=== PATIENT | female | born 1975 | race Caucasian/White ===

== ENCOUNTER → 2016-04-29 | Outpatient (CLI) | payer OTHER ==
[~2016-04-29] MED LIST: ABIL5TAB5 PO; ALBU17IN INH; ASPI81TA85 PO; BACT800T5 PO; BUPIVACAINE HCL 0.25% 30 ML VIAL As Ordered ONE; CALC250T PO; CETI10TA PO; CIPR500T3 PO; DITR1TAB PO; DOCU100C PO; DULO30CA PO; FENO145T PO; FENO150C PO; FLAG500T PO; FLON0.054; FURO20TA2 PO; GABA-279 PO; GABA-283 PO; GABA300C3 PO; GABA600T PO; INSULANT SC; ISOVUE-M 300 61% 15ML VIAL (Q9967) As Ordered ONE; LIDOCAINE 1% SDV INJ 30 ML VIAL As Ordered ONE; LOSA25TA8 PO; METF1000 PO; METF500T PO; MONT10TA2 PO; MULT1TAB8 PO; NEUR300C PO; NORCOTAB PO; PERC5TAB6 PO; PHEN15CA58 PO; RANI15TA PO; ROBA500T PO; SIMV20TA2 PO; SPIR50TA2 PO; TIOT18INH INH; TOPA50TA7 PO; TRAD5TAB PO; TRIAMCINOLONE ACETONIDE SUSP 40 MG/ML VIAL (J3301) As Ordered ONE; VITA400C29 PO; VITA500T3 PO; VITAPOW41 PO; diazePAM 5 MG TAB As Ordered ONE; oxyCODONE 5MG TAB As Ordered ONE
--- NOTE | 2016-04-29 15:14 | REP ---
Partial SI joint series: Two views. History: Bilateral SI joint injection for pain. 8 seconds of fluoroscopy time is reported. Findings: Two fluoroscopically obtained intraprocedural spot radiographs document needle position and contrast injection associated with SI joint injection procedures. Signed by Biju Bui MD 04/29/2016 04:50 P
--- NOTE | 2016-05-02 01:37 | ECWPNPC ---
PATIENT NAME: STELLA TAVERAS : 1975 GENDER: FEMALE VISIT DATE: 04/29/2016 DISCHARGE DATE: 04/29/16 1415 VISIT LOCKED DATE TIME: PHYSICIAN: AMELIA LAI RESOURCE: AMELIA LAI REASON FOR APPOINTMENT 1. BILATERAL SIJ HISTORY OF PRESENT ILLNESS HISTORY OF PRESENT ILLNESS: PAIN THE PATIENT DESCRIBES THE PAIN... FALL RISK SCREENING: SCREENING :NO FALLS IN THE PAST YEAR CURRENT MEDICATIONS TAKING ABILIFY 5 MG TABLET 1 TABLET ORALLY ONCE A DAY, NOTES: 03/19/163001-02-02 TAKING CETIRIZINE HCL 10 MG TABLET ORALLY ONCE A DAY, NOTES: 02-26-172099 TAKING CYMBALTA 90 MG CAPSULE DELAYED RELEASE PARTICLES 1 CAPSULE ORALLY 30MG CAP AND 60 MG CAP DAILY, NOTES: 04-28-162099 TAKING FLONASE 50 MCG/ACT SUSPENSION 1 SPRAY IN EACH NOSTRIL NASALLY ONCE A DAY, NOTES: 1 MONTH AGO TAKING LOSARTAN POTASSIUM 25 MG TABLET ORALLY DAILY, NOTES: 04-28-16799 TAKING MONTELUKAST SODIUM 10 MG TABLET 1 TABLET IN THE EVENING ORALLY ONCE A DAY, NOTES: 04-28-16799 TAKING DITROPAN XL 10 MG TABLET EXTENDED RELEASE 24 HOUR 1 TABLET ORALLY ONCE A DAY, NOTES: 04-28-16799 TAKING OMEPRAZOLE 40 MG CAPSULE DELAYED RELEASE 1 CAPSULE ORALLY BID, NOTES: 04-28-162099 TAKING VITAMIN B12 500 TABLET 500 MCG ORALLY DAILY, NOTES: 04-28-16799 TAKING MULTIVITAMIN 1 TABLET CHEWABLE 1 TAB(S) ORALLY DAILY, NOTES: 04-28-161829 TAKING SUMATRIPTAN SUCCINATE 50 MG TABLET 1 TABLET NEEDED ORALLY DIRECTED, NOTES: 1 YEAR TAKING CALCIUM CITRATE + 630 MG TABLET 2 TABLET WITH MEALS ORALLY TWICE A DAY, NOTES: TAKING LASIX 40 MG TABLET 1 TABLET ORALLY BID, NOTES: 04-28-16799 TAKING METFORMIN HCL 500 MG TABLET 1 TABLET WITH MEALS ORALLY TWICE A DAY, NOTES: 04-28-162099 TAKING IRON 1 TAB ORAL DAILY, NOTES: 04-28-161829 TAKING COLACE 100 MG CAPSULE 1 CAPSULE NEEDED ORALLY 3X/DAY, NOTES: 04-28-162099 TAKING GABAPENTIN 600 MG TABLET 1 CAPSULE ORALLY TID, NOTES: 04-28-162099 TAKING OXYCODONE HCL 5 MG TABLET 1 TABLET ORALLY EVERY 6 HRS PRN FOR PAIN MDD2, NOTES: 04-28-162099 TAKING NAPROXEN 500 MG TABLET 1 TABLET NEEDED ORALLY EVERY 12 HRS, NOTES: 04-28-162099 MEDICATION LIST REVIEWED AND RECONCILED WITH THE PATIENT PAST MEDICAL HISTORY DIABETES HYPERTENSION HYPERCHOLESTEREMIA OBESITY GERD (GASTROESOPHAGEAL REFLUX DISEASE) GASTRIC BYPASS ALLERGIES SULFA (FOR ALLERGY USE ONLY): RASH: ALLERGY SOCIAL HISTORY GENERAL: TOBACCO USE ARE YOU A:NONSMOKER LEARNING BARRIERS / SPECIAL NEEDS ORIENTED TO PLAN OF CARE: PATIENT, PAIN MANAGEMENT PATIENT, ORIENTED TO PLAN OF CARE: PATIENT, PAIN MANAGEMENT PATIENT. NEW PATIENT PAIN DIARY TODAY'S VISITNOTES FROM 0-10, WHAT LEVEL IS YOUR PAIN TODAY?0 PAIN CLINIC PFS, CLERGY, PUBLIC HEALTH REFERRALS PFS REFERRAL NEEDED?NO CLERGY REFERRAL NEEDED?NO PUBLIC HEALTH REFERRAL NEEDED?NO WAS THE PROVIDER NOTIFIED OF ANY PERTINENT INFO?NO PFS REFERRAL NEEDED?NO CLERGY REFERRAL NEEDED?NO PUBLIC HEALTH REFERRAL NEEDED?NO WAS THE PROVIDER NOTIFIED OF ANY PERTINENT INFO?NO REVIEW OF SYSTEMS CONSTITUTIONAL: ANY CHANGE IN YOUR MEDICAL CONDITION? NO . CHILLS NO . FEVER NO . INFECTION: DO YOU HAVE NEW INFECTIONS? NO . DO YOU HAVE HISTORY OF MRSA? NO . MUSCULOSKELETAL: ANY NEW PATTERNS OF PAIN OR NUMBNESS? NO . GASTROENTEROLOGY: ANY NEW CHANGE IN BOWEL CONTROL? NO . GENITOURINARY: ANY NEW CHANGE IN BLADDER CONTROL? NO . IS THERE A CHANCE YOU COULD BE ? NO . HEMATOLOGY/LYMPH: DO YOU TAKE ANY BLOOD THINNERS? (FOR EXAMPLE- COUMADIN, PLAVIX, AGGRENOX, PLATEL, PRADAXA, OR XARELTO) NO . WHEN WAS YOUR LAST DOSE? DATE: TIME: . NEUROLOGY: HAVE YOU FALLEN IN THE PAST 6 MONTHS? NO . ANY NEW EXTREMITY NUMBNESS OR WEAKNESS? NO . CARDIOLOGY: DO YOU HAVE A PACEMAKER OR DEFIBRILLATOR? NO . RESPIRATORY: HAVE YOU BEEN SICK IN THE PAST WEEK? NO . FEVER NO . FLU LIKE SYMPTOMS? NO . COUGH NO . INTEGUMENTARY: DO YOU HAVE ANY RASHES OR OPEN SORES? NO . ALLERGIC/IMMUNO: ARE YOU ALLERGIC TO SHELLFISH OR IV DYE? NO . ANY NEW ALLERGIES? NO . PSYCHIATRIC: DO YOU HAVE THOUGHTS OF HURTING YOURSELF OR SOMEONE ELSE? NO . ARE YOU ABUSED, NEGLECTED, OR IN AN UNSAFE ENVIRONMENT? NO . ENDOCRINOLOGY: ARE YOU DIABETIC? YES . OTHER: DO YOU NEED ANY PRESCRIPTIONS? NO . IF YES, PLEASE LIST: ____ . ANY NEW PROBLEMS WITH YOUR MEDICATIONS? NO . WHEN DID YOU LAST EAT? 04-28-16 2300 . WHEN DID YOU LAST DRINK? 04-29-16 0800 . WHAT DID YOU LAST DRINK? WATER . NAME OF PERSON DRIVING YOU HOME? PETER . DO YOU HAVE ANY OTHER QUESTIONS OR CONCERNS NO . REVIEWED BY: PROVIDER: . VITAL SIGNS WT 334.2 LBS, HT 60.5 IN, BMI 64.19 INDEX, BP 130/83 MM HG, HR 67 /MIN, RR 16 /MIN, TEMP 97.6 F, OXYGEN SAT % 96, NA INITIALS TL 1207, REVIEWED BY: CM. ASSESSMENTS SACROILIITIS, NOT ELSEWHERE CLASSIFIED - M46.1 (PRIMARY) PROCEDURES PN SI PRE PROCEDURE DIAGNOSIS SACROILIITIS, SACROILIAC JOINT DYSFUNCTION POST PROCEDURE DIAGNOSIS SACROILIITIS, SACROILIAC JOINT DYSFUNCTION PROCEDURE BILATERAL SACROILIAC JOINT BLOCK SURGEON DR. 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 I EVALUATED THE PATIENT AND REVIEWED THE CHART. I WENT OVER THE RISKS, ALTERNATIVES, AND BENEFITS ASSOCIATED WITH THIS PROCEDURE. THE PATIENT WOULD LIKE TO PROCEED AND GAVE CONSENT TO PERFORM THE PROCEDURE. THE PATIENT DENIES UNEXPLAINABLE WEIGHT LOSS, FEVER, CHILLS, OR NEW CHANGES IN URINARY OR BOWEL CONTROL DESCRIPTION OF PROCEDURE THE PATIENT WAS BROUGHT TO THE PROCEDURE ROOM AND PLACED IN THE PRONE POSITION. THE LUMBOSACRAL AREA WAS CLEANED WITH CHLORAPREP SOLUTION AND DRAPED ASEPTICALLY. THE PROCEDURE WAS DONE UNDER STERILE CONDITIONS. I CHECKED LATERALITY AND THE LEVEL WHERE THE PROCEDURE WAS GOING TO BE PERFORMED WITH THE PATIENT AND THE SUPPORTING STAFF AT THE MOMENT OF THE TIME OUT IN THE PROCEDURE ROOM. UNDER FLUOROSCOPIC GUIDANCE, TARGET POINT WAS SELECTED AT THE LOWER BORDER OF THE RIGHT AND LEFT SACROILIAC JOINT. TARGET POINT WAS SELECTED AFTER MEDIAL ROTATION AND TILT OF THE MAGNIFIER OF THE C-ARM. LIDOCAINE WAS USED TO NUMB THE SKIN AND SUBCUTANEOUS TISSUE BELOW IT. A SPINAL NEEDLE, 22-GAUGE, WAS ADVANCED UNDER FLUOROSCOPIC GUIDANCE AND FOLLOWING PATIENT FEEDBACK UNTIL THE TARGET AREA WAS TOUCHED. THE POSITION OF THE NEEDLE WAS VERIFIED WITH AP AND LATERAL VIEWS. AFTER PROPER POSITION OF THE NEEDLE WAS ACHIEVED, ISOVUE M DYE 30%, 0.25 ML, WAS INJECTED SHOWING SPREAD OF THE DYE. THEN, A SOLUTION OF 20 MG OF KENALOG WAS INJECTED IN RIGHT JOINT WITH 3 ML OF BUPIVACAINE 0.125%. THERE WAS NO EVIDENCE OF BLOOD, PARESTHESIA OR CEREBROSPINAL FLUID DURING THE PROCEDURE. THE PATIENT WAS SENT TO THE RECOVERY ROOM. THE PATIENT WAS MOVING THE EXTREMITIES AND DOING WELL. THERE WAS NO COMPLICATION DURING THE PROCEDURE. FLUOROSCOPY TIME WAS 8 SECONDS POST PROCEDURE NOTE THE PATIENT WILL BE SEEN IN A FOLLOW UP IN THE NEXT FEW WEEKS. INSTRUCTIONS WERE GIVEN, QUESTIONS WERE ANSWERED, AND THE PATIENT EXPRESSED UNDERSTANDING AND AGREED WITH THE PLAN. I, RAQUEL SONI, DOCUMENTED THE ABOVE INFORMATION ACTING A SCRIBE FOR DR. LAI. I, DR. LAI, HAVE REVIEWED THE ABOVE DOCUMENT, SCRIBED BY RAQUEL SONI, AND I VERIFY THAT IT IS [facility]NO[facility] FLUORO GUIDANCE (PAIN)[id number] PROCEDURE CODES 07362 INJECT SACROILIAC JOINT 6045F RADXPS IN END [id number] PXD FOLLOW UP 3 WEEKS ELECTRONICALLY SIGNED BY AMELIA LAI MD ON 05/01/2016 AT 06:55 PM EST DISCLAIMER : THIS IS A VISIT SUMMARY EXTRACTED FROM THE [employer] CHART. IT IS NOT A COPY OF THE [employer] PROGRESS NOTE. JUSTUS
== END ==
LOC: M PAIN 10:50
PROVIDERS: ATTEND Anesthesiology
DX: G89.29 Other chronic pain (principal); M46.1 Sacroiliitis, not elsewhere classified; M54.5 Low back pain; Z79.891 Long term (current) use of opiate analgesic; Z79.899 Other long term (current) drug therapy; Z79.84 Long term (current) use of oral hypoglycemic drugs; E11.9 Type 2 diabetes mellitus without complications; I10 Essential (primary) hypertension; E78.00 Pure hypercholesterolemia, unspecified; E66.9 Obesity, unspecified; K21.9 Gastro-esophageal reflux disease without esophagitis; Z98.84 Bariatric surgery status; Z88.2 Allergy status to sulfonamides
CPT/HCPCS: G0260; J3301; Q9967

== ENCOUNTER 2016-05-12 11:15 | Outpatient (RCR) | payer OTHER ==
[~2016-05-12 11:15] MED LIST changes: -BUPIVACAINE HCL 0.25% 30 ML VIAL As Ordered ONE; -ISOVUE-M 300 61% 15ML VIAL (Q9967) As Ordered ONE; -LIDOCAINE 1% SDV INJ 30 ML VIAL As Ordered ONE; -TRIAMCINOLONE ACETONIDE SUSP 40 MG/ML VIAL (J3301) As Ordered ONE; -diazePAM 5 MG TAB As Ordered ONE; -oxyCODONE 5MG TAB As Ordered ONE
== END 2016-05-19 ==
LOC: M PT 11:15
PROVIDERS: ATTEND Nurse Practitioner Family
DX: Z51.89 Encounter for other specified aftercare (principal); M46.1 Sacroiliitis, not elsewhere classified; M54.5 Low back pain
CPT/HCPCS: 97010; 97035; 97110; G0283

== ENCOUNTER → 2016-05-21 | Outpatient (CLI) | payer OTHER ==
--- NOTE | 2016-05-23 00:55 | ECWPNPC ---
PATIENT NAME: STELLA TAVERAS : 1975 GENDER: FEMALE VISIT DATE: 05/21/2016 DISCHARGE DATE: 05/21/16 1054 VISIT LOCKED DATE TIME: PHYSICIAN: PATRICIA MCNAMARA RESOURCE: PATRICIA MCNAMARA REASON FOR APPOINTMENT 1. POST PROCEDURE-BACK HISTORY OF PRESENT ILLNESS HISTORY OF PRESENT ILLNESS: HERE FOR POST PROC. F/U.HAD BILAT. SIJ ON 04-29-16.REPORTS >50% IMPROVEMENT IN LBP THAT CONTINUES TODAY.CHIEF AREA OF PAIN IS NECK.HAS RESPONDED TO TPI IN PAST.RATING PAIN IN NECK 10/26. PAIN THE PATIENT DESCRIBES THE PAIN... THE PATIENT DESCRIBES THE PAIN... FALL RISK SCREENING: SCREENING :NO FALLS IN THE PAST YEAR :NO FALLS IN THE PAST YEAR SCREENING :NO FALLS IN THE PAST YEAR :NO FALLS IN THE PAST YEAR CURRENT MEDICATIONS TAKING ABILIFY 5 MG TABLET 1 TABLET ORALLY ONCE A DAY, NOTES: 03/19/163001-02-02 TAKING CETIRIZINE HCL 10 MG TABLET ORALLY ONCE A DAY, NOTES: 02-26-172099 TAKING CYMBALTA 90 MG CAPSULE DELAYED RELEASE PARTICLES 1 CAPSULE ORALLY 30MG CAP AND 60 MG CAP DAILY, NOTES: 04-28-162099 TAKING FLONASE 50 MCG/ACT SUSPENSION 1 SPRAY IN EACH NOSTRIL NASALLY ONCE A DAY, NOTES: 1 MONTH AGO TAKING LOSARTAN POTASSIUM 25 MG TABLET ORALLY DAILY, NOTES: 04-28-16799 TAKING MONTELUKAST SODIUM 10 MG TABLET 1 TABLET IN THE EVENING ORALLY ONCE A DAY, NOTES: 04-28-16799 TAKING DITROPAN XL 10 MG TABLET EXTENDED RELEASE 24 HOUR 1 TABLET ORALLY ONCE A DAY, NOTES: 04-28-16799 TAKING OMEPRAZOLE 40 MG CAPSULE DELAYED RELEASE 1 CAPSULE ORALLY BID, NOTES: 04-28-162099 TAKING VITAMIN B12 500 TABLET 500 MCG ORALLY DAILY, NOTES: 04-28-16799 TAKING MULTIVITAMIN 1 TABLET CHEWABLE 1 TAB(S) ORALLY DAILY, NOTES: 04-28-161829 TAKING SUMATRIPTAN SUCCINATE 50 MG TABLET 1 TABLET NEEDED ORALLY DIRECTED, NOTES: 1 YEAR TAKING CALCIUM CITRATE + 630 MG TABLET 2 TABLET WITH MEALS ORALLY TWICE A DAY, NOTES: TAKING LASIX 40 MG TABLET 1 TABLET ORALLY BID, NOTES: 04-28-16 0800 TAKING METFORMIN HCL 500 MG TABLET 1 TABLET WITH MEALS ORALLY TWICE A DAY, NOTES: 04-28-162099 TAKING IRON 1 TAB ORAL DAILY, NOTES: 04-28-16 1830 TAKING COLACE 100 MG CAPSULE 1 CAPSULE NEEDED ORALLY 3X/DAY, NOTES: 04-28-162099 TAKING GABAPENTIN 600 MG TABLET 1 CAPSULE ORALLY TID, NOTES: 04-28-162099 TAKING OXYCODONE HCL 5 MG TABLET 1 TABLET ORALLY EVERY 6 HRS PRN FOR PAIN MDD2, NOTES: 04-28-162099 TAKING NAPROXEN 500 MG TABLET 1 TABLET NEEDED ORALLY EVERY 12 HRS, NOTES: 04-28-162099 MEDICATION LIST REVIEWED AND RECONCILED WITH THE PATIENT PAST MEDICAL HISTORY DIABETES HYPERTENSION HYPERCHOLESTEREMIA OBESITY GERD (GASTROESOPHAGEAL REFLUX DISEASE) GASTRIC BYPASS ALLERGIES SULFA (FOR ALLERGY USE ONLY): RASH: ALLERGY SOCIAL HISTORY GENERAL: TOBACCO USE PATIENT COUNSELED ON THE DANGERS OF TOBACCO USE AND URGED TO QUIT: COUNCELED ON THE IMPORTANCE OF QUITTING. PATIENT COUNSELED ON THE DANGERS OF TOBACCO USE AND URGED TO QUIT: COUNCELED ON THE IMPORTANCE OF QUITTING. LEARNING BARRIERS / SPECIAL NEEDS ORIENTED TO PLAN OF CARE: PATIENT, PAIN MANAGEMENT PATIENT, ORIENTED TO PLAN OF CARE: PATIENT, PAIN MANAGEMENT PATIENT, ORIENTED TO PLAN OF CARE: PATIENT, PAIN MANAGEMENT PATIENT, ORIENTED TO PLAN OF CARE: PATIENT, PAIN MANAGEMENT PATIENT. NEW PATIENT PAIN DIARY TODAY'S VISITNOTES FROM 0-10, WHAT LEVEL IS YOUR PAIN TODAY?0 TODAY'S VISITNOTES FROM 0-10, WHAT LEVEL IS YOUR PAIN TODAY?0 PAIN CLINIC PFS, CLERGY, PUBLIC HEALTH REFERRALS PFS REFERRAL NEEDED?NO CLERGY REFERRAL NEEDED?NO PUBLIC HEALTH REFERRAL NEEDED?NO WAS THE PROVIDER NOTIFIED OF ANY PERTINENT INFO?NO PFS REFERRAL NEEDED?NO CLERGY REFERRAL NEEDED?NO PUBLIC HEALTH REFERRAL NEEDED?NO WAS THE PROVIDER NOTIFIED OF ANY PERTINENT INFO?NO PFS REFERRAL NEEDED?NO CLERGY REFERRAL NEEDED?NO PUBLIC HEALTH REFERRAL NEEDED?NO WAS THE PROVIDER NOTIFIED OF ANY PERTINENT INFO?NO PFS REFERRAL NEEDED?NO CLERGY REFERRAL NEEDED?NO PUBLIC HEALTH REFERRAL NEEDED?NO WAS THE PROVIDER NOTIFIED OF ANY PERTINENT INFO?NO REVIEW OF SYSTEMS CONSTITUTIONAL: ANY CHANGE IN YOUR MEDICAL CONDITION? NO, NO . CHILLS NO, NO . FEVER NO, NO . INFECTION: DO YOU HAVE NEW INFECTIONS? NO, NO . DO YOU HAVE HISTORY OF MRSA? YES CSECTION INCISSION 2009, NO . MUSCULOSKELETAL: ANY NEW PATTERNS OF PAIN OR NUMBNESS? NO, NO . GASTROENTEROLOGY: ANY NEW CHANGE IN BOWEL CONTROL? NO, NO . GENITOURINARY: ANY NEW CHANGE IN BLADDER CONTROL? NO, NO . IS THERE A CHANCE YOU COULD BE ? NO, NO . HEMATOLOGY/LYMPH: DO YOU TAKE ANY BLOOD THINNERS? (FOR EXAMPLE- COUMADIN, PLAVIX, AGGRENOX, PLATEL, PRADAXA, OR XARELTO) NO, NO . WHEN WAS YOUR LAST DOSE? DATE: TIME: , DATE: TIME: . NEUROLOGY: HAVE YOU FALLEN IN THE PAST 6 MONTHS? NO, NO . ANY NEW EXTREMITY NUMBNESS OR WEAKNESS? NO, NO . CARDIOLOGY: DO YOU HAVE A PACEMAKER OR DEFIBRILLATOR? NO, NO . RESPIRATORY: HAVE YOU BEEN SICK IN THE PAST WEEK? NO, NO . FEVER NO, NO . FLU LIKE SYMPTOMS? NO, NO . COUGH NO, NO . INTEGUMENTARY: DO YOU HAVE ANY RASHES OR OPEN SORES? NO, NO . ALLERGIC/IMMUNO: ARE YOU ALLERGIC TO SHELLFISH OR IV DYE? NO, NO . ANY NEW ALLERGIES? NO, NO . PSYCHIATRIC: DO YOU HAVE THOUGHTS OF HURTING YOURSELF OR SOMEONE ELSE? NO, NO . ARE YOU ABUSED, NEGLECTED, OR IN AN UNSAFE ENVIRONMENT? NO, NO . ENDOCRINOLOGY: ARE YOU DIABETIC? YES FSBS THIS A.M. 133, NO . OTHER: DO YOU NEED ANY PRESCRIPTIONS? NOT SURE IF SHE NEEDS GABAPENTIN, NO . IF YES, PLEASE LIST: ____, ____ . ANY NEW PROBLEMS WITH YOUR MEDICATIONS? NO, NO . WHEN DID YOU LAST EAT? ____, ____ . WHEN DID YOU LAST DRINK? ____, ____ . WHAT DID YOU LAST DRINK? ____, ____ . NAME OF PERSON DRIVING YOU HOME? ____, ____ . DO YOU HAVE ANY OTHER QUESTIONS OR CONCERNS NO, NO . REVIEWED BY: PROVIDER: , PATRICIA ROTHMAN . VITAL SIGNS WT 341.8 LBS, HT 60.5 IN, BMI 65.65 INDEX, BP 120/77 MM HG, HR 73 /MIN, RR 18 /MIN, TEMP 97.9 F, OXYGEN SAT % 98, NA INITIALS MP, REVIEWED BY: AD. EXAMINATION CERVICAL SPINE/NECK: RANGE OF MOTION OF NECK:NORMAL IN ALL DIRECTIONS. MOTOR STRENGTH:NORMAL. TRAPEZIUS TENDERNESS:PRESENT BILATERALLY. MYOFASCIAL TRIGGER POINTS:POSITIVE OVER TRAPEZIUS BILATERALLY. GENERAL EXAMINATION: LUNGS:LUNG SOUNDS ARE CLEAR. HEART:HEART RATE REGULAR. MUSCULOSKELETAL:*, MUSCLE STRENGTH TESTING 5/5 BILATERAL, PALPATION: POSITIVE FOR PAIN OVER L/S SPINE. POSITIVE FOR PAIN OVER L/S PARSPINALS.SPECIFIC POINT TENDERNESS BILAT SIJ. DIAGNOSTIC: . 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 PROCEDURE CODES FA211 ESTABILISHED PATIENT [facility] CHARGE FOLLOW UP 2WK POST (REASON: TPI NECK) ELECTRONICALLY SIGNED BY STEPHAN SHAH ON 05/22/2016 AT 02:41 PM EST DISCLAIMER : THIS IS A VISIT SUMMARY EXTRACTED FROM THE [employer] CHART. IT IS NOT A COPY OF THE [employer] PROGRESS NOTE. JUSTUS
== END ==
LOC: M PAIN 09:40
PROVIDERS: ATTEND Nurse Practitioner Family
DX: Z09 Encounter for follow-up examination after completed treatment for conditions other than malignant neoplasm (principal); G89.29 Other chronic pain; M43.02 Spondylolysis, cervical region; M54.42 Lumbago with sciatica, left side; M53.3 Sacrococcygeal disorders, not elsewhere classified; E11.9 Type 2 diabetes mellitus without complications; I10 Essential (primary) hypertension; E78.00 Pure hypercholesterolemia, unspecified; E66.9 Obesity, unspecified; Z68.44 Body mass index [BMI] 60.0-69.9, adult; K21.9 Gastro-esophageal reflux disease without esophagitis; Z88.2 Allergy status to sulfonamides; F17.200 Nicotine dependence, unspecified, uncomplicated; Z79.84 Long term (current) use of oral hypoglycemic drugs; Z79.891 Long term (current) use of opiate analgesic; Z79.899 Other long term (current) drug therapy; Z98.84 Bariatric surgery status

== ENCOUNTER → 2016-05-29 | Outpatient (CLI) | payer OTHER ==
[2016-05-29 10:44] LABS: BASO % 0.3 % (0.0-1.0); EOS # 0.6 K/mm3 (0.0-0.50); EOS % 5.3 % (0.0-3.0); LARGE UNSTAINED CELL # 0.3 K/mm3 (0.0-0.4); LARGE UNSTAINED CELL % 2.4 % (0.0-4.0); LYMPH # 3.9 K/mm3 (1.5-4.5); LYMPH % 30.9 % (24.0-44.0); MEAN CORPUSCULAR HEMOGLOBIN 29.8 pg (27.0-33.0); MEAN CORPUSCULAR HGB CONC 31.7 g/dl (32.0-36.5); MONO # 0.5 K/mm3 (0.0-0.8); MONO % 4.5 % (0.0-5.0); NEUTROPHILS # 6.6 K/mm3 (1.8-7.7); NEUTROPHILS % 56.5 % (36.0-66.0); PLATELET COUNT, AUTOMATED 351 k/mm3 (150-450); RED CELL DISTRIBUTION WIDTH 14.1 % (11.5-14.5); WHITE BLOOD COUNT 11.7 K/mm3 (4.0-10.0)
[2016-05-29 11:04] LABS: ALBUMIN 3.3 GM/DL (3.2-5.2); ALKALINE PHOSPHATASE 114 U/L (45-117); ALT/SGPT 36 U/L (12-78); ANION GAP 8 MEQ/L (8-16); AST/SGOT 18 U/L (15-37); BILIRUBIN,TOTAL 0.3 MG/DL (0.2-1.0); BLOOD UREA NITROGEN 13 MG/DL (7-18); CALCIUM LEVEL 8.7 MG/DL (8.5-10.1); CARBON DIOXIDE LEVEL 27 MEQ/L (21-32); CHLORIDE LEVEL 109 MEQ/L (98-107); CREATININE FOR GFR 0.78 MG/DL (0.55-1.02); FERRITIN 53 NG/ML (8-252); GLOMERULAR FILTRATION RATE > 60.0 (>58); GLUCOSE, FASTING 154 MG/DL (70-105); MAGNESIUM LEVEL 2.1 MG/DL (1.8-2.4); PERCENT SATURATION 21.4 % (13.2-37.4); PHOSPHORUS LEVEL 2.6 MG/DL (2.5-4.9); POTASSIUM SERUM 4.4 MEQ/L (3.5-5.1); SODIUM LEVEL 144 MEQ/L (136-145); TOTAL IRON BINDING CAPACITY 299 UG/DL (250-450); TOTAL PROTEIN 6.6 GM/DL (6.4-8.2)
[2016-05-29 11:25] LABS: VITAMIN B12 LEVEL 1422 PG/ML (247-911)
[2016-05-29 12:58] LABS: PRETREATED FOLATE FOR RBCFOL 16.8 NG/ML
== END ==
LOC: M LAB 10:10
PROVIDERS: ATTEND Surgery
DX: K91.2 Postsurgical malabsorption, not elsewhere classified (principal); Z98.84 Bariatric surgery status; E55.9 Vitamin D deficiency, unspecified

== ENCOUNTER 2016-06-05 08:30 | Outpatient (RCR) | payer OTHER | END 2016-06-16 | LOC: M PT 08:30 | PROVIDERS: ATTEND Nurse Practitioner Family | DX: Z51.89 Encounter for other specified aftercare (principal); M54.5 Low back pain ==

== ENCOUNTER → 2016-06-16 | Outpatient (CLI) | payer OTHER ==
[~2016-06-16] MED LIST changes: +BUPIVACAINE HCL 0.25% 10 ML VIAL As Ordered ONE; +BUPIVACAINE HCL 0.25% 30 ML VIAL As Ordered ONE; +diazePAM 5 MG TAB As Ordered ONE; +oxyCODONE 5MG TAB As Ordered ONE
--- NOTE | 2016-06-20 23:29 | ECWPNPC ---
PATIENT NAME: STELLA TAVERAS : 1975 GENDER: FEMALE VISIT DATE: 06/16/2016 DISCHARGE DATE: 06/16/16 1318 VISIT LOCKED DATE TIME: PHYSICIAN: AMELIA LAI RESOURCE: AMELIA LAI REASON FOR APPOINTMENT 1. TPI, NECK HISTORY OF PRESENT ILLNESS HISTORY OF PRESENT ILLNESS: PAIN THE PATIENT DESCRIBES THE PAIN... FALL RISK SCREENING: SCREENING :NO FALLS IN THE PAST YEAR CURRENT MEDICATIONS TAKING ABILIFY 5 MG TABLET 1 TABLET ORALLY ONCE A DAY, NOTES: 06/15/16 TAKING CETIRIZINE HCL 10 MG TABLET ORALLY ONCE A DAY, NOTES: 06/15/16 TAKING CYMBALTA 90 MG CAPSULE DELAYED RELEASE PARTICLES 1 CAPSULE ORALLY 30MG CAP AND 60 MG CAP DAILY, NOTES: 06/15/16 TAKING FLONASE 50 MCG/ACT SUSPENSION 1 SPRAY IN EACH NOSTRIL NASALLY ONCE A DAY, NOTES: 3 MONTHS AGO TAKING LOSARTAN POTASSIUM 25 MG TABLET ORALLY DAILY, NOTES: 06/16/16 TAKING MONTELUKAST SODIUM 10 MG TABLET 1 TABLET IN THE EVENING ORALLY ONCE A DAY, NOTES: 06/16/16 TAKING DITROPAN XL 10 MG TABLET EXTENDED RELEASE 24 HOUR 1 TABLET ORALLY ONCE A DAY, NOTES: 06/16/16 TAKING OMEPRAZOLE 40 MG CAPSULE DELAYED RELEASE 1 CAPSULE ORALLY BID, NOTES: 06/15/16 TAKING VITAMIN B12 500 TABLET 500 MCG ORALLY DAILY, NOTES: 06/15/16@699 TAKING MULTIVITAMIN 1 TABLET CHEWABLE 1 TAB(S) ORALLY DAILY, NOTES: 06/15/16@1729 TAKING SUMATRIPTAN SUCCINATE 50 MG TABLET 1 TABLET NEEDED ORALLY DIRECTED, NOTES: 1 YEAR TAKING CALCIUM CITRATE + 630 MG TABLET 2 TABLET WITH MEALS ORALLY TWICE A DAY, NOTES: 06/15/16@1729 TAKING LASIX 40 MG TABLET 1 TABLET ORALLY BID, NOTES: 06/15/16@999 TAKING METFORMIN HCL 500 MG TABLET 1 TABLET WITH MEALS ORALLY TWICE A DAY, NOTES: 06/15/16 TAKING IRON 1 TAB ORAL DAILY, NOTES: 06/15/16@1729 TAKING COLACE 100 MG CAPSULE 1 CAPSULE NEEDED ORALLY 3X/DAY, NOTES: 06/16/16 TAKING GABAPENTIN 600 MG TABLET 1 CAPSULE ORALLY TID, NOTES: 06/16/16@0700 TAKING OXYCODONE HCL 5 MG TABLET 1 TABLET ORALLY EVERY 6 HRS PRN FOR PAIN MDD2, NOTES: 1 WEEK AGO TAKING LYRICA 100 MG CAPSULE 1 CAPSULE ORALLY TWICE A DAY MDD2, NOTES: HASNT TAKEN DISCONTINUED NAPROXEN 500 MG TABLET 1 TABLET NEEDED ORALLY EVERY 12 HRS MEDICATION LIST REVIEWED AND RECONCILED WITH THE PATIENT PAST MEDICAL HISTORY DIABETES HYPERTENSION HYPERCHOLESTEREMIA OBESITY GERD (GASTROESOPHAGEAL REFLUX DISEASE) GASTRIC BYPASS ALLERGIES SULFA (FOR ALLERGY USE ONLY): RASH: ALLERGY NSAIDS: GASTRIC BYPASS: CONTRAINDICATION SOCIAL HISTORY GENERAL: TOBACCO USE ARE YOU A:CURRENT SMOKER PATIENT COUNSELED ON THE DANGERS OF TOBACCO USE AND URGED TO QUIT:06/16/2016 ARE YOU INTERESTED IN QUITTING?READY TO QUIT COUNSELED THE PATIENT ON TOBACCO USE, CESSATION [id number] LEARNING BARRIERS / SPECIAL NEEDS ORIENTED TO PLAN OF CARE: PATIENT, PAIN MANAGEMENT PATIENT, ORIENTED TO PLAN OF CARE: PATIENT, PAIN MANAGEMENT PATIENT, ORIENTED TO PLAN OF CARE: PATIENT, PAIN MANAGEMENT PATIENT. NEW PATIENT PAIN DIARY TODAY'S VISITNOTES FROM 0-10, WHAT LEVEL IS YOUR PAIN TODAY?0 PAIN CLINIC PFS, CLERGY, PUBLIC HEALTH REFERRALS PFS REFERRAL NEEDED?NO CLERGY REFERRAL NEEDED?NO PUBLIC HEALTH REFERRAL NEEDED?NO WAS THE PROVIDER NOTIFIED OF ANY PERTINENT INFO?NO PFS REFERRAL NEEDED?NO CLERGY REFERRAL NEEDED?NO PUBLIC HEALTH REFERRAL NEEDED?NO WAS THE PROVIDER NOTIFIED OF ANY PERTINENT INFO?NO PFS REFERRAL NEEDED?NO CLERGY REFERRAL NEEDED?NO PUBLIC HEALTH REFERRAL NEEDED?NO WAS THE PROVIDER NOTIFIED OF ANY PERTINENT INFO?NO REVIEW OF SYSTEMS CONSTITUTIONAL: ANY CHANGE IN YOUR MEDICAL CONDITION? NO . CHILLS NO . FEVER NO . INFECTION: DO YOU HAVE NEW INFECTIONS? NO . DO YOU HAVE HISTORY OF MRSA? NO . MUSCULOSKELETAL: ANY NEW PATTERNS OF PAIN OR NUMBNESS? NO . GASTROENTEROLOGY: ANY NEW CHANGE IN BOWEL CONTROL? NO . GENITOURINARY: ANY NEW CHANGE IN BLADDER CONTROL? NO . IS THERE A CHANCE YOU COULD BE ? NO . HEMATOLOGY/LYMPH: DO YOU TAKE ANY BLOOD THINNERS? (FOR EXAMPLE- COUMADIN, PLAVIX, AGGRENOX, PLATEL, PRADAXA, OR XARELTO) NO . WHEN WAS YOUR LAST DOSE? DATE: TIME: . NEUROLOGY: HAVE YOU FALLEN IN THE PAST 6 MONTHS? NO . ANY NEW EXTREMITY NUMBNESS OR WEAKNESS? NO . CARDIOLOGY: DO YOU HAVE A PACEMAKER OR DEFIBRILLATOR? NO . RESPIRATORY: HAVE YOU BEEN SICK IN THE PAST WEEK? NO . FEVER NO . FLU LIKE SYMPTOMS? NO . COUGH NO . INTEGUMENTARY: DO YOU HAVE ANY RASHES OR OPEN SORES? NO . ALLERGIC/IMMUNO: ARE YOU ALLERGIC TO SHELLFISH OR IV DYE? NO . ANY NEW ALLERGIES? NO . PSYCHIATRIC: DO YOU HAVE THOUGHTS OF HURTING YOURSELF OR SOMEONE ELSE? NO . ARE YOU ABUSED, NEGLECTED, OR IN AN UNSAFE ENVIRONMENT? NO . ENDOCRINOLOGY: ARE YOU DIABETIC? YES . OTHER: DO YOU NEED ANY PRESCRIPTIONS? NO . IF YES, PLEASE LIST: ____ . ANY NEW PROBLEMS WITH YOUR MEDICATIONS? NO . WHEN DID YOU LAST EAT? ____06/15/16 . WHEN DID YOU LAST DRINK? ____0001 . WHAT DID YOU LAST DRINK? ____WATER . NAME OF PERSON DRIVING YOU HOME? ____PETE . DO YOU HAVE ANY OTHER QUESTIONS OR CONCERNS NO . REVIEWED BY: PROVIDER: . VITAL SIGNS WT 336.0 LBS, HT 60.5 IN, BMI 64.53 INDEX, BP 121/68 MM HG, HR 90 /MIN, RR 16 /MIN, TEMP 96.8 F, OXYGEN SAT % 97%, NA INITIALS SC 10:57, REVIEWED BY: VD. ASSESSMENTS MYALGIA - M79.1 (PRIMARY) PROCEDURES PN TRIGGER POINT INJECTION NO STEROIDS DATE OF PROCEDURE : PRE PROCEDURE DIAGNOSIS 1. MYALGIA 2. PAIN AT BILATERAL THORACIC AREA AND BILATERAL LUMBAR AREA POST PROCEDURE DIAGNOSIS 1. MYALGIA 2. PAIN AT BILATERAL THORACIC AREA AND BILATERAL LUMBAR AREA PROCEDURE TRIGGER POINT INJECTION AT BILATERAL THORACIC AREA AND BILATERAL LUMBAR AREA SURGEON DR. AMELIA LAI PET GROOMER NONE ANESTHESIA LOCAL PRE PROCEDURE NOTE 41 YEAR-OLD PATIENT WITH HISTORY OF CHRONIC BACK PAIN. I EVALUATED THE PATIENT AND REVIEWED THE CHART. THERE IS EVIDENCE OF BANDS OF TISSUE WITH RESTRICTION OF MOVEMENT AND PRESENCE OF TRIGGER POINT AT THE AFFECTED AREA. I WENT OVER THE RISKS, ALTERNATIVES, AND BENEFITS ASSOCIATED WITH THIS PROCEDURE. THE PATIENT WOULD LIKE TO PROCEED AND GAVE CONSENT TO PERFORM THE PROCEDURE. THE PATIENT DENIES UNEXPLAINABLE WEIGHT LOSS, FEVER, CHILLS, OR NEW CHANGES IN URINARY OR BOWEL CONTROL. DESCRIPTION OF PROCEDURE THE PATIENT WAS BROUGHT TO THE PROCEDURE ROOM AND PLACED IN THE SITTING POSITION. THE AREA WAS CLEANED WITH ALCOHOL. THE PROCEDURE WAS DONE USING ASEPTIC STERILE TECHNIQUES. I CHECKED LATERALITY AND THE LEVEL WHERE THE PROCEDURE WAS GOING TO BE PERFORMED WITH THE PATIENT AND THE SUPPORTING STAFF AT THE MOMENT OF THE TIME OUT IN THE PROCEDURE ROOM. USING A 25-GAUGE NEEDLE, TRIGGER POINTS WERE INJECTED AT THE RIGHT AND LEFT THORACIC AREA AND RIGHT AND LEFT LUMBAR AREA WITH A TOTAL OF 40 ML OF BUPIVACAINE 0.25%. AGREED WITH THE PATIENT THE PROCEDURE WAS DONE WITHOUT STEROIDS. THERE WAS NO EVIDENCE OF BLOOD, PARESTHESIA OR CEREBROSPINAL FLUID DURING THE PROCEDURE. THE PATIENT WAS SENT TO THE RECOVERY ROOM. THE PATIENT WAS MOVING THE EXTREMITIES AND DOING WELL. THERE WAS NO COMPLICATION DURING THE PROCEDURE. POST PROCEDURE NOTE THE PATIENT WILL BE SEEN IN A FOLLOW UP IN THE NEXT FEW WEEKS. INSTRUCTIONS WERE GIVEN, QUESTIONS WERE ANSWERED, AND THE PATIENT EXPRESSED UNDERSTANDING AND AGREED WITH THE PLAN. INSTRUCTIONS WERE GIVEN, QUESTIONS WERE ANSWERED, PATIENT REPORTS UNDERSTANDING AND AGREES WITH THE PLAN. I, TRES NAYAK, DOCUMENTED THE ABOVE INFORMATION ACTING A SCRIBE FOR DR. LAI. I HAVE REVIEWED THE ABOVE DOCUMENT, WRITTEN BY TRES NAYAK SCRIBManohar AND I VERIFY THAT IT IS ACCURATE. PROCEDURE CODES 73920 INJ TRIGGER POINT 1/2 MUSCL 12675 INJECT TRIGGER POINTS 3/> DISPOSITION & COMMUNICATION FOLLOW UP 3 WEEKS ELECTRONICALLY SIGNED BY AMELIA LAI MD ON 06/20/2016 AT 04:27 PM EST DISCLAIMER : THIS IS A VISIT SUMMARY EXTRACTED FROM THE [employer] CHART. IT IS NOT A COPY OF THE [employer] PROGRESS NOTE. MTDD
== END ==
LOC: M PAIN 11:10
PROVIDERS: ATTEND Anesthesiology
DX: G89.29 Other chronic pain (principal); M79.1 Myalgia; M54.6 Pain in thoracic spine; M54.5 Low back pain; E11.9 Type 2 diabetes mellitus without complications; I10 Essential (primary) hypertension; E78.00 Pure hypercholesterolemia, unspecified; E66.9 Obesity, unspecified; Z68.44 Body mass index [BMI] 60.0-69.9, adult; K21.9 Gastro-esophageal reflux disease without esophagitis; Z88.2 Allergy status to sulfonamides; Z88.6 Allergy status to analgesic agent; Z79.84 Long term (current) use of oral hypoglycemic drugs; Z79.891 Long term (current) use of opiate analgesic; Z79.899 Other long term (current) drug therapy; Z98.84 Bariatric surgery status

== ENCOUNTER → 2016-06-29 | Outpatient (CLI) | payer OTHER ==
[~2016-06-29] MED LIST changes: -BUPIVACAINE HCL 0.25% 10 ML VIAL As Ordered ONE; -BUPIVACAINE HCL 0.25% 30 ML VIAL As Ordered ONE; -diazePAM 5 MG TAB As Ordered ONE; -oxyCODONE 5MG TAB As Ordered ONE
--- NOTE | 2016-06-30 01:14 | ECWPNPC ---
PATIENT NAME: STELLA TAVERAS : 1975 GENDER: FEMALE VISIT DATE: 06/29/2016 DISCHARGE DATE: 06/29/16 1007 VISIT LOCKED DATE TIME: PHYSICIAN: PATRICIA MCNAMARA RESOURCE: PATRICIA MCNAMARA REASON FOR APPOINTMENT 1. POST PROC HISTORY OF PRESENT ILLNESS HISTORY OF PRESENT ILLNESS: HERE FOR POST PROC. F/U.HAD TPI NECK ON 06-16-16.REPORTS >50% IMPROVEMENT IN PAIN IN NECK AREA THAT CONTINUES TODAY.CHIEF AREA OF PAIN IS RIGHT LOW BACK AND HAS INTERMITTENT RIGHT LEG PAIN.REVIEWED MRI L/S SPINE 10-22-14.THIS SHOWS MULTI LEVEL DISC PROTRUSION W SPINAL STENOSIS.DISCUSSED TREATMENT OPTIONS.RATING LBP 10/10 VAS.PAIN IS WORSE IN AM.DOES REPORT 10# WEIGHT GAIN PAST 2-3 MONTHS. PAIN THE PATIENT DESCRIBES THE PAIN... FALL RISK SCREENING: SCREENING :NO FALLS IN THE PAST YEAR CURRENT MEDICATIONS TAKING ABILIFY 5 MG TABLET 1 TABLET ORALLY ONCE A DAY TAKING CETIRIZINE HCL 10 MG TABLET ORALLY ONCE A DAY TAKING CYMBALTA 90 MG CAPSULE DELAYED RELEASE PARTICLES 1 CAPSULE ORALLY 30MG CAP AND 60 MG CAP DAILY TAKING FLONASE 50 MCG/ACT SUSPENSION 1 SPRAY IN EACH NOSTRIL NASALLY ONCE A DAY TAKING LOSARTAN POTASSIUM 25 MG TABLET ORALLY DAILY TAKING MONTELUKAST SODIUM 10 MG TABLET 1 TABLET IN THE EVENING ORALLY ONCE A DAY TAKING DITROPAN XL 10 MG TABLET EXTENDED RELEASE 24 HOUR 1 TABLET ORALLY ONCE A DAY TAKING OMEPRAZOLE 40 MG CAPSULE DELAYED RELEASE 1 CAPSULE ORALLY BID TAKING VITAMIN B12 500 TABLET 500 MCG ORALLY DAILY TAKING MULTIVITAMIN 1 TABLET CHEWABLE 1 TAB(S) ORALLY DAILY TAKING SUMATRIPTAN SUCCINATE 50 MG TABLET 1 TABLET NEEDED ORALLY DIRECTED TAKING CALCIUM CITRATE + 630 MG TABLET 2 TABLET WITH MEALS ORALLY TWICE A DAY TAKING LASIX 40 MG TABLET 1 TABLET ORALLY BID TAKING METFORMIN HCL 500 MG TABLET 1 TABLET WITH MEALS ORALLY TWICE A DAY TAKING IRON 1 TAB ORAL DAILY TAKING COLACE 100 MG CAPSULE 1 CAPSULE NEEDED ORALLY 3X/DAY TAKING GABAPENTIN 600 MG TABLET 1 CAPSULE ORALLY TID TAKING OXYCODONE HCL 5 MG TABLET 1 TABLET ORALLY EVERY 6 HRS PRN FOR PAIN MDD2 TAKING LYRICA 100 MG CAPSULE 1 CAPSULE ORALLY TWICE A DAY MDD2, NOTES: HASNT TAKEN MEDICATION LIST REVIEWED AND RECONCILED WITH THE PATIENT PAST MEDICAL HISTORY DIABETES HYPERTENSION HYPERCHOLESTEREMIA OBESITY GERD (GASTROESOPHAGEAL REFLUX DISEASE) GASTRIC BYPASS ALLERGIES SULFA (FOR ALLERGY USE ONLY): RASH: ALLERGY NSAIDS: GASTRIC BYPASS: CONTRAINDICATION SOCIAL HISTORY GENERAL: TOBACCO USE ARE YOU A: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 NEW PATIENT PAIN DIARY TODAY'S VISITNOTES FROM 0-10, WHAT LEVEL IS YOUR PAIN TODAY?0 PAIN CLINIC PFS, CLERGY, PUBLIC HEALTH REFERRALS PFS REFERRAL NEEDED?NO CLERGY REFERRAL NEEDED?NO PUBLIC HEALTH REFERRAL NEEDED?NO WAS THE PROVIDER NOTIFIED OF ANY PERTINENT INFO?NO PFS REFERRAL NEEDED?NO CLERGY REFERRAL NEEDED?NO PUBLIC HEALTH REFERRAL NEEDED?NO WAS THE PROVIDER NOTIFIED OF ANY PERTINENT INFO?NO REVIEW OF SYSTEMS CONSTITUTIONAL: ANY CHANGE IN YOUR MEDICAL CONDITION? NO . CHILLS NO . FEVER NO . INFECTION: DO YOU HAVE NEW INFECTIONS? NO . DO YOU HAVE HISTORY OF MRSA? NO . MUSCULOSKELETAL: ANY NEW PATTERNS OF PAIN OR NUMBNESS? YES, MORE PAIN DOWN RIGHT LEG INTO FOOT . GASTROENTEROLOGY: ANY NEW CHANGE IN BOWEL CONTROL? NO . GENITOURINARY: ANY NEW CHANGE IN BLADDER CONTROL? NO . IS THERE A CHANCE YOU COULD BE ? NO . HEMATOLOGY/LYMPH: DO YOU TAKE ANY BLOOD THINNERS? (FOR EXAMPLE- COUMADIN, PLAVIX, AGGRENOX, PLATEL, PRADAXA, OR XARELTO) NO . WHEN WAS YOUR LAST DOSE? DATE: TIME: . NEUROLOGY: HAVE YOU FALLEN IN THE PAST 6 MONTHS? NO . ANY NEW EXTREMITY NUMBNESS OR WEAKNESS? NO . CARDIOLOGY: DO YOU HAVE A PACEMAKER OR DEFIBRILLATOR? NO . RESPIRATORY: HAVE YOU BEEN SICK IN THE PAST WEEK? NO . FEVER NO . FLU LIKE SYMPTOMS? NO . COUGH NO . INTEGUMENTARY: DO YOU HAVE ANY RASHES OR OPEN SORES? NO . ALLERGIC/IMMUNO: ARE YOU ALLERGIC TO SHELLFISH OR IV DYE? NO . ANY NEW ALLERGIES? NO . PSYCHIATRIC: DO YOU HAVE THOUGHTS OF HURTING YOURSELF OR SOMEONE ELSE? NO . ARE YOU ABUSED, NEGLECTED, OR IN AN UNSAFE ENVIRONMENT? NO . ENDOCRINOLOGY: ARE YOU DIABETIC? YES . OTHER: DO YOU NEED ANY PRESCRIPTIONS? NO . IF YES, PLEASE LIST: ____ . ANY NEW PROBLEMS WITH YOUR MEDICATIONS? NO . WHEN DID YOU LAST EAT? ____ . WHEN DID YOU LAST DRINK? ____ . WHAT DID YOU LAST DRINK? ____ . NAME OF PERSON DRIVING YOU HOME? ____ . DO YOU HAVE ANY OTHER QUESTIONS OR CONCERNS NO . REVIEWED BY: PROVIDER: PATRICIA ROTHMAN . VITAL SIGNS WT 341.2 LBS, HT 60.5 IN, BMI 65.53 INDEX, BP 134/75 MM HG, HR 101 /MIN, RR 18 /MIN, TEMP 97.0 F, OXYGEN SAT % 97, NA INITIALS TL 0910, REVIEWED BY: CS. EXAMINATION CERVICAL SPINE/NECK: RANGE OF MOTION OF NECK:NORMAL IN ALL DIRECTIONS. MOTOR STRENGTH:NORMAL. TRAPEZIUS TENDERNESS:PRESENT BILATERALLY. MYOFASCIAL TRIGGER POINTS:POSITIVE OVER TRAPEZIUS BILATERALLY. GENERAL EXAMINATION: LUNGS:LUNG SOUNDS ARE CLEAR. HEART:HEART RATE REGULAR. MUSCULOSKELETAL:*, MUSCLE STRENGTH TESTING 5/5 BILATERAL, PALPATION: POSITIVE FOR PAIN OVER L/S SPINE. POSITIVE FOR PAIN OVER L/S PARSPINALS.SPECIFIC POINT TENDERNESS BILAT SIJ. DIAGNOSTIC:MRI L/S [id number]-REVIEWED.. 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 BRINGS IN MEDICATIONS WHICH IS APPROPRIATE FOR WHAT WAS DISPENSED. RECENT URINE TOXICOLOGY REVIEWED. NO UNAUTHORIZED MEDICATIONS. NO ILLICIT SUBSTANCES AND PRESCRIBED MEDICATIONS WERE PRESENT. , RISKS AND BENEFITS OF NARCOTIC/OPIOD MEDICATIONS WERE REVIEWED WITH PATIENT - THIS INCLUDES BUT IS NOT LIMITED TO RISK OF DEPENDANCE/DEVELOPMENT OF ADDICTION, MOOD DISTURBANCE AND DEPRESSION, OSTEOPOROSIS, HORMONAL AND LABIDAL CHANGES, RESPIRATORY DEPRESSION AND . PATIENT IS ADVISED NOT TO DRIVE WHILE ON THESE MEDICATIONSLUMBAR EPIDURAL INFORMATION GIVEN. PROCEDURE CODES FA211 ESTABILISHED PATIENT [facility] CHARGE DISPOSITION & COMMUNICATION FOLLOW UP 2WK POST (REASON: REQUEST LESI L4/5-L5/S1) ELECTRONICALLY SIGNED BY STEPHAN SHAH ON 06/29/2016 AT 11:08 AM EDT DISCLAIMER : THIS IS A VISIT SUMMARY EXTRACTED FROM THE [employer] CHART. IT IS NOT A COPY OF THE [employer] PROGRESS NOTE. MTDD
== END ==
LOC: M PAIN 09:20
PROVIDERS: ATTEND Nurse Practitioner Family
DX: Z09 Encounter for follow-up examination after completed treatment for conditions other than malignant neoplasm (principal); G89.29 Other chronic pain; M43.02 Spondylolysis, cervical region; M54.42 Lumbago with sciatica, left side; M53.3 Sacrococcygeal disorders, not elsewhere classified; E11.9 Type 2 diabetes mellitus without complications; I10 Essential (primary) hypertension; E78.00 Pure hypercholesterolemia, unspecified; K21.9 Gastro-esophageal reflux disease without esophagitis; F17.200 Nicotine dependence, unspecified, uncomplicated; E66.9 Obesity, unspecified; Z68.44 Body mass index [BMI] 60.0-69.9, adult; Z88.2 Allergy status to sulfonamides; Z88.6 Allergy status to analgesic agent; Z79.84 Long term (current) use of oral hypoglycemic drugs; Z79.891 Long term (current) use of opiate analgesic; Z79.899 Other long term (current) drug therapy; Z98.84 Bariatric surgery status

== ENCOUNTER → 2016-07-28 | Outpatient (CLI) | payer OTHER ==
[~2016-07-28] MED LIST changes: +GABA-282 PO; -GABA300C3 PO; +ISOVUE-M 300 61% 15ML VIAL (Q9967) As Ordered ONE; +LIDOCAINE 1% SDV INJ 30 ML VIAL As Ordered ONE; +diazePAM 5 MG TAB As Ordered ONE; +methylPREDNISolone SUSP 40 MG/ML (DEPO-medrol) VIAL (J1030) As Ordered ONE; +oxyCODONE 5MG TAB As Ordered ONE
--- NOTE | 2016-07-28 16:32 | REP ---
Partial lumbar spine series: Three views: History: Lumbar epidural steroid injection for pain. 31 seconds of fluoroscopy time is reported. Findings: A sequence of three fluoroscopically obtained intraprocedural spot radiographs of the lumbar spine document needle position and contrast injection associated with lumbar epidural injection procedure. Signed by Biju Bui MD 07/28/2016 04:48 P
--- NOTE | 2016-08-02 23:14 | ECWPNPC ---
PATIENT NAME: STELLA TAVERAS : 1975 GENDER: FEMALE VISIT DATE: 07/28/2016 DISCHARGE DATE: 07/28/16 1353 VISIT LOCKED DATE TIME: PHYSICIAN: AMELIA LAI RESOURCE: AMELIA LAI REASON FOR APPOINTMENT 1. LE HISTORY OF PRESENT ILLNESS HISTORY OF PRESENT ILLNESS: PAIN THE PATIENT DESCRIBES THE PAIN... FALL RISK SCREENING: SCREENING :NO FALLS IN THE PAST YEAR CURRENT MEDICATIONS TAKING ABILIFY 5 MG TABLET 1 TABLET ORALLY ONCE A DAY, NOTES: 07/27/162199 TAKING CETIRIZINE HCL 10 MG TABLET ORALLY ONCE A DAY, NOTES: 07/27/162199 TAKING CYMBALTA 90 MG CAPSULE DELAYED RELEASE PARTICLES 1 CAPSULE ORALLY 30MG CAP AND 60 MG CAP DAILY, NOTES: 07/27/162199 TAKING FLONASE 50 MCG/ACT SUSPENSION 1 SPRAY IN EACH NOSTRIL NASALLY ONCE A DAY, NOTES: > 2 MONTHS TAKING LOSARTAN POTASSIUM 25 MG TABLET ORALLY DAILY, NOTES: 07/28/16799 TAKING MONTELUKAST SODIUM 10 MG TABLET 1 TABLET IN THE EVENING ORALLY ONCE A DAY, NOTES: 07/28/16799 TAKING DITROPAN XL 10 MG TABLET EXTENDED RELEASE 24 HOUR 1 TABLET ORALLY ONCE A DAY, NOTES: 07/28/16799 TAKING OMEPRAZOLE 40 MG CAPSULE DELAYED RELEASE 1 CAPSULE ORALLY BID, NOTES: 07/28/16799 TAKING VITAMIN B12 500 TABLET 500 MCG ORALLY DAILY, NOTES: 07/28/16799 TAKING MULTIVITAMIN 1 TABLET CHEWABLE 1 TAB(S) ORALLY DAILY, NOTES: 07/27/161799 TAKING SUMATRIPTAN SUCCINATE 50 MG TABLET 1 TABLET NEEDED ORALLY DIRECTED, NOTES: > 3 WEEKS TAKING CALCIUM CITRATE + 630 MG TABLET 2 TABLET WITH MEALS ORALLY TWICE A DAY, NOTES: 07/27/161799 TAKING LASIX 40 MG TABLET 1 TABLET ORALLY BID, NOTES: 07/27/16799 TAKING METFORMIN HCL 500 MG TABLET 1 TABLET WITH MEALS ORALLY TWICE A DAY, NOTES: 07/27/162199 TAKING IRON 1 TAB ORAL DAILY, NOTES: 07/27/161799 TAKING COLACE 100 MG CAPSULE 1 CAPSULE NEEDED ORALLY 3X/DAY, NOTES: 07/28/16799 TAKING LYRICA 100 MG CAPSULE 1 CAPSULE ORALLY TWICE A DAY MDD2, NOTES: HASNT TAKEN TAKING GABAPENTIN 600 MG TABLET 1 CAPSULE ORALLY TID, NOTES: 07/28/16 0800 TAKING OXYCODONE HCL 5 MG TABLET 1 TABLET ORALLY EVERY 6 HRS PRN FOR PAIN MDD2, NOTES: 07/26/16 2200 MEDICATION LIST REVIEWED AND RECONCILED WITH THE PATIENT PAST MEDICAL HISTORY DIABETES HYPERTENSION HYPERCHOLESTEREMIA OBESITY GERD (GASTROESOPHAGEAL REFLUX DISEASE) GASTRIC BYPASS ALLERGIES SULFA (FOR ALLERGY USE ONLY): RASH: ALLERGY NSAIDS: GASTRIC BYPASS: CONTRAINDICATION SOCIAL HISTORY GENERAL: PAIN CLINIC PFS, CLERGY, PUBLIC HEALTH REFERRALS CLERGY REFERRAL NEEDED?NO WAS THE PROVIDER NOTIFIED OF ANY PERTINENT INFO?NO PFS REFERRAL NEEDED?NO PUBLIC HEALTH REFERRAL NEEDED?NO PATIENT: ____. REVIEW OF SYSTEMS CONSTITUTIONAL: ANY CHANGE IN YOUR MEDICAL CONDITION? NO . CHILLS NO . FEVER NO . INFECTION: DO YOU HAVE NEW INFECTIONS? NO . DO YOU HAVE HISTORY OF MRSA? NO . MUSCULOSKELETAL: ANY NEW PATTERNS OF PAIN OR NUMBNESS? NO . GASTROENTEROLOGY: ANY NEW CHANGE IN BOWEL CONTROL? NO . GENITOURINARY: ANY NEW CHANGE IN BLADDER CONTROL? NO . IS THERE A CHANCE YOU COULD BE ? NO . HEMATOLOGY/LYMPH: DO YOU TAKE ANY BLOOD THINNERS? (FOR EXAMPLE- COUMADIN, PLAVIX, AGGRENOX, PLATEL, PRADAXA, OR XARELTO) NO . WHEN WAS YOUR LAST DOSE? DATE: TIME: . NEUROLOGY: HAVE YOU FALLEN IN THE PAST 6 MONTHS? NO . ANY NEW EXTREMITY NUMBNESS OR WEAKNESS? NO . CARDIOLOGY: DO YOU HAVE A PACEMAKER OR DEFIBRILLATOR? NO . RESPIRATORY: HAVE YOU BEEN SICK IN THE PAST WEEK? NO . FEVER NO . FLU LIKE SYMPTOMS? NO . COUGH NO . INTEGUMENTARY: DO YOU HAVE ANY RASHES OR OPEN SORES? NO . ALLERGIC/IMMUNO: ARE YOU ALLERGIC TO SHELLFISH OR IV DYE? NO . ANY NEW ALLERGIES? NO . PSYCHIATRIC: DO YOU HAVE THOUGHTS OF HURTING YOURSELF OR SOMEONE ELSE? NO . ARE YOU ABUSED, NEGLECTED, OR IN AN UNSAFE ENVIRONMENT? NO . ENDOCRINOLOGY: ARE YOU DIABETIC? YES . OTHER: DO YOU NEED ANY PRESCRIPTIONS? NO . IF YES, PLEASE LIST: ____ . ANY NEW PROBLEMS WITH YOUR MEDICATIONS? NO . WHEN DID YOU LAST EAT? ____07/27/16 1900 . WHEN DID YOU LAST DRINK? ____07/28/16 0900 . WHAT DID YOU LAST DRINK? ____WATER . NAME OF PERSON DRIVING YOU HOME? ____PETER . DO YOU HAVE ANY OTHER QUESTIONS OR CONCERNS NO . REVIEWED BY: PROVIDER: . VITAL SIGNS WT 338.0 LBS, HT 60.5 IN, BMI 64.92 INDEX, BP 118/62 MM HG, HR 98 /MIN, RR 18 /MIN, TEMP 97.2 F, OXYGEN SAT % 96%, BLOOD GLUCOSE LEVEL 150 @ 0730 PER PT, SAFE IN ENV? (Y/N) YES, NA INITIALS [id number], REVIEWED BY: JIAN. ASSESSMENTS INTERVERTEBRAL DISC DISORDERS WITH RADICULOPATHY, LUMBOSACRAL REGION - M51.17 (PRIMARY) PROCEDURES PRE PROCEDURE DIAGNOSIS LUMBOSACRAL DISC DISORDER WITH RADICULOPATHY POST PROCEDURE DIAGNOSIS LUMBOSACRAL DISC DISORDER WITH RADICULOPATHY PROCEDURE LUMBAR EPIDURAL STEROID INJECTION UNDER FLUOROSCOPIC GUIDANCE SURGEON DR. AMELIA LAI CLINICAL CARE MANAGER NONE ANESTHESIA LOCAL PRE PROCEDURE NOTE THE PATIENT HAS A HISTORY OF CHRONIC LOW BACK PAIN. I EVALUATE THE PATIENT AND REVIEWED THE CHART. I WENT OVER THE RISKS, ALTERNATIVES, AND BENEFITS ASSOCIATED WITH THIS PROCEDURE. THE PATIENT WOULD LIKE TO PROCEED AND GIVE CONSENT TO PERFORMED THE PROCEDURE. THE PATIENT DENIES UNEXPLAINABLE WEIGHT LOSS, FEVER, CHILLS, OR NEW CHANGES IN URINARY OR BOWEL CONTROL DESCRIPTION OF PROCEDURE THE PATIENT WAS BROUGHT TO THE PROCEDURE ROOM AND PLACED IN THE PRONE POSITION. THE LUMBOSACRAL AREA WAS CLEANED WITH BETADINE SOLUTION AND DRAPED ASEPTICALLY. THE PROCEDURE WAS DONE UNDER STERILE CONDITIONS. I CHECKED LATERALITY AND THE LEVEL WHERE THE PROCEDURE WAS GOING TO BE PERFORMED WITH THE PATIENT AND THE SUPPORTING STAFF AT THE MOMENT OF THE TIME OUT IN THE PROCEDURE ROOM. UNDER FLUOROSCOPIC GUIDANCE, THE TARGET POINT WAS SELECTED AT THE INTERLAMINAR LEVEL OF L5-S1. LIDOCAINE WAS USED TO NUMB THE SKIN AND THE SUBCUTANEOUS TISSUE BELOW IT. EPIDURAL TUOHY NEEDLE, 17-GAUGE, WAS ADVANCED UNDER FLUOROSCOPIC GUIDANCE AND FOLLOWING PATIENT FEEDBACK UNTIL THE EPIDURAL SPACE WAS REACHED, 7 CM DEEP INTO THE SKIN BY THE LOSS OF RESISTANCE TECHNIQUE. ISOVUE M DYE 30%, 0.25 ML, WAS INJECTED SHOWING ADEQUATE SPREAD OF THE DYE. THEN, A SOLUTION OF 3 ML OF NORMAL SALINE WITH DEPO-MEDROL 60 MG WAS INJECTED SLOWLY FOLLOWING PATIENT FEEDBACK. THERE WAS NO EVIDENCE OF BLOOD, PARESTHESIA OR CEREBROSPINAL FLUID DURING THE PROCEDURE. THE PATIENT WAS SENT TO THE RECOVERY ROOM. THE PATIENT WAS MOVING THE EXTREMITIES AND DOING WELL. THERE WAS NO COMPLICATION DURING THE PROCEDURE. FLUOROSCOPY TIME WAS 31 SECONDS POST PROCEDURE NOTE THE PATIENT WILL BE SEEN IN A FOLLOW UP IN THE NEXT FEW WEEKS. INSTRUCTIONS WERE GIVEN, QUESTIONS WERE ANSWERED, AND THE PATIENT EXPRESSED UNDERSTANDING AND AGREES WITH THE PLAN. I, RAQUEL SONI, DOCUMENTED THE ABOVE INFORMATION ACTING A SCRIBE FOR DR. LAI. I, DR. LAI, HAVE REVIEWED THE ABOVE DOCUMENT, SCRIBED BY RAQUEL SONI, AND I VERIFY THAT IT IS ACCURATE DIAGNOSTIC IMAGING [facility] FLUORO GUIDE SPINE INJECTION (PAIN)[id number] PROCEDURE CODES 12857 LUMBAR/SACRAL W/ IMAGING 6045F RADXPS IN END [id number] PXD DISPOSITION & COMMUNICATION FOLLOW UP 3 WEEKS ELECTRONICALLY SIGNED BY AMELIA LAI MD ON 08/02/2016 AT 05:32 PM EDT DISCLAIMER : THIS IS A VISIT SUMMARY EXTRACTED FROM THE [employer] CHART. IT IS NOT A COPY OF THE [employer] PROGRESS NOTE. MTDD
== END ==
LOC: M PAIN 11:40
PROVIDERS: ATTEND Anesthesiology
DX: G89.29 Other chronic pain (principal); M51.17 Intervertebral disc disorders with radiculopathy, lumbosacral region; M54.5 Low back pain; Z79.891 Long term (current) use of opiate analgesic; Z79.899 Other long term (current) drug therapy; Z79.84 Long term (current) use of oral hypoglycemic drugs; E11.9 Type 2 diabetes mellitus without complications; I10 Essential (primary) hypertension; E78.00 Pure hypercholesterolemia, unspecified; K21.9 Gastro-esophageal reflux disease without esophagitis; Z98.84 Bariatric surgery status; Z88.2 Allergy status to sulfonamides; Z88.8 Allergy status to other drugs, medicaments and biological substances
CPT/HCPCS: 62323; J1030; Q9967

== ENCOUNTER → 2016-08-18 | Outpatient (CLI) | payer OTHER ==
[~2016-08-18] MED LIST changes: -ISOVUE-M 300 61% 15ML VIAL (Q9967) As Ordered ONE; -LIDOCAINE 1% SDV INJ 30 ML VIAL As Ordered ONE; -diazePAM 5 MG TAB As Ordered ONE; -methylPREDNISolone SUSP 40 MG/ML (DEPO-medrol) VIAL (J1030) As Ordered ONE; -oxyCODONE 5MG TAB As Ordered ONE
--- NOTE | 2016-08-19 00:41 | ECWPNPC ---
PATIENT NAME: STELLA TAVERAS : 1975 GENDER: FEMALE VISIT DATE: 08/18/2016 DISCHARGE DATE: 08/18/16 1033 VISIT LOCKED DATE TIME: PHYSICIAN: PATRICIA MCNAMARA RESOURCE: PATRICIA MCNAMARA REASON FOR APPOINTMENT 1. BACK-POST LE HISTORY OF PRESENT ILLNESS HISTORY OF PRESENT ILLNESS: HERE FOR POST PROCEDURE F/U.HAD LESI ON 07-28-16.REPORTS >50% IMPROVEMENT IN PAIN FOR ABOUT 20 DAYS POSTPROCEDURE THEN PAIN RETURNED.CHIEF AREA OF PAIN IS NECK TODAY.REPORTS SOME RADIATION INTO LEFT NECK.RATING PAIN VAS 8/10.HAS RESPONDED TO TPI IN PAST.PATIENT IS ASKING FOR REFILLS OF OXYCODONE AND MUSCLE RELAXANT.SHE DID NOT BRING MEDICATION WITH HER.AGAIN ALICIA REMINDED HER THAT WE WOULD NOT BE USING OXYCODONE CARE HOME AND THAT I WOULDNT BE ABLE TO PRESCRIBE IT AGAIN IF SHE DOESNT BRING IN MEDICATION BOTTLES.SHE IS REMINDED THAT #30 TABLET IS A 30 DAY SUPPLY. PAIN THE PATIENT DESCRIBES THE PAIN... FALL RISK SCREENING: SCREENING :NO FALLS IN THE PAST YEAR CURRENT MEDICATIONS TAKING ABILIFY 5 MG TABLET 1 TABLET ORALLY ONCE A DAY TAKING CETIRIZINE HCL 10 MG TABLET ORALLY ONCE A DAY TAKING CYMBALTA 90 MG CAPSULE DELAYED RELEASE PARTICLES 1 CAPSULE ORALLY 30MG CAP AND 60 MG CAP DAILY TAKING FLONASE 50 MCG/ACT SUSPENSION 1 SPRAY IN EACH NOSTRIL NASALLY ONCE A DAY TAKING LOSARTAN POTASSIUM 25 MG TABLET ORALLY DAILY TAKING MONTELUKAST SODIUM 10 MG TABLET 1 TABLET IN THE EVENING ORALLY ONCE A DAY TAKING DITROPAN XL 10 MG TABLET EXTENDED RELEASE 24 HOUR 1 TABLET ORALLY ONCE A DAY TAKING OMEPRAZOLE 40 MG CAPSULE DELAYED RELEASE 1 CAPSULE ORALLY BID TAKING VITAMIN B12 500 TABLET 500 MCG ORALLY DAILY TAKING MULTIVITAMIN 1 TABLET CHEWABLE 1 TAB(S) ORALLY DAILY TAKING SUMATRIPTAN SUCCINATE 50 MG TABLET 1 TABLET NEEDED ORALLY DIRECTED TAKING CALCIUM CITRATE + 630 MG TABLET 2 TABLET WITH MEALS ORALLY TWICE A DAY TAKING LASIX 40 MG TABLET 1 TABLET ORALLY BID TAKING METFORMIN HCL 1000 MG TABLET 1 TABLET WITH MEALS ORALLY TWICE A DAY TAKING IRON 1 TAB ORAL DAILY TAKING COLACE 100 MG CAPSULE 1 CAPSULE NEEDED ORALLY 3X/DAY TAKING LYRICA 100 MG CAPSULE 1 CAPSULE ORALLY TWICE A DAY MDD2, NOTES: HASNT TAKEN TAKING GABAPENTIN 600 MG TABLET 1 CAPSULE ORALLY TID TAKING OXYCODONE HCL 5 MG TABLET 1 TABLET ORALLY EVERY 6 HRS PRN FOR PAIN MDD2 MEDICATION LIST REVIEWED AND RECONCILED WITH THE PATIENT PAST MEDICAL HISTORY DIABETES HYPERTENSION HYPERCHOLESTEREMIA OBESITY GERD (GASTROESOPHAGEAL REFLUX DISEASE) GASTRIC BYPASS ALLERGIES SULFA (FOR ALLERGY USE ONLY): RASH: ALLERGY NSAIDS: GASTRIC BYPASS: CONTRAINDICATION REVIEW OF SYSTEMS CONSTITUTIONAL: ANY CHANGE IN YOUR MEDICAL CONDITION? NO . CHILLS NO . FEVER NO . INFECTION: DO YOU HAVE NEW INFECTIONS? NO . DO YOU HAVE HISTORY OF MRSA? NO . MUSCULOSKELETAL: ANY NEW PATTERNS OF PAIN OR NUMBNESS? NO . GASTROENTEROLOGY: ANY NEW CHANGE IN BOWEL CONTROL? NO . GENITOURINARY: ANY NEW CHANGE IN BLADDER CONTROL? NO . IS THERE A CHANCE YOU COULD BE ? NO . HEMATOLOGY/LYMPH: DO YOU TAKE ANY BLOOD THINNERS? (FOR EXAMPLE- COUMADIN, PLAVIX, AGGRENOX, PLATEL, PRADAXA, OR XARELTO) NO . WHEN WAS YOUR LAST DOSE? DATE: TIME: . NEUROLOGY: HAVE YOU FALLEN IN THE PAST 6 MONTHS? NO . ANY NEW EXTREMITY NUMBNESS OR WEAKNESS? NO . CARDIOLOGY: DO YOU HAVE A PACEMAKER OR DEFIBRILLATOR? NO . RESPIRATORY: HAVE YOU BEEN SICK IN THE PAST WEEK? NO . FEVER NO . FLU LIKE SYMPTOMS? NO . COUGH NO . INTEGUMENTARY: DO YOU HAVE ANY RASHES OR OPEN SORES? NO . ALLERGIC/IMMUNO: ARE YOU ALLERGIC TO SHELLFISH OR IV DYE? NO . ANY NEW ALLERGIES? NO . PSYCHIATRIC: DO YOU HAVE THOUGHTS OF HURTING YOURSELF OR SOMEONE ELSE? NO . ARE YOU ABUSED, NEGLECTED, OR IN AN UNSAFE ENVIRONMENT? NO . ENDOCRINOLOGY: ARE YOU DIABETIC? YES . OTHER: DO YOU NEED ANY PRESCRIPTIONS? NO . IF YES, PLEASE LIST: ____ . ANY NEW PROBLEMS WITH YOUR MEDICATIONS? NO . WHEN DID YOU LAST EAT? ____ . WHEN DID YOU LAST DRINK? ____ . WHAT DID YOU LAST DRINK? ____ . NAME OF PERSON DRIVING YOU HOME? ____ . DO YOU HAVE ANY OTHER QUESTIONS OR CONCERNS NO . REVIEWED BY: PROVIDER: PATRICIA ROTHMAN . VITAL SIGNS WT 346.0 LBS, HT 60.5 IN, BMI 66.45 INDEX, BP 130/78 MM HG, HR 100 /MIN, RR 18 /MIN, TEMP 97.9 F, OXYGEN SAT % 98%, NA INITIALS TL 0934, REVIEWED BY: [place]. EXAMINATION CERVICAL SPINE/NECK: RANGE OF MOTION OF NECK:NORMAL IN ALL DIRECTIONS. MOTOR STRENGTH:NORMAL. TRAPEZIUS TENDERNESS:PRESENT BILATERALLY. MYOFASCIAL TRIGGER POINTS:POSITIVE OVER TRAPEZIUS BILATERALLY. GENERAL EXAMINATION: LUNGS:LUNG SOUNDS ARE CLEAR. HEART:HEART RATE REGULAR. MUSCULOSKELETAL:*, MUSCLE STRENGTH TESTING 5/5 BILATERAL, PALPATION: POSITIVE FOR PAIN OVER L/S SPINE. POSITIVE FOR PAIN OVER L/S PARSPINALS.SPECIFIC POINT TENDERNESS BILAT SIJ. DIAGNOSTIC:MRI L/S [id number]-[id number].. 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 BRINGS IN MEDICATIONS WHICH IS APPROPRIATE FOR WHAT WAS DISPENSED. RECENT URINE TOXICOLOGY REVIEWED. NO UNAUTHORIZED MEDICATIONS. NO ILLICIT SUBSTANCES AND PRESCRIBED MEDICATIONS WERE PRESENT. , RISKS AND BENEFITS OF NARCOTIC/OPIOD MEDICATIONS WERE REVIEWED WITH PATIENT - THIS INCLUDES BUT IS NOT LIMITED TO RISK OF DEPENDANCE/DEVELOPMENT OF ADDICTION, MOOD DISTURBANCE AND DEPRESSION, OSTEOPOROSIS, HORMONAL AND LABIDAL CHANGES, RESPIRATORY DEPRESSION AND . PATIENT IS ADVISED NOT TO DRIVE WHILE ON THESE MEDICATIONSURINETOX TODAY. PROCEDURE CODES FA211 ESTABILISHED PATIENT [facility] FACILITY CHARGE [id number] INJECT TRIGGER POINT, 1 OR 2 DISPOSITION & COMMUNICATION FOLLOW UP 2WK F/U PATRICIA BRING IN MEDICATION (REASON: TPI NECK) ELECTRONICALLY SIGNED BY STEPHAN SHAH ON 08/18/2016 AT 11:32 AM EDT DISCLAIMER : THIS IS A VISIT SUMMARY EXTRACTED FROM THE [employer] CHART. IT IS NOT A COPY OF THE [employer] PROGRESS NOTE. [employer]
== END ==
LOC: M PAIN 09:20
PROVIDERS: ATTEND Nurse Practitioner Family
DX: M43.02 Spondylolysis, cervical region (principal); G89.29 Other chronic pain; M25.512 Pain in left shoulder; M25.511 Pain in right shoulder; M54.2 Cervicalgia; E11.9 Type 2 diabetes mellitus without complications; I10 Essential (primary) hypertension; E78.00 Pure hypercholesterolemia, unspecified; K21.9 Gastro-esophageal reflux disease without esophagitis; Z98.84 Bariatric surgery status; Z79.899 Other long term (current) drug therapy; Z79.84 Long term (current) use of oral hypoglycemic drugs; Z88.2 Allergy status to sulfonamides; Z88.8 Allergy status to other drugs, medicaments and biological substances

== ENCOUNTER → 2016-08-24 | Outpatient (CLI) | payer OTHER ==
[~2016-08-24] MED LIST changes: +BUPIVACAINE HCL 0.25% 10 ML VIAL As Ordered ONE; +BUPIVACAINE HCL 0.25% 30 ML VIAL As Ordered ONE; +TRIAMCINOLONE ACETONIDE SUSP 40 MG/ML VIAL (J3301) As Ordered ONE; +diazePAM 5 MG TAB As Ordered ONE; +oxyCODONE 5MG TAB As Ordered ONE
--- NOTE | 2016-08-30 23:30 | ECWPNPC ---
PATIENT NAME: STELLA TAVERAS : 1975 GENDER: FEMALE VISIT DATE: 08/24/2016 DISCHARGE DATE: 08/24/16952 VISIT LOCKED DATE TIME: PHYSICIAN: AMELIA LAI RESOURCE: AMELIA LAI REASON FOR APPOINTMENT 1. TPI HISTORY OF PRESENT ILLNESS HISTORY OF PRESENT ILLNESS: PAIN THE PATIENT DESCRIBES THE PAIN... FALL RISK SCREENING: SCREENING :NO FALLS IN THE PAST YEAR CURRENT MEDICATIONS TAKING ABILIFY 5 MG TABLET 1 TABLET ORALLY ONCE A DAY, NOTES: 08/23/162099 TAKING CETIRIZINE HCL 10 MG TABLET ORALLY ONCE A DAY, NOTES: 08/23/162099 TAKING CYMBALTA 90 MG CAPSULE DELAYED RELEASE PARTICLES 1 CAPSULE ORALLY 30MG CAP AND 60 MG CAP DAILY, NOTES: 08/23/162099 TAKING FLONASE 50 MCG/ACT SUSPENSION 1 SPRAY IN EACH NOSTRIL NASALLY ONCE A DAY, NOTES: > 2 MONTHS TAKING LOSARTAN POTASSIUM 25 MG TABLET ORALLY DAILY, NOTES: 08/24/16629 TAKING MONTELUKAST SODIUM 10 MG TABLET 1 TABLET IN THE EVENING ORALLY ONCE A DAY, NOTES: 08/24/16629 TAKING DITROPAN XL 10 MG TABLET EXTENDED RELEASE 24 HOUR 1 TABLET ORALLY ONCE A DAY, NOTES: 08/24/16629 TAKING OMEPRAZOLE 40 MG CAPSULE DELAYED RELEASE 1 CAPSULE ORALLY BID, NOTES: 08/24/16629 TAKING VITAMIN B12 500 TABLET 500 MCG ORALLY DAILY, NOTES: 08/23/16799 TAKING MULTIVITAMIN 1 TABLET CHEWABLE 1 TAB(S) ORALLY DAILY, NOTES: 08/23/16799 TAKING SUMATRIPTAN SUCCINATE 50 MG TABLET 1 TABLET NEEDED ORALLY DIRECTED, NOTES: > 2 MONTHS TAKING CALCIUM CITRATE + 630 MG TABLET 2 TABLET WITH MEALS ORALLY TWICE A DAY, NOTES: 08/23/16799 TAKING LASIX 40 MG TABLET 1 TABLET ORALLY BID, NOTES: 08/23/16799 TAKING METFORMIN HCL 1000 MG TABLET 1 TABLET WITH MEALS ORALLY TWICE A DAY, NOTES: 08/23/162099 TAKING IRON 1 TAB ORAL DAILY, NOTES: 08/23/16799 TAKING COLACE 100 MG CAPSULE 1 CAPSULE NEEDED ORALLY 3X/DAY, NOTES: 08/24/16629 TAKING LYRICA 100 MG CAPSULE 1 CAPSULE ORALLY TWICE A DAY MDD2, NOTES: HASNT TAKEN TAKING OXYCODONE HCL 5 MG TABLET 1 TABLET ORALLY EVERY 6 HRS PRN FOR PAIN MDD2, NOTES: 08/23/16 2100 TAKING GABAPENTIN 600 MG TABLET 1 CAPSULE ORALLY TID, NOTES: 08/24/16629 MEDICATION LIST REVIEWED AND RECONCILED WITH THE PATIENT PAST MEDICAL HISTORY DIABETES HYPERTENSION HYPERCHOLESTEREMIA OBESITY GERD (GASTROESOPHAGEAL REFLUX DISEASE) GASTRIC BYPASS ALLERGIES SULFA (FOR ALLERGY USE ONLY): RASH: ALLERGY NSAIDS: GASTRIC BYPASS: CONTRAINDICATION REVIEW OF SYSTEMS CONSTITUTIONAL: ANY CHANGE IN YOUR MEDICAL CONDITION? NO . CHILLS NO . FEVER NO . INFECTION: DO YOU HAVE NEW INFECTIONS? NO . DO YOU HAVE HISTORY OF MRSA? NO . MUSCULOSKELETAL: ANY NEW PATTERNS OF PAIN OR NUMBNESS? NO . GASTROENTEROLOGY: ANY NEW CHANGE IN BOWEL CONTROL? NO . GENITOURINARY: ANY NEW CHANGE IN BLADDER CONTROL? NO . IS THERE A CHANCE YOU COULD BE ? NO . HEMATOLOGY/LYMPH: DO YOU TAKE ANY BLOOD THINNERS? (FOR EXAMPLE- COUMADIN, PLAVIX, AGGRENOX, PLATEL, PRADAXA, OR XARELTO) NO . WHEN WAS YOUR LAST DOSE? DATE: TIME: . NEUROLOGY: HAVE YOU FALLEN IN THE PAST 6 MONTHS? NO . ANY NEW EXTREMITY NUMBNESS OR WEAKNESS? NO . CARDIOLOGY: DO YOU HAVE A PACEMAKER OR DEFIBRILLATOR? NO . RESPIRATORY: HAVE YOU BEEN SICK IN THE PAST WEEK? NO . FEVER NO . FLU LIKE SYMPTOMS? NO . COUGH NO . INTEGUMENTARY: DO YOU HAVE ANY RASHES OR OPEN SORES? NO . ALLERGIC/IMMUNO: ARE YOU ALLERGIC TO SHELLFISH OR IV DYE? NO . ANY NEW ALLERGIES? NO . PSYCHIATRIC: DO YOU HAVE THOUGHTS OF HURTING YOURSELF OR SOMEONE ELSE? NO . ARE YOU ABUSED, NEGLECTED, OR IN AN UNSAFE ENVIRONMENT? NO . ENDOCRINOLOGY: ARE YOU DIABETIC? YES . OTHER: DO YOU NEED ANY PRESCRIPTIONS? NO . IF YES, PLEASE LIST: ____ . ANY NEW PROBLEMS WITH YOUR MEDICATIONS? NO . WHEN DID YOU LAST EAT? ____08/23/162029 . WHEN DID YOU LAST DRINK? ____08/24/16629 . WHAT DID YOU LAST DRINK? ____WATER . NAME OF PERSON DRIVING YOU HOME? ____PETE . DO YOU HAVE ANY OTHER QUESTIONS OR CONCERNS NO . REVIEWED BY: PROVIDER: . VITAL SIGNS WT 346 LBS, HT 60.5 IN, BMI 66.45 INDEX, BP 141/75 MM HG, HR 98 /MIN, RR 18 /MIN, TEMP 98.0 F, OXYGEN SAT % 97%, BLOOD GLUCOSE LEVEL 130 @ 0645 PER PT, SAFE IN ENV? (Y/N) YES, REVIEWED BY: LAS. LEROY MYALGIA - M79.1 (PRIMARY) PROCEDURES PN TRIGGER POINT INJECTION WITH STEROIDS PRE PROCEDURE DIAGNOSIS 1. MYALGIA 2. PAIN AT BILATERAL NECK AREA AND LEFT SHOULDER AREA POST PROCEDURE DIAGNOSIS 1. MYALGIA 2. PAIN AT BILATERAL NECK AREA AND LEFT SHOULDER AREA PROCEDURE TRIGGER POINT INJECTION AT BILATERAL NECK AREA AND LEFT SHOULDER AREA SURGEON DR. AMELIA LAI PROVIDER RELATIONS SPECIALIST NONE ANESTHESIA LOCAL PRE PROCEDURE NOTE THE PATIENT HAS A HISTORY OF CHRONIC PAIN AT THE RIGHT AND LEFT NECK AREA AND LEFT SHOULDER AREA. I EVALUATE THE PATIENT AND REVIEWED THE CHART. THERE IS EVIDENCE OF BANDS OF TISSUE WITH RESTRICTION OF MOVEMENT AND PRESENCE OF TRIGGER POINT AT THE AFFECTED AREA. I WENT OVER THE RISKS, ALTERNATIVES, AND BENEFITS ASSOCIATED WITH THIS PROCEDURE. THE PATIENT WOULD LIKE TO PROCEED AND GIVE CONSENT TO PERFORMED THE PROCEDURE. THE PATIENT DENIES UNEXPLAINABLE WEIGHT LOSS, FEVER, CHILLS, OR NEW CHANGES IN URINARY OR BOWEL CONTROL DESCRIPTION OF PROCEDURE THE PATIENT WAS BROUGHT TO THE PROCEDURE ROOM AND PLACED IN THE SITTING POSITION. THE AREA WAS CLEANED WITH ALCOHOL. THE PROCEDURE WAS DONE USING ASEPTIC STERILE TECHNIQUE. I CHECKED LATERALITY AND THE LEVEL WHERE THE PROCEDURE WAS GOING TO BE PERFORMED WITH THE PATIENT AND THE SUPPORTING STAFF AT THE MOMENT OF THE TIME OUT IN THE PROCEDURE ROOM. USING A 25-GAUGE NEEDLE, TRIGGER POINTS WERE INJECTED AT THE RIGHT AND LEFT NECK AREA AND LEFT SHOULDER AREA WITH A TOTAL OF 40 ML OF BUPIVACAINE 0.25% AND KENALOG 40 MG. THERE WAS NO EVIDENCE OF BLOOD, PARESTHESIA OR CEREBROSPINAL FLUID DURING THE PROCEDURE. THE PATIENT WAS SENT TO THE RECOVERY ROOM. THE PATIENT WAS MOVING THE EXTREMITIES AND DOING WELL. THERE WAS NO COMPLICATION DURING THE PROCEDURE POST PROCEDURE NOTE THE PATIENT WILL BE SEEN IN A FOLLOW UP IN THE NEXT FEW WEEKS. INSTRUCTIONS WERE GIVEN, QUESTIONS WERE ANSWERED, AND THE PATIENT EXPRESSED UNDERSTANDING AND AGREES WITH THE PLAN. I, RAQUEL SONI, DOCUMENTED THE ABOVE INFORMATION ACTING A SCRIBE FOR DR. LAI. I HAVE REVIEWED THE ABOVE DOCUMENT, WRITTEN BY RAQUEL YANES AND I VERIFY THAT IT IS ACCURATE PROCEDURE CODES 47256 INJECT TRIGGER POINTS 3/> DISPOSITION & COMMUNICATION FOLLOW UP 3 WEEKS ELECTRONICALLY SIGNED BY AMELIA LAI MD ON 08/30/2016 AT 12:42 PM EDT DISCLAIMER : THIS IS A VISIT SUMMARY EXTRACTED FROM THE [facility] CHART. IT IS NOT A COPY OF THE [employer] [facility] [employer] PROGRESS NOTE. JUSTUS
== END ==
LOC: M PAIN 08:40
PROVIDERS: ATTEND Anesthesiology
DX: G89.29 Other chronic pain (principal); M79.1 Myalgia; M25.512 Pain in left shoulder; M54.2 Cervicalgia; Z79.899 Other long term (current) drug therapy; Z79.84 Long term (current) use of oral hypoglycemic drugs; Z88.2 Allergy status to sulfonamides; Z88.8 Allergy status to other drugs, medicaments and biological substances
CPT/HCPCS: 20553; J3301

== ENCOUNTER → 2016-09-11 | Outpatient (CLI) | payer OTHER ==
[~2016-09-11] MED LIST changes: -BUPIVACAINE HCL 0.25% 10 ML VIAL As Ordered ONE; -BUPIVACAINE HCL 0.25% 30 ML VIAL As Ordered ONE; -TRIAMCINOLONE ACETONIDE SUSP 40 MG/ML VIAL (J3301) As Ordered ONE; -diazePAM 5 MG TAB As Ordered ONE; -oxyCODONE 5MG TAB As Ordered ONE
--- NOTE | 2016-10-07 01:34 | ECWPNPC ---
PATIENT NAME: STELLA TAVERAS : 1975 GENDER: FEMALE VISIT DATE: 09/11/2016 DISCHARGE DATE: 09/11/16 1040 VISIT LOCKED DATE TIME: PHYSICIAN: PATRICIA MCNAMARA RESOURCE: PATRICIA MCNAMARA REASON FOR APPOINTMENT 1. POST TPI HISTORY OF PRESENT ILLNESS HISTORY OF PRESENT ILLNESS: HERE FOR POST PROCEDURE F/U.HAD TPI LEFT SHOULDER AND NECK ON 08-24-16.REPORTS >50% IMPROVEMENT IN PAIN FOR 3 WEEKS AND PAST TWO DAYS PAIN IS GRADUALLY INCREASING.CHIEF AREA OF PAIN IS BUTTOCKS/LOW BACK.RATING PAIN VAS 7/10.DESCRIBES PAIN CONSTANT AND ACHING. FALL RISK SCREENING: SCREENING :NO FALLS IN THE PAST YEAR CURRENT MEDICATIONS TAKING ABILIFY 5 MG TABLET 1 TABLET ORALLY ONCE A DAY, NOTES: 08/23/162099 TAKING CETIRIZINE HCL 10 MG TABLET ORALLY ONCE A DAY, NOTES: 08/23/162099 TAKING CYMBALTA 90 MG CAPSULE DELAYED RELEASE PARTICLES 1 CAPSULE ORALLY 30MG CAP AND 60 MG CAP DAILY, NOTES: 08/23/162099 TAKING FLONASE 50 MCG/ACT SUSPENSION 1 SPRAY IN EACH NOSTRIL NASALLY ONCE A DAY, NOTES: > 2 MONTHS TAKING LOSARTAN POTASSIUM 25 MG TABLET ORALLY DAILY, NOTES: 08/24/16629 TAKING MONTELUKAST SODIUM 10 MG TABLET 1 TABLET IN THE EVENING ORALLY ONCE A DAY, NOTES: 08/24/16629 TAKING DITROPAN XL 10 MG TABLET EXTENDED RELEASE 24 HOUR 1 TABLET ORALLY ONCE A DAY, NOTES: 08/24/16629 TAKING OMEPRAZOLE 40 MG CAPSULE DELAYED RELEASE 1 CAPSULE ORALLY BID, NOTES: 08/24/16629 TAKING VITAMIN B12 500 TABLET 500 MCG ORALLY DAILY, NOTES: 08/23/16799 TAKING MULTIVITAMIN 1 TABLET CHEWABLE 1 TAB(S) ORALLY DAILY, NOTES: 08/23/16799 TAKING SUMATRIPTAN SUCCINATE 50 MG TABLET 1 TABLET NEEDED ORALLY DIRECTED, NOTES: > 2 MONTHS TAKING CALCIUM CITRATE + 630 MG TABLET 2 TABLET WITH MEALS ORALLY TWICE A DAY, NOTES: 08/23/16799 TAKING LASIX 40 MG TABLET 1 TABLET ORALLY BID, NOTES: 08/23/16799 TAKING METFORMIN HCL 1000 MG TABLET 1 TABLET WITH MEALS ORALLY TWICE A DAY, NOTES: 08/23/162099 TAKING IRON 1 TAB ORAL DAILY, NOTES: 08/23/16 0800 TAKING COLACE 100 MG CAPSULE 1 CAPSULE NEEDED ORALLY 3X/DAY, NOTES: 08/24/16 0630 TAKING GABAPENTIN 600 MG TABLET 1 CAPSULE ORALLY TID, NOTES: 08/24/16 0630 TAKING OXYCODONE HCL 5 MG TABLET 1 TABLET ORALLY EVERY 6 HRS PRN FOR PAIN MDD2, NOTES: 08/23/16 2100 NOT-TAKING LYRICA 100 MG CAPSULE 1 CAPSULE ORALLY TWICE A DAY MDD2, NOTES: HASNT TAKEN MEDICATION LIST REVIEWED AND RECONCILED WITH THE PATIENT PAST MEDICAL HISTORY DIABETES HYPERTENSION HYPERCHOLESTEREMIA OBESITY GERD (GASTROESOPHAGEAL REFLUX DISEASE) GASTRIC BYPASS ALLERGIES SULFA (FOR ALLERGY USE ONLY): RASH: ALLERGY NSAIDS: GASTRIC BYPASS: CONTRAINDICATION SURGICAL HISTORY GASTRIC BYPASS 06/2015 BILAT CARPAL TUNNEL C SECTION CHOLECYSTECTOMY TONSILLECTOMY & ADENOIDECTOMY HOSPITALIZATION/MAJOR DIAGNOSTIC PROCEDURE SURGERIES REVIEW OF SYSTEMS CONSTITUTIONAL: ANY CHANGE IN YOUR MEDICAL CONDITION? NO . CHILLS NO . FEVER NO . INFECTION: DO YOU HAVE NEW INFECTIONS? NO . DO YOU HAVE HISTORY OF MRSA? NO . MUSCULOSKELETAL: ANY NEW PATTERNS OF PAIN OR NUMBNESS? YES DOWN CENTER OF BACK, STARTED YESTERDAY, SPONTANEOUSLY STARTED UPON RISING IN AM, PT RATES BACK PAIN 10/26. . GASTROENTEROLOGY: ANY NEW CHANGE IN BOWEL CONTROL? NO . GENITOURINARY: ANY NEW CHANGE IN BLADDER CONTROL? NO . IS THERE A CHANCE YOU COULD BE ? NO . HEMATOLOGY/LYMPH: DO YOU TAKE ANY BLOOD THINNERS? (FOR EXAMPLE- COUMADIN, PLAVIX, AGGRENOX, PLATEL, PRADAXA, OR XARELTO) NO . WHEN WAS YOUR LAST DOSE? DATE: TIME: . NEUROLOGY: HAVE YOU FALLEN IN THE PAST 6 MONTHS? NO . ANY NEW EXTREMITY NUMBNESS OR WEAKNESS? NO . CARDIOLOGY: DO YOU HAVE A PACEMAKER OR DEFIBRILLATOR? NO . RESPIRATORY: HAVE YOU BEEN SICK IN THE PAST WEEK? NO . FEVER NO . FLU LIKE SYMPTOMS? NO . COUGH NO . INTEGUMENTARY: DO YOU HAVE ANY RASHES OR OPEN SORES? NO . ALLERGIC/IMMUNO: ARE YOU ALLERGIC TO SHELLFISH OR IV DYE? NO . ANY NEW ALLERGIES? NO . PSYCHIATRIC: DO YOU HAVE THOUGHTS OF HURTING YOURSELF OR SOMEONE ELSE? NO . ARE YOU ABUSED, NEGLECTED, OR IN AN UNSAFE ENVIRONMENT? NO . ENDOCRINOLOGY: ARE YOU DIABETIC? YES . OTHER: DO YOU NEED ANY PRESCRIPTIONS? YES, PT STATES SHE HAS NOT STARTED LYRICA SHE IS STILL WAITING FOR PRIOR AUTHORIZATION FROM [employer] . IF YES, PLEASE LIST: ____ . ANY NEW PROBLEMS WITH YOUR MEDICATIONS? NO . WHEN DID YOU LAST EAT? ____ . WHEN DID YOU LAST DRINK? ____ . WHAT DID YOU LAST DRINK? ____ . NAME OF PERSON DRIVING YOU HOME? ____ . DO YOU HAVE ANY OTHER QUESTIONS OR CONCERNS NO . REVIEWED BY: PROVIDER: PATRICIA ROTHMAN . VITAL SIGNS WT 332.0 LBS, HT 60.5 IN, BMI 63.77 INDEX, BP 132/74 MM HG, HR 82 /MIN, RR 18 /MIN, TEMP 97.8 F, OXYGEN SAT % 97%, SAFE IN ENV? (Y/N) Y, NA INITIALS AW 1002, REVIEWED BY: EM. EXAMINATION CERVICAL SPINE/NECK: RANGE OF MOTION OF NECK:NORMAL IN ALL DIRECTIONS. MOTOR STRENGTH:NORMAL. TRAPEZIUS TENDERNESS:PRESENT BILATERALLY. MYOFASCIAL TRIGGER POINTS:POSITIVE OVER TRAPEZIUS BILATERALLY. GENERAL EXAMINATION: LUNGS:LUNG SOUNDS ARE CLEAR. HEART:HEART RATE REGULAR. MUSCULOSKELETAL:*, MUSCLE STRENGTH TESTING 5/5 BILATERAL, PALPATION: POSITIVE FOR PAIN OVER L/S SPINE. POSITIVE FOR PAIN OVER L/S PARSPINALS.SPECIFIC POINT TENDERNESS BILAT SIJ. DIAGNOSTIC:MRI L/S [id number].. 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 PROCEDURE CODES FA211 ESTABILISHED PATIENT [facility] FACILITY CHARGE DISPOSITION & COMMUNICATION FOLLOW UP 2WK POST (REASON: I AM GOING TO REQUEST A LUMBAR INTERLAMINAR EPIDURAL STEROID INJECTION L5/S1) ELECTRONICALLY SIGNED BY STEPHAN SHAH ON 10/05/2016 AT 05:44 PM EDT DISCLAIMER : THIS IS A VISIT SUMMARY EXTRACTED FROM THE [employer] CHART. IT IS NOT A COPY OF THE [employer] PROGRESS NOTE. JUSTUS
== END ==
LOC: M PAIN 09:40
PROVIDERS: ATTEND Nurse Practitioner Family
DX: M79.1 Myalgia (principal); M43.02 Spondylolysis, cervical region; M51.26 Other intervertebral disc displacement, lumbar region; Z79.84 Long term (current) use of oral hypoglycemic drugs; Z79.891 Long term (current) use of opiate analgesic; Z79.899 Other long term (current) drug therapy; Z88.2 Allergy status to sulfonamides; Z88.8 Allergy status to other drugs, medicaments and biological substances

== ENCOUNTER → 2016-09-22 | Outpatient (CLI) | payer OTHER ==
[~2016-09-22] MED LIST changes: +ISOVUE-M 300 61% 15ML VIAL (Q9967) As Ordered ONE; +LIDOCAINE 1% SDV INJ 30 ML VIAL As Ordered ONE; +diazePAM 5 MG TAB As Ordered ONE; +methylPREDNISolone SUSP 40 MG/ML (DEPO-medrol) VIAL (J1030) As Ordered ONE; +oxyCODONE 5MG TAB As Ordered ONE
--- NOTE | 2016-09-22 10:47 | REP ---
Partial lumbar spine series: Three views. History: Lumbar epidural steroid injection for pain. 27 seconds of fluoroscopy time is reported. Findings: A sequence of three last image hold fluoro spot radiographs of the lumbar spine document needle position and contrast injection associated with epidural steroid injection procedure. Signed by Biju Bui MD 09/22/2016 02:52 P
--- NOTE | 2016-09-27 23:31 | ECWPNPC ---
PATIENT NAME: STELLA TAVERAS : 1975 GENDER: FEMALE VISIT DATE: 09/22/2016 DISCHARGE DATE: 09/22/16 1036 VISIT LOCKED DATE TIME: PHYSICIAN: AMELIA LAI RESOURCE: AMELIA LAI REASON FOR APPOINTMENT 1. LE HISTORY OF PRESENT ILLNESS HISTORY OF PRESENT ILLNESS: PAIN THE PATIENT DESCRIBES THE PAIN... FALL RISK SCREENING: SCREENING :NO FALLS IN THE PAST YEAR CURRENT MEDICATIONS TAKING ABILIFY 5 MG TABLET 1 TABLET ORALLY ONCE A DAY, NOTES: 09/22/161999 TAKING CETIRIZINE HCL 10 MG TABLET ORALLY ONCE A DAY, NOTES: 09/22/161999 TAKING CYMBALTA 90 MG CAPSULE DELAYED RELEASE PARTICLES 1 CAPSULE ORALLY 30MG CAP AND 60 MG CAP DAILY, NOTES: 09/22/161999 TAKING FLONASE 50 MCG/ACT SUSPENSION 1 SPRAY IN EACH NOSTRIL NASALLY ONCE A DAY NEEDED, NOTES: > 2 MONTHS TAKING LOSARTAN POTASSIUM 25 MG TABLET ORALLY DAILY, NOTES: 09/22/16699 TAKING MONTELUKAST SODIUM 10 MG TABLET 1 TABLET ORALLY ONCE A DAY, NOTES: 09/22/16699 TAKING DITROPAN XL 10 MG TABLET EXTENDED RELEASE 24 HOUR 1 TABLET ORALLY ONCE A DAY, NOTES: 09/22/16699 TAKING OMEPRAZOLE 40 MG CAPSULE DELAYED RELEASE 1 CAPSULE ORALLY BID, NOTES: 09/22/16699 TAKING VITAMIN B12 500 TABLET 500 MCG ORALLY DAILY, NOTES: 09/22/16699 TAKING MULTIVITAMIN 1 TABLET CHEWABLE 1 TAB(S) ORALLY DAILY, NOTES: 09/21/16629 TAKING SUMATRIPTAN SUCCINATE 50 MG TABLET 1 TABLET NEEDED ORALLY DIRECTED, NOTES: > 2 MONTHS TAKING CALCIUM CITRATE + 630 MG TABLET 2 TABLET WITH MEALS ORALLY TWICE A DAY, NOTES: 09/22/16699 TAKING LASIX 40 MG TABLET 1 TABLET ORALLY BID, NOTES: 09/21/16629 TAKING METFORMIN HCL 1000 MG TABLET 1 TABLET WITH MEALS ORALLY TWICE A DAY, NOTES: 09/21/161999 TAKING IRON 1 TAB ORAL DAILY, NOTES: 09/21/16599 TAKING COLACE 100 MG CAPSULE 1 CAPSULE NEEDED ORALLY 3X/DAY, NOTES: 09/22/16699 TAKING GABAPENTIN 600 MG TABLET 1 CAPSULE ORALLY TID, NOTES: 09/22/16699 TAKING OXYCODONE HCL 5 MG TABLET 1 TABLET ORALLY EVERY 6 HRS PRN FOR PAIN MDD2, NOTES: 09/21/16 2200 NOT-TAKING LYRICA 100 MG CAPSULE 1 CAPSULE ORALLY TWICE A DAY MDD2, NOTES: HASNT TAKEN MEDICATION LIST REVIEWED AND RECONCILED WITH THE PATIENT PAST MEDICAL HISTORY DIABETES HYPERTENSION HYPERCHOLESTEREMIA OBESITY GERD (GASTROESOPHAGEAL REFLUX DISEASE) GASTRIC BYPASS ALLERGIES SULFA (FOR ALLERGY USE ONLY): RASH: ALLERGY NSAIDS: GASTRIC BYPASS: CONTRAINDICATION SURGICAL HISTORY GASTRIC BYPASS 06/2015 BILAT CARPAL TUNNEL C SECTION CHOLECYSTECTOMY TONSILLECTOMY & ADENOIDECTOMY SOCIAL HISTORY GENERAL: TOBACCO USE ARE YOU A:CURRENT SMOKER PATIENT COUNSELED ON THE DANGERS OF TOBACCO USE AND URGED TO QUIT:06/16/2016 ARE YOU INTERESTED IN QUITTING?READY TO QUIT COUNSELED THE PATIENT ON TOBACCO USE, CESSATION [id number]/28/2017 LEARNING BARRIERS / SPECIAL NEEDS BARRIERS TO LEARNING?NO VISION IMPAIRED?YES WEARS GLASSES LEARNING PREFERENCES?NO NEW PATIENT PAIN DIARY TODAY'S VISIT NOTES, FROM 0-10, WHAT LEVEL IS YOUR PAIN TODAY? 0. PAIN CLINIC PFS, CLERGY, PUBLIC HEALTH REFERRALS PFS REFERRAL NEEDED? NO, CLERGY REFERRAL NEEDED? NO, PUBLIC HEALTH REFERRAL NEEDED? NO, WAS THE PROVIDER NOTIFIED OF ANY PERTINENT INFO? NO, PFS REFERRAL NEEDED? NO, CLERGY REFERRAL NEEDED? NO, PUBLIC HEALTH REFERRAL NEEDED? NO, WAS THE PROVIDER NOTIFIED OF ANY PERTINENT INFO? NO, PFS REFERRAL NEEDED? NO, CLERGY REFERRAL NEEDED? NO, PUBLIC HEALTH REFERRAL NEEDED? NO, WAS THE PROVIDER NOTIFIED OF ANY PERTINENT INFO? NO. HOSPITALIZATION/MAJOR DIAGNOSTIC PROCEDURE SURGERIES REVIEW OF SYSTEMS CONSTITUTIONAL: ANY CHANGE IN YOUR MEDICAL CONDITION? NO . CHILLS NO . FEVER NO . INFECTION: DO YOU HAVE NEW INFECTIONS? NO . DO YOU HAVE HISTORY OF MRSA? NO . MUSCULOSKELETAL: ANY NEW PATTERNS OF PAIN OR NUMBNESS? NO . GASTROENTEROLOGY: ANY NEW CHANGE IN BOWEL CONTROL? NO . GENITOURINARY: ANY NEW CHANGE IN BLADDER CONTROL? NO . IS THERE A CHANCE YOU COULD BE ? NO . HEMATOLOGY/LYMPH: DO YOU TAKE ANY BLOOD THINNERS? (FOR EXAMPLE- COUMADIN, PLAVIX, AGGRENOX, PLATEL, PRADAXA, OR XARELTO) NO . WHEN WAS YOUR LAST DOSE? DATE: TIME: . NEUROLOGY: HAVE YOU FALLEN IN THE PAST 6 MONTHS? NO . ANY NEW EXTREMITY NUMBNESS OR WEAKNESS? NO . CARDIOLOGY: DO YOU HAVE A PACEMAKER OR DEFIBRILLATOR? NO . RESPIRATORY: HAVE YOU BEEN SICK IN THE PAST WEEK? NO . FEVER NO . FLU LIKE SYMPTOMS? NO . COUGH NO . INTEGUMENTARY: DO YOU HAVE ANY RASHES OR OPEN SORES? NO . ALLERGIC/IMMUNO: ARE YOU ALLERGIC TO SHELLFISH OR IV DYE? NO . ANY NEW ALLERGIES? NO . PSYCHIATRIC: DO YOU HAVE THOUGHTS OF HURTING YOURSELF OR SOMEONE ELSE? NO . ARE YOU ABUSED, NEGLECTED, OR IN AN UNSAFE ENVIRONMENT? NO . ENDOCRINOLOGY: ARE YOU DIABETIC? YES . OTHER: DO YOU NEED ANY PRESCRIPTIONS? NO . IF YES, PLEASE LIST: ____ . ANY NEW PROBLEMS WITH YOUR MEDICATIONS? NO . WHEN DID YOU LAST EAT? 2029 . WHEN DID YOU LAST DRINK? 0700 . WHAT DID YOU LAST DRINK? WATER . NAME OF PERSON DRIVING YOU HOME? CHICHI . DO YOU HAVE ANY OTHER QUESTIONS OR CONCERNS NO . REVIEWED BY: PROVIDER: . VITAL SIGNS WT 98.2 LBS, HT 60.5 IN, BMI 18.86 INDEX, BP 132/73 MM HG, HR 86 /MIN, RR 18 /MIN, TEMP 98.2 F, OXYGEN SAT % 96%, NA INITIALS TL 0920, REVIEWED BY: LS. ASSESSMENTS INTERVERTEBRAL DISC DISORDERS WITH RADICULOPATHY, LUMBAR REGION - M51.16 (PRIMARY) PROCEDURES PRE PROCEDURE DIAGNOSIS LUMBAR RADICULOPATHY, LUMBAR DISC DISORDER WITH RADICULOPATHY POST PROCEDURE DIAGNOSIS LUMBAR RADICULOPATHY , LUMBAR DISC DISORDER WITH RADICULOPATHY PROCEDURE L3-L4 LUMBAR EPIDURAL STEROID INJECTION UNDER FLUOROSCOPIC GUIDANCE SURGEON DR. AMELIA LAI REVIVAL CLERK NONE ANESTHESIA LOCAL PRE PROCEDURE NOTE THE PATIENT HAS A HISTORY OF CHRONIC LOW BACK PAIN. I EVALUATE THE PATIENT AND REVIEWED THE CHART. I WENT OVER THE RISKS, ALTERNATIVES, AND BENEFITS ASSOCIATED WITH THIS PROCEDURE. THE PATIENT WOULD LIKE TO PROCEED AND GIVE CONSENT TO PERFORMED THE PROCEDURE. THE PATIENT DENIES UNEXPLAINABLE WEIGHT LOSS, FEVER, CHILLS, OR NEW CHANGES IN URINARY OR BOWEL CONTROL. DESCRIPTION OF PROCEDURE THE PATIENT WAS BROUGHT TO THE PROCEDURE ROOM AND PLACED IN THE PRONE POSITION. THE LUMBOSACRAL AREA WAS CLEANED WITH BETADINE SOLUTION AND DRAPED ASEPTICALLY. THE PROCEDURE WAS DONE UNDER STERILE CONDITIONS. I CHECKED LATERALITY AND THE LEVEL WHERE THE PROCEDURE WAS GOING TO BE PERFORMED WITH THE PATIENT AND THE SUPPORTING STAFF AT THE MOMENT OF THE TIME OUT IN THE PROCEDURE ROOM. UNDER FLUOROSCOPIC GUIDANCE, THE TARGET POINT WAS SELECTED AT THE INTERLAMINAR LEVEL OF L3-L4. LIDOCAINE WAS USED TO NUMB THE SKIN AND THE SUBCUTANEOUS TISSUE BELOW IT. EPIDURAL TUOHY NEEDLE, 17-GAUGE, WAS ADVANCED UNDER FLUOROSCOPIC GUIDANCE AND FOLLOWING PATIENT FEEDBACK UNTIL THE EPIDURAL SPACE WAS REACHED, 7 CM DEEP INTO THE SKIN BY THE LOSS OF RESISTANCE TECHNIQUE. ISOVUE M DYE 30%, 0.25 ML, WAS INJECTED SHOWING ADEQUATE SPREAD OF THE DYE. THEN, A SOLUTION OF 3 ML OF NORMAL SALINE WITH DEPO-MEDROL 60 MG WAS INJECTED SLOWLY FOLLOWING PATIENT FEEDBACK. THERE WAS NO EVIDENCE OF BLOOD, PARESTHESIA OR CEREBROSPINAL FLUID DURING THE PROCEDURE. THE PATIENT WAS SENT TO THE RECOVERY ROOM. THE PATIENT WAS MOVING THE EXTREMITIES AND DOING WELL. THERE WAS NO COMPLICATION DURING THE PROCEDURE. FLUOROSCOPY TIME WAS 27 SECONDS. POST PROCEDURE NOTE THE PATIENT WILL BE SEEN IN A FOLLOW UP IN THE NEXT FEW WEEKS. INSTRUCTIONS WERE GIVEN, QUESTIONS WERE ANSWERED, AND THE PATIENT EXPRESSED UNDERSTANDING AND AGREES WITH THE PLAN. I, TRES NYAAK, DOCUMENTED THE ABOVE INFORMATION ACTING A SCRIBE FOR DR. LAI. I HAVE REVIEWED THE ABOVE DOCUMENT, WRITTEN BY TRES NAYAK SCRIBE AND I VERIFY THAT IT IS ACCURATE DIAGNOSTIC IMAGING [facility] FLUORO GUIDE SPINE INJECTION (PAIN)[id number] PROCEDURE CODES 53088 LUMBAR/SACRAL W/ IMAGING 6045F RADXPS IN END [id number] PXD DISPOSITION & COMMUNICATION FOLLOW UP 3 WEEKS ELECTRONICALLY SIGNED BY AMELIA LAI MD ON 09/27/2016 AT 07:49 PM EDT DISCLAIMER : THIS IS A VISIT SUMMARY EXTRACTED FROM THE [facility] CHART. IT IS NOT A COPY OF THE [facility] PROGRESS NOTE. MTDD
== END ==
LOC: M PAIN 09:00
PROVIDERS: ATTEND Anesthesiology
DX: M51.16 Intervertebral disc disorders with radiculopathy, lumbar region (principal); E11.9 Type 2 diabetes mellitus without complications; I10 Essential (primary) hypertension; E78.00 Pure hypercholesterolemia, unspecified; K21.9 Gastro-esophageal reflux disease without esophagitis; Z98.84 Bariatric surgery status; Z79.891 Long term (current) use of opiate analgesic; Z79.84 Long term (current) use of oral hypoglycemic drugs; Z79.899 Other long term (current) drug therapy; F17.210 Nicotine dependence, cigarettes, uncomplicated; Z88.2 Allergy status to sulfonamides; Z88.8 Allergy status to other drugs, medicaments and biological substances

== ENCOUNTER → 2016-09-28 | Outpatient (CLI) | payer OTHER ==
[~2016-09-28] MED LIST changes: -ISOVUE-M 300 61% 15ML VIAL (Q9967) As Ordered ONE; -LIDOCAINE 1% SDV INJ 30 ML VIAL As Ordered ONE; -diazePAM 5 MG TAB As Ordered ONE; -methylPREDNISolone SUSP 40 MG/ML (DEPO-medrol) VIAL (J1030) As Ordered ONE; -oxyCODONE 5MG TAB As Ordered ONE
[2016-09-28 11:58] LABS: MEAN CORPUSCULAR HEMOGLOBIN 32.4 pg (27.0-33.0); MEAN CORPUSCULAR HGB CONC 33.5 g/dl (32.0-36.5); MEAN CORPUSCULAR VOLUME 96.6 fl (80.0-96.0); RED CELL DISTRIBUTION WIDTH 13.4 % (11.5-14.5); WHITE BLOOD COUNT 15.6 K/mm3 (4.0-10.0)
[2016-09-28 13:41] LABS: ALBUMIN 3.2 GM/DL (3.2-5.2); ALBUMIN/GLOBULIN RATIO 0.89 (1.00-1.93); ALKALINE PHOSPHATASE 108 U/L (45-117); ALT/SGPT 58 U/L (12-78); ANION GAP 7 MEQ/L (8-16); AST/SGOT 27 U/L (15-37); BILIRUBIN,TOTAL 0.4 MG/DL (0.2-1.0); BLOOD UREA NITROGEN 13 MG/DL (7-18); CALCIUM LEVEL 9.1 MG/DL (8.5-10.1); CARBON DIOXIDE LEVEL 25 MEQ/L (21-32); CHLORIDE LEVEL 109 MEQ/L (98-107); CHOLESTEROL LEVEL 153 MG/DL (<200); CREATININE FOR GFR 0.72 MG/DL (0.55-1.02); GLOMERULAR FILTRATION RATE > 60.0 (>58); GLUCOSE, FASTING 116 MG/DL (70-105); SODIUM LEVEL 141 MEQ/L (136-145); TOTAL PROTEIN 6.8 GM/DL (6.4-8.2); TRIGLYCERIDES LEVEL 135 MG/DL (<150); URIC ACID 5.1 MG/DL (2.6-6.0)
== END ==
LOC: M LAB 11:16
PROVIDERS: ATTEND Family Medicine
DX: M10.9 Gout, unspecified (principal)

== ENCOUNTER → 2016-09-28 | Outpatient (CLI) | payer OTHER | LOC: M LAB 11:19 | PROVIDERS: ATTEND Nurse Practitioner Family | DX: E11.69 Type 2 diabetes mellitus with other specified complication (principal) ==

== ENCOUNTER → 2016-10-05 | Outpatient (CLI) | payer OTHER ==
--- NOTE | 2016-10-05 10:12 | REPMRS ---
Patient History The patient states she had a clinical breast exam in September 2016. Patient had first child at age 34. Family history of unknown cancer in maternal grandfather at age 50 or over and unknown cancer in maternal aunt at age 50 or over. Digital Mammo Screening Bilat: October 05, 2016 - Exam #: [id number] Bilateral CC and MLO view(s) were taken. Technologist: Tayler Toure, Technologist Prior study comparison: September 30, 2015, bilateral digital mammo screening bilat performed at [facility]. September 28, 2014, bilateral digital mammo screening bilat performed at [facility]. FINDINGS: There are scattered fibroglandular densities. There has been no change in the appearance of the mammogram from the prior studies. There is a mild amount of residual fibroglandular tissue which is fairly symmetric. There is no interval development of dominant mass, architectural distortion, or clustered microcalcification suggestive of malignancy. ASSESSMENT: BI-RADS/ACR category 1 mammogram. Negative. Recommendation Routine screening mammogram in 1 year (for women over age 40). This mammogram was interpreted with the aid of an FDA-approved computer-aided dectection system. Electronically Signed By: Scott Pagan MD 10/05/16 [id number]
== END ==
LOC: M RAD 08:51
PROVIDERS: ATTEND Obstetrics & Gynecology
DX: Z12.4 Encounter for screening for malignant neoplasm of cervix (principal)

== ENCOUNTER → 2016-10-06 | Outpatient (CLI) | payer OTHER ==
[~2016-10-06] MED LIST changes: +ABIL1TAB11 PO; -ABIL5TAB5 PO; +AMIT25TA; +CIPR-249 PO; -DOCU100C PO; +DOCU100C16 PO; +IRON65TA PO; -METF1000 PO; +METF10004 PO; -METF500T PO; +METF500T13 PO; +PERC5TAB12 PO; -PERC5TAB6 PO; +PHEN15CA PO; -PHEN15CA58 PO; +SUMA50TA2; -TOPA50TA7 PO; +TOPA50TA8 PO; +TRAM50TA2 PO; +VITA-110 PO; -VITA400C29 PO; +ZITHTAB PO
--- NOTE | 2016-10-07 00:23 | ECWPNPC ---
PATIENT NAME: STELLA TAVERAS : 1975 GENDER: FEMALE VISIT DATE: 10/06/2016 DISCHARGE DATE: 10/06/16 1009 VISIT LOCKED DATE TIME: PHYSICIAN: PATRICIA MCNAMARA RESOURCE: PATRICIA MCNAMARA REASON FOR APPOINTMENT 1. 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 PAIN THE PATIENT DESCRIBES THE PAIN... THE PATIENT DESCRIBES THE PAIN... FALL RISK SCREENING: SCREENING :NO FALLS IN THE PAST YEAR CURRENT MEDICATIONS TAKING ABILIFY 5 MG TABLET 1 TABLET ORALLY ONCE A DAY TAKING CETIRIZINE HCL 10 MG TABLET ORALLY ONCE A DAY TAKING CYMBALTA 90 MG CAPSULE DELAYED RELEASE PARTICLES 1 CAPSULE ORALLY 30MG CAP AND 60 MG CAP DAILY TAKING FLONASE 50 MCG/ACT SUSPENSION 1 SPRAY IN EACH NOSTRIL NASALLY ONCE A DAY NEEDED TAKING LOSARTAN POTASSIUM 25 MG TABLET ORALLY DAILY TAKING MONTELUKAST SODIUM 10 MG TABLET 1 TABLET ORALLY ONCE A DAY TAKING DITROPAN XL 10 MG TABLET EXTENDED RELEASE 24 HOUR 1 TABLET ORALLY ONCE A DAY TAKING OMEPRAZOLE 40 MG CAPSULE DELAYED RELEASE 1 CAPSULE ORALLY BID TAKING VITAMIN B12 500 TABLET 500 MCG ORALLY DAILY TAKING MULTIVITAMIN 1 TABLET CHEWABLE 1 TAB(S) ORALLY DAILY TAKING SUMATRIPTAN SUCCINATE 50 MG TABLET 1 TABLET NEEDED ORALLY DIRECTED TAKING CALCIUM CITRATE + 630 MG TABLET 2 TABLET WITH MEALS ORALLY TWICE A DAY TAKING LASIX 40 MG TABLET 1 TABLET ORALLY BID TAKING METFORMIN HCL 1000 MG TABLET 1 TABLET WITH MEALS ORALLY TWICE A DAY TAKING IRON 1 TAB ORAL DAILY TAKING COLACE 100 MG CAPSULE 1 CAPSULE NEEDED ORALLY 3X/DAY TAKING GABAPENTIN 600 MG TABLET 1 CAPSULE ORALLY TID TAKING OXYCODONE HCL 5 MG TABLET 1 TABLET ORALLY EVERY 6 HRS PRN FOR PAIN MDD2 TAKING LYRICA 100 MG CAPSULE 1 CAPSULE ORALLY TWICE A DAY MDD2, NOTES: HASNT TAKEN MEDICATION LIST REVIEWED AND RECONCILED WITH THE PATIENT PAST MEDICAL HISTORY DIABETES HYPERTENSION HYPERCHOLESTEREMIA OBESITY GERD (GASTROESOPHAGEAL REFLUX DISEASE) GASTRIC BYPASS ALLERGIES SULFA (FOR ALLERGY USE ONLY): RASH: ALLERGY NSAIDS: GASTRIC BYPASS: CONTRAINDICATION SOCIAL HISTORY GENERAL: TOBACCO USE ARE YOU A:CURRENT SMOKER PATIENT COUNSELED ON THE DANGERS OF TOBACCO USE AND URGED TO QUIT:06/16/2016 ARE YOU INTERESTED IN QUITTING?READY TO QUIT COUNSELED THE PATIENT ON TOBACCO USE, CESSATION [id number]/28/2017 [facility] [id number] NONE LEARNING BARRIERS / SPECIAL NEEDS BARRIERS TO LEARNING?NO VISION IMPAIRED?YES WEARS GLASSES LEARNING PREFERENCES?NO NEW PATIENT PAIN DIARY TODAY'S VISIT NOTES, FROM 0-10, WHAT LEVEL IS YOUR PAIN TODAY? 0. PAIN CLINIC PFS, CLERGY, PUBLIC HEALTH REFERRALS PFS REFERRAL NEEDED?NO CLERGY REFERRAL NEEDED?NO PUBLIC HEALTH REFERRAL NEEDED?NO HAS THE PATIENT BEEN EDUCATED REGARDING HIS/HER PLAN OF CARE?YES HAS THE PATIENT BEEN EDUCATED REGARDING PAIN, THE RISK FOR PAIN, THE IMPORTANCE OF EFFECTIVE PAIN MANAGEMENT, AND THE PAIN ASSESSMENT PROCESS?YES REVIEW OF SYSTEMS CONSTITUTIONAL: ANY CHANGE IN YOUR MEDICAL CONDITION? NO . CHILLS NO . FEVER NO . INFECTION: DO YOU HAVE NEW INFECTIONS? NO . DO YOU HAVE HISTORY OF MRSA? NO . MUSCULOSKELETAL: ANY NEW PATTERNS OF PAIN OR NUMBNESS? NO . GASTROENTEROLOGY: ANY NEW CHANGE IN BOWEL CONTROL? NO . GENITOURINARY: ANY NEW CHANGE IN BLADDER CONTROL? NO . IS THERE A CHANCE YOU COULD BE ? NO . HEMATOLOGY/LYMPH: DO YOU TAKE ANY BLOOD THINNERS? (FOR EXAMPLE- COUMADIN, PLAVIX, AGGRENOX, PLATEL, PRADAXA, OR XARELTO) NO . WHEN WAS YOUR LAST DOSE? DATE: TIME: . NEUROLOGY: HAVE YOU FALLEN IN THE PAST 6 MONTHS? NO . ANY NEW EXTREMITY NUMBNESS OR WEAKNESS? NO . CARDIOLOGY: DO YOU HAVE A PACEMAKER OR DEFIBRILLATOR? NO . RESPIRATORY: HAVE YOU BEEN SICK IN THE PAST WEEK? NO . FEVER NO . FLU LIKE SYMPTOMS? NO . COUGH NO . INTEGUMENTARY: DO YOU HAVE ANY RASHES OR OPEN SORES? NO . ALLERGIC/IMMUNO: ARE YOU ALLERGIC TO SHELLFISH OR IV DYE? NO . ANY NEW ALLERGIES? NO . PSYCHIATRIC: DO YOU HAVE THOUGHTS OF HURTING YOURSELF OR SOMEONE ELSE? NO . ARE YOU ABUSED, NEGLECTED, OR IN AN UNSAFE ENVIRONMENT? NO . ENDOCRINOLOGY: ARE YOU DIABETIC? YES . OTHER: DO YOU NEED ANY PRESCRIPTIONS? NO . IF YES, PLEASE LIST: ____ . ANY NEW PROBLEMS WITH YOUR MEDICATIONS? NO . WHEN DID YOU LAST EAT? ____ . WHEN DID YOU LAST DRINK? ____ . WHAT DID YOU LAST DRINK? ____ . NAME OF PERSON DRIVING YOU HOME? ____ . DO YOU HAVE ANY OTHER QUESTIONS OR CONCERNS NO . REVIEWED BY: PROVIDER: PATRICIA ROTHMAN . VITAL SIGNS WT 330.2 LBS, HT 60.5 IN, BMI 63.42 INDEX, BP 144/79 MM HG, HR 82 /MIN, RR 16 /MIN, TEMP 98.3 F, OXYGEN SAT % 99%, NA INITIALS SC09:26, REVIEWED BY: CS. EXAMINATION CERVICAL SPINE/NECK: RANGE OF MOTION OF NECK:NORMAL IN ALL DIRECTIONS. MOTOR STRENGTH:NORMAL. TRAPEZIUS TENDERNESS:PRESENT BILATERALLY. MYOFASCIAL TRIGGER POINTS:POSITIVE OVER TRAPEZIUS BILATERALLY. GENERAL EXAMINATION: LUNGS:LUNG SOUNDS ARE CLEAR. HEART:HEART RATE REGULAR. MUSCULOSKELETAL:*, MUSCLE STRENGTH TESTING 5/5 BILATERAL, PALPATION: POSITIVE FOR PAIN OVER L/S SPINE. POSITIVE FOR PAIN OVER L/S PARSPINALS.SPECIFIC POINT TENDERNESS BILAT SIJ. DIAGNOSTIC:MRI L/S [id number].. 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 PREVENTIVE MEDICINE PAIN CLINIC TEACHING: MEDICATIONS INFORMATION GIVEN ABOUT AMITRIPTYLINE. PROCEDURE TEACHING PRE PROCEDURE TEACHING DONE. PROCEDURE CODES FA211 ESTABILISHED PATIENT [facility] CHARGE DISPOSITION & COMMUNICATION FOLLOW UP 2WK POST (REASON: TPI NO STEROID-NECK) ELECTRONICALLY SIGNED BY STEPHAN SHAH ON 10/06/2016 AT 02:58 PM EDT DISCLAIMER : THIS IS A VISIT SUMMARY EXTRACTED FROM THE [employer] CHART. IT IS NOT A COPY OF THE [employer] PROGRESS NOTE. JUSTUS
== END ==
LOC: M PAIN 09:00
PROVIDERS: ATTEND Nurse Practitioner Family
DX: G89.29 Other chronic pain (principal); M79.1 Myalgia; M43.02 Spondylolysis, cervical region; M51.26 Other intervertebral disc displacement, lumbar region; E11.9 Type 2 diabetes mellitus without complications; I10 Essential (primary) hypertension; E78.00 Pure hypercholesterolemia, unspecified; E66.9 Obesity, unspecified; K21.9 Gastro-esophageal reflux disease without esophagitis; Z98.84 Bariatric surgery status; F17.210 Nicotine dependence, cigarettes, uncomplicated; Z79.84 Long term (current) use of oral hypoglycemic drugs; Z79.891 Long term (current) use of opiate analgesic; Z79.899 Other long term (current) drug therapy; Z88.2 Allergy status to sulfonamides; Z88.6 Allergy status to analgesic agent; Z68.44 Body mass index [BMI] 60.0-69.9, adult

== ENCOUNTER → 2016-10-22 | Outpatient (CLI) | payer OTHER ==
[~2016-10-22] MED LIST changes: +BUPIVACAINE HCL 0.25% 10 ML VIAL As Ordered ONE; +BUPIVACAINE HCL 0.25% 30 ML VIAL As Ordered ONE; +TRIAMCINOLONE ACETONIDE SUSP 40 MG/ML VIAL (J3301) As Ordered ONE; +diazePAM 5 MG TAB As Ordered ONE; +oxyCODONE 5MG TAB As Ordered ONE
--- NOTE | 2016-11-01 23:54 | ECWPNPC ---
PATIENT NAME: STELLA TAVERAS : 1975 GENDER: FEMALE VISIT DATE: 10/22/2016 DISCHARGE DATE: 10/22/16 0950 VISIT LOCKED DATE TIME: PHYSICIAN: AMELIA LAI RESOURCE: AMELIA LAI REASON FOR APPOINTMENT 1. NECK HISTORY OF PRESENT ILLNESS HISTORY OF PRESENT ILLNESS: PAIN THE PATIENT DESCRIBES THE PAIN... FALL RISK SCREENING: SCREENING :NO FALLS IN THE PAST YEAR CURRENT MEDICATIONS TAKING ABILIFY 5 MG TABLET 1 TABLET ORALLY ONCE A DAY TAKING CETIRIZINE HCL 10 MG TABLET ORALLY ONCE A DAY TAKING FLONASE 50 MCG/ACT SUSPENSION 1 SPRAY IN EACH NOSTRIL NASALLY ONCE A DAY NEEDED TAKING LOSARTAN POTASSIUM 25 MG TABLET ORALLY DAILY TAKING MONTELUKAST SODIUM 10 MG TABLET 1 TABLET ORALLY ONCE A DAY TAKING DITROPAN XL 10 MG TABLET EXTENDED RELEASE 24 HOUR 1 TABLET ORALLY ONCE A DAY TAKING OMEPRAZOLE 40 MG CAPSULE DELAYED RELEASE 1 CAPSULE ORALLY BID TAKING VITAMIN B12 500 TABLET 500 MCG ORALLY DAILY TAKING MULTIVITAMIN 1 TABLET CHEWABLE 1 TAB(S) ORALLY DAILY TAKING SUMATRIPTAN SUCCINATE 50 MG TABLET 1 TABLET NEEDED ORALLY DIRECTED TAKING CALCIUM CITRATE + 630 MG TABLET 2 TABLET WITH MEALS ORALLY TWICE A DAY TAKING LASIX 40 MG TABLET 1 TABLET ORALLY BID TAKING METFORMIN HCL 1000 MG TABLET 1 TABLET WITH MEALS ORALLY TWICE A DAY TAKING IRON 1 TAB ORAL DAILY TAKING COLACE 100 MG CAPSULE 1 CAPSULE NEEDED ORALLY 3X/DAY TAKING LYRICA 100 MG CAPSULE 1 CAPSULE ORALLY TWICE A DAY MDD2, NOTES: HASNT TAKEN TAKING CYMBALTA 90 MG CAPSULE DELAYED RELEASE PARTICLES 1 CAPSULE ORALLY 30MG CAP AND 60 MG CAP DAILY TAKING GABAPENTIN 600 MG TABLET 1 CAPSULE ORALLY TID TAKING AMITRIPTYLINE HCL 25 MG TABLET 1 TABLET ORALLY ONCE A DAY AT HS TAKING OXYCODONE HCL 5 MG TABLET 1 TABLET ORALLY EVERY 6 HRS PRN FOR PAIN MDD2 PAST MEDICAL HISTORY DIABETES HYPERTENSION HYPERCHOLESTEREMIA OBESITY GERD (GASTROESOPHAGEAL REFLUX DISEASE) GASTRIC BYPASS ALLERGIES SULFA (FOR ALLERGY USE ONLY): RASH: ALLERGY NSAIDS: GASTRIC BYPASS: CONTRAINDICATION SOCIAL HISTORY GENERAL: TOBACCO USE ARE YOU A:CURRENT SMOKER PATIENT COUNSELED ON THE DANGERS OF TOBACCO USE AND URGED TO QUIT:06/16/2016 ARE YOU INTERESTED IN QUITTING?READY TO QUIT COUNSELED THE PATIENT ON TOBACCO USE, CESSATION [id number]/28/2017 SMOKING CESSATION INFORMATION GIVEN10/22/2016 CAODAISM [id number] NONE LEARNING BARRIERS / SPECIAL NEEDS BARRIERS TO LEARNING?NO VISION IMPAIRED?YES WEARS GLASSES LEARNING PREFERENCES?NO NEW PATIENT PAIN DIARY TODAY'S VISIT NOTES, FROM 0-10, WHAT LEVEL IS YOUR PAIN TODAY? 0. PAIN CLINIC PFS, CLERGY, PUBLIC HEALTH REFERRALS PFS REFERRAL NEEDED?NO CLERGY REFERRAL NEEDED?NO PUBLIC HEALTH REFERRAL NEEDED?NO HAS THE PATIENT BEEN EDUCATED REGARDING HIS/HER PLAN OF CARE?YES HAS THE PATIENT BEEN EDUCATED REGARDING PAIN, THE RISK FOR PAIN, THE IMPORTANCE OF EFFECTIVE PAIN MANAGEMENT, AND THE PAIN ASSESSMENT PROCESS?YES REVIEW OF SYSTEMS REVIEWED BY: PROVIDER: . CONSTITUTIONAL: ANY CHANGE IN YOUR MEDICAL CONDITION? NO . CHILLS NO . FEVER NO . INFECTION: DO YOU HAVE NEW INFECTIONS? NO . DO YOU HAVE HISTORY OF MRSA? NO . MUSCULOSKELETAL: ANY NEW PATTERNS OF PAIN OR NUMBNESS? NO . GASTROENTEROLOGY: ANY NEW CHANGE IN BOWEL CONTROL? NO . GENITOURINARY: ANY NEW CHANGE IN BLADDER CONTROL? NO . IS THERE A CHANCE YOU COULD BE ? NO . HEMATOLOGY/LYMPH: DO YOU TAKE ANY BLOOD THINNERS? (FOR EXAMPLE- COUMADIN, PLAVIX, AGGRENOX, PLATEL, PRADAXA, OR XARELTO) NO . WHEN WAS YOUR LAST DOSE? DATE: TIME: . NEUROLOGY: HAVE YOU FALLEN IN THE PAST 6 MONTHS? NO . ANY NEW EXTREMITY NUMBNESS OR WEAKNESS? NO . CARDIOLOGY: DO YOU HAVE A PACEMAKER OR DEFIBRILLATOR? NO . RESPIRATORY: HAVE YOU BEEN SICK IN THE PAST WEEK? NO . FEVER NO . FLU LIKE SYMPTOMS? NO . COUGH NO . INTEGUMENTARY: DO YOU HAVE ANY RASHES OR OPEN SORES? NO . ALLERGIC/IMMUNO: ARE YOU ALLERGIC TO SHELLFISH OR IV DYE? NO . ANY NEW ALLERGIES? NO . PSYCHIATRIC: DO YOU HAVE THOUGHTS OF HURTING YOURSELF OR SOMEONE ELSE? NO . ARE YOU ABUSED, NEGLECTED, OR IN AN UNSAFE ENVIRONMENT? NO . ENDOCRINOLOGY: ARE YOU DIABETIC? YES . OTHER: DO YOU NEED ANY PRESCRIPTIONS? NO . IF YES, PLEASE LIST: ____ . ANY NEW PROBLEMS WITH YOUR MEDICATIONS? NO . WHEN DID YOU LAST EAT? ____ . WHEN DID YOU LAST DRINK? ____ . WHAT DID YOU LAST DRINK? ____ . NAME OF PERSON DRIVING YOU HOME? ____ . DO YOU HAVE ANY OTHER QUESTIONS OR CONCERNS NO . VITAL SIGNS WT 328.6 LBS, HT 60.5 IN, BMI 63.11 INDEX, BP 126/83 MM HG, HR 72 /MIN, RR 16 /MIN, TEMP 97.3 F, OXYGEN SAT % 98%, NA INITIALS SC 08:54, REVIEWED BY: KG. ASSESSMENTS MYALGIA - M79.1 (PRIMARY) PROCEDURES PN TRIGGER POINT INJECTION WITH STEROIDS PRE PROCEDURE DIAGNOSIS 1. MYALGIA 2. PAIN AT BILATERAL NECK AREA POST PROCEDURE DIAGNOSIS 1. MYALGIA 2. PAIN AT BILATERAL NECK AREA PROCEDURE TRIGGER POINT INJECTION AT BILATERAL NECK AREA SURGEON DR. AMELIA LAI BRIDGE RIGGER NONE ANESTHESIA LOCAL PRE PROCEDURE NOTE THE PATIENT HAS A HISTORY OF CHRONIC PAIN AT THE RIGHT AND LEFT NECK AREA. I EVALUATE THE PATIENT AND REVIEWED THE CHART. THERE IS EVIDENCE OF BANDS OF TISSUE WITH RESTRICTION OF MOVEMENT AND PRESENCE OF TRIGGER POINT AT THE AFFECTED AREA. I WENT OVER THE RISKS, ALTERNATIVES, AND BENEFITS ASSOCIATED WITH THIS PROCEDURE. THE PATIENT WOULD LIKE TO PROCEED AND GIVE CONSENT TO PERFORMED THE PROCEDURE. THE PATIENT DENIES UNEXPLAINABLE WEIGHT LOSS, FEVER, CHILLS, OR NEW CHANGES IN URINARY OR BOWEL CONTROL DESCRIPTION OF PROCEDURE THE PATIENT WAS BROUGHT TO THE PROCEDURE ROOM AND PLACED IN THE SITTING POSITION. THE AREA WAS CLEANED WITH ALCOHOL. THE PROCEDURE WAS DONE USING ASEPTIC STERILE TECHNIQUE. I CHECKED LATERALITY AND THE LEVEL WHERE THE PROCEDURE WAS GOING TO BE PERFORMED WITH THE PATIENT AND THE SUPPORTING STAFF AT THE MOMENT OF THE TIME OUT IN THE PROCEDURE ROOM. USING A 25-GAUGE NEEDLE, TRIGGER POINTS WERE INJECTED AT THE RIGHT AND LEFT NECK AREA WITH A TOTAL OF 40 ML OF BUPIVACAINE 0.25% AND KENALOG 40 MG. THERE WAS NO EVIDENCE OF BLOOD, PARESTHESIA OR CEREBROSPINAL FLUID DURING THE PROCEDURE. THE PATIENT WAS SENT TO THE RECOVERY ROOM. THE PATIENT WAS MOVING THE EXTREMITIES AND DOING WELL. THERE WAS NO COMPLICATION DURING THE PROCEDURE POST PROCEDURE NOTE THE PATIENT WILL BE SEEN IN A FOLLOW UP IN THE NEXT FEW WEEKS. INSTRUCTIONS WERE GIVEN, QUESTIONS WERE ANSWERED, AND THE PATIENT EXPRESSED UNDERSTANDING AND AGREES WITH THE PLAN. I, RAQUEL SONI, DOCUMENTED THE ABOVE INFORMATION ACTING A SCRIBE FOR DR. LAI. I HAVE REVIEWED THE ABOVE DOCUMENT, WRITTEN BY RAQUEL YANES AND I VERIFY THAT IT IS ACCURATE PROCEDURE CODES 97535 INJ TRIGGER POINT 04/20 [facility] DISPOSITION & COMMUNICATION FOLLOW UP 3 WEEKS ELECTRONICALLY SIGNED BY AMELIA LAI MD ON 11/01/2016 AT 10:23 PM EDT DISCLAIMER : THIS IS A VISIT SUMMARY EXTRACTED FROM THE [employer] CHART. IT IS NOT A COPY OF THE [employer] PROGRESS NOTE. JUSTUS
== END ==
LOC: M PAIN 08:30
PROVIDERS: ATTEND Anesthesiology
DX: G89.29 Other chronic pain (principal); M79.1 Myalgia; M54.2 Cervicalgia; Z79.891 Long term (current) use of opiate analgesic; Z79.899 Other long term (current) drug therapy; F17.210 Nicotine dependence, cigarettes, uncomplicated; Z88.2 Allergy status to sulfonamides; Z88.8 Allergy status to other drugs, medicaments and biological substances

== ENCOUNTER → 2016-11-11 | Outpatient (CLI) | payer OTHER ==
[~2016-11-11] MED LIST changes: -BUPIVACAINE HCL 0.25% 10 ML VIAL As Ordered ONE; -BUPIVACAINE HCL 0.25% 30 ML VIAL As Ordered ONE; -TRIAMCINOLONE ACETONIDE SUSP 40 MG/ML VIAL (J3301) As Ordered ONE; -diazePAM 5 MG TAB As Ordered ONE; -oxyCODONE 5MG TAB As Ordered ONE
--- NOTE | 2016-12-04 01:33 | ECWPNPC ---
PATIENT NAME: STELLA TAVERAS : 1975 GENDER: FEMALE VISIT DATE: 11/11/2016 DISCHARGE DATE: 11/11/16 1104 VISIT LOCKED DATE TIME: PHYSICIAN: PATRICIA MCNAMARA RESOURCE: PATRICIA MCNAMARA REASON FOR APPOINTMENT 1. POST TPI HISTORY OF PRESENT ILLNESS HISTORY OF PRESENT ILLNESS: HERE FOR POST PROCEDURE F/U.CHIEF AREA OF PAIN IS LOW BACK,RIGHT HIP AND THIGH. AND UPPER BACK.HERE FOR POST PROCEDURE F/U.HAD TPI BILAT. NECK ON 10-22-16..DESCRIBES PAIN CONSTANT AND ACHING.RATING LBP 7/10 AND NECK PAIN 3/10.SHE IS ACTIVELLY TRYING TO LOOSE WEIGHT.HAS LOST 6 POUNDS OVER THE PAST 6 WEEKS.USING OXYCODONE PERIODICALLY FOR SEVERE PAIN.FORGOT TO BRING MEDICATION WITH HER.INSTRUCTED TO BRING ALL MEDICATION I PRESCRIBE TO ALL VISITS WITH ME. PAIN THE PATIENT DESCRIBES THE PAIN... THE PATIENT DESCRIBES THE PAIN... THE PATIENT DESCRIBES THE PAIN... FALL RISK SCREENING: SCREENING :NO FALLS IN THE PAST YEAR CURRENT MEDICATIONS TAKING ABILIFY 5 MG TABLET 1 TABLET ORALLY ONCE A DAY TAKING CETIRIZINE HCL 10 MG TABLET ORALLY ONCE A DAY TAKING FLONASE 50 MCG/ACT SUSPENSION 1 SPRAY IN EACH NOSTRIL NASALLY ONCE A DAY NEEDED TAKING LOSARTAN POTASSIUM 25 MG TABLET ORALLY DAILY TAKING MONTELUKAST SODIUM 10 MG TABLET 1 TABLET ORALLY ONCE A DAY TAKING DITROPAN XL 10 MG TABLET EXTENDED RELEASE 24 HOUR 1 TABLET ORALLY ONCE A DAY TAKING OMEPRAZOLE 40 MG CAPSULE DELAYED RELEASE 1 CAPSULE ORALLY BID TAKING VITAMIN B12 500 TABLET 500 MCG ORALLY DAILY TAKING MULTIVITAMIN 1 TABLET CHEWABLE 1 TAB(S) ORALLY DAILY TAKING SUMATRIPTAN SUCCINATE 50 MG TABLET 1 TABLET NEEDED ORALLY DIRECTED TAKING CALCIUM CITRATE + 630 MG TABLET 2 TABLET WITH MEALS ORALLY TWICE A DAY TAKING LASIX 40 MG TABLET 1 TABLET ORALLY BID TAKING METFORMIN HCL 1000 MG TABLET 1 TABLET WITH MEALS ORALLY TWICE A DAY TAKING IRON 1 TAB ORAL DAILY TAKING COLACE 100 MG CAPSULE 1 CAPSULE NEEDED ORALLY 3X/DAY TAKING LYRICA 100 MG CAPSULE 1 CAPSULE ORALLY TWICE A DAY MDD2, NOTES: HASNT TAKEN TAKING CYMBALTA 90 MG CAPSULE DELAYED RELEASE PARTICLES 1 CAPSULE ORALLY 30MG CAP AND 60 MG CAP DAILY TAKING GABAPENTIN 600 MG TABLET 1 CAPSULE ORALLY TID TAKING AMITRIPTYLINE HCL 25 MG TABLET 1 TABLET ORALLY ONCE A DAY AT HS TAKING OXYCODONE HCL 5 MG TABLET 1 TABLET ORALLY EVERY 6 HRS PRN FOR PAIN MDD2 TAKING MISOPROSTOL 200 MCG TABLET 1 TABLET WITH FOOD ORALLY FOUR TIMES A DAY MEDICATION LIST REVIEWED AND RECONCILED WITH THE PATIENT PAST MEDICAL HISTORY DIABETES HYPERTENSION HYPERCHOLESTEREMIA OBESITY GERD (GASTROESOPHAGEAL REFLUX DISEASE) GASTRIC BYPASS ALLERGIES SULFA (FOR ALLERGY USE ONLY): RASH: ALLERGY NSAIDS: GASTRIC BYPASS: CONTRAINDICATION SURGICAL HISTORY GASTRIC BYPASS 06/2015 BILAT CARPAL TUNNEL C SECTION CHOLECYSTECTOMY TONSILLECTOMY & ADENOIDECTOMY HOSPITALIZATION/MAJOR DIAGNOSTIC PROCEDURE SURGERIES REVIEW OF SYSTEMS REVIEWED BY: PROVIDER: PATRICIA ROTHMAN . CONSTITUTIONAL: ANY CHANGE IN YOUR MEDICAL CONDITION? NO . CHILLS NO . FEVER NO . INFECTION: DO YOU HAVE NEW INFECTIONS? NO . DO YOU HAVE HISTORY OF MRSA? NO . MUSCULOSKELETAL: ANY NEW PATTERNS OF PAIN OR NUMBNESS? NO . GASTROENTEROLOGY: ANY NEW CHANGE IN BOWEL CONTROL? NO . GENITOURINARY: ANY NEW CHANGE IN BLADDER CONTROL? NO . IS THERE A CHANCE YOU COULD BE ? NO . HEMATOLOGY/LYMPH: DO YOU TAKE ANY BLOOD THINNERS? (FOR EXAMPLE- COUMADIN, PLAVIX, AGGRENOX, PLATEL, PRADAXA, OR XARELTO) NO . WHEN WAS YOUR LAST DOSE? DATE: TIME: . NEUROLOGY: HAVE YOU FALLEN IN THE PAST 6 MONTHS? NO . ANY NEW EXTREMITY NUMBNESS OR WEAKNESS? NO . CARDIOLOGY: DO YOU HAVE A PACEMAKER OR DEFIBRILLATOR? NO . RESPIRATORY: HAVE YOU BEEN SICK IN THE PAST WEEK? NO . FEVER NO . FLU LIKE SYMPTOMS? NO . COUGH NO . INTEGUMENTARY: DO YOU HAVE ANY RASHES OR OPEN SORES? NO . ALLERGIC/IMMUNO: ARE YOU ALLERGIC TO SHELLFISH OR IV DYE? NO . ANY NEW ALLERGIES? NO . PSYCHIATRIC: DO YOU HAVE THOUGHTS OF HURTING YOURSELF OR SOMEONE ELSE? NO . ARE YOU ABUSED, NEGLECTED, OR IN AN UNSAFE ENVIRONMENT? NO . ENDOCRINOLOGY: ARE YOU DIABETIC? YES . OTHER: DO YOU NEED ANY PRESCRIPTIONS? YES, OXYCODONE . IF YES, PLEASE LIST: ____ . ANY NEW PROBLEMS WITH YOUR MEDICATIONS? NO . WHEN DID YOU LAST EAT? ____ . WHEN DID YOU LAST DRINK? ____ . WHAT DID YOU LAST DRINK? ____ . NAME OF PERSON DRIVING YOU HOME? ____ . DO YOU HAVE ANY OTHER QUESTIONS OR CONCERNS NO . VITAL SIGNS WT 324.2 LBS, HT 60.5 IN, BMI 62.27 INDEX, BP 140/72 MM HG, HR 93 /MIN, RR 18 /MIN, TEMP 97.9 F, OXYGEN SAT % 96%, SAFE IN ENV? (Y/N) Y, NA INITIALS TL 1009, REVIEWED BY: CAMILLE. EXAMINATION GENERAL EXAMINATION: LUNGS:LUNG SOUNDS ARE CLEAR. HEART:HEART RATE REGULAR. MUSCULOSKELETAL:*, MUSCLE STRENGTH TESTING 5/5 BILATERAL, PALPATION: POSITIVE FOR PAIN OVER L/S SPINE. POSITIVE FOR PAIN OVER L/S PARSPINALS.SPECIFIC POINT TENDERNESS BILAT SIJ. DIAGNOSTIC:MRI L/S [id number].MRI [id number]. 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 PROCEDURE CODES FA211 ESTABILISHED PATIENT [facility] CHARGE DISPOSITION & COMMUNICATION FOLLOW UP POST PROCEDURE (REASON: INTRALAMINAL L4/5 LESI) ELECTRONICALLY SIGNED BY STEPHAN SHAH ON 12/02/2016 AT 05:19 PM EDT DISCLAIMER : THIS IS A VISIT SUMMARY EXTRACTED FROM THE [employer] CHART. IT IS NOT A COPY OF THE [employer] PROGRESS NOTE. JUSTUS
== END ==
LOC: M PAIN 10:00
PROVIDERS: ATTEND Nurse Practitioner Family
DX: M79.1 Myalgia (principal); M51.26 Other intervertebral disc displacement, lumbar region; Z79.84 Long term (current) use of oral hypoglycemic drugs; Z79.891 Long term (current) use of opiate analgesic; Z79.899 Other long term (current) drug therapy; Z88.2 Allergy status to sulfonamides; Z88.8 Allergy status to other drugs, medicaments and biological substances

== ENCOUNTER → 2016-11-25 | Outpatient (CLI) | payer OTHER ==
[~2016-11-25] MED LIST changes: +ISOVUE-M 300 61% 15ML VIAL (Q9967) As Ordered ONE; +LIDOCAINE 1% SDV INJ 30 ML VIAL As Ordered ONE; +diazePAM 5 MG TAB As Ordered ONE; +methylPREDNISolone SUSP 40 MG/ML (DEPO-medrol) VIAL (J1030) As Ordered ONE; +oxyCODONE 5MG TAB As Ordered ONE
--- NOTE | 2016-11-25 17:23 | REP ---
FLUOROSCOPIC GUIDED SPINAL INJECTION: The films were reviewed with Dr. Pagan. The patient has a history of low back pain. The portable C-Arm is provided in the OR for Dr. Woo for fluoroscopic guidance. One intraoperative fluoroscopic spot film was obtained using last image hold technology for needle placement verification for lumbar epidural injection. The film is on the PACs system and is available for review. 31 seconds of fluoroscopy time was utilized for this procedure. Reviewed by MICHAEL Chan 11/26/2016 05:31 PEdited and Signed by Scott Pagan MD 11/27/2016 04:57 P
--- NOTE | 2016-12-15 01:33 | ECWPNPC ---
PATIENT NAME: STELLA TAVERAS : 1975 GENDER: FEMALE VISIT DATE: 11/25/2016 DISCHARGE DATE: 11/25/16 1404 VISIT LOCKED DATE TIME: PHYSICIAN: AMELIA LAI RESOURCE: AMELIA LAI REASON FOR APPOINTMENT 1. INTERLAMINAL L4-5 HISTORY OF PRESENT ILLNESS HISTORY OF PRESENT ILLNESS: PAIN THE PATIENT DESCRIBES THE PAIN... FALL RISK SCREENING: SCREENING :ONE FALL WITH INJURY IN THE PAST YEAR CURRENT MEDICATIONS TAKING ABILIFY 5 MG TABLET 1 TABLET ORALLY ONCE A DAY, NOTES: 11/24/16@0 TAKING CETIRIZINE HCL 10 MG TABLET ORALLY ONCE A DAY, NOTES: 11/24/16 TAKING FLONASE 50 MCG/ACT SUSPENSION 1 SPRAY IN EACH NOSTRIL NASALLY ONCE A DAY NEEDED, NOTES: 1 MONTH AGO TAKING LOSARTAN POTASSIUM 25 MG TABLET ORALLY DAILY, NOTES: 829 TAKING MONTELUKAST SODIUM 10 MG TABLET 1 TABLET ORALLY ONCE A DAY, NOTES: 829 TAKING DITROPAN XL 10 MG TABLET EXTENDED RELEASE 24 HOUR 1 TABLET ORALLY ONCE A DAY, NOTES: 829 TAKING OMEPRAZOLE 40 MG CAPSULE DELAYED RELEASE 1 CAPSULE ORALLY BID, NOTES: 829 TAKING VITAMIN B12 500 TABLET 500 MCG ORALLY DAILY, NOTES: 829 TAKING MULTIVITAMIN 1 TABLET CHEWABLE 1 TAB(S) ORALLY DAILY, NOTES: 11/24/16@1830 TAKING SUMATRIPTAN SUCCINATE 50 MG TABLET 1 TABLET NEEDED ORALLY DIRECTED, NOTES: 1 MONTH AGO TAKING CALCIUM CITRATE + 630 MG TABLET 2 TABLET WITH MEALS ORALLY TWICE A DAY, NOTES: 11/24/16@1200 TAKING LASIX 40 MG TABLET 1 TABLET ORALLY BID, NOTES: 2 DAYS AGO TAKING METFORMIN HCL 1000 MG TABLET 1 TABLET WITH MEALS ORALLY TWICE A DAY, NOTES: 11/24/16@2200 TAKING IRON 1 TAB ORAL DAILY, NOTES: 11/24/16@1800 TAKING COLACE 100 MG CAPSULE 1 CAPSULE NEEDED ORALLY 3X/DAY, NOTES: 829 TAKING CYMBALTA 90 MG CAPSULE DELAYED RELEASE PARTICLES 1 CAPSULE ORALLY 30MG CAP AND 60 MG CAP DAILY, NOTES: 11/24/16@2199 TAKING GABAPENTIN 600 MG TABLET 1 CAPSULE ORALLY TID, NOTES: 829 TAKING AMITRIPTYLINE HCL 25 MG TABLET 1 TABLET ORALLY ONCE A DAY AT HS, NOTES: 11/24/16@2200 TAKING MISOPROSTOL 200 MCG TABLET 1 TABLET WITH FOOD ORALLY FOUR TIMES A DAY, NOTES: 0830 TAKING OXYCODONE HCL 5 MG TABLET 1 TABLET ORALLY EVERY 6 HRS PRN FOR PAIN MDD2, NOTES: 11/24/16@1800 DISCONTINUED LYRICA 100 MG CAPSULE 1 CAPSULE ORALLY TWICE A DAY MDD2, NOTES: HASNT TAKEN MEDICATION LIST REVIEWED AND RECONCILED WITH THE PATIENT PAST MEDICAL HISTORY DIABETES HYPERTENSION HYPERCHOLESTEREMIA OBESITY GERD (GASTROESOPHAGEAL REFLUX DISEASE) GASTRIC BYPASS ALLERGIES SULFA (FOR ALLERGY USE ONLY): RASH: ALLERGY NSAIDS: GASTRIC BYPASS: CONTRAINDICATION SOCIAL HISTORY GENERAL: TOBACCO USE ARE YOU A:CURRENT SMOKER PATIENT COUNSELED ON THE DANGERS OF TOBACCO USE AND URGED TO QUIT:11/25/2016 ARE YOU INTERESTED IN QUITTING?THINKING ABOUT QUITTING COUNSELED THE PATIENT ON SMOKING CESSATION, EDUCATION [id number]/09/2017 SMOKING CESSATION INFORMATION GIVEN10/22/2016 TAOIST [id number] NONE LEARNING BARRIERS / SPECIAL NEEDS BARRIERS TO LEARNING?NO VISION IMPAIRED?YES WEARS GLASSES LEARNING PREFERENCES?NO NEW PATIENT PAIN DIARY TODAY'S VISIT NOTES, FROM 0-10, WHAT LEVEL IS YOUR PAIN TODAY? 0. PAIN CLINIC PFS, CLERGY, PUBLIC HEALTH REFERRALS PFS REFERRAL NEEDED?NO CLERGY REFERRAL NEEDED?NO PUBLIC HEALTH REFERRAL NEEDED?NO HAS THE PATIENT BEEN EDUCATED REGARDING HIS/HER PLAN OF CARE?YES HAS THE PATIENT BEEN EDUCATED REGARDING PAIN, THE RISK FOR PAIN, THE IMPORTANCE OF EFFECTIVE PAIN MANAGEMENT, AND THE PAIN ASSESSMENT PROCESS?YES REVIEW OF SYSTEMS REVIEWED BY: PROVIDER: . CONSTITUTIONAL: ANY CHANGE IN YOUR MEDICAL CONDITION? NO . CHILLS NO . FEVER NO . INFECTION: DO YOU HAVE NEW INFECTIONS? NO . DO YOU HAVE HISTORY OF MRSA? NO . MUSCULOSKELETAL: ANY NEW PATTERNS OF PAIN OR NUMBNESS? NO . GASTROENTEROLOGY: ANY NEW CHANGE IN BOWEL CONTROL? NO . GENITOURINARY: ANY NEW CHANGE IN BLADDER CONTROL? NO . IS THERE A CHANCE YOU COULD BE ? NO . HEMATOLOGY/LYMPH: DO YOU TAKE ANY BLOOD THINNERS? (FOR EXAMPLE- COUMADIN, PLAVIX, AGGRENOX, PLATEL, PRADAXA, OR XARELTO) NO . WHEN WAS YOUR LAST DOSE? DATE: TIME: . NEUROLOGY: HAVE YOU FALLEN IN THE PAST 6 MONTHS? YES . ANY NEW EXTREMITY NUMBNESS OR WEAKNESS? NO . CARDIOLOGY: DO YOU HAVE A PACEMAKER OR DEFIBRILLATOR? NO . RESPIRATORY: HAVE YOU BEEN SICK IN THE PAST WEEK? NO . FEVER NO . FLU LIKE SYMPTOMS? NO . COUGH NO . INTEGUMENTARY: DO YOU HAVE ANY RASHES OR OPEN SORES? NO . ALLERGIC/IMMUNO: ARE YOU ALLERGIC TO SHELLFISH OR IV DYE? NO . ANY NEW ALLERGIES? NO . PSYCHIATRIC: DO YOU HAVE THOUGHTS OF HURTING YOURSELF OR SOMEONE ELSE? NO . ARE YOU ABUSED, NEGLECTED, OR IN AN UNSAFE ENVIRONMENT? NO . ENDOCRINOLOGY: ARE YOU DIABETIC? YES . OTHER: DO YOU NEED ANY PRESCRIPTIONS? NO . IF YES, PLEASE LIST: ____ . ANY NEW PROBLEMS WITH YOUR MEDICATIONS? NO . WHEN DID YOU LAST EAT? ____ . WHEN DID YOU LAST DRINK? ____ . WHAT DID YOU LAST DRINK? ____ . NAME OF PERSON DRIVING YOU HOME? ____SHANNON . DO YOU HAVE ANY OTHER QUESTIONS OR CONCERNS NO . VITAL SIGNS WT 331.6 LBS, HT 60.5 IN, BMI 63.69 INDEX, BP 130/71 MM HG, HR 97 /MIN, RR 18 /MIN, TEMP 97.6 F, OXYGEN SAT % 92%, NA INITIALS AW 1118, REVIEWED BY: VD. ASSESSMENTS INTERVERTEBRAL DISC DISORDERS WITH RADICULOPATHY, LUMBAR REGION - M51.16 (PRIMARY) PROCEDURES PRE PROCEDURE DIAGNOSIS LUMBAR DISC DISORDER WITH RADICULOPATHY POST PROCEDURE DIAGNOSIS LUMBAR DISC DISORDER WITH RADICULOPATHY PROCEDURE LUMBAR EPIDURAL STEROID INJECTION UNDER FLUOROSCOPIC GUIDANCE SURGEON DR. AMELIA LAI STONE LAYOUT MARKER NONE ANESTHESIA LOCAL PRE PROCEDURE NOTE THE PATIENT HAS A HISTORY OF CHRONIC LOW BACK PAIN. I EVALUATE THE PATIENT AND REVIEWED THE CHART. I WENT OVER THE RISKS, ALTERNATIVES, AND BENEFITS ASSOCIATED WITH THIS PROCEDURE. THE PATIENT WOULD LIKE TO PROCEED AND GIVE CONSENT TO PERFORMED THE PROCEDURE. THE PATIENT DENIES UNEXPLAINABLE WEIGHT LOSS, FEVER, CHILLS, OR NEW CHANGES IN URINARY OR BOWEL CONTROL. DESCRIPTION OF PROCEDURE THE PATIENT WAS BROUGHT TO THE PROCEDURE ROOM AND PLACED IN THE PRONE POSITION. THE LUMBOSACRAL AREA WAS CLEANED WITH BETADINE SOLUTION AND DRAPED ASEPTICALLY. THE PROCEDURE WAS DONE UNDER STERILE CONDITIONS. I CHECKED LATERALITY AND THE LEVEL WHERE THE PROCEDURE WAS GOING TO BE PERFORMED WITH THE PATIENT AND THE SUPPORTING STAFF AT THE MOMENT OF THE TIME OUT IN THE PROCEDURE ROOM. UNDER FLUOROSCOPIC GUIDANCE, THE TARGET POINT WAS SELECTED AT THE INTERLAMINAR LEVEL OF L2-L3. LIDOCAINE WAS USED TO NUMB THE SKIN AND THE SUBCUTANEOUS TISSUE BELOW IT. EPIDURAL TUOHY NEEDLE, 17-GAUGE, WAS ADVANCED UNDER FLUOROSCOPIC GUIDANCE AND FOLLOWING PATIENT FEEDBACK UNTIL THE EPIDURAL SPACE WAS REACHED, 7 CM DEEP INTO THE SKIN BY THE LOSS OF RESISTANCE TECHNIQUE. ISOVUE M DYE 30%, 0.25 ML, WAS INJECTED SHOWING ADEQUATE SPREAD OF THE DYE. THEN, A SOLUTION OF 3 ML OF NORMAL SALINE WITH DEPO-MEDROL 60 MG WAS INJECTED SLOWLY FOLLOWING PATIENT FEEDBACK. THERE WAS NO EVIDENCE OF BLOOD, PARESTHESIA OR CEREBROSPINAL FLUID DURING THE PROCEDURE. THE PATIENT WAS SENT TO THE RECOVERY ROOM. THE PATIENT WAS MOVING THE EXTREMITIES AND DOING WELL. THERE WAS NO COMPLICATION DURING THE PROCEDURE. FLUOROSCOPY TIME WAS 31 SECONDS. POST PROCEDURE NOTE THE PATIENT WILL BE SEEN IN A FOLLOW UP IN THE NEXT FEW WEEKS. INSTRUCTIONS WERE GIVEN, QUESTIONS WERE ANSWERED, AND THE PATIENT EXPRESSED UNDERSTANDING AND AGREES WITH THE PLAN. I, RAQUEL SONI, DOCUMENTED THE ABOVE INFORMATION ACTING A SCRIBE FOR DR. LAI. I HAVE REVIEWED THE ABOVE DOCUMENT, WRITTEN BY RAQUEL YANES AND I VERIFY THAT IT IS ACCURATE DIAGNOSTIC IMAGING [facility] FLUORO GUIDE SPINE INJECTION (PAIN)[id number] PROCEDURE CODES 48643 LUMBAR/SACRAL W/ IMAGING 6045F RADXPS IN END [id number] PXD DISPOSITION & COMMUNICATION FOLLOW UP 3 WEEKS ELECTRONICALLY SIGNED BY AMELIA LAI MD ON 12/14/2016 AT 11:41 AM EDT DISCLAIMER : THIS IS A VISIT SUMMARY EXTRACTED FROM THE [employer] CHART. IT IS NOT A COPY OF THE [employer] PROGRESS NOTE. MTDD
== END ==
LOC: M PAIN 11:00
PROVIDERS: ATTEND Anesthesiology
DX: G89.29 Other chronic pain (principal); M54.5 Low back pain; I10 Essential (primary) hypertension; M51.16 Intervertebral disc disorders with radiculopathy, lumbar region; E11.9 Type 2 diabetes mellitus without complications; E78.00 Pure hypercholesterolemia, unspecified; K21.9 Gastro-esophageal reflux disease without esophagitis; Z98.84 Bariatric surgery status; Z79.84 Long term (current) use of oral hypoglycemic drugs; Z79.891 Long term (current) use of opiate analgesic; Z79.899 Other long term (current) drug therapy; Z88.2 Allergy status to sulfonamides; Z88.8 Allergy status to other drugs, medicaments and biological substances; F17.210 Nicotine dependence, cigarettes, uncomplicated
CPT/HCPCS: 62323; J1030; Q9967

== ENCOUNTER 2016-12-14 11:45 | Outpatient (RCR) | payer OTHER ==
[~2016-12-14 11:45] MED LIST changes: -AMIT25TA; -CIPR-249 PO; -IRON65TA PO; -ISOVUE-M 300 61% 15ML VIAL (Q9967) As Ordered ONE; -LIDOCAINE 1% SDV INJ 30 ML VIAL As Ordered ONE; -SUMA50TA2; -TRAM50TA2 PO; -ZITHTAB PO; -diazePAM 5 MG TAB As Ordered ONE; -methylPREDNISolone SUSP 40 MG/ML (DEPO-medrol) VIAL (J1030) As Ordered ONE; -oxyCODONE 5MG TAB As Ordered ONE
[2016-12-14] MEDS ORDERED: IRON65TA PO (12:50)
== END 2016-12-17 ==
LOC: M PT 11:45
PROVIDERS: ATTEND Podiatrist Foot & Ankle Surgery
DX: Z51.89 Encounter for other specified aftercare (principal); M65.871 Other synovitis and tenosynovitis, right ankle and foot

== ENCOUNTER 2016-12-14 12:39 | Emergency (ER) | payer OTHER ==
[~2016-12-14] VITALS: Ht 157.5 cm; Wt 147.3 kg
[2016-12-14 12:40] VITALS: BP 127/81
[2016-12-14] MEDS ORDERED: IRON65TA PO (12:50)
== END 2016-12-14 15:28 | disposition left against medical advice (07) ==
LOC: M ED 12:39
DX: M25.559 Pain in unspecified hip (principal); Z53.21 Procedure and treatment not carried out due to patient leaving prior to being seen by health care provider

== ENCOUNTER 2016-12-20 21:23 | Emergency (ER) | payer OTHER ==
[~2016-12-20] VITALS: Ht 157.5 cm; Wt 147.3 kg
[~2016-12-20 21:23] MED LIST changes: +IRON65TA PO
[2016-12-20 22:00] LABS: CONTROL LINE UCG INT CTR LINE PRESENT
[2016-12-20] MEDS ORDERED: CIPR-249 PO (22:32)
[2016-12-20 22:40] VITALS: BP 154/82
[2016-12-20] MEDS ORDERED: CIPROFLOXACIN 500 MG TAB PO ONE (22:45)
== END 2016-12-20 22:48 | disposition home or self-care (01) ==
LOC: M ED 21:23
DX: N39.0 Urinary tract infection, site not specified (principal); E11.9 Type 2 diabetes mellitus without complications; I10 Essential (primary) hypertension

== ENCOUNTER 2016-12-25 12:15 | Outpatient (RCR) | payer OTHER ==
[~2016-12-25 12:15] MED LIST changes: -AMIT25TA; -SUMA50TA2; -TRAM50TA2 PO; -ZITHTAB PO
[2017-01-10] MEDS ORDERED: ALBU17IN INH (12:26)
[2017-01-10] MEDS ORDERED: ZITHTAB PO (12:26)
== END 2017-01-16 ==
LOC: M PT 12:15
PROVIDERS: ATTEND Podiatrist Foot & Ankle Surgery
DX: Z51.89 Encounter for other specified aftercare (principal); M65.871 Other synovitis and tenosynovitis, right ankle and foot

== ENCOUNTER → 2016-12-25 | Outpatient (CLI) | payer OTHER ==
[~2016-12-25] MED LIST changes: +AMIT25TA; +CIPR-249 PO; +SUMA50TA2; +TRAM50TA2 PO; +ZITHTAB PO
== END ==
LOC: M LAB 12:01
PROVIDERS: ATTEND Family Medicine
DX: E11.9 Type 2 diabetes mellitus without complications (principal)

== ENCOUNTER 2017-01-10 10:42 | Emergency (ER) | payer OTHER ==
[~2017-01-10] VITALS: Ht 157.5 cm; Wt 145.4 kg
[2017-01-10 10:42] VITALS: BP 122/66
[2017-01-10] MEDS ORDERED: ALBUTEROL 90 MCG/ACT 8GM HFA INHALER INH ONE (12:15)
[2017-01-10] MEDS ORDERED: AZITHROMYCIN 250 MG TAB PO ONE (12:15)
[2017-01-10] MEDS ORDERED: ZITHTAB PO (12:26)
[2017-01-10] MEDS ORDERED: ALBU17IN INH (12:26)
== END 2017-01-10 12:34 | disposition home or self-care (01) ==
LOC: M ED 10:42
DX: H92.03 Otalgia, bilateral (principal); J02.9 Acute pharyngitis, unspecified; R06.2 Wheezing; I10 Essential (primary) hypertension; E11.9 Type 2 diabetes mellitus without complications; G43.909 Migraine, unspecified, not intractable, without status migrainosus; G47.33 Obstructive sleep apnea (adult) (pediatric); Z98.84 Bariatric surgery status; Z79.899 Other long term (current) drug therapy; Z79.84 Long term (current) use of oral hypoglycemic drugs; Z88.2 Allergy status to sulfonamides; F17.210 Nicotine dependence, cigarettes, uncomplicated

== ENCOUNTER 2017-01-28 09:51 | Emergency (ER) | payer OTHER ==
[~2017-01-28] VITALS: Ht 157.5 cm; Wt 147.7 kg
[~2017-01-28 09:51] MED LIST changes: +ZITHTAB PO
[2017-01-28] MEDS ORDERED: SUMA50TA2 (10:01)
[2017-01-28] MEDS ORDERED: AMIT25TA (10:01)
[2017-01-28] MEDS ORDERED: TRAM50TA2 PO (10:12)
[2017-01-28] MEDS ORDERED: ROBA500T PO (10:14)
[2017-01-28] MEDS ORDERED: METHOCARBAMOL 500 MG TAB PO ONE (10:15)
[2017-01-28] MEDS ORDERED: traMADol 50 MG TAB PO ONE (10:15)
[2017-01-28 10:39] VITALS: BP 138/72
== END 2017-01-28 10:41 | disposition home or self-care (01) ==
LOC: M ED 09:51
DX: M54.41 Lumbago with sciatica, right side (principal); E11.9 Type 2 diabetes mellitus without complications; I10 Essential (primary) hypertension; Z86.73 Personal history of transient ischemic attack (TIA), and cerebral infarction without residual deficits; Z98.84 Bariatric surgery status; Z72.0 Tobacco use

== ENCOUNTER → 2017-01-29 | Outpatient (CLI) | payer OTHER ==
[~2017-01-29] MED LIST changes: +AMIT25TA; +SUMA50TA2; +TRAM50TA2 PO
--- NOTE | 2017-02-08 00:10 | ECWPNPC ---
PATIENT NAME: STELLA TAVERAS : 1975 GENDER: FEMALE VISIT DATE: 01/29/2017 DISCHARGE DATE: 01/29/17 1037 VISIT LOCKED DATE TIME: PHYSICIAN: AMELIA LAI RESOURCE: AMELIA LAI HISTORY OF PRESENT ILLNESS HISTORY OF PRESENT ILLNESS: PAIN THE PATIENT DESCRIBES THE PAIN... 41 YEAR OLD FEMALE PATIENT WITH HISTORY OF CHRONIC NECK AND BACK PAIN. PATIENT DESCRIBES THE PAIN ACHING, SHARP, STABBING, TENDER, THROBBING, SORE, SHOOTING, AND HAVING IT ALL THE TIME WITH A PAIN SCORE OF 7/10 FOR THE NECK AND 10/10 FOR THE BACK. PATIENT RECEIVED A LUMBAR EPIDURAL ON 11/25/16 AND REPORTS ONLY HAVING A FEW DAYS OF RELIEF FROM THE PAIN. CURRENTLY THE PATIENT IS USING CYMBALTA, OXYCODONE, TRAMADOL, METHOCARBAMOL, GABAPENTIN, AND AMITRIPTYLINE AND STATES THAT THE MEDICATIONS TAKES THE EDGE OFF BUT SHE IS STILL IN CONSTANT PAIN. PATIENT STATES THAT ANY TYPE OF ACTIVITY INCREASES HER PAIN INCLUDING STANDING, SITTING, AND WALKING. PATIENT DENIES UNEXPLAINABLE WEIGHT LOSS, FEVER, CHILLS, NEW CHANGES ON HER URINARY OR BOWEL CONTROL. FALL RISK SCREENING: SCREENING :NO FALLS IN THE PAST YEAR CURRENT MEDICATIONS TAKING ABILIFY 5 MG TABLET 1 TABLET ORALLY ONCE A DAY TAKING CETIRIZINE HCL 10 MG TABLET ORALLY ONCE A DAY TAKING FLONASE 50 MCG/ACT SUSPENSION 1 SPRAY IN EACH NOSTRIL NASALLY ONCE A DAY NEEDED TAKING LOSARTAN POTASSIUM 25 MG TABLET ORALLY DAILY TAKING MONTELUKAST SODIUM 10 MG TABLET 1 TABLET ORALLY ONCE A DAY TAKING DITROPAN XL 10 MG TABLET EXTENDED RELEASE 24 HOUR 1 TABLET ORALLY ONCE A DAY TAKING OMEPRAZOLE 40 MG CAPSULE DELAYED RELEASE 1 CAPSULE ORALLY BID TAKING VITAMIN B12 500 TABLET 500 MCG ORALLY DAILY TAKING MULTIVITAMIN 1 TABLET CHEWABLE 1 TAB(S) ORALLY DAILY TAKING SUMATRIPTAN SUCCINATE 50 MG TABLET 1 TABLET NEEDED ORALLY DIRECTED TAKING CALCIUM CITRATE + 630 MG TABLET 2 TABLET WITH MEALS ORALLY TWICE A DAY TAKING LASIX 40 MG TABLET 1 TABLET ORALLY BID TAKING METFORMIN HCL 1000 MG TABLET 1 TABLET WITH MEALS ORALLY TWICE A DAY TAKING IRON 1 TAB ORAL DAILY TAKING COLACE 100 MG CAPSULE 1 CAPSULE NEEDED ORALLY 3X/DAY TAKING CYMBALTA 90 MG CAPSULE DELAYED RELEASE PARTICLES 1 CAPSULE ORALLY 30MG CAP AND 60 MG CAP DAILY TAKING GABAPENTIN 600 MG TABLET 1 CAPSULE ORALLY TID TAKING MISOPROSTOL 200 MCG TABLET 1 TABLET WITH FOOD ORALLY FOUR TIMES A DAY TAKING OXYCODONE HCL 5 MG TABLET 1 TABLET ORALLY EVERY 6 HRS PRN FOR PAIN MDD2 TAKING AMITRIPTYLINE HCL 25 MG TABLET 1 TABLET ORALLY ONCE A DAY TAKING OXYCODONE HCL 5 MG TABLET 1 TABLET NEEDED ORALLY DAILY PRN PAIN MDD=1. 30 TABS FOR 30 DAY SUPPLY TAKING TRAMADOL HCL 50 MG TABLET 1 TAB ORALLY EVERY 6 HOURS NEEDED/MMD#4 TAKING METHOCARBAMOL 500 MG TABLET 2 TABLETS ORALLY EVERY 6 HRS PRN NOT-TAKING AMITRIPTYLINE HCL 25 MG TABLET 1 TABLET ORALLY ONCE A DAY AT HS MEDICATION LIST REVIEWED AND RECONCILED WITH THE PATIENT PAST MEDICAL HISTORY DIABETES HYPERTENSION HYPERCHOLESTEREMIA OBESITY GERD (GASTROESOPHAGEAL REFLUX DISEASE) GASTRIC BYPASS ALLERGIES SULFA (FOR ALLERGY USE ONLY): RASH: ALLERGY NSAIDS: GASTRIC BYPASS: CONTRAINDICATION SURGICAL HISTORY GASTRIC BYPASS 06/2015 BILAT CARPAL TUNNEL C SECTION CHOLECYSTECTOMY TONSILLECTOMY & ADENOIDECTOMY SOCIAL HISTORY GENERAL: TOBACCO USE ARE YOU A:CURRENT SMOKER PATIENT COUNSELED ON THE DANGERS OF TOBACCO USE AND URGED TO QUIT:11/25/2016 ARE YOU INTERESTED IN QUITTING?THINKING ABOUT QUITTING COUNSELED THE PATIENT ON SMOKING CESSATION, EDUCATION [id number]/09/2017 SMOKING CESSATION INFORMATION GIVEN10/22/2016 ORTHODOXY [id number] NONE LEARNING BARRIERS / SPECIAL NEEDS BARRIERS TO LEARNING?NO VISION IMPAIRED?YES WEARS GLASSES LEARNING PREFERENCES?NO NEW PATIENT PAIN DIARY TODAY'S VISIT NOTES, FROM 0-10, WHAT LEVEL IS YOUR PAIN TODAY? 0. PAIN CLINIC PFS, CLERGY, PUBLIC HEALTH REFERRALS PFS REFERRAL NEEDED?NO CLERGY REFERRAL NEEDED?NO PUBLIC HEALTH REFERRAL NEEDED?NO HAS THE PATIENT BEEN EDUCATED REGARDING HIS/HER PLAN OF CARE?YES HAS THE PATIENT BEEN EDUCATED REGARDING PAIN, THE RISK FOR PAIN, THE IMPORTANCE OF EFFECTIVE PAIN MANAGEMENT, AND THE PAIN ASSESSMENT PROCESS?YES HOSPITALIZATION/MAJOR DIAGNOSTIC PROCEDURE SURGERIES REVIEW OF SYSTEMS REVIEWED BY: PROVIDER: AMELIA LAI MD . CONSTITUTIONAL: ANY CHANGE IN YOUR MEDICAL CONDITION? YES, PT STATES YESTERDAY SHE HAD SEVERE PAIN IN RIGHT HIP, BACK AND LEG, PT WENT TO [facility] ER WHERE SHE WAS TX'D WITH TRAMADOL AND METHOCARBAMOL. PT STATES PT AND MRI WERE RECOMMENDED. PT REPORTS LESI 11/25/16, PRE PROCEDURE PAIN WAS 10/10, POST PROCEDURE PAIN WAS 6/10, THEN DOWN TO 3/10 SLOWLY CREEPING DAILY TO NECK PAIN 10/26 AND BACK PAIN /10 TODAY . CHILLS NO . FEVER NO . INFECTION: DO YOU HAVE NEW INFECTIONS? YES, 2 WEEKS AGO PT WAS DX'D WITH BRONCHITIS AND TX'D WITH ABX-NAME? PT STATES RELIEF FROM ABX . DO YOU HAVE HISTORY OF MRSA? NO . MUSCULOSKELETAL: ANY NEW PATTERNS OF PAIN OR NUMBNESS? YESRIGHT LEG PAIN AND RIGHT BUTTOCK. PINS AND NEEDLES FEELING FROM RIGHT KNEE TO RIGHT ANKLE . GASTROENTEROLOGY: ANY NEW CHANGE IN BOWEL CONTROL? NO . GENITOURINARY: ANY NEW CHANGE IN BLADDER CONTROL? NO . IS THERE A CHANCE YOU COULD BE ? NO . HEMATOLOGY/LYMPH: DO YOU TAKE ANY BLOOD THINNERS? (FOR EXAMPLE- COUMADIN, PLAVIX, AGGRENOX, PLATEL, PRADAXA, OR XARELTO) NO . WHEN WAS YOUR LAST DOSE? DATE: TIME: . NEUROLOGY: HAVE YOU FALLEN IN THE PAST 6 MONTHS? NO . ANY NEW EXTREMITY NUMBNESS OR WEAKNESS? NO . CARDIOLOGY: DO YOU HAVE A PACEMAKER OR DEFIBRILLATOR? NO . RESPIRATORY: HAVE YOU BEEN SICK IN THE PAST WEEK? NO . FEVER NO . FLU LIKE SYMPTOMS? NO . COUGH NO . INTEGUMENTARY: DO YOU HAVE ANY RASHES OR OPEN SORES? NO . ALLERGIC/IMMUNO: ARE YOU ALLERGIC TO SHELLFISH OR IV DYE? NO . ANY NEW ALLERGIES? NO . PSYCHIATRIC: DO YOU HAVE THOUGHTS OF HURTING YOURSELF OR SOMEONE ELSE? NO . ARE YOU ABUSED, NEGLECTED, OR IN AN UNSAFE ENVIRONMENT? NO . ENDOCRINOLOGY: ARE YOU DIABETIC? YES . OTHER: DO YOU NEED ANY PRESCRIPTIONS? NO . IF YES, PLEASE LIST: ____ . ANY NEW PROBLEMS WITH YOUR MEDICATIONS? NO . WHEN DID YOU LAST EAT? ____ . WHEN DID YOU LAST DRINK? ____ . WHAT DID YOU LAST DRINK? ____ . NAME OF PERSON DRIVING YOU HOME? ____ . DO YOU HAVE ANY OTHER QUESTIONS OR CONCERNS NO . VITAL SIGNS WT 320.4 LBS, HT 60.5 IN, BMI 61.54 INDEX, BP 138/77 MM HG, HR 81 /MIN, RR 18 /MIN, TEMP 97.6 F, OXYGEN SAT % 97%, NA INITIALS AW 0929, REVIEWED BY: EM. EXAMINATION : PATIENT IS ALERT O X 3 AND COOPERATIVE. TENDERNESS IN THE LOWER BACK AND PARASPINAL MUSCLE GROUP. MRI OF THE LUMBAR SPINE OF 10/22/14 SHOWS DISC HERNIATION AT L5-S1 AND HYPERTROPHY. TENDERNESS OF THE CERVICAL SPINE AND PARASPINAL MUSCLE GROUP. MRI OF THE CERVICAL SPINE DONE ON 08/22/16 SHOWS SPONDYLOSIS AT C3-C4 THROUGH C7-T1 AND A DISC EXTRUSION C4-C5. ASSESSMENTS MYALGIA - M79.1 (PRIMARY) LOW BACK PAIN - M54.5 OTHER CHRONIC PAIN - G89.29 INTERVERTEBRAL DISC DISORDER WITH RADICULOPATHY OF LUMBOSACRAL REGION - M51.17 TREATMENT MYALGIA REFILL GABAPENTIN TABLET, 800 MG, 1 CAPSULE, ORALLY FOR PAIN, TID, 30 DAY(S), 90 CAPSULE, REFILLS 1 NOTES: WE DISCUSSED SEVERAL ISSUES OF MRS. TAVERAS'S PAIN MANAGEMENT CASE. AT THIS TIME I WOULD LIKE TO INCREASE THE PATIENT'S GABAPENTIN TO 800 MG TABLETS TO SEE IF IT WILL AID IN THE NEUROPATHIC PAIN RELIEF. WE DISCUSSED IN DETAIL THE ISSUE OF NARCOTICS AND BUILDING UP A TOLERANCE TO THE MEDICATION. WE ALSO DISCUSSED THE ISSUE OF WEIGHT AND NUTRITION. PATIENT DOES NOT WANT TO SEE A MANUFACTURERS REPRESENTATIVE AT THIS TIME. WE WILL NOT MOVE FORWARD WITH INJECTIONS AT THIS TIME. HOWEVER, PATIENT WOULD LIKE TO TRY PHYSICAL THERAPY TO SEE IF IT WILL AID IN PAIN RELIEF AND INCREASE MOBILITY AND FUNCTIONALITY. WE WILL REPEAT THE MRI DUE TO THE NEW PATTERN OF PAIN IN THE LOWER BACK AREA. I, RAQUEL SONI, DOCUMENTED THE ABOVE INFORMATION ACTING A SCRIBE FOR DR. LAI. I, DR. LAI, HAVE REVIEWED THE ABOVE DOCUMENT, SCRIBED BY RAQUEL SONI, AND I VERIFY THAT IT IS ACCURATE. LOW BACK PAIN NOTES: START PHYSICAL THERAPYLUMBAR MRI. PROCEDURE CODES FA211 ESTABILISHED PATIENT [facility] CHARGE G8427 DOC MEDS VERIFIED W/PT OR RE G8730 PAIN ASSESS POS TOOL F/U PLAN DOC DISPOSITION & COMMUNICATION FOLLOW UP 4 WEEKS ELECTRONICALLY SIGNED BY AMELIA LAI MD ON 02/07/2017 AT 02:05 PM EDT DISCLAIMER : THIS IS A VISIT SUMMARY EXTRACTED FROM THE [employer] CHART. IT IS NOT A COPY OF THE [employer] PROGRESS NOTE. MTDD
== END ==
LOC: M PAIN 09:15
PROVIDERS: ATTEND Anesthesiology
DX: G89.29 Other chronic pain (principal); M54.5 Low back pain; M51.17 Intervertebral disc disorders with radiculopathy, lumbosacral region; M79.1 Myalgia; E11.9 Type 2 diabetes mellitus without complications; I10 Essential (primary) hypertension; E66.01 Morbid (severe) obesity due to excess calories; Z68.44 Body mass index [BMI] 60.0-69.9, adult; F17.210 Nicotine dependence, cigarettes, uncomplicated; Z88.2 Allergy status to sulfonamides; Z88.6 Allergy status to analgesic agent; Z79.84 Long term (current) use of oral hypoglycemic drugs; Z79.891 Long term (current) use of opiate analgesic; Z79.899 Other long term (current) drug therapy

== ENCOUNTER → 2017-02-05 | Outpatient (CLI) | payer OTHER ==
[2017-02-05 10:32] LABS: BASO # 0.1 10^3/uL (0.0-0.2); BASO % 0.5 % (0.0-1.0); EOS # 0.9 10^3/uL (0.0-0.50); IMMATURE GRANULOCYTE % 0.5 % (0-0); LYMPH # 3.2 10^3/uL (1.5-4.5); LYMPH % 29.5 % (24.0-44.0); MEAN CORPUSCULAR HEMOGLOBIN 31.1 pg (27.0-33.0); MEAN CORPUSCULAR HGB CONC 32.7 g/dl (32.0-36.5); MEAN CORPUSCULAR VOLUME 95.2 fl (80.0-96.0); MONO # 0.6 10^3/uL (0.0-0.8); MONO % 5.5 % (0.0-5.0); NEUTROPHILS # 6.1 10^3/uL (1.8-7.7); PLATELET COUNT, AUTOMATED 311 10^3/uL (150-450); RED CELL DISTRIBUTION WIDTH 13.8 % (11.5-14.5); WHITE BLOOD COUNT 10.9 10^3/uL (4.0-10.0)
[2017-02-05 11:22] LABS: ALBUMIN 3.3 GM/DL (3.2-5.2); ALBUMIN/GLOBULIN RATIO 0.87 (1.00-1.93); ALKALINE PHOSPHATASE 95 U/L (45-117); ALT/SGPT 31 U/L (12-78); ANION GAP 7 MEQ/L (8-16); AST/SGOT 19 U/L (15-37); BILIRUBIN,TOTAL 0.4 MG/DL (0.2-1.0); BLOOD UREA NITROGEN 6 MG/DL (7-18); CALCIUM LEVEL 9.1 MG/DL (8.5-10.1); CARBON DIOXIDE LEVEL 26 MEQ/L (21-32); CHLORIDE LEVEL 108 MEQ/L (98-107); CREATININE FOR GFR 0.65 MG/DL (0.55-1.02); FERRITIN 91 NG/ML (8-252); GLOMERULAR FILTRATION RATE > 60.0 (>58); GLUCOSE, FASTING 109 MG/DL (70-105); MAGNESIUM LEVEL 2.1 MG/DL (1.8-2.4); PERCENT SATURATION 28.8 % (13.2-45.0); PHOSPHORUS LEVEL 2.5 MG/DL (2.5-4.9); POTASSIUM SERUM 4.1 MEQ/L (3.5-5.1); SODIUM LEVEL 141 MEQ/L (136-145); TOTAL IRON BINDING CAPACITY 264 UG/DL (250-450); TOTAL PROTEIN 7.1 GM/DL (6.4-8.2)
[2017-02-05 11:58] LABS: VITAMIN B12 LEVEL 780 PG/ML (247-911)
[2017-02-05 12:44] LABS: PRETREATED FOLATE FOR RBCFOL 14.6 NG/ML
== END ==
LOC: M LAB 09:45
PROVIDERS: ATTEND Surgery
DX: E55.9 Vitamin D deficiency, unspecified (principal)

== ENCOUNTER 2017-03-03 08:58 | Outpatient (RCR) | payer OTHER | END 2017-03-18 | LOC: M PT 08:58 | PROVIDERS: ATTEND Anesthesiology | DX: Z51.89 Encounter for other specified aftercare (principal); M54.5 Low back pain ==

== ENCOUNTER → 2017-03-16 | Outpatient (CLI) | payer OTHER ==
--- NOTE | 2017-04-01 00:19 | ECWPNPC ---
PATIENT NAME: STELLA TAVERAS : 1975 GENDER: FEMALE VISIT DATE: 03/16/2017 DISCHARGE DATE: 03/16/17 1446 VISIT LOCKED DATE TIME: PHYSICIAN: PATRICIA MCNAMARA RESOURCE: PATRICIA MCNAMARA REASON FOR APPOINTMENT 1. POST PROCEDURE HISTORY OF PRESENT ILLNESS HISTORY OF PRESENT ILLNESS: HERE FOR POST PROCEDURE F/U. HAD LESI ON 02-17-17.REPORTS >50% IMPROVEMENT POST PROCEDURE AND CONTINUES TO GET SOME IMPROVEMENT TODAY.ATTENDED PT OVER THE PAST MONTH AND FINISHED ONE WEEK AGO .REPORTS THIS HELPFUL.CHIEF AREA OF PAIN IS LOW BACK.GABAPENTIN WAS INCREASED TO 800MG TID A MONTH AGO AND REPORTING LESS INTENSE PAIN..DESCRIBES PAIN CONSTANT AND ACHING.RATING LBP 7/10 AND NECK PAIN 7/10.SHE IS ACTIVELLY TRYING TO LOOSE WEIGHT.USING OXYCODONE PERIODICALLY FOR SEVERE PAIN.FORGOT TO BRING MEDICATION WITH HER.INSTRUCTED TO BRING ALL MEDICATION I PRESCRIBE TO ALL VISITS WITH ME.REVIEWED MRI L/S SPINE ORDERED BY DR. LAI AND DONE ON 02-26-17.SHOWING MULTI LEVEL DIS PRORUSIONS,SPINAL STENOSIS AND RIGHT L3 NERVE COMPRESSION.DISCUSSED MEDICATION AND TREATMENT PLAN. PAIN THE PATIENT DESCRIBES THE PAIN... THE PATIENT DESCRIBES THE PAIN... THE PATIENT DESCRIBES THE PAIN... THE PATIENT DESCRIBES THE PAIN... FALL RISK SCREENING: SCREENING :NO FALLS IN THE PAST YEAR CURRENT MEDICATIONS TAKING ABILIFY 5 MG TABLET 1 TABLET ORALLY ONCE A DAY TAKING CETIRIZINE HCL 10 MG TABLET ORALLY ONCE A DAY TAKING FLONASE 50 MCG/ACT SUSPENSION 1 SPRAY IN EACH NOSTRIL NASALLY ONCE A DAY NEEDED TAKING LOSARTAN POTASSIUM 25 MG TABLET ORALLY DAILY TAKING MONTELUKAST SODIUM 10 MG TABLET 1 TABLET ORALLY ONCE A DAY TAKING DITROPAN XL 10 MG TABLET EXTENDED RELEASE 24 HOUR 1 TABLET ORALLY ONCE A DAY TAKING OMEPRAZOLE 40 MG CAPSULE DELAYED RELEASE 1 CAPSULE ORALLY BID TAKING VITAMIN B12 500 TABLET 500 MCG ORALLY DAILY TAKING MULTIVITAMIN 1 TABLET CHEWABLE 1 TAB(S) ORALLY DAILY TAKING SUMATRIPTAN SUCCINATE 50 MG TABLET 1 TABLET NEEDED ORALLY DIRECTED TAKING CALCIUM CITRATE + 630 MG TABLET 2 TABLET WITH MEALS ORALLY TWICE A DAY TAKING LASIX 40 MG TABLET 1 TABLET ORALLY BID TAKING METFORMIN HCL 1000 MG TABLET 1 TABLET WITH MEALS ORALLY TWICE A DAY TAKING IRON 1 TAB ORAL DAILY TAKING COLACE 100 MG CAPSULE 1 CAPSULE NEEDED ORALLY 3X/DAY TAKING CYMBALTA 90 MG CAPSULE DELAYED RELEASE PARTICLES 1 CAPSULE ORALLY 30MG CAP AND 60 MG CAP DAILY TAKING MISOPROSTOL 200 MCG TABLET 1 TABLET WITH FOOD ORALLY BID TAKING AMITRIPTYLINE HCL 25 MG TABLET 1 TABLET ORALLY ONCE A DAY TAKING GABAPENTIN 800 MG TABLET 1 CAPSULE ORALLY FOR PAIN TID TAKING OXYCODONE HCL 5 MG TABLET 1 TABLET NEEDED ORALLY DAILY PRN PAIN MDD=1. 30 TABS FOR 30 DAY SUPPLY NOT-TAKING OXYCODONE HCL 5 MG TABLET 1 TABLET ORALLY EVERY 6 HRS PRN FOR PAIN MDD2 NOT-TAKING TRAMADOL HCL 50 MG TABLET 1 TAB ORALLY EVERY 6 HOURS NEEDED/MMD#4 NOT-TAKING METHOCARBAMOL 500 MG TABLET 2 TABLETS ORALLY EVERY 6 HRS PRN NOT-TAKING AMITRIPTYLINE HCL 25 MG TABLET 1 TABLET ORALLY ONCE A DAY AT HS MEDICATION LIST REVIEWED AND RECONCILED WITH THE PATIENT PAST MEDICAL HISTORY DIABETES HYPERTENSION HYPERCHOLESTEREMIA OBESITY GERD (GASTROESOPHAGEAL REFLUX DISEASE) GASTRIC BYPASS ALLERGIES SULFA (FOR ALLERGY USE ONLY): RASH: ALLERGY NSAIDS: GASTRIC BYPASS: CONTRAINDICATION SURGICAL HISTORY GASTRIC BYPASS 06/2015 BILAT CARPAL TUNNEL C SECTION CHOLECYSTECTOMY TONSILLECTOMY & ADENOIDECTOMY SOCIAL HISTORY GENERAL: TOBACCO USE ARE YOU A:CURRENT SMOKER ARE YOU INTERESTED IN QUITTING?THINKING ABOUT QUITTING COUNSELED THE PATIENT ON SMOKING CESSATION, EDUCATION [id number]/28/2017 PATIENT COUNSELED ON THE DANGERS OF TOBACCO USE AND URGED TO QUIT:03/16/2017 SMOKING CESSATION INFORMATION GIVEN10/22/2016 ROMAN CATHOLIC [id number] NONE LANGUAGE LANGUAGES SPOKEN:JORDANIAN LEARNING BARRIERS / SPECIAL NEEDS BARRIERS TO LEARNING?NO VISION IMPAIRED?YES WEARS GLASSES LEARNING PREFERENCES?NO NEW PATIENT PAIN DIARY TODAY'S VISIT NOTES, FROM 0-10, WHAT LEVEL IS YOUR PAIN TODAY? 0. PAIN CLINIC PFS, CLERGY, PUBLIC HEALTH REFERRALS PFS REFERRAL NEEDED?NO CLERGY REFERRAL NEEDED?NO PUBLIC HEALTH REFERRAL NEEDED?NO HAS THE PATIENT BEEN EDUCATED REGARDING HIS/HER PLAN OF CARE?YES HAS THE PATIENT BEEN EDUCATED REGARDING PAIN, THE RISK FOR PAIN, THE IMPORTANCE OF EFFECTIVE PAIN MANAGEMENT, AND THE PAIN ASSESSMENT PROCESS?YES ADVANCE DIRECTIVES HEALTH CARE PROXY?YES NAME OF HCP ARNULFO TAVERAS, MOTHER DO YOU HAVE A DNR?NO LIVING WILL?NO POWER OF LOGISTICS SERVICE REPRESENTATIVE?NO HOSPITALIZATION/MAJOR DIAGNOSTIC PROCEDURE SURGERIES REVIEW OF SYSTEMS REVIEWED BY: PROVIDER: PATRICIA MCNAMARA COIN BOX INSPECTOR . CONSTITUTIONAL: ANY CHANGE IN YOUR MEDICAL CONDITION? NO . CHILLS NO . FEVER NO . INFECTION: DO YOU HAVE NEW INFECTIONS? NO . DO YOU HAVE HISTORY OF MRSA? NO . MUSCULOSKELETAL: ANY NEW PATTERNS OF PAIN OR NUMBNESS? NO . GASTROENTEROLOGY: ANY NEW CHANGE IN BOWEL CONTROL? NO . GENITOURINARY: ANY NEW CHANGE IN BLADDER CONTROL? NO . IS THERE A CHANCE YOU COULD BE ? NO . HEMATOLOGY/LYMPH: DO YOU TAKE ANY BLOOD THINNERS? (FOR EXAMPLE- COUMADIN, PLAVIX, AGGRENOX, PLATEL, PRADAXA, OR XARELTO) NO . WHEN WAS YOUR LAST DOSE? DATE: TIME: . NEUROLOGY: HAVE YOU FALLEN IN THE PAST 6 MONTHS? NO . ANY NEW EXTREMITY NUMBNESS OR WEAKNESS? NO . CARDIOLOGY: DO YOU HAVE A PACEMAKER OR DEFIBRILLATOR? NO . RESPIRATORY: HAVE YOU BEEN SICK IN THE PAST WEEK? NO . FEVER NO . FLU LIKE SYMPTOMS? NO . COUGH NO . INTEGUMENTARY: DO YOU HAVE ANY RASHES OR OPEN SORES? NO . ALLERGIC/IMMUNO: ARE YOU ALLERGIC TO SHELLFISH OR IV DYE? NO . ANY NEW ALLERGIES? NO . PSYCHIATRIC: DO YOU HAVE THOUGHTS OF HURTING YOURSELF OR SOMEONE ELSE? NO . ARE YOU ABUSED, NEGLECTED, OR IN AN UNSAFE ENVIRONMENT? NO . ENDOCRINOLOGY: ARE YOU DIABETIC? YES . OTHER: DO YOU NEED ANY PRESCRIPTIONS? YES, OXYCODONE AND OTHERS FILLED HERE . IF YES, PLEASE LIST: ____ . ANY NEW PROBLEMS WITH YOUR MEDICATIONS? NO . WHEN DID YOU LAST EAT? ____ . WHEN DID YOU LAST DRINK? ____ . WHAT DID YOU LAST DRINK? ____ . NAME OF PERSON DRIVING YOU HOME? ____ . DO YOU HAVE ANY OTHER QUESTIONS OR CONCERNS NO . VITAL SIGNS WT 309.8 LBS, HT 60.5 IN, BMI 59.50 INDEX, BP 133/75 MM HG, HR 95 /MIN, RR 16 /MIN, TEMP 97.8 F, OXYGEN SAT % 97%, NA INITIALS TL 1347, REVIEWED BY: EM. EXAMINATION GENERAL EXAMINATION: LUNGS:LUNG SOUNDS ARE CLEAR. HEART:HEART RATE REGULAR. MUSCULOSKELETAL:*, MUSCLE STRENGTH TESTING 5/5 BILATERAL, PALPATION: POSITIVE FOR PAIN OVER L/S SPINE. POSITIVE FOR PAIN OVER L/S PARSPINALS.SPECIFIC POINT TENDERNESS BILAT SIJ. DIAGNOSTIC:MRI L/S [id number]. MRI [id number]. ASSESSMENTS MYALGIA - M79.1 (PRIMARY) DISC DISPLACEMENT, LUMBAR - M51.26 TREATMENT MYALGIA REFILL AMITRIPTYLINE HCL TABLET, 25 MG, 1 TABLET, ORALLY, ONCE A DAY, 30 DAY(S), 30, REFILLS 2 REFILL GABAPENTIN TABLET, 800 MG, 1 CAPSULE, ORALLY FOR PAIN, TID, 30 DAY(S), 90 CAPSULE, REFILLS 1 INCREASE OXYCODONE HCL TABLET, 5 MG, 1 TABLET NEEDED, ORALLY, Q8H PRN MDD3 #40 TAB SHOULD LAST 30 DAYS, 30 DAYS, 40, REFILLS 0 NOTES: RECOMMEND PRIMARY CARE EVALUATE NEED FOR RHEUMATOLOGY EVALUATION. PROCEDURE CODES FA211 ESTABILISHED PATIENT [facility] CHARGE DISPOSITION & COMMUNICATION FOLLOW UP 4 WEEKS ELECTRONICALLY SIGNED BY STEPHAN SHAH ON 03/31/2017 AT 01:45 PM EST DISCLAIMER : THIS IS A VISIT SUMMARY EXTRACTED FROM THE [employer] CHART. IT IS NOT A COPY OF THE [employer] PROGRESS NOTE. [id number]
== END ==
LOC: M PAIN 13:45
PROVIDERS: ATTEND Nurse Practitioner Family
DX: G89.29 Other chronic pain (principal); M79.1 Myalgia; M51.26 Other intervertebral disc displacement, lumbar region; E11.9 Type 2 diabetes mellitus without complications; I10 Essential (primary) hypertension; F17.210 Nicotine dependence, cigarettes, uncomplicated; E78.00 Pure hypercholesterolemia, unspecified; E66.9 Obesity, unspecified; K21.9 Gastro-esophageal reflux disease without esophagitis; Z98.84 Bariatric surgery status; Z68.43 Body mass index [BMI] 50.0-59.9, adult; Z88.6 Allergy status to analgesic agent; Z88.2 Allergy status to sulfonamides; Z79.84 Long term (current) use of oral hypoglycemic drugs; Z79.891 Long term (current) use of opiate analgesic; Z79.899 Other long term (current) drug therapy

== ENCOUNTER → 2017-04-14 | Outpatient (CLI) | payer OTHER | LOC: M PAIN 14:00 | DX: G89.29 Other chronic pain (principal); M51.26 Other intervertebral disc displacement, lumbar region; M79.1 Myalgia; E11.9 Type 2 diabetes mellitus without complications; I10 Essential (primary) hypertension; E78.00 Pure hypercholesterolemia, unspecified; E66.9 Obesity, unspecified; Z68.44 Body mass index [BMI] 60.0-69.9, adult; K21.9 Gastro-esophageal reflux disease without esophagitis; Z79.84 Long term (current) use of oral hypoglycemic drugs; Z79.899 Other long term (current) drug therapy; Z98.84 Bariatric surgery status | CPT/HCPCS: G0463 ==

== ENCOUNTER → 2017-05-03 | Outpatient (CLI) | payer OTHER ==
[~2017-05-03] MED LIST changes: -ABIL1TAB11 PO; -ALBU17IN INH; -AMIT25TA; -ASPI81TA85 PO; -BACT800T5 PO; -CALC250T PO; -CETI10TA PO; -CIPR-249 PO; -CIPR500T3 PO; -DITR1TAB PO; -DOCU100C16 PO; -DULO30CA PO; -FENO145T PO; -FENO150C PO; -FLAG500T PO; -FLON0.054; -FURO20TA2 PO; -GABA-279 PO; -GABA-282 PO; -GABA-283 PO; -GABA600T PO; -INSULANT SC; -IRON65TA PO; +ISOVUE-M 300 61% 15ML VIAL (Q9967) As Ordered; +LIDOCAINE 1% SDV INJ 30 ML VIAL As Ordered; -LOSA25TA8 PO; -METF10004 PO; -METF500T13 PO; -MONT10TA2 PO; -MULT1TAB8 PO; -NEUR300C PO; -NORCOTAB PO; -PERC5TAB12 PO; -PHEN15CA PO; -RANI15TA PO; -ROBA500T PO; -SIMV20TA2 PO; -SPIR50TA2 PO; -SUMA50TA2; -TIOT18INH INH; -TOPA50TA8 PO; -TRAD5TAB PO; -TRAM50TA2 PO; -VITA-110 PO; -VITA500T3 PO; -VITAPOW41 PO; -ZITHTAB PO; +diazePAM 5 MG TAB As Ordered; +methylPREDNISolone SUSP 40 MG/ML (DEPO-medrol) VIAL (J1030) As Ordered; +oxyCODONE 5MG TAB As Ordered
== END ==
LOC: M PAIN 11:00
DX: G89.29 Other chronic pain (principal); M51.17 Intervertebral disc disorders with radiculopathy, lumbosacral region; E11.9 Type 2 diabetes mellitus without complications; I10 Essential (primary) hypertension; E78.00 Pure hypercholesterolemia, unspecified; E66.01 Morbid (severe) obesity due to excess calories; Z68.44 Body mass index [BMI] 60.0-69.9, adult; K21.9 Gastro-esophageal reflux disease without esophagitis; F17.200 Nicotine dependence, unspecified, uncomplicated; Z88.2 Allergy status to sulfonamides; Z88.6 Allergy status to analgesic agent; Z79.84 Long term (current) use of oral hypoglycemic drugs; Z79.899 Other long term (current) drug therapy
CPT/HCPCS: J1030

== ENCOUNTER → 2017-05-14 | Outpatient (CLI) | payer OTHER ==
[2017-05-14 12:14] LABS: ESTIMATED AVERAGE GLUCOSE 146 MG/DL (60-110); HEMOGLOBIN A1c 6.7 %
== END ==
LOC: M LAB 11:00
DX: E11.69 Type 2 diabetes mellitus with other specified complication (principal)

== ENCOUNTER → 2017-05-14 | Outpatient (CLI) | payer OTHER ==
[2017-05-14 11:34] LABS: HEMATOCRIT 42.1 % (36.0-47.0); HEMOGLOBIN 13.9 g/dl (12.0-16.0); MEAN CORPUSCULAR HEMOGLOBIN 30.9 pg (27.0-33.0); MEAN CORPUSCULAR VOLUME 93.6 fl (80.0-96.0); PLATELET COUNT, AUTOMATED 371 10^3/uL (150-450); RED CELL DISTRIBUTION WIDTH 13.7 % (11.5-14.5); WHITE BLOOD COUNT 17.2 10^3/uL (4.0-10.0)
[2017-05-14 12:15] LABS: ESTIMATED AVERAGE GLUCOSE 140 MG/DL (60-110); HEMOGLOBIN A1c 6.5 %
[2017-05-14 12:48] LABS: ALBUMIN 3.2 GM/DL (3.2-5.2); ALBUMIN/GLOBULIN RATIO 0.84 (1.00-1.93); ALKALINE PHOSPHATASE 103 U/L (45-117); ALT/SGPT 27 U/L (12-78); ANION GAP 6 MEQ/L (8-16); AST/SGOT 11 U/L (7-37); BILIRUBIN,TOTAL 0.3 MG/DL (0.2-1.0); BLOOD UREA NITROGEN 6 MG/DL (7-18); CALCIUM LEVEL 8.8 MG/DL (8.5-10.1); CARBON DIOXIDE LEVEL 28 MEQ/L (21-32); CHLORIDE LEVEL 108 MEQ/L (98-107); CHOLESTEROL LEVEL 157 MG/DL (<200); GLOMERULAR FILTRATION RATE > 60.0 (>58); GLUCOSE, FASTING 125 MG/DL (70-100); HDL CHOLESTEROL 47 MG/DL (>40); LDL CHOLESTEROL 83.4 MG/DL (<100); NON-HDL-C 110 MG/DL; POTASSIUM SERUM 3.8 MEQ/L (3.5-5.1); SODIUM LEVEL 142 MEQ/L (136-145); TRIGLYCERIDES LEVEL 133 MG/DL (<150)
== END ==
LOC: M LAB 10:57
DX: Z79.899 Other long term (current) drug therapy (principal)
CPT/HCPCS: 84443

== ENCOUNTER → 2017-05-17 | Outpatient (CLI) | payer OTHER | LOC: M PAIN 10:30 | DX: M47.892 Other spondylosis, cervical region (principal); M79.1 Myalgia; E11.9 Type 2 diabetes mellitus without complications; I10 Essential (primary) hypertension; E78.00 Pure hypercholesterolemia, unspecified; K21.9 Gastro-esophageal reflux disease without esophagitis; F17.200 Nicotine dependence, unspecified, uncomplicated; E66.01 Morbid (severe) obesity due to excess calories; Z68.44 Body mass index [BMI] 60.0-69.9, adult; Z79.84 Long term (current) use of oral hypoglycemic drugs; Z79.899 Other long term (current) drug therapy; Z88.2 Allergy status to sulfonamides; Z88.6 Allergy status to analgesic agent; Z98.84 Bariatric surgery status | CPT/HCPCS: G0463 ==

== ENCOUNTER → 2017-05-19 | Outpatient (CLI) | payer OTHER ==
[~2017-05-19] MED LIST changes: +BUPIVACAINE HCL 0.25% 10 ML VIAL As Ordered; +BUPIVACAINE HCL 0.25% 30 ML VIAL As Ordered; -ISOVUE-M 300 61% 15ML VIAL (Q9967) As Ordered; -LIDOCAINE 1% SDV INJ 30 ML VIAL As Ordered; +TRIAMCINOLONE ACETONIDE SUSP 40 MG/ML VIAL (J3301) As Ordered; -methylPREDNISolone SUSP 40 MG/ML (DEPO-medrol) VIAL (J1030) As Ordered
== END ==
LOC: M PAIN 14:00
DX: G89.29 Other chronic pain (principal); M54.2 Cervicalgia; M25.511 Pain in right shoulder; M25.512 Pain in left shoulder; M79.1 Myalgia; E11.9 Type 2 diabetes mellitus without complications; I10 Essential (primary) hypertension; E78.00 Pure hypercholesterolemia, unspecified; K21.9 Gastro-esophageal reflux disease without esophagitis; F17.210 Nicotine dependence, cigarettes, uncomplicated; E66.01 Morbid (severe) obesity due to excess calories; Z68.44 Body mass index [BMI] 60.0-69.9, adult; Z79.84 Long term (current) use of oral hypoglycemic drugs; Z79.899 Other long term (current) drug therapy; Z88.2 Allergy status to sulfonamides; Z88.6 Allergy status to analgesic agent; Z98.84 Bariatric surgery status
CPT/HCPCS: J3301

== ENCOUNTER 2017-05-22 21:07 | Emergency (ER) | payer OTHER | END 2017-05-22 22:32 | disposition home or self-care (01) | LOC: M ED 21:07 | DX: J20.9 Acute bronchitis, unspecified (principal); E10.9 Type 1 diabetes mellitus without complications; I10 Essential (primary) hypertension; E78.5 Hyperlipidemia, unspecified; K21.9 Gastro-esophageal reflux disease without esophagitis; F41.9 Anxiety disorder, unspecified; F33.9 Major depressive disorder, recurrent, unspecified; M19.90 Unspecified osteoarthritis, unspecified site; M54.9 Dorsalgia, unspecified; G43.909 Migraine, unspecified, not intractable, without status migrainosus; G47.33 Obstructive sleep apnea (adult) (pediatric); Z99.89 Dependence on other enabling machines and devices; Z98.84 Bariatric surgery status; Z79.899 Other long term (current) drug therapy; Z79.84 Long term (current) use of oral hypoglycemic drugs; Z88.2 Allergy status to sulfonamides; Z88.8 Allergy status to other drugs, medicaments and biological substances; F17.210 Nicotine dependence, cigarettes, uncomplicated | CPT/HCPCS: 99283 ==

== ENCOUNTER → 2017-05-27 | Outpatient (CLI) | payer OTHER | LOC: M PAIN 14:30 | DX: M79.7 Fibromyalgia (principal); M47.892 Other spondylosis, cervical region; M47.897 Other spondylosis, lumbosacral region; E11.9 Type 2 diabetes mellitus without complications; E78.00 Pure hypercholesterolemia, unspecified; K21.9 Gastro-esophageal reflux disease without esophagitis; F17.210 Nicotine dependence, cigarettes, uncomplicated; Z79.84 Long term (current) use of oral hypoglycemic drugs; Z79.891 Long term (current) use of opiate analgesic; Z79.899 Other long term (current) drug therapy; Z98.84 Bariatric surgery status; Z88.2 Allergy status to sulfonamides; Z88.8 Allergy status to other drugs, medicaments and biological substances | CPT/HCPCS: G0463 ==

== ENCOUNTER 2017-05-30 10:57 | Emergency (ER) | payer OTHER ==
[2017-05-30 11:56] LABS: HEMATOCRIT 44.6 % (36.0-47.0); HEMOGLOBIN 14.4 g/dl (12.0-16.0); MEAN CORPUSCULAR HEMOGLOBIN 31.3 pg (27.0-33.0); MEAN CORPUSCULAR HGB CONC 32.3 g/dl (32.0-36.5); PLATELET COUNT, AUTOMATED 319 10^3/uL (150-450); RED CELL DISTRIBUTION WIDTH 14.2 % (11.5-14.5)
[2017-05-30 12:07] LABS: APPEARANCE, URINE CLOUDY (CLEAR); BACTERIA, URINE AUTO NEGATIVE (NEGATIVE); BILIRUBIN, URINE AUTO NEGATIVE (NEGATIVE); BLOOD, URINE BLOOD NEGATIVE (NEGATIVE); COLOR, URINE YELLOW (YELLOW); GLUCOSE, URINE (UA) AUTO NEGATIVE (NEGATIVE); KETONE, URINE AUTO NEGATIVE (NEGATIVE); LEUKOCYTE ESTERASE, URINE AUTO 2+ (NEGATIVE); MUCUS, URINE SMALL (NEGATIVE); NITRITE, URINE AUTO NEGATIVE (NEGATIVE); PROTEIN, URINE AUTO NEGATIVE (NEGATIVE); RBC, URINE AUTO 1 /HPF (0-3); SPECIFIC GRAVITY URINE AUTO 1.016 (1.002-1.035); SQUAMOUS EPITHELIAL CELL UR AU 3 /HPF (0-6); URIC ACID CRYSTALS SMALL; UROBILINOGEN, URINE AUTO 0.2 mg/dL (0.0-2.0); WBC, URINE AUTO 4 /HPF (0-3)
[2017-05-30 12:09] LABS: ADD MANUAL DIFFER YES; DIFF SLIDE NUMBER 107; POSITIVE DIFF POS FLAG; WHITE BLOOD COUNT 16.6 10^3/uL (4.0-10.0)
[2017-05-30 12:20] LABS: ATYPICAL LYMPH 2 % (0-5); EOSINOPHILS 2 % (0-5); LYMPHOCYTES 33 % (16-52); MONOCYTES 5 % (0-8); NEUTROPHILS 58 % (35-75); PLATELET ESTIMATE NORMAL (NORMAL)
[2017-05-30 12:21] LABS: ALBUMIN 3.4 GM/DL (3.2-5.2); ALBUMIN/GLOBULIN RATIO 0.83 (1.00-1.93); ALKALINE PHOSPHATASE 106 U/L (45-117); ALT/SGPT 29 U/L (12-78); ANION GAP 8 MEQ/L (8-16); ANISOCYTOSIS 1+; AST/SGOT 17 U/L (7-37); BILIRUBIN,TOTAL 0.4 MG/DL (0.2-1.0); BLOOD UREA NITROGEN 14 MG/DL (7-18); CALCIUM LEVEL 8.9 MG/DL (8.5-10.1); CARBON DIOXIDE LEVEL 26 MEQ/L (21-32); CHLORIDE LEVEL 107 MEQ/L (98-107); CREATININE FOR GFR 0.73 MG/DL (0.55-1.30); GLOMERULAR FILTRATION RATE > 60.0 (>58); GLUCOSE, FASTING 93 MG/DL (70-100); POTASSIUM SERUM 4.3 MEQ/L (3.5-5.1); SODIUM LEVEL 141 MEQ/L (136-145); TOTAL PROTEIN 7.5 GM/DL (6.4-8.2)
[2017-05-30] MEDS: NS 1,000 ML IV (13:20)
[2017-05-30] MEDS: MORPHINE 2 MG/ML 1ML SYRINGE (J2270) IV (13:20)
[2017-05-30] MEDS: CIPROFLOXACIN 400 MG in APPROPRIATE DILUENT 1 EA IV (13:20)
== END 2017-05-30 14:44 | disposition home or self-care (01) ==
LOC: M ED 10:57
DX: N12 Tubulo-interstitial nephritis, not specified as acute or chronic (principal); I10 Essential (primary) hypertension; E11.9 Type 2 diabetes mellitus without complications; E78.00 Pure hypercholesterolemia, unspecified; K21.9 Gastro-esophageal reflux disease without esophagitis; F41.9 Anxiety disorder, unspecified; F33.9 Major depressive disorder, recurrent, unspecified; M19.90 Unspecified osteoarthritis, unspecified site; G47.30 Sleep apnea, unspecified; Z87.19 Personal history of other diseases of the digestive system; Z79.899 Other long term (current) drug therapy; Z79.84 Long term (current) use of oral hypoglycemic drugs; Z88.2 Allergy status to sulfonamides; Z88.8 Allergy status to other drugs, medicaments and biological substances; F17.210 Nicotine dependence, cigarettes, uncomplicated
CPT/HCPCS: J0744

== ENCOUNTER 2017-06-05 13:55 | Emergency (ER) | payer OTHER ==
[2017-06-05] MEDS: NS 500 ML IV (14:45)
[2017-06-05 15:21] LABS: BASO % 0.3 % (0.0-1.0); EOS # 0.4 10^3/uL (0.0-0.50); EOS % 2.4 % (0.0-3.0); HEMATOCRIT 41.1 % (36.0-47.0); HEMOGLOBIN 13.5 g/dl (12.0-16.0); IMMATURE GRANULOCYTE % 0.6 % (0-3.0); LYMPH # 4.2 10^3/uL (1.5-4.5); LYMPH % 29.2 % (24.0-44.0); MEAN CORPUSCULAR HEMOGLOBIN 31.3 pg (27.0-33.0); MEAN CORPUSCULAR HGB CONC 32.8 g/dl (32.0-36.5); MEAN CORPUSCULAR VOLUME 95.1 fl (80.0-96.0); MONO % 6.9 % (0.0-5.0); NEUTROPHILS # 8.8 10^3/uL (1.8-7.7); NEUTROPHILS % 60.6 % (36.0-66.0); PLATELET COUNT, AUTOMATED 321 10^3/uL (150-450); RED BLOOD COUNT 4.32 10^6/uL (4.00-5.40); RED CELL DISTRIBUTION WIDTH 13.8 % (11.5-14.5); WHITE BLOOD COUNT 14.5 10^3/uL (4.0-10.0)
[2017-06-05 15:25] LABS: KETONE, URINE AUTO RFX NEGATIVE (NEGATIVE); LEUKOCYTE ESTERASE UR AUTO RFX NEGATIVE (NEGATIVE); NITRITE, URINE AUTO RFX NEGATIVE (NEGATIVE); RBC, URINE AUTO RFX 2 /HPF (0-3); SPECIFIC GRAVITY UR AUTO RFX 1.005 (1.002-1.035); SQUAM EPITHELIAL CELL UR AURFX 7 /HPF (0-6); WBC, URINE AUTO RFX 2 /HPF (0-3)
[2017-06-05 15:30] LABS: CONTROL LINE HCG INT CTR LINE PRESENT; HCG, SERUM QUALITATIVE NEGATIVE (NEGATIVE)
[2017-06-05] MEDS: MORPHINE 4 MG/ML 1ML VIAL (J2270) IV ×2 (15:34→18:32)
[2017-06-05 15:37] LABS: ALBUMIN/GLOBULIN RATIO 0.71 (1.00-1.93); ALKALINE PHOSPHATASE 91 U/L (45-117); ALT/SGPT 24 U/L (12-78); ANION GAP 6 MEQ/L (8-16); AST/SGOT 13 U/L (7-37); BILIRUBIN,DIRECT < 0.1 MG/DL (0.0-0.2); BILIRUBIN,TOTAL 0.2 MG/DL (0.2-1.0); BLOOD UREA NITROGEN 9 MG/DL (7-18); CALCIUM LEVEL 8.4 MG/DL (8.5-10.1); CARBON DIOXIDE LEVEL 29 MEQ/L (21-32); CHLORIDE LEVEL 108 MEQ/L (98-107); CREATININE FOR GFR 0.73 MG/DL (0.55-1.30); GLOMERULAR FILTRATION RATE > 60.0 (>58); GLUCOSE, FASTING 72 MG/DL (70-100); LIPASE 103 U/L (73-393); POTASSIUM SERUM 4.2 MEQ/L (3.5-5.1); SODIUM LEVEL 143 MEQ/L (136-145); TOTAL PROTEIN 7.2 GM/DL (6.4-8.2)
[2017-06-05] MEDS ORDERED: GASTROGRAFIN SOLUTION 30ML (Q9963) As Ordered (16:23)
[2017-06-05] MEDS: GASTROGRAFIN SOLUTION 30ML PO ×2 (16:25→16:32)
[2017-06-05] MEDS ORDERED: ISOVUE-370 76% 100ML VIAL (Q9967) As Ordered (17:30)
== END 2017-06-05 19:55 | disposition home or self-care (01) ==
LOC: M ED 13:55
DX: M54.5 Low back pain (principal); R00.0 Tachycardia, unspecified; R94.31 Abnormal electrocardiogram [ECG] [EKG]; E11.9 Type 2 diabetes mellitus without complications; I10 Essential (primary) hypertension; F32.9 Major depressive disorder, single episode, unspecified; F41.9 Anxiety disorder, unspecified; M19.90 Unspecified osteoarthritis, unspecified site; G89.4 Chronic pain syndrome; F17.200 Nicotine dependence, unspecified, uncomplicated; E66.9 Obesity, unspecified; Z98.84 Bariatric surgery status; Z79.84 Long term (current) use of oral hypoglycemic drugs; Z79.899 Other long term (current) drug therapy; Z88.6 Allergy status to analgesic agent; Z88.2 Allergy status to sulfonamides
CPT/HCPCS: J2270

== ENCOUNTER → 2017-06-23 | Outpatient (CLI) | payer OTHER ==
[2017-06-23 13:22] LABS: HEMATOCRIT 37.7 % (36.0-47.0); HEMOGLOBIN 12.6 g/dl (12.0-16.0); MEAN CORPUSCULAR HEMOGLOBIN 31.4 pg (27.0-33.0); MEAN CORPUSCULAR HGB CONC 33.4 g/dl (32.0-36.5); PLATELET COUNT, AUTOMATED 311 10^3/uL (150-450); RED BLOOD COUNT 4.01 10^6/uL (4.00-5.40); RED CELL DISTRIBUTION WIDTH 13.7 % (11.5-14.5); WHITE BLOOD COUNT 13.3 10^3/uL (4.0-10.0)
[2017-06-23 13:29] LABS: ADD MANUAL DIFFER YES; DIFF SLIDE NUMBER 238; POSITIVE DIFF POS FLAG
[2017-06-23 13:50] LABS: BASOPHILS 1 % (0-4); EOSINOPHILS 8 % (0-5); LYMPHOCYTES 34 % (16-52); MONOCYTES 4 % (0-8); NEUTROPHILS 53 % (35-75)
[2017-06-23 13:51] LABS: PLATELET ESTIMATE NORMAL (NORMAL)
[2017-06-23 14:36] LABS: CONTROL LINE HCG INT CTR LINE PRESENT; HCG, SERUM QUALITATIVE NEGATIVE (NEGATIVE)
[2017-06-23 15:05] LABS: ALBUMIN 3.2 GM/DL (3.2-5.2); ALBUMIN/GLOBULIN RATIO 0.86 (1.00-1.93); ALKALINE PHOSPHATASE 102 U/L (45-117); ALT/SGPT 24 U/L (12-78); ANION GAP 10 MEQ/L (8-16); AST/SGOT 15 U/L (7-37); BILIRUBIN,TOTAL 0.4 MG/DL (0.2-1.0); BLOOD UREA NITROGEN 8 MG/DL (7-18); CALCIUM LEVEL 8.8 MG/DL (8.5-10.1); CARBON DIOXIDE LEVEL 24 MEQ/L (21-32); CHLORIDE LEVEL 107 MEQ/L (98-107); GLOMERULAR FILTRATION RATE > 60.0 (>58); GLUCOSE, FASTING 86 MG/DL (70-100); POTASSIUM SERUM 4.1 MEQ/L (3.5-5.1); RHEUMATOID FACTOR QUANT < 10.0 IU/ML (0-15.0); SODIUM LEVEL 141 MEQ/L (136-145); THYROID STIMULATING HORMONE 0.938 uIU/ML (0.358-3.740); TOTAL PROTEIN 6.9 GM/DL (6.4-8.2)
[2017-06-26 00:06] LABS: CYCLIC CITRULLINATED PEPTIDE 5 units (0-19)
[2017-06-26 00:06] LABS: ANA (HEP2) Negative (.); Lyme Disease IgG/IgM Antibodie <0.91 ISR (0.00-0.90); Lyme Disease IgM Ab Quantitati <0.80 index (0.00-0.79); SSA SJOGRENS A <0.2 AI (0.0-0.9); SSB SJOGRENS B <0.2 AI (0.0-0.9)
== END ==
LOC: M LAB 12:47
DX: M35.9 Systemic involvement of connective tissue, unspecified (principal); Z79.899 Other long term (current) drug therapy; R53.83 Other fatigue; M16.0 Bilateral primary osteoarthritis of hip; M17.0 Bilateral primary osteoarthritis of knee; M51.85 Other intervertebral disc disorders, thoracolumbar region
CPT/HCPCS: 72110

== ENCOUNTER → 2017-07-16 | Outpatient (CLI) | payer OTHER | LOC: M PAIN 09:15 | DX: M47.897 Other spondylosis, lumbosacral region (principal); M79.7 Fibromyalgia; G89.29 Other chronic pain; E11.9 Type 2 diabetes mellitus without complications; I10 Essential (primary) hypertension; E78.00 Pure hypercholesterolemia, unspecified; K21.9 Gastro-esophageal reflux disease without esophagitis; F17.210 Nicotine dependence, cigarettes, uncomplicated; E66.01 Morbid (severe) obesity due to excess calories; Z68.44 Body mass index [BMI] 60.0-69.9, adult; Z79.84 Long term (current) use of oral hypoglycemic drugs; Z79.899 Other long term (current) drug therapy; Z88.2 Allergy status to sulfonamides; Z88.6 Allergy status to analgesic agent; Z98.84 Bariatric surgery status | CPT/HCPCS: G0463 ==

== ENCOUNTER → 2017-08-03 | Outpatient (CLI) | payer OTHER ==
[~2017-08-03] MED LIST changes: -BUPIVACAINE HCL 0.25% 10 ML VIAL As Ordered; -BUPIVACAINE HCL 0.25% 30 ML VIAL As Ordered; +ISOVUE-M 300 61% 15ML VIAL (Q9967) As Ordered; +LIDOCAINE 1% SDV INJ 30 ML VIAL As Ordered; -TRIAMCINOLONE ACETONIDE SUSP 40 MG/ML VIAL (J3301) As Ordered; +methylPREDNISolone SUSP 40 MG/ML (DEPO-medrol) VIAL (J1030) As Ordered
== END ==
LOC: M PAIN 08:45
DX: G89.29 Other chronic pain (principal); M51.17 Intervertebral disc disorders with radiculopathy, lumbosacral region; E11.9 Type 2 diabetes mellitus without complications; I10 Essential (primary) hypertension; E78.00 Pure hypercholesterolemia, unspecified; K21.9 Gastro-esophageal reflux disease without esophagitis; E66.01 Morbid (severe) obesity due to excess calories; Z68.44 Body mass index [BMI] 60.0-69.9, adult; Z79.84 Long term (current) use of oral hypoglycemic drugs; Z79.899 Other long term (current) drug therapy; Z88.2 Allergy status to sulfonamides; Z88.6 Allergy status to analgesic agent; Z98.84 Bariatric surgery status
CPT/HCPCS: J1030

== ENCOUNTER → 2017-08-04 | Outpatient (CLI) | payer OTHER ==
[2017-08-04 09:34] LABS: BASO % 0.3 % (0.0-1.0); EOS # 0.3 10^3/uL (0.0-0.50); EOS % 1.7 % (0.0-3.0); HEMATOCRIT 43.1 % (36.0-47.0); HEMOGLOBIN 14.2 g/dl (12.0-15.5); IMMATURE GRANULOCYTE % 0.7 % (0-3.0); LYMPH # 3.7 10^3/uL (1.5-4.5); LYMPH % 24.9 % (24.0-44.0); MEAN CORPUSCULAR HEMOGLOBIN 30.7 pg (27.0-33.0); MEAN CORPUSCULAR HGB CONC 32.9 g/dl (32.0-36.5); MEAN CORPUSCULAR VOLUME 93.1 fl (80.0-96.0); MONO # 0.7 10^3/uL (0.0-0.8); MONO % 4.6 % (0.0-5.0); NEUTROPHILS # 10.2 10^3/uL (1.8-7.7); NEUTROPHILS % 67.8 % (36.0-66.0); PLATELET COUNT, AUTOMATED 352 10^3/uL (150-450); RED BLOOD COUNT 4.63 10^6/uL (4.00-5.40); RED CELL DISTRIBUTION WIDTH 13.2 % (11.5-14.5)
[2017-08-04 09:36] LABS: HEMATOCRIT 43.1 % (36.0-47.0)
[2017-08-04 09:41] LABS: ESTIMATED AVERAGE GLUCOSE 140 MG/DL (60-110); HEMOGLOBIN A1c 6.5 %
[2017-08-04 10:03] LABS: ALBUMIN 3.4 GM/DL (3.2-5.2); ALBUMIN/GLOBULIN RATIO 0.83 (1.00-1.93); ALKALINE PHOSPHATASE 108 U/L (45-117); ALT/SGPT 21 U/L (12-78); ANION GAP 7 MEQ/L (8-16); AST/SGOT 13 U/L (7-37); BILIRUBIN,TOTAL 0.3 MG/DL (0.2-1.0); BLOOD UREA NITROGEN 10 MG/DL (7-18); CARBON DIOXIDE LEVEL 26 MEQ/L (21-32); CHLORIDE LEVEL 107 MEQ/L (98-107); CREATININE FOR GFR 0.67 MG/DL (0.55-1.30); FERRITIN 55 NG/ML (8-252); GLOMERULAR FILTRATION RATE > 60.0 (>58); GLUCOSE, FASTING 132 MG/DL (70-100); IRON (FE) 55 UG/DL (50-170); MAGNESIUM LEVEL 2.4 MG/DL (1.8-2.4); PERCENT SATURATION 18.5 % (13.2-45.0); PHOSPHORUS LEVEL 2.8 MG/DL (2.5-4.9); POTASSIUM SERUM 4.5 MEQ/L (3.5-5.1); SODIUM LEVEL 140 MEQ/L (136-145); TOTAL IRON BINDING CAPACITY 297 UG/DL (250-450); TOTAL PROTEIN 7.5 GM/DL (6.4-8.2)
[2017-08-06 09:42] LABS: TOTAL 25(OH) VITAMIN D 23.7 NG/ML (30.0-100.0)
[2017-08-06 09:43] LABS: VITAMIN B12 LEVEL 382 PG/ML (247-911)
[2017-08-06 10:46] LABS: RBC FOLATE 633.4 NG/ML (280-791)
== END ==
LOC: M LAB 08:43
DX: K91.2 Postsurgical malabsorption, not elsewhere classified (principal); Z98.84 Bariatric surgery status; E55.9 Vitamin D deficiency, unspecified
CPT/HCPCS: 83550

== ENCOUNTER → 2017-08-04 | Outpatient (CLI) | payer OTHER ==
[2017-08-04 10:07] LABS: FREE T4 0.98 NG/DL (0.76-1.46)
== END ==
LOC: M LAB 08:39
DX: N94.6 Dysmenorrhea, unspecified (principal)
CPT/HCPCS: 84443

== ENCOUNTER → 2017-08-18 | Outpatient (CLI) | payer OTHER | LOC: M PAIN 09:30 | DX: M51.17 Intervertebral disc disorders with radiculopathy, lumbosacral region (principal); M79.7 Fibromyalgia; M47.817 Spondylosis without myelopathy or radiculopathy, lumbosacral region; E11.9 Type 2 diabetes mellitus without complications; I10 Essential (primary) hypertension; E78.00 Pure hypercholesterolemia, unspecified; K21.9 Gastro-esophageal reflux disease without esophagitis; F17.210 Nicotine dependence, cigarettes, uncomplicated; E66.01 Morbid (severe) obesity due to excess calories; Z68.44 Body mass index [BMI] 60.0-69.9, adult; Z79.84 Long term (current) use of oral hypoglycemic drugs; Z79.899 Other long term (current) drug therapy; Z88.2 Allergy status to sulfonamides; Z88.6 Allergy status to analgesic agent; Z98.84 Bariatric surgery status | CPT/HCPCS: G0463 ==

== ENCOUNTER → 2017-08-26 | Outpatient (CLI) | payer OTHER ==
[~2017-08-26] MED LIST changes: +BUPIVACAINE HCL 0.25% 30 ML VIAL As Ordered; -diazePAM 5 MG TAB As Ordered; -methylPREDNISolone SUSP 40 MG/ML (DEPO-medrol) VIAL (J1030) As Ordered; -oxyCODONE 5MG TAB As Ordered
== END ==
LOC: M PAIN 08:30
DX: M47.816 Spondylosis without myelopathy or radiculopathy, lumbar region (principal); E11.9 Type 2 diabetes mellitus without complications; I10 Essential (primary) hypertension; E78.00 Pure hypercholesterolemia, unspecified; K21.9 Gastro-esophageal reflux disease without esophagitis; F17.210 Nicotine dependence, cigarettes, uncomplicated; E66.01 Morbid (severe) obesity due to excess calories; Z68.44 Body mass index [BMI] 60.0-69.9, adult; Z79.899 Other long term (current) drug therapy; Z88.2 Allergy status to sulfonamides; Z88.6 Allergy status to analgesic agent; Z98.84 Bariatric surgery status
CPT/HCPCS: Q9967

== ENCOUNTER → 2017-08-28 | Outpatient (REF) | payer OTHER ==
[2017-08-28 21:42] LABS: APPEARANCE, URINE CLOUDY (CLEAR); BACTERIA, URINE AUTO 3+ (NEGATIVE); BILIRUBIN, URINE AUTO NEGATIVE (NEGATIVE); BLOOD, URINE BLOOD NEGATIVE (NEGATIVE); CALCIUM OXALATE CRYSTALS MODERATE; COLOR, URINE AMBER (YELLOW); GLUCOSE, URINE (UA) AUTO NEGATIVE (NEGATIVE); KETONE, URINE AUTO NEGATIVE (NEGATIVE); LEUKOCYTE ESTERASE, URINE AUTO TRACE (NEGATIVE); MUCUS, URINE SMALL (NEGATIVE); NITRITE, URINE AUTO NEGATIVE (NEGATIVE); PROTEIN, URINE AUTO NEGATIVE (NEGATIVE); RBC, URINE AUTO 1 /HPF (0-3); SPECIFIC GRAVITY URINE AUTO 1.017 (1.002-1.035); SQUAMOUS EPITHELIAL CELL UR AU 10 /HPF (0-6); WBC, URINE AUTO 13 /HPF (0-3)
== END ==
LOC: M LAB REF 09:27
DX: N39.0 Urinary tract infection, site not specified (principal)
CPT/HCPCS: 81001

== ENCOUNTER → 2017-08-31 | Outpatient (CLI) | payer OTHER | LOC: M RAD 17:29 | DX: N92.1 Excessive and frequent menstruation with irregular cycle (principal) | CPT/HCPCS: 76856 ==

== ENCOUNTER → 2017-08-31 | Outpatient (CLI) | payer OTHER ==
[2017-08-31 19:16] LABS: ALBUMIN 3.4 GM/DL (3.2-5.2); ALBUMIN/GLOBULIN RATIO 0.92 (1.00-1.93); ALKALINE PHOSPHATASE 111 U/L (45-117); ALT/SGPT 30 U/L (12-78); ANION GAP 8 MEQ/L (8-16); AST/SGOT 21 U/L (7-37); BILIRUBIN,TOTAL 0.3 MG/DL (0.2-1.0); BLOOD UREA NITROGEN 8 MG/DL (7-18); CALCIUM LEVEL 8.8 MG/DL (8.5-10.1); CARBON DIOXIDE LEVEL 24 MEQ/L (21-32); CHLORIDE LEVEL 109 MEQ/L (98-107); CREATININE FOR GFR 0.83 MG/DL (0.55-1.30); FREE T4 0.94 NG/DL (0.76-1.46); GLOMERULAR FILTRATION RATE > 60.0 (>58); GLUCOSE, FASTING 155 MG/DL (70-100); POTASSIUM SERUM 4.1 MEQ/L (3.5-5.1); SODIUM LEVEL 141 MEQ/L (136-145); TOTAL PROTEIN 7.1 GM/DL (6.4-8.2)
[2017-08-31 19:35] LABS: LUTEINIZING HORMONE 16.9 mIU/mL
[2017-08-31 19:36] LABS: ESTRADIOL 37.4 PG/ML; FOLLICLE STIMULATING HORMONE 24.4 mIU/mL
[2017-09-03 14:16] LABS: TESTOSTERONE FREE (DIRECT) 0.7 pg/mL (0.0-4.2)
[2017-09-03 14:16] LABS: ESTRONE SERUM 59 pg/mL (.)
== END ==
LOC: M LAB 18:06
DX: N92.1 Excessive and frequent menstruation with irregular cycle (principal)
CPT/HCPCS: 83001

== ENCOUNTER → 2017-09-15 | Outpatient (CLI) | payer OTHER | LOC: M PAIN 13:00 | DX: G89.29 Other chronic pain (principal); M47.817 Spondylosis without myelopathy or radiculopathy, lumbosacral region; E11.9 Type 2 diabetes mellitus without complications; I10 Essential (primary) hypertension; E78.00 Pure hypercholesterolemia, unspecified; E66.9 Obesity, unspecified; K21.9 Gastro-esophageal reflux disease without esophagitis; Z98.84 Bariatric surgery status; Z68.44 Body mass index [BMI] 60.0-69.9, adult; F17.210 Nicotine dependence, cigarettes, uncomplicated; Z79.84 Long term (current) use of oral hypoglycemic drugs; Z79.891 Long term (current) use of opiate analgesic; Z79.899 Other long term (current) drug therapy; Z88.2 Allergy status to sulfonamides; Z88.6 Allergy status to analgesic agent | CPT/HCPCS: G0463 ==

== ENCOUNTER → 2017-09-15 | Outpatient (CLI) | payer OTHER | LOC: M RAD 08:51 | DX: L98.9 Disorder of the skin and subcutaneous tissue, unspecified (principal) | CPT/HCPCS: 76536 ==

== ENCOUNTER → 2017-09-28 | Outpatient (CLI) | payer OTHER ==
[2017-09-28 10:48] LABS: BEDSIDE GLUCOSE 143 MG/DL (70-105)
== END ==
LOC: M PAIN 10:00
DX: G89.29 Other chronic pain (principal); M47.816 Spondylosis without myelopathy or radiculopathy, lumbar region; E11.9 Type 2 diabetes mellitus without complications; I10 Essential (primary) hypertension; E78.00 Pure hypercholesterolemia, unspecified; K21.9 Gastro-esophageal reflux disease without esophagitis; E66.01 Morbid (severe) obesity due to excess calories; Z68.44 Body mass index [BMI] 60.0-69.9, adult; Z88.2 Allergy status to sulfonamides; Z88.6 Allergy status to analgesic agent; Z79.891 Long term (current) use of opiate analgesic; Z98.84 Bariatric surgery status
CPT/HCPCS: Q9967

== ENCOUNTER → 2017-09-29 | Outpatient (CLI) | payer OTHER ==
[2017-09-29 11:06] LABS: HEMATOCRIT 39.9 % (36.0-47.0); HEMOGLOBIN 13.3 g/dl (12.0-15.5); MEAN CORPUSCULAR HEMOGLOBIN 30.7 pg (27.0-33.0); MEAN CORPUSCULAR HGB CONC 33.3 g/dl (32.0-36.5); MEAN CORPUSCULAR VOLUME 92.1 fl (80.0-96.0); PLATELET COUNT, AUTOMATED 311 10^3/uL (150-450); RED BLOOD COUNT 4.33 10^6/uL (4.00-5.40); RED CELL DISTRIBUTION WIDTH 13.6 % (11.5-14.5); WHITE BLOOD COUNT 11.5 10^3/uL (4.0-10.0)
[2017-09-29 11:33] LABS: ALBUMIN 3.3 GM/DL (3.2-5.2); ALBUMIN/GLOBULIN RATIO 0.92 (1.00-1.93); ALKALINE PHOSPHATASE 105 U/L (45-117); ALT/SGPT 25 U/L (12-78); ANION GAP 8 MEQ/L (8-16); AST/SGOT 15 U/L (7-37); BILIRUBIN,TOTAL 0.3 MG/DL (0.2-1.0); BLOOD UREA NITROGEN 8 MG/DL (7-18); CALCIUM LEVEL 8.8 MG/DL (8.5-10.1); CARBON DIOXIDE LEVEL 26 MEQ/L (21-32); CHLORIDE LEVEL 108 MEQ/L (98-107); CREATININE FOR GFR 0.74 MG/DL (0.55-1.30); GLOMERULAR FILTRATION RATE > 60.0 (>58); GLUCOSE, FASTING 155 MG/DL (70-100); POTASSIUM SERUM 4.2 MEQ/L (3.5-5.1); SODIUM LEVEL 142 MEQ/L (136-145); TOTAL PROTEIN 6.9 GM/DL (6.4-8.2)
== END ==
LOC: M LAB 10:20
DX: E11.69 Type 2 diabetes mellitus with other specified complication (principal)
CPT/HCPCS: 80053

== ENCOUNTER → 2017-10-08 | Outpatient (CLI) | payer OTHER | LOC: M PLARAD 08:17 | DX: M16.11 Unilateral primary osteoarthritis, right hip (principal) | CPT/HCPCS: 73721 ==

== ENCOUNTER 2017-10-15 08:11 | Day surgery (SDC) | payer OTHER ==
[2017-10-15] MEDS ORDERED: KETOROLAC 60 MG/2 ML VIAL (J1885) As Ordered (08:41)
[2017-10-15] MEDS ORDERED: LIDOCAINE 2% INJ 100 MG/5 ML SDV (FOR ANES.) As Ordered (08:41)
[2017-10-15] MEDS ORDERED: PROPOFOL 200 MG/20 ML VIAL As Ordered (08:41)
[2017-10-15] MEDS ORDERED: ONDANSETRON 4MG/2ML VIAL (J2405) As Ordered (08:41)
[2017-10-15] MEDS ORDERED: dexameTHASONE 4 MG/ML 1ML VIAL (J1100) As Ordered (08:41)
[2017-10-15] MEDS ORDERED: fentaNYL 100 MCG/2 ML INJECTION (J3010) As Ordered (08:41)
[2017-10-15] MEDS ORDERED: MIDAZOLAM INJ 2 MG/2 ML VIAL (J2250) As Ordered (08:42)
[2017-10-15] MEDS ORDERED: LIDOCAINE 1% SDV 5 ML VIAL SQ (08:45)
[2017-10-15] MEDS ORDERED: PHENYLephrine HCL 500 MCG/5 ML (100MCG/ML) SYRINGE (J2370) As Ordered (08:51)
[2017-10-15] MEDS ORDERED: ACETAMINOPHEN 650 MG SUPP PR (09:00)
[2017-10-15 09:01] LABS: HEMATOCRIT 39.7 % (36.0-47.0); HEMOGLOBIN 13.4 g/dl (12.0-15.5); MEAN CORPUSCULAR HGB CONC 33.8 g/dl (32.0-36.5); MEAN CORPUSCULAR VOLUME 91.9 fl (80.0-96.0); PLATELET COUNT, AUTOMATED 307 10^3/uL (150-450); RED BLOOD COUNT 4.32 10^6/uL (4.00-5.40); RED CELL DISTRIBUTION WIDTH 13.7 % (11.5-14.5); WHITE BLOOD COUNT 11.7 10^3/uL (4.0-10.0)
[2017-10-15 09:11] LABS: ANION GAP 7 MEQ/L (8-16); BLOOD UREA NITROGEN 10 MG/DL (7-18); CALCIUM LEVEL 8.6 MG/DL (8.5-10.1); CARBON DIOXIDE LEVEL 27 MEQ/L (21-32); CHLORIDE LEVEL 107 MEQ/L (98-107); CREATININE FOR GFR 0.73 MG/DL (0.55-1.30); GLOMERULAR FILTRATION RATE > 60.0 (>58); GLUCOSE, FASTING 201 MG/DL (70-100); SODIUM LEVEL 141 MEQ/L (136-145)
[2017-10-15 09:29] LABS: CONTROL LINE UCG INT CTR LINE PRESENT; URINE PREG TEST NEGATIVE (NEGATIVE)
[2017-10-15] MEDS: LR 1,000 ML IV (09:30)
[2017-10-15 09:33] LABS: BEDSIDE GLUCOSE 193 MG/DL (70-105)
[2017-10-15] MEDS: ACETAMINOPHEN 650 MG SUPP As Ordered (11:38)
[2017-10-15] MEDS ORDERED: fentaNYL 100 MCG/2 ML INJECTION (J3010) IV (13:00)
[2017-10-15] MEDS ORDERED: ONDANSETRON 4MG/2ML VIAL (J2405) IV (13:00)
[2017-10-15] MEDS ORDERED: PERCOCET 5MG/325MG TAB PO (13:00)
[2017-10-15] MEDS ORDERED: LR 1,000 ML IV (13:00)
[2017-10-15] MEDS ORDERED: IBUPROFEN 800 MG TAB PO (15:00)
== END 2017-10-15 15:55 | disposition home or self-care (01) ==
LOC: M SDC 08:11
DX: N92.0 Excessive and frequent menstruation with regular cycle (principal); N85.2 Hypertrophy of uterus; E66.01 Morbid (severe) obesity due to excess calories; I10 Essential (primary) hypertension; E78.00 Pure hypercholesterolemia, unspecified; F32.9 Major depressive disorder, single episode, unspecified; K21.9 Gastro-esophageal reflux disease without esophagitis; F41.9 Anxiety disorder, unspecified; E28.2 Polycystic ovarian syndrome; E11.9 Type 2 diabetes mellitus without complications; R60.0 Localized edema; R53.83 Other fatigue; E78.5 Hyperlipidemia, unspecified; E55.9 Vitamin D deficiency, unspecified; K57.32 Diverticulitis of large intestine without perforation or abscess without bleeding; M12.9 Arthropathy, unspecified; M54.2 Cervicalgia; G43.909 Migraine, unspecified, not intractable, without status migrainosus; G47.33 Obstructive sleep apnea (adult) (pediatric); Z68.44 Body mass index [BMI] 60.0-69.9, adult; Z88.2 Allergy status to sulfonamides; Z88.6 Allergy status to analgesic agent; Z79.899 Other long term (current) drug therapy; Z72.0 Tobacco use; Z98.84 Bariatric surgery status
CPT/HCPCS: 58558

== ENCOUNTER → 2017-10-19 | Outpatient (CLI) | payer OTHER | LOC: M PAIN 09:15 | DX: M47.817 Spondylosis without myelopathy or radiculopathy, lumbosacral region (principal); E11.9 Type 2 diabetes mellitus without complications; I10 Essential (primary) hypertension; E78.00 Pure hypercholesterolemia, unspecified; F17.210 Nicotine dependence, cigarettes, uncomplicated; K21.9 Gastro-esophageal reflux disease without esophagitis; Z79.84 Long term (current) use of oral hypoglycemic drugs; Z79.891 Long term (current) use of opiate analgesic; Z79.899 Other long term (current) drug therapy; Z88.8 Allergy status to other drugs, medicaments and biological substances; Z98.84 Bariatric surgery status | CPT/HCPCS: G0463 ==

== ENCOUNTER 2017-10-25 18:28 | Emergency (ER) | payer OTHER ==
[2017-10-25] MEDS: MORPHINE 10 MG/ML 1ML VIAL (J2270) IM (22:06)
== END 2017-10-25 22:30 | disposition home or self-care (01) ==
LOC: M ED 18:28
DX: M54.5 Low back pain (principal); E11.9 Type 2 diabetes mellitus without complications; I10 Essential (primary) hypertension; E66.9 Obesity, unspecified; K21.9 Gastro-esophageal reflux disease without esophagitis; Z98.84 Bariatric surgery status; Z72.0 Tobacco use; Z79.899 Other long term (current) drug therapy; Z88.6 Allergy status to analgesic agent; Z88.2 Allergy status to sulfonamides
CPT/HCPCS: J2270

== ENCOUNTER → 2017-10-29 | Outpatient (CLI) | payer OTHER ==
[~2017-10-29] MED LIST changes: -BUPIVACAINE HCL 0.25% 30 ML VIAL As Ordered; +CONRAY-43 43% 50ML VIAL (Q9960) As Ordered; -ISOVUE-M 300 61% 15ML VIAL (Q9967) As Ordered; +LIDOCAINE 1% MDV 20ML VIAL As Ordered; -LIDOCAINE 1% SDV INJ 30 ML VIAL As Ordered; +methylPREDNISolone SUSP 40 MG/ML (DEPO-medrol) VIAL (J1030) As Ordered
== END ==
LOC: M RADPRO 10:15
DX: M24.151 Other articular cartilage disorders, right hip (principal)
CPT/HCPCS: 20610

== ENCOUNTER → 2017-11-04 | Outpatient (CLI) | payer OTHER | LOC: M PAIN 09:00 | DX: M47.817 Spondylosis without myelopathy or radiculopathy, lumbosacral region (principal); M51.17 Intervertebral disc disorders with radiculopathy, lumbosacral region; E11.9 Type 2 diabetes mellitus without complications; I10 Essential (primary) hypertension; E78.00 Pure hypercholesterolemia, unspecified; K21.9 Gastro-esophageal reflux disease without esophagitis; F17.210 Nicotine dependence, cigarettes, uncomplicated; E66.01 Morbid (severe) obesity due to excess calories; Z68.44 Body mass index [BMI] 60.0-69.9, adult; Z79.84 Long term (current) use of oral hypoglycemic drugs; Z79.899 Other long term (current) drug therapy; Z88.2 Allergy status to sulfonamides; Z88.6 Allergy status to analgesic agent; Z98.84 Bariatric surgery status | CPT/HCPCS: G0463 ==

== ENCOUNTER → 2017-11-11 | Outpatient (CLI) | payer OTHER ==
[~2017-11-11] MED LIST changes: +BUPIVACAINE HCL 0.25% 30 ML VIAL As Ordered; -CONRAY-43 43% 50ML VIAL (Q9960) As Ordered; -LIDOCAINE 1% MDV 20ML VIAL As Ordered; +LIDOCAINE 1% SDV INJ 30 ML VIAL As Ordered; +TRIAMCINOLONE ACETONIDE SUSP 40 MG/ML VIAL (J3301) As Ordered; -methylPREDNISolone SUSP 40 MG/ML (DEPO-medrol) VIAL (J1030) As Ordered
== END ==
LOC: M PAIN 14:15
DX: G89.29 Other chronic pain (principal); M47.816 Spondylosis without myelopathy or radiculopathy, lumbar region; E11.9 Type 2 diabetes mellitus without complications; I10 Essential (primary) hypertension; E78.00 Pure hypercholesterolemia, unspecified; K21.9 Gastro-esophageal reflux disease without esophagitis; E66.01 Morbid (severe) obesity due to excess calories; Z68.44 Body mass index [BMI] 60.0-69.9, adult; F17.210 Nicotine dependence, cigarettes, uncomplicated; Z79.84 Long term (current) use of oral hypoglycemic drugs; Z79.891 Long term (current) use of opiate analgesic; Z79.899 Other long term (current) drug therapy; Z88.2 Allergy status to sulfonamides; Z88.6 Allergy status to analgesic agent; Z98.84 Bariatric surgery status
CPT/HCPCS: J3301

== ENCOUNTER → 2017-12-02 | Outpatient (CLI) | payer OTHER | LOC: M PAIN 09:15 | DX: M47.817 Spondylosis without myelopathy or radiculopathy, lumbosacral region (principal); M51.17 Intervertebral disc disorders with radiculopathy, lumbosacral region; E11.9 Type 2 diabetes mellitus without complications; I10 Essential (primary) hypertension; E78.00 Pure hypercholesterolemia, unspecified; E66.9 Obesity, unspecified; Z68.44 Body mass index [BMI] 60.0-69.9, adult; K21.9 Gastro-esophageal reflux disease without esophagitis; Z98.84 Bariatric surgery status; F17.210 Nicotine dependence, cigarettes, uncomplicated; Z79.84 Long term (current) use of oral hypoglycemic drugs; Z79.899 Other long term (current) drug therapy; Z79.891 Long term (current) use of opiate analgesic; Z88.2 Allergy status to sulfonamides; Z88.6 Allergy status to analgesic agent | CPT/HCPCS: G0463 ==

== ENCOUNTER → 2017-12-07 | Outpatient (REF) | payer OTHER ==
[2017-12-07 18:55] LABS: AMORPHOUS SEDIMENT SMALL (NEGATIVE); APPEARANCE, URINE CLOUDY (CLEAR); BACTERIA, URINE AUTO 2+ (NEGATIVE); BILIRUBIN, URINE AUTO NEGATIVE (NEGATIVE); BLOOD, URINE BLOOD NEGATIVE (NEGATIVE); COLOR, URINE YELLOW (YELLOW); GLUCOSE, URINE (UA) AUTO NEGATIVE (NEGATIVE); KETONE, URINE AUTO NEGATIVE (NEGATIVE); LEUKOCYTE ESTERASE, URINE AUTO 1+ (NEGATIVE); MUCUS, URINE SMALL (NEGATIVE); NITRITE, URINE AUTO NEGATIVE (NEGATIVE); PROTEIN, URINE AUTO NEGATIVE (NEGATIVE); RBC, URINE AUTO 4 /HPF (0-3); SPECIFIC GRAVITY URINE AUTO 1.023 (1.002-1.035); SQUAMOUS EPITHELIAL CELL UR AU 14 /HPF (0-6); WBC, URINE AUTO 26 /HPF (0-3)
== END ==
LOC: M LAB REF 17:47
DX: N39.0 Urinary tract infection, site not specified (principal)

== ENCOUNTER → 2017-12-28 | Outpatient (CLI) | payer OTHER ==
[~2017-12-28] MED LIST changes: +ISOVUE-M 300 61% 15ML VIAL (Q9967) As Ordered; -TRIAMCINOLONE ACETONIDE SUSP 40 MG/ML VIAL (J3301) As Ordered
== END ==
LOC: M PAIN 08:45
DX: G89.29 Other chronic pain (principal); M47.816 Spondylosis without myelopathy or radiculopathy, lumbar region; M47.817 Spondylosis without myelopathy or radiculopathy, lumbosacral region; E11.9 Type 2 diabetes mellitus without complications; I10 Essential (primary) hypertension; E78.00 Pure hypercholesterolemia, unspecified; K21.9 Gastro-esophageal reflux disease without esophagitis; F17.210 Nicotine dependence, cigarettes, uncomplicated; E66.01 Morbid (severe) obesity due to excess calories; Z68.44 Body mass index [BMI] 60.0-69.9, adult; Z79.84 Long term (current) use of oral hypoglycemic drugs; Z79.891 Long term (current) use of opiate analgesic; Z79.899 Other long term (current) drug therapy; Z88.2 Allergy status to sulfonamides; Z88.6 Allergy status to analgesic agent; Z98.84 Bariatric surgery status
CPT/HCPCS: Q9967

== ENCOUNTER 2017-12-31 08:36 | Emergency (ER) | payer OTHER ==
[2017-12-31] MEDS: NORCO, ANEXSIA 5/325MG TABLET (HYDROcodone/ACETAMINOPHEN) PO (09:31)
== END 2017-12-31 10:23 | disposition home or self-care (01) ==
LOC: M ED 08:36
DX: M17.11 Unilateral primary osteoarthritis, right knee (principal); I10 Essential (primary) hypertension; G43.909 Migraine, unspecified, not intractable, without status migrainosus; F41.9 Anxiety disorder, unspecified; F32.9 Major depressive disorder, single episode, unspecified; K21.9 Gastro-esophageal reflux disease without esophagitis; Z87.440 Personal history of urinary (tract) infections; Z98.84 Bariatric surgery status; Z88.2 Allergy status to sulfonamides; Z88.8 Allergy status to other drugs, medicaments and biological substances; Z79.899 Other long term (current) drug therapy; Z79.84 Long term (current) use of oral hypoglycemic drugs
CPT/HCPCS: 73564

== ENCOUNTER → 2018-01-11 | Outpatient (CLI) | payer OTHER | LOC: M PAIN 09:00 | DX: M47.817 Spondylosis without myelopathy or radiculopathy, lumbosacral region (principal); M53.3 Sacrococcygeal disorders, not elsewhere classified; E11.9 Type 2 diabetes mellitus without complications; I10 Essential (primary) hypertension; E78.00 Pure hypercholesterolemia, unspecified; E66.9 Obesity, unspecified; K21.9 Gastro-esophageal reflux disease without esophagitis; Z98.84 Bariatric surgery status; Z68.44 Body mass index [BMI] 60.0-69.9, adult; F17.210 Nicotine dependence, cigarettes, uncomplicated; Z79.84 Long term (current) use of oral hypoglycemic drugs; Z79.891 Long term (current) use of opiate analgesic; Z79.899 Other long term (current) drug therapy; Z88.2 Allergy status to sulfonamides; Z88.6 Allergy status to analgesic agent | CPT/HCPCS: G0463 ==

== ENCOUNTER → 2018-01-25 | Outpatient (CLI) | payer OTHER ==
[~2018-01-25] MED LIST changes: +TRIAMCINOLONE ACETONIDE SUSP 40 MG/ML VIAL (J3301) As Ordered; +diazePAM 5 MG TAB As Ordered; +oxyCODONE 5MG TAB As Ordered
== END ==
LOC: M PAIN 11:30
DX: G89.29 Other chronic pain (principal); M46.1 Sacroiliitis, not elsewhere classified; M53.88 Other specified dorsopathies, sacral and sacrococcygeal region; E11.9 Type 2 diabetes mellitus without complications; I10 Essential (primary) hypertension; E78.00 Pure hypercholesterolemia, unspecified; K21.9 Gastro-esophageal reflux disease without esophagitis; E66.01 Morbid (severe) obesity due to excess calories; Z68.44 Body mass index [BMI] 60.0-69.9, adult; Z79.84 Long term (current) use of oral hypoglycemic drugs; Z79.891 Long term (current) use of opiate analgesic; Z79.899 Other long term (current) drug therapy; Z88.2 Allergy status to sulfonamides; Z88.6 Allergy status to analgesic agent; Z98.84 Bariatric surgery status
CPT/HCPCS: J3301

== ENCOUNTER → 2018-02-02 | Outpatient (CLI) | payer OTHER ==
[~2018-02-02] MED LIST changes: -BUPIVACAINE HCL 0.25% 30 ML VIAL As Ordered; +CONRAY-43 43% 50ML VIAL (Q9960) As Ordered; -ISOVUE-M 300 61% 15ML VIAL (Q9967) As Ordered; +LIDOCAINE 1% MDV 20ML VIAL As Ordered; -LIDOCAINE 1% SDV INJ 30 ML VIAL As Ordered; -diazePAM 5 MG TAB As Ordered; -oxyCODONE 5MG TAB As Ordered
== END ==
LOC: M RADPRO 10:27
DX: M24.151 Other articular cartilage disorders, right hip (principal); Z79.899 Other long term (current) drug therapy; Z88.8 Allergy status to other drugs, medicaments and biological substances
CPT/HCPCS: 20610

== ENCOUNTER → 2018-02-07 | Outpatient (CLI) | payer OTHER ==
[~2018-02-07] MED LIST changes: +BUPIVACAINE HCL 0.25% 30 ML VIAL As Ordered; -CONRAY-43 43% 50ML VIAL (Q9960) As Ordered; +ISOVUE-M 300 61% 15ML VIAL (Q9967) As Ordered; -LIDOCAINE 1% MDV 20ML VIAL As Ordered; +LIDOCAINE 1% SDV INJ 30 ML VIAL As Ordered; -TRIAMCINOLONE ACETONIDE SUSP 40 MG/ML VIAL (J3301) As Ordered
[2018-02-07 09:04] LABS: BEDSIDE GLUCOSE 100 MG/DL (70-105)
== END ==
LOC: M PAIN 08:30
DX: G89.29 Other chronic pain (principal); M47.816 Spondylosis without myelopathy or radiculopathy, lumbar region; M47.817 Spondylosis without myelopathy or radiculopathy, lumbosacral region; E11.9 Type 2 diabetes mellitus without complications; I10 Essential (primary) hypertension; E78.00 Pure hypercholesterolemia, unspecified; K21.9 Gastro-esophageal reflux disease without esophagitis; F17.210 Nicotine dependence, cigarettes, uncomplicated; E66.01 Morbid (severe) obesity due to excess calories; Z68.43 Body mass index [BMI] 50.0-59.9, adult; Z79.84 Long term (current) use of oral hypoglycemic drugs; Z79.891 Long term (current) use of opiate analgesic; Z79.899 Other long term (current) drug therapy; Z88.2 Allergy status to sulfonamides; Z88.6 Allergy status to analgesic agent; Z98.84 Bariatric surgery status
CPT/HCPCS: Q9967

== ENCOUNTER 2018-02-09 08:27 | Outpatient (RCR) | payer OTHER | END 2018-02-16 | LOC: M PT 08:27 | DX: Z47.89 Encounter for other orthopedic aftercare (principal); M17.11 Unilateral primary osteoarthritis, right knee | CPT/HCPCS: 97110 ==

== ENCOUNTER 2018-02-13 15:13 | Emergency (ER) | payer OTHER ==
[2018-02-13] MEDS: PANTOPRAZOLE 40MG TAB (PROTONIX) PO (17:15)
[2018-02-13] MEDS: GI COCKTAIL 50ML BTL(HYOSCYAMINE/MAALOX/LIDOCAINE VISCOUS)(1:3:1) PO (17:15)
[2018-02-13] MEDS: ONDANSETRON 4 MG ORAL DISINTEGRATING TAB (Q0162 PER 1MG) PO (17:25)
[2018-02-13] MEDS: PERCOCET 5MG/325MG TAB PO (17:26)
== END 2018-02-13 17:29 | disposition home or self-care (01) ==
LOC: M ED 15:13
DX: R13.10 Dysphagia, unspecified (principal); R07.0 Pain in throat; M54.16 Radiculopathy, lumbar region; Z79.899 Other long term (current) drug therapy; Z79.84 Long term (current) use of oral hypoglycemic drugs
CPT/HCPCS: Q0162

== ENCOUNTER → 2018-02-15 | Outpatient (CLI) | payer OTHER | LOC: M PAIN 09:00 | DX: M51.27 Other intervertebral disc displacement, lumbosacral region (principal); M54.17 Radiculopathy, lumbosacral region; E11.9 Type 2 diabetes mellitus without complications; I10 Essential (primary) hypertension; E78.00 Pure hypercholesterolemia, unspecified; F17.210 Nicotine dependence, cigarettes, uncomplicated; E66.01 Morbid (severe) obesity due to excess calories; Z68.43 Body mass index [BMI] 50.0-59.9, adult; Z79.84 Long term (current) use of oral hypoglycemic drugs; Z79.891 Long term (current) use of opiate analgesic; Z79.899 Other long term (current) drug therapy; Z88.2 Allergy status to sulfonamides; Z88.6 Allergy status to analgesic agent; Z98.84 Bariatric surgery status | CPT/HCPCS: G0463 ==

== ENCOUNTER 2018-02-18 17:08 | Emergency (ER) | payer OTHER ==
[2018-02-18] MEDS: PANTOPRAZOLE 40MG INJ (PROTONIX) (C9113) IV (17:45)
[2018-02-18] MEDS: NS 1,000 ML IV (17:45)
[2018-02-18 18:04] LABS: HEMATOCRIT 42.1 % (36.0-47.0); MEAN CORPUSCULAR HEMOGLOBIN 30.8 pg (27.0-33.0); MEAN CORPUSCULAR HGB CONC 33.3 g/dl (32.0-36.5); MEAN CORPUSCULAR VOLUME 92.5 fl (80.0-96.0); PLATELET COUNT, AUTOMATED 334 10^3/uL (150-450); RED BLOOD COUNT 4.55 10^6/uL (4.00-5.40)
[2018-02-18 18:06] LABS: POSITIVE DIFF POS FLAG; WHITE BLOOD COUNT 14.2 10^3/uL (4.0-10.0)
[2018-02-18 18:07] LABS: ADD MANUAL DIFFER YES; DIFF SLIDE NUMBER 317
[2018-02-18 18:09] LABS: CALCIUM OXALATE CRYSTALS RFX LARGE; KETONE, URINE AUTO RFX NEGATIVE (NEGATIVE); LEUKOCYTE ESTERASE UR AUTO RFX 3+ (NEGATIVE); MUCUS, URINE RFX SMALL (NEGATIVE); NITRITE, URINE AUTO RFX NEGATIVE (NEGATIVE); RBC, URINE AUTO RFX 6 /HPF (0-3); SPECIFIC GRAVITY UR AUTO RFX 1.025 (1.002-1.035); SQUAM EPITHELIAL CELL UR AURFX 17 /HPF (0-6); WBC, URINE AUTO RFX 65 /HPF (0-3)
[2018-02-18 18:23] LABS: ALBUMIN 3.1 GM/DL (3.2-5.2); ALBUMIN/GLOBULIN RATIO 0.78 (1.00-1.93); ALKALINE PHOSPHATASE 98 U/L (45-117); ALT/SGPT 40 U/L (12-78); ANION GAP 9 MEQ/L (8-16); AST/SGOT 19 U/L (7-37); BILIRUBIN,DIRECT < 0.1 MG/DL (0.0-0.2); BILIRUBIN,TOTAL 0.3 MG/DL (0.2-1.0); BLOOD UREA NITROGEN 10 MG/DL (7-18); CARBON DIOXIDE LEVEL 26 MEQ/L (21-32); CHLORIDE LEVEL 107 MEQ/L (98-107); CREATININE FOR GFR 0.81 MG/DL (0.55-1.30); GLOMERULAR FILTRATION RATE > 60.0 (>58); GLUCOSE, FASTING 88 MG/DL (70-100); LIPASE 54 U/L (73-393); POTASSIUM SERUM 4.5 MEQ/L (3.5-5.1); SODIUM LEVEL 142 MEQ/L (136-145); TOTAL PROTEIN 7.1 GM/DL (6.4-8.2)
[2018-02-18 18:33] LABS: ATYPICAL LYMPH 23 % (0-5); EOSINOPHILS 2 % (0-5); LYMPHOCYTES 20 % (16-52); MONOCYTES 3 % (0-8); NEUTROPHILS 52 % (35-75)
[2018-02-18] MEDS ORDERED: ISOVUE-370 76% 100ML VIAL (Q9967) As Ordered (18:34)
[2018-02-18 18:37] LABS: PLATELET ESTIMATE NORMAL (NORMAL)
[2018-02-18] MEDS: GI COCKTAIL 50ML BTL(HYOSCYAMINE/MAALOX/LIDOCAINE VISCOUS)(1:3:1) PO (19:47)
[2018-02-18] MEDS: CIPROFLOXACIN 500 MG TAB PO (20:46)
== END 2018-02-18 20:49 | disposition home or self-care (01) ==
LOC: M ED 17:08
DX: N30.00 Acute cystitis without hematuria (principal); K29.70 Gastritis, unspecified, without bleeding; E11.9 Type 2 diabetes mellitus without complications; I10 Essential (primary) hypertension; E78.5 Hyperlipidemia, unspecified; K21.9 Gastro-esophageal reflux disease without esophagitis; K57.32 Diverticulitis of large intestine without perforation or abscess without bleeding; G43.909 Migraine, unspecified, not intractable, without status migrainosus; G47.30 Sleep apnea, unspecified; M54.9 Dorsalgia, unspecified; F41.9 Anxiety disorder, unspecified; F32.9 Major depressive disorder, single episode, unspecified; Z72.0 Tobacco use; Z79.84 Long term (current) use of oral hypoglycemic drugs; Z79.899 Other long term (current) drug therapy; Z88.6 Allergy status to analgesic agent; Z88.2 Allergy status to sulfonamides
CPT/HCPCS: C9113

== ENCOUNTER 2018-02-23 08:26 | Outpatient (RCR) | payer OTHER | END 2018-03-18 | LOC: M PT 08:26 | DX: M17.11 Unilateral primary osteoarthritis, right knee (principal) | CPT/HCPCS: 97010 ==

== ENCOUNTER → 2018-02-23 | Outpatient (CLI) | payer OTHER ==
[2018-02-23 11:04] LABS: ESTIMATED AVERAGE GLUCOSE 134 MG/DL (60-110); HEMOGLOBIN A1c 6.3 %
[2018-02-23 11:16] LABS: ALBUMIN/GLOBULIN RATIO 0.86 (1.00-1.93); ALKALINE PHOSPHATASE 94 U/L (45-117); ALT/SGPT 28 U/L (12-78); ANION GAP 5 MEQ/L (8-16); AST/SGOT 13 U/L (7-37); BILIRUBIN,TOTAL 0.2 MG/DL (0.2-1.0); BLOOD UREA NITROGEN 8 MG/DL (7-18); CALCIUM LEVEL 8.8 MG/DL (8.5-10.1); CARBON DIOXIDE LEVEL 29 MEQ/L (21-32); CHLORIDE LEVEL 107 MEQ/L (98-107); CHOLESTEROL LEVEL 164 MG/DL (<200); CHOLESTEROL RISK RATIO 3.489 (<5); GLOMERULAR FILTRATION RATE > 60.0 (>58); GLUCOSE, FASTING 62 MG/DL (70-100); HDL CHOLESTEROL 47 MG/DL (>40); LDL CHOLESTEROL 86 MG/DL (<100); NON-HDL-C 117 MG/DL; POTASSIUM SERUM 3.9 MEQ/L (3.5-5.1); SODIUM LEVEL 141 MEQ/L (136-145); TOTAL PROTEIN 6.5 GM/DL (6.4-8.2); TRIGLYCERIDES LEVEL 156 MG/DL (<150)
== END ==
LOC: M LAB 09:53
DX: E11.69 Type 2 diabetes mellitus with other specified complication (principal)
CPT/HCPCS: 83036

== ENCOUNTER → 2018-02-23 | Outpatient (CLI) | payer OTHER ==
[2018-02-23 10:47] LABS: BASO % 0.2 % (0.0-1.0); EOS # 0.4 10^3/uL (0.0-0.50); EOS % 2.7 % (0.0-3.0); HEMATOCRIT 41.3 % (36.0-47.0); HEMOGLOBIN 13.2 g/dl (12.0-15.5); IMMATURE GRANULOCYTE # 0.1 10^3/uL (0-0); IMMATURE GRANULOCYTE % 0.5 % (0-3.0); LYMPH % 38.8 % (24.0-44.0); MEAN CORPUSCULAR HEMOGLOBIN 30.3 pg (27.0-33.0); MEAN CORPUSCULAR VOLUME 94.7 fl (80.0-96.0); MONO # 0.8 10^3/uL (0.0-0.8); MONO % 6.2 % (0.0-5.0); NEUTROPHILS # 6.9 10^3/uL (1.8-7.7); NEUTROPHILS % 51.6 % (36.0-66.0); PLATELET COUNT, AUTOMATED 273 10^3/uL (150-450); RED BLOOD COUNT 4.36 10^6/uL (4.00-5.40); RED CELL DISTRIBUTION WIDTH 14.1 % (11.5-14.5)
[2018-02-23 10:48] LABS: HEMATOCRIT 41.3 % (36.0-47.0)
[2018-02-23 10:52] LABS: LYMPH # 5.2 10^3/uL (1.5-4.5); POSITIVE DIFF POS FLAG; WHITE BLOOD COUNT 13.3 10^3/uL (4.0-10.0)
[2018-02-23 11:04] LABS: ESTIMATED AVERAGE GLUCOSE 137 MG/DL (60-110); HEMOGLOBIN A1c 6.4 %
[2018-02-23 11:17] LABS: ALBUMIN 2.9 GM/DL (3.2-5.2); ALBUMIN/GLOBULIN RATIO 0.81 (1.00-1.93); ALKALINE PHOSPHATASE 97 U/L (45-117); ALT/SGPT 30 U/L (12-78); ANION GAP 6 MEQ/L (8-16); AST/SGOT 13 U/L (7-37); BILIRUBIN,TOTAL 0.3 MG/DL (0.2-1.0); BLOOD UREA NITROGEN 9 MG/DL (7-18); CALCIUM LEVEL 8.5 MG/DL (8.5-10.1); CARBON DIOXIDE LEVEL 27 MEQ/L (21-32); CHLORIDE LEVEL 108 MEQ/L (98-107); CREATININE FOR GFR 0.84 MG/DL (0.55-1.30); FERRITIN 51 NG/ML (8-252); GLOMERULAR FILTRATION RATE > 60.0 (>58); GLUCOSE, FASTING 61 MG/DL (70-100); IRON (FE) 58 UG/DL (50-170); MAGNESIUM LEVEL 1.7 MG/DL (1.8-2.4); PERCENT SATURATION 23.3 % (13.2-45.0); PHOSPHORUS LEVEL 2.7 MG/DL (2.5-4.9); POTASSIUM SERUM 3.9 MEQ/L (3.5-5.1); SODIUM LEVEL 141 MEQ/L (136-145); TOTAL IRON BINDING CAPACITY 249 UG/DL (250-450); TOTAL PROTEIN 6.5 GM/DL (6.4-8.2)
[2018-02-23 11:23] LABS: TOTAL 25(OH) VITAMIN D 50.6 NG/ML (30.0-100.0); VITAMIN B12 LEVEL 331 PG/ML (247-911)
[2018-02-25 11:31] LABS: PRETREATED FOLATE FOR RBCFOL 6.8 NG/ML; RBC FOLATE 345 NG/ML (280-791)
== END ==
LOC: M LAB 10:05
DX: K91.2 Postsurgical malabsorption, not elsewhere classified (principal); E55.9 Vitamin D deficiency, unspecified; Z98.84 Bariatric surgery status
CPT/HCPCS: 83550

== ENCOUNTER → 2018-03-01 | Outpatient (CLI) | payer OTHER ==
[~2018-03-01] MED LIST changes: -BUPIVACAINE HCL 0.25% 30 ML VIAL As Ordered; +diazePAM 5 MG TAB As Ordered; +methylPREDNISolone SUSP 40 MG/ML (DEPO-medrol) VIAL (J1030) As Ordered; +oxyCODONE 5MG TAB As Ordered
[2018-03-01 13:26] LABS: BEDSIDE GLUCOSE 56 MG/DL (70-105)
[2018-03-01 13:49] LABS: BEDSIDE GLUCOSE 87 MG/DL (70-105)
[2018-03-01 15:34] LABS: BEDSIDE GLUCOSE 90 MG/DL (70-105)
== END ==
LOC: M PAIN 13:00
DX: M51.16 Intervertebral disc disorders with radiculopathy, lumbar region (principal); M48.061 Spinal stenosis, lumbar region without neurogenic claudication; E11.9 Type 2 diabetes mellitus without complications; I10 Essential (primary) hypertension; E78.00 Pure hypercholesterolemia, unspecified; E66.9 Obesity, unspecified; Z68.44 Body mass index [BMI] 60.0-69.9, adult; F17.210 Nicotine dependence, cigarettes, uncomplicated; K21.9 Gastro-esophageal reflux disease without esophagitis; Z98.84 Bariatric surgery status; Z79.84 Long term (current) use of oral hypoglycemic drugs; Z79.899 Other long term (current) drug therapy; Z79.891 Long term (current) use of opiate analgesic; Z90.49 Acquired absence of other specified parts of digestive tract; Z88.5 Allergy status to narcotic agent; Z88.2 Allergy status to sulfonamides
CPT/HCPCS: J1030

== ENCOUNTER → 2018-03-03 | Outpatient (CLI) | payer OTHER ==
[~2018-03-03] MED LIST changes: +E-Z-GAS II EFFERVESCENT PACKET (SODIUM BICARB./CITRIC ACID/SIMETHICONE) As Ordered; +E-Z-HD 98% w/w 340GM SUSP BTL As Ordered; +E-Z-PAQUE 96% w/w SUSP 176GM BTL As Ordered; -ISOVUE-M 300 61% 15ML VIAL (Q9967) As Ordered; -LIDOCAINE 1% SDV INJ 30 ML VIAL As Ordered; -diazePAM 5 MG TAB As Ordered; -methylPREDNISolone SUSP 40 MG/ML (DEPO-medrol) VIAL (J1030) As Ordered; -oxyCODONE 5MG TAB As Ordered
== END ==
LOC: M RAD 10:37
DX: K21.9 Gastro-esophageal reflux disease without esophagitis (principal); R13.10 Dysphagia, unspecified
CPT/HCPCS: 74220

== ENCOUNTER 2018-03-07 12:22 | Emergency (ER) | payer OTHER | END 2018-03-07 15:05 | disposition home or self-care (01) | LOC: M ED 12:22 | DX: M54.42 Lumbago with sciatica, left side (principal); E11.9 Type 2 diabetes mellitus without complications; I10 Essential (primary) hypertension; E78.5 Hyperlipidemia, unspecified | CPT/HCPCS: 73552 ==

== ENCOUNTER → 2018-03-17 | Outpatient (CLI) | payer OTHER | LOC: M PAIN 10:15 | DX: Z53.29 Procedure and treatment not carried out because of patient's decision for other reasons (principal) ==

== ENCOUNTER 2018-03-30 19:09 | Emergency (ER) | payer OTHER ==
[2018-03-30] MEDS: NS 1,000 ML IV ×2 (21:00)
[2018-04-05 11:50] LABS: BEDSIDE GLUCOSE 145 MG/DL (70-105)
[2018-04-05 12:15] LABS: BEDSIDE GLUCOSE 145 MG/DL (70-105)
== END 2018-03-30 22:39 | disposition home or self-care (01) ==
LOC: M ED 19:09
DX: R42 Dizziness and giddiness (principal); T50.905A Adverse effect of unspecified drugs, medicaments and biological substances, initial encounter; X58.XXXA Exposure to other specified factors, initial encounter; Y92.89 Other specified places as the place of occurrence of the external cause; E11.9 Type 2 diabetes mellitus without complications; I10 Essential (primary) hypertension; K21.9 Gastro-esophageal reflux disease without esophagitis; E66.8 Other obesity; F11.20 Opioid dependence, uncomplicated; Z79.899 Other long term (current) drug therapy; Z79.84 Long term (current) use of oral hypoglycemic drugs; Z88.0 Allergy status to penicillin; Z88.8 Allergy status to other drugs, medicaments and biological substances
CPT/HCPCS: 96360; 99284

== ENCOUNTER → 2018-03-31 | Outpatient (CLI) | payer OTHER ==
[~2018-03-31] MED LIST changes: +ABIL1TAB11 PO; +ACE65ERTAB PO; +ALBU17IN INH; +AMIT25TA; +AMOX/K PO; +ARTI99.0; +ASPI81TA85 PO; +BACT800T5 PO; +BUPR100T3; +BUSP10TA; +CALC250T PO; +CARA1TAB6 PO; +CETI10TA PO; +CIPR-249 PO; +CIPR500T3 PO; +CODE30TA3 PO; +CYCL10TA; +DITR1TAB PO; +DOCU100C16; +DOCU100C16 PO; +DOXY100C37 PO; +DULO30CA PO; -E-Z-GAS II EFFERVESCENT PACKET (SODIUM BICARB./CITRIC ACID/SIMETHICONE) As Ordered; -E-Z-HD 98% w/w 340GM SUSP BTL As Ordered; -E-Z-PAQUE 96% w/w SUSP 176GM BTL As Ordered; +FENO145T13 PO; +FENO150C PO; +FLAG500T PO; +FLON0.054; +FLUTISP; +FURO20TA2 PO; +FURO40TA2; +GABA-1171 PO; +GABA-843 PO; +GABA-845 PO; +GABA600T4 PO; +INSULANT SC; +IRON65TA PO; +LOSA25TA14 PO; +LYRI200C OR; +METF10004 PO; +METF500T13 PO; +MISO200T56; +MONT10TA2 PO; +MORP-38 PO; +MULT1TAB8 PO; +NEUR300C PO; +NORCOTAB PO; +OMEP40CA2; +OXYC-517; +OXYC1SOL5; +OXYC1TAB23 PO; +PANT40TA3 PO; +PERC5TAB12 PO; +PHEN15CA PO; +PREG100CA; +PROT1TAB2 PO; +PYRI1TAB5 PO; +RANI15TA PO; +ROBA500T PO; +SIMV20TA2 PO; +SPIR50TA4 PO; +SUMA50TA2; +TIOT18INH INH; +TOPA50TA8 PO; +TRAD5TAB PO; +TRAM50TA2 PO; +VENTAER INH; +VITA-110 PO; +VITA500T3 PO; +VITAPOW41 PO; +ZITHTAB PO; +ZOFR4TAB14 PO
--- NOTE | 2018-04-23 01:00 | ECWPNPC ---
PATIENT NAME: STELLA TAVERAS : 1975 GENDER: FEMALE VISIT DATE: 03/31/2018 DISCHARGE DATE: 03/31/18 1610 VISIT LOCKED DATE TIME: PHYSICIAN: PATRICIA MCNAMARA RESOURCE: PATRICIA MCNAMARA REASON FOR APPOINTMENT 1. POST PROC HISTORY OF PRESENT ILLNESS HISTORY OF PRESENT ILLNESS: HERE FOR POST PROCEDURE F/U.HAD L4/5 LESI ON 03-01-18.REPORTING >50% IMPROVEMENT IN PAIN X3 WEEKS THEN SHE FELL.SHE REPORTS THAT SINCE FALL SHE IS GETTING RIGHT LEG PAIN AND RIGHT LOW BACK PAIN AGAIN.STARTED ON MS CONTIN 15MG DAILY.THIS IS HELPING .SHE DOES NOT NEED TO TAKE PERCOCET MUCH.RATING PAIN VAS 8/10. PAIN THE PATIENT DESCRIBES THE PAIN... FALL RISK SCREENING: SCREENING :NO FALLS IN THE PAST YEAR CURRENT MEDICATIONS TAKING ABILIFY 5 MG TABLET 1 TABLET ORALLY ONCE A DAY TAKING CETIRIZINE HCL 10 MG TABLET ORALLY ONCE A DAY TAKING LOSARTAN POTASSIUM 25 MG TABLET ORALLY DAILY TAKING MONTELUKAST SODIUM 10 MG TABLET 1 TABLET ORALLY ONCE A DAY TAKING DITROPAN XL 10 MG TABLET EXTENDED RELEASE 24 HOUR 1 TABLET ORALLY ONCE A DAY TAKING OMEPRAZOLE 40 MG CAPSULE DELAYED RELEASE 1 CAPSULE ORALLY BID TAKING VITAMIN B12 500 TABLET 500 MCG ORALLY DAILY TAKING MULTIVITAMIN 1 TABLET CHEWABLE 1 TAB(S) ORALLY DAILY TAKING CALCIUM CITRATE + 630 MG TABLET 2 TABLET WITH MEALS ORALLY TWICE A DAY TAKING LASIX 40 MG TABLET ORALLY BID TAKING METFORMIN HCL 1000 MG TABLET 1 TABLET WITH MEALS ORALLY TWICE A DAY, NOTES: 02/28/18 TAKING WELLBUTRIN 100 MG TABLET 1 TABLET ORALLY TWICE A DAY TAKING IRON 325 MGS 1 TAB ORAL DAILY TAKING CYMBALTA 90 MG CAPSULE DELAYED RELEASE PARTICLES 1 CAPSULE ORALLY 30MG CAP AND 60 MG CAP DAILY TAKING VITAMIN D 1000 UNIT CAPSULE CAPSULE ORALLY ONCE A DAY TAKING COLACE 100 MG CAPSULE 1 CAPSULE NEEDED ORALLY 3X/DAY TAKING FLONASE 50 MCG/ACT SUSPENSION 1 SPRAY IN EACH NOSTRIL NASALLY ONCE A DAY NEEDED TAKING SUMATRIPTAN SUCCINATE 50 MG TABLET 1 TABLET NEEDED ORALLY DIRECTED TAKING GABAPENTIN 800 MG TABLET 1 CAPSULE ORALLY FOR PAIN TID TAKING AMITRIPTYLINE HCL 25 MG TABLET 1 TABLET ORALLY ONCE A DAY TAKING OXYCODONE HCL 5 MG TABLET 1 TABLET NEEDED ORALLY Q8H PRN MDD3 #50 TAB SHOULD LAST 30 DAYS TAKING LYRICA 200 MG CAPSULE 1 CAPSULE ORALLY Q8H TID TAKING CYCLOBENZAPRINE HCL 10 MG TABLET DIRECTED ORALLY Q8H PRN PAIN #30 TAB SHOULD LAST 30 DAYS TAKING MS CONTIN 15 MG TABLET EXTENDED RELEASE 1 TABLET ORALLY ONCE DAILY MDD1 IN AM MEDICATION LIST REVIEWED AND RECONCILED WITH THE PATIENT PAST MEDICAL HISTORY DIABETES HYPERTENSION HYPERCHOLESTEREMIA OBESITY GERD (GASTROESOPHAGEAL REFLUX DISEASE) GASTRIC BYPASS ANXIETY BACK PAIN RIGHT HIP AND KNEE PAIN ALLERGIES SULFA (FOR ALLERGY USE ONLY): RASH: ALLERGY NSAIDS: GASTRIC BYPASS: CONTRAINDICATION SURGICAL HISTORY GASTRIC BYPASS 06/2015 BILAT CARPAL TUNNEL C SECTION CHOLECYSTECTOMY TONSILLECTOMY & ADENOIDECTOMY D&C 10/2017 FAMILY HISTORY FATHER: , DIAGNOSED WITH HEART DISEASE MOTHER: ALIVE, DIAGNOSED WITH DIABETES, HYPERTENSION 2 BROTHER(S) . 1 SON(S) - HEALTHY. 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 SOCIAL HISTORY GENERAL: TOBACCO USE ARE YOU A:CURRENT SMOKER ARE YOU INTERESTED IN QUITTING?NOT READY TO QUIT WAITING FOR CLASS TO START AGAIN COUNSELED THE PATIENT ON SMOKING EFFECTS, EDUCATION [id number]/13/2018 HOW MANY CIGARETTES A DAY DO YOU SMOKE?11-20 HOW SOON AFTER YOU WAKE UP DO YOU SMOKE YOUR FIRST CIGARETTE?WITHIN 5 MIN HOW OFTEN DO YOU SMOKE CIGARETTES?EVERY DAY PATIENT COUNSELED ON THE DANGERS OF TOBACCO USE AND URGED TO QUIT:03/31/2018 SMOKING CESSATION INFORMATION GIVEN03/01/201810/19 PAMPHLET GIVEN ALCOHOL SCREENING DID YOU HAVE A DRINK CONTAINING ALCOHOL IN THE PAST YEAR?NO POINTS0 INTERPRETATIONNEGATIVE RECREATIONAL DRUG USE DRUG USE?NO CAFFEINE CAFFEINE USE?YES HOW OFTEN AND HOW MUCH? 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 DIET: REGULAR. EXERCISE: WALKS. MARITAL STATUS: SINGLE. OTHERS AT HOME: CHILD, OTHER NON-RELATIVE. NEW PATIENT PAIN DIARY TODAY'S VISITNOTES PAIN CLINIC PFS, CLERGY, PUBLIC HEALTH REFERRALS PFS REFERRAL NEEDED?NO CLERGY REFERRAL NEEDED?NO PUBLIC HEALTH REFERRAL NEEDED?NO WAS THE PROVIDER NOTIFIED OF ANY PERTINENT INFO? N/A HAS THE PATIENT BEEN EDUCATED REGARDING HIS/HER PLAN OF CARE?YES HAS THE PATIENT BEEN EDUCATED REGARDING PAIN, THE RISK FOR PAIN, THE IMPORTANCE OF EFFECTIVE PAIN MANAGEMENT, AND THE PAIN ASSESSMENT PROCESS?YES ADVANCE DIRECTIVE ADVANCE DIRECTIVE DISCUSSED WITH PATIENT:YES HCP - ARNULFO TAVERAS [phone] REVIEWED WITH PATIENT 01/11/18 0940 02/07/18 0905 REVIEWED WITH PT. AD03/31 18 1505 REVIEWED WITH PT. AD. HOSPITALIZATION/MAJOR DIAGNOSTIC PROCEDURE SURGERIES REVIEW OF SYSTEMS REVIEWED BY: PROVIDER: PATRICIA ROTHMAN . CONSTITUTIONAL: ANY CHANGE IN YOUR MEDICAL CONDITION? NO . CHILLS NO . FEVER NO . INFECTION: DO YOU HAVE NEW INFECTIONS? NO . DO YOU HAVE HISTORY OF MRSA? NO . MUSCULOSKELETAL: ANY NEW PATTERNS OF PAIN OR NUMBNESS? NO . GASTROENTEROLOGY: ANY NEW CHANGE IN BOWEL CONTROL? NO . GENITOURINARY: ANY NEW CHANGE IN BLADDER CONTROL? YES, INCONTINENT AT NIGHT X 3 OVER THE PAST WEEK, DENIES BURNING ON URINATION . IS THERE A CHANCE YOU COULD BE ? NO . HEMATOLOGY/LYMPH: DO YOU TAKE ANY BLOOD THINNERS? (FOR EXAMPLE- COUMADIN, PLAVIX, AGGRENOX, PLATEL, PRADAXA, OR XARELTO) NO . WHEN WAS YOUR LAST DOSE? DATE: TIME: . NEUROLOGY: HAVE YOU FALLEN IN THE PAST 6 MONTHS? YES, X 1(LAST WEEK) CAUGHT HER TOE ON SOMETHING AND WENT DOWN. NOT SEEN AFTER. HAS LARGE ECCHYMOTIC AREA ON LEFT LEG AND THIGH. HAS HAD AN INCREASE IN BACK PAIN SINCE. . ANY NEW EXTREMITY NUMBNESS OR WEAKNESS? NO . CARDIOLOGY: DO YOU HAVE A PACEMAKER OR DEFIBRILLATOR? NO . RESPIRATORY: HAVE YOU BEEN SICK IN THE PAST WEEK? NO . FEVER NO . FLU LIKE SYMPTOMS? NO . COUGH NO . INTEGUMENTARY: DO YOU HAVE ANY RASHES OR OPEN SORES? NO . ALLERGIC/IMMUNO: ARE YOU ALLERGIC TO SHELLFISH OR IV DYE? NO . ANY NEW ALLERGIES? NO . PSYCHIATRIC: DO YOU HAVE THOUGHTS OF HURTING YOURSELF OR SOMEONE ELSE? NO . ARE YOU ABUSED, NEGLECTED, OR IN AN UNSAFE ENVIRONMENT? NO . ENDOCRINOLOGY: ARE YOU DIABETIC? YES, STATES FSBS WAS 146 THIS A.M. . OTHER: DO YOU NEED ANY PRESCRIPTIONS? NO . IF YES, PLEASE LIST: ____ . ANY NEW PROBLEMS WITH YOUR MEDICATIONS? NO . WHEN DID YOU LAST EAT? ____ . WHEN DID YOU LAST DRINK? ____ . WHAT DID YOU LAST DRINK? ____ . NAME OF PERSON DRIVING YOU HOME? ____ . DO YOU HAVE ANY OTHER QUESTIONS OR CONCERNS WAS VERY DROUSY YEST AND WAS IN A "FOG" ON AND OFF ALL DAY WENT TO THE ED AND THEY STATED TO STOP THE NEW MEDICATION THAT SHE WAS JUST STARTED ON(DIDN'T KNOW THE NAME OF IT ) . VITAL SIGNS WT 320.6 LBS, HT 60.5 IN, BMI 61.58 INDEX, BP 132/78 MM HG, HR 101 /MIN, RR 18 /MIN, TEMP 98.5 F, OXYGEN SAT % 98%, SAFE IN ENV? (Y/N) Y, NA INITIALS SC 14:54, REVIEWED BY: TRINITY. EXAMINATION GENERAL EXAMINATION: LUNGS:LUNG SOUNDS ARE CLEAR. HEART:HEART RATE REGULAR. MUSCULOSKELETAL:*, MUSCLE STRENGTH TESTING:WEAK OVER RIGHT LEG. PALPATION: POSITIVE FOR PAIN OVER L/S SPINE. POSITIVE FOR PAIN OVER L/S PARSPINALS.POSITIVE SLE RIGHT LEG AT <30 DEGREES. DIAGNOSTIC:MRI L/S [id number]. MRI [id number]-REVIEWED. ASSESSMENTS SPONDYLOSIS OF LUMBOSACRAL REGION WITHOUT MYELOPATHY OR RADICULOPATHY - M47.817 (PRIMARY) PROTRUSION OF INTERVERTEBRAL DISC OF LUMBOSACRAL REGION - M51.27 TREATMENT SPONDYLOSIS OF LUMBOSACRAL REGION WITHOUT MYELOPATHY OR RADICULOPATHY CONTINUE OXYCODONE HCL TABLET, 5 MG, 1 TABLET NEEDED, ORALLY, Q8H PRN MDD3 #50 TAB SHOULD LAST 30 DAYS CONTINUE LYRICA CAPSULE, 200 MG, 1 CAPSULE, ORALLY, Q8H TID CONTINUE CYCLOBENZAPRINE HCL TABLET, 10 MG, DIRECTED, ORALLY, Q8H PRN PAIN #30 TAB SHOULD LAST 30 DAYS INCREASE MS CONTIN TABLET EXTENDED RELEASE, 15 MG, 1 TABLET, ORALLY, Q12H BID MDD2, 30 DAY(S), 60, REFILLS 0 NOTES: ISTOP REGISTRY REVIEWED AND DEMONSTRATES COMPLLIANCE. (REF # [id number] ) BRINGS IN MEDICATIONS WHICH IS APPROPRIATE FOR WHAT WAS DISPENSED. RECENT URINE TOXICOLOGY REVIEWED. NO UNAUTHORIZED MEDICATIONS. NO ILLICIT SUBSTANCES AND PRESCRIBED MEDICATIONS WERE PRESENT. URINE TOX TODAY, RISKS AND BENEFITS OF NARCOTIC/OPIOD MEDICATIONS WERE REVIEWED WITH PATIENT - THIS INCLUDES BUT IS NOT LIMITED TO RISK OF DEPENDANCE/DEVELOPMENT OF ADDICTION, MOOD DISTURBANCE AND DEPRESSION, OSTEOPOROSIS, HORMONAL AND LABIDAL CHANGES, RESPIRATORY DEPRESSION AND . PATIENT IS ADVISED NOT TO DRIVE OR DRINK ALCOHOL WHILE ON THESE MEDICATIONS. PROCEDURE CODES FA211 ESTABILISHED [facility]IENT [facility] CHARGE DISPOSITION & COMMUNICATION FOLLOW UP 2 MONTHS ELECTRONICALLY SIGNED BY STEPHAN DRAKE ON 04/22/2018 AT 02:27 PM EST DISCLAIMER : THIS IS A VISIT SUMMARY EXTRACTED FROM THE [employer] CHART. IT IS NOT A COPY OF THE [employer] PROGRESS NOTE. JUSTUS
== END ==
LOC: M PAIN 15:00
PROVIDERS: ATTEND Nurse Practitioner Family
DX: M47.817 Spondylosis without myelopathy or radiculopathy, lumbosacral region (principal); M51.27 Other intervertebral disc displacement, lumbosacral region; E11.9 Type 2 diabetes mellitus without complications; I10 Essential (primary) hypertension; E78.00 Pure hypercholesterolemia, unspecified; K21.9 Gastro-esophageal reflux disease without esophagitis; F41.9 Anxiety disorder, unspecified; F17.210 Nicotine dependence, cigarettes, uncomplicated; E66.01 Morbid (severe) obesity due to excess calories; Z68.44 Body mass index [BMI] 60.0-69.9, adult; Z79.84 Long term (current) use of oral hypoglycemic drugs; Z79.891 Long term (current) use of opiate analgesic; Z79.899 Other long term (current) drug therapy; Z88.2 Allergy status to sulfonamides; Z88.6 Allergy status to analgesic agent; Z98.84 Bariatric surgery status

== ENCOUNTER 2018-04-09 13:10 | Emergency (ER) | payer OTHER ==
[~2018-04-09] VITALS: Ht 157.5 cm; Wt 140.4 kg
[~2018-04-09 13:10] MED LIST changes: -AMOX/K PO; +GABA600T PO; -GABA600T4 PO; -LOSA25TA14 PO; +LOSA25TA33 PO; -MORP-38 PO
[2018-04-09 13:11] VITALS: BP 124/89
[2018-04-09] MEDS ORDERED: MORP-38 PO (13:29)
[2018-04-09] MEDS ORDERED: AMOX/K PO (13:29)
== END 2018-04-09 13:47 | disposition home or self-care (01) ==
LOC: M ED 13:10
DX: L73.9 Follicular disorder, unspecified (principal); I10 Essential (primary) hypertension; G43.909 Migraine, unspecified, not intractable, without status migrainosus; E78.00 Pure hypercholesterolemia, unspecified; K21.9 Gastro-esophageal reflux disease without esophagitis; K57.32 Diverticulitis of large intestine without perforation or abscess without bleeding; G47.30 Sleep apnea, unspecified; F41.9 Anxiety disorder, unspecified; F32.9 Major depressive disorder, single episode, unspecified; Z98.84 Bariatric surgery status; Z72.0 Tobacco use; Z79.899 Other long term (current) drug therapy; Z88.6 Allergy status to analgesic agent; Z88.2 Allergy status to sulfonamides

== ENCOUNTER → 2018-04-13 | Outpatient (CLI) | payer OTHER ==
[~2018-04-13] MED LIST changes: +AMOX/K PO; -GABA600T PO; +GABA600T4 PO; +LOSA25TA14 PO; -LOSA25TA33 PO; +MORP-38 PO
[2018-04-13 18:28] LABS: ALBUMIN 3.1 GM/DL (3.2-5.2); ALT/SGPT 17 U/L (12-78); BILIRUBIN,TOTAL 0.3 MG/DL (0.2-1.0); BLOOD UREA NITROGEN 4 MG/DL (7-18); CALCIUM LEVEL 8.6 MG/DL (8.5-10.1); CARBON DIOXIDE LEVEL 24 MEQ/L (21-32); CHLORIDE LEVEL 109 MEQ/L (98-107); CREATININE FOR GFR 0.83 MG/DL (0.55-1.30); FERRITIN 51 NG/ML (8-252); GLOMERULAR FILTRATION RATE > 60.0 (>58); GLUCOSE, FASTING 76 MG/DL (70-100); IRON (FE) 45 UG/DL (50-170); MAGNESIUM LEVEL 1.7 MG/DL (1.8-2.4); PERCENT SATURATION 19.9 % (13.2-45.0); POTASSIUM SERUM 3.7 MEQ/L (3.5-5.1); SODIUM LEVEL 142 MEQ/L (136-145); TOTAL IRON BINDING CAPACITY 226 UG/DL (250-450); TOTAL PROTEIN 7.2 GM/DL (6.4-8.2)
[2018-04-13 18:36] LABS: TOTAL 25(OH) VITAMIN D 46.9 NG/ML (30.0-100.0); VITAMIN B12 LEVEL 545 PG/ML (247-911)
[2018-04-13 18:37] LABS: HEMATOCRIT 39.8 % (36.0-47.0); HEMOGLOBIN 13.1 g/dl (12.0-15.5); MEAN CORPUSCULAR HEMOGLOBIN 30.5 pg (27.0-33.0); MEAN CORPUSCULAR HGB CONC 32.9 g/dl (32.0-36.5); MEAN CORPUSCULAR VOLUME 92.6 fl (80.0-96.0); PLATELET COUNT, AUTOMATED 351 10^3/uL (150-450)
[2018-04-13 18:45] LABS: WHITE BLOOD COUNT 14.3 10^3/uL (4.0-10.0)
[2018-04-13 18:46] LABS: HEMATOCRIT 39.8 % (36.0-47.0)
[2018-04-13 19:59] LABS: BASOPHILS 1 % (0-4); EOSINOPHILS 6 % (0-5); LYMPHOCYTES 46 % (16-52); MONOCYTES 5 % (0-8); NEUTROPHILS 42 % (35-75)
[2018-04-13 20:00] LABS: PLATELET CLUMPS SMALL AMT; PLATELET ESTIMATE NORMAL (NORMAL)
== END ==
LOC: M CLY 13:10
PROVIDERS: ATTEND Physician Assistant Surgical
DX: K91.2 Postsurgical malabsorption, not elsewhere classified (principal); Z98.84 Bariatric surgery status; E55.9 Vitamin D deficiency, unspecified

== ENCOUNTER → 2018-04-13 | Outpatient (CLI) | payer OTHER | LOC: M CLY 13:18 | PROVIDERS: ATTEND Psychiatry & Neurology Neurology | DX: Z53.9 Procedure and treatment not carried out, unspecified reason (principal) ==

== ENCOUNTER → 2018-04-18 | Outpatient (RCR) | payer OTHER ==
[~2018-04-18] MED LIST changes: +GABA600T PO; -GABA600T4 PO; -LOSA25TA14 PO; +LOSA25TA33 PO
== END ==
LOC: M PT 03-22 14:39
PROVIDERS: ATTEND Physician Assistant
DX: M17.11 Unilateral primary osteoarthritis, right knee (principal); I89.0 Lymphedema, not elsewhere classified

== ENCOUNTER → 2018-04-21 | Outpatient (CLI) | payer OTHER ==
[~2018-04-21] MED LIST changes: -GABA600T PO; +GABA600T4 PO; +LOSA25TA14 PO; -LOSA25TA33 PO
--- NOTE | 2018-05-12 00:10 | ECWPNPC ---
PATIENT NAME: STELLA TAVERAS : 1975 GENDER: FEMALE VISIT DATE: 04/21/2018 DISCHARGE DATE: 04/21/18 1242 VISIT LOCKED DATE TIME: PHYSICIAN: PATRICIA MCNAMARA RESOURCE: PATRICIA MCNAMARA REASON FOR APPOINTMENT 1. INCREASED PAIN HISTORY OF PRESENT ILLNESS HISTORY OF PRESENT ILLNESS: HERE FOR F/U OF PERSISTENT LOW BACK PAIN R>L.HAS TRIALED LESI AND RIGHT SIJ RECENTLY WITHOUT IMPROVEMENT.HAD RIGHT L3/4-L4/5 RF IN OCTOBER AND WAS DOING WELL UNTIL A FEW MONTHS AGO.FINDING IT DIFFICULT TO TOLERATE ADL'S.DISCUSSED TREATMENT OPTIONS.HAS BEEN TAKING MORE PAIN MEDICATION THAN IS PRESCRIBED DUE TO SEVERE PAIN AND WE HAD A DISCUSSION ABOUT THAT TODAY.RATING PAIN VAS 10/10. PAIN THE PATIENT DESCRIBES THE PAIN... FALL RISK SCREENING: SCREENING :NO FALLS IN THE PAST YEAR CURRENT MEDICATIONS TAKING ABILIFY 5 MG TABLET 1 TABLET ORALLY ONCE A DAY TAKING CETIRIZINE HCL 10 MG TABLET ORALLY ONCE A DAY TAKING [place]ARTAN POTASSIUM 25 MG TABLET ORALLY DAILY TAKING MONTELUKAST SODIUM 10 MG TABLET 1 TABLET ORALLY ONCE A DAY TAKING DITROPAN XL 10 MG TABLET EXTENDED RELEASE 24 HOUR 1 TABLET ORALLY ONCE A DAY TAKING OMEPRAZOLE 40 MG CAPSULE DELAYED RELEASE 1 CAPSULE ORALLY BID TAKING VITAMIN B12 500 TABLET 500 MCG ORALLY DAILY TAKING MULTIVITAMIN 1 TABLET CHEWABLE 1 TAB(S) ORALLY DAILY TAKING CALCIUM CITRATE + 630 MG TABLET 2 TABLET WITH MEALS ORALLY TWICE A DAY TAKING LASIX 40 MG TABLET ORALLY BID TAKING METFORMIN HCL 1000 MG TABLET 1 TABLET WITH MEALS ORALLY TWICE A DAY, NOTES: 02/28/18 TAKING WELLBUTRIN 100 MG TABLET 1 TABLET ORALLY TWICE A DAY TAKING IRON 325 MGS 1 TAB ORAL DAILY TAKING CYMBALTA 90 MG CAPSULE DELAYED RELEASE PARTICLES 1 CAPSULE ORALLY 30MG CAP AND 60 MG CAP DAILY TAKING VITAMIN D 1000 UNIT CAPSULE CAPSULE ORALLY ONCE A DAY TAKING COLACE 100 MG CAPSULE 1 CAPSULE NEEDED ORALLY 3X/DAY TAKING FLONASE 50 MCG/ACT SUSPENSION 1 SPRAY IN EACH NOSTRIL NASALLY ONCE A DAY NEEDED TAKING SUMATRIPTAN SUCCINATE 50 MG TABLET 1 TABLET NEEDED ORALLY DIRECTED TAKING GABAPENTIN 800 MG TABLET 1 CAPSULE ORALLY FOR PAIN TID TAKING AMITRIPTYLINE HCL 25 MG TABLET 1 TABLET ORALLY ONCE A DAY TAKING LYRICA 200 MG CAPSULE 1 CAPSULE ORALLY Q8H TID TAKING CYCLOBENZAPRINE HCL 10 MG TABLET DIRECTED ORALLY Q8H PRN PAIN #30 TAB SHOULD LAST 30 DAYS TAKING MS CONTIN 15 MG TABLET EXTENDED RELEASE 1 TABLET ORALLY Q12H BID MDD2 TAKING OXYCODONE HCL 5 MG TABLET 1 TABLET NEEDED ORALLY Q8H PRN MDD3 #50 TAB SHOULD LAST 30 DAYS MEDICATION LIST REVIEWED AND RECONCILED WITH THE PATIENT PAST MEDICAL HISTORY DIABETES HYPERTENSION HYPERCHOLESTEREMIA OBESITY GERD (GASTROESOPHAGEAL REFLUX DISEASE) GASTRIC BYPASS ANXIETY BACK PAIN RIGHT HIP AND KNEE PAIN ALLERGIES SULFA (FOR ALLERGY USE ONLY): RASH: ALLERGY NSAIDS: GASTRIC BYPASS: CONTRAINDICATION SURGICAL HISTORY GASTRIC BYPASS 06/2015 BILAT CARPAL TUNNEL C SECTION CHOLECYSTECTOMY TONSILLECTOMY & ADENOIDECTOMY D&C 10/2017 FAMILY HISTORY FATHER: , DIAGNOSED WITH HEART DISEASE MOTHER: ALIVE, DIAGNOSED WITH DIABETES, HYPERTENSION 2 BROTHER(S) . 1 SON(S) - HEALTHY. 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 TO GET PATCHES THROUGH HER PRIMARY COUNSELED THE PATIENT ON SMOKING CESSATION, EDUCATION [id number]/03/2019 HOW MANY CIGARETTES A DAY DO YOU SMOKE?11-20 HOW SOON AFTER YOU WAKE UP DO YOU SMOKE YOUR FIRST CIGARETTE?WITHIN 5 MIN HOW OFTEN DO YOU SMOKE CIGARETTES?EVERY DAY PATIENT COUNSELED ON THE DANGERS OF TOBACCO USE AND URGED TO QUIT:04/21/2018 SMOKING CESSATION INFORMATION GIVEN03/01/201810/19 PAMPHLET GIVEN ALCOHOL SCREENING DID YOU HAVE A DRINK CONTAINING ALCOHOL IN THE PAST YEAR?NO POINTS0 INTERPRETATIONNEGATIVE RECREATIONAL DRUG USE DRUG USE?NO CAFFEINE CAFFEINE USE?YES HOW OFTEN AND HOW MUCH? 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 DIET: REGULAR. EXERCISE: WALKS. MARITAL STATUS: SINGLE. OTHERS AT HOME: CHILD, OTHER NON-RELATIVE. NEW PATIENT PAIN DIARY TODAY'S VISITNOTES PAIN CLINIC PFS, CLERGY, PUBLIC HEALTH REFERRALS PFS REFERRAL NEEDED?NO CLERGY REFERRAL NEEDED?NO PUBLIC HEALTH REFERRAL NEEDED?NO WAS THE PROVIDER NOTIFIED OF ANY PERTINENT INFO? N/A HAS THE PATIENT BEEN EDUCATED REGARDING HIS/HER PLAN OF CARE?YES HAS THE PATIENT BEEN EDUCATED REGARDING PAIN, THE RISK FOR PAIN, THE IMPORTANCE OF EFFECTIVE PAIN MANAGEMENT, AND THE PAIN ASSESSMENT PROCESS?YES ADVANCE DIRECTIVE ADVANCE DIRECTIVE DISCUSSED WITH PATIENT:YES HCP - ARNULFO TAVERAS [phone] REVIEWED WITH PATIENT 01/11/18 0940 JS02/07/18 0905 REVIEWED WITH PT. AD03/31 18 1505 REVIEWED WITH PT. AD04/21/18 1210 REVIEWED WITH PT LAS. HOSPITALIZATION/MAJOR DIAGNOSTIC PROCEDURE SURGERIES REVIEW OF SYSTEMS REVIEWED BY: PROVIDER: PATRICIA ROTHMAN . CONSTITUTIONAL: ANY CHANGE IN YOUR MEDICAL CONDITION? NO . CHILLS NO . FEVER NO . INFECTION: DO YOU HAVE NEW INFECTIONS? NO . DO YOU HAVE HISTORY OF MRSA? NO . MUSCULOSKELETAL: ANY NEW PATTERNS OF PAIN OR NUMBNESS? NO . GASTROENTEROLOGY: ANY NEW CHANGE IN BOWEL CONTROL? NO . GENITOURINARY: ANY NEW CHANGE IN BLADDER CONTROL? NO . IS THERE A CHANCE YOU COULD BE ? NO . HEMATOLOGY/LYMPH: DO YOU TAKE ANY BLOOD THINNERS? (FOR EXAMPLE- COUMADIN, PLAVIX, AGGRENOX, PLATEL, PRADAXA, OR XARELTO) NO . WHEN WAS YOUR LAST DOSE? DATE: TIME: . NEUROLOGY: HAVE YOU FALLEN IN THE PAST 6 MONTHS? NO . ANY NEW EXTREMITY NUMBNESS OR WEAKNESS? NO . CARDIOLOGY: DO YOU HAVE A PACEMAKER OR DEFIBRILLATOR? NO . RESPIRATORY: HAVE YOU BEEN SICK IN THE PAST WEEK? NO . FEVER NO . FLU LIKE SYMPTOMS? NO . COUGH NO . INTEGUMENTARY: DO YOU HAVE ANY RASHES OR OPEN SORES? NO . ALLERGIC/IMMUNO: ARE YOU ALLERGIC TO SHELLFISH OR IV DYE? NO . ANY NEW ALLERGIES? NO . PSYCHIATRIC: DO YOU HAVE THOUGHTS OF HURTING YOURSELF OR SOMEONE ELSE? NO . ARE YOU ABUSED, NEGLECTED, OR IN AN UNSAFE ENVIRONMENT? NO . ENDOCRINOLOGY: ARE YOU DIABETIC? NO . OTHER: DO YOU NEED ANY PRESCRIPTIONS? NO . IF YES, PLEASE LIST: ____ . ANY NEW PROBLEMS WITH YOUR MEDICATIONS? NO . WHEN DID YOU LAST EAT? ____ . WHEN DID YOU LAST DRINK? ____ . WHAT DID YOU LAST DRINK? ____ . NAME OF PERSON DRIVING YOU HOME? ____ . DO YOU HAVE ANY OTHER QUESTIONS OR CONCERNS NO . VITAL SIGNS WT 318.6 LBS, HT 60.5 IN, BMI 61.19 INDEX, BP 118/74 MM HG, HR 87 /MIN, RR 18 /MIN, TEMP 97.6 F, OXYGEN SAT % 96%, SAFE IN ENV? (Y/N) YES, REVIEWED BY: JIAN. EXAMINATION GENERAL EXAMINATION: LUNGS:LUNG SOUNDS ARE CLEAR . HEART:HEART RATE REGULAR . MUSCULOSKELETAL:*, MUSCLE STRENGTH TESTING:WEAK OVER RIGHT LEG. PALPATION: POSITIVE FOR PAIN OVER L/S SPINE. POSITIVE FOR PAIN OVER L/S PARSPINALS.POSITIVE SLE RIGHT LEG AT <30 DEGREES . LUMBAR SACRAL SPINESPECIFIC RIGHT FACET L3/4-L4/5 PAIN WITH PALPATION. DIAGNOSTIC:MRI L/S [id number]-REVIEWED. MRI [id number]-REVIEWED . ASSESSMENTS INTERVERTEBRAL DISC DISORDER WITH RADICULOPATHY OF LUMBAR REGION - M51.16 (PRIMARY) TREATMENT INTERVERTEBRAL DISC DISORDER WITH RADICULOPATHY OF LUMBAR REGION NOTES: RIGHT L3/4-L4/5 DIAGNOSTIC BLOCK. PROCEDURE CODES FA211 ESTABILISHED PATIENT [facility] FACILITY CHARGE DISPOSITION & COMMUNICATION FOLLOW UP POST (REASON: RIGHT L3/4-L4/5 DIAGNOSTIC BLOCK) ELECTRONICALLY SIGNED BY STEPHAN DRAKE ON 05/11/2018 AT 11:00 AM EST DISCLAIMER : THIS IS A VISIT SUMMARY EXTRACTED FROM THE [employer] CHART. IT IS NOT A COPY OF THE [employer] PROGRESS NOTE. JUSTUS
== END ==
LOC: M PAIN 11:30
PROVIDERS: ATTEND Nurse Practitioner Family
DX: M51.16 Intervertebral disc disorders with radiculopathy, lumbar region (principal); E11.9 Type 2 diabetes mellitus without complications; I10 Essential (primary) hypertension; E78.00 Pure hypercholesterolemia, unspecified; K21.9 Gastro-esophageal reflux disease without esophagitis; F41.9 Anxiety disorder, unspecified; F17.210 Nicotine dependence, cigarettes, uncomplicated; E66.01 Morbid (severe) obesity due to excess calories; Z68.44 Body mass index [BMI] 60.0-69.9, adult; Z79.84 Long term (current) use of oral hypoglycemic drugs; Z79.899 Other long term (current) drug therapy; Z88.2 Allergy status to sulfonamides; Z88.6 Allergy status to analgesic agent; Z98.84 Bariatric surgery status

== ENCOUNTER → 2018-05-04 | Outpatient (CLI) | payer OTHER ==
[2018-05-04 14:39] LABS: FERRITIN 35 NG/ML (8-252); RHEUMATOID FACTOR QUANT < 10.0 IU/ML (<15.0)
[2018-05-04 15:01] LABS: VITAMIN B12 LEVEL 395 PG/ML (247-911)
[2018-05-07 09:10] LABS: ANTINUCLEAR ANTIBODIES DIRECT Negative (Negative); CERULOPLASMIN 24.2 mg/dL (19.0-39.0); COPPER PLASMA 78 ug/dL (72-166); LEAD BLOOD ADULT <1 ug/dL (0-4); MERCURY LEVEL None Detected ug/L (0.0-14.9); VITAMIN E(GAMMA TOCOPHEROL) 1.1 mg/L (0.5-5.5)
== END ==
LOC: M LAB 13:11
PROVIDERS: ATTEND Psychiatry & Neurology Neurology
DX: R25.1 Tremor, unspecified (principal); M62.838 Other muscle spasm

== ENCOUNTER → 2018-05-06 | Outpatient (CLI) | payer OTHER ==
[~2018-05-06] MED LIST changes: +BUPIVACAINE HCL 0.25% 30 ML VIAL As Ordered ONE; +ISOVUE-M 300 61% 15ML VIAL (Q9967) As Ordered ONE; +LIDOCAINE 1% SDV INJ 30 ML VIAL As Ordered ONE
--- NOTE | 2018-05-06 15:38 | REP ---
Partial lumbar spine series: Three views . History: Injection procedure for pain. 20 seconds of fluoroscopy time is reported. Findings: A sequence of three fluoroscopically obtained last image hold procedural spot radiographs of the lumbar spine document needle position and contrast injection associated with injection procedure. Electronically Signed by Biju Bui MD 05/06/2018 03:30 P
--- NOTE | 2018-05-23 00:20 | ECWPNPC ---
PATIENT NAME: STELLA TAVERAS : 1975 GENDER: FEMALE VISIT DATE: 05/06/2018 DISCHARGE DATE: 05/06/18 1113 VISIT LOCKED DATE TIME: PHYSICIAN: AMELIA LAI MD RESOURCE: AMELIA LAI MD REASON FOR APPOINTMENT 1. RIGHT L5-S1 DIAGNOSTIC BLOCK HISTORY OF PRESENT ILLNESS HISTORY OF PRESENT ILLNESS: PAIN THE PATIENT DESCRIBES THE PAIN... FALL RISK SCREENING: SCREENING :NO FALLS IN THE PAST YEAR CURRENT MEDICATIONS TAKING ABILIFY 5 MG TABLET 1 TABLET ORALLY ONCE A DAY, NOTES: 05-05-182199 TAKING CETIRIZINE HCL 10 MG TABLET ORALLY ONCE A DAY, NOTES: 2199 TAKING LOSARTAN POTASSIUM 25 MG TABLET ORALLY DAILY, NOTES: 05-06-18699 TAKING MONTELUKAST SODIUM 10 MG TABLET 1 TABLET ORALLY ONCE A DAY, NOTES: 05-06-18799 TAKING DITROPAN XL 10 MG TABLET EXTENDED RELEASE 24 HOUR 1 TABLET ORALLY ONCE A DAY, NOTES: 05-06-18599 TAKING OMEPRAZOLE 40 MG CAPSULE DELAYED RELEASE 1 CAPSULE ORALLY BID, NOTES: 05-06-18699 TAKING VITAMIN B12 500 TABLET 500 MCG ORALLY DAILY, NOTES: 05-06-18699 TAKING MULTIVITAMIN 1 TABLET CHEWABLE 1 TAB(S) ORALLY DAILY, NOTES: 05-06-18699 TAKING CALCIUM CITRATE + 630 MG TABLET 2 TABLET WITH MEALS ORALLY TWICE A DAY, NOTES: 05-05-181699 TAKING LASIX 40 MG TABLET ORALLY BID, NOTES: 05-05-182099 TAKING METFORMIN HCL 1000 MG TABLET 1 TABLET WITH MEALS ORALLY TWICE A DAY, NOTES: 05-05-182099 TAKING WELLBUTRIN 100 MG TABLET 1 TABLET ORALLY TWICE A DAY, NOTES: 05-06-18699 TAKING IRON 325 MGS 1 TAB ORAL DAILY, NOTES: 05-06-18599 TAKING CYMBALTA 90 MG CAPSULE DELAYED RELEASE PARTICLES 1 CAPSULE ORALLY 30MG CAP AND 60 MG CAP DAILY, NOTES: 05-05-182099 TAKING VITAMIN D 1000 UNIT CAPSULE CAPSULE ORALLY ONCE A DAY, NOTES: `05-06-18599 TAKING COLACE 100 MG CAPSULE 1 CAPSULE NEEDED ORALLY 3X/DAY, NOTES: 05-06-18699 TAKING FLONASE 50 MCG/ACT SUSPENSION 1 SPRAY IN EACH NOSTRIL NASALLY ONCE A DAY NEEDED, NOTES: NOTLATELY TAKING SUMATRIPTAN SUCCINATE 50 MG TABLET 1 TABLET NEEDED ORALLY DIRECTED, NOTES: 05-05-182099 TAKING GABAPENTIN 800 MG TABLET 1 CAPSULE ORALLY FOR PAIN TID, NOTES: 05-06-18699 TAKING AMITRIPTYLINE HCL 25 MG TABLET 1 TABLET ORALLY ONCE A DAY, NOTES: 05-05-182099 TAKING LYRICA 200 MG CAPSULE 1 CAPSULE ORALLY Q8H TID, NOTES: 05-06-18699 TAKING CYCLOBENZAPRINE HCL 10 MG TABLET DIRECTED ORALLY Q8H PRN PAIN #30 TAB SHOULD LAST 30 DAYS, NOTES: 05-05-18799 TAKING OXYCODONE HCL 5 MG TABLET 1 TABLET NEEDED ORALLY Q8H PRN MDD3 #50 TAB SHOULD LAST 30 DAYS, NOTES: 2099 UNKNOWN MS CONTIN 15 MG TABLET EXTENDED RELEASE 1 TABLET ORALLY Q12H BID MDD2, NOTES: 05-05-172099 MEDICATION LIST REVIEWED AND RECONCILED WITH THE PATIENT PAST MEDICAL HISTORY DIABETES HYPERTENSION HYPERCHOLESTEREMIA OBESITY GERD (GASTROESOPHAGEAL REFLUX DISEASE) GASTRIC BYPASS ANXIETY BACK PAIN RIGHT HIP AND KNEE PAIN ALLERGIES SULFA (FOR ALLERGY USE ONLY): RASH: ALLERGY NSAIDS: GASTRIC BYPASS: CONTRAINDICATION SURGICAL HISTORY GASTRIC BYPASS 06/2015 BILAT CARPAL TUNNEL C SECTION CHOLECYSTECTOMY TONSILLECTOMY & ADENOIDECTOMY D&C 10/2017 FAMILY HISTORY FATHER: , DIAGNOSED WITH HEART DISEASE MOTHER: ALIVE, DIAGNOSED WITH DIABETES, HYPERTENSION 2 BROTHER(S) . 1 SON(S) - HEALTHY. 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 HOSPITALIZATION/MAJOR DIAGNOSTIC PROCEDURE SURGERIES REVIEW OF SYSTEMS REVIEWED BY: PROVIDER: . CONSTITUTIONAL: ANY CHANGE IN YOUR MEDICAL CONDITION? NO . CHILLS NO . FEVER NO . INFECTION: DO YOU HAVE NEW INFECTIONS? NO . DO YOU HAVE HISTORY OF MRSA? NO . MUSCULOSKELETAL: ANY NEW PATTERNS OF PAIN OR NUMBNESS? NO . GASTROENTEROLOGY: ANY NEW CHANGE IN BOWEL CONTROL? NO . GENITOURINARY: ANY NEW CHANGE IN BLADDER CONTROL? NO . IS THERE A CHANCE YOU COULD BE ? NO . HEMATOLOGY/LYMPH: DO YOU TAKE ANY BLOOD THINNERS? (FOR EXAMPLE- COUMADIN, PLAVIX, AGGRENOX, PLATEL, PRADAXA, OR XARELTO) NO . WHEN WAS YOUR LAST DOSE? DATE: TIME: . NEUROLOGY: HAVE YOU FALLEN IN THE PAST 12 MONTHS? YES FELL LAST WEEK AT HOME NO URGENT CARE VISITI . ANY NEW EXTREMITY NUMBNESS OR WEAKNESS? NO . CARDIOLOGY: DO YOU HAVE A PACEMAKER OR DEFIBRILLATOR? NO . RESPIRATORY: HAVE YOU BEEN SICK IN THE PAST WEEK? NO . FEVER NO . FLU LIKE SYMPTOMS? NO . COUGH NO . INTEGUMENTARY: DO YOU HAVE ANY RASHES OR OPEN SORES? NO . ALLERGIC/IMMUNO: ARE YOU ALLERGIC TO IV DYE? NO . ANY NEW ALLERGIES? NO . PSYCHIATRIC: DO YOU HAVE THOUGHTS OF HURTING YOURSELF OR SOMEONE ELSE? NO . ARE YOU ABUSED, NEGLECTED, OR IN AN UNSAFE ENVIRONMENT? NO . ENDOCRINOLOGY: ARE YOU DIABETIC? NO . OTHER: DO YOU NEED ANY PRESCRIPTIONS? NO . IF YES, PLEASE LIST: ____ . ANY NEW PROBLEMS WITH YOUR MEDICATIONS? NO . WHEN DID YOU LAST EAT? ____ . WHEN DID YOU LAST DRINK? ____ . WHAT DID YOU LAST DRINK? ____ . NAME OF PERSON DRIVING YOU HOME? ____ . DO YOU HAVE ANY OTHER QUESTIONS OR CONCERNS NO . VITAL SIGNS WT 314 LBS, HT 60.5 IN, BMI 60.31 INDEX, BP 129/85 MM HG, HR 101 /MIN, RR 18 /MIN, TEMP 97.6 F, OXYGEN SAT % 98%, NA INITIALS SC 09:04, REVIEWED BY: KG. ASSESSMENTS SPONDYLOSIS OF LUMBOSACRAL REGION WITHOUT MYELOPATHY OR RADICULOPATHY - M47.817 (PRIMARY) PROCEDURES PN LUMBAR FACET BLOCK DIAGNOSTIC PRE PROCEDURE DIAGNOSIS LUMBOSACRAL SPONDYLOSIS POST PROCEDURE DIAGNOSIS LUMBOSACRAL SPONDYLOSIS PROCEDURE RIGHT L5-S1 FACET BLOCK DIAGNOSTIC NUMBER [address] 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 I EVALUATED THE PATIENT AND REVIEWED THE CHART. I WENT OVER THE RISKS, ALTERNATIVES, AND BENEFITS ASSOCIATED WITH THIS PROCEDURE. THE PATIENT WOULD LIKE TO PROCEED AND GAVE CONSENT TO PERFORM THE PROCEDURE. AGREED WITH THE PATIENT WE ARE DOING THIS PROCEDURE TO DETERMINE IF THE PATIENT IS A CANDIDATE FOR A RADIOFREQUENCY ABLATION OF THE FACETS JOINTS. THE PATIENT DENIES UNEXPLAINABLE WEIGHT LOSS, FEVER, CHILLS, OR NEW CHANGES IN URINARY OR BOWEL CONTROL DESCRIPTION OF PROCEDURE THE PATIENT WAS BROUGHT TO THE PROCEDURE ROOM AND PLACED IN THE PRONE POSITION. THE LUMBOSACRAL AREA WAS CLEANED WITH CHLORAPREP SOLUTION AND DRAPED ASEPTICALLY. THE PROCEDURE WAS DONE UNDER STERILE CONDITIONS. I CHECKED LATERALITY AND THE LEVEL WHERE THE PROCEDURE WAS GOING TO BE PERFORMED WITH THE PATIENT AND THE SUPPORTING STAFF AT THE MOMENT OF THE TIME OUT IN THE PROCEDURE ROOM. UNDER FLUOROSCOPIC GUIDANCE, TARGETS WERE SELECTED AT THE INTERSECTION OF THE RIGHT TRANSVERSE PROCESS OF L5 AND ALA OF S1 WITH ITS RESPECTIVE SUPERIOR ARTICULAR PROCESS. LIDOCAINE WAS USED TO NUMB THE SKIN AND THE SUBCUTANEOUS TISSUE BELOW IT. SPINAL NEEDLE, 22-GAUGE WAS ADVANCED UNDER FLUOROSCOPIC GUIDANCE AND FOLLOWING PATIENT FEEDBACK UNTIL THE TARGETS WERE REACHED. POSITION OF THE NEEDLES WAS VERIFIED WITH AP AND LATERAL VIEWS. AFTER PROPER POSITION OF THE NEEDLES WAS ACHIEVED, ISOVUE-M DYE 30% 0.1 ML WAS INJECTED AT EACH SITE SHOWING ADEQUATE SPREAD OF THE DYE. THEN A SOLUTION OF 0.4 ML OF BUPIVACAINE 0.25% WAS INJECTED AT EACH SITE. THERE WAS NO EVIDENCE OF BLOOD, PARESTHESIA OR CEREBROSPINAL FLUID DURING THE PROCEDURE. THE PATIENT WAS SENT TO THE RECOVERY ROOM. THE PATIENT WAS MOVING THE EXTREMITIES AND DOING WELL. THERE WAS NO COMPLICATION DURING THE PROCEDURE. FLUOROSCOPY TIME WAS 20 SECONDS POST PROCEDURE NOTE THE PATIENT WILL DOCUMENT HIS PAIN LEVEL AND RESPONSE TO THIS PROCEDURE EVERY 30 MINUTES. THE PATIENT WILL BE SEEN IN A FOLLOW UP IN THE NEXT FEW WEEKS. FURTHER DETERMINATION FOR HIS CASE WILL BE DONE AT THE NEXT VISIT. INSTRUCTIONS WERE GIVEN, QUESTIONS WERE ANSWERED, AND THE PATIENT EXPRESSED UNDERSTANDING AND AGREED WITH THE PLAN. I, TIFFANY HIDALGO, DOCUMENTED THE ABOVE INFORMATION ACTING A SCRIBE FOR DR. LAI. I HAVE REVIEWED THE ABOVE DOCUMENT, WRITTEN BY TIFFANY YANES AND I VERIFY THAT IT IS ACCURATE. PROCEDURE CODES 6045F RADXPS IN END [id number] PXD [id number] INJ PARAVERT F JNT L/S 1 LEV, MODIFIERS: RT DISPOSITION & COMMUNICATION FOLLOW UP 3 WEEKS ELECTRONICALLY SIGNED BY AMELIA LAI MD, MD ON 05/22/2018 AT 05:57 PM EST DISCLAIMER : THIS IS A VISIT SUMMARY EXTRACTED FROM THE [facility] CHART. IT IS NOT A COPY OF THE [facility] PROGRESS NOTE. MTDD
== END ==
LOC: M PAIN 09:15
PROVIDERS: ATTEND Anesthesiology
DX: G89.29 Other chronic pain (principal); M47.817 Spondylosis without myelopathy or radiculopathy, lumbosacral region; E11.9 Type 2 diabetes mellitus without complications; I10 Essential (primary) hypertension; E78.00 Pure hypercholesterolemia, unspecified; K21.9 Gastro-esophageal reflux disease without esophagitis; F41.9 Anxiety disorder, unspecified; E66.01 Morbid (severe) obesity due to excess calories; Z68.44 Body mass index [BMI] 60.0-69.9, adult; Z79.84 Long term (current) use of oral hypoglycemic drugs; Z79.899 Other long term (current) drug therapy; Z88.2 Allergy status to sulfonamides; Z88.6 Allergy status to analgesic agent; Z98.84 Bariatric surgery status
CPT/HCPCS: 64493; Q9967

== ENCOUNTER → 2018-05-09 | Outpatient (REF) | payer OTHER ==
[~2018-05-09] MED LIST changes: -BUPIVACAINE HCL 0.25% 30 ML VIAL As Ordered ONE; -ISOVUE-M 300 61% 15ML VIAL (Q9967) As Ordered ONE; -LIDOCAINE 1% SDV INJ 30 ML VIAL As Ordered ONE
== END ==
LOC: M LAB REF 13:00
PROVIDERS: ATTEND Psychiatry & Neurology Neurology
DX: R25.1 Tremor, unspecified (principal); M62.838 Other muscle spasm

== ENCOUNTER 2018-05-16 11:47 | Outpatient (RCR) | payer OTHER | END 2018-05-19 | LOC: M PT 11:47 | PROVIDERS: ATTEND Physician Assistant | DX: Z51.89 Encounter for other specified aftercare (principal); M17.11 Unilateral primary osteoarthritis, right knee ==

== ENCOUNTER → 2018-06-06 | Outpatient (REF) | payer OTHER ==
[2018-06-06 21:37] LABS: APPEARANCE, URINE CLOUDY (CLEAR); BACTERIA, URINE AUTO 1+ (NEGATIVE); BILIRUBIN, URINE AUTO NEGATIVE (NEGATIVE); BLOOD, URINE BLOOD 2+ (NEGATIVE); COLOR, URINE YELLOW (YELLOW); GLUCOSE, URINE (UA) AUTO NEGATIVE (NEGATIVE); KETONE, URINE AUTO NEGATIVE (NEGATIVE); LEUKOCYTE ESTERASE, URINE AUTO 3+ (NEGATIVE); NITRITE, URINE AUTO NEGATIVE (NEGATIVE); PROTEIN, URINE AUTO 2+ mg/dL (NEGATIVE); RBC, URINE AUTO 23 /HPF (0-3); SPECIFIC GRAVITY URINE AUTO 1.019 (1.002-1.035); SQUAMOUS EPITHELIAL CELL UR AU 7 /HPF (0-6); UROBILINOGEN, URINE AUTO 0.2 mg/dL (0.0-2.0); WBC, URINE AUTO TNTC /HPF (0-3)
== END ==
LOC: M LAB REF 14:30
PROVIDERS: ATTEND Physician Assistant Medical
DX: N39.0 Urinary tract infection, site not specified (principal)

== ENCOUNTER 2018-06-15 11:39 | Outpatient (RCR) | payer OTHER | END 2018-06-16 | LOC: M PT 11:39 | PROVIDERS: ATTEND Physician Assistant | DX: Z51.89 Encounter for other specified aftercare (principal); M17.11 Unilateral primary osteoarthritis, right knee; I89.0 Lymphedema, not elsewhere classified ==

== ENCOUNTER → 2018-06-15 | Outpatient (CLI) | payer OTHER ==
--- NOTE | 2018-06-30 00:40 | ECWPNPC ---
PATIENT NAME: STELLA TAVERAS : 1975 GENDER: FEMALE VISIT DATE: 06/15/2018 DISCHARGE DATE: 06/15/18917 VISIT LOCKED DATE TIME: PHYSICIAN: PATRICIA MCANMARA RESOURCE: PATRICIA MCNAMARA REASON FOR APPOINTMENT 1. BACK HISTORY OF PRESENT ILLNESS HISTORY OF PRESENT ILLNESS: HERE FOR POST PROCEDURE F/U.HAD DX LUMBAR BLOCK-RIGHT ON 05/06/18.REPORTS NO SHORT TERM IMPROVEMENT.PAIN IS LOCATED ON RIGHT SIDE LOW BACK WITH RADIATION DOWN TO KNEE.RATING PAIN VAS 8/10.REVIEWED MRI L/S SPINE AND DISCUSSED TREATMENT OPTIONS.SHE IS REFUSING SURGICAL CONSULT. PAIN THE PATIENT DESCRIBES THE PAIN... FALL RISK SCREENING: SCREENING : NO FALLS IN THE PAST YEAR. CURRENT MEDICATIONS TAKING ABILIFY 5 MG TABLET 1 TABLET ORALLY ONCE A DAY TAKING CETIRIZINE HCL 10 MG TABLET ORALLY ONCE A DAY TAKING LOSARTAN POTASSIUM 25 MG TABLET ORALLY DAILY TAKING MONTELUKAST SODIUM 10 MG TABLET 1 TABLET ORALLY ONCE A DAY TAKING DITROPAN XL 10 MG TABLET EXTENDED RELEASE 24 HOUR 1 TABLET ORALLY ONCE A DAY TAKING OMEPRAZOLE 40 MG CAPSULE DELAYED RELEASE 1 CAPSULE ORALLY BID TAKING VITAMIN B12 500 TABLET 500 MCG ORALLY DAILY TAKING MULTIVITAMIN 1 TABLET CHEWABLE 1 TAB(S) ORALLY DAILY TAKING CALCIUM CITRATE + 630 MG TABLET 2 TABLET WITH MEALS ORALLY TWICE A DAY TAKING LASIX 40 MG TABLET ORALLY BID TAKING METFORMIN HCL 1000 MG TABLET 1 TABLET WITH MEALS ORALLY TWICE A DAY TAKING WELLBUTRIN 100 MG TABLET 1 TABLET ORALLY TWICE A DAY TAKING IRON 325 MGS 1 TAB ORAL DAILY TAKING CYMBALTA 90 MG CAPSULE DELAYED RELEASE PARTICLES 1 CAPSULE ORALLY 30MG CAP AND 60 MG CAP DAILY TAKING VITAMIN D 1000 UNIT CAPSULE CAPSULE ORALLY ONCE A DAY TAKING COLACE 100 MG CAPSULE 1 CAPSULE NEEDED ORALLY 3X/DAY TAKING FLONASE 50 MCG/ACT SUSPENSION 1 SPRAY IN EACH NOSTRIL NASALLY ONCE A DAY NEEDED TAKING SUMATRIPTAN SUCCINATE 50 MG TABLET 1 TABLET NEEDED ORALLY DIRECTED TAKING GABAPENTIN 800 MG TABLET 1 CAPSULE ORALLY FOR PAIN TID TAKING AMITRIPTYLINE HCL 25 MG TABLET 1 TABLET ORALLY ONCE A DAY TAKING LYRICA 200 MG CAPSULE 1 CAPSULE ORALLY Q8H TID TAKING CYCLOBENZAPRINE HCL 10 MG TABLET DIRECTED ORALLY Q8H PRN PAIN #30 TAB SHOULD LAST 30 DAYS TAKING OXYCODONE HCL 5 MG TABLET 1 TABLET NEEDED ORALLY Q8H PRN MDD3 #50 TAB SHOULD LAST 30 DAYS TAKING MS CONTIN 15 MG TABLET EXTENDED RELEASE 1 TABLET ORALLY Q12H BID MDD2 MEDICATION LIST REVIEWED AND RECONCILED WITH THE PATIENT PAST MEDICAL HISTORY DIABETES HYPERTENSION HYPERCHOLESTEREMIA OBESITY GERD (GASTROESOPHAGEAL REFLUX DISEASE) GASTRIC BYPASS ANXIETY BACK PAIN RIGHT HIP AND KNEE PAIN ALLERGIES SULFA (FOR ALLERGY USE ONLY): RASH: ALLERGY NSAIDS: GASTRIC BYPASS: CONTRAINDICATION SURGICAL HISTORY GASTRIC BYPASS 06/2015 BILAT CARPAL TUNNEL C SECTION CHOLECYSTECTOMY TONSILLECTOMY & ADENOIDECTOMY D&C 10/2017 FAMILY HISTORY FATHER: , DIAGNOSED WITH HEART DISEASE MOTHER: ALIVE, DIAGNOSED WITH DIABETES, HYPERTENSION 2 BROTHER(S) . 1 SON(S) - HEALTHY. 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 TO GET PATCHES THROUGH HER PRIMARY COUNSELED THE PATIENT ON SMOKING CESSATION, EDUCATION [id number]/27/2019 HOW MANY CIGARETTES A DAY DO YOU SMOKE?11-20 HOW SOON AFTER YOU WAKE UP DO YOU SMOKE YOUR FIRST CIGARETTE?WITHIN 5 MIN HOW OFTEN DO YOU SMOKE CIGARETTES?EVERY DAY PATIENT COUNSELED ON THE DANGERS OF TOBACCO USE AND URGED TO QUIT:06/15/2018 SMOKING CESSATION INFORMATION GIVEN03/01/201810/19 PAMPHLET GIVEN ALCOHOL SCREENING DID YOU HAVE A DRINK CONTAINING ALCOHOL IN THE PAST YEAR?NO POINTS0 INTERPRETATIONNEGATIVE RECREATIONAL DRUG USE DRUG USE?NO CAFFEINE CAFFEINE USE?YES HOW OFTEN AND HOW MUCH? 2 BOTTLES [place]/DAY WORSHIP [id number] NONE LANGUAGE LANGUAGES SPOKEN:MALAY EDUCATION LEVEL OF EDUCATION:NOT FINISHED COLLEGE 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, WALKER SHALLOT PACKER NEEDED?NO DOMESTIC VIOLENCE DO YOU FEEL SAFE IN YOUR ENVIRONMENT?YES OCCUPATION: DISABLED. DIET: REGULAR. EXERCISE: WALKS. MARITAL STATUS: SINGLE. OTHERS AT HOME: CHILD, OTHER NON-RELATIVE. NEW PATIENT PAIN DIARY TODAY'S VISITNOTES PAIN CLINIC PFS, CLERGY, PUBLIC HEALTH REFERRALS PFS REFERRAL NEEDED?NO CLERGY REFERRAL NEEDED?NO PUBLIC HEALTH REFERRAL NEEDED?NO WAS THE PROVIDER NOTIFIED OF ANY PERTINENT INFO? N/A HAS THE PATIENT BEEN EDUCATED REGARDING HIS/HER PLAN OF CARE?YES HAS THE PATIENT BEEN EDUCATED REGARDING PAIN, THE RISK FOR PAIN, THE IMPORTANCE OF EFFECTIVE PAIN MANAGEMENT, AND THE PAIN ASSESSMENT PROCESS?YES ADVANCE DIRECTIVE ADVANCE DIRECTIVE DISCUSSED WITH PATIENT:YES HCP - ARNULFO TAVERAS [phone] REVIEWED WITH PATIENT 01/11/18 0940 JS02/07/18 0905 REVIEWED WITH PT. AD03/31 18 1505 REVIEWED WITH PT. AD04/21/18 1210 REVIEWED WITH PT SYLVIAD WITH PATIENT 06/15/18 0844 JS. HOSPITALIZATION/MAJOR DIAGNOSTIC PROCEDURE SURGERIES REVIEW OF SYSTEMS REVIEWED BY: PROVIDER: PATRICIA ROTHMAN . CONSTITUTIONAL: ANY CHANGE IN YOUR MEDICAL CONDITION? NO . CHILLS NO . FEVER NO . INFECTION: DO YOU HAVE NEW INFECTIONS? NO . DO YOU HAVE HISTORY OF MRSA? YES . MUSCULOSKELETAL: ANY NEW PATTERNS OF PAIN OR NUMBNESS? NO . GASTROENTEROLOGY: ANY NEW CHANGE IN BOWEL CONTROL? NO . GENITOURINARY: ANY NEW CHANGE IN BLADDER CONTROL? NO . IS THERE A CHANCE YOU COULD BE ? NO . HEMATOLOGY/LYMPH: DO YOU TAKE ANY BLOOD THINNERS? (FOR EXAMPLE- COUMADIN, PLAVIX, AGGRENOX, PLATEL, PRADAXA, OR XARELTO) NO . WHEN WAS YOUR LAST DOSE? DATE: TIME: . NEUROLOGY: HAVE YOU FALLEN IN THE PAST 12 MONTHS? NO . ANY NEW EXTREMITY NUMBNESS OR WEAKNESS? NO . CARDIOLOGY: DO YOU HAVE A PACEMAKER OR DEFIBRILLATOR? NO . RESPIRATORY: HAVE YOU BEEN SICK IN THE PAST WEEK? NO . FEVER NO . FLU LIKE SYMPTOMS? NO . COUGH NO . INTEGUMENTARY: DO YOU HAVE ANY RASHES OR OPEN SORES? NO . ALLERGIC/IMMUNO: ARE YOU ALLERGIC TO IV DYE? NO . ANY NEW ALLERGIES? NO . PSYCHIATRIC: DO YOU HAVE THOUGHTS OF HURTING YOURSELF OR SOMEONE ELSE? NO . ARE YOU ABUSED, NEGLECTED, OR IN AN UNSAFE ENVIRONMENT? NO . ENDOCRINOLOGY: ARE YOU DIABETIC? YES . OTHER: DO YOU NEED ANY PRESCRIPTIONS? YES . IF YES, PLEASE LIST: ____OXYCODONE . ANY NEW PROBLEMS WITH YOUR MEDICATIONS? NO . WHEN DID YOU LAST EAT? ____ . WHEN DID YOU LAST DRINK? ____ . WHAT DID YOU LAST DRINK? ____ . NAME OF PERSON DRIVING YOU HOME? ____ . DO YOU HAVE ANY OTHER QUESTIONS OR CONCERNS NO . VITAL SIGNS WT 302.4 LBS, HT 60.5 IN, BMI 58.08 INDEX, BP 138/78 MM HG, HR 109 /MIN, RR 18 /MIN, TEMP 97.2 F, OXYGEN SAT % 97%, SAFE IN ENV? (Y/N) YES, NA INITIALS [place] 08:38, REVIEWED BY: ROBERTA. EXAMINATION GENERAL EXAMINATION: GENERAL APPEARANCE:AWAKE,ALERT ,PLEAASANT . PSYCHAFFECT NORMAL . LUNGS:LUNG ARORA ARE CLEAR TO AUSCULTATION BILATERALLY. GOOD MOVEMENT OF AIR . HEART:S1, S2 IN A REGULAR RATE AND RHYTHM. NO SIGNIFICANT MURMURS, RUBS OR GALLOPS NOTED . MUSCULOSKELETAL:MUSCLE STRENGTH TESTING 4/5 BILATERAL LOWER EXTREMITIES . LUMBAR SACRAL SPINETRIGGER POINTS:, ELICITED WITH PALPATION OVER RIGHT LUMBAR PARAVERTEBRAL MUSCLES AND RESTRICTION OF ROM IN THIS AREA . DIAGNOSTIC TESTS REVIEWEDMRI L/S SPINE-02/26/17. ASSESSMENTS MYALGIA, OTHER SITE - M79.18 (PRIMARY) SPONDYLOSIS OF LUMBOSACRAL REGION WITHOUT MYELOPATHY OR RADICULOPATHY - M47.817 TREATMENT MYALGIA, OTHER SITE NOTES: TPI RIGHT LOW BACK, ISTOP REGISTRY REVIEWED AND DEMONSTRATES COMPLLIANCE. (REF #[id number] ) BRINGS IN MEDICATIONS WHICH IS APPROPRIATE FOR WHAT WAS DISPENSED. RECENT URINE TOXICOLOGY REVIEWED. NO UNAUTHORIZED MEDICATIONS. NO ILLICIT SUBSTANCES AND PRESCRIBED MEDICATIONS WERE PRESENT. , RISKS AND BENEFITS OF NARCOTIC/OPIOD MEDICATIONS WERE REVIEWED WITH PATIENT - THIS INCLUDES BUT IS NOT LIMITED TO RISK OF DEPENDANCE/DEVELOPMENT OF ADDICTION, MOOD DISTURBANCE AND DEPRESSION, OSTEOPOROSIS, HORMONAL AND LABIDAL CHANGES, RESPIRATORY DEPRESSION AND . PATIENT IS ADVISED NOT TO DRIVE OR DRINK ALCOHOL WHILE ON THESE MEDICATIONS. PROCEDURE CODES FA211 ESTABILISHED PATIENT [facility] CHARGE DISPOSITION & COMMUNICATION FOLLOW UP POST (REASON: TPI RIGHT LOW BACK) ELECTRONICALLY SIGNED BY STEPHAN DRAKE ON 06/29/2018 AT 04:43 PM EDT DISCLAIMER : THIS IS A VISIT SUMMARY EXTRACTED FROM THE [facility] CHART. IT IS NOT A COPY OF THE [facility] PROGRESS NOTE. [employer]
== END ==
LOC: M PAIN 08:30
PROVIDERS: ATTEND Nurse Practitioner Family
DX: M79.18 Myalgia, other site (principal); M47.817 Spondylosis without myelopathy or radiculopathy, lumbosacral region; E11.9 Type 2 diabetes mellitus without complications; I10 Essential (primary) hypertension; K21.9 Gastro-esophageal reflux disease without esophagitis; F41.9 Anxiety disorder, unspecified; F17.210 Nicotine dependence, cigarettes, uncomplicated; E66.01 Morbid (severe) obesity due to excess calories; Z68.43 Body mass index [BMI] 50.0-59.9, adult; Z79.84 Long term (current) use of oral hypoglycemic drugs; Z79.891 Long term (current) use of opiate analgesic; Z79.899 Other long term (current) drug therapy; Z88.2 Allergy status to sulfonamides; Z88.6 Allergy status to analgesic agent; Z86.14 Personal history of Methicillin resistant Staphylococcus aureus infection; Z98.84 Bariatric surgery status

== ENCOUNTER → 2018-06-22 | Outpatient (CLI) | payer OTHER ==
[~2018-06-22] MED LIST changes: +BUPIVACAINE HCL 0.25% 10 ML VIAL As Ordered ONE; +BUPIVACAINE HCL 0.25% 30 ML VIAL As Ordered ONE; +TRIAMCINOLONE ACETONIDE SUSP 40 MG/ML VIAL (J3301) As Ordered ONE; +diazePAM 5 MG TAB As Ordered ONE; +oxyCODONE 5MG TAB As Ordered ONE
--- NOTE | 2018-07-03 00:08 | ECWPNPC ---
PATIENT NAME: STELLA TAVERAS : 1975 GENDER: FEMALE VISIT DATE: 06/22/2018 DISCHARGE DATE: 06/22/18 1526 VISIT LOCKED DATE TIME: PHYSICIAN: AMELIA LAI MD RESOURCE: AMELIA LAI MD REASON FOR APPOINTMENT 1. TPI LOW BACK HISTORY OF PRESENT ILLNESS HISTORY OF PRESENT ILLNESS: PAIN THE PATIENT DESCRIBES THE PAIN... FALL RISK SCREENING: SCREENING : NO FALLS IN THE PAST YEAR. CURRENT MEDICATIONS TAKING ABILIFY 5 MG TABLET 1 TABLET ORALLY ONCE A DAY, NOTES: 06/21/182129 TAKING CETIRIZINE HCL 10 MG TABLET ORALLY ONCE A DAY, NOTES: 06/21/182129 TAKING LOSARTAN POTASSIUM 25 MG TABLET ORALLY DAILY, NOTES: 06/22/18599 TAKING MONTELUKAST SODIUM 10 MG TABLET 1 TABLET ORALLY ONCE A DAY, NOTES: 06/22/18599 TAKING DITROPAN XL 10 MG TABLET EXTENDED RELEASE 24 HOUR 1 TABLET ORALLY ONCE A DAY, NOTES: 06/22/18599 TAKING OMEPRAZOLE 40 MG CAPSULE DELAYED RELEASE 1 CAPSULE ORALLY FOUR TIMES DAILY, NOTES: 06/22/18599 TAKING VITAMIN B12 500 TABLET 500 MCG ORALLY DAILY, NOTES: 06/22/18599 TAKING MULTIVITAMIN 1 TABLET CHEWABLE 1 TAB(S) ORALLY DAILY, NOTES: 06/22/18599 TAKING CALCIUM CITRATE + 630 MG TABLET 2 TABLET WITH MEALS ORALLY TWICE A DAY, NOTES: 06/21/18 1600 TAKING LASIX 40 MG TABLET ORALLY BID, NOTES: 06/21/18 AM TAKING METFORMIN HCL 1000 MG TABLET 1 TABLET WITH MEALS ORALLY TWICE A DAY, NOTES: 06/21/182129 TAKING WELLBUTRIN 100 MG TABLET 1 TABLET ORALLY TWICE A DAY, NOTES: 06/22/18599 TAKING IRON 325 MGS 1 TAB ORAL DAILY, NOTES: 06/21/18 1600 TAKING CYMBALTA 90 MG CAPSULE DELAYED RELEASE PARTICLES 1 CAPSULE ORALLY 30MG CAP AND 60 MG CAP DAILY, NOTES: 06/21/182129 TAKING VITAMIN D 1000 UNIT CAPSULE CAPSULE ORALLY ONCE A DAY, NOTES: 06/22/18599 TAKING COLACE 100 MG CAPSULE 1 CAPSULE NEEDED ORALLY 3X/DAY, NOTES: 06/22/18599 TAKING FLONASE 50 MCG/ACT SUSPENSION 1 SPRAY IN EACH NOSTRIL NASALLY ONCE A DAY NEEDED, NOTES: NONE RECENTLY TAKING SUMATRIPTAN SUCCINATE 50 MG TABLET 1 TABLET NEEDED ORALLY DIRECTED, NOTES: NONE IN A MONTH TAKING GABAPENTIN 800 MG TABLET 1 CAPSULE ORALLY FOR PAIN TID, NOTES: 06/22/18599 TAKING AMITRIPTYLINE HCL 25 MG TABLET 1 TABLET ORALLY ONCE A DAY, NOTES: 06/21/182129 TAKING LYRICA 200 MG CAPSULE 1 CAPSULE ORALLY Q8H TID, NOTES: 06/22/18599 TAKING CYCLOBENZAPRINE HCL 10 MG TABLET DIRECTED ORALLY Q8H PRN PAIN #30 TAB SHOULD LAST 30 DAYS, NOTES: 06/21/182129 TAKING OXYCODONE HCL 5 MG TABLET 1 TABLET NEEDED ORALLY Q8H PRN MDD3 #50 TAB SHOULD LAST 30 DAYS, NOTES: 06/21/182129 TAKING MS CONTIN 15 MG TABLET EXTENDED RELEASE 1 TABLET ORALLY Q12H BID MDD2, NOTES: 06/21/182129 MEDICATION LIST REVIEWED AND RECONCILED WITH THE PATIENT PAST MEDICAL HISTORY DIABETES HYPERTENSION HYPERCHOLESTEREMIA OBESITY GERD (GASTROESOPHAGEAL REFLUX DISEASE) GASTRIC BYPASS ANXIETY BACK PAIN RIGHT HIP AND KNEE PAIN ALLERGIES SULFA (FOR ALLERGY USE ONLY): RASH: ALLERGY NSAIDS: GASTRIC BYPASS: CONTRAINDICATION SURGICAL HISTORY GASTRIC BYPASS 06/2015 BILAT CARPAL TUNNEL C SECTION CHOLECYSTECTOMY TONSILLECTOMY & ADENOIDECTOMY D&C 10/2017 FAMILY HISTORY FATHER: , DIAGNOSED WITH HEART DISEASE MOTHER: ALIVE, DIAGNOSED WITH DIABETES, HYPERTENSION 2 BROTHER(S) . 1 SON(S) - HEALTHY. 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 SOCIAL HISTORY GENERAL: TOBACCO USE ARE YOU A:CURRENT SMOKER HOW OFTEN DO YOU SMOKE CIGARETTES?EVERY DAY HOW SOON AFTER YOU WAKE UP DO YOU SMOKE YOUR FIRST CIGARETTE?WITHIN 5 MIN HOW MANY CIGARETTES A DAY DO YOU SMOKE?11-20 ARE YOU INTERESTED IN QUITTING?THINKING ABOUT QUITTING WAITING FOR CLASS TO START AGAIN TO GET PATCHES THROUGH HER PRIMARY PATIENT COUNSELED ON THE DANGERS OF TOBACCO USE AND URGED TO QUIT:06/15/2018 COUNSELED THE PATIENT ON SMOKING CESSATION, EDUCATION [id number]/27/2019 SMOKING CESSATION INFORMATION GIVEN03/01/201810/19 PAMPHLET GIVEN ALCOHOL SCREENING DID YOU HAVE A DRINK CONTAINING ALCOHOL IN THE PAST YEAR?NO POINTS0 INTERPRETATIONNEGATIVE RECREATIONAL DRUG USE DRUG USE?NO CAFFEINE CAFFEINE USE?YES HOW OFTEN AND HOW MUCH? 2 BOTTLES [place]/DAY TAOISM [id number] NONE LANGUAGE LANGUAGES SPOKEN:DOMINICAN EDUCATION LEVEL OF EDUCATION:NOT FINISHED COLLEGE 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, WALKER SHAKE FEEDER NEEDED?NO DOMESTIC VIOLENCE DO YOU FEEL SAFE IN YOUR ENVIRONMENT?YES OCCUPATION: DISABLED. DIET: REGULAR. EXERCISE: WALKS. MARITAL STATUS: SINGLE. OTHERS AT HOME: CHILD, OTHER NON-RELATIVE. NEW PATIENT PAIN DIARY TODAY'S VISITNOTES PAIN CLINIC PFS, CLERGY, PUBLIC HEALTH REFERRALS PFS REFERRAL NEEDED?NO CLERGY REFERRAL NEEDED?NO PUBLIC HEALTH REFERRAL NEEDED?NO WAS THE PROVIDER NOTIFIED OF ANY PERTINENT INFO? N/A HAS THE PATIENT BEEN EDUCATED REGARDING HIS/HER PLAN OF CARE?YES HAS THE PATIENT BEEN EDUCATED REGARDING PAIN, THE RISK FOR PAIN, THE IMPORTANCE OF EFFECTIVE PAIN MANAGEMENT, AND THE PAIN ASSESSMENT PROCESS?YES ADVANCE DIRECTIVE ADVANCE DIRECTIVE DISCUSSED WITH PATIENT:YES HCP - ARNULFO TAVERAS [phone] REVIEWED WITH PATIENT 01/11/18 0940 JS02/07/18 0905 REVIEWED WITH PT. AD03/31 18 1505 REVIEWED WITH PT. AD04/21/18 1210 REVIEWED WITH PT LASREVIEWED WITH PATIENT 06/15/18 0844 JSREVIEWED WITH PT 06/22/18 1432 BV. HOSPITALIZATION/MAJOR DIAGNOSTIC PROCEDURE SURGERIES REVIEW OF SYSTEMS REVIEWED BY: PROVIDER: . CONSTITUTIONAL: ANY CHANGE IN YOUR MEDICAL CONDITION? NO . CHILLS NO . FEVER NO . INFECTION: DO YOU HAVE NEW INFECTIONS? NO . DO YOU HAVE HISTORY OF MRSA? YES, PT HAS HISTORY OF MRSA IN [address] LAI CONFIRMS OKAY TO PROCEDE WITH PROCEDURE . MUSCULOSKELETAL: ANY NEW PATTERNS OF PAIN OR NUMBNESS? NO . GASTROENTEROLOGY: ANY NEW CHANGE IN BOWEL CONTROL? NO . GENITOURINARY: ANY NEW CHANGE IN BLADDER CONTROL? NO . IS THERE A CHANCE YOU COULD BE ? NO . HEMATOLOGY/LYMPH: DO YOU TAKE ANY BLOOD THINNERS? (FOR EXAMPLE- COUMADIN, PLAVIX, AGGRENOX, PLATEL, PRADAXA, OR XARELTO) NO . WHEN WAS YOUR LAST DOSE? DATE: TIME: . NEUROLOGY: HAVE YOU FALLEN IN THE PAST 12 MONTHS? NO . ANY NEW EXTREMITY NUMBNESS OR WEAKNESS? NO . CARDIOLOGY: DO YOU HAVE A PACEMAKER OR DEFIBRILLATOR? NO . RESPIRATORY: HAVE YOU BEEN SICK IN THE PAST WEEK? NO . FEVER NO . FLU LIKE SYMPTOMS? NO . COUGH NO . INTEGUMENTARY: DO YOU HAVE ANY RASHES OR OPEN SORES? NO . ALLERGIC/IMMUNO: ARE YOU ALLERGIC TO IV DYE? NO . ANY NEW ALLERGIES? NO . PSYCHIATRIC: DO YOU HAVE THOUGHTS OF HURTING YOURSELF OR SOMEONE ELSE? NO . ARE YOU ABUSED, NEGLECTED, OR IN AN UNSAFE ENVIRONMENT? NO . ENDOCRINOLOGY: ARE YOU DIABETIC? YES . OTHER: DO YOU NEED ANY PRESCRIPTIONS? NO . IF YES, PLEASE LIST: ____ . ANY NEW PROBLEMS WITH YOUR MEDICATIONS? NO . WHEN DID YOU LAST EAT? ____ . WHEN DID YOU LAST DRINK? ____ . WHAT DID YOU LAST DRINK? ____ . NAME OF PERSON DRIVING YOU HOME? ____ . DO YOU HAVE ANY OTHER QUESTIONS OR CONCERNS NO . VITAL SIGNS WT 316 LBS, HT 60.5 IN, BMI 60.69 INDEX, BP 115/65 MM HG, HR 91 /MIN, RR 18 /MIN, TEMP 97.8 F, OXYGEN SAT % 99%, NA INITIALS AW 1248, REVIEWED BY: BV. ASSESSMENTS MYALGIA, OTHER SITE - M79.18 (PRIMARY) PROCEDURES PN TRIGGER POINT INJECTION WITH STEROIDS PRE PROCEDURE DIAGNOSIS 1. MYALGIA 2. PAIN AT BILATERAL LOW BACK AREA POST PROCEDURE DIAGNOSIS 1. MYALGIA 2. PAIN AT BILATERAL LOW BACK AREA PROCEDURE TRIGGER POINT INJECTION AT BILATERAL LOW BACK AREA SURGEON DR. AMELIA LAI RETIREMENT OFFICER NONE ANESTHESIA LOCAL PRE PROCEDURE NOTE THE PATIENT HAS A HISTORY OF CHRONIC PAIN AT THE RIGHT AND LEFT LOW BACK AREA. I EVALUATE THE PATIENT AND REVIEWED THE CHART. THERE IS EVIDENCE OF BANDS OF TISSUE WITH RESTRICTION OF MOVEMENT AND PRESENCE OF TRIGGER POINT AT THE AFFECTED AREA. I WENT OVER THE RISKS, ALTERNATIVES, AND BENEFITS ASSOCIATED WITH THIS PROCEDURE. THE PATIENT WOULD LIKE TO PROCEED AND GIVE CONSENT TO PERFORMED THE PROCEDURE. THE PATIENT DENIES UNEXPLAINABLE WEIGHT LOSS, FEVER, CHILLS, OR NEW CHANGES IN URINARY OR BOWEL CONTROL DESCRIPTION OF PROCEDURE THE PATIENT WAS BROUGHT TO THE PROCEDURE ROOM AND PLACED IN THE SITTING POSITION. THE AREA WAS CLEANED WITH ALCOHOL. THE PROCEDURE WAS DONE USING ASEPTIC STERILE TECHNIQUE. I CHECKED LATERALITY AND THE LEVEL WHERE THE PROCEDURE WAS GOING TO BE PERFORMED WITH THE PATIENT AND THE SUPPORTING STAFF AT THE MOMENT OF THE TIME OUT IN THE PROCEDURE ROOM. USING A 25-GAUGE NEEDLE, TRIGGER POINTS WERE INJECTED AT THE RIGHT AND LEFT LOW BACK AREA WITH A TOTAL OF 40 ML OF BUPIVACAINE 0.25% AND KENALOG 40 MG. THERE WAS NO EVIDENCE OF BLOOD, PARESTHESIA OR CEREBROSPINAL FLUID DURING THE PROCEDURE. THE PATIENT WAS SENT TO THE RECOVERY ROOM. THE PATIENT WAS MOVING THE EXTREMITIES AND DOING WELL. THERE WAS NO COMPLICATION DURING THE PROCEDURE POST PROCEDURE NOTE THE PATIENT WILL BE SEEN IN A FOLLOW UP IN THE NEXT FEW WEEKS. INSTRUCTIONS WERE GIVEN, QUESTIONS WERE ANSWERED, AND THE PATIENT EXPRESSED UNDERSTANDING AND AGREES WITH THE PLAN. I, TIFFANY HIDALGO, DOCUMENTED THE ABOVE INFORMATION ACTING A SCRIBE FOR DR. LAI. I HAVE REVIEWED THE ABOVE DOCUMENT, WRITTEN BY TIFFANY ALEXANDERIBManohar AND I VERIFY THAT IT IS ACCURATE. PROCEDURE CODES 51047 INJ TRIGGER POINT / MUSC DISPOSITION & COMMUNICATION FOLLOW UP 3 WEEKS ELECTRONICALLY SIGNED BY AMELIA LAI MD, MD ON 07/02/2018 AT 07:59 PM EDT DISCLAIMER : THIS IS A VISIT SUMMARY EXTRACTED FROM THE [employer] CHART. IT IS NOT A COPY OF THE [employer] PROGRESS NOTE. JUSTUS
== END ==
LOC: M PAIN 12:45
PROVIDERS: ATTEND Anesthesiology
DX: M79.18 Myalgia, other site (principal); M54.5 Low back pain; E11.9 Type 2 diabetes mellitus without complications; I10 Essential (primary) hypertension; E78.00 Pure hypercholesterolemia, unspecified; K21.9 Gastro-esophageal reflux disease without esophagitis; F41.9 Anxiety disorder, unspecified; F17.210 Nicotine dependence, cigarettes, uncomplicated; E66.01 Morbid (severe) obesity due to excess calories; Z68.44 Body mass index [BMI] 60.0-69.9, adult; Z79.84 Long term (current) use of oral hypoglycemic drugs; Z79.891 Long term (current) use of opiate analgesic; Z79.899 Other long term (current) drug therapy; Z88.2 Allergy status to sulfonamides; Z88.6 Allergy status to analgesic agent; Z86.14 Personal history of Methicillin resistant Staphylococcus aureus infection; Z98.84 Bariatric surgery status
CPT/HCPCS: 20552; J3301

== ENCOUNTER → 2018-07-11 | Outpatient (CLI) | payer OTHER ==
[~2018-07-11] MED LIST changes: +ACET300T47 PO; -BUPIVACAINE HCL 0.25% 10 ML VIAL As Ordered ONE; -BUPIVACAINE HCL 0.25% 30 ML VIAL As Ordered ONE; -CODE30TA3 PO; -DULO30CA PO; +DULO30CA9 PO; +HYDR-3715 PO; +ISOVUE-M 300 61% 15ML VIAL (Q9967) As Ordered ONE; +LEVA750T7 PO; +LIDOCAINE 1% SDV INJ 30 ML VIAL As Ordered ONE; -NORCOTAB PO; -TRIAMCINOLONE ACETONIDE SUSP 40 MG/ML VIAL (J3301) As Ordered ONE; -diazePAM 5 MG TAB As Ordered ONE; +methylPREDNISolone SUSP 40 MG/ML (DEPO-medrol) VIAL (J1030) As Ordered ONE; -oxyCODONE 5MG TAB As Ordered ONE
--- NOTE | 2018-07-26 01:08 | ECWPNPC ---
PATIENT NAME: STELLA TAVERAS : 1975 GENDER: FEMALE VISIT DATE: 07/11/2018 DISCHARGE DATE: 07/11/18 1418 VISIT LOCKED DATE TIME: PHYSICIAN: PATRICIA MCNAMARA RESOURCE: PATRICIA MCNAMARA REASON FOR APPOINTMENT 1. POST TPI HISTORY OF PRESENT ILLNESS HISTORY OF PRESENT ILLNESS: HERE FOR POST PROCEDURE F/U.HAD TPI RIGHT LOW BACK ON 06/22/18.REPORTS SOME SHORT TERM IMPROVEMENT.PAIN IS LOCATED ON RIGHT SIDE LOW BACK WITH RADIATION DOWN TO KNEE.RATING PAIN VAS 8/10.REVIEWED MRI L/S SPINE AND DISCUSSED TREATMENT OPTIONS.SHE IS REFUSING SURGICAL CONSULT. PAIN THE PATIENT DESCRIBES THE PAIN... THE PATIENT DESCRIBES THE PAIN... FALL RISK SCREENING: SCREENING :NO FALLS REPORTED IN THE LAST YEAR CURRENT MEDICATIONS TAKING ABILIFY 5 MG TABLET 1 TABLET ORALLY ONCE A DAY TAKING CETIRIZINE HCL 10 MG TABLET ORALLY ONCE A DAY TAKING LOSARTAN POTASSIUM 25 MG TABLET ORALLY DAILY TAKING MONTELUKAST SODIUM 10 MG TABLET 1 TABLET ORALLY ONCE A DAY TAKING DITROPAN XL 10 MG TABLET EXTENDED RELEASE 24 HOUR 1 TABLET ORALLY ONCE A DAY TAKING OMEPRAZOLE 40 MG CAPSULE DELAYED RELEASE 1 CAPSULE ORALLY FOUR TIMES DAILY TAKING VITAMIN B12 500 TABLET 500 MCG ORALLY DAILY TAKING MULTIVITAMIN 1 TABLET CHEWABLE 1 TAB(S) ORALLY DAILY TAKING CALCIUM CITRATE + 630 MG TABLET 2 TABLET WITH MEALS ORALLY TWICE A DAY TAKING LASIX 40 MG TABLET ORALLY BID TAKING METFORMIN HCL 1000 MG TABLET 1 TABLET WITH MEALS ORALLY TWICE A DAY TAKING WELLBUTRIN 100 MG TABLET 1 TABLET ORALLY TWICE A DAY TAKING IRON 325 MGS 1 TAB ORAL DAILY TAKING CYMBALTA 90 MG CAPSULE DELAYED RELEASE PARTICLES 1 CAPSULE ORALLY 30MG CAP AND 60 MG CAP DAILY TAKING VITAMIN D 1000 UNIT CAPSULE CAPSULE ORALLY ONCE A DAY TAKING COLACE 100 MG CAPSULE 1 CAPSULE NEEDED ORALLY 3X/DAY TAKING FLONASE 50 MCG/ACT SUSPENSION 1 SPRAY IN EACH NOSTRIL NASALLY ONCE A DAY NEEDED TAKING SUMATRIPTAN SUCCINATE 50 MG TABLET 1 TABLET NEEDED ORALLY DIRECTED TAKING AMITRIPTYLINE HCL 25 MG TABLET 1 TABLET ORALLY ONCE A DAY TAKING LYRICA 200 MG CAPSULE 1 CAPSULE ORALLY Q8H TID TAKING CYCLOBENZAPRINE HCL 10 MG TABLET DIRECTED ORALLY Q8H PRN PAIN #30 TAB SHOULD LAST 30 DAYS TAKING OXYCODONE HCL 5 MG TABLET 1 TABLET NEEDED ORALLY Q8H PRN MDD3 #50 TAB SHOULD LAST 30 DAYS TAKING GABAPENTIN 800 MG TABLET 1 CAPSULE ORALLY FOR PAIN TID TAKING MS CONTIN 15 MG TABLET EXTENDED RELEASE 1 TABLET ORALLY Q12H BID MDD2 MEDICATION LIST REVIEWED AND RECONCILED WITH THE PATIENT ALLERGIES NO[ALLERGIES VERIFIED] 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 TO GET PATCHES THROUGH HER PRIMARY COUNSELED THE PATIENT ON SMOKING CESSATION, EDUCATION [id number]/27/2019 HOW MANY CIGARETTES A DAY DO YOU SMOKE?11-20 HOW SOON AFTER YOU WAKE UP DO YOU SMOKE YOUR FIRST CIGARETTE?WITHIN 5 MIN HOW OFTEN DO YOU SMOKE CIGARETTES?EVERY DAY PATIENT COUNSELED ON THE DANGERS OF TOBACCO USE AND URGED TO QUIT:07/11/2018 SMOKING CESSATION INFORMATION GIVEN03/01/201810/19 PAMPHLET GIVEN ALCOHOL SCREENING DID YOU HAVE A DRINK CONTAINING ALCOHOL IN THE PAST YEAR?NO POINTS0 INTERPRETATIONNEGATIVE RECREATIONAL DRUG USE DRUG USE?NO CAFFEINE CAFFEINE USE?YES HOW OFTEN AND HOW MUCH? 2 BOTTLES [place] DEW/DAY TEMPLE [id number] NONE LANGUAGE LANGUAGES SPOKEN:SPANISH EDUCATION LEVEL OF EDUCATION:NOT FINISHED COLLEGE LEARNING BARRIERS / SPECIAL NEEDS BARRIERS TO LEARNING?NO HEARING IMPAIRED?NO VISION IMPAIRED?YES WEARS GLASSES :CORRECTIVE LENSES COGNITIVELY IMPAIRED?NO READINESS TO LEARN?YES LEARNING PREFERENCES?NO LEARNING CAPABILITIES PRESENT?YES EMOTIONAL BARRIERS?NO SPECIAL DEVICES?YES :CANE, WALKER GLOBAL LOGISTICS MANAGER NEEDED?NO DOMESTIC VIOLENCE DO YOU FEEL SAFE IN YOUR ENVIRONMENT?YES OCCUPATION: DISABLED. DIET: REGULAR. EXERCISE: WALKS. MARITAL STATUS: SINGLE. OTHERS AT HOME: CHILD, OTHER NON-RELATIVE. NEW PATIENT PAIN DIARY TODAY'S VISITNOTES PAIN CLINIC PFS, CLERGY, PUBLIC HEALTH REFERRALS PFS REFERRAL NEEDED?NO CLERGY REFERRAL NEEDED?NO PUBLIC HEALTH REFERRAL NEEDED?NO WAS THE PROVIDER NOTIFIED OF ANY PERTINENT INFO? N/A HAS THE PATIENT BEEN EDUCATED REGARDING HIS/HER PLAN OF CARE?YES HAS THE PATIENT BEEN EDUCATED REGARDING PAIN, THE RISK FOR PAIN, THE IMPORTANCE OF EFFECTIVE PAIN MANAGEMENT, AND THE PAIN ASSESSMENT PROCESS?YES ADVANCE DIRECTIVE ADVANCE DIRECTIVE DISCUSSED WITH PATIENT:YES HCP - ARNULFO TAVERAS [phone] REVIEWED WITH PATIENT 01/11/18 0940 02/07/18 0905 REVIEWED WITH PT. AD03/31 18 1505 REVIEWED WITH PT. TRINITY04/21/18 1210 REVIEWED WITH PT LASREVIEWED WITH PATIENT 06/15/18 0844 JSREVIEWED WITH PT 06/22/18 1432 BV. REVIEW OF SYSTEMS REVIEWED BY: PROVIDER: PATRICIA ROTHMAN . CONSTITUTIONAL: ANY CHANGE IN YOUR MEDICAL CONDITION? NO . CHILLS NO . FEVER NO . INFECTION: DO YOU HAVE NEW INFECTIONS? NO . DO YOU HAVE HISTORY OF MRSA? YES FROM A C SECTION INCISION 2009 . MUSCULOSKELETAL: ANY NEW PATTERNS OF PAIN OR NUMBNESS? NO . GASTROENTEROLOGY: ANY NEW CHANGE IN BOWEL CONTROL? NO . GENITOURINARY: ANY NEW CHANGE IN BLADDER CONTROL? NO . IS THERE A CHANCE YOU COULD BE ? NO . HEMATOLOGY/LYMPH: DO YOU TAKE ANY BLOOD THINNERS? (FOR EXAMPLE- COUMADIN, PLAVIX, AGGRENOX, PLATEL, PRADAXA, OR XARELTO) NO . WHEN WAS YOUR LAST DOSE? DATE: TIME: . NEUROLOGY: HAVE YOU FALLEN IN THE PAST 12 MONTHS? NO . ANY NEW EXTREMITY NUMBNESS OR WEAKNESS? NO . CARDIOLOGY: DO YOU HAVE A PACEMAKER OR DEFIBRILLATOR? NO . RESPIRATORY: HAVE YOU BEEN SICK IN THE PAST WEEK? NO . FEVER NO . FLU LIKE SYMPTOMS? NO . COUGH NO . INTEGUMENTARY: DO YOU HAVE ANY RASHES OR OPEN SORES? NO . ALLERGIC/IMMUNO: ARE YOU ALLERGIC TO IV DYE? NO . ANY NEW ALLERGIES? NO . PSYCHIATRIC: DO YOU HAVE THOUGHTS OF HURTING YOURSELF OR SOMEONE ELSE? NO . ARE YOU ABUSED, NEGLECTED, OR IN AN UNSAFE ENVIRONMENT? NO . ENDOCRINOLOGY: ARE YOU DIABETIC? YES . OTHER: DO YOU NEED ANY PRESCRIPTIONS? NO . IF YES, PLEASE LIST: ____ . ANY NEW PROBLEMS WITH YOUR MEDICATIONS? NO . WHEN DID YOU LAST EAT? ____ . WHEN DID YOU LAST DRINK? ____ . WHAT DID YOU LAST DRINK? ____ . NAME OF PERSON DRIVING YOU HOME? ____ . DO YOU HAVE ANY OTHER QUESTIONS OR CONCERNS NO . VITAL SIGNS WT 305 LBS, HT 60.5 IN, BMI 58.58 INDEX, BP 122/66 MM HG, HR 84 /MIN, RR 18 /MIN, TEMP 97.0 F, OXYGEN SAT % 97%, SAFE IN ENV? (Y/N) YES, NA INITIALS AW 1332, REVIEWED BY: KG. EXAMINATION GENERAL EXAMINATION: GENERAL APPEARANCE: AWAKE,ALERT ,PLEAASANT . PSYCH AFFECT NORMAL . LUNGS: LUNG ARORA ARE CLEAR TO AUSCULTATION BILATERALLY. GOOD MOVEMENT OF AIR . HEART: S1, S2 IN A REGULAR RATE AND RHYTHM. NO SIGNIFICANT MURMURS, RUBS OR GALLOPS NOTED . LUMBAR SACRAL SPINE PALPATION: + FOR PAIN OVER L/S SPINE. + FOR PAIN OVER L/S PARASPINALS.POSITIVE SLE AT 45 DEGREES BILAT. NEUROLOGIC EXAM: NORMAL SENSATION LIGHT TOUCH BILAT. LOWER EXTREMITIES. DIAGNOSTIC TESTS REVIEWED MRI L/S SPINE-02/26/17-REVIEWED. 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 PROCEDURE CODES FA211 ESTABILISHED PATIENT [facility] CHARGE DISPOSITION & COMMUNICATION FOLLOW UP POST (REASON: L4/5 INTRALAMINAR LESI) ELECTRONICALLY SIGNED BY STEPHAN DRAKE ON 07/25/2018 AT 09:23 AM EDT DISCLAIMER : THIS IS A VISIT SUMMARY EXTRACTED FROM THE [employer] CHART. IT IS NOT A COPY OF THE [employer] PROGRESS NOTE. JUSTUS
== END ==
LOC: M PAIN 13:30
PROVIDERS: ATTEND Nurse Practitioner Family
DX: M47.817 Spondylosis without myelopathy or radiculopathy, lumbosacral region (principal); M51.16 Intervertebral disc disorders with radiculopathy, lumbar region; F17.210 Nicotine dependence, cigarettes, uncomplicated; E11.9 Type 2 diabetes mellitus without complications; Z79.84 Long term (current) use of oral hypoglycemic drugs; Z86.14 Personal history of Methicillin resistant Staphylococcus aureus infection; Z79.899 Other long term (current) drug therapy

== ENCOUNTER → 2018-07-12 | Outpatient (CLI) | payer OTHER ==
[~2018-07-12] MED LIST changes: -ACET300T47 PO; +CODE30TA3 PO; +DULO30CA PO; -DULO30CA9 PO; -HYDR-3715 PO; -ISOVUE-M 300 61% 15ML VIAL (Q9967) As Ordered ONE; -LEVA750T7 PO; -LIDOCAINE 1% SDV INJ 30 ML VIAL As Ordered ONE; +NORCOTAB PO; +diazePAM 5 MG TAB As Ordered ONE; -methylPREDNISolone SUSP 40 MG/ML (DEPO-medrol) VIAL (J1030) As Ordered ONE; +oxyCODONE 5MG TAB As Ordered ONE
--- NOTE | 2018-07-12 12:48 | REP ---
Partial lumbar spine series: Three views History: Injection procedure for pain. 22 seconds of fluoroscopy time is reported. Findings: A sequence of three fluoroscopically obtained last image hold procedural spot radiographs of the lumbar spine document needle position and contrast injection associated with injection procedure. Electronically Signed by Biju Bui MD 07/12/2018 12:40 P
--- NOTE | 2018-07-17 23:52 | ECWPNPC ---
PATIENT NAME: STELLA TAVERAS : 1975 GENDER: FEMALE VISIT DATE: 07/12/2018 DISCHARGE DATE: 07/12/18 1009 VISIT LOCKED DATE TIME: PHYSICIAN: AMELIA LAI MD RESOURCE: AMELIA LAI MD REASON FOR APPOINTMENT 1. L4/5 INTRALAMINAR LESI HISTORY OF PRESENT ILLNESS HISTORY OF PRESENT ILLNESS: PAIN THE PATIENT DESCRIBES THE PAIN... FALL RISK SCREENING: SCREENING :NO FALLS REPORTED IN THE LAST YEAR CURRENT MEDICATIONS TAKING ABILIFY 5 MG TABLET 1 TABLET ORALLY ONCE A DAY, NOTES: 07/11 10PM TAKING CETIRIZINE HCL 10 MG TABLET ORALLY ONCE A DAY, NOTES: 07/11 10PM TAKING LOSARTAN POTASSIUM 25 MG TABLET ORALLY DAILY, NOTES: 07/11 8AM TAKING MONTELUKAST SODIUM 10 MG TABLET 1 TABLET ORALLY ONCE A DAY, NOTES: 07/11 8AM TAKING DITROPAN XL 10 MG TABLET EXTENDED RELEASE 24 HOUR 1 TABLET ORALLY ONCE A DAY, NOTES: 07/11 8AM TAKING OMEPRAZOLE 40 MG CAPSULE DELAYED RELEASE 1 CAPSULE ORALLY FOUR TIMES DAILY, NOTES: 07/11 10PM TAKING VITAMIN B12 500 TABLET 500 MCG ORALLY DAILY, NOTES: 07/11 8AM TAKING MULTIVITAMIN 1 TABLET CHEWABLE 1 TAB(S) ORALLY DAILY, NOTES: 07/11 8AM TAKING CALCIUM CITRATE + 630 MG TABLET 2 TABLET WITH MEALS ORALLY TWICE A DAY, NOTES: 07/11 4PM TAKING LASIX 40 MG TABLET ORALLY BID, NOTES: 07/10 8AM TAKING METFORMIN HCL 1000 MG TABLET 1 TABLET WITH MEALS ORALLY TWICE A DAY, NOTES: 07/11 10PM TAKING WELLBUTRIN 100 MG TABLET 1 TABLET ORALLY TWICE A DAY, NOTES: 07/11 10PM TAKING IRON 325 MGS 1 TAB ORAL DAILY, NOTES: 07/11 4PM TAKING CYMBALTA 90 MG CAPSULE DELAYED RELEASE PARTICLES 1 CAPSULE ORALLY 30MG CAP AND 60 MG CAP DAILY, NOTES: 07/11 10PM TAKING VITAMIN D 1000 UNIT CAPSULE CAPSULE ORALLY ONCE A DAY, NOTES: 07/11 8AM TAKING COLACE 100 MG CAPSULE 1 CAPSULE NEEDED ORALLY 3X/DAY, NOTES: 07/11 10PM TAKING FLONASE 50 MCG/ACT SUSPENSION 1 SPRAY IN EACH NOSTRIL NASALLY ONCE A DAY NEEDED, NOTES: 07/11 8AM TAKING SUMATRIPTAN SUCCINATE 50 MG TABLET 1 TABLET NEEDED ORALLY DIRECTED, NOTES: 2 MONTHS TAKING AMITRIPTYLINE HCL 25 MG TABLET 1 TABLET ORALLY ONCE A DAY, NOTES: 07/11 10PM TAKING LYRICA 200 MG CAPSULE 1 CAPSULE ORALLY Q8H TID, NOTES: 07/11 10PM TAKING CYCLOBENZAPRINE HCL 10 MG TABLET DIRECTED ORALLY Q8H PRN PAIN #30 TAB SHOULD LAST 30 DAYS, NOTES: 07/11 4PM TAKING OXYCODONE HCL 5 MG TABLET 1 TABLET NEEDED ORALLY Q8H PRN MDD3 #50 TAB SHOULD LAST 30 DAYS, NOTES: 2 DAYS AGO TAKING GABAPENTIN 800 MG TABLET 1 CAPSULE ORALLY FOR PAIN TID, NOTES: 07/11 10PM TAKING MS CONTIN 15 MG TABLET EXTENDED RELEASE 1 TABLET ORALLY Q12H BID MDD2, NOTES: 07/11 10PM MEDICATION LIST REVIEWED AND RECONCILED WITH THE PATIENT PAST MEDICAL HISTORY DIABETES HYPERTENSION HYPERCHOLESTEREMIA OBESITY GERD (GASTROESOPHAGEAL REFLUX DISEASE) GASTRIC BYPASS ANXIETY BACK PAIN RIGHT HIP AND KNEE PAIN ALLERGIES SULFA (FOR ALLERGY USE ONLY): RASH - ALLERGY NSAIDS: GASTRIC BYPASS - CONTRAINDICATION SURGICAL HISTORY GASTRIC BYPASS 06/2015 BILAT CARPAL TUNNEL C SECTION CHOLECYSTECTOMY TONSILLECTOMY & ADENOIDECTOMY D&C 10/2017 FAMILY HISTORY FATHER: , DIAGNOSED WITH HEART DISEASE MOTHER: ALIVE, HYPERTENSION, DIABETES 2 BROTHER(S) . 1 SON(S) - HEALTHY. 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 TO GET PATCHES THROUGH HER PRIMARY COUNSELED THE PATIENT ON SMOKING CESSATION, EDUCATION [id number]/27/2019 HOW MANY CIGARETTES A DAY DO YOU SMOKE?11-20 HOW SOON AFTER YOU WAKE UP DO YOU SMOKE YOUR FIRST CIGARETTE?WITHIN 5 MIN HOW OFTEN DO YOU SMOKE CIGARETTES?EVERY DAY PATIENT COUNSELED ON THE DANGERS OF TOBACCO USE AND URGED TO QUIT:07/11/2018 SMOKING CESSATION INFORMATION GIVEN07/12/201807/12 PAMPHLET GIVEN LATEX QUESTIONNAIRE LATEX ALLERGY : HAVE YOU EVER DEVELOPED ANY TYPE OF REACTION AFTER HANDLING LATEX PRODUCTS SUCH RUBBER GLOVES, CONDOMS, DIAPHRAGMS, BALLOONS, SOCKS, OR UNDERWEAR?NO LATEX ALLERGY : HAVE YOU EVER DEVELOPED ANY TYPE OF REACTION DURING OR AFTER DENTAL APPOINTMENT, VAGINAL/RECTAL EXAMINATION, SURGICAL PROCEDURE, OR ANY OTHER EXPOSURE?NO LATEX RISK : HAVE YOU EVER HAD ANY DIFFICULTY BREATHING OR HIVES AFTER EATING OR HANDLING ANY FRUITS, OR VEGETABLES; SUCH KIWI, BANANAS, STONE FRUITS, OR CHESTNUTSNO LATEX RISK : DO YOU HAVE A PREVIOUS PERSONAL HISTORY OF MORE THAN NINE SURGERIES, SPINA BIFIDA, OR REPEATED CATHERTIZATIONS? NO LATEX RISK : ARE YOU FREQUENTLY EXPOSED TO LATEX PRODUCTS IN YOUR OCCUPATION?NO DATE ASKED : 07/12/2018 ALCOHOL SCREENING DID YOU HAVE A DRINK CONTAINING ALCOHOL IN THE PAST YEAR?NO POINTS0 INTERPRETATIONNEGATIVE RECREATIONAL DRUG USE DRUG USE?NO CAFFEINE CAFFEINE USE?YES HOW OFTEN AND HOW MUCH? 2 BOTTLES [place] DEW/DAY CATHOLIC [id number] NONE LANGUAGE LANGUAGES SPOKEN:[place]JIK EDUCATION LEVEL OF EDUCATION:NOT FINISHED COLLEGE LEARNING BARRIERS / SPECIAL NEEDS BARRIERS TO LEARNING?NO HEARING IMPAIRED?NO VISION IMPAIRED?YES WEARS GLASSES :CORRECTIVE LENSES COGNITIVELY IMPAIRED?NO READINESS TO LEARN?YES LEARNING PREFERENCES?NO LEARNING CAPABILITIES PRESENT?YES EMOTIONAL BARRIERS?NO SPECIAL DEVICES?YES :CANE, WALKER BARRATTE OPERATOR NEEDED?NO DOMESTIC VIOLENCE DO YOU FEEL SAFE IN YOUR ENVIRONMENT?YES OCCUPATION: DISABLED. DIET: REGULAR. EXERCISE: WALKS. MARITAL STATUS: SINGLE. OTHERS AT HOME: CHILD, OTHER NON-RELATIVE. NEW PATIENT PAIN DIARY TODAY'S VISITNOTES PAIN CLINIC PFS, CLERGY, PUBLIC HEALTH REFERRALS PFS REFERRAL NEEDED?NO CLERGY REFERRAL NEEDED?NO PUBLIC HEALTH REFERRAL NEEDED?NO WAS THE PROVIDER NOTIFIED OF ANY PERTINENT INFO?YES N/A HAS THE PATIENT BEEN EDUCATED REGARDING HIS/HER PLAN OF CARE?YES HAS THE PATIENT BEEN EDUCATED REGARDING PAIN, THE RISK FOR PAIN, THE IMPORTANCE OF EFFECTIVE PAIN MANAGEMENT, AND THE PAIN ASSESSMENT PROCESS?YES ADVANCE DIRECTIVE ADVANCE DIRECTIVE DISCUSSED WITH PATIENT:YES HCP - ARNULFO TAVERAS [phone] REVIEWED WITH PATIENT 01/11/18 0940 JS02/07/18 0905 REVIEWED WITH PT. AD03/31 18 1505 REVIEWED WITH PT. AD04/21/18 1210 REVIEWED WITH PT LASLYNNVIEWED WITH PATIENT 06/15/18 0844 JSREVIEWED WITH PT 06/22/18 1432 BV. HOSPITALIZATION/MAJOR DIAGNOSTIC PROCEDURE SURGERIES REVIEW OF SYSTEMS REVIEWED BY: PROVIDER: . CONSTITUTIONAL: ANY CHANGE IN YOUR MEDICAL CONDITION? NO . CHILLS NO . FEVER NO . INFECTION: DO YOU HAVE NEW INFECTIONS? NO . DO YOU HAVE HISTORY OF MRSA? YES, [facility], 2010 . MUSCULOSKELETAL: ANY NEW PATTERNS OF PAIN OR NUMBNESS? NO . GASTROENTEROLOGY: ANY NEW CHANGE IN BOWEL CONTROL? NO . GENITOURINARY: ANY NEW CHANGE IN BLADDER CONTROL? NO . IS THERE A CHANCE YOU COULD BE ? NO . HEMATOLOGY/LYMPH: DO YOU TAKE ANY BLOOD THINNERS? (FOR EXAMPLE- COUMADIN, PLAVIX, AGGRENOX, PLATEL, PRADAXA, OR XARELTO) NO . WHEN WAS YOUR LAST DOSE? DATE: TIME: . NEUROLOGY: HAVE YOU FALLEN IN THE PAST 12 MONTHS? NO . ANY NEW EXTREMITY NUMBNESS OR WEAKNESS? NO . CARDIOLOGY: DO YOU HAVE A PACEMAKER OR DEFIBRILLATOR? NO . RESPIRATORY: HAVE YOU BEEN SICK IN THE PAST WEEK? NO . FEVER NO . FLU LIKE SYMPTOMS? NO . COUGH NO . INTEGUMENTARY: DO YOU HAVE ANY RASHES OR OPEN SORES? NO . ALLERGIC/IMMUNO: ARE YOU ALLERGIC TO IV DYE? NO . ANY NEW ALLERGIES? NO . PSYCHIATRIC: DO YOU HAVE THOUGHTS OF HURTING YOURSELF OR SOMEONE ELSE? NO . ARE YOU ABUSED, NEGLECTED, OR IN AN UNSAFE ENVIRONMENT? NO . ENDOCRINOLOGY: ARE YOU DIABETIC? YES, . OTHER: DO YOU NEED ANY PRESCRIPTIONS? NO . IF YES, PLEASE LIST: ____ . ANY NEW PROBLEMS WITH YOUR MEDICATIONS? NO . WHEN DID YOU LAST EAT? 07/11 6PM . WHEN DID YOU LAST DRINK? 07/12 6:30AM . WHAT DID YOU LAST DRINK? WATER . NAME OF PERSON DRIVING YOU HOME? PETER . DO YOU HAVE ANY OTHER QUESTIONS OR CONCERNS NO . VITAL SIGNS WT 305 LBS, HT 60.5 IN, BMI 58.58 INDEX, BP 123/72 MM HG, HR 84 /MIN, RR 18 /MIN, TEMP 96.9 F, OXYGEN SAT % 99%, SAFE IN ENV? (Y/N) Y, NA INITIALS MA 09:06, REVIEWED BY: RPETTY. ASSESSMENTS INTERVERTEBRAL DISC DISORDER WITH RADICULOPATHY OF LUMBAR REGION - M51.16 (PRIMARY) SPINAL STENOSIS OF LUMBAR REGION, UNSPECIFIED WHETHER NEUROGENIC CLAUDICATION PRESENT - M48.061 TREATMENT INTERVERTEBRAL DISC DISORDER WITH RADICULOPATHY OF LUMBAR REGION [facility] FLUORO GUIDE SPINE INJECTION (PAIN)[id number] PROCEDURES PRE PROCEDURE DIAGNOSIS LUMBAR DISC DISORDER WITH RADICULOPATHY, LUMBAR SPINAL STENOSIS POST PROCEDURE DIAGNOSIS LUMBAR DISC DISORDER WITH RADICULOPATHY , LUMBAR SPINAL STENOSIS PROCEDURE LUMBAR EPIDURAL STEROID INJECTION UNDER FLUOROSCOPIC GUIDANCE SURGEON DR. AMELIA LAI PLATE GLASS POLISHER NONE ANESTHESIA LOCAL PRE PROCEDURE NOTE THE PATIENT HAS A HISTORY OF CHRONIC LOW BACK PAIN. I EVALUATE THE PATIENT AND REVIEWED THE CHART. I WENT OVER THE RISKS, ALTERNATIVES, AND BENEFITS ASSOCIATED WITH THIS PROCEDURE. THE PATIENT WOULD LIKE TO PROCEED AND GIVE CONSENT TO PERFORMED THE PROCEDURE. THE PATIENT DENIES UNEXPLAINABLE WEIGHT LOSS, FEVER, CHILLS, OR NEW CHANGES IN URINARY OR BOWEL CONTROL. DESCRIPTION OF PROCEDURE THE PATIENT WAS BROUGHT TO THE PROCEDURE ROOM AND PLACED IN THE PRONE POSITION. THE LUMBOSACRAL AREA WAS CLEANED WITH BETADINE SOLUTION AND DRAPED ASEPTICALLY. THE PROCEDURE WAS DONE UNDER STERILE CONDITIONS. I CHECKED LATERALITY AND THE LEVEL WHERE THE PROCEDURE WAS GOING TO BE PERFORMED WITH THE PATIENT AND THE SUPPORTING STAFF AT THE MOMENT OF THE TIME OUT IN THE PROCEDURE ROOM. UNDER FLUOROSCOPIC GUIDANCE, THE TARGET POINT WAS SELECTED AT THE INTERLAMINAR LEVEL OF L4-L5. LIDOCAINE WAS USED TO NUMB THE SKIN AND THE SUBCUTANEOUS TISSUE BELOW IT. EPIDURAL TUOHY NEEDLE, 17-GAUGE, WAS ADVANCED UNDER FLUOROSCOPIC GUIDANCE AND FOLLOWING PATIENT FEEDBACK UNTIL THE EPIDURAL SPACE WAS REACHED, 7 CM DEEP INTO THE SKIN BY THE LOSS OF RESISTANCE TECHNIQUE. ISOVUE M DYE 30%, 0.25 ML, WAS INJECTED SHOWING ADEQUATE SPREAD OF THE DYE. THEN, A SOLUTION OF 3 ML OF NORMAL SALINE WITH DEPO-MEDROL 60 MG WAS INJECTED SLOWLY FOLLOWING PATIENT FEEDBACK. THERE WAS NO EVIDENCE OF BLOOD, PARESTHESIA OR CEREBROSPINAL FLUID DURING THE PROCEDURE. THE PATIENT WAS SENT TO THE RECOVERY ROOM. THE PATIENT WAS MOVING THE EXTREMITIES AND DOING WELL. THERE WAS NO COMPLICATION DURING THE PROCEDURE. FLUOROSCOPY TIME WAS 22 SECONDS. POST PROCEDURE NOTE THE PATIENT WILL BE SEEN IN A FOLLOW UP IN THE NEXT FEW WEEKS. INSTRUCTIONS WERE GIVEN, QUESTIONS WERE ANSWERED, AND THE PATIENT EXPRESSED UNDERSTANDING AND AGREES WITH THE PLAN. I, TIFFANY HIDALGO, DOCUMENTED THE ABOVE INFORMATION ACTING A SCRIBE FOR DR. LAI. I HAVE REVIEWED THE ABOVE DOCUMENT, WRITTEN BY TIFFANY ALEXANDERIBManohar AND I VERIFY THAT IT IS ACCURATE. PROCEDURE CODES 6045F RADXPS IN END [id number] PXD [id number] LUMBAR/SACRAL W/ IMAGING DISPOSITION & COMMUNICATION FOLLOW UP 2 WEEKS ELECTRONICALLY SIGNED BY AMELIA LAI MD, MD ON 07/17/2018 AT 07:51 PM EDT DISCLAIMER : THIS IS A VISIT SUMMARY EXTRACTED FROM THE [employer] CHART. IT IS NOT A COPY OF THE [employer] PROGRESS NOTE. JUSTUS
== END ==
LOC: M PAIN 08:30
PROVIDERS: ATTEND Anesthesiology
DX: G89.29 Other chronic pain (principal); M51.16 Intervertebral disc disorders with radiculopathy, lumbar region; M48.061 Spinal stenosis, lumbar region without neurogenic claudication; E11.9 Type 2 diabetes mellitus without complications; I10 Essential (primary) hypertension; E78.00 Pure hypercholesterolemia, unspecified; K21.9 Gastro-esophageal reflux disease without esophagitis; F41.9 Anxiety disorder, unspecified; F17.210 Nicotine dependence, cigarettes, uncomplicated; E66.01 Morbid (severe) obesity due to excess calories; Z68.43 Body mass index [BMI] 50.0-59.9, adult; Z79.84 Long term (current) use of oral hypoglycemic drugs; Z79.891 Long term (current) use of opiate analgesic; Z79.899 Other long term (current) drug therapy; Z88.2 Allergy status to sulfonamides; Z88.6 Allergy status to analgesic agent; Z98.84 Bariatric surgery status

== ENCOUNTER 2018-07-27 11:53 | Emergency (ER) | payer OTHER ==
[~2018-07-27] VITALS: Ht 157.5 cm; Wt 135.9 kg
[~2018-07-27 11:53] MED LIST changes: +ACET300T47 PO; -CODE30TA3 PO; -DULO30CA PO; +DULO30CA9 PO; +HYDR-3715 PO; -NORCOTAB PO; -diazePAM 5 MG TAB As Ordered ONE; -oxyCODONE 5MG TAB As Ordered ONE
[2018-07-27] MEDS ORDERED: ALBUTEROL SULFATE 2.5 MG/0.5 ML INH NEB SOLN NEB ONE (12:30)
[2018-07-27] MEDS ORDERED: ALBUTEROL 90 MCG/ACT 8GM HFA INHALER INH ONE (12:45)
--- NOTE | 2018-07-27 13:10 | REP ---
CHEST, TWO VIEWS: COMPARISON: 07/02/2014. Interstitial infiltrate is seen in the right perihilar region. Left lung appears clear. Heart is not enlarged. Mediastinal silhouette is unremarkable and unchanged. There are mild degenerative changes of the spine. IMPRESSION: Right perihilar interstitial infiltrate. Electronically Signed by Scott Pagan MD 07/27/2018 03:23 P
[2018-07-27] MEDS ORDERED: LEVA750T7 PO (13:41)
[2018-07-27 13:47] VITALS: BP 129/84
== END 2018-07-27 13:53 | disposition home or self-care (01) ==
LOC: M ED 11:53
DX: J18.9 Pneumonia, unspecified organism (principal); I10 Essential (primary) hypertension; J45.909 Unspecified asthma, uncomplicated; E78.5 Hyperlipidemia, unspecified; Z79.899 Other long term (current) drug therapy; Z88.2 Allergy status to sulfonamides; Z88.8 Allergy status to other drugs, medicaments and biological substances; F17.210 Nicotine dependence, cigarettes, uncomplicated

== ENCOUNTER → 2018-07-28 | Outpatient (CLI) | payer OTHER ==
[~2018-07-28] MED LIST changes: +LEVA750T7 PO
--- NOTE | 2018-08-15 00:44 | ECWPNPC ---
PATIENT NAME: STELLA TAVERAS : 1975 GENDER: FEMALE VISIT DATE: 07/28/2018 DISCHARGE DATE: 07/28/18 1202 VISIT LOCKED DATE TIME: PHYSICIAN: PATRICIA MCNAMARA RESOURCE: PATRICIA MCNAMARA REASON FOR APPOINTMENT 1. POST LESI HISTORY OF PRESENT ILLNESS HISTORY OF PRESENT ILLNESS: HERE FOR POST PROCEDURE F/U.HAD L4/5 LESI ON 07/12/18.REPORTS >50% IMPROVEMENT IN PAIN FOR 2 WEEKS THEN PAIN IS SLOWLY RETURNING TO BASELINE. RATING PAIN VAS 7/10.REVIEWED MRI L/S SPINE AND DISCUSSED TREATMENT OPTIONS.SHE IS REFUSING SURGICAL CONSULT.RATING PAIN VAS 7/10. PAIN THE PATIENT DESCRIBES THE PAIN... THE PATIENT DESCRIBES THE PAIN... THE PATIENT DESCRIBES THE PAIN... FALL RISK SCREENING: SCREENING :NO FALLS REPORTED IN THE LAST YEAR CURRENT MEDICATIONS TAKING ABILIFY 5 MG TABLET 1 TABLET ORALLY ONCE A DAY TAKING CETIRIZINE HCL 10 MG TABLET ORALLY ONCE A DAY TAKING LOSARTAN POTASSIUM 25 MG TABLET ORALLY DAILY TAKING MONTELUKAST SODIUM 10 MG TABLET 1 TABLET ORALLY ONCE A DAY TAKING DITROPAN XL 10 MG TABLET EXTENDED RELEASE 24 HOUR 1 TABLET ORALLY ONCE A DAY TAKING OMEPRAZOLE 40 MG CAPSULE DELAYED RELEASE 1 CAPSULE ORALLY FOUR TIMES DAILY TAKING VITAMIN B12 500 TABLET 500 MCG ORALLY DAILY TAKING MULTIVITAMIN 1 TABLET CHEWABLE 1 TAB(S) ORALLY DAILY TAKING CALCIUM CITRATE + 630 MG TABLET 2 TABLET WITH MEALS ORALLY TWICE A DAY TAKING LASIX 40 MG TABLET ORALLY BID TAKING METFORMIN HCL 1000 MG TABLET 1 TABLET WITH MEALS ORALLY TWICE A DAY TAKING WELLBUTRIN 100 MG TABLET 1 TABLET ORALLY TWICE A DAY TAKING IRON 325 MGS 1 TAB ORAL DAILY TAKING CYMBALTA 90 MG CAPSULE DELAYED RELEASE PARTICLES 1 CAPSULE ORALLY 30MG CAP AND 60 MG CAP DAILY TAKING VITAMIN D 1000 UNIT CAPSULE CAPSULE ORALLY ONCE A DAY TAKING COLACE 100 MG CAPSULE 1 CAPSULE NEEDED ORALLY 3X/DAY TAKING FLONASE 50 MCG/ACT SUSPENSION 1 SPRAY IN EACH NOSTRIL NASALLY ONCE A DAY NEEDED TAKING SUMATRIPTAN SUCCINATE 50 MG TABLET 1 TABLET NEEDED ORALLY DIRECTED TAKING AMITRIPTYLINE HCL 25 MG TABLET 1 TABLET ORALLY ONCE A DAY TAKING LYRICA 200 MG CAPSULE 1 CAPSULE ORALLY Q8H TID TAKING CYCLOBENZAPRINE HCL 10 MG TABLET DIRECTED ORALLY Q8H PRN PAIN #30 TAB SHOULD LAST 30 DAYS TAKING GABAPENTIN 800 MG TABLET 1 CAPSULE ORALLY FOR PAIN TID TAKING MS CONTIN 15 MG TABLET EXTENDED RELEASE 1 TABLET ORALLY Q12H BID MDD2 TAKING OXYCODONE HCL 5 MG TABLET 1 TABLET NEEDED ORALLY Q8H PRN MDD3 #50 TAB SHOULD LAST 30 DAYS MEDICATION LIST REVIEWED AND RECONCILED WITH THE PATIENT PAST MEDICAL HISTORY DIABETES HYPERTENSION HYPERCHOLESTEREMIA OBESITY GERD (GASTROESOPHAGEAL REFLUX DISEASE) GASTRIC BYPASS ANXIETY BACK PAIN RIGHT HIP AND KNEE PAIN ALLERGIES SULFA (FOR ALLERGY USE ONLY): RASH - ALLERGY NSAIDS: GASTRIC BYPASS - CONTRAINDICATION SURGICAL HISTORY GASTRIC BYPASS 06/2015 BILAT CARPAL TUNNEL C SECTION CHOLECYSTECTOMY TONSILLECTOMY & ADENOIDECTOMY D&C 10/2017 FAMILY HISTORY FATHER: , DIAGNOSED WITH HEART DISEASE MOTHER: ALIVE, DIABETES, HYPERTENSION 2 BROTHER(S) . 1 SON(S) - HEALTHY. 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 TO GET PATCHES THROUGH HER PRIMARY COUNSELED THE PATIENT ON SMOKING CESSATION, EDUCATION [id number]/11/2019 HOW MANY CIGARETTES A DAY DO YOU SMOKE?11-20 HOW SOON AFTER YOU WAKE UP DO YOU SMOKE YOUR FIRST CIGARETTE?WITHIN 5 MIN HOW OFTEN DO YOU SMOKE CIGARETTES?EVERY DAY PATIENT COUNSELED ON THE DANGERS OF TOBACCO USE AND URGED TO QUIT:07/28/2018 SMOKING CESSATION INFORMATION GIVEN07/12/201807/12 PAMPHLET GIVEN LATEX QUESTIONNAIRE LATEX ALLERGY : HAVE YOU EVER DEVELOPED ANY TYPE OF REACTION AFTER HANDLING LATEX PRODUCTS SUCH RUBBER GLOVES, CONDOMS, DIAPHRAGMS, BALLOONS, SOCKS, OR UNDERWEAR?NO LATEX ALLERGY : HAVE YOU EVER DEVELOPED ANY TYPE OF REACTION DURING OR AFTER DENTAL APPOINTMENT, VAGINAL/RECTAL EXAMINATION, SURGICAL PROCEDURE, OR ANY OTHER EXPOSURE?NO LATEX RISK : HAVE YOU EVER HAD ANY DIFFICULTY BREATHING OR HIVES AFTER EATING OR HANDLING ANY FRUITS, OR VEGETABLES; SUCH KIWI, BANANAS, STONE FRUITS, OR CHESTNUTSNO LATEX RISK : DO YOU HAVE A PREVIOUS PERSONAL HISTORY OF MORE THAN NINE SURGERIES, SPINA BIFIDA, OR REPEATED CATHERTIZATIONS? NO LATEX RISK : ARE YOU FREQUENTLY EXPOSED TO LATEX PRODUCTS IN YOUR OCCUPATION?NO DATE ASKED : 07/12/2018 ALCOHOL SCREENING DID YOU HAVE A DRINK CONTAINING ALCOHOL IN THE PAST YEAR?NO POINTS0 INTERPRETATIONNEGATIVE RECREATIONAL DRUG USE DRUG USE?NO CAFFEINE CAFFEINE USE?YES HOW OFTEN AND HOW MUCH? 2 BOTTLES [place] DEW/DAY ISLAM [id number] NONE LANGUAGE LANGUAGES SPOKEN:STATELESS EDUCATION LEVEL OF EDUCATION:NOT FINISHED COLLEGE LEARNING BARRIERS / SPECIAL NEEDS BARRIERS TO LEARNING?NO HEARING IMPAIRED?NO VISION IMPAIRED?YES WEARS GLASSES :CORRECTIVE LENSES COGNITIVELY IMPAIRED?NO READINESS TO LEARN?YES LEARNING PREFERENCES?NO LEARNING CAPABILITIES PRESENT?YES EMOTIONAL BARRIERS?NO SPECIAL DEVICES?YES :CANE, WALKER TUBERCULOSIS SPECIALIST NEEDED?NO DOMESTIC VIOLENCE DO YOU FEEL SAFE IN YOUR ENVIRONMENT?YES OCCUPATION: DISABLED. DIET: REGULAR. EXERCISE: WALKS. MARITAL STATUS: SINGLE. OTHERS AT HOME: CHILD, OTHER NON-RELATIVE. NEW PATIENT PAIN DIARY TODAY'S VISITNOTES PAIN CLINIC PFS, CLERGY, PUBLIC HEALTH REFERRALS PFS REFERRAL NEEDED?NO CLERGY REFERRAL NEEDED?NO PUBLIC HEALTH REFERRAL NEEDED?NO WAS THE PROVIDER NOTIFIED OF ANY PERTINENT INFO?YES N/A HAS THE PATIENT BEEN EDUCATED REGARDING HIS/HER PLAN OF CARE?YES HAS THE PATIENT BEEN EDUCATED REGARDING PAIN, THE RISK FOR PAIN, THE IMPORTANCE OF EFFECTIVE PAIN MANAGEMENT, AND THE PAIN ASSESSMENT PROCESS?YES ADVANCE DIRECTIVE ADVANCE DIRECTIVE DISCUSSED WITH PATIENT:YES HCP - ARNULFO TAVERAS [phone] REVIEWED WITH PATIENT 01/11/18 0940 JS02/07/18 0905 REVIEWED WITH PT. AD03/31 18 1505 REVIEWED WITH PT. AD04/21/18 1210 REVIEWED WITH PT LASREVIEWED WITH PATIENT 06/15/18 0844 JSREVIEWED WITH PATIENT 07/28/18 1054 JSREVIEWED WITH PT 06/22/18 1432 BV. HOSPITALIZATION/MAJOR DIAGNOSTIC PROCEDURE SURGERIES REVIEW OF SYSTEMS REVIEWED BY: PROVIDER: PATRICIA ROTHMAN . CONSTITUTIONAL: ANY CHANGE IN YOUR MEDICAL CONDITION? NO . CHILLS NO . FEVER NO . INFECTION: DO YOU HAVE NEW INFECTIONS? NO . DO YOU HAVE HISTORY OF MRSA? NO . MUSCULOSKELETAL: ANY NEW PATTERNS OF PAIN OR NUMBNESS? NO . GASTROENTEROLOGY: ANY NEW CHANGE IN BOWEL CONTROL? NO . GENITOURINARY: ANY NEW CHANGE IN BLADDER CONTROL? NO . IS THERE A CHANCE YOU COULD BE ? NO . HEMATOLOGY/LYMPH: DO YOU TAKE ANY BLOOD THINNERS? (FOR EXAMPLE- COUMADIN, PLAVIX, AGGRENOX, PLATEL, PRADAXA, OR XARELTO) NO . WHEN WAS YOUR LAST DOSE? DATE: TIME: . NEUROLOGY: HAVE YOU FALLEN IN THE PAST 12 MONTHS? NO . ANY NEW EXTREMITY NUMBNESS OR WEAKNESS? NO . CARDIOLOGY: DO YOU HAVE A PACEMAKER OR DEFIBRILLATOR? NO . RESPIRATORY: HAVE YOU BEEN SICK IN THE PAST WEEK? NO . FEVER NO . FLU LIKE SYMPTOMS? NO . COUGH NO . INTEGUMENTARY: DO YOU HAVE ANY RASHES OR OPEN SORES? NO . ALLERGIC/IMMUNO: ARE YOU ALLERGIC TO IV DYE? NO . ANY NEW ALLERGIES? NO . PSYCHIATRIC: DO YOU HAVE THOUGHTS OF HURTING YOURSELF OR SOMEONE ELSE? NO . ARE YOU ABUSED, NEGLECTED, OR IN AN UNSAFE ENVIRONMENT? NO . ENDOCRINOLOGY: ARE YOU DIABETIC? YES . OTHER: DO YOU NEED ANY PRESCRIPTIONS? NO . IF YES, PLEASE LIST: ____ . ANY NEW PROBLEMS WITH YOUR MEDICATIONS? NO . WHEN DID YOU LAST EAT? ____ . WHEN DID YOU LAST DRINK? ____ . WHAT DID YOU LAST DRINK? ____ . NAME OF PERSON DRIVING YOU HOME? ____ . DO YOU HAVE ANY OTHER QUESTIONS OR CONCERNS NO . VITAL SIGNS WT 300.2 LBS, HT 60.5 IN, BMI 57.66 INDEX, BP 138/75 MM HG, HR 92 /MIN, RR 18 /MIN, TEMP 98.1 F, OXYGEN SAT % 97%, SAFE IN ENV? (Y/N) YES, NA INITIALS WV 10:51, REVIEWED BY: ROBERTA. EXAMINATION GENERAL EXAMINATION: GENERAL APPEARANCE: AWAKE,ALERT ,PLEAASANT . PSYCH AFFECT NORMAL . LUNGS: LUNG ARORA ARE CLEAR TO AUSCULTATION BILATERALLY. GOOD MOVEMENT OF AIR . HEART: S1, S2 IN A REGULAR RATE AND RHYTHM. NO SIGNIFICANT MURMURS, RUBS OR GALLOPS NOTED . LUMBAR SACRAL SPINE PALPATION: + FOR PAIN OVER L/S SPINE. + FOR PAIN OVER L/S PARASPINALS.POSITIVE SLE AT 45 DEGREES BILAT. NEUROLOGIC EXAM: NORMAL SENSATION LIGHT TOUCH BILAT. LOWER EXTREMITIES. DIAGNOSTIC TESTS REVIEWED MRI L/S SPINE-02/26/17-REVIEWED. ASSESSMENTS SPONDYLOSIS OF LUMBOSACRAL REGION WITHOUT MYELOPATHY OR RADICULOPATHY - M47.817 (PRIMARY) INTERVERTEBRAL DISC DISORDERS WITH RADICULOPATHY, LUMBAR REGION - M51.16 TREATMENT SPONDYLOSIS OF LUMBOSACRAL REGION WITHOUT MYELOPATHY OR RADICULOPATHY NOTES: L4/5 INTRALAMINAR LESI. PREVENTIVE MEDICINE PAIN CLINIC TEACHING: PROCEDURE TEACHING REVIEWED LUMBAR EPIDURAL PROCEDURE INFORMATION WITH PATIENT. ALSO REVIEWED PRE-PROCEDURE INSTRUCTIONS. PATIENT VERBALIZED AN UNDERSTANDING. ERIKA PEDERSON 07/28/2018 4:00:31 PM > . PROCEDURE CODES FA211 ESTABILISHED PATIENT [facility] CHARGE DISPOSITION & COMMUNICATION FOLLOW UP POST (REASON: L4/5 INTRALAMINAR LESI) ELECTRONICALLY SIGNED BY STEPHAN DRAKE ON 08/14/2018 AT 11:53 AM EDT DISCLAIMER : THIS IS A VISIT SUMMARY EXTRACTED FROM THE [employer] CHART. IT IS NOT A COPY OF THE [employer] PROGRESS NOTE. [employer]US
== END ==
LOC: M PAIN 10:15
PROVIDERS: ATTEND Nurse Practitioner Family
DX: M47.817 Spondylosis without myelopathy or radiculopathy, lumbosacral region (principal); M51.16 Intervertebral disc disorders with radiculopathy, lumbar region; E11.9 Type 2 diabetes mellitus without complications; I10 Essential (primary) hypertension; E78.00 Pure hypercholesterolemia, unspecified; K21.9 Gastro-esophageal reflux disease without esophagitis; F41.9 Anxiety disorder, unspecified; F17.210 Nicotine dependence, cigarettes, uncomplicated; E66.01 Morbid (severe) obesity due to excess calories; Z68.43 Body mass index [BMI] 50.0-59.9, adult; Z79.84 Long term (current) use of oral hypoglycemic drugs; Z79.891 Long term (current) use of opiate analgesic; Z79.899 Other long term (current) drug therapy; Z88.2 Allergy status to sulfonamides; Z88.6 Allergy status to analgesic agent; Z98.84 Bariatric surgery status

== ENCOUNTER → 2018-08-10 | Outpatient (REF) | payer OTHER ==
[2018-08-11 12:29] LABS: HEMOGLOBIN A1c 5.9 %
== END ==
LOC: M LABDRAWC 10:57
PROVIDERS: ATTEND Family Medicine
DX: E11.69 Type 2 diabetes mellitus with other specified complication (principal)

== ENCOUNTER → 2018-08-16 | Outpatient (CLI) | payer OTHER ==
[~2018-08-16] MED LIST changes: +ISOVUE-M 300 61% 15ML VIAL (Q9967) As Ordered ONE; +LIDOCAINE 1% SDV INJ 30 ML VIAL As Ordered ONE; +diazePAM 5 MG TAB As Ordered ONE; +diphenhydrAMINE 25 MG CAP As Ordered ONE; +methylPREDNISolone SUSP 40 MG/ML (DEPO-medrol) VIAL (J1030) As Ordered ONE; +oxyCODONE 5MG TAB As Ordered ONE
--- NOTE | 2018-08-29 00:19 | ECWPNPC ---
PATIENT NAME: STELLA TAVERAS : 1975 GENDER: FEMALE VISIT DATE: 08/16/2018 DISCHARGE DATE: 08/16/18 1538 VISIT LOCKED DATE TIME: PHYSICIAN: AMELIA LAI MD RESOURCE: AMELIA LAI MD REASON FOR APPOINTMENT 1. L4/5 INTRALAMINAR LESI HISTORY OF PRESENT ILLNESS HISTORY OF PRESENT ILLNESS: PAIN THE PATIENT DESCRIBES THE PAIN... FALL RISK SCREENING: SCREENING :NO FALLS REPORTED IN THE LAST YEAR CURRENT MEDICATIONS TAKING ABILIFY 5 MG TABLET 1 TABLET ORALLY ONCE A DAY, NOTES: 08/15 9PM TAKING CETIRIZINE HCL 10 MG TABLET ORALLY ONCE A DAY, NOTES: 08/15 9PM TAKING LOSARTAN POTASSIUM 25 MG TABLET ORALLY DAILY, NOTES: 08/16 8AM TAKING MONTELUKAST SODIUM 10 MG TABLET 1 TABLET ORALLY ONCE A DAY, NOTES: 08/16 8AM TAKING DITROPAN XL 10 MG TABLET EXTENDED RELEASE 24 HOUR 1 TABLET ORALLY ONCE A DAY, NOTES: 08/16 8AM TAKING OMEPRAZOLE 40 MG CAPSULE DELAYED RELEASE 1 CAPSULE ORALLY FOUR TIMES DAILY, NOTES: 08/16 8AM TAKING VITAMIN B12 500 TABLET 500 MCG ORALLY DAILY, NOTES: 08/16 8AM TAKING MULTIVITAMIN 1 TABLET CHEWABLE 1 TAB(S) ORALLY DAILY, NOTES: 08/16 8AM TAKING CALCIUM CITRATE + 630 MG TABLET 2 TABLET WITH MEALS ORALLY TWICE A DAY, NOTES: 08/15 4PM TAKING LASIX 40 MG TABLET ORALLY BID, NOTES: 08/15 9AM TAKING METFORMIN HCL 1000 MG TABLET 1 TABLET WITH MEALS ORALLY TWICE A DAY, NOTES: 08/15 9PM TAKING WELLBUTRIN 100 MG TABLET 1 TABLET ORALLY TWICE A DAY, NOTES: 08/16 8AM TAKING IRON 325 MGS 1 TAB ORAL DAILY, NOTES: 08/15 4PM TAKING CYMBALTA 90 MG CAPSULE DELAYED RELEASE PARTICLES 1 CAPSULE ORALLY 30MG CAP AND 60 MG CAP DAILY, NOTES: 08/15 9PM TAKING VITAMIN D 1000 UNIT CAPSULE CAPSULE ORALLY ONCE A DAY, NOTES: 08/16 8AM TAKING COLACE 100 MG CAPSULE 1 CAPSULE NEEDED ORALLY 3X/DAY, NOTES: 08/16 8AM TAKING FLONASE 50 MCG/ACT SUSPENSION 1 SPRAY IN EACH NOSTRIL NASALLY ONCE A DAY NEEDED, NOTES: 08/15 9AM TAKING SUMATRIPTAN SUCCINATE 50 MG TABLET 1 TABLET NEEDED ORALLY DIRECTED, NOTES: 3 MONTHS TAKING AMITRIPTYLINE HCL 25 MG TABLET 1 TABLET ORALLY ONCE A DAY, NOTES: 08/15 9PM TAKING LYRICA 200 MG CAPSULE 1 CAPSULE ORALLY Q8H TID, NOTES: 08/16 8AM TAKING CYCLOBENZAPRINE HCL 10 MG TABLET DIRECTED ORALLY Q8H PRN PAIN #30 TAB SHOULD LAST 30 DAYS, NOTES: 08/14 TAKING GABAPENTIN 800 MG TABLET 1 CAPSULE ORALLY FOR PAIN TID, NOTES: 08/16 8AM TAKING MS CONTIN 15 MG TABLET EXTENDED RELEASE 1 TABLET ORALLY Q12H BID MDD2, NOTES: 08/16 8AM TAKING OXYCODONE HCL 5 MG TABLET 1 TABLET NEEDED ORALLY Q8H PRN MDD3 #50 TAB SHOULD LAST 30 DAYS, NOTES: 08/14 MEDICATION LIST REVIEWED AND RECONCILED WITH THE PATIENT PAST MEDICAL HISTORY DIABETES HYPERTENSION HYPERCHOLESTEREMIA OBESITY GERD (GASTROESOPHAGEAL REFLUX DISEASE) GASTRIC BYPASS ANXIETY BACK PAIN RIGHT HIP AND KNEE PAIN ALLERGIES SULFA (FOR ALLERGY USE ONLY): RASH - ALLERGY NSAIDS: GASTRIC BYPASS - CONTRAINDICATION SURGICAL HISTORY GASTRIC BYPASS 06/2015 BILAT CARPAL TUNNEL C SECTION CHOLECYSTECTOMY TONSILLECTOMY & ADENOIDECTOMY D&C 10/2017 FAMILY HISTORY FATHER: , DIAGNOSED WITH HEART DISEASE MOTHER: ALIVE, DIABETES, HYPERTENSION 2 BROTHER(S) . 1 SON(S) - HEALTHY. 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 EDUCATION LEVEL OF EDUCATION:NOT FINISHED COLLEGE DIET: REGULAR. LANGUAGE LANGUAGES SPOKEN:SAMMARINESE DOMESTIC VIOLENCE DO YOU FEEL SAFE IN YOUR ENVIRONMENT?YES NEW PATIENT PAIN DIARY TODAY'S VISITNOTES RECREATIONAL DRUG USE DRUG USE?NO EXERCISE: WALKS. LEARNING BARRIERS / SPECIAL NEEDS BARRIERS TO LEARNING?NO HEARING IMPAIRED?NO VISION IMPAIRED?YES WEARS GLASSES :CORRECTIVE LENSES COGNITIVELY IMPAIRED?NO READINESS TO LEARN?YES LEARNING PREFERENCES?NO LEARNING CAPABILITIES PRESENT?YES EMOTIONAL BARRIERS?NO SPECIAL DEVICES?YES :[employer] DIRECT[employer] NEEDED?NO PAIN CLINIC PFS, CLERGY, PUBLIC HEALTH REFERRALS PFS REFERRAL NEEDED?NO CLERGY REFERRAL NEEDED?NO PUBLIC HEALTH REFERRAL NEEDED?NO WAS THE PROVIDER NOTIFIED OF ANY PERTINENT INFO?YES N/A HAS THE PATIENT BEEN EDUCATED REGARDING HIS/HER PLAN OF CARE?YES HAS THE PATIENT BEEN EDUCATED REGARDING PAIN, THE RISK FOR PAIN, THE IMPORTANCE OF EFFECTIVE PAIN MANAGEMENT, AND THE PAIN ASSESSMENT PROCESS?YES LATEX QUESTIONNAIRE LATEX ALLERGY : HAVE YOU EVER DEVELOPED ANY TYPE OF REACTION AFTER HANDLING LATEX PRODUCTS SUCH RUBBER GLOVES, CONDOMS, DIAPHRAGMS, BALLOONS, SOCKS, OR UNDERWEAR?NO LATEX ALLERGY : HAVE YOU EVER DEVELOPED ANY TYPE OF REACTION DURING OR AFTER DENTAL APPOINTMENT, VAGINAL/RECTAL EXAMINATION, SURGICAL PROCEDURE, OR ANY OTHER EXPOSURE?NO LATEX RISK : HAVE YOU EVER HAD ANY DIFFICULTY BREATHING OR HIVES AFTER EATING OR HANDLING ANY FRUITS, OR VEGETABLES; SUCH KIWI, BANANAS, STONE FRUITS, OR CHESTNUTSNO LATEX RISK : DO YOU HAVE A PREVIOUS PERSONAL HISTORY OF MORE THAN NINE SURGERIES, SPINA BIFIDA, OR REPEATED CATHERTIZATIONS? NO LATEX RISK : ARE YOU FREQUENTLY EXPOSED TO LATEX PRODUCTS IN YOUR OCCUPATION?NO DATE ASKED : 08/16/2018 CAFFEINE CAFFEINE USE?YES HOW OFTEN AND HOW MUCH? 2 BOTTLES [place] DEW/DAY ADVANCE DIRECTIVE ADVANCE DIRECTIVE DISCUSSED WITH PATIENT:YES HCP - ARNULFO TAVERAS [phone] HOAHAOISM [id number] NONE MARITAL STATUS: SINGLE. ALCOHOL SCREENING DID YOU HAVE A DRINK CONTAINING ALCOHOL IN THE PAST YEAR?NO POINTS0 INTERPRETATIONNEGATIVE OCCUPATION: DISABLED. REVIEWED WITH PATIENT 01/11/18 0940 JS02/07/18 0905 REVIEWED WITH PT. AD03/31 18 1505 REVIEWED WITH PT. AD04/21/18 1210 REVIEWED WITH PT LASREVIEWED WITH PATIENT 06/15/18 0844 JSREVIEWED WITH PATIENT 07/28/18 1054 JSREVIEWED WITH PT 06/22/18 1432 BV. HOSPITALIZATION/MAJOR DIAGNOSTIC PROCEDURE SURGERIES REVIEW OF SYSTEMS REVIEWED BY: PROVIDER: . CONSTITUTIONAL: ANY CHANGE IN YOUR MEDICAL CONDITION? NO . CHILLS NO . FEVER NO . INFECTION: DO YOU HAVE NEW INFECTIONS? NO . DO YOU HAVE HISTORY OF MRSA? YES, 2010 [place] , NO ISSUES, SITE CLOSED, NO REDNESS, NO DRAINAGE. . MUSCULOSKELETAL: ANY NEW PATTERNS OF PAIN OR NUMBNESS? NO . GASTROENTEROLOGY: ANY NEW CHANGE IN BOWEL CONTROL? NO . GENITOURINARY: ANY NEW CHANGE IN BLADDER CONTROL? NO . IS THERE A CHANCE YOU COULD BE ? NO . HEMATOLOGY/LYMPH: DO YOU TAKE ANY BLOOD THINNERS? (FOR EXAMPLE- COUMADIN, PLAVIX, AGGRENOX, PLATEL, PRADAXA, OR XARELTO) NO . WHEN WAS YOUR LAST DOSE? DATE: TIME: . NEUROLOGY: HAVE YOU FALLEN IN THE PAST 12 MONTHS? NO . ANY NEW EXTREMITY NUMBNESS OR WEAKNESS? NO . CARDIOLOGY: DO YOU HAVE A PACEMAKER OR DEFIBRILLATOR? NO . RESPIRATORY: HAVE YOU BEEN SICK IN THE PAST WEEK? NO . FEVER NO . FLU LIKE SYMPTOMS? NO . COUGH NO . INTEGUMENTARY: DO YOU HAVE ANY RASHES OR OPEN SORES? NO . ALLERGIC/IMMUNO: ARE YOU ALLERGIC TO IV DYE? NO . ANY NEW ALLERGIES? NO . PSYCHIATRIC: DO YOU HAVE THOUGHTS OF HURTING YOURSELF OR SOMEONE ELSE? NO . ARE YOU ABUSED, NEGLECTED, OR IN AN UNSAFE ENVIRONMENT? NO . ENDOCRINOLOGY: ARE YOU DIABETIC? NO . OTHER: DO YOU NEED ANY PRESCRIPTIONS? NO . IF YES, PLEASE LIST: ____ . ANY NEW PROBLEMS WITH YOUR MEDICATIONS? NO . WHEN DID YOU LAST EAT? 08/15 7:30PM . WHEN DID YOU LAST DRINK? 08/16 8AM . WHAT DID YOU LAST DRINK? WATER . NAME OF PERSON DRIVING YOU HOME? PETER . DO YOU HAVE ANY OTHER QUESTIONS OR CONCERNS NO . VITAL SIGNS WT 299.8 LBS, HT 60.5 IN, BMI 57.58 INDEX, BP 140/80 MM HG, HR 112 /MIN, RR 18 /MIN, TEMP 97.0 F, OXYGEN SAT % 98%, SAFE IN ENV? (Y/N) Y, NA INITIALS AW 1352, REVIEWED BY: PRETTY. ASSESSMENTS INTERVERTEBRAL DISC DISORDER WITH RADICULOPATHY OF LUMBAR REGION - M51.16 (PRIMARY) PROCEDURES PRE PROCEDURE DIAGNOSIS LUMBAR DISC DISORDER WITH RADICULOPATHY POST PROCEDURE DIAGNOSIS LUMBAR DISC DISORDER WITH RADICULOPATHY PROCEDURE LUMBAR EPIDURAL STEROID INJECTION UNDER FLUOROSCOPIC GUIDANCE SURGEON DR. AMEILA LAI SHUTTLE PREPARATION SUPERVISOR NONE ANESTHESIA LOCAL PRE PROCEDURE NOTE THE PATIENT HAS A HISTORY OF CHRONIC LOW BACK PAIN. I EVALUATED THE PATIENT AND REVIEWED THE CHART. I WENT OVER THE RISKS, ALTERNATIVES, AND BENEFITS ASSOCIATED WITH THIS PROCEDURE. THE PATIENT WOULD LIKE TO PROCEED AND GIVE CONSENT TO PERFORMED THE PROCEDURE. THE PATIENT DENIES UNEXPLAINABLE WEIGHT LOSS, FEVER, CHILLS, OR NEW CHANGES IN URINARY OR BOWEL CONTROL. DESCRIPTION OF PROCEDURE THE PATIENT WAS BROUGHT TO THE PROCEDURE ROOM AND PLACED IN THE PRONE POSITION. THE LUMBOSACRAL AREA WAS CLEANED WITH BETADINE SOLUTION AND DRAPED ASEPTICALLY. THE PROCEDURE WAS DONE UNDER STERILE CONDITIONS. I CHECKED LATERALITY AND THE LEVEL WHERE THE PROCEDURE WAS GOING TO BE PERFORMED WITH THE PATIENT AND THE SUPPORTING STAFF AT THE MOMENT OF THE TIME OUT IN THE PROCEDURE ROOM. UNDER FLUOROSCOPIC GUIDANCE, THE TARGET POINT WAS SELECTED AT THE INTERLAMINAR LEVEL OF L4-L5. LIDOCAINE WAS USED TO NUMB THE SKIN AND THE SUBCUTANEOUS TISSUE BELOW IT. EPIDURAL TUOHY NEEDLE, 17-GAUGE, WAS ADVANCED UNDER FLUOROSCOPIC GUIDANCE AND FOLLOWING PATIENT FEEDBACK UNTIL THE EPIDURAL SPACE WAS REACHED, 7 CM DEEP INTO THE SKIN BY THE LOSS OF RESISTANCE TECHNIQUE. ISOVUE M DYE 30%, 0.25 ML, WAS INJECTED SHOWING ADEQUATE SPREAD OF THE DYE. THEN, A SOLUTION OF 3 ML OF NORMAL SALINE WITH DEPO-MEDROL 60 MG WAS INJECTED SLOWLY FOLLOWING PATIENT FEEDBACK. THERE WAS NO EVIDENCE OF BLOOD, PARESTHESIA OR CEREBROSPINAL FLUID DURING THE PROCEDURE. THE PATIENT WAS SENT TO THE RECOVERY ROOM. THE PATIENT WAS MOVING THE EXTREMITIES AND DOING WELL. THERE WAS NO COMPLICATION DURING THE PROCEDURE. FLUOROSCOPY TIME WAS 6 SECONDS. POST PROCEDURE NOTE THE PATIENT WILL BE SEEN IN A FOLLOW UP IN THE NEXT FEW WEEKS. INSTRUCTIONS WERE GIVEN, QUESTIONS WERE ANSWERED, AND THE PATIENT EXPRESSED UNDERSTANDING AND AGREES WITH THE PLAN. I, AARON WOLFE, DOCUMENTED THE ABOVE INFORMATION ACTING A SCRIBE FOR DR. LAI. I HAVE REVIEWED THE ABOVE DOCUMENT, WRITTEN BY AARON YANES AND I VERIFY THAT IT IS ACCURATE. DIAGNOSTIC IMAGING [facility] FLUORO GUIDE SPINE INJECTION (PAIN)[id number] PROCEDURE CODES 13161 LUMBAR/SACRAL W/ IMAGING 6045F RADXPS IN END [id number] PXD DISPOSITION & COMMUNICATION FOLLOW UP 2 WEEKS ELECTRONICALLY SIGNED BY AMELIA LAI MD, MD ON 08/28/2018 AT 05:04 PM EDT DISCLAIMER : THIS IS A VISIT SUMMARY EXTRACTED FROM THE [employer] CHART. IT IS NOT A COPY OF THE [employer] PROGRESS NOTE. JUSTUS
== END ==
LOC: M PAIN 14:00
PROVIDERS: ATTEND Anesthesiology
DX: G89.29 Other chronic pain (principal); M51.16 Intervertebral disc disorders with radiculopathy, lumbar region; E11.9 Type 2 diabetes mellitus without complications; I10 Essential (primary) hypertension; E78.00 Pure hypercholesterolemia, unspecified; K21.9 Gastro-esophageal reflux disease without esophagitis; F17.210 Nicotine dependence, cigarettes, uncomplicated; E66.01 Morbid (severe) obesity due to excess calories; Z68.43 Body mass index [BMI] 50.0-59.9, adult; Z79.84 Long term (current) use of oral hypoglycemic drugs; Z79.899 Other long term (current) drug therapy; Z88.2 Allergy status to sulfonamides; Z88.6 Allergy status to analgesic agent; Z86.59 Personal history of other mental and behavioral disorders; Z86.14 Personal history of Methicillin resistant Staphylococcus aureus infection; Z98.84 Bariatric surgery status
CPT/HCPCS: 62323; J1030; Q9967

== ENCOUNTER → 2018-08-29 | Outpatient (CLI) | payer OTHER ==
[~2018-08-29] MED LIST changes: -ISOVUE-M 300 61% 15ML VIAL (Q9967) As Ordered ONE; -LIDOCAINE 1% SDV INJ 30 ML VIAL As Ordered ONE; -diazePAM 5 MG TAB As Ordered ONE; -diphenhydrAMINE 25 MG CAP As Ordered ONE; -methylPREDNISolone SUSP 40 MG/ML (DEPO-medrol) VIAL (J1030) As Ordered ONE; -oxyCODONE 5MG TAB As Ordered ONE
--- NOTE | 2018-09-17 01:02 | ECWPNPC ---
PATIENT NAME: STELLA TAVERAS : 1975 GENDER: FEMALE VISIT DATE: 08/29/2018 DISCHARGE DATE: 08/29/18 1427 VISIT LOCKED DATE TIME: PHYSICIAN: PATRICIA MCNAMARA RESOURCE: PATRICIA MCNAMARA REASON FOR APPOINTMENT 1. POST PROC HISTORY OF PRESENT ILLNESS HISTORY OF PRESENT ILLNESS: HERE FOR F/U OF CHRONIC LOW BACK PAIN AND BILATERAL LEG PAIN.HAD LESI-4/5 ON08/16/18.FEELS THIS HAS HELPED LOW BACK PAIN AND RIGHT LEG PAIN INTENSITY.CHIEF AREA OF PAIN IS BILATERAL HIPS.RATING LBP 4/10 AND BILAT. HIP PAIN 8/10. PAIN THE PATIENT DESCRIBES THE PAIN... FALL RISK SCREENING: SCREENING :NO FALLS REPORTED IN THE LAST YEAR CURRENT MEDICATIONS TAKING ABILIFY 5 MG TABLET 1 TABLET ORALLY ONCE A DAY TAKING CETIRIZINE HCL 10 MG TABLET ORALLY ONCE A DAY TAKING LOSARTAN POTASSIUM 25 MG TABLET ORALLY DAILY TAKING MONTELUKAST SODIUM 10 MG TABLET 1 TABLET ORALLY ONCE A DAY TAKING DITROPAN XL 10 MG TABLET EXTENDED RELEASE 24 HOUR 1 TABLET ORALLY ONCE A DAY TAKING OMEPRAZOLE 40 MG CAPSULE DELAYED RELEASE 1 CAPSULE ORALLY FOUR TIMES DAILY TAKING VITAMIN B12 500 TABLET 500 MCG ORALLY DAILY TAKING MULTIVITAMIN 1 TABLET CHEWABLE 1 TAB(S) ORALLY DAILY TAKING CALCIUM CITRATE + 630 MG TABLET 2 TABLET WITH MEALS ORALLY TWICE A DAY TAKING LASIX 40 MG TABLET ORALLY BID TAKING METFORMIN HCL 1000 MG TABLET 1 TABLET WITH MEALS ORALLY TWICE A DAY TAKING WELLBUTRIN 100 MG TABLET 1 TABLET ORALLY TWICE A DAY TAKING IRON 325 MGS 1 TAB ORAL DAILY TAKING CYMBALTA 90 MG CAPSULE DELAYED RELEASE PARTICLES 1 CAPSULE ORALLY 30MG CAP AND 60 MG CAP DAILY TAKING VITAMIN D 1000 UNIT CAPSULE CAPSULE ORALLY ONCE A DAY TAKING COLACE 100 MG CAPSULE 1 CAPSULE NEEDED ORALLY 3X/DAY TAKING FLONASE 50 MCG/ACT SUSPENSION 1 SPRAY IN EACH NOSTRIL NASALLY ONCE A DAY NEEDED TAKING SUMATRIPTAN SUCCINATE 50 MG TABLET 1 TABLET NEEDED ORALLY DIRECTED TAKING AMITRIPTYLINE HCL 25 MG TABLET 1 TABLET ORALLY ONCE A DAY TAKING LYRICA 200 MG CAPSULE 1 CAPSULE ORALLY Q8H TID TAKING CYCLOBENZAPRINE HCL 10 MG TABLET DIRECTED ORALLY Q8H PRN PAIN #30 TAB SHOULD LAST 30 DAYS TAKING GABAPENTIN 800 MG TABLET 1 CAPSULE ORALLY FOR PAIN TID TAKING MS CONTIN 15 MG TABLET EXTENDED RELEASE 1 TABLET ORALLY Q12H BID MDD2 TAKING OXYCODONE HCL 5 MG TABLET 1 TABLET NEEDED ORALLY Q8H PRN MDD3 #50 TAB SHOULD LAST 30 DAYS MEDICATION LIST REVIEWED AND RECONCILED WITH THE PATIENT PAST MEDICAL HISTORY DIABETES HYPERTENSION HYPERCHOLESTEREMIA OBESITY GERD (GASTROESOPHAGEAL REFLUX DISEASE) GASTRIC BYPASS ANXIETY BACK PAIN RIGHT HIP AND KNEE PAIN ALLERGIES SULFA (FOR ALLERGY USE ONLY): RASH - ALLERGY NSAIDS: GASTRIC BYPASS - CONTRAINDICATION SURGICAL HISTORY GASTRIC BYPASS 06/2015 BILAT CARPAL TUNNEL C SECTION CHOLECYSTECTOMY TONSILLECTOMY & ADENOIDECTOMY D&C 10/2017 FAMILY HISTORY FATHER: , DIAGNOSED WITH HEART DISEASE MOTHER: ALIVE, DIABETES, HYPERTENSION 2 BROTHER(S) . 1 SON(S) - HEALTHY. 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 TO GET PATCHES THROUGH HER PRIMARY COUNSELED THE PATIENT ON SMOKING CESSATION, EDUCATION [id number]/13/2019 HOW MANY CIGARETTES A DAY DO YOU SMOKE?11-20 HOW SOON AFTER YOU WAKE UP DO YOU SMOKE YOUR FIRST CIGARETTE?WITHIN 5 MIN HOW OFTEN DO YOU SMOKE CIGARETTES?EVERY DAY PATIENT COUNSELED ON THE DANGERS OF TOBACCO USE AND URGED TO QUIT:08/29/2018 SMOKING CESSATION INFORMATION GIVEN08/16/2018 PAMPHLET GIVEN 08/16/18 OTHERS AT HOME: CHILD, OTHER NON-RELATIVE. EDUCATION LEVEL OF EDUCATION:NOT FINISHED COLLEGE DIET: REGULAR. LANGUAGE LANGUAGES SPOKEN:BERMUDIAN DOMESTIC VIOLENCE DO YOU FEEL SAFE IN YOUR ENVIRONMENT?YES NEW PATIENT PAIN DIARY TODAY'S VISITNOTES RECREATIONAL DRUG USE DRUG USE?NO EXERCISE: WALKS. LEARNING BARRIERS / SPECIAL NEEDS BARRIERS TO LEARNING?NO HEARING IMPAIRED?NO VISION IMPAIRED?YES WEARS GLASSES :CORRECTIVE LENSES COGNITIVELY IMPAIRED?NO READINESS TO LEARN?YES LEARNING PREFERENCES?NO LEARNING CAPABILITIES PRESENT?YES EMOTIONAL BARRIERS?NO SPECIAL DEVICES?YES :[facility] DIRECTOR NEEDED?NO PAIN CLINIC PFS, CLERGY, PUBLIC HEALTH REFERRALS PFS REFERRAL NEEDED?NO CLERGY REFERRAL NEEDED?NO PUBLIC HEALTH REFERRAL NEEDED?NO WAS THE PROVIDER NOTIFIED OF ANY PERTINENT INFO?YES N/A HAS THE PATIENT BEEN EDUCATED REGARDING HIS/HER PLAN OF CARE?YES HAS THE PATIENT BEEN EDUCATED REGARDING PAIN, THE RISK FOR PAIN, THE IMPORTANCE OF EFFECTIVE PAIN MANAGEMENT, AND THE PAIN ASSESSMENT PROCESS?YES LATEX QUESTIONNAIRE LATEX ALLERGY : HAVE YOU EVER DEVELOPED ANY TYPE OF REACTION AFTER HANDLING LATEX PRODUCTS SUCH RUBBER GLOVES, CONDOMS, DIAPHRAGMS, BALLOONS, SOCKS, OR UNDERWEAR?NO LATEX ALLERGY : HAVE YOU EVER DEVELOPED ANY TYPE OF REACTION DURING OR AFTER DENTAL APPOINTMENT, VAGINAL/RECTAL EXAMINATION, SURGICAL PROCEDURE, OR ANY OTHER EXPOSURE?NO LATEX RISK : HAVE YOU EVER HAD ANY DIFFICULTY BREATHING OR HIVES AFTER EATING OR HANDLING ANY FRUITS, OR VEGETABLES; SUCH KIWI, BANANAS, STONE FRUITS, OR CHESTNUTSNO LATEX RISK : DO YOU HAVE A PREVIOUS PERSONAL HISTORY OF MORE THAN NINE SURGERIES, SPINA BIFIDA, OR REPEATED CATHERTIZATIONS? NO LATEX RISK : ARE YOU FREQUENTLY EXPOSED TO LATEX PRODUCTS IN YOUR OCCUPATION?NO DATE ASKED : 08/16/2018 CAFFEINE CAFFEINE USE?YES HOW OFTEN AND HOW MUCH? 2 BOTTLES [place] DEW/DAY ADVANCE DIRECTIVE ADVANCE DIRECTIVE DISCUSSED WITH PATIENT:YES HCP - ARNULFO TAVERAS [phone] YARSANI [id number] NONE MARITAL STATUS: SINGLE. ALCOHOL SCREENING DID YOU HAVE A DRINK CONTAINING ALCOHOL IN THE PAST YEAR?NO POINTS0 INTERPRETATIONNEGATIVE OCCUPATION: DISABLED. REVIEWED WITH PATIENT 01/11/18 0940 JS02/07/18 0905 REVIEWED WITH PT. AD03/31 18 1505 REVIEWED WITH PT. AD04/21/18 1210 REVIEWED WITH PT LASREVIEWED WITH PATIENT 06/15/18 0844 JSREVIEWED WITH PATIENT 08/29/18 1354 JSREVIEWED WITH PATIENT 07/28/18 1054 JSREVIEWED WITH PT 06/22/18 1432 BV. HOSPITALIZATION/MAJOR DIAGNOSTIC PROCEDURE SURGERIES REVIEW OF SYSTEMS REVIEWED BY: PROVIDER: PATRICIA ROTHMAN . CONSTITUTIONAL: ANY CHANGE IN YOUR MEDICAL CONDITION? NO . CHILLS NO . FEVER NO . INFECTION: DO YOU HAVE NEW INFECTIONS? NO . DO YOU HAVE HISTORY OF MRSA? YES, IN 2009 . MUSCULOSKELETAL: ANY NEW PATTERNS OF PAIN OR NUMBNESS? NO . GASTROENTEROLOGY: ANY NEW CHANGE IN BOWEL CONTROL? NO . GENITOURINARY: ANY NEW CHANGE IN BLADDER CONTROL? NO . IS THERE A CHANCE YOU COULD BE ? NO . HEMATOLOGY/LYMPH: DO YOU TAKE ANY BLOOD THINNERS? (FOR EXAMPLE- COUMADIN, PLAVIX, AGGRENOX, PLATEL, PRADAXA, OR XARELTO) NO . WHEN WAS YOUR LAST DOSE? DATE: TIME: . NEUROLOGY: HAVE YOU FALLEN IN THE PAST 12 MONTHS? NO . ANY NEW EXTREMITY NUMBNESS OR WEAKNESS? NO . CARDIOLOGY: DO YOU HAVE A PACEMAKER OR DEFIBRILLATOR? NO . RESPIRATORY: HAVE YOU BEEN SICK IN THE PAST WEEK? NO . FEVER NO . FLU LIKE SYMPTOMS? NO . COUGH NO . INTEGUMENTARY: DO YOU HAVE ANY RASHES OR OPEN SORES? NO . ALLERGIC/IMMUNO: ARE YOU ALLERGIC TO IV DYE? NO . ANY NEW ALLERGIES? NO . PSYCHIATRIC: DO YOU HAVE THOUGHTS OF HURTING YOURSELF OR SOMEONE ELSE? NO . ARE YOU ABUSED, NEGLECTED, OR IN AN UNSAFE ENVIRONMENT? NO . ENDOCRINOLOGY: ARE YOU DIABETIC? YES . OTHER: DO YOU NEED ANY PRESCRIPTIONS? NO . IF YES, PLEASE LIST: ____ . ANY NEW PROBLEMS WITH YOUR MEDICATIONS? NO . WHEN DID YOU LAST EAT? ____ . WHEN DID YOU LAST DRINK? ____ . WHAT DID YOU LAST DRINK? ____ . NAME OF PERSON DRIVING YOU HOME? ____ . DO YOU HAVE ANY OTHER QUESTIONS OR CONCERNS NO . VITAL SIGNS WT 203.8 LBS, HT 60.5 IN, BMI 39.14 INDEX, BP 131/65 MM HG, HR 106 /MIN, RR 18 /MIN, TEMP 97.6 F, OXYGEN SAT % 96, SAFE IN ENV? (Y/N) YES, NA INITIALS CA 13:52, REVIEWED BY: ROBERTA. EXAMINATION GENERAL EXAMINATION: GENERAL APPEARANCE:AWAKE,ALERT ,PLEAASANT . PSYCHAFFECT NORMAL . LUNGS:LUNG ARORA ARE CLEAR TO AUSCULTATION BILATERALLY. GOOD MOVEMENT OF AIR . HEART:S1, S2 IN A REGULAR RATE AND RHYTHM. NO SIGNIFICANT MURMURS, RUBS OR GALLOPS NOTED . 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 TREATMENT INTERVERTEBRAL DISC DISORDER WITH RADICULOPATHY OF LUMBAR REGION CONTINUE AMITRIPTYLINE HCL TABLET, 25 MG, 1 TABLET, ORALLY, ONCE A DAY CONTINUE CYCLOBENZAPRINE HCL TABLET, 10 MG, DIRECTED, ORALLY, Q8H PRN PAIN #30 TAB SHOULD LAST 30 DAYS CONTINUE LYRICA CAPSULE, 200 MG, 1 CAPSULE, ORALLY, Q8H TID STOP MS CONTIN TABLET EXTENDED RELEASE, 15 MG, 1 TABLET, ORALLY, Q12H BID MDD2 CONTINUE OXYCODONE HCL TABLET, 5 MG, 1 TABLET NEEDED, ORALLY, Q8H PRN MDD3 #50 TAB SHOULD LAST 30 DAYS CONTINUE GABAPENTIN TABLET, 800 MG, 1 CAPSULE, ORALLY FOR PAIN, TID START BELBUCA 300 MCG FILM, 300 MCG, 1 FILM, BUCCAL, Q12H, 30 DAY(S), 60, REFILLS 1 NOTES: [employer]ISTRY REVIEWED AND DEMONSTRATES COMPLLIANCE. (REF [id number]) BRINGS IN MEDICATIONS WHICH IS APPROPRIATE FOR WHAT WAS DISPENSED. RECENT URINE TOXICOLOGY REVIEWED. NO UNAUTHORIZED MEDICATIONS. NO ILLICIT SUBSTANCES AND PRESCRIBED MEDICATIONS WERE PRESENT. , RISKS AND BENEFITS OF NARCOTIC/OPIOD MEDICATIONS WERE REVIEWED WITH PATIENT - THIS INCLUDES BUT IS NOT LIMITED TO RISK OF DEPENDANCE/DEVELOPMENT OF ADDICTION, MOOD DISTURBANCE AND DEPRESSION, OSTEOPOROSIS, HORMONAL AND LABIDAL CHANGES, RESPIRATORY DEPRESSION AND . PATIENT IS ADVISED NOT TO DRIVE OR DRINK ALCOHOL WHILE ON THESE MEDICATIONS. PROCEDURE CODES FA211 ESTABILISHED PATIENT [facility] CHARGE DISPOSITION & COMMUNICATION FOLLOW UP 2 MONTHS/THIS WEEK 830 AM PILL EVAL ELECTRONICALLY SIGNED BY STEPHAN DRAKE ON 09/14/2018 AT 05:31 PM EDT DISCLAIMER : THIS IS A VISIT SUMMARY EXTRACTED FROM THE [employer] CHART. IT IS NOT A COPY OF THE [employer] PROGRESS NOTE. MTDD
== END ==
LOC: M PAIN 14:00
PROVIDERS: ATTEND Nurse Practitioner Family
DX: M51.16 Intervertebral disc disorders with radiculopathy, lumbar region (principal); M47.817 Spondylosis without myelopathy or radiculopathy, lumbosacral region; G89.29 Other chronic pain; E11.9 Type 2 diabetes mellitus without complications; I10 Essential (primary) hypertension; E78.00 Pure hypercholesterolemia, unspecified; K21.9 Gastro-esophageal reflux disease without esophagitis; Z98.84 Bariatric surgery status; Z86.59 Personal history of other mental and behavioral disorders; F17.210 Nicotine dependence, cigarettes, uncomplicated; Z88.2 Allergy status to sulfonamides; Z88.6 Allergy status to analgesic agent; Z86.14 Personal history of Methicillin resistant Staphylococcus aureus infection; Z79.84 Long term (current) use of oral hypoglycemic drugs; Z79.891 Long term (current) use of opiate analgesic; Z79.899 Other long term (current) drug therapy

== ENCOUNTER → 2018-09-02 | Outpatient (CLI) | payer OTHER | LOC: M PAIN 08:30 | PROVIDERS: ATTEND Nurse Practitioner Family | DX: M51.16 Intervertebral disc disorders with radiculopathy, lumbar region (principal); M47.817 Spondylosis without myelopathy or radiculopathy, lumbosacral region ==

== ENCOUNTER → 2018-09-14 | Outpatient (CLI) | payer OTHER ==
[~2018-09-14] MED LIST changes: +CONRAY-43 43% 50ML VIAL (Q9960) As Ordered ONE; +LIDOCAINE 1% MDV 20ML VIAL As Ordered ONE; +methylPREDNISolone SUSP 40 MG/ML (DEPO-medrol) VIAL (J1030) As Ordered ONE
--- NOTE | 2018-09-14 14:17 | REP ---
Reason For Exam/Comment: Unilateral primary osteoarthritis of the right hip Procedure: Right hip arthrocentesis The procedure was performed by MICHAEL Montanez, under the direct supervision of Dr. Pagan. The benefits and risks including but not limited to pain, infection, bleeding and anaphylaxis were explained to the patient and informed consent was obtained both verbally and written. Directly prior to the start of the procedure, a formal timeout was completed in the procedure room. The right femoral neck was localized using fluoroscopic guidance. The skin was prepped and draped in the usual sterile fashion. 10 mL of 1% lidocaine was used as a local anesthetic. Using fluoroscopic guidance a 22-gauge spinal needle was inserted and advanced to the right femoral neck joint space. 1 mL of Conray 43 was injected to verify needle placement. A 7 mL solution containing a 5 mL 1% lidocaine 10 mg/ml and 2 ml of Depo-Medrol 40 mg/ml was injected into the joint. The needle was removed and hemostasis was achieved. The patient tolerated the procedure well and there were no immediate complications. 0.4 minutes of fluoroscopy time was utilized for this procedure. Reviewed by MICHAEL Moore 09/14/2018 12:21 P Electronically Signed by Scott Pagan MD 09/14/2018 02:09 P
== END ==
LOC: M RADPRO 09:25
PROVIDERS: ATTEND Physician Assistant
DX: M16.11 Unilateral primary osteoarthritis, right hip (principal)
CPT/HCPCS: 20610; 77002; J1030; Q9960

== ENCOUNTER → 2018-09-22 | Outpatient (REF) | payer OTHER ==
[~2018-09-22] MED LIST changes: -CONRAY-43 43% 50ML VIAL (Q9960) As Ordered ONE; -LIDOCAINE 1% MDV 20ML VIAL As Ordered ONE; -methylPREDNISolone SUSP 40 MG/ML (DEPO-medrol) VIAL (J1030) As Ordered ONE
[2018-09-23 12:07] LABS: HEMATOCRIT 44.5 % (36.0-47.0); HEMOGLOBIN 14.8 g/dl (12.0-15.5); MEAN CORPUSCULAR HEMOGLOBIN 31.6 pg (27.0-33.0); MEAN CORPUSCULAR HGB CONC 33.3 g/dl (32.0-36.5); MEAN CORPUSCULAR VOLUME 95.1 fl (80.0-96.0); PLATELET COUNT, AUTOMATED 383 10^3/uL (150-450); RED BLOOD COUNT 4.68 10^6/uL (4.00-5.40)
[2018-09-23 12:14] LABS: WHITE BLOOD COUNT 16.6 10^3/uL (4.0-10.0)
[2018-09-23 12:50] LABS: ALBUMIN 3.4 GM/DL (3.2-5.2); ALT/SGPT 25 U/L (12-78); BILIRUBIN,TOTAL 0.3 MG/DL (0.2-1.0); BLOOD UREA NITROGEN 11 MG/DL (7-18); CARBON DIOXIDE LEVEL 25 MEQ/L (21-32); CHLORIDE LEVEL 109 MEQ/L (98-107); CREATININE FOR GFR 0.78 MG/DL (0.55-1.30); FERRITIN 44 NG/ML (8-252); GLOMERULAR FILTRATION RATE > 60.0 (>58); GLUCOSE, FASTING 90 MG/DL (70-100); IRON (FE) 88 UG/DL (50-170); PERCENT SATURATION 29.6 % (13.2-45.0); PHOSPHORUS LEVEL 3.3 MG/DL (2.5-4.9); POTASSIUM SERUM 5.5 MEQ/L (3.5-5.1); SODIUM LEVEL 141 MEQ/L (136-145); TOTAL IRON BINDING CAPACITY 297 UG/DL (250-450); TOTAL PROTEIN 7.3 GM/DL (6.4-8.2)
[2018-09-23 13:07] LABS: EOSINOPHILS 2 % (0-5); LYMPHOCYTES 44 % (16-52); NEUTROPHILS 54 % (35-75)
[2018-09-23 13:08] LABS: PLATELET ESTIMATE NORMAL (NORMAL)
[2018-09-23 13:10] LABS: HEMATOCRIT 44.5 % (36.0-47.0)
[2018-09-23 13:22] LABS: TOTAL 25(OH) VITAMIN D 49.3 NG/ML (30.0-100.0)
[2018-09-23 13:23] LABS: VITAMIN B12 LEVEL 322 PG/ML (247-911)
[2018-09-23 14:38] LABS: HEMOGLOBIN A1c 5.8 %
== END ==
LOC: M LAB REF 11:35
PROVIDERS: ATTEND Surgery
DX: K91.2 Postsurgical malabsorption, not elsewhere classified (principal); Z98.84 Bariatric surgery status; E55.9 Vitamin D deficiency, unspecified

== ENCOUNTER 2018-09-27 09:44 | Outpatient (RCR) | payer OTHER ==
[2018-10-10] MEDS ORDERED: FAMO1TAB11 (19:26)
[2018-10-10] MEDS ORDERED: LYRI200C PO (19:26)
[2018-10-10] MEDS ORDERED: ARIP1TAB4 (19:26)
[2018-10-10] MEDS ORDERED: MISO200T56 (19:26)
== END 2018-10-16 ==
LOC: M PT 09:44
PROVIDERS: ATTEND Physician Assistant
DX: M17.11 Unilateral primary osteoarthritis, right knee (principal); I89.0 Lymphedema, not elsewhere classified

== ENCOUNTER 2018-10-10 16:28 | Emergency (ER) | payer OTHER ==
[~2018-10-10] VITALS: Ht 154.9 cm; Wt 133.6 kg
[2018-10-10] MEDS ORDERED: MISO200T56 (19:26)
[2018-10-10] MEDS ORDERED: FAMO1TAB11 (19:26)
[2018-10-10] MEDS ORDERED: ARIP1TAB4 (19:26)
[2018-10-10] MEDS ORDERED: LYRI200C PO (19:26)
[2018-10-10 21:29] VITALS: BP 120/72
--- NOTE | 2018-10-11 05:58 | REP ---
Clinical: Wheezing . Comparison: 07/27/2018 . Technique: PA and lateral. Findings: The mediastinum and cardiac silhouette are normal. The lung barry are clear and without acute consolidation, effusion, or pneumothorax. The skeletal structures are intact and normal. Impression: 1. No acute cardiopulmonary process. Electronically Signed by Milad Momin MD 10/11/2018 05:49 A
== END 2018-10-10 21:33 | disposition home or self-care (01) ==
LOC: M ED 16:28
DX: J06.9 Acute upper respiratory infection, unspecified (principal); H92.09 Otalgia, unspecified ear; E11.9 Type 2 diabetes mellitus without complications; I10 Essential (primary) hypertension; K21.9 Gastro-esophageal reflux disease without esophagitis; F41.9 Anxiety disorder, unspecified; F32.9 Major depressive disorder, single episode, unspecified; M54.9 Dorsalgia, unspecified; G47.30 Sleep apnea, unspecified; G43.909 Migraine, unspecified, not intractable, without status migrainosus; E78.5 Hyperlipidemia, unspecified; F17.210 Nicotine dependence, cigarettes, uncomplicated; Z88.2 Allergy status to sulfonamides; Z88.6 Allergy status to analgesic agent; Z79.899 Other long term (current) drug therapy; Z79.84 Long term (current) use of oral hypoglycemic drugs; Z79.891 Long term (current) use of opiate analgesic; Z98.84 Bariatric surgery status

== ENCOUNTER → 2018-10-13 | Outpatient (CLI) | payer OTHER ==
[~2018-10-13] MED LIST changes: +ARIP1TAB4; +FAMO1TAB11; +LYRI200C PO
[2018-10-13 08:48] LABS: HEMATOCRIT 42.6 % (36.0-47.0); HEMOGLOBIN 13.9 g/dl (12.0-15.5); MEAN CORPUSCULAR HEMOGLOBIN 30.5 pg (27.0-33.0); MEAN CORPUSCULAR HGB CONC 32.6 g/dl (32.0-36.5); MEAN CORPUSCULAR VOLUME 93.6 fl (80.0-96.0); PLATELET COUNT, AUTOMATED 358 10^3/uL (150-450); RED BLOOD COUNT 4.55 10^6/uL (4.00-5.40); WHITE BLOOD COUNT 13.9 10^3/uL (4.0-10.0)
[2018-10-13 09:04] LABS: ATYPICAL LYMPH 2 % (0-5); BASOPHILS 1 % (0-4); EOSINOPHILS 8 % (0-5); LYMPHOCYTES 35 % (16-52); MONOCYTES 5 % (0-8); NEUTROPHILS 49 % (35-75)
[2018-10-13 09:05] LABS: PLATELET ESTIMATE NORMAL (NORMAL)
[2018-10-13 09:06] LABS: BLOOD UREA NITROGEN 10 MG/DL (7-18); CALCIUM LEVEL 8.9 MG/DL (8.5-10.1); CARBON DIOXIDE LEVEL 25 MEQ/L (21-32); CHLORIDE LEVEL 108 MEQ/L (98-107); CREATININE FOR GFR 0.86 MG/DL (0.55-1.30); GLOMERULAR FILTRATION RATE > 60.0 (>58); GLUCOSE, FASTING 92 MG/DL (70-100); POTASSIUM SERUM 4.1 MEQ/L (3.5-5.1); SODIUM LEVEL 140 MEQ/L (136-145)
== END ==
LOC: M LAB 07:52
PROVIDERS: ATTEND Surgery
DX: D72.829 Elevated white blood cell count, unspecified (principal); E87.5 Hyperkalemia

== ENCOUNTER → 2018-10-19 | Outpatient (CLI) | payer OTHER ==
[~2018-10-19] MED LIST changes: +CONRAY-43 43% 50ML VIAL (Q9960) As Ordered ONE; +CYAN500T8 PO; +LIDOCAINE 1% MDV 20ML VIAL As Ordered ONE; -VITA500T3 PO; +methylPREDNISolone SUSP 40 MG/ML (DEPO-medrol) VIAL (J1030) As Ordered ONE
--- NOTE | 2018-10-19 16:24 | REP ---
Reason For Exam/Comment: Osteoarthritis of the left hip Procedure: Left hip arthrocentesis The procedure was performed by MICHAEL Montanez, under the direct supervision of Dr. Pagan. The benefits and risks including but not limited to pain, infection, bleeding and anaphylaxis were explained to the patient and informed consent was obtained both verbally and written. Directly prior to the start of the procedure, a formal timeout was completed in the procedure room. The left femoral neck was localized using fluoroscopic guidance. The skin was prepped and draped in the usual sterile fashion. 9 mL of 1% lidocaine was used as a local anesthetic. Using fluoroscopic guidance a 22-gauge spinal needle was inserted and advanced to the left femoral neck joint space . 1 mL of Conray 43 was injected to verify needle placement. A 7 mL solution containing a 5 mL 1% lidocaine 10 mg/ml and 2 ml of Depo-Medrol and 40 mg/ml was injected into the joint. The needle was removed and hemostasis was achieved. The patient tolerated the procedure well and there were no immediate complications. 0.3 minutes of fluoroscopy time was utilized for this procedure. Some fluoroscopic images are performed with last image hold technology. These images require no additional radiation. Reviewed by MICHAEL Moore 10/19/2018 12:45 P Electronically Signed by Scott Pagan MD 10/19/2018 04:14 P
== END ==
LOC: M RADPRO 09:52
PROVIDERS: ATTEND Physician Assistant
DX: M16.12 Unilateral primary osteoarthritis, left hip (principal)
CPT/HCPCS: 20610; 77002; J1030; Q9960

== ENCOUNTER → 2018-10-27 | Outpatient (CLI) | payer OTHER ==
[~2018-10-27] MED LIST changes: +ALDA25TA2 PO; -AMIT25TA; +AMIT25TA PO; -ARIP1TAB4; +ARIP1TAB4 PO; -ARTI99.0; +ARTIDRO2 OU; -BUPR100T3; +BUPR100T3 PO; +BUSP10TA PO; +CEFD300CAP PO; +CHOL50003 PO; -CONRAY-43 43% 50ML VIAL (Q9960) As Ordered ONE; -CYCL10TA; +CYCL10TA PO; -DOCU100C16; +DULO60CA35 PO; -FAMO1TAB11; +FAMO1TAB11 PO; -FENO145T13 PO; +FENO145T7 PO; +FLUTISP NARES; -FURO40TA2; +FURO40TA2 PO; +GABA800T4 PO; +IRON65TA2 PO; +LASI40TA9 PO; -LIDOCAINE 1% MDV 20ML VIAL As Ordered ONE; -LYRI200C OR; +METF-877 PO; +MIRA0.254 PO; +MISO200T56 PO; -MORP-38 PO; +MORP-69 PO; +MORP15TA2 PO; +MORP15TASA PO; +NICO14PA TD; +NICO2GUM PO; +OMEP1CAP73 PO; -OMEP40CA2; +OMEP40CA97; +OXYC-517 PO; +PRAMIPEXOLE PO; -SIMV20TA2 PO; +SIMV20TA22 PO; +SPIR-10 PO; -methylPREDNISolone SUSP 40 MG/ML (DEPO-medrol) VIAL (J1030) As Ordered ONE
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
== END ==
LOC: M PAIN 13:00
PROVIDERS: ATTEND Nurse Practitioner Family
DX: M51.16 Intervertebral disc disorders with radiculopathy, lumbar region (principal); E11.9 Type 2 diabetes mellitus without complications; I10 Essential (primary) hypertension; E78.00 Pure hypercholesterolemia, unspecified; E66.9 Obesity, unspecified; K21.9 Gastro-esophageal reflux disease without esophagitis; F41.9 Anxiety disorder, unspecified; M25.551 Pain in right hip; F17.210 Nicotine dependence, cigarettes, uncomplicated; Z79.84 Long term (current) use of oral hypoglycemic drugs; Z79.891 Long term (current) use of opiate analgesic; Z79.899 Other long term (current) drug therapy; Z98.84 Bariatric surgery status; Z88.2 Allergy status to sulfonamides; Z88.5 Allergy status to narcotic agent

== ENCOUNTER 2018-11-14 11:37 | Outpatient (RCR) | payer OTHER ==
[~2018-11-14 11:37] MED LIST changes: -ALDA25TA2 PO; +AMIT25TA; -AMIT25TA PO; +ARIP1TAB4; -ARIP1TAB4 PO; +ARTI99.0; -ARTIDRO2 OU; +BUPR100T3; -BUPR100T3 PO; -BUSP10TA PO; -CEFD300CAP PO; -CHOL50003 PO; +CYCL10TA; -CYCL10TA PO; +DOCU100C16; -DULO60CA35 PO; +FAMO1TAB11; -FAMO1TAB11 PO; +FENO145T13 PO; -FENO145T7 PO; -FLUTISP NARES; +FURO40TA2; -FURO40TA2 PO; -GABA800T4 PO; -IRON65TA2 PO; -LASI40TA9 PO; +LYRI200C OR; -METF-877 PO; -MIRA0.254 PO; -MISO200T56 PO; +MORP-38 PO; -MORP-69 PO; -MORP15TA2 PO; -MORP15TASA PO; -NICO14PA TD; -NICO2GUM PO; -OMEP1CAP73 PO; +OMEP40CA2; -OMEP40CA97; -OXYC-517 PO; -PRAMIPEXOLE PO; +SIMV20TA2 PO; -SIMV20TA22 PO; -SPIR-10 PO
== END 2018-11-16 ==
LOC: M PT 11:37
PROVIDERS: ATTEND Physician Assistant
DX: I89.0 Lymphedema, not elsewhere classified (principal); M17.11 Unilateral primary osteoarthritis, right knee

== ENCOUNTER → 2018-12-03 | Outpatient (REF) | payer OTHER ==
[~2018-12-03] MED LIST changes: -ARIP1TAB4; +ARIP1TAB4 PO; -ARTI99.0; +ARTIDRO2; +BUSP10TA PO; +CHOL50003 PO; +IRON65TA2 PO; +MISO200T56 PO; -MORP-38 PO; +MORP-69 PO; +MORP15TA2 PO; +OXYC-517 PO; +PRAMIPEXOLE PO
[2018-12-03 21:53] LABS: APPEARANCE, URINE TURBID (CLEAR); BACTERIA, URINE AUTO 2+ (NEGATIVE); BILIRUBIN, URINE AUTO NEGATIVE (NEGATIVE); BLOOD, URINE BLOOD 1+ (NEGATIVE); CALCIUM OXALATE CRYSTALS LARGE; COLOR, URINE AMBER (YELLOW); GLUCOSE, URINE (UA) AUTO NEGATIVE (NEGATIVE); KETONE, URINE AUTO NEGATIVE (NEGATIVE); LEUKOCYTE ESTERASE, URINE AUTO 3+ (NEGATIVE); NITRITE, URINE AUTO NEGATIVE (NEGATIVE); PROTEIN, URINE AUTO 2+ mg/dL (NEGATIVE); RBC, URINE AUTO 43 /HPF (0-3); SPECIFIC GRAVITY URINE AUTO 1.026 (1.002-1.035); SQUAMOUS EPITHELIAL CELL UR AU 9 /HPF (0-6); UROBILINOGEN, URINE AUTO 0.2 mg/dL (0.0-2.0); WBC, URINE AUTO TNTC /HPF (0-3)
== END ==
LOC: M LAB REF 12:30
PROVIDERS: ATTEND Physician Assistant Medical
DX: N39.0 Urinary tract infection, site not specified (principal)

== ENCOUNTER → 2018-12-06 | Outpatient (CLI) | payer OTHER ==
[~2018-12-06] MED LIST changes: -AMIT25TA; +AMIT25TA PO; -ARTIDRO2; +ARTIDRO2 OU; -BUPR100T3; +BUPR100T3 PO; -CYCL10TA; +CYCL10TA PO; -DOCU100C16; +DULO60CA35 PO; -FAMO1TAB11; +FAMO1TAB11 PO; +FLUTISP NARES; -FURO40TA2; +FURO40TA2 PO; +GABA800T4 PO; -LYRI200C OR; +METF-877 PO; +MIRA0.254 PO; +MORP15TASA PO; +OMEP20CA4 PO
== END ==
LOC: M PAIN 11:15
PROVIDERS: ATTEND Anesthesiology
DX: M51.16 Intervertebral disc disorders with radiculopathy, lumbar region (principal); Z53.21 Procedure and treatment not carried out due to patient leaving prior to being seen by health care provider

== ENCOUNTER 2018-12-12 09:10 | Day surgery (SDC) | payer OTHER ==
[~2018-12-12] VITALS: Ht 154.9 cm; Wt 135.6 kg
[~2018-12-12 09:10] MED LIST changes: +AMIT25TA; -AMIT25TA PO; +ARTIDRO2; -ARTIDRO2 OU; +BUPR100T3; -BUPR100T3 PO; +CYCL10TA; -CYCL10TA PO; +DOCU100C16; -DULO60CA35 PO; +FAMO1TAB11; -FAMO1TAB11 PO; -FLUTISP NARES; +FURO40TA2; -FURO40TA2 PO; -GABA800T4 PO; +LIDOCAINE 2% INJ 100 MG/5 ML SDV (FOR ANES.) As Ordered ONE; +LYRI200C OR; -METF-877 PO; -MIRA0.254 PO; -MORP15TASA PO; +NS 1,000 ML IV ONE; -OMEP20CA4 PO; +PROPOFOL 200 MG/20 ML VIAL As Ordered ONE
--- NOTE | 2018-12-12 10:17 | ROOR ---
Patient Name: Mara Mccray Procedure Date: 12/12/2018 10:02 AM Date of : 1975 Age: 43 Room: [facility] Gender: Female Note Status: Finalized Procedure: Upper Endoscopy + Biopsies Indications: Dysphagia, Heartburn Providers: Maninder Howell MD Referring MD: ORVILLE BROWN MD Requesting Provider: Medicines: Monitored Anesthesia Care Complications: No immediate complications. Procedure: Pre-Anesthesia Assessment: - The heart rate, respiratory rate, oxygen saturations, blood pressure, adequacy of pulmonary ventilation, and response to care were monitored throughout the procedure. The Endoscope was introduced through the mouth, and advanced to the second part of duodenum. The upper GI endoscopy was accomplished without difficulty. The patient tolerated the procedure well. Findings: The Z-line was irregular and was found 40 cm from the incisors. Multiple biopsies were obtained with cold forceps for evaluation to rule out Orr's Esophagus randomly at the gastroesophageal junction. A small hiatal hernia was present. There is no endoscopic evidence of stricture in the entire esophagus. Evidence of a gastric bypass was found. A gastric pouch with a small size was found containing ulceration. This was traversed. The [id number] limb was characterized by ulceration. The exam was otherwise without abnormality. Impression: - Z-line irregular, 40 cm from the incisors. - Small hiatal hernia. - Gastric bypass with a small-sized pouch. - The examination was otherwise normal. - Multiple biopsies were obtained at the gastroesophageal junction. - The examination was otherwise normal. Recommendation: - Discharge patient to home. - Resume previous diet. - Use Prilosec (omeprazole) 40 mg PO daily. - Await pathology results. - Telephone GI clinic for pathology results in 1 week. - Return to referring physician. - The findings and recommendations were discussed with the patient's family. Maninder Howell MD Maninder Howell MD 12/12/2018 10:17:15 AM Electronically signed by Maninder Howell MD Number of Addenda: 0 Note Initiated On: 12/12/2018 10:02 AM Estimated Blood Loss: Estimated blood loss: none.
[2018-12-12 10:40] VITALS: BP 136/78
== END 2018-12-12 10:49 | disposition home or self-care (01) ==
LOC: M OPP 09:10
PROVIDERS: ATTEND Internal Medicine Gastroenterology
DX: K22.8 Other specified diseases of esophagus (principal); K44.9 Diaphragmatic hernia without obstruction or gangrene; Z98.84 Bariatric surgery status; R13.10 Dysphagia, unspecified; R12 Heartburn; G47.30 Sleep apnea, unspecified; Z79.84 Long term (current) use of oral hypoglycemic drugs; Z79.891 Long term (current) use of opiate analgesic; Z79.899 Other long term (current) drug therapy; Z88.2 Allergy status to sulfonamides; Z88.8 Allergy status to other drugs, medicaments and biological substances; F17.210 Nicotine dependence, cigarettes, uncomplicated

== ENCOUNTER → 2018-12-22 | Outpatient (CLI) | payer OTHER ==
[~2018-12-22] MED LIST changes: +ISOVUE-M 300 61% 15ML VIAL (Q9967) As Ordered ONE; +LIDOCAINE 1% SDV INJ 30 ML VIAL As Ordered ONE; -LIDOCAINE 2% INJ 100 MG/5 ML SDV (FOR ANES.) As Ordered ONE; -NS 1,000 ML IV ONE; -PROPOFOL 200 MG/20 ML VIAL As Ordered ONE; +diazePAM 5 MG TAB As Ordered ONE; +diphenhydrAMINE 25 MG CAP As Ordered ONE; +methylPREDNISolone SUSP 40 MG/ML (DEPO-medrol) VIAL (J1030) As Ordered ONE; +oxyCODONE 5MG TAB As Ordered ONE
--- NOTE | 2018-12-22 15:29 | REP ---
Partial lumbar spine series: Three views . History: Injection procedure for pain. 21 seconds of fluoroscopy time is reported. Findings: A sequence of three fluoroscopically obtained last image hold procedural spot radiographs of the lumbar spine document needle position and contrast injection associated with injection procedure. Electronically Signed by Biju Bui MD 12/22/2018 03:21 P
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
== END ==
LOC: M PAIN 12:00
PROVIDERS: ATTEND Anesthesiology
DX: M51.16 Intervertebral disc disorders with radiculopathy, lumbar region (principal); E11.9 Type 2 diabetes mellitus without complications; I10 Essential (primary) hypertension; E78.00 Pure hypercholesterolemia, unspecified; E66.9 Obesity, unspecified; K21.9 Gastro-esophageal reflux disease without esophagitis; Z98.84 Bariatric surgery status; F41.9 Anxiety disorder, unspecified; M17.11 Unilateral primary osteoarthritis, right knee; M16.11 Unilateral primary osteoarthritis, right hip; Z68.43 Body mass index [BMI] 50.0-59.9, adult; F17.210 Nicotine dependence, cigarettes, uncomplicated; Z90.49 Acquired absence of other specified parts of digestive tract; Z79.891 Long term (current) use of opiate analgesic; Z79.899 Other long term (current) drug therapy; Z88.2 Allergy status to sulfonamides; Z88.6 Allergy status to analgesic agent
CPT/HCPCS: 62323; J1030; Q9967

== ENCOUNTER 2019-01-06 08:55 | Emergency (ER) | payer OTHER ==
[~2019-01-06] VITALS: Ht 154.9 cm; Wt 131.8 kg
[~2019-01-06 08:55] MED LIST changes: -AMIT25TA; +AMIT25TA PO; -ARTIDRO2; +ARTIDRO2 OU; -BUPR100T3; +BUPR100T3 PO; -CYCL10TA; +CYCL10TA PO; -DOCU100C16; -FAMO1TAB11; +FAMO1TAB11 PO; -FURO40TA2; +FURO40TA2 PO; -ISOVUE-M 300 61% 15ML VIAL (Q9967) As Ordered ONE; -LIDOCAINE 1% SDV INJ 30 ML VIAL As Ordered ONE; -LYRI200C OR; -diazePAM 5 MG TAB As Ordered ONE; -diphenhydrAMINE 25 MG CAP As Ordered ONE; -methylPREDNISolone SUSP 40 MG/ML (DEPO-medrol) VIAL (J1030) As Ordered ONE; -oxyCODONE 5MG TAB As Ordered ONE
[2019-01-06 10:07] LABS: HEMATOCRIT 41.4 % (36.0-47.0); HEMOGLOBIN 13.6 g/dl (12.0-15.5); MEAN CORPUSCULAR HEMOGLOBIN 30.8 pg (27.0-33.0); MEAN CORPUSCULAR HGB CONC 32.9 g/dl (32.0-36.5); MEAN CORPUSCULAR VOLUME 93.7 fl (80.0-96.0); PLATELET COUNT, AUTOMATED 361 10^3/uL (150-450); RED BLOOD COUNT 4.42 10^6/uL (4.00-5.40)
[2019-01-06] MEDS ORDERED: NS 1,000 ML IV ONE (10:15)
--- NOTE | 2019-01-06 10:20 | REP ---
CHEST, SINGLE VIEW: There is no evidence of acute infiltrate. No pleural effusion is seen. The heart is normal in size. The mediastinal silhouette is unremarkable. The visualized osseous structures are intact. IMPRESSION: No acute pulmonary disease. Electronically Signed by Scott Pagan MD 01/06/2019 06:32 P
[2019-01-06 10:27] LABS: WHITE BLOOD COUNT 14.3 10^3/uL (4.0-10.0)
[2019-01-06 10:31] LABS: ATYPICAL LYMPH 1 % (0-5); EOSINOPHILS 4 % (0-3); LYMPHOCYTES 40 % (16-44); MONOCYTES 7 % (0-5); PLATELET ESTIMATE NORMAL (NORMAL)
[2019-01-06 10:41] LABS: BLOOD UREA NITROGEN 6 MG/DL (7-18); CALCIUM LEVEL 9.3 MG/DL (8.5-10.1); CARBON DIOXIDE LEVEL 25 MEQ/L (21-32); CHLORIDE LEVEL 108 MEQ/L (98-107); CK-MB VALUE MASS 3.2 NG/ML (<3.6); CPK CREATINE PHOSPHOKINASE 92 U/L (26-192); CREATININE FOR GFR 0.79 MG/DL (0.55-1.30); FREE T4 0.96 NG/DL (0.76-1.46); GLOMERULAR FILTRATION RATE > 60.0 (>58); GLUCOSE, FASTING 83 MG/DL (70-100); MAGNESIUM LEVEL 1.8 MG/DL (1.8-2.4); MB/CK RELATIVE INDEX 3.48 (< OR =4); POTASSIUM SERUM 3.8 MEQ/L (3.5-5.1); SODIUM LEVEL 142 MEQ/L (136-145); TROPONIN I < 0.02 NG/ML (< 0.10)
[2019-01-06 11:22] LABS: NEUTROPHILS 48 % (28-66)
[2019-01-06 13:09] VITALS: BP 127/72
--- NOTE | 2019-01-06 19:09 | ECGEPIP ---
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
== END 2019-01-06 13:34 | disposition home or self-care (01) ==
LOC: M ED 08:55
DX: R55 Syncope and collapse (principal); I10 Essential (primary) hypertension; E78.5 Hyperlipidemia, unspecified; F33.9 Major depressive disorder, recurrent, unspecified; F41.9 Anxiety disorder, unspecified; K21.9 Gastro-esophageal reflux disease without esophagitis; G43.909 Migraine, unspecified, not intractable, without status migrainosus; G47.30 Sleep apnea, unspecified; M51.9 Unspecified thoracic, thoracolumbar and lumbosacral intervertebral disc disorder; Z98.84 Bariatric surgery status; Z79.899 Other long term (current) drug therapy; Z79.84 Long term (current) use of oral hypoglycemic drugs; Z88.1 Allergy status to other antibiotic agents; Z88.2 Allergy status to sulfonamides; Z88.8 Allergy status to other drugs, medicaments and biological substances; F17.210 Nicotine dependence, cigarettes, uncomplicated

== ENCOUNTER → 2019-01-13 | Outpatient (CLI) | payer OTHER ==
[~2019-01-13] MED LIST changes: +ALDA25TA2 PO; +CEFD300CAP PO; +DULO60CA35 PO; +FLUTISP NARES; +GABA800T4 PO; +LASI40TA9 PO; +METF-877 PO; +MIRA0.254 PO; +MORP15TASA PO; +NICO14PA TD; +NICO2GUM PO; +OMEP20CA4 PO; +SPIR-10 PO
== END ==
LOC: M PAIN 13:45
PROVIDERS: ATTEND Nurse Practitioner Family
DX: M51.16 Intervertebral disc disorders with radiculopathy, lumbar region (principal); M47.897 Other spondylosis, lumbosacral region; Z79.899 Other long term (current) drug therapy

== ENCOUNTER 2019-01-14 10:05 | Emergency (ER) | payer OTHER ==
[~2019-01-14] VITALS: Ht 154.9 cm; Wt 135.0 kg
[~2019-01-14 10:05] MED LIST changes: -ALDA25TA2 PO; -CEFD300CAP PO; -DULO60CA35 PO; -FENO145T13 PO; +FENO145T7 PO; -FLUTISP NARES; -GABA800T4 PO; -LASI40TA9 PO; -METF-877 PO; -MIRA0.254 PO; -MORP15TASA PO; -NICO14PA TD; -NICO2GUM PO; -OMEP20CA4 PO; -OMEP40CA2; +OMEP40CA97; -SIMV20TA2 PO; +SIMV20TA22 PO; -SPIR-10 PO
[2019-01-14 12:09] VITALS: BP 110/58
[2019-01-14] MEDS ORDERED: ACETAMINOPHEN TAB 650MG DOSE (2X325MG) PO ONE (12:15)
--- NOTE | 2019-01-14 13:01 | REP ---
LEFT FOOT COMPLETE: 01/14/2019. Clinical history: Trauma. Findings: Four views are provided. There is diffuse swelling about the lower leg and ankle. Plantar Achilles insertional spurs. Subtalar joints intact. The talonavicular and calcaneocuboid joints are normal. Tarsal bones articulations unremarkable. There is no visible fracture or avulsion involving the metatarsals. Some minor spurring at the first MTP joint. The other MTP joints at all IP joints are intact. Impression: 1. Heel spurs and minor degenerative changes at the first MTP joint. No acute fracture. Electronically Signed by Cirilo Wadsworth MD 01/14/2019 07:37 P
[2019-01-15] MEDS ORDERED: DULO60CA35 PO (18:46)
[2019-01-15] MEDS ORDERED: MORP15TASA PO (18:46)
[2019-01-15] MEDS ORDERED: METF-877 PO (18:46)
[2019-01-15] MEDS ORDERED: CARA1TAB6 PO (18:46)
[2019-01-15] MEDS ORDERED: GABA800T4 PO (18:46)
[2019-01-15] MEDS ORDERED: VENTAER INH (18:46)
[2019-01-15] MEDS ORDERED: OMEP1CAP73 PO (18:51)
[2019-01-15] MEDS ORDERED: FLUTISP NARES (18:51)
[2019-01-15] MEDS ORDERED: MIRA0.254 PO (18:51)
== END 2019-01-14 12:14 | disposition home or self-care (01) ==
LOC: M ED 10:05
DX: S90.122A Contusion of left lesser toe(s) without damage to nail, initial encounter (principal); W06.XXXA Fall from bed, initial encounter; Y92.009 Unspecified place in unspecified non-institutional (private) residence as the place of occurrence of the external cause; M19.072 Primary osteoarthritis, left ankle and foot; M77.9 Enthesopathy, unspecified; E11.9 Type 2 diabetes mellitus without complications; I10 Essential (primary) hypertension; G43.909 Migraine, unspecified, not intractable, without status migrainosus; G47.30 Sleep apnea, unspecified; F41.9 Anxiety disorder, unspecified; F32.9 Major depressive disorder, single episode, unspecified; F17.210 Nicotine dependence, cigarettes, uncomplicated; Z79.84 Long term (current) use of oral hypoglycemic drugs; Z79.891 Long term (current) use of opiate analgesic; Z79.899 Other long term (current) drug therapy; Z88.2 Allergy status to sulfonamides; Z88.6 Allergy status to analgesic agent

== ENCOUNTER 2019-01-15 13:47 | Inpatient (IN) | payer OTHER ==
[~2019-01-15] VITALS: Ht 154.9 cm; Wt 135.0 kg
[~2019-01-15 13:47] MED LIST changes: +FENO145T13 PO; -FENO145T7 PO; +OMEP40CA2; -OMEP40CA97; +SIMV20TA2 PO; -SIMV20TA22 PO
[2019-01-15 14:41] LABS: BASO # 0.1 10^3/uL (0.0-0.2); BASO % 0.4 % (0.0-1.0); EOS # 0.4 10^3/uL (0.0-0.5); EOS % 2.5 % (0.0-3.0); HEMATOCRIT 44.5 % (36.0-47.0); HEMOGLOBIN 14.7 g/dl (12.0-15.5); LYMPH # 3.6 10^3/uL (1.5-5.0); LYMPH % 25.2 % (24.0-44.0); MEAN CORPUSCULAR HEMOGLOBIN 31.5 pg (27.0-33.0); MEAN CORPUSCULAR VOLUME 95.3 fl (80.0-96.0); MONO # 1.1 10^3/uL (0.0-0.8); MONO % 8.1 % (0.0-5.0); NEUTROPHILS % 63.4 % (36.0-66.0); RED BLOOD COUNT 4.67 10^6/uL (4.00-5.40); WHITE BLOOD COUNT 14.2 10^3/uL (4.0-10.0)
[2019-01-15 15:22] LABS: PLATELET COUNT, AUTOMATED 241 10^3/uL (150-450)
[2019-01-15 15:47] LABS: ALBUMIN 3.4 GM/DL (3.2-5.2); ALT/SGPT 43 U/L (12-78); BILIRUBIN,DIRECT 0.2 MG/DL (0.0-0.2); BILIRUBIN,TOTAL 0.6 MG/DL (0.2-1.0); BLOOD UREA NITROGEN 13 MG/DL (7-18); CALCIUM LEVEL 9.4 MG/DL (8.5-10.1); CARBON DIOXIDE LEVEL 22 MEQ/L (21-32); CHLORIDE LEVEL 108 MEQ/L (98-107); CPK CREATINE PHOSPHOKINASE 1123 U/L (26-192); CREATININE FOR GFR 0.93 MG/DL (0.55-1.30); GLOMERULAR FILTRATION RATE > 60.0 (>58); GLUCOSE, FASTING 106 MG/DL (70-100); MB/CK RELATIVE INDEX 1.42 (< OR =4); NT-PRO BNP 20 PG/ML (<125); POTASSIUM SERUM 4.2 MEQ/L (3.5-5.1); SODIUM LEVEL 137 MEQ/L (136-145); TOTAL PROTEIN 7.7 GM/DL (6.4-8.2); TROPONIN I < 0.02 NG/ML (< 0.10)
[2019-01-15] MEDS ORDERED: FUROSEMIDE 40 MG/4 ML VIAL (J1940) IV ONE (16:30)
[2019-01-15 16:46] LABS: C REACTIVE PROTEIN QUANTITATIV 6.12 MG/DL (0.00-0.30)
[2019-01-15 17:10] LABS: ERYTHROCYTE SEDIMENTATION RATE 17 mm/hr (0-20)
[2019-01-15] MEDS ORDERED: ACETAMINOPHEN TAB 650MG DOSE (2X325MG) PO PRN (18:15)
[2019-01-15] MEDS ORDERED: GLUCOSE 4 GM CHEW TABLET PO PRN (18:30)
[2019-01-15] MEDS ORDERED: GLUCAGON FOR INJ 1 MG VIAL (J1610) SC PRN (18:30)
[2019-01-15] MEDS ORDERED: DEXTROSE 50% 50 ML SYRINGE IV PRN (18:30)
[2019-01-15] MEDS ORDERED: MORP15TASA PO (18:46)
[2019-01-15] MEDS ORDERED: GABA800T4 PO (18:46)
[2019-01-15] MEDS ORDERED: VENTAER INH (18:46)
[2019-01-15] MEDS ORDERED: METF-877 PO (18:46)
[2019-01-15] MEDS ORDERED: CARA1TAB6 PO (18:46)
[2019-01-15] MEDS ORDERED: DULO60CA35 PO (18:46)
[2019-01-15] MEDS ORDERED: OMEP20CA4 PO (18:51)
[2019-01-15] MEDS ORDERED: FLUTISP NARES (18:51)
[2019-01-15] MEDS ORDERED: MIRA0.254 PO (18:51)
[2019-01-15] MEDS ORDERED: ALBUTEROL 90 MCG/ACT 8GM HFA INHALER INH PRN (20:45)
[2019-01-15] MEDS ORDERED: FLUTICASONE PROP 0.05% NASAL SPRAY 16 GM (FLONASE) NARES PRN (20:45)
[2019-01-15] MEDS ORDERED: CYCLOBENZAPRINE 10 MG TAB PO PRN (20:45)
[2019-01-15] MEDS ORDERED: POLYVINYL ALCOHOL OPHTH SOLN 15 ML(LIQUITEARS) OU PRN (20:45)
[2019-01-15] MEDS: HumaLOG INSULIN (NovoLOG) PER UNIT SC SCH (21:00)
[2019-01-15] MEDS: DOCUSATE SODIUM 100 MG CAP PO SCH (21:26)
[2019-01-15] MEDS: SUCRALFATE 1 GM TAB PO SCH (21:26)
[2019-01-15] MEDS: DULoxetine 30 MG CAP (CYMBALTA) PO SCH (21:27)
[2019-01-15] MEDS: AMITRIPTYLINE 25 MG TAB PO SCH (21:29)
[2019-01-15] MEDS: PRAMIPEXOLE 0.25 MG TAB PO SCH (21:29)
[2019-01-15] MEDS: miSOPROStol 200 MCG TAB (S0191) PO SCH (21:29)
[2019-01-15] MEDS: PREGABALIN 100 MG CAP (LYRICA) PO SCH (21:29)
[2019-01-15] MEDS: GABAPENTIN 400 MG CAP PO SCH (21:30)
[2019-01-15] MEDS: MORPHINE 15 MG SA TAB PO SCH (21:30)
[2019-01-15] MEDS: OMEPRAZOLE 20 MG CAP PO SCH (21:30)
[2019-01-15] MEDS: CETIRIZINE (ZyrTEC) 10 MG TAB PO SCH (21:31)
[2019-01-15] MEDS: FAMOTIDINE 20 MG TAB PO SCH (21:31)
[2019-01-15] MEDS: buPROPion (WELLBUTRIN SR) 100 MG SR TAB PO SCH (21:31)
--- NOTE | 2019-01-15 21:44 | HPEPDOC ---
General Date of Admission Jan 15, 2019 at 18:14 Date of Service: Jan 15, 2019 Attending Physician: JESE DAN MD Chief Complaint The patient is a 43-year-old female admitted with a reason for visit of Lymphedema. Source: Patient Exam Limitations: No limitations Timing/Duration: Week(s) Severity: Severe Associated Symptoms: Mechanical fall, Other (difficulty walking, bilateral leg pain) History of Present Illness Ms. Mccray is a 43 yo woman with morbid obesity, diabetes, hypertension, RYAN, COPD, asthma, active smoker, depression, hyperlipidemia, chronic lymphedema who presented to the emergency room with failure to walk due to worsening lymphedema in the setting of having stopped taking her lasix and wrapping her legs for the last 6 weeks. She reports having psychosocial stressors particularly the separation from her estranged /significant other that has left her technically homeless living in a halfway and it was with all these unfortunate circumstances that she stopped taking her diuretic and wrapping her legs. She reports that she has taken all her other medications as directed except the diuretic and leg wraps. She otherwise denies worsening shortness of breath, orthopnea, paroxysmal nocturnal dyspnea, chest pain, palpitations, fevers, chills or poor PO. Home Medications Scheduled Amitriptyline HCl (Amitriptyline HCl) 25 Mg Tab, 25 MG PO QHS, (Reported) Aripiprazole (Aripiprazole) 2 Mg Tablet, 2 MG PO DAILY, (Reported) Bupropion Hcl (Bupropion HCl Sr) 100 Mg Tab, 100 MG PO BID, (Reported) Cetirizine HCl (Cetirizine HCl) 10 Mg Tab, 10 MG PO QHS, (Reported) Cholecalciferol (Vitamin D3) (Vitamin D3) 5,000 Unit Capsule, 5,000 UNITS PO DAILY, (Reported) Docusate Sodium (Docusate Sodium) 100 Mg Cap, 100 MG PO TID, (Reported) Duloxetine HCl (Duloxetine HCl) 60 Mg Capsule.dr, 60 MG PO QHS, (Reported) 90MG TOTAL Duloxetine Hcl (Duloxetine HCl) 30 Mg Cap, 30 MG PO QHS, (Reported) 90MG TOTAL Famotidine (Famotidine) 20 Mg Tablet, 20 MG PO BID, (Reported) Ferrous Sulfate (Iron) 325 Mg Tablet, 325 MG PO DAILY, (Reported) Furosemide (Furosemide) 40 Mg Tab, 40 MG PO BID, (Reported) Gabapentin (Gabapentin) 800 Mg Tablet, 800 MG PO TID, (Reported) Losartan Potassium (Losartan Potassium) 25 Mg Tab, 25 MG PO DAILY, (Reported) Metformin HCl (Metformin HCl) 1,000 Mg Tablet, 1,000 MG PO BID, (Reported) Misoprostol (Misoprostol) 200 Mcg Tablet, 400 MCG PO BID, (Reported) Montelukast Sodium (Montelukast Sodium) 10 Mg Tab, 10 MG PO DAILY, (Reported) Morphine Sulfate (Morphine Sulfate ER) 15 Mg Tablet.er, 15 MG PO Q12H, (Reported) Omeprazole (Omeprazole) 20 Mg Capsule.dr, 20 MG PO BID, (Reported) Oxybutynin Chloride (Ditropan Xl) 10 Mg Tab, 10 MG PO DAILY, (Reported) Pramipexole Di-HCl (Mirapex) 0.25 Mg Tablet, 0.25 MG PO BID, (Reported) Pregabalin (Lyrica) 200 Mg Cap, 200 MG PO TID, (Reported) Sucralfate (Carafate) 1 Gm Tablet, 1 GM PO ACHS, (Reported) Scheduled PRN Albuterol Sulfate (Ventolin Hfa) 18 Gm Hfa.aer.ad, 2 PUFF INH Q4H PRN for SOB/ WHEEZING, (Reported) Cyclobenzaprine HCl (Cyclobenzaprine HCl) 10 Mg Tab, 10 MG PO Q8H PRN for MUSCLE SPASMS, (Reported) Fluticasone Propionate (Fluticasone Propionate) 16 Gm [place].susp, 2 SPRAY NARES DAILY PRN for CONGESTION, (Reported) Oxycodone HCl (Oxycodone HCl) 5 Mg Tab, 5 MG PO Q8H PRN for PAIN, (Reported) Polyvinyl Alcohol (Artificial Tears) 1.4 % [place], 1 DROP OU QID PRN for DRY EYES, (Reported) Allergies Coded Allergies: Sulfa (Sulfonamide Antibiotics) (Verified Allergy, Intermediate, rash, 01/14/19) NSAIDS (Non-Steroidal Anti-Inflamma (Verified Adverse Reaction, Intermediate, Due to gastric bypass, 01/14/19) Past Medical History Medical History morbid obesity, diabetes, hypertension, RYAN, COPD, asthma, active smoker, depression, hyperlipidemia, chronic lymphedema Surgical History adenoidectomy, tonsillectomy, cholecystectomy, Family History Significant Family History: No pertinent family hx Social History * Smoker: current smoker, less than 1 pack/day Alcohol: Denies Drugs: denies Recent Travel/Sick Contacts: Denies: Recent travel, Recent sick contacts Psychosocial History: Depression, Emotional problems A-FIB/CHADSVASC A-FIB History Current/History of A-Fib/PAF?: No Current PO Anticoag Therapy: No Age/Risk Factor Scoring CHADSVASC: CHADSVASC Response (Comments) Value Age Risk Factor Age < 65 years old 0 Gender Risk Factor Female 1 Hx of CHF No 0 Hx of HTN Yes 1 Hx of Stroke/TIA/or VTE No 0 Hx of Diabetes Yes 1 Hx of Vascular Disease Yes 1 Total 4 Treatment Treatment ordered: NONE Reason Anticoagulant not given: Not indicated/[id number] Review of Systems Constitutional: Denies: Chills, Fever, Night Sweats Eyes: Denies: Pain, Vision change ENT: Denies: Head Aches, Ear Pain, Dysphagia Skin: Reports: Breakdown, Other; Denies: Rash, Lesions Pulmonary: Denies: Dyspnea, Cough Cardiovascular: Reports: Edema; Denies: Chest Pain, Palpitations, Orthopnea, Paroxysmal Noc. Dyspnea, Lt Headedness Gastrointestinal: Denies: Nausea, Vomiting, Abdominal Pain, Diarrhea Genitourinary: Denies: Dysuria, Frequency, Incontinence, Retention Hematologic: Denies: Bruising, Bleeding Excessively Endocrine: Denies: Polydipsia, Polyphagia, Polyuria, Heat Intolerance, Cold Intolerance, Other Endocrine Sx Musculoskeletal: Reports: Back Pain, Leg Pain, Foot Pain, Joint Pain Neurological: Reports: Incoordination; Denies: Weakness, Numbness, Change in speech, Confusion Psych: Reports: Depression Physical Examination General Exam: Positive: Alert, No Acute Distress Eye Exam: Positive: PERRLA, Conjunctiva & lids normal, EOMI; Negative: Sclera icteric ENT Exam: Positive: Atraumatic, Mucous membr. moist/pink, Other ENT (very poor dentition with mostly missing teeth) Neck Exam: Positive: Supple (thick); Negative: thyromegaly, Lymphadenopathy Chest Exam: Positive: Clear to auscultation, Normal air movement Heart Exam: Positive: Rate Normal, Regular Rhythm, Normal S1, Normal S2; Negative: Murmurs, Rubs Abdomen Exam: Positive: Normal bowel sounds, Soft, Other (obese); Negative: Tenderness, Hepatospenomegaly Extremity Exam: Positive: Edema, Normal pulses, Tenderness, Swelling, Other (bilateral legs with tense edema with few open weeping bullae, tense skin); Negative: Clubbing, Cyanosis Skin Exam: Positive: Breakdown, Lesion, Other skin issue ( few open weeping bullae on edematous tense lower extremity skin) Neuro Exam: Positive: Normal Speech, Strength at 5/5 X4 ext, Cranial Nerves 3- 12 NL Psych Exam: Positive: Mental status NL, Mood NL, Oriented x 3 Vital Signs Vital Signs Date Time Temp Pulse Resp B/P (MAP) Pulse Ox O2 Delivery O2 Flow Rate FiO2 01/15/19 19:45 104 18 121/70 (87) 99 Room Air 01/15/19 13:48 97.8 Laboratory Data Labs 24H Laboratory Tests 2 01/15/19 13:58: Immature Granulocyte % (Auto) 0.4, White Blood Count 14.2H, Red Blood Count 4.67, Hemoglobin 14.7, Hematocrit 44.5, Mean Corpuscular Volume 95.3, Mean Corpuscular Hemoglobin 31.5, Mean Corpuscular Hemoglobin Concent 33.0, Red Cell Distribution Width 13.2, Platelet Count 241, Neutrophils (%) (Auto) 63.4, Lymphocytes (%) (Auto) 25.2, Monocytes (%) (Auto) 8.1H, Eosinophils (%) (Auto) 2.5, Basophils (%) (Auto) 0.4, Neutrophils # (Auto) 9.0H, Lymphocytes # (Auto) 3.6, Monocytes # (Auto) 1.1H, Eosinophils # (Auto) 0.4, Basophils # (Auto) 0.1, Nucleated Red Blood Cells % (auto) 0.0, Erythrocyte Sedimentation Rate 17, Anion Gap 7L, Glomerular Filtration Rate > 60.0, Calcium Level 9.4, Aspartate Amino Transf (AST/SGOT) 44H, Alanine Aminotransferase (ALT/SGPT) 43, Alkaline Phosphatase 109, Total Bilirubin 0.6, Direct Bilirubin 0.2, Total Creatine Kinase 1123H, Creatine Kinase MB 16.0H, Creatine Kinase MB Relative Index 1.42, Troponin I < 0.02, C-Reactive Protein, Quantitative 6.12H, SS-Odg-D-Type Natriuretic Peptide 20, Total Protein 7.7, Albumin 3.4, Albumin/Globulin Ratio 0.79L, Thyroid Stimulating Hormone (TSH) 2.930, Human Chorionic Gonadotropin, Quant 3 01/15/19 14:06: Bedside Glucose (Misc Panel) 113H 01/15/19 14:23: POC Beta HCG, Quantitative 5.1 01/15/19 15:41: Bedside Glucose (Misc Panel) 120H 01/15/19 17:27: Urine Color YELLOW, Urine Appearance HAZY, Urine pH 6.0, Urine Specific [place] 1.014, Urine Protein NEGATIVE, Urine Glucose (UA) NEGATIVE, Urine Ketones NEGATIVE, Urine Blood NEGATIVE, Urine Nitrite POSITIVEH, Urine Bilirubin NEGATIVE, Urine Urobilinogen 0.2, Urine Leukocyte Esterase 1+H, Urine WBC (Auto) 23H, Urine RBC (Auto) 40H, Urine Hyaline Casts (Auto) 0, Urine Bacteria (Auto) 3+H, Urine Squamous Epithelial Cells 1, Urine Amorphous Sediment MODERATEH, Urine Mucus (Auto) SMALL, Urine Sperm (Auto) CBC/BMP Laboratory Tests 01/15/19 13:58 Red Blood Count 4.67, Mean Corpuscular Volume 95.3, Mean Corpuscular Hemoglobin 31.5, Mean Corpuscular Hemoglobin Concent 33.0, Red Cell Distribution Width 13.2, Neutrophils (%) (Auto) 63.4, Lymphocytes (%) (Auto) 25.2, Monocytes (%) (Auto) 8.1 H, Eosinophils (%) (Auto) 2.5, Basophils (%) (Auto) 0.4, Neutrophils # (Auto) 9.0 H, Lymphocytes # (Auto) 3.6, Monocytes # (Auto) 1.1 H, Eosinophils # (Auto) 0.4, Basophils # (Auto) 0.1 Microbiology Microbiology 01/15/19 Urine Culture, Received Pending Assessment/Plan 43 yo woman with chornic lymphedema who presents to the hospital unable to ambulate due to massive tense lower extremity lymphedema in the setting of six weeks of non adherence to her diuretic and leg wraps, in a time of psychosocial difficulty with separation from her significant other with precarious housing. Plan: Tense severe lower extremity lymphedema: -lasix 40 IV BID -PT consult for leg wrapping -leg elevation when supine or sitting -physical therapy for ambulation -Currently no evidence of infection, will continue to monitor Diabetes: -SSI -hold home metformin -hypoglycemia protocol -FSBG AC/HS Frequent falls: likely secondary to LE edema and severe neuropathy with loss of proprioception -CT head to r/o intracranial pathology given history of multiple falls -Vit B12, B6, iron Peripheral neuropathy: -Gabapentin 900 TID -Lyrica 200 TID -duloxetine 90 QHS Chronic pain -continue MS contin 15 BID -Oxy 5Q4H PRN -Flexeril 10Q8H PRN -Otherwise continue all home meds DVT prophylaxis: lovenox 40 QD Diet: 2g sodium, consistent carbohydrate Plan / VTE VTE Prophylaxis Ordered?: Yes JESE DAN MD Jan 15, 2019 21:44
--- NOTE | 2019-01-15 22:04 | REPVR ---
PROCEDURE INFORMATION: Exam: CT Head without contrast Exam date and time: 01/15/19 (9:00pm) Clinical history: 43 year old female. Frequent falls. Initial encounter. Concussion / head injury. Consciousness not specified. Recently hit head on dresser. TECHNIQUE: Imaging protocol: Computed tomography of the head without contrast. Radiation optimization: All CT scans at this facility use at least one of these dose optimization techniques: automated exposure control; mA and/or kV adjustment per patient size (includes targeted exams where dose is matched to clinical indication); or iterative reconstruction. COMPARISON: Thyroid, ST head+neck US of 09/15/17 FINDINGS: Brain: Unremarkable. No acute hemorrhage. Unremarkable white matter. No mass effect. Ventricles: Normal. No ventriculomegaly. Bones/joints: Unremarkable. No acute fracture. Sinuses: Visualized sinuses are unremarkable. No fluid levels. Mastoid air cells: Visualized mastoid air cells are well aerated. Soft tissues: Unremarkable. IMPRESSION: No acute intracranial pathology is appreciated. Electronically signed by: Kim Perez On 01/15/2019 22:03:48 PM
[2019-01-15 22:07] VITALS: BP 143/90
[2019-01-16 02:00] VITALS: BP 140/86
[2019-01-16 06:00] VITALS: BP 118/80
[2019-01-16 06:30] LABS: HEMATOCRIT 36.8 % (36.0-47.0); MEAN CORPUSCULAR HEMOGLOBIN 30.9 pg (27.0-33.0); MEAN CORPUSCULAR VOLUME 91.1 fl (80.0-96.0); PLATELET COUNT, AUTOMATED 246 10^3/uL (150-450); RED BLOOD COUNT 4.04 10^6/uL (4.00-5.40); WHITE BLOOD COUNT 11.4 10^3/uL (4.0-10.0)
[2019-01-16 06:32] LABS: HEMOGLOBIN 12.5 g/dl (12.0-15.5)
[2019-01-16 07:01] LABS: BLOOD UREA NITROGEN 9 MG/DL (7-18); CALCIUM LEVEL 8.7 MG/DL (8.5-10.1); CARBON DIOXIDE LEVEL 27 MEQ/L (21-32); CHLORIDE LEVEL 104 MEQ/L (98-107); CREATININE FOR GFR 0.67 MG/DL (0.55-1.30); GLOMERULAR FILTRATION RATE > 60.0 (>58); GLUCOSE, FASTING 106 MG/DL (70-100); MAGNESIUM LEVEL 1.7 MG/DL (1.8-2.4); POTASSIUM SERUM 2.9 MEQ/L (3.5-5.1); SODIUM LEVEL 140 MEQ/L (136-145)
[2019-01-16 07:13] LABS: ANISOCYTOSIS 1+; LYMPHOCYTES 50 % (16-44); MONOCYTES 8 % (0-5); NEUTROPHILS 42 % (28-66); PLATELET ESTIMATE NORMAL (NORMAL)
--- NOTE | 2019-01-16 07:43 | REP ---
AP PORTABLE CHEST: 01/15/2019. Comparison: 01/06/2019. Clinical history: Altered mental status. Findings: Lordotic portable technique limits evaluation of posterior and lower lung zones. With that said, the lung baryr are without acute infiltrate or effusion. The heart, mediastinal and hilar contours are grossly unremarkable. Aorta and airway intact. Bones intact. No free air. Impression: 1. Negative portable AP chest. Lordotic projection limits evaluation of the posterior and lower lung zones. Electronically Signed by Cirilo Wadsworth MD 01/16/2019 08:58 A
[2019-01-16] MEDS: SUCRALFATE 1 GM TAB PO SCH ×4 (07:48→20:50)
[2019-01-16] MEDS: HumaLOG INSULIN (NovoLOG) PER UNIT SC SCH ×4 (07:49→20:51)
[2019-01-16] MEDS ORDERED: POTASSIUM CHLORIDE 10 MEQ SR TABLET PO ONE ×2 (08:00→16:00)
--- NOTE | 2019-01-16 08:18 | IPNPDOC ---
Text Note Date of Service The patient was seen on 01/16/19. NOTE Subjective: -Slept ok, no complaints at this time Objective: General Exam: Alert, No Acute Distress, morbidly obese Eye Exam: PERRLA, Conjunctiva & lids normal, EOMI, anicteric ENT Exam: Atraumatic, dry MM, poor dentition Neck Exam: Thick, Supple, no palpable adenopathy Chest Exam: Clear to auscultation, Normal air movement Heart Exam: Rate Normal, Regular Rhythm, Normal S1, Normal S2, no murmurs or rubs Abdomen Exam: Obese, Normal bowel sounds, Soft, no tenderness, no hepatospenomegaly Extremity Exam: Tense LE edema bilaterally, Normal pulses, tender to palpation, no cyanosis Skin Exam: some LE Breakdown with a few open weeping bullae on edematous tense lower extremity skin Neuro Exam: Normal Speech, Strength at 5/5 X4 ext, Cranial Nerves 3-12 NL Psych Exam: Mental status NL, Mood NL, Oriented x 3 Assessment/Plan 43 yo woman with chornic lymphedema who presents to the hospital unable to ambulate due to massive tense lower extremity lymphedema in the setting of six weeks of non adherence to her diuretic and leg wraps, in a time of psychosocial difficulty with separation from her significant other with precarious housing. Labs: reviewed. Hypokalemic, repleted, will check 2Pm labs and replete likely BID while IV diuresing Imaging: reviewed. CT head with no intracranial abnormalities. Plan: Tense severe lower extremity lymphedema: -lasix 40 IV BID -PT consult for leg wrapping -leg elevation when supine or sitting -physical therapy for ambulation -Currently no evidence of infection, will continue to monitor -BID BMP and replete lytes PRN with diuresis Diabetes: -SSI -hold home metformin -hypoglycemia protocol -FSBG AC/HS Frequent falls: likely secondary to LE edema and severe neuropathy with loss of proprioception -CT head to r/o intracranial pathology given history of multiple falls -Vit B12, B6, iron Peripheral neuropathy: -Gabapentin 900 TID -Lyrica 200 TID -duloxetine 90 QHS -amitriptyline 25 QHS Chronic pain -continue MS contin 15 BID -Oxy 5Q4H PRN -Flexeril 10Q8H PRN Morbid obesity: -Nutrition consult RYAN: -order her for CPAP at home settings of PEEP of 11 HTN: -continue losartan 25 QD Depression: -continue aripripazole, duloxetine, amitriptyline, Wellbutrin COPD/asthma -Singulair -albuterol PRN -Flonase PRN GERD: -Omeprazole -Famotidine -Sucralfate Overactive bladder: -Oxybutynin -Continue the follow home meds: -Vit D 5000U daily -pramipexole -cytotec -docusate DVT prophylaxis: lovenox 40 QD Diet: 2g sodium, consistent carbohydrate Dispo: pending volume optimization, PT eval and treatment of lymphedema, mobility improvement and CM consult VS,Agata, I+O VS, Agata I+O Laboratory Tests 01/15/19 13:58 Red Blood Count 4.67, Mean Corpuscular Volume 95.3, Mean Corpuscular Hemoglobin 31.5, Mean Corpuscular Hemoglobin Concent 33.0, Red Cell Distribution Width 13.2, Neutrophils (%) (Auto) 63.4, Lymphocytes (%) (Auto) 25.2, Monocytes (%) (Auto) 8.1 H, Eosinophils (%) (Auto) 2.5, Basophils (%) (Auto) 0.4, Neutrophils # (Auto) 9.0 H, Lymphocytes # (Auto) 3.6, Monocytes # (Auto) 1.1 H, Eosinophils # (Auto) 0.4, Basophils # (Auto) 0.1 01/16/19 06:14 Red Blood Count 4.04, Mean Corpuscular Volume 91.1, Mean Corpuscular Hemoglobin 30.9, Mean Corpuscular Hemoglobin Concent 34.0, Red Cell Distribution Width 13.2, Lymphocytes # (Auto) , Calcium Level 8.7 Vital Signs Date Time Temp Pulse Resp B/P (MAP) Pulse Ox O2 Delivery O2 Flow Rate FiO2 01/16/19 06:00 97.3 100 21 118/80 (93) 99 01/15/19 20:45 Room Air I&O- Last 24 Hours up to 6 AM 01/16/19 06:00 Intake Total 0 ml Output Total 400 ml Balance -400 ml JESE DAN MD Jan 16, 2019 08:18
[2019-01-16] MEDS ORDERED: INFLUENZA QUADRIVALENT PEDIATRIC PF VACCINE 0.25ML SYR (90685) IM ONE (09:00)
[2019-01-16] MEDS ORDERED: INFLUENZA QUADRIVALENT PF VACCINE 0.5ML SYRINGE (90686) IM ONE (09:00)
[2019-01-16] MEDS ORDERED: MAG SULF 1GM/100ML (MAG RUN) 1 GM in IV 1 EA IV ONE (09:00)
[2019-01-16] MEDS: miSOPROStol 200 MCG TAB (S0191) PO SCH ×2 (09:39→20:50)
[2019-01-16] MEDS: GABAPENTIN 400 MG CAP PO SCH ×3 (09:39→20:50)
[2019-01-16] MEDS: PREGABALIN 100 MG CAP (LYRICA) PO SCH ×3 (09:40→20:50)
[2019-01-16] MEDS: DOCUSATE SODIUM 100 MG CAP PO SCH ×3 (09:40→20:49)
[2019-01-16] MEDS: FAMOTIDINE 20 MG TAB PO SCH ×2 (09:40→20:49)
[2019-01-16] MEDS: OMEPRAZOLE 20 MG CAP PO SCH ×2 (09:40→20:49)
[2019-01-16] MEDS: VITAMIN D 1,000 INTERNATIONAL UNITS TABLET PO SCH (09:40)
[2019-01-16] MEDS: FERROUS SULFATE 325MG TAB PO SCH (09:41)
[2019-01-16] MEDS: MONTELUKAST 10 MG TAB PO SCH (09:41)
[2019-01-16] MEDS: LOSARTAN 25 MG TAB PO SCH (09:41)
[2019-01-16] MEDS: ARIPiprazole 2 MG TAB PO SCH (09:41)
[2019-01-16] MEDS: ENOXAPARIN 40 MG/0.4 ML SYRINGE (J1650) SC SCH (09:42)
[2019-01-16] MEDS: FUROSEMIDE 40 MG/4 ML VIAL (J1940) IV SCH ×2 (09:43→16:19)
[2019-01-16] MEDS: MORPHINE 15 MG SA TAB PO SCH ×2 (09:45→20:49)
[2019-01-16] MEDS: oxyBUTYnin *DITROPAN XL* 5 MG TABCR PO SCH (09:49)
[2019-01-16] MEDS: buPROPion (WELLBUTRIN SR) 100 MG SR TAB PO SCH ×2 (09:59→20:50)
[2019-01-16 10:00] VITALS: BP 128/78
[2019-01-16] MEDS: PRAMIPEXOLE 0.25 MG TAB PO SCH ×2 (10:40→20:50)
[2019-01-16 14:00] VITALS: BP 113/73
[2019-01-16 15:40] LABS: BLOOD UREA NITROGEN 9 MG/DL (7-18); CALCIUM LEVEL 8.9 MG/DL (8.5-10.1); CARBON DIOXIDE LEVEL 31 MEQ/L (21-32); CHLORIDE LEVEL 104 MEQ/L (98-107); CREATININE FOR GFR 0.88 MG/DL (0.55-1.30); GLOMERULAR FILTRATION RATE > 60.0 (>58); GLUCOSE, FASTING 137 MG/DL (70-100); POTASSIUM SERUM 3.4 MEQ/L (3.5-5.1); SODIUM LEVEL 139 MEQ/L (136-145)
[2019-01-16] MEDS: oxyCODONE 5MG TAB PO PRN (16:08)
[2019-01-16 18:00] VITALS: BP 118/72
[2019-01-16] MEDS: CETIRIZINE (ZyrTEC) 10 MG TAB PO SCH (20:50)
[2019-01-16] MEDS: DULoxetine 30 MG CAP (CYMBALTA) PO SCH (20:50)
[2019-01-16] MEDS: AMITRIPTYLINE 25 MG TAB PO SCH (20:50)
[2019-01-16 22:00] VITALS: BP 113/69
[2019-01-17] MEDS: oxyCODONE 5MG TAB PO PRN (01:32)
[2019-01-17] MEDS: NYSTATIN 100,000 UNITS/GM TOPICAL PWD 15 GM TOP PRN ×2 (01:32→21:41)
[2019-01-17 02:00] VITALS: BP 114/69
[2019-01-17 06:00] VITALS: BP 115/69
[2019-01-17 06:09] LABS: MEAN CORPUSCULAR HEMOGLOBIN 31.3 pg (27.0-33.0); MEAN CORPUSCULAR HGB CONC 33.3 g/dl (32.0-36.5); MEAN CORPUSCULAR VOLUME 93.8 fl (80.0-96.0); PLATELET COUNT, AUTOMATED 235 10^3/uL (150-450); RED BLOOD COUNT 3.84 10^6/uL (4.00-5.40); WHITE BLOOD COUNT 11.2 10^3/uL (4.0-10.0)
[2019-01-17 06:38] LABS: BLOOD UREA NITROGEN 11 MG/DL (7-18); CALCIUM LEVEL 8.3 MG/DL (8.5-10.1); CARBON DIOXIDE LEVEL 29 MEQ/L (21-32); CHLORIDE LEVEL 103 MEQ/L (98-107); CREATININE FOR GFR 0.61 MG/DL (0.55-1.30); GLOMERULAR FILTRATION RATE > 60.0 (>58); GLUCOSE, FASTING 103 MG/DL (70-100); POTASSIUM SERUM 3.1 MEQ/L (3.5-5.1); SODIUM LEVEL 139 MEQ/L (136-145)
[2019-01-17 06:52] LABS: EOSINOPHILS 4 % (0-3); LYMPHOCYTES 45 % (16-44); MONOCYTES 8 % (0-5); NEUTROPHILS 43 % (28-66); PLATELET ESTIMATE NORMAL (NORMAL)
[2019-01-17] MEDS ORDERED: POTASSIUM CHLORIDE 10% LIQ 20 MEQ/15 ML UDC PO ONE (07:30)
[2019-01-17 07:55] LABS: MAGNESIUM LEVEL 1.6 MG/DL (1.8-2.4)
[2019-01-17] MEDS: ENOXAPARIN 40 MG/0.4 ML SYRINGE (J1650) SC SCH (08:01)
[2019-01-17] MEDS: oxyBUTYnin *DITROPAN XL* 5 MG TABCR PO SCH (08:02)
[2019-01-17] MEDS: DOCUSATE SODIUM 100 MG CAP PO SCH ×3 (08:02→21:32)
[2019-01-17] MEDS: HumaLOG INSULIN (NovoLOG) PER UNIT SC SCH ×4 (08:02→21:00)
[2019-01-17] MEDS: FERROUS SULFATE 325MG TAB PO SCH (08:03)
[2019-01-17] MEDS: VITAMIN D 1,000 INTERNATIONAL UNITS TABLET PO SCH (08:03)
[2019-01-17] MEDS: FAMOTIDINE 20 MG TAB PO SCH ×2 (08:03→21:32)
[2019-01-17] MEDS: OMEPRAZOLE 20 MG CAP PO SCH ×2 (08:03→21:32)
[2019-01-17] MEDS: PRAMIPEXOLE 0.25 MG TAB PO SCH ×2 (08:03→21:32)
[2019-01-17] MEDS: GABAPENTIN 400 MG CAP PO SCH ×3 (08:03→21:32)
[2019-01-17] MEDS: SUCRALFATE 1 GM TAB PO SCH ×4 (08:03→21:32)
[2019-01-17] MEDS: MORPHINE 15 MG SA TAB PO SCH ×2 (08:04→21:32)
[2019-01-17] MEDS: MONTELUKAST 10 MG TAB PO SCH (08:04)
[2019-01-17] MEDS: PREGABALIN 100 MG CAP (LYRICA) PO SCH ×3 (08:04→21:32)
[2019-01-17] MEDS: FUROSEMIDE 40 MG/4 ML VIAL (J1940) IV SCH ×2 (08:05→17:58)
[2019-01-17] MEDS: miSOPROStol 200 MCG TAB (S0191) PO SCH ×2 (08:05→21:32)
[2019-01-17] MEDS: ARIPiprazole 2 MG TAB PO SCH (08:06)
[2019-01-17] MEDS: LOSARTAN 25 MG TAB PO SCH (08:06)
[2019-01-17] MEDS: buPROPion (WELLBUTRIN SR) 100 MG SR TAB PO SCH ×2 (08:06→21:32)
[2019-01-17] MEDS ORDERED: MAG SULF 1GM/100ML (MAG RUN) 1 GM in IV 1 EA IV ONE (11:45)
--- NOTE | 2019-01-17 11:54 | IPNPDOC ---
Text Note Date of Service The patient was seen on 01/17/19. NOTE Subjective: Patient seen and examined at bedside. No new medical complaints. No acute overnight events reported. Objective: General Exam: NAD, sitting comfortably in chair HEENT: NC/AT, EOMI Neck Exam: Thick, Supple, no palpable adenopathy Chest Exam: CTA B/L Heart Exam: +S1S2, RRR Abdomen Exam: soft, obese, NT, +BS Extremity Exam: bandages in place b/l LE Assessment/Plan: 43 yo woman with chronic lymphedema who presents to the hospital unable to ambulate due to massive tense lower extremity lymphedema in the setting of six weeks of non adherence to her diuretic and leg wraps, in a time of psychosocial difficulty with separation from her significant other, complicated with precarious housing. #Tense severe lower extremity lymphedema: -lasix 40 IV BID -PT consult for leg wrapping -leg elevation when supine or sitting -physical therapy for ambulation -Currently no evidence of infection, will continue to monitor -BID BMP and replete lytes PRN with diuresis #Diabetes: -SSI -hold home metformin -hypoglycemia protocol -FSBG AC/HS #Frequent falls: likely secondary to LE edema and severe neuropathy with loss of proprioception -CT head to r/o intracranial pathology given history of multiple falls -Vit B12, B6, iron #Peripheral neuropathy: -Gabapentin 900 TID -Lyrica 200 TID -duloxetine 90 QHS -amitriptyline 25 QHS #Chronic pain -continue MS contin 15 BID -Oxy 5Q4H PRN -Flexeril 10Q8H PRN #Morbid obesity: -complicates medical care #RYAN: -CPAP #HTN: -continue losartan 25 QD #Depression: -continue aripripazole, duloxetine, amitriptyline, Wellbutrin #COPD/asthma -Singulair -albuterol PRN -Flonase PRN #GERD: -Omeprazole -Famotidine -Sucralfate #Overactive bladder: -Oxybutynin #DVT prophylaxis: lovenox 40 QD Dispo: pending volume optimization, PT eval and treatment of lymphedema, mobility improvement and CM consult VS,Fishbone, I+O VS, Fishbone, I+O Laboratory Tests 01/16/19 15:02 Calcium Level 8.9 01/17/19 05:36 Calcium Level 8.3 L, Red Blood Count 3.84 L, Mean Corpuscular Volume 93.8, Mean Corpuscular Hemoglobin 31.3, Mean Corpuscular Hemoglobin Concent 33.3, Red Cell Distribution Width 13.2, Lymphocytes # (Auto) Vital Signs Date Time Temp Pulse Resp B/P (MAP) Pulse Ox O2 Delivery O2 Flow Rate FiO2 01/17/19 08:06 135/83 01/17/19 08:04 19 01/17/19 06:00 97.9 87 98 01/15/19 20:45 Room Air I&O- Last 24 Hours up to 6 AM 01/17/19 06:00 Intake Total 1720 ml Output Total 4350 ml Balance -2630 ml ANMOL NEFF MD Jan 17, 2019 11:54
[2019-01-17] MEDS: DULoxetine 30 MG CAP (CYMBALTA) PO SCH (21:32)
[2019-01-17] MEDS: AMITRIPTYLINE 25 MG TAB PO SCH (21:32)
[2019-01-17] MEDS: CETIRIZINE (ZyrTEC) 10 MG TAB PO SCH (21:33)
[2019-01-17 22:00] VITALS: BP 123/67
[2019-01-18 02:00] VITALS: BP 127/69
[2019-01-18 06:00] VITALS: BP 112/75
[2019-01-18 06:14] LABS: HEMATOCRIT 39.9 % (36.0-47.0); MEAN CORPUSCULAR HEMOGLOBIN 30.7 pg (27.0-33.0); MEAN CORPUSCULAR HGB CONC 32.6 g/dl (32.0-36.5); MEAN CORPUSCULAR VOLUME 94.3 fl (80.0-96.0); PLATELET COUNT, AUTOMATED 296 10^3/uL (150-450); RED BLOOD COUNT 4.23 10^6/uL (4.00-5.40)
[2019-01-18 06:21] LABS: WHITE BLOOD COUNT 12.3 10^3/uL (4.0-10.0)
[2019-01-18 06:37] LABS: BLOOD UREA NITROGEN 9 MG/DL (7-18); CARBON DIOXIDE LEVEL 32 MEQ/L (21-32); CHLORIDE LEVEL 103 MEQ/L (98-107); GLOMERULAR FILTRATION RATE > 60.0 (>58); GLUCOSE, FASTING 108 MG/DL (70-100); MAGNESIUM LEVEL 1.8 MG/DL (1.8-2.4); POTASSIUM SERUM 3.2 MEQ/L (3.5-5.1); SODIUM LEVEL 140 MEQ/L (136-145)
[2019-01-18 06:54] LABS: EOSINOPHILS 5 % (0-3); LYMPHOCYTES 50 % (16-44); MONOCYTES 5 % (0-5); NEUTROPHILS 40 % (28-66); PLATELET ESTIMATE NORMAL (NORMAL)
[2019-01-18] MEDS ORDERED: POTASSIUM CHLORIDE 10% LIQ 20 MEQ/15 ML UDC PO ONE (07:00)
[2019-01-18 08:00] VITALS: BP 114/73
[2019-01-18] MEDS: MONTELUKAST 10 MG TAB PO SCH (08:52)
[2019-01-18] MEDS: ENOXAPARIN 40 MG/0.4 ML SYRINGE (J1650) SC SCH (08:52)
[2019-01-18] MEDS: FUROSEMIDE 40 MG/4 ML VIAL (J1940) IV SCH (08:52)
[2019-01-18] MEDS: PRAMIPEXOLE 0.25 MG TAB PO SCH ×2 (08:53→20:03)
[2019-01-18] MEDS: miSOPROStol 200 MCG TAB (S0191) PO SCH ×2 (08:53→20:02)
[2019-01-18] MEDS: VITAMIN D 1,000 INTERNATIONAL UNITS TABLET PO SCH (08:54)
[2019-01-18] MEDS: DOCUSATE SODIUM 100 MG CAP PO SCH ×3 (08:54→20:02)
[2019-01-18] MEDS: LOSARTAN 25 MG TAB PO SCH (08:55)
[2019-01-18] MEDS: FERROUS SULFATE 325MG TAB PO SCH (08:55)
[2019-01-18] MEDS: FAMOTIDINE 20 MG TAB PO SCH ×2 (08:55→20:03)
[2019-01-18] MEDS: PREGABALIN 100 MG CAP (LYRICA) PO SCH ×3 (08:56→20:03)
[2019-01-18] MEDS: buPROPion (WELLBUTRIN SR) 100 MG SR TAB PO SCH ×2 (08:56→20:03)
[2019-01-18] MEDS: OMEPRAZOLE 20 MG CAP PO SCH ×2 (08:56→20:02)
[2019-01-18] MEDS: ARIPiprazole 2 MG TAB PO SCH (08:56)
[2019-01-18] MEDS: GABAPENTIN 400 MG CAP PO SCH ×3 (08:56→20:03)
[2019-01-18] MEDS: oxyBUTYnin *DITROPAN XL* 5 MG TABCR PO SCH (09:07)
[2019-01-18] MEDS: MORPHINE 15 MG SA TAB PO SCH ×2 (09:26→20:04)
[2019-01-18] MEDS: SUCRALFATE 1 GM TAB PO SCH ×4 (09:26→20:03)
[2019-01-18] MEDS: HumaLOG INSULIN (NovoLOG) PER UNIT SC SCH ×4 (09:27→21:00)
--- NOTE | 2019-01-18 11:34 | IPNPDOC ---
Text Note Date of Service The patient was seen on 01/18/19. NOTE Subjective: Patient seen and examined at bedside. No new medical complaints. No acute overnight events reported. Notes polyuria, denies dysuria. Objective: General Exam: NAD, sitting comfortably in chair HEENT: NC/AT, EOMI Neck Exam: Thick, Supple, no palpable adenopathy Chest Exam: CTA B/L Heart Exam: +S1S2, RRR Abdomen Exam: soft, obese, NT, +BS Extremity Exam: bandages in place b/l LE Assessment/Plan: 43 yo woman with chronic lymphedema who presents to the hospital unable to ambulate due to massive tense lower extremity lymphedema in the setting of six weeks of non adherence to her diuretic and leg wraps, in a time of psychosocial difficulty with separation from her significant other, complicated with precarious housing. #Tense severe lower extremity lymphedema: - increase lasix 60 IV BID -PT consult for leg wrapping -leg elevation when supine or sitting -physical therapy for ambulation # bacteruria - difficult to ascertain if UTI - will start macrobid #Diabetes -SSI -hold home metformin -hypoglycemia protocol -FSBG AC/HS #Frequent falls - likely secondary to LE edema and severe neuropathy with loss of proprioception -CT head to r/o intracranial pathology given history of multiple falls -Vit B12, B6, iron #Peripheral neuropathy: -Gabapentin 900 TID -Lyrica 200 TID -duloxetine 90 QHS -amitriptyline 25 QHS #Chronic pain -continue MS contin 15 BID -Oxy 5Q4H PRN -Flexeril 10Q8H PRN #Morbid obesity -complicates medical care #RYAN -CPAP #HTN -continue losartan 25 QD #Depression: -continue aripripazole, duloxetine, amitriptyline, Wellbutrin #COPD/asthma -Singulair -albuterol PRN -Flonase PRN #GERD: -Omeprazole -Famotidine -Sucralfate #Overactive bladder: -Oxybutynin #DVT prophylaxis: lovenox 40 QD Dispo: pending volume optimization, PT eval and treatment of lymphedema, mobility improvement and CM consult VS,Fishbone, I+O VS, Fishbone, I+O Laboratory Tests 01/18/19 05:50 Red Blood Count 4.23, Mean Corpuscular Volume 94.3, Mean Corpuscular Hemoglobin 30.7, Mean Corpuscular Hemoglobin Concent 32.6, Red Cell Distribution Width 13.2, Lymphocytes # (Auto) , Calcium Level 9.0 Vital Signs Date Time Temp Pulse Resp B/P (MAP) Pulse Ox O2 Delivery O2 Flow Rate FiO2 01/18/19 09:26 18 01/18/19 08:00 98.3 82 114/73 (87) 98 01/15/19 20:45 Room Air I&O- Last 24 Hours up to 6 AM 01/18/19 05:59 Intake Total 3080 ml Output Total 3025 ml Balance 55 ml ANMOL NEFF MD Jan 18, 2019 11:34
[2019-01-18] MEDS: NITROFURANTOIN (MACROBID) 100 MG CAP PO SCH ×2 (12:45→20:02)
[2019-01-18 13:51] VITALS: BP 108/70
[2019-01-18] MEDS ORDERED: FUROSEMIDE 100 MG/10 ML VIAL (J1940) IV SCH (17:00)
[2019-01-18] MEDS: DULoxetine 30 MG CAP (CYMBALTA) PO SCH (20:02)
[2019-01-18] MEDS: CETIRIZINE (ZyrTEC) 10 MG TAB PO SCH (20:03)
[2019-01-18] MEDS: AMITRIPTYLINE 25 MG TAB PO SCH (20:03)
[2019-01-18 22:00] VITALS: BP 108/70
[2019-01-19 06:00] VITALS: BP 119/72
[2019-01-19 06:15] LABS: BASO % 0.2 % (0.0-1.0); EOS # 0.5 10^3/uL (0.0-0.5); EOS % 4.2 % (0.0-3.0); HEMATOCRIT 36.3 % (36.0-47.0); HEMOGLOBIN 12.1 g/dl (12.0-15.5); LYMPH # 4.1 10^3/uL (1.5-5.0); LYMPH % 38.6 % (24.0-44.0); MEAN CORPUSCULAR HEMOGLOBIN 31.2 pg (27.0-33.0); MEAN CORPUSCULAR HGB CONC 33.3 g/dl (32.0-36.5); MEAN CORPUSCULAR VOLUME 93.6 fl (80.0-96.0); MONO # 0.9 10^3/uL (0.0-0.8); MONO % 8.7 % (0.0-5.0); NEUTROPHILS # 5.1 10^3/uL (1.5-8.5); NEUTROPHILS % 47.9 % (36.0-66.0); PLATELET COUNT, AUTOMATED 248 10^3/uL (150-450); RED BLOOD COUNT 3.88 10^6/uL (4.00-5.40); WHITE BLOOD COUNT 10.7 10^3/uL (4.0-10.0)
[2019-01-19 06:45] LABS: BLOOD UREA NITROGEN 10 MG/DL (7-18); CALCIUM LEVEL 8.9 MG/DL (8.5-10.1); CARBON DIOXIDE LEVEL 32 MEQ/L (21-32); CHLORIDE LEVEL 103 MEQ/L (98-107); CREATININE FOR GFR 0.61 MG/DL (0.55-1.30); GLOMERULAR FILTRATION RATE > 60.0 (>58); GLUCOSE, FASTING 92 MG/DL (70-100); SODIUM LEVEL 141 MEQ/L (136-145)
[2019-01-19] MEDS: HumaLOG INSULIN (NovoLOG) PER UNIT SC SCH ×4 (07:30→21:00)
[2019-01-19 07:50] LABS: MAGNESIUM LEVEL 1.7 MG/DL (1.8-2.4)
[2019-01-19] MEDS ORDERED: POTASSIUM CHLORIDE 10% LIQ 20 MEQ/15 ML UDC PO ONE (08:00)
[2019-01-19] MEDS ORDERED: MAG SULF 1GM/100ML (MAG RUN) 1 GM in IV 1 EA IV ONE (09:00)
--- NOTE | 2019-01-19 10:35 | IPNPDOC ---
Text Note Date of Service The patient was seen on 01/19/19. NOTE Subjective: Patient seen and examined at bedside. No new medical complaints. No acute overnight events reported. Boyfriend at bedside. Objective: General Exam: NAD, sitting comfortably in chair HEENT: NC/AT, EOMI Chest Exam: CTA B/L Heart Exam: +S1S2, RRR Abdomen Exam: soft, obese, NT, +BS Extremity Exam: bandages in place b/l LE Assessment/Plan: 43 yo woman with chronic lymphedema who presents to the hospital unable to ambulate due to massive tense lower extremity lymphedema in the setting of six weeks of non adherence to her diuretic and leg wraps, in a time of psychosocial difficulty with separation from her significant other, complicated with precarious housing. #Tense severe lower extremity lymphedema: - adjust diuretic - aldactone 25 BID, lasix 40 IV BID -PT consult for leg wrapping -leg elevation when supine or sitting -physical therapy for ambulation # bacteruria - difficult to ascertain if UTI - contineu macrobid day #2 #Diabetes -SSI -hold home metformin -hypoglycemia protocol -FSBG AC/HS #Frequent falls - likely secondary to LE edema and severe neuropathy with loss of proprioception -CT head to r/o intracranial pathology given history of multiple falls -Vit B12, B6, iron #Peripheral neuropathy: -Gabapentin 900 TID -Lyrica 200 TID -duloxetine 90 QHS -amitriptyline 25 QHS #Chronic pain -continue MS contin 15 BID -Oxy 5Q4H PRN -Flexeril 10Q8H PRN #Morbid obesity -complicates medical care #RYAN -CPAP #HTN -continue losartan 25 QD #Depression: -continue aripripazole, duloxetine, amitriptyline, Wellbutrin #COPD/asthma -Singulair -albuterol PRN -Flonase PRN #GERD: -Omeprazole -Famotidine -Sucralfate #Overactive bladder: -Oxybutynin #DVT prophylaxis: lovenox 40 QD Dispo: pending volume optimization VS,Fishbone, I+O VS, Fishbone, I+O Laboratory Tests 01/19/19 05:32 Red Blood Count 3.88 L, Mean Corpuscular Volume 93.6, Mean Corpuscular Hemoglobin 31.2, Mean Corpuscular Hemoglobin Concent 33.3, Red Cell Distribution Width 13.2, Neutrophils (%) (Auto) 47.9, Lymphocytes (%) (Auto) 38.6, Monocytes (%) (Auto) 8.7 H, Eosinophils (%) (Auto) 4.2 H, Basophils (%) (Auto) 0.2, Neut rophils # (Auto) 5.1, Lymphocytes # (Auto) 4.1, Monocytes # (Auto) 0.9 H, Eosinophils # (Auto) 0.5, Basophils # (Auto) 0.0, Calcium Level 8.9 Vital Signs Date Time Temp Pulse Resp B/P (MAP) Pulse Ox O2 Delivery O2 Flow Rate FiO2 01/19/19 06:00 97.1 83 18 119/72 (88) 95 01/15/19 20:45 Room Air I&O- Last 24 Hours up to 6 AM 01/19/19 05:59 Intake Total 2280 ml Output Total 5350 ml Balance -3070 ml ANMOL NEFF MD Jan 19, 2019 10:35
[2019-01-19] MEDS: ENOXAPARIN 40 MG/0.4 ML SYRINGE (J1650) SC SCH (10:45)
[2019-01-19] MEDS: FUROSEMIDE 40 MG/4 ML VIAL (J1940) IV SCH ×2 (10:45→18:03)
[2019-01-19] MEDS: PRAMIPEXOLE 0.25 MG TAB PO SCH ×2 (10:46→21:05)
[2019-01-19] MEDS: ARIPiprazole 2 MG TAB PO SCH (10:46)
[2019-01-19] MEDS: SUCRALFATE 1 GM TAB PO SCH ×4 (10:46→21:05)
[2019-01-19] MEDS: VITAMIN D 1,000 INTERNATIONAL UNITS TABLET PO SCH (10:46)
[2019-01-19] MEDS: GABAPENTIN 400 MG CAP PO SCH ×3 (10:46→21:04)
[2019-01-19] MEDS: oxyBUTYnin *DITROPAN XL* 5 MG TABCR PO SCH (10:47)
[2019-01-19] MEDS: MONTELUKAST 10 MG TAB PO SCH (10:47)
[2019-01-19] MEDS: PREGABALIN 100 MG CAP (LYRICA) PO SCH ×3 (10:47→21:04)
[2019-01-19] MEDS: FAMOTIDINE 20 MG TAB PO SCH ×2 (10:47→21:05)
[2019-01-19] MEDS: OMEPRAZOLE 20 MG CAP PO SCH ×2 (10:47→21:04)
[2019-01-19] MEDS: NITROFURANTOIN (MACROBID) 100 MG CAP PO SCH ×2 (10:48→21:04)
[2019-01-19] MEDS: SPIRONOLACTONE 25 MG TAB PO SCH ×2 (10:48→18:03)
[2019-01-19] MEDS: DOCUSATE SODIUM 100 MG CAP PO SCH ×3 (10:49→21:05)
[2019-01-19] MEDS: FERROUS SULFATE 325MG TAB PO SCH (10:49)
[2019-01-19] MEDS: buPROPion (WELLBUTRIN SR) 100 MG SR TAB PO SCH ×2 (10:49→21:05)
[2019-01-19] MEDS: MORPHINE 15 MG SA TAB PO SCH ×2 (10:49→21:06)
[2019-01-19] MEDS: LOSARTAN 25 MG TAB PO SCH (10:50)
[2019-01-19] MEDS: miSOPROStol 200 MCG TAB (S0191) PO SCH ×2 (10:51→21:05)
[2019-01-19 14:00] VITALS: BP 105/72
[2019-01-19] MEDS: oxyCODONE 5MG TAB PO PRN (15:17)
[2019-01-19] MEDS ORDERED: NICOTINE POLACRILEX 2 MG GUM PO PRN (19:15)
[2019-01-19 20:00] VITALS: BP 140/57
[2019-01-19] MEDS: NICOTINE 7 MG/24 HR TRANSDERMAL TD SCH (21:04)
[2019-01-19] MEDS: AMITRIPTYLINE 25 MG TAB PO SCH (21:04)
[2019-01-19] MEDS: CETIRIZINE (ZyrTEC) 10 MG TAB PO SCH (21:05)
[2019-01-19] MEDS: DULoxetine 30 MG CAP (CYMBALTA) PO SCH (21:05)
[2019-01-20 06:00] VITALS: BP 145/76
[2019-01-20 06:42] LABS: HEMATOCRIT 39.3 % (36.0-47.0); MEAN CORPUSCULAR HEMOGLOBIN 31.3 pg (27.0-33.0); MEAN CORPUSCULAR HGB CONC 33.1 g/dl (32.0-36.5); MEAN CORPUSCULAR VOLUME 94.5 fl (80.0-96.0); PLATELET COUNT, AUTOMATED 296 10^3/uL (150-450); RED BLOOD COUNT 4.16 10^6/uL (4.00-5.40)
[2019-01-20 07:01] LABS: BLOOD UREA NITROGEN 9 MG/DL (7-18); CALCIUM LEVEL 8.8 MG/DL (8.5-10.1); CARBON DIOXIDE LEVEL 34 MEQ/L (21-32); CHLORIDE LEVEL 101 MEQ/L (98-107); GLOMERULAR FILTRATION RATE > 60.0 (>58); GLUCOSE, FASTING 108 MG/DL (70-100); POTASSIUM SERUM 3.3 MEQ/L (3.5-5.1); SODIUM LEVEL 139 MEQ/L (136-145); WHITE BLOOD COUNT 12.5 10^3/uL (4.0-10.0)
[2019-01-20] MEDS: HumaLOG INSULIN (NovoLOG) PER UNIT SC SCH ×4 (07:30→22:02)
[2019-01-20 08:03] LABS: EOSINOPHILS 4 % (0-3); LYMPHOCYTES 45 % (16-44); MONOCYTES 1 % (0-5); NEUTROPHILS 50 % (28-66)
[2019-01-20 08:04] LABS: PLATELET ESTIMATE NORMAL (NORMAL)
[2019-01-20] MEDS ORDERED: POTASSIUM CHLORIDE 10% LIQ 20 MEQ/15 ML UDC PO ONE (09:00)
[2019-01-20] MEDS: NICOTINE 7 MG/24 HR TRANSDERMAL TD SCH (09:44)
[2019-01-20] MEDS: ENOXAPARIN 40 MG/0.4 ML SYRINGE (J1650) SC SCH (09:44)
[2019-01-20] MEDS: OMEPRAZOLE 20 MG CAP PO SCH ×2 (09:45→22:10)
[2019-01-20] MEDS: MORPHINE 15 MG SA TAB PO SCH ×2 (09:45→22:12)
[2019-01-20] MEDS: VITAMIN D 1,000 INTERNATIONAL UNITS TABLET PO SCH (09:45)
[2019-01-20] MEDS: FUROSEMIDE 40 MG/4 ML VIAL (J1940) IV SCH ×2 (09:45→16:23)
[2019-01-20] MEDS: FERROUS SULFATE 325MG TAB PO SCH (09:46)
[2019-01-20] MEDS: SUCRALFATE 1 GM TAB PO SCH ×4 (09:46→22:09)
[2019-01-20] MEDS: DOCUSATE SODIUM 100 MG CAP PO SCH ×3 (09:46→22:06)
[2019-01-20] MEDS: buPROPion (WELLBUTRIN SR) 100 MG SR TAB PO SCH ×2 (09:46→22:07)
[2019-01-20] MEDS: MONTELUKAST 10 MG TAB PO SCH (09:46)
[2019-01-20] MEDS: ARIPiprazole 2 MG TAB PO SCH (09:46)
[2019-01-20] MEDS: PRAMIPEXOLE 0.25 MG TAB PO SCH ×2 (09:46→22:13)
[2019-01-20] MEDS: SPIRONOLACTONE 25 MG TAB PO SCH ×2 (09:46→16:23)
[2019-01-20] MEDS: PREGABALIN 100 MG CAP (LYRICA) PO SCH ×3 (09:46→22:08)
[2019-01-20] MEDS: GABAPENTIN 400 MG CAP PO SCH ×3 (09:46→22:10)
[2019-01-20] MEDS: LOSARTAN 25 MG TAB PO SCH (09:46)
[2019-01-20] MEDS: miSOPROStol 200 MCG TAB (S0191) PO SCH ×2 (09:47→22:07)
[2019-01-20] MEDS: FAMOTIDINE 20 MG TAB PO SCH ×2 (09:47→22:11)
[2019-01-20] MEDS: oxyBUTYnin *DITROPAN XL* 5 MG TABCR PO SCH (10:00)
--- NOTE | 2019-01-20 10:10 | IPNPDOC ---
Text Note Date of Service The patient was seen on 01/20/19. NOTE ubjective: Patient seen and examined at bedside. No new medical complaints. No acute overnight events reported. Boyfriend at bedside. Objective: General Exam: NAD, sitting comfortably in chair HEENT: NC/AT, EOMI Chest Exam: CTA B/L Heart Exam: +S1S2, RRR Abdomen Exam: soft, obese, NT, +BS Extremity Exam: bandages in place b/l LE Assessment/Plan: 43 yo woman with chronic lymphedema who presents to the hospital unable to ambulate due to massive tense lower extremity lymphedema in the setting of six weeks of non adherence to her diuretic and leg wraps, in a time of psychosocial difficulty with separation from her significant other, complicated with precarious housing. #Tense severe lower extremity lymphedema: - adjust diuretic - aldactone 25 BID, lasix 40 IV BID -PT consult for leg wrapping -leg elevation when supine or sitting -physical therapy for ambulation # bacteruria - difficult to ascertain if UTI - contineu macrobid day #3 #Diabetes -SSI -hold home metformin -hypoglycemia protocol -FSBG AC/HS #Frequent falls - likely secondary to LE edema and severe neuropathy with loss of proprioception -CT head to r/o intracranial pathology given history of multiple falls -Vit B12, B6, iron #Peripheral neuropathy: -Gabapentin 900 TID -Lyrica 200 TID -duloxetine 90 QHS -amitriptyline 25 QHS #Chronic pain -continue MS contin 15 BID -Oxy 5Q4H PRN -Flexeril 10Q8H PRN #Morbid obesity -complicates medical care #RYAN -CPAP #HTN -continue losartan 25 QD #Depression: -continue aripripazole, duloxetine, amitriptyline, Wellbutrin #COPD/asthma -Singulair -albuterol PRN -Flonase PRN #GERD: -Omeprazole -Famotidine -Sucralfate #Overactive bladder: -Oxybutynin #DVT prophylaxis: lovenox 40 QD Dispo: pending volume optimization VS,Fishbone, I+O VS, Fishbone, I+O Laboratory Tests 01/20/19 06:08 Red Blood Count 4.16, Mean Corpuscular Volume 94.5, Mean Corpuscular Hemoglobin 31.3, Mean Corpuscular Hemoglobin Concent 33.1, Red Cell Distribution Width 13.3, Lymphocytes # (Auto) , Calcium Level 8.8 Vital Signs Date Time Temp Pulse Resp B/P (MAP) Pulse Ox O2 Delivery O2 Flow Rate FiO2 01/20/19 09:46 147/77 01/20/19 09:45 18 01/20/19 06:00 97.5 91 93 01/15/19 20:45 Room Air I&O- Last 24 Hours up to 6 AM 01/20/19 06:00 Intake Total 1255 ml Output Total 3800 ml Balance -2545 ml ANMOL NEFF MD Jan 20, 2019 10:10
[2019-01-20] MEDS: NITROFURANTOIN (MACROBID) 100 MG CAP PO SCH ×2 (11:02→22:09)
[2019-01-20 14:00] VITALS: BP 141/72
[2019-01-20 22:00] VITALS: BP 133/71
[2019-01-20] MEDS: DULoxetine 30 MG CAP (CYMBALTA) PO SCH (22:08)
[2019-01-20] MEDS: AMITRIPTYLINE 25 MG TAB PO SCH (22:11)
[2019-01-20] MEDS: CETIRIZINE (ZyrTEC) 10 MG TAB PO SCH (22:13)
[2019-01-21 06:00] VITALS: BP 163/71
[2019-01-21] MEDS: HumaLOG INSULIN (NovoLOG) PER UNIT SC SCH ×4 (07:30→21:00)
[2019-01-21] MEDS: NICOTINE 7 MG/24 HR TRANSDERMAL TD SCH (08:01)
[2019-01-21] MEDS: FERROUS SULFATE 325MG TAB PO SCH (08:01)
[2019-01-21] MEDS: PRAMIPEXOLE 0.25 MG TAB PO SCH ×2 (08:01→21:59)
[2019-01-21] MEDS: FUROSEMIDE 40 MG/4 ML VIAL (J1940) IV SCH ×2 (08:01→17:12)
[2019-01-21] MEDS: oxyBUTYnin *DITROPAN XL* 5 MG TABCR PO SCH (08:01)
[2019-01-21] MEDS: miSOPROStol 200 MCG TAB (S0191) PO SCH ×2 (08:02→21:59)
[2019-01-21] MEDS: OMEPRAZOLE 20 MG CAP PO SCH ×2 (08:02→22:00)
[2019-01-21] MEDS: NITROFURANTOIN (MACROBID) 100 MG CAP PO SCH ×2 (08:02→21:59)
[2019-01-21] MEDS: MORPHINE 15 MG SA TAB PO SCH ×2 (08:02→21:59)
[2019-01-21] MEDS: FAMOTIDINE 20 MG TAB PO SCH ×2 (08:03→21:59)
[2019-01-21] MEDS: ARIPiprazole 2 MG TAB PO SCH (08:03)
[2019-01-21] MEDS: VITAMIN D 1,000 INTERNATIONAL UNITS TABLET PO SCH (08:03)
[2019-01-21] MEDS: SPIRONOLACTONE 25 MG TAB PO SCH ×2 (08:03→17:12)
[2019-01-21] MEDS: SUCRALFATE 1 GM TAB PO SCH ×4 (08:03→21:59)
[2019-01-21] MEDS: GABAPENTIN 400 MG CAP PO SCH ×3 (08:03→21:59)
[2019-01-21] MEDS: MONTELUKAST 10 MG TAB PO SCH (08:03)
[2019-01-21] MEDS: PREGABALIN 100 MG CAP (LYRICA) PO SCH ×3 (08:03→22:00)
[2019-01-21] MEDS: ENOXAPARIN 40 MG/0.4 ML SYRINGE (J1650) SC SCH (08:04)
[2019-01-21] MEDS: buPROPion (WELLBUTRIN SR) 100 MG SR TAB PO SCH ×2 (08:04→22:01)
[2019-01-21] MEDS: DOCUSATE SODIUM 100 MG CAP PO SCH ×3 (08:04→21:59)
[2019-01-21] MEDS: LOSARTAN 25 MG TAB PO SCH (08:04)
[2019-01-21 08:37] LABS: BLOOD UREA NITROGEN 9 MG/DL (7-18); CALCIUM LEVEL 9.1 MG/DL (8.5-10.1); CARBON DIOXIDE LEVEL 33 MEQ/L (21-32); CHLORIDE LEVEL 104 MEQ/L (98-107); CREATININE FOR GFR 0.74 MG/DL (0.55-1.30); GLOMERULAR FILTRATION RATE > 60.0 (>58); GLUCOSE, FASTING 103 MG/DL (70-100); MAGNESIUM LEVEL 1.8 MG/DL (1.8-2.4); POTASSIUM SERUM 3.2 MEQ/L (3.5-5.1); SODIUM LEVEL 141 MEQ/L (136-145)
[2019-01-21 08:38] LABS: HEMATOCRIT 40.4 % (36.0-47.0); HEMOGLOBIN 13.2 g/dl (12.0-15.5); MEAN CORPUSCULAR HEMOGLOBIN 30.6 pg (27.0-33.0); MEAN CORPUSCULAR HGB CONC 32.7 g/dl (32.0-36.5); MEAN CORPUSCULAR VOLUME 93.7 fl (80.0-96.0); PLATELET COUNT, AUTOMATED 302 10^3/uL (150-450); RED BLOOD COUNT 4.31 10^6/uL (4.00-5.40); WHITE BLOOD COUNT 12.1 10^3/uL (4.0-10.0)
--- NOTE | 2019-01-21 10:45 | IPNPDOC ---
Text Note Date of Service The patient was seen on 01/21/19. NOTE Subjective: Patient seen and examined at bedside. No new medical complaints. No acute overnight events reported. Objective: General Exam: NAD, sitting comfortably in chair, hirsute HEENT: NC/AT, EOMI Chest Exam: CTA B/L Heart Exam: +S1S2, RRR Abdomen Exam: soft, obese, NT, +BS Extremity Exam: bandages in place b/l LE Assessment/Plan: 43 yo woman with chronic lymphedema who presents to the hospital unable to ambulate due to massive tense lower extremity lymphedema in the setting of six weeks of non adherence to her diuretic and leg wraps, in a time of psychosocial difficulty with separation from her significant other, complicated with precarious housing. #Tense severe lower extremity lymphedema: - adjust diuretic - aldactone 25 BID, lasix 40 IV BID -PT consult for leg wrapping -leg elevation when supine or sitting -physical therapy for ambulation # bacteruria - difficult to ascertain if UTI - contineu macrobid day #07/22 #Diabetes -SSI -hold home metformin -hypoglycemia protocol -FSBG AC/HS #Frequent falls - likely secondary to LE edema and severe neuropathy with loss of proprioception -CT head to r/o intracranial pathology given history of multiple falls -Vit B12, B6, iron #Peripheral neuropathy: -Gabapentin 900 TID -Lyrica 200 TID -duloxetine 90 QHS -amitriptyline 25 QHS #Chronic pain -continue MS contin 15 BID -Oxy 5Q4H PRN -Flexeril 10Q8H PRN #Morbid obesity -complicates medical care #RYAN -CPAP #HTN -continue losartan 25 QD #Depression: -continue aripripazole, duloxetine, amitriptyline, Wellbutrin #COPD/asthma -Singulair -albuterol PRN -Flonase PRN #GERD: -Omeprazole -Famotidine -Sucralfate #Overactive bladder: -Oxybutynin #DVT prophylaxis: lovenox 40 QD Dispo: pending volume optimization VS,Fishbone, I+O VS, Fishbone, I+O Laboratory Tests 01/21/19 07:47 Red Blood Count 4.31, Mean Corpuscular Volume 93.7, Mean Corpuscular Hemoglobin 30.6, Mean Corpuscular Hemoglobin Concent 32.7, Red Cell Distribution Width 13.3, Calcium Level 9.1 Vital Signs Date Time Temp Pulse Resp B/P (MAP) Pulse Ox O2 Delivery O2 Flow Rate FiO2 01/21/19 08:04 163/71 01/21/19 08:02 18 01/21/19 06:00 97.1 79 99 01/15/19 20:45 Room Air I&O- Last 24 Hours up to 6 AM 01/21/19 06:00 Intake Total 2160 ml Output Total 4575 ml Balance -2415 ml ANMOL NEFF MD Jan 21, 2019 10:45
[2019-01-21 14:00] VITALS: BP 132/71
[2019-01-21] MEDS ORDERED: NICOTINE 14 MG/24 HR TRANSDERMAL TD SCH (21:00)
[2019-01-21] MEDS: DULoxetine 30 MG CAP (CYMBALTA) PO SCH (21:58)
[2019-01-21] MEDS: AMITRIPTYLINE 25 MG TAB PO SCH (21:59)
[2019-01-21] MEDS: CETIRIZINE (ZyrTEC) 10 MG TAB PO SCH (21:59)
[2019-01-21 22:00] VITALS: BP 131/72
[2019-01-22] MEDS: oxyCODONE 5MG TAB PO PRN (02:09)
[2019-01-22 06:00] VITALS: BP 156/86
[2019-01-22] MEDS: NICOTINE 14 MG/24 HR TRANSDERMAL TD SCH (06:11)
[2019-01-22 06:49] LABS: BLOOD UREA NITROGEN 12 MG/DL (7-18); CALCIUM LEVEL 8.9 MG/DL (8.5-10.1); CARBON DIOXIDE LEVEL 31 MEQ/L (21-32); CHLORIDE LEVEL 104 MEQ/L (98-107); CREATININE FOR GFR 0.68 MG/DL (0.55-1.30); GLOMERULAR FILTRATION RATE > 60.0 (>58); GLUCOSE, FASTING 89 MG/DL (70-100); MAGNESIUM LEVEL 1.9 MG/DL (1.8-2.4); POTASSIUM SERUM 3.1 MEQ/L (3.5-5.1); SODIUM LEVEL 141 MEQ/L (136-145)
[2019-01-22] MEDS: HumaLOG INSULIN (NovoLOG) PER UNIT SC SCH ×4 (07:30→21:00)
[2019-01-22] MEDS: PREGABALIN 100 MG CAP (LYRICA) PO SCH ×3 (09:14→21:36)
[2019-01-22] MEDS: DOCUSATE SODIUM 100 MG CAP PO SCH ×3 (09:14→21:36)
[2019-01-22] MEDS: VITAMIN D 1,000 INTERNATIONAL UNITS TABLET PO SCH (09:14)
[2019-01-22] MEDS: GABAPENTIN 400 MG CAP PO SCH ×3 (09:14→21:36)
[2019-01-22] MEDS: OMEPRAZOLE 20 MG CAP PO SCH ×2 (09:15→21:37)
[2019-01-22] MEDS: ARIPiprazole 2 MG TAB PO SCH (09:15)
[2019-01-22] MEDS: FERROUS SULFATE 325MG TAB PO SCH (09:15)
[2019-01-22] MEDS: MONTELUKAST 10 MG TAB PO SCH (09:15)
[2019-01-22] MEDS: buPROPion (WELLBUTRIN SR) 100 MG SR TAB PO SCH ×2 (09:15→21:36)
[2019-01-22] MEDS: oxyBUTYnin *DITROPAN XL* 5 MG TABCR PO SCH (09:15)
[2019-01-22] MEDS: NITROFURANTOIN (MACROBID) 100 MG CAP PO SCH ×2 (09:15→21:36)
[2019-01-22] MEDS: SPIRONOLACTONE 25 MG TAB PO SCH ×2 (09:15→17:41)
[2019-01-22] MEDS: PRAMIPEXOLE 0.25 MG TAB PO SCH ×2 (09:15→21:35)
[2019-01-22] MEDS: SUCRALFATE 1 GM TAB PO SCH ×4 (09:15→21:36)
[2019-01-22] MEDS: FAMOTIDINE 20 MG TAB PO SCH ×2 (09:15→21:36)
[2019-01-22] MEDS: miSOPROStol 200 MCG TAB (S0191) PO SCH ×2 (09:15→21:35)
[2019-01-22] MEDS: ENOXAPARIN 40 MG/0.4 ML SYRINGE (J1650) SC SCH (09:16)
[2019-01-22] MEDS: LOSARTAN 25 MG TAB PO SCH (09:16)
[2019-01-22] MEDS: MORPHINE 15 MG SA TAB PO SCH ×2 (09:16→21:37)
[2019-01-22] MEDS: POTASSIUM CHLORIDE 10 MEQ SR TABLET PO SCH (09:16)
[2019-01-22] MEDS: FUROSEMIDE 40 MG/4 ML VIAL (J1940) IV SCH ×2 (09:17→17:41)
--- NOTE | 2019-01-22 10:30 | IPNPDOC ---
Text Note Date of Service The patient was seen on 01/22/19. NOTE Subjective: Patient seen and examined at bedside. No new medical complaints. No acute overnight events reported. Objective: General Exam: NAD, sitting comfortably in chair, hirsute HEENT: NC/AT, EOMI Chest Exam: CTA B/L Heart Exam: +S1S2, RRR Abdomen Exam: soft, obese, NT, +BS Extremity Exam: bandages in place b/l LE Assessment/Plan: 43 yo woman with chronic lymphedema who presents to the hospital unable to ambulate due to massive tense lower extremity lymphedema in the setting of six weeks of non adherence to her diuretic and leg wraps, in a time of psychosocial difficulty with separation from her significant other, complicated with precarious housing. #Tense severe lower extremity lymphedema: - adjust diuretic - aldactone 25 BID, lasix 40 IV BID -PT consult for leg wrapping -leg elevation when supine or sitting -physical therapy for ambulation # bacteruria - difficult to ascertain if UTI - completed course of macrobid #Diabetes -SSI -hold home metformin -hypoglycemia protocol -FSBG AC/HS #Frequent falls - likely secondary to LE edema and severe neuropathy with loss of proprioception -CT head to r/o intracranial pathology given history of multiple falls -Vit B12, B6, iron #Peripheral neuropathy: -Gabapentin 900 TID -Lyrica 200 TID -duloxetine 90 QHS -amitriptyline 25 QHS #Chronic pain -continue MS contin 15 BID -Oxy 5Q4H PRN -Flexeril 10Q8H PRN #Morbid obesity -complicates medical care #RYAN -CPAP #HTN -continue losartan 25 QD #Depression: -continue aripripazole, duloxetine, amitriptyline, Wellbutrin #COPD/asthma -Singulair -albuterol PRN -Flonase PRN #GERD: -Omeprazole -Famotidine -Sucralfate #Overactive bladder: -Oxybutynin #DVT prophylaxis: lovenox 40 QD Dispo: pending volume optimization, check echo VS,Fishbone, I+O VS, Fishbone, I+O Laboratory Tests 01/22/19 05:31 Calcium Level 8.9 Vital Signs Date Time Temp Pulse Resp B/P (MAP) Pulse Ox O2 Delivery O2 Flow Rate FiO2 01/22/19 09:16 16 01/22/19 09:16 139/80 01/22/19 06:00 97.4 88 94 I&O- Last 24 Hours up to 6 AM 01/22/19 06:00 Intake Total 1880 ml Output Total 4900 ml Balance -3020 ml ANMOL NEFF MD Jan 22, 2019 10:30
[2019-01-22 14:00] VITALS: BP 123/74
[2019-01-22] MEDS: AMITRIPTYLINE 25 MG TAB PO SCH (21:36)
[2019-01-22] MEDS: DULoxetine 30 MG CAP (CYMBALTA) PO SCH (21:36)
[2019-01-22] MEDS: CETIRIZINE (ZyrTEC) 10 MG TAB PO SCH (21:36)
[2019-01-22 22:00] VITALS: BP 148/72
[2019-01-23] MEDS: oxyCODONE 5MG TAB PO PRN (02:13)
[2019-01-23] MEDS: NICOTINE 14 MG/24 HR TRANSDERMAL TD SCH (05:53)
[2019-01-23 06:00] VITALS: BP 146/76
[2019-01-23 06:34] LABS: BLOOD UREA NITROGEN 14 MG/DL (7-18); CALCIUM LEVEL 9.2 MG/DL (8.5-10.1); CARBON DIOXIDE LEVEL 30 MEQ/L (21-32); CHLORIDE LEVEL 105 MEQ/L (98-107); CREATININE FOR GFR 0.73 MG/DL (0.55-1.30); GLOMERULAR FILTRATION RATE > 60.0 (>58); GLUCOSE, FASTING 102 MG/DL (70-100); POTASSIUM SERUM 3.5 MEQ/L (3.5-5.1); SODIUM LEVEL 141 MEQ/L (136-145)
[2019-01-23] MEDS: HumaLOG INSULIN (NovoLOG) PER UNIT SC SCH (07:30)
[2019-01-23] MEDS: ENOXAPARIN 40 MG/0.4 ML SYRINGE (J1650) SC SCH (10:09)
[2019-01-23] MEDS: VITAMIN D 1,000 INTERNATIONAL UNITS TABLET PO SCH (10:10)
[2019-01-23] MEDS: GABAPENTIN 400 MG CAP PO SCH (10:10)
[2019-01-23] MEDS: SUCRALFATE 1 GM TAB PO SCH (10:10)
[2019-01-23] MEDS: PRAMIPEXOLE 0.25 MG TAB PO SCH (10:10)
[2019-01-23] MEDS: DOCUSATE SODIUM 100 MG CAP PO SCH (10:10)
[2019-01-23] MEDS: MORPHINE 15 MG SA TAB PO SCH (10:10)
[2019-01-23] MEDS: SPIRONOLACTONE 25 MG TAB PO SCH (10:11)
[2019-01-23] MEDS: POTASSIUM CHLORIDE 10 MEQ SR TABLET PO SCH (10:11)
[2019-01-23] MEDS: FAMOTIDINE 20 MG TAB PO SCH (10:11)
[2019-01-23] MEDS: NITROFURANTOIN (MACROBID) 100 MG CAP PO SCH (10:11)
[2019-01-23] MEDS: PREGABALIN 100 MG CAP (LYRICA) PO SCH (10:11)
[2019-01-23] MEDS: OMEPRAZOLE 20 MG CAP PO SCH (10:11)
[2019-01-23 10:12] VITALS: BP 146/76
[2019-01-23] MEDS: buPROPion (WELLBUTRIN SR) 100 MG SR TAB PO SCH (10:12)
[2019-01-23] MEDS: MONTELUKAST 10 MG TAB PO SCH (10:12)
[2019-01-23] MEDS: miSOPROStol 200 MCG TAB (S0191) PO SCH (10:12)
[2019-01-23] MEDS: oxyBUTYnin *DITROPAN XL* 5 MG TABCR PO SCH (10:12)
[2019-01-23] MEDS: LOSARTAN 25 MG TAB PO SCH (10:12)
[2019-01-23] MEDS: ARIPiprazole 2 MG TAB PO SCH (10:13)
[2019-01-23] MEDS: FUROSEMIDE 40 MG/4 ML VIAL (J1940) IV SCH (10:13)
[2019-01-23] MEDS: FERROUS SULFATE 325MG TAB PO SCH (10:13)
[2019-01-23] MEDS ORDERED: ALDA25TA2 PO (10:47)
[2019-01-23] MEDS ORDERED: NICO2GUM PO (10:47)
[2019-01-23] MEDS ORDERED: NICO14PA TD (10:47)
--- NOTE | 2019-01-23 17:38 | DS.PDOC ---
Discharge Summary General Date of Admission Jan 15, 2019 at 18:14 Date of Discharge 01/23/19 Discharge Summary PROCEDURES PERFORMED DURING STAY: [None]. DISCHARGE DIAGNOSES: #Tense severe lower extremity lymphedema: # bacteruria #Diabetes #Peripheral neuropathy: #Chronic pain #Morbid obesity #RYAN #HTN #Depression: #COPD/asthma #GERD #Overactive bladder COMPLICATIONS/CHIEF COMPLAINT: Lymphedema. HISTORY OF PRESENT ILLNESS: . HOSPITAL COURSE: #Tense severe lower extremity lymphedema: - diuresed well with no renal insufficiency - continue lasix 40BID, aldactone 25 BID - continue leg wraps/PT - patient prefers to come to hospital for PT # bacteruria - difficult to ascertain if UTI given diuresis from diuretic therapy - completed course of macrobid #Diabetes #Frequent falls - likely secondary to LE edema and severe neuropathy with loss of proprioception -CT head to r/o intracranial pathology given history of multiple falls -Vit B12, B6, iron - cleared by PT #Peripheral neuropathy: -Gabapentin 900 TID -Lyrica 200 TID -duloxetine 90 QHS -amitriptyline 25 QHS #Chronic pain -continue MS contin 15 BID -Oxy 5Q4H PRN -Flexeril 10Q8H PRN #Morbid obesity -complicates medical care #RYAN -CPAP #HTN -continue losartan 25 QD #Depression: -continue aripripazole, duloxetine, amitriptyline, Wellbutrin #COPD/asthma -Singulair -albuterol PRN -Flonase PRN #GERD: -Omeprazole -Famotidine -Sucralfate #Overactive bladder: -Oxybutynin #DVT prophylaxis: lovenox 40 QD DISCHARGE MEDICATIONS: Please see below. ALLERGIES: Please see below. PHYSICAL EXAMINATION ON DISCHARGE: General Exam: NAD, sitting comfortably in chair, hirsute HEENT: NC/AT, EOMI Chest Exam: CTA B/L Heart Exam: +S1S2, RRR Abdomen Exam: soft, obese, NT, +BS Extremity Exam: bandages in place b/l LE LABORATORY DATA: Please see below. ACTIVITY: [As tolerated]. DISPOSITION: 01 Home, Self-Care. DISCHARGE INSTRUCTIONS: 1. Follow up PCP in 3-5 days. 2. Recommend repeat labs to monitor for hypokalemia/hypomagnesemia. DISCHARGE CONDITION: [Stable]. TIME SPENT ON DISCHARGE: 35 minutes. Vital Signs/I&Os Vital Signs Date Time Temp Pulse Resp B/P (MAP) Pulse Ox O2 Delivery O2 Flow Rate FiO2 01/23/19 10:12 146/76 01/23/19 10:10 18 01/23/19 06:00 97.0 84 99 I&O- Last 24 Hours up to 6 AM 01/23/19 06:00 Intake Total 1925 ml Output Total 2700 ml Balance -775 ml Laboratory Data Labs 24H Laboratory Tests 2 01/22/19 20:35: Bedside Glucose (Misc Panel) 179H 01/23/19 05:32: Anion Gap 6L, Glomerular Filtration Rate > 60.0, Blood Urea Nitrogen 14, Creatinine 0.73, Sodium Level 141, Potassium Level 3.5, Chloride Level 105, Carbon Dioxide Level 30, Calcium Level 9.2, Magnesium Level 2.0 CBC/BMP Laboratory Tests 01/23/19 05:32 Calcium Level 9.2 FSBS Laboratory Tests Test 01/22/19 20:35 Range/Units Bedside Glucose (Misc Panel) 179 70-105 MG/DL Microbiology Microbiology 01/15/19 Urine Culture - Final, Complete Escherichia Coli Discharge Medications Scheduled Amitriptyline HCl (Amitriptyline HCl) 25 Mg Tab, 25 MG PO QHS, (Reported) Aripiprazole (Aripiprazole) 2 Mg Tablet, 2 MG PO DAILY, (Reported) Bupropion Hcl (Bupropion HCl Sr) 100 Mg Tab, 100 MG PO BID, (Reported) Cetirizine HCl (Cetirizine HCl) 10 Mg Tab, 10 MG PO QHS, (Reported) Cholecalciferol (Vitamin D3) (Vitamin D3) 5,000 Unit Capsule, 5,000 UNITS PO DAILY, (Reported) Docusate Sodium (Docusate Sodium) 100 Mg Cap, 100 MG PO TID, (Reported) Duloxetine HCl (Duloxetine HCl) 60 Mg Capsule.dr, 60 MG PO QHS, (Reported) 90MG TOTAL Duloxetine Hcl (Duloxetine HCl) 30 Mg Cap, 30 MG PO QHS, (Reported) 90MG TOTAL Famotidine (Famotidine) 20 Mg Tablet, 20 MG PO BID, (Reported) Ferrous Sulfate (Iron) 325 Mg Tablet, 325 MG PO DAILY, (Reported) Furosemide (Furosemide) 40 Mg Tab, 40 MG PO BID, (Reported) Gabapentin (Gabapentin) 800 Mg Tablet, 800 MG PO TID, (Reported) Losartan Potassium (Losartan Potassium) 25 Mg Tab, 25 MG PO DAILY, (Reported) Metformin HCl (Metformin HCl) 1,000 Mg Tablet, 1,000 MG PO BID, (Reported) Misoprostol (Misoprostol) 200 Mcg Tablet, 400 MCG PO BID, (Reported) Montelukast Sodium (Montelukast Sodium) 10 Mg Tab, 10 MG PO DAILY, (Reported) Morphine Sulfate (Morphine Sulfate ER) 15 Mg Tablet.er, 15 MG PO Q12H, (Reported) Nicotine (Nicotine Patch) 14 Mg Patch.td24, 1 PATCH TD DAILY@0600 Omeprazole (Omeprazole) 20 Mg Capsule.dr, 20 MG PO BID, (Reported) Oxybutynin Chloride (Ditropan Xl) 10 Mg Tab, 10 MG PO DAILY, (Reported) Pramipexole Di-HCl (Mirapex) 0.25 Mg Tablet, 0.25 MG PO BID, (Reported) Pregabalin (Lyrica) 200 Mg Cap, 200 MG PO TID, (Reported) Spironolactone (Aldactone) 25 Mg Tablet, 25 MG PO BID@09,17 Sucralfate (Carafate) 1 Gm Tablet, 1 GM PO ACHS, (Reported) Scheduled PRN Albuterol Sulfate (Ventolin Hfa) 18 Gm Hfa.aer.ad, 2 PUFF INH Q4H PRN for SOB/WHEEZING, (Reported) Cyclobenzaprine HCl (Cyclobenzaprine HCl) 10 Mg Tab, 10 MG PO Q8H PRN for MUSCLE SPASMS, (Reported) Fluticasone Propionate (Fluticasone Propionate) 16 Gm Gordon.susp, 2 SPRAY NARES DAILY PRN for CONGESTION, (Reported) Nicotine Polacrilex (Nicotine Gum) 2 Mg Gum, 2 MG PO Q4HP PRN for NICOTINE WITHDRAWAL Oxycodone HCl (Oxycodone HCl) 5 Mg Tab, 5 MG PO Q8H PRN for PAIN, (Reported) Polyvinyl Alcohol (Artificial Tears) 1.4 % Lenore, 1 DROP OU QID PRN for DRY EYES, (Reported) Allergies Coded Allergies: Sulfa (Sulfonamide Antibiotics) (Verified Allergy, Intermediate, rash, 01/14/19) NSAIDS (Non-Steroidal Anti-Inflamma (Verified Adverse Reaction, Intermediate, Due to gastric bypass, 01/14/19) ANMOL NEFF MD Jan 23, 2019 17:38
--- NOTE | 2019-01-24 07:36 | ECHO ---
TWO-DIMENSIONAL ECHOCARDIOGRAM REPORT DATE: 01/23/2019 REFERRING PHYSICIAN: Dr. Pastrana INDICATION: Edema. HEIGHT: 155 cm. WEIGHT: 135 kg. DIMENSIONS: IVS 1.0 LV 4.3 LVPW 1.0 LA 3.7 AORTA 3.1 IVC 1.5 Mitral E wave velocity 93 A wave 72 E prime septal 6.3 E prime lateral 10.3 FINDINGS: The study is of acceptable technical quality. The patient is in sinus rhythm. Left ventricle is normal size and systolic function with estimated left ventricular ejection fraction (LVEF) 65-70%. Right ventricle also appears normal size. Both atria appear normal. All four cardiac valves were reasonably well seen and appear normal. No pericardial effusion is noted. Inferior vena cava is normal size. Aortic root and aortic arch appear normal. Abdominal aorta was not well seen. Doppler interrogation reveals competent aortic valve. There is also no significant mitral tricuspid stenosis or insufficiency. Pulmonic valve also appears functionally intact. Mitral inflow pattern and tissue Doppler imaging of mitral annulus reveal likely normal diastolic function. CONCLUSIONS: 1. Study is of acceptable technical quality. 2. Normal left ventricle (LV) size with preserved LV systolic and diastolic function. 3. No significant valvular disease. 4. Likely normal central venous pressure. 5. Unable to estimate pulmonary artery pressure but no signs to suggest pulmonary hypertension. COMMENT: SBE prophylaxis is not recommended. Study argues against cardiac causes of the patient's edema.
[2019-01-24] MEDS ORDERED: SPIR-10 PO (12:45)
== END 2019-01-23 11:29 | disposition home or self-care (01) | DRG 385 ==
LOC: M ED 13:47 → EEVIPCON 18:14 → M ED INP 18:14 → M MSPAV 22:07
PROVIDERS: ADMIT Internal Medicine; ATTEND Internal Medicine
DX: I89.0 Lymphedema, not elsewhere classified (principal); E11.51 Type 2 diabetes mellitus with diabetic peripheral angiopathy without gangrene; E66.01 Morbid (severe) obesity due to excess calories; Z68.43 Body mass index [BMI] 50.0-59.9, adult; Z91.14 Patient's other noncompliance with medication regimen; J45.909 Unspecified asthma, uncomplicated; K21.9 Gastro-esophageal reflux disease without esophagitis; G89.29 Other chronic pain; G47.33 Obstructive sleep apnea (adult) (pediatric); I10 Essential (primary) hypertension; F32.9 Major depressive disorder, single episode, unspecified; R29.6 Repeated falls; N32.81 Overactive bladder; Z79.899 Other long term (current) drug therapy; Z88.6 Allergy status to analgesic agent; Z88.2 Allergy status to sulfonamides; E78.5 Hyperlipidemia, unspecified; F17.200 Nicotine dependence, unspecified, uncomplicated; Z91.19 Patient's noncompliance with other medical treatment and regimen; Z59.0 Homelessness

== ENCOUNTER 2019-01-24 09:58 | Observation (INO) | payer OTHER ==
[~2019-01-24] VITALS: Ht 154.9 cm; Wt 133.4 kg
[~2019-01-24 09:58] MED LIST changes: +ALDA25TA2 PO; +DULO60CA35 PO; +FLUTISP NARES; +GABA800T4 PO; +METF-877 PO; +MIRA0.254 PO; +MORP15TASA PO; +NICO14PA TD; +NICO2GUM PO; +OMEP20CA4 PO
[2019-01-24] MEDS ORDERED: GLUCOSE 4 GM CHEW TABLET PO PRN (12:30)
[2019-01-24] MEDS ORDERED: GLUCAGON FOR INJ 1 MG VIAL (J1610) SC PRN (12:30)
[2019-01-24] MEDS ORDERED: DEXTROSE 50% 50 ML SYRINGE IV PRN (12:30)
[2019-01-24] MEDS ORDERED: ALBUTEROL SULFATE 2.5 MG/0.5 ML INH NEB SOLN INH PRN (12:45)
[2019-01-24] MEDS ORDERED: SPIR-10 PO (12:45)
[2019-01-24] MEDS ORDERED: NS 1,000 ML IV SCH (13:00)
[2019-01-24 13:09] LABS: HEMATOCRIT 42.9 % (36.0-47.0); HEMOGLOBIN 14.3 g/dl (12.0-15.5); MEAN CORPUSCULAR HEMOGLOBIN 31.2 pg (27.0-33.0); MEAN CORPUSCULAR HGB CONC 33.3 g/dl (32.0-36.5); MEAN CORPUSCULAR VOLUME 93.7 fl (80.0-96.0); PLATELET COUNT, AUTOMATED 331 10^3/uL (150-450); RED BLOOD COUNT 4.58 10^6/uL (4.00-5.40); WHITE BLOOD COUNT 14.1 10^3/uL (4.0-10.0)
[2019-01-24 13:26] LABS: CK-MB VALUE MASS 3.8 NG/ML (<3.6); CPK CREATINE PHOSPHOKINASE 193 U/L (26-192); MB/CK RELATIVE INDEX 1.97 (< OR =4); TROPONIN I < 0.02 NG/ML (< 0.10)
[2019-01-24] MEDS ORDERED: FLUTICASONE PROP 0.05% NASAL SPRAY 16 GM (FLONASE) NARES PRN (13:30)
[2019-01-24] MEDS ORDERED: POLYVINYL ALCOHOL OPHTH SOLN 15 ML(LIQUITEARS) OU PRN (13:30)
[2019-01-24 13:33] LABS: ALBUMIN 3.5 GM/DL (3.2-5.2); ALT/SGPT 60 U/L (12-78); BILIRUBIN,TOTAL 0.3 MG/DL (0.2-1.0); BLOOD UREA NITROGEN 12 MG/DL (7-18); CALCIUM LEVEL 9.5 MG/DL (8.5-10.1); CARBON DIOXIDE LEVEL 28 MEQ/L (21-32); CHLORIDE LEVEL 104 MEQ/L (98-107); CREATININE FOR GFR 0.82 MG/DL (0.55-1.30); GLOMERULAR FILTRATION RATE > 60.0 (>58); GLUCOSE, FASTING 90 MG/DL (70-100); MAGNESIUM LEVEL 1.7 MG/DL (1.8-2.4); POTASSIUM SERUM 3.5 MEQ/L (3.5-5.1); SODIUM LEVEL 140 MEQ/L (136-145); TOTAL PROTEIN 7.6 GM/DL (6.4-8.2)
--- NOTE | 2019-01-24 13:42 | HPEPDOC ---
[facility] Medical History & Physical Date of Admission Jan 24, 2019 Date of Service: Jan 24, 2019 Primary Care Physician: A Other Provider Hayden Iverson Attending Physician: RENAE WHITE MD History and Physical CHIEF COMPLAINT: Dizziness HISTORY OF PRESENT ILLNESS: Ms. Mccray is a 43-year-old female, with a past medical history significant for morbid obesity, diabetes, COPD, chronic lymphedema, who presented to the ED with a chief complaint of dizziness. She was previously admitted to [facility] on 01/15/2019 for worsening lymphedema in the setting of having stopped taking her Lasix and wrapp ing her legs, which was inhibiting her ability to walk. While admitted, she was aggressively diuresed with Lasix 40 mg twice a day and Aldactone 25 mg twice a day. Ms. Mccray was discharged on 01/23/2019 with a diagnosis of tense severe lower extremity lymphedema and was told to continue both Lasix 40 mg BID and Aldactone 25 mg BID. She was told to follow-up with her PCP in 3-5 days, as well as to attend PT sessions at the hospital. Ms. Mccray states that last night she felt weak and fell as she was rising from a seated position on the edge of her bed. She denies losing consciousness. She states she hit her knees as she fell and she denies hitting her head. She fell back asleep and upon awakening in the morning felt weak. Shortly after waking up she had 2 cups of coffee as well as a energy drink, which she attributes to her present sensation of weakness. She denies headache, changes in vision or hearing, shortness of breath, chest pain, chest pressure, palpitations, nausea or vomiting, polyuria or anuria. PAST MEDICAL HISTORY: Morbid obesity. Diabetes Hypertension RYAN. COPD Asthma. Active smoker. Depression. Hyperlipidemia. Chronic lymphedema Depression PAST SURGICAL HISTORY: Adenoidectomy. Tonsillectomy. Cholecystectomy SOCIAL HISTORY: Marital status: Recently from Resides in: [place], [place] Employment: Disabled Tobacco use: Current smoker. Approximately 1 pack per day ETOH: Denies use or past use Illicit drug use: Denies IV drug use: Denies Other relevant social factors: No recent travel, recent sick contacts. Patient does have a history of depression FAMILY HISTORY: NO PERTINENT FAMILY HISTORY ALLERGIES: Please see below. REVIEW OF SYSTEMS: CONSTITUTIONAL: Denies recent weight gain or loss. Denies fever or chills. HEENT: Denies changes in vision, hearing, headache, rhinorrhea, dysphagia. CARDIOVASCULAR: Denies chest pain, pressure, pleuritic chest pain. RESPIRATORY: Denies shortness of breath, cough, wheezing. Patient uses CPAP at night for RYAN. Reports compliance GASTROINTESTINAL: Denies nausea, vomiting, abdominal pain, acid reflux, (is being managed at home with omeprazole 20, cetirizine 10, famotidine 20). Patient admits to regular bowel movements. No change, so consistency, frequency, caliber, color. GENITOURINARY: Denies changes in urination, polyuria, anuria, dysuria NEUROLOGICAL: Denies recent onset muscle weakness, spasticity, or altered mental status. Denies paresthesias PSYCHIATRIC: Patient will mannered and cooperative to exam. ENDOCRINE: Denies fever or chills, recent weight changes, heart palpitations HEMATOLOGIC/LYMPHATIC: Admits to recent malaise, which is not surprising giving her recent hospital stay and discharge yesterday. HOME MEDICATIONS: Please see below. PHYSICAL EXAMINATION: VITAL SIGNS: Temperature 98.1, pulse 90, respiratory rate, 16, blood pressure 148/72, pulse oximetry 100 % on room air. GENERAL APPEARANCE: Patient is a obese female in no apparent distress, lying in her hospital bed. HEENT: No scleral icterus noted, no jaundice noted. Poor dentition (patient wears dentures on upper palate and wears a partial denture on her lower mandible). No hearing or visual deficits noted. Trachea appears midline. Overall atraumatic CARDIOVASCULAR: Heart rate 90 bpm with regular rate noted. No murmurs, rubs, or knocks, extra heart sounds noted. LUNGS: Clear to auscultation bilaterally with vesicular breath sounds heard throughout. ABDOMEN:. Obese abdomen noted. Patient has 7-8 cm bruise on left upper quadrant which patient states is from her Lovenox injections. Mild tenderness to deep palpation noted in her upper left and right quadrants. No guarding, rebound tenderness, organomegaly, distention noted on exam. MUSCULOSKELETAL: Patient has very limited range of motion in her lower extremities due to severe lymphedema. 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 EXTREMITIES: Obvious extensive lymphedema of the lower extremities noted bilaterally and symmetrically. Dry tense skin noted in her lower extremities bilaterally. No rashes, wounds, ulcers, or discolorations noted. NEUROLOGICAL: No focal deficits noted. LE painful to palpation B/L PSYCHIATRIC: Patient well mannered and cooperative to exam LABORATORY DATA: See below. MICROBIOLOGY: Patient had bacteriuria during previous admission on 01/15. Escherichia coli noted on urine sample. Currently denies dysuria. ASSESSMENT: #Orthostasis likely 2/2 overdiuresis. -Will hold Aldactone and Lasix. Plan to restart once pt is euvolemic and non- orthostatic -Will give NS 60 mL/hr for gentle rehydration for 1 L only -Will consult PT/OT for daily LE wrapping. -Will put patient on bedrest -Will follow orthostatic vitals #Recent history of fall: -likely 2/2 to orthostatic hypotension related to her recent diuresis treatment. -Will hold diuretics while pt is rehydrated -Pt also consumed a large amount of caffeine recently which may be leading to her current state of dehydration and weakness. -Will place on fall precautions -Case management for home assistance #Diabetes -Consistent carb diet -Will hold home metformin -Will control with sliding scale insulin and fasting sugar #Peripheral neuropathy: -Gabapentin 900 TID -Lyrica 200 TID -duloxetine 90 QHS -amitriptyline 25 QHS #Chronic pain -continue MS contin 15 BID -Oxy 5Q4H PRN -Flexeril 10Q8H PRN #Morbid obesity -complicates medical care -BMI 55.6 -Defer to outpatient provider for weight management #Nicotine dependence -Plan to provide smoking cessation guidance and nicotine patch 14 mg QD PRN #RYAN -CPAP protocol #HTN -continue losartan 25 QD with hold parameter SBP <120 #Depression: -continue aripripazole, duloxetine, amitriptyline, Wellbutrin #COPD/asthma -Singulair -albuterol PRN -Flonase PRN #GERD: -Omeprazole -Famotidine -Sucralfate #Overactive bladder: -Oxybutynin #DVT prophylaxis: -Subcutaneous Heparin 5000 units Q8H Vital Signs Vital Signs Date Time Temp Pulse Resp B/P (MAP) Pulse Ox O2 Delivery O2 Flow Rate FiO2 01/24/19 12:00 92 97/55 (69) 98 01/24/19 11:33 17 01/24/19 11:30 Room Air 01/24/19 09:59 96.5 Laboratory Data Labs 24H Laboratory Tests 2 01/24/19 10:59: POC Glucose (Misc Panel) 104, POC Sodium (Misc Panel) 139, POC Potassium (Misc Panel) 3.4L, POC Chloride (Misc Panel) 100, POC Total CO2 (Misc Panel) 31.0H, POC Blood Urea Nitrogen (Misc Panel 13, POC Ionized Calcium (Misc Panel) 4.5, POC Creatinine (Misc Panel) 0.8, POC Hematocrit (Misc Panel) 46.0 01/24/19 12:50: CBC/BMP Home Medications Scheduled Amitriptyline HCl (Amitriptyline HCl) 25 Mg Tab, 25 MG PO QHS Aripiprazole (Aripiprazole) 2 Mg Tablet, 2 MG PO QHS Bupropion Hcl (Bupropion HCl Sr) 100 Mg Tab, 100 MG PO BID Cetirizine HCl (Cetirizine HCl) 10 Mg Tab, 10 MG PO QHS Cholecalciferol (Vitamin D3) (Vitamin D3) 5,000 Unit Capsule, 5,000 UNITS PO DAILY Docusate Sodium (Docusate Sodium) 100 Mg Cap, 100 MG PO TID Duloxetine HCl (Duloxetine HCl) 60 Mg Capsule.dr, 60 MG PO QHS 90MG TOTAL Duloxetine Hcl (Duloxetine HCl) 30 Mg Cap, 30 MG PO QHS 90MG TOTAL Famotidine (Famotidine) 20 Mg Tablet, 20 MG PO BID Ferrous Sulfate (Iron) 325 Mg Tablet, 325 MG PO QPM Furosemide (Furosemide) 40 Mg Tab, 40 MG PO BID Gabapentin (Gabapentin) 800 Mg Tablet, 800 MG PO TID Losartan Potassium (Losartan Potassium) 25 Mg Tab, 25 MG PO DAILY Metformin HCl (Metformin HCl) 1,000 Mg Tablet, 1,000 MG PO BID Misoprostol (Misoprostol) 200 Mcg Tablet, 400 MCG PO BID Montelukast Sodium (Montelukast Sodium) 10 Mg Tab, 10 MG PO DAILY Morphine Sulfate (Morphine Sulfate ER) 15 Mg Tablet.er, 15 MG PO Q12H Omeprazole (Omeprazole) 20 Mg Capsule.dr, 20 MG PO BID Oxybutynin Chloride (Ditropan Xl) 10 Mg Tab, 10 MG PO DAILY Pramipexole Di-HCl (Mirapex) 0.25 Mg Tablet, 0.25 MG PO BID Pregabalin (Lyrica) 200 Mg Cap, 200 MG PO TID Spironolactone (Spironolactone) 25 Mg Tablet, 25 MG PO BID Sucralfate (Carafate) 1 Gm Tablet, 1 GM PO ACHS Scheduled PRN Albuterol Sulfate (Ventolin Hfa) 18 Gm Hfa.aer.ad, 2 PUFF INH Q4H PRN for SOB/WHEEZING Cyclobenzaprine HCl (Cyclobenzaprine HCl) 10 Mg Tab, 10 MG PO Q8H PRN for MUSCLE SPASMS Fluticasone Propionate (Fluticasone Propionate) 16 Gm [place].susp, 2 SPRAY NARES DAILY PRN for CONGESTION Oxycodone HCl (Oxycodone HCl) 5 Mg Tab, 5 MG PO Q8H PRN for PAIN Polyvinyl Alcohol (Artificial Tears) 1.4 % [place], 1 DROP OU QID PRN for DRY EYES Allergies Coded Allergies: Sulfa (Sulfonamide Antibiotics) (Verified Allergy, Intermediate, rash, 01/24/19) NSAIDS (Non-Steroidal Anti-Inflamma (Verified Adverse Reaction, Intermediate, Due to gastric bypass, 01/24/19) A-FIB/CHADSVASC A-FIB History Current/History of A-Fib/PAF?: No Current PO Anticoag Therapy: No GME ATTESTATION GME ATTESTATION My faculty preceptor for this patient encounter was physically present during the encounter and was fully available. All aspects of the patient interview, examination, medical decision making process, and medical care plan development were reviewed and approved by the faculty preceptor. The faculty preceptor is aware and concurs with the plan as stated in the body of this note and will attest to such by his/her cosignature. ATTENDING NOTE I, Renea White, have independently examined this patient and performed my own physical exam, as well as reviewed the documentation and edited where necessary. I have discussed in detail with the resident / student the findings and plan of treatment as documented by the resident / student and edited their note. I agree with their findings and treatment plan and have edited their documentation. I will continue to follow the patient during this hospital stay. ROBERT MCDONALD OMS-3 Jan 24, 2019 13:42 RENAE WHITE MD Jan 24, 2019 17:31
[2019-01-24] MEDS ORDERED: MAG SULF 1GM/100ML (MAG RUN) 1 GM in IV 1 EA IV ONE (13:45)
[2019-01-24] MEDS: HEPARIN SOD (PORCINE) 5000 UNITS/ML VIAL SC SCH ×2 (14:37→21:10)
[2019-01-24] MEDS: ALBUTEROL SULFATE 2.5 MG/0.5 ML INH NEB SOLN INH SCH ×2 (14:52→19:30)
[2019-01-24] MEDS ORDERED: CYCLOBENZAPRINE 10 MG TAB PO PRN (15:00)
[2019-01-24] MEDS ORDERED: POTASSIUM CHLORIDE 10 MEQ SR TABLET PO ONE (16:00)
[2019-01-24 16:38] VITALS: BP 117/77
[2019-01-24 16:54] VITALS: BP_SYST 101; BP_SYST 106; BP_SYST 98; BP_DIAS 54; BP_DIAS 65; BP_DIAS 66
[2019-01-24] MEDS: GABAPENTIN 400 MG CAP PO SCH ×2 (17:15→21:10)
[2019-01-24] MEDS: SUCRALFATE 1 GM TAB PO SCH ×2 (17:15→21:10)
[2019-01-24] MEDS: PREGABALIN 100 MG CAP (LYRICA) PO SCH ×2 (17:16→21:07)
[2019-01-24] MEDS: DOCUSATE SODIUM 100 MG CAP PO SCH ×2 (17:16→21:08)
[2019-01-24] MEDS: HumaLOG INSULIN (NovoLOG) PER UNIT SC SCH ×2 (17:16→21:00)
[2019-01-24] MEDS: NICOTINE 14 MG/24 HR TRANSDERMAL TD PRN (17:22)
[2019-01-24] MEDS: oxyCODONE 5MG TAB PO PRN (17:22)
[2019-01-24] MEDS: FERROUS SULFATE 325MG TAB PO SCH (21:07)
[2019-01-24] MEDS: miSOPROStol 200 MCG TAB (S0191) PO SCH (21:08)
[2019-01-24] MEDS: FAMOTIDINE 20 MG TAB PO SCH (21:08)
[2019-01-24] MEDS: OMEPRAZOLE 20 MG CAP PO SCH (21:08)
[2019-01-24] MEDS: MORPHINE 15 MG SA TAB PO SCH (21:09)
[2019-01-24] MEDS: PRAMIPEXOLE 0.25 MG TAB PO SCH (21:09)
[2019-01-24] MEDS: buPROPion (WELLBUTRIN SR) 100 MG SR TAB PO SCH (21:09)
[2019-01-24] MEDS: AMITRIPTYLINE 25 MG TAB PO SCH (21:09)
[2019-01-24] MEDS: ARIPiprazole 2 MG TAB PO SCH (21:09)
[2019-01-24] MEDS: CETIRIZINE (ZyrTEC) 10 MG TAB PO SCH (21:10)
[2019-01-24] MEDS: DULoxetine 30 MG CAP (CYMBALTA) PO SCH (21:10)
[2019-01-24 22:00] VITALS: BP 129/68
[2019-01-24 22:24] VITALS: BP_SYST 105; BP_SYST 107; BP_SYST 97; BP_DIAS 49; BP_DIAS 70; BP_DIAS 71
[2019-01-25 05:35] LABS: HEMOGLOBIN 12.5 g/dl (12.0-15.5); MEAN CORPUSCULAR HEMOGLOBIN 31.3 pg (27.0-33.0); MEAN CORPUSCULAR HGB CONC 32.9 g/dl (32.0-36.5); PLATELET COUNT, AUTOMATED 271 10^3/uL (150-450)
[2019-01-25] MEDS: HEPARIN SOD (PORCINE) 5000 UNITS/ML VIAL SC SCH ×4 (05:37→21:22)
[2019-01-25 05:46] LABS: WHITE BLOOD COUNT 10.5 10^3/uL (4.0-10.0)
[2019-01-25 05:57] LABS: BLOOD UREA NITROGEN 9 MG/DL (7-18); CALCIUM LEVEL 8.7 MG/DL (8.5-10.1); CARBON DIOXIDE LEVEL 30 MEQ/L (21-32); CHLORIDE LEVEL 109 MEQ/L (98-107); CREATININE FOR GFR 0.64 MG/DL (0.55-1.30); GLOMERULAR FILTRATION RATE > 60.0 (>58); GLUCOSE, FASTING 107 MG/DL (70-100); MAGNESIUM LEVEL 1.9 MG/DL (1.8-2.4); POTASSIUM SERUM 3.4 MEQ/L (3.5-5.1); SODIUM LEVEL 144 MEQ/L (136-145)
[2019-01-25 06:00] VITALS: BP_SYST 105; BP_SYST 115; BP_SYST 118; BP_DIAS 65; BP_DIAS 68; BP_DIAS 70
[2019-01-25 06:05] VITALS: BP 118/70
[2019-01-25 06:10] VITALS: BP 105/65
[2019-01-25 06:43] LABS: EOSINOPHILS 4 % (0-3); LYMPHOCYTES 44 % (16-44); MONOCYTES 6 % (0-5); NEUTROPHILS 46 % (28-66)
[2019-01-25 06:44] LABS: PLATELET ESTIMATE NORMAL (NORMAL)
[2019-01-25] MEDS: ALBUTEROL SULFATE 2.5 MG/0.5 ML INH NEB SOLN INH SCH ×4 (07:16→15:22)
[2019-01-25] MEDS: miSOPROStol 200 MCG TAB (S0191) PO SCH ×2 (07:49→21:21)
[2019-01-25] MEDS: buPROPion (WELLBUTRIN SR) 100 MG SR TAB PO SCH ×2 (07:49→21:19)
[2019-01-25] MEDS: HumaLOG INSULIN (NovoLOG) PER UNIT SC SCH ×4 (07:49→21:00)
[2019-01-25] MEDS: MONTELUKAST 10 MG TAB PO SCH (07:50)
[2019-01-25] MEDS: oxyBUTYnin *DITROPAN XL* 5 MG TABCR PO SCH (07:50)
[2019-01-25] MEDS: GABAPENTIN 400 MG CAP PO SCH ×3 (07:50→21:19)
[2019-01-25] MEDS: FAMOTIDINE 20 MG TAB PO SCH ×2 (07:50→21:19)
[2019-01-25] MEDS: OMEPRAZOLE 20 MG CAP PO SCH ×2 (07:50→21:21)
[2019-01-25] MEDS: SUCRALFATE 1 GM TAB PO SCH ×4 (07:50→21:19)
[2019-01-25] MEDS: PRAMIPEXOLE 0.25 MG TAB PO SCH ×2 (07:50→21:20)
[2019-01-25] MEDS: PREGABALIN 100 MG CAP (LYRICA) PO SCH ×3 (07:50→21:21)
[2019-01-25] MEDS: DOCUSATE SODIUM 100 MG CAP PO SCH ×3 (07:50→21:21)
[2019-01-25] MEDS: NICOTINE 14 MG/24 HR TRANSDERMAL TD PRN (07:51)
[2019-01-25] MEDS: MORPHINE 15 MG SA TAB PO SCH ×2 (07:52→21:20)
[2019-01-25] MEDS: LOSARTAN 25 MG TAB PO SCH (07:52)
[2019-01-25] MEDS ORDERED: POTASSIUM CHLORIDE 10 MEQ SR TABLET PO ONE (08:00)
--- NOTE | 2019-01-25 08:28 | ECGEPIP ---
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
[2019-01-25] MEDS ORDERED: NS 1,000 ML IV ONE (08:30)
--- NOTE | 2019-01-25 10:27 | IPNPDOC ---
Date Seen The patient was seen on 01/25/19. Progress Note SUBJECTIVE: Patient was interviewed and examined in her hospital room. She was found to be seated upright in her chair eating breakfast. She continues to complain of some overall weakness and dizziness, though she does admit to being somewhat improved compared to admission yesterday. She continues to report bilateral knee pain specifically left-sided hip pain which is new from her baseline and began after her fall evening. She denies any chest pain, shortness of breath/d ifficulty breathing. Patient has been eating without difficulty and denies abdominal pain. No difficulty with bowel movements or urination. OBJECTIVE PHYSICAL EXAMINATION: VITAL SIGNS: Please see below. GENERAL: Patient was interviewed and examined in her hospital room. She was found to be seated in a chair at bedside eating breakfast. Patient appears older than stated age, cooperative. She is able to answer questions appropriately and actively participate in her care HEENT: Normocephalic, atraumatic, EOMI, sclera nonicteric, poor dentition and completely edentulous upper palate. CARDIOVASCULAR: Regular rate and rhythm, no murmurs gallops or rubs. Normal S1 and S2 RESPIRATORY: Clear to auscultation bilaterally, no wheezing rales or rhonchi noted. ABDOMINAL: Soft, obese, nontender, nondistended SKIN: Intertriginous candidiasis noted in the inframammary folds bilaterally. EXTREMITIES: Extensive bilateral lymphedema in the lower extremity., Nonpitting. No calf tenderness bilaterally. Slight tenderness to palpation over the left hip. NEUROLOGICAL: Patient is alert and oriented, moving extremities equally bilaterally PSYCHOLOGICAL: Mood and affect are appropriate given patient's current medical condition. LABORATORY DATA Please see below IMAGING STUDIES: Bilateral knee x-ray (01/25/19): Pending Left hip x-ray (01/25/19): Pending MICROBIOLOGY: Please see below. ASSESSMENT: Patient is a 43-year-old female hospital history significant for morbid obesity, diabetes, hypertension, RYAN, COPD, depression, hyperlipidemia and chronic lymphedema who presented to the emergency department less than 24 hours following discharge complaining of increased dizziness and weakness suspected to be secondary from overdiuresis. Orthostatic positive in the emergency department. Patient was readmitted to the hospital and continued on gentle IV rehydration. PROBLEMS: #Orthostasis likely 2/2 overdiuresis. -Continue to hold Aldactone and Lasix. Plan to restart once pt is euvolemic and non-orthostatic -Continue give NS 60 mL/hr for gentle rehydration for additional 500 mL. No rales in lung bases. -Orthostatic negative this morning -Will follow orthostatic vitals #Bilateral lymphedema -PT/OT for daily lower extremity wrapping. -Pending clearance prior to discharge #Intertriginous candidiasis Statin powder #Recent history of fall: -likely 2/2 to orthostatic hypotension related to her recent diuresis treatment. -Will hold diuretics while pt is rehydrated -Pt also consumed a large amount of caffeine recently which may be leading to her current state of dehydration and weakness. -Will place on fall precautions -Case management for home assistance -Bilateral knee and left hip plain films to rule out fracture. #Diabetes -Consistent carb diet -Will hold home metformin -Will control with sliding scale insulin and fasting sugar #Peripheral neuropathy: -Gabapentin 900 TID -Lyrica 200 TID -duloxetine 90 QHS -amitriptyline 25 QHS #Chronic pain -continue MS contin 15 BID -Oxy 5Q4H PRN -Flexeril 10Q8H PRN #Morbid obesity -complicates medical care -BMI 55.6 -Defer to outpatient provider for weight management #Nicotine dependence -Plan to provide smoking cessation guidance and nicotine patch 14 mg QD PRN #RYAN -CPAP protocol #HTN -continue losartan 25 QD with hold parameter SBP <120 #Depression: -continue aripripazole, duloxetine, amitriptyline, Wellbutrin #COPD/asthma -Singulair -albuterol PRN -Flonase PRN #GERD: -Omeprazole -Famotidine -Sucralfate #Overactive bladder: -Oxybutynin #DVT prophylaxis: -Subcutaneous Heparin 5000 units Q8H DISPOSITION: Anticipate D/C pending clinical improvement. CODE STATUS: FULL CODE VS, I&O, 24H, Fishbone Vital Signs/I&O Vital Signs Date Time Temp Pulse Resp B/P (MAP) Pulse Ox O2 Delivery O2 Flow Rate FiO2 01/25/19 08:03 94 15 99 Room Air 01/25/19 07:52 104/66 01/25/19 06:00 97.0 I&O- Last 24 Hours up to 6 AM 01/25/19 06:00 Intake Total 1258 ml Output Total 450 ml Balance 808 ml Laboratory Data 24H LABS Laboratory Tests 2 10/8/19 10:59: POC Glucose (Misc Panel) 104, POC Sodium (Misc Panel) 139, POC Potassium (Misc Panel) 3.4L, POC Chloride (Misc Panel) 100, POC Total CO2 (Misc Panel) 31.0H, POC Blood Urea Nitrogen (Misc Panel 13, POC Ionized Calcium (Misc Panel) 4.5, POC Creatinine (Misc Panel) 0.8, POC Hematocrit (Misc Panel) 46.0 01/24/19 12:50: Nucleated Red Blood Cells % (auto) 0.0, Anion Gap 8, Glomerular Filtration Rate > 60.0, Lactic Acid Level 1.7, Blood Urea Nitrogen 12, Creatinine 0.82, Sodium Level 140, Potassium Level 3.5, Chloride Level 104, Carbon Dioxide Level 28, Calcium Level 9.5, Aspartate Amino Transf (AST/SGOT) 31, Alanine Aminotransferase (ALT/SGPT) 60, Alkaline Phosphatase 117, Total Bilirubin 0.3, Total Protein 7.6, Albumin 3.5, Magnesium Level 1.7L, Total Creatine Kinase 193H, Creatine Kinase MB 3.8H, Creatine Kinase MB Relative Index 1.97, Troponin I < 0.02, Albumin/Globulin Ratio 0.85L 01/24/19 16:39: Bedside Glucose (Misc Panel) 161H 01/24/19 18:56: Urine Color YELLOW, Urine Appearance CLEAR, Urine pH 5.0, Urine Specific [place] 1.011, Urine Protein NEGATIVE, Urine Glucose (UA) NEGATIVE, Urine Ketones NEGATIVE, Urine Blood NEGATIVE, Urine Nitrite NEGATIVE, Urine Bilirubin NEGATIVE, Urine Urobilinogen 0.2, Urine Leukocyte Esterase NEGATIVE, Urine WBC (Auto) 0, Urine RBC (Auto) 3, Urine Hyaline Casts (Auto) 0, Urine Bacteria (Auto) 1+H, Urine Squamous Epithelial Cells 0, Urine Calcium Oxalate Cryst (Auto) SMALL, Urine Sperm (Auto) 01/24/19 20:53: Bedside Glucose (Misc Panel) 235H 01/25/19 05:05: White Blood Count 10.5H, Red Blood Count 4.00, Hemoglobin 12.5, Hematocrit 38.0, Mean Corpuscular Volume 95.0, Mean Corpuscular Hemoglobin 31.3, Mean Corpuscular Hemoglobin Concent 32.9, Red Cell Distribution Width 13.5, Platelet Count 271, Lymphocytes # (Auto) , Nucleated Red Blood Cells % (auto) 0.0, Neutrophils 46, Lymphocytes (Manual) 44, Monocytes (Manual) 6H, Eosinophils (Manual) 4H, Platelet Estimate NORMAL, Red Blood Cell Morphology NORMAL, Anion Gap 5L, Glomerular Filtration Rate > 60.0, Blood Urea Nitrogen 9, Creatinine 0.64, Sodium Level 144, Potassium Level 3.4L, Chloride Level 109H, Carbon Dioxide Level 30, Calcium Level 8.7, Magnesium Level 1.9 CBC/BMP Laboratory Tests 01/24/19 12:50 Red Blood Count 4.58, Mean Corpuscular Volume 93.7, Mean Corpuscular Hemoglobin 31.2, Mean Corpuscular Hemoglobin Concent 33.3, Red Cell Distribution Width 13.3, Calcium Level 9.5, Aspartate Amino Transf (AST/SGOT) 31, Alanine Aminotransferase (ALT/SGPT) 60, Alkaline Phosphatase 117, Total Bilirubin 0.3, Total Protein 7.6, Albumin 3.5 01/25/19 05:05 Red Blood Count 4.00, Mean Corpuscular Volume 95.0, Mean Corpuscular Hemoglobin 31.3, Mean Corpuscular Hemoglobin Concent 32.9, Red Cell Distribution Width 13.5, Calcium Level 8.7, Lymphocytes # (Auto) GME ATTESTATION GME ATTESTATION My faculty preceptor for this patient encounter was physically present during the encounter and was fully available. All aspects of the patient interview, examination, medical decision making process, and medical care plan development were reviewed and approved by the faculty preceptor. The faculty preceptor is aware and concurs with the plan as stated in the body of this note and will attest to such by his/her cosignature. ATTENDING NOTE I, Renae Brock, have independently examined this patient and performed my own physical exam, as well as reviewed the documentation and edited where necessary. I have discussed in detail with the resident / student the findings and plan of treatment as documented by the resident / student and edited their note. I agree with their findings and treatment plan and have edited their documentation. I will continue to follow the patient during this hospital stay. ANTONINO ACOSTA DO Jan 25, 2019 10:27 RENAE BROCK MD Jan 25, 2019 14:27
[2019-01-25] MEDS: NYSTATIN 100,000 UNITS/GM TOPICAL PWD 15 GM TOP SCH ×2 (10:42→21:22)
--- NOTE | 2019-01-25 13:03 | REP ---
Left hip: Two views. History: Left hip pain after a fall. Comparison study: March 07, 2018. Findings: AP and frog-leg views of the left hip demonstrate normal bones, joints, and soft tissues. Impression: Negative left hip radiographs. Electronically Signed by Biju Bui MD 01/25/2019 12:54 P
--- NOTE | 2019-01-25 13:07 | REP ---
Left knee AP and lateral views: Comparison is 06/23/2017. There is tricompartment osteoarthritis, unchanged. There is no fracture or dislocation. There is no effusion. There are no calcifications or foreign bodies. Impression: Tricompartment osteoarthritis. No fracture or effusion. Right knee AP and lateral views: Comparison is 06/23/2017. There is tricompartment osteoarthritis. This is unchanged. There is no fracture or dislocation. There is no effusion. There are no calcifications or foreign bodies. Impression: Tricompartment osteoarthritis. No fracture or effusion. Electronically Signed by Scott Muller MD 01/25/2019 12:58 P
[2019-01-25 14:00] VITALS: BP 107/64
[2019-01-25] MEDS: oxyCODONE 5MG TAB PO PRN (14:31)
[2019-01-25] MEDS ORDERED: ANALGESIC BALM CRM 120 GM TOP PRN (16:45)
[2019-01-25 18:09] VITALS: BP_SYST 106; BP_SYST 113; BP_SYST 114; BP_DIAS 66; BP_DIAS 67; BP_DIAS 73
[2019-01-25] MEDS: DULoxetine 30 MG CAP (CYMBALTA) PO SCH (21:19)
[2019-01-25] MEDS: CETIRIZINE (ZyrTEC) 10 MG TAB PO SCH (21:19)
[2019-01-25] MEDS: FERROUS SULFATE 325MG TAB PO SCH (21:21)
[2019-01-25] MEDS: ARIPiprazole 2 MG TAB PO SCH (21:21)
[2019-01-25] MEDS: AMITRIPTYLINE 25 MG TAB PO SCH (21:21)
[2019-01-25 22:00] VITALS: BP 107/65
[2019-01-26] MEDS: HEPARIN SOD (PORCINE) 5000 UNITS/ML VIAL SC SCH (05:54)
[2019-01-26 06:00] VITALS: BP 108/68
[2019-01-26 06:15] LABS: HEMOGLOBIN 12.2 g/dl (12.0-15.5); MEAN CORPUSCULAR HEMOGLOBIN 31.5 pg (27.0-33.0); MEAN CORPUSCULAR VOLUME 95.6 fl (80.0-96.0); PLATELET COUNT, AUTOMATED 282 10^3/uL (150-450); RED BLOOD COUNT 3.87 10^6/uL (4.00-5.40)
[2019-01-26 06:17] LABS: WHITE BLOOD COUNT 12.4 10^3/uL (4.0-10.0)
[2019-01-26 06:37] LABS: ATYPICAL LYMPH 4 % (0-5); EOSINOPHILS 8 % (0-3); LYMPHOCYTES 47 % (16-44); MONOCYTES 1 % (0-5); NEUTROPHILS 40 % (28-66); PLATELET ESTIMATE NORMAL (NORMAL)
[2019-01-26 06:45] LABS: BLOOD UREA NITROGEN 7 MG/DL (7-18); CALCIUM LEVEL 8.5 MG/DL (8.5-10.1); CARBON DIOXIDE LEVEL 26 MEQ/L (21-32); CHLORIDE LEVEL 110 MEQ/L (98-107); CREATININE FOR GFR 0.67 MG/DL (0.55-1.30); GLOMERULAR FILTRATION RATE > 60.0 (>58); GLUCOSE, FASTING 93 MG/DL (70-100); MAGNESIUM LEVEL 1.8 MG/DL (1.8-2.4); POTASSIUM SERUM 3.7 MEQ/L (3.5-5.1); SODIUM LEVEL 142 MEQ/L (136-145)
[2019-01-26] MEDS: HumaLOG INSULIN (NovoLOG) PER UNIT SC SCH (07:30)
[2019-01-26] MEDS: ALBUTEROL SULFATE 2.5 MG/0.5 ML INH NEB SOLN INH SCH ×2 (07:33→11:06)
[2019-01-26] MEDS: OMEPRAZOLE 20 MG CAP PO SCH (08:28)
[2019-01-26] MEDS: DOCUSATE SODIUM 100 MG CAP PO SCH (08:28)
[2019-01-26] MEDS: PRAMIPEXOLE 0.25 MG TAB PO SCH (08:28)
[2019-01-26] MEDS: miSOPROStol 200 MCG TAB (S0191) PO SCH (08:28)
[2019-01-26] MEDS: PREGABALIN 100 MG CAP (LYRICA) PO SCH (08:28)
[2019-01-26] MEDS: NYSTATIN 100,000 UNITS/GM TOPICAL PWD 15 GM TOP SCH (08:29)
[2019-01-26] MEDS: oxyBUTYnin *DITROPAN XL* 5 MG TABCR PO SCH (08:29)
[2019-01-26] MEDS: SUCRALFATE 1 GM TAB PO SCH (08:29)
[2019-01-26] MEDS: GABAPENTIN 400 MG CAP PO SCH (08:29)
[2019-01-26] MEDS: MONTELUKAST 10 MG TAB PO SCH (08:29)
[2019-01-26] MEDS: buPROPion (WELLBUTRIN SR) 100 MG SR TAB PO SCH (08:29)
[2019-01-26] MEDS: FAMOTIDINE 20 MG TAB PO SCH (08:30)
[2019-01-26 08:38] VITALS: BP 107/69
[2019-01-26] MEDS: LOSARTAN 25 MG TAB PO SCH (08:38)
[2019-01-26] MEDS: MORPHINE 15 MG SA TAB PO SCH (08:38)
--- NOTE | 2019-01-26 09:42 | IPNPDOC ---
Text Note Date of Service The patient was seen on 01/26/19. NOTE Patient was seen at bedside today and reported that she woke up a couple of times overnight to urinate and felt dysuria. She reports no dysuria as of this morning . She denies change in urine color. She states she is eating well and that she passed a bowel movement last night without incident. She states her intertriginous candidiasis is located under both of her breasts as well as her left abdominal fold gotten smaller since application of nystatin powder and are not pruritic. He reports no claudication, paresthesia, or loss of sensation on any extremity. She denies lightheadedness, fatigue, nausea or vomiting, shortness of breath, chest pain or palpitations. HEENT: Pupils respond to light and are equal. No scleral icterus noted. Trachea midline. Lungs: Lungs clear to auscultation bilaterally. Vesicular breath sounds heard throughout. Heart: Regular rhythm and normal rate noted. No murmurs, rubs, or knocks noted. No muffled heart sounds. Abdomen: Obese abdomen noted. Normal abdominal sounds noted in all 4 quadrants. No organomegaly, bruits, or distension noted. No guarding or rebound tenderness. No Jaundice noted. No pain or tenderness to palpation noted Extremities: No edema noted. No rashes, wounds, weeping sores noted. No significant muscle atrophy noted. Neuro: No focal deficits noted noted. Muscle strength 5/5 in LE and UE flexion and extension.. Skin: Patient has intertriginous candidiasis underneath breasts bilaterally as well as underneath abdominal fold in her left upper quadrant. Topical nystatin powder noted on skin. No bruising, ulcerations noted Assessment and plan #Orthostasis likely 2/2 overdiuresis: Patient's orthostasis has largely resolved as result of holding diuretics as well as gentle rehydration with normal saline. Blood pressures remain in the low 100s , so continue diuretic holding seems appropriate. Patient denies lightheadedness or pre-syncope/syncope. Patient does have very slight crackles in left lower lobe, however, may be due to atelectasis or some other pathology. Patient reports no shortness of breath or cough. #Bilateral lymphedema: PT/OT has begun wrapping patient's legs and feet. Pending PT clearance prior to discharge. Patient states no paresthesia, loss of sensation or pain in either leg. #Leukocytosis: As of 01/26 patient's leukocytosis is persistent and slightly elevated at 12.4. This coupled with her dysuria overnight since suggest possible UTI. UA was negative on admission. Patient remains afebrile, and did not have suprapubic tenderness on exam. Patient states she is no longer having dysuria now. Will monitor for possible UTI. #Intertriginous candidiasis: Patient receiving nystatin powder. She states no pruritus or pain. #Recent history of fall: Likely secondary to episodic hypotension related to recent diuresis treatment. Patient is no longer orthostatic and there still being held. Patient on fall precautions. Bilateral, left knee and left hip plain films negative for fracture. #Diabetes: Patient on consistent carb diet. Patient's home metformin is being held. Patient on sliding scale insulin. Fasting sugar monitoring. Patient's blood sugar was 200 this morning. Will adjust insulin appropriately. #Peripheral neuropathy: Patient currently receiving gabapentin 900 3 times a day, Lyrica 200 3 times a day, duloxetine 90 daily at bedtime, amitriptyline 25 daily at bedtime. Patient does not complain of neuropathy currently. #Chronic pain: Continue MS 15 BID, Oxy 5Q4H PRN, Flexeril 10Q8H PRN #Morbid obesity: BMI 55.6. Further outpatient provider for weight management. CT discopathy. Medical care. #Nicotine dependence: Plan to provide smoking cessation guidance 18 patch 14 mg daily when necessary #RYAN: CPAP protocol. #HTN: COPD/asthma: Patient on Singulair, albuterol when necessary, Flonase when necessary #GERD: Continue omeprazole, famotidine, sucralfate. #Overactive bladder: Continue oxybutynin. #DVT prophylaxis: Subcutaneous heparin 5000 units every 8H Disposition: Discharge pending PT clearance. VS,Fishbone, I+O VS, Fishbone, I+O Laboratory Tests 01/26/19 06:04 Red Blood Count 3.87 L, Mean Corpuscular Volume 95.6, Mean Corpuscular Hemoglobin 31.5, Mean Corpuscular Hemoglobin Concent 33.0, Red Cell Distribution Width 13.5, Lymphocytes # (Auto) , Calcium Level 8.5 Vital Signs Date Time Temp Pulse Resp B/P (MAP) Pulse Ox O2 Delivery O2 Flow Rate FiO2 01/26/19 08:38 16 01/26/19 08:38 107/69 01/26/19 06:00 96.9 85 94 01/25/19 08:03 Room Air I&O- Last 24 Hours up to 6 AM 01/26/19 06:00 Intake Total 3090 ml Output Total 1050 ml Balance 2040 ml ROBERT MCDONALD OMS-3 Jan 26, 2019 09:42
[2019-01-26] MEDS ORDERED: LASI40TA9 PO (10:57)
--- NOTE | 2019-01-26 14:23 | DS.PDOC ---
Discharge Summary General Date of Admission Jan 24, 2019 at 09:59 Date of Discharge 01/25/19 Attending Physician: RENAE WHITE MD Discharge Summary PROCEDURES PERFORMED DURING STAY: [None]. ADMITTING DIAGNOSES: 1. Orthostatic hypotension likely secondary to overdiuresis 2. Bilateral lymphedema 3. Intertriginous candidiasis 4. History of recent fall 5.. Diabetes mellitus type 2, complicated by peripheral neuropathy 6. Morbid obesity with a BMI of 55.6 7. Nicotine dependence 8. Obstructive sleep apnea 9. Hypertension 10. Asthma\COPD 11. Gastroesophageal reflux disease 12. Overreactive bladder DISCHARGE DIAGNOSES: 1. Orthostatic hypotension secondary to overdiuresis 2. Bilateral lymphedema 3. Intertriginous candidiasis 4. History of recent fall 5.. Diabetes mellitus type 2, complicated by peripheral neuropathy 6. Morbid obesity with a BMI of 55.6 7. Nicotine dependence 8. Obstructive sleep apnea 9. Hypertension 10. Asthma\COPD 11. Gastroesophageal reflux disease 12. Overreactive bladder COMPLICATIONS/CHIEF COMPLAINT: Dizziness,Orthostatic Hypotension. HISTORY OF PRESENT ILLNESS: Patient is a 43-year-old female who presented to [facility] emergency department complaining of increased dizziness, weakness and fall. Patient was recently admitted to the hospital for worsening of her lymphedema and was started on Lasix and spironolactone. During her previous admission. She was diuresed aggressively. When she returned home. The patient continued on her diuretics as well as drinking coffee and energy drinks. Patient stated that she developed weakness and dizziness when standing. Patient stated that she fell down to her knees , however, deny hitting her head or losing consciousness. Patient stated that she personally felt weak and presented to the emergency department. Presentation, resolved. 4. The patient was vitally stable. However, she was orthostatic positive. Patient was admitted to and to further evaluation and management HOSPITAL COURSE: During the patient's hospitalization, she received gentle IV fluid hydration. Her diuretics were held regarding the patient's lymphedema. She received physical therapy as well as wrapping of her legs. Patient demonstrated improvement and was no longer orthostatic positive. She stated that her dizzi ness and weakness had resolved. She was continued with physical therapy and was found safe for discharge home with outpatient physical therapy for management of her lymphedema DISCHARGE MEDICATIONS: Please see below. ALLERGIES: Please see below. PHYSICAL EXAMINATION ON DISCHARGE: VITAL SIGNS: Please see below. GENERAL: Awake Alert, oriented, appears in no acute distress. Sitting comfortably in chair HEENT: Atraumatic, normocephalic. Eyes nonicteric. Trachea is midline. Mucous membranes are pink and moist.. No conjunctival pallor. Dentition is poor NECK:. No palpable cervical, axillary or supraclavicular lymphadenopathy CARDIOVASCULAR EXAMINATION: Normal 1, S2, regular rate and rhythm. No clicks, rubs or murmurs RESPIRATORY EXAMINATION: Clear vesicular breath sounds bilaterally. Good re spiratory effort. No wheezes, rhonchi or rales ABDOMINAL EXAMINATION:., Morbidly obese, Soft, nondistended, nontender to palpation in all 4 quadrants. No rebound tenderness or guarding EXTREMITIES:. Significant nonpitting bilateral lymphedema in lower extremities. No calf tenderness SKIN:. No rashes or areas of erythema NEUROLOGICAL EXAMINATION:. No focal neurological deficits PSYCHIATRIC EXAMINATION:. Mood and affect appear appropriate LABORATORY DATA: Please see below. IMAGING: Left knee AP and lateral views: Comparison is 06/23/2017. There is tricompartment osteoarthritis, unchanged. There is no fracture or dislocation. There is no effusion. There are no calcifications or foreign bodies. Impression: Tricompartment osteoarthritis. No fracture or effusion. Right knee AP and lateral views: Comparison is 06/23/2017. There is tricompartment osteoarthritis. This is unchanged. There is no fracture or dislocation. There is no effusion. There are no calcifications or foreign bodies. Impression: Tricompartment osteoarthritis. No fracture or effusion. Electronically Signed by Scott Muller MD 01/25/2019 12:58 P Left hip: Two views. History: Left hip pain after a fall. Comparison study: March 07, 2018. Findings: AP and frog-leg views of the left hip demonstrate normal bones, joints, and soft tissues. Impression: Negative left hip radiographs. Electronically Signed by Biju Bui MD 01/25/2019 12:54 P PROGNOSIS: Fair ACTIVITY: [As tolerated]. DIET: Consistent carbohydrate, low-sodium diet DISCHARGE PLAN:. Patient is being discharged home. She is to continue her Aldactone at 25 mg she is to decrease her Lasix dose to 40 mg once daily. She is continue with outpatient physical therapy for wrapping of her legs for management of her chronic lymphedema. She is to follow up with her primary care physician in 7-10 days for management of her chronic medical conditions. She is to return to the emergency department if her symptoms return or worsen. DISPOSITION: 01 Home, Self-Care. DISCHARGE CONDITION: [Stable]. TIME SPENT ON DISCHARGE: - 40 minutes. Vital Signs/I&Os Vital Signs Date Time Temp Pulse Resp B/P (MAP) Pulse Ox O2 Delivery O2 Flow Rate FiO2 01/26/19 09:00 96 18 99 Room Air 01/26/19 08:38 107/69 01/26/19 06:00 96.9 I&O- Last 24 Hours up to 6 AM 01/26/19 06:00 Intake Total 3090 ml Output Total 1050 ml Balance 2040 ml Laboratory Data Labs 24H Laboratory Tests 2 01/25/19 20:46: Bedside Glucose (Misc Panel) 212H 01/26/19 06:04: White Blood Count 12.4H, Red Blood Count 3.87L, Hemoglobin 12.2, Hematocrit 37.0, Mean Corpuscular Volume 95.6, Mean Corpuscular Hemoglobin 31.5, Mean Corpuscular Hemoglobin Concent 33.0, Red Cell Distribution Width 13.5, Platelet Count 282, Lymphocytes # (Auto) , Nucleated Red Blood Cells % (auto) 0.0, Neutrophils 40, Lymphocytes (Manual) 47H, Monocytes (Manual) 1, Eosinophils (Manual) 8H, Atypical Lymphocytes 4, Platelet Estimate NORMAL, Red Blood Cell Morphology NORMAL, Anion Gap 6L, Glomerular Filtration Rate > 60.0, Blood Urea Nitrogen 7, Creatinine 0.67, Sodium Level 142, Potassium Level 3.7, Chloride Level 110H, Carbon Dioxide Level 26, Calcium Level 8.5, Magnesium Level 1.8 CBC/BMP Laboratory Tests 01/26/19 06:04 Red Blood Count 3.87 L, Mean Corpuscular Volume 95.6, Mean Corpuscular Hemoglobin 31.5, Mean Corpuscular Hemoglobin Concent 33.0, Red Cell Distribution Width 13.5, Lymphocytes # (Auto) , Calcium Level 8.5 FSBS Laboratory Tests Test 01/25/19 20:46 Range/Units Bedside Glucose (Misc Panel) 212 70-105 MG/DL Discharge Medications Scheduled Amitriptyline HCl (Amitriptyline HCl) 25 Mg Tab, 25 MG PO QHS, (Reported) Aripiprazole (Aripiprazole) 2 Mg Tablet, 2 MG PO QHS, (Reported) Bupropion Hcl (Bupropion HCl Sr) 100 Mg Tab, 100 MG PO BID, (Reported) Cetirizine HCl (Cetirizine HCl) 10 Mg Tab, 10 MG PO QHS, (Reported) Cholecalciferol (Vitamin D3) (Vitamin D3) 5,000 Unit Capsule, 5,000 UNITS PO DAILY, (Reported) Docusate Sodium (Docusate Sodium) 100 Mg Cap, 100 MG PO TID, (Reported) Duloxetine HCl (Duloxetine HCl) 60 Mg Capsule.dr, 60 MG PO QHS, (Reported) 90MG TOTAL Duloxetine Hcl (Duloxetine HCl) 30 Mg Cap, 30 MG PO QHS, (Reported) 90MG TOTAL Famotidine (Famotidine) 20 Mg Tablet, 20 MG PO BID, (Reported) Ferrous Sulfate (Iron) 325 Mg Tablet, 325 MG PO QPM, (Reported) Furosemide (Lasix) 40 Mg Tablet, 40 MG PO DAILY Gabapentin (Gabapentin) 800 Mg Tablet, 800 MG PO TID, (Reported) Losartan Potassium (Losartan Potassium) 25 Mg Tab, 25 MG PO DAILY, (Reported) Metformin HCl (Metformin HCl) 1,000 Mg Tablet, 1,000 MG PO BID, (Reported) Misoprostol (Misoprostol) 200 Mcg Tablet, 400 MCG PO BID, (Reported) Montelukast Sodium (Montelukast Sodium) 10 Mg Tab, 10 MG PO DAILY, (Reported) Morphine Sulfate (Morphine Sulfate ER) 15 Mg Tablet.er, 15 MG PO Q12H, (Reported) Omeprazole (Omeprazole) 20 Mg Capsule.dr, 20 MG PO BID, (Reported) Oxybutynin Chloride (Ditropan Xl) 10 Mg Tab, 10 MG PO DAILY, (Reported) Pramipexole Di-HCl (Mirapex) 0.25 Mg Tablet, 0.25 MG PO BID, (Reported) Pregabalin (Lyrica) 200 Mg Cap, 200 MG PO TID, (Reported) Spironolactone (Spironolactone) 25 Mg Tablet, 25 MG PO BID, (Reported) Sucralfate (Carafate) 1 Gm Tablet, 1 GM PO ACHS, (Reported) Scheduled PRN Albuterol Sulfate (Ventolin Hfa) 18 Gm Hfa.aer.ad, 2 PUFF INH Q4H PRN for SOB/WHEEZING, (Reported) Cyclobenzaprine HCl (Cyclobenzaprine HCl) 10 Mg Tab, 10 MG PO Q8H PRN for MUSCLE SPASMS, (Reported) Fluticasone Propionate (Fluticasone Propionate) 16 Gm Willard.susp, 2 SPRAY NARES DAILY PRN for CONGESTION, (Reported) Oxycodone HCl (Oxycodone HCl) 5 Mg Tab, 5 MG PO Q8H PRN for PAIN, (Reported) Polyvinyl Alcohol (Artificial Tears) 1.4 % Lenore, 1 DROP OU QID PRN for DRY EYES, (Reported) Allergies Coded Allergies: Sulfa (Sulfonamide Antibiotics) (Verified Allergy, Intermediate, rash, 01/24/19) NSAIDS (Non-Steroidal Anti-Inflamma (Verified Adverse Reaction, Intermediate, Due to gastric bypass, 01/24/19) GME ATTESTATION GME ATTESTATION My faculty preceptor for this patient encounter was physically present during the encounter and was fully available. All aspects of the patient interview, examination, medical decision making process, and medical care plan development were reviewed and approved by the faculty preceptor. The faculty preceptor is aware and concurs with the plan as stated in the body of this note and will attest to such by his/her cosignature. ATTENDING NOTE I, Renae White, have independently examined this patient and performed my own physical exam, as well as reviewed the documentation and edited where necessary. I have discussed in detail with the resident / student the findings and plan of treatment as documented by the resident / student and edited their note. I agree with their findings and treatment plan and have edited their documentation. I will continue to follow the patient during this hospital stay. Time spent on discharge: - 35 minutes RICARDO GABRIEL DO Jan 26, 2019 14:23 RENAE WHITE MD Jan 26, 2019 15:30
== END 2019-01-26 11:51 | disposition home or self-care (01) ==
LOC: M ED 09:58 → M ED INP 09:59 → M MSPAV 16:30
PROVIDERS: ADMIT Internal Medicine; ATTEND Internal Medicine
DX: I95.1 Orthostatic hypotension (principal); R35.8 Other polyuria; I89.0 Lymphedema, not elsewhere classified; B37.2 Candidiasis of skin and nail; Z91.81 History of falling; E11.40 Type 2 diabetes mellitus with diabetic neuropathy, unspecified; E66.01 Morbid (severe) obesity due to excess calories; F17.210 Nicotine dependence, cigarettes, uncomplicated; F32.9 Major depressive disorder, single episode, unspecified; I10 Essential (primary) hypertension; G47.33 Obstructive sleep apnea (adult) (pediatric); J44.9 Chronic obstructive pulmonary disease, unspecified; K21.9 Gastro-esophageal reflux disease without esophagitis; N32.81 Overactive bladder; Z79.899 Other long term (current) drug therapy; Z79.84 Long term (current) use of oral hypoglycemic drugs; Z88.2 Allergy status to sulfonamides; Z88.8 Allergy status to other drugs, medicaments and biological substances
CPT/HCPCS: 36415; 73502; 73560; 80047; 80048; 80053; 81001; 82550; 82553; 83605; 83735; 85025; 85027; 93005; 94640; 96360; 96361; 96372; 97116; 97140; 97161; 99285; J3475

== ENCOUNTER 2019-01-29 10:13 | Observation (INO) | payer OTHER ==
[~2019-01-29] VITALS: Ht 154.9 cm; Wt 135.6 kg
[~2019-01-29 10:13] MED LIST changes: +LASI40TA9 PO; +SPIR-10 PO
[2019-01-29 11:25] LABS: BASO % 0.4 % (0.0-1.0); EOS # 0.1 10^3/uL (0.0-0.5); EOS % 1.2 % (0.0-3.0); HEMATOCRIT 39.1 % (36.0-47.0); LYMPH # 2.9 10^3/uL (1.5-5.0); MEAN CORPUSCULAR HEMOGLOBIN 31.6 pg (27.0-33.0); MEAN CORPUSCULAR HGB CONC 33.2 g/dl (32.0-36.5); MEAN CORPUSCULAR VOLUME 94.9 fl (80.0-96.0); MONO # 0.7 10^3/uL (0.0-0.8); MONO % 6.1 % (0.0-5.0); NEUTROPHILS # 7.4 10^3/uL (1.5-8.5); NEUTROPHILS % 65.3 % (36.0-66.0); PLATELET COUNT, AUTOMATED 330 10^3/uL (150-450); RED BLOOD COUNT 4.12 10^6/uL (4.00-5.40); WHITE BLOOD COUNT 11.3 10^3/uL (4.0-10.0)
[2019-01-29 11:30] LABS: BLOOD UREA NITROGEN 7 MG/DL (7-18); CARBON DIOXIDE LEVEL 25 MEQ/L (21-32); CHLORIDE LEVEL 114 MEQ/L (98-107); GLOMERULAR FILTRATION RATE > 60.0 (>58); GLUCOSE, FASTING 177 MG/DL (70-100); POTASSIUM SERUM 3.7 MEQ/L (3.5-5.1); SODIUM LEVEL 144 MEQ/L (136-145)
[2019-01-29] MEDS ORDERED: LASI40TA9 PO (13:25)
[2019-01-29] MEDS ORDERED: IPRATROPIUM 0.5MG/ALBUTEROL 2.5MG INH SOL UD 3ML (DUONEB)(J7620) NEB PRN (13:30)
[2019-01-29] MEDS ORDERED: DEXTROSE 50% 50 ML SYRINGE IV PRN (13:30)
[2019-01-29] MEDS ORDERED: GLUCOSE 4 GM CHEW TABLET PO PRN (13:30)
[2019-01-29] MEDS ORDERED: GLUCAGON FOR INJ 1 MG VIAL (J1610) SC PRN (13:30)
[2019-01-29 13:43] LABS: FREE T4 1.06 NG/DL (0.76-1.46)
[2019-01-29] MEDS: IPRATROPIUM 0.5MG/ALBUTEROL 2.5MG INH SOL UD 3ML (DUONEB)(J7620) NEB SCH ×2 (14:00→19:32)
[2019-01-29] MEDS ORDERED: FLUTICASONE PROP 0.05% NASAL SPRAY 16 GM (FLONASE) NARES PRN (14:15)
[2019-01-29] MEDS ORDERED: POLYVINYL ALCOHOL OPHTH SOLN 15 ML(LIQUITEARS) OU PRN (14:15)
--- NOTE | 2019-01-29 14:17 | HPEPDOC ---
General Date of Admission Jan 29, 2019 at 10:14 Date of Service: Jan 29, 2019 Chief Complaint The patient is a 43-year-old female Who presented to the emergency room with feelings of chills and hot flashes History of Present Illness Patient is a 43-year-old female with a PMHx of HTN, DM2, DLP, RYAN, COPD / Asthma, Depression, Active smoker, Chronic lymphedema, Morbid obesity, who presented to the emergency room with complaints of chills and hot flashes. Patient was recently hospitalist was on January 15 and was discharged on January 23. Throughout that hospitalization, patient was suspected of having fluid overload and was aggressively diuresis. Patient cleared physical therapy and was subsequently discharged home. . She was seen by physical therapy and was advised to keep on her compression stockings. Patient had presented again to the emergency room on January 24 and was discharged on January 26. Patient was noncompliant with her compression stockings. Patient again is presented to the emergency room today and has reported that she has not been taking her medications as prescribed. Patient has reported feeling chills and flashes. . She does not report any dizziness, chest pain, shortness of breath, cough, abdominal pain, diarrhea, or urinary discomfort. Patients significant other is present at the bedside. . He has attested that he has been taking care of her, however, currently has not been able to facilitate her needs. Patient reports her appetite is poor but denies any significant change in her weight. Home Medications Scheduled Amitriptyline HCl (Amitriptyline HCl) 25 Mg Tab, 25 MG PO QHS, (Reported) Aripiprazole (Aripiprazole) 2 Mg Tablet, 2 MG PO QHS, (Reported) Bupropion Hcl (Bupropion HCl Sr) 100 Mg Tab, 100 MG PO BID, (Reported) Cetirizine HCl (Cetirizine HCl) 10 Mg Tab, 10 MG PO QHS, (Reported) Cholecalciferol (Vitamin D3) (Vitamin D3) 5,000 Unit Capsule, 5,000 UNITS PO DAILY, (Reported) Docusate Sodium (Docusate Sodium) 100 Mg Cap, 100 MG PO TID, (Reported) Duloxetine HCl (Duloxetine HCl) 60 Mg Capsule.dr, 60 MG PO QHS, (Reported) 90MG TOTAL Duloxetine Hcl (Duloxetine HCl) 30 Mg Cap, 30 MG PO QHS, (Reported) 90MG TOTAL Famotidine (Famotidine) 20 Mg Tablet, 20 MG PO BID, (Reported) Ferrous Sulfate (Iron) 325 Mg Tablet, 325 MG PO QPM, (Reported) Furosemide (Lasix) 40 Mg Tablet, 40 MG PO DAILY, (Reported) Gabapentin (Gabapentin) 800 Mg Tablet, 800 MG PO TID, (Reported) Losartan Potassium (Losartan Potassium) 25 Mg Tab, 25 MG PO DAILY, (Reported) Metformin HCl (Metformin HCl) 1,000 Mg Tablet, 1,000 MG PO BID, (Reported) Misoprostol (Misoprostol) 200 Mcg Tablet, 400 MCG PO BID, (Reported) Montelukast Sodium (Montelukast Sodium) 10 Mg Tab, 10 MG PO DAILY, (Reported) Omeprazole (Omeprazole) 20 Mg Capsule.dr, 20 MG PO BID, (Reported) Oxybutynin Chloride (Ditropan Xl) 10 Mg Tab, 10 MG PO DAILY, (Reported) Pramipexole Di-HCl (Mirapex) 0.25 Mg Tablet, 0.25 MG PO BID, (Reported) Pregabalin (Lyrica) 200 Mg Cap, 200 MG PO TID, (Reported) Scheduled PRN Albuterol Sulfate (Ventolin Hfa) 18 Gm Hfa.aer.ad, 2 PUFF INH Q4H PRN for SOB/WHEEZING, (Reported) Cyclobenzaprine HCl (Cyclobenzaprine HCl) 10 Mg Tab, 10 MG PO Q8H PRN for MUSCLE SPASMS, (Reported) Fluticasone Propionate (Fluticasone Propionate) 16 Gm [place].susp, 2 SPRAY NARES DAILY PRN for CONGESTION, (Reported) Oxycodone HCl (Oxycodone HCl) 5 Mg Tab, 5 MG PO Q8H PRN for PAIN, (Reported) Polyvinyl Alcohol (Artificial Tears) 1.4 % Lenore, 1 DROP OU QID PRN for DRY EYES, (Reported) Allergies Coded Allergies: Sulfa (Sulfonamide Antibiotics) (Verified Allergy, Intermediate, rash, 01/24/19) NSAIDS (Non-Steroidal Anti-Inflamma (Verified Adverse Reaction, Intermediate, Due to gastric bypass, 01/24/19) Past Medical History Medical History HTN, DM2, DLP, RYAN, COPD / Asthma, Depression, Active smoker, Chronic lymphedema, Morbid obesity Surgical History Adenoidectomy and tonsillectomy Cholecystectomy section Family History - Mother and father without any significant medical problems reported Social History - Denies the use of alcohol, tobacco or illicit drugs - Denies recent travel or sick contacts - Lives alone - Occupation; unemployed / disability Review of Systems Other systems 10 point review of systems complete, all negative otherwise stated in HPI Vital Signs - Vitals: BP 122/56, HR 72, RR 22, Sat 94%RA, Temp 97.4F - General: Lying in bed, No acute distress, Speaking in full sentences, AAOx3 - HEENT: NC, AT, PERRLA - CVS: +S1S2 - Lungs: Fair air entry bilaterally, No appreciable wheezing / rales / rhonchi - Abdomen: Soft, Non-distended, Non-tender - Extremities: + Lower extremity edema - however is non-pitting; compression dressing in palce, No calf tenderness - Neuro: No focal motor or sensory deficit - Skin: No visible rashes Laboratory Data Labs 24H Laboratory Tests 2 01/29/19 10:41: Immature Granulocyte % (Auto) 1.0, White Blood Count 11.3H, Red Blood Count 4.12, Hemoglobin 13.0, Hematocrit 39.1, Mean Corpuscular Volume 94.9, Mean Corpuscular Hemoglobin 31.6, Mean Corpuscular Hemoglobin Concent 33.2, Red Cell Distribution Width 14.2, Platelet Count 330, Neutrophils (%) (Auto) 65.3, Lymphocytes (%) (Auto) 26.0, Monocytes (%) (Auto) 6.1H, Eosinophils (%) (Auto) 1.2, Basophils (%) (Auto) 0.4, Neutrophils # (Auto) 7.4, Lymphocytes # (Auto) 2.9, Monocytes # (Auto) 0.7, Eosinophils # (Auto) 0.1, Basophils # (Auto) 0.0, N ucleated Red Blood Cells % (auto) 0.0, Anion Gap 5L, Glomerular Filtration Rate > 60.0, Blood Urea Nitrogen 7, Creatinine 0.90, Sodium Level 144, Potassium Level 3.7, Chloride Level 114H, Carbon Dioxide Level 25, Calcium Level 9.0, Thyroid Stimulating Hormone (TSH) 3.410, Free Thyroxine 1.06 CBC/BMP Laboratory Tests 01/29/19 10:41 Red Blood Count 4.12, Mean Corpuscular Volume 94.9, Mean Corpuscular Hemoglobin 31.6, Mean Corpuscular Hemoglobin Concent 33.2, Red Cell Distribution Width 14.2, Neutrophils (%) (Auto) 65.3, Lymphocytes (%) (Auto) 26.0, Monocytes (%) (Auto) 6.1 H, Eosinophils (%) (Auto) 1.2, Basophils (%) (Auto) 0.4, Neutrophils # (Auto) 7.4, Lymphocytes # (Auto) 2.9, Monocytes # (Auto) 0.7, Eosinophils # (Auto) 0.1, Basophils # (Auto) 0.0, Calcium Level 9.0 Microbiology Microbiology 01/29/19 Blood Culture, Received Pending 01/29/19 Respiratory Virus Panel (PCR) ([facility]) - Final, Complete Plan / VTE VTE Prophylaxis Ordered?: Yes Plan Plan Chills and hot flashes - unlikely 2/2 infection, possibly 2/2 thyroid disease, possibly 2/2 menopause - Patient reports that shes been experiencing chills and hot flashes for last several days - Patient remains relatively stable and afebrile - Mild leukocytosis is noted, however, has been unchanged from prior CBCs - Respiratory panel 01/29: Negative - Blood cultures and urine cultures pending; Urinalysis pending - Will get CXR to evaluate - Will check Thyroid function - Will hold off on antibiotic therapy at this time Non-compliance / Poor ambulation / Difficulty with accessing follow up - c/w PT / OT / PT audio specialist for lymphedema - Will get PFS on board for likely placement - Patient has been non-compliant with therapy and does not have the appropriate social support outside the facility to meet follow up requirements - 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 HTN - Will check orthostatic vital signs - c/w Furosemide DM2 - Will start ISS DLP - Currently not on medications RYAN - May allow home CPAP use while inpatient COPD / Asthma - No evidence of exacerbation - c/w Inhaled therapy as ordered Normocytic anemia - possibly 2/2 COLETTE - c/w Ferrous sulfate Depression - c/w Amitriptyline, Aripiprazole, Duloxetine, Bupropion, RLS - c/w Pramipexole Chronic pain - c/w Gabapentin, Cyclobenzaprine and Oxycodone - Will discontinue Pregabalin Active smoker - Advised smoking cessation - c/w Nicotine patch Chronic lymphedema - quality measurement specialist from PT for lymphedema Morbid obesity - Complicating medical care GERD - c/w Famotidine and Omeprazole DVT prophylaxis - Will start Heparin RICK BROCK MD Jan 29, 2019 14:17
[2019-01-29 14:30] VITALS: BP 129/63
--- NOTE | 2019-01-29 15:10 | REP ---
reason for exam: Leukocytosis. PRIOR: 01/15/2019. FINDINGS: The technique utilized in obtaining the radiograph has magnified the cardiac silhouette and accentuated the interstitial markings. The superior mediastinal structures are midline. The cardiac silhouette is unremarkable in size, shape, and position. The diaphragmatic surfaces of the lungs are regular, and the costophrenic angles are clear. The pulmonary barry are clear. The imaged osseous structures are intact. IMPRESSION: There is no acute cardiopulmonary disease. No change. Electronically Signed by Philippe Chong DO 01/29/2019 04:52 P
[2019-01-29] MEDS: DOCUSATE SODIUM 100 MG CAP PO SCH ×2 (15:45→21:00)
[2019-01-29] MEDS: NICOTINE 21MG/24HR 1 EA TRANSDERMAL TD SCH (15:46)
[2019-01-29] MEDS: HEPARIN SOD (PORCINE) 5000 UNITS/ML VIAL SC SCH ×2 (15:46→21:26)
[2019-01-29] MEDS: GABAPENTIN 400 MG CAP PO SCH ×2 (15:47→21:25)
[2019-01-29] MEDS: HumaLOG INSULIN (NovoLOG) PER UNIT SC SCH ×2 (18:40→21:00)
[2019-01-29 20:00] VITALS: BP_SYST 117; BP_SYST 121; BP_SYST 126; BP_DIAS 70; BP_DIAS 73
[2019-01-29] MEDS: ARIPiprazole 2 MG TAB PO SCH (21:25)
[2019-01-29] MEDS: PRAMIPEXOLE 0.25 MG TAB PO SCH (21:25)
[2019-01-29] MEDS: OMEPRAZOLE 20 MG CAP PO SCH (21:25)
[2019-01-29] MEDS: FERROUS SULFATE 325MG TAB PO SCH (21:25)
[2019-01-29] MEDS: buPROPion (WELLBUTRIN SR) 100 MG SR TAB PO SCH (21:25)
[2019-01-29] MEDS: oxyCODONE 5MG TAB PO PRN (21:25)
[2019-01-29] MEDS: DULoxetine 30 MG CAP (CYMBALTA) PO SCH (21:26)
[2019-01-29] MEDS: FAMOTIDINE 20 MG TAB PO SCH (21:26)
[2019-01-29] MEDS: AMITRIPTYLINE 25 MG TAB PO SCH (21:26)
[2019-01-29] MEDS: NYSTATIN 100,000 UNITS/GM TOPICAL PWD 15 GM TOP PRN (21:27)
[2019-01-29 22:00] VITALS: BP 120/72
[2019-01-30] MEDS: IPRATROPIUM 0.5MG/ALBUTEROL 2.5MG INH SOL UD 3ML (DUONEB)(J7620) NEB SCH ×5 (02:00→19:56)
[2019-01-30] MEDS: CYCLOBENZAPRINE 10 MG TAB PO PRN ×2 (02:52→23:18)
[2019-01-30] MEDS: ACETAMINOPHEN TAB 650MG DOSE (2X325MG) PO PRN ×2 (02:52→11:01)
[2019-01-30 06:00] VITALS: BP 106/58
[2019-01-30 06:25] LABS: BLOOD UREA NITROGEN 8 MG/DL (7-18); CALCIUM LEVEL 8.7 MG/DL (8.5-10.1); CARBON DIOXIDE LEVEL 23 MEQ/L (21-32); CHLORIDE LEVEL 115 MEQ/L (98-107); CREATININE FOR GFR 0.76 MG/DL (0.55-1.30); GLOMERULAR FILTRATION RATE > 60.0 (>58); GLUCOSE, FASTING 97 MG/DL (70-100); MAGNESIUM LEVEL 1.9 MG/DL (1.8-2.4); POTASSIUM SERUM 3.3 MEQ/L (3.5-5.1); SODIUM LEVEL 144 MEQ/L (136-145)
[2019-01-30] MEDS: HEPARIN SOD (PORCINE) 5000 UNITS/ML VIAL SC SCH ×3 (06:38→21:05)
[2019-01-30] MEDS: HumaLOG INSULIN (NovoLOG) PER UNIT SC SCH ×4 (07:30→20:05)
[2019-01-30 07:36] LABS: HEMATOCRIT 34.7 % (36.0-47.0); HEMOGLOBIN 11.4 g/dl (12.0-15.5); MEAN CORPUSCULAR HEMOGLOBIN 31.6 pg (27.0-33.0); MEAN CORPUSCULAR HGB CONC 32.9 g/dl (32.0-36.5); MEAN CORPUSCULAR VOLUME 96.1 fl (80.0-96.0); PLATELET COUNT, AUTOMATED 288 10^3/uL (150-450); RED BLOOD COUNT 3.61 10^6/uL (4.00-5.40); WHITE BLOOD COUNT 11.3 10^3/uL (4.0-10.0)
[2019-01-30 08:10] LABS: EOSINOPHILS 5 % (0-3); LYMPHOCYTES 34 % (16-44); MONOCYTES 4 % (0-5); NEUTROPHILS 57 % (28-66); PLATELET ESTIMATE NORMAL (NORMAL)
[2019-01-30] MEDS: LOSARTAN 25 MG TAB PO SCH (09:00)
[2019-01-30] MEDS ORDERED: oxyBUTYnin *DITROPAN XL* 5 MG TABCR PO SCH (09:00)
[2019-01-30] MEDS: FUROSEMIDE 40 MG TAB PO SCH (09:00)
[2019-01-30] MEDS: DOCUSATE SODIUM 100 MG CAP PO SCH ×3 (10:28→20:17)
[2019-01-30] MEDS: OMEPRAZOLE 20 MG CAP PO SCH ×2 (10:29→20:17)
[2019-01-30] MEDS: GABAPENTIN 400 MG CAP PO SCH ×3 (10:29→20:17)
[2019-01-30] MEDS: FAMOTIDINE 20 MG TAB PO SCH ×2 (10:29→20:16)
[2019-01-30] MEDS: CEFDINIR 300 MG CAP (OMNICEF) PO SCH ×2 (10:29→20:17)
[2019-01-30] MEDS: NYSTATIN 100,000 UNITS/GM TOPICAL PWD 15 GM TOP PRN (10:30)
[2019-01-30] MEDS: MONTELUKAST 10 MG TAB PO SCH (10:30)
[2019-01-30] MEDS: NICOTINE 21MG/24HR 1 EA TRANSDERMAL TD SCH (10:31)
[2019-01-30] MEDS ORDERED: POTASSIUM CHLORIDE 10 MEQ SR TABLET PO ONE ×2 (11:00→12:00)
[2019-01-30] MEDS: PRAMIPEXOLE 0.25 MG TAB PO SCH ×2 (11:01→20:17)
[2019-01-30] MEDS: buPROPion (WELLBUTRIN SR) 100 MG SR TAB PO SCH ×2 (11:01→20:16)
--- NOTE | 2019-01-30 11:02 | IPNPDOC ---
Text Note Date of Service The patient was seen on 01/30/19. NOTE Ms. Mccray was seen at bedside this morning. She denies acute changes to her condition. She states she began feeling dizzy/lightheaded/Hot and cold this past Wednesday. She denies any of those symptoms currently and states that she is only dizzy when she is ambulating. Denies any recent falls or loss of consciousness. Review of her labs morning showed UTI, however she denies any dysuria, oliguria, polyuria, suprapubic pain. She denies being in any pain, tremors of breath, headache, hearing, vision changes, cough, paresthesia. She states she is currently living in a residential. Should be noted that this patient was received admitted last week for similar symptoms and has a history of chronic lymphedema in her lower cavities. It believed that her symptoms were due to overdiuresis from outpatient medications. During her stay she received gentle IV fluid hydration and her diuretics were held. She also received PT treatment with wraps placed on her lower extremity is bilaterally. She states she continued to wear her wraps after discharge. She denies drinking caffeine recently but three diet pepsi bottles were seen at bedside. Physical exam: General: Patient is a 43-year-old obese female lying in hospital bed on exam. She did not appear to be in significant distress. HEENT: Pupils respond to light and are equal. No scleral icterus noted. Trachea midline. Poor dentition noted. No ulcers or plaques seen in oral exam. No JVD noted. Lungs: Lungs clear to auscultation B/L. Vesicular breath sounds heard throughout lung exam. Heart: Regular rhythm and normal rate noted. No murmurs, rubs, or knocks noted. No muffled heart sounds. Abdomen: Normal abdominal sounds noted in all 4 quadrants. No organomegaly, bruits, or distension noted. No guarding or rebound tenderness. No Jaundice noted. No pain or tenderness to palpation noted Extremities: Prominent bilateral lymphedema noted in her lower extremities. Patient will receive PT treatments and wraps to manage her lymphedema. No rashes, wounds, weeping sores noted. No significant muscle atrophy noted. Neuro: No focal deficits noted noted. Alert and aware X3 Skin: Intertriginous candidiasis noted under both breasts bilaterally as well as under her lower right abdominal skin flap. Nystatin powder has been applied. Patient has 78 cm bruise noted on lower left abdominal quadrant from heparin injection as well as a newer bruise noted on her right abdomen from her most recent heparin injection. No ulcerations noted Imaging: CXR: Negative for acute cardiopulmonary disease - No change #Chills and hot flashes - unlikely 2/2 infection, possibly 2/2 thyroid disease, possibly 2/2 menopause - Patient reports that shes been experiencing chills and hot flashes since this past Wednesday - Patient remains relatively stable and afebrile - Urinalysis shows UTI - Patient started on Cefdinir 300 mg - Mild leukocytosis is noted, however, has been unchanged from prior CBCs - Respiratory panel 01/29: Negative - Blood cultures pending - CXR is negative for acute cardiopulmonary disease - TSH and T4 normal - Procalcitonin is pending #UTI: -Urinalysis shows 3+ leukocyte esterase, 181 WBCs, and positive nitrites. -Patient is not complaining of dysuria, polyuria or suprapubic tenderness -WBC count is mildly elevated at 11.3 -Patient is receiving cefdinir 300 mg PO BID JAMI #Hypokalemia: -Pt potassium is 3.3 this morning which is slightly decreased from 3.7 previously. -40 mEq oral one time given today -Monitor with serial BMP during her stay #COPD/Asthma - Lungs CTA B/L. 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 Mildly dec reased this morning to 102/58. #DM2 - Sliding scale insulin - Glucagon and glucose available PRN - blood glucose 128 and 147 yesterday, will continue to monitor and adjust as appropriate #DLP -Currently not on medications #Morbid obesity: BMI 56.5 -Further outpatient provider for weight management -Likely contributing to her immobility and decreased lymphatic return #Intertriginous candidiasis: Located under both breasts mildly. Large area of rash noted under her left abdominal flap. -Patient receiving nystatin powder -She states no pruritus or pain. #Restless leg syndrome: -Continue Pramipexole Dihydrochloride 0.25 mg -Patient not currently complaining of symptoms - appears well controlled #Chronic pain: -c/w Gabapentin 800 mg, Cyclobenzaprine 10 mg and Oxycodone 5 mg -Patient not complaining of significant pain currently-appears well controlled #Hx of depression: -Continue aripiprazole 2 mg, Bupropion HCl 100 mg, Duloxetine 90 mg, #RYAN: CPAP protocol. #HTN: COPD/asthma: Patient on Singulair, albuterol when necessary, Flonase when necessary #GERD: Continue omeprazole 20 mg, famotidine 20 mg #Overactive bladder: Continue oxybutynin 10 mg #Nicotine dependence: 1 patch 21mg/ 24 hours Daily TD #Dry Eyes: -Continue Artificial tears 1 drop PRN -Conjunctiva appeared moist -Patient's symptoms likely related to antimuscarinic AE of her multiple medications #Polypharmacy: -This patient is on multiple medications that may cause dizziness, sedation, weight gain, hypotension, anticholinergic AE among many others. -Her RLS, COPD, BP, Depression appear fairly well controlled. -She may benefit from a reduction in her polypharmacy load. #DVT prophylaxis: Subcutaneous heparin 5000 units every 8H. Bruising noted on injection sites. VS,Fishbone, I+O VS, Fishbone, I+O Laboratory Tests 01/29/19 10:41 Red Blood Count 4.12, Mean Corpuscular Volume 94.9, Mean Corpuscular Hemoglobin 31.6, Mean Corpuscular Hemoglobin Concent 33.2, Red Cell Distribution Width 14.2, Neutrophils (%) (Auto) 65.3, Lymphocytes (%) (Auto) 26.0, Monocytes (%) (Auto) 6.1 H, Eosinophils (%) (Auto) 1.2, Basophils (%) (Auto) 0.4, Neutrophils # (Auto) 7.4, Lymphocytes # (Auto) 2.9, Monocytes # (Auto) 0.7, Eosinophils # (Auto) 0.1, Basophils # (Auto) 0.0, Calcium Level 9.0 01/30/19 05:39 Calcium Level 8.7 01/30/19 07:22 Red Blood Count 3.61 L, Mean Corpuscular Volume 96.1 H, Mean Corpuscular Hemogl obin 31.6, Mean Corpuscular Hemoglobin Concent 32.9, Red Cell Distribution Width 14.3, Lymphocytes # (Auto) Vital Signs Date Time Temp Pulse Resp B/P (MAP) Pulse Ox O2 Delivery O2 Flow Rate FiO2 01/30/19 06:00 98.1 59 19 106/58 (74) 99 01/29/19 10:14 Room Air I&O- Last 24 Hours up to 6 AM 01/30/19 05:59 Intake Total 300 ml Balance 300 ml GME ATTESTATION GME ATTESTATION My faculty preceptor for this patient encounter was physically present during the encounter and was fully available. All aspects of the patient interview, examination, medical decision making process, and medical care plan development were reviewed and approved by the faculty preceptor. The faculty preceptor is aware and concurs with the plan as stated in the body of this note and will attest to such by his/her cosignature. ATTENDING NOTE I, Renae Brock, have independently examined this patient and performed my own physical exam, as well as reviewed the documentation and edited where necessary. I have discussed in detail with the resident / student the findings and plan of treatment as documented by the resident / student and edited their note. I agree with their findings and treatment plan and have edited their documentation. I will continue to follow the patient during this hospital stay. ROBERT MCDONALD OMS-3 Jan 30, 2019 11:02 RENAE BROCK MD Jan 30, 2019 15:39
[2019-01-30 14:00] VITALS: BP 116/54
[2019-01-30] MEDS ORDERED: ONDANSETRON 4 MG TAB (S0181) PO PRN (15:15)
[2019-01-30] MEDS: oxyCODONE 5MG TAB PO PRN (15:36)
[2019-01-30] MEDS: ARIPiprazole 2 MG TAB PO SCH (20:16)
[2019-01-30] MEDS: FERROUS SULFATE 325MG TAB PO SCH (20:16)
[2019-01-30] MEDS: AMITRIPTYLINE 25 MG TAB PO SCH (20:16)
[2019-01-30] MEDS: DULoxetine 30 MG CAP (CYMBALTA) PO SCH (20:17)
[2019-01-30 22:00] VITALS: BP 117/58
[2019-01-31] MEDS: IPRATROPIUM 0.5MG/ALBUTEROL 2.5MG INH SOL UD 3ML (DUONEB)(J7620) NEB SCH ×3 (02:00→13:18)
[2019-01-31] MEDS: HEPARIN SOD (PORCINE) 5000 UNITS/ML VIAL SC SCH ×2 (05:15→13:30)
[2019-01-31 06:00] VITALS: BP 111/73
[2019-01-31 06:13] LABS: HEMATOCRIT 35.9 % (36.0-47.0); HEMOGLOBIN 11.7 g/dl (12.0-15.5); MEAN CORPUSCULAR HEMOGLOBIN 31.3 pg (27.0-33.0); MEAN CORPUSCULAR HGB CONC 32.6 g/dl (32.0-36.5); PLATELET COUNT, AUTOMATED 286 10^3/uL (150-450); RED BLOOD COUNT 3.74 10^6/uL (4.00-5.40)
[2019-01-31 06:16] LABS: WHITE BLOOD COUNT 12.6 10^3/uL (4.0-10.0)
[2019-01-31] MEDS: ACETAMINOPHEN TAB 650MG DOSE (2X325MG) PO PRN (06:22)
[2019-01-31 06:26] LABS: ANISOCYTOSIS 1+; EOSINOPHILS 4 % (0-3); LYMPHOCYTES 48 % (16-44); MONOCYTES 3 % (0-5); NEUTROPHILS 45 % (28-66); PLATELET ESTIMATE NORMAL (NORMAL); POLYCHROMASIA 1+
[2019-01-31 06:39] LABS: BLOOD UREA NITROGEN 10 MG/DL (7-18); CALCIUM LEVEL 8.6 MG/DL (8.5-10.1); CARBON DIOXIDE LEVEL 24 MEQ/L (21-32); CHLORIDE LEVEL 114 MEQ/L (98-107); CREATININE FOR GFR 0.82 MG/DL (0.55-1.30); GLOMERULAR FILTRATION RATE > 60.0 (>58); GLUCOSE, FASTING 89 MG/DL (70-100); HCG, SERUM QUANTITATIVE < 1.0 MIU/ML; MAGNESIUM LEVEL 1.9 MG/DL (1.8-2.4); POTASSIUM SERUM 3.9 MEQ/L (3.5-5.1); SODIUM LEVEL 144 MEQ/L (136-145)
[2019-01-31] MEDS: HumaLOG INSULIN (NovoLOG) PER UNIT SC SCH ×2 (07:30→13:31)
[2019-01-31 09:00] VITALS: BP 106/60
[2019-01-31] MEDS: FUROSEMIDE 40 MG TAB PO SCH (09:00)
[2019-01-31] MEDS: LOSARTAN 25 MG TAB PO SCH (09:00)
[2019-01-31] MEDS: OMEPRAZOLE 20 MG CAP PO SCH (10:06)
[2019-01-31] MEDS: PRAMIPEXOLE 0.25 MG TAB PO SCH (10:06)
[2019-01-31] MEDS: DOCUSATE SODIUM 100 MG CAP PO SCH ×2 (10:06→16:20)
[2019-01-31] MEDS: FAMOTIDINE 20 MG TAB PO SCH (10:06)
[2019-01-31] MEDS: GABAPENTIN 400 MG CAP PO SCH ×2 (10:06→16:20)
[2019-01-31] MEDS: NICOTINE 21MG/24HR 1 EA TRANSDERMAL TD SCH (10:07)
[2019-01-31] MEDS: CEFDINIR 300 MG CAP (OMNICEF) PO SCH (10:07)
[2019-01-31] MEDS: MONTELUKAST 10 MG TAB PO SCH (10:07)
[2019-01-31] MEDS: buPROPion (WELLBUTRIN SR) 100 MG SR TAB PO SCH (10:07)
--- NOTE | 2019-01-31 13:53 | IPNPDOC ---
Text Note Date of Service The patient was seen on 01/31/19. NOTE Ms. Mccray was seen at bedside this morning , stated that she feels better and has no acute changes to her condition. He states that she still has some orthostatic dizziness which is present for a few seconds after she stands up. States she is still slightly nauseous but that her Zofran is helping. She again denies any symptoms of UTI such as dysuria, polyuria. He states that her condyle rash is still present but is improving on her breasts as well as slightly improved underneath her abdominal skin flaps. She denies any itching or burning or pain from these rashes. She states that she does not know why she has a diagnosis of COPD however, she is an active smoker and does complain of a "smoker's cough". She states her cough is nonproductive and not worsening. . She states no changes in her restless leg syndrome symptoms. She states no change in her lower back chronic pain. She continues to feel chilly. He denies any bowel movements in the past 2 days. States that she does not feel constipated. Physical exam: General: Patient is a 43-year-old obese female lying in hospital bed on exam. She did not appear to be in significant distress. HEENT: Pupils respond to light and are equal. No scleral icterus noted. Trachea midline. Poor dentition noted. No ulcers or plaques seen in oral exam. No JVD noted. Lungs: Lungs clear to auscultation B/L. Vesicular breath sounds heard throughout lung exam. Heart: Regular rhythm and normal rate noted. No murmurs, rubs, or knocks noted. No muffled heart sounds. Abdomen: Normal abdominal sounds noted in all 4 quadrants. No organomegaly, bruits, or distension noted. No guarding or rebound tenderness. No Jaundice noted. No pain or tenderness to palpation noted Extremities: Prominent bilateral lymphedema noted in her lower extremities. Patient will receive PT treatments and wraps to manage her lymphedema. No rashes, wounds, weeping sores noted. No significant muscle atrophy noted. Neuro: No focal deficits noted noted. Alert and aware X3 Skin: Intertriginous candidiasis noted under both breasts B/L as well as under her lower abdominal skin flaps B/L. Nystatin powder has been applied. Patient has 78 cm bruise noted on lower left abdominal quadrant from heparin injection as well as a newer bruise noted on her right abdomen from her most recent heparin injection. No ulcerations noted Imaging: CXR: Negative for acute cardiopulmonary disease - No change #Chills and hot flashes - unlikely 2/2 infection, possibly 2/2 thyroid disease, possibly 2/2 menopause - Patient reports that shes been experienced chills and hot flashes starting on past Wednesday which prompted her to return to [facility] - Patient remains relatively stable and afebrile - Urinalysis showed UTI yesterday-Patient started on Cefdinir 300 mg - Mild leukocytosis is noted, however, has been unchanged from prior CBCs - Respiratory panel 01/29: Negative - Blood cultures pending - CXR is negative for acute cardiopulmonary disease - TSH and T4 normal - Procalcitonin is was ordered and was normal #UTI: -Urine culture + for E. Coli -Urinalysis shows 3+ leukocyte esterase, 181 WBCs, and positive nitrites. -Patient is not complaining of dysuria, polyuria or suprapubic tenderness -WBC count is mildly elevated at 12.6 which is slightly increased from 11.3 yesterday -Patient is receiving cefdinir 300 mg PO BID JAMI #Hypokalemia: -Pt potassium is 3.3 this morning which is slightly decreased from 3.7 previously. -40 mEq oral one time given today -Monitor with serial BMP during her stay #COPD/Asthma - Lungs CTA B/L. 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 Mildly de creased this morning to 102/58. #DM2 - Sliding scale insulin - Glucagon and glucose available PRN - blood glucose 128 and 147 yesterday, will continue to monitor and adjust as appropriate #Morbid obesity: BMI 56.5 -Further outpatient provider for weight management -Likely contributing to her immobility and decreased lymphatic return #Intertriginous candidiasis: Located under both breasts mildly. Large area of rash noted under her left abdominal flap. -Patient receiving nystatin powder -She states no pruritus or pain. #Restless leg syndrome: -Continue Pramipexole Dihydrochloride 0.25 mg -Patient not currently complaining of symptoms - appears well controlled #Chronic pain: -c/w Gabapentin 800 mg, Cyclobenzaprine 10 mg and Oxycodone 5 mg -Patient not complaining of significant pain currently-appears well controlled #Hx of depression: -Continue aripiprazole 2 mg, Bupropion HCl 100 mg, Duloxetine 90 mg, #RYAN: CPAP protocol. #HTN: COPD/asthma: Patient on Singulair, albuterol when necessary, Flonase when necessary #GERD: Continue omeprazole 20 mg, famotidine 20 mg #Overactive bladder: Continue oxybutynin 10 mg #Nicotine dependence: 1 patch 21mg/ 24 hours Daily TD #Dry Eyes: -Continue Artificial tears 1 drop PRN -Conjunctiva appeared moist -Patient's symptoms likely related to antimuscarinic AE of her multiple medications #Polypharmacy: -This patient is on multiple medications that may cause dizziness, sedation, weight gain, hypotension, anticholinergic AE among many others. -Her RLS, COPD, BP, Depression appear fairly well controlled. -She may benefit from a reduction in her polypharmacy load. #DLP -Currently not on medications #DVT prophylaxis: Subcutaneous heparin 5000 units every 8H. Bruising noted on injection sites. VS,Fishbone, I+O VS, Fishbone, I+O Laboratory Tests 01/31/19 05:52 Red Blood Count 3.74 L, Mean Corpuscular Volume 96.0, Mean Corpuscular Hemoglobin 31.3, Mean Corpuscular Hemoglobin Concent 32.6, Red Cell Distribution Width 14.4, Lymphocytes # (Auto) , Calcium Level 8.6 Vital Signs Date Time Temp Pulse Resp B/P (MAP) Pulse Ox O2 Delivery O2 Flow Rate FiO2 01/31/19 09:00 106/60 01/31/19 06:00 97.1 89 16 99 01/29/19 10:14 Room Air I&O- Last 24 Hours up to 6 AM 01/31/19 06:00 Intake Total 1810 ml Output Total 1600 ml Balance 210 ml ROBERT MCDONALD OMS-3 Jan 31, 2019 13:53
[2019-01-31] MEDS ORDERED: CEFD300CAP PO (13:57)
[2019-01-31 14:00] VITALS: BP 98/62
[2019-01-31 14:16] VITALS: BP 110/64
--- NOTE | 2019-01-31 14:32 | DS.PDOC ---
Discharge Summary General Date of Admission Jan 29, 2019 at 10:14 Date of Discharge 01/31/2019 Attending Physician: RENAE WHITE MD Discharge Summary PROCEDURES PERFORMED DURING STAY: None ADMITTING DIAGNOSES: #Chills and hot flashes - unlikely 2/2 infection, possibly 2/2 thyroid disease, possibly 2/2 menopause #Non-compliance / Poor ambulation / Difficulty with accessing follow up #HTN #DM2 #DLP #RYAN #COPD/Asthma #Normocytic anemia - possibly 2/2 COLETTE #Depression #RLS #Chronic pain #Active smoker #Chronic lymphedema #Morbid obesity #GERD #DVT prophylaxis DISCHARGE DIAGNOSES: #Chills and hot flashes - unlikely 2/2 infection, possibly 2/2 thyroid disease, possibly 2/2 menopause #UTI #Hypokalemia #COPD/Asthma #Non-compliance / Poor ambulation / Difficulty with accessing follow up #HTN #DM2 #Morbid obesity #Intertriginous candidiasis #Restless leg syndrome #Chronic pain #Hx of depression #RYAN #HTN #GERD #Overactive bladder #Nicotine dependence #Dry Eyes #Polypharmacy #DLP #DVT prophylaxis COMPLICATIONS/CHIEF COMPLAINT: Dizziness. HISTORY OF PRESENT ILLNESS: Patient is a 43-year-old female with a PMHx of HTN, DM2, DLP, RYAN, COPD / Asthma, Depression, Active smoker, Chronic lymphedema, Morbid obesity, who presented to the emergency room with complaints of chills and hot flashes.Patient was recently hospitalist was on January 15 and was discharged on January 23. Throughout that hospitalization, patient was suspected of having fluid overload and was aggressively diuresis. Patient cleared physical therapy and was subsequently discharged home. She was seen by physical therapy and was advised to keep on her compression stockings. Patient had presented again to the emergency room on January 24 and was discharged on January 26. Patient was noncompliant with her compression stockings. Patient again is presented to the emergency room today and has reported that she has not been taking her medications as prescribed. Patient has reported feeling chills and flashes. . She does not report any dizziness, chest pain, shortness of breath, cough, abdominal pain, diarrhea, or urinary discomfort. Patients significant other is present at the bedside. He has attested that he has been taking care of her, however, currently has not been able to facilitate her needs. Patient reports her appetite is poor but denies any significant change in her weight. HOSPITAL COURSE: Over this hospitalization Ms. Mccray has been continued on her home medications. She received Zofran prn nausea. She was unsure of when her last normal menstruation period was and was subsequently given a test which was negative. PT saw her and wrapped her lower extremities to assist in improving her lymphedema. Home safety evaluation was passed by patient. During her stay she was found to have a UTI which was treated with Cefdinir 300 mg PO QD. She also received Nicotine 21 mg/24 hour patches for control of her nicotine dependence. Also while she was at the hospital, her Potassium was noted to be mildly decreased at 3.3 which prompted 40 mEq KCl oral supplementation once. BMP and CMP were drawn which were negative for significant atypical results. Patient is cleared physical therapy and will be discharged home with her boyfriend in hopes that she will remain compliant with her treatment regimen. He has been present throughout the hospitalization and facilitated her care. Patient and boyfriend are agreeable to this plan and believe it might work better than the intermediate. DISCHARGE MEDICATIONS: Please see below. ALLERGIES: Please see below. PHYSICAL EXAMINATION ON DISCHARGE: VITAL SIGNS: Please see below. General: Patient is a 43-year-old obese female lying in hospital bed on exam. She did not appear to be in significant distress. HEENT: Pupils respond to light and are equal. No scleral icterus noted. Trachea midline. Poor dentition noted. No ulcers or plaques seen in oral exam. No JVD noted. Lungs: Lungs clear to auscultation B/L. Vesicular breath sounds heard throughout lung exam. Heart: Regular rhythm and normal rate noted. No murmurs, rubs, or knocks noted. No muffled heart sounds. Abdomen: Normal abdominal sounds noted in all 4 quadrants. No organomegaly, bruits, or distension noted. No guarding or rebound tenderness. No Jaundice noted. No pain or tenderness to palpation noted Extremities: Prominent bilateral lymphedema noted in her lower extremities. Patient will receive PT treatments and wraps to manage her lymphedema. No rashes, wounds, weeping sores noted. No significant muscle atrophy noted. Neuro: No focal deficits noted noted. Alert and aware X3 Skin: Intertriginous candidiasis noted under both breasts B/L as well as under her lower abdominal skin flaps B/L. Nystatin powder has been applied. Patient has 78 cm bruise noted on lower left abdominal quadrant from heparin injection as well as a newer bruise noted on her right abdomen from her most recent heparin injection. No ulcerations noted LABORATORY DATA: Please see below. IMAGING: CXR 01/29/2019: Impression: There is no acute cardiopulmonary disease. No change. PROGNOSIS: Guarded ACTIVITY: As tolerated DIET: As tolerated DISCHARGE INSTRUCTIONS: Discharge home with self care. Please continue to wrap legs nightly Please take medications as prescribed Please follow up with primary care provider in 5-7 days Should any of your symptoms return or you begin to experience fever, chills, or other signs of infection please return to the hospital for further evaluation Please return to the ER if you experience any problems DISCHARGE CONDITION: Stable TIME SPENT ON DISCHARGE: Greater than 60 minutes. Vital Signs/I&Os Vital Signs Date Time Temp Pulse Resp B/P (MAP) Pulse Ox O2 Delivery O2 Flow Rate FiO2 01/31/19 09:00 106/60 01/31/19 06:00 97.1 89 16 99 01/29/19 10:14 Room Air I&O- Last 24 Hours up to 6 AM 01/31/19 06:00 Intake Total 1810 ml Output Total 1600 ml Balance 210 ml Laboratory Data Labs 24H Laboratory Tests 2 01/30/19 16:26: Bedside Glucose (Misc Panel) 112H 01/30/19 19:01: Human Chorionic Gonadotropin, Quant 2 01/30/19 19:59: Bedside Glucose (Misc Panel) 130H 01/31/19 05:52: Human Chorionic Gonadotropin, Quant < 1.0, White Blood Count 12.6H, Red Blood C ount 3.74L, Hemoglobin 11.7L, Hematocrit 35.9L, Mean Corpuscular Volume 96.0, Mean Corpuscular Hemoglobin 31.3, Mean Corpuscular Hemoglobin Concent 32.6, Red Cell Distribution Width 14.4, Platelet Count 286, Lymphocytes # (Auto) , Nucleated Red Blood Cells % (auto) 0.0, Neutrophils 45, Lymphocytes (Manual) 48H, Monocytes (Manual) 3, Eosinophils (Manual) 4H, Platelet Estimate NORMAL, Polychromasia 1+, Anisocytosis 1+, Anion Gap 6L, Glomerular Filtration Rate > 60.0, Blood Urea Nitrogen 10, Creatinine 0.82, Sodium Level 144, Potassium Level 3.9, Chloride Level 114H, Carbon Dioxide Level 24, Calcium Level 8.6, Magnesium Level 1.9 01/31/19 11:19: Bedside Glucose (Misc Panel) 164H CBC/BMP Laboratory Tests 01/31/19 05:52 Red Blood Count 3.74 L, Mean Corpuscular Volume 96.0, Mean Corpuscular Hemoglobin 31.3, Mean Corpuscular Hemoglobin Concent 32.6, Red Cell Distribution Width 14.4, Lymphocytes # (Auto) , Calcium Level 8.6 FSBS Laboratory Tests Test 01/30/19 16:26 01/30/19 19:59 01/31/19 11:19 Range/Units Bedside Glucose (Misc Panel) 112 130 164 70-105 MG/DL Microbiology Microbiology 01/29/19 Urine Culture - Final, Complete Escherichia Coli 01/29/19 Blood Culture - Preliminary, Resulted No growth after 24 hours . All specim... 01/29/19 Blood Culture - Preliminary, Resulted No Growth after 48 hours. All Specime... 01/29/19 Respiratory Virus Panel (PCR) (JACK) - Final, Complete Discharge Medications Scheduled Amitriptyline HCl (Amitriptyline HCl) 25 Mg Tab, 25 MG PO QHS, (Reported) Aripiprazole (Aripiprazole) 2 Mg Tablet, 2 MG PO QHS, (Reported) Bupropion Hcl (Bupropion HCl Sr) 100 Mg Tab, 100 MG PO BID, (Reported) Cefdinir (Cefdinir) 300 Mg Capsule, 300 MG PO BID Cetirizine HCl (Cetirizine HCl) 10 Mg Tab, 10 MG PO QHS, (Reported) Cholecalciferol (Vitamin D3) (Vitamin D3) 5,000 Unit Capsule, 5,000 UNITS PO DAILY, (Reported) Docusate Sodium (Docusate Sodium) 100 Mg Cap, 100 MG PO TID, (Reported) Duloxetine HCl (Duloxetine HCl) 60 Mg Capsule.dr, 60 MG PO QHS, (Reported) 90MG TOTAL Duloxetine Hcl (Duloxetine HCl) 30 Mg Cap, 30 MG PO QHS, (Reported) 90MG TOTAL Famotidine (Famotidine) 20 Mg Tablet, 20 MG PO BID, (Reported) Ferrous Sulfate (Iron) 325 Mg Tablet, 325 MG PO QPM, (Reported) Furosemide (Lasix) 40 Mg Tablet, 40 MG PO DAILY, (Reported) Gabapentin (Gabapentin) 800 Mg Tablet, 800 MG PO TID, (Reported) Losartan Potassium (Losartan Potassium) 25 Mg Tab, 25 MG PO DAILY, (Reported) Metformin HCl (Metformin HCl) 1,000 Mg Tablet, 1,000 MG PO BID, (Reported) Misoprostol (Misoprostol) 200 Mcg Tablet, 400 MCG PO BID, (Reported) Montelukast Sodium (Montelukast Sodium) 10 Mg Tab, 10 MG PO DAILY, (Reported) Omeprazole (Omeprazole) 20 Mg Capsule.dr, 20 MG PO BID, (Reported) Oxybutynin Chloride (Ditropan Xl) 10 Mg Tab, 10 MG PO DAILY, (Reported) Pramipexole Di-HCl (Mirapex) 0.25 Mg Tablet, 0.25 MG PO BID, (Reported) Pregabalin (Lyrica) 200 Mg Cap, 200 MG PO TID, (Reported) Scheduled PRN Albuterol Sulfate (Ventolin Hfa) 18 Gm Hfa.aer.ad, 2 PUFF INH Q4H PRN for SOB/WHEEZING, (Reported) Cyclobenzaprine HCl (Cyclobenzaprine HCl) 10 Mg Tab, 10 MG PO Q8H PRN for MUSCLE SPASMS, (Reported) Fluticasone Propionate (Fluticasone Propionate) 16 Gm [place].susp, 2 SPRAY NARES DAILY PRN for CONGESTION, (Reported) Oxycodone HCl (Oxycodone HCl) 5 Mg Tab, 5 MG PO Q8H PRN for PAIN, (Reported) Polyvinyl Alcohol (Artificial Tears) 1.4 % Lenore, 1 DROP OU QID PRN for DRY EYES, (Reported) Allergies Coded Allergies: Sulfa (Sulfonamide Antibiotics) (Verified Allergy, Intermediate, rash, 01/24/19) NSAIDS (Non-Steroidal Anti-Inflamma (Verified Adverse Reaction, Intermediate, Due to gastric bypass, 01/24/19) GME ATTESTATION GME ATTESTATION My faculty preceptor for this patient encounter was physically present during the encounter and was fully available. All aspects of the patient interview, examination, medical decision making process, and medical care plan development were reviewed and approved by the faculty preceptor. The faculty preceptor is aware and concurs with the plan as stated in the body of this note and will attest to such by his/her cosignature. ATTENDING NOTE I, Renae White, have independently examined this patient and performed my own physical exam, as well as reviewed the documentation and edited where necessary. I have discussed in detail with the resident / student the findings and plan of treatment as documented by the resident / student and edited their note. I agree with their findings and treatment plan and have edited their documentation. I will continue to follow the patient during this hospital stay. Time spent on discharge 25 minutes ROBERT MCDONALD S-3 Jan 31, 2019 14:32 ANTONINO ACOSTA DO Jan 31, 2019 15:09 RENAE WHITE MD Jan 31, 2019 15:44
== END 2019-01-31 16:22 | disposition home or self-care (01) ==
LOC: M ED 10:13 → UNDOADMOB 10:14 → M ED INP 10:14 → M MSPAV 14:23
PROVIDERS: ADMIT Internal Medicine; ATTEND Internal Medicine
DX: R68.83 Chills (without fever) (principal); R23.2 Flushing; N39.0 Urinary tract infection, site not specified; E87.6 Hypokalemia; J44.9 Chronic obstructive pulmonary disease, unspecified; Z91.19 Patient's noncompliance with other medical treatment and regimen; I10 Essential (primary) hypertension; E11.9 Type 2 diabetes mellitus without complications; E66.01 Morbid (severe) obesity due to excess calories; B37.2 Candidiasis of skin and nail; G47.33 Obstructive sleep apnea (adult) (pediatric); G25.81 Restless legs syndrome; K21.9 Gastro-esophageal reflux disease without esophagitis; N32.81 Overactive bladder; F17.218 Nicotine dependence, cigarettes, with other nicotine-induced disorders; E78.49 Other hyperlipidemia; H04.129 Dry eye syndrome of unspecified lacrimal gland; Z79.84 Long term (current) use of oral hypoglycemic drugs; Z79.899 Other long term (current) drug therapy; Z88.2 Allergy status to sulfonamides; Z88.8 Allergy status to other drugs, medicaments and biological substances

== ENCOUNTER 2019-02-13 08:12 | Outpatient (RCR) | payer OTHER ==
[~2019-02-13 08:12] MED LIST changes: +CEFD300CAP PO; -OMEP40CA2; +OMEP40CA97
== END 2019-02-16 | disposition home or self-care (01) ==
LOC: M PT 08:12
PROVIDERS: ATTEND Family Medicine
DX: R26.9 Unspecified abnormalities of gait and mobility (principal); I89.0 Lymphedema, not elsewhere classified

== ENCOUNTER 2019-02-20 12:33 | Outpatient (RCR) | payer OTHER ==
[~2019-02-20 12:33] MED LIST changes: -SIMV20TA2 PO; +SIMV20TA22 PO
== END 2019-03-18 ==
LOC: M PT 12:33
PROVIDERS: ATTEND Family Medicine
DX: I89.0 Lymphedema, not elsewhere classified (principal)

== ENCOUNTER → 2019-02-23 | Outpatient (CLI) | payer OTHER ==
[~2019-02-23] MED LIST changes: +SIMV20TA2 PO; -SIMV20TA22 PO
--- NOTE | 2019-02-23 11:42 | REPMRS ---
Patient History The patient states she had a clinical breast exam in 2018. Family history of unknown cancer at age 50 or over in maternal aunt, unknown cancer at age 50 or over in maternal grandfather. Digital Mammo Screening Bilat: February 23, 2019 - Exam #: [id number] Bilateral CC and MLO view(s) were taken. Technologist: Lexis Clifford, Technologist Prior study comparison: December 16, 2017, bilateral digital mammo screening bilat performed at [facility]. October 05, 2016, bilateral digital mammo screening bilat performed at [facility]. September 30, 2015, bilateral digital mammo screening bilat performed at [facility]. FINDINGS: There are scattered fibroglandular densities. There has been no change in the appearance of the mammogram from the prior studies. There is a mild amount of scattered fibroglandular density which is fairly symmetric. There is no interval development of dominant mass, architectural distortion, or grouped microcalcification suggestive of malignancy. 3-D tomosynthesis shows no additional findings. Assessment: BI-RADS/ACR category 1 mammogram. Negative Mammogram. Recommendation Routine screening mammogram of both breasts in 1 year (for women over age 40). This patient's Lifetime Breast Cancer Risk is estimated at 14.3 %. This mammogram was interpreted with the aid of an FDA-approved computer-aided dectection system. Electronically Signed By: Caden Bui MD 02/23/19 [id number]
== END ==
LOC: M RAD 09:54
PROVIDERS: ATTEND Obstetrics & Gynecology
DX: Z12.31 Encounter for screening mammogram for malignant neoplasm of breast (principal)

== ENCOUNTER → 2019-02-23 | Outpatient (CLI) | payer OTHER ==
[2019-02-23 10:19] LABS: APPEARANCE, URINE CLEAR (CLEAR); BACTERIA, URINE AUTO 1+ (NEGATIVE); BILIRUBIN, URINE AUTO NEGATIVE (NEGATIVE); BLOOD, URINE BLOOD NEGATIVE (NEGATIVE); COLOR, URINE YELLOW (YELLOW); GLUCOSE, URINE (UA) AUTO NEGATIVE (NEGATIVE); KETONE, URINE AUTO NEGATIVE (NEGATIVE); LEUKOCYTE ESTERASE, URINE AUTO TRACE (NEGATIVE); NITRITE, URINE AUTO NEGATIVE (NEGATIVE); PROTEIN, URINE AUTO NEGATIVE (NEGATIVE); RBC, URINE AUTO 1 /HPF (0-3); SPECIFIC GRAVITY URINE AUTO 1.004 (1.002-1.035); SQUAMOUS EPITHELIAL CELL UR AU 1 /HPF (0-6); UROBILINOGEN, URINE AUTO 0.2 mg/dL (0.0-2.0); WBC, URINE AUTO 9 /HPF (0-3)
[2019-02-23 10:42] LABS: BLOOD UREA NITROGEN 7 MG/DL (7-18); CALCIUM LEVEL 9.3 MG/DL (8.5-10.1); CARBON DIOXIDE LEVEL 29 MEQ/L (21-32); CHLORIDE LEVEL 106 MEQ/L (98-107); CREATININE FOR GFR 0.78 MG/DL (0.55-1.30); GLOMERULAR FILTRATION RATE > 60.0 (>58); GLUCOSE, FASTING 110 MG/DL (70-100); MAGNESIUM LEVEL 1.8 MG/DL (1.8-2.4); POTASSIUM SERUM 3.9 MEQ/L (3.5-5.1); SODIUM LEVEL 140 MEQ/L (136-145)
--- NOTE | 2019-02-23 21:53 | REP ---
Clinical: Right ankle and foot pain Technique: AP, lateral, bilateral oblique views right foot . Findings: Osteopenia and generalized age-related changes are suggested. Lateral view demonstrates small calcaneal heal spur and calcifications at the Achilles tendon insertion. No acute fracture or dislocation. Impression: Osteopenia and generalized age-related changes including small calcaneal heal spur. No acute fracture or dislocation. Electronically Signed by Milad Momin MD 02/23/2019 09:45 P
--- NOTE | 2019-02-23 21:55 | REP ---
Clinical: Right ankle pain. Technique: AP, lateral, bilateral oblique views of the right ankle. Findings: Osteopenia is suggested. Lateral view demonstrates calcaneal heal spur along with calcification at the insertion of the Achilles tendon on the calcaneus. Swelling cannot be excluded. No obvious acute fracture. Impression: Osteopenia and generalized degenerative changes. Electronically Signed by Milad Momin MD 02/23/2019 09:47 P
== END ==
LOC: M LAB 09:19
PROVIDERS: ATTEND Family Medicine
DX: N39.0 Urinary tract infection, site not specified (principal); R60.9 Edema, unspecified; M77.31 Calcaneal spur, right foot; M85.871 Other specified disorders of bone density and structure, right ankle and foot; M25.571 Pain in right ankle and joints of right foot

== ENCOUNTER → 2019-02-28 | Outpatient (CLI) | payer OTHER ==
[~2019-02-28] MED LIST changes: +BUPIVACAINE HCL 0.25% 30 ML VIAL As Ordered ONE; +ISOVUE-M 300 61% 15ML VIAL (Q9967) As Ordered ONE; +LIDOCAINE 1% SDV INJ 30 ML VIAL As Ordered ONE
--- NOTE | 2019-02-28 16:34 | REP ---
Partial lumbar spine series: To views . History: Injection procedure for pain. 20 seconds of fluoroscopy time is reported. Findings: A sequence of two fluoroscopically obtained last image hold procedural spot radiographs of the lumbar spine document needle position and contrast injection associated with injection procedure. Electronically Signed by Biju Bui MD 02/28/2019 04:25 P
--- NOTE | 2019-03-08 01:07 | ECWPNPC ---
PATIENT NAME: STELLA TAVERAS : 1975 GENDER: FEMALE VISIT DATE: 02/28/2019 DISCHARGE DATE: 02/28/19 1630 VISIT LOCKED DATE TIME: PHYSICIAN: AMELIA LAI MD RESOURCE: AMELIA LAI MD REASON FOR APPOINTMENT 1. LEFT L4/5-L5/S1 DX LFB #2, HISTORY OF PRESENT ILLNESS HISTORY OF PRESENT ILLNESS: PAIN THE PATIENT DESCRIBES THE PAIN... FALL RISK SCREENING: SCREENING :NO FALLS REPORTED IN THE LAST YEAR CURRENT MEDICATIONS TAKING ABILIFY 5 MG TABLET 1 TABLET ORALLY ONCE A DAY, NOTES: 02/27 2100 TAKING CETIRIZINE HCL 10 MG TABLET ORALLY ONCE A DAY, NOTES: 02/27 2100 TAKING LOSARTAN POTASSIUM 25 MG TABLET ORALLY DAILY, NOTES: 02/28 730 TAKING MONTELUKAST SODIUM 10 MG TABLET 1 TABLET ORALLY ONCE A DAY, NOTES: 02/28 730 TAKING DITROPAN XL 10 MG TABLET EXTENDED RELEASE 24 HOUR 1 TABLET ORALLY ONCE A DAY, NOTES: 02/28 730 TAKING OMEPRAZOLE 40 MG CAPSULE DELAYED RELEASE 1 CAPSULE ORALLY FOUR TIMES DAILY, NOTES: 02/28 730 TAKING VITAMIN B12 500 TABLET 500 MCG ORALLY DAILY, NOTES: 02/28 730 TAKING MULTIVITAMIN 1 TABLET CHEWABLE 1 TAB(S) ORALLY DAILY, NOTES: 02/28 730 TAKING CALCIUM CITRATE + 630 MG TABLET 2 TABLET WITH MEALS ORALLY TWICE A DAY, NOTES: 02/28 1130 TAKING LASIX 40 MG TABLET ORALLY DAILY, NOTES: 02/28 730 TAKING METFORMIN HCL 1000 MG TABLET 1 TABLET WITH MEALS ORALLY TWICE A DAY, NOTES: 02/27 2100 TAKING WELLBUTRIN 100 MG TABLET 1 TABLET ORALLY TWICE A DAY, NOTES: 02/28 730 TAKING IRON 325 MGS 1 TAB ORAL DAILY, NOTES: 02/27 1730 TAKING CYMBALTA 90 MG CAPSULE DELAYED RELEASE PARTICLES 1 CAPSULE ORALLY 30MG CAP AND 60 MG CAP DAILY, NOTES: 02/27 2100 TAKING VITAMIN D 1000 UNIT CAPSULE CAPSULE ORALLY ONCE A DAY, NOTES: 02/28 730 TAKING COLACE 100 MG CAPSULE 1 CAPSULE NEEDED ORALLY 3X/DAY, NOTES: 02/28 730 TAKING FLONASE 50 MCG/ACT SUSPENSION 1 SPRAY IN EACH NOSTRIL NASALLY ONCE A DAY NEEDED, NOTES: 02/28 1200 TAKING SUMATRIPTAN SUCCINATE 50 MG TABLET 1 TABLET NEEDED ORALLY DIRECTED, NOTES: NONE RECENT TAKING AMITRIPTYLINE HCL 25 MG TABLET 1 TABLET ORALLY ONCE A DAY, NOTES: 02/27 2100 TAKING GABAPENTIN 800 MG TABLET 1 CAPSULE ORALLY FOR PAIN TID, NOTES: 02/28 730 TAKING LYRICA 200 MG CAPSULE 1 CAPSULE ORALLY Q8H TID MDD3, NOTES: 02/28 730 TAKING OXYCODONE HCL 5 MG TABLET 1 TABLET NEEDED ORALLY Q8H PRN MDD3 #50 TAB SHOULD LAST 30 DAYS, NOTES: 02/25 TAKING CYCLOBENZAPRINE HCL 10 MG TABLET DIRECTED ORALLY Q8H PRN PAIN #30 TAB SHOULD LAST 30 DAYS, NOTES: 02/26 TAKING MORPHINE SULFATE ER 15 MG TABLET EXTENDED RELEASE 1 TABLET ORALLY EVERY 12 HRS MDD2, NOTES: 02/28 730 NOT-TAKING BUPRENORPHINE HCL 300 MCG FILM 1 FILM TO THE GUM BUCALLY EVERY 12 HRS, NOTES: HAS NOT STARTED YET MEDICATION LIST REVIEWED AND RECONCILED WITH THE PATIENT PAST MEDICAL HISTORY DIABETES HYPERTENSION HYPERCHOLESTEREMIA OBESITY GERD (GASTROESOPHAGEAL REFLUX DISEASE) GASTRIC BYPASS ANXIETY BACK PAIN RIGHT HIP AND KNEE PAIN ALLERGIES SULFA (FOR ALLERGY USE ONLY): RASH - ALLERGY NSAIDS: GASTRIC BYPASS - CONTRAINDICATION SURGICAL HISTORY GASTRIC BYPASS 06/2015 BILAT CARPAL TUNNEL C SECTION CHOLECYSTECTOMY TONSILLECTOMY & ADENOIDECTOMY D&C 10/2017 ENDOSCOPY 11/2018 FAMILY HISTORY FATHER: , DIAGNOSED WITH UNSPECIFIED HEART DISEASE MOTHER: ALIVE, DIABETES, HYPERTENSION 2 BROTHER(S) . 1 SON(S) - HEALTHY. 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 TO GET PATCHES THROUGH HER PRIMARY COUNSELED THE PATIENT ON SMOKING CESSATION, EDUCATION [id number]/12/2019 HOW MANY CIGARETTES A DAY DO YOU SMOKE?11-20 HOW SOON AFTER YOU WAKE UP DO YOU SMOKE YOUR FIRST CIGARETTE?WITHIN 5 MIN HOW OFTEN DO YOU SMOKE CIGARETTES?EVERY DAY PATIENT COUNSELED ON THE DANGERS OF TOBACCO USE AND URGED TO QUIT:02/28/2019 SMOKING CESSATION INFORMATION GIVEN08/16/2018 PAMPHLET GIVEN 08/16/18 OTHERS AT HOME: CHILD, OTHER NON-RELATIVE. EDUCATION LEVEL OF EDUCATION:NOT FINISHED COLLEGE DIET: REGULAR. LANGUAGE LANGUAGES SPOKEN:AZERBAIJANI DOMESTIC VIOLENCE DO YOU FEEL SAFE IN YOUR ENVIRONMENT?YES NEW PATIENT PAIN DIARY TODAY'S VISITNOTES RECREATIONAL DRUG USE DRUG USE?NO EXERCISE: WALKS. LEARNING BARRIERS / SPECIAL NEEDS BARRIERS TO LEARNING?NO HEARING IMPAIRED?NO VISION IMPAIRED?YES WEARS GLASSES :CORRECTIVE LENSES COGNITIVELY IMPAIRED?NO READINESS TO LEARN?YES LEARNING PREFERENCES?NO LEARNING CAPABILITIES PRESENT?YES EMOTIONAL BARRIERS?NO SPECIAL DEVICES?YES :CANE, WALKER OVEREDGE SEWER NEEDED?NO PAIN CLINIC PFS, CLERGY, PUBLIC HEALTH REFERRALS PFS REFERRAL NEEDED?NO CLERGY REFERRAL NEEDED?NO PUBLIC HEALTH REFERRAL NEEDED?NO WAS THE PROVIDER NOTIFIED OF ANY PERTINENT INFO? N/A HAS THE PATIENT BEEN EDUCATED REGARDING HIS/HER PLAN OF CARE?YES HAS THE PATIENT BEEN EDUCATED REGARDING PAIN, THE RISK FOR PAIN, THE IMPORTANCE OF EFFECTIVE PAIN MANAGEMENT, AND THE PAIN ASSESSMENT PROCESS?YES LATEX QUESTIONNAIRE LATEX ALLERGY : HAVE YOU EVER DEVELOPED ANY TYPE OF REACTION AFTER HANDLING LATEX PRODUCTS SUCH RUBBER GLOVES, CONDOMS, DIAPHRAGMS, BALLOONS, SOCKS, OR UNDERWEAR?NO LATEX ALLERGY : HAVE YOU EVER DEVELOPED ANY TYPE OF REACTION DURING OR AFTER DENTAL APPOINTMENT, VAGINAL/RECTAL EXAMINATION, SURGICAL PROCEDURE, OR ANY OTHER EXPOSURE?NO DATE ASKED : 08/16/2018 LATEX RISK : HAVE YOU EVER HAD ANY DIFFICULTY BREATHING OR HIVES AFTER EATING OR HANDLING ANY FRUITS, OR VEGETABLES; SUCH KIWI, BANANAS, STONE FRUITS, OR CHESTNUTSNO LATEX RISK : DO YOU HAVE A PREVIOUS PERSONAL HISTORY OF MORE THAN NINE SURGERIES, SPINA BIFIDA, OR REPEATED CATHERIZATIONS? NO LATEX RISK : ARE YOU FREQUENTLY EXPOSED TO LATEX PRODUCTS IN YOUR OCCUPATION?NO CAFFEINE CAFFEINE USE?YES HOW OFTEN AND HOW MUCH? 2 BOTTLES [place] DEW/DAY ADVANCE DIRECTIVE ADVANCE DIRECTIVE DISCUSSED WITH PATIENT:YES HCP - ARNULFO TAVERAS [phone] ANGLICAN [id number] NONE MARITAL STATUS: SINGLE. ALCOHOL SCREENING DID YOU HAVE A DRINK CONTAINING ALCOHOL IN THE PAST YEAR?NO POINTS0 INTERPRETATIONNEGATIVE OCCUPATION: DISABLED. REVIEWED WITH PATIENT 01/11/18 0940 02/07/18 0905 REVIEWED WITH PT. AD03/31 18 1505 REVIEWED WITH PT. AD04/21/18 1210 REVIEWED WITH PT LASREVIEWED WITH PATIENT 06/15/18 0844 JSREVIEWED WITH PATIENT 12/22/18 1225 LASREVIEWED WITH PATIENT 08/29/18 1354 JS02/28/19 1453 REVEIWED WITH PT. FLOIEWED WITH PATIENT 07/28/18 1054 JSREVIEWED WITH PT 06/22/18 1432 BV. HOSPITALIZATION/MAJOR DIAGNOSTIC PROCEDURE SURGERIES "FLUID ON LEGS" DEC OR JAN. 2018 REVIEW OF SYSTEMS REVIEWED BY: PROVIDER: . CONSTITUTIONAL: ANY CHANGE IN YOUR MEDICAL CONDITION? NO . CHILLS NO . FEVER NO . INFECTION: DO YOU HAVE NEW INFECTIONS? NO . DO YOU HAVE HISTORY OF MRSA? YES, 2009 IN CSECTION INCISION . MUSCULOSKELETAL: ANY NEW PATTERNS OF PAIN OR NUMBNESS? NO . GASTROENTEROLOGY: ANY NEW CHANGE IN BOWEL CONTROL? NO . GENITOURINARY: ANY NEW CHANGE IN BLADDER CONTROL? NO . IS THERE A CHANCE YOU COULD BE ? NO . HEMATOLOGY/LYMPH: DO YOU TAKE ANY BLOOD THINNERS? (FOR EXAMPLE- COUMADIN, PLAVIX, AGGRENOX, PLATEL, PRADAXA, OR XARELTO) NO . WHEN WAS YOUR LAST DOSE? DATE: TIME: . NEUROLOGY: HAVE YOU FALLEN IN THE PAST 12 MONTHS? YES,SEVERAL TIMES, LEGS JUST GAVE OUT ON HER-NO MAJOR INJURY. WAS HOSPITALIZED FOR A WEEK IN DEC OR JAN FOR FLUID ON LEGS . ANY NEW EXTREMITY NUMBNESS OR WEAKNESS? NO . CARDIOLOGY: DO YOU HAVE A PACEMAKER OR DEFIBRILLATOR? NO . RESPIRATORY: HAVE YOU BEEN SICK IN THE PAST WEEK? NO . FEVER NO . FLU LIKE SYMPTOMS? NO . COUGH NO . INTEGUMENTARY: DO YOU HAVE ANY RASHES OR OPEN SORES? NO . ALLERGIC/IMMUNO: ARE YOU ALLERGIC TO IV DYE? NO . ANY NEW ALLERGIES? NO . PSYCHIATRIC: DO YOU HAVE THOUGHTS OF HURTING YOURSELF OR SOMEONE ELSE? NO . ARE YOU ABUSED, NEGLECTED, OR IN AN UNSAFE ENVIRONMENT? NO . ENDOCRINOLOGY: ARE YOU DIABETIC? YES FSBS 96 @ 1501 . OTHER: DO YOU NEED ANY PRESCRIPTIONS? NO . IF YES, PLEASE LIST: ____ . ANY NEW PROBLEMS WITH YOUR MEDICATIONS? NO . WHEN DID YOU LAST EAT? 02/27 1900 . WHEN DID YOU LAST DRINK? 02/28 1030 . WHAT DID YOU LAST DRINK? WATER . NAME OF PERSON DRIVING YOU HOME? PETER . DO YOU HAVE ANY OTHER QUESTIONS OR CONCERNS NO HAD FLU VACCINE WHILE IN THE HOSPITAL . VITAL SIGNS WT 291.0 LBS, HT 60.5 IN, BMI 55.89 INDEX, BP 130/81 MM HG, HR 89 /MIN, RR 16 /MIN, TEMP 98.1 F, OXYGEN SAT % 99%, NA INITIALS AW 1319, REVIEWED BY: CAMILLE. ASSESSMENTS SPONDYLOSIS WITHOUT MYELOPATHY OR RADICULOPATHY, LUMBAR REGION - M47.816 (PRIMARY) SPONDYLOSIS WITHOUT MYELOPATHY OR RADICULOPATHY, LUMBOSACRAL REGION - M47.817 PROCEDURES PN LUMBAR FACET BLOCK DIAGNOSTIC PRE PROCEDURE DIAGNOSIS LUMBAR SPONDYLOSIS, LUMBOSACRAL SPONDYLOSIS POST PROCEDURE DIAGNOSIS LUMBAR SPONDYLOSIS, LUMBOSACRAL SPONDYLOSIS PROCEDURE LEFT L4-L5 AND LEFT L5-S1 FACET BLOCK DIAGNOSTIC NUMBER [address] AMELIA LAI RESTAURANT SERVER NONE ANESTHESIA LOCAL PRE PROCEDURE NOTE THE PATIENT WITH HISTORY OF CHRONIC LOW BACK PAIN. I EVALUATED THE PATIENT AND REVIEWED THE CHART. I WENT OVER THE RISKS, ALTERNATIVES, AND BENEFITS ASSOCIATED WITH THIS PROCEDURE. THE PATIENT WOULD LIKE TO PROCEED AND GAVE CONSENT TO PERFORM THE PROCEDURE. AGREED WITH THE PATIENT WE ARE DOING THIS PROCEDURE TO DETERMINE IF THE PATIENT IS A CANDIDATE FOR A RADIOFREQUENCY ABLATION OF THE FACETS JOINTS. THE PATIENT DENIES UNEXPLAINABLE WEIGHT LOSS, FEVER, CHILLS, OR NEW CHANGES IN URINARY OR BOWEL CONTROL DESCRIPTION OF PROCEDURE THE PATIENT WAS BROUGHT TO THE PROCEDURE ROOM AND PLACED IN THE PRONE POSITION. THE LUMBOSACRAL AREA WAS CLEANED WITH CHLORAPREP SOLUTION AND DRAPED ASEPTICALLY. THE PROCEDURE WAS DONE UNDER STERILE CONDITIONS. I CHECKED LATERALITY AND THE LEVEL WHERE THE PROCEDURE WAS GOING TO BE PERFORMED WITH THE PATIENT AND THE SUPPORTING STAFF AT THE MOMENT OF THE TIME OUT IN THE PROCEDURE ROOM. UNDER FLUOROSCOPIC GUIDANCE, TARGETS WERE SELECTED AT THE INTERSECTION OF THE LEFT TRANSVERSE PROCESS OF L4, L5 AND ALA OF S1 WITH ITS RESPECTIVE SUPERIOR ARTICULAR PROCESS. LIDOCAINE WAS USED TO NUMB THE SKIN AND THE SUBCUTANEOUS TISSUE BELOW IT. SPINAL NEEDLE, 22-GAUGE WAS ADVANCED UNDER FLUOROSCOPIC GUIDANCE AND FOLLOWING PATIENT FEEDBACK UNTIL THE TARGETS WERE REACHED. POSITION OF THE NEEDLES WAS VERIFIED WITH AP AND LATERAL VIEWS. AFTER PROPER POSITION OF THE NEEDLES WAS ACHIEVED, ISOVUE-M DYE 30% 0.1 ML WAS INJECTED AT EACH SITE SHOWING ADEQUATE SPREAD OF THE DYE. THEN A SOLUTION OF 0.4 ML OF BUPIVACAINE 0.25% WAS INJECTED AT EACH SITE. THERE WAS NO EVIDENCE OF BLOOD, PARESTHESIA OR CEREBROSPINAL FLUID DURING THE PROCEDURE. THE PATIENT WAS SENT TO THE RECOVERY ROOM. THE PATIENT WAS MOVING THE EXTREMITIES AND DOING WELL. THERE WAS NO COMPLICATION DURING THE PROCEDURE. FLUOROSCOPY TIME WAS 20 SECONDS POST PROCEDURE NOTE THE PATIENT WILL DOCUMENT HIS PAIN LEVEL AND RESPONSE TO THIS PROCEDURE EVERY 30 MINUTES. THE PATIENT WILL BE SEEN IN A FOLLOW UP IN THE NEXT FEW WEEKS. FURTHER DETERMINATION FOR HIS CASE WILL BE DONE AT THE NEXT VISIT. INSTRUCTIONS WERE GIVEN, QUESTIONS WERE ANSWERED, AND THE PATIENT EXPRESSED UNDERSTANDING AND AGREED WITH THE PLAN. I, AARON WOLFE, DOCUMENTED THE ABOVE INFORMATION ACTING A SCRIBE FOR DR. LAI. I HAVE REVIEWED THE ABOVE DOCUMENT, WRITTEN BY AARON WOLFE SCRIBManohar AND I VERIFY THAT IT IS ACCURATE. DIAGNOSTIC IMAGING [facility] FACET BLOCK (PAIN)[id number] PROCEDURE CODES 11987 INJ PARAVERT F JNT L/S 1 LEV, [place]: [place] [address] INJ PARAVERT F JNT L/S 2 LEV, MODIFIERS: LT 6045F RADXPS IN END [id number] PXD DISPOSITION & COMMUNICATION FOLLOW UP 3 WEEKS ELECTRONICALLY SIGNED BY AMELIA LAI MD, MD ON 03/07/2019 AT 03:18 PM EST DISCLAIMER : THIS IS A VISIT SUMMARY EXTRACTED FROM THE [employer] CHART. IT IS NOT A COPY OF THE [employer] PROGRESS NOTE. MTDD
== END ==
LOC: M PAIN 13:15
PROVIDERS: ATTEND Anesthesiology
DX: M47.816 Spondylosis without myelopathy or radiculopathy, lumbar region (principal); M47.817 Spondylosis without myelopathy or radiculopathy, lumbosacral region; E11.9 Type 2 diabetes mellitus without complications; I10 Essential (primary) hypertension; E78.00 Pure hypercholesterolemia, unspecified; E66.9 Obesity, unspecified; K21.9 Gastro-esophageal reflux disease without esophagitis; F41.9 Anxiety disorder, unspecified; Z98.84 Bariatric surgery status; F17.210 Nicotine dependence, cigarettes, uncomplicated; Z79.84 Long term (current) use of oral hypoglycemic drugs; Z79.891 Long term (current) use of opiate analgesic; Z79.899 Other long term (current) drug therapy; Z88.2 Allergy status to sulfonamides; Z88.6 Allergy status to analgesic agent; Z68.43 Body mass index [BMI] 50.0-59.9, adult
CPT/HCPCS: 64493; 64494; Q9967

== ENCOUNTER 2019-03-14 09:26 | Outpatient (RCR) | payer OTHER ==
[~2019-03-14 09:26] MED LIST changes: -BUPIVACAINE HCL 0.25% 30 ML VIAL As Ordered ONE; -ISOVUE-M 300 61% 15ML VIAL (Q9967) As Ordered ONE; -LIDOCAINE 1% SDV INJ 30 ML VIAL As Ordered ONE; -SIMV20TA2 PO; +SIMV20TA22 PO
== END 2019-03-18 ==
LOC: M PT 09:26
PROVIDERS: ATTEND Physician Assistant
DX: Z47.89 Encounter for other orthopedic aftercare (principal)

== ENCOUNTER → 2019-03-27 | Outpatient (CLI) | payer OTHER ==
[~2019-03-27] MED LIST changes: +OMEP-172 PO; -OMEP20CA4 PO
--- NOTE | 2019-04-11 04:49 | ECWPNPC ---
PATIENT NAME: STELLA TAVERAS : 1975 GENDER: FEMALE VISIT DATE: 03/27/2019 DISCHARGE DATE: [birth year]/27/1959 VISIT LOCKED DATE TIME: PHYSICIAN: PATRICIA MCNAMARA RESOURCE: PATRICIA MCNAMARA REASON FOR APPOINTMENT 1. POST PROC HISTORY OF PRESENT ILLNESS HISTORY OF PRESENT ILLNESS: HERE FOR POST PROCEDURE F/U.HAD LEFT LFBDX #2 ON 02/28/19.HAS BEEN PRETTY GOOD IN THIS AREA OVER THE PAST MONTH SINCE PROCEDURE.IS EXPERIENCING SEVERE RIGHT LOW BACK PAIN OVER THE PAST WEEK.REVIEWED MRI L/S SPINE AND DISCUSSED TREATMENT OPTIONS.RATING PAIN VAS 8/10. PAIN THE PATIENT DESCRIBES THE PAIN... FALL RISK SCREENING: SCREENING :NO FALLS REPORTED IN THE LAST YEAR CURRENT MEDICATIONS TAKING CETIRIZINE HCL 10 MG TABLET ORALLY ONCE A DAY TAKING LOSARTAN POTASSIUM 25 MG TABLET ORALLY DAILY TAKING MONTELUKAST SODIUM 10 MG TABLET 1 TABLET ORALLY ONCE A DAY TAKING DITROPAN XL 10 MG TABLET EXTENDED RELEASE 24 HOUR 1 TABLET ORALLY ONCE A DAY TAKING OMEPRAZOLE 40 MG CAPSULE DELAYED RELEASE 1 CAPSULE ORALLY FOUR TIMES DAILY TAKING VITAMIN B12 500 TABLET 500 MCG ORALLY DAILY TAKING MULTIVITAMIN 1 TABLET CHEWABLE 1 TAB(S) ORALLY DAILY TAKING CALCIUM CITRATE + 630 MG TABLET 2 TABLET WITH MEALS ORALLY TWICE A DAY TAKING LASIX 40 MG TABLET ORALLY DAILY TAKING METFORMIN HCL 1000 MG TABLET 1 TABLET WITH MEALS ORALLY TWICE A DAY TAKING WELLBUTRIN 100 MG TABLET 1 TABLET ORALLY TWICE A DAY TAKING IRON 325 MGS 1 TAB ORAL DAILY TAKING CYMBALTA 90 MG CAPSULE DELAYED RELEASE PARTICLES 1 CAPSULE ORALLY 30MG CAP AND 60 MG CAP DAILY TAKING VITAMIN D 1000 UNIT CAPSULE CAPSULE ORALLY ONCE A DAY TAKING COLACE 100 MG CAPSULE 1 CAPSULE NEEDED ORALLY 3X/DAY TAKING FLONASE 50 MCG/ACT SUSPENSION 1 SPRAY IN EACH NOSTRIL NASALLY ONCE A DAY NEEDED TAKING SUMATRIPTAN SUCCINATE 50 MG TABLET 1 TABLET NEEDED ORALLY DIRECTED TAKING LYRICA 200 MG CAPSULE 1 CAPSULE ORALLY Q8H TID MDD3 TAKING CYCLOBENZAPRINE HCL 10 MG TABLET DIRECTED ORALLY Q8H PRN PAIN #30 TAB SHOULD LAST 30 DAYS TAKING AMITRIPTYLINE HCL 25 MG TABLET 1 TABLET ORALLY ONCE A DAY TAKING GABAPENTIN 800 MG TABLET 1 CAPSULE ORALLY FOR PAIN TID TAKING OXYCODONE HCL 5 MG TABLET 1 TABLET NEEDED ORALLY Q8H PRN MDD3 #50 TAB SHOULD LAST 30 DAYS TAKING MORPHINE SULFATE ER 15 MG TABLET EXTENDED RELEASE 1 TABLET ORALLY EVERY 12 HRS MDD2 NOT-TAKING ABILIFY 5 MG TABLET 1 TABLET ORALLY ONCE A DAY, NOTES: 02/27 2100 NOT-TAKING BUPRENORPHINE HCL 300 MCG FILM 1 FILM TO THE GUM BUCALLY EVERY 12 HRS, NOTES: HAS NOT STARTED YET MEDICATION LIST REVIEWED AND RECONCILED WITH THE PATIENT PAST MEDICAL HISTORY DIABETES HYPERTENSION HYPERCHOLESTEREMIA OBESITY GERD (GASTROESOPHAGEAL REFLUX DISEASE) GASTRIC BYPASS ANXIETY BACK PAIN RIGHT HIP AND KNEE PAIN ALLERGIES SULFA (FOR ALLERGY USE ONLY): RASH - ALLERGY NSAIDS: GASTRIC BYPASS - CONTRAINDICATION SURGICAL HISTORY GASTRIC BYPASS 06/2015 BILAT CARPAL TUNNEL C SECTION CHOLECYSTECTOMY TONSILLECTOMY & ADENOIDECTOMY D&C 10/2017 ENDOSCOPY 11/2018 FAMILY HISTORY FATHER: , DIAGNOSED WITH UNSPECIFIED HEART DISEASE MOTHER: ALIVE, DIABETES, HYPERTENSION 2 BROTHER(S) . 1 SON(S) - HEALTHY. 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 AND TO GET PATCHES THROUGH HER PRIMARY COUNSELED THE PATIENT ON SMOKING CESSATION, EDUCATION [id number]/09/2019 HOW MANY CIGARETTES A DAY DO YOU SMOKE?11-20 HOW SOON AFTER YOU WAKE UP DO YOU SMOKE YOUR FIRST CIGARETTE?WITHIN 5 MIN HOW OFTEN DO YOU SMOKE CIGARETTES?EVERY DAY PATIENT COUNSELED ON THE DANGERS OF TOBACCO USE AND URGED TO QUIT:03/27/2019 SMOKING CESSATION INFORMATION GIVEN08/16/2018 PAMPHLET GIVEN 08/16/18 OTHERS AT HOME: CHILD, OTHER NON-RELATIVE. EDUCATION LEVEL OF EDUCATION:NOT FINISHED COLLEGE DIET: REGULAR. LANGUAGE LANGUAGES SPOKEN:VIETNAMESE DOMESTIC VIOLENCE DO YOU FEEL SAFE IN YOUR ENVIRONMENT?YES NEW PATIENT PAIN DIARY TODAY'S VISITNOTES RECREATIONAL DRUG USE DRUG USE?NO EXERCISE: WALKS. LEARNING BARRIERS / SPECIAL NEEDS CHANGE FROM LAST VISIT? 03/13/19 BARRIERS TO LEARNING?NO HEARING IMPAIRED?NO VISION IMPAIRED?YES WEARS GLASSES COGNITIVELY IMPAIRED?NO :CORRECTIVE LENSES READINESS TO LEARN?YES LEARNING PREFERENCES?NO LEARNING CAPABILITIES PRESENT?YES EMOTIONAL BARRIERS?NO SPECIAL DEVICES?YES :CANE, WALKER RN CASE MGR NEEDED?NO PAIN CLINIC PFS, CLERGY, PUBLIC HEALTH REFERRALS PFS REFERRAL NEEDED?NO CLERGY REFERRAL NEEDED?NO PUBLIC HEALTH REFERRAL NEEDED?NO WAS THE PROVIDER NOTIFIED OF ANY PERTINENT INFO? N/A HAS THE PATIENT BEEN EDUCATED REGARDING HIS/HER PLAN OF CARE?YES HAS THE PATIENT BEEN EDUCATED REGARDING PAIN, THE RISK FOR PAIN, THE IMPORTANCE OF EFFECTIVE PAIN MANAGEMENT, AND THE PAIN ASSESSMENT PROCESS?YES LATEX QUESTIONNAIRE LATEX ALLERGY : HAVE YOU EVER DEVELOPED ANY TYPE OF REACTION AFTER HANDLING LATEX PRODUCTS SUCH RUBBER GLOVES, CONDOMS, DIAPHRAGMS, BALLOONS, SOCKS, OR UNDERWEAR?NO LATEX ALLERGY : HAVE YOU EVER DEVELOPED ANY TYPE OF REACTION DURING OR AFTER DENTAL APPOINTMENT, VAGINAL/RECTAL EXAMINATION, SURGICAL PROCEDURE, OR ANY OTHER EXPOSURE?NO LATEX RISK : HAVE YOU EVER HAD ANY DIFFICULTY BREATHING OR HIVES AFTER EATING OR HANDLING ANY FRUITS, OR VEGETABLES; SUCH KIWI, BANANAS, STONE FRUITS, OR CHESTNUTSNO LATEX RISK : DO YOU HAVE A PREVIOUS PERSONAL HISTORY OF MORE THAN NINE SURGERIES, SPINA BIFIDA, OR REPEATED CATHERIZATIONS? NO LATEX RISK : ARE YOU FREQUENTLY EXPOSED TO LATEX PRODUCTS IN YOUR OCCUPATION?NO DATE ASKED : 03/13/2019 CAFFEINE CAFFEINE USE?YES HOW OFTEN AND HOW MUCH? 2 BOTTLES [place] DEW/DAY ADVANCE DIRECTIVE ADVANCE DIRECTIVE DISCUSSED WITH PATIENT:YES HCP - ARNULFO TAVERAS [phone] MU-ISM [id number] NONE MARITAL STATUS: SINGLE. ALCOHOL SCREENING DID YOU HAVE A DRINK CONTAINING ALCOHOL IN THE PAST YEAR?NO POINTS0 INTERPRETATIONNEGATIVE OCCUPATION: DISABLED. REVIEWED WITH PATIENT 01/11/18 0940 JS02/07/18 0905 REVIEWED WITH PT. AD03/31 18 1505 REVIEWED WITH PT. AD04/21/18 1210 REVIEWED WITH PT LASREVIEWED WITH PATIENT 06/15/18 0844 JSREVIEWED WITH PATIENT 12/22/18 1225 LASREVIEWED WITH PATIENT 08/29/18 1354 JS02/28/19 1453 REVEIWED WITH PT. ADREVIEWED WITH PATIENT 07/28/18 1054 JSREVIEWED WITH PT 06/22/18 1432 BV REVIEWED WITH PATIENT 03/27/19 0918 JS. HOSPITALIZATION/MAJOR DIAGNOSTIC PROCEDURE SURGERIES "FLUID ON LEGS" DEC OR 2018 REVIEW OF SYSTEMS REVIEWED BY: PROVIDER: PATRICIA ROTHMAN . CONSTITUTIONAL: ANY CHANGE IN YOUR MEDICAL CONDITION? NO . CHILLS NO . FEVER NO . INFECTION: DO YOU HAVE NEW INFECTIONS? NO . DO YOU HAVE HISTORY OF MRSA? YES, HISTORY OF MRSA IN INCISION . MUSCULOSKELETAL: ANY NEW PATTERNS OF PAIN OR NUMBNESS? NO . GASTROENTEROLOGY: ANY NEW CHANGE IN BOWEL CONTROL? NO . GENITOURINARY: ANY NEW CHANGE IN BLADDER CONTROL? NO . IS THERE A CHANCE YOU COULD BE ? NO . HEMATOLOGY/LYMPH: DO YOU TAKE ANY BLOOD THINNERS? (FOR EXAMPLE- COUMADIN, PLAVIX, AGGRENOX, PLATEL, PRADAXA, OR XARELTO) NO . WHEN WAS YOUR LAST DOSE? DATE: TIME: . NEUROLOGY: HAVE YOU FALLEN IN THE PAST 12 MONTHS? YES, STATES PRIOR TO LAST VISIT, DISCUSSED AT PREVIOUS VISIT . ANY NEW EXTREMITY NUMBNESS OR WEAKNESS? NO . CARDIOLOGY: DO YOU HAVE A PACEMAKER OR DEFIBRILLATOR? NO . RESPIRATORY: HAVE YOU BEEN SICK IN THE PAST WEEK? NO . FEVER NO . FLU LIKE SYMPTOMS? NO . COUGH NO . INTEGUMENTARY: DO YOU HAVE ANY RASHES OR OPEN SORES? NO . ALLERGIC/IMMUNO: ARE YOU ALLERGIC TO IV DYE? NO . ANY NEW ALLERGIES? NO . PSYCHIATRIC: DO YOU HAVE THOUGHTS OF HURTING YOURSELF OR SOMEONE ELSE? NO . ARE YOU ABUSED, NEGLECTED, OR IN AN UNSAFE ENVIRONMENT? NO . ENDOCRINOLOGY: ARE YOU DIABETIC? YES . OTHER: DO YOU NEED ANY PRESCRIPTIONS? NO . IF YES, PLEASE LIST: ____ . ANY NEW PROBLEMS WITH YOUR MEDICATIONS? NO . WHEN DID YOU LAST EAT? ____ . WHEN DID YOU LAST DRINK? ____ . WHAT DID YOU LAST DRINK? ____ . NAME OF PERSON DRIVING YOU HOME? ____ . DO YOU HAVE ANY OTHER QUESTIONS OR CONCERNS NO . VITAL SIGNS WT 298.2 LBS, HT 60.5 IN, BMI 57.27 INDEX, BP 112/66 MM HG, HR 94 /MIN, RR 18 /MIN, TEMP 96.2 F, OXYGEN SAT % 98%, SAFE IN ENV? (Y/N) YES, NA INITIALS AW 0900, REVIEWED BY: ROBERTA. EXAMINATION GENERAL EXAMINATION: GENERAL AWAKE,ALERT ,PLEASANT . PSYCH AFFECT NORMAL . LUNGS: LUNG ARORA ARE CLEAR TO AUSCULTATION BILATERALLY. GOOD MOVEMENT OF AIR . HEART: S1, S2 IN A REGULAR RATE AND RHYTHM. NO SIGNIFICANT MURMURS, RUBS OR GALLOPS NOTED . MUSCULOSKELETAL: WEAK OVER RIGHT LEG. FOR BILAT. SIJ PALPATION: + FOR PAIN OVER L/S SPINE. + FOR PAIN OVER L/S PARASPINALS.SPECIFIC POINT TENDERNESS OVER RIGHT L2/3-L3/4 LUMBAR FACET.POSITIVE MODIFIED SLE OVER RIGHT LEG.. NEUROLOGIC EXAM: NORMAL SENSATION LIGHT TOUCH BILAT. LOWER EXTREMITIES. DIAGNOSTIC TESTS REVIEWED MRI L/S SPINE-02/20/19-REVIEWED. ASSESSMENTS INTERVERTEBRAL DISC DISORDER WITH RADICULOPATHY OF LUMBAR REGION - M51.16 (PRIMARY) TREATMENT INTERVERTEBRAL DISC DISORDER WITH RADICULOPATHY OF LUMBAR REGION CONTINUE COLACE CAPSULE, 100 MG, 1 CAPSULE NEEDED, ORALLY, 3X/DAY CONTINUE LYRICA CAPSULE, 200 MG, 1 CAPSULE, ORALLY, Q8H TID MDD3 REFILL OXYCODONE HCL TABLET, 5 MG, 1 TABLET NEEDED, ORALLY, Q8H PRN MDD3 #50 TAB SHOULD LAST 30 DAYS, 30 DAYS, 50, REFILLS 0 REFILL MORPHINE SULFATE ER TABLET EXTENDED RELEASE, 15 MG, 1 TABLET, ORALLY, EVERY 12 HRS MDD2, 30 DAYS, 60, REFILLS 0 NOTES: RIGHT L4/5 LESI W CATH, ISTOP REGISTRY REVIEWED AND DEMONSTRATES COMPLLIANCE. BRINGS IN MEDICATIONS WHICH IS APPROPRIATE FOR WHAT WAS DISPENSED. RECENT URINE TOXICOLOGY REVIEWED. SHOWING LOW AMOUNTS OF MARIJUANA.COUNSELED PATIENT AND INFORMED HER WE WOULD NOT BE ABLE TO PRESCRIBE NARCOTOC MEDICATIONS IF MARIJUANA IS PRESENT IN FUTURE UTOX READINGS. PRESCRIBED MEDICATIONS WERE PRESENT. , RISKS OF NARCOTIC/OPIOD MEDICATIONS INCLUDES BUT IS NOT LIMITED TO RISK OF DEPENDANCE/DEVELOPMENT OF ADDICTION, MOOD DISTURBANCE AND DEPRESSION, OSTEOPOROSIS, HORMONAL AND LABIDAL CHANGES, RESPIRATORY DEPRESSION AND . PATIENT IS ADVISED NOT TO DRIVE OR DRINK ALCOHOL WHILE ON THESE MEDICATIONS. PREVENTIVE MEDICINE PAIN CLINIC TEACHING: PROCEDURE TEACHING REVIEWED INFORMATION ON LUMBAR EPIDURAL STEROID INJECTION WITH CATHETER PROCEDURE WITH PATIENT. ALSO REVIEWED PRE-PROCEDURE INSTRUCTIONS. PATIENT VERBALIZED AN UNDERSTANDING. ERIKA PEDERSON 03/27/2019 1:39:06 PM > . PROCEDURE CODES FA211 ESTABILISHED PATIENT [facility] CHARGE DISPOSITION & COMMUNICATION FOLLOW UP POST (REASON: RIGHT L4/5 LESI W CATH) ELECTRONICALLY SIGNED BY STEPHAN DRAKE ON 04/10/2019 AT 03:17 PM EST DISCLAIMER : THIS IS A VISIT SUMMARY EXTRACTED FROM THE [employer] CHART. IT IS NOT A COPY OF THE [employer] PROGRESS NOTE. MTDD
== END ==
LOC: M PAIN 09:00
PROVIDERS: ATTEND Nurse Practitioner Family
DX: M51.16 Intervertebral disc disorders with radiculopathy, lumbar region (principal); E11.9 Type 2 diabetes mellitus without complications; I10 Essential (primary) hypertension; E78.00 Pure hypercholesterolemia, unspecified; K21.9 Gastro-esophageal reflux disease without esophagitis; Z86.59 Personal history of other mental and behavioral disorders; Z98.84 Bariatric surgery status; F17.210 Nicotine dependence, cigarettes, uncomplicated; Z88.2 Allergy status to sulfonamides; Z88.6 Allergy status to analgesic agent; Z86.14 Personal history of Methicillin resistant Staphylococcus aureus infection; E66.01 Morbid (severe) obesity due to excess calories; Z68.43 Body mass index [BMI] 50.0-59.9, adult; Z79.84 Long term (current) use of oral hypoglycemic drugs; Z79.891 Long term (current) use of opiate analgesic; Z79.899 Other long term (current) drug therapy

== ENCOUNTER 2019-04-06 09:30 | Outpatient (RCR) | payer OTHER | END 2019-04-18 | LOC: M PT 09:30 | PROVIDERS: ATTEND Physician Assistant | DX: Z51.89 Encounter for other specified aftercare (principal); M70.62 Trochanteric bursitis, left hip; M70.61 Trochanteric bursitis, right hip ==

== ENCOUNTER → 2019-04-30 | Outpatient (REF) | payer OTHER ==
[~2019-04-30] MED LIST changes: -FENO145T13 PO; +FENO145T7 PO; -OMEP-172 PO; +OMEP1CAP73 PO
[2019-04-30 21:27] LABS: URINE PREG TEST NEGATIVE (NEGATIVE)
[2019-04-30 21:31] LABS: APPEARANCE, URINE CLOUDY (CLEAR); BACTERIA, URINE AUTO NEGATIVE (NEGATIVE); BILIRUBIN, URINE AUTO NEGATIVE (NEGATIVE); BLOOD, URINE BLOOD NEGATIVE (NEGATIVE); CALCIUM OXALATE CRYSTALS LARGE; COLOR, URINE YELLOW (YELLOW); GLUCOSE, URINE (UA) AUTO NEGATIVE (NEGATIVE); KETONE, URINE AUTO NEGATIVE (NEGATIVE); LEUKOCYTE ESTERASE, URINE AUTO TRACE (NEGATIVE); MUCUS, URINE SMALL (NEGATIVE); NITRITE, URINE AUTO NEGATIVE (NEGATIVE); PROTEIN, URINE AUTO NEGATIVE (NEGATIVE); RBC, URINE AUTO 1 /HPF (0-3); SPECIFIC GRAVITY URINE AUTO 1.014 (1.002-1.035); SQUAMOUS EPITHELIAL CELL UR AU 2 /HPF (0-6); UROBILINOGEN, URINE AUTO 0.2 mg/dL (0.0-2.0); WBC, URINE AUTO 8 /HPF (0-3)
== END ==
LOC: M LAB REF 21:13
PROVIDERS: ATTEND Physician Assistant Medical
DX: R30.0 Dysuria (principal)

== ENCOUNTER → 2019-05-10 | Outpatient (CLI) | payer OTHER ==
[~2019-05-10] MED LIST changes: +CEFD1CAP8 PO; +D 50CAP3 PO; +DULO1CAP6 PO; -FLUTISP NARES; +ISOVUE-M 300 61% 15ML VIAL (Q9967) As Ordered ONE; +LIDOCAINE 1% SDV INJ 30 ML VIAL As Ordered ONE; +MORP-69; +diazePAM 5 MG TAB As Ordered ONE; +diphenhydrAMINE 25 MG CAP As Ordered ONE; +methylPREDNISolone SUSP 40 MG/ML (DEPO-medrol) VIAL (J1030) As Ordered ONE; +oxyCODONE 5MG TAB As Ordered ONE
--- NOTE | 2019-05-10 15:34 | REP ---
Partial lumbar spine series: Three views . History: Injection procedure for pain. 22 seconds of fluoroscopy time is reported. Findings: A sequence of three fluoroscopically obtained last image hold procedural spot radiographs of the lumbar spine document needle position and contrast injection associated with injection procedure. Electronically Signed by Biju Bui MD 05/10/2019 03:25 P
--- NOTE | 2019-05-24 03:44 | ECWPNPC ---
PATIENT NAME: STELLA TAVERAS : 1975 GENDER: FEMALE VISIT DATE: 05/10/2019 DISCHARGE DATE: 05/10/19 1122 VISIT LOCKED DATE TIME: PHYSICIAN: AMELIA LAI MD RESOURCE: AMELIA LAI MD REASON FOR APPOINTMENT 1. RIGHT L4/5 LESI HISTORY OF PRESENT ILLNESS HISTORY OF PRESENT ILLNESS: PAIN THE PATIENT DESCRIBES THE PAIN... FALL RISK SCREENING: SCREENING :NO FALLS REPORTED IN THE LAST YEAR CURRENT MEDICATIONS TAKING WELLBUTRIN 100 MG TABLET 1 TABLET ORALLY TWICE A DAY, NOTES: 05-10-19699 TAKING IRON 325 MGS 1 TAB ORAL DAILY, NOTES: 05-09-192099 TAKING CYMBALTA 90 MG CAPSULE DELAYED RELEASE PARTICLES 1 CAPSULE ORALLY 30MG CAP AND 60 MG CAP DAILY, NOTES: 04-20-192199 TAKING VITAMIN D 1000 UNIT CAPSULE CAPSULE ORALLY ONCE A DAY, NOTES: 05-10-192199 TAKING FLONASE 50 MCG/ACT SUSPENSION 1 SPRAY IN EACH NOSTRIL NASALLY ONCE A DAY NEEDED, NOTES: NOT LATELY TAKING SUMATRIPTAN SUCCINATE 50 MG TABLET 1 TABLET NEEDED ORALLY DIRECTED, NOTES: NOT LATELY TAKING CYCLOBENZAPRINE HCL 10 MG TABLET DIRECTED ORALLY Q8H PRN PAIN #30 TAB SHOULD LAST 30 DAYS, NOTES: 2 DAYS AGO TAKING AMITRIPTYLINE HCL 25 MG TABLET 1 TABLET ORALLY ONCE A DAY, NOTES: 05-10-192199 TAKING GABAPENTIN 800 MG TABLET 1 CAPSULE ORALLY FOR PAIN TID, NOTES: 05-10-19699 TAKING COLACE 100 MG CAPSULE 1 CAPSULE NEEDED ORALLY 3X/DAY, NOTES: 05-10-19699 TAKING LYRICA 200 MG CAPSULE 1 CAPSULE ORALLY Q8H TID MDD3, NOTES: 05-09-192199 TAKING OXYCODONE HCL 5 MG TABLET 1 TABLET NEEDED ORALLY Q8H PRN MDD3 #50 TAB SHOULD LAST 30 DAYS, NOTES: 3 DAYS AG TAKING MORPHINE SULFATE ER 15 MG TABLET EXTENDED RELEASE 1 TABLET ORALLY EVERY 12 HRS MDD2, NOTES: 699 NOT-TAKING ABILIFY 5 MG TABLET 1 TABLET ORALLY ONCE A DAY, NOTES: 02/27 2100 NOT-TAKING BUPRENORPHINE HCL 300 MCG FILM 1 FILM TO THE GUM BUCALLY EVERY 12 HRS, NOTES: HAS NOT STARTED YET UNKNOWN CETIRIZINE HCL 10 MG TABLET ORALLY ONCE A DAY UNKNOWN LOSARTAN POTASSIUM 25 MG TABLET ORALLY DAILY UNKNOWN MONTELUKAST SODIUM 10 MG TABLET 1 TABLET ORALLY ONCE A DAY UNKNOWN DITROPAN XL 10 MG TABLET EXTENDED RELEASE 24 HOUR 1 TABLET ORALLY ONCE A DAY UNKNOWN OMEPRAZOLE 40 MG CAPSULE DELAYED RELEASE 1 CAPSULE ORALLY FOUR TIMES DAILY UNKNOWN VITAMIN B12 500 TABLET 500 MCG ORALLY DAILY UNKNOWN MULTIVITAMIN 1 TABLET CHEWABLE 1 TAB(S) ORALLY DAILY UNKNOWN CALCIUM CITRATE + 630 MG TABLET 2 TABLET WITH MEALS ORALLY TWICE A DAY UNKNOWN LASIX 40 MG TABLET ORALLY DAILY UNKNOWN METFORMIN HCL 1000 MG TABLET 1 TABLET WITH MEALS ORALLY TWICE A DAY MEDICATION LIST REVIEWED AND RECONCILED WITH THE PATIENT PAST MEDICAL HISTORY DIABETES HYPERTENSION HYPERCHOLESTEREMIA OBESITY GERD (GASTROESOPHAGEAL REFLUX DISEASE) GASTRIC BYPASS ANXIETY BACK PAIN RIGHT HIP AND KNEE PAIN ALLERGIES SULFA (FOR ALLERGY USE ONLY): RASH - ALLERGY NSAIDS: GASTRIC BYPASS - CONTRAINDICATION SURGICAL HISTORY GASTRIC BYPASS 06/2015 BILAT CARPAL TUNNEL C SECTION CHOLECYSTECTOMY TONSILLECTOMY & ADENOIDECTOMY D&C 10/2017 ENDOSCOPY 11/2018 FAMILY HISTORY FATHER: , DIAGNOSED WITH UNSPECIFIED HEART DISEASE MOTHER: ALIVE, DIABETES, HYPERTENSION 2 BROTHER(S) . 1 SON(S) - HEALTHY. 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 SOCIAL HISTORY GENERAL: TOBACCO USE ARE YOU A:CURRENT SMOKER HOW OFTEN DO YOU SMOKE CIGARETTES?EVERY DAY HOW SOON AFTER YOU WAKE UP DO YOU SMOKE YOUR FIRST CIGARETTE?WITHIN 5 MIN HOW MANY CIGARETTES A DAY DO YOU SMOKE?11-20 ARE YOU INTERESTED IN QUITTING?THINKING ABOUT QUITTING WAITING FOR CLASS TO START AGAIN AND TO GET PATCHES THROUGH HER PRIMARY PATIENT COUNSELED ON THE DANGERS OF TOBACCO USE AND URGED TO QUIT:03/27/2019 COUNSELED THE PATIENT ON SMOKING CESSATION, EDUCATION ATCUADMO95/09/2019 SMOKING CESSATION INFORMATION GIVEN08/16/2018 PAMPHLET GIVEN 08/16/18 OTHERS AT HOME: CHILD, OTHER NON-RELATIVE. EDUCATION LEVEL OF EDUCATION:NOT FINISHED COLLEGE DIET: REGULAR. LANGUAGE LANGUAGES SPOKEN:TELUGU DOMESTIC VIOLENCE DO YOU FEEL SAFE IN YOUR ENVIRONMENT?YES NEW PATIENT PAIN DIARY TODAY'S VISITNOTES RECREATIONAL DRUG USE DRUG USE?NO EXERCISE: WALKS. LEARNING BARRIERS / SPECIAL NEEDS CHANGE FROM LAST VISIT? 03/13/19 BARRIERS TO LEARNING?NO HEARING IMPAIRED?NO VISION IMPAIRED?YES WEARS GLASSES COGNITIVELY IMPAIRED?NO :CORRECTIVE LENSES READINESS TO LEARN?YES LEARNING PREFERENCES?NO LEARNING CAPABILITIES PRESENT?YES EMOTIONAL BARRIERS?NO SPECIAL DEVICES?YES :CANE, WALKER UTILIZATION REVIEW COORDINATOR NEEDED?NO PAIN CLINIC PFS, CLERGY, PUBLIC HEALTH REFERRALS PFS REFERRAL NEEDED?NO CLERGY REFERRAL NEEDED?NO PUBLIC HEALTH REFERRAL NEEDED?NO WAS THE PROVIDER NOTIFIED OF ANY PERTINENT INFO? N/A HAS THE PATIENT BEEN EDUCATED REGARDING HIS/HER PLAN OF CARE?YES HAS THE PATIENT BEEN EDUCATED REGARDING PAIN, THE RISK FOR PAIN, THE IMPORTANCE OF EFFECTIVE PAIN MANAGEMENT, AND THE PAIN ASSESSMENT PROCESS?YES LATEX QUESTIONNAIRE LATEX ALLERGY : HAVE YOU EVER DEVELOPED ANY TYPE OF REACTION AFTER HANDLING LATEX PRODUCTS SUCH RUBBER GLOVES, CONDOMS, DIAPHRAGMS, BALLOONS, SOCKS, OR UNDERWEAR?NO LATEX ALLERGY : HAVE YOU EVER DEVELOPED ANY TYPE OF REACTION DURING OR AFTER DENTAL APPOINTMENT, VAGINAL/RECTAL EXAMINATION, SURGICAL PROCEDURE, OR ANY OTHER EXPOSURE?NO DATE ASKED : 03/13/2019 LATEX RISK : HAVE YOU EVER HAD ANY DIFFICULTY BREATHING OR HIVES AFTER EATING OR HANDLING ANY FRUITS, OR VEGETABLES; SUCH KIWI, BANANAS, STONE FRUITS, OR CHESTNUTSNO LATEX RISK : DO YOU HAVE A PREVIOUS PERSONAL HISTORY OF MORE THAN NINE SURGERIES, SPINA BIFIDA, OR REPEATED CATHERIZATIONS? NO LATEX RISK : ARE YOU FREQUENTLY EXPOSED TO LATEX PRODUCTS IN YOUR OCCUPATION?NO CAFFEINE CAFFEINE USE?YES HOW OFTEN AND HOW MUCH? 2 BOTTLES [place] DEW/DAY ADVANCE DIRECTIVE ADVANCE DIRECTIVE DISCUSSED WITH PATIENT:YES HCP - ARNULFO TAVERAS [phone] JUDAISM [id number] NONE MARITAL STATUS: SINGLE. ALCOHOL SCREENING DID YOU HAVE A DRINK CONTAINING ALCOHOL IN THE PAST YEAR?NO POINTS0 INTERPRETATIONNEGATIVE OCCUPATION: DISABLED. REVIEWED WITH PATIENT 01/11/18 0940 JS02/07/18 0905 REVIEWED WITH PT. AD03/31 18 1505 REVIEWED WITH PT. AD04/21/18 1210 REVIEWED WITH PT LASREVIEWED WITH PATIENT 06/15/18 0844 JSREVIEWED WITH PATIENT 12/22/18 1225 LASREVIEWED WITH PATIENT 08/29/18 1354 JS02/28/19 1453 REVEIWED WITH PT. ADREVIEWED WITH PATIENT 07/28/18 1054 JSREVIEWED WITH PT 06/22/18 1432 BV REVIEWED WITH PATIENT 03/27/19 0918 JS. HOSPITALIZATION/MAJOR DIAGNOSTIC PROCEDURE SURGERIES "FLUID ON LEGS" DEC OR 2018 REVIEW OF SYSTEMS REVIEWED BY: PROVIDER: . CONSTITUTIONAL: ANY CHANGE IN YOUR MEDICAL CONDITION? NO . CHILLS NO . FEVER NO . INFECTION: DO YOU HAVE NEW INFECTIONS? NO . DO YOU HAVE HISTORY OF MRSA? NO . MUSCULOSKELETAL: ANY NEW PATTERNS OF PAIN OR NUMBNESS? NO . GASTROENTEROLOGY: ANY NEW CHANGE IN BOWEL CONTROL? NO . GENITOURINARY: ANY NEW CHANGE IN BLADDER CONTROL? NO . IS THERE A CHANCE YOU COULD BE ? NO . HEMATOLOGY/LYMPH: DO YOU TAKE ANY BLOOD THINNERS? (FOR EXAMPLE- COUMADIN, PLAVIX, AGGRENOX, PLATEL, PRADAXA, OR XARELTO) NO . WHEN WAS YOUR LAST DOSE? DATE: TIME: . NEUROLOGY: HAVE YOU FALLEN IN THE PAST 12 MONTHS? NO . ANY NEW EXTREMITY NUMBNESS OR WEAKNESS? NO . CARDIOLOGY: DO YOU HAVE A PACEMAKER OR DEFIBRILLATOR? NO . RESPIRATORY: HAVE YOU BEEN SICK IN THE PAST WEEK? NO . FEVER NO . FLU LIKE SYMPTOMS? NO . COUGH NO . INTEGUMENTARY: DO YOU HAVE ANY RASHES OR OPEN SORES? NO . ALLERGIC/IMMUNO: ARE YOU ALLERGIC TO IV DYE? NO . ANY NEW ALLERGIES? NO . PSYCHIATRIC: DO YOU HAVE THOUGHTS OF HURTING YOURSELF OR SOMEONE ELSE? NO . ARE YOU ABUSED, NEGLECTED, OR IN AN UNSAFE ENVIRONMENT? NO . ENDOCRINOLOGY: ARE YOU DIABETIC? NO . OTHER: DO YOU NEED ANY PRESCRIPTIONS? NO . IF YES, PLEASE LIST: ____ . ANY NEW PROBLEMS WITH YOUR MEDICATIONS? NO . WHEN DID YOU LAST EAT? ____1- . WHEN DID YOU LAST DRINK? ____ . WHAT DID YOU LAST DRINK? ____ . NAME OF PERSON DRIVING YOU HOME? ____ . DO YOU HAVE ANY OTHER QUESTIONS OR CONCERNS NO . VITAL SIGNS WT 288.6 LBS, HT 60.5 IN, BMI 55.43 INDEX, BP 141/84 MM HG, HR 90 /MIN, RR 18 /MIN, TEMP 97.5 F, OXYGEN SAT % 99% RA, BLOOD GLUCOSE LEVEL N/A, SAFE IN ENV? (Y/N) YES, REVIEWED BY: KGA. ARIEL CMA. ASSESSMENTS INTERVERTEBRAL DISC DISORDER WITH RADICULOPATHY OF LUMBAR REGION - M51.16 (PRIMARY) TREATMENT INTERVERTEBRAL DISC DISORDER WITH RADICULOPATHY OF LUMBAR REGION [facility] FLUORO GUIDE SPINE INJECTION (PAIN)[id number] PROCEDURES PRE PROCEDURE DIAGNOSIS LUMBAR DISC DISORDER WITH RADICULOPATHY POST PROCEDURE DIAGNOSIS LUMBAR DISC DISORDER WITH RADICULOPATHY PROCEDURE LUMBAR EPIDURAL STEROID INJECTION UNDER FLUOROSCOPIC GUIDANCE SURGEON DR. AMELIA LAI TELEPHONE INSTALLER NONE ANESTHESIA LOCAL PRE PROCEDURE NOTE THE PATIENT HAS A HISTORY OF CHRONIC LOW BACK PAIN. I EVALUATED THE PATIENT AND REVIEWED THE CHART. I WENT OVER THE RISKS, ALTERNATIVES, AND BENEFITS ASSOCIATED WITH THIS PROCEDURE. THE PATIENT WOULD LIKE TO PROCEED AND GIVES CONSENT TO PERFORM THE PROCEDURE. THE PATIENT DENIES UNEXPLAINABLE WEIGHT LOSS, FEVER, CHILLS, OR NEW CHANGES IN URINARY OR BOWEL CONTROL. DESCRIPTION OF PROCEDURE THE PATIENT WAS BROUGHT TO THE PROCEDURE ROOM AND PLACED IN THE PRONE POSITION. THE LUMBOSACRAL AREA WAS CLEANED WITH BETADINE SOLUTION AND DRAPED ASEPTICALLY. THE PROCEDURE WAS DONE UNDER STERILE CONDITIONS. I CHECKED LATERALITY AND THE LEVEL WHERE THE PROCEDURE WAS GOING TO BE PERFORMED WITH THE PATIENT AND THE SUPPORTING STAFF AT THE MOMENT OF THE TIME OUT IN THE PROCEDURE ROOM. UNDER FLUOROSCOPIC GUIDANCE, THE TARGET POINT WAS SELECTED AT THE INTERLAMINAR LEVEL OF L4-L5. LIDOCAINE WAS USED TO NUMB THE SKIN AND THE SUBCUTANEOUS TISSUE BELOW IT. EPIDURAL TUOHY NEEDLE, 17-GAUGE, WAS ADVANCED UNDER FLUOROSCOPIC GUIDANCE AND FOLLOWING PATIENT FEEDBACK UNTIL THE EPIDURAL SPACE WAS REACHED, 7 CM DEEP INTO THE SKIN BY THE LOSS OF RESISTANCE TECHNIQUE. ISOVUE M DYE 30%, 0.25 ML, WAS INJECTED SHOWING ADEQUATE SPREAD OF THE DYE. THEN, A SOLUTION OF 3 ML OF NORMAL SALINE WITH DEPO-MEDROL 60 MG WAS INJECTED SLOWLY FOLLOWING PATIENT FEEDBACK. THERE WAS NO EVIDENCE OF BLOOD, PARESTHESIA OR CEREBROSPINAL FLUID DURING THE PROCEDURE. THE PATIENT WAS SENT TO THE RECOVERY ROOM. THE PATIENT WAS MOVING THE EXTREMITIES AND DOING WELL. THERE WAS NO COMPLICATION DURING THE PROCEDURE. FLUOROSCOPY TIME WAS 22 SECONDS. POST PROCEDURE NOTE THE PATIENT WILL BE SEEN IN A FOLLOW UP IN THE NEXT FEW WEEKS. I AM LOOKING FOR LONG LASTING PAIN RELIEF WITH THIS INJECTION. INSTRUCTIONS WERE GIVEN, QUESTIONS WERE ANSWERED, AND THE PATIENT EXPRESSED UNDERSTANDING AND AGREES WITH THE PLAN. I, AARON WOLFE, DOCUMENTED THE ABOVE INFORMATION ACTING A SCRIBE FOR DR. LAI. I HAVE REVIEWED THE ABOVE DOCUMENT, WRITTEN BY AARON YANES AND I VERIFY THAT IT IS ACCURATE. PROCEDURE CODES 83373 LUMBAR/SACRAL W/ IMAGING 6045F RADXPS IN END [id number] PXD DISPOSITION & COMMUNICATION FOLLOW UP 2 WEEKS ELECTRONICALLY SIGNED BY AMELIA LAI MD, MD ON 05/23/2019 AT 08:55 AM EST DISCLAIMER : THIS IS A VISIT SUMMARY EXTRACTED FROM THE [employer] CHART. IT IS NOT A COPY OF THE [employer] PROGRESS NOTE. MTDD
== END ==
LOC: M PAIN 10:00
PROVIDERS: ATTEND Anesthesiology
DX: M51.16 Intervertebral disc disorders with radiculopathy, lumbar region (principal); E11.9 Type 2 diabetes mellitus without complications; I10 Essential (primary) hypertension; E78.00 Pure hypercholesterolemia, unspecified; Z98.84 Bariatric surgery status; Z86.59 Personal history of other mental and behavioral disorders; F17.210 Nicotine dependence, cigarettes, uncomplicated; Z88.2 Allergy status to sulfonamides; Z88.6 Allergy status to analgesic agent; E66.01 Morbid (severe) obesity due to excess calories; Z68.43 Body mass index [BMI] 50.0-59.9, adult; Z79.891 Long term (current) use of opiate analgesic; Z79.899 Other long term (current) drug therapy
CPT/HCPCS: 62323; J1030; Q9967

== ENCOUNTER 2019-05-14 11:59 | Emergency (ER) | payer OTHER ==
[~2019-05-14] VITALS: Ht 154.9 cm; Wt 131.2 kg
[~2019-05-14 11:59] MED LIST changes: -CEFD1CAP8 PO; -D 50CAP3 PO; -DULO1CAP6 PO; -ISOVUE-M 300 61% 15ML VIAL (Q9967) As Ordered ONE; -LIDOCAINE 1% SDV INJ 30 ML VIAL As Ordered ONE; -MORP-69; -diazePAM 5 MG TAB As Ordered ONE; -diphenhydrAMINE 25 MG CAP As Ordered ONE; -methylPREDNISolone SUSP 40 MG/ML (DEPO-medrol) VIAL (J1030) As Ordered ONE; -oxyCODONE 5MG TAB As Ordered ONE
[2019-05-14] MEDS ORDERED: MORP-69 (12:08)
[2019-05-14] MEDS ORDERED: NS 1,000 ML IV ONE (12:45)
[2019-05-14] MEDS ORDERED: ONDANSETRON 4MG/2ML VIAL (J2405) IV ONE (12:45)
[2019-05-14] MEDS ORDERED: MORPHINE 4 MG/ML 1ML VIAL/SYRINGE (J2270) IV ONE (12:45)
[2019-05-14 13:09] LABS: HEMATOCRIT 45.6 % (36.0-47.0); HEMOGLOBIN 14.7 g/dl (12.0-15.5); MEAN CORPUSCULAR HEMOGLOBIN 30.2 pg (27.0-33.0); MEAN CORPUSCULAR HGB CONC 32.2 g/dl (32.0-36.5); MEAN CORPUSCULAR VOLUME 93.6 fl (80.0-96.0); PLATELET COUNT, AUTOMATED 381 10^3/uL (150-450); RED BLOOD COUNT 4.87 10^6/uL (4.00-5.40)
[2019-05-14 13:10] LABS: WHITE BLOOD COUNT 18.2 10^3/uL (4.0-10.0)
[2019-05-14 13:41] LABS: EOSINOPHILS 4 % (0-3); LYMPHOCYTES 44 % (16-44); MONOCYTES 4 % (0-5); NEUTROPHILS 47 % (28-66)
[2019-05-14 13:42] LABS: ANISOCYTOSIS 1+; PLATELET ESTIMATE NORMAL (NORMAL)
[2019-05-14 14:09] LABS: ALBUMIN 3.5 GM/DL (3.2-5.2); ALT/SGPT 27 U/L (12-78); BILIRUBIN,DIRECT < 0.1 MG/DL (0.0-0.2); BILIRUBIN,TOTAL 0.4 MG/DL (0.2-1.0); HCG, SERUM QUANTITATIVE 9 MIU/ML; LIPASE 60 U/L (73-393); TOTAL PROTEIN 7.4 GM/DL (6.4-8.2)
[2019-05-14] MEDS ORDERED: ISOVUE-370 76% 100ML VIAL (Q9967) As Ordered ONE (16:44)
[2019-05-14 18:36] VITALS: BP 116/72
--- NOTE | 2019-05-15 07:28 | REP ---
LIMITED PELVIC ULTRASOUND: 05/14/2019. CLINICAL HISTORY: Right lower quadrant pain, evaluate for ectopic versus appendicitis or other. WBC 18.2. Temperature 98.5. FINDINGS: Quite limited exam due to body habitus extreme and overlying bowel gas. The right lower quadrant was scanned and no appendix is visualized. There was no rebound tenderness or tenderness with probe pressure. No free fluid. IMPRESSION: 1. Limited ultrasound right lower quadrant. No visualization of the appendix. This absence does not exclude the possibility of appendicitis but there was no rebound tenderness, transducer pressure tenderness, free fluid or visible mass. No significant abnormality in this region on OB ultrasound. Clinical correlation and followup as indicated. Electronically Signed by Cirilo Wadsworth MD 05/15/2019 09:13 A
--- NOTE | 2019-05-15 07:30 | REP ---
FIRST TRIMESTER AND ENDOVAGINAL PROBE OB ULTRASOUND: 05/14/2019. Clinical history: Right lower quadrant pain. Rule out ectopic. The patient states her last menses was in December. HCG level is 9. Technique: Transabdominal and endovaginal probes were utilized. Exam quality is quite limited due to body habitus considerations. Endovaginal probe imaging was also suboptimal due to bowel gas and uterus flexion. Findings: Transabdominal endovaginal probes show uterus to be retroflexed and deviated towards the right. It measures 9.3 x 2.4 x 2.8 cm. Best measurement for endometrium is 2.4 mm. I do not see fluid in the endometrial cavity or mass. In the right adnexa just peripheral to the uterus is a hypoechoic 3.1 x 2 x 2.4 cm focus. Venous flow was seen. A Doppler arterial exam could not be performed. There is no adjacent fluid. In the left adnexal region is another hypoechoic area 3.3 x 2.2 x 2.2 cm, also with some venous flow and most consistent with the left ovary. Impression: 1. Thin endometrium at 2.4 mm with no evidence of a gestational sac or pseudogestational sac. 2. Uterus is retroflexed and deviated towards the right. 3. There appears to be ovarian tissue in both adnexa with venous flow but arterial Doppler tracings could not be obtained, limited exam by body habitus. No torsion. Due to these historical factors though, I have low index of suspicion, but cannot entirely exclude the possibility of an ectopic. Beta HCG followup and possibly ultrasound at clinically appropriate interval may be helpful. Electronically Signed by Cirilo Wadsworth MD 05/15/2019 09:15 A
--- NOTE | 2019-05-15 07:56 | REP ---
CT ABDOMEN PELVIS WITH IV CONTRAST ONLY: 05/14/2019. COMPARISON: CT 06/05/2017; Pelvic and right lower quadrant ultrasound 05/14/2019. CLINICAL HISTORY: Right lower quadrant pain. WBC 18.2, beta hCG 8.0, LMP January 06, 2019. TECHNIQUE: Bolus of 100 mL Isovue 370 and scanning through the abdomen pelvis with coronal and sagittal reconstructions provided. FINDINGS: CT ABDOMEN: Lung bases are clear. Heart not enlarged. There is no pericardial thickening or effusion. I see no hiatal hernia. Gastric stapling evident. Liver is lower density than the spleen and may reflect some fatty infiltration. There is no hepatosplenomegaly, focal hepatic or splenic lesion nor intrahepatic biliary dilatation. Gallbladder is surgically absent. Pancreas without mass, stone, inflammatory change or fluid collection adjacent. Adrenal glands normal. Kidneys with function but no obstruction, hydronephrosis or stone. I see the ureters to the bladder, although the ureter is not dilated on image 128 and 129 axial, image 75 coronal and 76 sagittal there is a 2.5 mm calcification in the pelvis. With the bladder collapsed and empty it does appear to be within the bladder or bladder wall on all three projections and no similar calcification is in this region on the previous CT although there are some vascular and other pelvic calcifications noted. This is just to the right of midline. The left kidney and collecting system are unremarkable. The left ureter also show no dilatation all the way to the bladder. There is no stone or calcification in the left bladder wall or near the UVJ. Small bowel loops are grossly intact. Appendix is seen and retrocecal, unremarkable. There is no perforation or free air in the abdomen or pelvis. Stool and gas are seen in the abdominal portion of the colon from cecum to distal left colon. No ascites. Bone windows show advanced degenerative disc changes. There is disc space narrowing and vacuum phenomenon at most lumbar levels sparing relatively the L5-S1 marginal osteophytes are seen throughout the mid and lower thoracic spine as well. No compression deformity. There is some facet arthropathy without spondylolysis. The visualized ribs are intact. CT PELVIS: A 2.5 mm stone overlies the posterior bladder wall to the right of midline. I suspect it is just inside the bladder. No fluid in the peroneal gutters. No fluid in the cul-de-sac. No adnexal mass. I see no ventral or inguinal hernia nor pathologic sized inguinal adenopathy. No pelvic lymphadenopathy. Ureters anteverted tilted towards the right. Bone windows show the sacrum, SI joints, pelvis, hips and acetabuli with some degenerative changes but no fracture or destructive lesion. IMPRESSION: 1. I do not see pelvic mass, free fluid or abscess. Uterus tilted towards the right. 2. On axial image 128/129, coronal image 75 and sagittal image 76, there is a 2.5 mm calcification which lies over the collapsed bladder posterior wall and I suspect this is a stone just passed into the bladder. However, there is absence of any hydroureter or hydronephrosis on that side. No other calcifications. Nevertheless, the finding cannot be dismissed. 3. Upper abdomen without acute finding. Prior cholecystectomy, gastric bypass. Degenerative changes in the spine. Electronically Signed by Cirilo Wadsworth MD 05/15/2019 09:33 A
== END 2019-05-14 18:44 | disposition home or self-care (01) ==
LOC: M ED 11:59
DX: R10.31 Right lower quadrant pain (principal); D72.829 Elevated white blood cell count, unspecified; N32.89 Other specified disorders of bladder; N85.4 Malposition of uterus; F17.200 Nicotine dependence, unspecified, uncomplicated; M25.78 Osteophyte, vertebrae; Z79.51 Long term (current) use of inhaled steroids; Z79.84 Long term (current) use of oral hypoglycemic drugs; Z79.891 Long term (current) use of opiate analgesic; Z79.899 Other long term (current) drug therapy; Z88.2 Allergy status to sulfonamides; Z88.6 Allergy status to analgesic agent; Z98.84 Bariatric surgery status
CPT/HCPCS: 36415; 74177; 76801; 76817; 80047; 80076; 81001; 83690; 84702; 85025; 96361; 96374; 96375; 99284; J2270; J2405; Q9967

== ENCOUNTER → 2019-05-16 | Outpatient (REF) | payer OTHER ==
[~2019-05-16] MED LIST changes: +D 50CAP3 PO; +DULO1CAP6 PO; +MORP-69
== END ==
LOC: M LAB REF 17:48
PROVIDERS: ATTEND Obstetrics & Gynecology
DX: O36.80X0 Pregnancy with inconclusive fetal viability, not applicable or unspecified (principal)

== ENCOUNTER 2019-05-18 10:12 | Outpatient (RCR) | payer OTHER ==
[~2019-05-18 10:12] MED LIST changes: -D 50CAP3 PO; -DULO1CAP6 PO
[2019-05-18] MEDS ORDERED: OXYC-517 PO (19:24)
[2019-05-19] MEDS ORDERED: D 50CAP3 PO (00:50)
[2019-05-19] MEDS ORDERED: MORP-69 PO (00:50)
[2019-05-19] MEDS ORDERED: DULO1CAP6 PO (00:50)
[2019-05-20] MEDS ORDERED: CEFD1CAP8 PO (09:45)
== END 2019-05-19 ==
LOC: M PT 10:12
PROVIDERS: ATTEND Physician Assistant
DX: Z51.89 Encounter for other specified aftercare (principal); M16.0 Bilateral primary osteoarthritis of hip; M70.61 Trochanteric bursitis, right hip; M70.62 Trochanteric bursitis, left hip

== ENCOUNTER 2019-05-18 17:49 | Inpatient (IN) | payer OTHER ==
[~2019-05-18] VITALS: Ht 152.4 cm; Wt 133.0 kg
[2019-05-18] MEDS ORDERED: ACETAMINOPHEN 500 MG TAB PO ONE (18:00)
[2019-05-18] MEDS ORDERED: OXYC-517 PO (19:24)
[2019-05-18 19:58] LABS: INFLUENZA A AMPLIFICATION NEGATIVE (NEGATIVE); INFLUENZA B AMPLIFICATION NEGATIVE (NEGATIVE)
[2019-05-18] MEDS ORDERED: ONDANSETRON 4MG/2ML VIAL (J2405) IV ONE (20:00)
[2019-05-18 20:51] LABS: HEMATOCRIT 39.4 % (36.0-47.0); MEAN CORPUSCULAR HEMOGLOBIN 30.5 pg (27.0-33.0); MEAN CORPUSCULAR VOLUME 92.5 fl (80.0-96.0); PLATELET COUNT, AUTOMATED 287 10^3/uL (150-450); RED BLOOD COUNT 4.26 10^6/uL (4.00-5.40)
[2019-05-18 20:51] LABS: APPEARANCE, URINE HAZY (CLEAR); BACTERIA, URINE AUTO 3+ (NEGATIVE); BILIRUBIN, URINE AUTO NEGATIVE (NEGATIVE); BLOOD, URINE BLOOD NEGATIVE (NEGATIVE); COLOR, URINE YELLOW (YELLOW); GLUCOSE, URINE (UA) AUTO NEGATIVE (NEGATIVE); KETONE, URINE AUTO NEGATIVE (NEGATIVE); LEUKOCYTE ESTERASE, URINE AUTO TRACE (NEGATIVE); MUCUS, URINE SMALL (NEGATIVE); NITRITE, URINE AUTO POSITIVE (NEGATIVE); PROTEIN, URINE AUTO NEGATIVE (NEGATIVE); RBC, URINE AUTO 7 /HPF (0-3); SPECIFIC GRAVITY URINE AUTO 1.011 (1.002-1.035); SQUAMOUS EPITHELIAL CELL UR AU 0 /HPF (0-6); UROBILINOGEN, URINE AUTO 0.2 mg/dL (0.0-2.0); WBC, URINE AUTO 20 /HPF (0-3)
[2019-05-18 20:54] LABS: VENOUS HCO3 27.1 MEQ/L (23.0-27.0); VENOUS O2 SATURATION 98.8 % (60.0-80.0); VENOUS PARTIAL PRESSURE CO2 32.3 mmHg (38.0-50.0); VENOUS PH 7.542 UNITS (7.330-7.430); VENOUS TOTAL CO2 28.1 MEQ/L (24.0-28.0)
[2019-05-18] MEDS ORDERED: ISOVUE-370 76% 100ML VIAL (Q9967) As Ordered ONE (21:02)
[2019-05-18 21:22] LABS: ATYPICAL LYMPH 2 % (0-5); EOSINOPHILS 2 % (0-3); LYMPHOCYTES 29 % (16-44); METAMYELOCYTES 1 % (0-0); MONOCYTES 6 % (0-5); NEUTROPHILS 59 % (28-66)
[2019-05-18 21:23] LABS: ANISOCYTOSIS 1+; HYPOCHROMASIA 1+; PLATELET ESTIMATE NORMAL (NORMAL)
[2019-05-18 21:24] LABS: ALBUMIN 3.1 GM/DL (3.2-5.2); BILIRUBIN,DIRECT 0.1 MG/DL (0.0-0.2); BILIRUBIN,TOTAL 0.4 MG/DL (0.2-1.0); TEAR DROP CELLS 1+; TOTAL PROTEIN 6.3 GM/DL (6.4-8.2)
--- NOTE | 2019-05-18 23:03 | REPVR ---
PROCEDURE INFORMATION: Exam: CT Abdomen And Pelvis With Contrast Exam date and time: 05/18/2019 10:10 PM Age: 44 years old Clinical indication: Abdominal pain; Generalized; Additional info: General abd pain, fever TECHNIQUE: Imaging protocol: Computed tomography of the abdomen and pelvis with intravenous contrast. Radiation optimization: All CT scans at this facility use at least one of these dose optimization techniques: automated exposure control; mA and/or kV adjustment per patient size (includes targeted exams where dose is matched to clinical indication); or iterative reconstruction. Contrast material: ISOVUE 370; Contrast volume: 100 ml; Contrast route: IV; COMPARISON: CT ABD/PEL W/IV CONTRAST ONLY 05/14/2019 4:43 PM FINDINGS: Liver: The liver is low attenuation indicating hepatic steatosis. Gallbladder and bile ducts: There has been prior cholecystectomy. No biliary duct dilation. Pancreas: Normal. No ductal dilation. Spleen: Normal. No splenomegaly. Adrenals: Normal. No mass. Kidneys and ureters: Small area of cortical hypoenhancement in the lower pole of the right kidney with mild surrounding perinephric and periureteral edema. Mild ureteral enhancement. No hydronephrosis. Left kidney is unremarkable. No urinary tract stones. Stomach and bowel: Changes from prior bariatric surgery are noted. Appendix: No evidence of appendicitis. Intraperitoneal space: Unremarkable. No free air. No significant fluid collection. Vasculature: Unremarkable. No abdominal aortic aneurysm. Lymph nodes: Unremarkable. No enlarged lymph nodes. Bladder: Unremarkable as visualized. Reproductive: There has been prior hysterectomy. Bones/joints: There are advanced degenerative changes in the spine and pelvis. Spinal stenosis at T11-12 and T12-L1. Soft tissues: Unremarkable. IMPRESSION: 1. Right pyelonephritis. 2. Hepatic steatosis. 3. Spinal stenosis at T11-12 and T12-L1. Electronically signed by: Adelfo Galloway On 05/18/2019 23:03:07 PM
[2019-05-19] MEDS ORDERED: cefTRIAXone SOD 1 GM in D5W MINI-BAG PLUS 50 ML IV ONE (00:15)
[2019-05-19] MEDS ORDERED: NS 500 ML IV ONE (00:15)
--- NOTE | 2019-05-19 00:24 | HPEPDOC ---
[facility] Medical History & Physical Date of Admission May 19, 2019 Date of Service: May 19, 2019 Primary Care Physician: A Other Provider Hayden Iverson Attending Physician: ARIANNA LEE MD History and Physical TIME OF SERVICE: 1:59 AM CHIEF COMPLAINT: Malaise HISTORY OF PRESENT ILLNESS: This is a 44 old female who presents complaints of not feeling well. Specifically, she's been feeling lightheaded and dizzy, has had fevers and chills and has noticed that her blood sugars have been labile. She denies having abdominal pain, nausea, vomiting, diarrhea, or coughing. REVIEW OF SYSTEMS: 12 point review of systems negative except as listed in HPI PAST MEDICAL/ SURGICAL HISTORY: Chronic hypertension. NIDDM Dyslipidemia. COPD/asthma Depression Chronic lymphedema. GERD Morbid obesity/Status post Gastric bypass RYAN, noncompliant to CPAP Status post adenoidectomy and tonsillectomy Status post cholecystectomy Status post SOCIAL HISTORY: She smokes FAMILY HISTORY: Hypertension Heart disease. CAD ALLERGIES: Please see below. HOME MEDICATIONS: Please see below. PHYSICAL EXAMINATION: VITAL SIGNS: Please see below. GEN: Obese/ NAD INTEGUMENT: not flushed / capillary refill HEENT: mucus membranes moist and pink CVS: RRR/NMRG LUNGS: lungs are clear to auscultation bilaterally on room air ABDOMEN: Contour (obese) / soft & not tender with palpation MSK/EXTREMITIES: range of motion intact in all 4 extremities / she has CVA tend erness NEURO: CN 2-12 are grossly intact / speech is not dysarthric PSYCH: alert and oriented to person place and time/ able to understand and follow all commands LABORATORY DATA: See below. IMAGING: Chest x-ray there appears to be pulmonary vascular congestion, but the patient has excessive subcutaneous tissue and final read is pending CT abdomen and pelvis " IMPRESSION: 1. Right pyelonephritis. 2. Hepatic steatosis. 3. Spinal stenosis at T11-12 and T12-L1." ASSESSMENT: Ms. Mccray is a 44 yr old female with a past medical history of hypertension, NIDDM, COPD/asthma, depression, and lymphedema who is admitted for management of sepsis secondary to pyelonephritis. PLAN: 1. Sepsis secondary to pyelonephritis Symptoms include CVA tenderness and fever SIRS criteria include Temp >101 / HR >90/ WBC >12 Qsofa score is = 0 = not high risk She received ceftriaxone and IV fluids in the ER Plan: Admit to medical floor/sepsis protocol with lactic acid/continue with IV fluids/ switch to oral levofloxacin tomorrow for 5 days/f/u Ucx, blood Cx and renal function/ Acetaminophen PRN for fever / target MAP 65 to 70 mmHG / f/u Is and Os with target UOP of at least 0.5 ml/kg/H / target serum glucose 140-180 while acutely ill 2. Chronic hypertension Plan: Continue Lasix, and valsartan 3.NIDDM Plan: diabetic diet / f/u accuchecks & A1C / hypoglycemia protocol / sliding scale insulin / hold oral anti-glycemics 4. COPD/asthma Plan: Continue albuterol and montelukast 5. Depression Plan: Continue amitriptyline, duloxetine Aripiprazole and bupropion 6. Chronic lymphedema Plan: Elevate legs/PT consult for lymphedema wraps 7. GERD Plan: Continue omeprazole 8. Morbid obesity She has coexisting sleep apnea & diabetes Despite having gastric bypass her BMI is 57.5 This complicates care 9. Tobacco abuse. Smoking cessation education / nicotine patch DVT PROPHYLAXIS: Lovenox DISPOSITION: Home after more than 2 midnight's stay Vital Signs Vital Signs Date Time Temp Pulse Resp B/P (MAP) Pulse Ox O2 Delivery O2 Flow Rate FiO2 05/18/19 22:58 99.5 90 18 116/57 (76) 98 Room Air Laboratory Data Labs 24H Laboratory Tests 2 05/18/19 19:08: Influenza Type A (RT-PCR) NEGATIVE, Influenza Type B (RT-PCR) NEGATIVE 05/18/19 19:53: Lymphocytes # (Auto) , Monocytes # (Auto) , Nucleated Red Blood Cells % (auto) 0.0, Neutrophils 59, Band Neutrophils 1, Lymphocytes (Manual) 29, Monocytes (Manual) 6H, Eosinophils (Manual) 2, Metamyelocytes 1H, Atypical Lymphocytes 2, Hypochromasia 1+, Anisocytosis 1+, Macrocytosis , Tear Drop Cells 1+, Platelet Estimate NORMAL, Total Bilirubin 0.4, Direct Bilirubin 0.1, Aspartate Amino Transf (AST/SGOT) 9, Alanine Aminotransferase (ALT/SGPT) 22, Alkaline Phosphatase 88, Total Protein 6.3L, Albumin 3.1L, Albumin/Globulin Ratio 0.97L, Lipase 58L, Human Chorionic Gonadotropin, Quant 7 05/18/19 20:10: Urine Color YELLOW, Urine Appearance HAZY, Urine pH 7.0, Urine Specific [place] 1.011, Urine Protein NEGATIVE, Urine Glucose (Auto)(UA) NEGATIVE, Urine Ketones (Auto) NEGATIVE, Urine Blood NEGATIVE, Urine Nitrite POSITIVE, Urine Bilirubin NEGATIVE, Urine Urobilinogen 0.2, Urine Leukocyte Esterase (Auto) TRACEH, Urine WBC (Auto) 20H, Urine RBC (Auto) 7H, Urine Hyaline Casts (Auto) 0, Urine Bacteri a (Auto) 3+H, Urine Squamous Epithelial Cells 0, Urine Mucus (Auto) SMALL, Urine Sperm (Auto) , Blood Gas Bicarbonate Standard 29.0, Venous Blood pH 7.542H, Venous Blood Partial Pressure CO2 32.3L, Venous Blood Partial Pressure O2 131.0H, Venous Blood Total Carbon Dioxide 28.1H, Venous Blood HCO3 27.1H, Venous Blood Oxygen Saturation 98.8H, Venous Blood Base Excess 5.0H 05/18/19 20:36: Bedside Glucose (Misc Panel) 128H 05/18/19 20:39: POC Glucose (Misc Panel) 124H, POC Sodium (Misc Panel) 136, POC Potassium (Misc Panel) 4.1, POC Chloride (Misc Panel) 98, POC Total CO2 (Misc Panel) 27.0, POC Blood Urea Nitrogen (Misc Panel 11, POC Ionized Calcium (Misc Panel) 4.3L, POC Creatinine (Misc Panel) 0.7, POC Hematocrit (Misc Panel) 39.0 CBC/BMP Laboratory Tests 05/18/19 19:53 Microbiology Microbiology 05/18/19 Blood Culture, Received Pending 05/18/19 Blood Culture, Received Pending Home Medications Scheduled Amitriptyline HCl (Amitriptyline HCl) 25 Mg Tab, 25 MG PO QHS Bupropion Hcl (Bupropion HCl Sr) 100 Mg Tab, 100 MG PO BID Cetirizine HCl (Cetirizine HCl) 10 Mg Tab, 10 MG PO QHS Docusate Sodium (Docusate Sodium) 100 Mg Cap, 100 MG PO TID Duloxetine Hcl (Duloxetine HCl) 30 Mg Cap, 30 MG PO QHS 90MG TOTAL Duloxetine Hcl (Duloxetine HCl) 60 Mg Capsule.dr, 60 MG PO QHS 90MG TOTAL Famotidine (Famotidine) 20 Mg Tablet, 20 MG PO BID Ferrous Sulfate (Iron) 325 Mg Tablet, 325 MG PO QPM TAKES AT 1700 Furosemide (Lasix) 40 Mg Tablet, 40 MG PO DAILY Gabapentin (Gabapentin) 800 Mg Tablet, 800 MG PO TID Losartan Potassium (Losartan Potassium) 25 Mg Tab, 25 MG PO DAILY Metformin HCl (Metformin HCl) 1,000 Mg Tablet, 1,000 MG PO BID Misoprostol (Misoprostol) 200 Mcg Tablet, 400 MCG PO BID Montelukast Sodium (Montelukast Sodium) 10 Mg Tab, 10 MG PO DAILY Morphine Sulfate (Morphine Sulfate ER) 15 Mg Tablet.er, 15 MG PO BID Omeprazole (Omeprazole) 20 Mg Capsule.dr, 20 MG PO BID Oxybutynin Chloride (Ditropan Xl) 10 Mg Tab, 10 MG PO DAILY Pramipexole Di-HCl (Mirapex) 0.25 Mg Tablet, 0.25 MG PO BID Pregabalin (Lyrica) 200 Mg Cap, 200 MG PO TID Scheduled PRN Albuterol Sulfate (Ventolin Hfa) 18 Gm Hfa.aer.ad, 2 PUFF INH Q4H PRN for SHORTNESS OF BREATH Cyclobenzaprine HCl (Cyclobenzaprine HCl) 10 Mg Tab, 10 MG PO Q8H PRN for MUSCLE SPASMS Fluticasone Propionate (Fluticasone Propionate) 16 Gm [place].susp, 2 SPRAY NA DAILY PRN for CONGESTION Oxycodone HCl (Oxycodone HCl) 5 Mg Tablet, 5 MG PO Q8H PRN for PAIN Polyvinyl Alcohol (Artificial Tears) 1.4 % [place], 1 DROP OU QID PRN for DRY EYES Miscellaneous Medications Cholecalciferol (Vitamin D3) (Vitamin D3) 125 Mcg Capsule, 125 MCG PO Allergies Coded Allergies: Sulfa (Sulfonamide Antibiotics) (Verified Allergy, Intermediate, rash, 01/24/19) NSAIDS (Non-Steroidal Anti-Inflamma (Verified Adverse Reaction, Intermediate, Due to gastric bypass, 01/24/19) A-FIB/CHADSVASC A-FIB History Current/History of A-Fib/PAF?: No Current PO Anticoag Therapy: No ARIANNA LEE MD May 19, 2019 00:24
[2019-05-19] MEDS ORDERED: MAALOX 30 ML SUSP *UDC PO PRN (00:30)
[2019-05-19] MEDS ORDERED: GLUCAGON FOR INJ 1 MG VIAL (J1610) SC PRN (00:45)
[2019-05-19] MEDS ORDERED: DEXTROSE 50% 50 ML SYRINGE IV PRN (00:45)
[2019-05-19] MEDS ORDERED: GLUCOSE 4 GM CHEW TABLET PO PRN (00:45)
[2019-05-19] MEDS ORDERED: D 50CAP3 PO (00:50)
[2019-05-19] MEDS ORDERED: DULO1CAP6 PO (00:50)
[2019-05-19] MEDS ORDERED: MORP-69 PO (00:50)
--- NOTE | 2019-05-19 00:53 | REP ---
Clinical: Fever and chronic cough . Comparison: 01/29/2019 . Technique: PA and lateral. Findings: The mediastinum and cardiac silhouette are normal. The lung barry are clear and without acute consolidation, effusion, or pneumothorax. The skeletal structures are intact and normal. Impression: 1. No acute cardiopulmonary process. Electronically Signed by Milad Momin MD 05/19/2019 12:44 A
[2019-05-19] MEDS ORDERED: LR 1,000 ML IV SCH (01:00)
[2019-05-19 01:26] LABS: HEMOGLOBIN A1c 6.2 %
[2019-05-19 01:30] VITALS: BP 118/76
[2019-05-19] MEDS: DOCUSATE SODIUM 100 MG CAP PO SCH ×3 (01:56→21:25)
[2019-05-19] MEDS ORDERED: ALBUTEROL 90 MCG/ACT 8GM HFA INHALER INH PRN (04:45)
[2019-05-19] MEDS ORDERED: POLYVINYL ALCOHOL OPHTH SOLN 15 ML(LIQUITEARS) OU PRN (04:45)
[2019-05-19] MEDS ORDERED: CYCLOBENZAPRINE 10 MG TAB PO PRN (04:45)
[2019-05-19] MEDS ORDERED: FLUTICASONE PROP 0.05% NASAL SPRAY 16 GM (FLONASE) PRN (04:45)
[2019-05-19] MEDS ORDERED: oxyCODONE 5MG TAB PO PRN (04:45)
[2019-05-19 05:48] LABS: HEMATOCRIT 39.2 % (36.0-47.0); HEMOGLOBIN 13.1 g/dl (12.0-15.5); MEAN CORPUSCULAR HEMOGLOBIN 30.9 pg (27.0-33.0); MEAN CORPUSCULAR HGB CONC 33.4 g/dl (32.0-36.5); MEAN CORPUSCULAR VOLUME 92.5 fl (80.0-96.0); PLATELET COUNT, AUTOMATED 279 10^3/uL (150-450); RED BLOOD COUNT 4.24 10^6/uL (4.00-5.40); WHITE BLOOD COUNT 16.5 10^3/uL (4.0-10.0)
[2019-05-19 06:00] VITALS: BP 143/84
[2019-05-19] MEDS ORDERED: LevoFLOXacin 750 MG TABLET PO SCH (06:00)
[2019-05-19 06:16] LABS: BLOOD UREA NITROGEN 9 MG/DL (7-18); CALCIUM LEVEL 8.3 MG/DL (8.5-10.1); CARBON DIOXIDE LEVEL 30 MEQ/L (21-32); CHLORIDE LEVEL 105 MEQ/L (98-107); CREATININE FOR GFR 0.72 MG/DL (0.55-1.30); GLOMERULAR FILTRATION RATE > 60.0 (>58); GLUCOSE, FASTING 118 MG/DL (70-100); POTASSIUM SERUM 3.8 MEQ/L (3.5-5.1); SODIUM LEVEL 140 MEQ/L (136-145)
[2019-05-19 06:30] LABS: ATYPICAL LYMPH 4 % (0-5); EOSINOPHILS 1 % (0-3); LYMPHOCYTES 27 % (16-44); MONOCYTES 4 % (0-5); NEUTROPHILS 64 % (28-66); PLATELET ESTIMATE NORMAL (NORMAL)
[2019-05-19] MEDS: ACETAMINOPHEN TAB 650MG DOSE (2X325MG) PO PRN ×2 (07:07→18:45)
[2019-05-19] MEDS ORDERED: PREGABALIN 100 MG CAP (LYRICA) PO SCH (09:00)
[2019-05-19] MEDS: HumaLOG INSULIN (NovoLOG) PER UNIT SC SCH ×3 (10:16→18:47)
[2019-05-19 10:30] VITALS: BP 123/80
[2019-05-19] MEDS: MORPHINE 15 MG SA TAB PO SCH ×2 (10:35→21:24)
[2019-05-19] MEDS: GABAPENTIN 400 MG CAP PO SCH ×3 (10:36→21:25)
[2019-05-19] MEDS: LOSARTAN 25 MG TAB PO SCH (10:36)
[2019-05-19] MEDS: FAMOTIDINE 20 MG TAB PO SCH ×2 (10:36→21:25)
[2019-05-19] MEDS: FUROSEMIDE 40 MG TAB PO SCH (10:36)
[2019-05-19] MEDS: PRAMIPEXOLE 0.25 MG TAB PO SCH ×2 (10:37→21:25)
[2019-05-19] MEDS: oxyBUTYnin *DITROPAN XL* 5 MG TABCR PO SCH (10:37)
[2019-05-19] MEDS: MONTELUKAST 10 MG TAB PO SCH (10:37)
[2019-05-19] MEDS: miSOPROStol 200 MCG TAB (S0191) PO SCH ×2 (10:37→21:25)
[2019-05-19] MEDS: OMEPRAZOLE 20 MG CAP PO SCH ×2 (10:37→21:24)
[2019-05-19] MEDS: buPROPion (WELLBUTRIN SR) 100 MG SR TAB PO SCH ×2 (10:37→21:26)
[2019-05-19] MEDS: NICOTINE 21MG/24HR 1 EA TRANSDERMAL TD SCH (10:38)
[2019-05-19] MEDS: ENOXAPARIN 40 MG/0.4 ML SYRINGE (J1650) SC SCH (10:38)
--- NOTE | 2019-05-19 12:30 | IPNPDOC ---
Text Note Date of Service The patient was seen on 05/19/19. NOTE Subjective: Patient is a 44-year-old female with a PMHx HTN, NIDDM2, DLP, COPD / Asthma, RYAN not compliant with CPAP, Depression, Chronic lymphedema, Morbid obesity s/p Gastric bypass, GERD who presented to the emergency room after reporting that she wasn't feeling well. Reported that she had lightheadedness and dizziness associated with fevers and chills. Emergency room, patient had imaging that was consistent with pyelonephritis. She is admitted to hospitalist service for further evaluation and treatment. Patient was seen and examined at the bedside. Currently patient denies any chest pain. She is breath, palpitations, nausea, vomiting, or diarrhea. . She has reported urinary frequency and her abdominal discomfort has resolved. Objective: Vitals (See below) General: Lying in bed, no acute distress, comfortable, AAOx3 HEENT: NC, AT CVS: RRR, +S1S2 Lungs: Fair air entry b/l, no appreciable wheezing, rhonchi or rales Abdomen: Soft, ND, NT, Morbid obesity Extremities: Chronic non-pitting edema, - Calf tenderness Assessment and plan: Pyelonephritis - Reported abdominal pain initially; has improved significantly - Remains afebrile, hemodynamically stable - Leukocytosis improving; no lactic acidosis - UA abnormal; awaiting urine cultures / blood cultures - c/w Levaquin PO; s/p Ceftriaxone IV x 1 dose in ER (Antibiotic day #2) - Will DC IV fluids HTN - BP is well controlled - Discontinued IV fluids - c/w Furosemide, Losartan NIDDM2 - c/w ISS DLP - Currently not on medications COPD / Asthma - No evidence of exacerbation - c/w inhaled therapy as ordered RYAN - Not compliant with CPAP Depression - c/w Duloxetine, Amitriptyline and Bupropion Chronic back pain / Neuropathy - c/w Flexeril and Gabapentin - Will DC Pregabalin Chronic lymphedema - Unchanged - c/w Leg wraps Morbid obesity s/p Gastric bypass - Complicating medical care GERD - c/w Omeprazole / Famotidine DVT prophylaxis - c/w Lovenox Disposition: - Awaiting urine culture - Will start physical therapy VS,Benjamine, I+O VS, Fishbone, I+O Laboratory Tests 05/18/19 19:53 05/19/19 05:09 Vital Signs Date Time Temp Pulse Resp B/P (MAP) Pulse Ox O2 Delivery O2 Flow Rate FiO2 05/19/19 10:36 123/80 05/19/19 10:35 18 05/19/19 06:00 98.5 77 99 Room Air I&O- Last 24 Hours up to 6 AM 05/19/19 06:00 Intake Total 790 ml Output Total 600 ml Balance 190 ml RICK BROCK MD May 19, 2019 12:30
[2019-05-19] MEDS ORDERED: ONDANSETRON 4MG/2ML VIAL (J2405) IV PRN (13:00)
[2019-05-19] MEDS: cefTRIAXone SOD 1 GM in D5W MINI-BAG PLUS 50 ML IV SCH ×2 (13:40→21:26)
[2019-05-19 14:00] VITALS: BP 112/63
[2019-05-19 17:15] VITALS: BP 130/83
[2019-05-19] MEDS ORDERED: GI COCKTAIL 50ML BTL(HYOSCYAMINE/MAALOX/LIDOCAINE VISCOUS)(1:3:1) PO ONE (17:45)
[2019-05-19 19:22] LABS: CK-MB VALUE MASS < 1.0 NG/ML (<3.6); CPK CREATINE PHOSPHOKINASE 125 U/L (26-192); TROPONIN I < 0.02 NG/ML (< 0.10)
[2019-05-19] MEDS ORDERED: DULoxetine 30 MG CAP (CYMBALTA) PO SCH (21:00)
[2019-05-19] MEDS ORDERED: FERROUS SULFATE 325MG TAB PO SCH (21:00)
[2019-05-19] MEDS ORDERED: AMITRIPTYLINE 25 MG TAB PO SCH (21:00)
[2019-05-19] MEDS ORDERED: CETIRIZINE (ZyrTEC) 10 MG TAB PO SCH (21:00)
[2019-05-19] MEDS ORDERED: HumaLOG INSULIN (NovoLOG) PER UNIT SC SCH (21:00)
[2019-05-19 22:00] VITALS: BP 115/66
[2019-05-19 23:57] LABS: CK-MB VALUE MASS < 1.0 NG/ML (<3.6); CPK CREATINE PHOSPHOKINASE 40 U/L (26-192); TROPONIN I < 0.02 NG/ML (< 0.10)
[2019-05-20 06:00] VITALS: BP 121/65
[2019-05-20 06:11] LABS: HEMATOCRIT 40.8 % (36.0-47.0); HEMOGLOBIN 13.2 g/dl (12.0-15.5); MEAN CORPUSCULAR HGB CONC 32.4 g/dl (32.0-36.5); MEAN CORPUSCULAR VOLUME 92.7 fl (80.0-96.0); PLATELET COUNT, AUTOMATED 255 10^3/uL (150-450); WHITE BLOOD COUNT 15.6 10^3/uL (4.0-10.0)
[2019-05-20 06:33] LABS: BLOOD UREA NITROGEN 12 MG/DL (7-18); CALCIUM LEVEL 8.4 MG/DL (8.5-10.1); CARBON DIOXIDE LEVEL 26 MEQ/L (21-32); CHLORIDE LEVEL 110 MEQ/L (98-107); CK-MB VALUE MASS < 1.0 NG/ML (<3.6); CPK CREATINE PHOSPHOKINASE 34 U/L (26-192); CREATININE FOR GFR 0.77 MG/DL (0.55-1.30); GLOMERULAR FILTRATION RATE > 60.0 (>58); GLUCOSE, FASTING 117 MG/DL (70-100); MB/CK RELATIVE INDEX 2.94 (< OR =4); POTASSIUM SERUM 3.7 MEQ/L (3.5-5.1); SODIUM LEVEL 141 MEQ/L (136-145); TROPONIN I < 0.02 NG/ML (< 0.10)
[2019-05-20] MEDS: NICOTINE 21MG/24HR 1 EA TRANSDERMAL TD SCH (09:00)
[2019-05-20] MEDS: HumaLOG INSULIN (NovoLOG) PER UNIT SC SCH (09:16)
[2019-05-20 09:17] VITALS: BP 120/75
[2019-05-20] MEDS: MONTELUKAST 10 MG TAB PO SCH (09:17)
[2019-05-20] MEDS: FUROSEMIDE 40 MG TAB PO SCH (09:17)
[2019-05-20] MEDS: GABAPENTIN 400 MG CAP PO SCH (09:17)
[2019-05-20] MEDS: FAMOTIDINE 20 MG TAB PO SCH (09:17)
[2019-05-20] MEDS: ENOXAPARIN 40 MG/0.4 ML SYRINGE (J1650) SC SCH (09:17)
[2019-05-20] MEDS: LOSARTAN 25 MG TAB PO SCH (09:17)
[2019-05-20] MEDS: PRAMIPEXOLE 0.25 MG TAB PO SCH (09:18)
[2019-05-20] MEDS: DOCUSATE SODIUM 100 MG CAP PO SCH (09:18)
[2019-05-20] MEDS: buPROPion (WELLBUTRIN SR) 100 MG SR TAB PO SCH (09:18)
[2019-05-20] MEDS: OMEPRAZOLE 20 MG CAP PO SCH (09:18)
[2019-05-20] MEDS: oxyBUTYnin *DITROPAN XL* 5 MG TABCR PO SCH (09:18)
[2019-05-20] MEDS: MORPHINE 15 MG SA TAB PO SCH (09:18)
[2019-05-20] MEDS: miSOPROStol 200 MCG TAB (S0191) PO SCH (09:19)
[2019-05-20] MEDS ORDERED: CEFD1CAP8 PO (09:45)
--- NOTE | 2019-05-20 11:04 | ECGEPIP ---
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
--- NOTE | 2019-05-20 11:34 | DS.PDOC ---
Discharge Summary General Date of Admission May 19, 2019 at 00:17 Date of Discharge 05/20/2019 Discharge Summary PROCEDURES PERFORMED DURING STAY: [None]. ADMITTING DIAGNOSES / DISCHARGE DIAGNOSES: Pyelonephritis HTN NIDDM2 DLP COPD / Asthma RYAN Depression Chronic back pain / Neuropathy Chronic lymphedema Morbid obesity s/p Gastric bypass GERD DVT prophylaxis COMPLICATIONS/CHIEF COMPLAINT: Right sided flank pain with fevers HISTORY OF PRESENT ILLNESS: Patient is a 44-year-old female with a PMHx HTN, NIDDM2, DLP, COPD / Asthma, RYAN not compliant with CPAP, Depression, Chronic lymphedema, Morbid obesity s/p Gastric bypass, GERD who presented to the emergency room after reporting that she wasn't feeling well. Reported that she had lightheadedness and dizziness associated with fevers and chills. Emergency room, patient had imaging that was consistent with pyelonephritis. She is admitted to hospitalist service for further evaluation and treatment. HOSPITAL COURSE: Pyelonephritis - Reported abdominal pain initially; has improved significantly - Remains afebrile, hemodynamically stable - Leukocytosis improving; no lactic acidosis - UA abnormal; awaiting urine cultures / blood cultures - Will c/w Cefdinir PO; s/p Ceftriaxone IV x 1 and Levaquin x 1 dose (Antibiotic day #3) - s/p IV fluids - Cleared PT HTN - BP is well controlled - Discontinued IV fluids - c/w Furosemide, Losartan NIDDM2 - c/w ISS DLP - Currently not on medications COPD / Asthma - No evidence of exacerbation - c/w inhaled therapy as ordered RYAN - Not compliant with CPAP Depression - c/w Duloxetine, Amitriptyline and Bupropion Chronic back pain / Neuropathy - c/w Flexeril and Gabapentin - Stop Pregabalin Chronic lymphedema - Unchanged - c/w Leg wraps Morbid obesity s/p Gastric bypass - Complicating medical care GERD - c/w Omeprazole / Famotidine DVT prophylaxis - c/w Lovenox DISCHARGE MEDICATIONS: Please see below. ALLERGIES: Please see below. PHYSICAL EXAMINATION ON DISCHARGE: Vitals (See below) General: Lying in bed, no acute distress, comfortable, AAOx3 HEENT: NC, AT CVS: +S1S2 Lungs: Air entry remains fair bilaterally without evidence of rhonchi, rales or wheezing Abdomen: Soft without distention or tenderness, although morbidly obese Extremities: Chronic non-pitting edema - leg wraps in place, - Calf tenderness LABORATORY DATA: Please see below. ACTIVITY: [As tolerated]. DISCHARGE PLAN: Follow up with Dr. Crystal Iverson within 7 days Remain compliant with treatment plan and medications Return to the ER if you experience any problems DISPOSITION: Home, Self-Care. DISCHARGE CONDITION: [Stable]. TIME SPENT ON DISCHARGE: 35 minutes Vital Signs/I&Os Vital Signs Date Time Temp Pulse Resp B/P (MAP) Pulse Ox O2 Delivery O2 Flow Rate FiO2 05/20/19 09:18 18 05/20/19 09:17 120/75 05/20/19 06:00 98.9 98 97 05/19/19 22:00 Room Air I&O- Last 24 Hours up to 6 AM 05/20/19 06:00 Intake Total 2385 ml Output Total 3950 ml Balance -1565 ml Laboratory Data Labs 24H Laboratory Tests 2 05/19/19 11:35: Bedside Glucose (Misc Panel) 127H 05/19/19 16:28: Bedside Glucose (Misc Panel) 124H 05/19/19 18:07: Total Creatine Kinase 125, Creatine Kinase MB < 1.0, Creatine Kinase MB Relative Index 0.80, Troponin I < 0.02 05/19/19 19:53: Bedside Glucose (Misc Panel) 174H 05/19/19 23:13: Total Creatine Kinase 40, Creatine Kinase MB < 1.0, Creatine Kinase MB Relative Index 2.50, Troponin I < 0.02 05/20/19 05:58: Total Creatine Kinase 34, Creatine Kinase MB < 1.0, Creatine Kinase MB Relative Index 2.94, Troponin I < 0.02, Nucleated Red Blood Cells % (auto) 0.0, Anion Gap 5L, Glomerular Filtration Rate > 60.0, Calcium Level 8.4L CBC/BMP Laboratory Tests 05/20/19 05:58 FSBS Laboratory Tests Test 05/19/19 11:35 05/19/19 16:28 05/19/19 19:53 Range/Units Bedside Glucose (Misc Panel) 127 124 174 70-105 MG/DL Microbiology Microbiology 05/19/19 Urine Culture - Final, Complete 05/18/19 Blood Culture - Preliminary, Resulted No growth after 24 hours . All specim... 05/18/19 Urine Culture, Received Pending 05/18/19 Blood Culture - Preliminary, Resulted No growth after 24 hours . All specim... Discharge Medications Scheduled Amitriptyline HCl (Amitriptyline HCl) 25 Mg Tab, 25 MG PO QHS, (Reported) Bupropion Hcl (Bupropion HCl Sr) 100 Mg Tab, 100 MG PO BID, (Reported) Cefdinir (Cefdinir) 300 Mg Capsule, 300 MG PO BID Cetirizine HCl (Cetirizine HCl) 10 Mg Tab, 10 MG PO QHS, (Reported) Docusate Sodium (Docusate Sodium) 100 Mg Cap, 100 MG PO TID, (Reported) Duloxetine Hcl (Duloxetine HCl) 30 Mg Cap, 30 MG PO QHS, (Reported) 90MG TOTAL Duloxetine Hcl (Duloxetine HCl) 60 Mg Capsule.dr, 60 MG PO QHS, (Reported) 90MG TOTAL Famotidine (Famotidine) 20 Mg Tablet, 20 MG PO BID, (Reported) Ferrous Sulfate (Iron) 325 Mg Tablet, 325 MG PO QPM, (Reported) TAKES AT 1700 Furosemide (Lasix) 40 Mg Tablet, 40 MG PO DAILY, (Reported) Gabapentin (Gabapentin) 800 Mg Tablet, 800 MG PO TID, (Reported) Losartan Potassium (Losartan Potassium) 25 Mg Tab, 25 MG PO DAILY, (Reported) Metformin HCl (Metformin HCl) 1,000 Mg Tablet, 1,000 MG PO BID, (Reported) Misoprostol (Misoprostol) 200 Mcg Tablet, 400 MCG PO BID, (Reported) Montelukast Sodium (Montelukast Sodium) 10 Mg Tab, 10 MG PO DAILY, (Reported) Morphine Sulfate (Morphine Sulfate ER) 15 Mg Tablet.er, 15 MG PO BID, (Reported) Omeprazole (Omeprazole) 20 Mg Capsule.dr, 20 MG PO BID, (Reported) Oxybutynin Chloride (Ditropan Xl) 10 Mg Tab, 10 MG PO DAILY, (Reported) Pramipexole Di-HCl (Mirapex) 0.25 Mg Tablet, 0.25 MG PO BID, (Reported) Pregabalin (Lyrica) 200 Mg Cap, 200 MG PO TID, (Reported) Scheduled PRN Albuterol Sulfate (Ventolin Hfa) 18 Gm Hfa.aer.ad, 2 PUFF INH Q4H PRN for SHORTNESS OF BREATH, (Reported) Cyclobenzaprine HCl (Cyclobenzaprine HCl) 10 Mg Tab, 10 MG PO Q8H PRN for MUSCLE SPASMS, (Reported) Fluticasone Propionate (Fluticasone Propionate) 16 Gm [place].susp, 2 SPRAY NA DAILY PRN for CONGESTION, (Reported) Oxycodone HCl (Oxycodone HCl) 5 Mg Tablet, 5 MG PO Q8H PRN for PAIN, (Reported) Polyvinyl Alcohol (Artificial Tears) 1.4 % Len[place], 1 DROP OU QID PRN for DRY EYES, (Reported) Miscellaneous Medications Cholecalciferol (Vitamin D3) (Vitamin D3) 125 Mcg Capsule, 125 MCG PO, (Reported) Allergies Coded Allergies: Sulfa (Sulfonamide Antibiotics) (Verified Allergy, Intermediate, rash, 01/24/19) NSAIDS (Non-Steroidal Anti-Inflamma (Verified Adverse Reaction, Intermediate, Due to gastric bypass, 01/24/19) RICK BROCK MD May 20, 2019 11:34
== END 2019-05-20 11:04 | disposition home or self-care (01) | DRG 463 ==
LOC: M ED 17:49 → M ED INP 05-19 00:17 → ENRESERV 05-19 00:53 → M MSPAV 05-19 01:30
PROVIDERS: ADMIT Internal Medicine; ATTEND Internal Medicine
DX: N12 Tubulo-interstitial nephritis, not specified as acute or chronic (principal); Z68.43 Body mass index [BMI] 50.0-59.9, adult; I10 Essential (primary) hypertension; E66.01 Morbid (severe) obesity due to excess calories; E11.40 Type 2 diabetes mellitus with diabetic neuropathy, unspecified; E78.5 Hyperlipidemia, unspecified; J44.9 Chronic obstructive pulmonary disease, unspecified; F32.9 Major depressive disorder, single episode, unspecified; I89.0 Lymphedema, not elsewhere classified; K21.9 Gastro-esophageal reflux disease without esophagitis; Z98.84 Bariatric surgery status; G47.33 Obstructive sleep apnea (adult) (pediatric); Z91.19 Patient's noncompliance with other medical treatment and regimen; Z90.49 Acquired absence of other specified parts of digestive tract; F17.200 Nicotine dependence, unspecified, uncomplicated; Z79.899 Other long term (current) drug therapy; Z88.2 Allergy status to sulfonamides; Z88.8 Allergy status to other drugs, medicaments and biological substances; G89.29 Other chronic pain; M54.9 Dorsalgia, unspecified; D72.829 Elevated white blood cell count, unspecified

== ENCOUNTER → 2019-05-23 | Outpatient (REF) | payer OTHER ==
[~2019-05-23] MED LIST changes: +CEFD1CAP8 PO; +D 50CAP3 PO; +DULO1CAP6 PO
== END ==
LOC: M LAB REF 17:30
PROVIDERS: ATTEND Obstetrics & Gynecology
DX: O02.1 Missed abortion (principal)

== ENCOUNTER → 2019-05-24 | Outpatient (CLI) | payer OTHER ==
[~2019-05-24] MED LIST changes: -ARTIDRO2 OU; -MONT10TA2 PO; +MONT10TA4 PO; +POLYOPD OU
--- NOTE | 2019-06-07 05:01 | ECWPNPC ---
PATIENT NAME: STELLA TAVERAS : 1975 GENDER: FEMALE VISIT DATE: 05/24/2019 DISCHARGE DATE: 05/24/19 1048 VISIT LOCKED DATE TIME: PHYSICIAN: PATRICIA MCNAMARA RESOURCE: PATRICIA MCNAMARA REASON FOR APPOINTMENT 1. POST PROCEDURE HISTORY OF PRESENT ILLNESS HISTORY OF PRESENT ILLNESS: HERE FOR POST PROCEDURE FOLLOW-UP. HAD LESI L4-5 ON 05/10/2019. FEELS IT MAY HAVE BEEN HELPFUL BUT DEVELOPED KIDNEY INFECTION A FEW DAYS AFTER INJECTION AND WAS HOSPITALIZED. CONTINUES ON ANTIBIOTIC. CONTINUES WITH COMPLAINTS OF LOW BACK PAIN. RATING PAIN INTENSITY 7/10 VAS. CURRENTLY USING MORPHINE 15 MG EXTENDED RELEASE TWICE A DAY AND OXYCODONE 5 MG, MAXIMUM OF 50 TABLETS PER 30 DAY SUPPLY. FINDINGS MEDICATION SOMEWHAT HELPFUL AT REDUCING PAIN. DENIES SIDE EFFECTS. HAS TRIALED BUTRANS PATCH AND CAUSED SIDE EFFECTS. PAIN THE PATIENT DESCRIBES THE PAIN... FALL RISK SCREENING: SCREENING :NO FALLS REPORTED IN THE LAST YEAR CURRENT MEDICATIONS TAKING WELLBUTRIN 100 MG TABLET 1 TABLET ORALLY TWICE A DAY TAKING IRON 325 MGS 1 TAB ORAL DAILY TAKING CYMBALTA 90 MG CAPSULE DELAYED RELEASE PARTICLES 1 CAPSULE ORALLY 30MG CAP AND 60 MG CAP DAILY TAKING VITAMIN D 1000 UNIT CAPSULE CAPSULE ORALLY ONCE A DAY TAKING FLONASE 50 MCG/ACT SUSPENSION 1 SPRAY IN EACH NOSTRIL NASALLY ONCE A DAY NEEDED TAKING SUMATRIPTAN SUCCINATE 50 MG TABLET 1 TABLET NEEDED ORALLY DIRECTED TAKING CYCLOBENZAPRINE HCL 10 MG TABLET DIRECTED ORALLY Q8H PRN PAIN #30 TAB SHOULD LAST 30 DAYS TAKING AMITRIPTYLINE HCL 25 MG TABLET 1 TABLET ORALLY ONCE A DAY TAKING GABAPENTIN 800 MG TABLET 1 CAPSULE ORALLY FOR PAIN TID TAKING COLACE 100 MG CAPSULE 1 CAPSULE NEEDED ORALLY 3X/DAY TAKING LYRICA 200 MG CAPSULE 1 CAPSULE ORALLY Q8H TID MDD3 TAKING MORPHINE SULFATE ER 15 MG TABLET EXTENDED RELEASE 1 TABLET ORALLY EVERY 12 HRS MDD2 TAKING OXYCODONE HCL 5 MG TABLET 1 TABLET NEEDED ORALLY Q8H PRN MDD3 #50 TAB SHOULD LAST 30 DAYS TAKING SPIRONOLACTONE 25 MG TABLET 1 TABLET ORALLY DAILY TAKING MISOPROSTOL 200 MCG TABLET 1 TABLET WITH MEALS AND AT BEDTIME ORALLY FOUR TIMES A DAY TAKING FAMOTIDINE 20 MG TABLET DISINTEGRATING DIRECTED ORALLY BID TAKING PRAMIPEXOLE DIHYDROCHLORIDE 0.25 MG TABLET 1 TABLET ORALLY BID TAKING SUCRALFATE 1 GM TABLET 1 TABLET ON AN EMPTY STOMACH ORALLY FOUR TIMES DAILY TAKING CETIRIZINE HCL 10 MG TABLET ORALLY ONCE A DAY TAKING LOSARTAN POTASSIUM 25 MG TABLET ORALLY DAILY TAKING MONTELUKAST SODIUM 10 MG TABLET 1 TABLET ORALLY ONCE A DAY TAKING DITROPAN XL 10 MG TABLET EXTENDED RELEASE 24 HOUR 1 TABLET ORALLY ONCE A DAY TAKING OMEPRAZOLE 40 MG CAPSULE DELAYED RELEASE 1 CAPSULE ORALLY FOUR TIMES DAILY TAKING VITAMIN B12 500 TABLET 500 MCG ORALLY DAILY TAKING MULTIVITAMIN 1 TABLET CHEWABLE 1 TAB(S) ORALLY DAILY TAKING CALCIUM CITRATE + 630 MG TABLET 2 TABLET WITH MEALS ORALLY TWICE A DAY TAKING LASIX 40 MG TABLET ORALLY DAILY TAKING METFORMIN HCL 1000 MG TABLET 1 TABLET WITH MEALS ORALLY TWICE A DAY NOT-TAKING ABILIFY 5 MG TABLET 1 TABLET ORALLY ONCE A DAY NOT-TAKING BUPRENORPHINE HCL 300 MCG FILM 1 FILM TO THE GUM BUCALLY EVERY 12 HRS, NOTES: HAS NOT STARTED YET MEDICATION LIST REVIEWED AND RECONCILED WITH THE PATIENT PAST MEDICAL HISTORY DIABETES HYPERTENSION HYPERCHOLESTEREMIA OBESITY GERD (GASTROESOPHAGEAL REFLUX DISEASE) GASTRIC BYPASS ANXIETY BACK PAIN RIGHT HIP AND KNEE PAIN ALLERGIES SULFA (FOR ALLERGY USE ONLY): RASH - ALLERGY NSAIDS: GASTRIC BYPASS - CONTRAINDICATION SURGICAL HISTORY GASTRIC BYPASS 06/2015 BILAT CARPAL TUNNEL C SECTION CHOLECYSTECTOMY TONSILLECTOMY & ADENOIDECTOMY D&C 10/2017 ENDOSCOPY 11/2018 FAMILY HISTORY FATHER: , DIAGNOSED WITH UNSPECIFIED HEART DISEASE MOTHER: ALIVE, DIABETES, HYPERTENSION 2 BROTHER(S) . 1 SON(S) - HEALTHY. 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 EDUCATION LEVEL OF EDUCATION:NOT FINISHED COLLEGE DIET: REGULAR. LANGUAGE LANGUAGES SPOKEN:LIBYAN DOMESTIC VIOLENCE DO YOU FEEL SAFE IN YOUR ENVIRONMENT?YES NEW PATIENT PAIN DIARY TODAY'S VISITNOTES RECREATIONAL DRUG USE DRUG USE?NO EXERCISE: WALKS. LEARNING BARRIERS / SPECIAL NEEDS CHANGE FROM LAST VISIT? 03/13/19 BARRIERS TO LEARNING?NO HEARING IMPAIRED?NO VISION IMPAIRED?YES WEARS GLASSES COGNITIVELY IMPAIRED?NO :CORRECTIVE LENSES READINESS TO LEARN?YES LEARNING PREFERENCES?NO LEARNING CAPABILITIES PRESENT?YES EMOTIONAL BARRIERS?NO SPECIAL DEVICES?YES :CANE, WALKER CHILDREN'S AIDE NEEDED?NO PAIN CLINIC PFS, CLERGY, PUBLIC HEALTH REFERRALS PFS REFERRAL NEEDED?NO CLERGY REFERRAL NEEDED?NO PUBLIC HEALTH REFERRAL NEEDED?NO WAS THE PROVIDER NOTIFIED OF ANY PERTINENT INFO? N/A HAS THE PATIENT BEEN EDUCATED REGARDING HIS/HER PLAN OF CARE?YES HAS THE PATIENT BEEN EDUCATED REGARDING PAIN, THE RISK FOR PAIN, THE IMPORTANCE OF EFFECTIVE PAIN MANAGEMENT, AND THE PAIN ASSESSMENT PROCESS?YES LATEX QUESTIONNAIRE LATEX ALLERGY : HAVE YOU EVER DEVELOPED ANY TYPE OF REACTION AFTER HANDLING LATEX PRODUCTS SUCH RUBBER GLOVES, CONDOMS, DIAPHRAGMS, BALLOONS, SOCKS, OR UNDERWEAR?NO LATEX ALLERGY : HAVE YOU EVER DEVELOPED ANY TYPE OF REACTION DURING OR AFTER DENTAL APPOINTMENT, VAGINAL/RECTAL EXAMINATION, SURGICAL PROCEDURE, OR ANY OTHER EXPOSURE?NO LATEX RISK : HAVE YOU EVER HAD ANY DIFFICULTY BREATHING OR HIVES AFTER EATING OR HANDLING ANY FRUITS, OR VEGETABLES; SUCH KIWI, BANANAS, STONE FRUITS, OR CHESTNUTSNO LATEX RISK : DO YOU HAVE A PREVIOUS PERSONAL HISTORY OF MORE THAN NINE SURGERIES, SPINA BIFIDA, OR REPEATED CATHERIZATIONS? NO LATEX RISK : ARE YOU FREQUENTLY EXPOSED TO LATEX PRODUCTS IN YOUR OCCUPATION?NO DATE ASKED : 03/13/2019 CAFFEINE CAFFEINE USE?YES HOW OFTEN AND HOW MUCH? 2 BOTTLES [place] DEW/DAY ADVANCE DIRECTIVE ADVANCE DIRECTIVE DISCUSSED WITH PATIENT:YES HCP - ARNULFO TAVERAS [phone] YAZDANISM [id number] NONE MARITAL STATUS: SINGLE. ALCOHOL SCREENING DID YOU HAVE A DRINK CONTAINING ALCOHOL IN THE PAST YEAR?NO POINTS0 INTERPRETATIONNEGATIVE OCCUPATION: DISABLED. REVIEWED WITH PATIENT 01/11/18 0940 JS02/07/18 0905 REVIEWED WITH PT. AD03/31 18 1505 REVIEWED WITH PT. AD04/21/18 1210 REVIEWED WITH PT LASREVIEWED WITH PATIENT 06/15/18 0844 JSREVIEWED WITH PATIENT 12/22/18 1225 LASREVIEWED WITH PATIENT 08/29/18 1354 JS02/28/19 1453 REVEIWED WITH PT. ADREVIEWED WITH PATIENT 07/28/18 1054 JSREVIEWED WITH PT 06/22/18 1432 BV REVIEWED WITH PATIENT 03/27/19 0918 JS REVIEWED WITH PATIENT 05/24/2019 1004 JS. HOSPITALIZATION/MAJOR DIAGNOSTIC PROCEDURE SURGERIES "FLUID ON LEGS" DEC OR 2018 KIDNEY INFECTION 05/18/2019 REVIEW OF SYSTEMS REVIEWED BY: PROVIDER: PATRICIA ROTHMAN . CONSTITUTIONAL: ANY CHANGE IN YOUR MEDICAL CONDITION? NO . CHILLS NO . FEVER NO . INFECTION: DO YOU HAVE NEW INFECTIONS? YES, KIDNEY INFECTION - CURRENTLY ON ANTIBIOTICS, UNSURE OF THE NAME OF THE ANTIBIOTIC . DO YOU HAVE HISTORY OF MRSA? YES . MUSCULOSKELETAL: ANY NEW PATTERNS OF PAIN OR NUMBNESS? NO . GASTROENTEROLOGY: ANY NEW CHANGE IN BOWEL CONTROL? NO . GENITOURINARY: ANY NEW CHANGE IN BLADDER CONTROL? NO . IS THERE A CHANCE YOU COULD BE ? NO . HEMATOLOGY/LYMPH: DO YOU TAKE ANY BLOOD THINNERS? (FOR EXAMPLE- COUMADIN, PLAVIX, AGGRENOX, PLATEL, PRADAXA, OR XARELTO) NO . WHEN WAS YOUR LAST DOSE? DATE: TIME: . NEUROLOGY: HAVE YOU FALLEN IN THE PAST 12 MONTHS? NO . ANY NEW EXTREMITY NUMBNESS OR WEAKNESS? NO . CARDIOLOGY: DO YOU HAVE A PACEMAKER OR DEFIBRILLATOR? NO . RESPIRATORY: HAVE YOU BEEN SICK IN THE PAST WEEK? YES, NAUSEA RELATED TO KIDNEY INFECTION . FEVER YES . FLU LIKE SYMPTOMS? NO . COUGH NO . INTEGUMENTARY: DO YOU HAVE ANY RASHES OR OPEN SORES? NO . ALLERGIC/IMMUNO: ARE YOU ALLERGIC TO IV DYE? NO . ANY NEW ALLERGIES? NO . PSYCHIATRIC: DO YOU HAVE THOUGHTS OF HURTING YOURSELF OR SOMEONE ELSE? NO . ARE YOU ABUSED, NEGLECTED, OR IN AN UNSAFE ENVIRONMENT? NO . ENDOCRINOLOGY: ARE YOU DIABETIC? YES . OTHER: DO YOU NEED ANY PRESCRIPTIONS? YES . IF YES, PLEASE LIST: ____LYRICA, CYCLOBENZAPRINE . ANY NEW PROBLEMS WITH YOUR MEDICATIONS? NO . WHEN DID YOU LAST EAT? ____ . WHEN DID YOU LAST DRINK? ____ . WHAT DID YOU LAST DRINK? ____ . NAME OF PERSON DRIVING YOU HOME? ____ . DO YOU HAVE ANY OTHER QUESTIONS OR CONCERNS NO . VITAL SIGNS WT 289.8 LBS, HT 60.5 IN, BMI 55.66 INDEX, BP 131/76 MM HG, HR 92 /MIN, RR 18 /MIN, TEMP 97.2 F, OXYGEN SAT % 99%, SAFE IN ENV? (Y/N) YES, NA INITIALS AW 0953, REVIEWED BY: ROBERTA. EXAMINATION GENERAL EXAMINATION: GENERALAWAKE,ALERT ,PLEASANT . PSYCHAFFECT NORMAL . LUNGS:LUNG ARORA ARE CLEAR TO AUSCULTATION BILATERALLY. GOOD MOVEMENT OF AIR . HEART:S1, S2 IN A REGULAR RATE AND RHYTHM. NO SIGNIFICANT MURMURS, RUBS OR GALLOPS NOTED . ASSESSMENTS INTERVERTEBRAL DISC DISORDER WITH RADICULOPATHY OF LUMBAR REGION - M51.16 (PRIMARY) TREATMENT INTERVERTEBRAL DISC DISORDER WITH RADICULOPATHY OF LUMBAR REGION REFILL MORPHINE SULFATE ER TABLET EXTENDED RELEASE, 15 MG, 1 TABLET, ORALLY, EVERY 12 HRS MDD2, 30 DAYS, 60, REFILLS 0 REFILL OXYCODONE HCL TABLET, 5 MG, 1 TABLET NEEDED, ORALLY, Q8H PRN MDD3 #50 TAB SHOULD LAST 30 DAYS, 30 DAYS, 50, REFILLS 0 NOTES: PATIENT FORGOT TO BRING NARCOTIC PAIN MEDICATION WITH HER TODAY [facility]. I DID INFORM HER TODAY THAT WE WOULD BE NEEDING HER COMPLIANCE WITH WEARING CPAP ON A REGULAR BASIS FOR US TO CONTINUE PRESCRIBING NARCOTIC PAIN MEDICATION. ABNORMAL URINE TOXICOLOGY DONE ON 01/13/2019 IS REVIEWED WITH PATIENT. THIS IS POSITIVE FOR MARIJUANA. ADMITS TO USING MARIJUANA FOR PAIN RELIEF. INFORMED HER TODAY THAT THAT USING MARIJUANA IN CONJUNCTION WITH NARCOTIC PAIN MEDICATIONS WE PRESCRIBE IS FEDERALLY ILLEGAL. THIS IS AGAINST NARCOTIC AGREEMENT. SHE STATES THAT SHE WILL STOP USING MARIJUANA AND CONTINUE WITH PAIN MEDICATIONS PRESCRIBED HERE. SHE IS AWARE THAT WE WILL BE DOING EVERY 4-6 WEEK MONITORING AND URINE TOXICOLOGY AND IF ABNORMAL URINE RESULTS SHOWS UP IN FUTURE WE WOULD BE DISCONTINUING NARCOTIC PAIN MEDICATIONS.BUTRANS PATCH IS FORMALLY WASTED PER CLINIC POLICY. PROCEDURE CODES FA211 ESTABILISHED PATIENT [facility] FACILITY CHARGE DISPOSITION & COMMUNICATION FOLLOW UP 4-6WKS-(2 WKS AFTER IF POSSIBLE) (REASON: MED MANAGEMENT) ELECTRONICALLY SIGNED BY STEPHAN DRAKE ON 06/06/2019 AT 03:44 PM EST DISCLAIMER : THIS IS A VISIT SUMMARY EXTRACTED FROM THE [employer] CHART. IT IS NOT A COPY OF THE [employer] PROGRESS NOTE. JUSTUS
== END ==
LOC: M PAIN 09:45
PROVIDERS: ATTEND Nurse Practitioner Family
DX: M51.16 Intervertebral disc disorders with radiculopathy, lumbar region (principal)

== ENCOUNTER → 2019-05-29 | Outpatient (REF) | payer OTHER | LOC: M LAB REF 12:15 | PROVIDERS: ATTEND Obstetrics & Gynecology | DX: O02.1 Missed abortion (principal) ==

== ENCOUNTER → 2019-06-05 | Outpatient (REF) | payer OTHER | LOC: M LAB REF 16:23 | PROVIDERS: ATTEND Obstetrics & Gynecology | DX: O02.1 Missed abortion (principal); O02.9 Abnormal product of conception, unspecified ==

== ENCOUNTER → 2019-06-06 | Outpatient (CLI) | payer OTHER ==
[2019-06-06 12:04] LABS: HEMOGLOBIN A1c 5.9 %
== END ==
LOC: M LAB 10:30
PROVIDERS: ATTEND Family Medicine
DX: E11.9 Type 2 diabetes mellitus without complications (principal)

== ENCOUNTER 2019-06-13 10:44 | Outpatient (RCR) | payer OTHER | END 2019-06-17 | LOC: M PT 10:44 | PROVIDERS: ATTEND Physician Assistant | DX: M16.0 Bilateral primary osteoarthritis of hip (principal); M70.61 Trochanteric bursitis, right hip; M70.62 Trochanteric bursitis, left hip ==

== ENCOUNTER 2019-06-20 09:25 | Outpatient (RCR) | payer OTHER ==
[2019-06-23] MEDS ORDERED: NITR-67 PO (12:55)
== END 2019-07-18 ==
LOC: M PT 09:25
PROVIDERS: ATTEND Physician Assistant
DX: Z51.89 Encounter for other specified aftercare (principal); M70.61 Trochanteric bursitis, right hip; M70.62 Trochanteric bursitis, left hip; M16.0 Bilateral primary osteoarthritis of hip

== ENCOUNTER → 2019-06-26 | Outpatient (REF) | payer OTHER ==
[~2019-06-26] MED LIST changes: +NITR-67 PO
== END ==
LOC: M LAB REF 12:28
PROVIDERS: ATTEND Obstetrics & Gynecology
DX: O02.81 Inappropriate change in quantitative human chorionic gonadotropin (hCG) in early pregnancy (principal)

== ENCOUNTER → 2019-06-28 | Outpatient (CLI) | payer MEDICARE ==
--- NOTE | 2019-07-18 02:30 | ECWPNPC ---
PATIENT NAME: STELLA TAVERAS : 1975 GENDER: FEMALE VISIT DATE: 06/28/2019 DISCHARGE DATE: 06/28/19 1407 VISIT LOCKED DATE TIME: PHYSICIAN: PATRICIA MCNAMARA RESOURCE: PATRICIA MCNAMARA REASON FOR APPOINTMENT 1. 2 WEEK MED MNG HISTORY OF PRESENT ILLNESS HISTORY OF PRESENT ILLNESS: HERE FOR FOLLOW-UP OF CHRONIC LOW BACK PAIN, RIGHT GREATER THAN LEFT WITH RIGHT LEG RADICULAR SYMPTOMS. HAS FORGOTTEN HER PAIN MEDICATION AGAIN-OXYCODONE. PATIENT ADMITS TO USING MARIJUANA. SHE ADMITTED THIS WHEN WE WERE ABOUT TO DO URINE TOXICOLOGY TODAY. SHE TOLD ME AT HER LAST VISIT THAT SHE WOULD NOT USE MARIJUANA AND WE WOULD CONTINUE WITH NARCOTIC PAIN MEDICATION. TODAY ALICIA ADVISED HER THAT WE WOULD NO LONGER BE ABLE TO USE NARCOTIC PAIN MEDICATION AND WE WOULD BE WEANING DOWN AND DISCONTINUING OXYCODONE STARTING TODAY. WE TALKED ABOUT WITHDRAWAL SYMPTOMS. HAS RESPONDED WELL TO LUMBAR EPIDURAL STEROID INJECTIONS IN THE PAST. SHE WOULD LIKE TO PROCEED WITH ANOTHER LUMBAR EPIDURAL STEROID INJECTION. RATING PAIN LEVEL A 10 OVER 10 VAS. PAIN THE PATIENT DESCRIBES THE PAIN... FALL RISK SCREENING: SCREENING :NO FALLS REPORTED IN THE LAST YEAR CURRENT MEDICATIONS TAKING WELLBUTRIN 100 MG TABLET 1 TABLET ORALLY TWICE A DAY TAKING IRON 325 MGS 1 TAB ORAL DAILY TAKING CYMBALTA 90 MG CAPSULE DELAYED RELEASE PARTICLES 1 CAPSULE ORALLY 30MG CAP AND 60 MG CAP DAILY TAKING VITAMIN D 1000 UNIT CAPSULE CAPSULE ORALLY ONCE A DAY TAKING FLONASE 50 MCG/ACT SUSPENSION 1 SPRAY IN EACH NOSTRIL NASALLY ONCE A DAY NEEDED TAKING SUMATRIPTAN SUCCINATE 50 MG TABLET 1 TABLET NEEDED ORALLY DIRECTED TAKING COLACE 100 MG CAPSULE 1 CAPSULE NEEDED ORALLY 3X/DAY TAKING SPIRONOLACTONE 25 MG TABLET 1 TABLET ORALLY DAILY TAKING MISOPROSTOL 200 MCG TABLET 1 TABLET WITH MEALS AND AT BEDTIME ORALLY FOUR TIMES A DAY TAKING FAMOTIDINE 20 MG TABLET DISINTEGRATING DIRECTED ORALLY BID TAKING PRAMIPEXOLE DIHYDROCHLORIDE 0.25 MG TABLET 1 TABLET ORALLY BID TAKING SUCRALFATE 1 GM TABLET 1 TABLET ON AN EMPTY STOMACH ORALLY FOUR TIMES DAILY TAKING CETIRIZINE HCL 10 MG TABLET ORALLY ONCE A DAY TAKING LOSARTAN POTASSIUM 25 MG TABLET ORALLY DAILY TAKING MONTELUKAST SODIUM 10 MG TABLET 1 TABLET ORALLY ONCE A DAY TAKING DITROPAN XL 10 MG TABLET EXTENDED RELEASE 24 HOUR 1 TABLET ORALLY ONCE A DAY TAKING OMEPRAZOLE 40 MG CAPSULE DELAYED RELEASE 1 CAPSULE ORALLY FOUR TIMES DAILY TAKING VITAMIN B12 500 TABLET 500 MCG ORALLY DAILY TAKING MULTIVITAMIN 1 TABLET CHEWABLE 1 TAB(S) ORALLY DAILY TAKING CALCIUM CITRATE + 630 MG TABLET 2 TABLET WITH MEALS ORALLY TWICE A DAY TAKING LASIX 40 MG TABLET ORALLY DAILY TAKING METFORMIN HCL 1000 MG TABLET 1 TABLET WITH MEALS ORALLY TWICE A DAY TAKING MORPHINE SULFATE ER 15 MG TABLET EXTENDED RELEASE 1 TABLET ORALLY EVERY 12 HRS MDD2 TAKING OXYCODONE HCL 5 MG TABLET 1 TABLET NEEDED ORALLY Q8H PRN MDD3 #50 TAB SHOULD LAST 30 DAYS TAKING LYRICA 200 MG CAPSULE 1 CAPSULE ORALLY Q8H TID MDD3 TAKING CYCLOBENZAPRINE HCL 10 MG TABLET DIRECTED ORALLY Q8H PRN PAIN #30 TAB SHOULD LAST 30 DAYS TAKING AMITRIPTYLINE HCL 25 MG TABLET 1 TABLET ORALLY ONCE A DAY TAKING GABAPENTIN 800 MG TABLET 1 CAPSULE ORALLY FOR PAIN TID NOT-TAKING ABILIFY 5 MG TABLET 1 TABLET ORALLY ONCE A DAY NOT-TAKING BUPRENORPHINE HCL 300 MCG FILM 1 FILM TO THE GUM BUCALLY EVERY 12 HRS, NOTES: HAS NOT STARTED YET MEDICATION LIST REVIEWED AND RECONCILED WITH THE PATIENT PAST MEDICAL HISTORY DIABETES HYPERTENSION HYPERCHOLESTEREMIA OBESITY GERD (GASTROESOPHAGEAL REFLUX DISEASE) GASTRIC BYPASS ANXIETY BACK PAIN RIGHT HIP AND KNEE PAIN ALLERGIES SULFA (FOR ALLERGY USE ONLY): RASH - ALLERGY NSAIDS: GASTRIC BYPASS - CONTRAINDICATION SURGICAL HISTORY GASTRIC BYPASS 06/2015 BILAT CARPAL TUNNEL C SECTION CHOLECYSTECTOMY TONSILLECTOMY & ADENOIDECTOMY D&C 10/2017 ENDOSCOPY 11/2018 FAMILY HISTORY FATHER: , DIAGNOSED WITH UNSPECIFIED HEART DISEASE MOTHER: ALIVE, DIABETES, HYPERTENSION 2 BROTHER(S) . 1 SON(S) - HEALTHY. 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 AND TO GET PATCHES THROUGH HER PRIMARY COUNSELED THE PATIENT ON SMOKING CESSATION, EDUCATION [id number]/11/2020 HOW MANY CIGARETTES A DAY DO YOU SMOKE?11-20 HOW SOON AFTER YOU WAKE UP DO YOU SMOKE YOUR FIRST CIGARETTE?WITHIN 5 MIN HOW OFTEN DO YOU SMOKE CIGARETTES?EVERY DAY PATIENT COUNSELED ON THE DANGERS OF TOBACCO USE AND URGED TO QUIT:06/28/2019 SMOKING CESSATION INFORMATION GIVEN08/16/2018 PAMPHLET GIVEN 08/16/18 OTHERS AT HOME: CHILD, OTHER NON-RELATIVE. EDUCATION LEVEL OF EDUCATION:NOT FINISHED COLLEGE DIET: REGULAR. LANGUAGE LANGUAGES SPOKEN:GEORGIAN DOMESTIC VIOLENCE DO YOU FEEL SAFE IN YOUR ENVIRONMENT?YES NEW PATIENT PAIN DIARY TODAY'S VISITNOTES RECREATIONAL DRUG USE DRUG USE?NO EXERCISE: WALKS. LEARNING BARRIERS / SPECIAL NEEDS CHANGE FROM LAST VISIT? 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 N/A HAS THE PATIENT BEEN EDUCATED REGARDING HIS/HER PLAN OF CARE?YES HAS THE PATIENT BEEN EDUCATED REGARDING PAIN, THE RISK FOR PAIN, THE IMPORTANCE OF EFFECTIVE PAIN MANAGEMENT, AND THE PAIN ASSESSMENT PROCESS?YES LATEX QUESTIONNAIRE LATEX ALLERGY : HAVE YOU EVER DEVELOPED ANY TYPE OF REACTION AFTER HANDLING LATEX PRODUCTS SUCH RUBBER GLOVES, CONDOMS, DIAPHRAGMS, BALLOONS, SOCKS, OR UNDERWEAR?NO LATEX ALLERGY : HAVE YOU EVER DEVELOPED ANY TYPE OF REACTION DURING OR AFTER DENTAL APPOINTMENT, VAGINAL/RECTAL EXAMINATION, SURGICAL PROCEDURE, OR ANY OTHER EXPOSURE?NO LATEX RISK : HAVE YOU EVER HAD ANY DIFFICULTY BREATHING OR HIVES AFTER EATING OR HANDLING ANY FRUITS, OR VEGETABLES; SUCH KIWI, BANANAS, STONE FRUITS, OR CHESTNUTSNO LATEX RISK : DO YOU HAVE A PREVIOUS PERSONAL HISTORY OF MORE THAN NINE SURGERIES, SPINA BIFIDA, OR REPEATED CATHERIZATIONS? NO LATEX RISK : ARE YOU FREQUENTLY EXPOSED TO LATEX PRODUCTS IN YOUR OCCUPATION?NO DATE ASKED : 03/13/2019 CAFFEINE CAFFEINE USE?YES HOW OFTEN AND HOW MUCH? 2 BOTTLES [place] DEW/DAY ADVANCE DIRECTIVE ADVANCE DIRECTIVE DISCUSSED WITH PATIENT:YES HCP - ARNULFO TAVERAS [phone] MOSQUE [id number] NONE MARITAL STATUS: SINGLE. ALCOHOL SCREENING DID YOU HAVE A DRINK CONTAINING ALCOHOL IN THE PAST YEAR?NO POINTS0 INTERPRETATIONNEGATIVE OCCUPATION: DISABLED. HOSPITALIZATION/MAJOR DIAGNOSTIC PROCEDURE SURGERIES "FLUID ON LEGS" DEC OR 2018 KIDNEY INFECTION 05/18/2019 REVIEW OF SYSTEMS REVIEWED BY: PROVIDER: PATRICIA ROTHMAN . CONSTITUTIONAL: ANY CHANGE IN YOUR MEDICAL CONDITION? NO . CHILLS NO . FEVER NO . INFECTION: DO YOU HAVE NEW INFECTIONS? YES, HAD UTI, FINISHED ANTIBIOTICS . DO YOU HAVE HISTORY OF MRSA? YES . MUSCULOSKELETAL: ANY NEW PATTERNS OF PAIN OR NUMBNESS? NO . GASTROENTEROLOGY: ANY NEW CHANGE IN BOWEL CONTROL? NO . GENITOURINARY: ANY NEW CHANGE IN BLADDER CONTROL? NO . IS THERE A CHANCE YOU COULD BE ? NO . HEMATOLOGY/LYMPH: DO YOU TAKE ANY BLOOD THINNERS? (FOR EXAMPLE- COUMADIN, PLAVIX, AGGRENOX, PLATEL, PRADAXA, OR XARELTO) NO . WHEN WAS YOUR LAST DOSE? DATE: TIME: . NEUROLOGY: HAVE YOU FALLEN IN THE PAST 12 MONTHS? NO . ANY NEW EXTREMITY NUMBNESS OR WEAKNESS? NO . CARDIOLOGY: DO YOU HAVE A PACEMAKER OR DEFIBRILLATOR? NO . RESPIRATORY: HAVE YOU BEEN SICK IN THE PAST WEEK? NO . FEVER NO . FLU LIKE SYMPTOMS? NO . COUGH NO . INTEGUMENTARY: DO YOU HAVE ANY RASHES OR OPEN SORES? NO . ALLERGIC/IMMUNO: ARE YOU ALLERGIC TO IV DYE? NO . ANY NEW ALLERGIES? NO . PSYCHIATRIC: DO YOU HAVE THOUGHTS OF HURTING YOURSELF OR SOMEONE ELSE? NO . ARE YOU ABUSED, NEGLECTED, OR IN AN UNSAFE ENVIRONMENT? NO . ENDOCRINOLOGY: ARE YOU DIABETIC? NO . OTHER: DO YOU NEED ANY PRESCRIPTIONS? YES . IF YES, PLEASE LIST: ____MORPHINE . ANY NEW PROBLEMS WITH YOUR MEDICATIONS? NO . WHEN DID YOU LAST EAT? ____ . WHEN DID YOU LAST DRINK? ____ . WHAT DID YOU LAST DRINK? ____ . NAME OF PERSON DRIVING YOU HOME? ____ . DO YOU HAVE ANY OTHER QUESTIONS OR CONCERNS NO . VITAL SIGNS WT 289.0 LBS, HT 60.5 IN, BMI 55.51 INDEX, BP 135/81 MM HG, HR 81 /MIN, RR 18 /MIN, TEMP 98.1 F, OXYGEN SAT % 99%, SAFE IN ENV? (Y/N) YES, REVIEWED BY: ROBERTA. EXAMINATION GENERAL EXAMINATION: GENERAL AWAKE,ALERT ,PLEASANT . PSYCH AFFECT NORMAL . LUNGS: LUNG ARORA ARE CLEAR TO AUSCULTATION BILATERALLY. GOOD MOVEMENT OF AIR . HEART: S1, S2 IN A REGULAR RATE AND RHYTHM. NO SIGNIFICANT MURMURS, RUBS OR GALLOPS NOTED . MUSCULOSKELETAL: WEAK OVER RIGHT LEG. LUMBAR: PALPATION: + FOR PAIN OVER L/S SPINE. + FOR PAIN OVER L/S PARASPINALS.SPECIFIC POINT TENDERNESS OVER RIGHT L2/3-L3/4 LUMBAR FACET.POSITIVE MODIFIED SLE OVER RIGHT LEG.. NEUROLOGIC EXAM: NORMAL SENSATION LIGHT TOUCH BILAT. LOWER EXTREMITIES. DIAGNOSTIC TESTS REVIEWED MRI L/S SPINE-02/20/19-REVIEWED. ASSESSMENTS INTERVERTEBRAL DISC DISORDER WITH RADICULOPATHY OF LUMBAR REGION - M51.16 (PRIMARY) CHRONIC PRESCRIPTION OPIATE USE - Z79.891 TREATMENT INTERVERTEBRAL DISC DISORDER WITH RADICULOPATHY OF LUMBAR REGION START CLONIDINE HCL TABLET, 0.1 MG, 1 TABLET, ORALLY, Q8H PRN, 5 DAY(S), 15, REFILLS 0 NOTES: PATIENT STATES SHE HAS 20 OXYCODONE TABLETS AT HOME, I'M ADVISING HER TO USE 2 A DAY X5 DAYS 1 A DAY X5 DAYS THEN ONE EVERY OTHER DAY UNTIL GONE.DECREASE AND DISCONTINUE MS CONTIN 15 M. DAILY X5 DAYS, THEN 1 EVERY OTHER DAY UNTIL GONEMAY USE CLONIDINE 0.1MG TABLET 1 EVERY 8 HOURS FOR WITHDRAWAL SYMPTOMS X5 DAYS AFTER STOPPING MS CONTIN.L4/5 LESIISTOP REGISTRY REVIEWED AND DEMONSTRATES COMPLLIANCE. FORGOT TO BRING IN OXYCODONE AGAIN.50 TABLETS OF OXYCODONE 5MG WAS DISPENSED 12 DAYS AGO.STATES SHE HAS #20 TABS AT HOME.ADMITS TO SMOKING MARIJUANA RECENTLY.NO FURTHER NARCOTICS WILL BE USED TO TREAT CHRONIC PAIN AND PATIENT IS AWARE AND VOICES UNDERSTANDING.ADVSED TO REPORT TO ER WITH WITHDRAWAL SYMPTOMS NOT RESPONDING TO CLONIDINE.. PREVENTIVE MEDICINE PAIN CLINIC TEACHING: PROCEDURE TEACHING REVIEWED INFORMATION ON LUMBAR EPIDURAL STEROID INJECTION PROCEDURE WITH PATIENT. ALSO REVIEWED PRE-PROCEDURE INSTRUCTIONS. PATIENT VERBALIZED AN UNDERSTANDING. ERIKA PEDERSON 06/28/2019 2:55:44 PM > . DISPOSITION & COMMUNICATION FOLLOW UP POST (REASON: L4/5 LESI) ELECTRONICALLY SIGNED BY STEPHAN DRAKE ON 07/17/2019 AT 09:06 AM EDT DISCLAIMER : THIS IS A VISIT SUMMARY EXTRACTED FROM THE [employer] CHART. IT IS NOT A COPY OF THE [employer] PROGRESS NOTE. [id number]
== END ==
LOC: M PAIN 13:00
PROVIDERS: ATTEND Nurse Practitioner Family
DX: M51.16 Intervertebral disc disorders with radiculopathy, lumbar region (principal); G89.29 Other chronic pain; E11.9 Type 2 diabetes mellitus without complications; I10 Essential (primary) hypertension; E78.00 Pure hypercholesterolemia, unspecified; K21.9 Gastro-esophageal reflux disease without esophagitis; Z98.84 Bariatric surgery status; Z86.59 Personal history of other mental and behavioral disorders; F17.210 Nicotine dependence, cigarettes, uncomplicated; Z88.2 Allergy status to sulfonamides; Z88.6 Allergy status to analgesic agent; Z86.14 Personal history of Methicillin resistant Staphylococcus aureus infection; E66.01 Morbid (severe) obesity due to excess calories; Z68.43 Body mass index [BMI] 50.0-59.9, adult; Z79.899 Other long term (current) drug therapy

== ENCOUNTER → 2019-07-11 | Outpatient (CLI) | payer MEDICARE ==
[~2019-07-11] MED LIST changes: +ISOVUE-M 300 61% 15ML VIAL (Q9967) As Ordered ONE; +LIDOCAINE 1% SDV INJ 30 ML VIAL As Ordered ONE; +diazePAM 5 MG TAB As Ordered ONE; +diphenhydrAMINE 25 MG CAP As Ordered ONE; +methylPREDNISolone SUSP 40 MG/ML (DEPO-medrol) VIAL (J1030) As Ordered ONE; +oxyCODONE 5MG TAB As Ordered ONE
--- NOTE | 2019-07-11 14:44 | REP ---
Clinical: Lumbar pain. Spine injection. Technique: Intraoperative fluoroscopic imaging using portable C-arm technique. Findings: Three images demonstrate needle placement in the lower lumbar level with subsequent contrast injection. Total fluoroscopic time 22 seconds. Impression: Status post lumbar spine injection. Electronically Signed by Milad Momin MD 07/11/2019 02:36 P
--- NOTE | 2019-07-15 00:22 | ECWPNPC ---
PATIENT NAME: STELLA TAVERAS : 1975 GENDER: FEMALE VISIT DATE: 07/11/2019 DISCHARGE DATE: 07/11/19 1455 VISIT LOCKED DATE TIME: PHYSICIAN: AMELIA LAI MD RESOURCE: AMELIA LAI MD REASON FOR APPOINTMENT 1. LUMBAR EPIDURAL L4-5 HISTORY OF PRESENT ILLNESS HISTORY OF PRESENT ILLNESS: PAIN THE PATIENT DESCRIBES THE PAIN... FALL RISK SCREENING: SCREENING :NO FALLS REPORTED IN THE LAST YEAR CURRENT MEDICATIONS TAKING IRON 325 MGS 1 TAB ORAL DAILY, NOTES: 07/10/19 TAKING CYMBALTA 90 MG CAPSULE DELAYED RELEASE PARTICLES 1 CAPSULE ORALLY 30MG CAP AND 60 MG CAP DAILY, NOTES: 07/10/19 TAKING VITAMIN D 1000 UNIT CAPSULE CAPSULE ORALLY ONCE A DAY, NOTES: 07/11/19699 TAKING FLONASE 50 MCG/ACT SUSPENSION 1 SPRAY IN EACH NOSTRIL NASALLY ONCE A DAY NEEDED, NOTES: NONE LATELY TAKING SUMATRIPTAN SUCCINATE 50 MG TABLET 1 TABLET NEEDED ORALLY DIRECTED, NOTES: 07/10/19 TAKING COLACE 100 MG CAPSULE 1 CAPSULE NEEDED ORALLY 3X/DAY, NOTES: 07/11/19699 TAKING SPIRONOLACTONE 25 MG TABLET 1 TABLET ORALLY DAILY, NOTES: 07/11/19699 TAKING MISOPROSTOL 200 MCG TABLET 1 TABLET WITH MEALS AND AT BEDTIME ORALLY FOUR TIMES A DAY, NOTES: 07/10/19 TAKING FAMOTIDINE 20 MG TABLET DISINTEGRATING DIRECTED ORALLY BID, NOTES: 07/11/19699 TAKING PRAMIPEXOLE DIHYDROCHLORIDE 0.25 MG TABLET 1 TABLET ORALLY BID, NOTES: 07/11/19699 TAKING SUCRALFATE 1 GM TABLET 1 TABLET ON AN EMPTY STOMACH ORALLY FOUR TIMES DAILY, NOTES: 07/11/19699 TAKING CETIRIZINE HCL 10 MG TABLET ORALLY ONCE A DAY, NOTES: 07/11/19699 TAKING LOSARTAN POTASSIUM 25 MG TABLET ORALLY DAILY, NOTES: 07/11/19699 TAKING MONTELUKAST SODIUM 10 MG TABLET 1 TABLET ORALLY ONCE A DAY, NOTES: 07/11/19699 TAKING DITROPAN XL 10 MG TABLET EXTENDED RELEASE 24 HOUR 1 TABLET ORALLY ONCE A DAY, NOTES: 07/11/19699 TAKING OMEPRAZOLE 40 MG CAPSULE DELAYED RELEASE 1 CAPSULE ORALLY FOUR TIMES DAILY, NOTES: 07/11/19699 TAKING VITAMIN B12 500 TABLET 500 MCG ORALLY DAILY, NOTES: 07/11/19 07 TAKING MULTIVITAMIN 1 TABLET CHEWABLE 1 TAB(S) ORALLY DAILY, NOTES: 07/11/19699 TAKING CALCIUM CITRATE + 630 MG TABLET 2 TABLET WITH MEALS ORALLY TWICE A DAY, NOTES: 07/10/19 TAKING LASIX 40 MG TABLET ORALLY DAILY, NOTES: 07/11/19 07 TAKING METFORMIN HCL 1000 MG TABLET 1 TABLET WITH MEALS ORALLY TWICE A DAY, NOTES: 07/10/19 TAKING LYRICA 200 MG CAPSULE 1 CAPSULE ORALLY Q8H TID MDD3, NOTES: 07/11/19699 TAKING CYCLOBENZAPRINE HCL 10 MG TABLET DIRECTED ORALLY Q8H PRN PAIN #30 TAB SHOULD LAST 30 DAYS, NOTES: NONE LATELY TAKING AMITRIPTYLINE HCL 25 MG TABLET 1 TABLET ORALLY ONCE A DAY, NOTES: 07/10/19 TAKING GABAPENTIN 800 MG TABLET 1 CAPSULE ORALLY FOR PAIN TID, NOTES: 07/11/19699 TAKING CLONIDINE HCL 0.1 MG TABLET 1 TABLET ORALLY Q8H PRN, NOTES: 3 DAYS AGO NOT-TAKING WELLBUTRIN 100 MG TABLET 1 TABLET ORALLY TWICE A DAY NOT-TAKING MORPHINE SULFATE ER 15 MG TABLET EXTENDED RELEASE 1 TABLET ORALLY EVERY 12 HRS MDD2 NOT-TAKING OXYCODONE HCL 5 MG TABLET 1 TABLET NEEDED ORALLY Q8H PRN MDD3 #50 TAB SHOULD LAST 30 DAYS NOT-TAKING ABILIFY 5 MG TABLET 1 TABLET ORALLY ONCE A DAY NOT-TAKING BUPRENORPHINE HCL 300 MCG FILM 1 FILM TO THE GUM BUCALLY EVERY 12 HRS, NOTES: HAS NOT STARTED YET MEDICATION LIST REVIEWED AND RECONCILED WITH THE PATIENT PAST MEDICAL HISTORY DIABETES HYPERTENSION HYPERCHOLESTEREMIA OBESITY GERD (GASTROESOPHAGEAL REFLUX DISEASE) GASTRIC BYPASS ANXIETY BACK PAIN RIGHT HIP AND KNEE PAIN ALLERGIES SULFA (FOR ALLERGY USE ONLY): RASH - ALLERGY NSAIDS: GASTRIC BYPASS - CONTRAINDICATION SURGICAL HISTORY GASTRIC BYPASS 06/2015 BILAT CARPAL TUNNEL C SECTION CHOLECYSTECTOMY TONSILLECTOMY & ADENOIDECTOMY D&C 10/2017 ENDOSCOPY 11/2018 FAMILY HISTORY FATHER: , DIAGNOSED WITH UNSPECIFIED HEART DISEASE MOTHER: ALIVE, DIABETES, HYPERTENSION 2 BROTHER(S) . 1 SON(S) - HEALTHY. 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 AND TO GET PATCHES THROUGH HER PRIMARY COUNSELED THE PATIENT ON SMOKING CESSATION, EDUCATION [id number]/24/2020 HOW MANY CIGARETTES A DAY DO YOU SMOKE?11-20 HOW SOON AFTER YOU WAKE UP DO YOU SMOKE YOUR FIRST CIGARETTE?WITHIN 5 MIN HOW OFTEN DO YOU SMOKE CIGARETTES?EVERY DAY PATIENT COUNSELED ON THE DANGERS OF TOBACCO USE AND URGED TO QUIT:06/28/2019 SMOKING CESSATION INFORMATION GIVEN08/16/2018 PAMPHLET GIVEN 08/16/18 OTHERS AT HOME: CHILD, OTHER NON-RELATIVE. EDUCATION LEVEL OF EDUCATION:NOT FINISHED COLLEGE DIET: REGULAR. LANGUAGE LANGUAGES SPOKEN:YEMENI DOMESTIC VIOLENCE DO YOU FEEL SAFE IN YOUR ENVIRONMENT?YES NEW PATIENT PAIN DIARY TODAY'S VISITNOTES PATIENT DESCRIBES PAIN :HAVE IT ALL THE TIME, STABBING FROM 0-10, WHAT LEVEL IS YOUR PAIN TODAY?10 PRECIPITATING FACTORS TOO MUCH WALKING ALLEVIATING FACTORS SITTING DOWN IMPACT ON FUNCTION A LITTLE RECREATIONAL DRUG USE DRUG USE?NO EXERCISE: WALKS. LEARNING BARRIERS / SPECIAL NEEDS CHANGE FROM LAST VISIT? 03/13/19 BARRIERS TO LEARNING?NO HEARING IMPAIRED?NO VISION IMPAIRED?YES WEARS GLASSES COGNITIVELY IMPAIRED?NO :CORRECTIVE LENSES READINESS TO LEARN?YES LEARNING PREFERENCES?NO LEARNING CAPABILITIES PRESENT?YES EMOTIONAL BARRIERS?NO SPECIAL DEVICES?YES :CANManohar WALKER CLINICAL PHARMACY TECHNICIAN NEEDED?NO PAIN CLINIC PFS, CLERGY, PUBLIC HEALTH REFERRALS PFS REFERRAL NEEDED?NO CLERGY REFERRAL NEEDED?NO PUBLIC HEALTH REFERRAL NEEDED?NO WAS THE PROVIDER NOTIFIED OF ANY PERTINENT INFO? N/A HAS THE PATIENT BEEN EDUCATED REGARDING HIS/HER PLAN OF CARE?YES HAS THE PATIENT BEEN EDUCATED REGARDING PAIN, THE RISK FOR PAIN, THE IMPORTANCE OF EFFECTIVE PAIN MANAGEMENT, AND THE PAIN ASSESSMENT PROCESS?YES LATEX QUESTIONNAIRE LATEX ALLERGY : HAVE YOU EVER DEVELOPED ANY TYPE OF REACTION AFTER HANDLING LATEX PRODUCTS SUCH RUBBER GLOVES, CONDOMS, DIAPHRAGMS, BALLOONS, SOCKS, OR UNDERWEAR?NO LATEX ALLERGY : HAVE YOU EVER DEVELOPED ANY TYPE OF REACTION DURING OR AFTER DENTAL APPOINTMENT, VAGINAL/RECTAL EXAMINATION, SURGICAL PROCEDURE, OR ANY OTHER EXPOSURE?NO DATE ASKED : 03/13/2019 LATEX RISK : HAVE YOU EVER HAD ANY DIFFICULTY BREATHING OR HIVES AFTER EATING OR HANDLING ANY FRUITS, OR VEGETABLES; SUCH KIWI, BANANAS, STONE FRUITS, OR CHESTNUTSNO LATEX RISK : DO YOU HAVE A PREVIOUS PERSONAL HISTORY OF MORE THAN NINE SURGERIES, SPINA BIFIDA, OR REPEATED CATHERIZATIONS? NO LATEX RISK : ARE YOU FREQUENTLY EXPOSED TO LATEX PRODUCTS IN YOUR OCCUPATION?NO CAFFEINE CAFFEINE USE?YES HOW OFTEN AND HOW MUCH? 2 BOTTLES [place] DEW/DAY ADVANCE DIRECTIVE ADVANCE DIRECTIVE DISCUSSED WITH PATIENT:YES HCP - ARNULFO TAVERAS [phone] HOLINESS [id number] NONE MARITAL STATUS: SINGLE. ALCOHOL SCREENING DID YOU HAVE A DRINK CONTAINING ALCOHOL IN THE PAST YEAR?NO POINTS0 INTERPRETATIONNEGATIVE OCCUPATION: DISABLED. HOSPITALIZATION/MAJOR DIAGNOSTIC PROCEDURE SURGERIES "FLUID ON LEGS" DEC OR 2018 KIDNEY INFECTION 05/18/2019 REVIEW OF SYSTEMS REVIEWED BY: PROVIDER: . CONSTITUTIONAL: ANY CHANGE IN YOUR MEDICAL CONDITION? NO . CHILLS NO . FEVER NO . INFECTION: DO YOU HAVE NEW INFECTIONS? NO . DO YOU HAVE HISTORY OF MRSA? NO . MUSCULOSKELETAL: ANY NEW PATTERNS OF PAIN OR NUMBNESS? NO . GASTROENTEROLOGY: ANY NEW CHANGE IN BOWEL CONTROL? NO . GENITOURINARY: ANY NEW CHANGE IN BLADDER CONTROL? NO . IS THERE A CHANCE YOU COULD BE ? NO . HEMATOLOGY/LYMPH: DO YOU TAKE ANY BLOOD THINNERS? (FOR EXAMPLE- COUMADIN, PLAVIX, AGGRENOX, PLATEL, PRADAXA, OR XARELTO) NO . WHEN WAS YOUR LAST DOSE? DATE: TIME: . NEUROLOGY: HAVE YOU FALLEN IN THE PAST 12 MONTHS? NO . ANY NEW EXTREMITY NUMBNESS OR WEAKNESS? NO . CARDIOLOGY: DO YOU HAVE A PACEMAKER OR DEFIBRILLATOR? NO . RESPIRATORY: HAVE YOU BEEN SICK IN THE PAST WEEK? NO . FEVER NO . FLU LIKE SYMPTOMS? NO . COUGH NO . INTEGUMENTARY: DO YOU HAVE ANY RASHES OR OPEN SORES? NO . ALLERGIC/IMMUNO: ARE YOU ALLERGIC TO IV DYE? NO . ANY NEW ALLERGIES? NO . PSYCHIATRIC: DO YOU HAVE THOUGHTS OF HURTING YOURSELF OR SOMEONE ELSE? NO . ARE YOU ABUSED, NEGLECTED, OR IN AN UNSAFE ENVIRONMENT? NO . ENDOCRINOLOGY: ARE YOU DIABETIC? YES, FS 109 PER PT AT HOME . OTHER: DO YOU NEED ANY PRESCRIPTIONS? NO . IF YES, PLEASE LIST: ____ . ANY NEW PROBLEMS WITH YOUR MEDICATIONS? NO . WHEN DID YOU LAST EAT? 07/10/19 2200 . WHEN DID YOU LAST DRINK? 07/11/19 1100 . WHAT DID YOU LAST DRINK? WATER . NAME OF PERSON DRIVING YOU HOME? [place] . DO YOU HAVE ANY OTHER QUESTIONS OR CONCERNS NO . VITAL SIGNS WT 276 LBS, HT 60.5 IN, BMI 53.01 INDEX, BP 161/92 MM HG, HR 76 /MIN, RR 18 /MIN, TEMP 96.0 F, OXYGEN SAT % 100%, BLOOD GLUCOSE LEVEL 109, SAFE IN ENV? (Y/N) Y, NA INITIALS AW 1255, REVIEWED BY: EMFS WAS AT HOME PER PT. EM. ASSESSMENTS INTERVERTEBRAL DISC DISORDER WITH RADICULOPATHY OF LUMBAR REGION - M51.16 (PRIMARY) TREATMENT INTERVERTEBRAL DISC DISORDER WITH RADICULOPATHY OF LUMBAR REGION [facility] FLUORO GUIDE SPINE INJECTION (PAIN) PROCEDURES PRE PROCEDURE DIAGNOSIS LUMBAR DISC DISORDER WITH RADICULOPATHY POST PROCEDURE DIAGNOSIS LUMBAR DISC DISORDER WITH RADICULOPATHY PROCEDURE LUMBAR EPIDURAL STEROID INJECTION UNDER FLUOROSCOPIC GUIDANCE SURGEON DR. AMELIA LAI SLURRY CONTROL TENDER NONE ANESTHESIA LOCAL PRE PROCEDURE NOTE THE PATIENT HAS A HISTORY OF CHRONIC LOW BACK PAIN. I EVALUATED THE PATIENT AND REVIEWED THE CHART. I WENT OVER THE RISKS, ALTERNATIVES, AND BENEFITS ASSOCIATED WITH THIS PROCEDURE. THE PATIENT WOULD LIKE TO PROCEED AND GIVE CONSENT TO PERFORMED THE PROCEDURE. THE PATIENT DENIES UNEXPLAINABLE WEIGHT LOSS, FEVER, CHILLS, OR NEW CHANGES IN URINARY OR BOWEL CONTROL. DESCRIPTION OF PROCEDURE THE PATIENT WAS BROUGHT TO THE PROCEDURE ROOM AND PLACED IN THE PRONE POSITION. THE LUMBOSACRAL AREA WAS CLEANED WITH BETADINE SOLUTION AND DRAPED ASEPTICALLY. THE PROCEDURE WAS DONE UNDER STERILE CONDITIONS. I CHECKED LATERALITY AND THE LEVEL WHERE THE PROCEDURE WAS GOING TO BE PERFORMED WITH THE PATIENT AND THE SUPPORTING STAFF AT THE MOMENT OF THE TIME OUT IN THE PROCEDURE ROOM. UNDER FLUOROSCOPIC GUIDANCE, THE TARGET POINT WAS SELECTED AT THE INTERLAMINAR LEVEL OF L4-L5. LIDOCAINE WAS USED TO NUMB THE SKIN AND THE SUBCUTANEOUS TISSUE BELOW IT. EPIDURAL TUOHY NEEDLE, 17-GAUGE, WAS ADVANCED UNDER FLUOROSCOPIC GUIDANCE AND FOLLOWING PATIENT FEEDBACK UNTIL THE EPIDURAL SPACE WAS REACHED, 7 CM DEEP INTO THE SKIN BY THE LOSS OF RESISTANCE TECHNIQUE. ISOVUE M DYE 30%, 0.25 ML, WAS INJECTED SHOWING ADEQUATE SPREAD OF THE DYE. THEN, A SOLUTION OF 3 ML OF NORMAL SALINE WITH DEPO-MEDROL 60 MG WAS INJECTED SLOWLY FOLLOWING PATIENT FEEDBACK. THERE WAS NO EVIDENCE OF BLOOD, PARESTHESIA OR CEREBROSPINAL FLUID DURING THE PROCEDURE. THE PATIENT WAS SENT TO THE RECOVERY ROOM. THE PATIENT WAS MOVING THE EXTREMITIES AND DOING WELL. THERE WAS NO COMPLICATION DURING THE PROCEDURE. FLUOROSCOPY TIME WAS 22 SECONDS. POST PROCEDURE NOTE THE PATIENT WILL BE SEEN IN A FOLLOW UP IN THE NEXT FEW WEEKS. I AM LOOKING FOR LONG LASTING PAIN RELIEF FOR THE PATIENT WITH THIS INJECTION. INSTRUCTIONS WERE GIVEN, QUESTIONS WERE ANSWERED, AND THE PATIENT EXPRESSED UNDERSTANDING AND AGREES WITH THE PLAN. I, AARON WOLFE, DOCUMENTED THE ABOVE INFORMATION ACTING A SCRIBE FOR DR. LAI. I HAVE REVIEWED THE ABOVE DOCUMENT, WRITTEN BY AARON WOLFE SCRIBE AND I VERIFY THAT IT IS ACCURATE. PROCEDURE CODES 95467 LUMBAR/SACRAL W/ IMAGING 6045F RADXPS IN END [id number] PXD DISPOSITION & COMMUNICATION FOLLOW UP 3 WEEKS. 2 WEEKS (REASON: F/UP WITH PROJECT ENGINEERING DIRECTOR) ELECTRONICALLY SIGNED BY AMELIA LAI MD, MD ON 07/14/2019 AT 04:53 PM EDT DISCLAIMER : THIS IS A VISIT SUMMARY EXTRACTED FROM THE [employer] CHART. IT IS NOT A COPY OF THE [employer] PROGRESS NOTE. JUSTUS
== END ==
LOC: M PAIN 13:00
PROVIDERS: ATTEND Anesthesiology
DX: M51.16 Intervertebral disc disorders with radiculopathy, lumbar region (principal); E11.9 Type 2 diabetes mellitus without complications; I10 Essential (primary) hypertension; E78.00 Pure hypercholesterolemia, unspecified; K21.9 Gastro-esophageal reflux disease without esophagitis; Z98.84 Bariatric surgery status; Z86.59 Personal history of other mental and behavioral disorders; F17.210 Nicotine dependence, cigarettes, uncomplicated; Z88.2 Allergy status to sulfonamides; Z88.6 Allergy status to analgesic agent; E66.01 Morbid (severe) obesity due to excess calories; Z68.43 Body mass index [BMI] 50.0-59.9, adult; Z79.84 Long term (current) use of oral hypoglycemic drugs; Z79.899 Other long term (current) drug therapy
CPT/HCPCS: 62323; J1030; Q9967

== ENCOUNTER → 2019-07-31 | Outpatient (CLI) | payer MEDICARE ==
[~2019-07-31] MED LIST changes: +CYCL-707 PO; -CYCL10TA PO; -ISOVUE-M 300 61% 15ML VIAL (Q9967) As Ordered ONE; -LIDOCAINE 1% SDV INJ 30 ML VIAL As Ordered ONE; -diazePAM 5 MG TAB As Ordered ONE; -diphenhydrAMINE 25 MG CAP As Ordered ONE; -methylPREDNISolone SUSP 40 MG/ML (DEPO-medrol) VIAL (J1030) As Ordered ONE; -oxyCODONE 5MG TAB As Ordered ONE
--- NOTE | 2019-08-01 01:04 | ECWPNPC ---
PATIENT NAME: STELLA TAVERAS : 1975 GENDER: FEMALE VISIT DATE: 07/31/2019 DISCHARGE DATE: 07/31/19 1604 VISIT LOCKED DATE TIME: PHYSICIAN: PATRICIA MCNAMARA RESOURCE: PATRICIA MCNAMARA REASON FOR APPOINTMENT 1. POST PROC HISTORY OF PRESENT ILLNESS HISTORY OF PRESENT ILLNESS: PHONE CALL TO PATIENT WHO IS AGREEABLE TO TELEPHONE VISIT TODAY. HAD LUMBAR EPIDURAL STEROID INJECTION L4-5 ON 07/11/2019. STATES IT BROUGHT PAIN LEVEL DOWN TO 5/10 VAS FOR A FEW DAYS. HAVING SEVERE INCREASE IN LOW BACK PAIN AND MID BACK PAIN OVER THE PAST FEW WEEKS. RATING PAIN VAS 9/10. WE INCREASED CYCLOBENZAPRINE LAST WEEK AND PATIENT STATES INCREASE IS NOT HELPING. DISCUSSED MEDICATION AND TREATMENT OPTIONS. PAIN THE PATIENT DESCRIBES THE PAIN... FALL RISK SCREENING: SCREENING :NO FALLS REPORTED IN THE LAST YEAR CURRENT MEDICATIONS TAKING IRON 325 MGS 1 TAB ORAL DAILY TAKING CYMBALTA 90 MG CAPSULE DELAYED RELEASE PARTICLES 1 CAPSULE ORALLY 30MG CAP AND 60 MG CAP DAILY TAKING VITAMIN D 1000 UNIT CAPSULE CAPSULE ORALLY ONCE A DAY TAKING FLONASE 50 MCG/ACT SUSPENSION 1 SPRAY IN EACH NOSTRIL NASALLY ONCE A DAY NEEDED TAKING SUMATRIPTAN SUCCINATE 50 MG TABLET 1 TABLET NEEDED ORALLY DIRECTED TAKING COLACE 100 MG CAPSULE 1 CAPSULE NEEDED ORALLY 3X/DAY TAKING SPIRONOLACTONE 25 MG TABLET 1 TABLET ORALLY DAILY TAKING MISOPROSTOL 200 MCG TABLET 1 TABLET WITH MEALS AND AT BEDTIME ORALLY FOUR TIMES A DAY TAKING FAMOTIDINE 20 MG TABLET DISINTEGRATING DIRECTED ORALLY BID TAKING PRAMIPEXOLE DIHYDROCHLORIDE 0.25 MG TABLET 1 TABLET ORALLY BID TAKING SUCRALFATE 1 GM TABLET 1 TABLET ON AN EMPTY STOMACH ORALLY FOUR TIMES DAILY TAKING CETIRIZINE HCL 10 MG TABLET ORALLY ONCE A DAY TAKING LOSARTAN POTASSIUM 25 MG TABLET ORALLY DAILY TAKING MONTELUKAST SODIUM 10 MG TABLET 1 TABLET ORALLY ONCE A DAY TAKING DITROPAN XL 10 MG TABLET EXTENDED RELEASE 24 HOUR 1 TABLET ORALLY ONCE A DAY TAKING OMEPRAZOLE 40 MG CAPSULE DELAYED RELEASE 1 CAPSULE ORALLY FOUR TIMES DAILY TAKING VITAMIN B12 500 TABLET 500 MCG ORALLY DAILY TAKING MULTIVITAMIN 1 TABLET CHEWABLE 1 TAB(S) ORALLY DAILY TAKING CALCIUM CITRATE + 630 MG TABLET 2 TABLET WITH MEALS ORALLY TWICE A DAY TAKING LASIX 40 MG TABLET ORALLY DAILY TAKING METFORMIN HCL 1000 MG TABLET 1 TABLET WITH MEALS ORALLY TWICE A DAY TAKING LYRICA 200 MG CAPSULE 1 CAPSULE ORALLY Q8H TID MDD3 TAKING AMITRIPTYLINE HCL 25 MG TABLET 1 TABLET ORALLY ONCE A DAY TAKING GABAPENTIN 800 MG TABLET 1 CAPSULE ORALLY FOR PAIN TID TAKING CYCLOBENZAPRINE HCL 10 MG TABLET 1 TAB ORALLY QID NEEDED NOT-TAKING WELLBUTRIN 100 MG TABLET 1 TABLET ORALLY TWICE A DAY NOT-TAKING MORPHINE SULFATE ER 15 MG TABLET EXTENDED RELEASE 1 TABLET ORALLY EVERY 12 HRS MDD2 NOT-TAKING OXYCODONE HCL 5 MG TABLET 1 TABLET NEEDED ORALLY Q8H PRN MDD3 #50 TAB SHOULD LAST 30 DAYS NOT-TAKING ABILIFY 5 MG TABLET 1 TABLET ORALLY ONCE A DAY NOT-TAKING BUPRENORPHINE HCL 300 MCG FILM 1 FILM TO THE GUM BUCALLY EVERY 12 HRS, NOTES: HAS NOT STARTED YET NOT-TAKING CYCLOBENZAPRINE HCL 10 MG TABLET DIRECTED ORALLY Q8H PRN PAIN #30 TAB SHOULD LAST 30 DAYS NOT-TAKING CLONIDINE HCL 0.1 MG TABLET 1 TABLET ORALLY Q8H PRN MEDICATION LIST REVIEWED AND RECONCILED WITH THE PATIENT PAST MEDICAL HISTORY DIABETES HYPERTENSION HYPERCHOLESTEREMIA OBESITY GERD (GASTROESOPHAGEAL REFLUX DISEASE) GASTRIC BYPASS ANXIETY BACK PAIN RIGHT HIP AND KNEE PAIN ALLERGIES SULFA (FOR ALLERGY USE ONLY): RASH - ALLERGY NSAIDS: GASTRIC BYPASS - CONTRAINDICATION SURGICAL HISTORY GASTRIC BYPASS 06/2015 BILAT CARPAL TUNNEL C SECTION CHOLECYSTECTOMY TONSILLECTOMY & ADENOIDECTOMY D&C 10/2017 ENDOSCOPY 11/2018 FAMILY HISTORY FATHER: , DIAGNOSED WITH UNSPECIFIED HEART DISEASE MOTHER: ALIVE, DIABETES, HYPERTENSION 2 BROTHER(S) . 1 SON(S) - HEALTHY. 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 SOCIAL HISTORY GENERAL: TOBACCO USE ARE YOU A:CURRENT SMOKER ARE YOU INTERESTED IN QUITTING?NOT READY TO QUIT HOW MANY CIGARETTES A DAY DO YOU SMOKE?11-20 HOW SOON AFTER YOU WAKE UP DO YOU SMOKE YOUR FIRST CIGARETTE?WITHIN 5 MIN HOW OFTEN DO YOU SMOKE CIGARETTES?EVERY DAY PATIENT COUNSELED ON THE DANGERS OF TOBACCO USE AND URGED TO QUIT:07/31/2019 SMOKING CESSATION INFORMATION GIVEN08/16/2018 PAMPHLET GIVEN 08/16/18 OTHERS AT HOME: CHILD, OTHER NON-RELATIVE. EDUCATION LEVEL OF EDUCATION:NOT FINISHED COLLEGE DIET: REGULAR. LANGUAGE LANGUAGES SPOKEN:THAI DOMESTIC VIOLENCE DO YOU FEEL SAFE IN YOUR ENVIRONMENT?YES NEW PATIENT PAIN DIARY TODAY'S VISITNOTES 07/31/2019 PATIENT DESCRIBES PAIN :HAVE IT ALL THE TIME, STABBING FROM 0-10, WHAT LEVEL IS YOUR PAIN TODAY?9 RECREATIONAL DRUG USE DRUG USE?NO EXERCISE: WALKS. LEARNING BARRIERS / SPECIAL NEEDS CHANGE FROM LAST VISIT? 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 N/A HAS THE PATIENT BEEN EDUCATED REGARDING HIS/HER PLAN OF CARE?YES HAS THE PATIENT BEEN EDUCATED REGARDING PAIN, THE RISK FOR PAIN, THE IMPORTANCE OF EFFECTIVE PAIN MANAGEMENT, AND THE PAIN ASSESSMENT PROCESS?YES LATEX QUESTIONNAIRE LATEX ALLERGY : HAVE YOU EVER DEVELOPED ANY TYPE OF REACTION AFTER HANDLING LATEX PRODUCTS SUCH RUBBER GLOVES, CONDOMS, DIAPHRAGMS, BALLOONS, SOCKS, OR UNDERWEAR?NO LATEX ALLERGY : HAVE YOU EVER DEVELOPED ANY TYPE OF REACTION DURING OR AFTER DENTAL APPOINTMENT, VAGINAL/RECTAL EXAMINATION, SURGICAL PROCEDURE, OR ANY OTHER EXPOSURE?NO LATEX RISK : HAVE YOU EVER HAD ANY DIFFICULTY BREATHING OR HIVES AFTER EATING OR HANDLING ANY FRUITS, OR VEGETABLES; SUCH KIWI, BANANAS, STONE FRUITS, OR CHESTNUTSNO LATEX RISK : DO YOU HAVE A PREVIOUS PERSONAL HISTORY OF MORE THAN NINE SURGERIES, SPINA BIFIDA, OR REPEATED CATHERIZATIONS? NO LATEX RISK : ARE YOU FREQUENTLY EXPOSED TO LATEX PRODUCTS IN YOUR OCCUPATION?NO DATE ASKED : 07/31/2019 CAFFEINE CAFFEINE USE?YES HOW OFTEN AND HOW MUCH? 2 BOTTLES [place] DEW/DAY ADVANCE DIRECTIVE ADVANCE DIRECTIVE DISCUSSED WITH PATIENT:YES HCP - ARNULFO TAVERAS [phone] [id number] N[facility] MARITAL STATUS: SINGLE. ALCOHOL SCREENING DID YOU HAVE A DRINK CONTAINING ALCOHOL IN THE PAST YEAR?NO POINTS0 INTERPRETATIONNEGATIVE OCCUPATION: DISABLED. HOSPITALIZATION/MAJOR DIAGNOSTIC PROCEDURE SURGERIES "FLUID ON LEGS" DEC OR 2018 KIDNEY INFECTION 05/18/2019 REVIEW OF SYSTEMS REVIEWED BY: PROVIDER: PATRICIA ROTHMAN . CONSTITUTIONAL: ANY CHANGE IN YOUR MEDICAL CONDITION? NO . CHILLS NO . FEVER NO . INFECTION: DO YOU HAVE NEW INFECTIONS? NO . DO YOU HAVE HISTORY OF MRSA? YES, HX OF IN INCISION . MUSCULOSKELETAL: ANY NEW PATTERNS OF PAIN OR NUMBNESS? YES, PAIN STARTING TO GO UP HER BACK SOME . GASTROENTEROLOGY: ANY NEW CHANGE IN BOWEL CONTROL? NO . GENITOURINARY: ANY NEW CHANGE IN BLADDER CONTROL? NO . IS THERE A CHANCE YOU COULD BE ? NO . HEMATOLOGY/LYMPH: DO YOU TAKE ANY BLOOD THINNERS? (FOR EXAMPLE- COUMADIN, PLAVIX, AGGRENOX, PLATEL, PRADAXA, OR XARELTO) NO . WHEN WAS YOUR LAST DOSE? DATE: TIME: . NEUROLOGY: HAVE YOU FALLEN IN THE PAST 12 MONTHS? NO . ANY NEW EXTREMITY NUMBNESS OR WEAKNESS? NO . CARDIOLOGY: DO YOU HAVE A PACEMAKER OR DEFIBRILLATOR? NO . RESPIRATORY: HAVE YOU BEEN SICK IN THE PAST WEEK? NO . FEVER NO . FLU LIKE SYMPTOMS? NO . COUGH NO . INTEGUMENTARY: DO YOU HAVE ANY RASHES OR OPEN SORES? NO . ALLERGIC/IMMUNO: ARE YOU ALLERGIC TO IV DYE? NO . ANY NEW ALLERGIES? NO . PSYCHIATRIC: DO YOU HAVE THOUGHTS OF HURTING YOURSELF OR SOMEONE ELSE? NO . ARE YOU ABUSED, NEGLECTED, OR IN AN UNSAFE ENVIRONMENT? NO . ENDOCRINOLOGY: ARE YOU DIABETIC? YES . OTHER: DO YOU NEED ANY PRESCRIPTIONS? NO . IF YES, PLEASE LIST: ____ . ANY NEW PROBLEMS WITH YOUR MEDICATIONS? NO . WHEN DID YOU LAST EAT? ____ . WHEN DID YOU LAST DRINK? ____ . WHAT DID YOU LAST DRINK? ____ . NAME OF PERSON DRIVING YOU HOME? ____ . DO YOU HAVE ANY OTHER QUESTIONS OR CONCERNS NO . ASSESSMENTS INTERVERTEBRAL DISC DISORDER WITH RADICULOPATHY OF LUMBAR REGION - M51.16 (PRIMARY) TREATMENT INTERVERTEBRAL DISC DISORDER WITH RADICULOPATHY OF LUMBAR REGION STOP CYCLOBENZAPRINE HCL TABLET, 10 MG, 1 TAB, ORALLY, QID NEEDED CONTINUE LYRICA CAPSULE, 200 MG, 1 CAPSULE, ORALLY, Q8H TID MDD3 START TIZANIDINE HCL TABLET, 4 MG, 1 TABLET NEEDED, ORALLY, Q6H PRN, 30 DAYS, 120, REFILLS 2 NOTES: ADVISED PATIENT TO STOP CYCLOBENZAPRINE. START TIZANIDINE 4 MG EVERY 6 HOURS NEEDED. FOLLOW-UP WILL BE SCHEDULED IN 6-8 WEEKS. APPROXIMATE TIME SPENT DURING TELEPHONE VISIT WAS 11 MINUTES. OTHERS NOTES: NO VITALS OBTAINED DUE TO TELEPHONE VISIT. DISPOSITION & COMMUNICATION FOLLOW UP 6-8WKS (REASON: LBP) ELECTRONICALLY SIGNED BY STEPHAN DRAKE ON 07/31/2019 AT 12:07 PM EDT DISCLAIMER : THIS IS A VISIT SUMMARY EXTRACTED FROM THE [employer] CHART. IT IS NOT A COPY OF THE [employer] PROGRESS NOTE. MTDD
== END ==
LOC: M PAIN 11:00
PROVIDERS: ATTEND Nurse Practitioner Family
DX: M51.16 Intervertebral disc disorders with radiculopathy, lumbar region (principal); E11.9 Type 2 diabetes mellitus without complications; I10 Essential (primary) hypertension; K21.9 Gastro-esophageal reflux disease without esophagitis; Z98.84 Bariatric surgery status; Z86.59 Personal history of other mental and behavioral disorders; F17.210 Nicotine dependence, cigarettes, uncomplicated; Z88.2 Allergy status to sulfonamides; Z88.6 Allergy status to analgesic agent; Z86.14 Personal history of Methicillin resistant Staphylococcus aureus infection; Z79.84 Long term (current) use of oral hypoglycemic drugs; Z79.899 Other long term (current) drug therapy

== ENCOUNTER 2019-08-21 11:59 | Outpatient (RCR) | payer OTHER | END 2019-09-17 | LOC: M PT 11:59 | PROVIDERS: ATTEND Family Medicine | DX: I89.0 Lymphedema, not elsewhere classified (principal) ==

== ENCOUNTER → 2019-08-21 | Outpatient (CLI) | payer OTHER ==
[2019-08-21 13:27] LABS: APPEARANCE, URINE CLEAR (CLEAR); BACTERIA, URINE AUTO NEGATIVE (NEGATIVE); BILIRUBIN, URINE AUTO NEGATIVE (NEGATIVE); BLOOD, URINE BLOOD NEGATIVE (NEGATIVE); COLOR, URINE YELLOW (YELLOW); GLUCOSE, URINE (UA) AUTO NEGATIVE (NEGATIVE); KETONE, URINE AUTO NEGATIVE (NEGATIVE); LEUKOCYTE ESTERASE, URINE AUTO NEGATIVE (NEGATIVE); NITRITE, URINE AUTO NEGATIVE (NEGATIVE); PROTEIN, URINE AUTO NEGATIVE (NEGATIVE); RBC, URINE AUTO 0 /HPF (0-3); SPECIFIC GRAVITY URINE AUTO 1.004 (1.002-1.035); SQUAMOUS EPITHELIAL CELL UR AU 1 /HPF (0-6); UROBILINOGEN, URINE AUTO 0.2 mg/dL (0.0-2.0); WBC, URINE AUTO 1 /HPF (0-3)
== END ==
LOC: M LAB 12:36
PROVIDERS: ATTEND Family Medicine
DX: N39.0 Urinary tract infection, site not specified (principal)

== ENCOUNTER → 2019-08-30 | Outpatient (CLI) | payer MEDICARE ==
--- NOTE | 2019-09-01 00:04 | ECWPNPC ---
PATIENT NAME: STELLA TAVERAS : 1975 GENDER: FEMALE VISIT DATE: 08/30/2019 DISCHARGE DATE: 08/30/19 1434 VISIT LOCKED DATE TIME: PHYSICIAN: PATRICIA MCNAMARA RESOURCE: PATRICIA MCNAMARA REASON FOR APPOINTMENT 1. MEDS-PER PATRICIA-IN CLINIC HISTORY OF PRESENT ILLNESS HISTORY OF PRESENT ILLNESS: PATIENT IS BEING SEEN ON AN URGENT BASIS DUE TO INCREASE IN LOW BACK PAIN AND BILATERAL LEG PAIN. STATES HER MEDICATIONS ARE INEFFECTIVE. WE ARE NOT ABLE TO PRESCRIBE NARCOTIC PAIN MEDICATIONS DUE TO BREECH OF NARCOTIC AGREEMENT RECENTLY. HAS TRIALED MULTIPLE PROCEDURES HERE RECENTLY WITHOUT IMPROVEMENT POST PROCEDURE. MRI OF THE LUMBOSACRAL SPINE IS REVIEWED AND SHOWING MARKED PATHOLOGY THAT WARRANTS A SURGICAL OPINION. PATIENT IS REFUSING TO SEE A SURGEON. SHE IS WILLING TO COME IN TO DISCUSS TREATMENT OPTIONS WITH DR. LAI. HAS HAD MULTIPLE PROCEDURES HERE WITHOUT IMPROVEMENT IN PAIN. POSSIBLY A DORSAL COLUMN STIM TRIAL COULD BE ENTERTAINED. RATING PAIN LEVEL A 8/10 VAS. PAIN THE PATIENT DESCRIBES THE PAIN... FALL RISK SCREENING: SCREENING :NO FALLS REPORTED IN THE LAST YEAR CURRENT MEDICATIONS TAKING IRON 325 MGS 1 TAB ORAL DAILY TAKING CYMBALTA 90 MG CAPSULE DELAYED RELEASE PARTICLES 1 CAPSULE ORALLY 30MG CAP AND 60 MG CAP DAILY TAKING VITAMIN D 1000 UNIT CAPSULE CAPSULE ORALLY ONCE A DAY TAKING FLONASE 50 MCG/ACT SUSPENSION 1 SPRAY IN EACH NOSTRIL NASALLY ONCE A DAY NEEDED TAKING SUMATRIPTAN SUCCINATE 50 MG TABLET 1 TABLET NEEDED ORALLY DIRECTED TAKING COLACE 100 MG CAPSULE 1 CAPSULE NEEDED ORALLY 3X/DAY TAKING SPIRONOLACTONE 25 MG TABLET 1 TABLET ORALLY DAILY TAKING MISOPROSTOL 200 MCG TABLET 1 TABLET WITH MEALS AND AT BEDTIME ORALLY FOUR TIMES A DAY TAKING FAMOTIDINE 20 MG TABLET DISINTEGRATING DIRECTED ORALLY BID TAKING PRAMIPEXOLE DIHYDROCHLORIDE 0.25 MG TABLET 1 TABLET ORALLY BID TAKING SUCRALFATE 1 GM TABLET 1 TABLET ON AN EMPTY STOMACH ORALLY FOUR TIMES DAILY TAKING CETIRIZINE HCL 10 MG TABLET ORALLY ONCE A DAY TAKING LOSARTAN POTASSIUM 25 MG TABLET ORALLY DAILY TAKING MONTELUKAST SODIUM 10 MG TABLET 1 TABLET ORALLY ONCE A DAY TAKING DITROPAN XL 10 MG TABLET EXTENDED RELEASE 24 HOUR 1 TABLET ORALLY ONCE A DAY TAKING OMEPRAZOLE 40 MG CAPSULE DELAYED RELEASE 1 CAPSULE ORALLY FOUR TIMES DAILY TAKING VITAMIN B12 500 TABLET 500 MCG ORALLY DAILY TAKING MULTIVITAMIN 1 TABLET CHEWABLE 1 TAB(S) ORALLY DAILY TAKING CALCIUM CITRATE + 630 MG TABLET 2 TABLET WITH MEALS ORALLY TWICE A DAY TAKING LASIX 40 MG TABLET ORALLY DAILY TAKING METFORMIN HCL 1000 MG TABLET 1 TABLET WITH MEALS ORALLY TWICE A DAY TAKING AMITRIPTYLINE HCL 25 MG TABLET 1 TABLET ORALLY ONCE A DAY TAKING GABAPENTIN 800 MG TABLET 1 CAPSULE ORALLY FOR PAIN TID TAKING LYRICA 200 MG CAPSULE 1 CAPSULE ORALLY Q8H TID MDD3 TAKING TIZANIDINE HCL 4 MG TABLET 1 TABLET NEEDED ORALLY Q6H PRN NOT-TAKING WELLBUTRIN 100 MG TABLET 1 TABLET ORALLY TWICE A DAY NOT-TAKING MORPHINE SULFATE ER 15 MG TABLET EXTENDED RELEASE 1 TABLET ORALLY EVERY 12 HRS MDD2 NOT-TAKING OXYCODONE HCL 5 MG TABLET 1 TABLET NEEDED ORALLY Q8H PRN MDD3 #50 TAB SHOULD LAST 30 DAYS NOT-TAKING ABILIFY 5 MG TABLET 1 TABLET ORALLY ONCE A DAY NOT-TAKING BUPRENORPHINE HCL 300 MCG FILM 1 FILM TO THE GUM BUCALLY EVERY 12 HRS, NOTES: HAS NOT STARTED YET NOT-TAKING CYCLOBENZAPRINE HCL 10 MG TABLET DIRECTED ORALLY Q8H PRN PAIN #30 TAB SHOULD LAST 30 DAYS NOT-TAKING CLONIDINE HCL 0.1 MG TABLET 1 TABLET ORALLY Q8H PRN MEDICATION LIST REVIEWED AND RECONCILED WITH THE PATIENT PAST MEDICAL HISTORY DIABETES HYPERTENSION HYPERCHOLESTEREMIA OBESITY GERD (GASTROESOPHAGEAL REFLUX DISEASE) GASTRIC BYPASS ANXIETY BACK PAIN RIGHT HIP AND KNEE PAIN ALLERGIES SULFA (FOR ALLERGY USE ONLY): RASH - ALLERGY NSAIDS: GASTRIC BYPASS - CONTRAINDICATION SURGICAL HISTORY GASTRIC BYPASS 06/2015 BILAT CARPAL TUNNEL C SECTION CHOLECYSTECTOMY TONSILLECTOMY & ADENOIDECTOMY D&C 10/2017 ENDOSCOPY 11/2018 FAMILY HISTORY FATHER: , DIAGNOSED WITH UNSPECIFIED HEART DISEASE MOTHER: ALIVE, DIABETES, HYPERTENSION 2 BROTHER(S) . 1 SON(S) - HEALTHY. 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 SOCIAL HISTORY GENERAL: TOBACCO USE ARE YOU A:CURRENT SMOKER ARE YOU INTERESTED IN QUITTING?NOT READY TO QUIT HOW MANY CIGARETTES A DAY DO YOU SMOKE?-20 HOW SOON AFTER YOU WAKE UP DO YOU SMOKE YOUR FIRST CIGARETTE?WITHIN 5 MIN HOW OFTEN DO YOU SMOKE CIGARETTES?EVERY DAY PATIENT COUNSELED ON THE DANGERS OF TOBACCO USE AND URGED TO QUIT:08/30/2019 SMOKING CESSATION INFORMATION GIVEN08/16/2018 PAMPHLET GIVEN 08/16/18 LATEX QUESTIONNAIRE LATEX ALLERGY : HAVE YOU EVER DEVELOPED ANY TYPE OF REACTION AFTER HANDLING LATEX PRODUCTS SUCH RUBBER GLOVES, CONDOMS, DIAPHRAGMS, BALLOONS, SOCKS, OR UNDERWEAR?NO LATEX ALLERGY : HAVE YOU EVER DEVELOPED ANY TYPE OF REACTION DURING OR AFTER DENTAL APPOINTMENT, VAGINAL/RECTAL EXAMINATION, SURGICAL PROCEDURE, OR ANY OTHER EXPOSURE?NO DATE ASKED : 07/31/2019 LATEX RISK : HAVE YOU EVER HAD ANY DIFFICULTY BREATHING OR HIVES AFTER EATING OR HANDLING ANY FRUITS, OR VEGETABLES; SUCH KIWI, BANANAS, STONE FRUITS, OR CHESTNUTSNO LATEX RISK : DO YOU HAVE A PREVIOUS PERSONAL HISTORY OF MORE THAN NINE SURGERIES, SPINA BIFIDA, OR REPEATED CATHERIZATIONS? NO LATEX RISK : ARE YOU FREQUENTLY EXPOSED TO LATEX PRODUCTS IN YOUR OCCUPATION?NO ALCOHOL SCREENING DID YOU HAVE A DRINK CONTAINING ALCOHOL IN THE PAST YEAR?NO POINTS0 INTERPRETATIONNEGATIVE RECREATIONAL DRUG USE DRUG USE?NO CAFFEINE CAFFEINE USE?YES HOW OFTEN AND HOW MUCH? 2 BOTTLES [place] DEW/DAY PENTECOSTALISM [id number] NONE LANGUAGE LANGUAGES SPOKEN:MACANESE EDUCATION LEVEL OF EDUCATION:NOT FINISHED COLLEGE LEARNING BARRIERS / SPECIAL NEEDS CHANGE FROM LAST VISIT?NO 03/13/19 BARRIERS TO LEARNING?NO HEARING IMPAIRED?NO VISION IMPAIRED?YES WEARS GLASSES :CORRECTIVE LENSES COGNITIVELY IMPAIRED?NO READINESS TO LEARN?YES LEARNING PREFERENCES?NO LEARNING CAPABILITIES PRESENT?YES EMOTIONAL BARRIERS?NO SPECIAL DEVICES?YES :CANE, WALKER RN SURGICAL NEEDED?NO DOMESTIC VIOLENCE DO YOU FEEL SAFE IN YOUR ENVIRONMENT?YES OCCUPATION: DISABLED. DIET: REGULAR. EXERCISE: WALKS. MARITAL STATUS: SINGLE. OTHERS AT HOME: CHILD, OTHER NON-RELATIVE. NEW PATIENT PAIN DIARY TODAY'S VISIT 08/30/2019 PATIENT DESCRIBES PAIN :HAVE IT ALL THE TIME, SHARP FROM 0-10, WHAT LEVEL IS YOUR PAIN TODAY?10 PT REPORTS INCREASED PAIN, DESCRIBED A CONSTANT SHARP PAIN. STATES THE MUSCLE RELAXANT MAKES HER SLEEPY, BUT DOESN'T REALLY HELP WITH THE PAIN PRECIPITATING FACTORS PAIN IS CONSTANT, BUT WORSE WITH PROLONGED STANDING OR WALKING, FOR EXAMPLE WHEN GROCERY SHOPPING ALLEVIATING FACTORS NOTHING PAIN CLINIC PFS, CLERGY, PUBLIC HEALTH REFERRALS PFS REFERRAL NEEDED?NO CLERGY REFERRAL NEEDED?NO PUBLIC HEALTH REFERRAL NEEDED?NO WAS THE PROVIDER NOTIFIED OF ANY PERTINENT INFO? N/A HAS THE PATIENT BEEN EDUCATED REGARDING HIS/HER PLAN OF CARE?YES HAS THE PATIENT BEEN EDUCATED REGARDING PAIN, THE RISK FOR PAIN, THE IMPORTANCE OF EFFECTIVE PAIN MANAGEMENT, AND THE PAIN ASSESSMENT PROCESS?YES ADVANCE DIRECTIVE ADVANCE DIRECTIVE DISCUSSED WITH PATIENT:YES HCP - ARNULFO TAVERAS [phone] AND [facility] HOSPITALIZATION/MAJOR DIAGNOSTIC PROCEDURE SURGERIES "FLUID ON LEGS" DEC OR 2018 KIDNEY INFECTION 05/18/2019 REVIEW OF SYSTEMS REVIEWED BY: PROVIDER: PATRICIA ROTHMAN . CONSTITUTIONAL: ANY CHANGE IN YOUR MEDICAL CONDITION? NO . CHILLS NO . FEVER NO . INFECTION: DO YOU HAVE NEW INFECTIONS? NO . DO YOU HAVE HISTORY OF MRSA? YES 2009 AFTER C SECTION . MUSCULOSKELETAL: ANY NEW PATTERNS OF PAIN OR NUMBNESS? NO . GASTROENTEROLOGY: ANY NEW CHANGE IN BOWEL CONTROL? NO . GENITOURINARY: ANY NEW CHANGE IN BLADDER CONTROL? NO . IS THERE A CHANCE YOU COULD BE ? NO . HEMATOLOGY/LYMPH: DO YOU TAKE ANY BLOOD THINNERS? (FOR EXAMPLE- COUMADIN, PLAVIX, AGGRENOX, PLATEL, PRADAXA, OR XARELTO) NO . WHEN WAS YOUR LAST DOSE? DATE: TIME: . NEUROLOGY: HAVE YOU FALLEN IN THE PAST 12 MONTHS? NO . ANY NEW EXTREMITY NUMBNESS OR WEAKNESS? NO . CARDIOLOGY: DO YOU HAVE A PACEMAKER OR DEFIBRILLATOR? NO . RESPIRATORY: HAVE YOU BEEN SICK IN THE PAST WEEK? NO . FEVER NO . FLU LIKE SYMPTOMS? NO . COUGH NO . INTEGUMENTARY: DO YOU HAVE ANY RASHES OR OPEN SORES? NO . ALLERGIC/IMMUNO: ARE YOU ALLERGIC TO IV DYE? NO . ANY NEW ALLERGIES? NO . PSYCHIATRIC: DO YOU HAVE THOUGHTS OF HURTING YOURSELF OR SOMEONE ELSE? NO . ARE YOU ABUSED, NEGLECTED, OR IN AN UNSAFE ENVIRONMENT? NO . ENDOCRINOLOGY: ARE YOU DIABETIC? YES . OTHER: DO YOU NEED ANY PRESCRIPTIONS? YES . IF YES, PLEASE LIST: ____GABAPENTIN, LYRICA, AMITRIPTYLINE . ANY NEW PROBLEMS WITH YOUR MEDICATIONS? NO . WHEN DID YOU LAST EAT? ____ . WHEN DID YOU LAST DRINK? ____ . WHAT DID YOU LAST DRINK? ____ . NAME OF PERSON DRIVING YOU HOME? ____ . DO YOU HAVE ANY OTHER QUESTIONS OR CONCERNS NO . VITAL SIGNS WT 292.4 LBS, HT 60.5 IN, BMI 56.16 INDEX, BP 158/83 MM HG, HR 117 /MIN, RR 18 /MIN, TEMP 95.6 F, OXYGEN SAT % 98%, NA INITIALS AW 1348. EXAMINATION GENERAL EXAMINATION: GENERAL AWAKE,ALERT ,PLEASANT . PSYCH AFFECT NORMAL . LUNGS: LUNG ARORA ARE CLEAR TO AUSCULTATION BILATERALLY. GOOD MOVEMENT OF AIR . HEART: S1, S2 IN A REGULAR RATE AND RHYTHM. NO SIGNIFICANT MURMURS, RUBS OR GALLOPS NOTED . LUMBAR: PALPATION: + FOR PAIN OVER L/S SPINE. + FOR PAIN OVER L/S PARASPINALS . DIAGNOSTIC TESTS REVIEWEDMRI L/S SPINE. 2019 . ASSESSMENTS INTERVERTEBRAL DISC DISORDER WITH RADICULOPATHY OF LUMBAR REGION - M51.16 (PRIMARY) TREATMENT INTERVERTEBRAL DISC DISORDER WITH RADICULOPATHY OF LUMBAR REGION CONTINUE LYRICA CAPSULE, 200 MG, 1 CAPSULE, ORALLY, Q8H TID MDD3 STOP TIZANIDINE HCL TABLET, 4 MG, 1 TABLET NEEDED, ORALLY, Q6H PRN START ROBAXIN-750 TABLET, 750 MG, 1 TABLET, ORALLY, Q8H PRN, 30 DAY(S), 90, REFILLS 2 START KETOROLAC TROMETHAMINE TABLET, 10 MG, 1 TABLET WITH FOOD OR MILK NEEDED, ORALLY, EVERY 6 HRS, 5 DAY(S), 20, REFILLS 0 NOTES: ADDENDUM: KETOROLAC WILL NOT BE PRESCRIBED STATED IN TREATMENT PLAN DUE TO PATIENT'S HISTORY OF GASTRIC BYPASS. PREVENTIVE MEDICINE PAIN CLINIC TEACHING: MEDICATIONS INFORMATION HANDOUT FOR ROBAXIN PRINTED AND REVIEWED WITH PATIENT. . PROCEDURE CODES FA211 ESTABILISHED PATIENT [facility] CHARGE DISPOSITION & COMMUNICATION FOLLOW UP DR Zimmer F/U LAUREN TO DISCUSS TREATMENT OPTIONS ?DCS TRIAL VS MORE INJECTIONS (REASON: LBP) ELECTRONICALLY SIGNED BY STEPHAN DRAKE ON 08/31/2019 AT 12:51 PM EDT DISCLAIMER : THIS IS A VISIT SUMMARY EXTRACTED FROM THE [facility] CHART. IT IS NOT A COPY OF THE [facility] PROGRESS NOTE. MTDD
== END ==
LOC: M PAIN 14:00
PROVIDERS: ATTEND Nurse Practitioner Family
DX: M51.16 Intervertebral disc disorders with radiculopathy, lumbar region (principal); E11.9 Type 2 diabetes mellitus without complications; I10 Essential (primary) hypertension; K21.9 Gastro-esophageal reflux disease without esophagitis; Z98.84 Bariatric surgery status; Z86.59 Personal history of other mental and behavioral disorders; F17.210 Nicotine dependence, cigarettes, uncomplicated; Z88.2 Allergy status to sulfonamides; Z88.6 Allergy status to analgesic agent; Z86.14 Personal history of Methicillin resistant Staphylococcus aureus infection; E66.01 Morbid (severe) obesity due to excess calories; Z68.43 Body mass index [BMI] 50.0-59.9, adult; Z79.84 Long term (current) use of oral hypoglycemic drugs; Z79.899 Other long term (current) drug therapy

== ENCOUNTER → 2019-09-04 | Outpatient (CLI) | payer MEDICARE ==
--- NOTE | 2019-09-08 00:47 | ECWPNPC ---
PATIENT NAME: STELLA TAVERAS : 1975 GENDER: FEMALE VISIT DATE: 09/04/2019 DISCHARGE DATE: 09/04/19 1557 VISIT LOCKED DATE TIME: PHYSICIAN: AMELIA LAI MD RESOURCE: AMELIA LAI MD REASON FOR APPOINTMENT 1. DR Goran Salcedo/Gary AGULIAR TO DISCUSS TREATMENT OPTIONS ?DCS TRIAL VS MORE INJECTIONS HISTORY OF PRESENT ILLNESS HISTORY OF PRESENT ILLNESS: PAIN THE PATIENT DESCRIBES THE PAIN... 44 YEAR OLD FEMALE PATIENT WITH A HISTORY OF CHRONIC LOW BACK PAIN. THE PATIENT DESCRIBES HER PAIN CONSTANT AND SHARP WITH A PAIN SCORE OF 6-9/10 DEPENDING ON PHYSICAL ACTIVITY. THE PATIENT STATES HER PAIN STARTS IN HER LOW BACK AND RADIATES DOWN MAINLY HER RIGHT LEG TO KNEE LEVEL. THE PATIENT SAYS HER PREVIOUS INJECTION THERAPY HAS HELPED WITH HER PAIN FOR A FEW WEEKS BUT THEN HER PAIN WOULD RETURN. HOWEVER, THE PATIENT SAYS HER LAST RIGHT RADIOFREQUENCY ABLATION PROVIDED HER WITH A MONTH AND HALF OF GOOD PAIN RELIEF FOR HER. THE PATIENT DENIES UNEXPLAINED WEIGHT LOSS, FEVER, CHILLS, NEW CHANGES IN HER URINARY OR BOWEL CONTROL. FALL RISK SCREENING: SCREENING :NO FALLS REPORTED IN THE LAST YEAR CURRENT MEDICATIONS TAKING IRON 325 MGS 1 TAB ORAL DAILY TAKING CYMBALTA 90 MG CAPSULE DELAYED RELEASE PARTICLES 1 CAPSULE ORALLY 30MG CAP AND 60 MG CAP DAILY TAKING VITAMIN D 1000 UNIT CAPSULE CAPSULE ORALLY ONCE A DAY TAKING FLONASE 50 MCG/ACT SUSPENSION 1 SPRAY IN EACH NOSTRIL NASALLY ONCE A DAY NEEDED TAKING SUMATRIPTAN SUCCINATE 50 MG TABLET 1 TABLET NEEDED ORALLY DIRECTED TAKING COLACE 100 MG CAPSULE 1 CAPSULE NEEDED ORALLY 3X/DAY TAKING SPIRONOLACTONE 25 MG TABLET 1 TABLET ORALLY DAILY TAKING MISOPROSTOL 200 MCG TABLET 1 TABLET WITH MEALS AND AT BEDTIME ORALLY FOUR TIMES A DAY TAKING FAMOTIDINE 20 MG TABLET DISINTEGRATING DIRECTED ORALLY BID TAKING PRAMIPEXOLE DIHYDROCHLORIDE 0.25 MG TABLET 1 TABLET ORALLY BID TAKING SUCRALFATE 1 GM TABLET 1 TABLET ON AN EMPTY STOMACH ORALLY FOUR TIMES DAILY TAKING CETIRIZINE HCL 10 MG TABLET ORALLY ONCE A DAY TAKING LOSARTAN POTASSIUM 25 MG TABLET ORALLY DAILY TAKING MONTELUKAST SODIUM 10 MG TABLET 1 TABLET ORALLY ONCE A DAY TAKING DITROPAN XL 10 MG TABLET EXTENDED RELEASE 24 HOUR 1 TABLET ORALLY ONCE A DAY TAKING OMEPRAZOLE 40 MG CAPSULE DELAYED RELEASE 1 CAPSULE ORALLY FOUR TIMES DAILY TAKING VITAMIN B12 500 TABLET 500 MCG ORALLY DAILY TAKING MULTIVITAMIN 1 TABLET CHEWABLE 1 TAB(S) ORALLY DAILY TAKING CALCIUM CITRATE + 630 MG TABLET 2 TABLET WITH MEALS ORALLY TWICE A DAY TAKING LASIX 40 MG TABLET ORALLY DAILY TAKING METFORMIN HCL 1000 MG TABLET 1 TABLET WITH MEALS ORALLY TWICE A DAY TAKING AMITRIPTYLINE HCL 25 MG TABLET 1 TABLET ORALLY ONCE A DAY TAKING GABAPENTIN 800 MG TABLET 1 CAPSULE ORALLY FOR PAIN TID TAKING LYRICA 200 MG CAPSULE 1 CAPSULE ORALLY Q8H TID MDD3 TAKING ROBAXIN-750 750 MG TABLET 1 TABLET ORALLY Q8H PRN TAKING KETOROLAC TROMETHAMINE 10 MG TABLET 1 TABLET WITH FOOD OR MILK NEEDED ORALLY EVERY 6 HRS NOT-TAKING WELLBUTRIN 100 MG TABLET 1 TABLET ORALLY TWICE A DAY NOT-TAKING MORPHINE SULFATE ER 15 MG TABLET EXTENDED RELEASE 1 TABLET ORALLY EVERY 12 HRS MDD2 NOT-TAKING OXYCODONE HCL 5 MG TABLET 1 TABLET NEEDED ORALLY Q8H PRN MDD3 #50 TAB SHOULD LAST 30 DAYS NOT-TAKING ABILIFY 5 MG TABLET 1 TABLET ORALLY ONCE A DAY NOT-TAKING BUPRENORPHINE HCL 300 MCG FILM 1 FILM TO THE GUM BUCALLY EVERY 12 HRS, NOTES: HAS NOT STARTED YET NOT-TAKING CYCLOBENZAPRINE HCL 10 MG TABLET DIRECTED ORALLY Q8H PRN PAIN #30 TAB SHOULD LAST 30 DAYS NOT-TAKING CLONIDINE HCL 0.1 MG TABLET 1 TABLET ORALLY Q8H PRN MEDICATION LIST REVIEWED AND RECONCILED WITH THE PATIENT PAST MEDICAL HISTORY DIABETES HYPERTENSION HYPERCHOLESTEREMIA OBESITY GERD (GASTROESOPHAGEAL REFLUX DISEASE) GASTRIC BYPASS ANXIETY BACK PAIN RIGHT HIP AND KNEE PAIN ALLERGIES SULFA (FOR ALLERGY USE ONLY): RASH - ALLERGY NSAIDS: GASTRIC BYPASS - CONTRAINDICATION SURGICAL HISTORY GASTRIC BYPASS 06/2015 BILAT CARPAL TUNNEL C SECTION CHOLECYSTECTOMY TONSILLECTOMY & ADENOIDECTOMY D&C 10/2017 ENDOSCOPY 11/2018 FAMILY HISTORY FATHER: , DIAGNOSED WITH UNSPECIFIED HEART DISEASE MOTHER: ALIVE, DIABETES, HYPERTENSION 2 BROTHER(S) . 1 SON(S) - HEALTHY. 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 SOCIAL HISTORY GENERAL: TOBACCO USE ARE YOU A:CURRENT SMOKER ARE YOU INTERESTED IN QUITTING?NOT READY TO QUIT HOW MANY CIGARETTES A DAY DO YOU SMOKE?31 OR MORE HOW SOON AFTER YOU WAKE UP DO YOU SMOKE YOUR FIRST CIGARETTE?WITHIN 5 MIN HOW OFTEN DO YOU SMOKE CIGARETTES?EVERY DAY PATIENT COUNSELED ON THE DANGERS OF TOBACCO USE AND URGED TO QUIT:09/04/2019 SMOKING CESSATION INFORMATION GIVEN08/16/2018 PAMPHLET GIVEN 08/16/18 LATEX QUESTIONNAIRE LATEX ALLERGY : HAVE YOU EVER DEVELOPED ANY TYPE OF REACTION AFTER HANDLING LATEX PRODUCTS SUCH RUBBER GLOVES, CONDOMS, DIAPHRAGMS, BALLOONS, SOCKS, OR UNDERWEAR?NO LATEX ALLERGY : HAVE YOU EVER DEVELOPED ANY TYPE OF REACTION DURING OR AFTER DENTAL APPOINTMENT, VAGINAL/RECTAL EXAMINATION, SURGICAL PROCEDURE, OR ANY OTHER EXPOSURE?NO LATEX RISK : HAVE YOU EVER HAD ANY DIFFICULTY BREATHING OR HIVES AFTER EATING OR HANDLING ANY FRUITS, OR VEGETABLES; SUCH KIWI, BANANAS, STONE FRUITS, OR CHESTNUTSNO LATEX RISK : DO YOU HAVE A PREVIOUS PERSONAL HISTORY OF MORE THAN NINE SURGERIES, SPINA BIFIDA, OR REPEATED CATHERIZATIONS? NO LATEX RISK : ARE YOU FREQUENTLY EXPOSED TO LATEX PRODUCTS IN YOUR OCCUPATION?NO DATE ASKED : 09/04/2019 ALCOHOL SCREENING DID YOU HAVE A DRINK CONTAINING ALCOHOL IN THE PAST YEAR?NO POINTS0 INTERPRETATIONNEGATIVE RECREATIONAL DRUG USE DRUG USE?NO CAFFEINE CAFFEINE USE?YES HOW OFTEN AND HOW MUCH? 2 BOTTLES [place] DEW/DAY FAITH [id number] NONE LANGUAGE LANGUAGES SPOKEN:[place] EDUCATION LEVEL OF EDUCATION:NOT FINISHED COLLEGE LEARNING BARRIERS / SPECIAL NEEDS CHANGE FROM LAST VISIT?NO 03/13/19 BARRIERS TO LEARNING?NO HEARING IMPAIRED?NO VISION IMPAIRED?YES WEARS GLASSES COGNITIVELY IMPAIRED?NO :CORRECTIVE LENSES READINESS TO LEARN?YES LEARNING PREFERENCES?NO LEARNING CAPABILITIES PRESENT?YES EMOTIONAL BARRIERS?NO SPECIAL DEVICES?YES :CANE, WALKER NURSE CONSULTANT NEEDED?NO DOMESTIC VIOLENCE DO YOU FEEL SAFE IN YOUR ENVIRONMENT?YES OCCUPATION: DISABLED. DIET: REGULAR. EXERCISE: WALKS. MARITAL STATUS: SINGLE. OTHERS AT HOME: CHILD, OTHER NON-RELATIVE. NEW PATIENT PAIN DIARY TODAY'S VISIT 09/04/2019 PATIENT DESCRIBES PAIN :HAVE IT ALL THE TIME, SHARP FROM 0-10, WHAT LEVEL IS YOUR PAIN TODAY?10 PT REPORTS INCREASED PAIN, DESCRIBED A CONSTANT SHARP PAIN. STATES THE MUSCLE RELAXANT MAKES HER SLEEPY, BUT DOESN'T REALLY HELP WITH THE PAIN PRECIPITATING FACTORS PAIN IS CONSTANT, BUT WORSE WITH PROLONGED STANDING OR WALKING, FOR EXAMPLE WHEN GROCERY SHOPPING ALLEVIATING FACTORS NOTHING PAIN CLINIC PFS, CLERGY, PUBLIC HEALTH REFERRALS PFS REFERRAL NEEDED?NO CLERGY REFERRAL NEEDED?NO PUBLIC HEALTH REFERRAL NEEDED?NO WAS THE PROVIDER NOTIFIED OF ANY PERTINENT INFO? N/A HAS THE PATIENT BEEN EDUCATED REGARDING HIS/HER PLAN OF CARE?YES HAS THE PATIENT BEEN EDUCATED REGARDING PAIN, THE RISK FOR PAIN, THE IMPORTANCE OF EFFECTIVE PAIN MANAGEMENT, AND THE PAIN ASSESSMENT PROCESS?YES ADVANCE DIRECTIVE ADVANCE DIRECTIVE DISCUSSED WITH PATIENT:YES HCP - ARNULFO TAVERAS [phone] AND [facility]PITALIZATION/MAJOR DIAGNOSTIC PROCEDURE SURGERIES "FLUID ON LEGS" DEC OR 2018 KIDNEY INFECTION 05/18/2019 REVIEW OF SYSTEMS REVIEWED BY: PROVIDER: . CONSTITUTIONAL: ANY CHANGE IN YOUR MEDICAL CONDITION? NO . CHILLS NO . FEVER NO . INFECTION: DO YOU HAVE NEW INFECTIONS? NO . DO YOU HAVE HISTORY OF MRSA? NO . MUSCULOSKELETAL: ANY NEW PATTERNS OF PAIN OR NUMBNESS? NO . GASTROENTEROLOGY: ANY NEW CHANGE IN BOWEL CONTROL? NO . GENITOURINARY: ANY NEW CHANGE IN BLADDER CONTROL? NO . IS THERE A CHANCE YOU COULD BE ? NO . HEMATOLOGY/LYMPH: DO YOU TAKE ANY BLOOD THINNERS? (FOR EXAMPLE- COUMADIN, PLAVIX, AGGRENOX, PLATEL, PRADAXA, OR XARELTO) NO . WHEN WAS YOUR LAST DOSE? DATE: TIME: . NEUROLOGY: HAVE YOU FALLEN IN THE PAST 12 MONTHS? NO . ANY NEW EXTREMITY NUMBNESS OR WEAKNESS? NO . CARDIOLOGY: DO YOU HAVE A PACEMAKER OR DEFIBRILLATOR? NO . RESPIRATORY: HAVE YOU BEEN SICK IN THE PAST WEEK? NO . FEVER NO . FLU LIKE SYMPTOMS? NO . COUGH NO . INTEGUMENTARY: DO YOU HAVE ANY RASHES OR OPEN SORES? NO . ALLERGIC/IMMUNO: ARE YOU ALLERGIC TO IV DYE? NO . ANY NEW ALLERGIES? NO . PSYCHIATRIC: DO YOU HAVE THOUGHTS OF HURTING YOURSELF OR SOMEONE ELSE? NO . ARE YOU ABUSED, NEGLECTED, OR IN AN UNSAFE ENVIRONMENT? NO . ENDOCRINOLOGY: ARE YOU DIABETIC? YES . OTHER: DO YOU NEED ANY PRESCRIPTIONS? YES . IF YES, PLEASE LIST: AMITRIPTYLINE, LYRICA, GABAPENTIN . ANY NEW PROBLEMS WITH YOUR MEDICATIONS? NO . WHEN DID YOU LAST EAT? ____ . WHEN DID YOU LAST DRINK? ____ . WHAT DID YOU LAST DRINK? ____ . NAME OF PERSON DRIVING YOU HOME? ____ . DO YOU HAVE ANY OTHER QUESTIONS OR CONCERNS YES- PATIENT STATES SHE HAS ALSO BEEN HAVING NECK PAIN BILATERALLY WHICH RADIATES DOWN HER RIGHT SHOULDER INTO RIGHT BREAST BONE AREA AND DOWN RIGHT ARM, STATES SHE HAS ALSO BEEN HAVING INCREASED HEADACHES. STATES SHE HAS GOTTEN TPI IN BIALTERAL NECK IN THE PAST THAT HAVE HELPED WITH NECK PAIN AND HEADACHES. . VITAL SIGNS WT 294 LBS, HT 60.5 IN, BMI 56.47 INDEX, BP 145/82 MM HG, HR 111 /MIN, RR 18 /MIN, TEMP 98.7 F, OXYGEN SAT % 98%, SAFE IN ENV? (Y/N) YES, NA INITIALS [place] 1401, REVIEWED BY: DEE. EXAMINATION GENERAL EXAMINATION: PATIENT IS ALERT O X 3 AND COOPERATIVE. MRI OF THE LUMBAR SPINE DONE ON 02/20/2019 SHOWS FACET ARTHROPATHY CHANGES AND DISC PROTRUSION AT MULTIPLE LEVELS. TENDERNESS OVER THE PARASPINAL MUSCLE GROUP OF THE LOW BACK, ESPECIALLY ON THE RIGHT SIDE. ASSESSMENTS SPONDYLOSIS WITHOUT MYELOPATHY OR RADICULOPATHY, LUMBAR REGION - M47.816 (PRIMARY) INTERVERTEBRAL DISC DISORDERS WITH RADICULOPATHY, LUMBAR REGION - M51.16 TREATMENT SPONDYLOSIS WITHOUT MYELOPATHY OR RADICULOPATHY, LUMBAR REGION CLINICAL NOTES: WE DISCUSSED SEVERAL ISSUES WITH MS. TAVERAS'S PAIN MANAGEMENT CASE. THE PATIENT IS HAVING FACET AND RADICULAR PAIN, WHICH I DISCUSSED WITH THE PATIENT ABOUT, AND SHE HAS NOT BEEN RESPONDING TO LUMBAR EPIDURAL STEROID INJECTION FOR HER RADICULAR PAIN. THE PATIENT STATED SHE RECEIVED GOOD PAIN RELIEF FROM HER LAST RIGHT RADIOFREQUENCY ABLATION. DUE TO THE LUMBAR SPONDYLOSIS, I WOULD LIKE TO MOVE FORWARD WITH A RIGHT L3-L4, L4-L5 DIAGNOSTIC LUMBAR FACET BLOCK #2 TO CONSIDER RADIOFREQUENCY. WE DISCUSSED THE BENEFITS, RISKS, AND ALTERNATIVES OF THE PROCEDURE AND THE PATIENT WOULD LIKE TO PROCEED. THE PATIENT WILL FOLLOW UP IN SEVERAL WEEKS AFTER HER INJECTION TO SEE HOW IT IS HELPING WITH HER PAIN. DEPENDING ON THE RESULTS, WE MAY CONSIDER MOVING FORWARD WITH A DCS TRIAL, WHICH I DISCUSSED WITH THE PATIENT ABOUT THE TRIAL PROCESS AND REQUIREMENT. THE PATIENT IS NOT INTERESTED IN BEING REFERRED TO A SURGEON FOR NOW. INSTRUCTIONS WERE GIVEN, QUESTIONS WERE ANSWERED, PATIENT REPORTS UNDERSTANDING AND AGREES WITH THE PLAN. I, AARON WOLFE, DOCUMENTED THE ABOVE INFORMATION ACTING A SCRIBE FOR DR. LAI. I HAVE REVIEWED THE ABOVE DOCUMENT, WRITTEN BY AARON YANES AND I VERIFY THAT IT IS ACCURATE. . OTHERS NOTES: FACET JOINT INJECTION MATERIAL WAS PRINTED AND REVIEWED WITH PATIENT. PATIENT ALSO VERBALIZES UNDERSTANDING OF PRE PROCEDURE INSTRUCTIONS REVIEWED. 09/04/2019 1549 NLJ. PROCEDURE CODES FA211 ESTABILISHED PATIENT [facility] CHARGE [id number] CURRENT MEDS W/DOSAGES DOCUMENTED G8730 PAIN ASSESS POS TOOL F/U PLAN DOC DISPOSITION & COMMUNICATION FOLLOW UP 2 WEEKS (REASON: RT L3-L4, L4-L5 DFB #2) ELECTRONICALLY SIGNED BY AMELIA LAI MD, ON 09/07/2019 AT 10:45 AM EDT DISCLAIMER : THIS IS A VISIT SUMMARY EXTRACTED FROM THE [employer] CHART. IT IS NOT A COPY OF THE [employer] PROGRESS NOTE. JUSTUS
== END ==
LOC: M PAIN 14:00
PROVIDERS: ATTEND Anesthesiology
DX: M47.816 Spondylosis without myelopathy or radiculopathy, lumbar region (principal); M51.16 Intervertebral disc disorders with radiculopathy, lumbar region; E11.9 Type 2 diabetes mellitus without complications; I10 Essential (primary) hypertension; F17.210 Nicotine dependence, cigarettes, uncomplicated; Z79.84 Long term (current) use of oral hypoglycemic drugs; Z79.899 Other long term (current) drug therapy; Z88.2 Allergy status to sulfonamides; Z88.8 Allergy status to other drugs, medicaments and biological substances; Z98.84 Bariatric surgery status

== ENCOUNTER → 2019-09-05 | Outpatient (CLI) | payer OTHER ==
[~2019-09-05] MED LIST changes: +CONRAY-43 43% 50ML VIAL (Q9960) As Ordered ONE; +LIDOCAINE 1% MDV 20ML VIAL As Ordered ONE; +methylPREDNISolone 80MG/ML SUSP 1ML VIAL (J1040) As Ordered ONE; +methylPREDNISolone SUSP 40 MG/ML (DEPO-medrol) VIAL (J1030) As Ordered ONE
--- NOTE | 2019-09-05 16:59 | REP ---
RIGHT HIP INJECTION The procedure was performed under the direct supervision of Dr. Pagan. The benefits and risks including but not limited to pain infection bleeding and anaphylaxis were explained to the patient and informed consent was obtained. The right femoral neck was localized using fluoroscopic guidance. The skin was prepped and draped in a sterile fashion. 1% lidocaine was used as a local anesthetic. Using fluoroscopic guidance a 22 gauge spinal needle was inserted and advanced to the femoral neck. 1 ml of Conray 43 was injected to verify placement. 7 ml of a solution containing 5 ml of 1% lidocaine and 2 ml of Depo-Medrol 40 mg injected. The needle was then removed. The patient tolerated the procedure well and there were no immediate complications. Less than 6 seconds of fluoroscopy time was utilized for this procedure. Electronically Signed by MICHAEL Chan 09/05/2019 04:35 P Electronically Signed by Scott Pagan MD 09/05/2019 04:49 P
== END ==
LOC: M RADPRO 10:17
PROVIDERS: ATTEND Physician Assistant
DX: M70.61 Trochanteric bursitis, right hip (principal)
CPT/HCPCS: 20610; 77002; J1030; Q9960

== ENCOUNTER → 2019-09-08 | Outpatient (CLI) | payer OTHER ==
[~2019-09-08] MED LIST changes: -CONRAY-43 43% 50ML VIAL (Q9960) As Ordered ONE; -LIDOCAINE 1% MDV 20ML VIAL As Ordered ONE; -methylPREDNISolone 80MG/ML SUSP 1ML VIAL (J1040) As Ordered ONE; -methylPREDNISolone SUSP 40 MG/ML (DEPO-medrol) VIAL (J1030) As Ordered ONE
[2019-09-08 11:31] LABS: BASO # 0.1 10^3/uL (0.0-0.2); BASO % 0.4 % (0.0-1.0); EOS # 0.6 10^3/uL (0.0-0.5); EOS % 4.1 % (0.0-3.0); HEMATOCRIT 41.2 % (36.0-47.0); HEMOGLOBIN 14.2 g/dl (12.0-15.5); LYMPH # 4.5 10^3/uL (1.5-5.0); LYMPH % 33.4 % (24.0-44.0); MEAN CORPUSCULAR HEMOGLOBIN 32.1 pg (27.0-33.0); MEAN CORPUSCULAR HGB CONC 34.5 g/dl (32.0-36.5); MEAN CORPUSCULAR VOLUME 93.2 fl (80.0-96.0); MONO # 0.8 10^3/uL (0.0-0.8); MONO % 5.8 % (0.0-5.0); NEUTROPHILS # 7.5 10^3/uL (1.5-8.5); NEUTROPHILS % 55.8 % (36.0-66.0); PLATELET COUNT, AUTOMATED 351 10^3/uL (150-450); RED BLOOD COUNT 4.42 10^6/uL (4.00-5.40); WHITE BLOOD COUNT 13.5 10^3/uL (4.0-10.0)
[2019-09-08 11:34] LABS: HEMATOCRIT 41.5 % (36.0-47.0)
[2019-09-08 12:50] LABS: ALBUMIN 3.2 GM/DL (3.2-5.2); ALT/SGPT 18 U/L (12-78); BILIRUBIN,TOTAL 0.5 MG/DL (0.2-1.0); BLOOD UREA NITROGEN 8 MG/DL (7-18); CALCIUM LEVEL 8.8 MG/DL (8.5-10.1); CARBON DIOXIDE LEVEL 26 MEQ/L (21-32); CHLORIDE LEVEL 108 MEQ/L (98-107); CREATININE FOR GFR 0.68 MG/DL (0.55-1.30); FERRITIN 50 NG/ML (8-252); GLOMERULAR FILTRATION RATE > 60.0 (>58); GLUCOSE, FASTING 147 MG/DL (70-100); IRON (FE) 84 UG/DL (50-170); MAGNESIUM LEVEL 1.9 MG/DL (1.8-2.4); PERCENT SATURATION 37.5 % (13.2-45.0); PHOSPHORUS LEVEL 2.7 MG/DL (2.5-4.9); POTASSIUM SERUM 3.7 MEQ/L (3.5-5.1); SODIUM LEVEL 141 MEQ/L (136-145); TOTAL 25(OH) VITAMIN D 63.5 NG/ML (30.0-100.0); TOTAL IRON BINDING CAPACITY 224 UG/DL (250-450); TOTAL PROTEIN 6.7 GM/DL (6.4-8.2); VITAMIN B12 LEVEL 1656 PG/ML (247-911)
[2019-09-08 15:26] LABS: HEMOGLOBIN A1c 6.3 %
== END ==
LOC: M LAB 10:11
PROVIDERS: ATTEND Surgery
DX: K91.2 Postsurgical malabsorption, not elsewhere classified (principal); Z98.84 Bariatric surgery status; Z86.39 Personal history of other endocrine, nutritional and metabolic disease; E55.9 Vitamin D deficiency, unspecified

== ENCOUNTER → 2019-09-15 | Outpatient (CLI) | payer OTHER | LOC: M LABSMTC 09:54 | PROVIDERS: ATTEND Anesthesiology | DX: Z11.59 Encounter for screening for other viral diseases (principal) | CPT/HCPCS: C9803; U0003 ==

== ENCOUNTER → 2019-09-18 | Outpatient (CLI) | payer MEDICARE ==
[~2019-09-18] MED LIST changes: +BUPIVACAINE HCL 0.25% 30ML VIAL As Ordered ONE; +ISOVUE-M 300 61% 15ML VIAL As Ordered ONE; +LIDOCAINE 1% SDV 30ML VIAL As Ordered ONE
--- NOTE | 2019-09-18 23:54 | REP ---
C-ARM VIEWS LUMBAR SPINE: CLINICAL HISTORY: Pain. Two C-arm views lumbar spine performed during right-sided lumbar facet injection by Dr. Woo. Three needles are seen along the lower right lumbar facet joints. A small amount of contrast is injected. 19 seconds fluoroscopy time utilized. Electronically Signed by Scott Pagan MD 09/19/2019 01:43 P
--- NOTE | 2019-09-20 00:25 | ECWPNPC ---
PATIENT NAME: STELLA TAVERAS : 1975 GENDER: FEMALE VISIT DATE: 09/18/2019 DISCHARGE DATE: 09/18/19 1552 VISIT LOCKED DATE TIME: PHYSICIAN: AMELIA LAI MD RESOURCE: AMELIA LAI MD REASON FOR APPOINTMENT 1. RT L3-L4, L4-L5 DFB #2 HISTORY OF PRESENT ILLNESS GENERAL: -. FALL RISK SCREENING: SCREENING :NO FALLS REPORTED IN THE LAST YEAR PAIN SCREENING: PATIENT HAS A COMPLAINT OF ACUTE OR CHRONIC PAIN :YES LOCATION OF PAIN:MID BACK, LOW BACK, RIGHT HIP, LEG(S), THIGH(S) PT REPORTS PAIN IS CONSTANT MID BACK TO LOW BACK, RADIATING DOWN RIGHT HIP AND THIGH INTENSITY OF PAIN (SCALE OF 1 TO 10):10 AVERAGE PAIN LEVEL IS 5-10 PER PATIENT WHAT DOES YOUR PAIN FEEL LIKE:CONTINOUS, TENDER, THROBBING PAIN IS INCREASED BY:ACTIVITIES, PROLONGED STANDING PAIN IS DECREASED BY:SITTING NURSING NOTE: -. 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 :YES 2009, NOT CURRENT DO YOU TAKE A BLOOD THINNERS? :NO DO YOU HAVE ANY BLEEDING DISORDERS? :NO ANY NEW NUMBNESS OR WEAKNESS IN YOUR LEGS OR ARMS? :NO ANY PACEMAKER,DEFIBRILLATOR, OR DORSAL COLUMN STIMULATOR? :NO DO YOU HAVE ANY RASHES OR OPEN SORES? :NO ARE YOU ALLERGIC TO IV DYE? :NO ARE YOU DIABETIC? :NO ANY NEW PROBLEMS WITH YOUR MEDICATIONS? :NO HAVE YOU RECEIVED A VACCINE IN THE PAST 30 DAYS? :NO DO YOU PLAN TO RECEIVE A VACCINE IN THE NEXT 21 DAYS? :NO ANY HISTORY OF SEIZURES? :NO ANY HISTORY OF CARDIAC ISSUES OR EVENTS? :NO DO YOU HAVE SLEEP APNEA? :YES DO YOU WEAR A CPAP?YES ANY RECENT HEAD INJURY? :NO DO YOU HAVE ANY NEW INFECTIONS? :NO WHEN DID YOU LAST EAT? : 09/18/2019 0900 CRACKERS WHEN DID YOU LAST DRINK? : 09/18/2019 1200 WHAT DID YOU LAST DRINK? : WATER NAME OF PERSON DRIVING YOU HOME? : PETER DO YOU HAVE ANY OTHER QUESTIONS OR CONCERNS? : - CURRENT MEDICATIONS TAKING IRON 325 MGS 1 TAB ORAL DAILY, NOTES: 09/17/2019 1700 TAKING CYMBALTA 90 MG CAPSULE DELAYED RELEASE PARTICLES 1 CAPSULE ORALLY 30MG CAP AND 60 MG CAP DAILY, NOTES: 09/17/2019 2130 TAKING VITAMIN D 1000 UNIT CAPSULE CAPSULE ORALLY ONCE A DAY, NOTES: 09/18/2019829 TAKING FLONASE 50 MCG/ACT SUSPENSION 1 SPRAY IN EACH NOSTRIL NASALLY ONCE A DAY NEEDED, NOTES: 09/17/2019899 TAKING SUMATRIPTAN SUCCINATE 50 MG TABLET 1 TABLET NEEDED ORALLY DIRECTED, NOTES: A COUPLE DAYS AGO TAKING COLACE 100 MG CAPSULE 1 CAPSULE NEEDED ORALLY 3X/DAY, NOTES: 09/18/2019829 TAKING SPIRONOLACTONE 25 MG TABLET 1 TABLET ORALLY DAILY, NOTES: 09/18/2019829 TAKING MISOPROSTOL 200 MCG TABLET 1 TABLET WITH MEALS AND AT BEDTIME ORALLY FOUR TIMES A DAY, NOTES: 09/18/2019829 TAKING FAMOTIDINE 20 MG TABLET DISINTEGRATING DIRECTED ORALLY BID, NOTES: 09/18/2019829 TAKING PRAMIPEXOLE DIHYDROCHLORIDE 0.25 MG TABLET 1 TABLET ORALLY BID, NOTES: 09/18/2019829 TAKING SUCRALFATE 1 GM TABLET 1 TABLET ON AN EMPTY STOMACH ORALLY FOUR TIMES DAILY, NOTES: 09/18/2019829 TAKING CETIRIZINE HCL 10 MG TABLET ORALLY ONCE A DAY, NOTES: 09/17/20192129 TAKING LOSARTAN POTASSIUM 25 MG TABLET ORALLY DAILY, NOTES: 09/18/2019829 TAKING MONTELUKAST SODIUM 10 MG TABLET 1 TABLET ORALLY ONCE A DAY, NOTES: 09/18/2019829 TAKING DITROPAN XL 10 MG TABLET EXTENDED RELEASE 24 HOUR 1 TABLET ORALLY ONCE A DAY, NOTES: 09/18/2019829 TAKING OMEPRAZOLE 40 MG CAPSULE DELAYED RELEASE 1 CAPSULE ORALLY FOUR TIMES DAILY, NOTES: 09/18/2019829 TAKING VITAMIN B12 500 TABLET 500 MCG ORALLY DAILY, NOTES: 09/18/2019829 TAKING MULTIVITAMIN 1 TABLET CHEWABLE 1 TAB(S) ORALLY DAILY, NOTES: 09/18/2019829 TAKING CALCIUM CITRATE + 630 MG TABLET 2 TABLET WITH MEALS ORALLY TWICE A DAY, NOTES: 09/17/20191699 TAKING LASIX 40 MG TABLET ORALLY DAILY, NOTES: 09/18/20192029 TAKING METFORMIN HCL 1000 MG TABLET 1 TABLET WITH MEALS ORALLY TWICE A DAY, NOTES: 09/17/20192129 TAKING AMITRIPTYLINE HCL 25 MG TABLET 1 TABLET ORALLY ONCE A DAY, NOTES: WEDNESDAY TAKING GABAPENTIN 800 MG TABLET 1 CAPSULE ORALLY FOR PAIN TID, NOTES: 09/18/2019 0830 TAKING LYRICA 200 MG CAPSULE 1 CAPSULE ORALLY Q8H TID MDD3, NOTES: 09/18/2019 0830 TAKING ROBAXIN-750 750 MG TABLET 1 TABLET ORALLY Q8H PRN, NOTES: 09/17/2019 2300 NOT-TAKING WELLBUTRIN 100 MG TABLET 1 TABLET ORALLY TWICE A DAY NOT-TAKING MORPHINE SULFATE ER 15 MG TABLET EXTENDED RELEASE 1 TABLET ORALLY EVERY 12 HRS MDD2 NOT-TAKING OXYCODONE HCL 5 MG TABLET 1 TABLET NEEDED ORALLY Q8H PRN MDD3 #50 TAB SHOULD LAST 30 DAYS NOT-TAKING ABILIFY 5 MG TABLET 1 TABLET ORALLY ONCE A DAY NOT-TAKING BUPRENORPHINE HCL 300 MCG FILM 1 FILM TO THE GUM BUCALLY EVERY 12 HRS, NOTES: HAS NOT STARTED YET NOT-TAKING CYCLOBENZAPRINE HCL 10 MG TABLET DIRECTED ORALLY Q8H PRN PAIN #30 TAB SHOULD LAST 30 DAYS NOT-TAKING CLONIDINE HCL 0.1 MG TABLET 1 TABLET ORALLY Q8H PRN NOT-TAKING KETOROLAC TROMETHAMINE 10 MG TABLET 1 TABLET WITH FOOD OR MILK NEEDED ORALLY EVERY 6 HRS MEDICATION LIST REVIEWED AND RECONCILED WITH THE PATIENT PAST MEDICAL HISTORY DIABETES HYPERTENSION HYPERCHOLESTEREMIA OBESITY GERD (GASTROESOPHAGEAL REFLUX DISEASE) GASTRIC BYPASS ANXIETY BACK PAIN RIGHT HIP AND KNEE PAIN ALLERGIES SULFA (FOR ALLERGY USE ONLY): RASH - ALLERGY NSAIDS: GASTRIC BYPASS - CONTRAINDICATION SURGICAL HISTORY GASTRIC BYPASS 06/2015 BILAT CARPAL TUNNEL C SECTION CHOLECYSTECTOMY TONSILLECTOMY & ADENOIDECTOMY D&C 10/2017 ENDOSCOPY 11/2018 FAMILY HISTORY FATHER: , DIAGNOSED WITH UNSPECIFIED HEART DISEASE MOTHER: ALIVE, DIABETES, HYPERTENSION 2 BROTHER(S) . 1 SON(S) - HEALTHY. 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 SOCIAL HISTORY GENERAL: TOBACCO USE ARE YOU A:CURRENT SMOKER ARE YOU INTERESTED IN QUITTING?NOT READY TO QUIT HOW MANY CIGARETTES A DAY DO YOU SMOKE?31 OR MORE HOW SOON AFTER YOU WAKE UP DO YOU SMOKE YOUR FIRST CIGARETTE?WITHIN 5 MIN HOW OFTEN DO YOU SMOKE CIGARETTES?EVERY DAY PATIENT COUNSELED ON THE DANGERS OF TOBACCO USE AND URGED TO QUIT:09/15/2019 SMOKING CESSATION INFORMATION GIVEN08/16/2018 PAMPHLET GIVEN 08/16/18 LATEX QUESTIONNAIRE LATEX ALLERGY : HAVE YOU EVER DEVELOPED ANY TYPE OF REACTION AFTER HANDLING LATEX PRODUCTS SUCH RUBBER GLOVES, CONDOMS, DIAPHRAGMS, BALLOONS, SOCKS, OR UNDERWEAR?NO LATEX ALLERGY : HAVE YOU EVER DEVELOPED ANY TYPE OF REACTION DURING OR AFTER DENTAL APPOINTMENT, VAGINAL/RECTAL EXAMINATION, SURGICAL PROCEDURE, OR ANY OTHER EXPOSURE?NO DATE ASKED : 09/04/2019 LATEX RISK : HAVE YOU EVER HAD ANY DIFFICULTY BREATHING OR HIVES AFTER EATING OR HANDLING ANY FRUITS, OR VEGETABLES; SUCH KIWI, BANANAS, STONE FRUITS, OR CHESTNUTSNO LATEX RISK : DO YOU HAVE A PREVIOUS PERSONAL HISTORY OF MORE THAN NINE SURGERIES, SPINA BIFIDA, OR REPEATED CATHERIZATIONS? NO LATEX RISK : ARE YOU FREQUENTLY EXPOSED TO LATEX PRODUCTS IN YOUR OCCUPATION?NO ALCOHOL SCREENING DID YOU HAVE A DRINK CONTAINING ALCOHOL IN THE PAST YEAR?NO POINTS0 INTERPRETATIONNEGATIVE RECREATIONAL DRUG USE DRUG USE?NO CAFFEINE CAFFEINE USE?YES HOW OFTEN AND HOW MUCH? 2 BOTTLES [place]W/DAY SABIANIST [id number] NONE LANGUAGE LANGUAGES SPOKEN:BURUNDIAN EDUCATION LEVEL OF EDUCATION:NOT FINISHED COLLEGE LEARNING BARRIERS / SPECIAL NEEDS CHANGE FROM LAST VISIT?NO 09/15/19 BARRIERS TO LEARNING?NO HEARING IMPAIRED?NO VISION IMPAIRED?YES WEARS GLASSES :CORRECTIVE LENSES COGNITIVELY IMPAIRED?NO READINESS TO LEARN?YES LEARNING PREFERENCES?NO LEARNING CAPABILITIES PRESENT?YES EMOTIONAL BARRIERS?NO SPECIAL DEVICES?YES :CANE, WALKER ENVIRONMENTAL AIDE NEEDED?NO DOMESTIC VIOLENCE DO YOU FEEL SAFE IN YOUR ENVIRONMENT?YES OCCUPATION: DISABLED. DIET: REGULAR. EXERCISE: WALKS. MARITAL STATUS: SINGLE. OTHERS AT HOME: CHILD, OTHER NON-RELATIVE. NEW PATIENT PAIN DIARY TODAY'S VISIT 09/04/2019, PATIENT DESCRIBES PAIN : HAVE IT ALL THE TIME, SHARP, FROM 0-10, WHAT LEVEL IS YOUR PAIN TODAY? 10 PT REPORTS INCREASED PAIN, DESCRIBED A CONSTANT SHARP PAIN. STATES THE MUSCLE RELAXANT MAKES HER SLEEPY, BUT DOESN'T REALLY HELP WITH THE PAIN, PRECIPITATING FACTORS PAIN IS CONSTANT, BUT WORSE WITH PROLONGED STANDING OR WALKING, FOR EXAMPLE WHEN GROCERY SHOPPING, ALLEVIATING FACTORS NOTHING. PAIN CLINIC PFS, CLERGY, PUBLIC HEALTH REFERRALS PFS REFERRAL NEEDED?NO CLERGY REFERRAL NEEDED?NO PUBLIC HEALTH REFERRAL NEEDED?NO WAS THE PROVIDER NOTIFIED OF ANY PERTINENT INFO? N/A HAS THE PATIENT BEEN EDUCATED REGARDING HIS/HER PLAN OF CARE?YES HAS THE PATIENT BEEN EDUCATED REGARDING PAIN, THE RISK FOR PAIN, THE IMPORTANCE OF EFFECTIVE PAIN MANAGEMENT, AND THE PAIN ASSESSMENT PROCESS?YES ADVANCE DIRECTIVE ADVANCE DIRECTIVE DISCUSSED WITH PATIENT:YES HCP - ARNULFO TAVERAS [phone] AND [facility]ITALIZATION/MAJOR DIAGNOSTIC PROCEDURE SURGERIES "FLUID ON LEGS" DEC OR 2018 KIDNEY INFECTION 05/18/2019 VITAL SIGNS WT 297.2 LBS, HT 60.5 IN, BMI 57.08 INDEX, BP 145/71 MM HG, HR 95 /MIN, RR 18 /MIN, TEMP 98.2 F, OXYGEN SAT % 100%, BLOOD GLUCOSE LEVEL 91, SAFE IN ENV? (Y/N) YES, NA INITIALS TL 1350, REVIEWED BY: DEE. EXAMINATION GENERAL EXAMINATION: THE PATIENT IS ALERT, ORIENTED TIMES THREE AND COOPERATIVE. HEART SHOWS REGULAR RHYTHM, NO MURMURS AND NO GALLOPS. LUNGS ARE CLEAR TO AUSCULTATION. ASSESSMENTS SPONDYLOSIS WITHOUT MYELOPATHY OR RADICULOPATHY, LUMBAR REGION - M47.816 TREATMENT SPONDYLOSIS WITHOUT MYELOPATHY OR RADICULOPATHY, LUMBAR REGION SMC FACET BLOCK (PAIN)[id number] PROCEDURES PN LUMBAR FACET BLOCK DIAGNOSTIC PRE PROCEDURE DIAGNOSIS LUMBAR SPONDYLOSIS POST PROCEDURE DIAGNOSIS LUMBAR SPONDYLOSIS PROCEDURE RIGHT L3-L4 AND RIGHT L4-L5 FACET BLOCK DIAGNOSTIC NUMBER [address] AMELIA LAI MARKETING PROJECT SPECIALIST NONE ANESTHESIA LOCAL PRE PROCEDURE NOTE THE PATIENT WITH HISTORY OF CHRONIC LOW BACK PAIN. I EVALUATED THE PATIENT AND REVIEWED THE CHART. I WENT OVER THE RISKS, ALTERNATIVES, AND BENEFITS ASSOCIATED WITH THIS PROCEDURE. THE PATIENT WOULD LIKE TO PROCEED AND GAVE CONSENT TO PERFORM THE PROCEDURE. AGREED WITH THE PATIENT WE ARE DOING THIS PROCEDURE TO DETERMINE IF THE PATIENT IS A CANDIDATE FOR A RADIOFREQUENCY ABLATION OF THE FACETS JOINTS. THE PATIENT DENIES UNEXPLAINABLE WEIGHT LOSS, FEVER, CHILLS, OR NEW CHANGES IN URINARY OR BOWEL CONTROL. THE PATIENT IS COVID-19 NEGATIVE DESCRIPTION OF PROCEDURE THE PATIENT WAS BROUGHT TO THE PROCEDURE ROOM AND PLACED IN THE PRONE POSITION. THE LUMBOSACRAL AREA WAS CLEANED WITH CHLORAPREP SOLUTION AND DRAPED ASEPTICALLY. THE PROCEDURE WAS DONE UNDER STERILE CONDITIONS. I CHECKED LATERALITY AND THE LEVEL WHERE THE PROCEDURE WAS GOING TO BE PERFORMED WITH THE PATIENT AND THE SUPPORTING STAFF AT THE MOMENT OF THE TIME OUT IN THE PROCEDURE ROOM. UNDER FLUOROSCOPIC GUIDANCE, TARGETS WERE SELECTED AT THE INTERSECTION OF THE RIGHT TRANSVERSE PROCESS OF L3, L4 AND L5 WITH ITS RESPECTIVE SUPERIOR ARTICULAR PROCESS. LIDOCAINE WAS USED TO NUMB THE SKIN AND THE SUBCUTANEOUS TISSUE BELOW IT. SPINAL NEEDLE, 22-GAUGE, WAS ADVANCED UNDER FLUOROSCOPIC GUIDANCE AND FOLLOWING PATIENT FEEDBACK UNTIL THE TARGETS WERE REACHED. POSITION OF THE NEEDLES WAS VERIFIED WITH AP AND LATERAL VIEWS. AFTER PROPER POSITION OF THE NEEDLES WAS ACHIEVED, ISOVUE-M DYE 30%, 0.1 ML, WAS INJECTED AT EACH SITE SHOWING ADEQUATE SPREAD OF THE DYE. THEN A SOLUTION OF 0.4 ML OF BUPIVACAINE 0.25% WAS INJECTED AT EACH SITE. THERE WAS NO EVIDENCE OF BLOOD, PARESTHESIA OR CEREBROSPINAL FLUID DURING THE PROCEDURE. THE PATIENT WAS SENT TO THE RECOVERY ROOM. THE PATIENT WAS MOVING THE EXTREMITIES AND DOING WELL. THERE WAS NO COMPLICATION DURING THE PROCEDURE. FLUOROSCOPY TIME WAS 19 SECONDS POST PROCEDURE NOTE THE PATIENT WILL DOCUMENT HIS PAIN LEVEL AND RESPONSE TO THIS PROCEDURE EVERY 30 MINUTES. THE PATIENT WILL BE SEEN IN A FOLLOW UP IN THE NEXT FEW WEEKS. FURTHER DETERMINATION FOR HIS CASE WILL BE DONE AT THE NEXT VISIT. INSTRUCTIONS WERE GIVEN, QUESTIONS WERE ANSWERED, AND THE PATIENT EXPRESSED UNDERSTANDING AND AGREED WITH THE PLAN. I, FANY ESPINAL, DOCUMENTED THE ABOVE INFORMATION ACTING A SCRIBE FOR DR. LAI. I HAVE REVIEWED THE ABOVE DOCUMENT, WRITTEN BY FANY ESPINAL, KITCHEN AND BATH DESIGNER, AND I VERIFY THAT IT IS ACCURATE PROCEDURE CODES 04356 INJ PARAVERT F JNT L/S 1 LEV, MODIFIERS: RT 94199 INJ PARAVERT F JNT L/S 2 LEV, MODIFIERS: RT DISPOSITION & COMMUNICATION FOLLOW UP F/UP WITH [facility] MAIL CARRIER (REASON: POST LFBD #2 L3-L4, L4-L5) ELECTRONICALLY SIGNED BY AMELIA LAI MD, MD ON 09/19/2019 AT 10:09 AM EDT DISCLAIMER : THIS IS A VISIT SUMMARY EXTRACTED FROM THE SET CHART. IT IS NOT A COPY OF THE SET PROGRESS NOTE. MTDD
== END ==
LOC: M PAIN 13:45
PROVIDERS: ATTEND Anesthesiology
DX: M47.816 Spondylosis without myelopathy or radiculopathy, lumbar region (principal); E11.9 Type 2 diabetes mellitus without complications; I10 Essential (primary) hypertension; F17.210 Nicotine dependence, cigarettes, uncomplicated; Z79.84 Long term (current) use of oral hypoglycemic drugs; Z79.899 Other long term (current) drug therapy; Z88.2 Allergy status to sulfonamides; Z88.8 Allergy status to other drugs, medicaments and biological substances; Z98.84 Bariatric surgery status
CPT/HCPCS: 64493; 64494; Q9967

== ENCOUNTER → 2019-09-20 | Outpatient (CLI) | payer OTHER ==
[~2019-09-20] MED LIST changes: -BUPIVACAINE HCL 0.25% 30ML VIAL As Ordered ONE; +CONRAY-43 43% 50ML VIAL (Q9960) As Ordered ONE; -ISOVUE-M 300 61% 15ML VIAL As Ordered ONE; +LIDOCAINE 1% MDV 20ML VIAL As Ordered ONE; -LIDOCAINE 1% SDV 30ML VIAL As Ordered ONE; +methylPREDNISolone SUSP 40 MG/ML (DEPO-medrol) VIAL (J1030) As Ordered ONE
--- NOTE | 2019-09-21 19:08 | REP ---
LEFT HIP INJECTION The procedure was performed under the direct supervision of Dr. Pagan. The benefits and risks including but not limited to pain infection bleeding and anaphylaxis were explained to the patient and informed consent was obtained. The left femoral neck was localized using fluoroscopic guidance. The skin was prepped and draped in a sterile fashion. 1% lidocaine was used as a local anesthetic. Using fluoroscopic guidance a 22-gauge needle was inserted and advanced to the femoral neck. 0.5 ml of Conray 43 was injected to verify placement. 7 ml of a solution containing 5 ml of 1% lidocaine and 2 ml of Depo-Medrol 40 mg injected. The needle was then removed. The patient tolerated the procedure well and there were no immediate complications. 0.1 minutes of fluoroscopy time was utilized for this procedure. Electronically Signed by MICHAEL Chan 09/20/2019 03:19 P Electronically Signed by Scott Pagan MD 09/21/2019 06:59 P
== END ==
LOC: M RADPRO 10:39
PROVIDERS: ATTEND Physician Assistant
DX: M70.62 Trochanteric bursitis, left hip (principal)
CPT/HCPCS: 20610; 77002; J1030; Q9960

== ENCOUNTER → 2019-10-01 | Outpatient (REF) | payer OTHER ==
[~2019-10-01] MED LIST changes: -CONRAY-43 43% 50ML VIAL (Q9960) As Ordered ONE; -LIDOCAINE 1% MDV 20ML VIAL As Ordered ONE; -methylPREDNISolone SUSP 40 MG/ML (DEPO-medrol) VIAL (J1030) As Ordered ONE
== END ==
LOC: M LAB REF 16:25
PROVIDERS: ATTEND Nurse Practitioner Family
DX: R30.0 Dysuria (principal)

== ENCOUNTER → 2019-10-17 | Outpatient (CLI) | payer MEDICARE ==
--- NOTE | 2019-10-20 02:10 | ECWPNPC ---
PATIENT NAME: STELLA TAVERAS : 1975 GENDER: FEMALE VISIT DATE: 10/17/2019 DISCHARGE DATE: 10/17/19 1104 VISIT LOCKED DATE TIME: PHYSICIAN: PATRICIA MCNAMARA RESOURCE: PATRICIA MCNAMARA REASON FOR APPOINTMENT 1. POST RT DFB#2 HISTORY OF PRESENT ILLNESS GENERAL: HERE FOR POST PROCEDURE FOLLOW-UP. HAD RIGHT L3-4, L4-5 DIAGNOSTIC LUMBAR FACET #2 ON 09/18/2019. REPORTING MARKED REDUCTION IN PAIN FOR 24-48 HOURS POST PROCEDURE THEN PAIN HAS GRADUALLY RETURNED TO BASELINE. DISCUSSED MEDICATION AND TREATMENT PLAN. -. FALL RISK SCREENING: SCREENING :NO FALLS REPORTED IN THE LAST YEAR PAIN SCREENING: PATIENT HAS A COMPLAINT OF ACUTE OR CHRONIC PAIN :YES LOCATION OF PAIN:MID BACK INTENSITY OF PAIN (SCALE OF 1 TO 10):9 WHAT DOES YOUR PAIN FEEL LIKE:ACHING, CONTINOUS, STABBING, THROBBING PAIN IS INCREASED BY:ACTIVITIES PAIN IS DECREASED BY:SITTING NURSING NOTE: -. 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 :NO DO YOU TAKE A BLOOD THINNERS? :NO DO YOU HAVE ANY BLEEDING DISORDERS? :NO ANY NEW NUMBNESS OR WEAKNESS IN YOUR LEGS OR ARMS? :NO ANY PACEMAKER,DEFIBRILLATOR, OR DORSAL COLUMN STIMULATOR? :NO DO YOU HAVE ANY RASHES OR OPEN SORES? :NO ARE YOU ALLERGIC TO IV DYE? :NO ARE YOU DIABETIC? :YES ANY NEW PROBLEMS WITH YOUR MEDICATIONS? :NO HAVE YOU RECEIVED A VACCINE IN THE PAST 30 DAYS? :NO DO YOU PLAN TO RECEIVE A VACCINE IN THE NEXT 21 DAYS? :NO DO YOU NEED ANY PRESCRIPTION? :NO DO YOU TAKE ANY IMMUNOSUPPRESSIVE MEDICATIONS? :NO IS THERE A CHANCE YOU COULD BE ? :NO ARE YOU BREAST FEEDING? :NO CURRENT MEDICATIONS TAKING IRON 325 MGS 1 TAB ORAL DAILY TAKING CYMBALTA 90 MG CAPSULE DELAYED RELEASE PARTICLES 1 CAPSULE ORALLY 30MG CAP AND 60 MG CAP DAILY TAKING VITAMIN D 1000 UNIT CAPSULE CAPSULE ORALLY ONCE A DAY TAKING FLONASE 50 MCG/ACT SUSPENSION 1 SPRAY IN EACH NOSTRIL NASALLY ONCE A DAY NEEDED TAKING SUMATRIPTAN SUCCINATE 50 MG TABLET 1 TABLET NEEDED ORALLY DIRECTED, NOTES: A COUPLE DAYS AGO TAKING COLACE 100 MG CAPSULE 1 CAPSULE NEEDED ORALLY 3X/DAY TAKING SPIRONOLACTONE 25 MG TABLET 1 TABLET ORALLY DAILY TAKING MISOPROSTOL 200 MCG TABLET 1 TABLET WITH MEALS AND AT BEDTIME ORALLY FOUR TIMES A DAY TAKING FAMOTIDINE 20 MG TABLET DISINTEGRATING DIRECTED ORALLY BID TAKING PRAMIPEXOLE DIHYDROCHLORIDE 0.25 MG TABLET 1 TABLET ORALLY BID TAKING SUCRALFATE 1 GM TABLET 1 TABLET ON AN EMPTY STOMACH ORALLY FOUR TIMES DAILY TAKING CETIRIZINE HCL 10 MG TABLET ORALLY ONCE A DAY TAKING LOSARTAN POTASSIUM 25 MG TABLET ORALLY DAILY TAKING MONTELUKAST SODIUM 10 MG TABLET 1 TABLET ORALLY ONCE A DAY TAKING DITROPAN XL 10 MG TABLET EXTENDED RELEASE 24 HOUR 1 TABLET ORALLY ONCE A DAY TAKING OMEPRAZOLE 40 MG CAPSULE DELAYED RELEASE 1 CAPSULE ORALLY FOUR TIMES DAILY TAKING VITAMIN B12 500 TABLET 500 MCG ORALLY DAILY TAKING MULTIVITAMIN 1 TABLET CHEWABLE 1 TAB(S) ORALLY DAILY, NOTES: 09/18/2019 08 TAKING CALCIUM CITRATE + 630 MG TABLET 2 TABLET WITH MEALS ORALLY TWICE A DAY, NOTES: 09/17/2019 170 TAKING LASIX 40 MG TABLET ORALLY DAILY, NOTES: 09/18/20192029 TAKING METFORMIN HCL 1000 MG TABLET 1 TABLET WITH MEALS ORALLY TWICE A DAY, NOTES: 09/17/20192129 TAKING AMITRIPTYLINE HCL 25 MG TABLET 1 TABLET ORALLY ONCE A DAY, NOTES: WEDNESDAY TAKING GABAPENTIN 800 MG TABLET 1 CAPSULE ORALLY FOR PAIN TID, NOTES: 09/18/2019 08 TAKING LYRICA 200 MG CAPSULE 1 CAPSULE ORALLY Q8H TID MDD3, NOTES: 09/18/2019 08 TAKING ROBAXIN-750 750 MG TABLET 1 TABLET ORALLY Q8H PRN, NOTES: 09/17/2019 2300 NOT-TAKING WELLBUTRIN 100 MG TABLET 1 TABLET ORALLY TWICE A DAY NOT-TAKING MORPHINE SULFATE ER 15 MG TABLET EXTENDED RELEASE 1 TABLET ORALLY EVERY 12 HRS MDD2 NOT-TAKING OXYCODONE HCL 5 MG TABLET 1 TABLET NEEDED ORALLY Q8H PRN MDD3 #50 TAB SHOULD LAST 30 DAYS NOT-TAKING ABILIFY 5 MG TABLET 1 TABLET ORALLY ONCE A DAY NOT-TAKING BUPRENORPHINE HCL 300 MCG FILM 1 FILM TO THE GUM BUCALLY EVERY 12 HRS, NOTES: HAS NOT STARTED YET NOT-TAKING CYCLOBENZAPRINE HCL 10 MG TABLET DIRECTED ORALLY Q8H PRN PAIN #30 TAB SHOULD LAST 30 DAYS NOT-TAKING CLONIDINE HCL 0.1 MG TABLET 1 TABLET ORALLY Q8H PRN NOT-TAKING KETOROLAC TROMETHAMINE 10 MG TABLET 1 TABLET WITH FOOD OR MILK NEEDED ORALLY EVERY 6 HRS MEDICATION LIST REVIEWED AND RECONCILED WITH THE PATIENT PAST MEDICAL HISTORY DIABETES HYPERTENSION HYPERCHOLESTEREMIA OBESITY GERD (GASTROESOPHAGEAL REFLUX DISEASE) GASTRIC BYPASS ANXIETY BACK PAIN RIGHT HIP AND KNEE PAIN ALLERGIES SULFA (FOR ALLERGY USE ONLY): RASH - ALLERGY NSAIDS: GASTRIC BYPASS - CONTRAINDICATION SURGICAL HISTORY GASTRIC BYPASS 06/2015 BILAT CARPAL TUNNEL C SECTION CHOLECYSTECTOMY TONSILLECTOMY & ADENOIDECTOMY D&C 10/2017 ENDOSCOPY 11/2018 FAMILY HISTORY FATHER: , DIAGNOSED WITH UNSPECIFIED HEART DISEASE MOTHER: ALIVE, HYPERTENSION, DIABETES 2 BROTHER(S) . 1 SON(S) - HEALTHY. 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 HOSPITALIZATION/MAJOR DIAGNOSTIC PROCEDURE SURGERIES "FLUID ON LEGS" DEC OR 2018 KIDNEY INFECTION 05/18/2019 REVIEW OF SYSTEMS CONSTITUTIONAL: ANY RECENT FEVER NO . CHILLS NO . WEIGHT CHANGE OF UNKNOWN REASONS NO . GASTROENTEROLOGY: NEW UNEXPLAINABLE CHANGES IN BOWEL CONTROL NO . CONSTIPATION NO . GENITOURINARY: ANY NEW CHANGE IN BLADDER CONTROL? NO . NEUROLOGY: NEW ONSET DIZZINESS OR NEUROLOGICAL CHANGES NOT MENTIONED NO . NEW NUMBNESS OR PAIN PATTERNS NOT MENTIONED AND PERTINENT TO TODAY'S VISIT NO . CARDIOLOGY: NEW CHEST PRESSURE NO . NEW CHEST PAIN NO . RESPIRATORY: UNEXPLAINABLE COUGH NO . NEW SHORTNESS OF BREATH NO . VITAL SIGNS WT 300.2 LBS, HT 60.5 IN, BMI 57.66 INDEX, BP 132/68 MM HG, HR 86 /MIN, RR 18 /MIN, TEMP 96.4 F, OXYGEN SAT % 99%, NA INITIALS AW 1040. EXAMINATION GENERAL EXAMINATION: GENERAL AWAKE,ALERT ,PLEASANT . PSYCH AFFECT NORMAL . LUNGS: LUNG ARORA ARE CLEAR TO AUSCULTATION BILATERALLY. GOOD MOVEMENT OF AIR . HEART: S1, S2 IN A REGULAR RATE AND RHYTHM. NO SIGNIFICANT MURMURS, RUBS OR GALLOPS NOTED . LUMBAR:PALPATION: + FOR PAIN OVER L/S SPINE. + FOR PAIN OVER L/S PARASPINALS SPECIFIC POINT TENDERNESS NOTED OVER RIGHT L3-4, L4-5 FACET REGION WITH FACET LOADING.. DIAGNOSTIC TESTS REVIEWEDMRI L/S SPINE. 2019 . ASSESSMENTS SPONDYLOSIS WITHOUT MYELOPATHY OR RADICULOPATHY, LUMBAR REGION - M47.816 (PRIMARY) TREATMENT SPONDYLOSIS WITHOUT MYELOPATHY OR RADICULOPATHY, LUMBAR REGION NOTES: SCHEDULED RIGHT L3-4, L4-5 RADIOFREQUENCY. FOLLOW-UP WITH NURSE PRACTITIONER 2 WEEKS POST PROCEDURE. CONSIDER SURGICAL EVALUATION. PROCEDURE CODES FA211 ESTABILISHED PATIENT [facility] CHARGE DISPOSITION & COMMUNICATION FOLLOW UP POST PROCEDURE (REASON: RIGHT L3-4, L4-5 RADIOFREQUENCY.) ELECTRONICALLY SIGNED BY STEPHAN DRAKE ON 10/19/2019 AT 03:04 PM EDT DISCLAIMER : THIS IS A VISIT SUMMARY EXTRACTED FROM THE [facility] CHART. IT IS NOT A COPY OF THE [employer] PROGRESS NOTE. MTDD
== END ==
LOC: M PAIN 10:30
PROVIDERS: ATTEND Nurse Practitioner Family
DX: M47.816 Spondylosis without myelopathy or radiculopathy, lumbar region (principal)

== ENCOUNTER → 2019-11-02 | Outpatient (CLI) | payer MEDICARE ==
[~2019-11-02] MED LIST changes: +ACET1TAB55 PO; +AMIT75TA PO; -ASPI81TA85 PO; +ASPI81TA86 PO; +B-121KIT PO; +B-122500 PO; +BOSWPOW MC; +NYST1POW9 TOP; +OMEP40CA97 PO; +ONETAB20 PO; +PANT40TA29 PO; -PANT40TA3 PO; +POLYOPD OP; +ROBA750T4 PO; +SUMA100T2 PO; +VITAMIN D PO
== END ==
LOC: M LABSMTC 13:01
PROVIDERS: ATTEND Anesthesiology
DX: Z11.59 Encounter for screening for other viral diseases (principal)
CPT/HCPCS: C9803; U0003

== ENCOUNTER → 2019-11-07 | Outpatient (CLI) | payer MEDICARE ==
[~2019-11-07] MED LIST changes: +BUPIVACAINE HCL 0.25% 30ML VIAL As Ordered ONE; +ISOVUE-M 300 61% 15ML VIAL As Ordered ONE; +LIDOCAINE 1% SDV 30ML VIAL As Ordered ONE; +dexameTHASONE 10MG/1ML VIAL PRES.FREE (J1100 PER 1MG) As Ordered ONE
--- NOTE | 2019-11-07 15:35 | REP ---
Partial lumbar spine series: Four views . History: Injection procedure for pain. 1 minute and zero seconds of fluoroscopy time is reported. Findings: A sequence of four fluoroscopically obtained last image hold procedural spot radiographs of the lumbar spine document needle position and contrast injection associated with injection procedure. Electronically Signed by Biju Bui MD 11/07/2019 03:26 P
--- NOTE | 2019-11-09 01:29 | ECWPNPC ---
PATIENT NAME: STELLA TAVERAS : 1975 GENDER: FEMALE VISIT DATE: 11/07/2019 DISCHARGE DATE: 11/07/191552 VISIT LOCKED DATE TIME: PHYSICIAN: AMELIA LAI MD RESOURCE: AMELIA LAI MD REASON FOR APPOINTMENT 1. RT L3/L4, L4/5 STANDARD RF - PAT DONE HISTORY OF PRESENT ILLNESS GENERAL: -. FALL RISK SCREENING: SCREENING :NO FALLS REPORTED IN THE LAST YEAR PAIN SCREENING: PATIENT HAS A COMPLAINT OF ACUTE OR CHRONIC PAIN :YES LOCATION OF PAIN:LOW BACK, LEFT HIP, RIGHT HIP INTENSITY OF PAIN (SCALE OF 1 TO 10):10 WHAT DOES YOUR PAIN FEEL LIKE:SHARP, STABBING DURATION:CONSTANT PAIN IS INCREASED BY:ACTIVITIES PAIN IS DECREASED BY:OTHERS LYING DOWN NURSING NOTE: -. 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 :YES 10 YEARS AGO DO YOU TAKE A BLOOD THINNERS? :NO DO YOU HAVE ANY BLEEDING DISORDERS? :NO ANY NEW NUMBNESS OR WEAKNESS IN YOUR LEGS OR ARMS? :YES LEGS TINGLING INTERMITTENTLY FOR 1 WEEK ANY PACEMAKER,DEFIBRILLATOR, OR DORSAL COLUMN STIMULATOR? :NO DO YOU HAVE ANY RASHES OR OPEN SORES? :NO ARE YOU ALLERGIC TO IV DYE? :NO ARE YOU DIABETIC? :YES ANY NEW PROBLEMS WITH YOUR MEDICATIONS? :NO HAVE YOU RECEIVED A VACCINE IN THE PAST 30 DAYS? :NO DO YOU PLAN TO RECEIVE A VACCINE IN THE NEXT 21 DAYS? :NO DO YOU TAKE ANY IMMUNOSUPPRESSIVE MEDICATIONS? :NO ANY HISTORY OF SEIZURES? :NO ANY HISTORY OF CARDIAC ISSUES OR EVENTS? :NO DO YOU HAVE SLEEP APNEA? :YES DO YOU WEAR A CPAP?YES ANY RECENT HEAD INJURY? :NO DO YOU HAVE ANY NEW INFECTIONS? :NO IS THERE A CHANCE YOU COULD BE ? :NO ARE YOU BREAST FEEDING? :NO WHEN DID YOU LAST EAT? : 11/06/192199 WHEN DID YOU LAST DRINK? : 11/07/191129 WHAT DID YOU LAST DRINK? : WATER NAME OF PERSON DRIVING YOU HOME? : RENATO (S.O.) DO YOU HAVE ANY OTHER QUESTIONS OR CONCERNS? : NO CURRENT MEDICATIONS TAKING IRON 325 MGS 1 TAB ORAL DAILY, NOTES: 11/05 170 TAKING CYMBALTA 90 MG CAPSULE DELAYED RELEASE PARTICLES 1 CAPSULE ORALLY 30MG CAP AND 60 MG CAP DAILY, NOTES: 11/05 2129 TAKING VITAMIN D 1000 UNIT CAPSULE CAPSULE ORALLY ONCE A DAY, NOTES: 11/07 799 TAKING FLONASE 50 MCG/ACT SUSPENSION 1 SPRAY IN EACH NOSTRIL NASALLY ONCE A DAY NEEDED, NOTES: 11/05 TAKING SUMATRIPTAN SUCCINATE 50 MG TABLET 1 TABLET NEEDED ORALLY DIRECTED, NOTES: 11/07 799 TAKING COLACE 100 MG CAPSULE 1 CAPSULE NEEDED ORALLY 3X/DAY, NOTES: 11/07 799 TAKING SPIRONOLACTONE 25 MG TABLET 1 TABLET ORALLY DAILY, NOTES: 11/07 799 TAKING MISOPROSTOL 200 MCG TABLET 1 TABLET WITH MEALS AND AT BEDTIME ORALLY FOUR TIMES A DAY, NOTES: 11/07 799 TAKING FAMOTIDINE 20 MG TABLET DISINTEGRATING DIRECTED ORALLY BID, NOTES: 11/07 799 TAKING PRAMIPEXOLE DIHYDROCHLORIDE 0.25 MG TABLET 1 TABLET ORALLY BID, NOTES: 11/07 799 TAKING SUCRALFATE 1 GM TABLET 1 TABLET ON AN EMPTY STOMACH ORALLY FOUR TIMES DAILY, NOTES: 11/07 799 TAKING CETIRIZINE HCL 10 MG TABLET ORALLY ONCE A DAY, NOTES: 11/05 PM TAKING LOSARTAN POTASSIUM 25 MG TABLET ORALLY DAILY, NOTES: 11/07 799 TAKING MONTELUKAST SODIUM 10 MG TABLET 1 TABLET ORALLY ONCE A DAY, NOTES: 11/07 799 TAKING DITROPAN XL 10 MG TABLET EXTENDED RELEASE 24 HOUR 1 TABLET ORALLY ONCE A DAY, NOTES: 11/07 799 TAKING OMEPRAZOLE 40 MG CAPSULE DELAYED RELEASE 1 CAPSULE ORALLY 2 TIMES DAILY, NOTES: 11/07 799 TAKING VITAMIN B12 500 TABLET 500 MCG ORALLY DAILY, NOTES: 11/07 799 TAKING MULTIVITAMIN 1 TABLET CHEWABLE 1 TAB(S) ORALLY DAILY, NOTES: 11/07 799 TAKING CALCIUM CITRATE + 630 MG TABLET 2 TABLET WITH MEALS ORALLY TWICE A DAY, NOTES: 11/05 1699 TAKING LASIX 40 MG TABLET ORALLY DAILY, NOTES: 11/07 799 TAKING METFORMIN HCL 1000 MG TABLET 1 TABLET WITH MEALS ORALLY TWICE A DAY, NOTES: 11/05 1699 TAKING AMITRIPTYLINE HCL 25 MG TABLET 1 TABLET ORALLY ONCE A DAY, NOTES: 11/05 1699 TAKING GABAPENTIN 800 MG TABLET 1 CAPSULE ORALLY FOR PAIN TID, NOTES: 11/07 799 TAKING LYRICA 200 MG CAPSULE 1 CAPSULE ORALLY Q8H TID MDD3, NOTES: 11/07 799 TAKING ROBAXIN-750 750 MG TABLET 1 TABLET ORALLY Q8H PRN, NOTES: 11/04 NOT-TAKING WELLBUTRIN 100 MG TABLET 1 TABLET ORALLY TWICE A DAY NOT-TAKING MORPHINE SULFATE ER 15 MG TABLET EXTENDED RELEASE 1 TABLET ORALLY EVERY 12 HRS MDD2 NOT-TAKING OXYCODONE HCL 5 MG TABLET 1 TABLET NEEDED ORALLY Q8H PRN MDD3 #50 TAB SHOULD LAST 30 DAYS NOT-TAKING ABILIFY 5 MG TABLET 1 TABLET ORALLY ONCE A DAY NOT-TAKING BUPRENORPHINE HCL 300 MCG FILM 1 FILM TO THE GUM BUCALLY EVERY 12 HRS, NOTES: HAS NOT STARTED YET NOT-TAKING CYCLOBENZAPRINE HCL 10 MG TABLET DIRECTED ORALLY Q8H PRN PAIN #30 TAB SHOULD LAST 30 DAYS NOT-TAKING CLONIDINE HCL 0.1 MG TABLET 1 TABLET ORALLY Q8H PRN NOT-TAKING KETOROLAC TROMETHAMINE 10 MG TABLET 1 TABLET WITH FOOD OR MILK NEEDED ORALLY EVERY 6 HRS MEDICATION LIST REVIEWED AND RECONCILED WITH THE PATIENT PAST MEDICAL HISTORY DIABETES HYPERTENSION HYPERCHOLESTEREMIA OBESITY GERD (GASTROESOPHAGEAL REFLUX DISEASE) GASTRIC BYPASS ANXIETY BACK PAIN RIGHT HIP AND KNEE PAIN ALLERGIES SULFA (FOR ALLERGY USE ONLY): RASH - ALLERGY NSAIDS: GASTRIC BYPASS - CONTRAINDICATION SURGICAL HISTORY GASTRIC BYPASS 06/2015 BILAT CARPAL TUNNEL C SECTION CHOLECYSTECTOMY TONSILLECTOMY & ADENOIDECTOMY D&C 10/2017 ENDOSCOPY 11/2018 FAMILY HISTORY FATHER: , DIAGNOSED WITH UNSPECIFIED HEART DISEASE MOTHER: ALIVE, HYPERTENSION, DIABETES 2 BROTHER(S) . 1 SON(S) - HEALTHY. 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 SOCIAL HISTORY GENERAL: TOBACCO USE ARE YOU A:CURRENT SMOKER HOW OFTEN DO YOU SMOKE CIGARETTES?EVERY DAY HOW SOON AFTER YOU WAKE UP DO YOU SMOKE YOUR FIRST CIGARETTE?WITHIN 5 MIN HOW MANY CIGARETTES A DAY DO YOU SMOKE?31 OR MORE ARE YOU INTERESTED IN QUITTING?NOT READY TO QUIT PATIENT COUNSELED ON THE DANGERS OF TOBACCO USE AND URGED TO QUIT:09/15/2019 SMOKING CESSATION INFORMATION GIVEN08/16/2018 PAMPHLET GIVEN 08/16/18 LATEX QUESTIONNAIRE LATEX ALLERGY : HAVE YOU EVER DEVELOPED ANY TYPE OF REACTION AFTER HANDLING LATEX PRODUCTS SUCH RUBBER GLOVES, CONDOMS, DIAPHRAGMS, BALLOONS, SOCKS, OR UNDERWEAR?NO LATEX ALLERGY : HAVE YOU EVER DEVELOPED ANY TYPE OF REACTION DURING OR AFTER DENTAL APPOINTMENT, VAGINAL/RECTAL EXAMINATION, SURGICAL PROCEDURE, OR ANY OTHER EXPOSURE?NO DATE ASKED : 09/04/2019 LATEX RISK : HAVE YOU EVER HAD ANY DIFFICULTY BREATHING OR HIVES AFTER EATING OR HANDLING ANY FRUITS, OR VEGETABLES; SUCH KIWI, BANANAS, STONE FRUITS, OR CHESTNUTSNO LATEX RISK : DO YOU HAVE A PREVIOUS PERSONAL HISTORY OF MORE THAN NINE SURGERIES, SPINA BIFIDA, OR REPEATED CATHERIZATIONS? NO LATEX RISK : ARE YOU FREQUENTLY EXPOSED TO LATEX PRODUCTS IN YOUR OCCUPATION?NO ALCOHOL SCREENING DID YOU HAVE A DRINK CONTAINING ALCOHOL IN THE PAST YEAR?NO POINTS0 INTERPRETATIONNEGATIVE RECREATIONAL DRUG USE DRUG USE?NO CAFFEINE CAFFEINE USE?YES HOW OFTEN AND HOW MUCH? 2 BOTTLES [place]W/DAY BUDDHISM [id number] NONE LANGUAGE LANGUAGES SPOKEN:[place] AND [place] EDUCATION LEVEL OF EDUCATION:NOT FINISHED COLLEGE LEARNING BARRIERS / SPECIAL NEEDS CHANGE FROM LAST VISIT?NO 09/15/19 BARRIERS TO LEARNING?NO HEARING IMPAIRED?NO VISION IMPAIRED?YES WEARS GLASSES COGNITIVELY IMPAIRED?NO :CORRECTIVE LENSES READINESS TO LEARN?YES LEARNING PREFERENCES?NO LEARNING CAPABILITIES PRESENT?YES EMOTIONAL BARRIERS?NO SPECIAL DEVICES?YES :CANE, WALKER MOTORIZED SQUAD SERGEANT NEEDED?NO DOMESTIC VIOLENCE DO YOU FEEL SAFE IN YOUR ENVIRONMENT?YES OCCUPATION: DISABLED. DIET: REGULAR. EXERCISE: WALKS. MARITAL STATUS: SINGLE. OTHERS AT HOME: CHILD, OTHER NON-RELATIVE. PAIN CLINIC PFS, CLERGY, PUBLIC HEALTH REFERRALS PFS REFERRAL NEEDED?NO CLERGY REFERRAL NEEDED?NO PUBLIC HEALTH REFERRAL NEEDED?NO WAS THE PROVIDER NOTIFIED OF ANY PERTINENT INFO? N/A HAS THE PATIENT BEEN EDUCATED REGARDING HIS/HER PLAN OF CARE?YES HAS THE PATIENT BEEN EDUCATED REGARDING PAIN, THE RISK FOR PAIN, THE IMPORTANCE OF EFFECTIVE PAIN MANAGEMENT, AND THE PAIN ASSESSMENT PROCESS?YES ADVANCE DIRECTIVE ADVANCE DIRECTIVE DISCUSSED WITH PATIENT:YES HCP - ARNULFO TAVERAS [phone] [facility]MAJOR DIAGNOSTIC PROCEDURE SURGERIES "FLUID ON LEGS" DEC OR 2018 KIDNEY INFECTION 05/18/2019 VITAL SIGNS WT 301.6 LBS, HT 60.5 IN, BMI 57.93 INDEX, BP 130/66 MM HG, HR 94 /MIN, RR 18 /MIN, TEMP 98.2 F, OXYGEN SAT % 98%, SAFE IN ENV? (Y/N) YES, NA INITIALS SC 13:30, REVIEWED BY: MT. EXAMINATION GENERAL EXAMINATION: THE PATIENT IS ALERT, ORIENTED TIMES THREE AND COOPERATIVE. HEART SHOWS REGULAR RHYTHM, NO MURMURS AND NO GALLOPS. LUNGS ARE CLEAR TO AUSCULTATION. ASSESSMENTS SPONDYLOSIS WITHOUT MYELOPATHY OR RADICULOPATHY, LUMBAR REGION - M47.816 (PRIMARY) TREATMENT SPONDYLOSIS WITHOUT MYELOPATHY OR RADICULOPATHY, LUMBAR REGION LAB: FINGERSTICK BLOOD SUGAR (ORDERED FOR 11/07/2019) [facility] FACET BLOCK (PAIN)[id number] PROCEDURES PAIN NURSING RECORD PRE-PROCEDURE IV SITE N/A PROCEDURE IN ROOM 1434, PHYSICIAN IN ROOM 1502, START 1505, FINISH 1525, PHYSICIAN OUT OF ROOM 1530, OUT OF ROOM 1535, STEROID DEXAMETHASONE, O2 RA, ECG NORMAL SINUS, PATIENT SHIELDED YES, SAFETY STRAP YES, PREP CHLOROPREP, IV INFUSED N/A, DRESSING TEGADERM LOC: IN ROOM 1434, PHYSICIAN IN ROOM 1502, START 1505, STEROID DEXAMETHASONE, O2 RA, ECG NORMAL SINUS, PATIENT SHIELDED YES, SAFETY STRAP YES, PREP CHLOROPREP, IV INFUSED N/A, DRESSING TEGADERM RESP: IN ROOM 1434, PHYSICIAN IN ROOM 1502, START 1505, STEROID DEXAMETHASONE, O2 RA, ECG NORMAL SINUS, PATIENT SHIELDED YES, SAFETY STRAP YES, PREP CHLOROPREP, IV INFUSED N/A, DRESSING TEGADERM COLOR: LYLY PRATT 11/07/2019 2:34:20 PM > 1. PINK SKIN: LYLY PRATT 11/07/2019 2:34:20 PM > 1. WARM, DRY POSITION: LYLY PRATT 11/07/2019 2:34:20 PM > , 1. ALERT, ORIENTED VITALS: LYLY PRATT 11/07/2019 2:36:20 PM >109/69, 82, 16, 98% RA LYLY PRATT 11/07/2019 2:45:35 PM > 104/70, 77, 16, 98%RA LYLY PRATT 11/07/2019 2:51:22 PM > 107/74, 85, 16, 98% RA LYLY PRATT 11/07/2019 3:07:27 PM > 108/71, 83, 16, 98% RA LYLY PRATT 11/07/2019 3:40:25 PM > POST PROCEDURE 122/85, 85, 16, 98% RA DISCHARGE: POST PAIN 08/26, DRESSING SITE DRY AND INTACT, IV N/A, GAIT STEADY, TEACHING COMPLETED, PATIENT ACKNOWLEDGES UNDERSTANDING YES, PATIENT DISCHARGED AT 1550 PN RADIOFREQUENCY DATE OF PROCEDURE 11/07/2019 THERMO LESION RADIOFREQUENCY > 80 DEGREES : STANDARD - THERMO LESION > 80*. CURVE NEEDLE SIDE: : RIGHT LEVELS: : L3-L4, L4-L5 NEEDLE/CATHETER/GAUGE: : 18 CANULA LENGTH: : 145 MM ACTIVE TIP: : 10 MM GROUNDING PAD PLACED ON AFFECTED SIDE (MUSCULAR AREA): : LUMBAR (POSTERIOR UPPER THIGH) RIGHT THIGH 1 ST LEVEL: : L2,INITAL POSTIVE SENSORY RESPONE (50 HZ) 0.2,MOTOR RESPONSE (2 HZ-UP TO 3 VOLTS) 3.0 ,PRE-LOCAL IMPEDENCE READING OHMS 223 ,POST-LOCAL IMPEDENCE READING OHMS 195 ,DURING RF IMPEDENCE READING OHMS 182 , 2 ND LEVEL: : L3,INITIAL POSITIVE SENSORY RESPONSE (50 HZ) 0.1,MOTOR RESPONSE (2 HZ- UP TO 3 VOLTS) 3.0 ,PRE-LOCAL IMPEDENCE READING OHMS 399 ,POST-LOCAL IMEPEDENCE READING OHMS 279 ,DURING RF IMPEDENCE READING OHMS 261 , 3 RD LEVEL: : L4,INITIAL POSITIVE SENSORY RESPONSE (50 HZ) 0.2,MOTOR RESPONSE (2HZ- UP TO 3 VOLTS) 3.0 ,PRE- LOCAL IMPEDENCE READING OHMS 280 ,POST-LOCAL IMPEDENCE READING OHMS 187 ,DURING RF IMPEDENCE READING OHMS 160 , PRE PROCEDURE DIAGNOSES 1. LUMBAR SPONDYLOSIS. 2. LUMBOSACRAL SPONDYLOSIS POST PROCEDURE DIAGNOSES 1. LUMBAR SPONDYLOSIS. 2. LUMBOSACRAL SPONDYLOSIS PROCEDURE RIGHT L3-L4 AND RIGHT L4-L5 LUMBAR FACET RADIOFREQUENCY SURGEON DR. AMELIA LAI QUALITY CONTROL SUPERVISOR NONE ANESTHESIA LOCAL PRE PROCEDURE REPORT THE PATIENT HAS HISTORY OF CHRONIC LOW BACK PAIN. I EVALUATED THE PATIENT AND REVIEWED THE CHART. I WENT OVER THE RISKS, ALTERNATIVES, AND BENEFITS ASSOCIATED WITH THIS PROCEDURE. I DISCUSSED THAT THE USE OF STEROIDS MAY CONTRIBUTE TO IMMUNOSUPPRESSION OF THE PATIENT'S BODY AGAINST INFECTIONS SUCH COVID-19. THE PATIENT IS AWARE OF THE POTENTIAL COMPLICATIONS ASSOCIATED WITH THIS VIRUS, INCLUDING, BUT NOT LIMITED TO, . THE PATIENT WOULD LIKE TO PROCEED AND GIVE CONSENT TO PERFORMED THE PROCEDURE. THE PATIENT DENIES UNEXPLAINABLE WEIGHT LOSS, FEVER, CHILLS, OR NEW CHANGES IN URINARY OR BOWEL CONTROL. THE PATIENT IS COVID-19 NEGATIVE DESCRIPTION OF PROCEDURE THE PATIENT WAS BROUGHT TO THE PROCEDURE ROOM AND PLACED IN THE PRONE POSITION. THE LUMBOSACRAL AREA WAS CLEANED WITH CHLORAPREP SOLUTION AND DRAPED ASEPTICALLY. THE PROCEDURE WAS DONE UNDER STERILE CONDITIONS. I CHECKED LATERALITY AND THE LEVEL WHERE THE PROCEDURE WAS GOING TO BE PERFORMED WITH THE PATIENT AND THE SUPPORTING STAFF AT THE MOMENT OF THE TIME OUT IN THE PROCEDURE ROOM. UNDER FLUOROSCOPIC GUIDANCE, TARGETS WERE SELECTED AT THE INTERSECTION OF THE RIGHT TRANSVERSE PROCESS OF L3, L4 AND L5 WITH ITS RESPECTIVE SUPERIOR ARTICULAR PROCESS. LIDOCAINE WAS USED TO NUMB THE SKIN AND THE SUBCUTANEOUS TISSUE BELOW IT. RADIOFREQUENCY NEEDLES 18-GAUGE, 145 MM, LONG WITH 10 MM ACTIVE CURVE TIP WERE ADVANCED UNDER FLUOROSCOPIC GUIDANCE AND FOLLOWING PATIENT FEEDBACK UNTIL THE TARGET AREA WAS REACHED. POSITION OF THE NEEDLES WAS VERIFIED WITH AP AND LATERAL VIEWS. AFTER PROPER POSITION OF THE NEEDLE WAS ACHIEVED, WE WORKED WITH THE RIGHT SELECTED MEDIAN BRANCHES OF L2, L3 AND L4. WE MEASURED THE CORRESPONDING IMPEDANCES, SENSORY STIMULATION AND MOTOR RESPONSES INDICATED IN THE RADIOFREQUENCY WORKSHEET. POSITION OF THE NEEDLES WAS VERIFIED AGAIN WITH AP AND LATERAL VIEWS. LIDOCAINE 1%, 2 ML, WAS INJECTED AT EACH LEVEL. RADIOFREQUENCY WAS DONE AT EACH LEVEL AT 80 DEGREES FOR 90 SECONDS. AFTER RADIOFREQUENCY WAS DONE, THE PATIENT RECEIVED BUPIVACAINE 0.125%, 1 ML, WITH DEXAMETHASONE 3 MG AT EACH SITE. THE MEDICATIONS WERE VERIFIED WITH THE NURSE. THERE WAS NO EVIDENCE OF BLOOD, PARESTHESIA OR CEREBROSPINAL FLUID DURING THE PROCEDURE. THE PATIENT WAS SENT TO THE RECOVERY ROOM. THE PATIENT WAS MOVING THE EXTREMITIES AND DOING WELL. THERE WAS NO COMPLICATION DURING THE PROCEDURE. ESTIMATED BLOOD LOSS WAS LESS THAN 5 ML. FLUOROSCOPY TIME WAS 1 MINUTE POST PROCEDURE NOTE THE PROCEDURE DONE WAS DISCUSSED WITH THE PATIENT. THE PATIENT WILL BE SEEN IN A FOLLOW UP IN THE NEXT FEW WEEKS. I AM LOOKING FOR LONG LASTING PAIN RELIEF FOR THE PATIENT WITH THIS INTERVENTION. INSTRUCTIONS WERE GIVEN, QUESTIONS WERE ANSWERED, AND THE PATIENT EXPRESSED UNDERSTANDING AND AGREES WITH THE PLAN. THE PATIENT IS AWARE TO STAY HOME FOR THE NEXT WEEK, IF POSSIBLE, DUE TO COVID-19. I, FANY ESPINAL, DOCUMENTED THE ABOVE INFORMATION ACTING A SCRIBE FOR DR. LAI. I HAVE REVIEWED THE ABOVE DOCUMENT, WRITTEN BY FANY ESPINAL, ICT DEVELOPER, AND I VERIFY THAT IT IS ACCURATE PROCEDURE CODES 98155 DESTROY LUMB/SAC FACET JNT, [place]IF[place]ERS: [place] [address] DESTROY L/S FACET JNT ADDL, MODIFIERS: RT DISPOSITION & COMMUNICATION FOLLOW UP F/UP WITH HYDRAULIC MODELING ENGINEER (REASON: POST STANDARD RF RT L3-L4, L4-L5) ELECTRONICALLY SIGNED BY AMELIA LAI MD, MD ON 11/08/2019 AT 12:20 PM EDT DISCLAIMER : THIS IS A VISIT SUMMARY EXTRACTED FROM THE [employer] CHART. IT IS NOT A COPY OF THE [employer] PROGRESS NOTE. MTDD
== END ==
LOC: M PAIN 13:30
PROVIDERS: ATTEND Anesthesiology
DX: M47.816 Spondylosis without myelopathy or radiculopathy, lumbar region (principal)
CPT/HCPCS: 64635; 64636; J1100; Q9967

== ENCOUNTER → 2019-11-14 | Outpatient (POV) | payer MEDICARE ==
[~2019-11-14] MED LIST changes: -BUPIVACAINE HCL 0.25% 30ML VIAL As Ordered ONE; -ISOVUE-M 300 61% 15ML VIAL As Ordered ONE; -LIDOCAINE 1% SDV 30ML VIAL As Ordered ONE; -dexameTHASONE 10MG/1ML VIAL PRES.FREE (J1100 PER 1MG) As Ordered ONE
== END ==
LOC: M PAIN 14:00
PROVIDERS: ATTEND Nurse Practitioner Family
DX: M79.18 Myalgia, other site (principal)

== ENCOUNTER 2019-12-17 10:28 | Emergency (ER) | payer MEDICARE ==
[~2019-12-17] VITALS: Ht 154.9 cm; Wt 137.8 kg
[~2019-12-17 10:28] MED LIST changes: -ACET1TAB55 PO; -AMIT75TA PO; -B-121KIT PO; -B-122500 PO; -BOSWPOW MC; -NYST1POW9 TOP; -OMEP40CA97 PO; -ONETAB20 PO; -POLYOPD OP; -ROBA750T4 PO; -SUMA100T2 PO; -VITAMIN D PO
[2019-12-17] MEDS ORDERED: SUMA100T2 PO (10:56)
[2019-12-17] MEDS ORDERED: ONETAB20 PO (10:56)
[2019-12-17] MEDS ORDERED: POLYOPD OP (10:56)
[2019-12-17] MEDS ORDERED: LYRI200C PO (10:56)
[2019-12-17] MEDS ORDERED: ROBA750T4 PO (10:56)
[2019-12-17] MEDS ORDERED: OMEP40CA97 PO (10:56)
[2019-12-17] MEDS ORDERED: BUSP10TA PO (10:56)
[2019-12-17] MEDS ORDERED: B-122500 PO (10:56)
[2019-12-17] MEDS ORDERED: ACET1TAB55 PO (10:56)
[2019-12-17] MEDS ORDERED: SPIR-10 PO (10:56)
[2019-12-17] MEDS ORDERED: BOSWPOW MC (10:56)
[2019-12-17] MEDS ORDERED: TRAM50TA2 PO (13:02)
[2019-12-17 13:12] VITALS: BP 115/64
[2019-12-17] MEDS ORDERED: diazePAM 5 MG TAB PO ONE (13:15)
[2019-12-17] MEDS ORDERED: PERCOCET 5MG/325MG TAB PO ONE (13:15)
--- NOTE | 2020-01-12 15:10 | REP ---
LEFT HIP SERIES CLINICAL: Nontraumatic left hip pain. TECHNIQUE: Neutral and frog lateral views of the left hip. FINDINGS: Osseous structures, joint spaces, and surrounding soft tissues are normal and age appropriate. No acute fracture or dislocation. No overt arthritic changes. IMPRESSION: Age appropriate left hip radiographs. MTDD
[2020-01-30] MEDS ORDERED: AMIT75TA PO (13:56)
[2020-01-30] MEDS ORDERED: B-121KIT PO (14:00)
[2020-01-30] MEDS ORDERED: NYST1POW9 TOP (16:19)
[2020-01-30] MEDS ORDERED: VITAMIN D PO (16:19)
== END 2019-12-17 13:21 | disposition home or self-care (01) ==
LOC: M ED 10:28
DX: M16.12 Unilateral primary osteoarthritis, left hip (principal); I10 Essential (primary) hypertension; J44.9 Chronic obstructive pulmonary disease, unspecified; G43.909 Migraine, unspecified, not intractable, without status migrainosus; Z98.84 Bariatric surgery status; Z79.899 Other long term (current) drug therapy; Z79.84 Long term (current) use of oral hypoglycemic drugs; Z88.1 Allergy status to other antibiotic agents; Z88.2 Allergy status to sulfonamides; Z88.8 Allergy status to other drugs, medicaments and biological substances

== ENCOUNTER → 2019-12-22 | Outpatient (CLI) | payer MEDICARE ==
[~2019-12-22] MED LIST changes: +ACET1TAB55 PO; +AMIT75TA PO; +B-121KIT PO; +B-122500 PO; +BOSWPOW MC; +NYST1POW9 TOP; +OMEP40CA97 PO; +ONETAB20 PO; +POLYOPD OP; +ROBA750T4 PO; +SUMA100T2 PO; +VITAMIN D PO
== END ==
LOC: M PAIN 13:36
PROVIDERS: ATTEND Nurse Practitioner Family
DX: M48.07 Spinal stenosis, lumbosacral region (principal); Z79.891 Long term (current) use of opiate analgesic

== ENCOUNTER → 2020-01-17 | Outpatient (CLI) | payer MEDICARE ==
[2020-01-17 17:20] LABS: HEMOGLOBIN 13.1 g/dl (12.0-15.5); MEAN CORPUSCULAR HEMOGLOBIN 31.3 pg (27.0-33.0); MEAN CORPUSCULAR HGB CONC 33.6 g/dl (32.0-36.5); MEAN CORPUSCULAR VOLUME 93.3 fl (80.0-96.0); PLATELET COUNT, AUTOMATED 344 10^3/uL (150-450); RED BLOOD COUNT 4.18 10^6/uL (4.00-5.40); WHITE BLOOD COUNT 17.1 10^3/uL (4.0-10.0)
[2020-01-17 18:05] LABS: ALBUMIN 3.4 GM/DL (3.2-5.2); ALT/SGPT 24 U/L (12-78); BILIRUBIN,TOTAL 0.3 MG/DL (0.2-1.0); BLOOD UREA NITROGEN 8 MG/DL (7-18); CARBON DIOXIDE LEVEL 23 MEQ/L (21-32); CHLORIDE LEVEL 110 MEQ/L (98-107); CREATININE FOR GFR 0.83 MG/DL (0.55-1.30); GLOMERULAR FILTRATION RATE > 60.0 (>58); GLUCOSE, FASTING 102 MG/DL (70-100); POTASSIUM SERUM 3.6 MEQ/L (3.5-5.1); SODIUM LEVEL 140 MEQ/L (136-145); TOTAL PROTEIN 7.2 GM/DL (6.4-8.2)
== END ==
LOC: M LAB 16:17
PROVIDERS: ATTEND Family Medicine
DX: R53.83 Other fatigue (principal)

== ENCOUNTER → 2020-01-31 | Outpatient (CLI) | payer MEDICARE ==
--- NOTE | 2020-02-09 15:46 | ECWPNPC ---
PATIENT NAME: TSELLA TAVERAS : 1975 GENDER: FEMALE VISIT DATE: 01/31/2020 DISCHARGE DATE: 01/31/20 1557 VISIT LOCKED DATE TIME: PHYSICIAN: PATRICIA MCNAMARA RESOURCE: PATRICIA MCNAMARA REASON FOR APPOINTMENT 1. BACK PAIN/MED MGMT HISTORY OF PRESENT ILLNESS DEPRESSION SCREENING: PHQ-2 (2015 EDITION) LITTLE INTEREST OR PLEASURE IN DOING THINGS?NOT AT ALL FEELING DOWN, DEPRESSED, OR HOPELESS?NOT AT ALL TOTAL SCORE0 HERE FOR F/U OF CHRONIC LOW BACK PAIN.STATES THAT TYLENOL #4 IS HELPFUL AT REDUCING PAIN FOR ACUTE FLARE UPS.DENIES SIDE EFFECTS.HAS FORGOTTEN TO BRING IN MEDICATION TODAY.STATES LAST NIGHT WAS LAST DOSE OF TYLENOL #4. 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 :YES HAD IT BACK IN 2009 DO YOU TAKE A BLOOD THINNERS? :NO DO YOU HAVE ANY BLEEDING DISORDERS? :NO ANY NEW NUMBNESS OR WEAKNESS IN YOUR LEGS OR ARMS? :YES BOTH LEGS AND ARMS ANY PACEMAKER,DEFIBRILLATOR, OR DORSAL COLUMN STIMULATOR? :NO DO YOU HAVE ANY RASHES OR OPEN SORES? :NO ARE YOU ALLERGIC TO IV DYE? :NO ARE YOU DIABETIC? :YES ANY NEW PROBLEMS WITH YOUR MEDICATIONS? :NO HAVE YOU RECEIVED A VACCINE IN THE PAST 30 DAYS? :NO DO YOU PLAN TO RECEIVE A VACCINE IN THE NEXT 21 DAYS? :YES YES TO FLU VAC AT SOME POINT SHE WILL GET IT DO YOU NEED ANY PRESCRIPTION? :NO DO YOU TAKE ANY IMMUNOSUPPRESSIVE MEDICATIONS? :NO IS THERE A CHANCE YOU COULD BE ? :NO ARE YOU BREAST FEEDING? :NO GENERAL: - -. FALL RISK SCREENING: SCREENING :TWO OR MORE FALLS WITHOUT INJURY IN THE PAST YEAR FELL 2 NIGHTS AGO PAIN SCREENING: PATIENT HAS A COMPLAINT OF ACUTE OR CHRONIC PAIN :YES LOCATION OF PAIN:LOW BACK, LEFT HIP, LEG(S), FEET PAIN IN HIPS AND IN TOES WELL INTENSITY OF PAIN (SCALE OF 1 TO 10):10 WHAT DOES YOUR PAIN FEEL LIKE:STABBING, THROBBING DURATION:CONTINOUS, CONSTANT PAIN IS INCREASED BY:ACTIVITIES PAIN IS DECREASED BY:USE OF PAIN MEDICATIONS, OTHERS NURSING NOTE: - -. CURRENT MEDICATIONS TAKING IRON 325 MGS 1 TAB ORAL DAILY, NOTES: 11/05 1700 TAKING CYMBALTA 90 MG CAPSULE DELAYED RELEASE PARTICLES 1 CAPSULE ORALLY 30MG CAP AND 60 MG CAP DAILY, NOTES: 11/05 2129 TAKING VITAMIN D 1000 UNIT CAPSULE CAPSULE ORALLY ONCE A DAY, NOTES: 11/07 799 TAKING FLONASE 50 MCG/ACT SUSPENSION 1 SPRAY IN EACH NOSTRIL NASALLY ONCE A DAY NEEDED, NOTES: 11/05 TAKING SUMATRIPTAN SUCCINATE 50 MG TABLET 1 TABLET NEEDED ORALLY DIRECTED, NOTES: 11/07 799 TAKING COLACE 100 MG CAPSULE 1 CAPSULE NEEDED ORALLY 3X/DAY, NOTES: 11/07 799 TAKING SPIRONOLACTONE 25 MG TABLET 1 TABLET ORALLY DAILY, NOTES: 11/07 799 TAKING MISOPROSTOL 200 MCG TABLET 1 TABLET WITH MEALS AND AT BEDTIME ORALLY FOUR TIMES A DAY, NOTES: 11/07 799 TAKING FAMOTIDINE 20 MG TABLET DISINTEGRATING DIRECTED ORALLY BID, NOTES: 11/07 799 TAKING PRAMIPEXOLE DIHYDROCHLORIDE 0.25 MG TABLET 1 TABLET ORALLY BID, NOTES: 11/07 799 TAKING SUCRALFATE 1 GM TABLET 1 TABLET ON AN EMPTY STOMACH ORALLY FOUR TIMES DAILY, NOTES: 11/07 799 TAKING CETIRIZINE HCL 10 MG TABLET ORALLY ONCE A DAY, NOTES: 11/05 PM TAKING LOSARTAN POTASSIUM 25 MG TABLET ORALLY DAILY, NOTES: 11/07 799 TAKING MONTELUKAST SODIUM 10 MG TABLET 1 TABLET ORALLY ONCE A DAY, NOTES: 11/07 799 TAKING DITROPAN XL 10 MG TABLET EXTENDED RELEASE 24 HOUR 1 TABLET ORALLY ONCE A DAY, NOTES: 11/07 799 TAKING OMEPRAZOLE 40 MG CAPSULE DELAYED RELEASE 1 CAPSULE ORALLY 2 TIMES DAILY, NOTES: 11/07 799 TAKING VITAMIN B12 500 TABLET 500 MCG ORALLY DAILY, NOTES: 11/07 799 TAKING MULTIVITAMIN 1 TABLET CHEWABLE 1 TAB(S) ORALLY DAILY, NOTES: 11/07 799 TAKING CALCIUM CITRATE + 630 MG TABLET 2 TABLET WITH MEALS ORALLY TWICE A DAY, NOTES: 11/05 1699 TAKING LASIX 40 MG TABLET ORALLY DAILY, NOTES: 11/07 799 TAKING METFORMIN HCL 1000 MG TABLET 1 TABLET WITH MEALS ORALLY TWICE A DAY, NOTES: 11/05 1699 TAKING AMITRIPTYLINE HCL 25 MG TABLET 1 TABLET ORALLY ONCE A DAY, NOTES: 11/05 1699 TAKING GABAPENTIN 800 MG TABLET 1 CAPSULE ORALLY FOR PAIN TID, NOTES: 11/07 799 TAKING LYRICA 200 MG CAPSULE 1 CAPSULE ORALLY Q8H TID MDD3, NOTES: 11/06 0800 TAKING ROBAXIN-750 750 MG TABLET 1 TABLET ORALLY Q8H PRN, NOTES: 11/04 TAKING ACETAMINOPHEN-CODEINE #4 300-60 MG TABLET 1 TABLET NEEDED ORALLY EVERY 6 HRS TAKING BUPRENORPHINE HCL 300 MCG FILM 1 FILM TO THE GUM BUCALLY EVERY 12 HRS, NOTES: HAS NOT STARTED YET TAKING CLONIDINE HCL 0.1 MG TABLET 1 TABLET ORALLY Q8H PRN TAKING KETOROLAC TROMETHAMINE 10 MG TABLET 1 TABLET WITH FOOD OR MILK NEEDED ORALLY EVERY 6 HRS NOT-TAKING WELLBUTRIN 100 MG TABLET 1 TABLET ORALLY TWICE A DAY NOT-TAKING MORPHINE SULFATE ER 15 MG TABLET EXTENDED RELEASE 1 TABLET ORALLY EVERY 12 HRS MDD2 NOT-TAKING OXYCODONE HCL 5 MG TABLET 1 TABLET NEEDED ORALLY Q8H PRN MDD3 #50 TAB SHOULD LAST 30 DAYS NOT-TAKING ABILIFY 5 MG TABLET 1 TABLET ORALLY ONCE A DAY NOT-TAKING CYCLOBENZAPRINE HCL 10 MG TABLET DIRECTED ORALLY Q8H PRN PAIN #30 TAB SHOULD LAST 30 DAYS MEDICATION LIST REVIEWED AND RECONCILED WITH THE PATIENT PAST MEDICAL HISTORY DIABETES HYPERTENSION HYPERCHOLESTEREMIA OBESITY GERD (GASTROESOPHAGEAL REFLUX DISEASE) GASTRIC BYPASS ANXIETY BACK PAIN RIGHT HIP AND KNEE PAIN ALLERGIES SULFA (FOR ALLERGY USE ONLY): RASH - ALLERGY NSAIDS: GASTRIC BYPASS - CONTRAINDICATION SURGICAL HISTORY GASTRIC BYPASS 06/2015 BILAT CARPAL TUNNEL C SECTION CHOLECYSTECTOMY TONSILLECTOMY & ADENOIDECTOMY D&C 10/2017 ENDOSCOPY 11/2018 FAMILY HISTORY FATHER: , DIAGNOSED WITH UNSPECIFIED HEART DISEASE MOTHER: ALIVE, HYPERTENSION, DIABETES 2 BROTHER(S) . 1 SON(S) - HEALTHY. 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 SOCIAL HISTORY GENERAL: TOBACCO USE ARE YOU A:CURRENT SMOKER HOW OFTEN DO YOU SMOKE CIGARETTES?EVERY DAY HOW SOON AFTER YOU WAKE UP DO YOU SMOKE YOUR FIRST CIGARETTE?WITHIN 5 MIN HOW MANY CIGARETTES A DAY DO YOU SMOKE?31 OR MORE ARE YOU INTERESTED IN QUITTING?NOT READY TO QUIT PATIENT COUNSELED ON THE DANGERS OF TOBACCO USE AND URGED TO QUIT:09/15/2019 SMOKING CESSATION INFORMATION GIVEN08/16/2018 PAMPHLET GIVEN 08/16/18 LATEX QUESTIONNAIRE LATEX ALLERGY : HAVE YOU EVER DEVELOPED ANY TYPE OF REACTION AFTER HANDLING LATEX PRODUCTS SUCH RUBBER GLOVES, CONDOMS, DIAPHRAGMS, BALLOONS, SOCKS, OR UNDERWEAR?NO LATEX ALLERGY : HAVE YOU EVER DEVELOPED ANY TYPE OF REACTION DURING OR AFTER DENTAL APPOINTMENT, VAGINAL/RECTAL EXAMINATION, SURGICAL PROCEDURE, OR ANY OTHER EXPOSURE?NO LATEX RISK : HAVE YOU EVER HAD ANY DIFFICULTY BREATHING OR HIVES AFTER EATING OR HANDLING ANY FRUITS, OR VEGETABLES; SUCH KIWI, BANANAS, STONE FRUITS, OR CHESTNUTSNO LATEX RISK : DO YOU HAVE A PREVIOUS PERSONAL HISTORY OF MORE THAN NINE SURGERIES, SPINA BIFIDA, OR REPEATED CATHERIZATIONS? NO LATEX RISK : ARE YOU FREQUENTLY EXPOSED TO LATEX PRODUCTS IN YOUR OCCUPATION?NO DATE ASKED : 01/31/2020 ALCOHOL SCREENING DID YOU HAVE A DRINK CONTAINING ALCOHOL IN THE PAST YEAR?NO POINTS0 INTERPRETATIONNEGATIVE RECREATIONAL DRUG USE DRUG USE?NO CAFFEINE CAFFEINE USE?YES HOW OFTEN AND HOW MUCH? 2 BOTTLES [place] DEW/DAY YAZDANISM [id number] NONE LANGUAGE LANGUAGES SPOKEN:[place] EDUCATION LEVEL OF EDUCATION:NOT FINISHED COLLEGE LEARNING BARRIERS / SPECIAL NEEDS CHANGE FROM LAST VISIT?NO 09/15/19 BARRIERS TO LEARNING?NO HEARING IMPAIRED?NO VISION IMPAIRED?YES WEARS GLASSES COGNITIVELY IMPAIRED?NO :CORRECTIVE LENSES READINESS TO LEARN?YES LEARNING PREFERENCES?NO LEARNING CAPABILITIES PRESENT?YES EMOTIONAL BARRIERS?NO SPECIAL DEVICES?YES :CANE, WALKER LENS EXAMINER NEEDED?NO DOMESTIC VIOLENCE DO YOU FEEL SAFE IN YOUR ENVIRONMENT?YES OCCUPATION: DISABLED. DIET: REGULAR. EXERCISE: WALKS. MARITAL STATUS: SINGLE. OTHERS AT HOME: CHILD, OTHER NON-RELATIVE. PAIN CLINIC PFS, CLERGY, PUBLIC HEALTH REFERRALS PFS REFERRAL NEEDED?NO CLERGY REFERRAL NEEDED?NO PUBLIC HEALTH REFERRAL NEEDED?NO WAS THE PROVIDER NOTIFIED OF ANY PERTINENT INFO? N/A HAS THE PATIENT BEEN EDUCATED REGARDING HIS/HER PLAN OF CARE?YES HAS THE PATIENT BEEN EDUCATED REGARDING PAIN, THE RISK FOR PAIN, THE IMPORTANCE OF EFFECTIVE PAIN MANAGEMENT, AND THE PAIN ASSESSMENT PROCESS?YES ADVANCE DIRECTIVE ADVANCE DIRECTIVE DISCUSSED WITH PATIENT:YES HCP - ARNULFO TAVERAS [phone] AND [facility] H[facility]PITALIZATION/MAJOR DIAGNOSTIC PROCEDURE SURGERIES "FLUID ON LEGS" DEC OR 2018 KIDNEY INFECTION 05/18/2019 REVIEW OF SYSTEMS CONSTITUTIONAL: ANY RECENT FEVER NO . CHILLS NO . WEIGHT CHANGE OF UNKNOWN REASONS NO . GASTROENTEROLOGY: NEW UNEXPLAINABLE CHANGES IN BOWEL CONTROL NO . CONSTIPATION NO . GENITOURINARY: ANY NEW CHANGE IN BLADDER CONTROL? NO . NEUROLOGY: NEW ONSET DIZZINESS OR NEUROLOGICAL CHANGES NOT MENTIONED NO . NEW NUMBNESS OR PAIN PATTERNS NOT MENTIONED AND PERTINENT TO TODAY'S VISIT NO . CARDIOLOGY: NEW CHEST PRESSURE NO . NEW CHEST PAIN NO . RESPIRATORY: UNEXPLAINABLE COUGH NO . NEW SHORTNESS OF BREATH NO . VITAL SIGNS WT 311 LBS, HT 60.5 IN, BMI 59.73 INDEX, BP 126/75 MM HG, HR 98 /MIN, RR 18 /MIN, TEMP 97.8 F, OXYGEN SAT % 98, SAFE IN ENV? (Y/N) YES, NA INITIALS JS, REVIEWED BY: ROBERTA. EXAMINATION GENERAL EXAMINATION: GENERALAWAKE,ALERT ,PLEASANT . PSYCHAFFECT NORMAL . LUNGS:LUNG ARORA ARE CLEAR TO AUSCULTATION BILATERALLY. GOOD MOVEMENT OF AIR . HEART:S1, S2 IN A REGULAR RATE AND RHYTHM. NO SIGNIFICANT MURMURS, RUBS OR GALLOPS NOTED . ASSESSMENTS SPONDYLOSIS WITHOUT MYELOPATHY OR RADICULOPATHY, LUMBAR REGION - M47.816 (PRIMARY) TREATMENT SPONDYLOSIS WITHOUT MYELOPATHY OR RADICULOPATHY, LUMBAR REGION CONTINUE ACETAMINOPHEN-CODEINE #4 TABLET, 300-60 MG, 1 TABLET NEEDED, ORALLY, EVERY 6 HRS CONTINUE ROBAXIN-750 TABLET, 750 MG, 1 TABLET, ORALLY, Q8H PRN, NOTES: 11/04 CONTINUE GABAPENTIN TABLET, 800 MG, 1 CAPSULE, ORALLY FOR PAIN, TID, NOTES: 11/06 0800 CONTINUE AMITRIPTYLINE HCL TABLET, 25 MG, 1 TABLET, ORALLY, ONCE A DAY, NOTES: 11/05 1700 NOTES: ISTOP REGISTRY REVIEWED AND DEMONSTRATES COMPLLIANCE. URINE TOX TODAY , RISKS OF NARCOTIC/OPIOD MEDICATIONS INCLUDES BUT IS NOT LIMITED TO RISK OF DEPENDANCE/DEVELOPMENT OF ADDICTION, MOOD DISTURBANCE AND DEPRESSION, OSTEOPOROSIS, HORMONAL AND LABIDAL CHANGES, RESPIRATORY DEPRESSION AND . PATIENT IS ADVISED NOT TO DRIVE OR DRINK ALCOHOL WHILE ON THESE MEDICATIONS. PROCEDURE CODES FA211 ESTABILISHED PATIENT [facility] FACILITY CHARGE DISPOSITION & COMMUNICATION FOLLOW UP 6 WEEKS (REASON: MED MGMNT/LOW BACK PAIN) ELECTRONICALLY SIGNED BY STEPHAN DRAKE ON 02/09/2020 AT 03:32 PM EDT DISCLAIMER : THIS IS A VISIT SUMMARY EXTRACTED FROM THE [employer] CHART. IT IS NOT A COPY OF THE [employer] PROGRESS NOTE. MTDD
== END ==
LOC: M PAIN 14:00
PROVIDERS: ATTEND Nurse Practitioner Family
DX: M47.816 Spondylosis without myelopathy or radiculopathy, lumbar region (principal); E11.9 Type 2 diabetes mellitus without complications; I10 Essential (primary) hypertension; E78.00 Pure hypercholesterolemia, unspecified; E66.9 Obesity, unspecified; K21.9 Gastro-esophageal reflux disease without esophagitis; F41.9 Anxiety disorder, unspecified; Z98.84 Bariatric surgery status; Z68.43 Body mass index [BMI] 50.0-59.9, adult; F17.210 Nicotine dependence, cigarettes, uncomplicated; Z79.84 Long term (current) use of oral hypoglycemic drugs; Z79.899 Other long term (current) drug therapy; Z88.2 Allergy status to sulfonamides; Z88.6 Allergy status to analgesic agent

== ENCOUNTER → 2020-02-14 | Outpatient (CLI) | payer MEDICARE ==
--- NOTE | 2020-02-20 00:41 | ECWPNPC ---
PATIENT NAME: STELLA TAVERAS : 1975 GENDER: FEMALE VISIT DATE: 02/14/2020 DISCHARGE DATE: 02/14/20 1431 VISIT LOCKED DATE TIME: PHYSICIAN: PATRICIA MCNAMARA RESOURCE: PATRICIA MCNAMARA REASON FOR APPOINTMENT 1. DISCUSS TRIGGER POINTS HISTORY OF PRESENT ILLNESS GENERAL: STELLA IS BEING SEEN FOR A ROUTINE FOLLOW-UP OF CHRONIC GENERALIZED BACK PAIN. HAS MODERATE TO SEVERE SPINAL STENOSIS. REVIEWED URINE TOXICOLOGY DONE AT LAST VISIT. THIS IS SHOWING MARIJUANA. PATIENT WAS ADVISED TODAY THAT WE WOULD NO LONGER BE ABLE TO USE NARCOTIC PAIN MEDICATIONS. SHE IS VERY UNCOMFORTABLE TODAY AND WEEPY. COMPLAINING OF UPPER AND LOWER BACK PAIN. HAS HAD SOME IMPROVEMENT WITH INJECTIONS IN THE PAST. REVIEWED MEDICATION AND MRI OF THE LS-SPINE. ALSO DISCUSSED REFERRAL TO SURGEON. PATIENT HAS AGREED TO BE EVALUATED AT SOME POINT BY SURGEON ALTHOUGH SHE WOULD LIKE TO AVOID SURGERY-. FALL RISK SCREENING: SCREENING :NO FALLS REPORTED IN THE LAST YEAR NONE PAIN SCREENING: PATIENT HAS A COMPLAINT OF ACUTE OR CHRONIC PAIN :YES LOCATION OF PAIN:NECK, BOTH SHOULDERS, LOW BACK INTENSITY OF PAIN (SCALE OF 1 TO 10):9 WHAT DOES YOUR PAIN FEEL LIKE:STABBING DURATION:CONTINOUS PAIN IS INCREASED BY:ACTIVITIES PAIN IS DECREASED BY:OTHERS NOTHING REALLY HELPS AT THE MOMENT NURSING NOTE: -. 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 :YES 2010 FROM DO YOU TAKE A BLOOD THINNERS? :NO DO YOU HAVE ANY BLEEDING DISORDERS? :NO ANY NEW NUMBNESS OR WEAKNESS IN YOUR LEGS OR ARMS? :YES YES IN BOTH ANY PACEMAKER,DEFIBRILLATOR, OR DORSAL COLUMN STIMULATOR? :NO DO YOU HAVE ANY RASHES OR OPEN SORES? :NO ARE YOU ALLERGIC TO IV DYE? :NO ARE YOU DIABETIC? :YES ANY NEW PROBLEMS WITH YOUR MEDICATIONS? :NO HAVE YOU RECEIVED A VACCINE IN THE PAST 30 DAYS? :NO DO YOU PLAN TO RECEIVE A VACCINE IN THE NEXT 21 DAYS? :NO DO YOU NEED ANY PRESCRIPTION? :YES DO YOU TAKE ANY IMMUNOSUPPRESSIVE MEDICATIONS? :NO IS THERE A CHANCE YOU COULD BE ? :NO ARE YOU BREAST FEEDING? :NO CURRENT MEDICATIONS TAKING IRON 325 MGS 1 TAB ORAL DAILY, NOTES: 11/05 1700 TAKING CYMBALTA 90 MG CAPSULE DELAYED RELEASE PARTICLES 1 CAPSULE ORALLY 30MG CAP AND 60 MG CAP DAILY, NOTES: 11/05 2129 TAKING VITAMIN D 1000 UNIT CAPSULE CAPSULE ORALLY ONCE A DAY, NOTES: 11/07 799 TAKING FLONASE 50 MCG/ACT SUSPENSION 1 SPRAY IN EACH NOSTRIL NASALLY ONCE A DAY NEEDED, NOTES: 11/05 TAKING SUMATRIPTAN SUCCINATE 50 MG TABLET 1 TABLET NEEDED ORALLY DIRECTED, NOTES: 11/07 799 TAKING COLACE 100 MG CAPSULE 1 CAPSULE NEEDED ORALLY 3X/DAY, NOTES: 11/07 799 TAKING SPIRONOLACTONE 25 MG TABLET 1 TABLET ORALLY DAILY, NOTES: 11/07 799 TAKING MISOPROSTOL 200 MCG TABLET 1 TABLET WITH MEALS AND AT BEDTIME ORALLY FOUR TIMES A DAY, NOTES: 11/07 799 TAKING FAMOTIDINE 20 MG TABLET DISINTEGRATING DIRECTED ORALLY BID, NOTES: 11/07 799 TAKING PRAMIPEXOLE DIHYDROCHLORIDE 0.25 MG TABLET 1 TABLET ORALLY BID, NOTES: 11/07 799 TAKING SUCRALFATE 1 GM TABLET 1 TABLET ON AN EMPTY STOMACH ORALLY FOUR TIMES DAILY, NOTES: 11/07 799 TAKING CETIRIZINE HCL 10 MG TABLET ORALLY ONCE A DAY, NOTES: 11/05 PM TAKING LOSARTAN POTASSIUM 25 MG TABLET ORALLY DAILY, NOTES: 11/07 799 TAKING MONTELUKAST SODIUM 10 MG TABLET 1 TABLET ORALLY ONCE A DAY, NOTES: 11/07 799 TAKING DITROPAN XL 10 MG TABLET EXTENDED RELEASE 24 HOUR 1 TABLET ORALLY ONCE A DAY, NOTES: 11/07 799 TAKING OMEPRAZOLE 40 MG CAPSULE DELAYED RELEASE 1 CAPSULE ORALLY 2 TIMES DAILY, NOTES: 11/07 799 TAKING VITAMIN B12 500 TABLET 500 MCG ORALLY DAILY, NOTES: 11/07 799 TAKING MULTIVITAMIN 1 TABLET CHEWABLE 1 TAB(S) ORALLY DAILY, NOTES: 11/07 799 TAKING CALCIUM CITRATE + 630 MG TABLET 2 TABLET WITH MEALS ORALLY TWICE A DAY, NOTES: 11/05 1699 TAKING LASIX 40 MG TABLET ORALLY DAILY, NOTES: 11/07 799 TAKING METFORMIN HCL 1000 MG TABLET 1 TABLET WITH MEALS ORALLY TWICE A DAY, NOTES: 11/05 1699 TAKING KETOROLAC TROMETHAMINE 10 MG TABLET 1 TABLET WITH FOOD OR MILK NEEDED ORALLY EVERY 6 HRS TAKING ROBAXIN-750 750 MG TABLET 1 TABLET ORALLY Q8H PRN, NOTES: 11/04 TAKING GABAPENTIN 800 MG TABLET 1 CAPSULE ORALLY FOR PAIN TID, NOTES: 11/07 799 TAKING AMITRIPTYLINE HCL 75 MG TABLET 1 TABLET ORALLY ONCE A DAY, NOTES: 11/05 1700 TAKING ACETAMINOPHEN-CODEINE #4 300-60 MG TABLET 1 TABLET NEEDED ORALLY EVERY 6 HRS TAKING LYRICA 200 MG CAPSULE 1 CAPSULE ORALLY Q8H TID MDD3, NOTES: 11/06 0800 NOT-TAKING BUPRENORPHINE HCL 300 MCG FILM 1 FILM TO THE GUM BUCALLY EVERY 12 HRS, NOTES: HAS NOT STARTED YET NOT-TAKING CLONIDINE HCL 0.1 MG TABLET 1 TABLET ORALLY Q8H PRN NOT-TAKING WELLBUTRIN 100 MG TABLET 1 TABLET ORALLY TWICE A DAY NOT-TAKING MORPHINE SULFATE ER 15 MG TABLET EXTENDED RELEASE 1 TABLET ORALLY EVERY 12 HRS MDD2 NOT-TAKING OXYCODONE HCL 5 MG TABLET 1 TABLET NEEDED ORALLY Q8H PRN MDD3 #50 TAB SHOULD LAST 30 DAYS NOT-TAKING ABILIFY 5 MG TABLET 1 TABLET ORALLY ONCE A DAY NOT-TAKING CYCLOBENZAPRINE HCL 10 MG TABLET DIRECTED ORALLY Q8H PRN PAIN #30 TAB SHOULD LAST 30 DAYS MEDICATION LIST REVIEWED AND RECONCILED WITH THE PATIENT PAST MEDICAL HISTORY DIABETES HYPERTENSION HYPERCHOLESTEREMIA OBESITY GERD (GASTROESOPHAGEAL REFLUX DISEASE) GASTRIC BYPASS ANXIETY BACK PAIN RIGHT HIP AND KNEE PAIN ALLERGIES SULFA (FOR ALLERGY USE ONLY): RASH - ALLERGY NSAIDS: GASTRIC BYPASS - CONTRAINDICATION SURGICAL HISTORY GASTRIC BYPASS 06/2015 BILAT CARPAL TUNNEL C SECTION CHOLECYSTECTOMY TONSILLECTOMY & ADENOIDECTOMY D&C 10/2017 ENDOSCOPY 11/2018 FAMILY HISTORY FATHER: , DIAGNOSED WITH UNSPECIFIED HEART DISEASE MOTHER: ALIVE, HYPERTENSION, DIABETES 2 BROTHER(S) . 1 SON(S) - HEALTHY. 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 SOCIAL HISTORY GENERAL: TOBACCO USE ARE YOU A:CURRENT SMOKER HOW OFTEN DO YOU SMOKE CIGARETTES?EVERY DAY HOW SOON AFTER YOU WAKE UP DO YOU SMOKE YOUR FIRST CIGARETTE?WITHIN 5 MIN HOW MANY CIGARETTES A DAY DO YOU SMOKE?31 OR MORE ARE YOU INTERESTED IN QUITTING?NOT READY TO QUIT PATIENT COUNSELED ON THE DANGERS OF TOBACCO USE AND URGED TO QUIT:09/15/2019 SMOKING CESSATION INFORMATION GIVEN08/16/2018 PAMPHLET GIVEN 08/16/18 LATEX QUESTIONNAIRE LATEX ALLERGY : HAVE YOU EVER DEVELOPED ANY TYPE OF REACTION AFTER HANDLING LATEX PRODUCTS SUCH RUBBER GLOVES, CONDOMS, DIAPHRAGMS, BALLOONS, SOCKS, OR UNDERWEAR?NO LATEX ALLERGY : HAVE YOU EVER DEVELOPED ANY TYPE OF REACTION DURING OR AFTER DENTAL APPOINTMENT, VAGINAL/RECTAL EXAMINATION, SURGICAL PROCEDURE, OR ANY OTHER EXPOSURE?NO LATEX RISK : HAVE YOU EVER HAD ANY DIFFICULTY BREATHING OR HIVES AFTER EATING OR HANDLING ANY FRUITS, OR VEGETABLES; SUCH KIWI, BANANAS, STONE FRUITS, OR CHESTNUTSNO LATEX RISK : DO YOU HAVE A PREVIOUS PERSONAL HISTORY OF MORE THAN NINE SURGERIES, SPINA BIFIDA, OR REPEATED CATHERIZATIONS? NO LATEX RISK : ARE YOU FREQUENTLY EXPOSED TO LATEX PRODUCTS IN YOUR OCCUPATION?NO DATE ASKED : 02/14/2020 ALCOHOL SCREENING DID YOU HAVE A DRINK CONTAINING ALCOHOL IN THE PAST YEAR?NO POINTS0 INTERPRETATIONNEGATIVE RECREATIONAL DRUG USE DRUG USE?NO CAFFEINE CAFFEINE USE?YES HOW OFTEN AND HOW MUCH? 2 BOTTLES [place] DEW/DAY ZOROASTRIANISM [id number] NONE LANGUAGE LANGUAGES SPOKEN:SPANISH EDUCATION LEVEL OF EDUCATION:NOT FINISHED COLLEGE LEARNING BARRIERS / SPECIAL NEEDS CHANGE FROM LAST VISIT?NO 09/15/19 BARRIERS TO LEARNING?NO HEARING IMPAIRED?NO VISION IMPAIRED?YES WEARS GLASSES COGNITIVELY IMPAIRED?NO :CORRECTIVE LENSES READINESS TO LEARN?YES LEARNING PREFERENCES?NO LEARNING CAPABILITIES PRESENT?YES EMOTIONAL BARRIERS?NO SPECIAL DEVICES?YES :CANE, WALKER WELDER GAS NEEDED?NO DOMESTIC VIOLENCE DO YOU FEEL SAFE IN YOUR ENVIRONMENT?YES OCCUPATION: DISABLED. DIET: REGULAR. EXERCISE: WALKS. MARITAL STATUS: SINGLE. OTHERS AT HOME: CHILD, OTHER NON-RELATIVE. PAIN CLINIC PFS, CLERGY, PUBLIC HEALTH REFERRALS PFS REFERRAL NEEDED?NO CLERGY REFERRAL NEEDED?NO PUBLIC HEALTH REFERRAL NEEDED?NO WAS THE PROVIDER NOTIFIED OF ANY PERTINENT INFO? N/A HAS THE PATIENT BEEN EDUCATED REGARDING HIS/HER PLAN OF CARE?YES HAS THE PATIENT BEEN EDUCATED REGARDING PAIN, THE RISK FOR PAIN, THE IMPORTANCE OF EFFECTIVE PAIN MANAGEMENT, AND THE PAIN ASSESSMENT PROCESS?YES ADVANCE DIRECTIVE ADVANCE DIRECTIVE DISCUSSED WITH PATIENT:YES HCP - ARNULFO TAVERAS [phone] AND [facility]IZATION/MAJOR DIAGNOSTIC PROCEDURE SURGERIES "FLUID ON LEGS" DEC OR 2018 KIDNEY INFECTION 05/18/2019 REVIEW OF SYSTEMS CONSTITUTIONAL: ANY RECENT FEVER NO . CHILLS NO . WEIGHT CHANGE OF UNKNOWN REASONS NO . GASTROENTEROLOGY: NEW UNEXPLAINABLE CHANGES IN BOWEL CONTROL NO . CONSTIPATION NO . GENITOURINARY: ANY NEW CHANGE IN BLADDER CONTROL? NO . NEUROLOGY: NEW ONSET DIZZINESS OR NEUROLOGICAL CHANGES NOT MENTIONED NO . NEW NUMBNESS OR PAIN PATTERNS NOT MENTIONED AND PERTINENT TO TODAY'S VISIT NO . CARDIOLOGY: NEW CHEST PRESSURE NO . NEW CHEST PAIN NO . RESPIRATORY: UNEXPLAINABLE COUGH NO . NEW SHORTNESS OF BREATH NO . VITAL SIGNS WT 293.8 LBS, HT 60.5 IN, BMI 56.43 INDEX, BP 140/69 MM HG, HR 97 /MIN, RR 18 /MIN, TEMP 96.7 F, OXYGEN SAT % 100%, SAFE IN ENV? (Y/N) YES, NA INITIALS CO 13:55, REVIEWED BY: ROBERTA. EXAMINATION GENERAL EXAMINATION: GENERAL AWAKE,ALERT ,PLEASANT . PSYCH AFFECT NORMAL . LUNGS: LUNG ARORA ARE CLEAR TO AUSCULTATION BILATERALLY. GOOD MOVEMENT OF AIR . HEART: S1, S2 IN A REGULAR RATE AND RHYTHM. NO SIGNIFICANT MURMURS, RUBS OR GALLOPS NOTED . LUMBAR:PALPATION: + FOR PAIN OVER L/S SPINE. + FOR PAIN OVER L/S PARASPINALS SPECIFIC POINT TENDERNESS NOTED OVER BILATERAL SIJ. DIAGNOSTIC TESTS REVIEWEDMRI L/S SPINE. 2019 . ASSESSMENTS BILATERAL SACROILIITIS - M46.1 (PRIMARY) TREATMENT BILATERAL SACROILIITIS REFILL ROBAXIN-750 TABLET, 750 MG, 1 TABLET, ORALLY, Q8H PRN, 30 DAYS, 90, REFILLS 2, NOTES: 11/04 REFILL GABAPENTIN TABLET, 800 MG, 1 CAPSULE, ORALLY FOR PAIN, TID, 30 DAYS, 90 CAPSULE, REFILLS 2, NOTES: 11/06 0800 REFILL AMITRIPTYLINE HCL TABLET, 75 MG, 1 TABLET, ORALLY, ONCE A DAY, 30 DAYS, 30 TABLET, REFILLS 2, NOTES: 11/05 1700 STOP ACETAMINOPHEN-CODEINE #4 TABLET, 300-60 MG, 1 TABLET NEEDED, ORALLY, EVERY 6 HRS REFILL LYRICA CAPSULE, 200 MG, 1 CAPSULE, ORALLY, Q8H TID MDD3, 30 DAYS, 90, REFILLS 2, NOTES: 11/06 08 NOTES: BILATERAL SIJ. PROCEDURE CODES FA211 ESTABILISHED PATIENT [facility] FACILITY CHARGE DISPOSITION & COMMUNICATION FOLLOW UP POST PROCEDURE (REASON: BILATERAL SIJ) ELECTRONICALLY SIGNED BY STEPHAN DRAKE ON 02/19/2020 AT 04:09 PM EST DISCLAIMER : THIS IS A VISIT SUMMARY EXTRACTED FROM THE [employer] CHART. IT IS NOT A COPY OF THE [employer] PROGRESS NOTE. MTDD
== END ==
LOC: M PAIN 13:45
PROVIDERS: ATTEND Nurse Practitioner Family
DX: M46.1 Sacroiliitis, not elsewhere classified (principal); E11.9 Type 2 diabetes mellitus without complications; I10 Essential (primary) hypertension; E78.00 Pure hypercholesterolemia, unspecified; E66.9 Obesity, unspecified; K21.9 Gastro-esophageal reflux disease without esophagitis; Z98.84 Bariatric surgery status; F41.9 Anxiety disorder, unspecified; F17.210 Nicotine dependence, cigarettes, uncomplicated; Z79.84 Long term (current) use of oral hypoglycemic drugs; Z79.899 Other long term (current) drug therapy; Z88.2 Allergy status to sulfonamides; Z88.6 Allergy status to analgesic agent; Z68.43 Body mass index [BMI] 50.0-59.9, adult

== ENCOUNTER → 2020-02-29 | Outpatient (CLI) | payer MEDICARE | LOC: M LABSMTC 14:10 | PROVIDERS: ATTEND Anesthesiology | DX: Z20.828 Contact with and (suspected) exposure to other viral communicable diseases (principal) ==

== ENCOUNTER → 2020-03-05 | Outpatient (CLI) | payer MEDICARE ==
[~2020-03-05] MED LIST changes: +BUPIVACAINE HCL 0.25% 30ML VIAL As Ordered ONE; +ISOVUE-M 300 61% 15ML VIAL As Ordered ONE; +LIDOCAINE 1% SDV 30ML VIAL As Ordered ONE; +TRIAMCINOLONE ACETONIDE SUSP 40 MG/ML VIAL (J3301) As Ordered ONE; +diazePAM 5 MG TAB As Ordered ONE; +diphenhydrAMINE 25MG CAP As Ordered ONE; +oxyCODONE 5MG TAB As Ordered ONE
--- NOTE | 2020-03-05 17:16 | REP ---
INDICATION: BILATERAL SIJ. Pain COMPARISON: None. TECHNIQUE: For C-arm views of the sacroiliac joints are performed bilaterally. FINDINGS: A needle overlies each sacroiliac joint. IMPRESSION: 31 seconds fluoroscopy time utilized. <Electronically signed by Scott Pagan > 03/05/20 [id number]
--- NOTE | 2020-03-08 01:30 | ECWPNPC ---
PATIENT NAME: STELLA TAVERAS : 1975 GENDER: FEMALE VISIT DATE: 03/05/2020 DISCHARGE DATE: 03/05/201614 VISIT LOCKED DATE TIME: PHYSICIAN: AMELIA LAI MD RESOURCE: AMELIA LAI MD REASON FOR APPOINTMENT 1. BILATERAL SIJ HISTORY OF PRESENT ILLNESS GENERAL: -. FALL RISK SCREENING: SCREENING :NO FALLS REPORTED IN THE LAST YEAR PAIN SCREENING: PATIENT HAS A COMPLAINT OF ACUTE OR CHRONIC PAIN :YES LOCATION OF PAIN:LOW BACK, LEG(S) INTENSITY OF PAIN (SCALE OF 1 TO 10):8 WHAT DOES YOUR PAIN FEEL LIKE:CONTINOUS, SHARP, STABBING DURATION:CONTINOUS, AWAKENS FROM SLEEP PAIN IS INCREASED BY:ACTIVITIES, PROLONGED STANDING PLAN/GOALS/TREATMENT/INTERVENTION/FOLLOW UP:SEE PLAN NURSING NOTE: -. 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 :YES 2009. DO YOU TAKE A BLOOD THINNERS? :NO DO YOU HAVE ANY BLEEDING DISORDERS? :NO ANY NEW NUMBNESS OR WEAKNESS IN YOUR LEGS OR ARMS? :NO ANY PACEMAKER,DEFIBRILLATOR, OR DORSAL COLUMN STIMULATOR? :NO DO YOU HAVE ANY RASHES OR OPEN SORES? :NO ARE YOU ALLERGIC TO IV DYE? :NO ARE YOU DIABETIC? :NO ANY NEW PROBLEMS WITH YOUR MEDICATIONS? :NO HAVE YOU RECEIVED A VACCINE IN THE PAST 30 DAYS? :NO DO YOU PLAN TO RECEIVE A VACCINE IN THE NEXT 21 DAYS? :NO DO YOU TAKE ANY IMMUNOSUPPRESSIVE MEDICATIONS? :NO ANY HISTORY OF SEIZURES? :NO ANY HISTORY OF CARDIAC ISSUES OR EVENTS? :NO DO YOU HAVE SLEEP APNEA? :NO ANY RECENT HEAD INJURY? :NO DO YOU HAVE ANY NEW INFECTIONS? :NO IS THERE A CHANCE YOU COULD BE ? :NO ARE YOU BREAST FEEDING? :NO WHEN DID YOU LAST EAT? : 03/04/202199 WHEN DID YOU LAST DRINK? : 03/05/20 1230 WHAT DID YOU LAST DRINK? : WATER NAME OF PERSON DRIVING YOU HOME? : PETER DO YOU HAVE ANY OTHER QUESTIONS OR CONCERNS? : NO CURRENT MEDICATIONS TAKING IRON 325 MGS 1 TAB ORAL DAILY, NOTES: 03/05 173 TAKING CYMBALTA 90 MG CAPSULE DELAYED RELEASE PARTICLES 1 CAPSULE ORALLY 30MG CAP AND 60 MG CAP DAILY, NOTES: 03/04 2200 TAKING VITAMIN D 1000 UNIT CAPSULE CAPSULE ORALLY ONCE A DAY, NOTES: 11/17 0830 TAKING FLONASE 50 MCG/ACT SUSPENSION 1 SPRAY IN EACH NOSTRIL NASALLY ONCE A DAY NEEDED, NOTES: COUPLE DAYS AGO TAKING SUMATRIPTAN SUCCINATE 50 MG TABLET 1 TABLET NEEDED ORALLY DIRECTED, NOTES: 03/04 2200 TAKING COLACE 100 MG CAPSULE 1 CAPSULE NEEDED ORALLY 3X/DAY, NOTES: 03/05 830 TAKING SPIRONOLACTONE 25 MG TABLET 1 TABLET ORALLY DAILY, NOTES: 03/05 830 TAKING MISOPROSTOL 200 MCG TABLET 1 TABLET WITH MEALS AND AT BEDTIME ORALLY FOUR TIMES A DAY, NOTES: 03/05 830 TAKING FAMOTIDINE 20 MG TABLET DISINTEGRATING DIRECTED ORALLY BID, NOTES: 03/05 830 TAKING PRAMIPEXOLE DIHYDROCHLORIDE 0.25 MG TABLET 1 TABLET ORALLY BID, NOTES: 03/05 830 TAKING SUCRALFATE 1 GM TABLET 1 TABLET ON AN EMPTY STOMACH ORALLY FOUR TIMES DAILY, NOTES: 03/05 830 TAKING CETIRIZINE HCL 10 MG TABLET ORALLY ONCE A DAY, NOTES: 03/04 2200 TAKING LOSARTAN POTASSIUM 25 MG TABLET ORALLY DAILY, NOTES: 03/05 830 TAKING MONTELUKAST SODIUM 10 MG TABLET 1 TABLET ORALLY ONCE A DAY, NOTES: 03/05 830 TAKING DITROPAN XL 10 MG TABLET EXTENDED RELEASE 24 HOUR 1 TABLET ORALLY ONCE A DAY, NOTES: 03/04 2200 TAKING OMEPRAZOLE 40 MG CAPSULE DELAYED RELEASE 1 CAPSULE ORALLY 2 TIMES DAILY, NOTES: 03/05 830 TAKING VITAMIN B12 500 TABLET 500 MCG ORALLY DAILY, NOTES: 03/05 830 TAKING MULTIVITAMIN 1 TABLET CHEWABLE 1 TAB(S) ORALLY DAILY, NOTES: 03/05 830 TAKING CALCIUM CITRATE + 630 MG TABLET 2 TABLET WITH MEALS ORALLY TWICE A DAY, NOTES: 03/04 1730 TAKING LASIX 40 MG TABLET ORALLY DAILY, NOTES: 03/05 830 TAKING METFORMIN HCL 1000 MG TABLET 1 TABLET WITH MEALS ORALLY TWICE A DAY, NOTES: 03/04 2200 TAKING KETOROLAC TROMETHAMINE 10 MG TABLET 1 TABLET WITH FOOD OR MILK NEEDED ORALLY EVERY 6 HRS, NOTES: COUPLE DAYS AGO TAKING ROBAXIN-750 750 MG TABLET 1 TABLET ORALLY Q8H PRN, NOTES: COUPLE DAYS AGO TAKING GABAPENTIN 800 MG TABLET 1 CAPSULE ORALLY FOR PAIN TID, NOTES: 03/05 830 TAKING AMITRIPTYLINE HCL 75 MG TABLET 1 TABLET ORALLY ONCE A DAY, NOTES: 03/04 2200 TAKING LYRICA 200 MG CAPSULE 1 CAPSULE ORALLY Q8H TID MDD3, NOTES: 03/05 0830 NOT-TAKING BUPRENORPHINE HCL 300 MCG FILM 1 FILM TO THE GUM BUCALLY EVERY 12 HRS, NOTES: HAS NOT STARTED YET NOT-TAKING CLONIDINE HCL 0.1 MG TABLET 1 TABLET ORALLY Q8H PRN NOT-TAKING WELLBUTRIN 100 MG TABLET 1 TABLET ORALLY TWICE A DAY NOT-TAKING MORPHINE SULFATE ER 15 MG TABLET EXTENDED RELEASE 1 TABLET ORALLY EVERY 12 HRS MDD2 NOT-TAKING OXYCODONE HCL 5 MG TABLET 1 TABLET NEEDED ORALLY Q8H PRN MDD3 #50 TAB SHOULD LAST 30 DAYS NOT-TAKING ABILIFY 5 MG TABLET 1 TABLET ORALLY ONCE A DAY NOT-TAKING CYCLOBENZAPRINE HCL 10 MG TABLET DIRECTED ORALLY Q8H PRN PAIN #30 TAB SHOULD LAST 30 DAYS MEDICATION LIST REVIEWED AND RECONCILED WITH THE PATIENT PAST MEDICAL HISTORY DIABETES HYPERTENSION HYPERCHOLESTEREMIA OBESITY GERD (GASTROESOPHAGEAL REFLUX DISEASE) GASTRIC BYPASS ANXIETY BACK PAIN RIGHT HIP AND KNEE PAIN ALLERGIES SULFA (FOR ALLERGY USE ONLY): RASH - ALLERGY NSAIDS: GASTRIC BYPASS - CONTRAINDICATION SURGICAL HISTORY GASTRIC BYPASS 06/2015 BILAT CARPAL TUNNEL C SECTION CHOLECYSTECTOMY TONSILLECTOMY & ADENOIDECTOMY D&C 10/2017 ENDOSCOPY 11/2018 FAMILY HISTORY FATHER: , DIAGNOSED WITH UNSPECIFIED HEART DISEASE MOTHER: ALIVE, HYPERTENSION, DIABETES 2 BROTHER(S) . 1 SON(S) - HEALTHY. 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 SOCIAL HISTORY GENERAL: TOBACCO USE ARE YOU A:CURRENT SMOKER ARE YOU INTERESTED IN QUITTING?NOT READY TO QUIT HOW MANY CIGARETTES A DAY DO YOU SMOKE?31 OR MORE HOW SOON AFTER YOU WAKE UP DO YOU SMOKE YOUR FIRST CIGARETTE?WITHIN 5 MIN HOW OFTEN DO YOU SMOKE CIGARETTES?EVERY DAY PATIENT COUNSELED ON THE DANGERS OF TOBACCO USE AND URGED TO QUIT:03/05/2020 SMOKING CESSATION INFORMATION GIVEN03/05/2020 PAMPHLET GIVEN 08/16/18 LATEX QUESTIONNAIRE LATEX ALLERGY : HAVE YOU EVER DEVELOPED ANY TYPE OF REACTION AFTER HANDLING LATEX PRODUCTS SUCH RUBBER GLOVES, CONDOMS, DIAPHRAGMS, BALLOONS, SOCKS, OR UNDERWEAR?NO LATEX ALLERGY : HAVE YOU EVER DEVELOPED ANY TYPE OF REACTION DURING OR AFTER DENTAL APPOINTMENT, VAGINAL/RECTAL EXAMINATION, SURGICAL PROCEDURE, OR ANY OTHER EXPOSURE?NO DATE ASKED : 02/14/2020 LATEX RISK : HAVE YOU EVER HAD ANY DIFFICULTY BREATHING OR HIVES AFTER EATING OR HANDLING ANY FRUITS, OR VEGETABLES; SUCH KIWI, BANANAS, STONE FRUITS, OR CHESTNUTSNO LATEX RISK : DO YOU HAVE A PREVIOUS PERSONAL HISTORY OF MORE THAN NINE SURGERIES, SPINA BIFIDA, OR REPEATED CATHERIZATIONS? NO LATEX RISK : ARE YOU FREQUENTLY EXPOSED TO LATEX PRODUCTS IN YOUR OCCUPATION?NO ALCOHOL SCREENING DID YOU HAVE A DRINK CONTAINING ALCOHOL IN THE PAST YEAR?NO POINTS0 INTERPRETATIONNEGATIVE RECREATIONAL DRUG USE DRUG USE?NO CAFFEINE CAFFEINE USE?YES HOW OFTEN AND HOW MUCH? 2 BOTTLES [place]W/DAY ANGLICAN [id number] NONE LANGUAGE LANGUAGES SPOKEN:[place] EDUCATION LEVEL OF EDUCATION:NOT FINISHED COLLEGE LEARNING BARRIERS / SPECIAL NEEDS CHANGE FROM LAST VISIT?NO 09/15/19 BARRIERS TO LEARNING?NO HEARING IMPAIRED?NO VISION IMPAIRED?YES WEARS GLASSES COGNITIVELY IMPAIRED?NO :CORRECTIVE LENSES READINESS TO LEARN?YES LEARNING PREFERENCES?NO LEARNING CAPABILITIES PRESENT?YES EMOTIONAL BARRIERS?NO SPECIAL DEVICES?YES :CANE, WALKER CREDIT SUPPORT COUNSELOR NEEDED?NO DOMESTIC VIOLENCE DO YOU FEEL SAFE IN YOUR ENVIRONMENT?YES OCCUPATION: DISABLED. DIET: REGULAR. EXERCISE: WALKS. MARITAL STATUS: SINGLE. OTHERS AT HOME: CHILD, OTHER NON-RELATIVE. PAIN CLINIC PFS, CLERGY, PUBLIC HEALTH REFERRALS PFS REFERRAL NEEDED?NO CLERGY REFERRAL NEEDED?NO PUBLIC HEALTH REFERRAL NEEDED?NO WAS THE PROVIDER NOTIFIED OF ANY PERTINENT INFO? N/A HAS THE PATIENT BEEN EDUCATED REGARDING HIS/HER PLAN OF CARE?YES HAS THE PATIENT BEEN EDUCATED REGARDING PAIN, THE RISK FOR PAIN, THE IMPORTANCE OF EFFECTIVE PAIN MANAGEMENT, AND THE PAIN ASSESSMENT PROCESS?YES ADVANCE DIRECTIVE ADVANCE DIRECTIVE DISCUSSED WITH PATIENT:YES HCP - ARNULFO TAVERAS [phone] [facility]/MAJOR DIAGNOSTIC PROCEDURE SURGERIES "FLUID ON LEGS" DEC OR 2018 KIDNEY INFECTION 05/18/2019 VITAL SIGNS WT 295.4 LBS, HT 60.5 IN, BMI 56.74 INDEX, BP 134/79 MM HG, HR 103 /MIN, RR 18 /MIN, TEMP 97.9 F, OXYGEN SAT % 100%, SAFE IN ENV? (Y/N) YES, NA INITIALS SC 14:08, REVIEWED BY: MTM. PRATT BUCKET HOOKER. EXAMINATION GENERAL EXAMINATION: THE PATIENT IS ALERT, ORIENTED TIMES THREE AND COOPERATIVE. HEART SHOWS REGULAR RHYTHM, NO MURMURS AND NO GALLOPS. LUNGS ARE CLEAR TO AUSCULTATION. ASSESSMENTS SACROILIITIS, NOT ELSEWHERE CLASSIFIED - M46.1 (PRIMARY), RISK: (NULL) SACROILIAC JOINT DYSFUNCTION - M53.3 TREATMENT SACROILIITIS, NOT ELSEWHERE CLASSIFIED [facility] FLUORO GUIDANCE (PAIN)[id number] MEDICATION: BENADRYL TAB 25MG ORALLY (DIPHENHYDRAMINE)LYLY PRATT 03/05/2020 2:42:47 PM > LOT # [id number] EXP:04/2022 JAMESON ALEXANDER 03/05/2020 2:43:56 PM > VERIFIED LYLY PRATT 03/05/2020 2:51:28 PM > ADMINISTERED. THIS PROCEDURE WAS REVIEWED BY LYLY PRATT ON 03/07/2020 AT 17:27 PM EST MEDICATION: VALIUM TAB 5MG ORALLY (DIAZEPAM)LYLY PRATT 03/05/2020 2:41:51 PM > LOT# [id number] EXP: 11/06. JAMESON ALEXANDER 03/05/2020 2:44:11 PM > VERIFIED LYLY PRATT 03/05/2020 2:51:50 PM > ADMINISTERED. THIS PROCEDURE WAS REVIEWED BY LYLY PRATT ON 03/07/2020 AT 17:27 PM EST MEDICATION: OXYCODONE HCL TAB 10MG ORALLYTERENCELYLY 03/05/2020 2:42:15 PM > LOT# [id number] EXP: 06/10. JAMESON ALEXANDER 03/05/2020 2:44:27 PM > VERIFIED LYLY PRATT 03/05/2020 2:52:07 PM > ADMINISTERED. THIS PROCEDURE WAS REVIEWED BY LYLY PRATT ON 03/07/2020 AT 17:27 PM EST SACROILIAC JOINT DYSFUNCTION [facility] FLUORO GUIDANCE (PAIN)[id number] PROCEDURES PAIN NURSING RECORD PRE-PROCEDURE IV SITE N/A, PRE-PROCEDURE ORAL MEDICATIONS YES SEE TREATMENT SECTION PROCEDURE IN ROOM 1530, PHYSICIAN IN ROOM 1539, START 1541, FINISH 1546, PHYSICIAN OUT OF ROOM 1547, OUT OF ROOM 1550, STEROID KENALOG, O2 RA, ECG NORMAL SINUS, PATIENT SHIELDED YES, SAFETY STRAP YES, PREP CHLOROPREP Jose PRATT RN, IV INFUSED N/A, DRESSING TEGADERM DR. LAI LOC: LYLY PRATT 03/05/2020 3:30:41 PM > 1. ALERT, ORIENTED RESP: LYLY PRATT 03/05/2020 3:30:41 PM > 1. REGULAR, NO DYSPNEA COLOR: LYLY PRATT 03/05/2020 3:30:41 PM > 1. PINK SKIN: LYLY PRATT 03/05/2020 3:30:41 PM > 1. WARM, DRY POSITION: LYLY PRATT 03/05/2020 3:30:41 PM > 1. PRONE VITALS: LYLY PRATT 03/05/2020 3:31:46 PM > 134/87, 79, 97% RA, 18. LYLY PRATT 03/05/2020 3:44:42 PM > 163/89, 96, 96% RA, 18. LYLY PRATT 03/05/2020 4:05:33 PM > POST PROCEDURE 143/90, 104, 99% RA, 18. NOTES PATIENT BROUGHT TO PROEDURE ROOM ON A STRETCHER AND FROM PROCEDURE ROOM ON STRETCHER. DISCHARGE: DRESSING SITE DRY AND INTACT, IV N/A, GAIT OTHER USE OF 4WW AT BASELINE, TEACHING COMPLETED, PATIENT ACKNOWLEDGES UNDERSTANDING YES, PATIENT DISCHARGED AT 1615 PN SI PRE PROCEDURE DIAGNOSIS SACROILIITIS, SACROILIAC JOINT DYSFUNCTION POST PROCEDURE DIAGNOSIS SACROILIITIS, SACROILIAC JOINT DYSFUNCTION PROCEDURE BILATERAL SACROILIAC JOINT BLOCK SURGEON DR. AMELIA LAI STORE STOCKER NONE ANESTHESIA LOCAL PRE PROCEDURE NOTE THE PATIENT WITH HISTORY OF CHRONIC LOW BACK PAIN. I EVALUATED THE PATIENT AND REVIEWED THE CHART. I WENT OVER THE RISKS, ALTERNATIVES, AND BENEFITS ASSOCIATED WITH THIS PROCEDURE. I DISCUSSED THAT THE USE OF STEROIDS MAY CONTRIBUTE TO IMMUNOSUPPRESSION OF THE PATIENT'S BODY AGAINST INFECTIONS SUCH COVID-19. THE PATIENT IS AWARE OF THE POTENTIAL COMPLICATIONS ASSOCIATED WITH THIS VIRUS, INCLUDING, BUT NOT LIMITED TO, . THE PATIENT WOULD LIKE TO PROCEED AND GAVE CONSENT TO PERFORM THE PROCEDURE. THE PATIENT DENIES UNEXPLAINABLE WEIGHT LOSS, FEVER, CHILLS, OR NEW CHANGES IN URINARY OR BOWEL CONTROL. THE PATIENT IS COVID-19 NEGATIVE DESCRIPTION OF PROCEDURE THE PATIENT WAS BROUGHT TO THE PROCEDURE ROOM AND PLACED IN THE PRONE POSITION. THE LUMBOSACRAL AREA WAS CLEANED WITH CHLORAPREP SOLUTION AND DRAPED ASEPTICALLY. THE PROCEDURE WAS DONE UNDER STERILE CONDITIONS. A TIMEOUT WAS PERFORMED WHERE LATERALITY AND THE SITE OF THE PROCEDURE WERE CHECKED AND CONFIRMED WITH EVERYONE IN THE ROOM. UNDER FLUOROSCOPIC GUIDANCE, THE TARGET POINT WAS SELECTED AT THE LOWER BORDER OF THE RIGHT AND LEFT SACROILIAC JOINT. TARGET POINT WAS SELECTED AFTER MEDIAL ROTATION AND TILT OF THE MAGNIFIER OR THE C-ARM. I CONFIRMED AGAIN WITH EVERYONE IN THE ROOM THE LATERALITY OF THE TARGET AT 1540. LIDOCAINE 0.5% WAS USED TO NUMB THE SKIN AND THE SUBCUTANEOUS TISSUE BELOW IT. SPINAL NEEDLES, 22-GAUGE, WERE ADVANCED UNDER FLUOROSCOPIC GUIDANCE AND FOLLOWING PATIENT FEEDBACK UNTIL THE TARGETS WERE TOUCHED. THE POSITION OF THE NEEDLES WAS VERIFIED WITH AP AND OBLIQUE VIEWS. AFTER PROPER POSITION OF THE NEEDLES WAS ACHIEVED, ISOVUE-M DYE 30%, 0.1 ML, WAS INJECTED SHOWING ADEQUATE SPREAD OF THE DYE. KENALOG 40 MG WAS INJECTED AT EACH SITE. THEN, A SOLUTION OF 3.0 ML OF BUPIVACAINE 0.125% WAS USED TO FLUSH EACH NEEDLE. THE MEDICATIONS WERE VERIFIED WITH THE NURSE. THERE WAS NO EVIDENCE OF BLOOD, PARESTHESIA OR CEREBROSPINAL FLUID DURING THE PROCEDURE. THE PATIENT WAS SENT TO THE RECOVERY ROOM. THE PATIENT WAS MOVING THE EXTREMITIES AND DOING WELL. THERE WERE NO COMPLICATIONS DURING THE PROCEDURE. ESTIMATED BLOOD LOSS WAS LESS THAN 5 ML. FLUOROSCOPIC TIME WAS 31 SECONDS. POST PROCEDURE NOTE THE PROCEDURE DONE WAS DISCUSSED WITH THE PATIENT. THE PATIENT WILL BE SEEN IN A FOLLOW UP IN THE NEXT FEW WEEKS. I AM LOOKING FOR LONG LASTING PAIN RELIEF FOR THE PATIENT WITH THIS INTERVENTION. INSTRUCTIONS WERE GIVEN, QUESTIONS WERE ANSWERED, AND THE PATIENT EXPRESSED UNDERSTANDING AND AGREES WITH THE PLAN. I, FANY ESPINAL, DOCUMENTED THE ABOVE INFORMATION ACTING A SCRIBE FOR DR. LAI. I HAVE REVIEWED THE ABOVE DOCUMENT, WRITTEN BY FANY ESPINAL, VENEER MANUFACTURER, AND I VERIFY THAT IT IS ACCURATE PROCEDURE CODES 61064 INJECT SACROILIAC JOINT, MODIFIERS: 50 DISPOSITION & COMMUNICATION FOLLOW UP FOLLOW UP WITH CORE SHAPER (REASON: POST BILATERAL SIJ) ELECTRONICALLY SIGNED BY AMELIA LAI MD, MD ON 03/07/2020 AT 12:39 PM EST DISCLAIMER : THIS IS A VISIT SUMMARY EXTRACTED FROM THE [employer] CHART. IT IS NOT A COPY OF THE [employer] PROGRESS NOTE. JUSTUS
== END ==
LOC: M PAIN 14:30
PROVIDERS: ATTEND Anesthesiology
DX: M46.1 Sacroiliitis, not elsewhere classified (principal); M53.3 Sacrococcygeal disorders, not elsewhere classified; E11.9 Type 2 diabetes mellitus without complications; I10 Essential (primary) hypertension; E78.00 Pure hypercholesterolemia, unspecified; E66.9 Obesity, unspecified; K21.9 Gastro-esophageal reflux disease without esophagitis; F41.9 Anxiety disorder, unspecified; Z98.84 Bariatric surgery status; F17.210 Nicotine dependence, cigarettes, uncomplicated; Z79.84 Long term (current) use of oral hypoglycemic drugs; Z79.899 Other long term (current) drug therapy; Z88.2 Allergy status to sulfonamides; Z88.6 Allergy status to analgesic agent
CPT/HCPCS: G0260; J3301; Q9967

== ENCOUNTER → 2020-03-07 | Outpatient (CLI) | payer OTHER ==
[~2020-03-07] MED LIST changes: -BUPIVACAINE HCL 0.25% 30ML VIAL As Ordered ONE; -ISOVUE-M 300 61% 15ML VIAL As Ordered ONE; -LIDOCAINE 1% SDV 30ML VIAL As Ordered ONE; -TRIAMCINOLONE ACETONIDE SUSP 40 MG/ML VIAL (J3301) As Ordered ONE; -diazePAM 5 MG TAB As Ordered ONE; -diphenhydrAMINE 25MG CAP As Ordered ONE; -oxyCODONE 5MG TAB As Ordered ONE
--- NOTE | 2020-03-07 16:18 | REPMRS ---
Patient History The patient states she had a clinical breast exam in February 2020. Family history of unknown cancer at age 50 or over in maternal aunt, unknown cancer at age 50 or over in maternal grandfather. 3D TOMOSYNTHESIS WAS PERFORMED. The Jluis Roberts lifetime risk for breast cancer is 14.1%. Volpara breast density b. Digital Woman Screen Mammo: March 07, 2020 - Exam #: [id number] Bilateral CC and MLO view(s) were taken. Technologist: Gali Diaz, Technologist Prior study comparison: February 23, 2019, bilateral digital mammo screening bilat, performed at [facility]. December 16, 2017, bilateral digital mammo screening bilat, performed at [facility]. FINDINGS: There are scattered fibroglandular densities. There has been no change in the appearance of the mammogram from the prior studies. There is a mild amount of residual fibroglandular tissue which is fairly symmetric. There is no interval development of dominant mass, architectural distortion, or clustered microcalcification suggestive of malignancy. Assessment: BI-RADS/ACR category 1 mammogram. Negative Mammogram. Recommendation Routine screening mammogram in 1 year (for women over age 40). This mammogram was interpreted with the aid of an FDA-approved computer-aided dectection system. Electronically Signed By: Scott Pagan MD 03/07/20 0956
== END ==
LOC: M WHC 14:45
PROVIDERS: ATTEND Advanced Practice Midwife
DX: Z12.31 Encounter for screening mammogram for malignant neoplasm of breast (principal)

== ENCOUNTER → 2020-03-19 | Outpatient (CLI) | payer MEDICARE ==
[~2020-03-19] MED LIST changes: +CYAN500T14 PO; -CYAN500T8 PO; -MONT10TA4 PO; +MONT5TAB2 PO
--- NOTE | 2020-03-21 02:43 | ECWPNPC ---
PATIENT NAME: STELLA TAVERAS : 1975 GENDER: FEMALE VISIT DATE: 03/19/2020 DISCHARGE DATE: 03/19/20 1519 VISIT LOCKED DATE TIME: PHYSICIAN: PATRICIA MCNAMARA RESOURCE: PATRICIA MCNAMARA REASON FOR APPOINTMENT 1. POST BILATERAL SIJ HISTORY OF PRESENT ILLNESS GENERAL: HERE FOR POST PROCEDURE FOLLOW-UP. HAD BILATERAL SACROILIAC JOINT BLOCKS ON 03/05/2020. REPORTING MARKED REDUCTION IN LOW BACK AND LEG PAIN POST PROCEDURE. CONTINUES WITH BENEFIT FROM LEG PAIN SINCE PROCEDURE BUT LOW BACK PAIN HAS RETURNED BUT NOT INTENSE OVER THE PAST FEW DAYS. CHIEF AREA OF PAIN IS NECK AND SHOULDER AREA. PAIN IN THIS AREA IS AGGRAVATED WITH RANGE OF JOINT MOTION OF THE NECK AND ARMS. HAS BENEFITED FROM TRIGGER POINT INJECTIONS IN THE PAST.-. FALL RISK SCREENING: SCREENING :NO FALLS REPORTED IN THE LAST YEAR PAIN SCREENING: PATIENT HAS A COMPLAINT OF ACUTE OR CHRONIC PAIN :YES LOCATION OF PAIN:LOW BACK, LEG(S) INTENSITY OF PAIN (SCALE OF 1 TO 10):7 WHAT DOES YOUR PAIN FEEL LIKE:SHARP, STABBING DURATION:CONTINOUS, CONSTANT PAIN IS INCREASED BY:ACTIVITIES PAIN IS DECREASED BY:USE OF PAIN MEDICATIONS TREATMENT/MEDICATIONS USED TO MANAGE PAIN:OPIOIDS INJECTIONS LEVEL OF RELIEF FROM PAIN TREATMENTS IN THE PAST:100% PAIN HAS INTERFERED WITH THE FOLLOWING:BATHING/DRESSING, WALKING ABILITY, HOUSEWORK, SLEEP, TRANSPORTATION, TOILETING NURSING NOTE: -. 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 :YES C SECTION 2009 DO YOU TAKE A BLOOD THINNERS? :NO DO YOU HAVE ANY BLEEDING DISORDERS? :NO ANY NEW NUMBNESS OR WEAKNESS IN YOUR LEGS OR ARMS? :NO ANY PACEMAKER,DEFIBRILLATOR, OR DORSAL COLUMN STIMULATOR? :NO DO YOU HAVE ANY RASHES OR OPEN SORES? :NO ARE YOU ALLERGIC TO IV DYE? :NO ARE YOU DIABETIC? :YES ANY NEW PROBLEMS WITH YOUR MEDICATIONS? :NO HAVE YOU RECEIVED A VACCINE IN THE PAST 30 DAYS? :NO DO YOU PLAN TO RECEIVE A VACCINE IN THE NEXT 21 DAYS? :NO DO YOU NEED ANY PRESCRIPTION? :YES GABAPENTIN DO YOU TAKE ANY IMMUNOSUPPRESSIVE MEDICATIONS? :NO IS THERE A CHANCE YOU COULD BE ? :NO ARE YOU BREAST FEEDING? :NO CURRENT MEDICATIONS TAKING IRON 325 MGS 1 TAB ORAL DAILY TAKING CYMBALTA 90 MG CAPSULE DELAYED RELEASE PARTICLES 1 CAPSULE ORALLY 30MG CAP AND 60 MG CAP DAILY TAKING VITAMIN D 1000 UNIT CAPSULE CAPSULE ORALLY ONCE A DAY TAKING FLONASE 50 MCG/ACT SUSPENSION 1 SPRAY IN EACH NOSTRIL NASALLY ONCE A DAY NEEDED TAKING SUMATRIPTAN SUCCINATE 50 MG TABLET 1 TABLET NEEDED ORALLY DIRECTED TAKING COLACE 100 MG CAPSULE 1 CAPSULE NEEDED ORALLY 3X/DAY TAKING SPIRONOLACTONE 25 MG TABLET 1 TABLET ORALLY DAILY TAKING MISOPROSTOL 200 MCG TABLET 1 TABLET WITH MEALS AND AT BEDTIME ORALLY FOUR TIMES A DAY TAKING FAMOTIDINE 20 MG TABLET DISINTEGRATING DIRECTED ORALLY BID TAKING PRAMIPEXOLE DIHYDROCHLORIDE 0.25 MG TABLET 1 TABLET ORALLY BID TAKING SUCRALFATE 1 GM TABLET 1 TABLET ON AN EMPTY STOMACH ORALLY FOUR TIMES DAILY TAKING CETIRIZINE HCL 10 MG TABLET ORALLY ONCE A DAY TAKING LOSARTAN POTASSIUM 25 MG TABLET ORALLY DAILY TAKING MONTELUKAST SODIUM 10 MG TABLET 1 TABLET ORALLY ONCE A DAY TAKING DITROPAN XL 10 MG TABLET EXTENDED RELEASE 24 HOUR 1 TABLET ORALLY ONCE A DAY TAKING OMEPRAZOLE 40 MG CAPSULE DELAYED RELEASE 1 CAPSULE ORALLY 2 TIMES DAILY TAKING VITAMIN B12 500 TABLET 500 MCG ORALLY DAILY TAKING MULTIVITAMIN 1 TABLET CHEWABLE 1 TAB(S) ORALLY DAILY TAKING CALCIUM CITRATE + 630 MG TABLET 2 TABLET WITH MEALS ORALLY TWICE A DAY TAKING LASIX 40 MG TABLET ORALLY DAILY TAKING METFORMIN HCL 1000 MG TABLET 1 TABLET WITH MEALS ORALLY TWICE A DAY TAKING ROBAXIN-750 750 MG TABLET 1 TABLET ORALLY Q8H PRN TAKING GABAPENTIN 800 MG TABLET 1 CAPSULE ORALLY FOR PAIN TID TAKING AMITRIPTYLINE HCL 75 MG TABLET 1 TABLET ORALLY ONCE A DAY TAKING LYRICA 200 MG CAPSULE 1 CAPSULE ORALLY Q8H TID MDD3 TAKING SPIRONOLACTONE 50 MG TABLET 1 TABLET ORALLY ONCE A DAY TAKING NYSTATIN 086980 UNIT/GM POWDER APPLY TO AFFECTED AREA S UNDER BREAST AND GROIN TWO TIMES A DAY EXTERNAL TAKING FERROUS SULFATE 325 (65 FE) MG TABLET 1 TABLET ORALLY ONCE A DAY NOT-TAKING KETOROLAC TROMETHAMINE 10 MG TABLET 1 TABLET WITH FOOD OR MILK NEEDED ORALLY EVERY 6 HRS NOT-TAKING BUPRENORPHINE HCL 300 MCG FILM 1 FILM TO THE GUM BUCALLY EVERY 12 HRS, NOTES: HAS NOT STARTED YET NOT-TAKING CLONIDINE HCL 0.1 MG TABLET 1 TABLET ORALLY Q8H PRN NOT-TAKING WELLBUTRIN 100 MG TABLET 1 TABLET ORALLY TWICE A DAY NOT-TAKING MORPHINE SULFATE ER 15 MG TABLET EXTENDED RELEASE 1 TABLET ORALLY EVERY 12 HRS MDD2 NOT-TAKING OXYCODONE HCL 5 MG TABLET 1 TABLET NEEDED ORALLY Q8H PRN MDD3 #50 TAB SHOULD LAST 30 DAYS NOT-TAKING ABILIFY 5 MG TABLET 1 TABLET ORALLY ONCE A DAY NOT-TAKING CYCLOBENZAPRINE HCL 10 MG TABLET DIRECTED ORALLY Q8H PRN PAIN #30 TAB SHOULD LAST 30 DAYS MEDICATION LIST REVIEWED AND RECONCILED WITH THE PATIENT PAST MEDICAL HISTORY DIABETES HYPERTENSION HYPERCHOLESTEREMIA OBESITY GERD (GASTROESOPHAGEAL REFLUX DISEASE) GASTRIC BYPASS ANXIETY BACK PAIN RIGHT HIP AND KNEE PAIN ALLERGIES SULFA (FOR ALLERGY USE ONLY): RASH - ALLERGY NSAIDS: GASTRIC BYPASS - CONTRAINDICATION SURGICAL HISTORY GASTRIC BYPASS 06/2015 BILAT CARPAL TUNNEL C SECTION CHOLECYSTECTOMY TONSILLECTOMY & ADENOIDECTOMY D&C 10/2017 ENDOSCOPY 11/2018 FAMILY HISTORY FATHER: , DIAGNOSED WITH UNSPECIFIED HEART DISEASE MOTHER: ALIVE, HYPERTENSION, DIABETES 2 BROTHER(S) . 1 SON(S) - HEALTHY. 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 SOCIAL HISTORY GENERAL: TOBACCO USE ARE YOU A:CURRENT SMOKER ARE YOU INTERESTED IN QUITTING?NOT READY TO QUIT COUNSELED THE PATIENT ON SMOKING EFFECTS, EDUCATION [id number]/01/2020 HOW MANY CIGARETTES A DAY DO YOU SMOKE?11-20 HOW SOON AFTER YOU WAKE UP DO YOU SMOKE YOUR FIRST CIGARETTE?WITHIN 5 MIN HOW OFTEN DO YOU SMOKE CIGARETTES?EVERY DAY PATIENT COUNSELED ON THE DANGERS OF TOBACCO USE AND URGED TO QUIT:03/05/2020 SMOKING CESSATION INFORMATION GIVEN03/05/2020 PAMPHLET GIVEN 08/16/18 LATEX QUESTIONNAIRE LATEX ALLERGY : HAVE YOU EVER DEVELOPED ANY TYPE OF REACTION AFTER HANDLING LATEX PRODUCTS SUCH RUBBER GLOVES, CONDOMS, DIAPHRAGMS, BALLOONS, SOCKS, OR UNDERWEAR?NO LATEX ALLERGY : HAVE YOU EVER DEVELOPED ANY TYPE OF REACTION DURING OR AFTER DENTAL APPOINTMENT, VAGINAL/RECTAL EXAMINATION, SURGICAL PROCEDURE, OR ANY OTHER EXPOSURE?NO LATEX RISK : HAVE YOU EVER HAD ANY DIFFICULTY BREATHING OR HIVES AFTER EATING OR HANDLING ANY FRUITS, OR VEGETABLES; SUCH KIWI, BANANAS, STONE FRUITS, OR CHESTNUTSNO LATEX RISK : DO YOU HAVE A PREVIOUS PERSONAL HISTORY OF MORE THAN NINE SURGERIES, SPINA BIFIDA, OR REPEATED CATHERIZATIONS? NO LATEX RISK : ARE YOU FREQUENTLY EXPOSED TO LATEX PRODUCTS IN YOUR OCCUPATION?NO DATE ASKED : 02/14/2020 ALCOHOL SCREENING DID YOU HAVE A DRINK CONTAINING ALCOHOL IN THE PAST YEAR?NO POINTS0 INTERPRETATIONNEGATIVE RECREATIONAL DRUG USE DRUG USE?NO CAFFEINE CAFFEINE USE?YES HOW OFTEN AND HOW MUCH? 2 BOTTLES [place] DEW/DAY ALEVISM [id number] NONE LANGUAGE LANGUAGES SPOKEN:AZERI EDUCATION LEVEL OF EDUCATION:NOT FINISHED COLLEGE LEARNING BARRIERS / SPECIAL NEEDS CHANGE FROM LAST VISIT?NO 09/15/19 BARRIERS TO LEARNING?NO HEARING IMPAIRED?NO VISION IMPAIRED?YES WEARS GLASSES COGNITIVELY IMPAIRED?NO :CORRECTIVE LENSES READINESS TO LEARN?YES LEARNING PREFERENCES?NO LEARNING CAPABILITIES PRESENT?YES EMOTIONAL BARRIERS?NO SPECIAL DEVICES?YES :CANE, WALKER CHALK TESTER NEEDED?NO DOMESTIC VIOLENCE DO YOU FEEL SAFE IN YOUR ENVIRONMENT?YES OCCUPATION: DISABLED. DIET: REGULAR. EXERCISE: WALKS. MARITAL STATUS: SINGLE. OTHERS AT HOME: CHILD, OTHER NON-RELATIVE. PAIN CLINIC PFS, CLERGY, PUBLIC HEALTH REFERRALS PFS REFERRAL NEEDED?NO CLERGY REFERRAL NEEDED?NO PUBLIC HEALTH REFERRAL NEEDED?NO WAS THE PROVIDER NOTIFIED OF ANY PERTINENT INFO? N/A HAS THE PATIENT BEEN EDUCATED REGARDING HIS/HER PLAN OF CARE?YES HAS THE PATIENT BEEN EDUCATED REGARDING PAIN, THE RISK FOR PAIN, THE IMPORTANCE OF EFFECTIVE PAIN MANAGEMENT, AND THE PAIN ASSESSMENT PROCESS?YES ADVANCE DIRECTIVE ADVANCE DIRECTIVE DISCUSSED WITH PATIENT:YES HCP - ARNULFO TAVERAS [phone] [facility]JOR DIAGNOSTIC PROCEDURE SURGERIES "FLUID ON LEGS" DEC OR 2018 KIDNEY INFECTION 05/18/2019 REVIEW OF SYSTEMS CONSTITUTIONAL: ANY RECENT FEVER NO . CHILLS NO . WEIGHT CHANGE OF UNKNOWN REASONS NO . GASTROENTEROLOGY: NEW UNEXPLAINABLE CHANGES IN BOWEL CONTROL NO . CONSTIPATION NO . GENITOURINARY: ANY NEW CHANGE IN BLADDER CONTROL? NO . NEUROLOGY: NEW ONSET DIZZINESS OR NEUROLOGICAL CHANGES NOT MENTIONED NO . NEW NUMBNESS OR PAIN PATTERNS NOT MENTIONED AND PERTINENT TO TODAY'S VISIT NO . CARDIOLOGY: NEW CHEST PRESSURE NO . NEW CHEST PAIN NO . RESPIRATORY: UNEXPLAINABLE COUGH NO . NEW SHORTNESS OF BREATH NO . VITAL SIGNS WT 292.8 LBS, HT 60.5 IN, BMI 56.24 INDEX, BP 119/67 MM HG, HR 98 /MIN, RR 18 /MIN, TEMP 96.7 F, OXYGEN SAT % 97%, SAFE IN ENV? (Y/N) Y, NA INITIALS AW 1428, REVIEWED BY: EM. EXAMINATION GENERAL EXAMINATION: GENERAL AWAKE,ALERT ,PLEAASANT . PSYCH AFFECT NORMAL . LUNGS: LUNG ARORA ARE CLEAR TO AUSCULTATION BILATERALLY. GOOD MOVEMENT OF AIR . HEART: S1, S2 IN A REGULAR RATE AND RHYTHM. NO SIGNIFICANT MURMURS, RUBS OR GALLOPS NOTED . MUSCULOSKELETAL:TRIGGER POINTS ELICITED OVER BILATERAL SHOULDER REGION. PAIN IN THIS REGION IS AGGRAVATED WITH RANGE OF JOINT MOTION OF THE NECK AND ARMS . CERVICAL: TRIGGER POINTS: CERVICAL AND TRAPEZIUS BILAT..PAIN IS AGGREVATED WITH ROJM NECK. ASSESSMENTS OTHER CHRONIC PAIN - G89.29 (PRIMARY) BILATERAL SACROILIITIS - M46.1 MYALGIA, OTHER SITE - M79.18 TREATMENT OTHER CHRONIC PAIN START KETOROLAC TROMETHAMINE TABLET, 10 MG, 1 TABLET WITH FOOD OR MILK NEEDED, ORALLY, EVERY 6 HRS, 5 DAY(S), 20, REFILLS 0 PAIN PROCEDURE LOGDATE OF PROCEDURE12/22/19PROCEDURE:BILATERAL SACROILIAC BLOCKAMOUNT OF PRE SEDATEBENADRYL 25MG, VALIUM 5MG, OXYCODONE 10MGRESULT:CONTINUES TO BENEFIT WITH IMPROVED PAIN CONTROL NOTES: TRIGGER POINT INJECTIONS BILATERAL NECK AND SHOULDERS. PROCEDURE CODES FA211 ESTABILISHED PATIENT [facility] CHARGE DISPOSITION & COMMUNICATION FOLLOW UP POST PROCEDURE (REASON: TRIGGER POINT INJECTIONS BILATERAL NECK AND SHOULDERS) ELECTRONICALLY SIGNED BY STEPHAN DRAKE ON 03/20/2020 AT 01:42 PM EST DISCLAIMER : THIS IS A VISIT SUMMARY EXTRACTED FROM THE [employer] CHART. IT IS NOT A COPY OF THE [employer] PROGRESS NOTE. JUSTUS
== END ==
LOC: M PAIN 14:30
PROVIDERS: ATTEND Nurse Practitioner Family
DX: G89.29 Other chronic pain (principal); M46.1 Sacroiliitis, not elsewhere classified; M79.18 Myalgia, other site; E11.9 Type 2 diabetes mellitus without complications; I10 Essential (primary) hypertension; E78.00 Pure hypercholesterolemia, unspecified; E66.9 Obesity, unspecified; K21.9 Gastro-esophageal reflux disease without esophagitis; F41.9 Anxiety disorder, unspecified; Z98.84 Bariatric surgery status; F17.210 Nicotine dependence, cigarettes, uncomplicated; Z79.84 Long term (current) use of oral hypoglycemic drugs; Z79.899 Other long term (current) drug therapy; Z88.2 Allergy status to sulfonamides; Z88.6 Allergy status to analgesic agent; Z68.43 Body mass index [BMI] 50.0-59.9, adult

== ENCOUNTER 2020-03-28 20:05 | Emergency (ER) | payer OTHER ==
[~2020-03-28] VITALS: Ht 154.9 cm; Wt 136.4 kg
[2020-03-28] MEDS ORDERED: ONDANSETRON 4MG/2ML VIAL IV ONE (21:00)
[2020-03-28] MEDS ORDERED: MORPHINE 4 MG/ML 1ML VIAL/SYRINGE (J2270) IV ONE (21:00)
[2020-03-28 21:31] LABS: BASO # 0.1 10^3/uL (0.0-0.2); BASO % 0.4 % (0.0-1.0); EOS # 0.6 10^3/uL (0.0-0.5); EOS % 3.8 % (0.0-3.0); HEMATOCRIT 39.7 % (36.0-47.0); HEMOGLOBIN 12.7 g/dl (12.0-15.5); LYMPH # 5.4 10^3/uL (1.5-5.0); LYMPH % 36.8 % (24.0-44.0); MEAN CORPUSCULAR VOLUME 96.8 fl (80.0-96.0); MONO % 7.1 % (0.0-5.0); NEUTROPHILS # 7.6 10^3/uL (1.5-8.5); NEUTROPHILS % 51.4 % (36.0-66.0); PLATELET COUNT, AUTOMATED 363 10^3/uL (150-450)
[2020-03-28 21:39] LABS: WHITE BLOOD COUNT 14.7 10^3/uL (4.0-10.0)
--- NOTE | 2020-03-28 21:39 | REPVR ---
PROCEDURE INFORMATION: Exam: US Duplex Left Lower Extremity Veins, Limited Exam date and time: 03/28/2020 9:30 PM Age: 44 years old Clinical indication: Pain; Leg, upper; Left; Additional info: Lle US TECHNIQUE: Imaging protocol: Real-time Duplex ultrasound of the Left Lower Extremity with 2-D moreno scale, color Doppler flow and spectral waveform analysis with image documentation. Limited exam focused on the left lower extremity veins. COMPARISON: US Duplex, Ext,LOWER veins,unilat 03/07/2018 2:11 PM FINDINGS: Left deep veins: Unremarkable. The common femoral, femoral, proximal profunda femoral and popliteal veins are patent without thrombus. Normal Doppler waveforms. Normal compressibility and/or augmentation response. Left superficial veins: Unremarkable. Saphenofemoral junction is patent without thrombus. Soft tissues: Unremarkable. IMPRESSION: No evidence of deep vein thrombosis. Electronically signed by: Juancho Pillai On 03/28/2020 21:38:50 PM
[2020-03-28 22:17] LABS: BLOOD UREA NITROGEN 13 MG/DL (7-18); CALCIUM LEVEL 9.1 MG/DL (8.5-10.1); CARBON DIOXIDE LEVEL 28 MEQ/L (21-32); CHLORIDE LEVEL 106 MEQ/L (98-107); CREATININE FOR GFR 0.86 MG/DL (0.55-1.30); GLOMERULAR FILTRATION RATE > 60.0 (>58); GLUCOSE, FASTING 123 MG/DL (70-100); SODIUM LEVEL 139 MEQ/L (136-145)
--- NOTE | 2020-03-28 22:21 | REPVR ---
PROCEDURE INFORMATION: Exam: XR Left Hip with Pelvis when Performed Exam date and time: 03/28/2020 10:14 PM Age: 44 years old Clinical indication: Hip pain; Left hip; Additional info: Left hip pain TECHNIQUE: Imaging protocol: XR Left hip with pelvis when performed. Views: 2 or 3 views. COMPARISON: CR Hip, Ap,Lat 12/17/2019 10:40 AM FINDINGS: Bones/joints: Unremarkable. No acute fracture. Soft tissues: Unremarkable. IMPRESSION: No acute findings. Electronically signed by: Juancho Pillai On 03/28/2020 22:20:52 PM
[2020-03-28] MEDS ORDERED: ACETAMINOPHEN 500 MG TAB PO ONE (23:00)
[2020-03-29 00:11] LABS: CK-MB VALUE MASS 1.1 NG/ML (<3.6); CPK CREATINE PHOSPHOKINASE 74 U/L (26-192); MB/CK RELATIVE INDEX 1.49 (< OR =4); NT-PRO BNP 83 PG/ML (<125); TROPONIN I < 0.02 NG/ML (< 0.10)
--- NOTE | 2020-03-29 00:23 | REPVR ---
PROCEDURE INFORMATION: Exam: XR Chest, 2 Views Exam date and time: 03/28/2020 12:13 AM Age: 44 years old Clinical indication: Other: Edema; Additional info: Le edema TECHNIQUE: Imaging protocol: XR of the chest Views: 2 views. COMPARISON: CR Chest, 2 view PA, Lat 05/18/2019 10:32 PM FINDINGS: Lungs: No consolidation. Pleural space: Unremarkable. No pleural effusion. No pneumothorax. Heart/Mediastinum: Stable cardiac silhouette. Bones/joints: Mild degenerative change involving the spine. IMPRESSION: No acute process. Electronically signed by: Juancho Pillai On 03/29/2020 00:23:23 AM
[2020-03-29] MEDS ORDERED: LIDOCAINE 5% (LIDODERM) PATCH TD ONE (00:30)
[2020-03-29 00:50] LABS: C REACTIVE PROTEIN QUANTITATIV 4.44 MG/DL (0.00-0.30)
[2020-03-29] MEDS ORDERED: LIDO5DIS41 TOP (00:50)
[2020-03-29 01:10] LABS: ERYTHROCYTE SEDIMENTATION RATE 52 mm/hr (0-20)
[2020-03-29 01:50] VITALS: BP 115/71
[2020-03-29] MEDS ORDERED: **NOTE PATIENT COMMENT** MISC XX SCH (21:00)
--- NOTE | 2020-03-30 09:22 | ECGEPIP ---
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
== END 2020-03-29 01:53 | disposition home or self-care (01) ==
LOC: M ED 20:05
DX: M54.32 Sciatica, left side (principal); R60.0 Localized edema; E11.9 Type 2 diabetes mellitus without complications; I10 Essential (primary) hypertension; J44.9 Chronic obstructive pulmonary disease, unspecified; F33.9 Major depressive disorder, recurrent, unspecified; F41.9 Anxiety disorder, unspecified; E78.5 Hyperlipidemia, unspecified; G43.909 Migraine, unspecified, not intractable, without status migrainosus; G47.33 Obstructive sleep apnea (adult) (pediatric); G62.9 Polyneuropathy, unspecified; K21.9 Gastro-esophageal reflux disease without esophagitis; E66.9 Obesity, unspecified; Z99.89 Dependence on other enabling machines and devices; Z79.899 Other long term (current) drug therapy; Z79.84 Long term (current) use of oral hypoglycemic drugs; Z88.1 Allergy status to other antibiotic agents; Z88.2 Allergy status to sulfonamides; Z88.8 Allergy status to other drugs, medicaments and biological substances; F17.210 Nicotine dependence, cigarettes, uncomplicated
CPT/HCPCS: 71046; 73502; 80048; 82550; 82553; 83880; 85025; 85652; 86140; 93005; 93971; 96374; 96375; 99284; J2270; J2405

== ENCOUNTER → 2020-04-06 | Outpatient (CLI) | payer OTHER ==
[~2020-04-06] MED LIST changes: +LIDO5DIS41 TOP
[2020-04-06 10:41] LABS: BASO # 0.1 10^3/uL (0.0-0.2); BASO % 0.3 % (0.0-1.0); EOS % 0.1 % (0.0-3.0); HEMATOCRIT 41.5 % (36.0-47.0); LYMPH # 3.1 10^3/uL (1.5-5.0); LYMPH % 17.4 % (24.0-44.0); MEAN CORPUSCULAR HEMOGLOBIN 29.9 pg (27.0-33.0); MEAN CORPUSCULAR HGB CONC 31.3 g/dl (32.0-36.5); MEAN CORPUSCULAR VOLUME 95.4 fl (80.0-96.0); MONO # 1.2 10^3/uL (0.0-0.8); MONO % 6.6 % (0.0-5.0); NEUTROPHILS # 13.1 10^3/uL (1.5-8.5); NEUTROPHILS % 74.6 % (36.0-66.0); PLATELET COUNT, AUTOMATED 395 10^3/uL (150-450); RED BLOOD COUNT 4.35 10^6/uL (4.00-5.40); WHITE BLOOD COUNT 17.6 10^3/uL (4.0-10.0)
[2020-04-06 11:08] LABS: ALBUMIN 3.2 GM/DL (3.2-5.2); ALT/SGPT 24 U/L (12-78); BILIRUBIN,TOTAL 0.2 MG/DL (0.2-1.0); BLOOD UREA NITROGEN 12 MG/DL (7-18); CALCIUM LEVEL 9.1 MG/DL (8.5-10.1); CARBON DIOXIDE LEVEL 26 MEQ/L (21-32); CHLORIDE LEVEL 107 MEQ/L (98-107); CHOLESTEROL LEVEL 172 MG/DL (<200); CHOLESTEROL RISK RATIO 3.127 (<5); CREATININE FOR GFR 0.79 MG/DL (0.55-1.30); FREE T4 0.95 NG/DL (0.76-1.46); GLOMERULAR FILTRATION RATE > 60.0 (>58); GLUCOSE, FASTING 182 MG/DL (70-100); HDL CHOLESTEROL 55 MG/DL (>40); IRON (FE) 53 UG/DL (50-170); LDL CHOLESTEROL 99 MG/DL (<100); NON-HDL-C 117 MG/DL; POTASSIUM SERUM 4.1 MEQ/L (3.5-5.1); SODIUM LEVEL 141 MEQ/L (136-145); THYROID STIMULATING HORMONE 0.409 uIU/ML (0.358-3.740); TOTAL IRON BINDING CAPACITY 279 UG/DL (250-450); TRIGLYCERIDES LEVEL 91 MG/DL (<150)
[2020-04-06 11:09] LABS: HEMOGLOBIN A1c 6.5 %
[2020-04-08 13:41] LABS: TOTAL 25(OH) VITAMIN D 67.5 NG/ML (30.0-100.0); VITAMIN B12 LEVEL 1352 PG/ML
== END ==
LOC: M LAB 09:39
PROVIDERS: ATTEND Physician Assistant
DX: D72.9 Disorder of white blood cells, unspecified (principal); E11.9 Type 2 diabetes mellitus without complications; Z98.84 Bariatric surgery status

== ENCOUNTER → 2020-04-24 | Outpatient (CLI) | payer OTHER ==
[~2020-04-24] MED LIST changes: +GAVICHW5 PO; +OXYB5TAB10 PO
== END ==
LOC: M LABSMTC 13:44
PROVIDERS: ATTEND Anesthesiology
DX: Z01.812 Encounter for preprocedural laboratory examination (principal); Z20.822 Contact with and (suspected) exposure to COVID-19

== ENCOUNTER → 2020-04-28 | Outpatient (CLI) | payer OTHER ==
[~2020-04-28] MED LIST changes: +ZOFR4TAB16 PO
== END ==
LOC: M LABSMTC 10:26
PROVIDERS: ATTEND Anesthesiology
DX: Z01.812 Encounter for preprocedural laboratory examination (principal); Z20.822 Contact with and (suspected) exposure to COVID-19

== ENCOUNTER 2020-04-30 16:06 | Emergency (ER) | payer OTHER ==
[~2020-04-30] VITALS: Ht 154.9 cm; Wt 134.1 kg
[~2020-04-30 16:06] MED LIST changes: -AMIT25TA PO; +AMIT25TA17 PO; +GABA-282 PO; -GABA-843 PO; -ZOFR4TAB16 PO
--- OUTSIDE RECORDS SUMMARY | 2020-04-30 16:15 | CCD | Continuity of Care Document ---
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 Name Role Phone DaxMarlene Benitez Goran DO AUTM Problems Description No Information Available Social History Type Date Description Comments Sex Unknown ETOH Use Denies alcohol use Tobacco Use Start: Unknown Heavy tobacco smoker (more than 10 cigarettes/day) Smoking Status Reviewed: 04/23/20 Heavy tobacco smoker (more than 10 cigarettes/day) Allergies, Adverse Reactions, Alerts Active Allergies Reaction Severity Comments Date Sulfa 07/22/2018 NSAIDs 07/22/2018 Medications Active Medications SIG Qnty Indications Ordering Provide r Date Proair HFA 108(90Base) mcg/Act Aer osol inhale 2 puffs every 4-6 hours as needed for cough or wheeze 8.500gm J20.9 Valentin Yarbrough JR., M.D. 07/22/2018 Pramipexole Dihydrochloride 0.25mg Tablets Take One Tablet By Mouth Twice A Day Unkn own Buspirone HCL 10mg Tablets Take One Tablet By Mouth Twice A Day Unknown Vitamin B12 1000mcg Tablets ER Unknown Mvi Unknown Sucralfate 1gm Tablets Unknown Metformin HCL 1000mg Tablets 1 by mouth twice a day Unknown Pregabalin 200mg Capsules tid Unknown Famotidine 20mg Tablets 1 twi ce a day Unknown Lasix 40mg Tablets Unknown Spironolactone 25mg Tablets Unknown Vitamin D (Ergocalciferol) [id number] Capsules Unknown Cyclobenzaprine HCL 10mg Tablets take one at bedtime Unknown Bupropion HCL 100mg Tablets Unknown Sumatriptan Succinate 50mg Tablets take 1 tablet by mouth once at onset of headache, may repeat once after 2 hours if no relief Unknown Ferretts 325(106Fe) mg Tablets Unknown Amitriptyline HCL 25mg Tablets Unknown Duloxetine HCL 60mg Caps DR Part Unknown Duloxetine HCL 30mg Caps DR Part take daily Unknown Omeprazole 40mg Capsules DR 1 by mouth every day Unknown Losartan Potassium 25mg Tablets 1 tablet by mouth every daily Unknown Oxybutynin Chloride ER 10mg Tablets ER 24HR Unknown Gabapentin 800mg Tablets 1 tab by mouth three times a day Unknown Misoprostol 200mcg Tablets Unknown Immunizations CPT Code Status Date Vaccine Reaction Lot # [id number] Given 10/02/2019 PPD- TB Intradermal Test 6- 0mm,negative read by Neetu Hodge,[employer]-C [id number] Vital Signs Date Vital Result Comment 04/23/2020 2:16pm BP Systolic 144 mmHg BP Diastolic 77 mmHg Heart Rate 99 /min Respiratory Rate 16 /min O2 % BldC Oximetry 99 % Body Temperature 98.6 F Weight 295.00 lb Height 61 inches 5'1" BMI (Body Mass Index) 55.7 kg/m2 Pain Level 8 10/02/2019 4:56pm BP Systolic 143 mmHg BP Diastolic 76 mmHg Heart Rate 82 /min Respiratory Rate 18 /min O2 % BldC Oximetry 98 % Body Temperature 98.8 F Weight 295.00 lb Height 61 inches 5'1" BMI (Body Mass Index) 55.7 kg/m2 Results Description No Information Available Procedures Description No Information Available Medical Devices Description No Information Available Encounters Description No Information Available Assessments Description No Information Available Plan of Treatment No Information Available Functional Status Description No Information Available Mental Status Description No Information Available Referrals Description No Information Available
--- OUTSIDE RECORDS SUMMARY | 2020-04-30 16:15 | CCD | Continuity of Care Document ---
Author Author Mara ARGUETA PA-C Organization Unknown Address [address] [facility] [address] [place] [address] Phone [phone] Care Team Providers Care Last Dipper Name Role Phone Marlene Chapman DO AUTM [phone] Problems Active Problems Provider Date Type 2 diabetes mellitus Onset: 10/04/19 15 Social History Type Date Description Comments Sex Unknown ETOH Use Denies alcohol use Tobacco Use Start: Unknown Patient is a current smoker, smo kes every day smokes roughly a half a pack a day Smoking Status Reviewed: 01/29/20 Patient is a current smoker, smokes every day smokes roughly a half a pack a day Allergies, Adverse Reactions, Alerts Active Allergies Reaction Severity Comments Date sulfa drugs 10/03/2014 NSAIDS 11/30/2018 Inactive Allergies NKDA 10/03/2014 Medications Active Medications SIG Qnty Indications Ordering Provide r Date Tylenol With Codeine #3 300-30mg T ablets take 1 tablet by mouth every 12 hours as needed for pain 10tabs M16 .12 D. Montrell Chinchilla MD 10/17/2019 Calcium Citrate + D Tablets by mouth every day Unknown Lasix 20mg Tablets take one tablet by mouth every morning Unknown Metformin HCL ER (Osm) 1000mg Tablets ER 24HR take one tablet by mouth twice a day Unkn own Ferrous Sulfate 325(65Fe) mg Table ts 1 by mouth every day Unknown Gabapentin 600mg Tablets 1 by mouth three times a day Unknown Multivitamin Adult Tablets 1 by mouth every day Unknown Sumatriptan Unknown Methocarbamol 500mg Tablets one to two tablets three times a day as needed Unknown Vitamin B12 Tablets Unknown Omeprazole 40mg Capsules DR 1 by mouth every day Unknown Aripiprazole 5mg Tablets Unknown Vitamin D2 1.25mg Tablets Unknown Fluticasone Propionate 50mcg/Act Suspension 2 puffs a day Unknown Montelukast Sodium 10mg Tablets every day Unknown Duloxetine HCL 30mg Caps DR Part 1 by mouth once day Unknown Duloxetine HCL 60mg Caps DR Part 1 by mouth every day Unknown Oxybutynin Chloride ER 10mg Tablets ER 24HR 1 by mouth every day Unknown 000 Cetirizine HCL 10mg Chewtabs daily Unknown Aspirin 81mg Chewtabs as need ed Unknown Losartan Potassium 25mg Tablets 1 by mouth every day Unknown Immunizations Description No Information Available Vital Signs Date Vital Result Comment 02/27/2020 3:18pm Body Temperature 96.8 F 02/27/2020 3:17pm Body Temperature 968.0 F Height 61 inches 5'1" Weight 294.00 lb BMI (Body Mass Index) 55.5 kg/m2 Results Description No Information Available Procedures Date Code Description Status 04/05/2020 96480 Inject/Drain Joint/Bursa Major C ompleted 02/27/2020 80868 X-Ray Wrist Complete Completed 01/29/2020 02138 X-Ray Hip Unilateral With Pelvis 2-3 Views Completed 12/28/2019 87168 X-Ray Hip Unilateral With Pelvis 2-3 Views Completed 10/17/2019 35408 X-Ray Hip Unilateral With Pelvis 2-3 Views Completed Medical Devices Description No Information Available Encounters Type Date Location Provider Dx Diagnosis Office Visit 04/05/2020 1:00p [place] Nicole Argueta PA-C M7 0.62 Trochanteric bursitis, left hip Office Visit 02/27/2020 2:30p [place] MIGUEL ÁNGEL Miller G56.03 Carpal tunnel syndrome, bilateral upper limbs Office Visit 01/29/2020 3:00p MIGUEL ÁNGEL Godfrey M16.12 Unilateral primary osteoarthritis, left hip Office Visit 12/28/2019 1:15p [place] MIGUEL ÁNGEL Miller M84.352A Stress fracture, left femur, initial encounter for fracture E66.01 Morbid (severe) obesity due to excess calories F17.210 Nicotine dependence, cigaret luz, uncomplicated Office Visit 11/23/2019 9:40a [place] MIGUEL ÁNGEL Miller M25.452 Effusion, left hip M16.12 Unilateral primary osteoarth ritis, left hip Office Visit 10/17/2019 1:45p [place] MIGUEL ÁNGEL Miller M25.552 Pain in left hip M16.0 Bilateral primary osteoarthr itis of hip Assessments Date Code Description Provider 04/05/2020 M70.62 Trochanteric bursitis, left hip Nicole Argueta PA-C 02/27/2020 G56.03 Carpal tunnel syndrome, bilatera l upper limbs MIGUEL ÁNGEL Miller 02/27/2020 G56.03 Carpal tunnel syndrome, bilatera l upper limbs MIGUEL ÁNGEL Miller 01/29/2020 M16.12 Unilateral primary osteoarthriti s, left hip MIGUEL ÁNGEL Miller 12/28/2019 M84.352A Stress fracture, left femur, ini tial encounter for fracture MIGUEL ÁNGEL Miller 12/28/2019 E66.01 Morbid (severe) obesity due to e xcess calories MIGUEL ÁNGEL Miller 12/28/2019 F17.210 Nicotine dependence, cigarettes, uncomplicated MIGUEL ÁNGEL Miller 11/23/2019 M25.452 Effusion, left hip MIGUEL ÁNGEL Roberto 11/23/2019 M16.12 Unilateral primary osteoarthriti s, left hip MIGUEL ÁNGEL Miller 10/17/2019 M25.552 Pain in left hip MIGUEL ÁNGEL Miller 10/17/2019 M16.0 Bilateral primary osteoarthritis of hip MIGUEL ÁNGEL Miller Plan of Treatment Future Appointment(s):* 04/18/2020 8:30 am - Shayan Melendez MD at [place] 04/05/2020 - Nicole Argueta PA-C* M70.62 Trochanteric bursitis, left hip Functional Status Description No Information Available Mental Status Description No Information Available Referrals Refer to Reason for Referral Status Appt Date Vicente Sanchez I, Pac EMG NO AUTH REQUIRED TO SCHEDULING NT Crea rubi [facility] [address] [place] [address] [phone]
--- OUTSIDE RECORDS SUMMARY | 2020-04-30 16:15 | CCD | Continuity of Care Document ---
Author Author Mara ARGUETA PABreC Organization Unknown Address [address] [address] Phone [phone] Care Team Providers Care Barrel Handler Name Role Phone Marlene Chapman DO AUTM Problems Active Problems Provider Date Type 2 [...] Available Procedures Date Code Description Status 04/05/2020 14173 Inject/Drain Joint/Bursa Major C ompleted 02/27/2020 84134 X-Ray Wrist Complete Completed 01/29/2020 78134 X-Ray Hip Unilateral With Pelvis 2-3 Views Completed 12/28/2019 10935 X-Ray Hip Unilateral With Pelvis 2-3 Views Completed Medical Devices Description No Information Available Encounters Type Date Location Provider Dx Diagnosis Office Visit 04/05/2020 1:[place]p [place]-C M7 0.62 Trochanteric bursitis, left hip Office Visit 02/27/2020 2:30p MIGUEL ÁNGEL Godfry[place] G56.03 Carpal tunnel syndrome, bilateral upper limbs Office Visit 01/29/2020 3:00p MIGUEL ÁNGEL Godfrey M16.12 Unilateral primary osteoarthritis, left hip Office Visit 12/28/2019 1:15p MIGUEL ÁNGEL Godfrey M84.352A Stress fracture, left femur, initial encounter for fracture E66.01 Morbid (severe) obesity due to excess calories F17.210 Nicotine dependence, cigaret luz, uncomplicated Office Visit 11/23/2019 9:40a [place] MIGUEL ÁNGEL Miller M25.452 Effusion, left hip M16.12 Unilateral primary osteoarth ritis, left hip Assessments Date Code Description Provider 04/05/2020 [...] osteoarthriti s, left hip MIGUEL ÁNGEL Miller Plan of Treatment Future Appointment(s):* 05/08/2020 8:30 am - MIGUEL ÁNGEL Miller at [place] 04/05/2020 - Nicole Argueta PA-C* M70.62 Trochanteric bursitis, left hip Functional Status Description No Information Available Mental Status Description No Information Available Referrals Refer to Dr Reason for Referral Status Appt Date Vicente Sanchez Pac EMG NO AUTH REQUIRED TO SCHEDULING NT Crea rubi [address] [place] [address] [address] [place] [address] [phone]
--- OUTSIDE RECORDS SUMMARY | 2020-04-30 16:15 | CCD ---
Continuity of Care Document (CCD) Created on: 04/23/2020 Mara Mccray External Reference #: [id number] : [id number] Sex: Female Author Author Mara BARNETT PA Organization Unknown Address [address] [place] [address] Phone [phone] Care Team Providers Care Director Social Service Name Role Phone DaxEmmanuel Marlene Goran DO AUTM [phone] Problems Description No Information Available Social History [...] SIG Qnty Indications Ordering Provide r Date Lidocaine 5% Patches 1 patch apply to affected area on back or leg q12 as needed 30units M54.16 Valentin Yarbrough JR., M.D. 04/23/2020 Proair HFA 108(90Base) mcg/Act Aer osol inhale [...] Spironolactone 25mg Tablets Unknown Vitamin D (Ergocalciferol) 89333Recs Capsules Unknown Cyclobenzaprine HCL 10mg Tablets take [...] Code Status Date Vaccine Reaction Lot # [id number] Given 10/02/2019 PPD- TB Intradermal Test 09-17 0mm,negative read by Neetu Hodge,[facility] [id number] Vital Signs Date Vital Result Comment 04/23/2020 [...] Date Location Provider Dx Diagnosis Office Visit 04/23/2020 3:15p Main Office MIGUEL ÁNGEL Holliday M54.1 6 Radiculopathy, lumbar region Assessments Date Code Description Provider 04/23/2020 M54.16 Radiculopathy, lumbar region MIGUEL ÁNGEL Marks Plan of Treatment 04/23/2020 - MIGUEL ÁNGEL Holliday* M54.16 Radiculopathy, lumbar region* New Medication:* Lidocaine 5 % - 1 patch apply to affected area on back or leg q12 as needed * Comments:* I am unable to change the med plan she has established with pain management though I am willing to rx additional lidocaine patches. she must go back to prescribers for additional or any change to her plan. Functional Status Description No Information Available Mental Status Description No Information Available Referrals Description No Information Available
--- OUTSIDE RECORDS SUMMARY | 2020-04-30 16:15 | CCD ---
Author Author Mara Lizama Organization Unknown Address [address] [place] [address] Phone Care Team Providers Care Machine Feeder Name Role Phone Radha Lizama PCP Allergies, Adverse Reactions, Alerts No Data in Section Problem List Concept Problem Description Status Start Date Created Date Resolv ed Date Snomed Code F33.1 Major Depressive Disorder, Recurrent episode, Moderate Active 04/17/2020 F17.200 Tobacco Use Disorder, Moderate Active 0 F12.10 Cannabis Use Disorder, Mild Active 04/17/2020 Medications Rx Norm Medication Route Route Concept Start Date Stop Date Dosage Freeman quency Duration Formula Strength Dosage Form Dosage Form Code Dosage Description Medication Id Account Npid Author First Name Author Last Name Taxonomy Code Taxonomy Desc Phone Number [id number] nicotine to skin 03/23/2018 once a day 21 mg/24 h r patch 24 hour [id number] Radha Lizama [id number] [facility] [id number] Cymbalta 04/13/2019 60 mg capsule,delayed r elease(DR/EC) 94741 [id number] Radha Lizama [id number] Psychiatric[facility]ental [facility] [id number] Cymbalta 04/13/2019 30 mg capsule,delayed r elease(DR/EC) [id number] [id number] Radha Lizama [id number] Psychiatric[facility]Mental [facility] [id number] buspirone by mouth [id number] 03/06/2020 06/04/2020 twice a day 30 15 mg tablet [id number] Radha Lizama [id number] P sychiatric/Mental Health [id number] Social History Social History Element Description Concept Effective Date Smoking Status Unknown if ever smoked [id number] Immunizations No Data in Section Vital Signs Encounter Date Height Ins Weight Lbs Bmi Bp Systolic Bp Diastoli c Oxygen Saturation Respiration Rate Pulse Rate Body Temp Head Circumference Heigh t Lying 04/17/2020 0.00 0.00 0.00 0 0 0.00 0 0 0.00 0.0 0.0 0 Procedures Date Concept Id Description Targeted Site Concept Targeted Site Concept Type 04/17/2020 [id number] [facility] Telemed E/M Lvl 3--Est pt CPT Patient has no history of implantable de vices Encounters Encounter Start Date End Date Encounter Type Description Diagnosis Di agnosis Desc Location Author First Name Author Last Name Npid Taxonomy Cod e Taxonomy Desc Phone Number Location Addr1 Location Addr2 Location [facility] Location Sta te Location Zip [id number] 04/17/2020 04/17/2020 [id number] [facility] Telemed E/M Lvl 3--Est p t F33.1 Major depressive disorder, recurrent, moderate [facility] [id number] Psychiatric/Mental Health [id number] [address] [address] Plan of Treatment No Data in Section Lab Results No Data in Section Instructions No Data in Section Functional Cognitive Status No Data in Section Insurance Providers Insurance Id Policy Effective Date Policy Thru Date [employer] N lily [id number] 2015 [id number]
--- OUTSIDE RECORDS SUMMARY | 2020-04-30 16:15 | CCD | Continuity of Care Document ---
Author Author Mara HOWELL M.D Organization Unknown Address [address] [place] [address] Phone [phone] Care Team Providers Care Reliability Specialist Name Role Phone Tu Handy MD AUT [phone] Hayden Iverson MD AUT [phone] Problems Active Problems Provider Date Gastroesophageal reflux disease Maninder Hoewll M.D. Ons et: 04/23/2020 Abnormal liver function Maninder Howell M.D. Onset: 09/18 Social History Type Date Description Comments Sex Unknown ETOH Use Denies alcohol use Tobacco Use Start: Unknown Patient is a current smoker, smo kes every day Allergies, Adverse Reactions, Alerts Description No Known Drug Allergies Medications Active Medications SIG Qnty Indications Ordering Provide r Date [facility] Artificial Tears 1-0.3% Solution Unknown Pramipexole Dihydrochloride 0.25mg Tablets Take One Tablet By Mouth Twice A Day Maximum Daily Dose Two Ta blets Unknown D3-50 1.25mg (54308 Ut) Capsules Unknown B Complex-B12 Tablets Unknown Sucralfate 1gm Tablets Unknown Multiple Vitamin Tablets Unknown Calcium Citrate + D3 [id number] Tablets Unknown Dok 100mg Capsules Take One Capsule By Mouth Three Times A Day Unknown 00 Methocarbamol 750mg Tablets Clarisa Steward Crna Spironolactone 25mg Tablets Take One Tablet By Mouth Every Day Unknown Furosemide 40mg Tablets Take One Tablet By Mouth Every Day Unknown Albuterol Sulfate HFA 108(90Base) mcg/Act Aerosol Inhale Two Puffs By Mouth Four Times A Day as Needed Unknown Nystatin [id number] Powder Apply To Affected Area S Under Breast And Groin Two Times A Day Unknown Misoprostol 200mcg Tablets Unknown Buspirone HCL 10mg Tablets Unknown Ferretts 325(106Fe) mg Tablets Unknown Lyrica 200mg Capsules Unknown Amitriptyline HCL 25mg Tablets Unknown Metformin HCL 1000mg Tablets Unknown Fluticasone Propionate 50mcg/Act Suspension Unknown Sumatriptan Succinate 50mg Tablets Unknown Gabapentin 300mg Capsules Take One Capsule By Mouth Twice A Day Unknown Montelukast Sodium 10mg Tablets Take One Tablet By Mouth Every Day Unknown Losartan Potassium 25mg Tablets Take One Tablet By Mouth Every Day Unknown Duloxetine HCL 30mg Caps DR Part Take One Capsule By Mouth In The Evening Unknown Duloxetine HCL 60mg Caps DR Part Take One Capsule By Mouth In The Evening Unknown Omeprazole 40mg Capsules DR Take One Capsule By Mouth Twice A Day Unknown Cetirizine HCL 10mg Tablets Take One Tablet By Mouth Every Day Unknown History Medications Gaviscon Extra Strength 160-105mg Chewtabs 1 tab by mouth four times a day before meals,and at bedtime 360u nits Manidner Howell M.D. 03/19/2020 - 04/22/2020 Immunizations Description No Information Available Vital Signs Date Vital Result Comment 04/23/2020 12:59pm Height 61 inches 5'1" Weight 295.00 lb BP Systolic 137 mmHg BP Diastolic 77 mmHg Heart Rate 93 /min BMI (Body Mass Index) 55.7 kg/m2 Weight 133.812 kg Body Temperature 97.2 F 03/19/2020 1:09pm Height 61 inches 5'1" Weight 292.00 lb BP Systolic 124 mmHg BP Diastolic 74 mmHg Heart Rate 109 /min BMI (Body Mass Index) 55.2 kg/m2 Weight 132.451 kg Body Temperature 97.0 F Results Description No Information Available Procedures Description No Information Available Medical Devices Description No Information Available Encounters Type Date Location Provider Dx Diagnosis Office Visit 04/23/2020 12:45p Main Office Maninder Howell M.D. R 12 Heartburn Office Visit 03/19/2020 1:00p Main Office Maninder Howell M.D. R 12 Heartburn Assessments Date Code Description Provider 04/23/2020 R12 Heartburn Maninder collins M.D. 03/19/2020 R12 Heartburn Maninder collins M.D. Plan of Treatment Future Appointment(s):* 05/13/2020 11:45 am - Maninder Howell M.D. at Main Office 04/23/2020 - Maninder Howell M.D.* R12 Heartburn* Comments:* 45 yo wf who presents for a h/o heartburn. She has had gastric gypass 2 yrs ago. No c/o abdominal pain, weight loss, change in bowel habits, or rectal bleeding. No family h/o colon cancer. No h/o chest pain, or sob. Pt has been advised to take a ppi bid + gaviscon qid to help with breakthrough heartburn. Plan:1. Maintain meds.2. Egd + bx. Functional Status Description No Information Available Mental Status Description No Information Available Referrals Description No Information Available
--- OUTSIDE RECORDS SUMMARY | 2020-04-30 16:15 | CCD | Continuity of Care Document ---
Author Author Mara KUMAR PA Organization Unknown Address [address] [place] [address] [address] [place] [address] Phone [phone] Care Team Providers Care Photographic Laboratory Supervisor Name Role Phone Marlene Chapman D.O. AUTM [phone] Nelly Vang AUTM [phone] Problems Active Problems Provider Date Essential hypertension Onset: 02/20/2020 Type 2 diabetes mellitus MIGUEL ÁNGEL Jones Onset: 020 Gastroesophageal reflux disease MIGUEL ÁNGEL Jones Onset: 03/27/2020 Migraine MIGUEL ÁNGEL Jones Onset: 03/27/2020 Anxiety MIGUEL ÁNGEL Jones Onset: 03/27/2020 Depressive disorder MIGUEL ÁNGEL Jones Onset: 03/27/2020 Obstructive sleep apnea syndrome MIGUEL ÁNGEL Jones Onset: 03/27/2020 Tobacco user MIGUEL ÁNGEL Jones Onset: 03/27/2020 Bariatric operative procedure MIGUEL ÁNGEL Jones Onset: Social History Type Date Description Comments Sex Unknown Tobacco Use Start: Unknown Cigar smoker Tobacco Use Start: Unknown Current Pipe Smoker ETOH Use Denies alcohol use Recreational Drug Use Current Marijuana User Tobacco Use Start: Unknown Light tobacco smoker (10 or fewe r cigarettes/day) Half a pack daily Smoking Status Reviewed: 04/10/20 Light tobacco smoker (10 or fewer cigarettes/day) Half a pack daily Exercise Type/Frequency Exercises rarely Sun Exposure Does not use sunscreen Seat Belt/Car Seat Always uses seat belt Allergies, Adverse Reactions, Alerts Active Allergies Reaction Severity Comments Date Sulfa 03/08/2020 NSAIDS 03/08/2020 Medications Active Medications SIG Qnty Indications Ordering Provide r Date Nitrofurantoin Macrocrystal 100mg Capsules 1 capsule by mouth daily as needed for uti 30caps Z87.4 40 Marlene Chapman D.O. 04/10/2020 Losartan Potassium 25mg Tablets 1 by mouth every day Unknown Dok 100mg Capsules take one capsules by mouth three times a day Unknown 00 Albuterol Sulfate HFA 108(90Base) mcg/Act Aerosol 1-2 puffs every 4-6 hours as needed for shortness of breath Unknown Onetouch Delica Plus Lancets Extra Fine 33G Plus 33G Misc to be used with one touch glucometer three times daily Unknown Amitriptyline HCL 50mg Tablets 1 and 1/2 tabs by mouth every evening Unknown Nystatin [id number]/GM Powder pat skin dry on the lgroin and under breasts and apply powder twice daily as needed Unknown Cetirizine HCL 10mg Tablets 1 by mouth every day Unknown Lyrica 200mg Capsules take one capsule three times a day by mouth Unknown Gaviscon Extra Strength 160-105mg Chewtabs Unknown Gabapentin 800mg Tablets take one tablet by mouth 3 times a day for 30 days Unknown Duloxetine HCL 30mg Caps DR Part 1 by mouth every day in the evening Unknown [address] 1 by mouth twice a day Unknown Niacin ER 500mg Tablets ER take one tablet by mouth daily Unknown Buspirone HCL 15mg Tablets take 1 tablet by mouth two times daily Unknown 000 Pramipexole Dihydrochloride 0.25mg Tablets 1 by mouth twice a day Unknown Metformin HCL 1000mg Tablets take one tablet by mouth twice a day with meals Unknown Furosemide 40mg Tablets 1 by mouth every day Unknown One Daily For Women Tablets 1 by mouth every day Unknown Sucralfate 1gm Tablets take one tablet by mouth four times a day Unknown 0 Misoprostol 200mcg Tablets 1 tab by mouth four times a day Unknown Methocarbamol 750mg Tablets take one tablet by mouth every 8 hours as needed for pain Unknown Fluticasone Propionate 50mcg/Act Suspension 2 spray each nostril once a day Unknown Onetouch Ultra Strips use 1 strip to check glucose 3 times daily Unknown Sumatriptan Succinate 50mg Tablets take one tablet at the onset of symptoms, repeat 2 hours if not improved. mdd 2. patient gets 6 headaches/month. Unknown Ferrous Fumarate 324(106Fe) mg Tab lets 1 by mouth once daily Unknown Calcium Citrate + D3 500/630 Unknown Vitamin B12 1000mcg Tablets ER 1 by mouth every day Unknown Duloxetine HCL 60mg Caps DR Part take one capsule by mouth every evening Unknown 0 Oxybutynin Chloride ER 10mg Tablets ER 24HR 1 by mouth every day Unknown 000 Spironolactone 25mg Tablets 1 tablet once a day by mouth Unknown Systane 0.4-0.3% Solution instill 1 drop in each eye daily as needed Unknown Famotidine 20mg Tablets take 1 by mouth twice daily as needed for heartburn. Unknown Vitamin D3 125mcg (5000 Ut) Capsul es 1 by mouth every day Unknown Montelukast Sodium 10mg Tablets 1 by mouth every day Unknown Immunizations Description No Information Available Vital Signs Date Vital Result Comment 04/10/2020 11:13am BP Systolic 126 mmHg BP Diastolic 80 mmHg Height 61.3 inches 5'1.30" Weight 299.00 lb BMI (Body Mass Index) 55.9 kg/m2 Heart Rate 92 /min Respiratory Rate 24 /min Body Temperature 97.1 F O2 % BldC Oximetry 99 % [place] Body Weight 105 lb 03/27/2020 10:53am BP Systolic 136 mmHg BP Diastolic 68 mmHg Height 61.3 inches 5'1.30" Weight 300.00 lb BMI (Body Mass Index) 56.1 kg/m2 Heart Rate 104 /min Respiratory Rate 20 /min Body Temperature 98.1 F O2 % BldC Oximetry 97 % [place] Body Weight 105 lb Results Test Acquired Date Facility Test Result H/L Range Note Laboratory test finding 04/06/2020 [facility] Outpatient T esting (Registration) [address] [place] [address] [phone] Pathology Request For Service (SEE NOTE) 1 Comprehensive Metabolic Profil 04/06/2020 [facility] Outpa tient Testing (Registration) [address] [place] [address] [phone] Glucose, Fasting 182 mg/dL High 70-100 Blood Urea Nitrogen 12 mg/dL Normal 7-18 Creatinine For GFR 0.79 mg/dL Normal 0.55-1.30 Glomerular Filtration Rate > 60.0 Normal >58 2 Sodium Level 141 mEq/L Normal 136-145 Potassium Serum 4.1 mEq/L Normal 3.5-5.1 Chloride Level 107 mEq/L Normal 98-107 Carbon Dioxide Level 26 mEq/L Normal 21-32 Anion Gap 8 mEq/L Normal 8-16 Calcium Level 9.1 mg/dL Normal 8.5-10.1 Ast/Sgot 6 U/L Low 7-37 Alt/SGPT 24 U/L Normal 12-78 Alkaline Phosphatase 84 U/L Normal 45-117 Bilirubin,Total 0.2 mg/dL Normal 0.2-1.0 Total Protein 7.0 GM/DL Normal 6.4-8.2 Albumin 3.2 GM/DL Normal 3.2-5.2 Albumin/Globulin Ratio 0.8 Low 1.2-2.2 Total Iron Binding Capacit 04/06/2020 [facility] Outpatien t Testing (Registration) [address] [place] [address] [phone] Iron (Fe) 53 g/dL Normal 50-170 Total Iron Binding Capacity 279 g/dL Normal 250-450 Percent Saturation 19.0 % Normal 13.2-45.0 Hemoglobin A1c 04/06/2020 [facility] Outpatient Testi ng (Registration) [address] [place] [address] [phone] Hemoglobin A1c 6.5 % Normal 3 Estimated Average Glucose 140 mg/dL High 60-110 FT4&TSH Panel 04/06/2020 [facility] Outpatient Testi ng (Registration) [address] [place] [address] [phone] Thyroid Stimulating Hormone 0.409 uIU/ML Normal 0. 358-3.740 Free T4 0.95 ng/dL Normal 0.76-1.46 Vitamin B12 & Folate 04/06/2020 [facility] Outpatient Test ing (Registration) [address] [place] [address] [phone] Vitamin B12 Level 1352 pg/mL Normal 4 Folate 10.0 NG/ML Normal 5 Laboratory test finding 04/06/2020 [facility] Outpatient T esting (Registration) [address] [place] [address] [phone] Total 25(Oh) Vitamin D 67.5 NG/ML Normal 30.0-100. 0 Periph Smear For Oncol. Review 04/06/2020 [facility] Outpa tient Testing (Registration) [address] [place] [address] [phone] Slide Review Report Normal 6 Source PERIPHERAL SMEAR Normal 7 Reason For Review RBC MORPHOLOGY Normal Lipid Panel 04/06/2020 [facility] Outpatient Testi ng (Registration) [address] [place] [address] [phone] Triglycerides Level 91 mg/dL Normal <150 Cholesterol Level 172 mg/dL Normal <200 HDL Cholesterol 55 mg/dL Normal >40 LDL Cholesterol 99 mg/dL Normal <100 Non-HDL-C 117 mg/dL Normal Cholesterol Risk Ratio 3.127 Normal <5 CBC With Differential 04/06/2020 [facility] Outpatient Luz ting (Registration) [address] [place] [address] [phone] White Blood Count 17.6 10 High 4.0-10.0 Red Blood Count 4.35 10 Normal 4.00-5.40 Hemoglobin 13.0 g/dL Normal 12.0-15.5 Hematocrit 41.5 % Normal 36.0-47.0 Mean Corpuscular Volume 95.4 fl Normal 80.0-96.0 Mean Corpuscular Hemoglobin 29.9 pg Normal 27.0-33.0 Mean Corpuscular HGB Conc 31.3 g/dL Low 32.0-36.5 Red Cell Distribution Width 14.0 % Normal 11.5-14.5 Platelet Count, Automated 395 10 Normal 150-450 Neutrophils % 74.6 % High 36.0-66.0 Lymph % 17.4 % Low 24.0-44.0 [place] % 6.6 % High 0.0-5.0 Eos % 0.1 % Normal 0.0-3.0 Baso % 0.3 % Normal 0.0-1.0 Immature Granulocyte % 1.0 % Normal 0-3.0 Nucleated Red Blood Cell % 0.0 % Normal 0-0 Neutrophils # 13.1 10 High 1.5-8.5 Lymph # 3.1 10 Normal 1.5-5.0 [place] # 1.2 10 High 0.0-0.8 Eos # 0.0 10 Normal 0.0-0.5 Baso # 0.1 10 Normal 0.0-0.2 Inhouse Ua 03/27/2020 Inhouse Inhouse Leukocytes neg Inhouse Nitrite neg Inhouse Urobilinogen neg Inhouse Protein neg Inhouse PH 8 Inhouse Hemoglobin neg Inhouse Specific [place] 1.010 Inhouse Ketones neg Inhouse Bilirubin neg Inhouse Glucose neg 1 04/08/2020 - 957 PERPHERAL SMEAR REVIEW Peripheral smear: Leukocytosis associated with neutrophilia, monocytosis and lymphocytopenia. Erythrocytes appear normal in number and are overall normochromic. Platelet count within normal limits. 04/08/2020 - 957 Signed LISA CABRERA MD 04/08/2020 1004 2 Units are mL/min/1.73 m2 Chronic Kidney Disease Staging per NKF: Stage I & II GFR >=60 Normal to Mildly Decreased Stage III GFR 30-59 Moderately Decreased Stage IV GFR 15-29 Severely Decreased Stage V GFR <15 Very Little GFR Left ESRD GFR <15 on COMPUGRAPH OPERATOR 3 REFERENCE RANGES: <=5.6% NORMAL 5.7-6.4% SUGGESTS IMPAIRED GLUCOSE META BOLISM/PREDIABETIC >= 6.5% ABNORMAL 4 VITAMIN B12 NORMAL RANGE NORMAL 247 - 911 PG/ML INDETERMINATE 211 - 246 PG/ML DEFICIENT LESS THAN 211 PG/ML 5 FOLATE NORMAL RANGE NORMAL GREATER THAN 5.4 NG/ML INDETERMINATE 3.4-5.4 NG/ML DEFICIENT LESS THAN 3.4 NG/ML 6 Slide and/or specimen referr ed to Pathologist for review. Results of the review are located in the EMR Pathology module under Peripheral Smear when completed. 7 PERIPHERAL SMEAR Procedures Description No Information Available Medical Devices Description No Information Available Encounters Type Date Location Provider Dx Diagnosis Office Visit 03/27/2020 10:40a [facility] MIGUEL ÁNGEL Jones E66.01 Morbid (severe) obesity due to excess calories D72.9 Disorder of white blood cell s, unspecified G47.33 Obstructive sleep apnea (alex lt) (pediatric) E11.9 Type 2 diabetes mellitus wit hout complications Z98.84 Bariatric surgery status F17.210 Nicotine dependence, cigaret luz, uncomplicated M25.552 Pain in left hip R30.0 Dysuria Assessments Date Code Description Provider 04/10/2020 E11.9 Type 2 diabetes mellitus without complications MIGUEL ÁNGEL Jones 04/10/2020 G47.33 Obstructive sleep apnea (adult) (pediatric) MIGUEL ÁNGEL Jones 04/10/2020 E66.01 Morbid (severe) obesity due to e xcess calories MIGUEL ÁNGEL Jones 04/10/2020 Z98.84 Bariatric surgery status MIGUEL ÁNGEL Jones 04/10/2020 F17.210 Nicotine dependence, cigarettes, uncomplicated MIGUEL ÁNGEL Jones 04/10/2020 M25.552 Pain in left hip MIGUEL ÁNGEL Sawyer 04/10/2020 Z87.440 Personal history of urinary (tra ct) infections MIGUEL ÁNGEL Jones 04/10/2020 D72.9 Disorder of white blood cells, u nspecified MIGUEL ÁNGEL Jones 04/10/2020 Z68.43 Body mass index [BMI] 50.0-59.9, adult MIGUEL ÁNGEL Jones 03/27/2020 E66.01 Morbid (severe) obesity due to e xcess calories MIGUEL ÁNGEL Jones 03/27/2020 D72.9 Disorder of white blood cells, u nspecified MIGUEL ÁNGEL Jones 03/27/2020 G47.33 Obstructive sleep apnea (adult) (pediatric) MIGUEL ÁNGEL Jones 03/27/2020 E11.9 Type 2 diabetes mellitus without complications MIGUEL ÁNGEL Jones 03/27/2020 Z98.84 Bariatric surgery status MIGUEL ÁNGEL Jones 03/27/2020 F17.210 Nicotine dependence, cigarettes, uncomplicated MIGUEL ÁNGEL Jones 03/27/2020 M25.552 Pain in left hip MIGUEL ÁNGEL Sawyer 03/27/2020 R30.0 Dysuria MIGUEL ÁNGEL Jones Plan of Treatment Future Appointment(s):* 07/09/2020 2:40 pm - MIGUEL ÁNGEL Jones at [facility] 04/10/2020 - MIGUEL ÁNGEL Jones* E11.9 Type 2 diabetes mellitus without complications* New Labs:* Basic Metabolic Profile, Scheduled: 07/09/20 * Hemoglobin A1c, Scheduled: 07/09/20 * Comments:* Good glycemic control noted. Continue to make good dietary choices, and we will discuss further at followup. * G47.33 Obstructive sleep apnea (adult) (pediatric)* Comments:* Try to be compliant with your CPAP. We will discuss further at followup. * E66.01 Morbid (severe) obesity due to excess calories* Comments:* You have done well with weight loss since I saw you last. Continue to limit your soda intake, and we will discuss further at followup. * Z98.84 Bariatric surgery status * F17.210 Nicotine dependence, cigarettes, uncomplicated* Comments:* Continue to try to cut back on your smoking, we will discuss further at followup. * M25.552 Pain in left hip* Comments:* Continue with the recommendations of orthopedics. * Follow up:* 3 months with me. * Z87.440 Personal history of urinary (tract) infections* New Medication:* Nitrofurantoin Macrocrystal 100 mg - 1 capsule by mouth daily as needed for uti * D72.9 Disorder of white blood cells, unspecified* New Labs:* CBC With Differential, Scheduled: 07/09/20 * Z68.43 Body mass index [BMI] 50.0-59.9, adult Functional Status Description No Information Available Mental Status Description No Information Available Referrals Description No Information Available
--- OUTSIDE RECORDS SUMMARY | 2020-04-30 16:15 | CCD ---
Author Author Mara Alcaraz Organization Unknown Address [address] [place] [address] Phone Care Team Providers Care Recording Engineer Name Role Phone Kieran Alvin PCP Allergies, Adverse Reactions, Alerts No Data in Section Problem List Concept Problem Description Status Start Date Created Date Resolv ed Date Snomed Code F33.1 Major Depressive Disorder, Recurrent episode, Moderate Active 04/26/2020 F17.200 Tobacco Use Disorder, Moderate Active F12.10 Cannabis Use Disorder, Mild Active 04/26/2020 Medications Rx Norm Medication Route Route Concept Start Date Stop Date Dosage Freeman quency Duration Formula Strength Dosage Form Dosage Form Code Dosage Description Medication Id Account Npid Author First Name Author Last Name Taxonomy Code Taxonomy Desc Phone Number [phone] Cymbalta 04/13/2019 60 mg capsule,delayed r elease(DR/EC) 34562 [id number] Radha Lizama [id number] Psychiatric/Mental Health [id number] Cymbalta 04/13/2019 30 mg capsule,delayed r elease(DR/EC) 74751 [id number] Radha Lizama [id number] Psychiatric/Mental Health [id number] buspirone by mouth [id number] 03/06/2020 06/04/2020 twice a day 30 15 mg tablet 22063 [id number] Radha Lizama [id number] P sychiatric/Mental Health [id number] nicotine to skin 03/23/2018 06/16/2020 once a day 30 21 mg/24 hr patch 24 hour 03292 [id number] Radha Lizama [id number] P sychiatric/Mental Health [id number] Social History Social History Element Description Concept Effective Date Smoking Status Unknown if ever smoked [id number] Immunizations No Data in Section Vital Signs No Data in Section Procedures Date Concept Id Description Targeted Site Concept Targeted Site Concept Type 04/26/2020 60781 Extended Individual Psychotherapy - 45 min CPT Patient has no history of implantable de vices Encounters Encounter Start Date End Date Encounter Type Description Diagnosis Di agnosis Desc Location Author First Name Author Last Name Npid Taxonomy Cod e Taxonomy Desc Phone Number Location Addr1 Location Addr2 Location [facility] Location Sta te Location Zip [id number] 04/26/2020 04/26/2020 14123 Extended Individual Psych otherapy - 45 min F33.1 Major depressive disorder, recurrent, moderate Communi [facility] [id number] 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
--- OUTSIDE RECORDS SUMMARY | 2020-04-30 16:15 | CCD | Continuity of Care Document ---
Author Author Mara KUMAR PA Organization Unknown Address [address] [place] [address] [address] [place] [address] Phone [phone] Care Team Providers Care Family Living Educator Name Role Phone Marlene Chapman D.O. AUTM [phone] Nelly Vang AUTM [phone] Problems Active Problems Provider Date Essential hypertension [...] tabs by mouth every evening Unknown Nystatin [id number]/GM Powder pat skin dry on the lgroin [...] F O2 % BldC Oximetry 99 % [place] Body Weight 105 lb 03/27/2020 10:53am BP Systolic 136 mmHg BP Diastolic 68 mmHg Height 61.3 inches 5'1.30" Weight 300.00 lb BMI (Body Mass Index) 56.1 kg/m2 Heart Rate 104 /min Respiratory Rate 20 /min Body Temperature 98.1 F O2 % BldC Oximetry 97 % [place] Body Weight 105 lb Results Test Acquired Date Facility Test Result H/L Range Note Laboratory test finding 04/06/2020 [facility] Outpatient T esting (Registration) [address] [place] [address] [phone] Pathology Request For Service (SEE NOTE) 1 Comprehensive Metabolic Profil 04/06/2020 [facility] Outpa tient Testing (Registration) [address] [place] [address] [phone] Glucose, Fasting 182 mg/dL High 70-100 Blood [...] Low 1.2-2.2 Total Iron Binding Capacit 04/06/2020 [facility] Outpatien t Testing (Registration) [address] [place] [address] [phone] Iron (Fe) 53 g/dL Normal 50-170 Total Iron Binding Capacity 279 g/dL Normal 250-450 Percent Saturation 19.0 % Normal 13.2-45.0 Hemoglobin A1c 04/06/2020 [facility] Outpatient Testi ng (Registration) [address] [place] [address] [phone] Hemoglobin A1c 6.5 % Normal 3 Estimated Average Glucose 140 mg/dL High 60-110 FT4&TSH Panel 04/06/2020 [facility] Outpatient Testi ng (Registration) [address] [place] [address] [phone] Thyroid Stimulating Hormone 0.409 uIU/ML Normal 0. 358-3.740 Free T4 0.95 ng/dL Normal 0.76-1.46 Vitamin B12 & Folate 04/06/2020 [facility] Outpatient Test ing (Registration) [address] [place] [address] [phone] Vitamin B12 Level 1352 pg/mL Normal 4 Folate 10.0 NG/ML Normal 5 Laboratory test finding 04/06/2020 [facility] Outpatient T esting (Registration) [address] [place] [address] [phone] Total 25(Oh) Vitamin D 67.5 NG/ML Normal 30.0-100. 0 Periph Smear For Oncol. Review 04/06/2020 [facility] Outpa tient Testing (Registration) [address] [place] [address] [phone] Slide Review Report Normal 6 Source PERIPHERAL SMEAR Normal 7 Reason For Review RBC MORPHOLOGY Normal Lipid Panel 04/06/2020 [facility] Outpatient Testi ng (Registration) [address] [place] [address] [phone] Triglycerides Level 91 mg/dL Normal <150 Cholesterol Level 172 mg/dL Normal <200 HDL Cholesterol 55 mg/dL Normal >40 LDL Cholesterol 99 mg/dL Normal <100 Non-HDL-C 117 mg/dL Normal Cholesterol Risk Ratio 3.127 Normal <5 CBC With Differential 04/06/2020 [facility] Outpatient Luz ting (Registration) [address] [place] [address] [phone] White Blood Count 17.6 10 High 4.0-10.0 [...] 36.0-66.0 Lymph % 17.4 % Low 24.0-44.0 [place] % 6.6 % High 0.0-5.0 Eos % 0.1 % Normal 0.0-3.0 Baso % 0.3 % Normal 0.0-1.0 Immature Granulocyte % 1.0 % Normal 0-3.0 Nucleated Red Blood Cell % 0.0 % Normal 0-0 Neutrophils # 13.1 10 High 1.5-8.5 Lymph # 3.1 10 Normal 1.5-5.0 [place] # 1.2 10 High 0.0-0.8 Eos # 0.0 10 Normal 0.0-0.5 Baso # 0.1 10 Normal 0.0-0.2 Inhouse Ua 03/27/2020 Inhouse Inhouse Leukocytes neg Inhouse Nitrite neg Inhouse Urobilinogen neg Inhouse Protein neg Inhouse PH 8 Inhouse Hemoglobin neg Inhouse Specific [place] 1.010 Inhouse Ketones neg Inhouse Bilirubin neg [...] Little GFR Left ESRD GFR <[address] [employer] 3 REFERENCE RANGES: <=5.6% NORMAL 5.7-6.4% SUGGESTS [...] Provider Dx Diagnosis Office Visit 03/27/2020 10:40a [facility] MIGUEL ÁNGEL Jones E66.01 Morbid (severe) obesity [...] 2:40 pm - MIGUEL ÁNGEL Jones at [facility] 04/10/2020 - MIGUEL ÁNGEL Jones* E11.9 Type [...]
--- OUTSIDE RECORDS SUMMARY | 2020-04-30 16:15 | CCD | Continuity of Care Document ---
Author Author Mara HOWELL M.D Organization Unknown Address [address] [place] [address] Phone [phone] Care Team Providers Care Hospital Admissions Clerk Name Role Phone Tu Handy MD AUTM [phone] Hayden Iverson MD AUT [phone] Problems Active Problems Provider Date Gastroesophageal reflux disease Maninder Howell M.D. Ons et: 04/23/2020 Abnormal liver function [...] Dose Two Ta blets Unknown D3-50 1.25mg (88411 Ut) Capsules Unknown B Complex-B12 Tablets Unknown Sucralfate 1gm Tablets Unknown Multiple Vitamin Tablets Unknown Calcium Citrate + D3 [id number] Tablets Unknown Dok 100mg Capsules Take One Capsule By Mouth Three Times A Day Unknown 00 Methocarbamol 750mg Tablets Clarisa Steward Crna Spironolactone 25mg Tablets Take One Tablet By Mouth Every Day Unknown Furosemide 40mg Tablets Take One Tablet By Mouth Every Day Unknown Albuterol Sulfate HFA 108(90Base) mcg/Act Aerosol Inhale Two Puffs By Mouth Four Times A Day as Needed Unknown Nystatin 751744Berm/GM Powder Apply To Affected Area S Under [...] day before meals,and at bedtime 360u nits Maninder Howell M.D. 03/19/2020 - 04/22/2020 Immunizations Description [...] Date Location Provider Dx Diagnosis Office Visit 03/19/2020 1:00p Main Office Maninder Howell M.D. R 12 Heartburn Assessments Date Code Description Provider 04/23/2020 R12 Heartburn Maninder collins M.D. 03/19/2020 R12 Heartburn Maninder collins M.D. Plan of Treatment Future Appointment(s):* 04/29/2020 11:45 am - Maninder Howell M.D. at [...]
--- OUTSIDE RECORDS SUMMARY | 2020-04-30 16:16 | CCD | Continuity of Care Document ---
Author Author Mara KUMAR PA Organization Unknown Address [address] [place] [address] [address] [place] [address] Phone [phone] Care Team Providers Care Industrial Engineer Name Role Phone Marlene Chapman D.O. AUTM Nelly Vang AUTM [phone] Problems Active Problems Provider Date Essential hypertension [...] Half a pack daily Smoking Status Reviewed: 03/27/20 Light tobacco smoker (10 or fewer cigarettes/day) Half a pack daily Exercise Type/Frequency Exercises rarely Sun Exposure Does not use sunscreen Seat Belt/Car Seat Always uses seat belt Allergies, Adverse Reactions, Alerts Active Allergies Reaction Severity Comments Date Sulfa 03/08/2020 NSAIDS 03/08/2020 Medications Active Medications SIG Qnty Indications Ordering Provide r Date Losartan Potassium 25mg Tablets 1 by mouth every day Unknown Dok 100mg Capsules take one capsules by mouth three times a day Unknown Albuterol Sulfate HFA 108(90Base) mcg/Act Aerosol 1-2 puffs every 4-6 hours as needed for shortness of breath Unknown Onetouch Delica Plus Lancets Extra Fine 33G Plus 33G Misc to be used with one touch glucometer three times daily Unknown Amitriptyline HCL 50mg Tablets 1 and 1/2 tabs by mouth every evening Unknown Nystatin 776780Epdt/GM Powder pat skin dry on the lgroin [...] mouth every day in the evening Unknown Omeprazole 20mg Capsules DR 1 by mouth twice a day Unknown Niacin ER 500mg Tablets ER take one tablet by mouth daily Unknown Buspirone HCL 15mg Tablets take 1 tablet by mouth two times daily Unknown Pramipexole Dihydrochloride 0.25mg Tablets 1 by mouth [...] spray each nostril once a day Unknown FibeRio Ultra Strips use 1 strip to check [...] Available Vital Signs Date Vital Result Comment 03/27/2020 10:53am BP Systolic 136 mmHg BP Diastolic 68 mmHg Height 61.3 inches 5'1.30" Weight 300.00 lb BMI (Body Mass Index) 56.1 kg/m2 Heart Rate 104 /min Respiratory Rate 20 /min Body Temperature 98.1 F O2 % BldC Oximetry 97 % [place] Body Weight 105 lb Results Test Acquired Date Facility Test Result H/L Range Note Inhouse Ua 03/27/2020 Inhouse Inhouse Leukocytes neg Inhouse Nitrite neg Inhouse Urobilinogen neg Inhouse Protein neg Inhouse PH 8 Inhouse Hemoglobin neg Inhouse Specific [place] 1.010 Inhouse Ketones neg Inhouse Bilirubin neg Inhouse Glucose neg Procedures Description No Information Available Medical Devices Description No Information Available Encounters Type Date Location Provider Dx Diagnosis Office Visit 03/27/2020 10:40a [facility] MIGUEL ÁNGEL Jones E66.01 Morbid (severe) obesity due to excess calories D72.9 Disorder of white blood cell s, unspecified G47.33 Obstructive sleep apnea (alex lt) (pediatric) E11.9 Type 2 diabetes mellitus wit hout complications Z98.84 Bariatric surgery status F17.210 Nicotine dependence, cigaret luz, uncomplicated M25.552 Pain in left hip R30.0 Dysuria Assessments Date Code Description Provider 03/27/2020 E66.01 Morbid (severe) obesity due to [...] ÁNGEL Jones Plan of Treatment Future Appointment(s):* 04/10/2020 11:20 am - MIGUEL ÁNGEL Jones at [facility] 03/27/2020 - MIGUEL ÁNGEL Jones* E66.01 Morbid (severe) obesity due to excess calories* Comments:* We will check your labs to evaluate further, and we will discuss further at followup. * D72.9 Disorder of white blood cells, unspecified* New Labs:* CBC With Manual Differential, Ordered: 03/27/20 * Periph Smear For Oncol. Review, Ordered: 03/27/20 * Comments:* We will check bloodwork to evaluate further. * G47.33 Obstructive sleep apnea (adult) (pediatric) * E11.9 Type 2 diabetes mellitus without complications* New Labs:* Lipid Panel, Ordered: 03/27/20 * Comments:* Per old records, good glycemic control noted. Continue medications as prescribed for the time being. * Z98.84 Bariatric surgery status* New Labs:* Comprehensive Metabolic Profil, Ordered: 03/27/20 * Total Iron Binding Capacit, Ordered: 03/27/20 * Hemoglobin A1c, Ordered: 03/27/20 * FT4&TSH Panel, Ordered: 03/27/20 * Vitamin B12 & Folate, Ordered: 03/27/20 * Vitamin D 25-Hydroxy, Ordered: 03/27/20 * F17.210 Nicotine dependence, cigarettes, uncomplicated* Comments:* Smoking is bad for your health. * M25.552 Pain in left hip* Comments:* Continue with the recommendations of orthopedics. * R30.0 Dysuria* Comments:* Your urine sample did not show any signs of infection. Functional Status Description No Information Available Mental Status Description No Information Available Referrals Description No Information Available
--- OUTSIDE RECORDS SUMMARY | 2020-04-30 16:16 | CCD ---
Author Author [facility] Organization [facility] Address Unknown Phone Unavailable Care Team Providers Care Work Adjustment Instructor Name Role Phone Charlee Aquino Unavailable PROBLEMS Type Condition ICD9-CM Code [id number] Code Onset Dates Condition S tatus SNOMED Code Notes Problem Low back pain M54.5 Active 265403367 Problem Lumbago with sciatica, right side M54.41 Active 582183608006507 Problem Lumbago with sciatica, left side M54.42 Active 236867578 Problem Other spondylosis, cervical region M47.892 Activ e 5058532 Problem Intervertebral disc disorder with radiculopathy of lumbar region M51.16 Active 85239220 Problem Fibromyalgia M79.7 Active 745193993 Problem Other spondylosis, lumbosacral region M47.897 Ac tive 2916866 Problem Myalgia, other site M79.18 Active 08318058 Problem Intervertebral disc disorders with radiculopathy , lumbar region M51.16 Active 506626145005777 Problem Spinal stenosis of lumbar re gion, unspecified whether neurogenic claudication present M48.061 Active 62954291 Problem Disc displacement, lumbar M51.26 Active 709628 785831084 Problem Other chronic pain G89.29 Active 20312985 Problem Intervertebral disc disorder with radiculopathy of lumbosacral region M51.17 Active 37040194 Problem Osteoarthritis of multiple joints, unspecified o steoarthritis type M15.9 Active 490868248 Problem Back pain, unspecified back location, unspecified back pain laterality, unspecified chronicity M54.9 Active 436979613 Problem Melanocytic nevi of trunk D22.5 Active 605191 002 Problem Sacroiliitis, not elsewhere classified M46.1 A ctive 44342578 Problem Melanocytic nevi of unspecified upper limb, including shoulder D22.60 Active 898299708 Problem Xerosis cutis L85.3 Active 86191707 Problem 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 Active 771612563 Problem Melanocytic nevi of unspecified lower limb, including hip D22.70 Active 23174744 Problem Sacroiliac joint dysfunction of both sides M53.3 Active 473428053 Problem Protrusion of intervertebral disc of lumbosacral region M51.27 Active 51012880 Problem Myalgia M79.1 Active 38514038 Problem Melanocytic nevi of face D22.30 Active 2596616 04 Problem Cervical spondylolysis M43.02 Active 595854118 Problem Spondylosis without myelopathy or radiculopathy, lumbosacral region M47.817 Active 70886347 Problem Spondylosis without myelopathy or radiculopathy, lumbar region M47.816 Active 593856428 Problem Melanocytic nevi of left ear D22.22 Active 109 711290 Problem Melanocytic nevi of right ear D22.21 Active 10 6399298 Problem Spondylosis of lumbar region without myelopathy or radiculopathy M47.816 Active 81178514 Problem Bilateral sacroiliitis M46.1 Active 804877303 80712106 Problem Spondylosis of lumbosacral region without myelop athy or radiculopathy M47.817 Active 94187794 Problem Type 2 diabetes mellitus wit hout complication, without long-term current use of insulin E11.9 Active 391433734 Problem Melanocytic nevi of left lower limb, including hip D22.72 Active 295379133726624 Problem Melanocytic nevi of right lower limb, including hip D22.71 Active 212600623 Problem Melanocytic nevi of left upper limb, including shoulder D22.62 Active 707671132263182 Problem Melanocytic nevi of right upper limb, including shoulder D22.61 Active 677341763 ALLERGIES Allergen (clinical drug ingredient) Drug/Non Drug Allergy do cumented on EMR Reaction Allergy Type Onset Date Status NSAIDS gastric bypass Non Drug Allergy Acti ve Sulfa (for allergy use only) Rash Drug Allergy Active ENCOUNTERS from 1973 to 2020-03-28 Encounter Location Date Provider Diagnosis [facility] [place] [address] Mar, Charlee Intorcia Type 2 diabetes mellitus without complic ation, without long-term current use of insulin E11.9 IMMUNIZATIONS No Information SOCIAL HISTORY Tobacco Use: Social History Observation Description Date Details (start date - stop date) Current Smoker Sex Assigned At : Social History Observation Description Sex Assigned At Unknown Education: Question Answer Notes Level of Education: Not Finished College Language: Question Answer Notes Languages spoken: Djiboutian Yarsani: Question Answer Notes Yarsani 33 None Alcohol Screening: Question Answer Notes Did you have a drink containing alcohol in the past year? No Points 0 Interpretation Negative Tobacco Use: Question Answer Notes Are you a: current smoker Smoking Cessation Information Given 03/05/2020 pamp hlet given 08/16/18 Patient counseled on the dangers of tobacco use and urged to quit: 03/05/2020 How many cigarettes a day do you smoke? 11-20 Are you interested in quitting? Not ready to quit Counseled the patient on smoking effects, education provided 03/19/2020 REASON FOR REFERRAL No Information VITAL SIGNS Weight 298.4 lbs Mar, Height 60.5 in Mar, BMI 57.31 kg/m2 Mar, MEDICATIONS Medication SIG (Take, Route, Frequency, Duration) Notes Start Da te End Date Status Oxycodone HCl 5 MG 1 tablet as needed Orally Q8 H PRN MDD3 #50 TAB SHOULD LAST 30 DAYS for 30 days May, Not-Taking Calcium Citrate + 630 mg 2 tablet with meals Orally Twice a day Active Amitriptyline HCl 75 MG 1 tablet Orally Once a day for 30 Days Dec, Active Losartan Potassium 25 MG Orally daily Active Lasix 40 MG Orally Daily Active Vitamin D 1000 UNIT capsule Orally Once a day Active Morphine Sulfate ER 15 MG 1 tablet Orally every 12 hrs MDD2 for 30 days May, Not-Taking Vitamin B12 500 500 mcg Orally daily Active Cymbalta 90 mg 1 capsule Orally 30mg cap and 60 mg cap daily Active Cetirizine HCl 10 mg Orally Once a day Active Multivitamin 1 1 tab(s) Orally daily Active Gabapentin 800 MG 1 capsule Orally for pain TID for 30 Days Jun, Active Ketorolac Tromethamine 10 MG 1 tablet with food or mil k as needed Orally every 6 hrs for 5 day(s) Mar, Active Ketorolac Tromethamine 10 MG 1 tablet with food or mil k as needed Orally every 6 hrs for 5 day(s) August, Not-Taking Sucralfate 1 GM 1 tablet on an empty stomach Orally four times daily Active Omeprazole 40 mg 1 capsule Orally 2 times daily Active Robaxin-750 750 MG 1 tablet Orally q8h prn for 30 Days August, Active Flonase 50 MCG/ACT 1 spray in each nostril Nasally Once a day as need ed Active Metformin HCl 1000 MG 1 tablet with meals Orally Twice a day Active Ditropan XL 10 MG 1 tablet Orally Once a day Active Spironolactone 50 MG 1 tablet Orally Once a day for 30 day(s) Active Ferrous Sulfate 325 (65 Fe) MG 1 tablet Orally Once a day for 30 day( s) Active Montelukast Sodium 10 MG 1 tablet Orally Once a day Active Clonidine HCl 0.1 MG 1 tablet Orally Q8H PRN for 5 day(s) Jun, Not-Taking Nystatin 417853 UNIT/GM APPLY TO AFFECTED AREA S UN ANDREZ BREAST AND GROIN TWO TIMES A DAY External for 30 Acti ve Cyclobenzaprine HCl 10 MG as directed Orally q8h prn p ain #30 tab should last 30 days for 30 days May, Not-Taking Wellbutrin 100 MG 1 tablet Orally twice a day Not-Taking iron 325 mgs 1 tab Oral daily Active Lyrica 200 MG 1 capsule Orally q8h TID MDD3 for 30 Days May, Active Colace 100 MG 1 capsule as needed Orally 3x/day Active Abilify 5 MG 1 tablet Orally Once a day Not-Taking Sumatriptan Succinate 50 MG 1 tablet as needed Orally as directed Active Spironolactone 25 mg 1 tablet Orally Daily Active Misoprostol 200 MCG 1 tablet with meals and at b edtime Orally Four times a day for 30 day(s) Active Buprenorphine HCl 300 MCG 1 film to the gum Bucally every 12 hrs for 30 day(s) August, Not-Taking Famotidine 20 MG as directed Orally bid Active Pramipexole Dihydrochloride 0.25 MG 1 tablet Orally bid Active PROCEDURES No Information RESULTS No Results REASON FOR VISIT Follow up Medical Nutritional Therapy Diabetes E11.9 MEDICAL (GENERAL) HISTORY Type Description Date Medical History Diabetes Medical History Hypertension Medical History Hypercholesteremia Medical History Obesity Medical History GERD (gastroesophageal reflux disease) Medical History gastric bypass Medical History Anxiety Medical History Back Pain Medical History Right hip and knee pain Surgical History gastric bypass 06/2015 Surgical History bilat carpal tunnel Surgical History c section Surgical History cholecystectomy Surgical History tonsillectomy & adenoidectomy Surgical History D&C 10/2017 Surgical History endoscopy 11/2018 Hospitalization History surgeries Hospitalization History "Fluid on legs" Dec or Jan. 201 9 Hospitalization History Kidney Infection 05/18/2019 Goals Section No Information Health Concerns No Information MEDICAL EQUIPMENT No Information MENTAL STATUS No Information FUNCTIONAL STATUS No Information ASSESSMENTS Encounter Date Diagnosis Assessment Notes Treatment Notes Treatm ent Clinical Notes Mar, Type 2 diabetes mellitus wit hout complication, without long-term current use of insulin (ICD-10 - E11.9) Mar, Other Food Allergies: NKFA's Food Intolerances: acidic foods-tomatoes;greasy foods; spicy foods Food Dislikes: onions, asparagus, liver, mushrooms, celery, jorge REE= 1926 calories/day for weight loss 24 hour food recall: Breakfast: skipped Lunch 1pm: Pravin Philippe breakfast bowl Dinner 6pm: 3/4 c green beans, 1 c. tator tots (felt nauseous) Dinner 7pm: chicken deana Snacks: Little [place] brownie Drinks: 12 oz Pepsi PER Glim[facility] 09/08/2019: A1c- 6.3% [id number] Eric/Cr- NOT AVAILLABLE [id number]^ VIT D- 63.5 NOT AVALABLE: TG Cholesterol LDL HDL Blood Glucose: Does not check Pertinent Medications: Metformin-1000 mg am/pm Activity: pain in hip-unable Eye Exam: unavailable -will discuss next visit Foot Exam: unavailable - will discuss next visit FLU shot: unavailable-will discuss next vsit Dental Visit: unavailable-will discuss next visit Nutrition Diagnosis: Excessive food/beverage intake r/t inability to apply nutrition knowledge as evidenced by 9 pound weight gain in 8 months, skipping breakfast, Pepsi consumption daily, and processed foods per 24 hour food recall. Nutrition Prescription: 1) Diet Education: Portion Plate Method for Diabetes 2) Goal Setting-Patient will lose 7-10% of weight from 298 to 268-277 by 04/18/2021. 3) Evidence of Learning: Verbalizes Understanding 4) Expected Adherence: Poor 5) Barriers to Adherence: Financial, Unwilling to Change, Social Stress, Other- limited actvity COMMENTS: Patient present for MNT r/t Diabetes. Paz had gastric bypass surgery 06/22/2018 when she weighed 316 pounds. Last visit in this office patient had lost down to 289 pounds 07/03/19, for a total of 27 punds lost. Today patient had gained 9 pounds back up to 298 pounds. Last A1c was excellent at 6.3% 08/2019. Currently prescribed metformin 1000 mg am/pm for diabetes. No problems taking meds or getting refills in a timely manner. Not checking fingersticks with good diabetes control. Patient did not bring an updated list of eds and will bring to next visit. Reviewed education for portion plate method. Stella has fruits and vegetables at home and encouraged her to eat them per her plan. Also reviewed healthy grocery list she could use when she shopped 2 times per month. Patient noted she liked chcken breast and pork tenderloin and could buy these and cook in her crock pot. Stressed need to avoid processed foods. Patient appeared to understand and asked appropriate questions. Patient has RD's contact information in case of questions. GOALS: I will lose 7-10% of my weight from 289 to 268-277 by 04/18/2021 1) I will eat 3 meals per day by trying overnight oatmeal for breakfast. 2) I will try Pepsi Zero which does not have sugar in it. 3) I will eat one fruit serving and one vegetable serving every day. Monitor: _x_ Diet _x _WT _x__ Meds __ BS log __ Food Log _x_Activity PLAN OF TREATMENT Medication Medication Name Sig Start Date Stop Date Ketorolac Tromethamine 10 MG 1 tablet with food or mil k as needed Orally every 6 hrs for 5 day(s) Mar, Next Appt Details WedMay 01, 2019 2-3pm Reason: Provider Name:Charlee Aquino, 2020-04-19 3 02:00:00 PM, [address] [place], [address], Provider Name:Vicente Sharif, 2020-05-03 01:00:00 PM, [address] [place] [address], [phone], Provider Name:Clarisa Steward, 2020-05-17 02 :30:00 PM, [address] [place] [address], [id number], Provider Name:Jd Rosario, 2021-03 11:15:00 AM, [address] [place] [address], [address] [place] [address], [place], [address], Insurance Providers Payer Name Payer Address Payer Phone Insured Name Patient Relati onship to Insured Coverage Start Date Coverage End Date [facility] [employer] [facility] [address] [facility] [address] STELLA TAVERAS self
--- OUTSIDE RECORDS SUMMARY | 2020-04-30 16:16 | CCD ---
Author Author [facility] Organization [facility] Address Unknown Phone Unavailable Care Team Providers Care Toggler Name Role Phone Clarisa Steward Unavailable PROBLEMS Type Condition ICD9-CM Code SPU26-CY Code Onset Dates Condition S tatus SNOMED Code Notes Problem Low back pain M54.5 Active 717748468 Problem Lumbago with sciatica, right side M54.41 Active 734520558669730 Problem Lumbago with sciatica, left side M54.42 Active 318361410 Problem Other spondylosis, cervical region M47.892 Activ e 9215621 Problem Intervertebral disc disorder with radiculopathy of lumbar region M51.16 Active 11101515 Problem Fibromyalgia M79.7 Active 350238169 Problem Other spondylosis, lumbosacral region M47.897 Ac tive 4284060 Problem Myalgia, other site M79.18 Active 57881611 Problem Intervertebral disc disorders with radiculopathy , lumbar region M51.16 Active 494428215706527 Problem Spinal stenosis of lumbar re gion, unspecified whether neurogenic claudication present M48.061 Active 85162876 Problem Disc displacement, lumbar M51.26 Active 744361 779316794 Problem Other chronic pain G89.29 Active 57959175 Problem Intervertebral disc disorder with radiculopathy of lumbosacral region M51.17 Active 06774052 Problem Osteoarthritis of multiple joints, unspecified o steoarthritis type M15.9 Active 225160925 Problem Back pain, unspecified back location, unspecified back pain laterality, unspecified chronicity M54.9 Active 286089771 Problem Melanocytic nevi of trunk D22.5 Active 980290 002 Problem Sacroiliitis, not elsewhere classified M46.1 A ctive 68023784 Problem Melanocytic nevi of unspecified upper limb, including shoulder D22.60 Active 372255620 Problem Xerosis cutis L85.3 Active 35289411 Problem 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 Active 966826505 Problem Melanocytic nevi of unspecified lower limb, including hip D22.70 Active 19031221 Problem Sacroiliac joint dysfunction of both sides M53.3 Active 516792195 Problem Protrusion of intervertebral disc of lumbosacral region M51.27 Active 86097200 Problem Myalgia M79.1 Active 09665762 Problem Melanocytic nevi of face D22.30 Active 3920788 04 Problem Cervical spondylolysis M43.02 Active 856860502 Problem Spondylosis without myelopathy or radiculopathy, lumbosacral region M47.817 Active 63541845 Problem Spondylosis without myelopathy or radiculopathy, lumbar region M47.816 Active 523106492 Problem Melanocytic nevi of left ear D22.22 Active 109 068865 Problem Melanocytic nevi of right ear D22.21 Active 10 3752511 Problem Spondylosis of lumbar region without myelopathy or radiculopathy M47.816 Active 53731705 Problem Bilateral sacroiliitis M46.1 Active 049431862 02511682 Problem Spondylosis of lumbosacral region without myelop athy or radiculopathy M47.817 Active 60291694 Problem Type 2 diabetes mellitus wit hout complication, without long-term current use of insulin E11.9 Active 246588013 Problem Melanocytic nevi of left lower limb, including hip D22.72 Active 493663472498230 Problem Melanocytic nevi of right lower limb, including hip D22.71 Active 655774095 Problem Melanocytic nevi of left upper limb, including shoulder D22.62 Active 125821741232139 Problem Melanocytic nevi of right upper limb, including shoulder D22.61 Active 830592297 ALLERGIES Allergen (clinical drug ingredient) Drug/Non Drug Allergy do cumented on EMR Reaction Allergy Type Onset Date Status NSAIDS gastric bypass Non Drug Allergy Acti ve Sulfa (for allergy use only) Rash Drug Allergy Active ENCOUNTERS from 1973 to 2020-03-21 Encounter Location Date Provider Diagnosis [facility] [address] [place] [address] Mar, Clarisa Steward Other chronic pain G89.29 ; Bilateral sa croiliitis M46.1 and Myalgia, other site M79.18 IMMUNIZATIONS No Information SOCIAL HISTORY Tobacco Use: Social History Observation Description Date Details (start date - stop date) Current Smoker Sex Assigned At : Social History Observation Description Sex Assigned At Unknown Education: Question Answer Notes Level of Education: Not Finished College Language: Question Answer Notes Languages spoken: Taiwanese Presybeterian: Question Answer Notes Presybeterian 33 None Alcohol Screening: Question Answer Notes Did you have a drink containing alcohol in the past year? No Points 0 Interpretation Negative Tobacco Use: Question Answer Notes Are you a: current smoker Smoking Cessation Information Given 03/05/2020 pamp hlet given 08/16/18 Patient counseled on the dangers of tobacco use and urged to quit: 03/05/2020 How many cigarettes a day do you smoke? - Are you interested in quitting? Not ready to quit Counseled the patient on smoking effects, education provided 03/19/2020 REASON FOR REFERRAL No Information VITAL SIGNS Weight 292.8 lbs Mar, Height 60.5 in Mar, BMI 56.24 kg/m2 Mar, Heart Rate 98 /min Mar, Respiratory Rate 18 /min Mar, Temperature 96.7 degrees Fahrenheit Mar, Oximetry 97% Mar, Blood pressure systolic 119 mm Hg Mar, Blood pressure diastolic 67 mm Hg Mar, MEDICATIONS Medication SIG (Take, Route, Frequency, [...] PRN for 5 day(s) Jun, Not-Taking Nystatin 352515 UNIT/GM APPLY TO AFFECTED AREA S UN [...] MG 1 tablet Orally bid Active PROCEDURES from 1973 to 2020-03-21 Procedure Date Ordered Result Body Site Pain Procedure Log 2020-03-19 N/A RESULTS No Results REASON FOR VISIT Post Bilateral SIJ MEDICAL (GENERAL) HISTORY Type Description Date Medical [...] Hospitalization History "Fluid on legs" Dec or 201 9 Hospitalization History Kidney Infection 05/18/2019 Goals Section No Information Health Concerns No Information MEDICAL EQUIPMENT No Information MENTAL STATUS No Information FUNCTIONAL STATUS No Information ASSESSMENTS Encounter Date Diagnosis Assessment Notes Treatment Notes Treatm ent Clinical Notes Mar, Other chronic pain (ICD-10 - G89.29) Trigger point injections bilateral neck and shoulders Mar, Bilateral sacroiliitis (ICD-10 - M46.1) Mar, Myalgia, other site (ICD-10 - M79.18) PLAN OF TREATMENT Medication Medication Name Sig Start Date Stop Date Ketorolac Tromethamine 10 MG 1 tablet with food or mil k as needed Orally every 6 hrs for 5 day(s) Mar, Treatment Notes Assessment Notes Clinical Notes Other chronic pain Trigger point injections bilateral neck and shoulders Next Appt Details post procedure Reason:Trigger point inje ctions bilateral neck and shoulders Provider Name:Charlee Aquino, 9 01:00:00 PM, [address] [place], [address], Provider Name:Jd Rosario, 2021-03 11:15:00 AM, [address] [facility], [address] [place] [address], [place], [address], Follow Up:post procedureTrigger point injections bilateral neck and shoulders Insurance Providers Payer Name Payer Address Payer Phone Insured Name Patient Relati onship to Insured Coverage Start Date Coverage End Date [facility] [address] [facility] [phone] STELLA TAVERAS self
--- OUTSIDE RECORDS SUMMARY | 2020-04-30 16:16 | CCD | Continuity of Care Document ---
Author Author Mara SANCHEZ PA Organization Unknown Address [address] [facility] [place] [address] Phone [phone] Care Team Providers Care Art Educator Name Role Phone Nelly Keyes MD AUTM [phone] Problems Active Problems Provider Date Type 2 [...] Information Available Procedures Date Code Description Status 02/27/2020 67887 X-Ray Wrist Complete Completed 01/29/2020 01122 X-Ray Hip Unilateral With Pelvis 2-3 Views Completed 12/28/2019 80124 X-Ray Hip Unilateral With Pelvis 2-3 Views Completed 10/17/2019 90945 X-Ray Hip Unilateral With Pelvis 2-3 Views Completed Medical Devices Description No Information Available Encounters Type Date Location Provider Dx Diagnosis Office Visit 02/27/2020 2:30p MIGUEL ÁNGEL Godfrey G56.03 Carpal tunnel syndrome, bilateral upper limbs Office Visit 01/29/2020 3:00p MIGUEL ÁNGEL Godfrey M16.12 Unilateral primary osteoarthritis, left hip Office Visit 12/28/2019 1:15p MIGUEL ÁNGEL Godfrey M84.352A Stress fracture, left femur, initial encounter for fracture E66.01 Morbid (severe) obesity due to excess calories F17.210 Nicotine dependence, cigaret luz, uncomplicated Office Visit 11/23/2019 9:40a [place] MIGUEL ÁNGEL Miller M25.452 Effusion, left hip M16.12 Unilateral primary osteoarth ritis, left hip Office Visit 10/17/2019 1:45p [place] MIGUEL ÁNGEL Miller M25.552 Pain in left hip M16.0 Bilateral primary osteoarthr itis of hip Assessments Date Code Description Provider 02/27/2020 G56.03 Carpal tunnel syndrome, bilatera l [...] 8:30 am - Shayan Melendez MD at [place] 02/27/2020 - MIGUEL ÁNGEL Miller* G56.03 Carpal tunnel syndrome, bilateral upper limbs* Follow up:* after EMG with IID for results via telemed Functional Status Description No Information Available Mental Status Description No Information Available Referrals Refer to Dr Reason for Referral Status Appt Date Vicente Sanchez Pac EMG NO AUTH REQUIRED TO SCHEDULING NT Crea rubi [address] [place] [address] [address] [place] [address] [phone]
--- OUTSIDE RECORDS SUMMARY | 2020-04-30 16:16 | CCD ---
Author Author Located Within [facility] Organization Located Within [facility] Address Unknown Phone Unavailable Care Team Providers Care Final Assembly Inspector Name Role Phone Jd Rosario Unavailable PROBLEMS Type Condition ICD9-CM Code JLO03-DY Code Onset Dates Condition S tatus SNOMED Code Notes Problem Low back pain M54.5 Active 053264907 Problem Lumbago with sciatica, right side M54.41 Active 577096627966484 Problem Lumbago with sciatica, left side M54.42 Active 968544343 Problem Other spondylosis, cervical region M47.892 Activ e 8494111 Problem Intervertebral disc disorder with radiculopathy of lumbar region M51.16 Active 42910599 Problem Fibromyalgia M79.7 Active 257816239 Problem Other spondylosis, lumbosacral region M47.897 Ac tive 6095080 Problem Myalgia, other site M79.18 Active 37419612 Problem Intervertebral disc disorders with radiculopathy , lumbar region M51.16 Active 540701726442449 Problem Spinal stenosis of lumbar re gion, unspecified whether neurogenic claudication present M48.061 Active 61110509 Problem Disc displacement, lumbar M51.26 Active 364982 143906530 Problem Other chronic pain G89.29 Active 59840538 Problem Intervertebral disc disorder with radiculopathy of lumbosacral region M51.17 Active 77008661 Problem Osteoarthritis of multiple joints, unspecified o steoarthritis type M15.9 Active 179369872 Problem Back pain, unspecified back location, unspecified back pain laterality, unspecified chronicity M54.9 Active 385997481 Problem Melanocytic nevi of trunk D22.5 Active 558809 002 Problem Sacroiliitis, not elsewhere classified M46.1 A ctive 60218670 Problem Melanocytic nevi of unspecified upper limb, including shoulder D22.60 Active 094310630 Problem Xerosis cutis L85.3 Active 72292003 Problem 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 Active 853937898 Problem Melanocytic nevi of unspecified lower limb, including hip D22.70 Active 94114298 Problem Sacroiliac joint dysfunction of both sides M53.3 Active 999599196 Problem Protrusion of intervertebral disc of lumbosacral region M51.27 Active 26594147 Problem Myalgia M79.1 Active 46048693 Problem Melanocytic nevi of face D22.30 Active 7345426 04 Problem Cervical spondylolysis M43.02 Active 670821727 Problem Spondylosis without myelopathy or radiculopathy, lumbosacral region M47.817 Active 84808764 Problem Spondylosis without myelopathy or radiculopathy, lumbar region M47.816 Active 821353963 Problem Melanocytic nevi of left ear D22.22 Active 109 208186 Problem Melanocytic nevi of right ear D22.21 Active 10 5377475 Problem Spondylosis of lumbar region without myelopathy or radiculopathy M47.816 Active 75943342 Problem Bilateral sacroiliitis M46.1 Active 699803319 95601856 Problem Spondylosis of lumbosacral region without myelop athy or radiculopathy M47.817 Active 46445058 Problem Type 2 diabetes mellitus wit hout complication, without long-term current use of insulin E11.9 Active 863039603 Problem Melanocytic nevi of left lower limb, including hip D22.72 Active 390620114262062 Problem Melanocytic nevi of right lower limb, including hip D22.71 Active 733448316 Problem Melanocytic nevi of left upper limb, including shoulder D22.62 Active 774472158341005 Problem Melanocytic nevi of right upper limb, including shoulder D22.61 Active 130669299 ALLERGIES Allergen (clinical drug ingredient) Drug/Non Drug Allergy do cumented on EMR Reaction Allergy Type Onset Date Status NSAIDS gastric bypass Non Drug Allergy Acti ve Sulfa (for allergy use only) Rash Drug Allergy Active ENCOUNTERS from 1973 to 2020-03-26 Encounter Location Date Provider Diagnosis [facility] [address] [facility] [address] [place] [address] Feb, Jd Rosario Screening, malignant neoplas m, skin Z12.83 ; Xerosis cutis L85.3 ; Melanocytic nevi of face D22.30 ; Melanocytic nevi of trunk D22.5 ; Melanocytic nevi of left ear D22.22 ; Melanocytic nevi of right ear D22.21 ; Melanocytic nevi of left upper limb, including shoulder D22.62 ; Melanocytic nevi of right upper limb, including shoulder D22.61 ; Hirsutism L68.0 ; Melanocytic nevi of left lower limb, including hip D22.72 ; Melanocytic nevi of right lower limb, including hip D22.71 ; Pilar cyst L72.11 and Skin tag L91.8 IMMUNIZATIONS No Information SOCIAL HISTORY Tobacco Use: Social History Observation Description Date Details (start date - stop date) Current Smoker Sex Assigned At : Social History Observation Description Sex Assigned At Unknown Education: Question Answer Notes Level of Education: Not Finished College Language: Question Answer Notes Languages spoken: Wolof Jainism: Question Answer Notes Jainism 33 None Alcohol Screening: Question Answer Notes Did you have a drink containing alcohol in the past year? No Points 0 Interpretation Negative Tobacco Use: Question Answer Notes Are you a: current smoker Smoking Cessation Information Given 03/05/2020 pamp hlet given 08/16/18 Patient counseled on the dangers of tobacco use and urged to quit: 03/05/2020 How many cigarettes a day do you smoke? 11- Are you interested in quitting? Not ready to quit Counseled the patient on smoking effects, education provided 03/19/2020 REASON FOR REFERRAL No Information VITAL SIGNS Weight 290 lbs Feb, Height 60.5 in Feb, BMI 55.70 kg/m2 Feb, Blood pressure systolic 118 mm Hg Feb, Blood pressure diastolic 72 mm Hg Feb, MEDICATIONS Medication SIG (Take, Route, Frequency, Duration) [...] PRN for 5 day(s) Jun, Not-Taking Nystatin 130503 UNIT/GM APPLY TO AFFECTED AREA S UN [...] Information RESULTS No Results REASON FOR VISIT No Information MEDICAL (GENERAL) HISTORY Type Description Date Medical [...] Notes Treatment Notes Treatm ent Clinical Notes Feb, Screening, malignant neoplasm, skin (ICD-10 - Z1 2.83) Patient counseled on signs and symptoms of skin cancer including ABCDE's of Melanoma. Patient counseled to wear sunscreen or use sun protective clothing when outdoors. Avoid peak hours of sun between 10-2. Patient instructed to call with any new or changing lesions. Feb, Xerosis cutis (ICD-10 - L85.3) Discussed important issues including the need to take short baths or showers, use a mild soap like Dove, Tone or Caress, and the importance of moisturizing after bathing, and discussed that moisturizing creams are more effective than lotions. Feb, Melanocytic nevi of face (ICD-10 - D22.30) Benign, reassurance, ABCDE, photoprotection, Q 1 Y MD derm skin check, Q 1 M self skin check Feb, Melanocytic nevi of trunk (ICD-10 - D22.5) Benign, reassurance, ABCDE, photoprotection, Q 1 Y MD derm skin check, Q 1 M self skin check Feb, Melanocytic nevi of left ear (ICD-10 - D22.22) Benign, reassurance, ABCDE, photoprotection, Q 1 Y MD derm skin check, Q 1 M self skin check Feb, Melanocytic nevi of right ear (ICD-10 - D22.21) Benign, reassurance, ABCDE, photoprotection, Q 1 Y MD derm skin check, Q 1 M self skin check Feb, Melanocytic nevi of left upp er limb, including shoulder (ICD-10 - D22.62) Benign, reassurance, ABCDE, photoprotection, Q 1 Y MD derm skin check, Q 1 M self skin check Feb, Melanocytic nevi of right up per limb, including shoulder (ICD-10 - D22.61) Benign, reassurance, ABCDE, photoprotection, Q 1 Y MD derm skin check, Q 1 M self skin check Feb, Hirsutism (ICD-10 - L68.0) Avoid picking or pulling, can try electrolysis or Vaniqua, patient will consider her options, she will discuss with primary internal sources of extra hormones that could be contributing to the hair growth as well Feb, Melanocytic nevi of left low er limb, including hip (ICD-10 - D22.72) Benign, reassurance, ABCDE, photoprotection, Q 1 Y MD derm skin check, Q 1 M self skin check Feb, Melanocytic nevi of right lo wer limb, including hip (ICD-10 - D22.71) Benign, reassurance, ABCDE, photoprotection, Q 1 Y MD derm skin check, Q 1 M self skin check Feb, Pilar cyst (ICD-10 - L72.11) Benign, reassurance Feb, Skin tag (ICD-10 - L91.8) Benign, reassurance PLAN OF TREATMENT Medication Medication Name Sig Start Date Stop Date Ketorolac Tromethamine 10 MG 1 tablet with food or mil k as needed Orally every 6 hrs for 5 day(s) Mar, Treatment Notes Assessment Notes Clinical Notes Screening, malignant neoplasm, skin Patient counseled on signs and symptoms of skin cancer including ABCDE's of Melanoma. Patient counseled to wear sunscreen or use sun protective clothing when outdoors. Avoid peak hours of sun between 10 -2. Patient instructed to call with any new or changing lesions. Skin tag Benign, reassurance Xerosis cutis Discussed important issues i ncluding the need to take short baths or showers, use a mild soap like Dove, Tone or Caress, and the importance of moisturizing after bathing, and discussed that moisturizing creams are more effective than lotions. Melanocytic nevi of face Benign, reassur ance, ABCDE, photoprotection, Q 1 Y MD derm skin check, Q 1 M self skin check Melanocytic nevi of trunk Benign, reassu vandana, ABCDE, photoprotection, Q 1 Y MD derm skin check, Q 1 M self skin check Melanocytic nevi of left ear Benign, steven ssurance, ABCDE, photoprotection, Q 1 Y MD derm skin check, Q 1 M self skin check Melanocytic nevi of right ear Benign, re assurance, ABCDE, photoprotection, Q 1 Y MD derm skin check, Q 1 M self skin check Melanocytic nevi of left upper limb, including shoulder Benign, reassurance, ABCDE, photoprotection, Q 1 Y MD derm skin check, Q 1 M self skin check Pilar cyst Benign, reassurance Melanocytic nevi of right lower limb, including hip Benign, reassurance, ABCDE, photoprotection, Q 1 Y MD derm skin check, Q 1 M self skin check Melanocytic nevi of right upper limb, including shoulder Benign, reassurance, ABCDE, photoprotection, Q 1 Y MD derm skin check, Q 1 M self skin check Hirsutism Avoid picking or pulling, ca n try electrolysis or Vaniqua, patient will consider her options, she will discuss with primary internal sources of extra hormones that could be contributing to the hair growth as well Melanocytic nevi of left lower limb, including hip Benign, reassurance, ABCDE, photoprotection, Q 1 Y MD derm skin check, Q 1 M self skin check Next Appt Details 1 Year Reason:FBSE Provider Name:Charlee Aquino, 2020-12-0 9 01:00:00 PM, [address] [place], [address], Provider Name:Vicente Kole, 2020-05-03 01:00:00 PM, [address] [place] [address], [phone], Provider Name:Clarisa Steward, 2020-05-17 02 :30:00 PM, [address] [place] [address], [phone], Provider Name:Jd Rosario, 2021-03 11:15:00 AM, [address] [place] [address], [address] [place] [address], [place], [address], Follow Up:1 YearFBSE Insurance Providers Payer Name Payer Address Payer Phone Insured Name Patient Relati onship to Insured Coverage Start Date Coverage End Date [facility] [address] [facility] [phone] STELLA TAVERAS self
--- OUTSIDE RECORDS SUMMARY | 2020-04-30 16:16 | CCD | Continuity of Care Document ---
Author Author Mara HOWELL M.D Organization Unknown Address [address] [place] [address] Phone [phone] Care Team Providers Care Automobile Damage Field Appraiser Name Role Phone Tu Handy MD AUTM [phone] Hayden Iverson MD AUT [phone] Problems Active Problems Provider Date Abnormal liver function Maninder Howell M.D. Onset: 09/18 Social History Type Date Description Comments Sex Unknown ETOH Use Denies alcohol use Tobacco Use Start: Unknown Patient is a current smoker, smo kes every day Allergies, Adverse Reactions, Alerts Description No Known Drug Allergies Medications Active Medications SIG Qnty Indications Ordering Provide r Date Gaviscon Extra Strength 160-105mg Chewtabs 1 tab by mouth four times a day before meals,and at bedtime 360u nits Maninder Howell M.D. 03/19/2020 D3-50 1.25mg (54622 Ut) Capsules Unknown B Complex-B12 Tablets Unknown Sucralfate 1gm Tablets Unknown Multiple Vitamin Tablets Unknown Calcium Citrate + D3 111-824nk-Qgnm Tablets Unknown Pregabalin 200mg Capsules Take One Capsule By Mouth Every 8 Hours Maximum Daily Dose 3 Capsules Unknown Dok 100mg Capsules Take One Capsule By Mouth Three Times A Day Unknown 00 Methocarbamol 750mg Tablets Clarisa Steward Crna Spironolactone 25mg Tablets Take One Tablet By Mouth Every Day Unknown Furosemide 40mg Tablets Take One Tablet By Mouth Every Day Unknown Albuterol Sulfate HFA 108(90Base) mcg/Act Aerosol Inhale Two Puffs By Mouth Four Times A Day as Needed Unknown Nystatin 389688Vrqu/GM Powder Apply To Affected Area S Under [...] One Tablet By Mouth Every Day Unknown Immunizations Description No Information Available Vital Signs Date Vital Result Comment 03/19/2020 1:09pm Height 61 inches 5'1" Weight 292.00 lb BP Systolic 124 mmHg BP Diastolic 74 mmHg Heart Rate 109 /min BMI (Body Mass Index) 55.2 kg/m2 Weight 132.451 kg Body Temperature 97.0 F 11/10/2018 11:37am Height 61 inches 5'1" Weight 312.00 lb BP Systolic 106 mmHg BP Diastolic 70 mmHg Heart Rate 89 /min BMI (Body Mass Index) 58.9 kg/m2 Weight 141.523 kg Results Description No Information Available Procedures Description No Information Available Medical Devices Description No Information Available Encounters Type Date Location Provider Dx Diagnosis Office Visit 03/19/2020 1:00p Main Office Maninder Howell M.D. R 12 Heartburn Assessments Date Code Description Provider 03/19/2020 R12 Heartburn Maninder collins M.D. Plan of Treatment Future Appointment(s):* 04/23/2020 12:45 pm - Maninder Howell M.D. at Main Office 03/19/2020 - Maninder Howell M.D.* R12 Heartburn* Comments:* 44 yo wf who presents for a h/o heartburn. She has had gastric gypass 2 yrs ago. No c/o abdominal pain, weight loss, change in bowel habits, or rectal bleeding. No family h/o colon cancer. No h/o chest pain, or sob. Pt has been advised to take a ppi bid + gaviscon qid to help with breakthrough heartburn. Plan:1. Ppi bid + Gaviscon qid2. Office as set up. Functional Status Description No Information Available Mental Status Description No Information Available Referrals Description No Information Available
--- OUTSIDE RECORDS SUMMARY | 2020-04-30 16:16 | CCD | Continuity of Care Document ---
Author Author Mara KUMAR PA Organization Unknown Address [address] [place] [address] [address] [place] [address] Phone [phone] Care Team Providers Care Printing Services Coordinator Name Role Phone Marlene Chapman D.O. AUTM [phone] Nelly Vang AUTM [phone] Problems Active Problems Provider Date Essential hypertension [...] tabs by mouth every evening Unknown Nystatin 064495Vcek/GM Powder pat skin dry on the lgroin [...] spray each nostril once a day Unknown [employer] Ultra Strips use 1 strip to check [...] F O2 % BldC Oximetry 97 % [place] Body Weight 105 lb Results Test Acquired Date Facility Test Result H/L Range Note Inhouse Ua 03/27/2020 Inhouse Inhouse Leukocytes neg Inhouse Nitrite neg Inhouse Urobilinogen neg Inhouse Protein neg Inhouse PH 8 Inhouse Hemoglobin neg Inhouse Specific [place] 1.010 Inhouse Ketones neg Inhouse Bilirubin neg Inhouse Glucose neg Procedures Description No Information Available Medical Devices Description No Information Available Encounters Description No Information Available Assessments Date Code Description Provider 03/27/2020 E66.01 Morbid (severe) obesity due to e xcess calories MIUGEL ÁNGEL Jones 03/27/2020 D72.9 Disorder of white [...] 11:20 am - MIGUEL ÁNGEL Jones at [facility] 03/27/2020 - MIGUEL ÁNGEL Jones* E66.01 Morbid (severe) obesity due to excess calories* Comments:* We will check your labs to evaluate further, and we will discuss further at followup. * D72.9 Disorder of white blood cells, unspecified* New Labs:* CBC With Manual Differential, Ordered: 03/27/20 * Periph Smear For Oncol. Review, Ordered: 03/27/20 * G47.33 Obstructive sleep apnea (adult) (pediatric) * E11.9 Type 2 diabetes mellitus without complications* New Labs:* Lipid Panel, Ordered: 03/27/20 * Z98.84 Bariatric surgery status* New Labs:* Comprehensive Metabolic Profil, Ordered: 03/27/20 * Total Iron Binding Capacit, Ordered: 03/27/20 * Hemoglobin A1c, Ordered: 03/27/20 * FT4&TSH Panel, Ordered: 03/27/20 * Vitamin B12 & Folate, Ordered: 03/27/20 * Vitamin D 25-Hydroxy, Ordered: 03/27/20 * F17.210 Nicotine dependence, cigarettes, uncomplicated * M25.552 Pain in left hip* Comments:* Continue with the recommendations of orthopedics. * R30.0 Dysuria* Comments:* Your urine sample did not show any signs of infection. Functional Status Description No Information Available Mental Status Description No Information Available Referrals Description No Information Available
--- OUTSIDE RECORDS SUMMARY | 2020-04-30 16:16 | CCD ---
Author Author Mara Alcaraz Organization Unknown Address [address] [place] [address] Phone Care Team Providers Care Tank Tester Name Role Phone KieranFareedto PCP Allergies, Adverse Reactions, Alerts No Data in Section Problem List Concept Problem Description Status Start Date Created Date Resolv ed Date Snomed Code F33.1 Major Depressive Disorder, Recurrent episode, Moderate Active 04/02/2020 F17.200 Tobacco Use Disorder, Moderate Active 0 F12.10 Cannabis Use Disorder, Mild Active 04/02/2020 Medications Rx Norm Medication Route Route Concept Start Date Stop Date Dosage Freeman quency Duration Formula Strength Dosage Form Dosage Form Code Dosage Description Medication Id Account Npid Author First Name Author Last Name Taxonomy Code Taxonomy Desc Phone Number [id number] nicotine to skin 03/23/2018 once a day 21 mg/24 h r patch 24 hour 84622 511838 [id number] Radha Lizama [id number] Psychiatric/[facility] l [facility] [id number] 828022 buspirone by mouth D52206 03/06/2020 06/04/2020 twice a day 30 15 mg tablet 85347 890134 [id number] Radha Lizama [id number] P sychiatric/Mental Health [id number] 142388 Cymbalta 04/13/2019 30 mg capsule,delayed r elease(DR/EC) 95949 100239 [id number] Radha Lizama [id number] Psychiatric/Mental Health [id number] Cymbalta 04/13/2019 60 mg capsule,delayed r elease(DR/EC) 64270 [id number] Radha Lizama [id number] Psychiatric/Mental Health [id number] Social History Social History Element Description Concept Effective Date Smoking Status Unknown if ever smoked [id number] 56612704 Immunizations No Data in Section Vital Signs No Data in Section Procedures Date Concept Id Description Targeted Site Concept Targeted Site Concept Type 04/01/2020 91526 Extended Individual Psychotherapy - 45 min CPT Patient has no history of implantable de vices Encounters Encounter Start Date End Date Encounter Type Description Diagnosis Di agnosis Desc Location Author First Name Author Last Name Npid Taxonomy Cod e Taxonomy Desc Phone Number Location Addr1 Location Addr2 Location [facility] Location [facility] te Location [facility] [id number] 04/01/2020 04/01/2020 73662 Extended Individual Psych otherapy - 45 min F33.1 Major depressive disorder, recurrent, moderate Communi ty [facility] [id number] [facility] [address] [address] [phone] Plan of Treatment No Data in Section Lab Results No Data in Section Instructions No Data in Section Insurance Providers Insurance Id Policy Effective Date Policy Thru Date [employer] N lily [id number] 2015 [id number]
--- OUTSIDE RECORDS SUMMARY | 2020-04-30 16:16 | CCD | Continuity of Care Document ---
Author Author Mara KUMAR PA Organization Unknown Address [address] [place] [address] [address] [place] [address] Phone [phone] Care Team Providers Care Editorial Cartoonist Name Role Phone Marlene Chapman D.O. AUTM [phone] Nelly Vang AUTM [phone] Problems Active Problems Provider Date Essential hypertension [...] tabs by mouth every evening Unknown Nystatin 041987Pedy/GM Powder pat skin dry on the lgroin [...] spray each nostril once a day Unknown [employer] Ultra Strips use 1 strip to check [...] F O2 % BldC Oximetry 97 % [place] Body Weight 105 lb Results Description No Information Available Procedures Description [...] Pain in left hip MIGUEL ÁNGEL Sawyer Plan of Treatment Future Appointment(s):* 04/10/2020 11:20 am - MIGUEL ÁNGEL Jones at [facility] 03/27/2020 - MIGUEL ÁNGEL Jones* E66.01 Morbid [...] Comments:* Continue with the recommendations of orthopedics. Functional Status Description No Information Available Mental Status Description No Information Available Referrals Description No Information Available
--- OUTSIDE RECORDS SUMMARY | 2020-04-30 16:19 | CCD ---
Author Author [facility] Organization [facility] Address Unknown Phone Unavailable Care Team Providers Care Termite Control Service Representative Name Role Phone Abdirahman Howell MD Unavailable Unavailable Abdirahman Howell MD Unavailable Unavailable Abdirahman Howell MD Unavailable Unavailable Abdirahman Howell MD Unavailable Unavailable Abdirahman Howell MD Unavailable Unavailable Abdirahman Howell MD Unavailable Unavailable Abdirahman Howell MD Unavailable Unavailable Abdirahman Howell MD Unavailable Unavailable Abdirahman Howell MD Unavailable Unavailable Abdirahman Howell MD Unavailable Unavailable Abdirahman Howell MD Unavailable Unavailable Abdirahman Howell MD Unavailable Unavailable Abdirahman Howell MD Unavailable Unavailable Abdirahman Howell MD Unavailable Unavailable Abdirahman Howell MD Unavailable Unavailable Abdirahman Howell MD Unavailable Unavailable Abdirahman Howell MD Unavailable Unavailable Abdirahman Howell MD Unavailable Unavailable Abdirahman Howell MD Unavailable Unavailable Abdirahman Howell MD Unavailable Unavailable Abdirahman Howell MD Unavailable Unavailable Abdirahman Howell MD Unavailable Unavailable Abdirahman Howell MD Unavailable Unavailable Abdirahman Howell MD Unavailable Unavailable Abdirahman Howell MD Unavailable Unavailable Abdirahman Howell MD Unavailable Unavailable Abdirahman Howell MD Unavailable Unavailable Abdirahman Howell MD Unavailable Unavailable Abdirahman Howell MD Unavailable Unavailable Abdirahman Howell MD Unavailable Unavailable Abdirahman Howell MD Unavailable Unavailable Abdirahman Howell MD Unavailable Unavailable Abdirahman Howell MD Unavailable Unavailable Abdirahman Howell MD Unavailable Unavailable Abdirahman Howell MD Unavailable Unavailable Abdirahman Howell MD Unavailable Unavailable Abdirahman Howell MD Unavailable Unavailable Abdirahman Howell MD Unavailable Unavailable Abdirahman Howell MD Unavailable Unavailable Abdirahman Howell MD Unavailable Unavailable Abdirahman Howell MD Unavailable Unavailable Abdirahman Howell MD Unavailable Unavailable Abdirahman Howell MD Unavailable Unavailable Abdirahman Howell MD Unavailable Unavailable Abdirahman Howell MD Unavailable Unavailable Abdirahman Howell MD Unavailable Unavailable Abdirahman Howell MD Unavailable Unavailable NURY VALLES MD Unavailable Unavailable NURY VALLES MD Unavailable Unavailable NURY VALLES MD Unavailable Unavailable NURY VALLES MD Unavailable Unavailable DRAZEK, I AMELIA PA Unavailable Unavailable DRAZEK, I AMELIA PA Unavailable Unavailable DRAZEK, I AMELIA PA Unavailable Unavailable DRAZEK, I AMELIA PA Unavailable Unavailable DRAZEK, I AMELIA PA Unavailable Unavailable DRAZEK, I AMELIA PA Unavailable Unavailable DRAZEK, I AMELIA PA Unavailable Unavailable DRAZEK, I AMEILA PA Unavailable Unavailable DRAZEK, I AMELIA PA Unavailable Unavailable DRAZEK, I AMELIA PA Unavailable Unavailable DRAZEK, I AMELIA PA Unavailable Unavailable DRAZEK, I AMELIA PA Unavailable Unavailable DRAZEK, I AMELIA PA Unavailable Unavailable DRAZEK, I AMELIA PA Unavailable Unavailable DRAZEK, I AMELIA PA Unavailable Unavailable DRAZEK, I AMELIA PA Unavailable Unavailable DRAZEK, I AMELIA PA Unavailable Unavailable DRAZEK, I AMELIA PA Unavailable Unavailable DRAZEK, I AMELIA PA Unavailable Unavailable DRAZEK, I AMELIA PA Unavailable Unavailable DRAZEK, I AMELIA PA Unavailable Unavailable DRAZEK, I AMELIA PA Unavailable Unavailable DRAZEK, I AMELIA PA Unavailable Unavailable DRAZEK, I AMELIA PA Unavailable Unavailable DRAZEK, I AMELIA PA Unavailable Unavailable DRAZEK, I AMELIA PA Unavailable Unavailable DRAZEK, I AMELIA PA Unavailable Unavailable DRAZEK, I AMELIA PA Unavailable Unavailable DRAZEK, I AMELIA PA Unavailable Unavailable DRAZEK, I AMELIA PA Unavailable Unavailable Argueta, M Barratt PA Unavailable Unavailable Argueta, M Barratt PA Unavailable Unavailable Argueta, M Barratt PA Unavailable Unavailable Argueta, M Barratt PA Unavailable Unavailable Argueta, M Barratt PA Unavailable Unavailable Argueta, M Barratt PA Unavailable Unavailable Argueta, M Barratt PA Unavailable Unavailable Argueta, M Barratt PA Unavailable Unavailable Argueta, M Barratt PA Unavailable Unavailable Argueta, M Barratt PA Unavailable Unavailable Argueta, M Barratt PA Unavailable Unavailable Argueta, M Barratt PA Unavailable Unavailable Argueta, M Barratt PA Unavailable Unavailable Argueta, M Barratt PA Unavailable Unavailable Argueta, M Barratt PA Unavailable Unavailable Argueta, M Barratt PA Unavailable Unavailable Argueta, M Barratt PA Unavailable Unavailable Argueta, M Barratt PA Unavailable Unavailable Argueta, M Barratt PA Unavailable Unavailable Argueta, M Barratt PA Unavailable Unavailable Argueta, M Barratt PA Unavailable Unavailable Argueta, M Barratt PA Unavailable Unavailable Argueta, M Barratt PA Unavailable Unavailable Argueta, M Barratt PA Unavailable Unavailable Argueta, M Barratt PA Unavailable Unavailable Argueta, M Barratt PA Unavailable Unavailable Danii Christianson Unavailable Mil Linares MD Unavailable Unavailable Mil Linares MD Unavailable Unavailable Mil Linares MD Unavailable Unavailable Mil Linares MD Unavailable Unavailable Mil Linares MD Unavailable Unavailable Mil Linares MD Unavailable Unavailable Mil Linares MD Unavailable Unavailable Mil Linares MD Unavailable Unavailable Mil Linares MD Unavailable Unavailable Mil Linares MD Unavailable Unavailable Mil Linares MD Unavailable Unavailable Mil Linares MD Unavailable Unavailable Mil Linares MD Unavailable Unavailable Mil Linares MD Unavailable Unavailable Mil Linares MD Unavailable Unavailable Mil Linares MD Unavailable Unavailable Mil Linares MD Unavailable Unavailable Mil Linares MD Unavailable Unavailable BIRD, LANDY PA Unavailable Unavailable BIRD, LANDY PA Unavailable Unavailable BIRD, LANYD PA Unavailable Unavailable BIRD, LANDY PA Unavailable Unavailable BIRD, LANDY PA Unavailable Unavailable BIRD, LANDY PA Unavailable Unavailable BIRD, LANDY PA Unavailable Unavailable BIRD, LANDY PA Unavailable Unavailable BIRD, LANDY PA Unavailable Unavailable BIRD, LANDY PA Unavailable Unavailable BIRD, LANDY PA Unavailable Unavailable BIRD, LANDY PA Unavailable Unavailable BIRD, LANDY PA Unavailable Unavailable BIRD, LANDY PA Unavailable Unavailable BIRD, LANDY PA Unavailable Unavailable BIRD, LANDY PA Unavailable Unavailable BIRD, LANDY PA Unavailable Unavailable BIRD, LANDY PA Unavailable Unavailable BIRD, LANDY PA Unavailable Unavailable BIRD, LANDY PA Unavailable Unavailable BIRD, LANDY PA Unavailable Unavailable BIRD, LANDY PA Unavailable Unavailable BIRD, LANDY PA Unavailable Unavailable BIRD, LANDY PA Unavailable Unavailable BIRD, LANDY PA Unavailable Unavailable BIRD, LANDY PA Unavailable Unavailable BIRD, LANDY PA Unavailable Unavailable BIRD, LANDY PA Unavailable Unavailable BIRD, LANDY PA Unavailable Unavailable BIRD, LANDY PA Unavailable Unavailable BIRD, LANDY PA Unavailable Unavailable BIRD, LANDY PA Unavailable Unavailable BIRD, LANDY PA Unavailable Unavailable BIRD, LANDY PA Unavailable Unavailable BIRD, LANDY PA Unavailable Unavailable BIRD, LANDY PA Unavailable Unavailable BIRD, LANDY PA Unavailable Unavailable BIDR, LANDY PA Unavailable Unavailable Hodge, Neetu BOOTH SUPERVISOR Unavailable Unavailable Hodge, Neetu BOOTH SUPERVISOR Unavailable Unavailable Hodge, Neetu BOOTH SUPERVISOR Unavailable Unavailable Hodge, Neetu BOOTH SUPERVISOR Unavailable Unavailable Hodge, Neetu BOOTH SUPERVISOR Unavailable Unavailable Hodge, Neetu BOOTH SUPERVISOR Unavailable Unavailable Hodge, Neetu BOOTH SUPERVISOR Unavailable Unavailable Hodge, Neetu BOOTH SUPERVISOR Unavailable Unavailable Hodge, Neetu BOOTH SUPERVISOR Unavailable Unavailable Hodge, Neetu BOOTH SUPERVISOR Unavailable Unavailable Hodge, Neetu BOOTH SUPERVISOR Unavailable Unavailable Bre Christensen MD Unavailable Unavailable Bre Christensen MD Unavailable Unavailable Bre Christensen MD Unavailable Unavailable Bre Christensen MD Unavailable Unavailable Bre Christensen MD Unavailable Unavailable Amparo, Bre Villegas MD Unavailable Unavailable Amparo, Bre Villegas MD Unavailable Unavailable Amparo, Bre Villegas MD Unavailable Unavailable Amparo, Bre Villegas MD Unavailable Unavailable Amparo, Bre Villegas MD Unavailable Unavailable Amparo, Ber Villegas MD Unavailable Unavailable Amparo, Bre Villegas MD Unavailable Unavailable Amparo, Bre Villegas MD Unavailable Unavailable Amparo, Bre Villegas MD Unavailable Unavailable Amparo, Bre Villegas MD Unavailable Unavailable Amparo, Bre Villegas MD Unavailable Unavailable Amparo, Bre Villegas MD Unavailable Unavailable Amparo, Bre Villegas MD Unavailable Unavailable Amparo, Bre Villegas MD Unavailable Unavailable Amparo, Bre Villegas MD Unavailable Unavailable Amparo, Bre Villegas MD Unavailable Unavailable Amparo, Bre Villegas MD Unavailable Unavailable Amparo, Bre Villegas MD Unavailable Unavailable Amparo, Bre Villegas MD Unavailable Unavailable Amparo, Bre Villegas MD Unavailable Unavailable Amparo, Bre Villegas MD Unavailable Unavailable Amparo, Bre Villegas MD Unavailable Unavailable Amparo, Bre Villegas MD Unavailable Unavailable Amparo, Bre Villegas MD Unavailable Unavailable Amparo, Bre Villegas MD Unavailable Unavailable Amparo, Bre Villegas MD Unavailable Unavailable Amparo, Bre Villegas MD Unavailable Unavailable Amparo, Bre Villegas MD Unavailable Unavailable Amparo, Bre Villegas MD Unavailable Unavailable Amparo, Bre Villegas MD Unavailable Unavailable Amparo, Bre Villegas MD Unavailable Unavailable Amparo, Bre Villegas MD Unavailable Unavailable Amparo, Bre Villegas MD Unavailable Unavailable Amparo, Bre Villegas MD Unavailable Unavailable Amparo, Bre Villegas MD Unavailable Unavailable Amparo, Bre Villegas MD Unavailable Unavailable Amparo, Bre Villegas MD Unavailable Unavailable Amparo, Bre Villegas MD Unavailable Unavailable Amparo, Bre Villegas MD Unavailable Unavailable Amparo, Bre Villegas MD Unavailable Unavailable Amparo, Bre Villegas MD Unavailable Unavailable Amparo, Bre Villegas MD Unavailable Unavailable Amparo, Bre Villegas MD Unavailable Unavailable Amparo, Bre Villegas MD Unavailable Unavailable Amparo, Bre Villegas MD Unavailable Unavailable Amparo, Bre Villegas MD Unavailable Unavailable Amparo, Bre Villegas MD Unavailable Unavailable Amparo, Bre Villegas MD Unavailable Unavailable Amparo, Bre Villegas MD Unavailable Unavailable Amparo, Bre Villegas MD Unavailable Unavailable Amparo, Bre Villegas MD Unavailable Unavailable Amparo, Bre Villegas MD Unavailable Unavailable Amparo, Bre Villegas MD Unavailable Unavailable Amparo, Bre Villegas MD Unavailable Unavailable Amparo, Bre Villegas MD Unavailable Unavailable Amparo, Bre Villegas MD Unavailable Unavailable Amparo, Bre Villegas MD Unavailable Unavailable Amparo, Bre Villegas MD Unavailable Unavailable Amparo, Bre Villegas MD Unavailable Unavailable Amparo, Bre Villegas MD Unavailable Unavailable Amparo, Bre Villegas MD Unavailable Unavailable Amparo, Bre Villegas MD Unavailable Unavailable Amparo, Bre Villegas MD Unavailable Unavailable Amparo, Bre Villegas MD Unavailable Unavailable Amparo, Bre Villegas MD Unavailable Unavailable Amparo, Bre Villegas MD Unavailable Unavailable Amparo, Bre Villegas MD Unavailable Unavailable Amparo, Bre Villegas MD Unavailable Unavailable Amparo, Bre Villegas MD Unavailable Unavailable Amparo, Bre Villegas MD Unavailable Unavailable Amparo, Bre Villegas MD Unavailable Unavailable Amparo, Bre Villegas MD Unavailable Unavailable Amparo, Bre Villegas MD Unavailable Unavailable Amparo, Bre Villegas MD Unavailable Unavailable Amparo, Bre Villegas MD Unavailable Unavailable Amparo, Bre Villegas MD Unavailable Unavailable Amparo, Bre Villegas MD Unavailable Unavailable Amparo, Bre Villegas MD Unavailable Unavailable Amparo, Bre Villegas MD Unavailable Unavailable Amparo, Bre Villegas MD Unavailable Unavailable Amparo, Bre Villegas MD Unavailable Unavailable Amparo, Bre Villegas MD Unavailable Unavailable Amparo, Bre Villegas MD Unavailable Unavailable Amparo, Bre Villegas MD Unavailable Unavailable Amparo, Bre Villegas MD Unavailable Unavailable Amparo, Bre Villegas MD Unavailable Unavailable Amparo, Bre Villegas MD Unavailable Unavailable Amparo, Bre Villegas MD Unavailable Unavailable Amparo, Bre Villegas MD Unavailable Unavailable Amparo, Bre Villegas MD Unavailable Unavailable Amparo, rBe Villegas MD Unavailable Unavailable Amparo, Bre Villegas MD Unavailable Unavailable Amparo, Bre Villegas MD Unavailable Unavailable Amparo, Bre Villegas MD Unavailable Unavailable Amparo, Bre Villegas MD Unavailable Unavailable Amparo, Bre Villegas MD Unavailable Unavailable Amparo, Bre Villegas MD Unavailable Unavailable Amparo, Bre Villegas MD Unavailable Unavailable Amparo, Bre Villegas MD Unavailable Unavailable Amparo, Bre Villegas MD Unavailable Unavailable Amparo, Bre Villegas MD Unavailable Unavailable Amparo, Bre Villegas MD Unavailable Unavailable Amparo, Bre Villegas MD Unavailable Unavailable Amparo, Bre Villegas MD Unavailable Unavailable Amparo, Bre Villegas MD Unavailable Unavailable Amparo, Bre Villegas MD Unavailable Unavailable Amparo, Bre Villegas MD Unavailable Unavailable Amparo, Bre Villegas MD Unavailable Unavailable Amparo, Bre Villegas MD Unavailable Unavailable Amparo, Bre Villegas MD Unavailable Unavailable Amparo, Bre Villegas MD Unavailable Unavailable Amparo, Bre Villegas MD Unavailable Unavailable Amparo, Bre Villegas MD Unavailable Unavailable Amparo, Bre Villegas MD Unavailable Unavailable Amparo, Bre Villegas MD Unavailable Unavailable Amparo, Bre Villegas MD Unavailable Unavailable Amparo, Bre Villegas MD Unavailable Unavailable Amparo, Bre Villegas MD Unavailable Unavailable Amparo, Bre Villegas MD Unavailable Unavailable Amparo, Bre Villegas MD Unavailable Unavailable Amparo, Bre Villegas MD Unavailable Unavailable Amparo, Bre Villegas MD Unavailable Unavailable Amparo, Bre Villegas MD Unavailable Unavailable Amparo, Bre Villegas MD Unavailable Unavailable Amparo, Bre Villegas MD Unavailable Unavailable Amparo, Bre Villegas MD Unavailable Unavailable Amparo, Bre Villegas MD Unavailable Unavailable Amparo, Bre Villegas MD Unavailable Unavailable Amparo, Bre Villegas MD Unavailable Unavailable Amparo, Bre Villegas MD Unavailable Unavailable Amparo, Bre Villegas MD Unavailable Unavailable Amparo, Bre Villegas MD Unavailable Unavailable Amparo, Bre Villegas MD Unavailable Unavailable Amparo, Bre Villegas MD Unavailable Unavailable Amparo, Bre Villegas MD Unavailable Unavailable Amparo, Bre Villegas MD Unavailable Unavailable Amparo, Bre Villegas MD Unavailable Unavailable Amparo, Bre Villegas MD Unavailable Unavailable Amparo, Bre Villegas MD Unavailable Unavailable Amparo, Bre Villegas MD Unavailable Unavailable Amparo, Bre Villegas MD Unavailable Unavailable Amparo, Bre Villegas MD Unavailable Unavailable Amparo, Bre Villegas MD Unavailable Unavailable Amparo, Bre Villegas MD Unavailable Unavailable Amparo, Bre Villegas MD Unavailable Unavailable Amparo, Bre Villegas MD Unavailable Unavailable Amparo, Bre Villegas MD Unavailable Unavailable MAJVanessa MARX DPM Unavailable Unavailable MAJAK, Vanessa DENIS DPM Unavailable Unavailable MAJAK, Vanessa DENIS DPM Unavailable Unavailable MAJAK, R ADEEL DPM Unavailable Unavailable MAJAK, R ADEEL DPM Unavailable Unavailable MAJAK, R ADEEL DPM Unavailable Unavailable MAJAK, R ADEEL DPM Unavailable Unavailable MAJAK, R ADEEL DPM Unavailable Unavailable MAJAK, R ADEEL DPM Unavailable Unavailable MAJAK, R ADEEL DPM Unavailable Unavailable MAJAK, R ADEEL DPM Unavailable Unavailable MAJAK, R ADEEL DPM Unavailable Unavailable MAJAK, R ADEEL DPM Unavailable Unavailable MAJAK, R ADEEL DPM Unavailable Unavailable MAJAK, R ADEEL DPM Unavailable Unavailable MAJAK, R ADEEL DPM Unavailable Unavailable MAJAK, R ADEEL DPM Unavailable Unavailable MAJAK, R ADEEL DPM Unavailable Unavailable MAJAK, R ADEEL DPM Unavailable Unavailable MAJAK, R ADEEL DPM Unavailable Unavailable MAJAK, R ADEEL DPM Unavailable Unavailable MAJAK, R ADEEL DPM Unavailable Unavailable MAJAK, R ADEEL DPM Unavailable Unavailable MAJAK, R ADEEL DPM Unavailable Unavailable MAJAK, R ADEEL DPM Unavailable Unavailable MAJAK, R ADEEL DPM Unavailable Unavailable MAJAK, R ADEEL DPM Unavailable Unavailable MAJAK, R ADEEL DPM Unavailable Unavailable MAJAK, R ADEEL DPM Unavailable Unavailable MAJAK, R ADEEL DPM Unavailable Unavailable Arleen, Siddharth PA Unavailable Unavailable Arleen, Siddharth PA Unavailable Unavailable Arleen, Siddharth PA Unavailable Unavailable Arleen, Siddharth PA Unavailable Unavailable Arleen, Siddharth PA Unavailable Unavailable Arleen, Siddharth PA Unavailable Unavailable Arleen, Siddharth PA Unavailable Unavailable Arleen, Siddharth PA Unavailable Unavailable Arleen, Siddharth PA Unavailable Unavailable Arleen, Siddharth PA Unavailable Unavailable Arleen, Siddharth PA Unavailable Unavailable Arleen, Siddharth PA Unavailable Unavailable Arleen, Siddharth PA Unavailable Unavailable Arleen, Siddharth PA Unavailable Unavailable Arleen, Siddharth PA Unavailable Unavailable Arleen, Siddharth PA Unavailable Unavailable Arleen, Siddharth PA Unavailable Unavailable Arleen, Siddharth PA Unavailable Unavailable Arleen, Siddharth PA Unavailable Unavailable Arleen, Siddharth PA Unavailable Unavailable Arleen, Siddharth PA Unavailable Unavailable Arleen, Siddharth PA Unavailable Unavailable Arleen, Siddharth PA Unavailable Unavailable Arleen, Siddharth PA Unavailable Unavailable Arleen, Siddharth PA Unavailable Unavailable Arleen, Siddharth PA Unavailable Unavailable Arleen, Siddharth PA Unavailable Unavailable Arleen, Siddharth PA Unavailable Unavailable Arleen, Siddharth PA Unavailable Unavailable Arleen, Siddharth PA Unavailable Unavailable Arleen, Siddharth PA Unavailable Unavailable Arleen, Siddharth PA Unavailable Unavailable Arleen, Siddharth PA Unavailable Unavailable Arleen, Siddharth PA Unavailable Unavailable Arleen, Siddharth PA Unavailable Unavailable Arleen, Siddharth PA Unavailable Unavailable Arleen, Siddharth PA Unavailable Unavailable Arleen, Siddharth PA Unavailable Unavailable Arleen, Siddharth PA Unavailable Unavailable Arleen, Siddharth PA Unavailable Unavailable Arleen, Siddharth PA Unavailable Unavailable Arleen, Siddharth PA Unavailable Unavailable Arleen, Siddharth PA Unavailable Unavailable Arleen, Siddharth PA Unavailable Unavailable Arleen, Siddharth PA Unavailable Unavailable Arleen, Siddharth PA Unavailable Unavailable Arleen, Siddharth PA Unavailable Unavailable Arleen, Siddharth PA Unavailable Unavailable LaBarge, Octavio Unavailable Orville Iverson MD Unavailable Unavailable Orville Iverson MD Unavailable Unavailable Orville Iverson MD Unavailable Unavailable Orville Iverson MD Unavailable Unavailable Orville Iverson MD Unavailable Unavailable Orville Iverson MD Unavailable Unavailable Orville Iverson MD Unavailable Unavailable Orville Iverson MD Unavailable Unavailable Orville Iverson MD Unavailable Unavailable Orville Iverson MD Unavailable Unavailable Orville Iverson MD Unavailable Unavailable Orville Iverson MD Unavailable Unavailable Orville Iverson MD Unavailable Unavailable Orville Iverson MD Unavailable Unavailable Orville Iverson MD Unavailable Unavailable Orville Iverson MD Unavailable Unavailable Orville Iverson MD Unavailable Unavailable Orville Iverson MD Unavailable Unavailable Orville Iverson MD Unavailable Unavailable Orville Iverson MD Unavailable Unavailable Orville Iverson MD Unavailable Unavailable Orville Iverson MD Unavailable Unavailable Orville Iverson MD Unavailable Unavailable Orville Iverson MD Unavailable Unavailable Orville Iverson MD Unavailable Unavailable Orville Iverson MD Unavailable Unavailable Orville Iverson MD Unavailable Unavailable Orville Iverson MD Unavailable Unavailable Orville Iverson MD Unavailable Unavailable Orville Iverson MD Unavailable Unavailable Orville Iverson MD Unavailable Unavailable Orville Iverson MD Unavailable Unavailable Orville Iverson MD Unavailable Unavailable Orville Iverson MD Unavailable Unavailable Orville Iverson MD Unavailable Unavailable Orville Iverson MD Unavailable Unavailable Orville Iverson MD Unavailable Unavailable Orville Iverson MD Unavailable Unavailable Orville Iverson MD Unavailable Unavailable Orville Iverson MD Unavailable Unavailable Orville Iverson MD Unavailable Unavailable Orville Iverson MD Unavailable Unavailable Orville Iverson MD Unavailable Unavailable Orville Iverson MD Unavailable Unavailable Orville Iverson MD Unavailable Unavailable Orville Iverson MD Unavailable Unavailable Orville Iverson MD Unavailable Unavailable Orville Iverson MD Unavailable Unavailable ZayraOrville MD Unavailable Unavailable ZayraOrville MD Unavailable Unavailable ZayraOrville MD Unavailable Unavailable Zayra, Orville MEYERS Unavailable Unavailable Zayra, Orville MEYERS Unavailable Unavailable Zayra, Orville MEYERS Unavailable Unavailable Fareed Alcarazto Unavailable KieranFareedto Unavailable ZayraOrville ruiz MD Unavailable Unavailable ZayraOrville MD Unavailable Unavailable ZayraOrville MD Unavailable Unavailable Zayra, Orville MEYERS Unavailable Unavailable Zayra, Orville MEYERS Unavailable Unavailable Zayra, Orville MEYERS Unavailable Unavailable Zayra, Orville MEYERS Unavailable Unavailable ZayraOrville MD Unavailable Unavailable ZayraOrville MD Unavailable Unavailable ZayraOrville MD Unavailable Unavailable ZayraOrville MD Unavailable Unavailable ZayraOrville MD Unavailable Unavailable Zayra, Orville MEYERS Unavailable Unavailable ZayraOrville MD Unavailable Unavailable Zayra, Orville MEYERS Unavailable Unavailable Zayra, Orville MEYERS Unavailable Unavailable ZayraOrville ruiz MD Unavailable Unavailable Orville Iverson MD Unavailable Unavailable ZayraOrville ruiz MD Unavailable Unavailable ZayraOrville ruiz MD Unavailable Unavailable ZayraOrville MD Unavailable Unavailable ZayraOrville MD Unavailable Unavailable ZayraOrville MD Unavailable Unavailable ZayraOrville MD Unavailable Unavailable ZayraOrville MD Unavailable Unavailable ZayraOrville ruiz MD Unavailable Unavailable ZayraOrville ruiz MD Unavailable Unavailable ZayraOrville ruiz MD Unavailable Unavailable ZayraOrville MD Unavailable Unavailable ZayraOrville MD Unavailable Unavailable ZayraOrville MD Unavailable Unavailable ZayraOrville MD Unavailable Unavailable ZayraOrville MD Unavailable Unavailable ZayraOrville ruiz MD Unavailable Unavailable Orville Iverson MD Unavailable Unavailable Orville Iverson MD Unavailable Unavailable Orville Iversno MD Unavailable Unavailable ZayraOrville ruiz MD Unavailable Unavailable ZayraOrville ruiz MD Unavailable Unavailable ZayraOrville ruiz MD Unavailable Unavailable ZayraOrville MD Unavailable Unavailable ZayraOrville MD Unavailable Unavailable ZayraOrville MD Unavailable Unavailable ZayraOrville ruiz MD Unavailable Unavailable Orville Iverson MD Unavailable Unavailable Orville Iverson MD Unavailable Unavailable ZayraOrville ruiz MD Unavailable Unavailable ZayraOrville ruiz MD Unavailable Unavailable ZayraOrville ruiz MD Unavailable Unavailable ZayraOrville ruiz MD Unavailable Unavailable ZayraOrville MD Unavailable Unavailable ZayraOrville ruiz MD Unavailable Unavailable ZayraOrville ruiz MD Unavailable Unavailable Orville Iverson MD Unavailable Unavailable Orville Iverson MD Unavailable Unavailable ZayraOrville ruiz MD Unavailable Unavailable ZayraOrville ruiz MD Unavailable Unavailable ZayraOrville ruiz MD Unavailable Unavailable ZayraOrville MD Unavailable Unavailable ZayraOrville MD Unavailable Unavailable ZayraOrville MD Unavailable Unavailable Zayra, Orville MEYERS Unavailable Unavailable Zayra, Orville MEYERS Unavailable Unavailable Zayra, Orville MEYERS Unavailable Unavailable Zayra, Orville MEYERS Unavailable Unavailable Zayra, Orville MEYERS Unavailable Unavailable Zayra, Orville MEYERS Unavailable Unavailable Zayra, Orville MEYERS Unavailable Unavailable Zayra, Orville MEYERS Unavailable Unavailable Zayra, Orville MEYERS Unavailable Unavailable Zayra, Orville MEYERS Unavailable Unavailable Zayra, Orville MEYERS Unavailable Unavailable Zayra, Orville MEYERS Unavailable Unavailable Zayra, Orville MEYERS Unavailable Unavailable Zayra, Orville MEYERS Unavailable Unavailable Zayra, Orville MEYERS Unavailable Unavailable Zayra, Orville MEYERS Unavailable Unavailable Zayra, Orville MEYERS Unavailable Unavailable Zayra, Orville MEYERS Unavailable Unavailable Zayra, Orville MEYERS Unavailable Unavailable Zayra, Orville MEYERS Unavailable Unavailable Zayra, Orville MEYERS Unavailable Unavailable Zayra, Orville MEYERS Unavailable Unavailable Zayra, Orville MEYERS Unavailable Unavailable Zayra, Orville MEYERS Unavailable Unavailable Zayra, Orville MEYERS Unavailable Unavailable Zayra, Orville MEYERS Unavailable Unavailable Zayra, Orville MEYERS Unavailable Unavailable Zayra, Orville MEYERS Unavailable Unavailable Zayra, Orville MEYERS Unavailable Unavailable Zayra, Orville MEYERS Unavailable Unavailable Zayra, Orville MEYERS Unavailable Unavailable Zayra, Orville MEYERS Unavailable Unavailable Zayra, Orville MEYERS Unavailable Unavailable Zayra, Orville MEYERS Unavailable Unavailable Zayra, Orville MEYERS Unavailable Unavailable Zayra, Orville MEYERS Unavailable Unavailable Zayra, Orville MEYERS Unavailable Unavailable Zayra, Orville MEYERS Unavailable Unavailable Zayra, Orville MEYERS Unavailable Unavailable Zayra, Orville MEYERS Unavailable Unavailable Zayra, Orville MEYERS Unavailable Unavailable Zayra, Orville MEYERS Unavailable Unavailable Zayra, Orville MEYERS Unavailable Unavailable Zayra, Orville MEYERS Unavailable Unavailable Zayra, Orville MEYERS Unavailable Unavailable Zayra, Orville MEYERS Unavailable Unavailable ZayraOrville ruiz MD Unavailable Unavailable Glynn Wiseman MD Unavailable Unavailable Glynn Wiseman MD Unavailable Unavailable Glynn Wiseman MD Unavailable Unavailable Glynn Wiseman MD Unavailable Unavailable Glynn Wiseman MD Unavailable Unavailable Glynn Wiseman MD Unavailable Unavailable Glynn Wiseman MD Unavailable Unavailable Glynn Wiseman MD Unavailable Unavailable Glynn Wiseman MD Unavailable Unavailable Glynn Wiseman MD Unavailable Unavailable Glynn Wiseman MD Unavailable Unavailable Glynn Wiseman MD Unavailable Unavailable Glynn Wiseman MD Unavailable Unavailable Glynn Wiseman MD Unavailable Unavailable Glynn Wiseman MD Unavailable Unavailable Glynn Wiseman MD Unavailable Unavailable Glynn Wiseman MD Unavailable Unavailable Glynn Wiseman MD Unavailable Unavailable Glynn Wiseman MD Unavailable Unavailable Glynn Wiseman MD Unavailable Unavailable Glynn Wiseman MD Unavailable Unavailable Glynn Wiseman MD Unavailable Unavailable Glynn Wiseman MD Unavailable Unavailable Glynn Wiseman MD Unavailable Unavailable Ali, Glynn MD Unavailable Unavailable Ali, Glynn MD Unavailable Unavailable Ali, Glynn MD Unavailable Unavailable Ali, Glynn MD Unavailable Unavailable Ali, Glynn MD Unavailable Unavailable Ali, Glynn MD Unavailable Unavailable Ali, Glynn MD Unavailable Unavailable Ali, Glynn MD Unavailable Unavailable Ali, Glynn MD Unavailable Unavailable Ali, Glynn MD Unavailable Unavailable Ali, Glynn MD Unavailable Unavailable Ali, Glynn MD Unavailable Unavailable Ali, Glynn MD Unavailable Unavailable Ali, Glynn MD Unavailable Unavailable Ali, Glynn MD Unavailable Unavailable Ali, Glynn MD Unavailable Unavailable Ali, Glynn MD Unavailable Unavailable Ali, Glynn MD Unavailable Unavailable Ali, Glynn MD Unavailable Unavailable Ali, Glynn MD Unavailable Unavailable Ali, Glynn MD Unavailable Unavailable Ali, Glynn MD Unavailable Unavailable Ali, Glynn MD Unavailable Unavailable Ali, Glynn MD Unavailable Unavailable Ali, Glynn MD Unavailable Unavailable Ali, Glynn MD Unavailable Unavailable Ali, Glynn MD Unavailable Unavailable Ali, Glynn MD Unavailable Unavailable Steward, M Clarisa BOOTH SUPERVISOR Unavailable Unavailable Steward, M Calrisa BOOTH SUPERVISOR Unavailable Unavailable Steward, M Clarisa BOOTH SUPERVISOR Unavailable Unavailable Steward, M Clarisa BOOTH SUPERVISOR Unavailable Unavailable Steward, M Clarisa BOOTH SUPERVISOR Unavailable Unavailable Steward, M Clarisa BOOTH SUPERVISOR Unavailable Unavailable Steward, M Clarisa BOOTH SUPERVISOR Unavailable Unavailable Steward, M Clarisa BOOTH SUPERVISOR Unavailable Unavailable Steward, M Clarisa BOOTH SUPERVISOR Unavailable Unavailable Steward, M Clarisa BOOTH SUPERVISOR Unavailable Unavailable Steward, M Clarisa BOOTH SUPERVISOR Unavailable Unavailable Steward, M Clarisa BOOTH SUPERVISOR Unavailable Unavailable Steward, M Clarisa BOOTH SUPERVISOR Unavailable Unavailable Steward, M Clarisa BOOTH SUPERVISOR Unavailable Unavailable Steward, M Clarisa BOOTH SUPERVISOR Unavailable Unavailable Steward, M Clarisa BOOTH SUPERVISOR Unavailable Unavailable Steward, M Clarisa BOOTH SUPERVISOR Unavailable Unavailable Steward, M Clarisa BOOTH SUPERVISOR Unavailable Unavailable Steward, M Clarisa BOOTH SUPERVISOR Unavailable Unavailable Steward, M Clarisa BOOTH SUPERVISOR Unavailable Unavailable Tseward, M Clarisa BOOTH SUPERVISOR Unavailable Unavailable Steward, M Clarisa BOOTH SUPERVISOR Unavailable Unavailable Steward, M Clarisa BOOTH SUPERVISOR Unavailable Unavailable Steward, M Clarisa BOOTH SUPERVISOR Unavailable Unavailable Steward, M Clarisa BOOTH SUPERVISOR Unavailable Unavailable Steward, M Clarisa BOOTH SUPERVISOR Unavailable Unavailable Steward, M Clarisa BOOTH SUPERVISOR Unavailable Unavailable Steward, M Clarisa BOOTH SUPERVISOR Unavailable Unavailable Steward, M Clarisa BOOTH SUPERVISOR Unavailable Unavailable Steward, M Clarisa BOOTH SUPERVISOR Unavailable Unavailable MACQUEEN, RADHA BOOTH SUPERVISOR Unavailable Unavailable MACQUEEN, RADHA BOOTH SUPERVISOR Unavailable Unavailable MACQUEEN, RADHA BOOTH SUPERVISOR Unavailable Unavailable MACQUEEN, RADHA BOOTH SUPERVISOR Unavailable Unavailable MACQUEEN, RADHA BOOTH SUPERVISOR Unavailable Unavailable MACQUEEN, RADHA BOOTH SUPERVISOR Unavailable Unavailable MACQUEEN, RADHA BOOTH SUPERVISOR Unavailable Unavailable MACQUEEN, RADHA BOOTH SUPERVISOR Unavailable Unavailable MACQUEEN, RADHA BOOTH SUPERVISOR Unavailable Unavailable MACQUEEN, RADHA BOOTH SUPERVISOR Unavailable Unavailable MACQUEEN, RADHA BOOTH SUPERVISOR Unavailable Unavailable Sandesr, Lashay Funmi PA Unavailable Unavailable Sanders, Lashay Funmi PA Unavailable Unavailable Sanders, Lashay Funmi PA Unavailable Unavailable Sanders, Lashay Funmi PA Unavailable Unavailable Sanders, Lashay Funmi PA Unavailable Unavailable Sanders, Lashay Funmi PA Unavailable Unavailable Sanders, Lashay Funmi PA Unavailable Unavailable Sanders, Lashay Funmi PA Unavailable Unavailable Sanders, Lashay Funmi PA Unavailable Unavailable Sanders, Lashay Funmi PA Unavailable Unavailable MOLINA PA, (WLS) BABITA Unavailable Unavailable Parish, L Bell BOOTH SUPERVISOR Unavailable Unavailable Parish, L Bell BOOTH SUPERVISOR Unavailable Unavailable Parish, L Bell BOOTH SUPERVISOR Unavailable Unavailable Parish, L Bell BOOTH SUPERVISOR Unavailable Unavailable Parish, L Bell BOOTH SUPERVISOR Unavailable Unavailable Parish, L Bell BOOTH SUPERVISOR Unavailable Unavailable Parish, L Bell BOOTH SUPERVISOR Unavailable Unavailable Parish, L Bell BOOTH SUPERVISOR Unavailable Unavailable Parish, L Bell BOOTH SUPERVISOR Unavailable Unavailable Parish, L Bell BOOTH SUPERVISOR Unavailable Unavailable Parish, L Bell BOOTH SUPERVISOR Unavailable Unavailable Parish, L Bell BOOTH SUPERVISOR Unavailable Unavailable Parish, L Bell BOOTH SUPERVISOR Unavailable Unavailable Parish, L Bell BOOTH SUPERVISOR Unavailable Unavailable Parish, L Bell BOOTH SUPERVISOR Unavailable Unavailable Parish, L Bell BOOTH SUPERVISOR Unavailable Unavailable Parish, L Bell BOOTH SUPERVISOR Unavailable Unavailable Parish, L Bell BOOTH SUPERVISOR Unavailable Unavailable Parish, L Bell BOOTH SUPERVISOR Unavailable Unavailable Parish, L Bell BOOTH SUPERVISOR Unavailable Unavailable Parish, L Bell BOOTH SUPERVISOR Unavailable Unavailable Parish, L Bell BOOTH SUPERVISOR Unavailable Unavailable Re-disclosure Warning The records that you are about to access may contain information from federally-assisted alcohol or drug abuse programs. If such information is present, then the following federally mandated warning applies: This information has been disclosed to you from records protected by federal confidentiality rules (42 CFR part 2). The federal rules prohibit you from making any further disclosure of this information unless further disclosure is expressly permitted by the written consent of the person to whom it pertains or as otherwise permitted by 42 CFR part 2. A general authorization for the release of medical or other information is NOT sufficient for this purpose. The Federal rules restrict any use of the information to criminally investigate or prosecute any alcohol or drug abuse patient.The records that you are about to access may contain highly sensitive health information, the redisclosure of which is protected by Article 27-F of the [facility] Public Health law. If you continue you may have access to information: Regarding HIV / AIDS; Provided by facilities licensed or operated by the [facility] Office of Mental Health; or Provided by the [facility] Office for People With Developmental Disabilities. If such information is present, then the following [facility] mandated warning applies: This information has been disclosed to you from confidential records which are protected by state law. State law prohibits you from making any further disclosure of this information without the specific written consent of the person to whom it pertains, or as otherwise permitted by law. Any unauthorized further disclosure in violation of state law may result in a fine or penitentiary sentence or both. A general authorization for the release of medical or other information is NOT sufficient authorization for further disc losure. Allergies and Adverse Reactions Type Description Substance Reaction Status Data Source(s ) CLASS SULFA (sulfonamide) SULFA (sulfonamide) RASH [facility] NSAIDS NSAIDS NSAIDS gastric bypass Active eCW1 ([facility]) Sulfa (for allergy use only) Sulfa (for allergy use only) Steele lfa (for allergy use only) Rash Active eCW1 ([facility]) NSAIDS NSAIDS NSAIDS gastric bypass Active eCW1 ([facility]) Sulfa (for allergy use only) Sulfa (for allergy use only) Steele lfa (for allergy use only) Rash Active eCW1 ([facility]) NSAIDS NSAIDS NSAIDS gastric bypass Active eCW1 ([facility]) Sulfa (for allergy use only) Sulfa (for allergy use only) Steele lfa (for allergy use only) Rash Active eCW1 ([facility]) NSAIDS NSAIDS NSAIDS gastric bypass Active eCW1 ([facility]) Sulfa (for allergy use only) Sulfa (for allergy use only) Steele lfa (for allergy use only) Rash Active eCW1 ([facility]) NSAIDS NSAIDS NSAIDS gastric bypass Active eCW1 ([facility]) Sulfa (for allergy use only) Sulfa (for allergy use only) Steele lfa (for allergy use only) Rash Active eCW1 ([facility]) NSAIDS NSAIDS NSAIDS gastric bypass Active eCW1 ([facility]) Sulfa (for allergy use only) Sulfa (for allergy use only) Steele lfa (for allergy use only) Rash Active eCW1 ([facility]) NSAIDS NSAIDS NSAIDS gastric bypass Active eCW1 ([facility]) Sulfa (for allergy use only) Sulfa (for allergy use only) Steele lfa (for allergy use only) Rash Active eCW1 ([facility]) NSAIDS NSAIDS NSAIDS gastric bypass Active eCW1 ([facility]) Sulfa (for allergy use only) Sulfa (for allergy use only) Steele lfa (for allergy use only) Rash Active eCW1 ([facility]) NSAIDS NSAIDS NSAIDS gastric bypass Active eCW1 ([facility]) Sulfa (for allergy use only) Sulfa (for allergy use only) Steele lfa (for allergy use only) Rash Active eCW1 ([facility]) NSAIDS NSAIDS NSAIDS gastric bypass Active eCW1 ([facility]) Sulfa (for allergy use only) Sulfa (for allergy use only) Steele lfa (for allergy use only) Rash Active eCW1 ([facility]) Family History Family Member Name Family Member Gender Family Member Status Date o f Status Description Data Source(s) Unknown Unknown Problem [facility] ([facility]) Encounters Encounter Providers Location Date Indications Data Source(s ) Extended Individual Psychotherapy - 45 min Attender: Fareed Alcaraz [facility] 04/26/2020 03:00:00 AM EST - 04/26/2020 03:00:00 AM EST [facility] ([facility]) Attender: Alvin Alcaraz 04/26/2020 12:00:00 AM EST [facility] ([facility]) Outpatient Attender: Funmi mattson 04/23/2020 02:15:00 PM EST [facility] ([facility]) Outpatient Attender: Maninder Howell MD Main Office 04/23/2020 11:45:00 AM EST [facility] ([facility]) Outpatient Attender: RADHA NIX NP [facility] 04/17/2020 11:30:00 AM EST - 04/17/2020 11:30:00 AM EST [facility] ([facility]) Attender: RADHA NIX NP 04/17/2020 12:00:00 AM EST [facility] ([facility]) Outpatient Attender: Nicole DEL ROSARIO Physical Therapy 12:00:00 PM EST [facility] Attender: Alvin Alcaraz 04/02/2020 12:00:00 AM EST [facility] ([facility]) Extended Individual Psychotherapy - 45 min Attender: Fareed Alcaraz [facility] 04/01/2020 02:00:00 AM EST - 04/01/2020 02:00:00 AM EST [facility] ([facility]) Outpatient Attender: Siddharth DEL ROSARIO Family Medicine [facility] 03/27/2020 09:40:00 AM EST MEDENT (Family Medicine [facility]) Outpatient [address] [facility] [id number] 03/27/2020 12:00:00 AM EST eCW1 ([facility]) Psychiatric Diagnostic Evaluation (Non-Medical) Attender: Yusuf Alcaraz [facility] 03/20/2020 12:00:00 PM EST - 03/20/2020 12:00:00 PM EST [facility] ([facility]) Attender: Alvin Alcaraz 03/20/2020 12:00:00 AM EST [facility] ([facility]) Outpatient Attender: Maninder Howell MD Main Office 03/19/2020 12:00:00 PM EST MED[facility] ([facility]) Outpatient [address] [facility] [id number] 03/19/2020 12:00:00 AM EST eCW1 ([facility]) Office Visit, Est Pt., Level 4 PC [address] [place] [address] 03/13/2020 12:00:00 AM EST eCW1 ([facility]) (PN Proc 45) Pain Procedure 45 [address] [place] [address] 03/05/2020 12:00:00 AM EST eCW1 ([facility]) Unknown [address] [facility] [place] [address] 03/04/2020 12:00:00 AM EST eCW1 ([facility]) Brief Individual Psychotherapy - 30 min Attender: Danii velarde [facility] 02/28/2020 09:00:00 AM EST - 02/28/2020 09:00:00 AM EST [facility] ([facility]) Attender: Danii Christianson 02/28/2020 12:00:00 AM EST [facility] ([facility]) Outpatient Attender: AEMLIA DEL ROSARIO Physical Therapy 02/27/2020 0 1:30:00 PM EST [facility] ([facility]) Outpatient [address] [facility] [id number] 02/14/2020 12:00:00 AM EDT eCW1 ([facility]) Unknown [address] [facility] [id number] 02/13/2020 12:00:00 AM EDT eCW1 ([facility]) Outpatient [address] [facility] [id number] 01/31/2020 12:00:00 AM EDT eCW1 ([facility]) Office Visit Attender: AMELIA DEL ROSARIO Physical Therapy 2019 03:00:00 PM EDT [facility] ([facility]) Outpatient Attender: Jamie Still/Patricia/Yg/Tanvi zimmer 01/24/2020 10:15:00 AM EDT MED[facility] ([facility]) Unknown [address] [facility] [place] [address] 01/16/2020 12:00:00 AM EDT eCW1 ([facility]) Outpatient<td ID="encounterTypeDescripti onID0">EXTENDED VISIT</td><td>Nelly Christensen MD</td><td>[facility]</td><td>01/09/2020</td><td>9:43AM</td><td>10/25/2019 11:59PM</td> <td></td> Attender: Nelly Christensen MD [facility] 09:43:00 AM EDT - 10/25/2019 11:59:00 PM EDT [facility] ([facility]) Outpatient Attender: AMELIA DEL ROSARIO Physical Therapy 12/28/2019 0 1:15:00 PM EDT MED[facility] ([facility] ) Outpatient Attender: AMELIA DEL ROSARIO Physical Therapy 11/23/2019 0 9:40:00 AM EDT [facility] ([facility] ) [facility] [place] [address] [facility] [place] [address] 11/20/2019 12:00:00 AM EDT eCW1 ([facility]) Unknown [address] [facility] [place] [address] 11/09/2019 12:00:00 AM EDT eCW1 ([facility]) Outpatient<td ID="encounterTypeDescripti onID1">EXTENDED VISIT</td><td>Orville Iverson MD</td><td>[facility]</td><td>10/25/2019</td><td>2:00PM</td><td>3:09PM</td><td><content ID="encounterDiagnosisID1-0">Assessment of Current Smoker</content>, <content ID="encounterDiagnosisID1-1">Diabetes Mellitus Type 2</content>, <content ID="encounterDiagnosisID1-2">Essential Hypertension</content>, <content ID="encounterDiagnosisID1-3">Pyelonephritis Acute Bacterial</content></td> Attender: Orville Iverson MD [facility] 10/25/2019 02:00:00 PM EDT - 10/25/2019 03:09:00 PM EDT Pyelonephritis Acute BacterialPyelonephr itis Acute BacterialPyelonephritis Acute BacterialDiabetes Mellitus Type 2Assessment of Current SmokerDiabetes Mellitus Type 2Assessment of Current SmokerDiabetes Mellitus Type 2Assessment of Current SmokerEssential HypertensionEssential HypertensionEssential Hypertension [facility] ([facility]) Pyelonephritis Acute Bacterial Pyelonephritis Acute Bacterial Pyelonephritis Acute Bacterial Diabetes Mellitus Type 2 Assessment of Current Smoker Diabetes Mellitus Type 2 Assessment of Current Smoker Diabetes Mellitus Type 2 Assessment of Current Smoker Essential Hypertension Essential Hypertension Essential Hypertension TEMPMHCTelemed 30" Psychotherapy Attender: Octavio Brown [facility] 10/19/2019 04:45:00 AM EDT - 10/19/2019 04:45:00 AM EDT [facility] ([facility]) Attender: Octavio Brown 10/19/2019 12:00:00 AM EDT [facility] ([facility]) Outpatient Attender: AMELIA DEL ROSARIO Physical Therapy 10/17/2019 0 1:45:00 PM EDT MED[facility] ([facility] ) Outpatient Attender: Orville Iverson MD Referrer: Orville Iverson MDConsultant: Nelly Christensen MD 10/10/2019 04:06:00 PM EDT - 10/10/2019 04:16:0 0 PM EDT [facility] Outpatient<td ID="encounterTypeDescripti onID2">EXTENDED VISIT</td><td>Orville Iverson MD</td><td>[facility],</td><td>10/10/2019</td><td>9:54AM</td><td>11:34AM</td><td><content ID="encounterDiagnosisID2-0">Assessment of Current Smoker</content>, <content ID="encounterDiagnosisID2-1">Diabetes Mellitus Type 2</content>, <content ID="encounterDiagnosisID2-2">Essential Hypertension</content>, <content ID="encounterDiagnosisID2-3">Hyperlipidemia</content>, <content ID="encounterDiagnosisID2-4">Urinary Tract Infection</content>, <content ID="encounterDiagnosisID2-5">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</content></td> Attender: Orville Iverson MD Family Medicine [facility] 10/10/2019 09:54:00 AM EDT - 10/10/2019 11:34:00 AM ED T 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Urinary Tract InfectionUrinary Tract InfectionUrinary Tract Infection Urinary Tract InfectionDiabetes Mellitus Type 2Assessment of Current SmokerDiabetes Mellitus Type 2Assessment of Current SmokerDiabetes Mellitus Type 2Assessment of Current SmokerDiabetes Mellitus Type 2Assessment of Current SmokerHyperlipidemiaEssential HypertensionHyperlipidemiaEssential HypertensionHyperlipidemiaEssential HypertensionHyperlipidemiaEssential Hypertension [facility] ([facility]) Transient Arthropathy - Pelvis / Hip / F emur Transient Arthropathy - Pelvis / Hip / F emur Transient Arthropathy - Pelvis / Hip / F emur Transient Arthropathy - Pelvis / Hip / F emur Urinary Tract Infection Urinary Tract Infection Urinary Tract Infection Urinary Tract Infection Diabetes Mellitus Type 2 Assessment of Current Smoker Diabetes Mellitus Type 2 Assessment of Current Smoker Diabetes Mellitus Type 2 Assessment of Current Smoker Diabetes Mellitus Type 2 Assessment of Current Smoker Hyperlipidemia Essential Hypertension Hyperlipidemia Essential Hypertension Hyperlipidemia Essential Hypertension Hyperlipidemia Essential Hypertension Outpatient Attender: RADHA NIX NP [facility] Sergey sandra 10/05/2019 10:30:00 AM EDT - 10/05/2019 10:30:00 AM EDT [facility] Attender: RADHA NIX NP 10/05/2019 12:00:00 AM EDT [facility] ([facility]) [facility] [address] [place] [phone] 10/04/2019 12:00:00 AM EDT eCW1 ([facility]) TEMPMHCTelemed 30" Psychotherapy Attender: Octavio Brown [facility] 10/03/2019 11:30:00 AM EDT - 10/03/2019 11:30:00 AM EDT [facility] ([facility]) Outpatient Referrer: Clarisa Steward NP 10/03/2019 06:23:00 AM EDT [facility] Attender: Octavio Brown 10/03/2019 12:00:00 AM EDT [facility] ([facility]) Outpatient Attender: LANDY prieto 10/02/2019 04:40:00 PM EDT MED[facility] ([facility]) Outpatient Attender: Neetu montalvo 10/01/2019 10:35:00 AM EDT [facility] ([facility]) Outpatient Attender: Glynn Wiseman MD Main office - [facility] 09/28/2019 10:45:00 AM EDT MED[facility] ([facility]) Outpatient<td ID="encounterTypeDescripti onID3">[Patient Encounter]</td><td>Orville Iverson MD</td><td></td><td>09/26/2019</td><td>07/11/2019 1:50PM</td><td>07/11/2019 11:59PM</td><td></td> Attender: Orville Iverson MD 0 01:50:00 PM EDT - 07/11/2019 11:59:00 PM EDT [facility] ([facility]) [facility] [address] [place] [phone] 09/18/2019 12:00:00 AM EDT eCW1 ([facility] [address] [place] [phone] 09/18/2019 12:00:00 AM EDT eCW1 ([facility]) [facility] [address] [place] [phone] 09/15/2019 12:00:00 AM EDT [facility]CW1 ([facility]) Outpatient Referrer: Clarisa Steward NP 09/14/2019 06:08:00 AM EDT [facility] Outpatient Attender: RADHA NIX NP [facility] 09/13/2019 09:30:00 AM EDT - 09/13/2019 09:30:00 AM EDT [facility] ([facility]) Attender: RADHA NIX NP 09/13/2019 12:00:00 AM EDT [facility] ([facility] [address] [place] [phone] 09/04/2019 12:00:00 AM EDT eCW1 ([facility] [place] [address] [place] [phone] 09/04/2019 12:00:00 AM EDT eCW1 ([facility]) [facility] [address] [place] [phone] 08/30/2019 12:00:00 AM EDT eCW1 ([facility]) [facility] [address] [place] [phone] 08/24/2019 12:00:00 AM EDT eCW1 ([facility] Center) [facility] [address] [place] [phone] 08/23/2019 12:00:00 AM EDT eCW1 ([facility]) Outpatient Attender: AMELIA DEL ROSARIO Physical Therapy 08/17/2019 0 9:30:00 AM EDT MEDENT ([facility]) Outpatient Referrer: Clarisa Steward NP 08/04/2019 04:54:00 AM EDT [facility] [address] [place] [phone] 07/31/2019 12:00:00 AM EDT eCW1 ([facility]) [facility] [address] [place] [phone] 07/28/2019 12:00:00 AM EDT eCW1 ([facility] [address] [place] [phone] 07/27/2019 12:00:00 AM EDT eCW1 ([facility]) Outpatient<td ID="encounterTypeDescripti onID4">CLINICAL USE ONLY</td><td>Nelly Christensen MD</td><td>[facility]</td><td>07/24/2019</td><td>07/11/2019 4:16PM</td><td>07/11/2019 11:59PM</td><td></td> Attender: Nelly Christensen MD [facility] 07/24/2019 04:16:00 PM EDT - 07/11/2019 11:59:00 PM EDT [place] ([facility]) TEMPMHCTelemed 20" psychotherapy Attender: Octavio [facility] 07/24/2019 01:45:00 AM EDT - 07/24/2019 01:45:00 AM EDT Accumedic ([facility]) [facility] [address] [place] [address] 07/24/2019 12:00:00 AM EDT eCW1 ([facility]) Attender: Octavio Brown 07/24/2019 12:00:00 AM EDT Accumed[facility] ([facility]) TEMPMHCTelemed 30" Psychotherapy Attender: Octavio Brown [facility] 07/19/2019 11:30:00 AM EDT - 07/19/2019 11:30:00 AM EDT Acc[facility] ([facility]) Attender: Octavio LaBdomenic 07/19/2019 12:00:00 AM EDT [facility] ([facility]) Outpatient<td ID="encounterTypeDescripti onID5">RX UPDATE</td><td>Nelly Christensen MD</td><td>[facility]</td><td>07/18/2019</td><td>07/11/2019 10:53AM</td><td>07/11/2019 11:59PM</td><td></td> Attender: Nelly Christensen MD [facility] 07/18/2019 10:53:00 AM EDT - 07/11/2019 11:59:00 PM EDT [place] ([facility]) Outpatient Attender: RADHA NIX NP [facility] 07/12/2019 09:00:00 AM EDT - 07/12/2019 09:00:00 AM EDT [facility] ([facility]) Attender: RADHA NIX NP 07/12/2019 12:00:00 AM EDT [facility] ([facility]) Outpatient Attender: Orville Iverson MD Referrer: Orville Iverson MDConsultant: Nelly Christensen MD 07/11/2019 03:28:00 PM EDT - 07/11/2019 03:38:0 0 PM EDT [facility] Outpatient Attender: Orville Iverson MD 07/11/2019 10:00:0 0 AM EDT 0 [facility] N10 Outpatient<td ID="encounterTypeDescripti onID6">EXTENDED VISIT</td><td>Orville Iverson MD</td><td>[facility]</td><td>07/11/2019</td><td>9:39AM</td><td>10:58AM</td><td><content ID="encounterDiagnosisID6-0">Assessment of Current Smoker</content>, <content ID="encounterDiagnosisID6-1">Diabetes Mellitus Type 2</content>, <content ID="encounterDiagnosisID6-2">Essential Hypertension</content>, <content ID="encounterDiagnosisID6-3">Hyperlipidemia</content>, <content ID="encounterDiagnosisID6-4">Skin Abscess of Left Axilla</content></td> Attender: Orville Iverson MD [facility] 07/11/2019 09:39:00 AM EDT - 07/11/2019 10:58:00 AM EDT Skin Abscess of Left AxillaSkin Abscess of Left AxillaSkin Abscess of Left AxillaSkin Abscess of Left AxillaSkin Abscess of Left AxillaDiabetes Mellitus Type 2Assessment of Current SmokerDiabetes Mellitus Type 2Assessment of Current SmokerDiabetes Mellitus Type 2Assessment of Current SmokerDiabetes Mellitus Type 2Assessment of Current SmokerDiabetes Mellitus Type 2Assessment of Current SmokerHyperlipidemiaEssential HypertensionHyperlip idemiaEssential HypertensionHyperlipidemiaEssential HypertensionHyperlipidemiaEssential HypertensionHyperlipidemiaEssential Hypertension [place] ([facility]) Skin Abscess of Left Axilla Skin Abscess of Left Axilla Skin Abscess of Left Axilla Skin Abscess of Left Axilla Skin Abscess of Left Axilla Diabetes Mellitus Type 2 Assessment of Current Smoker Diabetes Mellitus Type 2 Assessment of Current Smoker Diabetes Mellitus Type 2 Assessment of Current Smoker Diabetes Mellitus Type 2 Assessment of Current Smoker Diabetes Mellitus Type 2 Assessment of Current Smoker Hyperlipidemia Essential Hypertension Hyperlipidemia Essential Hypertension Hyperlipidemia Essential Hypertension Hyperlipidemia Essential Hypertension Hyperlipidemia Essential Hypertension [facility] [address] [place] [phone] 07/11/2019 12:00:00 AM EDT eCW1 ([facility]) [facility] [address] [place] [phone] 07/11/2019 12:00:00 AM EDT eCW1 ([facility]) [facility] [address] [place] [phone] 07/10/2019 12:00:00 AM EDT eCW1 ([facility]) TEMPMHCTelemed 30" Psychotherapy Attender: Octavio Brown [facility] 07/07/2019 11:30:00 AM EDT - 07/07/2019 11:30:00 AM EDT [facility] ([facility]) Attender: Octavio Brown 07/07/2019 12:00:00 AM EDT [facility] ([facility]) Outpatient Attender: Neetu montalvo 07/03/2019 01:50:00 PM EDT [facility] Outpatient<td ID="encounterTypeDescripti onID7">RX UPDATE</td><td>Orville Iverson MD</td><td>[facility]</td><td>07/03/2019</td><td>05/30/2019 9:47AM</td><td>05/30/2019 11:59PM</td><td></td> Attender: Orville Iverson MD [facility] 07/03/2019 09:47:00 AM EDT - 05/30/2019 11:59:00 PM EST [place] ([facility]) Outpatient Attender: Bell Lugo [employer]PER[employer] Main Office 07/03/2019 09:45:00 AM EDT MEDENT ([facility] [address] [phone] 07/03/2019 12:00:00 AM EDT [facility]CW1 [facility] [address] [place] [phone] 06/28/2019 12:00:00 AM EDT eCW1 [facility] [address] [phone] 06/26/2019 12:00:00 AM EDT eCW1 ([facility]) [facility] [address] [place] [phone] 06/26/2019 12:00:00 AM EDT eCW1 ([facility]) Outpatient Attender: NURY VALLES MDAdmi tter: NURY VALLSE MDReferrer: NURY VALLES MD 06/19/2019 12:00:00 AM EST Elevated white blood cell count, unspecified [facility] Elevated white blood cell count, unspeci fied [address] [phone] 06/19/2019 12:00:00 AM EST eCW1 ([facility]) Brief Individual Psychotherapy - 30 min Attender: Octavio Myrick [facility] 06/14/2019 11:30:00 AM EST - 06/14/2019 11:30:00 AM EST [facility] ([facility]) [facility] [address] [place] [address] 06/14/2019 12:00:00 AM EST eCW1 ([facility]) Attender: Octavio LaBarge 06/14/2019 12:00:00 AM EST [facility] ([facility]) [facility] [address] [facility] [phone] 06/13/2019 12:00:00 AM EST eCW1 ([facility]) [facility] [place] [address] [facility] [phone] 06/05/2019 12:00:00 AM EST eCW1 ([facility]) Outpatient Attender: Orville Iverson MD Referrer: Orville Iverson MDConsultant: Nelly Christensen MD 05/30/2019 08:20:00 PM EST - 05/30/2019 08:30:0 0 PM EST [facility] Patient discharged. Outpatient Attender: Orville Iverson MD 05/30/2019 04:45:0 0 PM EST 0 [facility] N1 Outpatient<td ID="encounterTypeDescripti onID8">EMERGENCY ROOM FOLLOW- UP</td><td>Orville Iverson MD</td><td>[facility]</td><td>05/30/2019</td><td>3:50PM</td><td>4:47PM</td><td><content ID="encounterDiagnosisID8-0">Diabetes Mellitus Type 2</content>, <content ID="encounterDiagnosisID8-1">Essential Hypertension</content>, <content ID="encounterDiagnosisID8-2">Hyperlipidemia</content>, <content ID="encounterDiagnosisID8-3">Urinary Tract Infection</content>, <content ID="encounterDiagnosisID8-4">Assessment of Current Smoker</content>, <content ID="encounterDiagnosisID8-5">Diabetes Mellitus Type 2</content>, <content ID="encounterDiagnosisID8-6">Essential Hypertension</content>, <content ID="encounterDiagnosisID8-7">Pyelonephritis Acute Bacterial</content></td> Attender: Orville Iverson MD [facility], 05/30/2019 03:50:00 PM EST - 05/30/2019 04:47:00 PM EST Pyelonephritis Acute BacterialPyelonephr itis Acute BacterialPyelonephritis Acute BacterialPyelonephritis Acute BacterialPyelonephritis Acute BacterialPyelonephritis Acute BacterialPyelonephritis Acute BacterialUrinary Tract InfectionUrinary Tract InfectionUrinary Tract InfectionUrinary Tract InfectionUrinary Tract InfectionUrinary Tract InfectionUrinary Tract InfectionDiabetes Mellitus Type 2Assessment of Current SmokerDiabetes Mellitus Type 2Diabetes Mellitus Type 2 Assessment of Current SmokerDiabetes Mellitus Type 2Diabetes Mellitus Type 2Assessment of Current SmokerDiabetes Mellitus Type 2Diabetes Mellitus Type 2Assessment of Current SmokerDiabetes Mellitus Type 2Diabetes Mellitus Type 2 Assessment of Current SmokerDiabetes Mellitus Type 2Diabetes Mellitus Type 2Assessment of Current SmokerDiabetes Mellitus Type 2Diabetes Mellitus Type 2Assessment of Current SmokerDiabetes Mellitus Type 2Essential HypertensionHyperlipidemiaEssential HypertensionEssential HypertensionHyperlipidemiaEssential HypertensionEssential HypertensionHyperlipidemiaEssential HypertensionEssential HypertensionHyperlipidemiaEssential HypertensionEssential HypertensionHyperlipidemiaEssential HypertensionEssential HypertensionHyperlipidemiaEssential HypertensionEssential HypertensionHyperlipidemiaEssential Hypertension [place] ([facility]) Pyelonephritis Acute Bacterial Pyelonephritis Acute Bacterial Pyelonephritis Acute Bacterial Pyelonephritis Acute Bacterial Pyelonephritis Acute Bacterial Pyelonephritis Acute Bacterial Pyelonephritis Acute Bacterial Urinary Tract Infection Urinary Tract Infection Urinary Tract Infection Urinary Tract Infection Urinary Tract Infection Urinary Tract Infection Urinary Tract Infection Diabetes Mellitus Type 2 Assessment of Current Smoker Diabetes Mellitus Type 2 Diabetes Mellitus Type 2 Assessment of Current Smoker Diabetes Mellitus Type 2 Diabetes Mellitus Type 2 Assessment of Current Smoker Diabetes Mellitus Type 2 Diabetes Mellitus Type 2 Assessment of Current Smoker Diabetes Mellitus Type 2 Diabetes Mellitus Type 2 Assessment of Current Smoker Diabetes Mellitus Type 2 Diabetes Mellitus Type 2 Assessment of Current Smoker Diabetes Mellitus Type 2 Diabetes Mellitus Type 2 Assessment of Current Smoker Diabetes Mellitus Type 2 Essential Hypertension Hyperlipidemia Essential Hypertension Essential Hypertension Hyperlipidemia Essential Hypertension Essential Hypertension Hyperlipidemia Essential Hypertension Essential Hypertension Hyperlipidemia Essential Hypertension Essential Hypertension Hyperlipidemia Essential Hypertension Essential Hypertension Hyperlipidemia Essential Hypertension Essential Hypertension Hyperlipidemia Essential Hypertension Outpatient<td ID="encounterTypeDescripti onID9">RX UPDATE</td><td>Orville Iverson MD</td><td>[facility],</td><td>05/29/2019</td><td>04/10/2019 12:00PM</td><td>04/10/2019 11:59PM</td><td></td> Attender: Orville Iverson MD [facility], 05/29/2019 12:00:00 PM EST - 04/10/2019 11:59:00 PM EST [place] ([facility]) Outpatient Referrer: Clarisa Steward NP 05/25/2019 09:26:00 PM EST [facility] [place] [address] 05/24/2019 12:00:00 AM EST eCW1 ([facility]) [address] [phone] 05/24/2019 12:00:00 AM EST eCW1 ([facility] [address] [address] 05/24/2019 12:00:00 AM EST eCW1 ([facility]) [address] [phone] 05/24/2019 12:00:00 AM EST eCW1 ([facility]) Outpatient Referrer: Clarisa Steward NP 05/19/2019 09:27:00 AM EST [facility] Brief Individual Psychotherapy - 30 min Attender: Octavio sheth [facility] 05/17/2019 10:30:00 AM EST - 05/17/2019 10:30:00 AM EST [facility] ([facility]) [facility] [address] [place] [phone] 05/17/2019 12:00:00 AM EST eCW1 ([facility]) Attender: Octavio LaBarge 05/17/2019 12:00:00 AM EST [facility] ([facility]) [facility] [place] [address] [facility] [address] 05/17/2019 12:00:00 AM EST eCW1 ([facility]) Outpatient Referrer: Clarisa Steward NP 05/15/2019 01:31:00 PM EST [facility] [address] [place] [address] 05/10/2019 12:00:00 AM EST eCW1 ([facility]) Outpatient Attender: AMELIA DEL ROSARIO Physical Therapy 05/02/2019 0 7:30:00 AM EST MEDENT ([facility]) Brief Individual Psychotherapy - 30 min Attender: [facility] 05/02/2019 02:15:00 AM EST - 05/02/2019 02:15:00 AM EST [facility] ([facility]) Attender: [facility] 05/02/2019 12:00:00 AM EST [facility] ([facility]) Outpatient Attender: ADEEL PONCE [facility] Office 04/19 01:00:00 PM EST MEDENT ([facility] Brief Individual Psychotherapy - 30 min Attender: Octavio [facility] 04/17/2019 03:15:00 AM EST - 04/17/2019 03:15:00 AM EST [facility] ([facility]) [facility] 04/17/[facility] 12:00:00 AM EST [facility] ([facility]) Outpatient Attender: RADHA NIX NP [facility] 04/13/2019 09:00:00 AM EST - 04/13/2019 09:00:00 AM EST [facility] ([facility]) Attender: RADHA NIX NP 04/13/2019 12:00:00 AM EST [facility] ([facility]) Outpatient<td ID="encounterTypeDescripti onID10">EXTENDED VISIT</td><td>Orville Iverson MD</td><td>[facility]</td><td>04/10/2019</td><td>10:45AM</td><td>11:25AM</td><td><content ID="[id number]">Diabetes Mellitus Type 2</content>, <content ID="[id number]">Essential Hypertension</content>, <content ID="[id number]">Hyperlipidemia</content></td> Attender: Orville Iverson MD [facility] 04/10/2019 10:45:00 AM EST - 04/10/2019 11:25:00 AM EST Diabetes Mellitus Type 2Diabetes Mellitu s Type 2Diabetes Mellitus Type 2Diabetes Mellitus Type 2Diabetes Mellitus Type 2Diabetes Mellitus Type 2Diabetes Mellitus Type 2Diabetes Mellitus Type 2HyperlipidemiaEssential HypertensionHyperlipidemiaEssential HypertensionHyperlipidemiaEssential HypertensionHyperlipidemiaEssential HypertensionHyperlipidemiaEssential HypertensionHyperlipidemiaEssential HypertensionHyperlipidemiaEssential HypertensionHyperlipidemiaEssential Hypertension [place] ([facility]) Diabetes Mellitus Type 2 Diabetes Mellitus Type 2 Diabetes Mellitus Type 2 Diabetes Mellitus Type 2 Diabetes Mellitus Type 2 Diabetes Mellitus Type 2 Diabetes Mellitus Type 2 Diabetes Mellitus Type 2 Hyperlipidemia Essential Hypertension Hyperlipidemia Essential Hypertension Hyperlipidemia Essential Hypertension Hyperlipidemia Essential Hypertension Hyperlipidemia Essential Hypertension Hyperlipidemia Essential Hypertension Hyperlipidemia Essential Hypertension Hyperlipidemia Essential Hypertension Brief Individual Psychotherapy - 30 min Attender: Octavio sheth [facility] 04/05/2019 09:45:00 AM EST - 04/05/2019 09:45:00 AM EST [facility] ([facility] Attender: Octavio Brown 04/05/2019 12:00:00 AM EST [facility] ([facility]) [facility] [address] [place] [phone] 03/27/2019 12:00:00 AM EST eCW1 ([facility]) Brief Individual Psychotherapy - 30 min Attender: Octavio sheth [facility] 03/22/2019 09:45:00 AM EST - 03/22/2019 09:45:00 AM EST [facility] ([facility]) [facility] [address] [place] [phone] 03/22/2019 12:00:00 AM EST eCW1 ([facility]) Attender: Octavio LaBarge 03/22/2019 12:00:00 AM EST [facility] ([facility]) Outpatient Attender: BABITA DEL ROSARIO 03/18/2019 03:56 :44 PM EST [facility] Outpatient Attender: BABITA DEL ROSARIO 03/15/2019 08:54 :40 PM EST [facility] Outpatient Attender: BABITA DEL ROSARIO 03/15/2019 08:46 :33 PM EST [facility] Outpatient Attender: BABITA DEL ROSARIO 03/15/2019 08:40 :02 PM EST [facility] Outpatient Attender: BABITA DEL ROSARIO 03/15/2019 08:16 :52 PM EST [facility] Outpatient Attender: BABITA DEL ROSARIO 03/15/2019 08:16 :52 PM EST [facility] Outpatient Attender: BABITA DEL ROSARIO 03/15/2019 08:16 :52 PM EST [facility] Outpatient Attender: BABITA DEL ROSARIO 03/15/2019 08:16 :52 PM EST [facility] Outpatient Attender: BABITA DEL ROSARIO 03/15/2019 08:16 :52 PM EST [facility] Outpatient Attender: BABITA DEL ROSARIO 03/15/2019 08:16 :52 PM EST [facility] Outpatient Attender: BABITA DLE ROSARIO 03/15/2019 07:57 :09 PM EST [facility] Outpatient Attender: BABITA DEL ROSARIO 03/15/2019 07:55 :09 PM EST [facility] [address] [place] [phone] 03/15/2019 12:00:00 AM EST eCW1 ([facility]) [facility] [address] [place] [address] 03/13/2019 12:00:00 AM EST eCW1 ([facility]) [facility] [place] [address] [facility] [address] 03/13/2019 12:00:00 AM EST eCW1 ([facility]) Outpatient Referrer: Clarisa Steward NP 03/10/2019 09:23:00 PM EST [facility] [address] [place] [address] 03/08/2019 12:00:00 AM EST eCW1 ([facility]) Outpatient Referrer: Clarisa Steward NP 03/07/2019 08:07:00 PM EST [facility] [address] [place] [address] 03/07/2019 12:00:00 AM EST eCW1 ([facility]) Brief Individual Psychotherapy - 30 min Attender: Octavio sheth [facility] 03/06/2019 09:00:00 AM EST - 03/06/2019 09:00:00 AM EST [facility] ([facility]) Attender: Octavio Brown 03/06/2019 12:00:00 AM EST [facility] ([facility]) Outpatient Attender: RADHA NIX NP [facility] 03/02/2019 11:00:00 AM EST - 03/02/2019 11:00:00 AM EST [facility] ([facility]) Outpatient Attender: AMELIA DEL ROSARIO Physical Therapy 03/02/2019 0 8:30:00 AM EST MEDENT ([facility]) Attender: RADHA NIX NP 03/02/2019 12:00:00 AM EST [facility] ([facility]) Functional Status Immunizations Vaccine Date Status Description Data Source(s) TB Skin test is not vaccine. 10/02/2019 05:03:00 PM EDT completed MEDENT ([facility]) Medications Medication Brand Name Start Date Product Form Dose Route Admi nistrative Instructions Pharmacy Instructions Status Indications Reaction Description Data Source(s) 5 % 04/23/2020 12:00:00 AM EST adhesive patch,medicate d 30 APPLY 1 PATCH TO AFFECTED AREA ON BACK OR LEG EVERY 12 HOURS NEEDED APPLY 1 PATCH TO AFFECTED AREA ON BACK OR LEG EVERY 12 HOURS NEEDED SOLD: 04/26/2020 [facility] Lidocaine Lidocaine 04/23/2020 12:00:00 AM EST TOPICAL active MEDENT ([facility]) 33 gauge 04/22/2020 12:00:00 AM EST misc 100 TEST THREE TIMES A DAY TEST THREE TIMES A DAY SOLD: 04/26/2020 [facility] 21 mg/24 hr 04/17/2020 12:00:00 AM EST patch 24 hour 28 APPLY 1 PATCH TO SKIN ONCE A DAY IN THE MORNING & REMOVE AT BEDTIME APPLY 1 PATCH TO SKIN ONCE A DAY IN THE MORNING & REMOVE AT BEDTIME SOLD: 04/18/2020 [facility] 90 mcg/actuation 04/16/2020 12:00:00 AM EST HFA aerosol inha ler 18 INHALE 1- 2 PUFFS BY MOUTH EVERY 4 TO 6 HOURS NEEDED FOR SHORTNESS OF BREATH INHALE 1-2 PUFFS BY MOUTH EVERY 4 TO 6 HOURS NEEDED FOR SHORTNESS OF BREATH SOLD: 04/18/2020 [facility] 20 mg 04/15/2020 12:00:00 AM EST capsule,delayed release (DR/EC) 60 TAKE ONE CAPSULE BY MOUTH TWICE A DAY TAKE ONE CAPSULE BY MOUTH TWICE A DAY SOLD: 04/18/2020 [facility] 20 mg 04/15/2020 12:00:00 AM EST tablet 60 TAKE ONE TABLET BY MOUTH TWICE A DAY NEEDED TAKE ONE TABLET BY MOUTH TWICE A DAY NEEDED SOLD: 04/18/2020 [facility] 1 gram 04/15/2020 12:00:00 AM EST tablet 120 TAKE ONE TABLET BY MOUTH FOUR TIMES A DAY (AT MEALS AND BEDTIME) TAKE ONE TABLET BY MOUTH FOUR TIMES A DA Y (AT MEALS AND BEDTIME) SOLD: 04/18/2020 [facility] 100 mg 04/10/2020 12:00:00 AM EST capsule 30 TAKE ONE CAPSULE BY MOUTH EVERY DAY NEEDED FOR UTI TAKE ONE CAPSULE BY MOUTH EVERY DAY NEEDED FOR UTI SOLD: 04/10/2020 [facility] NITROFURANTOIN, MACROCRYSTALS 100 MG Oral Capsule Nitrofuran toin Macrocrystal 04/10/2020 12:00:00 AM EST ORAL active MEDENT ([facility]) 0.25 mg 04/08/2020 12:00:00 AM EST tablet 60 TAKE ONE TABLET BY MOUTH TWICE A DAY MAXIMUM DAILY DOSE = TWO TABLETS TAKE ONE TABLET BY MOUTH TWICE A DAY MAXIMUM DAILY DOSE = TWO TABLETS SOLD: 04/10/2020 [facility] 5 % 03/29/2020 12:00:00 AM EST adhesive patch,medicate d 30 APPLY 1 PATCH TOPICALLY AND CHANGE DAILY 12HRS ON 12HRS OFF APPLY 1 PATCH TOPICALLY AND CHANGE DAILY 12HRS ON 12HRS OFF SOLD: 03/29/2020 [facility] Aluminum Hydroxide 160 MG / magnesium carbonate 105 MG Chewable Tablet Gaviscon Extra Strength 03/19/2020 12:00:00 AM EST ORAL complete d MEDENT ([facility]) 10 mg 03/19/2020 12:00:00 AM EST tablet 20 TAKE ONE TABLET BY MOUTH EVERY 6 HOURS WITH FOOD OR MILK NEEDED TAKE ONE TABLET BY MOUTH EVERY 6 HOURS W ITH FOOD OR MILK NEEDED SOLD: 03/19/2020 [facility] Ketorolac Tromethamine 10 MG Oral Tablet Ketorolac Trometham ine 10 MG 03/19/2020 12:00:00 AM EST active Ketorola c Tromethamine 10 MG eCW1 ([facility]) Ketorolac Tromethamine 10 MG Oral Tablet Ketorolac Trometham ine 10 MG 03/19/2020 12:00:00 AM EST active Ketorola c Tromethamine 10 MG eCW1 ([facility]) Ketorolac Tromethamine 10 MG Oral Tablet Ketorolac Trometham ine 10 MG 03/19/2020 12:00:00 AM EST active Ketorola c Tromethamine 10 MG eCW1 ([facility]) BLOOD SUGAR DIAGNOSTIC 03/15/2020 12:00:00 AM EST strip 100 TEST THREE TIMES A DAY TEST THREE TIMES A DAY SOLD: 04/26/2020 [facility] BLOOD SUGAR DIAGNOSTIC 03/15/2020 12:00:00 AM EST strip 100 TEST THREE TIMES A DAY TEST THREE TIMES A DAY SOLD: 03/17/2020 [facility] 60 mg 03/06/2020 12:00:00 AM EST capsule,delayed release (DR/EC) 30 TAKE ONE CAPSULE BY MOUTH EVERY EVENING TAKE ONE CAPSULE BY MOUTH EVERY EVENING SOLD: 03/07/2020 [facility] buspirone hydrochloride 15 MG Oral Tablet BUSPIRONE HCL 03/06/2020 12:00:00 AM EST tablet 60 TAKE ONE TABLET BY MOUTH TWI CE A DAY TAKE ONE TABLET BY MOUTH TWICE A DAY SOLD: 03/07/2020 [facility] buspirone hydrochloride 15 MG Oral Tablet BUSPIRONE HCL 03/06/2020 12:00:00 AM EST tablet 60 TAKE ONE TABLET BY MOUTH TWI CE A DAY TAKE ONE TABLET BY MOUTH TWICE A DAY SOLD: 04/07/2020 [facility] 60 mg 03/06/2020 12:00:00 AM EST capsule,delayed release (DR/EC) 30 TAKE ONE CAPSULE BY MOUTH EVERY EVENING TAKE ONE CAPSULE BY MOUTH EVERY EVENING SOLD: 04/07/2020 [facility] buspirone hydrochloride 15 MG Oral Tablet buspirone 2019 12:00:00 AM EST 15 mg by mouth completed [id number] buspirone by mouth C382 88 03/06/2020 06/04/2020 twice a day 30 15 mg tablet 36577 [id number] Li mckinleya SilverioQueen [id number] [facility] buspirone hydrochloride 15 MG Oral Tablet buspirone 2019 12:00:00 AM EST 15 mg by mouth completed [id number] buspirone by mouth C382 88 03/06/2020 06/04/2020 twice a day 30 15 mg tablet [id number] Li nda MacQueen [id number] [facility] ([facility]) buspirone hydrochloride 15 MG Oral Tablet buspirone 2019 12:00:00 AM EST 15 mg by mouth completed [id number] buspirone by mouth C382 88 03/06/2020 06/04/2020 twice a day 30 15 mg tablet 92403 [id number] Li nda MacQueen [id number] [facility]) 30 mg 03/06/2020 12:00:00 AM EST capsule,delayed release (DR/EC) 30 TAKE ONE CAPSULE BY MOUTH EVERY EVENING TAKE ONE CAPSULE BY MOUTH EVERY EVENING SOLD: 04/07/2020 [facility] 30 mg 03/06/2020 12:00:00 AM EST capsule,delayed release (/EC) 30 TAKE ONE CAPSULE BY MOUTH EVERY EVENING TAKE ONE CAPSULE BY MOUTH EVERY EVENING SOLD: 03/07/2020 [facility] 750 mg 02/15/2020 12:00:00 AM EDT tablet 90 TAKE ONE TABLET BY MOUTH EVERY 8 HOURS NEEDED TAKE ONE TABLET BY MOUTH EVERY 8 HOURS NEEDED SOLD: 04/26/2020 [facility] 750 mg 02/15/2020 12:00:00 AM EDT tablet 90 TAKE ONE TABLET BY MOUTH EVERY 8 HOURS NEEDED TAKE ONE TABLET BY MOUTH EVERY 8 HOURS NEEDED SOLD: 03/29/2020 [facility] gabapentin 800 MG Oral Tablet GABAPENTIN 02/15/2020 12:00:00 AM EDT ta blet 90 TAKE 1 TABLET BY MOUTH 3 TIMES A DAY FOR PAIN MAX DAILY DOSE = 3 TABLETS TAKE 1 TABLET BY MOUTH 3 TIMES A DAY FOR PAIN MAX DAILY DOSE = 3 TABLETS SOLD: 03/29/2020 [facility] gabapentin 800 MG Oral Tablet GABAPENTIN 02/15/2020 12:00:00 AM EDT ta blet 90 TAKE 1 TABLET BY MOUTH 3 TIMES A DAY FOR PAIN MAX DAILY DOSE = 3 TABLETS TAKE 1 TABLET BY MOUTH 3 TIMES A DAY FOR PAIN MAX DAILY DOSE = 3 TABLETS SOLD: 04/26/2020 [facility] 750 mg 02/15/2020 12:00:00 AM EDT tablet 90 TAKE ONE TABLET BY MOUTH EVERY 8 HOURS NEEDED TAKE ONE TABLET BY MOUTH EVERY 8 HOURS NEEDED SOLD: 02/23/2020 [facility] gabapentin 800 MG Oral Tablet GABAPENTIN 02/15/2020 12:00:00 AM EDT ta blet 90 TAKE 1 TABLET BY MOUTH 3 TIMES A DAY FOR PAIN MAX DAILY DOSE = 3 TABLETS TAKE 1 TABLET BY MOUTH 3 TIMES A DAY FOR PAIN MAX DAILY DOSE = 3 TABLETS SOLD: 02/23/2020 [facility] 200 mg 02/14/2020 12:00:00 AM EDT capsule 90 TAKE ONE CAPSULE BY MOUTH EVERY 8 HOURS MAXIMUM DAILY DOSE = 3 CAPSULES TAKE ONE CAPSULE BY MOUTH EVERY 8 HOURS MAXIMUM DAILY DOSE = 3 CAPSULES SOLD: 04/21/2020 [facility] 200 mg 02/14/2020 12:00:00 AM EDT capsule 90 TAKE ONE CAPSULE BY MOUTH EVERY 8 HOURS MAXIMUM DAILY DOSE = 3 CAPSULES TAKE ONE CAPSULE BY MOUTH EVERY 8 HOURS MAXIMUM DAILY DOSE = 3 CAPSULES SOLD: 02/14/2020 [facility] 200 mg 02/14/2020 12:00:00 AM EDT capsule 90 TAKE ONE CAPSULE BY MOUTH EVERY 8 HOURS MAXIMUM DAILY DOSE = 3 CAPSULES TAKE ONE CAPSULE BY MOUTH EVERY 8 HOURS MAXIMUM DAILY DOSE = 3 CAPSULES SOLD: 03/17/2020 [facility] 10 mg 02/13/2020 12:00:00 AM EDT tablet extended release 24hr 30 TAKE ONE TABLET BY MOUTH EVERY DAY TAKE ONE TABLET BY MOUTH EVERY DAY SOLD: 04/14/2020 [facility] 10 mg 02/13/2020 12:00:00 AM EDT tablet extended release 24hr 30 TAKE ONE TABLET BY MOUTH EVERY DAY TAKE ONE TABLET BY MOUTH EVERY DAY SOLD: 03/17/2020 [facility] 10 mg 02/13/2020 12:00:00 AM EDT tablet extended release 24hr 30 TAKE ONE TABLET BY MOUTH EVERY DAY TAKE ONE TABLET BY MOUTH EVERY DAY SOLD: 02/14/2020 [facility] Metformin hydrochloride 1000 MG Oral Tablet 1,000 mg METFORM IN HCL 01/29/2020 12:00:00 AM EDT tablet 60 TAKE ONE TABLET BY MOUTH TWICE A DAY TAKE ONE TABLET BY MOUTH TWICE A DAY SOLD: 04/04/2020 [facility] montelukast 10 MG Oral Tablet MONTELUKAST SODIUM 01/29/2020 12:0 0:00 AM EDT tablet 30 TAKE ONE TABLET BY MOUTH EVERY D AY TAKE ONE TABLET BY MOUTH EVERY DAY SOLD: 02/06/2020 [facility] Metformin hydrochloride 1000 MG Oral Tablet 1,000 mg METFORM IN HCL 01/29/2020 12:00:00 AM EDT tablet 60 TAKE ONE TABLET BY MOUTH TWICE A DAY TAKE ONE TABLET BY MOUTH TWICE A DAY SOLD: 03/05/2020 [facility] Metformin hydrochloride 1000 MG Oral Tablet 1,000 mg METFORM IN HCL 01/29/2020 12:00:00 AM EDT tablet 60 TAKE ONE TABLET BY MOUTH TWICE A DAY TAKE ONE TABLET BY MOUTH TWICE A DAY SOLD: 02/06/2020 [facility] montelukast 10 MG Oral Tablet MONTELUKAST SODIUM 01/29/2020 12:0 0:00 AM EDT tablet 30 TAKE ONE TABLET BY MOUTH EVERY D AY TAKE ONE TABLET BY MOUTH EVERY DAY SOLD: 04/04/2020 [facility] montelukast 10 MG Oral Tablet MONTELUKAST SODIUM 01/29/2020 12:0 0:00 AM EDT tablet 30 TAKE ONE TABLET BY MOUTH EVERY D AY TAKE ONE TABLET BY MOUTH EVERY DAY SOLD: 03/05/2020 [facility] Spironolactone 50 MG Oral Tablet Spironolactone 01/25/2020 12:00:00 A M EDT ORAL active MEDENT ([facility] ) 50 mg 01/25/2020 12:00:00 AM EDT tablet 60 TAKE ONE TABLET BY MOUTH EVERY DAY TAKE ONE TABLET BY MOUTH EVERY DAY SOLD: 01/26/2020 [facility] 50 mg 01/25/2020 12:00:00 AM EDT tablet 60 TAKE ONE TABLET BY MOUTH EVERY DAY TAKE ONE TABLET BY MOUTH EVERY DAY SOLD: 03/29/2020 [facility] Hydrochlorothiazide 50 MG / Spironolactone 50 MG Oral Tablet [Aldactazide] Aldactazide 01/24/2020 12:00:00 AM EDT ORAL active MEDENT ([facility], ) Niacin Flush Free 01/24/2020 12:00:00 AM EDT ORAL active MEDENT ([facility], ) 300-60 mg 01/21/2020 12:00:00 AM EDT tablet 75 TAKE 1 TABLET BY MOUTH EVERY 6 HOURS NEEDED MAX DAILY DOSE = 4 TABLETS (75 TABLETS TO LAST 30 DAYS) TAKE 1 TABLET BY MOUTH EVERY 6 HOURS NEEDED MAX DAILY DOSE = 4 TABLETS (75 TABLETS TO LAST 30 DAYS) SOLD: 01/21/2020 [facility] Acetaminophen 300 MG / Codeine Phosphate 60 MG Oral Tablet Acetaminophen-Codeine #4 300-60 MG Acetaminophen-Codeine #4 300-60 MG 01/17/2020 12:00:00 AM EDT 1.0 {tablet_as_needed} active Acetamino phen-Codeine #4 300-60 MG eCW1 ([facility]) Acetaminophen 300 MG / Codeine Phosphate 60 MG Oral Tablet Acetaminophen-Codeine #4 300-60 MG Acetaminophen-Codeine #4 300-60 MG 01/17/2020 12:00:00 AM EDT 1.0 {tablet_as_needed} active Acetamino phen-Codeine #4 300-60 MG eCW1 ([facility]) Acetaminophen 300 MG / Codeine Phosphate 60 MG Oral Tablet Acetaminophen-Codeine #4 300-60 MG Acetaminophen-Codeine #4 300-60 MG 01/17/2020 12:00:00 AM EDT 1.0 {tablet_as_needed} active Acetamino phen-Codeine #4 300-60 MG eCW1 ([facility]) Nystatin 100 UNT/MG Topical Powder 100,000 unit/gram [place]STAT[place] N 01/10/2020 12:00:00 AM EDT powder 15 APPLY TO AFFECTE D AREA(S) UNDER BREAST AND GROIN TWO TIMES A DAY APPLY TO AFFECTED AREA(S) UNDER BREAST AND GROIN TWO T IMES A DAY SOLD: 01/16/2020 [facility] 50 mcg/actuation 01/10/2020 12:00:00 AM EDT spray,suspension 16 SPRAY 2 SPRAYS IN EACH NOSTRIL ONCE DAILY DIRECTED SPRAY 2 SPRAYS IN EACH NOSTRIL ONCE DAILY DIRECTED SOLD: 01/16/2020 [facility] 50 mcg/actuation 01/10/2020 12:00:00 AM EDT spray,suspension 16 SPRAY 2 SPRAYS IN EACH NOSTRIL ONCE DAILY DIRECTED SPRAY 2 SPRAYS IN EACH NOSTRIL ONCE DAILY DIRECTED SOLD: 03/17/2020 [facility] 100 mg 01/10/2020 12:00:00 AM EDT capsule 90 TAKE ONE CAPSULE BY MOUTH THREE TIMES A DAY TAKE ONE CAPSULE BY MOUTH THREE TIMES A DAY SOLD: 03/17/2020 [facility] 50 mg 01/10/2020 12:00:00 AM EDT tablet 9 TAKE 1 TAB.BY MOUTH ONSET OF HEADACHE REPEAT ONE DOSE AFTER 2 HOURS IF NEEDED TAKE 1 TAB.BY MOUTH ONSET OF HEADACHE REPEAT ONE DOSE AFTER 2 HOURS IF NEEDED SOLD: 04/14/2020 [facility] 90 mcg/actuation 01/10/2020 12:00:00 AM EDT HFA aerosol inha ler 18 INHALE TWO PUFFS BY MOUTH FOUR TIMES A DAY NEEDED INHALE TWO PUFFS BY MOUTH FOUR TIMES A DAY NEEDED SOLD: 01/16/2020 [facility] 50 mcg/actuation 01/10/2020 12:00:00 AM EDT spray,suspension 16 SPRAY 2 SPRAYS IN EACH NOSTRIL ONCE DAILY DIRECTED SPRAY 2 SPRAYS IN EACH NOSTRIL ONCE DAILY DIRECTED SOLD: 02/14/2020 [facility] 25 mg 01/10/2020 12:00:00 AM EDT tablet 30 TAKE ONE TABLET BY MOUTH EVERY DAY TAKE ONE TABLET BY MOUTH EVERY DAY SOLD: 02/14/2020 [facility] Nystatin 100 UNT/MG Topical Powder 100,000 unit/gram NYSTATI N 01/10/2020 12:00:00 AM EDT powder 15 APPLY TO AFFECTE D AREA(S) UNDER BREAST AND GROIN TWO TIMES A DAY APPLY TO AFFECTED AREA(S) UNDER BREAST AND GROIN TWO T IMES A DAY SOLD: 03/05/2020 [facility] Losartan Potassium 25 MG Oral Tablet LOSARTAN POTASSIUM 12:00:00 AM EDT tablet 30 TAKE ONE TABLET BY MOUTH TAKE ONE TABLET BY MOUTH EVERY DAY SOLD: 01/16/2020 [facility] 50 mg 01/10/2020 12:00:00 AM EDT tablet 9 TAKE 1 TAB.BY MOUTH ONSET OF HEADACHE REPEAT ONE DOSE AFTER 2 HOURS IF NEEDED TAKE 1 TAB.BY MOUTH ONSET OF HEADACHE REPEAT ONE DOSE AFTER 2 HOURS IF NEEDED SOLD: 02/14/2020 [facility] 25 mg 01/10/2020 12:00:00 AM EDT tablet 30 TAKE ONE TABLET BY MOUTH EVERY DAY TAKE ONE TABLET BY MOUTH EVERY DAY SOLD: 03/17/2020 [facility] 100 mg 01/10/2020 12:00:00 AM EDT capsule 90 TAKE ONE CAPSULE BY MOUTH THREE TIMES A DAY TAKE ONE CAPSULE BY MOUTH THREE TIMES A DAY SOLD: 01/16/2020 [facility] Nystatin 100 UNT/MG Topical Powder 100,000 unit/gram NYSTATI N 01/10/2020 12:00:00 AM EDT powder 15 APPLY TO AFFECTE D AREA(S) UNDER BREAST AND GROIN TWO TIMES A DAY APPLY TO AFFECTED AREA(S) UNDER BREAST AND GROIN TWO T IMES A DAY SOLD: 02/06/2020 [facility] 25 mg 01/10/2020 12:00:00 AM EDT tablet 30 TAKE ONE TABLET BY MOUTH EVERY DAY TAKE ONE TABLET BY MOUTH EVERY DAY SOLD: 01/16/2020 [facility] 50 mg 01/10/2020 12:00:00 AM EDT tablet 9 TAKE 1 TAB.BY MOUTH ONSET OF HEADACHE REPEAT ONE DOSE AFTER 2 HOURS IF NEEDED TAKE 1 TAB.BY MOUTH ONSET OF HEADACHE REPEAT ONE DOSE AFTER 2 HOURS IF NEEDED SOLD: 03/17/2020 [facility] 25 mg 01/10/2020 12:00:00 AM EDT tablet 30 TAKE ONE TABLET BY MOUTH EVERY DAY TAKE ONE TABLET BY MOUTH EVERY DAY SOLD: 02/14/2020 [facility] 10 mg 01/10/2020 12:00:00 AM EDT tablet 30 TAKE ONE TABLET BY MOUTH EVERY DAY TAKE ONE TABLET BY MOUTH EVERY DAY SOLD: 02/14/2020 [facility] 10 mg 01/10/2020 12:00:00 AM EDT tablet 30 TAKE ONE TABLET BY MOUTH EVERY DAY TAKE ONE TABLET BY MOUTH EVERY DAY SOLD: 03/17/2020 [facility] 90 mcg/actuation 01/10/2020 12:00:00 AM EDT HFA aerosol inha ler 18 INHALE TWO PUFFS BY MOUTH FOUR TIMES A DAY NEEDED INHALE TWO PUFFS BY MOUTH FOUR TIMES A DAY NEEDED SOLD: 03/12/2020 [facility] 10 mg 01/10/2020 12:00:00 AM EDT tablet 30 TAKE ONE TABLET BY MOUTH EVERY DAY TAKE ONE TABLET BY MOUTH EVERY DAY SOLD: 01/16/2020 [facility] 50 mg 01/10/2020 12:00:00 AM EDT tablet 9 TAKE 1 TAB.BY MOUTH ONSET OF HEADACHE REPEAT ONE DOSE AFTER 2 HOURS IF NEEDED TAKE 1 TAB.BY MOUTH ONSET OF HEADACHE REPEAT ONE DOSE AFTER 2 HOURS IF NEEDED SOLD: 01/16/2020 [facility] 90 mcg/actuation 01/10/2020 12:00:00 AM EDT HFA aerosol inha ler 18 INHALE TWO PUFFS BY MOUTH FOUR TIMES A DAY NEEDED INHALE TWO PUFFS BY MOUTH FOUR TIMES A DAY NEEDED SOLD: 02/14/2020 [facility] 100 mg 01/10/2020 12:00:00 AM EDT capsule 90 TAKE ONE CAPSULE BY MOUTH THREE TIMES A DAY TAKE ONE CAPSULE BY MOUTH THREE TIMES A DAY SOLD: 02/14/2020 [facility] cetirizine hydrochloride 10 MG Oral Tablet Cetirizine HCl 10 MG Oral Tablet Cetirizine HCl 10 MG Oral Tablet 01/09/2020 12:00:00 AM EDT active cetirizine hydrochloride 10 MG Oral Tablet [place] ([facility]) Sumatriptan 50 MG Oral Tablet [Imitrex] Imitrex 50 MG Oral Tablet Imitrex 50 MG Oral Tablet 01/09/2020 12:00:00 AM EDT active sumatriptan 50 MG Oral Tablet [Imitrex] [place] ([facility]) Docusate Sodium 100 MG Oral Capsule [Dul colax Stool Softener] Dulcolax Stool Softener 100 MG Oral Capsule Dulcolax Stool Softener 100 MG Oral Capsule 01/09/2020 12:00:00 AM EDT active docusate sodium 100 MG Oral Capsule [Dulcolax Stool Softener] [facility]) Fluticasone Propionate 50 MCG/ACT Nasal Suspension Flu ticasone Propionate 50 MCG/ACT Nasal Suspension 01/09/2020 12:00:00 AM EDT active fluticasone propionate 0.05 MG/ACTUAT Metered Dose Nasal [facility]) montelukast 10 MG Oral Tablet [Singulair] Singulair 10 MG Oral Tablet Singulair 10 MG Oral Tablet 01/09/2020 12:00:00 AM EDT active montelukast 10 MG Oral Tablet [Singulair] [facility]) Furosemide 40 MG Oral Tablet [Lasix] Lasix 40 MG Oral Tablet Lasix 40 MG Oral Tablet 01/09/2020 12:00:00 AM EDT active furosemide 40 MG Oral Tablet [Lasix] [facility]) Losartan Potassium 25 MG Oral Tablet Losartan Potassium 25 M G Oral Tablet 01/09/2020 12:00:00 AM EDT active losartan potassium 25 MG Oral Tablet [facility]) 200 ACTUAT Albuterol 0.09 MG/ACTUAT [place] red Dose Inhaler [Ventolin] Ventolin HFA 108 (90 Base) MCG/ACT Inhalation Aerosol Solution Ventolin HFA 108 (90 Base) MCG/ACT Inhalation Aerosol Solution 01/09/2020 12:00:00 AM EDT 18 active [id number] 200 ACTUAT albuterol 0.09 MG/ACTUAT Metered Dose Inhaler [Ventolin] [facility]) OneTouch Delica Lancets 33G Miscellaneous OneTouch Del ica Lancets 33G Miscellaneous 01/09/2020 12:00:00 AM EDT acti ve OneTouch Delica Lancets 33G [facility]) OneTouch Ultra In Vitro Strip OneTouch Ultra In Vitro Strip 01/09/2020 12:00:00 AM EDT active OneTouch Ultra [place] ([facility]) Nystatin 100 UNT/MG Topical Powder Nystatin [id number] UNI T/GM External Powder Nystatin [id number] UNIT/GM External Powder 01/09/2020 12:00:00 AM EDT active nystatin 100 UNT/MG Topical Powd er [place] ([facility]) Spironolactone 25 MG Oral Tablet Spironolactone 25 MG Oral T ablet 01/09/2020 12:00:00 AM EDT 1 active spironol actone 25 MG Oral Tablet [facility]) Metformin hydrochloride 1000 MG Oral Tablet metFORMIN HCl 1000 MG Oral Tablet metFORMIN HCl 1000 MG Oral Tablet 01/09/2020 12:00:00 AM EDT active metformin hydrochloride 1000 MG Oral Tablet [facility]) Amitriptyline Hydrochloride 25 MG Oral T ablet Amitriptyline HCl 25 MG Oral Tablet Amitriptyline HCl 25 MG Oral Tablet 01/09/2020 12:00:00 AM EDT 1 active amitriptyline hydrochloride 25 M G Oral Tablet [facility]) buspirone hydrochloride 10 MG Oral Tablet busPIRone HC l 10 MG Oral Tablet busPIRone HCl 10 MG Oral Tablet 01/09/2020 12:00:00 AM EDT active buspirone hydrochloride 10 MG Oral Tablet [facility]) 24 HR Oxybutynin chloride 10 MG Extended Release Oral Tablet [Ditropan] Ditropan XL 10 MG Oral Tablet Extended Release 24 Hour Ditropan XL 10 MG Oral Tablet Extended Release 24 Hour 01/09/2020 12:00:00 AM EDT active 24 HR oxybutynin chloride 10 MG Extended Release Oral Tablet [Ditropan] [facility]) duloxetine 60 MG Delayed Release Oral Ca psule DULoxetine HCl 60 MG Oral Capsule Delayed Release Particles DULoxetine HCl 60 MG Oral Capsule [place] d Release Particles 01/09/2020 12:00:00 AM EDT active duloxetine 60 MG Delayed Release Oral Capsule [facility]) duloxetine 30 MG Delayed Release Oral Ca psule DULoxetine HCl 30 MG Oral Capsule Delayed Release Particles DULoxetine HCl 30 MG Oral Capsule Delaye d Release Particles 01/09/2020 12:00:00 AM EDT active duloxetine 30 MG Delayed Release Oral Capsule [place] ([facility]) pregabalin 200 MG Oral Capsule [Lyrica] Lyrica 200 MG Oral Capsule Lyrica 200 MG Oral Capsule 01/09/2020 12:00:00 AM EDT acti ve pregabalin 200 MG Oral Capsule [Lyrica] [place] ([facility]) Lancets Ultra Fine Miscellaneous Lancets Ultra Fine Miscella neous 01/09/2020 12:00:00 AM EDT active Lancets Ultra Fine [place] ([facility]) 300-60 mg 12/22/2019 12:00:00 AM EDT tablet 75 TAKE 1TAB.BY MOUTH EVERY 8HRS NEEDED FOR PAIN MAX=3 TABS/DAY(TO LAST 30 DAYS) TAKE 1TAB.BY MOUTH EVERY 8HRS NEEDED FOR PAIN MAX=3 TABS/DAY(TO LAST 30 DAYS) SOLD: 12/23/2019 [facility] 50 mg 12/17/2019 12:00:00 AM EDT tablet 25 TAKE ONE TABLET BY MOUTH EVERY 6 HOURS NEEDED FOR PAIN MAXIMUM DAILY DOSE = 4 TABLETS TAKE ONE TABLET BY MOUTH EVERY 6 HOURS NEEDED FOR PAIN MAXIMUM DAILY DOSE = 4 TABLETS SOLD: 12/18/2019 [facility] 300-30 mg 12/13/2019 12:00:00 AM EDT tablet 10 TAKE ONE TABLET BY MOUTH EVERY 12 HOURS NEEDED FOR PAIN MAXIMUM DAILY DOSE = 2 TAKE ONE TABLET BY MOUTH EVERY 12 HOURS NEEDED FOR PAIN MAXIMUM DAILY DOSE = 2 SOLD: 12/13/2019 [facility] 75 mg 12/08/2019 12:00:00 AM EDT tablet 30 TAKE ONE TABLET BY MOUTH EVERY EVENING TAKE ONE TABLET BY MOUTH EVERY EVENING SOLD: 03/05/2020 [facility] 75 mg 12/08/2019 12:00:00 AM EDT tablet 30 TAKE ONE TABLET BY MOUTH EVERY EVENING TAKE ONE TABLET BY MOUTH EVERY EVENING SOLD: 02/06/2020 [facility] 75 mg 12/08/2019 12:00:00 AM EDT tablet 30 TAKE ONE TABLET BY MOUTH EVERY EVENING TAKE ONE TABLET BY MOUTH EVERY EVENING SOLD: 01/08/2020 [facility] 4 mg 12/08/2019 12:00:00 AM EDT tablets,dose pack 21 TAKE DIRECTED TAKE DIRECTED SOLD: 12/09/2019 [facility] 75 mg 12/08/2019 12:00:00 AM EDT tablet 30 TAKE ONE TABLET BY MOUTH EVERY EVENING TAKE ONE TABLET BY MOUTH EVERY EVENING SOLD: 04/04/2020 [facility] 75 mg 12/08/2019 12:00:00 AM EDT tablet 30 TAKE ONE TABLET BY MOUTH EVERY EVENING TAKE ONE TABLET BY MOUTH EVERY EVENING SOLD: 12/09/2019 [facility] 300-30 mg 12/06/2019 12:00:00 AM EDT tablet 10 TAKE ONE TABLET BY MOUTH EVERY 12 HOURS NEEDED FOR PAIN MAXIMUM DAILY DOSE = 2 TABLETS TAKE ONE TABLET BY MOUTH EVERY 12 HOURS NEEDED FOR PAIN MAXIMUM DAILY DOSE = 2 TABLETS SOLD: 12/06/2019 [facility] 0.4-0.3 % 12/05/2019 12:00:00 AM EDT drops 15 INSTILL 1 DROP INTO BOTH EYES NEEDED INSTILL 1 DROP INTO BOTH EYES NEEDED SOLD: 04/04/2020 [facility] 0.4-0.3 % 12/05/2019 12:00:00 AM EDT drops 15 INSTILL 1 DROP INTO BOTH EYES NEEDED INSTILL 1 DROP INTO BOTH EYES NEEDED SOLD: 01/08/2020 [facility] 0.4-0.3 % 12/05/2019 12:00:00 AM EDT drops 15 INSTILL 1 DROP INTO BOTH EYES NEEDED INSTILL 1 DROP INTO BOTH EYES NEEDED SOLD: 12/06/2019 [facility] 0.4-0.3 % 12/05/2019 12:00:00 AM EDT drops 15 INSTILL 1 DROP INTO BOTH EYES NEEDED INSTILL 1 DROP INTO BOTH EYES NEEDED SOLD: 02/06/2020 [facility] 0.4-0.3 % 12/05/2019 12:00:00 AM EDT drops 15 INSTILL 1 DROP INTO BOTH EYES NEEDED INSTILL 1 DROP INTO BOTH EYES NEEDED SOLD: 03/05/2020 [facility] 300-30 mg 12/02/2019 12:00:00 AM EDT tablet 10 TAKE 1 TABLET BY MOUTH EVERY 12HRS NEEDED FOR PAIN MAX DAILY DOSE=2TABS TAKE 1 TABLET BY MOUTH EVERY 12HRS NEEDED FOR PAIN MAX DAILY DOSE=2TABS SOLD: 12/02/2019 [facility] 30 mg 11/28/2019 12:00:00 AM EDT capsule,delayed release (DR/EC) 30 TAKE ONE CAPSULE BY MOUTH EVERY EVENING TAKE ONE CAPSULE BY MOUTH EVERY EVENING SOLD: 01/01/2020 [facility] 30 mg 11/28/2019 12:00:00 AM EDT capsule,delayed release (DR/EC) 30 TAKE ONE CAPSULE BY MOUTH EVERY EVENING TAKE ONE CAPSULE BY MOUTH EVERY EVENING SOLD: 12/06/2019 [facility] 60 mg 11/28/2019 12:00:00 AM EDT capsule,delayed release (DR/EC) 30 TAKE ONE CAPSULE BY MOUTH EVERY EVENING TAKE ONE CAPSULE BY MOUTH EVERY EVENING SOLD: 12/02/2019 [facility] 60 mg 11/28/2019 12:00:00 AM EDT capsule,delayed release (DR/EC) 30 TAKE ONE CAPSULE BY MOUTH EVERY EVENING TAKE ONE CAPSULE BY MOUTH EVERY EVENING SOLD: 01/01/2020 [facility] 30 mg 11/28/2019 12:00:00 AM EDT capsule,delayed release (DR/EC) 30 TAKE ONE CAPSULE BY MOUTH EVERY EVENING TAKE ONE CAPSULE BY MOUTH EVERY EVENING SOLD: 02/06/2020 [facility] 60 mg 11/28/2019 12:00:00 AM EDT capsule,delayed release (DR/EC) 30 TAKE ONE CAPSULE BY MOUTH EVERY EVENING TAKE ONE CAPSULE BY MOUTH EVERY EVENING SOLD: 02/06/2020 [facility] 300-30 mg 11/27/2019 12:00:00 AM EDT tablet 10 TAKE 1 TABLET BY MOUTH EVERY 12HRS NEEDED FOR PAIN MAX DAILY DOSE=2 TABLETS TAKE 1 TABLET BY MOUTH EVERY 12HRS NEEDED FOR PAIN MAX DAILY DOSE=2 TABLETS SOLD: 11/27/2019 [facility] BLOOD SUGAR DIAGNOSTIC 11/21/2019 12:00:00 AM EDT strip 100 TEST THREE TIMES A DAY TEST THREE TIMES A DAY SOLD: 02/14/2020 [facility] 300-30 mg 11/21/2019 12:00:00 AM EDT tablet 10 TAKE 1TABLET BY MOUTH EVERY 12HRS NEEDED FOR PAIN MAX=TWO TABLETS/DAY TAKE 1TABLET BY MOUTH EVERY 12HRS NEEDED FOR PAIN MAX=TWO TABLETS/DAY SOLD: 11/21/2019 [facility] BLOOD SUGAR DIAGNOSTIC 11/21/2019 12:00:00 AM EDT strip 100 TEST THREE TIMES A DAY TEST THREE TIMES A DAY SOLD: 11/21/2019 [facility] BLOOD SUGAR DIAGNOSTIC 11/21/2019 12:00:00 AM EDT strip 100 TEST THREE TIMES A DAY TEST THREE TIMES A DAY SOLD: 12/27/2019 [facility] 300-30 mg 11/14/2019 12:00:00 AM EDT tablet 10 TAKE 1 TABLET BY MOUTH EVERY 12 HOURS NEEDED FOR PAIN MAX DAILY DOSE = 2 TABLETS TAKE 1 TABLET BY MOUTH EVERY 12 HOURS NEEDED FOR PAIN MAX DAILY DOSE = 2 TABLETS SOLD: 11/14/2019 [facility] 300-30 mg 11/10/2019 12:00:00 AM EDT tablet 10 TAKE ONE TABLET BY MOUTH EVERY 12 HOURS NEEDED FOR PAIN MAXIMUM DAILY DOSE = 2 TABLETS TAKE ONE TABLET BY MOUTH EVERY 12 HOURS NEEDED FOR PAIN MAXIMUM DAILY DOSE = 2 TABLETS SOLD: 11/10/2019 [facility] 33 gauge 11/06/2019 12:00:00 AM EDT misc 100 USE TO TEST 3 TIMES A DAY USE TO TEST 3 TIMES A DAY SOLD: 12/09/2019 [facility] 11/06/2019 12:00:00 AM EDT misc 100 USE TO TEST 3 TIMES A DAY USE TO TEST 3 TIMES A DAY SOLD: 01/08/2020 [facility] 11/06/2019 12:00:00 AM EDT misc 100 USE TO TEST 3 TIMES A DAY USE TO TEST 3 TIMES A DAY SOLD: 11/10/2019 [facility] 300-30 mg 11/04/2019 12:00:00 AM EDT tablet 15 TAKE ONE TABLET BY MOUTH EVERY 8 HOURS NEEDED FOR PAIN MAXIMUM DAILY DOSE = 3 TABLETS TAKE ONE TABLET BY MOUTH EVERY 8 HOURS NEEDED FOR PAIN MAXIMUM DAILY DOSE = 3 TABLETS SOLD: 11/04/2019 [facility] montelukast 10 MG Oral Tablet MONTELUKAST SODIUM 11/03/2019 12:0 0:00 AM EDT tablet 30 TAKE ONE TABLET BY MOUTH EVERY D AY TAKE ONE TABLET BY MOUTH EVERY DAY SOLD: 11/04/2019 [facility] 1,000 mg 11/03/2019 12:00:00 AM EDT tablet 60 TAKE ONE TABLET BY MOUTH TWICE A DAY TAKE ONE TABLET BY MOUTH TWICE A DAY SOLD: 11/04/2019 [facility] montelukast 10 MG Oral Tablet MONTELUKAST SODIUM 11/03/2019 12:0 0:00 AM EDT tablet 30 TAKE ONE TABLET BY MOUTH EVERY D AY TAKE ONE TABLET BY MOUTH EVERY DAY SOLD: 12/02/2019 [facility] Metformin hydrochloride 1000 MG Oral Tablet 1,000 mg METFORM IN HCL 11/03/2019 12:00:00 AM EDT tablet 60 TAKE ONE TABLET BY MOUTH TWICE A DAY TAKE ONE TABLET BY MOUTH TWICE A DAY SOLD: 01/01/2020 [facility] 1,000 mg 11/03/2019 12:00:00 AM EDT tablet 60 TAKE ONE TABLET BY MOUTH TWICE A DAY TAKE ONE TABLET BY MOUTH TWICE A DAY SOLD: 12/02/2019 [facility] montelukast 10 MG Oral Tablet MONTELUKAST SODIUM 11/03/2019 12:0 0:00 AM EDT tablet 30 TAKE ONE TABLET BY MOUTH EVERY D AY TAKE ONE TABLET BY MOUTH EVERY DAY SOLD: 01/01/2020 [facility] 300-30 mg 10/31/2019 12:00:00 AM EDT tablet 15 TAKE 1 TABLET BY MOUTH EVERY 8 HOURS NEEDED FOR PAIN MAX DAILY DOSE = 3 TABLETS TAKE 1 TABLET BY MOUTH EVERY 8 HOURS NEEDED FOR PAIN MAX DAILY DOSE = 3 TABLETS SOLD: 10/31/2019 [facility] 300-30 mg 10/27/2019 12:00:00 AM EDT tablet 15 TAKE ONE TABLET BY MOUTH EVERY 8 HOURS NEEDED FOR PAIN MAXIMUM DAILY DOSE = 3 TABLETS TAKE ONE TABLET BY MOUTH EVERY 8 HOURS NEEDED FOR PAIN MAXIMUM DAILY DOSE = 3 TABLETS SOLD: 10/27/2019 [facility] 40 mg 10/26/2019 12:00:00 AM EDT tablet 30 TAKE ONE TABLET BY MOUTH EVERY DAY TAKE ONE TABLET BY MOUTH EVERY DAY SOLD: 10/27/2019 [facility] 40 mg 10/26/2019 12:00:00 AM EDT tablet 30 TAKE ONE TABLET BY MOUTH EVERY DAY TAKE ONE TABLET BY MOUTH EVERY DAY SOLD: 12/18/2019 [facility] 40 mg 10/26/2019 12:00:00 AM EDT tablet 30 TAKE ONE TABLET BY MOUTH EVERY DAY TAKE ONE TABLET BY MOUTH EVERY DAY SOLD: 01/16/2020 [facility] NITROFURANTOIN, MACROCRYSTALS 50 MG Oral Capsule NITROFURANT OIN MACROCRYSTAL 10/25/2019 12:00:00 AM EDT capsule 30 TAKE ONE CAPSU LE BY MOUTH EVERY DAY TAKE ONE CAPSULE BY MOUTH EVERY DAY SOLD: 10/25/2019 [facility] 50 mg 10/25/2019 12:00:00 AM EDT capsule 30 TAKE ONE CAPSULE BY MOUTH EVERY DAY TAKE ONE CAPSULE BY MOUTH EVERY DAY SOLD: 11/25/2019 [facility] NITROFURANTOIN, MACROCRYSTALS 50 MG Oral Capsule Nitrofurantoin Macrocrystal 50 MG Oral Capsule Nitrofurantoin Macrocrystal 50 MG Oral Capsule 12:00:00 AM EDT 1 active nitrofurantoin, macrocrystals 50 MG Oral Capsule [facility] ([facility]) 50 mg 10/25/2019 12:00:00 AM EDT capsule 30 TAKE ONE CAPSULE BY MOUTH EVERY DAY TAKE ONE CAPSULE BY MOUTH EVERY DAY SOLD: 12/27/2019 [facility] 50 mg 10/25/2019 12:00:00 AM EDT capsule 30 TAKE ONE CAPSULE BY MOUTH EVERY DAY TAKE ONE CAPSULE BY MOUTH EVERY DAY SOLD: 01/26/2020 [facility] 300-30 mg 10/23/2019 12:00:00 AM EDT tablet 15 TAKE 1-2 TABLETS BY MOUTH EVERY 4 TO 6 HOURS NEEDED FOR PAIN MAX DAILY DOSE = 4 TABLETS TAKE 1-2 TABLETS BY MOUTH EVERY 4 TO 6 HOURS NEEDED FOR PAIN MAX DAILY DOSE = 4 TABLETS SOLD: 10/23/2019 [facility] 20 mg 10/22/2019 12:00:00 AM EDT tablet 60 TAKE ONE TABLET BY MOUTH TWICE A DAY NEEDED TAKE ONE TABLET BY MOUTH TWICE A DAY NEEDED SOLD: 03/17/2020 [facility] 20 mg 10/22/2019 12:00:00 AM EDT tablet 60 TAKE ONE TABLET BY MOUTH TWICE A DAY NEEDED TAKE ONE TABLET BY MOUTH TWICE A DAY NEEDED SOLD: 10/22/2019 [facility] 20 mg 10/22/2019 12:00:00 AM EDT tablet 60 TAKE ONE TABLET BY MOUTH TWICE A DAY NEEDED TAKE ONE TABLET BY MOUTH TWICE A DAY NEEDED SOLD: 12/18/2019 [facility] 20 mg 10/22/2019 12:00:00 AM EDT tablet 60 TAKE ONE TABLET BY MOUTH TWICE A DAY NEEDED TAKE ONE TABLET BY MOUTH TWICE A DAY NEEDED SOLD: 11/20/2019 [facility] Famotidine 20 MG Oral Tablet FAMOTIDINE 10/22/2019 12:00:00 AM EDT tab let 60 TAKE ONE TABLET BY MOUTH TWICE A DAY NEEDED TAKE ONE TABLET BY MOUTH TWICE A DAY NEEDED SOLD: 01/16/2020 [facility] 20 mg 10/22/2019 12:00:00 AM EDT tablet 60 TAKE ONE TABLET BY MOUTH TWICE A DAY NEEDED TAKE ONE TABLET BY MOUTH TWICE A DAY NEEDED SOLD: 02/14/2020 [facility] 20 mg 10/20/2019 12:00:00 AM EDT capsule,delayed release (DR/EC) 60 TAKE ONE CAPSULE BY MOUTH TWICE A DAY TAKE ONE CAPSULE BY MOUTH TWICE A DAY SOLD: 10/22/2019 [facility] 1 gram 10/20/2019 12:00:00 AM EDT tablet 120 TAKE ONE TABLET BY MOUTH FOUR TIMES A DAY( AT MEALS AND BEDTIME) TAKE ONE TABLET BY MOUTH FOUR TIMES A DA Y( AT MEALS AND BEDTIME) SOLD: 12/18/2019 [facility] Misoprostol 0.2 MG Oral Tablet 200 mcg MISOPROSTOL 0 12:00:00 AM EDT tablet 120 TAKE ONE TABLET BY M OUTH FOUR TIMES A DAY( WITH MEALS AND AT BEDTIME) TAKE ONE TABLET BY MOUTH FOUR TIMES A DAY( WITH MEALS AND AT BEDTIME) SOLD: 12/23/2019 [facility] 20 mg 10/20/2019 12:00:00 AM EDT capsule,delayed release (DR/EC) 60 TAKE ONE CAPSULE BY MOUTH TWICE A DAY TAKE ONE CAPSULE BY MOUTH TWICE A DAY SOLD: 02/14/2020 [facility] Misoprostol 0.2 MG Oral Tablet 200 mcg MISOPROSTOL 0 12:00:00 AM EDT tablet 120 TAKE ONE TABLET BY M OUTH FOUR TIMES A DAY( WITH MEALS AND AT BEDTIME) TAKE ONE TABLET BY MOUTH FOUR TIMES A DAY( WITH MEALS AND AT BEDTIME) SOLD: 11/20/2019 [facility] 20 mg 10/20/2019 12:00:00 AM EDT capsule,delayed release (DR/EC) 60 TAKE ONE CAPSULE BY MOUTH TWICE A DAY TAKE ONE CAPSULE BY MOUTH TWICE A DAY SOLD: 03/17/2020 [facility] Misoprostol 0.2 MG Oral Tablet 200 mcg MISOPROSTOL 0 12:00:00 AM EDT tablet 120 TAKE ONE TABLET BY M OUTH FOUR TIMES A DAY( WITH MEALS AND AT BEDTIME) TAKE ONE TABLET BY MOUTH FOUR TIMES A DAY( WITH MEALS AND AT BEDTIME) SOLD: 01/21/2020 [facility] 20 mg 10/20/2019 12:00:00 AM EDT capsule,delayed release (DR/EC) 60 TAKE ONE CAPSULE BY MOUTH TWICE A DAY TAKE ONE CAPSULE BY MOUTH TWICE A DAY SOLD: 12/18/2019 [facility] 1 gram 10/20/2019 12:00:00 AM EDT tablet 120 TAKE ONE TABLET BY MOUTH FOUR TIMES A DAY( AT MEALS AND BEDTIME) TAKE ONE TABLET BY MOUTH FOUR TIMES A DA Y( AT MEALS AND BEDTIME) SOLD: 01/16/2020 [facility] 20 mg 10/20/2019 12:00:00 AM EDT capsule,delayed release (DR/EC) 60 TAKE ONE CAPSULE BY MOUTH TWICE A DAY TAKE ONE CAPSULE BY MOUTH TWICE A DAY SOLD: 11/20/2019 [facility] 20 mg 10/20/2019 12:00:00 AM EDT capsule,delayed release (DR/EC) 60 TAKE ONE CAPSULE BY MOUTH TWICE A DAY TAKE ONE CAPSULE BY MOUTH TWICE A DAY SOLD: 01/16/2020 [facility] 1 gram 10/20/2019 12:00:00 AM EDT tablet 120 TAKE ONE TABLET BY MOUTH FOUR TIMES A DAY( AT MEALS AND BEDTIME) TAKE ONE TABLET BY MOUTH FOUR TIMES A DA Y( AT MEALS AND BEDTIME) SOLD: 10/22/2019 [facility] Misoprostol 0.2 MG Oral Tablet 200 mcg MISOPROSTOL 0 12:00:00 AM EDT tablet 120 TAKE ONE TABLET BY M OUTH FOUR TIMES A DAY( WITH MEALS AND AT BEDTIME) TAKE ONE TABLET BY MOUTH FOUR TIMES A DAY( WITH MEALS AND AT BEDTIME) SOLD: 02/23/2020 [facility] 1 gram 10/20/2019 12:00:00 AM EDT tablet 120 TAKE ONE TABLET BY MOUTH FOUR TIMES A DAY( AT MEALS AND BEDTIME) TAKE ONE TABLET BY MOUTH FOUR TIMES A DA Y( AT MEALS AND BEDTIME) SOLD: 11/20/2019 [facility] 1 gram 10/20/2019 12:00:00 AM EDT tablet 120 TAKE ONE TABLET BY MOUTH FOUR TIMES A DAY( AT MEALS AND BEDTIME) TAKE ONE TABLET BY MOUTH FOUR TIMES A DA Y( AT MEALS AND BEDTIME) SOLD: 02/14/2020 [facility] 200 mcg 10/20/2019 12:00:00 AM EDT tablet 120 TAKE ONE TABLET BY MOUTH FOUR TIMES A DAY( WITH MEALS AND AT BEDTIME) TAKE ONE TABLET BY MOUTH FOUR TIMES A DAY( WITH MEALS AND AT BEDTIME) SOLD: 10/22/2019 [facility] 1 gram 10/20/2019 12:00:00 AM EDT tablet 120 TAKE ONE TABLET BY MOUTH FOUR TIMES A DAY( AT MEALS AND BEDTIME) TAKE ONE TABLET BY MOUTH FOUR TIMES A DA Y( AT MEALS AND BEDTIME) SOLD: 03/17/2020 [facility] Misoprostol 0.2 MG Oral Tablet 200 mcg MISOPROSTOL 0 12:00:00 AM EDT tablet 120 TAKE ONE TABLET BY M OUTH FOUR TIMES A DAY( WITH MEALS AND AT BEDTIME) TAKE ONE TABLET BY MOUTH FOUR TIMES A DAY( WITH MEALS AND AT BEDTIME) SOLD: 03/29/2020 [facility] Acetaminophen 300 MG / Codeine Phosphate 30 MG Oral Tablet [Tylenol with Codeine] Tylenol With Codeine #3 10/17/2019 12:00:00 AM EDT ORAL active MEDENT ([facility]) 300-30 mg 10/17/2019 12:00:00 AM EDT tablet 15 TAKE ONE TO TWO TABLETS BY MOUTH EVERY 4 TO 6 HOURS NEEDED FOR PAIN MAX 4TABS/DAY TAKE ONE TO TWO TABLETS BY MOUTH EVERY 4 TO 6 HOURS NEEDED FOR PAIN MAX 4TABS/DAY SOLD: 10/18/2019 [facility] 500 mg 10/17/2019 12:00:00 AM EDT capsule 20 TAKE ONE CAPSULE BY MOUTH TWICE A DAY FOR 10 DAYS TAKE ONE CAPSULE BY MOUTH TWICE A DAY FOR 10 DAYS SOLD : 10/17/2019 [facility] Ampicillin 500 MG Oral Capsule Ampicillin 500 MG Oral Capsul e 10/16/2019 12:00:00 AM EDT aborted ampicil bridget 500 MG Oral Capsule [facility] ([facility]) 25 mg 10/10/2019 12:00:00 AM EDT tablet 30 TAKE ONE TABLET BY MOUTH EVERY DAY TAKE ONE TABLET BY MOUTH EVERY DAY SOLD: 11/14/2019 [facility] 25 mg 10/10/2019 12:00:00 AM EDT tablet 30 TAKE ONE TABLET BY MOUTH EVERY DAY TAKE ONE TABLET BY MOUTH EVERY DAY SOLD: 11/14/2019 [facility] 25 mg 10/10/2019 12:00:00 AM EDT tablet 30 TAKE ONE TABLET BY MOUTH EVERY DAY TAKE ONE TABLET BY MOUTH EVERY DAY SOLD: 10/17/2019 [facility] 100 mg 10/10/2019 12:00:00 AM EDT capsule 90 TAKE ONE CAPSULE BY MOUTH THREE TIMES A DAY TAKE ONE CAPSULE BY MOUTH THREE TIMES A DAY SOLD: 11/14/2019 [facility] Lancets Ultra Fine Miscellaneous Lancets Ultra Fine Miscella neous 10/10/2019 12:00:00 AM EDT aborted Lancets Ultra Fine [place] ([facility]) montelukast 10 MG Oral Tablet [Singulair] Singulair 10 MG Oral Tablet Singulair 10 MG Oral Tablet 10/10/2019 12:00:00 AM EDT aborted montelukast 10 MG Oral Tablet [Singulair] [place] ([facility]) Furosemide 40 MG Oral Tablet [Lasix] Lasix 40 MG Oral Tablet Lasix 40 MG Oral Tablet 10/10/2019 12:00:00 AM EDT aborted furosemide 40 MG Oral Tablet [Lasix] [place] ([facility]) OneTouch Delica Lancets 33G Miscellaneous OneTouch Del ica Lancets 33G Miscellaneous 10/10/2019 12:00:00 AM EDT abor rubi OneTouch Delica Lancets 33G [place] ([facility]) 25 mg 10/10/2019 12:00:00 AM EDT tablet 30 TAKE ONE TABLET BY MOUTH EVERY DAY TAKE ONE TABLET BY MOUTH EVERY DAY SOLD: 10/17/2019 [facility] Metformin hydrochloride 1000 MG Oral Tablet metFORMIN HCl 1000 MG Oral Tablet metFORMIN HCl 1000 MG Oral Tablet 10/10/2019 12:00:00 AM EDT aborted metformin hydrochloride 1000 MG Oral Tab let [facility]) Losartan Potassium 25 MG Oral Tablet Losartan Potassium 25 M G Oral Tablet 10/10/2019 12:00:00 AM EDT aborted losartan potassium 25 MG Oral Tablet [facility]) 25 mg 10/10/2019 12:00:00 AM EDT tablet 30 TAKE ONE TABLET BY MOUTH EVERY DAY TAKE ONE TABLET BY MOUTH EVERY DAY SOLD: 12/13/2019 [facility] 50 mcg/actuation 10/10/2019 12:00:00 AM EDT spray,suspension 16 SPRAY TWO SPRAYS IN EACH NOSTRIL EVERY DAY DIRECTED SPRAY TWO SPRAYS IN EACH NOSTRIL EVERY DAY DIRECTED SOLD: 12/13/2019 [facility] 50 mcg/actuation 10/10/2019 12:00:00 AM EDT spray,suspension 16 SPRAY TWO SPRAYS IN EACH NOSTRIL EVERY DAY DIRECTED SPRAY TWO SPRAYS IN EACH NOSTRIL EVERY DAY DIRECTED SOLD: 10/17/2019 [facility] Spironolactone 25 MG Oral Tablet Spironolactone 25 MG Oral T ablet 10/10/2019 12:00:00 AM EDT 1 aborted spirono lactone 25 MG Oral Tablet [facility]) Sumatriptan 50 MG Oral Tablet [Imitrex] Imitrex 50 MG Oral Tablet Imitrex 50 MG Oral Tablet 10/10/2019 12:00:00 AM EDT aborte d sumatriptan 50 MG Oral Tablet [Imitrex] [facility]) Docusate Sodium 100 MG Oral Capsule [Dul colax Stool Softener] Dulcolax Stool Softener 100 MG Oral Capsule Dulcolax Stool Softener 100 MG Oral Capsule 10/10/2019 12:00:00 AM EDT aborted docusate sodium 100 MG Oral Capsule [Dulcolax Stool Softener] [facility]) 50 mcg/actuation 10/10/2019 12:00:00 AM EDT spray,suspension 16 SPRAY TWO SPRAYS IN EACH NOSTRIL EVERY DAY DIRECTED SPRAY TWO SPRAYS IN EACH NOSTRIL EVERY DAY DIRECTED SOLD: 11/14/2019 [facility] Fluticasone Propionate 50 MCG/ACT Nasal Suspension Flu ticasone Propionate 50 MCG/ACT Nasal Suspension 10/10/2019 12:00:00 AM EDT aborted fluticasone propionate 0.05 MG/ACTUAT Metered Dose Nasal [facility]) cetirizine hydrochloride 10 MG Oral Tablet Cetirizine HCl 10 MG Oral Tablet Cetirizine HCl 10 MG Oral Tablet 10/10/2019 12:00:00 AM EDT aborted cetirizine hydrochloride 10 MG Oral Tablet [facility]) Losartan Potassium 25 MG Oral Tablet [facility] 12:00:00 AM EDT tablet 30 TAKE ONE TABLET BY MOUTH AKABR RY DAY TAKE ONE TABLET BY MOUTH EVERY DAY SOLD: 12/13/2019 [facility] 100 mg 10/10/2019 12:00:00 AM EDT capsule 90 TAKE ONE CAPSULE BY MOUTH THREE TIMES A DAY TAKE ONE CAPSULE BY MOUTH THREE TIMES A DAY SOLD: 12/13/2019 [facility] 10 mg 10/10/2019 12:00:00 AM EDT tablet 30 TAKE ONE TABLET BY MOUTH EVERY DAY TAKE ONE TABLET BY MOUTH EVERY DAY SOLD: 10/17/2019 [facility] 10 mg 10/10/2019 12:00:00 AM EDT tablet 30 TAKE ONE TABLET BY MOUTH EVERY DAY TAKE ONE TABLET BY MOUTH EVERY DAY SOLD: 12/13/2019 [facility] 10 mg 10/10/2019 12:00:00 AM EDT tablet 30 TAKE ONE TABLET BY MOUTH EVERY DAY TAKE ONE TABLET BY MOUTH EVERY DAY SOLD: 11/14/2019 [facility] 100 mg 10/10/2019 12:00:00 AM EDT capsule 90 TAKE ONE CAPSULE BY MOUTH THREE TIMES A DAY TAKE ONE CAPSULE BY MOUTH THREE TIMES A DAY SOLD: 10/17/2019 [facility] buspirone hydrochloride 10 MG Oral Tablet BUSPIRONE HCL 10/05/2019 12:00:00 AM EDT tablet 60 TAKE ONE TABLET BY MOUTH TWI CE A DAY TAKE ONE TABLET BY MOUTH TWICE A DAY SOLD: 10/07/2019 [facility] buspirone hydrochloride 10 MG Oral Tablet BUSPIRONE HCL 10/05/2019 12:00:00 AM EDT tablet 60 TAKE ONE TABLET BY MOUTH TWI CE A DAY TAKE ONE TABLET BY MOUTH TWICE A DAY SOLD: 11/04/2019 [facility] buspirone hydrochloride 10 MG Oral Tablet BUSPIRONE HCL 10/05/2019 12:00:00 AM EDT tablet 60 TAKE ONE TABLET BY MOUTH TWI CE A DAY TAKE ONE TABLET BY MOUTH TWICE A DAY SOLD: 12/02/2019 [facility] Nystatin 100 UNT/MG Topical Powder 100,000 unit/gram NYSTATI N 10/04/2019 12:00:00 AM EDT powder 15 APPLY TO AFFECTE D AREA(S) OF UNDER BREASTS & GROIN TWO TIMES A DAY APPLY TO AFFECTED AREA(S) OF UNDER BREAS TS & GROIN TWO TIMES A DAY SOLD: 10/07/2019 [facility] 90 mcg/actuation 10/03/2019 12:00:00 AM EDT HFA aerosol inha ler 18 INHALE 2 PUFFS BY MOUTH 4 TIMES A DAY NEEDED INHALE 2 PUFFS BY MOUTH 4 TIMES A DAY NEEDED SOLD: 10/07/2019 [facility] 90 mcg/actuation 10/03/2019 12:00:00 AM EDT HFA aerosol inha ler 18 INHALE 2 PUFFS BY MOUTH 4 TIMES A DAY NEEDED INHALE 2 PUFFS BY MOUTH 4 TIMES A DAY NEEDED SOLD: 11/25/2019 [facility] 90 mcg/actuation 10/03/2019 12:00:00 AM EDT HFA aerosol inha ler 18 INHALE 2 PUFFS BY MOUTH 4 TIMES A DAY NEEDED INHALE 2 PUFFS BY MOUTH 4 TIMES A DAY NEEDED SOLD: 10/31/2019 [facility] Nystatin 100 UNT/MG Topical Powder Nystatin [id number] UNI T/GM External Powder Nystatin [id number] UNIT/GM External Powder 10/03/2019 12:00:00 AM EDT aborted nystatin 100 UNT/MG Topical Powd er [place] ([facility]) 200 ACTUAT Albuterol 0.09 MG/ACTUAT Mete red Dose Inhaler [Ventolin] Ventolin HFA 108 (90 Base) MCG/ACT Inhalation Aerosol Solution Ventolin HFA 108 (90 Base) MCG/ACT Inhalation Aerosol Solution 10/03/2019 12:00:00 AM EDT 18 aborted [id number] 200 ACTUAT albuterol 0.09 MG/ACTUAT Metered Dose Inhaler [Ventolin] [place] ([facility]) PPD- TB Intradermal Test 10/02/2019 12:00:00 AM EDT completed [facility] ([facility]) Medication administered onsite 100 mg 10/01/2019 12:00:00 AM EDT capsule 10 TAKE ONE CAPSULE BY MOUTH TWICE A DAY FOR 5 DAYS TAKE ONE CAPSULE BY MOUTH TWICE A DAY FOR 5 DAYS SOLD: 10/01/2019 [facility] 20 mg 10/01/2019 12:00:00 AM EDT tablet 8 TAKE ONE TABLET BY MOUTH TWICE A DAY FOR 4 DAYS TAKE ONE TABLET BY MOUTH TWICE A DAY FOR 4 DAYS SOLD: 2019 [facility] Prednisone 20 MG Oral Tablet Prednisone 10/01/2019 12:00:00 AM EDT active MEDENT ([facility]) NITROFURANTOIN, MACROCRYSTALS 25 MG / Ni trofurantoin, Monohydrate 75 MG Oral Capsule Nitrofurantoin Monohyd Macro 10/01/2019 12:00:00 AM EDT ORAL active MEDENT ([facility]) 0.25 mg 09/29/2019 12:00:00 AM EDT tablet 60 TAKE ONE TABLET BY MOUTH TWICE A DAY MAXIMUM DAILY DOSE = 2 TAKE ONE TABLET BY MOUTH TWICE A DAY MAX IMUM DAILY DOSE = 2 SOLD: 12/27/2019 [facility] 0.25 mg 09/29/2019 12:00:00 AM EDT tablet 60 TAKE ONE TABLET BY MOUTH TWICE A DAY MAXIMUM DAILY DOSE = 2 TAKE ONE TABLET BY MOUTH TWICE A DAY MAX IMUM DAILY DOSE = 2 SOLD: 11/27/2019 [facility] 0.25 mg 09/29/2019 12:00:00 AM EDT tablet 60 TAKE ONE TABLET BY MOUTH TWICE A DAY MAXIMUM DAILY DOSE = 2 TAKE ONE TABLET BY MOUTH TWICE A DAY MAX IMUM DAILY DOSE = 2 SOLD: 03/05/2020 [facility] 100 mg 09/29/2019 12:00:00 AM EDT tablet 9 TAKE 1 TAB` BY MOUTH AT ONSET OF HEADACHE MAY REPEAT ONCE AFTER 2 HOURS MAX DAILY DOSE = 2 TAKE 1 TAB` BY MOUTH AT ONSET OF HEADACHE MAY REPEAT ONCE AFTER 2 HOURS MAX DAILY DOSE = 2 SOLD: 10/01/2019 [facility] 100 mg 09/29/2019 12:00:00 AM EDT tablet 9 TAKE 1 TAB` BY MOUTH AT ONSET OF HEADACHE MAY REPEAT ONCE AFTER 2 HOURS MAX DAILY DOSE = 2 TAKE 1 TAB` BY MOUTH AT ONSET OF HEADACHE MAY REPEAT ONCE AFTER 2 HOURS MAX DAILY DOSE = 2 SOLD: 11/27/2019 [facility] 100 mg 09/29/2019 12:00:00 AM EDT tablet 9 TAKE 1 TAB` BY MOUTH AT ONSET OF HEADACHE MAY REPEAT ONCE AFTER 2 HOURS MAX DAILY DOSE = 2 TAKE 1 TAB` BY MOUTH AT ONSET OF HEADACHE MAY REPEAT ONCE AFTER 2 HOURS MAX DAILY DOSE = 2 SOLD: 12/27/2019 [facility] 100 mg 09/29/2019 12:00:00 AM EDT tablet 9 TAKE 1 TAB` BY MOUTH AT ONSET OF HEADACHE MAY REPEAT ONCE AFTER 2 HOURS MAX DAILY DOSE = 2 TAKE 1 TAB` BY MOUTH AT ONSET OF HEADACHE MAY REPEAT ONCE AFTER 2 HOURS MAX DAILY DOSE = 2 SOLD: 10/31/2019 [facility] 100 mg 09/29/2019 12:00:00 AM EDT tablet 9 TAKE 1 TAB` BY MOUTH AT ONSET OF HEADACHE MAY REPEAT ONCE AFTER 2 HOURS MAX DAILY DOSE = 2 TAKE 1 TAB` BY MOUTH AT ONSET OF HEADACHE MAY REPEAT ONCE AFTER 2 HOURS MAX DAILY DOSE = 2 SOLD: 03/05/2020 [facility] 0.25 mg 09/29/2019 12:00:00 AM EDT tablet 60 TAKE ONE TABLET BY MOUTH TWICE A DAY MAXIMUM DAILY DOSE = 2 TAKE ONE TABLET BY MOUTH TWICE A DAY MAX IMUM DAILY DOSE = 2 SOLD: 10/31/2019 [facility] 0.25 mg 09/29/2019 12:00:00 AM EDT tablet 60 TAKE ONE TABLET BY MOUTH TWICE A DAY MAXIMUM DAILY DOSE = 2 TAKE ONE TABLET BY MOUTH TWICE A DAY MAX IMUM DAILY DOSE = 2 SOLD: 01/26/2020 [facility] 100 mg 09/29/2019 12:00:00 AM EDT tablet 9 TAKE 1 TAB` BY MOUTH AT ONSET OF HEADACHE MAY REPEAT ONCE AFTER 2 HOURS MAX DAILY DOSE = 2 TAKE 1 TAB` BY MOUTH AT ONSET OF HEADACHE MAY REPEAT ONCE AFTER 2 HOURS MAX DAILY DOSE = 2 SOLD: 01/26/2020 [facility] 0.25 mg 09/29/2019 12:00:00 AM EDT tablet 60 TAKE ONE TABLET BY MOUTH TWICE A DAY MAXIMUM DAILY DOSE = 2 TAKE ONE TABLET BY MOUTH TWICE A DAY MAX IMUM DAILY DOSE = 2 SOLD: 10/01/2019 [facility] Sumatriptan 100 MG Oral Tablet Sumatriptan Succinate 09/28/2019 12:00:00 AM EDT ORAL active MEDENT ( [facility]) OneTouch Ultra In Vitro Strip OneTouch Ultra In Vitro Strip 09/26/2019 12:00:00 AM EDT aborted OneTouch Ultra [facility] ([facility]) 200 mg 09/19/2019 12:00:00 AM EDT capsule 90 TAKE ONE CAPSULE BY MOUTH EVERY 8 HOURS (THREE TIMES A DAY) MAXIMUM DAILY DOSE = 3 CAPS TAKE ONE CAPSULE BY MOUTH EVERY 8 HOURS (THREE TIMES A DAY) MAXIMUM DAILY DOSE = 3 CAPS SOLD: 09/22/2019 [facility] 200 mg 09/19/2019 12:00:00 AM EDT capsule 90 TAKE ONE CAPSULE BY MOUTH EVERY 8 HOURS (THREE TIMES A DAY) MAXIMUM DAILY DOSE = 3 CAPS TAKE ONE CAPSULE BY MOUTH EVERY 8 HOURS (THREE TIMES A DAY) MAXIMUM DAILY DOSE = 3 CAPS SOLD: 11/14/2019 [facility] gabapentin 800 MG Oral Tablet GABAPENTIN 09/19/2019 12:00:00 AM EDT ta blet 90 TAKE 1 TABLET BY MOUTH 3 TIMES A DAY FOR PAIN MAX DAILY DOSE = 3 TABLETS TAKE 1 TABLET BY MOUTH 3 TIMES A DAY FOR PAIN MAX DAILY DOSE = 3 TABLETS SOLD: 11/20/2019 [facility] 200 mg 09/19/2019 12:00:00 AM EDT capsule 90 TAKE ONE CAPSULE BY MOUTH EVERY 8 HOURS (THREE TIMES A DAY) MAXIMUM DAILY DOSE = 3 CAPS TAKE ONE CAPSULE BY MOUTH EVERY 8 HOURS (THREE TIMES A DAY) MAXIMUM DAILY DOSE = 3 CAPS SOLD: 12/27/2019 [facility] gabapentin 800 MG Oral Tablet GABAPENTIN 09/19/2019 12:00:00 AM EDT ta blet 90 TAKE 1 TABLET BY MOUTH 3 TIMES A DAY FOR PAIN MAX DAILY DOSE = 3 TABLETS TAKE 1 TABLET BY MOUTH 3 TIMES A DAY FOR PAIN MAX DAILY DOSE = 3 TABLETS SOLD: 09/22/2019 [facility] gabapentin 800 MG Oral Tablet GABAPENTIN 09/19/2019 12:00:00 AM EDT ta blet 90 TAKE 1 TABLET BY MOUTH 3 TIMES A DAY FOR PAIN MAX DAILY DOSE = 3 TABLETS TAKE 1 TABLET BY MOUTH 3 TIMES A DAY FOR PAIN MAX DAILY DOSE = 3 TABLETS SOLD: 10/22/2019 [facility] 25 mg 09/18/2019 12:00:00 AM EDT tablet 30 TAKE ONE TABLET BY MOUTH EVERY DAY TAKE ONE TABLET BY MOUTH EVERY DAY SOLD: 09/18/2019 [facility] Amitriptyline Hydrochloride 25 MG Oral Tablet AMITRIPTYLINE HCL 09/18/2019 12:00:00 AM EDT tablet 30 TAKE ONE TABLET BY MOUTH EVERY DAY TAKE ONE TABLET BY MOUTH EVERY DAY SOLD: 11/14/2019 [facility] Amitriptyline Hydrochloride 25 MG Oral Tablet AMITRIPTYLINE HCL 09/18/2019 12:00:00 AM EDT tablet 30 TAKE ONE TABLET BY MOUTH EVERY DAY TAKE ONE TABLET BY MOUTH EVERY DAY SOLD: 10/17/2019 [facility] buspirone hydrochloride 10 MG Oral Tablet BUSPIRONE HCL 09/14/2019 12:00:00 AM EDT tablet 60 TAKE ONE TABLET BY MOUTH TWI CE A DAY TAKE ONE TABLET BY MOUTH TWICE A DAY SOLD: 09/17/2019 [facility] 21 mg/24 hr 09/08/2019 12:00:00 AM EDT patch 24 hour 28 APPLY 1 PATCH TO THE SKIN EVERY 24 HOURS APPLY 1 PATCH TO THE SKIN EVERY 24 HOURS SOLD: 09/10/2019 [facility] 21 mg/24 hr 09/08/2019 12:00:00 AM EDT patch 24 hour 28 APPLY 1 PATCH TO THE SKIN EVERY 24 HOURS APPLY 1 PATCH TO THE SKIN EVERY 24 HOURS SOLD: 10/07/2019 [facility] 21 mg/24 hr 09/08/2019 12:00:00 AM EDT patch 24 hour 28 APPLY 1 PATCH TO THE SKIN EVERY 24 HOURS APPLY 1 PATCH TO THE SKIN EVERY 24 HOURS SOLD: 11/04/2019 [facility] Ketorolac Tromethamine 10 MG Oral Tablet Ketorolac Trometham ine 10 MG 08/30/2019 12:00:00 AM EDT active Ketorol ac Tromethamine 10 MG eCW1 ([facility]) Methocarbamol 750 MG Oral Tablet [Robaxin] Robaxin-750 750 MG Robaxin-750 750 MG 08/30/2019 12:00:00 AM EDT 1.0 {tablet} active Robaxin-750 750 MG eCW1 ([facility]) 750 mg 08/30/2019 12:00:00 AM EDT tablet 90 TAKE ONE TABLET BY MOUTH EVERY 8 HOURS NEEDED TAKE ONE TABLET BY MOUTH EVERY 8 HOURS NEEDED SOLD: 08/30/2019 [facility] Ketorolac Tromethamine 10 MG Oral Tablet Ketorolac Trometham ine 10 MG 08/30/2019 12:00:00 AM EDT active Ketorol ac Tromethamine 10 MG eCW1 ([facility]) Ketorolac Tromethamine 10 MG Oral Tablet Ketorolac Trometham ine 10 MG 08/30/2019 12:00:00 AM EDT active Ketorol ac Tromethamine 10 MG eCW1 ([facility]) Ketorolac Tromethamine 10 MG Oral Tablet Ketorolac Trometham ine 10 MG 08/30/2019 12:00:00 AM EDT suspended Keto rolac Tromethamine 10 MG eCW1 ([facility]) Methocarbamol 750 MG Oral Tablet [Robaxin] Robaxin-750 750 MG Robaxin-750 750 MG 08/30/2019 12:00:00 AM EDT 1.0 {tablet} active Robaxin-750 750 MG eCW1 ([facility]) Ketorolac Tromethamine 10 MG Oral Tablet Ketorolac Trometham ine 10 MG 08/30/2019 12:00:00 AM EDT suspended Keto rolac Tromethamine 10 MG eCW1 ([facility]) Ketorolac Tromethamine 10 MG Oral Tablet Ketorolac Trometham ine 10 MG 08/30/2019 12:00:00 AM EDT active Ketorol ac Tromethamine 10 MG eCW1 ([facility]) Ketorolac Tromethamine 10 MG Oral Tablet Ketorolac Trometham ine 10 MG 08/30/2019 12:00:00 AM EDT suspended 1 ta blet with food or milk as needed eCW1 ([facility]) Ketorolac Tromethamine 10 MG Oral Tablet Ketorolac Trometham ine 10 MG 08/30/2019 12:00:00 AM EDT active 1 table t with food or milk as needed eCW1 ([facility]) Methocarbamol 750 MG Oral Tablet [Robaxin] Robaxin-750 750 MG Robaxin-750 750 MG 08/30/2019 12:00:00 AM EDT 1.0 {tablet} active Robaxin-750 750 MG eCW1 ([facility]) Methocarbamol 750 MG Oral Tablet [Robaxin] Robaxin-750 750 MG Robaxin-750 750 MG 08/30/2019 12:00:00 AM EDT active 1 tablet eCW1 ([facility]) Methocarbamol 750 MG Oral Tablet [Robaxin] Robaxin-750 750 MG Robaxin-750 750 MG 08/30/2019 12:00:00 AM EDT active 1 tablet eCW1 ([facility]) Ketorolac Tromethamine 10 MG Oral Tablet Ketorolac Trometham ine 10 MG 08/30/2019 12:00:00 AM EDT suspended Keto rolac Tromethamine 10 MG eCW1 ([facility]) Methocarbamol 750 MG Oral Tablet [Robaxin] Robaxin-750 750 MG Robaxin-750 750 MG 08/30/2019 12:00:00 AM EDT active 1 tablet eCW1 ([facility]) Methocarbamol 750 MG Oral Tablet [Robaxin] Robaxin-750 750 MG Robaxin-750 750 MG 08/30/2019 12:00:00 AM EDT 1.0 {tablet} active Robaxin-750 750 MG eCW1 ([facility]) Ketorolac Tromethamine 10 MG Oral Tablet Ketorolac Trometham ine 10 MG 08/30/2019 12:00:00 AM EDT active 1 table t with food or milk as needed eCW1 ([facility]) Methocarbamol 750 MG Oral Tablet [Robaxin] Robaxin-750 750 MG Robaxin-750 750 MG 08/30/2019 12:00:00 AM EDT 1.0 {tablet} active Robaxin-750 750 MG eCW1 ([facility]) Methocarbamol 750 MG Oral Tablet [Robaxin] Robaxin-750 750 MG Robaxin-750 750 MG 08/30/2019 12:00:00 AM EDT 1.0 {tablet} active Robaxin-750 750 MG eCW1 ([facility]) Methocarbamol 750 MG Oral Tablet [Robaxin] Robaxin-750 750 MG Robaxin-750 750 MG 08/30/2019 12:00:00 AM EDT 1.0 {tablet} active Robaxin-750 750 MG eCW1 ([facility]) Methocarbamol 750 MG Oral Tablet [Robaxin] Robaxin-750 750 MG Robaxin-750 750 MG 08/30/2019 12:00:00 AM EDT 1.0 {tablet} active Robaxin-750 750 MG eCW1 ([facility]) Ketorolac Tromethamine 10 MG Oral Tablet Ketorolac Trometham ine 10 MG 08/30/2019 12:00:00 AM EDT suspended Keto rolac Tromethamine 10 MG eCW1 ([facility]) Ketorolac Tromethamine 10 MG Oral Tablet Ketorolac Trometham ine 10 MG 08/30/2019 12:00:00 AM EDT active Ketorol ac Tromethamine 10 MG eCW1 ([facility]) Methocarbamol 750 MG Oral Tablet [Robaxin] Robaxin-750 750 MG Robaxin-750 750 MG 08/30/2019 12:00:00 AM EDT 1.0 {tablet} active Robaxin-750 750 MG eCW1 ([facility]) Ketorolac Tromethamine 10 MG Oral Tablet Ketorolac Trometham ine 10 MG 08/30/2019 12:00:00 AM EDT suspended Keto rolac Tromethamine 10 MG eCW1 ([facility]) 750 mg 08/30/2019 12:00:00 AM EDT tablet 90 TAKE ONE TABLET BY MOUTH EVERY 8 HOURS NEEDED TAKE ONE TABLET BY MOUTH EVERY 8 HOURS NEEDED SOLD: 10/31/2019 [facility] 750 mg 08/30/2019 12:00:00 AM EDT tablet 90 TAKE ONE TABLET BY MOUTH EVERY 8 HOURS NEEDED TAKE ONE TABLET BY MOUTH EVERY 8 HOURS NEEDED SOLD: 10/01/2019 [facility] Methocarbamol 750 MG Oral Tablet [Robaxin] Robaxin-750 750 MG Robaxin-750 750 MG 08/30/2019 12:00:00 AM EDT 1.0 {tablet} active Robaxin-750 750 MG eCW1 ([facility]) 30 mg 08/24/2019 12:00:00 AM EDT capsule,delayed release (DR/EC) 30 TAKE ONE CAPSULE BY MOUTH EVERY EVENING TAKE ONE CAPSULE BY MOUTH EVERY EVENING SOLD: 08/27/2019 [facility] 60 mg 08/24/2019 12:00:00 AM EDT capsule,delayed release (DR/EC) 30 TAKE ONE CAPSULE BY MOUTH EVERY EVENING TAKE ONE CAPSULE BY MOUTH EVERY EVENING SOLD: 08/27/2019 [facility] 60 mg 08/24/2019 12:00:00 AM EDT capsule,delayed release (DR/EC) 30 TAKE ONE CAPSULE BY MOUTH EVERY EVENING TAKE ONE CAPSULE BY MOUTH EVERY EVENING SOLD: 10/01/2019 [facility] 30 mg 08/24/2019 12:00:00 AM EDT capsule,delayed release (DR/EC) 30 TAKE ONE CAPSULE BY MOUTH EVERY EVENING TAKE ONE CAPSULE BY MOUTH EVERY EVENING SOLD: 10/31/2019 [facility] 60 mg 08/24/2019 12:00:00 AM EDT capsule,delayed release (DR/EC) 30 TAKE ONE CAPSULE BY MOUTH EVERY EVENING TAKE ONE CAPSULE BY MOUTH EVERY EVENING SOLD: 10/31/2019 [facility] 30 mg 08/24/2019 12:00:00 AM EDT capsule,delayed release (DR/EC) 30 TAKE ONE CAPSULE BY MOUTH EVERY EVENING TAKE ONE CAPSULE BY MOUTH EVERY EVENING SOLD: 10/01/2019 [facility] 1,000 mg 08/09/2019 12:00:00 AM EDT tablet 60 TAKE ONE TABLET BY MOUTH TWICE A DAY TAKE ONE TABLET BY MOUTH TWICE A DAY SOLD: 09/10/2019 [facility] 1,000 mg 08/09/2019 12:00:00 AM EDT tablet 60 TAKE ONE TABLET BY MOUTH TWICE A DAY TAKE ONE TABLET BY MOUTH TWICE A DAY SOLD: 08/13/2019 [facility] 1,000 mg 08/09/2019 12:00:00 AM EDT tablet 60 TAKE ONE TABLET BY MOUTH TWICE A DAY TAKE ONE TABLET BY MOUTH TWICE A DAY SOLD: 10/07/2019 [facility] montelukast 10 MG Oral Tablet MONTELUKAST SODIUM 08/09/2019 12:0 0:00 AM EDT tablet 30 TAKE ONE TABLET BY MOUTH EVERY D AY TAKE ONE TABLET BY MOUTH EVERY DAY SOLD: 09/10/2019 [facility] montelukast 10 MG Oral Tablet MONTELUKAST SODIUM 08/09/2019 12:0 0:00 AM EDT tablet 30 TAKE ONE TABLET BY MOUTH EVERY D AY TAKE ONE TABLET BY MOUTH EVERY DAY SOLD: 10/07/2019 [facility] montelukast 10 MG Oral Tablet MONTELUKAST SODIUM 08/09/2019 12:0 0:00 AM EDT tablet 30 TAKE ONE TABLET BY MOUTH EVERY D AY TAKE ONE TABLET BY MOUTH EVERY DAY SOLD: 08/13/2019 [facility] tizanidine 4 MG Oral Tablet Tizanidine HCl 4 MG Tizanidine H Cl 4 MG 07/31/2019 12:00:00 AM EDT active 1 tablet as needed [facility] ([facility]) 4 mg 07/31/2019 12:00:00 AM EDT tablet 120 TAKE 1 TABLET BY MOUTH EVERY 6 HOURS NEEDED TAKE 1 TABLET BY MOUTH EVERY 6 HOURS NEEDED SOLD: [facility] 4 mg 07/31/2019 12:00:00 AM EDT tablet 120 TAKE 1 TABLET BY MOUTH EVERY 6 HOURS NEEDED TAKE 1 TABLET BY MOUTH EVERY 6 HOURS NEEDED SOLD: 020 [facility] 4 mg 07/31/2019 12:00:00 AM EDT tablet 120 TAKE 1 TABLET BY MOUTH EVERY 6 HOURS NEEDED TAKE 1 TABLET BY MOUTH EVERY 6 HOURS NEEDED SOLD: [facility] Cyclobenzaprine hydrochloride 10 MG Oral Tablet Cyclob enzaprine HCl 10 MG Cyclobenzaprine HCl 10 MG 07/27/2019 12:00:00 AM EDT active 1 TAB eCW1 ([facility]) Cyclobenzaprine hydrochloride 10 MG Oral Tablet Cyclob enzaprine HCl 10 MG Cyclobenzaprine HCl 10 MG 07/27/2019 12:00:00 AM EDT active 1 TAB eCW1 ([facility]) Ciprofloxacin 250 MG Oral Tablet [Cipro] Cipro 250 MG Oral Tablet Cipro 250 MG Oral Tablet 07/18/2019 12:00:00 AM EDT aborte d ciprofloxacin 250 MG Oral Tablet [Cipro] [facility] 250 mg 07/18/2019 12:00:00 AM EDT tablet 20 TAKE TWO TABLETS BY MOUTH TWICE A DAY FOR 5 DAYS TAKE TWO TABLETS BY MOUTH TWICE A DAY FOR 5 DAYS SOLD: 07/18/2019 [facility] buspirone hydrochloride 10 MG Oral Tablet BUSPIRONE HCL 07/13/2019 12:00:00 AM EDT tablet 60 TAKE ONE TABLET BY MOUTH TWI CE A DAY TAKE ONE TABLET BY MOUTH TWICE A DAY SOLD: 07/14/2019 [facility] buspirone hydrochloride 10 MG Oral Tablet BUSPIRONE HCL 07/13/2019 12:00:00 AM EDT tablet 60 TAKE ONE TABLET BY MOUTH TWI CE A DAY TAKE ONE TABLET BY MOUTH TWICE A DAY SOLD: 08/13/2019 [facility] 100 mg 07/11/2019 12:00:00 AM EDT capsule 90 TAKE ONE CAPSULE BY MOUTH THREE TIMES A DAY TAKE ONE CAPSULE BY MOUTH THREE TIMES A DAY SOLD: 08/13/2019 [facility] Spironolactone 25 MG Oral Tablet Spironolactone 25 MG Oral T ablet 07/11/2019 12:00:00 AM EDT 1 aborted spirono lactone 25 MG Oral Tablet [facility]) montelukast 10 MG Oral Tablet [Singulair] Singulair 10 MG Oral Tablet Singulair 10 MG Oral Tablet 07/11/2019 12:00:00 AM EDT aborted montelukast 10 MG Oral Tablet [Singulair] [place] ([facility]) Fluticasone Propionate 50 MCG/ACT Nasal Suspension Flu ticasone Propionate 50 MCG/ACT Nasal Suspension 07/11/2019 12:00:00 AM EDT aborted fluticasone propionate 0.05 MG/ACTUAT Metered Dose Nasal [facility]) Nystatin 100 UNT/MG Topical Powder 100,000 unit/gram [place]STATI N 07/11/2019 12:00:00 AM EDT powder 15 APPLY TO AFFECTE D AREA(S) OF UNDER BREASTS & GROIN TWO TIMES A DAY APPLY TO AFFECTED AREA(S) OF UNDER BREAS TS & GROIN TWO TIMES A DAY SOLD: 07/14/2019 [facility] cetirizine hydrochloride 10 MG Oral Tablet Cetirizine HCl 10 MG Oral Tablet Cetirizine HCl 10 MG Oral Tablet 07/11/2019 12:00:00 AM EDT aborted cetirizine hydrochloride 10 MG Oral Tablet [place] ([facility]) Docusate Sodium 100 MG Oral Capsule [Dul colax Stool Softener] Dulcolax Stool Softener 100 MG Oral Capsule Dulcolax Stool Softener 100 MG Oral Capsule 07/11/2019 12:00:00 AM EDT aborted docusate sodium 100 MG Oral Capsule [Dulcolax Stool Softener] [facility]) 100 mg 07/11/2019 12:00:00 AM EDT capsule 90 TAKE ONE CAPSULE BY MOUTH THREE TIMES A DAY TAKE ONE CAPSULE BY MOUTH THREE TIMES A DAY SOLD: 09/10/2019 [facility] Lancets Ultra Fine Miscellaneous Lancets Ultra Fine Miscella neous 07/11/2019 12:00:00 AM EDT aborted Lancets Ultra Fine [facility]) 10 mg 07/11/2019 12:00:00 AM EDT tablet 30 TAKE ONE TABLET BY MOUTH EVERY DAY TAKE ONE TABLET BY MOUTH EVERY DAY SOLD: 07/14/2019 [facility] Losartan Potassium 25 MG Oral Tablet Losartan Potassium 25 M G Oral Tablet 07/11/2019 12:00:00 AM EDT aborted losartan potassium 25 MG Oral Tablet [place] ([facility]) Metformin hydrochloride 1000 MG Oral Tablet metFORMIN HCl 1000 MG Oral Tablet metFORMIN HCl 1000 MG Oral Tablet 07/11/2019 12:00:00 AM EDT aborted metformin hydrochloride 1000 MG Oral Tab let [facility]) 100 mg 07/11/2019 12:00:00 AM EDT capsule 90 TAKE ONE CAPSULE BY MOUTH THREE TIMES A DAY TAKE ONE CAPSULE BY MOUTH THREE TIMES A DAY SOLD: 07/14/2019 [facility] 25 mg 07/11/2019 12:00:00 AM EDT tablet 30 TAKE ONE TABLET BY MOUTH EVERY DAY TAKE ONE TABLET BY MOUTH EVERY DAY SOLD: 07/14/2019 [facility] 25 mg 07/11/2019 12:00:00 AM EDT tablet 30 TAKE ONE TABLET BY MOUTH EVERY DAY TAKE ONE TABLET BY MOUTH EVERY DAY SOLD: 09/10/2019 [facility] 25 mg 07/11/2019 12:00:00 AM EDT tablet 30 TAKE ONE TABLET BY MOUTH EVERY DAY TAKE ONE TABLET BY MOUTH EVERY DAY SOLD: 08/13/2019 [facility] Sumatriptan 50 MG Oral Tablet [Imitrex] Imitrex 50 MG Oral Tablet Imitrex 50 MG Oral Tablet 07/11/2019 12:00:00 AM EDT aborte d sumatriptan 50 MG Oral Tablet [Imitrex] [place] ([facility]) OneTouch Ultra Blue In Vitro Strip OneTouch Ultra Blue In Vi tro Strip 07/11/2019 12:00:00 AM EDT aborted OneTou ch Ultra Blue [place] ([facility]) Nystatin 100 UNT/MG Topical Powder Nystatin [id number] UNI T/GM External Powder Nystatin [id number] UNIT/GM External Powder 07/11/2019 12:00:00 AM EDT aborted nystatin 100 UNT/MG Topical Powd er [place] ([facility]) Furosemide 40 MG Oral Tablet [Lasix] Lasix 40 MG Oral Tablet Lasix 40 MG Oral Tablet 07/11/2019 12:00:00 AM EDT aborted furosemide 40 MG Oral Tablet [Lasix] [facility]) 50 mcg/actuation 07/11/2019 12:00:00 AM EDT spray,suspension 16 SPRAY TWO SPRAYS IN EACH NOSTRIL EVERY DAY DIRECTED SPRAY TWO SPRAYS IN EACH NOSTRIL EVERY DAY DIRECTED SOLD: 07/14/2019 [facility] 25 mg 07/11/2019 12:00:00 AM EDT tablet 30 TAKE ONE TABLET BY MOUTH EVERY DAY TAKE ONE TABLET BY MOUTH EVERY DAY SOLD: 08/13/2019 [facility] 25 mg 07/11/2019 12:00:00 AM EDT tablet 30 TAKE ONE TABLET BY MOUTH EVERY DAY TAKE ONE TABLET BY MOUTH EVERY DAY SOLD: 07/14/2019 [facility] 40 mg 07/11/2019 12:00:00 AM EDT tablet 30 TAKE ONE TABLET BY MOUTH EVERY DAY TAKE ONE TABLET BY MOUTH EVERY DAY SOLD: 07/14/2019 [facility] 40 mg 07/11/2019 12:00:00 AM EDT tablet 30 TAKE ONE TABLET BY MOUTH EVERY DAY TAKE ONE TABLET BY MOUTH EVERY DAY SOLD: 09/10/2019 [facility] 50 mcg/actuation 07/11/2019 12:00:00 AM EDT spray,suspension 16 SPRAY TWO SPRAYS IN EACH NOSTRIL EVERY DAY DIRECTED SPRAY TWO SPRAYS IN EACH NOSTRIL EVERY DAY DIRECTED SOLD: 08/13/2019 [facility] 50 mcg/actuation 07/11/2019 12:00:00 AM EDT spray,suspension 16 SPRAY TWO SPRAYS IN EACH NOSTRIL EVERY DAY DIRECTED SPRAY TWO SPRAYS IN EACH NOSTRIL EVERY DAY DIRECTED SOLD: 09/10/2019 [facility] 25 mg 07/11/2019 12:00:00 AM EDT tablet 30 TAKE ONE TABLET BY MOUTH EVERY DAY TAKE ONE TABLET BY MOUTH EVERY DAY SOLD: 09/10/2019 [facility] Nystatin 100 UNT/MG Topical Powder 100,000 unit/gram [place]STATI N 07/11/2019 12:00:00 AM EDT powder 15 APPLY TO AFFECTE D AREA(S) OF UNDER BREASTS & GROIN TWO TIMES A DAY APPLY TO AFFECTED AREA(S) OF UNDER BREAS TS & GROIN TWO TIMES A DAY SOLD: 08/13/2019 [facility] 40 mg 07/11/2019 12:00:00 AM EDT tablet 30 TAKE ONE TABLET BY MOUTH EVERY DAY TAKE ONE TABLET BY MOUTH EVERY DAY SOLD: 08/13/2019 [facility] Nystatin 100 UNT/MG Topical Powder 100,000 unit/gram [place]STATI N 07/11/2019 12:00:00 AM EDT powder 15 APPLY TO AFFECTE D AREA(S) OF UNDER BREASTS & GROIN TWO TIMES A DAY APPLY TO AFFECTED AREA(S) OF UNDER BREAS TS & GROIN TWO TIMES A DAY SOLD: 09/07/2019 [facility] 10 mg 07/11/2019 12:00:00 AM EDT tablet 30 TAKE ONE TABLET BY MOUTH EVERY DAY TAKE ONE TABLET BY MOUTH EVERY DAY SOLD: 09/10/2019 [facility] 10 mg 07/11/2019 12:00:00 AM EDT tablet 30 TAKE ONE TABLET BY MOUTH EVERY DAY TAKE ONE TABLET BY MOUTH EVERY DAY SOLD: 08/13/2019 [facility] 200 ACTUAT Albuterol 0.09 MG/ACTUAT Mete red Dose Inhaler [Ventolin] Ventolin HFA 108 (90 Base) MCG/ACT Inhalation Aerosol Solution Ventolin HFA 108 (90 Base) MCG/ACT Inhalation Aerosol Solution 07/03/2019 12:00:00 AM EDT 18 aborted [id number] ACTUAT albuterol 0.09 MG/ACTUAT Metered Dose Inhaler [Ventolin] [place] ([facility]) OneTouch Delica Lancets 33G Miscellaneous OneTouch Del ica Lancets 33G Miscellaneous 07/03/2019 12:00:00 AM EDT abor rubi OneTouch Delica Lancets 33G [place] ([facility]) 33 gauge 07/03/2019 12:00:00 AM EDT misc 100 TEST THREE TIMES A DAY TEST THREE TIMES A DAY SOLD: 07/06/2019 [facility] 33 gauge 07/03/2019 12:00:00 AM EDT misc 100 TEST THREE TIMES A DAY TEST THREE TIMES A DAY SOLD: 08/08/2019 [facility] 90 mcg/actuation 07/03/2019 12:00:00 AM EDT HFA aerosol inha ler 18 INHALE TWO PUFFS BY MOUTH FOUR TIMES A DAY NEEDED INHALE TWO PUFFS BY MOUTH FOUR TIMES A DAY NEEDED SOLD: 07/06/2019 [facility] 33 gauge 07/03/2019 12:00:00 AM EDT misc 100 TEST THREE TIMES A DAY TEST THREE TIMES A DAY SOLD: 10/07/2019 [facility] 33 gauge 07/03/2019 12:00:00 AM EDT misc 100 TEST THREE TIMES A DAY TEST THREE TIMES A DAY SOLD: 09/07/2019 [facility] 20 mg 07/03/2019 12:00:00 AM EDT tablet 10 TAKE 1 TABLET BY MOUTH TWICE A DAY FOR 5 DAYS TAKE 1 TABLET BY MOUTH TWICE A DAY FOR 5 DAYS SOLD: 07/03/2019 [facility] 875-125 mg 07/03/2019 12:00:00 AM EDT tablet 20 TAKE 1 TABLET BY MOUTH TWICE A DAY DIRECTED FOR 10 DAYS TAKE 1 TABLET BY MOUTH TWICE A DAY DI RECTED FOR 10 DAYS SOLD: 07/03/2019 [facility] Amoxicillin 875 MG / Clavulanate 125 MG Oral Tablet Am oxicillin/Clavulanate Potassium 07/03/2019 12:00:00 AM EDT ORAL completed [facility] ([facility]) Prednisone 20 MG Oral Tablet Prednisone 07/03/2019 12:00:00 AM EDT completed [facility] ([facility]) 90 mcg/actuation 07/03/2019 12:00:00 AM EDT HFA aerosol inha ler 18 INHALE TWO PUFFS BY MOUTH FOUR TIMES A DAY NEEDED INHALE TWO PUFFS BY MOUTH FOUR TIMES A DAY NEEDED SOLD: 08/27/2019 [facility] 90 mcg/actuation 07/03/2019 12:00:00 AM EDT HFA aerosol inha ler 18 INHALE TWO PUFFS BY MOUTH FOUR TIMES A DAY NEEDED INHALE TWO PUFFS BY MOUTH FOUR TIMES A DAY NEEDED SOLD: 07/28/2019 [facility] Clonidine Hydrochloride 0.1 MG Oral Tablet CLONIDINE HCL 06/29/2019 12:00:00 AM EDT tablet 15 TAKE ONE TABLET BY MOUTH AKBRA RY 8 HOURS NEEDED FOR 5 DAYS TAKE ONE TABLET BY MOUTH EVERY 8 HOURS NEEDED FOR 5 DAYS SOLD: 06/29/2019 [facility] Clonidine Hydrochloride 0.1 MG Oral Tablet Clonidine H Cl 0.1 MG Clonidine HCl 0.1 MG 06/28/2019 12:00:00 AM EDT suspended 1 tablet eCW1 ([facility]) Clonidine Hydrochloride 0.1 MG Oral Tablet Clonidine H Cl 0.1 MG Clonidine HCl 0.1 MG 06/28/2019 12:00:00 AM EDT 1.0 {tablet} suspe nded Clonidine HCl 0.1 MG eCW1 ([facility]) Clonidine Hydrochloride 0.1 MG Oral Tablet Clonidine H Cl 0.1 MG Clonidine HCl 0.1 MG 06/28/2019 12:00:00 AM EDT 1.0 {tablet} suspe nded Clonidine HCl 0.1 MG eCW1 ([facility]) Clonidine Hydrochloride 0.1 MG Oral Tablet Clonidine H Cl 0.1 MG Clonidine HCl 0.1 MG 06/28/2019 12:00:00 AM EDT suspended 1 tablet eCW1 ([facility]) Clonidine Hydrochloride 0.1 MG Oral Tablet Clonidine H Cl 0.1 MG Clonidine HCl 0.1 MG 06/28/2019 12:00:00 AM EDT 1.0 {tablet} suspe nded Clonidine HCl 0.1 MG eCW1 ([facility]) Clonidine Hydrochloride 0.1 MG Oral Tablet Clonidine H Cl 0.1 MG Clonidine HCl 0.1 MG 06/28/2019 12:00:00 AM EDT 1.0 {tablet} suspe nded Clonidine HCl 0.1 MG eCW1 ([facility]) Clonidine Hydrochloride 0.1 MG Oral Tablet Clonidine H Cl 0.1 MG Clonidine HCl 0.1 MG 06/28/2019 12:00:00 AM EDT 1.0 {tablet} suspe nded Clonidine HCl 0.1 MG eCW1 ([facility]) Clonidine Hydrochloride 0.1 MG Oral Tablet Clonidine H Cl 0.1 MG Clonidine HCl 0.1 MG 06/28/2019 12:00:00 AM EDT 1.0 {tablet} suspe nded Clonidine HCl 0.1 MG eCW1 ([facility]) Clonidine Hydrochloride 0.1 MG Oral Tablet Clonidine H Cl 0.1 MG Clonidine HCl 0.1 MG 06/28/2019 12:00:00 AM EDT 1.0 {tablet} suspe nded Clonidine HCl 0.1 MG eCW1 ([facility]) Clonidine Hydrochloride 0.1 MG Oral Tablet Clonidine H Cl 0.1 MG Clonidine HCl 0.1 MG 06/28/2019 12:00:00 AM EDT 1.0 {tablet} suspe nded Clonidine HCl 0.1 MG eCW1 ([facility]) Clonidine Hydrochloride 0.1 MG Oral Tablet Clonidine H Cl 0.1 MG Clonidine HCl 0.1 MG 06/28/2019 12:00:00 AM EDT active 1 tablet eCW1 ([facility]) Clonidine Hydrochloride 0.1 MG Oral Tablet Clonidine H Cl 0.1 MG Clonidine HCl 0.1 MG 06/28/2019 12:00:00 AM EDT suspended 1 tablet eCW1 ([facility]) Clonidine Hydrochloride 0.1 MG Oral Tablet Clonidine H Cl 0.1 MG Clonidine HCl 0.1 MG 06/28/2019 12:00:00 AM EDT suspended 1 tablet eCW1 ([facility]) Clonidine Hydrochloride 0.1 MG Oral Tablet Clonidine H Cl 0.1 MG Clonidine HCl 0.1 MG 06/28/2019 12:00:00 AM EDT 1.0 {tablet} suspe nded Clonidine HCl 0.1 MG eCW1 ([facility]) Clonidine Hydrochloride 0.1 MG Oral Tablet Clonidine H Cl 0.1 MG Clonidine HCl 0.1 MG 06/28/2019 12:00:00 AM EDT active 1 tablet eCW1 ([facility]) Clonidine Hydrochloride 0.1 MG Oral Tablet Clonidine H Cl 0.1 MG Clonidine HCl 0.1 MG 06/28/2019 12:00:00 AM EDT 1.0 {tablet} activ e Clonidine HCl 0.1 MG eCW1 ([facility]) 100 mg 06/23/2019 12:00:00 AM EST capsule 6 TAKE ONE CAPSULE BY MOUTH TWICE A DAY FOR 3 DAYS TAKE ONE CAPSULE BY MOUTH TWICE A DAY FOR 3 DAYS SOLD: 06/24/2019 [facility] 5 mg 06/16/2019 12:00:00 AM EST tablet 50 TAKE 1 TABLET BY MOUTH EVERY 8 HOURS NEEDED MAX DAILY DOSE = 3 TABLETS (50 TABLET SHOULD LAST 30 DAYS) TAKE 1 TABLET BY MOUTH EVERY 8 HOURS NEEDED MAX DAILY DOSE = 3 TABLETS (50 TABLET SHOULD LAST 30 DAYS) SOLD: 06/17/2019 [facility] 25 mg 06/15/2019 12:00:00 AM EST tablet 30 TAKE ONE TABLET BY MOUTH EVERY DAY TAKE ONE TABLET BY MOUTH EVERY DAY SOLD: 07/09/2019 [facility] gabapentin 800 MG Oral Tablet GABAPENTIN 06/15/2019 12:00:00 AM EST ta blet 90 TAKE 1 TABLET BY MOUTH 3 TIMES A DAY FOR PAIN MAX DAILY DOSE = 3 TABLETS TAKE 1 TABLET BY MOUTH 3 TIMES A DAY FOR PAIN MAX DAILY DOSE = 3 TABLETS SOLD: 06/16/2019 [facility] Amitriptyline Hydrochloride 25 MG Oral Tablet AMITRIPTYLINE HCL 06/15/2019 12:00:00 AM EST tablet 30 TAKE ONE TABLET BY MOUTH EVERY DAY TAKE ONE TABLET BY MOUTH EVERY DAY SOLD: 08/08/2019 [facility] Amitriptyline Hydrochloride 25 MG Oral Tablet AMITRIPTYLINE HCL 06/15/2019 12:00:00 AM EST tablet 30 TAKE ONE TABLET BY MOUTH EVERY DAY TAKE ONE TABLET BY MOUTH EVERY DAY SOLD: 06/16/2019 [facility] gabapentin 800 MG Oral Tablet GABAPENTIN 06/15/2019 12:00:00 AM EST ta blet 90 TAKE 1 TABLET BY MOUTH 3 TIMES A DAY FOR PAIN MAX DAILY DOSE = 3 TABLETS TAKE 1 TABLET BY MOUTH 3 TIMES A DAY FOR PAIN MAX DAILY DOSE = 3 TABLETS SOLD: 07/14/2019 [facility] gabapentin 800 MG Oral Tablet GABAPENTIN 06/15/2019 12:00:00 AM EST ta blet 90 TAKE 1 TABLET BY MOUTH 3 TIMES A DAY FOR PAIN MAX DAILY DOSE = 3 TABLETS TAKE 1 TABLET BY MOUTH 3 TIMES A DAY FOR PAIN MAX DAILY DOSE = 3 TABLETS SOLD: 08/13/2019 [facility] 30 mg 06/01/2019 12:00:00 AM EST capsule,delayed release (DR/EC) 30 TAKE ONE CAPSULE BY MOUTH EVERY EVENING TAKE ONE CAPSULE BY MOUTH EVERY EVENING SOLD: 07/28/2019 [facility] 30 mg 06/01/2019 12:00:00 AM EST capsule,delayed release (DR/EC) 30 TAKE ONE CAPSULE BY MOUTH EVERY EVENING TAKE ONE CAPSULE BY MOUTH EVERY EVENING SOLD: 06/29/2019 [facility] 60 mg 06/01/2019 12:00:00 AM EST capsule,delayed release (DR/EC) 30 TAKE ONE CAPSULE BY MOUTH EVERY EVENING TAKE ONE CAPSULE BY MOUTH EVERY EVENING SOLD: 06/02/2019 [facility] 30 mg 06/01/2019 12:00:00 AM EST capsule,delayed release (DR/EC) 30 TAKE ONE CAPSULE BY MOUTH EVERY EVENING TAKE ONE CAPSULE BY MOUTH EVERY EVENING SOLD: 06/02/2019 [facility] 60 mg 06/01/2019 12:00:00 AM EST capsule,delayed release (DR/EC) 30 TAKE ONE CAPSULE BY MOUTH EVERY EVENING TAKE ONE CAPSULE BY MOUTH EVERY EVENING SOLD: 06/29/2019 [facility] 60 mg 06/01/2019 12:00:00 AM EST capsule,delayed release (DR/EC) 30 TAKE ONE CAPSULE BY MOUTH EVERY EVENING TAKE ONE CAPSULE BY MOUTH EVERY EVENING SOLD: 07/28/2019 [facility] BLOOD SUGAR DIAGNOSTIC 05/29/2019 12:00:00 AM EST strip 100 TEST THREE TIMES A DAY TEST THREE TIMES A DAY SOLD: 08/27/2019 [facility] BLOOD SUGAR DIAGNOSTIC 05/29/2019 12:00:00 AM EST strip 100 TEST THREE TIMES A DAY TEST THREE TIMES A DAY SOLD: 07/14/2019 [facility] BLOOD SUGAR DIAGNOSTIC 05/29/2019 12:00:00 AM EST strip 100 TEST THREE TIMES A DAY TEST THREE TIMES A DAY SOLD: 06/02/2019 [facility] OneTouch Ultra Blue In Vitro Strip OneTouch Ultra Blue In Vi tro Strip 05/29/2019 12:00:00 AM EST aborted OneTou Ultra Blue [place] ([facility]) 40 mg 05/27/2019 12:00:00 AM EST tablet 30 TAKE ONE TABLET BY MOUTH EVERY DAY TAKE ONE TABLET BY MOUTH EVERY DAY SOLD: 08/27/2019 [facility] 40 mg 05/27/2019 12:00:00 AM EST tablet 30 TAKE ONE TABLET BY MOUTH EVERY DAY TAKE ONE TABLET BY MOUTH EVERY DAY SOLD: 06/29/2019 [facility] 40 mg 05/27/2019 12:00:00 AM EST tablet 30 TAKE ONE TABLET BY MOUTH EVERY DAY TAKE ONE TABLET BY MOUTH EVERY DAY SOLD: 06/02/2019 [facility] 200 mg 05/25/2019 12:00:00 AM EST capsule 90 TAKE ONE CAPSULE BY MOUTH THREE TIMES A DAY EVERY 8 HOURS MAXIMUM DAILY DOSE = 3 CAPSULES TAKE ONE CAPSULE BY MOUTH THREE TIMES A DAY EVERY 8 HOURS MAXIMUM DAILY DOSE = 3 CAPSULES SOLD: 05/25/2019 [facility] 15 mg 05/25/2019 12:00:00 AM EST tablet extended release 60 TAKE 1 TABLET BY MOUTH EVERY 12 HOURS MAXIMUM DAILY DOSE = 2 TABLETS TAKE 1 TABLET BY MOUTH EVERY 12 HOURS MAXIMUM DAILY DOSE = 2 TABLETS SOLD: 05/27/2019 [facility] 200 mg 05/25/2019 12:00:00 AM EST capsule 90 TAKE ONE CAPSULE BY MOUTH THREE TIMES A DAY EVERY 8 HOURS MAXIMUM DAILY DOSE = 3 CAPSULES TAKE ONE CAPSULE BY MOUTH THREE TIMES A DAY EVERY 8 HOURS MAXIMUM DAILY DOSE = 3 CAPSULES SOLD: 07/06/2019 [facility] 10 mg 05/25/2019 12:00:00 AM EST tablet 30 TAKE ONE TABLET BY MOUTH EVERY 8 HOURS DIRECTED NEEDED FOR PAIN (30 TABLETS SHOULD LAST FOR 30 DAYS) TAKE ONE TABLET BY MOUTH EVERY 8 HOURS DIRECTED NEEDED FOR PAIN (30 TABLETS SHOULD LAST FOR 30 DAYS) SOLD: 06/22/2019 [facility] 10 mg 05/25/2019 12:00:00 AM EST tablet 30 TAKE ONE TABLET BY MOUTH EVERY 8 HOURS DIRECTED NEEDED FOR PAIN (30 TABLETS SHOULD LAST FOR 30 DAYS) TAKE ONE TABLET BY MOUTH EVERY 8 HOURS DIRECTED NEEDED FOR PAIN (30 TABLETS SHOULD LAST FOR 30 DAYS) SOLD: 07/18/2019 [facility] 200 mg 05/25/2019 12:00:00 AM EST capsule 90 TAKE ONE CAPSULE BY MOUTH THREE TIMES A DAY EVERY 8 HOURS MAXIMUM DAILY DOSE = 3 CAPSULES TAKE ONE CAPSULE BY MOUTH THREE TIMES A DAY EVERY 8 HOURS MAXIMUM DAILY DOSE = 3 CAPSULES SOLD: 08/13/2019 [facility] 10 mg 05/25/2019 12:00:00 AM EST tablet 30 TAKE ONE TABLET BY MOUTH EVERY 8 HOURS DIRECTED NEEDED FOR PAIN (30 TABLETS SHOULD LAST FOR 30 DAYS) TAKE ONE TABLET BY MOUTH EVERY 8 HOURS DIRECTED NEEDED FOR PAIN (30 TABLETS SHOULD LAST FOR 30 DAYS) SOLD: 05/25/2019 [facility] Oxycodone Hydrochloride 5 MG Oral Tablet Oxycodone HCl 5 MG Oxycodone HCl 5 MG 05/24/2019 12:00:00 AM EST 1.0 {tablet_as_needed} suspended Oxycodone HCl 5 MG eCW1 ([facility]) Oxycodone Hydrochloride 5 MG Oral Tablet Oxycodone HCl 5 MG Oxycodone HCl 5 MG 05/24/2019 12:00:00 AM EST 1.0 {tablet_as_needed} suspended Oxycodone HCl 5 MG eCW1 ([facility]) Morphine Sulfate 15 MG Extended Release Oral Tablet Mo rphine Sulfate ER 15 MG Morphine Sulfate ER 15 MG 05/24/2019 12:00:00 AM EST suspended 1 tablet eCW1 ([facility]) Morphine Sulfate 15 MG Extended Release Oral Tablet Mo rphine Sulfate ER 15 MG Morphine Sulfate ER 15 MG 05/24/2019 12:00:00 AM EST 1.0 {tablet} suspended Morphine Sulfate ER 15 MG eCW1 ( [facility]) Morphine Sulfate 15 MG Extended Release Oral Tablet Mo rphine Sulfate ER 15 MG Morphine Sulfate ER 15 MG 05/24/2019 12:00:00 AM EST 1.0 {tablet} suspended Morphine Sulfate ER 15 MG eCW1 ( [facility]) Morphine Sulfate 15 MG Extended Release Oral Tablet Mo rphine Sulfate ER 15 MG Morphine Sulfate ER 15 MG 05/24/2019 12:00:00 AM EST 1.0 {tablet} suspended Morphine Sulfate ER 15 MG eCW1 ( [facility]) Oxycodone Hydrochloride 5 MG Oral Tablet Oxycodone HCl 5 MG Oxycodone HCl 5 MG 05/24/2019 12:00:00 AM EST 1.0 {tablet_as_needed} suspended Oxycodone HCl 5 MG eCW1 ([facility]) Morphine Sulfate 15 MG Extended Release Oral Tablet Mo rphine Sulfate ER 15 MG Morphine Sulfate ER 15 MG 05/24/2019 12:00:00 AM EST suspended 1 tablet eCW1 ([facility]) Oxycodone Hydrochloride 5 MG Oral Tablet Oxycodone HCl 5 MG Oxycodone HCl 5 MG 05/24/2019 12:00:00 AM EST suspended 1 tablet as needed eCW1 ([facility]) Morphine Sulfate 15 MG Extended Release Oral Tablet Mo rphine Sulfate ER 15 MG Morphine Sulfate ER 15 MG 05/24/2019 12:00:00 AM EST 1.0 {tablet} suspended Morphine Sulfate ER 15 MG eCW1 ( [facility]) Morphine Sulfate 15 MG Extended Release Oral Tablet Mo rphine Sulfate ER 15 MG Morphine Sulfate ER 15 MG 05/24/2019 12:00:00 AM EST active 1 tablet eCW1 ([facility]) Morphine Sulfate 15 MG Extended Release Oral Tablet Mo rphine Sulfate ER 15 MG Morphine Sulfate ER 15 MG 05/24/2019 12:00:00 AM EST 1.0 {tablet} suspended Morphine Sulfate ER 15 MG eCW1 ( [facility]) Oxycodone Hydrochloride 5 MG Oral Tablet Oxycodone HCl 5 MG Oxycodone HCl 5 MG 05/24/2019 12:00:00 AM EST 1.0 {tablet_as_needed} suspended Oxycodone HCl 5 MG eCW1 ([facility]) Morphine Sulfate 15 MG Extended Release Oral Tablet Mo rphine Sulfate ER 15 MG Morphine Sulfate ER 15 MG 05/24/2019 12:00:00 AM EST suspended 1 tablet eCW1 ([facility]) Morphine Sulfate 15 MG Extended Release Oral Tablet Mo rphine Sulfate ER 15 MG Morphine Sulfate ER 15 MG 05/24/2019 12:00:00 AM EST suspended 1 tablet eCW1 ([facility]) Oxycodone Hydrochloride 5 MG Oral Tablet Oxycodone HCl 5 MG Oxycodone HCl 5 MG 05/24/2019 12:00:00 AM EST 1.0 {tablet_as_needed} suspended Oxycodone HCl 5 MG eCW1 ([facility]) Oxycodone Hydrochloride 5 MG Oral Tablet Oxycodone HCl 5 MG Oxycodone HCl 5 MG 05/24/2019 12:00:00 AM EST active 1 tablet as needed eCW1 ([facility]) Morphine Sulfate 15 MG Extended Release Oral Tablet Mo rphine Sulfate ER 15 MG Morphine Sulfate ER 15 MG 05/24/2019 12:00:00 AM EST 1.0 {tablet} suspended Morphine Sulfate ER 15 MG eCW1 ( [facility]) Oxycodone Hydrochloride 5 MG Oral Tablet Oxycodone HCl 5 MG Oxycodone HCl 5 MG 05/24/2019 12:00:00 AM EST active 1 tablet as needed eCW1 ([facility]) Oxycodone Hydrochloride 5 MG Oral Tablet Oxycodone HCl 5 MG Oxycodone HCl 5 MG 05/24/2019 12:00:00 AM EST 1.0 {tablet_as_needed} suspended Oxycodone HCl 5 MG eCW1 ([facility]) Oxycodone Hydrochloride 5 MG Oral Tablet Oxycodone HCl 5 MG Oxycodone HCl 5 MG 05/24/2019 12:00:00 AM EST 1.0 {tablet_as_needed} suspended Oxycodone HCl 5 MG eCW1 ([facility]) Oxycodone Hydrochloride 5 MG Oral Tablet Oxycodone HCl 5 MG Oxycodone HCl 5 MG 05/24/2019 12:00:00 AM EST 1.0 {tablet_as_needed} suspended Oxycodone HCl 5 MG eCW1 ([facility]) Morphine Sulfate 15 MG Extended Release Oral Tablet Mo rphine Sulfate ER 15 MG Morphine Sulfate ER 15 MG 05/24/2019 12:00:00 AM EST 1.0 {tablet} suspended Morphine Sulfate ER 15 MG eCW1 ( [facility]) Oxycodone Hydrochloride 5 MG Oral Tablet Oxycodone HCl 5 MG Oxycodone HCl 5 MG 05/24/2019 12:00:00 AM EST suspended 1 tablet as needed eCW1 ([facility]) Morphine Sulfate 15 MG Extended Release Oral Tablet Mo rphine Sulfate ER 15 MG Morphine Sulfate ER 15 MG 05/24/2019 12:00:00 AM EST 1.0 {tablet} suspended Morphine Sulfate ER 15 MG eCW1 ( [facility]) Morphine Sulfate 15 MG Extended Release Oral Tablet Mo rphine Sulfate ER 15 MG Morphine Sulfate ER 15 MG 05/24/2019 12:00:00 AM EST 1.0 {tablet} suspended Morphine Sulfate ER 15 MG eCW1 ( [facility]) Morphine Sulfate 15 MG Extended Release Oral Tablet Mo rphine Sulfate ER 15 MG Morphine Sulfate ER 15 MG 05/24/2019 12:00:00 AM EST suspended 1 tablet eCW1 ([facility]) Oxycodone Hydrochloride 5 MG Oral Tablet Oxycodone HCl 5 MG Oxycodone HCl 5 MG 05/24/2019 12:00:00 AM EST 1.0 {tablet_as_needed} suspended Oxycodone HCl 5 MG eCW1 ([facility]) Oxycodone Hydrochloride 5 MG Oral Tablet Oxycodone HCl 5 MG Oxycodone HCl 5 MG 05/24/2019 12:00:00 AM EST suspended 1 tablet as needed eCW1 ([facility]) Oxycodone Hydrochloride 5 MG Oral Tablet Oxycodone HCl 5 MG Oxycodone HCl 5 MG 05/24/2019 12:00:00 AM EST suspended 1 tablet as needed eCW1 ([facility]) Oxycodone Hydrochloride 5 MG Oral Tablet Oxycodone HCl 5 MG Oxycodone HCl 5 MG 05/24/2019 12:00:00 AM EST suspended 1 tablet as needed eCW1 ([facility]) Morphine Sulfate 15 MG Extended Release Oral Tablet Mo rphine Sulfate ER 15 MG Morphine Sulfate ER 15 MG 05/24/2019 12:00:00 AM EST 1.0 {tablet} suspended Morphine Sulfate ER 15 MG eCW1 ( [facility]) Morphine Sulfate 15 MG Extended Release Oral Tablet Mo rphine Sulfate ER 15 MG Morphine Sulfate ER 15 MG 05/24/2019 12:00:00 AM EST active 1 tablet eCW1 ([facility]) Oxycodone Hydrochloride 5 MG Oral Tablet Oxycodone HCl 5 MG Oxycodone HCl 5 MG 05/24/2019 12:00:00 AM EST 1.0 {tablet_as_needed} suspended Oxycodone HCl 5 MG eCW1 ([facility]) 10 mg 05/21/2019 12:00:00 AM EST tablet 30 TAKE ONE TABLET BY MOUTH EVERY DAY TAKE ONE TABLET BY MOUTH EVERY DAY SOLD: 06/22/2019 [facility] 10 mg 05/21/2019 12:00:00 AM EST tablet 30 TAKE ONE TABLET BY MOUTH EVERY DAY TAKE ONE TABLET BY MOUTH EVERY DAY SOLD: 05/23/2019 [facility] 10 mg 05/21/2019 12:00:00 AM EST tablet 30 TAKE ONE TABLET BY MOUTH EVERY DAY TAKE ONE TABLET BY MOUTH EVERY DAY SOLD: 07/18/2019 [facility] 300 mg 05/20/2019 12:00:00 AM EST capsule 20 TAKE ONE CAPSULE BY MOUTH TWICE A DAY TAKE ONE CAPSULE BY MOUTH TWICE A DAY SOLD: 05/20/2019 [facility] montelukast 10 MG Oral Tablet MONTELUKAST SODIUM 05/19/2019 12:0 0:00 AM EST tablet 30 TAKE ONE TABLET BY MOUTH EVERY D AY TAKE ONE TABLET BY MOUTH EVERY DAY SOLD: 05/20/2019 [facility] montelukast 10 MG Oral Tablet MONTELUKAST SODIUM 05/19/2019 12:0 0:00 AM EST tablet 30 TAKE ONE TABLET BY MOUTH EVERY D AY TAKE ONE TABLET BY MOUTH EVERY DAY SOLD: 06/16/2019 [facility] 1,000 mg 05/19/2019 12:00:00 AM EST tablet 60 TAKE ONE TABLET BY MOUTH TWICE A DAY TAKE ONE TABLET BY MOUTH TWICE A DAY SOLD: 06/16/2019 [facility] 1,000 mg 05/19/2019 12:00:00 AM EST tablet 60 TAKE ONE TABLET BY MOUTH TWICE A DAY TAKE ONE TABLET BY MOUTH TWICE A DAY SOLD: 07/14/2019 [facility] 1,000 mg 05/19/2019 12:00:00 AM EST tablet 60 TAKE ONE TABLET BY MOUTH TWICE A DAY TAKE ONE TABLET BY MOUTH TWICE A DAY SOLD: 05/20/2019 [facility] montelukast 10 MG Oral Tablet MONTELUKAST SODIUM 05/19/2019 12:0 0:00 AM EST tablet 30 TAKE ONE TABLET BY MOUTH EVERY D AY TAKE ONE TABLET BY MOUTH EVERY DAY SOLD: 07/14/2019 [facility] 5 mg 05/17/2019 12:00:00 AM EST tablet 50 TAKE 1 TABLET BY MOUTH EVERY 8 HOURS NEEDED MAX DAILY DOSE = 3 TABLETS (50 TABLETS SHOULD LAST 30 DAYS) TAKE 1 TABLET BY MOUTH EVERY 8 HOURS NEEDED MAX DAILY DOSE = 3 TABLETS (50 TABLETS SHOULD LAST 30 DAYS) SOLD: 05/17/2019 [facility] Oxycodone Hydrochloride 5 MG Oral Tablet Oxycodone HCl 5 MG Oxycodone HCl 5 MG 05/17/2019 12:00:00 AM EST active 1 tablet as needed eC1 ([facility]) 10 mg 05/04/2019 12:00:00 AM EST tablet extended release 24hr 30 TAKE ONE TABLET BY MOUTH EVERY DAY TAKE ONE TABLET BY MOUTH EVERY DAY SOLD: 06/02/2019 [facility] 10 mg 05/04/2019 12:00:00 AM EST tablet extended release 24hr 30 TAKE ONE TABLET BY MOUTH EVERY DAY TAKE ONE TABLET BY MOUTH EVERY DAY SOLD: 06/29/2019 [facility] 10 mg 05/04/2019 12:00:00 AM EST tablet extended release 24hr 30 TAKE ONE TABLET BY MOUTH EVERY DAY TAKE ONE TABLET BY MOUTH EVERY DAY SOLD: 05/06/2019 [facility] 25 mg 05/04/2019 12:00:00 AM EST tablet 30 TAKE ONE TABLET BY MOUTH EVERY DAY TAKE ONE TABLET BY MOUTH EVERY DAY SOLD: 06/29/2019 [facility] 10 mg 05/04/2019 12:00:00 AM EST tablet extended release 24hr 30 TAKE ONE TABLET BY MOUTH EVERY DAY TAKE ONE TABLET BY MOUTH EVERY DAY SOLD: 07/28/2019 [facility] 25 mg 05/04/2019 12:00:00 AM EST tablet 30 TAKE ONE TABLET BY MOUTH EVERY DAY TAKE ONE TABLET BY MOUTH EVERY DAY SOLD: 06/02/2019 [facility] 25 mg 05/04/2019 12:00:00 AM EST tablet 30 TAKE ONE TABLET BY MOUTH EVERY DAY TAKE ONE TABLET BY MOUTH EVERY DAY SOLD: 05/06/2019 [facility] 10 mg 05/04/2019 12:00:00 AM EST tablet extended release 24hr 30 TAKE ONE TABLET BY MOUTH EVERY DAY TAKE ONE TABLET BY MOUTH EVERY DAY SOLD: 10/01/2019 [facility] 10 mg 05/04/2019 12:00:00 AM EST tablet extended release 24hr 30 TAKE ONE TABLET BY MOUTH EVERY DAY TAKE ONE TABLET BY MOUTH EVERY DAY SOLD: 08/27/2019 [facility] 10 mg 05/04/2019 12:00:00 AM EST tablet extended release 24hr 30 TAKE ONE TABLET BY MOUTH EVERY DAY TAKE ONE TABLET BY MOUTH EVERY DAY SOLD: 10/31/2019 [facility] 33 gauge 05/02/2019 12:00:00 AM EST misc 100 TEST THREE TIMES A DAY TEST THREE TIMES A DAY SOLD: 05/06/2019 [facility] 33 gauge 05/02/2019 12:00:00 AM EST misc 100 TEST THREE TIMES A DAY TEST THREE TIMES A DAY SOLD: 03/17/2020 [facility] 33 gauge 05/02/2019 12:00:00 AM EST misc 100 TEST THREE TIMES A DAY TEST THREE TIMES A DAY SOLD: 02/14/2020 [facility] 40 mg 04/30/2019 12:00:00 AM EST tablet 30 TAKE ONE TABLET BY MOUTH EVERY DAY TAKE ONE TABLET BY MOUTH EVERY DAY SOLD: 05/06/2019 [facility] 40 mg 04/30/2019 12:00:00 AM EST tablet 30 TAKE ONE TABLET BY MOUTH EVERY DAY TAKE ONE TABLET BY MOUTH EVERY DAY SOLD: 11/21/2019 [facility] 150 mg 04/30/2019 12:00:00 AM EST tablet 2 TAKE 1 TABLET BY MOUTH ONCE A WEEK TAKE 1 TABLET BY MOUTH ONCE A WEEK SOLD: 05/13/2019 [facility] 150 mg 04/30/2019 12:00:00 AM EST tablet 2 TAKE 1 TABLET BY MOUTH ONCE A WEEK TAKE 1 TABLET BY MOUTH ONCE A WEEK SOLD: 05/01/2019 [facility] 40 mg 04/30/2019 12:00:00 AM EST tablet 30 TAKE ONE TABLET BY MOUTH EVERY DAY TAKE ONE TABLET BY MOUTH EVERY DAY SOLD: 10/01/2019 [facility] Inject Dexamthosone Phosphate 18274-690-26 04/28/2019 12:00:00 A M EST completed [facility] ([facility] Medication administered onsite Inject Triamcinolone Acetonide 10 ML, [facility] 7791-8222-08 04/28/2019 12:00:00 AM EST completed [facility] ([facility] Medication administered onsite 15 mg 04/23/2019 12:00:00 AM EST tablet extended release 60 TAKE ONE TABLET BY MOUTH EVERY 12 HOURS MAXIMUM DAILY DOSE = 2 TABLETS TAKE ONE TABLET BY MOUTH EVERY 12 HOURS MAXIMUM DAILY DOSE = 2 TABLETS SOLD: 04/27/2019 [facility] 90 mcg/actuation 04/17/2019 12:00:00 AM EST HFA aerosol inha ler 18 INHALE TWO PUFFS BY MOUTH FOUR TIMES A DAY NEEDED INHALE TWO PUFFS BY MOUTH FOUR TIMES A DAY NEEDED SOLD: 04/22/2019 [facility] 90 mcg/actuation 04/17/2019 12:00:00 AM EST HFA aerosol inha ler 18 INHALE TWO PUFFS BY MOUTH FOUR TIMES A DAY NEEDED INHALE TWO PUFFS BY MOUTH FOUR TIMES A DAY NEEDED SOLD: 06/11/2019 [facility] 90 mcg/actuation 04/17/2019 12:00:00 AM EST HFA aerosol inha ler 18 INHALE TWO PUFFS BY MOUTH FOUR TIMES A DAY NEEDED INHALE TWO PUFFS BY MOUTH FOUR TIMES A DAY NEEDED SOLD: 05/13/2019 [facility] 0.25 mg 04/15/2019 12:00:00 AM EST tablet 60 TAKE ONE TABLET BY MOUTH TWICE A DAY TAKE ONE TABLET BY MOUTH TWICE A DAY SOLD: 05/13/2019 [facility] 0.25 mg 04/15/2019 12:00:00 AM EST tablet 60 TAKE ONE TABLET BY MOUTH TWICE A DAY TAKE ONE TABLET BY MOUTH TWICE A DAY SOLD: 09/04/2019 [facility] 0.25 mg 04/15/2019 12:00:00 AM EST tablet 60 TAKE ONE TABLET BY MOUTH TWICE A DAY TAKE ONE TABLET BY MOUTH TWICE A DAY SOLD: 06/11/2019 [facility] 0.25 mg 04/15/2019 12:00:00 AM EST tablet 60 TAKE ONE TABLET BY MOUTH TWICE A DAY TAKE ONE TABLET BY MOUTH TWICE A DAY SOLD: 07/09/2019 [facility] 0.25 mg 04/15/2019 12:00:00 AM EST tablet 60 TAKE ONE TABLET BY MOUTH TWICE A DAY TAKE ONE TABLET BY MOUTH TWICE A DAY SOLD: 04/17/2019 [facility] 0.25 mg 04/15/2019 12:00:00 AM EST tablet 60 TAKE ONE TABLET BY MOUTH TWICE A DAY TAKE ONE TABLET BY MOUTH TWICE A DAY SOLD: 08/08/2019 [facility] 5 mg 04/14/2019 12:00:00 AM EST tablet 50 TAKE 1 TABLET BY MOUTH EVERY 8 HOURS NEEDED MAXIMUM DAILY DOSE = 3 TABLETS [50 TABLETS SHOULD LAST 30 DAYS] TAKE 1 TABLET BY MOUTH EVERY 8 HOURS NEEDED MAXIMUM DAILY DOSE = 3 TABLETS [50 TABLETS SHOULD LAST 30 DAYS] SOLD: 04/15/2019 [facility] 21 mg/24 hr 04/13/2019 12:00:00 AM EST patch 24 hour 28 APPLY 1 PATCH TO SKIN ONCE DAILY IN THE MORNING AND REMOVE AT BEDTIME APPLY 1 PATCH TO SKIN ONCE DAILY IN THE MORNING AND REMOVE AT BEDTIME SOLD: 05/13/2019 [facility] duloxetine 60 MG Delayed Release Oral Capsule [Cymbalta] C[facility]re 04/13/2019 12:00:00 AM EST 60 mg completed [id number] Cymbalta 04/13/2019 60 mg capsule,delayed release(DR/EC) [id number] Radha Nix [id number] [facility]) 21 mg/24 hr 04/13/2019 12:00:00 AM EST patch 24 hour 28 APPLY 1 PATCH TO SKIN ONCE DAILY IN THE MORNING AND REMOVE AT BEDTIME APPLY 1 PATCH TO SKIN ONCE DAILY IN THE MORNING AND REMOVE AT BEDTIME SOLD: 04/14/2019 [facility] duloxetine 30 MG Delayed Release Oral Capsule [Cymbalta] [facility]re 04/13/2019 12:00:00 AM EST 30 mg completed [id number] Cymbalta 04/13/2019 30 mg capsule,delayed release(DR/EC) 23135 [id number] 1 [id number] Radha Nix [id number] [facility] ([facility]) duloxetine 60 MG Delayed Release Oral Capsule [Cymbalta] Cym [facility] 04/13/2019 12:00:00 AM EST 60 mg completed [id number] Cymbalta 04/13/2019 60 mg capsule,delayed release(DR/EC) [id number] 1 [id number] Radha Nix [id number] [facility] ([facility]) duloxetine 30 MG Delayed Release Oral Capsule [Cymbalta] Cym [facility]igre 04/13/2019 12:00:00 AM EST 30 mg completed [id number] Cymbalta 04/13/2019 30 mg capsule,delayed release(DR/EC) [id number] 1 [id number] Radha Nix [id number] [facility] ([facility]) Lancets Ultra Fine Miscellaneous Lancets Ultra Fine Miscella neous 04/10/2019 12:00:00 AM EST aborted Lancets Ultra Fine SOF[place] ([facility]) OneTouch Ultra Blue In Vitro Strip OneTouch Ultra Blue In Vi tro Strip 04/10/2019 12:00:00 AM EST aborted OneTou ch Ultra Blue [place] ([facility]) Nystatin 100 UNT/MG Topical Powder Nystatin [id number] UNI T/GM External Powder Nystatin [id number] UNIT/GM External Powder 04/10/2019 12:00:00 AM EST aborted nystatin 100 UNT/MG Topical Powd er [place] ([facility]) Spironolactone 25 MG Oral Tablet Spironolactone 25 MG Oral T ablet 04/10/2019 12:00:00 AM EST 1 aborted spirono lactone 25 MG Oral Tablet [place] ([facility]) montelukast 10 MG Oral Tablet [Singulair] Singulair 10 MG Oral Tablet Singulair 10 MG Oral Tablet 04/10/2019 12:00:00 AM EST aborted montelukast 10 MG Oral Tablet [Singulair] [place] ([facility]) Furosemide 40 MG Oral Tablet [Lasix] Lasix 40 MG Oral Tablet Lasix 40 MG Oral Tablet 04/10/2019 12:00:00 AM EST aborted furosemide 40 MG Oral Tablet [Lasix] [place] ([facility]) Losartan Potassium 25 MG Oral Tablet Losartan Potassium 25 M G Oral Tablet 04/10/2019 12:00:00 AM EST aborted losartan potassium 25 MG Oral Tablet [facility]) 200 ACTUAT Albuterol 0.09 MG/ACTUAT [place] red Dose Inhaler [Ventolin] Ventolin HFA 108 (90 Base) MCG/ACT Inhalation Aerosol Solution Ventolin HFA 108 (90 Base) MCG/ACT Inhalation Aerosol Solution 04/10/2019 12:00:00 AM EST 18 aborted [id number] ACTUAT albuterol 0.09 MG/ACTUAT Metered Dose Inhaler [Ventolin] [facility]) Fluticasone Propionate 50 MCG/ACT Nasal Suspension Flu ticasone Propionate 50 MCG/ACT Nasal Suspension 04/10/2019 12:00:00 AM EST aborted fluticasone propionate 0.05 MG/ACTUAT Metered Dose Nasal [facility]) Sumatriptan 50 MG Oral Tablet [Imitrex] Imitrex 50 MG Oral Tablet Imitrex 50 MG Oral Tablet 04/10/2019 12:00:00 AM EST aborte d sumatriptan 50 MG Oral Tablet [Imitrex] [facility]) Metformin hydrochloride 1000 MG Oral Tablet metFORMIN HCl 1000 MG Oral Tablet metFORMIN HCl 1000 MG Oral Tablet 04/10/2019 12:00:00 AM EST aborted metformin hydrochloride 1000 MG Oral Tab let [facility]) Docusate Sodium 100 MG Oral Capsule [Dul colax Stool Softener] Dulcolax Stool Softener 100 MG Oral Capsule Dulcolax Stool Softener 100 MG Oral Capsule 04/10/2019 12:00:00 AM EST aborted docusate sodium 100 MG Oral Capsule [Dulcolax Stool Softener] [facility]) cetirizine hydrochloride 10 MG Oral Tablet Cetirizine HCl 10 MG Oral Tablet Cetirizine HCl 10 MG Oral Tablet 04/10/2019 12:00:00 AM EST aborted cetirizine hydrochloride 10 MG Oral Tablet [place] ([facility]) Oxycodone Hydrochloride 5 MG Oral Tablet Oxycodone HCl 5 MG Oxycodone HCl 5 MG 03/27/2019 12:00:00 AM EST active 1 tablet as needed eCW1 ([facility]) Oxycodone Hydrochloride 5 MG Oral Tablet Oxycodone HCl 5 MG Oxycodone HCl 5 MG 03/27/2019 12:00:00 AM EST active 1 tablet as needed eC ([facility]) Morphine Sulfate 15 MG Extended Release Oral Tablet Mo rphine Sulfate ER 15 MG Morphine Sulfate ER 15 MG 03/27/2019 12:00:00 AM EST active 1 tablet eCW1 ([facility]) Morphine Sulfate 15 MG Extended Release Oral Tablet Mo rphine Sulfate ER 15 MG Morphine Sulfate ER 15 MG 03/27/2019 12:00:00 AM EST active 1 tablet eCW1 ([facility]) 15 mg 03/24/2019 12:00:00 AM EST tablet extended release 60 TAKE ONE TABLET BY MOUTH EVERY 12 HOURS MAXIMUM DAILY DOSE = 2 TABLETS TAKE ONE TABLET BY MOUTH EVERY 12 HOURS MAXIMUM DAILY DOSE = 2 TABLETS SOLD: 03/25/2019 [facility] Morphine Sulfate 15 MG Extended Release Oral Tablet Mo rphine Sulfate ER 15 MG Morphine Sulfate ER 15 MG 03/23/2019 12:00:00 AM EST active 1 tablet eCW1 ([facility]) 20 mg 03/17/2019 12:00:00 AM EST capsule,delayed release (DR/EC) 60 TAKE ONE CAPSULE BY MOUTH TWICE A DAY TAKE ONE CAPSULE BY MOUTH TWICE A DAY SOLD: 03/17/2019 [facility] 1 gram 03/17/2019 12:00:00 AM EST tablet 120 TAKE ONE TABLET BY MOUTH FOUR TIMES A DAY WITH MEALS AND AT BEDTIME TAKE ONE TABLET BY MOUTH FOUR TIMES A DA Y WITH MEALS AND AT BEDTIME SOLD: 08/08/2019 [facility] 1 gram 03/17/2019 12:00:00 AM EST tablet 120 TAKE ONE TABLET BY MOUTH FOUR TIMES A DAY WITH MEALS AND AT BEDTIME TAKE ONE TABLET BY MOUTH FOUR TIMES A DA Y WITH MEALS AND AT BEDTIME SOLD: 04/14/2019 [facility] 1 gram 03/17/2019 12:00:00 AM EST tablet 120 TAKE ONE TABLET BY MOUTH FOUR TIMES A DAY WITH MEALS AND AT BEDTIME TAKE ONE TABLET BY MOUTH FOUR TIMES A DA Y WITH MEALS AND AT BEDTIME SOLD: 07/09/2019 [facility] 20 mg 03/17/2019 12:00:00 AM EST capsule,delayed release (DR/EC) 60 TAKE ONE CAPSULE BY MOUTH TWICE A DAY TAKE ONE CAPSULE BY MOUTH TWICE A DAY SOLD: 06/11/2019 [facility] Famotidine 20 MG Oral Tablet FAMOTIDINE 03/17/2019 12:00:00 AM EST tab let 60 TAKE ONE TABLET BY MOUTH TWICE A DAY TAKE ONE TABLET BY MOUTH TWICE A DAY SOLD: 06/16/2019 [facility] 20 mg 03/17/2019 12:00:00 AM EST capsule,delayed release (DR/EC) 60 TAKE ONE CAPSULE BY MOUTH TWICE A DAY TAKE ONE CAPSULE BY MOUTH TWICE A DAY SOLD: 04/14/2019 [facility] 20 mg 03/17/2019 12:00:00 AM EST tablet 60 TAKE ONE TABLET BY MOUTH TWICE A DAY TAKE ONE TABLET BY MOUTH TWICE A DAY SOLD: 05/20/2019 [facility] 20 mg 03/17/2019 12:00:00 AM EST capsule,delayed release (DR/EC) 60 TAKE ONE CAPSULE BY MOUTH TWICE A DAY TAKE ONE CAPSULE BY MOUTH TWICE A DAY SOLD: 07/09/2019 [facility] 20 mg 03/17/2019 12:00:00 AM EST capsule,delayed release (DR/EC) 60 TAKE ONE CAPSULE BY MOUTH TWICE A DAY TAKE ONE CAPSULE BY MOUTH TWICE A DAY SOLD: 05/13/2019 [facility] 20 mg 03/17/2019 12:00:00 AM EST tablet 60 TAKE ONE TABLET BY MOUTH TWICE A DAY TAKE ONE TABLET BY MOUTH TWICE A DAY SOLD: 03/17/2019 [facility] 1 gram 03/17/2019 12:00:00 AM EST tablet 120 TAKE ONE TABLET BY MOUTH FOUR TIMES A DAY WITH MEALS AND AT BEDTIME TAKE ONE TABLET BY MOUTH FOUR TIMES A DA Y WITH MEALS AND AT BEDTIME SOLD: 03/17/2019 [facility] 200 mcg 03/17/2019 12:00:00 AM EST tablet 120 TAKE ONE TABLET BY MOUTH FOUR TIMES A DAY WITH MEALS AND AT BEDTIME TAKE ONE TABLET BY MOUTH FOUR TIMES A DA Y WITH MEALS AND AT BEDTIME SOLD: 03/17/2019 [facility] 20 mg 03/17/2019 12:00:00 AM EST capsule,delayed release (DR/EC) 60 TAKE ONE CAPSULE BY MOUTH TWICE A DAY TAKE ONE CAPSULE BY MOUTH TWICE A DAY SOLD: 08/08/2019 [facility] 200 mcg 03/17/2019 12:00:00 AM EST tablet 120 TAKE ONE TABLET BY MOUTH FOUR TIMES A DAY WITH MEALS AND AT BEDTIME TAKE ONE TABLET BY MOUTH FOUR TIMES A DA Y WITH MEALS AND AT BEDTIME SOLD: 04/14/2019 [facility] 200 mcg 03/17/2019 12:00:00 AM EST tablet 120 TAKE ONE TABLET BY MOUTH FOUR TIMES A DAY WITH MEALS AND AT BEDTIME TAKE ONE TABLET BY MOUTH FOUR TIMES A DA Y WITH MEALS AND AT BEDTIME SOLD: 08/08/2019 [facility] 200 mcg 03/17/2019 12:00:00 AM EST tablet 120 TAKE ONE TABLET BY MOUTH FOUR TIMES A DAY WITH MEALS AND AT BEDTIME TAKE ONE TABLET BY MOUTH FOUR TIMES A DA Y WITH MEALS AND AT BEDTIME SOLD: 06/11/2019 [facility] 200 mcg 03/17/2019 12:00:00 AM EST tablet 120 TAKE ONE TABLET BY MOUTH FOUR TIMES A DAY WITH MEALS AND AT BEDTIME TAKE ONE TABLET BY MOUTH FOUR TIMES A DA Y WITH MEALS AND AT BEDTIME SOLD: 07/09/2019 [facility] 200 mcg 03/17/2019 12:00:00 AM EST tablet 120 TAKE ONE TABLET BY MOUTH FOUR TIMES A DAY WITH MEALS AND AT BEDTIME TAKE ONE TABLET BY MOUTH FOUR TIMES A DA Y WITH MEALS AND AT BEDTIME SOLD: 05/13/2019 [facility] 1 gram 03/17/2019 12:00:00 AM EST tablet 120 TAKE ONE TABLET BY MOUTH FOUR TIMES A DAY WITH MEALS AND AT BEDTIME TAKE ONE TABLET BY MOUTH FOUR TIMES A DA Y WITH MEALS AND AT BEDTIME SOLD: 05/13/2019 [facility] 1 gram 03/17/2019 12:00:00 AM EST tablet 120 TAKE ONE TABLET BY MOUTH FOUR TIMES A DAY WITH MEALS AND AT BEDTIME TAKE ONE TABLET BY MOUTH FOUR TIMES A DA Y WITH MEALS AND AT BEDTIME SOLD: 06/11/2019 [facility] Famotidine 20 MG Oral Tablet FAMOTIDINE 03/17/2019 12:00:00 AM EST tab let 60 TAKE ONE TABLET BY MOUTH TWICE A DAY TAKE ONE TABLET BY MOUTH TWICE A DAY SOLD: 04/14/2019 [facility] 5 mg 03/15/2019 12:00:00 AM EST tablet 50 TAKE ONE TABLET BY MOUTH EVERY 8 HOURS NEEDED MAXIMUM DAILY DOSE = 3 TABLETS (50 TABLETS SHOULD LAST FOR 30 DAYS) TAKE ONE TABLET BY MOUTH EVERY 8 HOURS A S NEEDED MAXIMUM DAILY DOSE = 3 TABLETS (50 TABLETS SHOULD LAST FOR 30 DAYS) SOLD: 03/17/2019 [facility] Oxycodone Hydrochloride 5 MG Oral Tablet Oxycodone HCl 5 MG Oxycodone HCl 5 MG 03/15/2019 12:00:00 AM EST active 1 tablet as needed eCW1 ([facility]) 800 mg 03/15/2019 12:00:00 AM EST tablet 90 TAKE ONE TABLET BY MOUTH THREE TIMES A DAY FOR PAIN FOR 30 DAYS TAKE ONE TABLET BY MOUTH THREE TIMES A D AY FOR PAIN FOR 30 DAYS SOLD: 05/13/2019 [facility] 800 mg 03/15/2019 12:00:00 AM EST tablet 90 TAKE ONE TABLET BY MOUTH THREE TIMES A DAY FOR PAIN FOR 30 DAYS TAKE ONE TABLET BY MOUTH THREE TIMES A D AY FOR PAIN FOR 30 DAYS SOLD: 04/14/2019 [facility] 800 mg 03/15/2019 12:00:00 AM EST tablet 90 TAKE ONE TABLET BY MOUTH THREE TIMES A DAY FOR PAIN FOR 30 DAYS TAKE ONE TABLET BY MOUTH THREE TIMES A D AY FOR PAIN FOR 30 DAYS SOLD: 03/17/2019 [facility] Amitriptyline Hydrochloride 25 MG Oral Tablet AMITRIPTYLINE HCL 03/09/2019 12:00:00 AM EST tablet 30 TAKE ONE TABLET BY MOUTH EVERY DAY TAKE ONE TABLET BY MOUTH EVERY DAY SOLD: 03/12/2019 [facility] Amitriptyline Hydrochloride 25 MG Oral Tablet AMITRIPTYLINE HCL 03/09/2019 12:00:00 AM EST tablet 30 TAKE ONE TABLET BY MOUTH EVERY DAY TAKE ONE TABLET BY MOUTH EVERY DAY SOLD: 04/07/2019 [facility] Amitriptyline Hydrochloride 25 MG Oral Tablet AMITRIPTYLINE HCL 03/09/2019 12:00:00 AM EST tablet 30 TAKE ONE TABLET BY MOUTH EVERY DAY TAKE ONE TABLET BY MOUTH EVERY DAY SOLD: 05/06/2019 [facility] 100 mg 03/08/2019 12:00:00 AM EST tablet sustained-releas e 12 hr 60 TAKE ONE TABLET BY MOUTH TWICE A DAY TAKE ONE TABLET BY MOUTH TWICE A DAY SOLD: 04/14/2019 [facility] 100 mg 03/08/2019 12:00:00 AM EST tablet sustained-releas e 12 hr 60 TAKE ONE TABLET BY MOUTH TWICE A DAY TAKE ONE TABLET BY MOUTH TWICE A DAY SOLD: 05/13/2019 [facility] 100 mg 03/08/2019 12:00:00 AM EST tablet sustained-releas e 12 hr 60 TAKE ONE TABLET BY MOUTH TWICE A DAY TAKE ONE TABLET BY MOUTH TWICE A DAY SOLD: 03/12/2019 [facility] 30 mg 03/03/2019 12:00:00 AM EST capsule,delayed release (DR/EC) 30 TAKE ONE CAPSULE BY MOUTH EVERY EVENING TAKE ONE CAPSULE BY MOUTH EVERY EVENING SOLD: 05/06/2019 [facility] 60 mg 03/03/2019 12:00:00 AM EST capsule,delayed release (DR/EC) 30 TAKE ONE CAPSULE BY MOUTH EVERY EVENING TAKE ONE CAPSULE BY MOUTH EVERY EVENING SOLD: 05/06/2019 [facility] 30 mg 03/03/2019 12:00:00 AM EST capsule,delayed release (DR/EC) 30 TAKE ONE CAPSULE BY MOUTH EVERY EVENING TAKE ONE CAPSULE BY MOUTH EVERY EVENING SOLD: 04/07/2019 [facility] 30 mg 03/03/2019 12:00:00 AM EST capsule,delayed release (DR/EC) 30 TAKE ONE CAPSULE BY MOUTH EVERY EVENING TAKE ONE CAPSULE BY MOUTH EVERY EVENING SOLD: 03/06/2019 [facility] 60 mg 03/03/2019 12:00:00 AM EST capsule,delayed release (DR/EC) 30 TAKE ONE CAPSULE BY MOUTH EVERY EVENING TAKE ONE CAPSULE BY MOUTH EVERY EVENING SOLD: 04/07/2019 [facility] 60 mg 03/03/2019 12:00:00 AM EST capsule,delayed release (DR/EC) 30 TAKE ONE CAPSULE BY MOUTH EVERY EVENING TAKE ONE CAPSULE BY MOUTH EVERY EVENING SOLD: 03/06/2019 [facility] 33 gauge 03/02/2019 12:00:00 AM EST misc 100 TEST THREE TIMES A DAY TEST THREE TIMES A DAY SOLD: 06/02/2019 [facility] 33 gauge 03/02/2019 12:00:00 AM EST misc 100 TEST THREE TIMES A DAY TEST THREE TIMES A DAY SOLD: 04/07/2019 [facility] 33 gauge 03/02/2019 12:00:00 AM EST misc 100 TEST THREE TIMES A DAY TEST THREE TIMES A DAY SOLD: 03/06/2019 [facility] montelukast 10 MG Oral Tablet MONTELUKAST SODIUM 02/20/2019 12:0 0:00 AM EST tablet 30 TAKE ONE TABLET BY MOUTH EVERY D AY TAKE ONE TABLET BY MOUTH EVERY DAY SOLD: 03/25/2019 [facility] 1,000 mg 02/20/2019 12:00:00 AM EST tablet 60 TAKE ONE TABLET BY MOUTH TWICE A DAY TAKE ONE TABLET BY MOUTH TWICE A DAY SOLD: 04/22/2019 [facility] montelukast 10 MG Oral Tablet MONTELUKAST SODIUM 02/20/2019 12:0 0:00 AM EST tablet 30 TAKE ONE TABLET BY MOUTH EVERY D AY TAKE ONE TABLET BY MOUTH EVERY DAY SOLD: 04/22/2019 [facility] 1,000 mg 02/20/2019 12:00:00 AM EST tablet 60 TAKE ONE TABLET BY MOUTH TWICE A DAY TAKE ONE TABLET BY MOUTH TWICE A DAY SOLD: 03/25/2019 [facility] 10 mg 02/14/2019 12:00:00 AM EDT tablet 30 TAKE 1 TABLET BY MOUTH EVERY 8HRS NEEDED PAIN DIRECTED-30 TO LAST 30 DAYS TAKE 1 TABLET BY MOUTH EVERY 8HRS NEEDED PAIN DIRECTED-30 TO LAST 30 DAYS SOLD: 03/17/2019 [facility] BLOOD SUGAR DIAGNOSTIC 02/07/2019 12:00:00 AM EDT strip 100 TEST THREE TIMES A DAY TEST THREE TIMES A DAY SOLD: 04/27/2019 [facility] 50 mg 02/07/2019 12:00:00 AM EDT tablet 9 TAKE 1 TABLET BY MOUTH ONSET OF HEADACHE REPEAT X 1 AFTER 2HRS IF NEEDED TAKE 1 TABLET BY MOUTH ONSET OF HEADACHE REPEAT X 1 AFTER 2HRS IF NEEDED SOLD: 03/12/2019 [facility] 50 mg 02/07/2019 12:00:00 AM EDT tablet 9 TAKE 1 TABLET BY MOUTH ONSET OF HEADACHE REPEAT X 1 AFTER 2HRS IF NEEDED TAKE 1 TABLET BY MOUTH ONSET OF HEADACHE REPEAT X 1 AFTER 2HRS IF NEEDED SOLD: 04/14/2019 [facility] BLOOD SUGAR DIAGNOSTIC 02/07/2019 12:00:00 AM EDT strip 100 TEST THREE TIMES A DAY TEST THREE TIMES A DAY SOLD: 03/12/2019 [facility] 50 mg 02/07/2019 12:00:00 AM EDT tablet 9 TAKE 1 TABLET BY MOUTH ONSET OF HEADACHE REPEAT X 1 AFTER 2HRS IF NEEDED TAKE 1 TABLET BY MOUTH ONSET OF HEADACHE REPEAT X 1 AFTER 2HRS IF NEEDED SOLD: 07/09/2019 [facility] 50 mg 02/07/2019 12:00:00 AM EDT tablet 9 TAKE 1 TABLET BY MOUTH ONSET OF HEADACHE REPEAT X 1 AFTER 2HRS IF NEEDED TAKE 1 TABLET BY MOUTH ONSET OF HEADACHE REPEAT X 1 AFTER 2HRS IF NEEDED SOLD: 08/08/2019 [facility] 50 mg 02/07/2019 12:00:00 AM EDT tablet 9 TAKE 1 TABLET BY MOUTH ONSET OF HEADACHE REPEAT X 1 AFTER 2HRS IF NEEDED TAKE 1 TABLET BY MOUTH ONSET OF HEADACHE REPEAT X 1 AFTER 2HRS IF NEEDED SOLD: 06/11/2019 [facility] 50 mg 02/07/2019 12:00:00 AM EDT tablet 9 TAKE 1 TABLET BY MOUTH ONSET OF HEADACHE REPEAT X 1 AFTER 2HRS IF NEEDED TAKE 1 TABLET BY MOUTH ONSET OF HEADACHE REPEAT X 1 AFTER 2HRS IF NEEDED SOLD: 09/04/2019 [facility] 50 mg 02/07/2019 12:00:00 AM EDT tablet 9 TAKE 1 TABLET BY MOUTH ONSET OF HEADACHE REPEAT X 1 AFTER 2HRS IF NEEDED TAKE 1 TABLET BY MOUTH ONSET OF HEADACHE REPEAT X 1 AFTER 2HRS IF NEEDED SOLD: 05/13/2019 [facility] 90 mcg/actuation 02/06/2019 12:00:00 AM EDT HFA aerosol inha ler 18 INHALE TWO PUFFS BY MOUTH FOUR TIMES A DAY NEEDED INHALE TWO PUFFS BY MOUTH FOUR TIMES A DAY NEEDED SOLD: 03/02/2019 [facility] 25 mg 02/06/2019 12:00:00 AM EDT tablet 30 TAKE ONE TABLET BY MOUTH EVERY DAY TAKE ONE TABLET BY MOUTH EVERY DAY SOLD: 03/12/2019 [facility] 25 mg 02/06/2019 12:00:00 AM EDT tablet 30 TAKE ONE TABLET BY MOUTH EVERY DAY TAKE ONE TABLET BY MOUTH EVERY DAY SOLD: 04/07/2019 [facility] Spironolactone 25 MG Oral Tablet Spironolactone 25 MG Oral T ablet 02/06/2019 12:00:00 AM EDT 1 aborted spirono lactone 25 MG Oral Tablet [facility]) Nystatin 100 UNT/MG Topical Powder Nystatin 613180 UNI T/GM External Powder Nystatin 764198 UNIT/GM External Powder 02/06/2019 12:00:00 AM EDT aborted nystatin 100 UNT/MG Topical Powd er [place] ([facility]) Sumatriptan 50 MG Oral Tablet [Imitrex] Imitrex 50 MG Oral Tablet Imitrex 50 MG Oral Tablet 02/06/2019 12:00:00 AM EDT aborte d sumatriptan 50 MG Oral Tablet [Imitrex] [facility]) Furosemide 40 MG Oral Tablet [Lasix] Lasix 40 MG Oral Tablet Lasix 40 MG Oral Tablet 02/06/2019 12:00:00 AM EDT aborted furosemide 40 MG Oral Tablet [Lasix] [facility]) 100,000 unit/gram 02/06/2019 12:00:00 AM EDT powder 15 APPLY TO AFFECTED AREA(S) UNDER BREASTS AND IN GROIN TWO TIMES A DAY APPLY TO AFFECTED AREA(S) UNDER BREASTS AND IN GROIN TWO TIMES A DAY SOLD: 03/21/2019 [facility] montelukast 10 MG Oral Tablet [Singulair] Singulair 10 MG Oral Tablet Singulair 10 MG Oral Tablet 02/06/2019 12:00:00 AM EDT aborted montelukast 10 MG Oral Tablet [Singulair] [place] ([facility]) OneTouch Ultra Blue In Vitro Strip OneTouch Ultra Blue In Vi tro Strip 02/06/2019 12:00:00 AM EDT aborted OneTou ch Ultra Blue [place] ([facility]) OneTouch Delica Lancets Fine Miscellaneous OneTouch De lica Lancets Fine Miscellaneous 02/06/2019 12:00:00 AM EDT abor rubi OneTouch Delica Lancets Fine [place] ([facility]) cetirizine hydrochloride 10 MG Oral Tablet Cetirizine HCl 10 MG Oral Tablet Cetirizine HCl 10 MG Oral Tablet 02/06/2019 12:00:00 AM EDT aborted cetirizine hydrochloride 10 MG Oral Tablet [place] [facility]) Docusate Sodium 100 MG Oral Capsule [Dul colax Stool Softener] Dulcolax Stool Softener 100 MG Oral Capsule Dulcolax Stool Softener 100 MG Oral Capsule 02/06/2019 12:00:00 AM EDT aborted docusate sodium 100 MG Oral Capsule [Dulcolax Stool Softener] [place] ([facility]) Losartan Potassium 25 MG Oral Tablet Losartan Potassium 25 M G Oral Tablet 02/06/2019 12:00:00 AM EDT aborted losartan potassium 25 MG Oral Tablet [place] ([facility]) 200 ACTUAT Albuterol 0.09 MG/ACTUAT Mete red Dose Inhaler [Ventolin] Ventolin HFA 108 (90 Base) MCG/ACT Inhalation Aerosol Solution Ventolin HFA 108 (90 Base) MCG/ACT Inhalation Aerosol Solution 02/06/2019 12:00:00 AM EDT 18 aborted [id number] 200 ACTUAT albuterol 0.09 MG/ACTUAT Metered Dose Inhaler [Ventolin] [place] ([facility]) Metformin hydrochloride 1000 MG Oral Tablet metFORMIN HCl 1000 MG Oral Tablet metFORMIN HCl 1000 MG Oral Tablet 02/06/2019 12:00:00 AM EDT aborted metformin hydrochloride 1000 MG Oral Tab let [place] ([facility]) Fluticasone Propionate 50 MCG/ACT Nasal Suspension Flu ticasone Propionate 50 MCG/ACT Nasal Suspension 02/06/2019 12:00:00 AM EDT aborted fluticasone propionate 0.05 MG/ACTUAT Metered Dose Nasal [place] ([facility]) 10 mg 02/06/2019 12:00:00 AM EDT tablet 30 TAKE ONE TABLET BY MOUTH EVERY DAY TAKE ONE TABLET BY MOUTH EVERY DAY SOLD: 04/14/2019 [facility] Losartan Potassium 25 MG Oral Tablet [facility] 12:00:00 AM EDT tablet 30 TAKE ONE TABLET BY MOUTH AKBAR RY DAY TAKE ONE TABLET BY MOUTH EVERY DAY SOLD: 03/12/2019 [facility] Losartan Potassium 25 MG Oral Tablet [facility] POTASSIUM 12:00:00 AM EDT tablet 30 TAKE ONE TABLET BY MOUTH AKBAR RY DAY TAKE ONE TABLET BY MOUTH EVERY DAY SOLD: 04/14/2019 [facility] 50 mcg/actuation 02/06/2019 12:00:00 AM EDT spray,suspension 16 SPRAY TWO SPRAYS IN EACH NOSTRIL EVERY DAY DIRECTED SPRAY TWO SPRAYS IN EACH NOSTRIL EVERY DAY DIRECTED SOLD: 04/14/2019 [facility] 10 mg 02/06/2019 12:00:00 AM EDT tablet 30 TAKE ONE TABLET BY MOUTH EVERY DAY TAKE ONE TABLET BY MOUTH EVERY DAY SOLD: 03/12/2019 [facility] 100 mg 02/06/2019 12:00:00 AM EDT capsule 90 TAKE ONE CAPSULE BY MOUTH THREE TIMES A DAY TAKE ONE CAPSULE BY MOUTH THREE TIMES A DAY SOLD: 04/14/2019 [facility] 100 mg 02/06/2019 12:00:00 AM EDT capsule 90 TAKE ONE CAPSULE BY MOUTH THREE TIMES A DAY TAKE ONE CAPSULE BY MOUTH THREE TIMES A DAY SOLD: 03/12/2019 [facility] 50 mcg/actuation 02/06/2019 12:00:00 AM EDT spray,suspension 16 SPRAY TWO SPRAYS IN EACH NOSTRIL EVERY DAY DIRECTED SPRAY TWO SPRAYS IN EACH NOSTRIL EVERY DAY DIRECTED SOLD: 03/12/2019 [facility] 90 mcg/actuation 02/06/2019 12:00:00 AM EDT HFA aerosol inha ler 18 INHALE TWO PUFFS BY MOUTH FOUR TIMES A DAY NEEDED INHALE TWO PUFFS BY MOUTH FOUR TIMES A DAY NEEDED SOLD: 03/25/2019 [facility] 40 mg 02/04/2019 12:00:00 AM EDT tablet 30 TAKE 1 TABLET (40MG) BY MOUTH DAILY TAKE 1 TABLET (40MG) BY MOUTH DAILY SOLD: 03/06/2019 [facility] 40 mg 02/04/2019 12:00:00 AM EDT tablet 30 TAKE 1 TABLET (40MG) BY MOUTH DAILY TAKE 1 TABLET (40MG) BY MOUTH DAILY SOLD: 04/07/2019 [facility] 0.25 mg 11/25/2018 12:00:00 AM EDT tablet 60 TAKE 1 TABLET BY MOUTH TWICE A DAY MAX DAILY DOSE = 2 TABLETS TAKE 1 TABLET BY MOUTH TWICE A DAY MAX D AILY DOSE = 2 TABLETS SOLD: 03/25/2019 [facility] 200 mg 10/27/2018 12:00:00 AM EDT capsule 90 TAKE ONE CAPSULE BY MOUTH EVERY 8 HOURS THREE TIMES A DAY MAXIMUM DAILY DOSE = 3 CAPSULES TAKE ONE CAPSULE BY MOUTH EVERY 8 HOURS THREE TIMES A DAY MAXIMUM DAILY DOSE = 3 CAPSULES SOLD: 04/07/2019 [facility] Amitriptyline Hydrochloride 25 MG Oral T ablet Amitriptyline HCl 25MG Oral Tablet Amitriptyline HCl 25MG Oral Tablet 10/18/2018 12:00:00 AM EDT 1 aborted amitriptyline hydrochloride 25 M G Oral Tablet [facility]) 24 HR Oxybutynin chloride 10 MG Extended Release Oral Tablet [Ditropan] Ditropan XL 10MG Oral Tablet Extended Release 24 Hour Ditropan XL 10MG Oral Tablet Extended Release 24 Hour 10/18/2018 12:00:00 AM EDT aborted 24 HR oxybutynin chloride 10 MG Extended Release Oral Tablet [Ditropan] [place] ([facility]) BLOOD SUGAR DIAGNOSTIC 10/11/2018 12:00:00 AM EDT strip 100 TEST THREE TIMES A DAY TEST THREE TIMES A DAY SOLD: 10/17/2019 [facility] Losartan Potassium 25 MG Oral Tablet [facility] POTASSIUM 12:00:00 AM EDT tablet 30 TAKE ONE TABLET BY MOUTH AKBAR DAY TAKE ONE TABLET BY MOUTH EVERY DAY SOLD: 05/23/2019 [facility] Losartan Potassium 25 MG Oral Tablet [facility] POTASSIUM 12:00:00 AM EDT tablet 30 TAKE ONE TABLET BY MOUTH AKBAR DAY TAKE ONE TABLET BY MOUTH EVERY DAY SOLD: 06/22/2019 [facility] duloxetine 30 MG Delayed Release Oral Ca psule DULoxetine HCl 30MG Oral Capsule Delayed Release Particles DULoxetine HCl 30MG Oral Capsule Delayed Release Particles 08/23/2018 12:00:00 AM EDT aborted duloxetine 30 MG Delayed Release Oral Capsule [place] ([facility]) duloxetine 60 MG Delayed Release Oral Ca psule DULoxetine HCl 60MG Oral Capsule Delayed Release Particles DULoxetine HCl 60MG Oral Capsule Delayed Release Particles 08/23/2018 12:00:00 AM EDT aborted duloxetine 60 MG Delayed Release Oral Capsule [place] ([facility]) buspirone hydrochloride 10 MG Oral Tablet busPIRone HC l 10MG Oral Tablet busPIRone HCl 10MG Oral Tablet 08/23/2018 12:00:00 AM EDT aborted buspirone hydrochloride 10 MG Oral Tablet [place] ([facility]) aripiprazole 5 MG Oral Tablet [Abilify] Abilify 5MG Or al Tablet Abilify 5MG Oral Tablet 08/23/2018 12:00:00 AM EDT aborted aripiprazole 5 MG Oral Tablet [Abilify] [place] ([facility]) Oxycodone Hydrochloride 5 MG Oral Capsule oxyCODONE HC l 5MG Oral Capsule oxyCODONE HCl 5MG Oral Capsule 08/23/2018 12:00:00 AM EDT aborted oxycodone hydrochloride 5 MG Oral Capsule [place] ([facility]) 12 HR Bupropion Hydrochloride 100 MG Ext ended Release Oral Tablet [Wellbutrin] Wellbutrin SR 100MG Oral Tablet Extended Release 12 Hour Wellbutrin SR 100MG Oral Tablet Extended Release 12 Hour 08/23/2018 12:00:00 AM EDT aborted 12 HR bupropion hydr ochloride 100 MG Extended Release Oral Tablet [Wellbutrin] [place] ([facility]) pregabalin 200 MG Oral Capsule [Lyrica] Lyrica 200MG O ral Capsule Lyrica 200MG Oral Capsule 08/23/2018 12:00:00 AM EDT abort ed pregabalin 200 MG Oral Capsule [Lyrica] [place] ([facility]) Insurance Providers Payer name Policy type / Coverage type Policy ID Covered alliance party ID Covered alliance party's relationship to robin Policy Robin Plan Information [employer] COMMUNITY PLAN MCDO [id number] SP [id number] UNHC COMMUNITY PLAN MCDHMO [id number] SP [id number] [facility]) O [id number] S [id number] [facility] [id number] SP [id number] UN AMERICHOICE XIX -O [id number] 18 [id number] [facility] [id number] SP [id number] [facility] I [id number] Self [id number] [facility] Individual Policy [id number] S elf [id number] [facility] Individual Policy [id number] S elf [id number] [facility] Individual Policy [id number] S elf [id number] [facility]-Medicaid [id number] [facility]-Medicaid [id number] [facility]-Medicaid [id number] [employer] Medicaid Medicaid [id number] Self [id number] [facility]-Medicaid [id number] [facility] [id number] Self [id number] ANSI-Medicaid [id number] ANSI-Medicaid [id number] [facility] Individual Policy [id number] S elf [id number] ANSI-Medicaid [id number] ANSI-Medicaid [id number] ANSI-Medicaid [id number] [facility] Community Plan Medigap Part B [id number] Self [id number] [facility] Community Plan Commercial [id number] Self [id number] ANSI-Medicaid [id number] [facility] COMM[facility]AN MCDHMO [id number] SP [id number] ANSI-Medicaid [id number] ANSI-Medicaid [id number] ANSI-Medicaid [id number] ANSI-Medicaid [id number] ANSI-Medicaid [id number] ANSI-Medicaid [id number] ANSI-Medicaid [id number] ANSI-Medicaid [id number] ANSI-Medicaid [id number] ANSI-Medicaid [id number] ANSI-Medicaid [id number] ANSI-Medicaid [id number] ANSI-Medicaid [id number] ANSI-Medicaid [id number] ANSI-Medicaid [id number] ANSI-Medicaid [id number] ANSI-Medicaid [id number] [facility] Health Maintenance Organization ([facility]) [id number] Self [id number] [facility] Individual Policy [id number] S elf [id number] ANSI-Medicaid [id number] ANSI-Medicaid [id number] ANSI-Medicaid [id number] ANSI-Medicaid [id number] ANSI-Medicaid [id number] ANSI-Medicaid [id number] ANSI-Medicaid [id number] ANSI-Medicaid [id number] ANSI-Medicaid [id number] ANSI-Medicaid [id number] ANSI-Medicaid [id number] ANSI-Medicaid [id number] [facility] [id number] ANSI-Medicaid [id number] [facility] Health Individual Policy [address] ANSI-Medicaid [id number] ANSI-Medicaid [id number] [facility] Individual Policy [address] [facility] [id number] ANSI-Medicaid [id number] ANSI-Medicaid [id number] [facility] Community Plan Medigap Part B [id number] Self [id number] [facility] Community Plan Commercial [id number] Self [id number] [facility] Behavioral Health Individual Policy [id number] S el [id number] ANSI-Medicaid [id number] ANSI-Medicaid [id number] [facility] Individual Policy [id number] S [facility] [id number] ANSI-Medicaid [id number] ANSI-Medicaid [id number] [facility] Community [facility] Part B [id number] Self [id number] [facility] Community Plan Commercial [id number] Self [id number] ANSI-Medicaid [id number] ANSI-Medicaid [id number] ANSI-Medicaid [id number] [facility] Community Plan Medigap Part B [id number] Self [id number] [facility] Community Plan Commercial [id number] Self [id number] [facility] Community Plan Medigap Part B [id number] Self [id number] [facility] Community Plan Commercial [id number] Self [id number] ANSI-Medicaid [id number] ANSI-Medicaid [id number] ANSI-Medicaid [id number] ANSI-Medicaid [id number] [facility] Individual Policy [id number] S elf [id number] ANSI-Medicaid [id number] ANSI-Medicaid [id number] [facility] Community Plan Medigap Part B [id number] Self [id number] [facility] Community Plan Commercial [id number] Self [id number] ANSI-Medicaid [id number] ANSI-Medicaid [id number] ANSI-Medicaid [id number] ANSI-Medicaid [id number] ANSI-Medicaid [id number] [facility] Individual Policy [id number] S elf [id number] [facility] MEDICAID [id number] S [id number] [facility] MEDICAID [id number] S [id number] [facility] Community Plan Medigap Part B [id number] Self [id number] [facility] Community Plan Commercial [id number] Self [id number] [facility]al [facility] Individual Policy [id number] S elf [id number] [facility] Community Plan Medigap Part B [id number] Self [id number] [facility] Community Plan Commercial [id number] Self [id number] [facility] Maintenance Organization (HMO) [id number] Self [id number] [facility] Health Maintenance [facility] (HMO) [id number] Self [id number] [facility] Community Plan Medigap Part B [id number] Self [id number] [facility] Community Plan Commercial [id number] Self [id number] [facility] Individual Policy [id number] S elf [id number] [facility] Individual Policy [id number] S elf [id number] [employer] AMERICHOICE XIX -HMO [id number] 18 [id number] [employer] COMMUNITY PLAN MCDHMO [id number] SP [id number] [facility] Community Plan Medigap Part B [id number] Self [id number] [facility] Community Plan Commercial [id number] Self [id number] [facility] Individual Policy [id number] S elf [id number] [facility] MED[facility] [place] HMO [id number] S [id number] [facility] Health Maintenance Organization (HMO) [id number] Self [id number] [facility] Health Individual Policy [id number] S elf [id number] UNHC COMMUNITY PLAN XIX -RECURRING [id number] 18 [id number] UNITED HEALTHCARE -RECURRING [id number] [facility] Community Plan Medigap Part B [id number] Self [id number] [facility] Community Plan Commercial [id number] Self [id number] UNHC COMMUNITY PLAN MCDHMO [id number] SP [id number] [facility]/MCR Health Maintenance Organization (HMO) Self [facility] Hmo Commercial Self Uhc Community Plan Commercial Self Uhc Community Plan Commercial Self [id number] UNAVAILABLE UNAVAILA BLE [facility]/MCR Health Maintenance Organization (HMO) Self [employer] MCRHMO [id number] SP [id number] MEDICAID GRACE [id number] S [id number] [facility](MCAID) O [id number] S [id number] UNHC COMMUNITY PLAN MCDHMO [id number] SP [id number] [facility] [id number] SP [id number] [facility] Medicaid Medicaid Self BLUE CROSS GARDNER PLAN [id number] SP [id number] MEDICAID [id number] SP [id number] MEDICAID [id number] SP [id number] MEDICAID [id number] SP [id number] [facility] Hmo Commercial Self C MEDICAID [id number] Geovanna [id number] 21 O UNAVAILABLE UNAVAILA BLE [facility] Community Plan Commercial Self UNHC COMMUNITY PLAN MCDHMO [id number] SP [id number] MEDICAID-O/P [id number] 18 [id number] EXCELLUS BCBS P [id number] S [id number] BLUE CROSS BLUE SHIELD-O/P [id number] Problems, Conditions, and Diagnoses Code Display Name Description Problem Type Effective Dates Data Source(s) F12.10 Cannabis abuse, uncomplicated Cannabis Use Disorder, M ild Condition 04/26/2020 12:00:00 AM EST [facility] ([facility]) F17.200 Nicotine dependence, unspecified, uncomp licated Tobacco Use Disorder, Moderate Condition 04/26/2020 12:00:00 AM EST [facility] ([facility]) F33.1 Major depressive disorder, recurrent, mo derate Major Depressive Disorder, Recurrent episode, Moderate Condition 04/26/2020 12:00:00 AM EST [facility] ([facility]) 206633379 Gastroesophageal reflux disease Gastroesophageal reflux disease Problem 04/23/2020 12:00:00 AM EST [facility] ([facility]) 637939245 Bariatric operative procedure Bariatric operative proc edure Problem 03/27/2020 12:00:00 AM EST [facility] ([facility]) [id number] Tobacco user Tobacco user Problem 03/27/2020 12:00:00 A M EST [facility] ([facility]) 41413417 Obstructive sleep apnea syndrome Obstructive sle ep apnea syndrome Problem 03/27/2020 12:00:00 AM EST [facility] ([facility]) 04700200 Depressive disorder Depressive disorder Problem 1 05/28/2019 12:00:00 AM EST [facility] ([facility]) 93029762 Anxiety Anxiety Problem 03/27/2020 12:00:00 AM ES T [facility] ([facility]) 89738695 Migraine Migraine Problem 03/27/2020 12:00:00 AM ES T [facility] ([facility]) 424985445 Gastroesophageal reflux disease Gastroesophageal reflux disease Problem 03/27/2020 12:00:00 AM EST [facility] ([facility]) 61743104 Type 2 diabetes mellitus Type 2 diabetes mellitus Prob isabelle 03/27/2020 12:00:00 AM EST [facility] ([facility]) D22.61 364158895 Melanocytic nevi of right upper limb, including shoulder Problem 03/13/2020 12:00:00 AM EST eCW1 ([facility]) D22.62 [id number] Melanocytic nevi of left upper l imb, including shoulder Problem 03/13/2020 12:00:00 AM EST eCW1 ([facility]) D22.71 931645815 Melanocytic nevi of right lower limb, inc luding hip Problem 03/13/2020 12:00:00 AM EST eCW1 ([facility]) D22.72 [id number] Melanocytic nevi of left lower l imb, including hip Problem 03/13/2020 12:00:00 AM EST eCW1 ([facility]) D22.21 051421700 Melanocytic nevi of right ear Problem 03/13/2020 12:00:00 AM EST eCW1 ([facility]) D22.22 728253700 Melanocytic nevi of left ear Problem 03/13/2020 12:00:00 AM EST eCW1 ([facility]) 79654302 Essential hypertension Essential hypertension Problem 02/20/2020 12:00:00 AM EST [facility] ([facility]) M46.1 [id number] Bilateral sacroiliitis Problem 02/14/2020 12:00:00 AM EDT eCW1 ([facility]) 412289912 Migraine without aura, not refractory Mi graine without aura, not refractory Problem 09/28/2019 12:00:00 AM EDT MED[facility] ([facility], ) 590.10 Pyelonephritis Acute Bacterial Pyelonephritis Acute Ba cterial Problem 05/30/2019 12:00:00 AM EST SOFIA ([facility]) 590.10 Pyelonephritis Acute Bacterial Pyelonephritis Acute Ba cterial Problem 05/30/2019 12:00:00 AM EST SOFIA ([facility]) 590.10 Pyelonephritis Acute Bacterial Pyelonephritis Acute Ba cterial Problem 05/30/2019 12:00:00 AM EST SOFIA ([facility]) 590.10 Pyelonephritis Acute Bacterial Pyelonephritis Acute Ba cterial Problem 05/30/2019 12:00:00 AM EST SOFIA ([facility]) 590.10 Pyelonephritis Acute Bacterial Pyelonephritis Acute Ba cterial Problem 05/30/2019 12:00:00 AM EST SOFIA ([facility]) 590.10 Pyelonephritis Acute Bacterial Pyelonephritis Acute Ba cterial Problem 05/30/2019 12:00:00 AM EST SOFIA ([facility]) 590.10 Pyelonephritis Acute Bacterial Pyelonephritis Acute Ba cterial Problem 05/30/2019 12:00:00 AM EST SOFIA ([facility]) 04774973 Plantar fascial fibromatosis Plantar fascial fibromato sis Problem 05/15/2019 12:00:00 AM EST [facility] ([facility] M47.816 [id number] Spondylosis without myelopathy or radiculopathy, lumbar region Problem 03/07/2019 12:00:00 AM EST eCW1 ([facility]) M47.817 [id number] Spondylosis without myelopathy or radiculopathy, lumbosacral region Problem 03/07/2019 12:00:00 AM EST eCW1 ([facility]) N390 Urinary tract infection, site not specif ied Urinary tract infection, site not specified Diagnosis 10/10/2019 04:06:00 PM EDT [facility] N10 Acute pyelonephritis Acute pyelonephritis Diagnosis 07/11/2019 03:28:00 PM EDT [facility] D72.829 Elevated white blood cell count, unspeci fied Elevated white blood cell count, unspecified Diagnosis 06/19/2019 10:26:35 AM EST [facility] Surgeries/Procedures Procedure Description Date Indications Data Source(s) Extended Individual Psychotherapy - 45 min 04/26/2020 12:00:00 AM EST - 04/26/2020 12:00:00 AM EST [facility] ([facility]) Extended Individual Psychotherapy - 45 min 1 12:00:00 AM EST [facility] ([facility]) MHC Telemed E/M Lvl 3--Est pt 04/17/2020 12:00:00 AM EST - 04/17/2020 12:00:00 AM EST [facility] ([facility]) MHC Telemed E/M Lvl 3--Est pt 04/17/2020 12:00:[address] [facility] ([facility]) ARTHROCENTESIS ASPIR&/INJECTION MAJOR JT/BURSA 020 12:00:00 AM EST [facility] ([facility]) Extended Individual Psychotherapy - 45 min 04/02/2020 12:00:00 AM EST - 04/02/2020 12:00:00 AM EST [facility] ([facility]) Extended Individual Psychotherapy - 45 min 0 12:00:00 AM EST [facility] ([facility]) Psychiatric Diagnostic Evaluation (Non-Medical) 03/20/2020 12:00:00 AM EST - 03/20/2020 12:00:00 AM EST [facility] ([facility]) Psychiatric Diagnostic Evaluation (Non-Medical) 2019 12:00:00 AM EST [facility] ([facility]) Pain Procedure Log 03/19/2020 12:00:00 AM EST eCW1 ([facility]) PARING/CUTTING BENIGN HYPERKERATOTIC LESION 2-4 2019 12:00:00 AM EST [facility] ([facility] DEBRIDEMENT NAIL ANY METHOD > 03/11/2020 12:00:00 AM EST [facility] ([facility] Medication: Benadryl Tab 25mg Orally (Diphenhydramine) 03/05/2020 12:00:00 AM EST eCW1 ([facility]) Medication: Oxycodone HCL Tab 10mg Orally 03/05/2020 1 2:00:00 AM EST eCW1 ([facility]) Unclassified drugs 03/05/2020 12:00:00 AM EST eCW1 ([facility]) Brief Individual Psychotherapy - 30 min 02/28/2020 12:00:00 AM EST - 02/28/2020 12:00:00 AM EST [facility] ([facility]) Brief Individual Psychotherapy - 30 min 02/28/2020 12: 00:00 AM EST [facility] ([facility]) RADEX WRIST COMPLETE MINIMUM 3 VIEWS 02/27/2020 12:00: 00 AM EST [facility] ([facility] ) RADEX WRIST COMPLETE MINIMUM 3 VIEWS 02/27/2020 12:00: 00 AM EST [facility] ([facility] ) X-Ray Hip Unilateral With Pelvis 2-3 Views 01/29/2020 12:00:00 AM EDT [facility] ([facility] ) DEBRIDEMENT NAIL ANY METHOD > 01/02/2020 12:00:00 AM EDT [facility] ([facility] X-Ray Hip Unilateral With Pelvis 2-3 Views 12/28/2019 12:00:00 AM EDT [facility] ([facility]) TEMPMHCTelemed 30" Psychotherapy 020 12:00:00 AM EDT - 10/19/2019 12:00:00 AM EDT [facility] ([facility]) TEMPMHCTelemed 30" Psychotherapy 10/19/2019 12:00:00 A M EDT [facility] ([facility]) X-Ray Hip Unilateral With Pelvis 2-3 Views 10/17/2019 12:00:00 AM EDT [facility] ([facility]) MHC Telemed E/M Lvl 3--Est pt 10/05/2019 12:00:00 AM EDT - 10/05/2019 12:00:00 AM EDT [facility] ([facility]) MHC Telemed E/M Lvl 3--Est pt 10/05/2019 12:00:00 AM E DT [facility] ([facility]) TEMPMHCTelemed 30" Psychotherapy 12:00:00 AM EDT - 10/03/2019 12:00:00 AM EDT [facility] ([facility]) TEMPMHCTelemed 30" Psychotherapy 10/03/2019 12:00:00 A M EDT [facility] ([facility]) PARING/CUTTING BENIGN HYPERKERATOTIC LESION 2-4 2019 12:00:00 AM EDT [facility] ([facility] DEBRIDEMENT NAIL ANY METHOD 6/> 09/22/2019 12:00:00 AM EDT [facility] ([facility] INJ PARAVERT F JNT L/S 1 LEV 09/18/2019 12:00:00 AM ED T eCW1 ([facility]) INJ PARAVERT F JNT L/S 2 LEV 09/18/2019 12:00:00 AM ED T eCW1 ([facility]) MHC Telemed E/M Lvl 3--Est pt 09/13/2019 12:00:00 AM EDT - 09/13/2019 12:00:00 AM EDT [facility] ([facility]) MHC Telemed E/M Lvl 3--Est pt 09/13/2019 12:00:00 AM E DT [facility] ([facility]) ESTABILISHED PATIENT [facility] CHARGE 12:00:00 AM EDT eCW1 ([facility]) Eligible professional attests to figueroa morrison in the medical record they obtained, updated, or reviewed the patient's current medications 09/04/2019 12:00:00 AM EDT eCW1 ([facility]) Pain assessment documented as positive u sing a standardized tool and a follow-up plan is documented 09/04/2019 12:00:00 AM EDT e CW1 ([facility]) X-Ray Hips Bilateral With Pelvis 3-4 Views 08/17/2019 12:00:00 AM EDT DORA ([facility] ) PHYSICIAN TELEPHONE EVALUATION 11-20 MIN 07/31/2019 12 :00:00 AM EDT eCW1 ([facility]) TEMPMHCTelemed 20" psychotherapy 12:00:00 AM EDT - 07/24/2019 12:00:00 AM EDT [facility] ([facility]) TEMPMHCTelemed 20" psychotherapy 07/24/2019 12:00:00 A M EDT [facility] ([facility]) TEMPMHCTelemed 30" Psychotherapy 12:00:00 AM EDT - 07/19/2019 12:00:00 AM EDT [facility] ([facility]) TEMPMHCTelemed 30" Psychotherapy 07/19/2019 12:00:00 A M EDT [facility] ([facility]) MHC Telemed E/M Lvl 3--Est pt 07/12/2019 12:00:00 AM EDT - 07/12/2019 12:00:00 AM EDT [facility] ([facility]) MHC Telemed E/M Lvl 3--Est pt 07/12/2019 12:00:00 AM E DT [facility] ([facility]) Lumbar/Sacral w/ Imaging 07/11/2019 12:00:00 AM EDT eCW1 ([facility]) RADXPS IN END [id number] PXD 07/11/2019 12:00:00 AM ED T eCW1 ([facility]) TEMPMHCTelemed 30" Psychotherapy 020 12:00:00 AM EDT - 07/07/2019 12:00:00 AM EDT [facility] ([facility]) TEMPMHCTelemed 30" Psychotherapy 07/07/2019 12:00:00 A M EDT [facility] ([facility]) FLOW CYTOMETRY CELL CYCLE/DNA BHARATHI LEUKEMIA / LYMPHOM A PHENOTYPE, PERIPHERAL BLOOD Routine 06/19/2019 12:36 PM EST 06/19/2019 05:36 :00 PM [facility] Brief Individual Psychotherapy - 30 min 06/14/2019 12:00:00 AM EST - 06/14/2019 12:00:00 AM EST [facility] ([facility]) Brief Individual Psychotherapy - 30 min 06/14/2019 12: 00:00 AM EST [facility] ([facility]) Brief Individual Psychotherapy - 30 min 05/17/2019 12:00:00 AM EST - 05/17/2019 12:00:00 AM EST [facility] ([facility]) Brief Individual Psychotherapy - 30 min 05/17/2019 12: 00:00 AM EST [facility] ([facility]) Brief Individual Psychotherapy - 30 min 05/02/2019 12:00:00 AM EST - 05/02/2019 12:00:00 AM EST [facility] ([facility]) Brief Individual Psychotherapy - 30 min 05/02/2019 12: 00:00 AM EST [facility] ([facility]) DEBRIDEMENT NAIL ANY METHOD 6/> 04/28/2019 12:00:00 AM EST [facility] ([facility] INJECTION 1 TENDON SHEATH/LIGAMENT APONEUROSIS 020 12:00:00 AM EST [facility] ([facility] Brief Individual Psychotherapy - 30 min 04/17/2019 12:00:00 AM EST - 04/17/2019 12:00:00 AM EST [facility] ([facility]) Brief Individual Psychotherapy - 30 min 04/17/2019 12: 00:00 AM EST [facility] ([facility]) OFFICE OUTPATIENT VISIT 15 MINUTES 04/13 12:00:00 AM EST - 04/13/2019 12:00:00 AM EST [facility] ([facility]) OFFICE OUTPATIENT VISIT 15 MINUTES 04/13/2019 12:00:00 AM EST [facility] ([facility]) Brief Individual Psychotherapy - 30 min 04/05/2019 12:00:00 AM EST - 04/05/2019 12:00:00 AM EST [facility] ([facility]) Brief Individual Psychotherapy - 30 min 04/05/2019 12: 00:00 AM EST [facility] ([facility]) Brief Individual Psychotherapy - 30 min 03/22/2019 12:00:00 AM EST - 03/22/2019 12:00:00 AM EST [facility] ([facility]) Brief Individual Psychotherapy - 30 min 03/22/2019 12: 00:00 AM EST [facility] ([facility]) Brief Individual Psychotherapy - 30 min 03/06/2019 12:00:00 AM EST - 03/06/2019 12:00:00 AM EST [facility] ([facility]) Brief Individual Psychotherapy - 30 min 03/06/2019 12: 00:00 AM EST [facility] ([facility]) OFFICE OUTPATIENT VISIT 15 MINUTES 03/02 12:00:00 AM EST - 03/02/2019 12:00:00 AM EST [facility] ([facility]) OFFICE OUTPATIENT VISIT 15 MINUTES 03/02/2019 12:00:00 AM EST [facility] ([facility]) Results ID Date Data Source [id number] 04/28/2020 10:00:00 AM EST [facility] Name Value Range Interpretation Code Description Data Teresa rce(s) Supporting Document(s) SARS coronavirus 2 RNA Not Detected [facility] [place] This lab was ordered by [facility] and reported by [facility]. ID Date Data Source [id number] 04/24/2020 02:00:00 PM EST [facility] Name Value Range Interpretation Code Description Data Teresa rce(s) Supporting Document(s) SARS coronavirus 2 RNA Not Detected [facility] [place] This lab was ordered by [facility] and reported by [facility]. ID Date Data Source [id number] 04/06/2020 10:30:00 AM EST [facility] ([facility]) Name Value Range Interpretation Code Description Data Teresa rce(s) Supporting Document(s) Surgical pathology study Laboratory test result [facility] ([facility]) 04/08/2020957 PERPHERAL SMEAR REVIEW Peripheral smear: Leukocytosis associated with neutrophilia, monocytosis and lymphocytopenia. Erythrocytes appear normal in number and are overall normochromic. Platelet count within normal limits. 04/08/2020957 Signed LISA CABRERA MD 04/08/2020 1004 ID Date Data Source [id number] 04/06/2020 09:58:00 AM EST [facility] ([facility]) Name Value Range Interpretation Code Description Data [facility] rce(s) Supporting Document(s) Hemoglobin 13.0 g/dL 12.0-15.5 Normal (applies to non-numeric resul ts) [facility] ([facility]) Red Blood Count 4.35 10 4.00-5.40 Normal (applies to non-numeric results) [facility] ([facility]) White Blood Count 17.6 10 4.0-10.0 Above high normal [facility] ([facility]) Mean Corpuscular Volume 95.4 fl 80.0-96.0 Normal ( applies to non-numeric results) [facility] ([facility]) Mean Corpuscular Hemoglobin 29.9 pg 27.0-33.0 Norm al (applies to non-numeric results) [facility] ([facility]) Hematocrit 41.5 % 36.0-47.0 Normal (applies to non-numeric resul ts) [facility] ([facility]) Red Cell Distribution Width 14.0 % 11.5-14.5 Norm al (applies to non-numeric results) [facility] ([facility]) Platelet Count, Automated 395 10 150-450 Normal (applies to non-numeric results) [facility] ([facility]) Mean Corpuscular HGB Conc 31.3 g/dL 32.0-36.5 Below low normal [facility] ([facility]) Lymph % 17.4 % 24.0-44.0 Below low normal [facility] ( [facility]) Neutrophils % 74.6 % 36.0-66.0 Above high normal MEDE NT ([facility]) Avery % 6.6 % 0.0-5.0 Above high normal [facility] ([facility]) Baso % 0.3 % 0.0-1.0 Normal (applies to non-numeric resul ts) [facility] ([facility]) Eos % 0.1 % 0.0-3.0 Normal (applies to non-numeric resul ts) [facility] ([facility]) Immature Granulocyte % 1.0 % 0-3.0 Normal (applies to non-n umeric results) [facility] ([facility]) Nucleated Red Blood Cell % 0.0 % 0-0 Normal (applies to n on-numeric results) [facility] ([facility]) Lymph # 3.1 10 1.5-5.0 Normal (applies to non-numeric resul ts) [facility] ([facility]) Neutrophils # 13.1 10 1.5-8.5 Above high normal MEDE NT ([facility]) Avery # 1.2 10 0.0-0.8 Above high normal [facility] ([facility]) Baso # 0.1 10 0.0-0.2 Normal (applies to non-numeric resul ts) [facility] ([facility]) Eos # 0.0 10 0.0-0.5 Normal (applies to non-numeric resul ts) [facility] ([facility]) ID Date Data Source [id number] 04/06/2020 09:58:00 AM EST [facility] ([facility]) Name Value Range Interpretation Code Description Data Teresa rce(s) Supporting Document(s) Triglycerides Level 91 mg/dL Normal (applies to non-nume cecilia results) [facility] ([facility]) Cholesterol Level 172 mg/dL Normal (applies to non-numeri c results) [facility] ([facility]) HDL Cholesterol 55 mg/dL Normal (applies to non-numeric results) [facility] ([facility]) Non-HDL-C 117 mg/dL Normal (applies to non-numeric resul ts) [facility] ([facility]) LDL Cholesterol 99 mg/dL Normal (applies to non-numeric results) [facility] ([facility]) Cholesterol Risk Ratio 3.127 Normal (applies to non-n umeric results) [facility] ([facility]) ID Date Data Source [id number] 04/06/2020 09:58:00 AM EST [facility]) Name Value Range Interpretation Code Description Data Teresa rce(s) Supporting Document(s) Slide Review Laboratory test result Normal (applies to non -numeric results) [facility]) Slide and/or specimen referred to Pathol ogist for review. Results of the review are located in the EMR Pathology module under Peripheral Smear when completed. Source Laboratory test result Normal (applies to non-n umeric results) [facility] ([facility]) PERIPHERAL SMEAR Reason For Review Laboratory test result Normal (applies to non-numeric results) [facility] ([facility]) ID Date Data Source [id number] 04/06/2020 09:58:00 AM EST [facility] ([facility]) Name Value Range Interpretation Code Description Data Teresa rce(s) Supporting Document(s) Calcidiol [Mass/volume] in Serum or Plasma 67.5 ng/mL 30.0- 100.0 Normal (applies to non-numeric results) [facility] ([facility]) ID Date Data Source [id number] 04/06/2020 09:58:00 AM EST [facility] ([facility]) Name Value Range Interpretation Code Description Data Teresa rce(s) Supporting Document(s) Vitamin B12 Level 1352 pg/mL Normal (applies to non-numeri c results) [facility] ([facility]) VITAMIN B12 NORMAL RANGE NORMAL 247 - 911 PG/ML INDETERMINATE 211 - 246 PG/ML DEFICIENT LESS THAN 211 PG/ML Folate 10.0 ng/mL Normal (applies to non-numeric resul ts) [facility] ([facility]) FOLATE NORMAL RANGE NORMAL GREATER THAN 5.4 NG/ML INDETERMINATE 3.4-5.4 NG/ML DEFICIENT LESS THAN 3.4 NG/ML ID Date Data Source [id number] 04/06/2020 09:58:00 AM EST [facility] ([facility]) Name Value Range Interpretation Code Description Data Teresa rce(s) Supporting Document(s) Free T4 0.95 ng/dL 0.76-1.46 Normal (applies to non-numeric resul ts) [facility] ([facility]) Thyroid Stimulating Hormone 0.409 uIU/ML 0.358-3.740 Norm al (applies to non- numeric results) [facility] ([facility]) ID Date Data Source [id number] 04/06/2020 09:58:00 AM EST [facility] ([facility]) Name Value Range Interpretation Code Description Data Teresa rce(s) Supporting Document(s) Hemoglobin A1c 6.5 % Normal (applies to non-numeric r esults) [facility] ([facility]) <content>REFERENCE RANGES:</content><br/ ><content></content>
<content><=5.6% NORMAL</content>
<content>5.7-6.4% SUGGESTS IMPAIRED GLUCOSE METABOLISM/PREDIABETIC</content>
<content>>= 6.5% ABNORMAL</content>
<content></content> Estimated Average Glucose 140 mg/dL 60-110 Above high normal [facility] ([facility]) ID Date Data Source [id number] 04/06/2020 09:58:00 AM EST [facility] ([facility]) Name Value Range Interpretation Code Description Data Teresa rce(s) Supporting Document(s) Iron (Fe) 53 ug/dL 50-170 Normal (applies to non-numeric resul ts) [facility] ([facility]) Total Iron Binding Capacity 279 ug/dL 250-450 Norm al (applies to non-numeric results) [facility] ([facility]) Percent Saturation 19.0 % 13.2-45.0 Normal (applies to non-numer ic results) [facility] ([facility]) ID Date Data Source [id number] 04/06/2020 09:58:00 AM EST [facility] ([facility]) Name Value Range Interpretation Code Description Data Teresa rce(s) Supporting Document(s) Glucose, Fasting 182 mg/dL 70-100 Above high normal [facility] [facility] ([facility]) Glomerular Filtration Rate Laboratory test result Normal (applies to non- numeric results) [facility] ([facility]) <content>Units are mL/min/1.73 m2</content>
<content></content>
<content>Chronic Kidney Disease Staging per NKF:</content>
<content></content>
<content>Stage I & II GFR >=60 Normal to Mildly Decreased</content>
<content>Stage III GFR 30- 59 Moderately Decreased</content>
<content>Stage IV GFR 15-29 Severely Decreased</content>
<content>Stage V GFR <15 Very Little GFR Left</content>
<content>ESRD GFR <15 on CHIP MIXER</content>
<content></content> Blood Urea Nitrogen 12 mg/dL 7-18 Normal (applies to non-nume cecilia results) [facility] ([facility]) Creatinine For GFR 0.79 mg/dL 0.55-1.30 Normal (applies to non -numeric results) [facility] ([facility]) Chloride Level 107 meq/L 98-107 Normal (applies to non-numeric r esults) [facility] ([facility]) Potassium Serum 4.1 meq/L 3.5-5.1 Normal (applies to non-numeric results) [facility] ([facility]) Sodium Level 141 meq/L 136-145 Normal (applies to non-numeric res ults) [facility] ([facility]) Carbon Dioxide Level 26 meq/L 21-32 Normal (applies to non-num chinmay results) [facility] ([facility]) Anion Gap 8 meq/L 8-16 Normal (applies to non-numeric resul ts) [facility] ([facility]) Ast/Sgot 6 U/L 7-37 Below low normal [facility] ( [facility]) Alkaline Phosphatase 84 U/L 45-117 Normal (applies to non-num chinmay results) [facility] ([facility]) Alt/SGPT 24 U/L 12-78 Normal (applies to non-numeric resul ts) [facility] ([facility]) Calcium Level 9.1 mg/dL 8.5-10.1 Normal (applies to non-numeric re sults) [facility] ([facility]) Total Protein 7.0 GM/DL 6.4-8.2 Normal (applies to non-numeric re sults) [facility] ([facility]) Bilirubin,Total 0.2 mg/dL 0.2-1.0 Normal (applies to non-numeric results) [facility] ([facility]) Albumin 3.2 GM/DL 3.2-5.2 Normal (applies to non-numeric resul ts) [facility] ([facility]) Albumin/Globulin Ratio 0.8 1.2-2.2 Below low normal [facility] ([facility]) ID Date Data Source [id number] 03/27/2020 11:59:00 AM EST [facility] ([facility]) Name Value Range Interpretation Code Description Data Teresa rce(s) Supporting Document(s) Inhouse Leukocytes Laboratory test result [facility] ([facility]) Inhouse Urobilinogen Laboratory test result [facility] ([facility]) Inhouse Protein Laboratory test result [facility] ([facility] Inhouse Nitrite Laboratory test result [facility] ([facility]) Inhouse Specific Noble 1.010 [facility] ([facility]) Inhouse PH 8 [facility] ([facility]) Inhouse Hemoglobin Laboratory test result [facility] ([facility]) Inhouse Glucose Laboratory test result [facility] ([facility]) Inhouse Ketones Laboratory test result [facility] ([facility]) Inhouse Bilirubin Laboratory test result [facility] ([facility]) ID Date Data Source [id number] 03/04/2020 12:00:00 AM EST [facility] Amelia DEL ROSARIO Patient Name: DOMONIQUE TAVERAS [facility] Date of : [address] [address] Date of Exam: 03/04/2020#: Fax: [phone] EXAM: ARTHROCENTESIS LTHIP-ASPIR / INJ STEROID/PAIN MEDSLEFT HIP INJECTION:The procedure was performed by MICHAEL Vela under the generalsupervision of Dr. Pagan.The benefits and risks including, but not limited to pain, infection,bleeding, and anaphylaxis were explained to the patient and informedconsent was obtained.The left femoral neck was localized using fluoroscopic guidance. The skinwas prepped and draped in a sterile fashion. 1% Lidocaine was used as alocal anesthetic. Using fluoroscopic guidance, a #22 gauge spinal needlewas inserted and advanced to the femoral neck. 0.5 cc of Omnipaque 300 wasinjected to verify placement. 7 cc of a solution containing 5 cc of 1%Lidocaine and 2 cc of DepoMedrol 40 mg was injected into the joint space.The needle was then removed.The patient tolerated the procedure well and there were no immediatecomplications.Fluoroscopy time was 3 seconds at 3 pulses/second. This is equal to 0.75seconds continuous fluoroscopy time which is a 75% reduction in radiation.Scott Pagan, MARY/Edda you for referring STELLA HISCOCK to our office. Electronically Signed - SCOTT PAGAN MD 03/06/20 17:25 Name Value Range Interpretation Code Description Data Teresa rce(s) Supporting Document(s) ID Date Data Source [id number] 03/04/2020 12:00:00 AM EST [facility] Amelia DEL ROSARIO Patient Name: DOMONIQUE TAVERAS [facility] Date [place] : 1975[place] [address] Date of Exam: 03/04/2020PH#: Fax: [phone] EXAM: ARTHROCENTESIS LTHIP-ASPIR / INJ STEROID/PAIN MEDSLEFT HIP INJECTION:The procedure was performed by MICHAEL Vela under the generalsupervision of Dr. Pagan.The benefits and risks including, but not limited to pain, infection,bleeding, and anaphylaxis were explained to the patient and informedconsent was obtained.The left femoral neck was localized using fluoroscopic guidance. The skinwas prepped and draped in a sterile fashion. 1% Lidocaine was used as alocal anesthetic. Using fluoroscopic guidance, a #22 gauge spinal needlewas inserted and advanced to the femoral neck. 0.5 cc of Omnipaque 300 wasinjected to verify placement. 7 cc of a solution containing 5 cc of 1%Lidocaine and 2 cc of DepoMedrol 40 mg was injected into the joint space.The needle was then removed.The patient tolerated the procedure well and there were no immediatecomplications.Fluoroscopy time was 3 seconds at 3 pulses/second. This is equal to 0.75seconds continuous fluoroscopy time which is a 75% reduction in radiation.MARY Osei/Edda you for referring STELLA TAVERAS to our office. Electronically Signed - SCOTT PAGAN MD 03/06/20 17:25 Name Value Range Interpretation Code Description Data Teresa rce(s) Supporting Document(s) ID Date Data Source [id number] 02/29/2020 01:00:00 PM EST [facility] Name Value Range Interpretation Code Description Data Teresa rce(s) Supporting Document(s) SARS coronavirus 2 RNA [facility] This lab was ordered by [facility] and reported by [facility]. ID Date Data Source [id number] 02/06/2020 03:25:08 PM EDT [facility] Name Value Range Interpretation Code Description Data Teresa rce(s) Supporting Document(s) WBC 12.3 10*3/uL (4.1-11.0) H [facility] RBC 4.09 10*6/uL (4.00-5.40) [facility] HGB 13.0 g/dL (12.0-16.0) [facility] HCT 37.9 % (36.0-47.0) [facility] MCV 92.8 fL (80.0-95.0) [facility] MCH 31.8 pg (27.0-32.0) [facility] MCHC 34.3 g/dL (32.0-36.0) [facility] RDW 13.5 % (10.5-14.5) [facility] PLT 357 10*3/uL (150-450) [facility] MPV 8.4 fL (7.1-10.7) [facility] NEUT % 49.9 % (35.0-75.0) [facility] LYMPH % 38.7 % (16.0-52.0) [facility] MONO % 7.1 % (0.0-8.0) [facility] EOS % 4.1 % (0.0-5.0) [facility] BASO % 0.2 % (0.0-4.0) [facility] NEUT # 6.1 10*3/uL (1.8-7.7) [facility] LYMPH # 4.7 10*3/uL (1.2-4.8) [facility] MONO # 0.9 10*3/uL (0.0-0.8) H [facility] Eosinophils [#/volume] in Blood by Automated count 0.5 10*3/uL (0.0-0 .5) [facility] BASO # 0.0 10*3/uL (0.0-0.2) [facility] ID Date Data Source [id number] 02/06/2020 03:31:53 PM EDT [facility] Name Value Range Interpretation Code Description Data Teresa rce(s) Supporting Document(s) HEMOGLOBIN A1C @ 6.5 % (4.0-6.0) H [facility] Performed using [employer] [place] immunoassa y.Care must be taken when interpreting MeM2dmttjtlb in patients with a hemoglobin variantor decreased erythrocyte lifespan. Values 5.7 - 6.4% suggest prediabetes.Values >=6.5% are diagnostic for diabetes.REFERENCE: DIABETES CARE 2018: 41(S13-S27). EST AVERAGE GLUCOSE 140 mg/dL [facility] ID Date Data Source [id number] 02/06/2020 03:53:28 PM EDT [facility] Name Value Range Interpretation Code Description Data Teresa rce(s) Supporting Document(s) VITAMIN B12 @ 1396 pg/mL (193-986) H [facility] ID Date Data Source [id number] 02/06/2020 03:53:28 PM EDT [facility] Name Value Range Interpretation Code Description Data Teresa rce(s) Supporting Document(s) SODIUM 143 mmol/L (136-145) [facility] POTASSIUM 4.5 mmol/L (3.6-5.2) [facility] CHLORIDE 109 mmol/L (100-108) H [facility] CO2 30 mmol/L (22-31) [facility] ANION GAP 4 mmol/L (7-16) L [facility] UREA NITROGEN 10 mg/dL (7-24) [facility] CREATININE 0.75 mg/dL (0.60-1.00) [facility] BUN/CREAT RATIO 13.3 RATIO (10.0-20.0) [facility] GLUCOSE 108 mg/dL (70-99) H [facility] CALCIUM 9.0 mg/dL (8.4-10.2) [facility] TOTAL PROTEIN 6.6 g/dL (6.4-8.2) [facility] ALBUMIN 3.2 g/dL (3.5-4.6) L [facility] GLOBULIN 3.4 g/dL (2.7-4.3) [facility] ALB/GLOB RATIO 0.9 RATIO [facility] ALKALINE PHOSPHATASE 86 U/L (45-117) [facility] BILIRUBIN,TOTAL 0.2 mg/dL (0.0-1.0) [facility] PLEASE NOTE:Total bilirubin results may be falselyelevated in patients taking Eltrombopag. AST (SGOT) 13 U/L (11-39) [facility] ALT (SGPT) 23 U/L (12-78) [facility] GFR >60 ml/min/1.73m2 (>59) [facility] GFR ( AMER) >60 ml/min/1.73m2 (>59) [facility] GFR INTERPRETATION [facility] --NORMAL KIDNEY FUNCTION OR MILD DISEASE - GFR >OR= 60CHRONIC KIDNEY DISEASE - GFR 15 - 59RENAL FAILURE - GFR <15 Est. GFR calculation based on the MDRDstudy equation, which assumes a steadystate for creatinine. Est. GFR should notbe used for medication dosing. ID Date Data Source [id number] 02/06/2020 03:53:28 PM EDT [facility] Name Value Range Interpretation Code Description Data Teresa rce(s) Supporting Document(s) IRON,TOTAL @ 49 ug/dL (35-150) [facility] UIBC @ 201 ug/dL (130-375) [facility] TIBC @ 250 ug/dL (250-450) [facility] % SATURATION 20 % (12-50) [facility] ID Date Data Source [id number] 02/06/2020 03:53:28 PM EDT [facility] Name Value Range Interpretation Code Description Data Teresa rce(s) Supporting Document(s) MAGNESIUM 2.3 mg/dL (1.7-2.4) [facility] ID Date Data Source [id number] 02/06/2020 03:53:28 PM EDT [facility] Name Value Range Interpretation Code Description Data Teresa rce(s) Supporting Document(s) PHOSPHORUS 3.4 mg/dL (2.5-4.5) [facility] ID Date Data Source [id number] 02/06/2020 03:53:28 PM EDT [facility] Name Value Range Interpretation Code Description Data Teresa rce(s) Supporting Document(s) FERRITIN @ 51 ng/mL (8-252) [facility] ID Date Data Source [id number] 02/06/2020 04:18:55 PM EDT [facility] Name Value Range Interpretation Code Description Data Teresa rce(s) Supporting Document(s) 25 HYDROXY VIT D @ 55 ng/mL (31-100) [facility] A REVIEW OF THE LITERATURE SUGGESTS THEF OLLOWING RANGES FOR THE CLASSIFICATIONOF 25-OH VITAMIN D STATUS: VITAMIN D STATUS 25-OH VITAMIN D DEFICIENCY <20 NG/MLINSUFFICIENCY 20-30 NG/MLSUFFICIENCY 31 - 100 NG/MLTOXICITY > 100 NG/ML A PEDIATRIC REFERENCE RANGE HAS NOT BEENESTABLISHED USING THIS METHOD. ID Date Data Source [id number] 02/09/2020 06:25:31 AM EDT [facility] Name Value Range Interpretation Code Description Data Teresa rce(s) Supporting Document(s) SR HCT 37.9 % [facility] FOLATE RBC [facility] See NoteReference range: >=366 RBC FOLAT E result is greater than 1236 ng/mL Performed By: [facility] [address] [place] [address] [address] [employer] Tile Setter: Annamaria Jennings MD ID Date Data Source [id number] 11/06/2019 12:00:00 AM EDT [facility] Amelia DEL ROSARIO Patient Name: STELLA TAVERAS [id number] [facility] Date of : 1975[place] [address] Date of Exam: 11/06/2019#: Fax: [phone] EXAM: MRI HIP LEFT WITHOUT CONTRASTCLINICAL INFORMATION: Left hip pain x 3 months. No trauma.There are no prior left hip MRI's for comparison.3T multiplanar MRI imaging of the left hip was obtained using varioussequences.Standard large gxwld-sk-ecjk T1 and STIR imaging of the pelvis was comparedto the prior examination 10/08/2017 similar sequences. That prior exam is adedicated right hip MRI.There is no significant change in the lefty earance of the hip joint spaces.There is a left hip joint effusion. Multi-focal subchondral T2 hypersignalis seen in the left femoral head with diffuse appearing T2 hypersignal inthe anterior left acetabulum. All of this represents a change whencompared to the prior large aagia-ih-qydv images. There is left hipmarginal osteophytosis which has developed. There is an unchangedincidental synovial herniation pit on the left. There is T2 hypersignal inthe left hip trochanteric tendinobursal region. Degenerative changes areseen involving the imaged portion of the spine. The sacroiliac joints areunchanged.Dedicated small kajtj-zh-qabg magnified images of the left hip show theaforementioned changes in better detail although there is significantmotion artifact, particularly in the axial and coronal planes. Due to theartifact, the labrum is obscured. There is no evidence of a mass or masseffect. There is no free fluid in the pelvis.IMPRESSION:Left hip degenerative changes as described above with subchondral femoralhead and acetabular edema all representing a change from the prior exam.There is a slight left hip joint effusion. Other findings and limitationsas described above.Accredited by the [employer] in MR.DARRICK Andrade/Edda you for referring STELLA TAVERAS to our office. Electronically Signed - MARTHA DANIELS DO 11/07/19 11:59 Name Value Range Interpretation Code Description Data Teresa rce(s) Supporting Document(s) ID Date Data Source [id number] 11/02/2019 02:00:00 PM [facility] ([facility]) Name Value Range Interpretation Code Description Data Teresa rce(s) Supporting Document(s) Reported Physicians See Note Reported Physici saima BLACK ([facility]) Note: Reported Physicians:Ordering: Amelia [id number]: Christopher Woo To: Christopher Woo To: Orville Iverson ID Date Data Source [id number] 11/02/2019 02:00:00 PM EDT [facility] ([facility]) Name Value Range Interpretation Code Description Data Teresa rce(s) Supporting Document(s) CORONAVIRUS 2019 NASOPHARYGEAL See Note CORON AVIRUS 2019 NASOPHARYGEAL [facility] ([facility]) Note: Testing was performed using the nm bas(R) SARS-CoV-2 test.This test was developed and its performance characteristicsdetermined by [employer]. This test has not beenFDA cleared or approved. This test has been authorized byA under an Emergency Use Authorization (EUA). This testis only authorized for the duration of time the declarationthat circumstances exist justifying the authorization ofthe emergency use of in vitro diagnostic tests fordetection of SARS-CoV-2 virus and/or diagnosis of COVID-19infection under section 564(b)(1) of the Act, 21 U.S.C.360bbb-3(b)(1), unless the authorization is terminated orrevoked sooner. When diagnostic testing is negative, thepossibility of a false negative result should be consideredin the context of a patient's recent exposures and thepresence of clinical signs and symptoms consistent withCOVID- 19. An individual without symptoms of COVID-19 andwho is not shedding SARS-CoV-2 virus would expect to have anegative (not detected) result in this ass ay.Performed at: - [facility] [place] [id number] Director: Eufemia Simpson MD, Phone: [phone] Detected Notes [TIMP] See Note NOTES [facility] ([facility]) Note: Comments: COVID TEST ID Date Data Source [id number] 11/02/2019 02:00:00 PM EDT [facility] Name Value Range Interpretation Code Description Data Teresa rce(s) Supporting Document(s) SARS coronavirus 2 RNA [facility] This lab was ordered by [facility] and reported by [facility]. ID Date Data Source [id number] 10/10/2019 10:15:00 AM EDT [facility] ([facility]) Name Value Range Interpretation Code Description Data Teresa rce(s) Supporting Document(s) Reported Physicians See Note Reported Physici ans [facility] ([facility]) Note: Reported Physicians:Ordering: Cirilo on, Orville MAttending: ZAYRA, LAWRENCEReferring: ZAYRA, LAWRENCEConsulting: AMPARO, JOCELYNCopy To: Zayra, LawrenceCopy To: Amparo, Nelly ID Date Data Source [id number] 10/10/2019 10:15:00 AM EDT [facility] ([facility]) Name Value Range Interpretation Code Description Data Teresa rce(s) Supporting Document(s) CULTURE URINE See Note CULTURE URINE [facility] ([facility]) Note: _CULTURE URINE_ $[id number]$$[id number]$$401015$$418617$$012168$$076661$$800729$$467390$$282015$$255242$$809318$$ 30$$049071$$517568$$897834$$810842$$586760 370661$$157879$$078549$$902864 -- Continued on next page --Patient: DARCY Ferreira Order: [id number] Page 2Culture: CULTURE URINE Status: Final ====$$[id number]$$[id number] DATE/TIME: 10/13/2019 07:06Culture: CULTURE URINE Status: FinalUrine Culture,Comprehensive: M0Lsdaa urogenital flora10,000-25,000 colony forming units per mLIsolate 1 Beta hemolytic Streptococcus, group B Flag: A . . . . . . .410,000-25,000 colony forming units per mLPeni cillin and ampicillin are drugs of choice for treatment ofbeta-hemolytic streptococcal infections. Susceptibility testing ofpenicillins and other beta- lactam agents approved by the FDA fortreatment of beta-hemolytic streptococcal infections need not beperformed routinely because nonsusceptible isolates are extremelyrare in any beta-hemolytic streptococcus and have not been reportedfor Streptococcus pyogenes (group A). (CLSI)Beta hemolytic Streptococcus, group B Flag: AP1 [facility] #: [id number] [address] [place] [address] [id number] [facility] [id number] Director : Calvin Jaeger MD NPI #:Ash Collector : [id number] REF ID Date Data Source [id number] 10/13/2019 09:12:00 AM EDT [facility] Name Value Range Interpretation Code Description Data Teresa rce(s) Supporting Document(s) CULTURE URINE [facility] _CULTURE URINE_$$[id number]$$[id number]$$931214$$594730$$176492$$190540$$317062$$078213$$865890$$ 296826$$809500$$267788$$791544$$896790$$934549$$902279$$912521$$904474$$446194$$ 178168$$270273$$566556$$957389$$885604$$304358$$474151$$868467 -- Continued on next page --Patient: DARCY Ferreira Order: [id number] Page 2Culture: CULTURE URINE Status: Final ====$$[id number]$$[id number] DATE/TIME: 10/13/2019 07:06Culture: CULTURE URINE Status: FinalUrine Culture,Comprehensive: H9Uvwio urogenital flora10,000-25,000 colony forming units per mLIsolate 1 Beta hemolytic Streptococcus, group B Flag: A . . . . . . .410,000-25,000 colony forming units per mLPenicillin and ampicillin are drugs of choice for treatment ofbeta-hemolytic streptococcal infections. Susceptibility testing ofpenicillins and other beta- lactam agents approved by the FDA fortreatment of beta-hemolytic streptococcal infections need not beperformed routinely because nonsusceptible isolates are extremelyrare in any beta-hemolytic streptococcus and have not been reportedfor Streptococcus pyogenes (group A). (CLSI)Beta hemolytic Streptococcus, group B Flag: AP1 Test performed by: [facility] #: [id number] [address] [place] [address] [id number] [facility] [phone] Director : Calvin Jaeger MD NPI #:Ash Collector : [email or web address] REF ID Date Data Source [id number] 10/01/2019 11:19:00 AM EDT [facility] Name Value Range Interpretation Code Description Data Teresa rce(s) Supporting Document(s) Bacteria identified in Urine by Culture Laboratory test result [facility] ([facility]) rx nitrofurantioin ID Date Data Source [id number] 09/15/2019 12:00:00 AM EDT [place] ([facility]) Name Value Range Interpretation Code Description Data Teresa rce(s) Supporting Document(s) Reported Physicians See Note Reported Physici ans [place] ([facility]) Note: Reported Physicians:Ordering: Amelia Tenorio [phone]: Christopher Woo To: Christopher Woo To: Orville Iverson ID Date Data Source [id number] 09/15/2019 12:00:00 AM EDT [place] ([facility]) Name Value Range Interpretation Code Description Data Teresa rce(s) Supporting Document(s) CORONAVIRUS 2019 NASOPHARYGEAL See Note CORON AVIRUS 2019 NASOPHARYGEAL [place] ([facility]) Note: This test was developed and its pe rformance characteristicsdetermined by [employer]. This test has not beenFDA cleared or approved. This test has been authorized byA under an Emergency Use Authorization (EUA). This testis only authorized for the duration of time the declarationthat circumstances exist justifying the authorization ofthe emergency use of in vitro diagnostic tests fordetection of SARS-CoV-2 virus and/or diagnosis of COVID- 19infection under section 564(b)(1) of the Act, 21 U.S.C.360bbb-3(b)(1), unless the authorization is terminated orrevoked sooner. When diagnostic testing is negative, thepossibility of a false negative result should be consideredin the context of a patient's recent exposures and thepresence of clinical signs and symptoms consistent withCOVID-19. An individual without symptoms of COVID-19 andwho is not shedding SARS-CoV-2 virus would expect to have anegative (not detected) result in this assay.Performed at: [place] [id number] Director: Eufemia Simpson MD, Phone: [phone] Detected Notes [TIMP] See Note NOTES [place] ([facility]) Note: Comments: COVID TESTING ID Date Data Source [id number] 09/15/2019 12:00:00 AM [facility] Name Value Range Interpretation Code Description Data Teresa rce(s) Supporting Document(s) SARS CORONAVIRUS 2 RNA [facility] This lab was ordered by [facility] and reported by [facility]. ID Date Data Source [id number] 09/08/2019 10:29:00 AM EDT [place] ([facility]) Name Value Range Interpretation Code Description Data Teresa rce(s) Supporting Document(s) Reported Physicians See Note Reported Graciela BLACK ([facility]) Note: Reported Physicians:Ordering: Taye lipscomb [phone]: Darnell Handy To: Darnell Handy To: Orville Iverson ID Date Data Source [id number] 09/08/2019 10:29:00 AM EDT [place] ([facility]) Name Value Range Interpretation Code Description Data Teresa rce(s) Supporting Document(s) TOTAL 25(OH) VITAMIN D 63.5 NG/ML Normal TOTAL 25([place]) VITAMIN D [facility]) ID Date Data Source [id number] 09/08/2019 10:29:00 AM EDT [place] ([facility]) Name Value Range Interpretation Code Description Data Teresa rce(s) Supporting Document(s) Reported Physicians See Note Reported Physici ans [place] ([facility]) Note: Reported Physicians:Ordering: Taye er [id number] AAttending: Darnell Handy To: Darnell Handy To: Orville Iverson ID Date Data Source [id number] 09/08/2019 10:29:00 AM EDT [place] ([facility]) Name Value Range Interpretation Code Description Data Teresa rce(s) Supporting Document(s) PHOSPHORUS LEVEL 2.7 MG/DL Normal PHOSPHORUS LEVEL [facility]) ID Date Data Source [id number] 09/08/2019 10:29:00 AM EDT [place] ([facility]) Name Value Range Interpretation Code Description Data Teresa rce(s) Supporting Document(s) Reported Physicians See Note Reported Physici ans [place] ([facility]) Note: Reported Physicians:Ordering: Taye er [id number] Fieldstending: Darnell Handy To: Darnell Handy To: Orville Iverson ID Date Data Source [id number] 09/08/2019 10:29:00 AM EDT [place] ([facility]) Name Value Range Interpretation Code Description Data Teresa rce(s) Supporting Document(s) IRON (FE) 84 UG/DL Normal IRON (FE) [place] ([facility]) TOTAL IRON BINDING CAPACITY 224 UG/DL Below low nor mal TOTAL IRON BINDING CAPACITY [place] ([facility]) PERCENT SATURATION 37.5 % Normal PERCENT SATURATIO N [facility]) ID Date Data Source [id number] 09/08/2019 10:29:00 AM EDT [place] ([facility]) Name Value Range Interpretation Code Description Data Teresa rce(s) Supporting Document(s) Reported Physicians See Note Reported [facility] ([facility]) Note: Reported Physicians:Ordering: Anabellb er [id number], Tu Lane: Darnell Handy To: Darnell Handy To: Orville Iverson ID Date Data Source [id number] 09/08/2019 10:29:00 AM EDT [place] ([facility]) Name Value Range Interpretation Code Description Data Teresa rce(s) Supporting Document(s) Ferritin [Interpretation] in Blood 50 NG/ML Normal F ERRITIN [place] ([facility]) ID Date Data Source [id number] 09/08/2019 10:29:00 AM EDT [place] ([facility]) Name Value Range Interpretation Code Description Data Teresa rce(s) Supporting Document(s) Reported Physicians See Note Reported [facility] ([facility]) Note: Reported Physicians:Ordering: Taye er [id number], Tu Lane: Darnell Handy To: Darnell Handy To: Orville Iversno ID Date Data Source [id number] 09/08/2019 10:29:00 AM EDT [place] ([facility]) Name Value Range Interpretation Code Description Data Teresa rce(s) Supporting Document(s) Hemoglobin A1c in Blood 6.3 % Normal HEMOGLOBIN A [address] [place] [address] ([facility]) Note: REFERENCE RANGES: 4.5-5.6% NOR MAL 5.7-6.4% SUGGESTS IMPAIRED GLUCOSE METABOLISM >= 6.5% ABNORMAL Glucose mean value [Moles/volume] in Blood Estimated f rom glycated hemoglobin 134 MG/DL Above high normal ESTIMATED AVERAGE GLUCOSE YOKO ESPINO ([facility]) ID Date Data Source [id number] 09/08/2019 10:29:00 AM EDT [place] ([facility]) Name Value Range Interpretation Code Description Data Teresa rce(s) Supporting Document(s) Reported Physicians See Note Reported [facility] ([facility]) Note: Reported Physicians:Ordering: Anabellb er [id number], Tu Zuletatengema: Darnell Handy To: Darnell Handy To: Orville Iverson ID Date Data Source [id number] 09/08/2019 10:29:00 AM EDT [place] ([facility]) Name Value Range Interpretation Code Description Data Teresa rce(s) Supporting Document(s) WHITE BLOOD COUNT 13.5 3/uL Above high normal WHITE BLOOD COUNT [facility]) RED BLOOD COUNT 4.42 6/uL Normal RED BLOOD COUNT GREE [facility]) Hemoglobin [Mass/volume] in Mixed venous blood by Oximetry 14.2 g/d l Normal HEMOGLOBIN [facility]) Hematocrit [Pure volume fraction] of Blood by Automated count 41.2 % Normal HEMATOCRIT [facility]) MEAN CORPUSCULAR VOLUME 93.2 fl Normal MEAN CORPUSC ULAR VOLUME [facility]) MEAN CORPUSCULAR HEMOGLOBIN 32.1 pg Normal MEAN COR PUSCULAR HEMOGLOBIN [facility]) MEAN CORPUSCULAR HGB CONC 34.5 g/dl Normal MEAN CORPU SCULAR HGB CONC [facility]) RED CELL DISTRIBUTION WIDTH 13.6 % Normal RED CELL DISTRIBUTION WIDTH [facility]) PLATELET COUNT, AUTOMATED 351 3/uL Normal PLATELET C OUNT, AUTOMATED [place] ([facility]) NUCLEATED RED BLOOD CELL % 0.0 % Normal NUCLEATED RED BLOOD CELL % [place] ([facility]) ID Date Data Source [id number] 09/08/2019 10:29:00 AM EDT [place] ([facility]) Name Value Range Interpretation Code Description Data Teresa rce(s) Supporting Document(s) Reported Physicians See Note Reported Physici ans [facility]) Note: Reported Physicians:Ordering: Taye lipscomb [id number], Tu AAttending: Darnell Handy To: Darnell Handy To: Orville Iverson ID Date Data Source [id number] 09/08/2019 10:29:00 AM EDT [place] ([facility]) Name Value Range Interpretation Code Description Data Teresa rce(s) Supporting Document(s) NEUTROPHILS % 55.8 % Normal NEUTROPHILS % [place] ([facility]) LYMPH % 33.4 % Normal LYMPH % [place] ([facility]) MONO % 5.8 % Above high normal MONO % [place] ([facility]) EOS % 4.1 % Above high normal EOS % [place] ([facility]) BASO % 0.4 % Normal BASO % [place] ([facility]) IMMATURE GRANULOCYTE % 0.5 % Normal IMMATURE GRAN ULOCYTE % [place] ([facility]) NEUTROPHILS # 7.5 3/uL Normal NEUTROPHILS # [place] ([facility]) LYMPH # 4.5 3/uL Normal LYMPH # [place] ([facility]) MONO # 0.8 3/uL Normal MONO # [place] ([facility]) EOS # 0.6 3/uL Above high normal EOS # [place] ([facility]) BASO # 0.1 3/uL Normal BASO # [place] ([facility]) ID Date Data Source [id number] 09/08/2019 10:29:00 AM EDT [place] ([facility]) Name Value Range Interpretation Code Description Data Teresa rce(s) Supporting Document(s) Reported Physicians See Note Reported Physici ans [place] ([facility]) Note: Reported Physicians:Ordering: Taye lipscomb [id number] AAttending: Darnell Handy To: Darnell Handy To: Orville Iverson ID Date Data Source [id number] 09/08/2019 10:29:00 AM EDT [place] ([facility]) Name Value Range Interpretation Code Description Data Teresa rce(s) Supporting Document(s) GLUCOSE, FASTING 147 MG/DL Above high normal GLUCOSE, FAS TING [place] ([facility]) BLOOD UREA NITROGEN 8 MG/DL Normal BLOOD UREA NITRO GEN [place] ([facility]) CREATININE FOR GFR 0.68 MG/DL Normal CREATININE FOR GF R [place] ([facility]) GLOMERULAR FILTRATION RATE > 60.0 Normal GLOMERULA R FILTRATION RATE [place] ([facility]) Note: Units are mL/min/1.73 m2 Chroni c Kidney Disease Staging per NKF: Stage I & II GFR >=60 Normal to Mildly Decreased Stage III GFR 30- 59 Moderately Decreased Stage IV GFR 15-29 Severely Decreased Stage V GFR <15 Very Little GFR Left ESRD GFR <15 on CHIP MIXER SODIUM LEVEL 141 MEQ/L Normal SODIUM LEVEL [place] ( [facility]) POTASSIUM SERUM 3.7 MEQ/L Normal POTASSIUM SERUM [facility] ([facility]) CHLORIDE LEVEL 108 MEQ/L Above high normal CHLORIDE LEVEL [place] ([facility]) CARBON DIOXIDE LEVEL 26 MEQ/L Normal CARBON DIOXIDE LEVEL [place] ([facility]) Anion gap in Body fluid 7 MEQ/L Below low normal ANION GAP [place] ([facility]) CALCIUM LEVEL 8.8 MG/DL Normal CALCIUM LEVEL [place] ([facility]) AST/SGOT 9 U/L Normal AST/SGOT [place] ([facility]) ALT/SGPT 18 U/L Normal ALT/SGPT [place] ([facility]) Alkaline phosphatase [Enzymatic activity/volume] in Se rum, Plasma or Blood 83 U/L Normal ALKALINE PHOSPHATASE [facility]) BILIRUBIN,TOTAL 0.5 MG/DL Normal BILIRUBIN,TOTAL [facility] ([facility]) TOTAL PROTEIN 6.7 GM/DL Normal TOTAL PROTEIN [place] ([facility]) Albumin [Mass/volume] in Blood by Bromocresol purple ( BCP) dye binding method 3.2 GM/DL Normal ALBUMIN [facility]) ALBUMIN/GLOBULIN RATIO 0.9 Below low normal ALBUMIN /GLOBULIN RATIO [place] ([facility]) ID Date Data Source [id number] 09/08/2019 10:29:00 AM EDT [place] ([facility]) Name Value Range Interpretation Code Description Data Teresa rce(s) Supporting Document(s) Reported Physicians See Note Reported Physici ans [place] ([facility]) Note: Reported Physicians:Ordering: Taye lipscomb [id number]: Darnell Handy To: Darnell Handy To: Orville Iverson ID Date Data Source [id number] 09/08/2019 10:29:00 AM EDT [place] ([facility]) Name Value Range Interpretation Code Description Data Teresa rce(s) Supporting Document(s) MAGNESIUM LEVEL 1.9 MG/DL Normal MAGNESIUM LEVEL YOKO ESPINO [facility]) ID Date Data Source [id number] 09/08/2019 10:29:00 AM EDT [place] ([facility]) Name Value Range Interpretation Code Description Data Teresa rce(s) Supporting Document(s) Reported Physicians See Note Reported Physic ans [place] ([facility]) Note: Reported Physicians:Ordering: Taye er [id number], Tu Lane: Darnell Handy To: Darnell Handy To: Orville Iverson ID Date Data Source [id number] 09/08/2019 10:29:00 AM EDT [place] ([facility]) Name Value Range Interpretation Code Description Data Teresa rce(s) Supporting Document(s) VITAMIN B12 LEVEL 1656 PG/ML Above high normal VITAMIN B12 LEVEL [facility]) Note: VITAMIN B12 NORMAL RANGE NORMAL 247 - 911 PG/ML INDETERMINATE 211 - 246 PG/ML DEFICIENT LESS THAN 211 PG/ML ID Date Data Source [id number] 09/08/2019 10:29:00 AM EDT [place] ([facility]) Name Value Range Interpretation Code Description Data Teresa rce(s) Supporting Document(s) Reported Physicians See Note Reported Physic ans [place] ([facility]) Note: Reported Physicians:Ordering: Anabellb er [id number], Tu AAttending: Darnell Handy To: Darnell Handy To: Orville Iverson ID Date Data Source [id number] 09/08/2019 10:29:00 AM EDT [place] ([facility]) Name Value Range Interpretation Code Description Data Teresa rce(s) Supporting Document(s) Hematocrit [Pure volume fraction] of Blood by Automated count 41.5 % Normal HEMATOCRIT [place] ([facility]) RBC FOLATE 607 NG/ML Normal RBC FOLATE [place] ([facility]) ID Date Data Source [id number] 08/21/2019 12:50:00 PM EDT [place] ([facility]) Name Value Range Interpretation Code Description Data Teresa rce(s) Supporting Document(s) Reported Physicians See Note Reported Physici ans [place] ([facility]) Note: Reported Physicians:Ordering: Nelly Kumar AAttending: Renee Christensen To: Renee Christensen To: Orville Iverson ID Date Data Source [id number] 08/21/2019 12:50:00 PM EDT [place] ([facility]) Name Value Range Interpretation Code Description Data Teresa rce(s) Supporting Document(s) APPEARANCE, URINE CLEAR Normal APPEARANCE, URINE [place] ([facility]) COLOR, URINE YELLOW Normal COLOR, URINE [place] ( [facility]) PH,URINE 7.0 UNITS Normal PH,URINE [place] ([facility]) SPECIFIC GRAVITY URINE AUTO 1.004 Normal SPECIFIC GRAVITY URINE AUTO [place] ([facility]) PROTEIN, URINE AUTO NEGATIVE mg/dL Normal PROTEIN, URI NE AUTO [place] ([facility]) GLUCOSE, URINE (UA) AUTO NEGATIVE mg/dL Normal GLUCOSE , URINE (UA) AUTO [place] ([facility]) KETONE, URINE AUTO NEGATIVE mg/dL Normal KETONE, URINE AUTO [place] ([facility]) UROBILINOGEN, URINE AUTO 0.2 mg/dL Normal UROBILINOGE N, URINE AUTO [place] ([facility]) BILIRUBIN, URINE AUTO NEGATIVE Normal BILIRUBIN, URI NE AUTO [place] ([facility]) NITRITE, URINE AUTO NEGATIVE Normal NITRITE, URINE A UTO [place] ([facility]) LEUKOCYTE ESTERASE, URINE AUTO NEGATIVE Normal LEUKO CYTE ESTERASE, URINE AUTO [place] ([facility]) BLOOD, URINE BLOOD NEGATIVE Normal BLOOD, URINE BLOO D [place] ([facility]) WBC, URINE AUTO 1 /HPF Normal WBC, URINE AUTO [place] ([facility]) RBC, URINE AUTO 0 /HPF Normal RBC, URINE AUTO [place] ([facility]) BACTERIA, URINE AUTO NEGATIVE Normal BACTERIA, URINE AUTO [place] ([facility]) SQUAMOUS EPITHELIAL CELL UR AU 1 /HPF Normal SQUAM OUS EPITHELIAL CELL UR AU [place] ([facility]) HYALINE CAST, URINE AUTO 0 /LPF Normal HYALINE FR[place]ICK T, URINE AUTO [place] ([facility]) ID Date Data Source [id number] 08/21/2019 12:50:00 PM EDT [place] ([facility]) Name Value Range Interpretation Code Description Data Teresa rce(s) Supporting Document(s) Reported Physicians See Note Reported Physici ans [place] ([facility]) Note: Reported Physicians:Ordering: Nelly Kumar AAttending: Tamica ChristensenynCopy To: More ChristensencelynCopy To: Orville Iverson ID Date Data Source [id number] 08/21/2019 12:50:00 PM EDT [place] ([facility]) Name Value Range Interpretation Code Description Data Teresa rce(s) Supporting Document(s) URINE CULTURE See Note Normal URINE CULTURE [place] ([facility]) Note: FULL REPORT IN LAB NOTES (eCW and Medent).NO GROWTH CLINICAL SIGNIFICANCE 1 ORGANISM ID Date Data Source [id number] 07/11/2019 10:00:00 AM EDT [place] ([facility]) Name Value Range Interpretation Code Description Data Teresa rce(s) Supporting Document(s) Reported Physicians See Note Reported Physici ans [place] ([facility]) Note: Reported Physicians:Ordering: Orville Felix MAttending: ORVILLE IVERSONReferring: ORVILLE IVERSONConsulting: AMPARO JOCELYNCopy To: Orville IversonCopnava To: Nelly Christensen ID Date Data Source [id number] 07/11/2019 10:00:00 AM EDT [place] ([facility]) Name Value Range Interpretation Code Description Data Teresa rce(s) Supporting Document(s) Bilirubin [Presence] in Peritoneal fluid NEG BILIRUBIN [place] ([facility]) Note: Responsible Observer: (NH) Blood [Presence] in Urine by Visual NEG BLOOD [place] ([facility]) Note: Responsible Observer: (NH) Clarity of Pleural fluid from Fetus clear CLARITY [place] ([facility]) Note: Responsible Observer: (NH) Color of Exudate from wound yellow COLOR [place] ([facility]) Note: Responsible Observer: (NH) Glucose [Mass/volume] in Urine collected for unspecified duration N ORM GLUCOSE [place] ([facility]) Note: Responsible Observer: (NH) KETONE NEG KETONE [place] ([facility]) Note: Responsible Observer: (NH) LEUK EST NEG LEUK EST [place] ([facility]) Note: Responsible Observer: (NH) MICROSCOPIC Not Indicate MICROSCOPIC [place] ([facility]) Note: Responsible Observer: (NH) Nitrite [Presence] in Urine by Test strip NEG NITRITE [place] ([facility]) Note: Responsible Observer: (NH) pH of Vaginal fluid by Test strip 7 pH [place] ([facility]) Note: Responsible Observer: (NH) Protein [Mass/volume] in Saliva (oral fluid) NEG PROTEIN [place] ([facility]) Note: Responsible Observer: (NH) SPEC GRAVITY 1.010 SPEC GRAVITY [place] ([facility]) Note: Responsible Observer: (NH) Urobilinogen [Presence] in Urine by Automated test strip NOR UROBILINOGEN [place] ([facility]) Note: Responsible Observer: (NH) SOURCE R SOURCE [place] ([facility]) Note: Responsible Observer: (NH) URINALYSIS See Note URINALYSIS [place] ([facility]) Note: URINALYSISResponsible Observer : (NH) ID Date Data Source [id number] 07/11/2019 10:00:00 AM EDT [place] ([facility]) Name Value Range Interpretation Code Description Data Teresa rce(s) Supporting Document(s) Reported Physicians See Note Reported Physici ans [place] ([facility]) Note: Reported Physicians:Ordering: Orville Felixding: Artur Iverson To: [facility] ID Date Data Source [id number] 07/11/2019 10:00:00 AM EDT [place] ([facility]) Name Value Range Interpretation Code Description Data Teresa rce(s) Supporting Document(s) Gram Negative Panel 4 See Note Susceptibl e. Indicates for microbiology susceptibilities only. Gram Negative Panel 4 [place] ([facility]) Note: SUSCEPTIBLE -Cefepime [Susceptibility] by Minimum inhibitory concentration (JACK) <8 Ciprofloxacin [Susceptibility] by Minimum inhibitory concentration (JACK) <1 Gentamicin [Susceptibility] by Minimum inhibitory concentration (JACK) <2 Imipenem [Susceptibility] by Minimum inhibitory concentration (JACK) <1 Nitrofurantoin [Susceptibility] by Minimum inhibitory concentration (JACK) <32 TRIMETHOPRIM/SULFAMETHOXAZOLE <2/38 Tetracycline [Susceptibility] by Minimum inhibitory concentration (JACK) <4 Tobramycin [Susceptibility] by Minimum inhibitory concentration (JACK) <4 levoFLOXacin [Susceptibility] by Minimum inhibitory concentration (JACK) <2 INTERMEDIATE --- Pipe racillin+Tazobactam [Susceptibility] by Minimum inhibitory concentrati 64 RESISTANT ---Amoxicillin+Clavulanate [Susceptibility] by Minimum inhibitory concentratio >16/8 Ampicillin [Susceptibility] by Minimum inhibitory concentration (JACK) >16 Ampicillin+Sulbactam [Susceptibility] by Minimum inhibitory concentration ( >16/8 Cefotaxime [Susceptibility] by Minimum inhibitory concentration (JACK) >32 Ertapenem [Susceptibility] by Minimum inhibitory concentration (JACK) >1 cefTRIAXone [Susceptibility] by Minimum inhibitory concentration (JACK) >32 ID Date Data Source [id number] 07/11/2019 10:00:00 AM [facility] Name Value Range Interpretation Code Description Data Teresa rce(s) Supporting Document(s) Bacteria identified in Urine by Culture See Note Bacteria Ur Cult [place] ([facility]) Note: ENTCLOENTEROBACTER [id number] 607ENTEROBACTER CLOACAE [place] count [#/volume] in Implant device by Culture Greater than 1 00,000 [place] count [facility]) Notes [TIMP] See Note NOTES [place] ([facility]) Note: @07/13/19 0755: Urine ID Charge ad ded. RFLXG = CHGURID. ID Date Data Source [id number] 07/11[facility]2019 [facility]00:[facility] Name Value Range Interpretation Code Description Data Teresa rce(s) Supporting Document(s) Reported Physicians See Note Reported Physici ans [place] ([facility]) Note: Reported Physicians:Ordering: Orville Felix MAttending: ORVILLE IVERSONReferring: ORVILLE IVERSONConsulting: Renee CHRISTENSEN To: Artur Ivesron To: Nelly Christensen ID Date Data Source [id number] 07/11/2019 10:00:00 AM [facility] ([facility]) Name Value Range Interpretation Code Description Data Teresa rce(s) Supporting Document(s) [facility] URINE CULTURE See Note [facility] URINE CULT [facility] ([facility]) Note: _CULTURE URINE_ Result: [place] [address] CLIA# [id number] SEE SCANNED REPORT Responsible Observer: (KAY) ID Date Data Source [id number] 07/13/2019 09:52:00 PM EDT [facility] Name Value Range Interpretation Code Description Data Teresa rce(s) Supporting Document(s) [facility] URINE CULTURE [facility] _CULTURE URINE_ Result: [place] [address] CLIA# [id number] SEE SCANNED REPORT ID Date Data Source [id number] 07/11/2019 03:54:00 PM EDT [facility] Name Value Range Interpretation Code Description Data Teresa rce(s) Supporting Document(s) URINALYSIS [facility] URINALYSIS SOURCE R [facility] COLOR yellow NORMAL: Yellow [facility] CLARITY clear NORMAL: Clear [facility] Specific gravity of Urine by Test strip 1.010 1.001 - 1.030 [facility] 7 5 - 9 [facility] Glucose [Mass/volume] in Urine by Test strip NORM NORMAL: Negat zora [facility] Bilirubin.total [Presence] in Urine by Test strip NEG NORMAL: Negative [facility] Ketones [Presence] in Urine by Test strip NEG NORMAL: Negative [facility] Protein [Mass/volume] in Urine by Test strip NEG NORMAL: Negat zora [facility] Nitrite [Presence] in Urine by Test strip NEG NORMAL: Negative [facility] BLOOD NEG NORMAL: Negative [facility] Leukocyte esterase [Presence] in Urine by Test strip NEG MIRIAM L: Negative [facility] Urobilinogen [Mass/volume] in Urine by Test strip NOR less malka n 1.0 mg/dL [facility] MICROSCOPIC Not Indicate [facility] ID Date Data Source [id number] 06/19/2019 12:43:00 PM EST [place] ([facility]) Name Value Range Interpretation Code Description Data Teresa rce(s) Supporting Document(s) Reported Physicians See Note [facility] Note: Reported Physicians:Ordering: МАРИЯ BOWERS [id number] MDAttending: Sujrit PRATT To: Surjit PRATT To: Orville Iverson ID Date Data Source [id number] 06/19/2019 12:43:00 PM EST [place] ([facility]) Name Value Range Interpretation Code Description Data Teresa rce(s) Supporting Document(s) FLOW CYTOMETRY FOR SEND OUT See Pathology Report Miriam l FLOW CYTOMETRY FOR SEND OUT [place] ([facility]) Note: Testing performed at reference lab . Report copy to follow on a separate form. 07/04/19 REF LAB#:[id number] ID Date Data Source [id number] 06/19/2019 12:37:00 PM EST [place] ([facility]) Name Value Range Interpretation Code Description Data Teresa rce(s) Supporting Document(s) Reported Physicians See Note Reported Physic ans [place] ([facility]) Note: Reported Physicians:Ordering: МАРИЯ BOWERS [phone], LENO MDAttending: Surjit PRATT To: Surjit PRATT To: Orville Iverson ID Date Data Source [id number] 06/19/2019 12:37:00 PM EST [place] ([facility]) Name Value Range Interpretation Code Description Data Teresa rce(s) Supporting Document(s) Ferritin [Interpretation] in Blood 82 NG/ML Normal F ERRITIN [place] ([facility]) ID Date Data Source [id number] 06/19/2019 12:37:00 PM EST [place] ([facility]) Name Value Range Interpretation Code Description Data Teresa rce(s) Supporting Document(s) Reported Physicians See Note Reported Physici ans [place] ([facility]) Note: Reported Physicians:Ordering: МАРИЯ BOWERS [id number], CAROL MDAttending: Surjit PRATT To: Surjit PRATT To: Orville Iverson ID Date Data Source [id number] 06/19/2019 12:37:00 PM EST [place] ([facility]) Name Value Range Interpretation Code Description Data Teresa rce(s) Supporting Document(s) IRON (FE) 99 UG/DL Normal IRON (FE) [place] ([facility]) TOTAL IRON BINDING CAPACITY 241 UG/DL Below low nor mal TOTAL IRON BINDING CAPACITY [place] ([facility]) PERCENT SATURATION 41.1 % Normal PERCENT SATURATIO N [place] ([facility]) ID Date Data Source [id number] 06/22/2019 01:17:00 PM [facility] Hematopathology ReportName: CARMEN TAVERAS KMRN: [id number] Number: [id number] Date: 06/19/2019 12:36Received Date: 06/20/2019 14:02Physician(s): NURY VALLES MD, YILIN MDCopy To:[facility]imen(s) ReceivedA: Blood, Flow Cytometry; received 2 green peripheral blood and 2 EDTAperipheral blood to MolecularClinical Rtusizo31-[id number] female with leukocytosis and lymphocytosis DiagnosisPeripheral blood for flow cytometry: Leukocytosis with absolutelymphocytosis (5.9 K/uL) consisting primarily of CD4-skewed T cells(CD4/CD8 = 8.9) without immunophenotypic aber rancies, favor reactive. Noevidence of a monoclonal B cell population. Slight absolute eosinophilia(0.6 K/uL).Wilmer Matute MD;Resident PathologistElectronically Signed By Arnold Wheat M.D., Ph.D. AttendingPathologist 06/22/2019 13:17:08The attending pathologist named above attests that he/she has personallyreviewed the relevant preparation(s) for the specimen(s) and rendered thefinal diagnosis. Microscopic DescriptionPERIPHERAL BLOOD: CBC performed at [facility] on 06/19/2019 White blood cell *13.3 K/uL Red blood cell 4.16 M/uL Hemoglobin 12.9 g/dL Hematocrit 39.5 % Mean cell volume 95 fL Mean cell hemoglobin 31 pg Mean cell Hgb conc 32.7 g/dL Red cell dist width 13.5 % Platelet count 311 K/uLDifferential count (automated):43.9 % Neutrophils 4.4 % Eosinophils 0.5 % Hzmwekvou41.5 % Lymphocytes 6.3 % Monocytes 0.4 % Immature granulocytes--------100.0 %PERIPHERAL BLOOD SMEAR: Leukocytosis with absolute lymphocytosis andslight absolute eosinophilia. Otherwise unremarkable peripheral bloodsmear. ProceduresFlow Cytometry Date Ordered:06/20/2019 Status: Signed Out06/21/2019 InterpretationLymphoid Panel: asterindira Terry [id number] 06/19/2019The following markers were assayed: CD45 (gate), CD2, CD3, CD4, CD5, CD7,CD8, CD10, CD11c, CD19, CD20, CD22, CD23, CD25, CD38, CD56, CD57, CD103,[place], Lambda, and FMC7.# events:[id number]: 94%Flow Cytometry Differential (CD45/SSC)Lymphocyte [place]: 36%CD45 dim [place]: 0%Monocyte [place]: 5%Granulocyte [place]: 56%Nucleated/Erythroid [place]: 0%The lymphocyte gate showsB-cells (CD19): 19%[place]/Lambda Ratio: 1.4T-cells (CD3): 70%NK-cells (CD3- /CD56+): 9%CD4/CD8 Ratio: 8.9Results: (expressed as % of lymphocyte gate)T-cell Markers: CD2 = 79, CD3 = 70, CD3/CD4 = 62, CD3/CD8 = 7, CD5 = 68,CD7 = 76, CD3/57 = 3B-cell markers: [place] = 11, Lambda = 7, CD19 = 19, CD20 = 20, CD19/10 = 1,CD19/CD5 = 1,CD38/CD20 = 11, CD22 = 20, CD19/CD23 = 11, FMC7 = 16Light chain as % of B-Cells: CD19/[place] = 54, CD19/Lambda = 38CD19/CD5/[place] = 3, CD19/CD5/Lambda = 2CD19/CD10/[place] = 4, CD19/CD10/Lambda = 4CD38 on CD19/5 positive cells: 83%NK cell Markers: CD56 = 9, CD57 = 7Other Markers: CD25 = 17, CD103 = 2, CD11c = 19, CD103/CD11c = 1, CD103/25= 1, CD103/22 = 0CD10 = 2, CD38 = 38Results: (expressed as % of CD45 dim gate)T-cell Markers: CD2 = 17, CD3 = 9, CD3/CD4 = 0, CD3/CD8 = 0, CD5 = 7, CD7= 15, CD3/57 = 0B-cell markers: [place] = 0, Lambda = 0, CD19 = 0, CD20 = 0, CD19/10 = 0,CD19/CD5 = 0,CD38/CD20 = 0, CD22 = 1, CD19/CD23 = 0, FMC7 = 0Light chain as % of B-Cells: CD19/[place] = 0, CD19/Lambda = 0CD19/CD5/[place] = 0, CD19/CD5/Lambda = 0CD19/CD10/[place] = 0, CD19/CD10/Lambda = 0NK cell Markers: CD56 = 1, CD57 = 1Other Markers: CD10 = 3, CD38 = 64, CD25 = 1, CD103 = 1, CD11c = 8,CD103/CD11c = 0, CD103/25 = 0,CD103/22 = 0Results-CommentsLymphocytes (moderate CD45, low side-scatter) consist pr edominantly of Tcells with normal expression of swanson-T cell antigens and an elevatedCD4/CD8 ratio, normal proportions of NK and cytotoxic T cells, andpolyclonal B cells.Procedure Electronically Signed By:Arnold Wheat M.D., Ph.D.06/22/2019 This report may include one or more immunohistochemical stain/fluorochromeconjugated monoclonal antibody results that use analyte specific reagents.All positive and negative controls have been reviewed by the attendingpathologist and are satisfactory. The tests were developed and theirperformance characteristics determined by [facility] Pathology department.Th ey have not been cleared or approved by the US Food and DrugAdministration. The FDA has determined that such clearance or approval isnot necessary. Name Value Range Interpretation Code Description Data Teresa rce(s) Supporting Document(s) ID Date Data Source [id number] 06/20/2019 03:22:14 PM EST [facility] Name Value Range Interpretation Code Description Data Teresa rce(s) Supporting Document(s) Flow cytometry study [facility] ID Date Data Source [id number] 06/19/2019 10:15:00 AM EST [place] ([facility]) Name Value Range Interpretation Code Description Data Teresa rce(s) Supporting Document(s) Reported Physicians See Note Reported Physici ans [place] ([facility]) Note: Reported Physicians:Ordering: МАРИЯ BOWERS [id number], CAROL Mckinnonending: Surjit PRATT To: Surjit PRATT To: Orville Iverson ID Date Data Source [id number] 06/19/2019 10:15:00 AM EST [place] ([facility]) Name Value Range Interpretation Code Description Data Teresa rce(s) Supporting Document(s) NEUTROPHILS % 43.9 % Normal NEUTROPHILS % [place] ([facility]) LYMPH % 44.5 % Above high normal LYMPH % [place] ([facility]) MONO % 6.3 % Above high normal MONO % [place] ([facility]) EOS % 4.4 % Above high normal EOS % [place] ([facility]) BASO % 0.5 % Normal BASO % [place] ([facility]) IMMATURE GRANULOCYTE % 0.4 % Normal IMMATURE GRAN ULOCYTE % [place] ([facility]) NEUTROPHILS # 5.9 3/uL Normal NEUTROPHILS # [place] ([facility]) LYMPH # 5.9 3/uL Above high normal LYMPH # [place] ([facility]) MONO # 0.8 3/uL Normal MONO # [place] ([facility]) EOS # 0.6 3/uL Above high normal EOS # [place] ([facility]) BASO # 0.1 3/uL Normal BASO # [place] ([facility]) ID Date Data Source [id number] 06/19/2019 10:15:00 AM EST [place] ([facility]) Name Value Range Interpretation Code Description Data Teresa rce(s) Supporting Document(s) Reported Physicians See Note Reported Physici saima [place] ([facility]) Note: Reported Physicians:Ordering: МАРИЯ BOWERS [id number]: Surjit PRATT To: Surjit PRATT To: Orville Iverson ID Date Data Source [id number] 06/19/2019 10:15:00 AM [facility] ([facility]) Name Value Range Interpretation Code Description Data Teresa rce(s) Supporting Document(s) GLUCOSE, FASTING 84 MG/DL Normal [facility] BLOOD UREA NITROGEN 8 MG/DL Normal BLOOD UREA NITRO GEN [place] ([facility]) CREATININE FOR GFR 0.85 MG/DL Normal CREATININE FOR GF R [place] ([facility]) GLOMERULAR FILTRATION RATE > 60.0 Normal GLOMERULA R FILTRATION RATE [place] ([facility]) Note: Units are mL/min/1.73 m2 Chroni c Kidney Disease Staging per NKF: Stage I & II GFR >=60 Normal to Mildly Decreased Stage III GFR 30- 59 Moderately Decreased Stage IV GFR 15-29 Severely Decreased Stage V GFR <15 Very Little GFR Left ESRD GFR <15 on CHIP MIXER SODIUM LEVEL 138 MEQ/L Normal SODIUM LEVEL [facility]) POTASSIUM SERUM 3.3 MEQ/L Below low normal POTASSIUM SERU M [place] ([facility]) CHLORIDE LEVEL 103 MEQ/L Normal CHLORIDE LEVEL [facility]) CARBON DIOXIDE LEVEL 34 MEQ/L Above high normal CARBON D IOXIDE LEVEL [facility]) Anion gap in Body fluid 1 MEQ/L Below low normal ANION GAP [facility]) CALCIUM LEVEL 9.3 MG/DL Normal CALCIUM LEVEL [facility]) AST/SGOT 10 U/L Normal AST/SGOT [place] ([facility]) ALT/SGPT 21 U/L Normal ALT/SGPT [place] ([facility]) Alkaline phosphatase [Enzymatic activity/volume] in Se rum, Plasma or Blood 79 U/L Normal ALKALINE PHOSPHATASE [place] ([facility]) BILIRUBIN,TOTAL 0.4 MG/DL Normal BILIRUBIN,TOTAL GREE [facility] ([facility]) TOTAL PROTEIN 7.2 GM/DL Normal TOTAL PROTEIN [place] ([facility]) Albumin [Mass/volume] in Blood by Bromocresol purple ( BCP) dye binding method 3.1 GM/DL Below low normal ALBUMIN [place] ([facility]) ALBUMIN/GLOBULIN RATIO 0.76 Below low normal ALBUMIN /GLOBULIN RATIO [place] ([facility]) ID Date Data Source [id number] 06/19/2019 10:15:00 AM EST [place] ([facility]) Name Value Range Interpretation Code Description Data Teresa rce(s) Supporting Document(s) Reported Physicians See Note Reported Physici ans [place] ([facility]) Note: Reported Physicians:Ordering: МАРИЯ BOWERS [id number] MDAttending: Surjit PRATT To: Surjit PRATT To: Orville Iverson ID Date Data Source [id number] 06/19/2019 10:15:00 AM EST [place] ([facility]) Name Value Range Interpretation Code Description Data Teresa rce(s) Supporting Document(s) APPEARANCE, URINE CLEAR Normal APPEARANCE, URINE [place] ([facility]) COLOR, URINE STRAW Normal COLOR, URINE [place] ([facility]) PH,URINE 7.0 UNITS Normal PH,URINE [place] ([facility]) SPECIFIC GRAVITY URINE AUTO 1.004 Normal SPECIFIC GRAVITY URINE AUTO [place] ([facility]) PROTEIN, URINE AUTO NEGATIVE mg/dL Normal PROTEIN, URI NE AUTO [place] ([facility]) GLUCOSE, URINE (UA) AUTO NEGATIVE mg/dL Normal GLUCOSE , URINE (UA) AUTO [place] ([facility]) KETONE, URINE AUTO NEGATIVE mg/dL Normal KETONE, URINE AUTO [place] ([facility]) UROBILINOGEN, URINE AUTO 0.2 mg/dL Normal UROBILINOGE N, URINE AUTO [place] ([facility]) BILIRUBIN, URINE AUTO NEGATIVE Normal BILIRUBIN, URI NE AUTO [place] ([facility]) NITRITE, URINE AUTO NEGATIVE Normal NITRITE, URINE A UTO [place] ([facility]) LEUKOCYTE ESTERASE, URINE AUTO TRACE Above high normal LEUKOCYTE ESTERASE, URINE AUTO [place] ([facility]) BLOOD, URINE BLOOD NEGATIVE Normal BLOOD, URINE BLOO D [place] ([facility]) WBC, URINE AUTO 13 /HPF Above high normal WBC, URINE AU TO [place] ([facility]) RBC, URINE AUTO 1 /HPF Normal RBC, URINE AUTO [place] ([facility]) BACTERIA, URINE AUTO 1+ Above high normal BACTERIA , URINE AUTO [place] ([facility]) SQUAMOUS EPITHELIAL CELL UR AU 0 /HPF Normal SQUAM OUS EPITHELIAL CELL UR AU [place] ([facility]) MUCUS, URINE SMALL Normal MUCUS, URINE [place] ([facility]) HYALINE CAST, URINE AUTO 0 /LPF Normal HYALINE [place] T, URINE AUTO [place] ([facility]) ID Date Data Source [id number] 06/19/2019 10:15:00 AM EST [place] ([facility]) Name Value Range Interpretation Code Description Data Teresa rce(s) Supporting Document(s) Reported Physicians See Note Reported Physici ans [place] ([facility]) Note: Reported Physicians:Ordering: МАРИЯ BOWERS [id number]: Surjit PRATT To: Surjit PRATT To: Orville Iverson ID Date Data Source [id number] 06/19/2019 10:15:00 AM [facility] ([facility]) Name Value Range Interpretation Code Description Data Teresa rce(s) Supporting Document(s) WHITE BLOOD COUNT 13.3 3/uL Above high normal WHITE BLOOD COUNT [place] ([facility]) Note: A Pathologist review of this diffe rential can help in the evaluation of a differential diagnosis. Please order a Pathologist Review (PATHREVCOMP) if deemed necessary. Results are subject to change if a Pathologist Review is performed. RED BLOOD COUNT 4.16 6/uL Normal RED BLOOD COUNT GREE [facility] ([facility]) Hemoglobin [Mass/volume] in Mixed venous blood by Oximetry 12.9 g/d l Normal HEMOGLOBIN [place] ([facility]) Hematocrit [Pure volume fraction] of Blood by Automated count 39.5 % Normal HEMATOCRIT [facility]) MEAN CORPUSCULAR VOLUME 95.0 fl Normal MEAN CORPUSC ULAR VOLUME [place] ([facility]) MEAN CORPUSCULAR HEMOGLOBIN 31.0 pg Normal MEAN COR PUSCULAR HEMOGLOBIN [facility]) MEAN CORPUSCULAR HGB CONC 32.7 g/dl Normal MEAN CORPU SCULAR HGB CONC [place] ([facility]) RED CELL DISTRIBUTION WIDTH 13.5 % Normal RED CELL DISTRIBUTION WIDTH [place] ([facility]) PLATELET COUNT, AUTOMATED 311 3/uL Normal PLATELET C OUNT, AUTOMATED [place] ([facility]) NUCLEATED RED BLOOD CELL % 0.0 % Normal NUCLEATED RED BLOOD CELL % [place] ([facility]) ID Date Data Source [id number] 06/19/2019 10:15:00 AM [facility] ([facility]) Name Value Range Interpretation Code Description Data Teresa rce(s) Supporting Document(s) Reported Physicians See Note Reported Physici ans [facility]) Note: Reported Physicians:Ordering: CAROL WEATHERS [id number]: Surjit PRATT To: Surjit PRATT To: Orville Iverson ID Date Data Source [id number] 06/19/2019 10:15:00 AM [facility] ([facility]) Name Value Range Interpretation Code Description Data Teresa rce(s) Supporting Document(s) URINE CULTURE See Note Normal URINE CULTURE [facility]) Note: FULL REPORT IN LAB NOTES (eCW and Medent).ORGANISM 1: ESCHERICHIA COLICOLONY COUNT >100,000ORGANISM 1: ESCHERICHIA COLIESCHERICHIA COLI: REACTIONTRIMETH OPRIM/SULFAMETHOXAZOLE IV 160mg TMP & 800mg SMXq6h <=20 STRIMETHOPRIM/SULFAMETHOXAZOLE PO Bactrim DS Bid <=20 SAMPICILLIN IV 500mg q6h 8 SAMPICILLIN PO 500mg q6h fasting 8 SGENTAMICIN IV 80mg q8h <=1 SNITROFURANTOIN PO 100mg BID <=16 SCEFAZOLIN IV 1gm q8h <=4 SLEVOFLOXACIN IV 500mg qd >=8 RLEVOFLOXACIN PO 250mg qd >=8 RLEVOFLOXACIN PO 500mg qd >=8 RTOBRAMYCIN IV 80mg q8h <=1 SCEFTRIAXONE IV 1gm q24h <=1 SCEFTAZIDIME IV 1gm q8h <=1 SAMPICILLIN/SULBACTAM IV 1.5g q6h 4 SPIPERACILLIN/TAZOBACTAM IV 2.25 gm q6h <=4 SAZTREONAM IV 1gm q8h <=1 SERTAPENEM IV 1gm qd <=0.5 SMEROPENEM IV 1 gm q8h <=0.25 SMEROPENEM IV 500 mg q8h <=0.25 STIGECYCLINE IV 50mg q12h <=0.5 SCEFEPIME IV 1 gm q12h <=1 SCEFEPIME IV 2 gm q12h <=1 SEXTD BRD SPCTRM BETA LACTAMASE IV NEGATIVE FOR ESBL ID Date Data Source [id number] 06/06/2019 10:47:00 AM [facility] ([facility]) Name Value Range Interpretation Code Description Data Teresa rce(s) Supporting Document(s) Reported Physicians See Note Reported Graciela landaverde [place] ([facility]) Note: Reported Physicians:Ordering: Orville Felixtending: Orville IversonCopnava To: Orville Iverson ID Date Data Source [id number] 06/06/2019 10:47:00 AM [facility] ([facility]) Name Value Range Interpretation Code Description Data Teresa rce(s) Supporting Document(s) Hemoglobin A1c in Blood 5.9 % Normal HEMOGLOBIN A [address] [place] [address] ([facility]) Note: REFERENCE RANGES: 4.5-5.6% NOR MAL 5.7-6.4% SUGGESTS IMPAIRED GLUCOSE METABOLISM >= 6.5% ABNORMAL Glucose mean value [Moles/volume] in Blood Estimated f rom glycated hemoglobin 123 MG/DL Above high normal ESTIMATED AVERAGE GLUCOSE [place] ([facility]) ID Date Data Source [id number] 06/02/2019 10:17:00 AM [facility] [id number] Name Value Range Interpretation Code Description Data Teresa rce(s) Supporting Document(s) Bacteria identified in Urine by Culture [facility] ID Date Data Source [id number] 05/30/2019 04:45:00 PM EST [place] ([facility]) Name Value Range Interpretation Code Description Data Teresa rce(s) Supporting Document(s) Reported Physicians See Note Reported Physici ans [place] ([facility]) Note: Reported Physicians:Ordering: iCrilo onOrvilletending: Artur Iverson To: [facility] ID Date Data Source [id number] 05/30/2019 04:45:00 PM EST [place] ([facility]) Name Value Range Interpretation Code Description Data Teresa rce(s) Supporting Document(s) Bacteria identified in Urine by Culture See Note Bacteria Ur Cult [place] ([facility]) Note: NGNo growth.L1NG Notes [TIMP] See Note NOTES [place] ([facility]) Note: [id number] ID Date Data Source [id number] 05/30/2019 04:45:00 PM [facility] ([facility]) Name Value Range Interpretation Code Description Data Teresa rce(s) Supporting Document(s) Reported Physicians See Note Reported Physici [facility] ([facility]) Note: Reported Physicians:Ordering: Cirilo onOrville MAttending: ORVILLE IVERSONReferring: ORVILLE IVERSONConsulting: Renee CHRISTENSEN To: Artur Iverson To: Nelly Christensen ID Date Data Source [id number] 05/30/2019 04:45:00 PM [facility] ([facility]) Name Value Range Interpretation Code Description Data Teresa rce(s) Supporting Document(s) [facility] URINE CULTURE See Note [facility] URINE CULT [facility] ([facility]) Note: _CULTURE URINE_ Result: [place] [address] CLIA# [id number] SEE SCANNED REPORT Responsible Observer: (MD) ID Date Data Source [id number] 06/03/2019 02:00:00 PM [facility] Name Value Range Interpretation Code Description Data Teresa rce(s) Supporting Document(s) [facility] URINE CULTURE [facility] _CULTURE URINE_ Result: [place] [address] CLIA# [id number] SEE SCANNED REPORT ID Date Data Source [id number] 05/20/2019 05:58:00 AM [facility] [place] ([facility]) Name Value Range Interpretation Code Description Data Teresa rce(s) Supporting Document(s) Reported Physicians See Note Reported Clarkei saima [place] ([facility]) Note: Reported Physicians:Ordering: GEE MORAN [id number]: Arely BROCKitting: Jaren LEE To: Shayan BROCK To: Jaren LEE To: Orville Iverson ID Date Data Source [id number] 05/20/2019 05:58:00 AM EST [place] ([facility]) Name Value Range Interpretation Code Description Data Teresa rce(s) Supporting Document(s) WHITE BLOOD COUNT 15.6 3/uL Above high normal WHITE BLOOD COUNT [facility]) RED BLOOD COUNT 4.40 6/uL Normal RED BLOOD COUNT [facility]) Hemoglobin [Mass/volume] in Mixed venous blood by Oximetry 13.2 g/d l Normal HEMOGLOBIN [facility]) Hematocrit [Pure volume fraction] of Blood by Automated count 40.8 % Normal HEMATOCRIT [facility]) MEAN CORPUSCULAR VOLUME 92.7 fl Normal MEAN CORPUSC ULAR VOLUME [place] ([facility]) MEAN CORPUSCULAR HEMOGLOBIN 30.0 pg Normal MEAN COR PUSCULAR HEMOGLOBIN [facility]) MEAN CORPUSCULAR HGB CONC 32.4 g/dl Normal MEAN CORPU SCULAR HGB CONC [place] ([facility]) RED CELL DISTRIBUTION WIDTH 14.0 % Normal RED CELL DISTRIBUTION WIDTH [facility]) PLATELET COUNT, AUTOMATED 255 3/uL Normal PLATELET C OUNT, AUTOMATED [place] ([facility]) NUCLEATED RED BLOOD CELL % 0.0 % Normal NUCLEATED RED BLOOD CELL % [place] ([facility]) ID Date Data Source [id number] 05/20/2019 05:58:00 AM [facility] ([facility]) Name Value Range Interpretation Code Description Data Teresa rce(s) Supporting Document(s) Reported Physicians See Note Reported Physici ans [place] ([facility]) Note: Reported Physicians:Ordering: GEE MORAN [id number], ARIANNA MDAttending: RICK BROCKAdmitting: Jaren LEE To: Shayan BROCK To: ARIANNA LEECopnava To: Orville Iverson ID Date Data Source [id number] 05/20/2019 05:58:00 AM [facility] ([facility]) Name Value Range Interpretation Code Description Data Teresa rce(s) Supporting Document(s) CPK CREATINE PHOSPHOKINASE 34 U/L Normal [facility]K [facility] CK-MB VALUE MASS < 1.0 NG/ML Normal CK-MB VALUE MASS G [facility] ([facility]) MB/CK RELATIVE INDEX 2.94 Normal MB/CK RELATIVE INDEX [facility]) Note: DIAGNOSIS CRITERIA MMB ng/ml Relative Index (RI) NON-AMI < or = 5 N/A PAGAN ZONE > 5 < or = 4 AMI > 5 > 4 TROPONIN I < 0.02 NG/ML Normal TROPONIN I [place] ([facility]) Note: Troponin I Reference Interval for Siemens ADOR LOCI: 99th Percentile= 0.00-0.045 ng/ml Risk Stratification: <= 0.10 ng/ml Decreased Risk for Adverse Clinical Events. 0.10-1.50 ng/ml Increased Risk for Adverse Clinical Events. Evaluation of additional criterion and/or repeat testing in 2-6 hours is suggested to rule out myocardial damage. >= 1.50 ng/ml Indicative of Myocardial Injury. ID Date Data Source [id number] 05/20/2019 05:58:00 AM EST [place] ([facility]) Name Value Range Interpretation Code Description Data Teresa rce(s) Supporting Document(s) Reported Physicians See Note Reported Physici ans [place] ([facility]) Note: Reported Physicians:Ordering: GEE MORAN [id number], ARIANNA MDAttending: RICK BROCKAdmitting: ARIANNA LEECopnava To: JUSTIN BROCKSHCopy To: DUKE LEEITACopnava To: Orville Iverson ID Date Data Source [id number] 05/20/2019 05:58:00 AM EST [place] ([facility]) Name Value Range Interpretation Code Description Data Teresa rce(s) Supporting Document(s) GLUCOSE, FASTING 117 MG/DL Above high normal GLUCOSE, FAS TING [place] ([facility]) BLOOD UREA NITROGEN 12 MG/DL Normal BLOOD UREA NITRO GEN [place] ([facility]) CREATININE FOR GFR 0.77 MG/DL Normal CREATININE FOR GF R [place] ([facility]) GLOMERULAR FILTRATION RATE > 60.0 Normal GLOMERULA R FILTRATION RATE [place] ([facility]) Note: Units are mL/min/1.73 m2 Chroni c Kidney Disease Staging per NKF: Stage I & II GFR >=60 Normal to Mildly Decreased Stage III GFR 30- 59 Moderately Decreased Stage IV GFR 15-29 Severely Decreased Stage V GFR <15 Very Little GFR Left ESRD GFR <15 on CHIP MIXER SODIUM LEVEL 141 MEQ/L Normal SODIUM LEVEL [facility]) POTASSIUM SERUM 3.7 MEQ/L Normal POTASSIUM SERUM [facility] ([facility]) CHLORIDE LEVEL 110 MEQ/L Above high normal CHLORIDE LEVEL [place] ([facility]) CARBON DIOXIDE LEVEL 26 MEQ/L Normal CARBON DIOXIDE LEVEL [place] ([facility]) Anion gap in Body fluid 5 MEQ/L Below low normal ANION GAP [facility]) CALCIUM LEVEL 8.4 MG/DL Below low normal CALCIUM LEVEL GR [facility] ([facility]) ID Date Data Source [id number] 05/19/2019 11:13:00 PM [facility] ([facility]) Name Value Range Interpretation Code Description Data Teresa rce(s) Supporting Document(s) Reported Physicians See Note Reported Physici ans [place] ([facility]) Note: Reported Physicians:Ordering: SIN Sandra [id number] MDAttending: RICK BROCKAdmitting: Jaren LEE To: RICK BROCKCopnava To: ARIANNA LEECopy To: Orville Iverson ID Date Data Source [id number] 05/19/2019 11:13:00 PM [facility]) Name Value Range Interpretation Code Description Data Teresa rce(s) Supporting Document(s) CPK CREATINE PHOSPHOKINASE 40 U/L Normal CPK CREAT INE PHOSPHOKINASE [facility]) CK-MB VALUE MASS < 1.0 NG/ML Normal [facility] MB/CK RELATIVE INDEX 2.50 Normal MB/CK RELATIVE INDEX [facility]) Note: DIAGNOSIS CRITERIA MMB ng/ml Relative Index (RI) NON-AMI < or = 5 N/A PAGAN ZONE > 5 < or = 4 AMI > 5 > 4 TROPONIN I < 0.02 NG/ML Normal TROPONIN I [place] ([facility]) Note: Troponin I Reference Interval for Siemens [place] LOCI: 99th Percentile= 0.00-0.045 ng/ml Risk Stratification: <= 0.10 ng/ml Decreased Risk for Adverse Clinical Events. 0.10-1.50 ng/ml Increased Risk for Adverse Clinical Events. Evaluation of additional criterion and/or repeat testing in 2-6 hours is suggested to rule out myocardial damage. >= 1.50 ng/ml Indicative of Myocardial Injury. ID Date Data Source [id number] 05/19/2019 07:53:00 PM EST [place] ([facility]) Name Value Range Interpretation Code Description Data Teresa rce(s) Supporting Document(s) Reported Physicians See Note Reported [facility] ans [place] ([facility]) Note: Reported Physicians:Ordering: SIN Sandra [id number], VIJESH MDAttending: VINOD, TRACEYJESHAdmitting: LWANGA, ANITACopy To: TRACEY BROCKJESHCopy To: SUSANA, ANITACopy To: Orville Iverson ID Date Data Source [id number] 05/19/2019 07:53:00 PM EST [place] ([facility]) Name Value Range Interpretation Code Description Data Teresa rce(s) Supporting Document(s) BEDSIDE GLUCOSE 174 MG/DL Above high normal BEDSIDE GLUCO SE [place] ([facility]) ID Date Data Source [id number] 05/19/2019 06:07:00 PM EST [place] ([facility]) Name Value Range Interpretation Code Description Data Teresa rce(s) Supporting Document(s) Reported Physicians See Note Reported [facility] ([facility]) Note: Reported Physicians:Ordering: SIN Sandra [id number], VIJESH MDAttending: BROCK, VIJESHAdmitting: LWANGA, ANITACopy To: BROCK, VIJESHCopy To: JOSEANGA, ANITACopy To: Orville Iverson ID Date Data Source [id number] 05/19/2019 06:07:00 PM EST [place] ([facility]) Name Value Range Interpretation Code Description Data Teresa rce(s) Supporting Document(s) CPK CREATINE PHOSPHOKINASE 125 U/L Normal CPK CREAT INE PHOSPHOKINASE [place] ([facility]) CK-MB VALUE MASS < 1.0 NG/ML Normal CK-MB VALUE MASS G [facility] ([facility]) MB/CK RELATIVE INDEX 0.80 Normal MB/CK RELATIVE INDEX [facility]) Note: DIAGNOSIS CRITERIA MMB ng/ml Relative Index (RI) NON-AMI < or = 5 N/A PAGAN ZONE > 5 < or = 4 AMI > 5 > 4 TROPONIN I < 0.02 NG/ML Normal TROPONIN I [facility]) Note: Troponin I Reference Interval for [employer] LOCI: 99th Percentile= 0.00-0.045 ng/ml Risk Stratification: <= 0.10 ng/ml Decreased Risk for Adverse Clinical Events. 0.10-1.50 ng/ml Increased Risk for Adverse Clinical Events. Evaluation of additional criterion and/or repeat testing in 2-6 hours is suggested to rule out myocardial damage. >= 1.50 ng/ml Indicative of Myocardial Injury. ID Date Data Source [id number] 05/19/2019 04:28:00 PM EST [place] ([facility]) Name Value Range Interpretation Code Description Data Teresa rce(s) Supporting Document(s) Reported Physicians See Note Reported Physici ans [place] ([facility]) Note: Reported Physicians:Ordering: SIN Sandra [phone], RICK MDAttending: RICK BROCKAdmitting: LWANGA, ANITACopy To: RICK BROCKCopy To: JESUS ANITACopy To: Orville Iverson ID Date Data Source [id number] 05/19/2019 04:28:00 PM EST [place] ([facility]) Name Value Range Interpretation Code Description Data Teresa rce(s) Supporting Document(s) BEDSIDE GLUCOSE 124 MG/DL Above high normal BEDSIDE GLUCO SE [place] ([facility]) ID Date Data Source [id number] 05/19/2019 01:54:00 PM EST [place] ([facility]) Name Value Range Interpretation Code Description Data Teresa rce(s) Supporting Document(s) Reported Physicians See Note Reported Physici ans [place] ([facility]) Note: Reported Physicians:Ordering: RICK LUND [id number]: RICK BROCKAdmitting: LWANGA ANITACopy To: RICK BROCKCopy To: SUSANA, ANITACopy To: Zayra Orville ID Date Data Source [id number] 05/19/2019 01:54:00 PM EST [place] ([facility]) Name Value Range Interpretation Code Description Data Teresa rce(s) Supporting Document(s) URINE CULTURE See Note Normal URINE CULTURE [place] ([facility]) Note: FULL REPORT IN LAB NOTES (eCW and Medent).NO GROWTH Notes [TIMP] See Note NOTES [place] ([facility]) Note: Urine Culture Indication Severe Se psis Comments: Abnormal UA with a fever; not severe sepsis ID Date Data Source [id number] 05/19/2019 11:35:00 AM [facility] ([facility]) Name Value Range Interpretation Code Description Data Teresa rce(s) Supporting Document(s) Reported Physicians See Note Reported Physici ans [place] ([facility]) Note: Reported Physicians:Ordering: VOGT Boaz [id number], TRACEYJESH MDAttending: RICK BROCKAdmitting: LWANGA, ANITACopy To: JUSTIN BROCKSHCopy To: SUSANA, ANITACopy To: Zayra Orville ID Date Data Source [id number] 05/19/2019 11:35:00 AM EST [place] ([facility]) Name Value Range Interpretation Code Description Data Teresa rce(s) Supporting Document(s) BEDSIDE GLUCOSE 127 MG/DL Above high normal BEDSIDE GLUCO SE [place] ([facility]) ID Date Data Source [id number] 05/19/2019 05:09:00 AM EST [place] ([facility]) Name Value Range Interpretation Code Description Data Teresa rce(s) Supporting Document(s) Reported Physicians See Note Reported Physici ans [place] ([facility]) Note: Reported Physicians:Ordering: LWDUKE MORAN [id number], ARIANNA MDAttending: LWANGA, ANITAAdmitting: LWANGA, ANITACopy To: JESUS, ANITACopy To: Orville Iverson ID Date Data Source [id number] 05/19/2019 05:09:00 AM [facility] ([facility]) Name Value Range Interpretation Code Description Data Teresa rce(s) Supporting Document(s) GLUCOSE, FASTING 118 MG/DL Above high normal GLUCOSE, FAS TING [place] ([facility]) BLOOD UREA NITROGEN 9 MG/DL Normal BLOOD UREA NITRO GEN [place] ([facility]) CREATININE FOR GFR 0.72 MG/DL Normal CREATININE FOR GF R [place] ([facility]) GLOMERULAR FILTRATION RATE > 60.0 Normal GLOMERULA R FILTRATION RATE [place] ([facility]) Note: Units are mL/min/1.73 m2 Chroni c Kidney Disease Staging per NKF: Stage I & II GFR >=60 Normal to Mildly Decreased Stage III GFR 30- 59 Moderately Decreased Stage IV GFR 15-29 Severely Decreased Stage V GFR <15 Very Little GFR Left ESRD GFR <15 on CHIP MIXER SODIUM LEVEL 140 MEQ/L Normal SODIUM LEVEL [facility]) POTASSIUM SERUM 3.8 MEQ/L Normal POTASSIUM SERUM [facility]) CHLORIDE LEVEL 105 MEQ/L Normal CHLORIDE LEVEL [facility] ([facility]) CARBON DIOXIDE LEVEL 30 MEQ/L Normal CARBON DIOXIDE LEVEL [place] ([facility]) Anion gap in Body fluid 5 MEQ/L Below low normal ANION GAP [facility]) CALCIUM LEVEL 8.3 MG/DL Below low normal [facility]) ID Date Data Source [id number] 05/19/2019 05:09:00 AM [facility] ([facility]) Name Value Range Interpretation Code Description Data Teresa rce(s) Supporting Document(s) Reported Physicians See Note Reported Physici ans [place] ([facility]) Note: Reported Physicians:Ordering: GEE MORAN [id number], ARIANNA MDAttending: ARIANNA LEEAdmitting: JOSEANGA ANITACopy To: JESUS, ANITACopy To: Orville Iverson ID Date Data Source [id number] 05/19/2019 05:09:00 AM EST [employer] ([facility]) Name Value Range Interpretation Code Description Data Teresa rce(s) Supporting Document(s) WHITE BLOOD COUNT 16.5 3/uL Above high normal WHITE BLOOD COUNT [facility]) RED BLOOD COUNT 4.24 6/uL Normal RED BLOOD COUNT YOK[facility] VALDE[facility]) Hemoglobin [Mass/volume] in Mixed venous blood by Oximetry 13.1 g/d l Normal HEMOGLOBIN [place] ([facility]) Hematocrit [Pure volume fraction] of Blood by Automated count 39.2 % Normal HEMATOCRIT [facility]) MEAN CORPUSCULAR VOLUME 92.5 fl Normal MEAN CORPUSC ULAR VOLUME [place] ([facility]) MEAN CORPUSCULAR HEMOGLOBIN 30.9 pg Normal MEAN COR PUSCULAR HEMOGLOBIN [facility]) MEAN CORPUSCULAR HGB CONC 33.4 g/dl Normal MEAN CORPU SCULAR HGB CONC [place] ([facility]) RED CELL DISTRIBUTION WIDTH 13.9 % Normal RED CELL DISTRIBUTION WIDTH [facility]) PLATELET COUNT, AUTOMATED 279 3/uL Normal PLATELET C OUNT, AUTOMATED [place] ([facility]) NUCLEATED RED BLOOD CELL % 0.0 % Normal NUCLEATED RED BLOOD CELL % [place] ([facility]) ID Date Data Source [id number] 05/19/2019 05:09:00 AM [employer] ([facility]) Name Value Range Interpretation Code Description Data Teresa rce(s) Supporting Document(s) Reported Physicians See Note Reported Physici ans [place] ([facility]) Note: Reported Physicians:Ordering: GEE MORAN [id number], ARIANNA MDAttending: ARIANNA LEEAdmitting: ARIANNA LEECopnava To: ARIANNA LEECopy To: Orville Iverson ID Date Data Source [id number] 05/19/2019 05:09:00 AM EST [employer] ([facility]) Name Value Range Interpretation Code Description Data Teresa rce(s) Supporting Document(s) PLATELET ESTIMATE NORMAL Normal PLATELET ESTIMATE [facility]) ID Date Data Source [id number] 05/19/2019 05:09:00 AM EST [facility] ([facility]) Name Value Range Interpretation Code Description Data Teresa rce(s) Supporting Document(s) Reported Physicians See Note Reported Physici ans [place] ([facility]) Note: Reported Physicians:Ordering: GEE MORAN [id number], ARIANNA MDAttending: LWANGA, ANITAAdmitting: LWANGA, ANITACopy To: JOSEANGA, ANITACopy To: Orville Iverson ID Date Data Source [id number] 05/19/2019 05:09:00 AM EST [place] ([facility]) Name Value Range Interpretation Code Description Data Teresa rce(s) Supporting Document(s) Neutrophils [#] in Body fluid by Manual count 64 % N ormal NEUTROPHILS [place] ([facility]) Lymphocytes [#] in Body fluid by Manual count 27 % N ormal LYMPHOCYTES [place] ([facility]) Monocytes [#/volume] in Cord blood 4 % Normal M ONOCYTES [place] ([facility]) Eosinophils [#] in Body fluid by Manual count 1 % N ormal EOSINOPHILS [place] ([facility]) ATYPICAL LYMPH 4 % Normal ATYPICAL LYMPH [facility] ([facility]) RBC MORPHOLOGY NORMAL Normal RBC MORPHOLOGY [facility] ([facility]) ID Date Data Source [id number] 05/19/2019 01:32:00 AM EST [facility] ([facility]) Name Value Range Interpretation Code Description Data Teresa rce(s) Supporting Document(s) Reported Physicians See Note Reported Physici ans [place] ([facility]) Note: Reported Physicians:Ordering: GEE MORAN [phone] ARIANNA MDAttending: LWANGA, ANITAAdmitting: LWANGA, ANITACopy To: JOSEANGA, ANITACopy To: Orville Iverson ID Date Data Source [id number] 05/19/2019 01:32:00 AM EST [facility] ([facility]) Name Value Range Interpretation Code Description Data Teresa rce(s) Supporting Document(s) BEDSIDE GLUCOSE 117 MG/DL Above high normal BEDSIDE GLUCO SE [place] ([facility]) ID Date Data Source [id number] 05/19/2019 01:13:00 AM EST [facility] ([facility]) Name Value Range Interpretation Code Description Data Teresa rce(s) Supporting Document(s) Reported Physicians See Note Reported [facility] ([facility]) Note: Reported Physicians:Ordering: GEE MORAN [id number], ARIANNA MDAttending: LWANGA ANITAAdmitting: LWMARGOT ANITACopy To: DUKE LEEITACopy To: Orville Iverson ID Date Data Source [id number] 05/19/2019 01:13:00 AM [facility] ([facility]) Name Value Range Interpretation Code Description Data Teresa rce(s) Supporting Document(s) LACTIC ACID SEPSIS PROTOCOL 1.0 MMOL/L Normal LACTIC A SAMIA SEPSIS PROTOCOL [place] ([facility]) Notes [TIMP] See Note NOTES [place] ([facility]) Note: Y/N query for Sepsis Lactate Rule: Y ID Date Data Source [id number] 05/18/2019 08:40:00 PM [facility] ([facility]) Name Value Range Interpretation Code Description Data Teresa rce(s) Supporting Document(s) Reported Physicians See Note Reported [facility] ([facility]) Note: Reported Physicians:Ordering: ROLANDO JONES [id number]: JUSTIN BROCKSHAdmitting: LWANGA, ANITACopy To: TRACEY BROCKJESHCopy To: ROLANDO AHUMADACopnava To: Jerrell CoonipCopy To: Orville Iverson ID Date Data Source [id number] 05/18/2019 08:40:00 PM [facility] ([facility]) Name Value Range Interpretation Code Description Data Teresa rce(s) Supporting Document(s) BLOOD CULTURE See Note BLOOD CULTURE [place] ([facility]) Note: No growth after 72 hours . All spe cimens observedfor 5 days. Results final at that time.No growth after 48 hours . All specimens observedfor 5 days. Results final at that time.No growth after 24 hours . All specimens observedfor 5 days. Results final at that time.NO GROWTH AFTER 5 DAYS Notes [TIMP] See Note NOTES [place] ([facility]) Note: Culture Source: BLOOD ID Date Data Source [id number] 05/18/2019 08:39:00 PM EST [facility] ([facility]) Name Value Range Interpretation Code Description Data Teresa rce(s) Supporting Document(s) Reported Physicians See Note Reported Physici ans [place] ([facility]) Note: Reported Physicians:Ordering: Orquidea Brock [id number] DavidAttending: Seven Coon To: Seven Coon To: Orville Iverson ID Date Data Source [id number] 05/18/2019 08:39:00 PM EST [facility] ([facility]) Name Value Range Interpretation Code Description Data Teresa rce(s) Supporting Document(s) iSTAT HCT 39.0 % Normal iSTAT HCT [place] ([facility]) iSTAT GLUCOSE 124 MG/DL Above high normal iSTAT GLUCOSE G [facility] ([facility]) iSTAT SODIUM 136 MEQ/L Normal iSTAT SODIUM [place] ( [facility]) iSTAT POTASSIUM 4.1 MEQ/L Normal iSTAT POTASSIUM [facility] ([facility]) iSTAT CA++ 4.3 MG/DL Below low normal iSTAT CA++ [place] ([facility]) iSTAT CHLORIDE 98 MEQ/L Normal iSTAT CHLORIDE [facility] ([facility]) iSTAT CO2 27.0 MM/L Normal iSTAT CO2 [place] ([facility]) iSTAT BUN 11 MG/DL Normal iSTAT BUN [place] ([facility]) iSTAT CREATININE 0.7 MG/DL Normal [facility]STAT [facility]) ID Date Data Source [id number] 05/18/2019 08:36:00 PM EST [facility] ([facility]) Name Value Range Interpretation Code Description Data Teresa rce(s) Supporting Document(s) Reported Physicians See Note Reported Physici ans [place] ([facility]) Note: Reported Physicians:Ordering: Orquidea Brock [id number] DavidAttending: Seven Coon To: Seven Coon To: Orville Iverson ID Date Data Source [id number] 05/18/2019 08:36:00 PM [facility] ([facility]) Name Value Range Interpretation Code Description Data Teresa rce(s) Supporting Document(s) BEDSIDE GLUCOSE 128 MG/DL Above high normal BEDSIDE GLUCO SE [place] ([facility]) ID Date Data Source [id number] 05/18/2019 08:20:00 PM [facility] ([facility]) Name Value Range Interpretation Code Description Data Teresa rce(s) Supporting Document(s) Reported Physicians See Note Reported Physici ans [place] ([facility]) Note: Reported Physicians:Ordering: RICK LUND [id number]: RICK BROCKAdmitting: LWANGA, ANITACopy To: RICK BROCKCopnava To: JESUS ANITACopy To: Orville Iverson ID Date Data Source [id number] 05/18/2019 08:20:00 PM [facility] ([facility]) Name Value Range Interpretation Code Description Data Teresa rce(s) Supporting Document(s) URINE CULTURE See Note Normal URINE CULTURE [place] ([facility]) Note: FULL REPORT IN LAB NOTES (eCW and Medent).ORGANISM 1: ESCHERICHIA COLICOLONY COUNT >100,000ORGANISM 1: ESCHERICHIA COLIESCHERICHIA COLI: REACTIONEXTD BRD SPCTRM BETA LACTAMASE IV NEGATIVE FOR ESBLTRIMETHOPRIM/SULFAMETHOXAZOLE IV 160mg TMP & 800mg SMXq6h <=20 STRIMETHOPRIM/SULFAMETHOXAZOLE PO Bactrim DS Bid <=20 SAMPICILLIN IV 500mg q6h <=2 SAMPICILLIN PO 500mg q6h fasting <=2 SGENTAMICIN IV 80mg q8h <=1 SNITROFURANTOIN PO 100mg BID <=16 SCEFAZOLIN IV 1gm q8h <=4 SLEVOFLOXACIN IV 500mg qd >=8 RLEVOFLOXACIN PO 250mg qd >=8 RLEVOFLOXACIN PO 500mg qd >=8 RTOBRAMYCIN IV 80mg q8h <=1 SCEFTRIAXONE IV 1gm q24h <=1 SCEFTAZIDIME IV 1gm q8h <=1 SAMPICILLIN/SULBACTAM IV 1.5g q6h <=2 SPIPERACILLIN/TAZOBACTAM IV 2.25 gm q6h <=4 SAZTREONAM IV 1gm q8h <=1 SERTAPENEM IV 1gm qd <=0.5 SMEROPENEM IV 1 gm q8h <=0.25 SMEROPENEM IV 500 mg q8h <=0.25 STIGECYCLINE IV 50mg q12h <=0.5 SCEFEPIME IV 1 gm q12h <=1 SCEFEPIME IV 2 gm q12h <=1 S Notes [TIMP] See Note NOTES [place] ([facility]) Note: Urine Culture Indication Severe Se psis Comments: Abnormal UA with a fever; not severe sepsis ID Date Data Source [id number] 05/18/2019 08:10:00 PM [facility] ([facility]) Name Value Range Interpretation Code Description Data Teresa rce(s) Supporting Document(s) Reported Physicians See Note Reported Gr[facility]iel[facility] ([facility]) Note: Reported Physicians:Ordering: GEE MORAN [id number], ARIANNA MDAttending: ARIANNA LEEAdmitting: ARIANNA LEECopnava To: ARIANNA LEECopnava To: Orville Iverson ID Date Data Source [id number] 05/18/2019 08:10:00 PM [facility] ([facility]) Name Value Range Interpretation Code Description Data Teresa rce(s) Supporting Document(s) Hemoglobin A1c in Blood 6.2 % Normal HEMOGLOBIN A [address] [place] [address] ([facility]) Note: REFERENCE RANGES: 4.5-5.6% NOR MAL 5.7-6.4% SUGGESTS IMPAIRED GLUCOSE METABOLISM >= 6.5% ABNORMAL Glucose mean value [Moles/volume] in Blood Estimated f rom glycated hemoglobin 131 MG/DL Above high normal ESTIMATED AVERAGE GLUCOSE [facility] ([facility]) ID Date Data Source [id number] 05/18/2019 08:10:00 PM [facility]) Name Value Range Interpretation Code Description Data Teresa rce(s) Supporting Document(s) Reported Physicians See Note Reported Graciela landaver[facility] ([facility]) Note: Reported Physicians:Ordering: SIXTO MELÉNDEZ [id number], ROLANDO OdellAttending: Seven Coon To: Seven Coon To: Katie AHUMADA To: Orville Iverson ID Date Data Source [id number] 05/18/2019 08:10:00 PM EST [facility] ([facility]) Name Value Range Interpretation Code Description Data Teresa rce(s) Supporting Document(s) APPEARANCE, URINE HAZY Normal APPEARANCE, URINE [place] ([facility]) COLOR, URINE YELLOW Normal COLOR, URINE [place] ( [facility]) PH,URINE 7.0 UNITS Normal PH,URINE [place] ([facility]) SPECIFIC GRAVITY URINE AUTO 1.011 Normal SPECIFIC GRAVITY URINE AUTO [place] ([facility]) PROTEIN, URINE AUTO NEGATIVE mg/dL Normal PROTEIN, URI NE AUTO [place] ([facility]) GLUCOSE, URINE (UA) AUTO NEGATIVE mg/dL Normal GLUCOSE , URINE (UA) AUTO [place] ([facility]) KETONE, URINE AUTO NEGATIVE mg/dL Normal KETONE, URINE AUTO [place] ([facility]) UROBILINOGEN, URINE AUTO 0.2 mg/dL Normal UROBILINOGE N, URINE AUTO [place] ([facility]) BILIRUBIN, URINE AUTO NEGATIVE Normal BILIRUBIN, URI NE AUTO [place] ([facility]) NITRITE, URINE AUTO POSITIVE Normal NITRITE, URINE A UTO [place] ([facility]) LEUKOCYTE ESTERASE, URINE AUTO TRACE Above high normal LEUKOCYTE ESTERASE, URINE AUTO [place] ([facility]) BLOOD, URINE BLOOD NEGATIVE Normal BLOOD, URINE BLOO D [place] ([facility]) WBC, URINE AUTO 20 /HPF Above high normal WBC, URINE AU TO [place] ([facility]) RBC, URINE AUTO 7 /HPF Above high normal RBC, URINE AU TO [place] ([facility]) BACTERIA, URINE AUTO 3+ Above high normal BACTERIA , URINE AUTO [place] ([facility]) SQUAMOUS EPITHELIAL CELL UR AU 0 /HPF Normal SQUAM OUS EPITHELIAL CELL UR AU [place] ([facility]) MUCUS, URINE SMALL Normal MUCUS, URINE [place] ([facility]) HYALINE CAST, URINE AUTO 0 /LPF Normal HYALINE FREDERICK T, URINE AUTO [place] ([facility]) ID Date Data Source [id number] 05/18/2019 08:10:00 PM EST [facility] ([facility]) Name Value Range Interpretation Code Description Data Teresa rce(s) Supporting Document(s) Reported Physicians See Note Reported Physici ans [place] ([facility]) Note: Reported Physicians:Ordering: SIXTO MELÉNDEZ [id number]: Seven Coon To: Seven Coon To: Katie AHUMADA To: Orville Iverson ID Date Data Source [id number] 05/18/2019 08:10:00 PM EST [place] ([facility]) Name Value Range Interpretation Code Description Data Teresa rce(s) Supporting Document(s) VENOUS PH 7.542 UNITS Above high normal VENOUS PH [facility]) VENOUS PARTIAL PRESSURE CO2 32.3 mmHg Below low nor mal VENOUS PARTIAL PRESSURE CO2 [facility]) VENOUS PARTIAL PRESSURE O2 131.0 mmHg Above high nor mal VENOUS PARTIAL PRESSURE O2 [facility]) VENOUS TOTAL CO2 28.1 MEQ/L Above high normal VENOUS TOTAL CO2 [facility]) VENOUS HCO3 27.1 MEQ/L Above high normal VENOUS HCO3 [facility]) VENOUS BASE EXCESS 5.0 Above high normal VENOUS BAS E EXCESS [place] ([facility]) VENOUS STANDARD HCO3 29.0 MEQ/L Normal VENOUS STANDARD HCO3 [place] ([facility]) VENOUS O2 SATURATION 98.8 % Above high normal VENOUS O 2 SATURATION [facility]) ID Date Data Source [id number] 05/18/2019 08:10:00 PM EST [place] ([facility]) Name Value Range Interpretation Code Description Data Teresa rce(s) Supporting Document(s) Reported Physicians See Note Reported Physici ans [place] ([facility]) Note: Reported Physicians:Ordering: ROLANDO JONES [phone]: RICK BROCKAdmitting: Jaren LEE To: RICK BROCKCopy To: Katie AHUMADA To: Seven Coon To: Orville Iverson ID Date Data Source [id number] 05/18/2019 08:10:00 PM [facility] ([facility]) Name Value Range Interpretation Code Description Data Teresa rce(s) Supporting Document(s) BLOOD CULTURE See Note BLOOD CULTURE [place] ([facility]) Note: No growth after 72 hours . All spe cimens observedfor 5 days. Results final at that time.No growth after 48 hours . All specimens observedfor 5 days. Results final at that time.No growth after 24 hours . All specimens observedfor 5 days. Results final at that time.NO GROWTH AFTER 5 DAYS Notes [TIMP] See Note NOTES [place] ([facility]) Note: Culture Source: BLOOD ID Date Data Source [id number] 05/18/2019 07:53:00 PM [facility] Name Value Range Interpretation Code Description Data Teresa rce(s) Supporting Document(s) Reported Physicians See Note Reported Physici ans [place] ([facility]) Note: Reported Physicians:Ordering: SIXTO MELÉNDEZ [id number] WolfAttending: Seven Coon To: Seven Coon To: Katie AHUMADA To: Orville Iverson ID Date Data Source [id number] 05/18/2019 07:53:00 PM [facility]) Name Value Range Interpretation Code Description Data [facility] rce(s) Supporting Document(s) HCG, SERUM QUANTITATIVE 7 MIU/ML Normal HCG, SERUM Q UANTITATIVE [place] ([facility]) Note: GESTATIONAL AGE APPRO XIMATE HCG RANGE (MIU/ML) 0.2-1 WEEK 5-50 1-2 WEEKS 50-500 2-3 WEEKS 100-5,000 3-4 WEEKS 500-10,000 4-5 WEEKS 1,000-50,000 5-6 WEEKS 10,000-100,000 6-8 WEEKS 15,000-200,000 2-3 MONTHS 10,000-100,000 NON FEMALES LESS THAN 3.0 Patient samples may contain human heterophilic antibodies that could react with immunoassays to give falsely elevated or depressed results. This assay has been designed to minimize interference from heterophilic antibodies. Elevated hCG levels have also been associated with trophoblastic disease and nontrophoblastic neoplasms. The possibility of having these diseases should be considered before a diagnosis of is made. This test is not intended for use as a surrogate marker for aiding in the diagnosis or monitoring the treatment of cancer patients. Siemens [place] methodology. ID Date Data Source [id number] 05/18/2019 07:53:00 PM [facility] ([facility]) Name Value Range Interpretation Code Description Data Teresa rce(s) Supporting Document(s) Reported Physicians See Note Reported Physici ans [facility]) Note: Reported Physicians:Ordering: SIXTO MELÉNDEZ [id number] WolfAttending: Seven Coon To: Seven Coon To: Katie AHUMADA To: Orville Iverson ID Date Data Source [id number] 05/18/2019 07:53:00 PM [facility] ([facility]) Name Value Range Interpretation Code Description Data Teresa rce(s) Supporting Document(s) WHITE BLOOD COUNT 20.0 3/uL Above high normal WHITE BLOOD COUNT [facility]) Note: A Pathologist review of this diffe rential can help in the evaluation of a differential diagnosis. Please order a Pathologist Review (PATHREVCOMP) if deemed necessary. Results are subject to change if a Pathologist Review is performed. RED BLOOD COUNT 4.26 6/uL Normal RED BLOOD COUNT [facility] ([facility]) Hemoglobin [Mass/volume] in Mixed venous blood by Oximetry 13.0 g/d l Normal HEMOGLOBIN [place] ([facility]) Hematocrit [Pure volume fraction] of Blood by Automated count 39.4 % Normal HEMATOCRIT [facility]) MEAN CORPUSCULAR VOLUME 92.5 fl Normal MEAN CORPUSC ULAR VOLUME [place] ([facility]) MEAN CORPUSCULAR HEMOGLOBIN 30.5 pg Normal MEAN COR PUSCULAR HEMOGLOBIN [place] ([facility]) MEAN CORPUSCULAR HGB CONC 33.0 g/dl Normal MEAN CORPU SCULAR HGB CONC [place] ([facility]) RED CELL DISTRIBUTION WIDTH 13.8 % Normal RED CELL DISTRIBUTION WIDTH [place] ([facility]) PLATELET COUNT, AUTOMATED 287 3/uL Normal PLATELET C OUNT, AUTOMATED [place] ([facility]) NUCLEATED RED BLOOD CELL % 0.0 % Normal NUCLEATED RED BLOOD CELL % [place] ([facility]) ID Date Data Source [id number] 05/18/2019 07:53:00 PM [facility] ([facility]) Name Value Range Interpretation Code Description Data Teresa rce(s) Supporting Document(s) Reported Physicians See Note Reported Physici ans [place] ([facility]) Note: Reported Physicians:Ordering: SIXTO MELÉNDEZ [id number] WolfAttending: Seven Coon To: Seven Coon To: Katie AHUMADA To: Orville vIerson ID Date Data Source [id number] 05/18/2019 07:53:00 PM [facility] ([facility]) Name Value Range Interpretation Code Description Data Teresa rce(s) Supporting Document(s) AST/SGOT 9 U/L Normal AST/SGOT [place] ([facility]) ALT/SGPT 22 U/L Normal ALT/SGPT [place] ([facility]) Alkaline phosphatase [Enzymatic activity/volume] in Se rum, Plasma or Blood 88 U/L Normal ALKALINE PHOSPHATASE [place] ([facility]) BILIRUBIN,TOTAL 0.4 MG/DL Normal BILIRUBIN,TOTAL GREE [facility] ([facility]) BILIRUBIN,DIRECT 0.1 MG/DL Normal BILIRUBIN,DIRECT GR [facility] ([facility]) TOTAL PROTEIN 6.3 GM/DL Below low normal TOTAL PROTEIN GR [facility] ([facility]) Albumin [Mass/volume] in Blood by Bromocresol purple ( BCP) dye binding method 3.1 GM/DL Below low normal ALBUMIN [place] ([facility]) ALBUMIN/GLOBULIN RATIO 0.97 Below low normal ALBUMIN /GLOBULIN RATIO [place] ([facility]) ID Date Data Source [id number] 05/18/2019 07:53:00 PM EST [place] ([facility]) Name Value Range Interpretation Code Description Data Teresa rce(s) Supporting Document(s) Reported Physicians See Note Reported Physici ans [place] ([facility]) Note: Reported Physicians:Ordering: SIXTO MELÉNDEZ [id number] WolfAttending: Seven Coon To: Seven Coon To: Katie AHUMADA To: Orville Iverson ID Date Data Source [id number] 05/18/2019 07:53:00 PM EST [place] ([facility]) Name Value Range Interpretation Code Description Data Teresa rce(s) Supporting Document(s) LIPASE 58 U/L Below low normal LIPASE [place] ([facility]) ID Date Data Source [id number] 05/18/2019 07:53:00 PM EST [place] ([facility]) Name Value Range Interpretation Code Description Data Teresa rce(s) Supporting Document(s) Reported Physicians See Note Reported Physici ans [place] ([facility]) Note: Reported Physicians:Ordering: SIXTO MELÉNDEZ [id number] VillatoroAttending: Seven Coon To: Seven Coon To: Katie AHUMADA To: Orville Iverson ID Date Data Source [id number] 05/18/2019 07:53:00 PM EST [place] ([facility]) Name Value Range Interpretation Code Description Data Teresa rce(s) Supporting Document(s) Neutrophils [#] in Body fluid by Manual count 59 % N ormal NEUTROPHILS [place] ([facility]) BANDS 1 % Normal BANDS [place] ([facility]) Lymphocytes [#] in Body fluid by Manual count 29 % N ormal LYMPHOCYTES [place] ([facility]) Monocytes [#/volume] in Cord blood 6 % Above high n ormal MONOCYTES [place] ([facility]) Eosinophils [#] in Body fluid by Manual count 2 % N ormal EOSINOPHILS [place] ([facility]) Metamyelocytes [#] in Body fluid by Manual count 1 % Above high normal METAMYELOCYTES [place] ([facility]) ATYPICAL LYMPH 2 % Normal ATYPICAL LYMPH [facility] ([facility]) HYPOCHROMASIA 1+ Normal HYPOCHROMASIA [place] ([facility]) Anisocytosis [Presence] in Blood by Light microscopy 1+ Normal ANISOCYTOSIS [place] ([facility]) TEAR DROP CELLS 1+ Normal TEAR DROP CELLS [place] ([facility]) ID Date Data Source [id number] 05/18/2019 07:53:00 PM EST [place] ([facility]) Name Value Range Interpretation Code Description Data Teresa rce(s) Supporting Document(s) Reported Physicians See Note Reported Physici ans [place] ([facility]) Note: Reported Physicians:Ordering: SIXTO MELÉNDEZ [id number]: Seven Coon To: Seven Coon To: Katie AHUMADA To: Orville Iverson ID Date Data Source [id number] 05/18/2019 07:53:00 PM EST [place] ([facility]) Name Value Range Interpretation Code Description Data Teresa rce(s) Supporting Document(s) PLATELET ESTIMATE NORMAL Normal PLATELET ESTIMATE [place] ([facility]) ID Date Data Source [id number] 05/18/2019 07:08:00 PM EST [place] ([facility]) Name Value Range Interpretation Code Description Data Teresa rce(s) Supporting Document(s) Reported Physicians See Note Reported Physici [facility] ([facility]) Note: Reported Physicians:Ordering: Paige Royding: Seven Coon To: Seven Coon To: Cliff PEARL To: Orville Iverson ID Date Data Source [id number] 05/18/2019 07:08:00 PM EST [place] ([facility]) Name Value Range Interpretation Code Description Data Teresa rce(s) Supporting Document(s) INFLUENZA A AMPLIFICATION NEGATIVE Normal INFLUENZA A AMPLIFICATION [place] ([facility]) Note: Negative results do not preclude i nfluenza or RSV virus infection and should not be used as the sole basis for treatment or other patient management decisions. INFLUENZA B AMPLIFICATION NEGATIVE Normal INFLUENZA B AMPLIFICATION [place] ([facility]) Note: Negative results do not preclude i nfluenza or RSV virus infection and should not be used as the sole basis for treatment or other patient management decisions. ID Date Data Source [id number] 05/14/2019 01:02:00 PM EST [place] ([facility]) Name Value Range Interpretation Code Description Data Teresa rce(s) Supporting Document(s) Reported Physicians See Note Reported Physici ans [place] ([facility]) Note: Reported Physicians:Ordering: HEYDI MONROE [id number] ScottAttending: Frankie SALAZAR To: Frankie SALAZAR To: Orville Iverson ID Date Data Source [id number] 05/14/2019 01:02:00 PM EST [place] ([facility]) Name Value Range Interpretation Code Description Data Teresa rce(s) Supporting Document(s) iSTAT B-hCG 15.1 Normal iSTAT B-hCG [place] ([facility]) Note: QUANTITATIVE RESULT QUALI TATIVE INTERPRETATION <5.0 IU/L NEGATIVE 5.0 - 25.0 IU/L INDETERMINATE > 25.0 IU/L POSITIVE ID Date Data Source [id number] 05/14/2019 12:59:00 PM EST [place] ([facility]) Name Value Range Interpretation Code Description Data Teresa rce(s) Supporting Document(s) Reported Physicians See Note Reported Physici ans [place] ([facility]) Note: Reported Physicians:Ordering: HEYDI MONROE [id number] ScottAttending: Frankie SALAZAR To: Frankie SALAZAR To: Orville Iverson ID Date Data Source [id number] 05/14/2019 12:59:00 PM EST [place] ([facility]) Name Value Range Interpretation Code Description Data Teresa rce(s) Supporting Document(s) iSTAT HCT 46.0 % Normal iSTAT HCT [place] ([facility]) iSTAT GLUCOSE 92 MG/DL Normal iSTAT GLUCOSE [place] ([facility]) iSTAT SODIUM 140 MEQ/L Normal iSTAT SODIUM [place] ( [facility]) iSTAT POTASSIUM 4.5 MEQ/L Normal iSTAT POTASSIUM [place] ([facility]) iSTAT CA++ 4.3 MG/DL Below low normal iSTAT CA++ [place] ([facility]) iSTAT CHLORIDE 103 MEQ/L Normal iSTAT CHLORIDE [place] ([facility]) iSTAT CO2 31.0 MM/L Above high normal iSTAT CO2 [place] ([facility]) iSTAT BUN 11 MG/DL Normal iSTAT BUN [place] ([facility]) iSTAT CREATININE 0.7 MG/DL Normal iSTAT CREATININE [facility] ([facility]) ID Date Data Source [id number] 03/15/2019 07:55:09 PM EST Laboratory [facility] Name Value Range Interpretation Code Description Data Teresa rce(s) Supporting Document(s) HEMOGLOBIN A1C @ 5.8 % (4.0-6.0) Laboratory [facility] - [facility] Performed using Siemens [place] immunoassa y.Care must be taken when interpreting [id number] in patients with a hemoglobin variantor decreased erythrocyte lifespan. Values 5.7 - 6.4% suggest prediabetes.Values >=6.5% are diagnostic for diabetes.REFERENCE: DIABETES CARE 2018: 41(S13-S27). EST AVERAGE GLUCOSE 120 mg/dL Laboratory [facility] ID Date Data Source [id number] 03/15/2019 08:16:50 PM EST Laboratory [facility] of [facility] [employer] Name Value Range Interpretation Code Description Data Teresa rce(s) Supporting Document(s) VITAMIN B12 @ 1491 pg/mL (193-986) H Laboratory [facility] ID Date Data Source [id number] 03/15/2019 08:16:50 PM EST Laboratory [facility] Name Value Range Interpretation Code Description Data Teresa rce(s) Supporting Document(s) SODIUM 141 mmol/L (136-145) [facility] [place] [facility] [place] [facility] POTASSIUM 3.8 mmol/L (3.6-5.2) [facility] [place] [facility] [place] [facility] CHLORIDE 106 mmol/L (100-108) [facility] [place] [facility] [place] [facility] CO2 30 mmol/L (22-31) [facility] [place] [facility] ANION GAP 5 mmol/L (7-16) L [facility] [place] [facility] [place] [facility] UREA NITROGEN 7 mg/dL (7-24) Laboratory [facility] [place] [facility] CREATININE 0.69 mg/dL (0.60-1.00) [facility] [place] [facility] [place] BUN/CREAT RATIO 10.1 RATIO (10.0-20.0) [facility] [place] [facility] [place] [facility] GLUCOSE 96 mg/dL (70-99) [facility] [place] [facility] CALCIUM 9.2 mg/dL (8.4-10.2) [facility] [place] [facility] [place] [facility] TOTAL PROTEIN 7.0 g/dL (6.4-8.2) [facility] [place] ALBUMIN 3.5 g/dL (3.5-4.6) [facility] [place] [facility] GLOBULIN 3.5 g/dL (2.7-4.3) [facility] [place] [facility] ALB/GLOB RATIO 1.0 RATIO [facility] [place] [facility] ALKALINE PHOSPHATASE 81 U/L (45-117) Laborator [facility] [place] [facility] [place] [facility] BILIRUBIN,TOTAL 0.4 mg/dL (0.0-1.0) [facility] [place] [facility] [place] [facility] AST (SGOT) 13 U/L (11-39) [facility] [place] [facility] [place] [facility] ALT (SGPT) 21 U/L (12-78) [facility] [place] [facility] [place] [facility] GFR >60 ml/min/1.73m2 (>59) Laboratory [facility] [place] GFR ( AMER) >60 ml/min/1.73m2 (>59) [facility] [place] [facility] [place] [facility] GFR INTERPRETATION [facility] [place] [facility] --NORMAL KIDNEY FUNCTION OR MILD DISEASE - GFR >OR= 60CHRONIC KIDNEY DISEASE - GFR 15 - 59RENAL FAILURE - GFR <15 Est. GFR calculation based on the MDRDstudy equation, which assumes a steadystate for creatinine. Est. GFR should notbe used for medication dosing. ID Date Data Source [id number] 03/15/2019 08:16:50 PM EST Laboratory [facility] of [employer] Name Value Range Interpretation Code Description Data Teresa rce(s) Supporting Document(s) FERRITIN @ 85 ng/mL (8-252) [facility] [employer] ID Date Data Source [id number] 03/15/2019 08:16:50 PM EST Laboratory [facility] [employer] Name Value Range Interpretation Code Description Data Teresa rce(s) Supporting Document(s) MAGNESIUM 1.9 mg/dL (1.7-2.4) Laboratory [facility] [employer] ID Date Data Source [id number] 03/15/2019 08:16:50 PM EST Laboratory [facility] [employer] Name Value Range Interpretation Code Description Data Teresa rce(s) Supporting Document(s) IRON,TOTAL @ 96 ug/dL (35-150) Laboratory [facility] of [employer] UIBC @ 153 ug/dL (130-375) Laboratory [facility] [employer] TIBC @ 249 ug/dL (250-450) L [facility] [employer] % SATURATION 39 % (12-50) Laboratory [facility] [employer] ID Date Data Source [id number] 03/15/2019 08:16:50 PM EST Laboratory [facility] [employer] Name Value Range Interpretation Code Description Data Teresa rce(s) Supporting Document(s) PHOSPHORUS 2.7 mg/dL (2.5-4.5) Laboratory [place] [facility] [employer] ID Date Data Source [id number] 03/15/2019 08:40:01 PM EST Laboratory [facility] [employer] Name Value Range Interpretation Code Description Data Teresa rce(s) Supporting Document(s) 25 HYDROXY VIT D @ 63 ng/mL (31-100) [facility] [place] [facility] [place] [facility] A REVIEW OF THE LITERATURE SUGGESTS THEF OLLOWING RANGES FOR THE CLASSIFICATIONOF 25-OH VITAMIN D STATUS: VITAMIN D STATUS 25-OH VITAMIN D DEFICIENCY <20 NG/MLINSUFFICIENCY 20-30 NG/MLSUFFICIENCY 31 - 100 NG/MLTOXICITY > 100 NG/ML A PEDIATRIC REFERENCE RANGE HAS NOT BEENESTABLISHED USING THIS METHOD. ID Date Data Source [id number] 03/15/2019 08:46:33 PM EST [facility] [place] [facility] Name Value Range Interpretation Code Description Data Teresa rce(s) Supporting Document(s) WBC 11.1 10*3/uL (4.1-11.0) H Laboratory [facility] [place] [facility] RBC 4.50 10*6/uL (4.00-5.40) Laboratory [facility] [place] [facility] HGB 14.0 g/dL (12.0-16.0) [facility] [place] [facility] HCT 41.2 % (36.0-47.0) [facility] [place] [facility] MCV 91.6 fL (80.0-95.0) [facility] [place] [facility] [place] MCH 31.2 pg (27.0-32.0) [facility] [place] [facility] MCHC 34.0 g/dL (32.0-36.0) [facility] [place] [facility] RDW 14.0 % (10.5-14.5) [facility] [place] [facility] PLT 309 10*3/uL (150-450) [facility] [place] [facility] MPV 8.8 fL (7.1-10.7) [facility] [place] [facility] [place] [facility] NEUT % 42.0 % (35.0-75.0) [facility] [place] [facility] BAND % 1.0 % (0.0-11.0) [facility] [place] [facility] [place] [facility] LYMPH % 43.0 % (16.0-52.0) [facility] [place] [facility] ATYP LYMPH % 2.0 % (0.0-5.0) [facility] [place] [facility] MONO % 7.0 % (0.0-8.0) [facility] [place] [facility] [place] [facility] EOS % 5.0 % (0.0-5.0) [facility] [place] [facility] [place] [facility] NEUT # 4.7 10*3/uL (1.8-7.7) [facility] [place] [facility] BAND # 0.1 10*3/uL [facility] [place] [facility] LYMPH # 4.8 10*3/uL (1.2-4.8) [facility] [place] [facility] ATYP LYMPH # 0.2 10*3/uL Laboratory [place] [facility] [facility] [place] MONO # 0.8 10*3/uL (0.0-0.8) [facility] [place] [facility] Eosinophils [#/volume] in Blood by Automated count 0.6 10*3/uL (0.0-0 .5) H [facility] [place] [facility] [place] [facility] ANISO 1+ [facility] [place] [facility] [place] [facility] LARGE PLT 1+ [facility] [place] [facility] [place] [facility] DIFF COMMENT [facility] [place] [facility] ID Date Data Source [id number] 03/18/2019 03:56:43 PM EST [facility] [place] [facility] Name Value Range Interpretation Code Description Data Teresa rce(s) Supporting Document(s) SR HCT 41.2 % [facility] [place] [facility] [place] [facility] FOLATE RBC 1075 ng/mL [facility] [place] [facility] Reference range: >=366 Performed by [facility], [address] [place] [id number] [email or web address], Delta Mendoza MD, Lab. Director Procedure Social History Code Duration Value Status Description Data Source(s ) Smoking 04/26/2020 12:00:00 AM EST Unknown if ever smoked comp leted Unknown if ever smoked [facility] ([facility]) Smoking 04/17/2020 12:00:00 AM EST Unknown if ever smoked comp leted Unknown if ever smoked [facility] ([facility]) Smoking 04/02/2020 12:00:00 AM EST Unknown if ever smoked comp leted Unknown if ever smoked [facility] ([facility]) Smoking 03/20/2020 12:00:00 AM EST Unknown if ever smoked comp leted Unknown if ever smoked [facility] ([facility]) Smoking 03/19/2020 12:00:00 AM EST Current Smoker completed Curre nt Smoker eCW1 ([facility]) Smoking 03/19/2020 12:00:00 AM EST Current Smoker completed Curre nt Smoker eCW1 ([facility]) Smoking 03/19/2020 12:00:00 AM EST Current Smoker completed Curre nt Smoker eCW1 ([facility]) Smoking 03/05/2020 12:00:00 AM EST Current Smoker completed Curre nt Smoker eCW1 ([facility]) Smoking 02/28/2020 12:00:00 AM EST Unknown if ever smoked comp leted Unknown if ever smoked [facility] ([facility]) Smoking 02/14/2020 12:00:00 AM EDT Current Smoker completed Curre nt Smoker eCW1 ([facility]) Smoking 02/14/2020 12:00:00 AM EDT Current Smoker completed Curre nt Smoker eCW1 ([facility]) Smoking 02/14/2020 12:00:00 AM EDT Current Smoker completed Curre nt Smoker eCW1 ([facility]) Smoking 01/31/2020 12:00:00 AM EDT Current Smoker completed Curre nt Smoker eCW1 ([facility]) Smoking 11/07/2019 12:00:00 AM EDT Current Smoker completed Curre nt Smoker eCW1 ([facility]) Smoking 11/07/2019 12:00:00 AM EDT Current Smoker completed Curre nt Smoker eCW1 ([facility]) Smoking 10/19/2019 12:00:00 AM EDT Unknown if ever smoked comp leted Unknown if ever smoked [facility] ([facility]) Smoking 10/05/2019 12:00:00 AM EDT Unknown if ever smoked comp leted Unknown if ever smoked [facility] ([facility]) Smoking 10/03/2019 12:00:00 AM EDT Unknown if ever smoked comp leted Unknown if ever smoked [facility] ([facility]) Smoking 09/13/2019 12:00:00 AM EDT Unknown if ever smoked comp leted Unknown if ever smoked [facility] ([facility] Smoking 07/24/2019 12:00:00 AM EDT Unknown if ever smoked comp leted Unknown if ever smoked [facility] ([facility]) Smoking 07/19/2019 12:00:00 AM EDT Unknown if ever smoked comp leted Unknown if ever smoked [facility] ([facility]) Smoking 07/12/2019 12:00:00 AM EDT Unknown if ever smoked comp leted Unknown if ever smoked [facility] ([facility]) Smoking 07/07/2019 12:00:00 AM EDT Unknown if ever smoked comp leted Unknown if ever smoked [facility] ([facility]) Smoking 06/14/2019 12:00:00 AM EST Unknown if ever smoked comp leted Unknown if ever smoked [facility] ([facility]) Smoking 05/17/2019 12:00:00 AM EST Unknown if ever smoked comp leted Unknown if ever smoked [facility] ([facility]) Smoking 05/02/2019 12:00:00 AM EST Unknown if ever smoked comp leted Unknown if ever smoked [facility] ([facility]) Smoking 04/17/2019 12:00:00 AM EST Unknown if ever smoked comp leted Unknown if ever smoked [facility] ([facility]) Smoking 04/13/2019 12:00:00 AM EST Unknown if ever smoked comp leted Unknown if ever smoked [facility] ([facility]) Smoking 04/05/2019 12:00:00 AM EST Unknown if ever smoked comp leted Unknown if ever smoked [facility] ([facility]) Smoking 03/22/2019 12:00:00 AM EST Unknown if ever smoked comp leted Unknown if ever smoked [facility] ([facility]) Smoking 03/06/2019 12:00:00 AM EST Unknown if ever smoked comp leted Unknown if ever smoked [facility] ([facility]) Smoking 03/02/2019 12:00:00 AM EST Unknown if ever smoked comp leted Unknown if ever smoked [facility] ([facility]) Vital Signs ID Date Data Source UNK Name Value Range Interpretation Code Description Data Source(s) Body mass index (BMI) [Ratio] 55.7 kg/m2 55.7 k g/m2 [facility] ([facility]) Body height 61 [in_i] 61 [in_i] [facility] ([facility]) 5'1" Body weight 295.00 [lb_av] 295.00 [lb_av] MEDEN T ([facility], [facility]) Body temperature 98.6 [degF] 98.6 [degF] [facility] ([facility], [facility]) Oxygen saturation in Arterial blood by Pulse oximetry 99 % 99 % [facility] ([facility], [facility]) Respiratory rate 16 /min 16 /min [facility] ( [facility], [facility]) Heart rate 99 /min 99 /min [facility] ([facility]) Diastolic blood pressure 77 mm[Hg] 77 mm[Hg] [facility] ([facility], [facility]) Systolic blood pressure 144 mm[Hg] 144 mm[Hg] M EDENT ([facility], [facility]) Body temperature 97.2 [degF] 97.2 [degF] [facility] ([facility]) Body weight 133.812 kg 133.812 kg MEDENT ([facility]) Body mass index (BMI) [Ratio] 55.7 kg/m2 55.7 k g/m2 MEDENT ([facility]) Heart rate 93 /min 93 /min [facility] ([facility]) Diastolic blood pressure 77 mm[Hg] 77 mm[Hg] [facility] ([facility]) Systolic blood pressure 137 mm[Hg] 137 mm[Hg] M EDENT ([facility]) Body weight 295.00 [lb_av] 295.00 [lb_av] MEDEN T ([facility]) Body height 61 [in_i] 61 [in_i] MEDENT ([facility]) 5'1" Diastolic blood pressure 0 mm[Hg] Normal (applies to non-numeric results) 0 mm[Hg] [facility] ([facility]) Systolic blood pressure 0 mm[Hg] Normal (applies t o non-numeric results) 0 mm[Hg] [facility] ([facility]) Body mass index (BMI) [Ratio] 0.00 kg/m2 No rmal (applies to non-numeric results) 0.00 kg/m2 [facility] ([facility]) Body weight Measured 0.00 lbs Normal (applies to n on-numeric results) 0.00 lbs [facility] ([facility]) Body height 0.00 in Normal (applies to non-numeric resu lts) 0.00 in [facility] ([facility]) Mittie body weight 105 [lb_av] 105 [lb_av] MEDEN T ([facility]) Oxygen saturation in Arterial blood by Pulse oximetry 99 % 99 % [facility] ([facility]) Body temperature 97.1 [degF] 97.1 [degF] [facility]) Respiratory rate 24 /min 24 /min MEDENT ( [facility]) Heart rate 92 /min 92 /min [facility] Body mass index (BMI) [Ratio] 55.9 kg/m2 55.9 k g/m2 MEDENT ([facility]) Body weight 299.00 [lb_av] 299.00 [lb_av] MEDEN T ([facility]) Body height 61.3 [in_i] 61.3 [in_i] MEDENT ([facility]) 5'1.30" Diastolic blood pressure 80 mm[Hg] 80 mm[Hg] MEDENT ([facility]) Systolic blood pressure 126 mm[Hg] 126 mm[Hg] M EDENT ([facility]) Body mass index (BMI) [Ratio] 57.31 kg/m2 57.31 kg/m2 W1 ([facility]) Body height 60.5 [in_i] 60.5 [in_i] W1 ([facility]) Body weight 298.4 [lb_av] 298.4 [lb_av] W1 ([facility]) Mittie body weight 105 [lb_av] 105 [lb_av] MEDEN T ([facility]) Oxygen saturation in Arterial blood by Pulse oximetry 97 % 97 % MEDENT ([facility]) Body temperature 98.1 [degF] 98.1 [degF] MEDENT ([facility]) Respiratory rate 20 /min 20 /min MEDENT ( [facility]) Heart rate 104 /min 104 /min MEDENT ([facility]) Body mass index (BMI) [Ratio] 56.1 kg/m2 56.1 k g/m2 MEDENT ([facility]) Body weight 300.00 [lb_av] 300.00 [lb_av] MEDEN T ([facility]) Body height 61.3 [in_i] 61.3 [in_i] MEDENT ([facility]) 5'1.30" Diastolic blood pressure 68 mm[Hg] 68 mm[Hg] MEDENT ([facility]) Systolic blood pressure 136 mm[Hg] 136 mm[Hg] M EDENT ([facility]) Diastolic blood pressure 67 mm[Hg] 67 mm[Hg] eCW1 ([facility]) Systolic blood pressure 119 mm[Hg] 119 mm[Hg] e CW1 ([facility]) Body temperature 96.7 [degF] 96.7 [degF] eCW1 ( [facility]) Respiratory rate 18 /min 18 /min eCW1 ([facility]) Heart rate 98 /min 98 /min eCW1 ([facility] Body mass index (BMI) [Ratio] 56.24 kg/m2 56.24 kg/m2 eCW1 ([facility]) Body height 60.5 [in_i] 60.5 [in_i] eCW1 ([facility]) Body weight 292.8 [lb_av] 292.8 [lb_av] eCW1 ([facility]) Body temperature 97.0 [degF] 97.0 [degF] MEDENT ([facility]) Body weight 132.451 kg 132.451 kg MEDENT ([facility]) Body mass index (BMI) [Ratio] 55.2 kg/m2 55.2 k g/m2 [facility] ([facility]) Heart rate 109 /min 109 /min [facility] ([facility]) Diastolic blood pressure 74 mm[Hg] 74 mm[Hg] MED[facility] ([facility]) Systolic blood pressure 124 mm[Hg] 124 mm[Hg] M EDENT ([facility]) Body weight 292.00 [lb_av] 292.00 [lb_av] MEDEN T ([facility]) Body height 61 [in_i] 61 [in_i] [facility] 5'1" Diastolic blood pressure 72 mm[Hg] 72 mm[Hg] eCW1 ([facility]) Systolic blood pressure 118 mm[Hg] 118 mm[Hg] e CW1 ([facility]) Body mass index (BMI) [Ratio] 55.70 kg/m2 55.70 kg/m2 eCW1 ([facility]) Body height 60.5 [in_i] 60.5 [in_i] eCW1 ([facility]) Body weight 290 [lb_av] 290 [lb_av] eCW1 ([facility]) Diastolic blood pressure 79 mm[Hg] 79 mm[Hg] eCW1 ([facility]) Systolic blood pressure 134 mm[Hg] 134 mm[Hg] e CW1 ([facility]) Body temperature 97.9 [degF] 97.9 [degF] eCW1 ( [facility]) Respiratory rate 18 /min 18 /min eCW1 ([facility]) Heart rate 103 /min 103 /min eCW1 ([facility]) Body mass index (BMI) [Ratio] 56.74 kg/m2 56.74 kg/m2 eCW1 ([facility]) Body height 60.5 [in_i] 60.5 [in_i] eCW1 ([facility]) Body weight 295.4 [lb_av] 295.4 [lb_av] eCW1 ([facility]) Body temperature 96.8 [degF] 96.8 [degF] MEDENT ([facility] ) Body mass index (BMI) [Ratio] 55.5 kg/m2 55.5 k g/m2 MEDENT ([facility]) Body weight 294.00 [lb_av] 294.00 [lb_av] MEDEN T ([facility]) Body height 61 [in_i] 61 [in_i] MEDENT ([facility]) 5'1" Body temperature 968.0 [degF] 968.0 [degF] MEDE NT ([facility]) Diastolic blood pressure 69 mm[Hg] 69 mm[Hg] eCW1 ([facility]) Systolic blood pressure 140 mm[Hg] 140 mm[Hg] e CW1 ([facility]) Body temperature 96.7 [degF] 96.7 [degF] eCW1 ( [facility]) Respiratory rate 18 /min 18 /min eCW1 ([facility]) Heart rate 97 /min 97 /min eCW1 ([facility]) Body mass index (BMI) [Ratio] 56.43 kg/m2 56.43 kg/m2 eCW1 ([facility]) Body height 60.5 [in_i] 60.5 [in_i] eCW1 ([facility]) Body weight 293.8 [lb_av] 293.8 [lb_av] eCW1 ([facility]) Diastolic blood pressure 75 mm[Hg] 75 mm[Hg] eCW1 ([facility]) Systolic blood pressure 126 mm[Hg] 126 mm[Hg] e CW1 ([facility]) Body temperature 97.8 [degF] 97.8 [degF] eCW1 ( [facility]) Respiratory rate 18 /min 18 /min eCW1 ([facility]) Heart rate 98 /min 98 /min eCW1 ([facility]) Body mass index (BMI) [Ratio] 59.73 kg/m2 59.73 kg/m2 eCW1 ([facility]) Body height 60.5 [in_i] 60.5 [in_i] eCW1 ([facility]) Body weight 311 [lb_av] 311 [lb_av] eCW1 ([facility]) Body mass index (BMI) [Ratio] 57.5 kg/m2 57.5 k g/m2 MEDENT ([facility]) Body weight 304.50 [lb_av] 304.50 [lb_av] MEDEN T ([facility]) Body height 61 [in_i] 61 [in_i] MEDENT ([facility]) 5'1" Body temperature 97.5 [degF] 97.5 [degF] MEDENT ([facility]) Body surface area Derived from formula 2.26 m2 2.26 m2 [facility] ([facility]) Body weight 138.348 kg 138.348 kg [facility] ([facility]) Mittie body weight 105 [lb_av] 105 [lb_av] MEDEN T ([facility]) Body mass index (BMI) [Ratio] 57.6 kg/m2 57.6 k g/m2 [facility] ([facility]) Body weight 305.00 [lb_av] 305.00 [lb_av] MEDEN T ([facility]) Body height 61 [in_i] 61 [in_i] [facility] ([facility]) 5'1" Diastolic blood pressure 86 mm[Hg] 86 mm[Hg] [place] ([facility]) Systolic blood pressure 150 mm[Hg] 150 mm[Hg] [facility] ([facility]) Inhaled oxygen concentration 21 % 21 % [place] ([facility]) Inhaled oxygen flow rate 0 L/min 0 L/min [place] ([facility]) Oxygen saturation in Arterial blood by Pulse oximetry 97 % 97 % [place] ([facility]) Body surface area Derived from formula 2.27 m2 2.27 m2 [place] ([facility]) Body mass index (BMI) [Ratio] 58.2 kg/m2 58.2 k g/m2 [place] ([facility]) Body weight 308 [lb_av] 308 [lb_av] SOFIA ([facility]) Body height 61 [in_i] 61 [in_i] [place] ([facility]) Body temperature 96.4 [degF] 96.4 [degF] [place] ([facility]) Respiratory rate 24 /min 24 /min [place] ([facility]) Heart rate 101 /min 101 /min [place] ([facility]) Diastolic blood pressure 86 mm[Hg] 86 mm[Hg] [place] ([facility]) Systolic blood pressure 136 mm[Hg] 136 mm[Hg] [facility] ([facility]) Inhaled oxygen concentration 21 % 21 % [place] ([facility]) Inhaled oxygen flow rate 0 L/min 0 L/min [place] ([facility]) Oxygen saturation in Arterial blood by Pulse oximetry 99 % 99 % [place] ([facility]) Body surface area Derived from formula 2.26 m2 2.26 m2 [place] ([facility]) Body mass index (BMI) [Ratio] 57.6 kg/m2 57.6 k g/m2 [place] ([facility]) Body weight 305 [lb_av] 305 [lb_av] [place] ([facility]) Body height 61 [in_i] 61 [in_i] [place] ([facility]) Body temperature 97.8 [degF] 97.8 [degF] [place] [facility] ([facility]) Respiratory rate 24 /min 24 /min [place] ([facility]) Heart rate 97 /min 97 /min [place] ([facility]) Diastolic blood pressure 80 mm[Hg] 80 mm[Hg] [place] ([facility]) Systolic blood pressure 130 mm[Hg] 130 mm[Hg] [facility] ([facility]) Oxygen saturation in Arterial blood by Pulse oximetry 95 % 95 % [place] ([facility]) Body surface area Derived from formula 2.24 m2 2.24 m2 [place] ([facility]) Body mass index (BMI) [Ratio] 56.7 kg/m2 56.7 k g/m2 [place] ([facility]) Body weight 300 [lb_av] 300 [lb_av] [place] ([facility]) Body height 61 [in_i] 61 [in_i] SOFIA ([facility]) Body temperature 98.7 [degF] 98.7 [degF] [facility] ([facility]) Respiratory rate 24 /min 24 /min [facility] ([facility]) Heart rate 108 /min 108 /min [place] ([facility]) Diastolic blood pressure 0 mm[Hg] Normal (applies to non-numeric results) 0 mm[Hg] [facility] ([facility]) Systolic blood pressure 0 mm[Hg] Normal (applies t o non-numeric results) 0 mm[Hg] [facility] ([facility]) Body mass index (BMI) [Ratio] 0.00 kg/m2 No rmal (applies to non-numeric results) 0.00 kg/m2 [facility] ([facility]) Body weight Measured 0.00 lbs Normal (applies to n on-numeric results) 0.00 lbs [facility] ([facility]) Body height 0.00 in Normal (applies to non-numeric resu lts) 0.00 in [facility] ([facility]) Body temperature 98.8 [degF] 98.8 [degF] MEDENT ([facility]) Oxygen saturation in Arterial blood by Pulse oximetry 98 % 98 % MEDENT ([facility], [facility]) Respiratory rate 18 /min 18 /min MEDENT ( [facility], [facility]) Heart rate 82 /min 82 /min MEDENT ([facility], [facility]) Diastolic blood pressure 76 mm[Hg] 76 mm[Hg] MEDENT ([facility], [facility]) Systolic blood pressure 143 mm[Hg] 143 mm[Hg] M EDENT ([facility], [facility]) Body mass index (BMI) [Ratio] 55.7 kg/m2 55.7 k g/m2 MEDENT ([facility], [facility]) Body height 61 [in_i] 61 [in_i] MEDENT ([facility], [facility]) 5'1" Body weight 295.00 [lb_av] 295.00 [lb_av] MEDEN T ([facility], [facility]) Body mass index (BMI) [Ratio] 55.5 kg/m2 55.5 k g/m2 MEDENT ([facility], [facility]) Body height 61 [in_i] 61 [in_i] MEDENT ([facility]) 5'1" Body weight 294.00 [lb_av] 294.00 [lb_av] MEDEN T ([facility], [facility]) Body temperature 99.2 [degF] 99.2 [degF] MEDENT ([facility], [facility]) Oxygen saturation in Arterial blood by Pulse oximetry 98 % 98 % MEDENT ([facility]) Respiratory rate 17 /min 17 /min MEDENT ( [facility], [facility]) Heart rate 85 /min 85 /min MEDENT ([facility]) Diastolic blood pressure 79 mm[Hg] 79 mm[Hg] MEDENT ([facility], [facility]) Systolic blood pressure 115 mm[Hg] 115 mm[Hg] M EDENT ([facility], [facility]) Diastolic blood pressure 71 mm[Hg] 71 mm[Hg] eCW1 ([facility]) Systolic blood pressure 145 mm[Hg] 145 mm[Hg] e CW1 ([facility]) Body temperature 98.2 [degF] 98.2 [degF] eCW1 ( [facility]) Respiratory rate 18 /min 18 /min eCW1 ([facility]) Heart rate 95 /min 95 /min eCW1 ([facility]) Body mass index (BMI) [Ratio] 57.08 kg/m2 57.08 kg/m2 eCW1 ([facility]) Body height 60.5 [in_us] 60.5 [in_us] eCW1 ([facility]) Body weight Measured 297.2 [lb_av] 297.2 [lb_av ] eCW1 ([facility]) Diastolic blood pressure 82 mm[Hg] 82 mm[Hg] eCW1 ([facility]) Systolic blood pressure 145 mm[Hg] 145 mm[Hg] e CW1 ([facility]) Body temperature 98.7 [degF] 98.7 [degF] eCW1 ( [facility]) Respiratory rate 18 /min 18 /min eCW1 ([facility]) Heart rate 111 /min 111 /min eCW1 ([facility]) Body mass index (BMI) [Ratio] 56.47 kg/m2 56.47 kg/m2 eCW1 ([facility]) Body height 60.5 [in_us] 60.5 [in_us] eCW1 ([facility]) Body weight Measured 294 [lb_av] 294 [lb_av] eC W1 ([facility]) Diastolic blood pressure 83 mm[Hg] 83 mm[Hg] eCW1 ([facility]) Systolic blood pressure 158 mm[Hg] 158 mm[Hg] e CW1 ([facility]) Body temperature 95.6 [degF] 95.6 [degF] eCW1 ( [facility]) Respiratory rate 18 /min 18 /min eCW1 ([facility]) Heart rate 117 /min 117 /min eCW1 ([facility]) Body mass index (BMI) [Ratio] 56.16 kg/m2 56.16 kg/m2 eCW1 ([facility]) Body height 60.5 [in_us] 60.5 [in_us] eCW1 ([facility]) Body weight Measured 292.4 [lb_av] 292.4 [lb_av ] eCW1 ([facility]) Diastolic blood pressure 0 mm[Hg] Normal (applies to non-numeric results) 0 mm[Hg] [facility] ([facility]) Systolic blood pressure 0 mm[Hg] Normal (applies t o non-numeric results) 0 mm[Hg] [facility] ([facility]) Body mass index (BMI) [Ratio] 0.00 kg/m2 No rmal (applies to non-numeric results) 0.00 kg/m2 [facility] ([facility]) Body weight Measured 0.00 lbs Normal (applies to n on-numeric results) 0.00 lbs [facility] ([facility]) Body height 0.00 in Normal (applies to non-numeric resu lts) 0.00 in [facility]) Diastolic blood pressure 92 mm[Hg] 92 mm[Hg] eCW1 ([facility]) Systolic blood pressure 161 mm[Hg] 161 mm[Hg] e CW1 ([facility]) Body temperature 96.0 [degF] 96.0 [degF] eCW1 ( [facility]) Respiratory rate 18 /min 18 /min eCW1 ([facility]) Heart rate 76 /min 76 /min eCW1 ([facility]) Body mass index (BMI) [Ratio] 53.01 kg/m2 53.01 kg/m2 eCW1 ([facility]) Body height 60.5 [in_us] 60.5 [in_us] eCW1 ([facility]) Body weight Measured 276 [lb_av] 276 [lb_av] eC W1 ([facility]) Diastolic blood pressure 90 mm[Hg] 90 mm[Hg] [place] ([facility]) Systolic blood pressure 134 mm[Hg] 134 mm[Hg] [facility] ([facility]) Oxygen saturation in Arterial blood by Pulse oximetry 98 % 98 % [place] ([facility]) Body surface area Derived from formula 2.19 m2 2.19 m2 [place] ([facility]) Body mass index (BMI) [Ratio] 53.3 kg/m2 53.3 k g/m2 [place] ([facility]) Body weight 282 [lb_av] 282 [lb_av] [place] ([facility]) Body height 61 [in_i] 61 [in_i] [place] ([facility]) Body temperature 98.7 [degF] 98.7 [degF] [place] [facility] ([facility]) Respiratory rate 24 /min 24 /min [place] ([facility]) Heart rate 112 /min 112 /min [place] ([facility]) Body mass index (BMI) [Ratio] 54.6 kg/m2 54.6 k g/m2 MEDENT ([facility]) Body height 61 [in_i] 61 [in_i] MEDENT ([facility]) 5'1" Body weight 289.00 [lb_av] 289.00 [lb_av] MEDEN T ([facility], [facility]) Body temperature 99.3 [degF] 99.3 [degF] MEDENT ([facility], [facility]) Oxygen saturation in Arterial blood by Pulse oximetry 96 % 96 % MEDENT ([facility], [facility]) Respiratory rate 12 /min 12 /min MEDENT ( [facility], [facility]) Heart rate 98 /min 98 /min MEDENT ([facility]) Diastolic blood pressure 78 mm[Hg] 78 mm[Hg] MEDENT ([facility], [facility]) Systolic blood pressure 117 mm[Hg] 117 mm[Hg] M EDENT ([facility], [facility]) Body mass index (BMI) [Ratio] 55.51 kg/m2 55.51 kg/m2 eCW1 ([facility]) Body height 60.5 [in_us] 60.5 [in_us] eCW1 ([facility]) Body weight Measured 289 [lb_av] 289 [lb_av] eC W1 ([facility]) Body mass index (BMI) [Ratio] 53.6 kg/m2 53.6 k g/m2 MEDENT ([facility] Body weight 288.50 [lb_av] 288.50 [lb_av] MEDEN T ([facility] Body height 61.5 [in_i] 61.5 [in_i] MEDENT ([facility] 5'1.50" Oxygen saturation in Arterial blood by Pulse oximetry 98 % 98 % MEDENT ([facility] Heart rate 87 /min 87 /min MEDENT ([facility] Diastolic blood pressure 78 mm[Hg] 78 mm[Hg] MEDENT ([facility] Systolic blood pressure 116 mm[Hg] 116 mm[Hg] M EDENT ([facility] Diastolic blood pressure 81 mm[Hg] 81 mm[Hg] eCW1 ([facility]) Systolic blood pressure 135 mm[Hg] 135 mm[Hg] e CW1 ([facility]) Body temperature 98.1 [degF] 98.1 [degF] eCW1 ( [facility]) Respiratory rate 18 /min 18 /min eCW1 ([facility]) Heart rate 81 /min 81 /min eCW1 ([facility]) Body mass index (BMI) [Ratio] 55.51 kg/m2 55.51 kg/m2 eCW1 ([facility]) Body height 60.5 [in_us] 60.5 [in_us] eCW1 ([facility]) Body weight Measured 289.0 [lb_av] 289.0 [lb_av ] eCW1 ([facility]) Diastolic blood pressure 60 mm[Hg] 60 mm[Hg] [place] ([facility]) Systolic blood pressure 110 mm[Hg] 110 mm[Hg] [facility] ([facility]) Inhaled oxygen concentration 21 % 21 % [place] ([facility]) Inhaled oxygen flow rate 0 L/min 0 L/min [place] ([facility]) Oxygen saturation in Arterial blood by Pulse oximetry 97 % 97 % [place] ([facility]) Body surface area Derived from formula 2.21 m2 2.21 m2 [place] ([facility]) Body mass index (BMI) [Ratio] 54.6 kg/m2 54.6 k g/m2 [place] ([facility]) Body weight 289 [lb_av] 289 [lb_av] [place] ([facility]) Body height 61 [in_i] 61 [in_i] [place] ([facility]) Respiratory rate 22 /min 22 /min [place] ([facility]) Heart rate 75 /min 75 /min [place] ([facility]) Diastolic blood pressure 76 mm[Hg] 76 mm[Hg] eCW1 ([facility]) Systolic blood pressure 131 mm[Hg] 131 mm[Hg] e CW1 ([facility]) Body temperature 97.2 [degF] 97.2 [degF] eCW1 ( [facility]) Respiratory rate 18 /min 18 /min eCW1 ([facility]) Heart rate 92 /min 92 /min eCW1 ([facility]) Body mass index (BMI) [Ratio] 55.66 kg/m2 55.66 kg/m2 eCW1 ([facility]) Body height 60.5 [in_us] 60.5 [in_us] eCW1 ([facility]) Body weight Measured 289.8 [lb_av] 289.8 [lb_av ] eCW1 ([facility]) Diastolic blood pressure 84 mm[Hg] 84 mm[Hg] eCW1 ([facility]) Systolic blood pressure 141 mm[Hg] 141 mm[Hg] e CW1 ([facility]) Body temperature 97.5 [degF] 97.5 [degF] eCW1 ( [facility]) Respiratory rate 18 /min 18 /min eCW1 ([facility]) Heart rate 90 /min 90 /min eCW1 ([facility]) Body mass index (BMI) [Ratio] 55.43 kg/m2 55.43 kg/m2 eCW1 ([facility]) Body height 60.5 [in_us] 60.5 [in_us] eCW1 ([facility]) Body weight Measured 288.6 [lb_av] 288.6 [lb_av ] eCW1 ([facility]) Diastolic blood pressure 0 mm[Hg] Normal (applies to non-numeric results) 0 mm[Hg] [facility] ([facility]) Systolic blood pressure 0 mm[Hg] Normal (applies t o non-numeric results) 0 mm[Hg] [facility] ([facility]) Body mass index (BMI) [Ratio] 0.00 kg/m2 No rmal (applies to non-numeric results) 0.00 kg/m2 [facility] ([facility]) Body weight Measured 0.00 lbs Normal (applies to n on-numeric results) 0.00 lbs [facility] ([facility]) Body height 0.00 in Normal (applies to non-numeric resu lts) 0.00 in [facility] ([facility]) Diastolic blood pressure 78 mm[Hg] 78 mm[Hg] [place] ([facility]) Systolic blood pressure 126 mm[Hg] 126 mm[Hg] [facility] ([facility]) Inhaled oxygen concentration 21 % 21 % [place] ([facility] Inhaled oxygen flow rate 0 L/min 0 L/min [place] ([facility]) Oxygen saturation in Arterial blood by Pulse oximetry 99 % 99 % [place] ([facility]) Body surface area Derived from formula 2.21 m2 2.21 m2 [place] ([facility]) Body mass index (BMI) [Ratio] 54.6 kg/m2 54.6 k g/m2 [place] ([facility]) Body weight 289 [lb_av] 289 [lb_av] [place] ([facility]) Body height 61 [in_i] 61 [in_i] [place] ([facility]) Body temperature 97.8 [degF] 97.8 [degF] [place] ([facility]) Respiratory rate 24 /min 24 /min [place] ([facility]) Heart rate 96 /min 96 /min [place] [facility] Diastolic blood pressure 66 mm[Hg] 66 mm[Hg] eCW1 ([facility]) Systolic blood pressure 112 mm[Hg] 112 mm[Hg] e CW1 ([facility]) Body temperature 96.2 [degF] 96.2 [degF] eCW1 ( [facility]) Respiratory rate 18 /min 18 /min eCW1 ([facility]) Heart rate 94 /min 94 /min eCW1 ([facility] Body mass index (BMI) [Ratio] 57.27 kg/m2 57.27 kg/m2 eCW1 ([facility]) Body height 60.5 [in_us] 60.5 [in_us] eCW1 ([facility]) Body weight Measured 298.2 [lb_av] 298.2 [lb_av ] eCW1 ([facility]) Body mass index (BMI) [Ratio] 56.47 kg/m2 56.47 kg/m2 eCW1 ([facility]) Body height 60.5 [in_us] 60.5 [in_us] eCW1 ([facility]) Body weight Measured 294 [lb_av] 294 [lb_av] eC W1 ([facility]) Diastolic blood pressure 68 mm[Hg] 68 mm[Hg] eCW1 ([facility]) Systolic blood pressure 122 mm[Hg] 122 mm[Hg] e CW1 ([facility]) Body temperature 98.4 [degF] 98.4 [degF] eCW1 ( [facility]) Respiratory rate 18 /min 18 /min eCW1 ([facility]) Heart rate 66 /min 66 /min eCW1 ([facility]) Body mass index (BMI) [Ratio] 56.51 kg/m2 56.51 kg/m2 eCW1 ([facility]) Body height 60.5 [in_us] 60.5 [in_us] eCW1 ([facility]) Body weight Measured 294.2 [lb_av] 294.2 [lb_av ] eCW1 ([facility]) Diastolic blood pressure 0 mm[Hg] Normal (applies to non-numeric results) 0 mm[Hg] [place] ([facility]) Systolic blood pressure 0 mm[Hg] Normal (applies t o non-numeric results) 0 mm[Hg] [place] ([facility]) Body mass index (BMI) [Ratio] 0.00 kg/m2 No rmal (applies to non-numeric results) 0.00 kg/m2 [place] ([facility]) Body weight Measured 292.00 lbs Normal (applies to n on-numeric results) 292.00 lbs [place] ([facility]) Body height 0.00 in Normal (applies to non-numeric resu lts) 0.00 in [facility] ([facility]) Patient Treatment Plan of Care Planned Activity Planned Date Details Description Data Source (s) Ketorolac Tromethamine 10 MG Oral Tablet 03/19/2020 12:00:00 AM EST eCW1 ([facility]) Ketorolac Tromethamine 10 MG Oral Tablet 03/19/2020 12:00:00 AM EST eCW1 ([facility]) Ketorolac Tromethamine 10 MG Oral Tablet 03/19/2020 12:00:00 AM EST eCW1 ([facility]) Acetaminophen 300 MG / Codeine Phosphate 60 MG Oral Ta blet 01/17/2020 12:00:00 AM EDT eCW1 ([facility]) Acetaminophen 300 MG / Codeine Phosphate 60 MG Oral Ta blet 01/17/2020 12:00:00 AM EDT eCW1 ([facility]) Acetaminophen 300 MG / Codeine Phosphate 60 MG Oral Ta blet 01/17/2020 12:00:00 AM EDT eCW1 ([facility]) Furosemide 40 MG Oral Tablet [Lasix] 01/09/2020 12:00:00 AM EDT [place] ([facility]) Losartan Potassium 25 MG Oral Tablet 01/09/2020 12:00:00 AM EDT [place] ([facility]) 200 ACTUAT Albuterol 0.09 MG/ACTUAT Metered Dose Inhal er [Ventolin] 01/09/2020 12:00:00 AM EDT [place] ([facility]) montelukast 10 MG Oral Tablet [Singulair] 01/09/2020 12:00:00 AM ED T [place] ([facility]) Spironolactone 25 MG Oral Tablet 01/09/2020 12:00:00 AM EDT [place] ([facility]) Sumatriptan 50 MG Oral Tablet [Imitrex] 01/09/2020 12:00:00 AM EDT [place] ([facility]) cetirizine hydrochloride 10 MG Oral Tablet 01/09/2020 12:00:00 AM E DT [place] ([facility]) Fluticasone Propionate 50 MCG/ACT Nasal Suspension 01/09/2020 12 :00:00 AM EDT [place] ([facility]) Docusate Sodium 100 MG Oral Capsule [Dulcolax Stool So ftener] 01/09/2020 12:00:00 AM EDT [place] ([facility]) Metformin hydrochloride 1000 MG Oral Tablet 01/09/2020 12:00:00 AM EDT [place] ([facility]) Lancets Ultra Fine Miscellaneous 01/09/2020 12:00:00 AM EDT [place] ([facility]) Nystatin 100 UNT/MG Topical Powder 01/09/2020 12:00:00 AM EDT [place] ([facility]) OneTouch Ultra In Vitro Strip 01/09/2020 12:00:00 AM EDT [place] ([facility]) OneTouch Delica Lancets 33G Miscellaneous 01/09/2020 12:00:00 AM ED T [place] ([facility]) NITROFURANTOIN, MACROCRYSTALS 50 MG Oral Capsule 10/25/2019 12:00:0 0 AM EDT [place] ([facility]) Ampicillin 500 MG Oral Capsule 10/16/2019 12:00:00 AM EDT [place] ([facility]) OneTouch Delica Lancets 33G Miscellaneous 10/10/2019 12:00:00 AM ED T [place] ([facility]) Furosemide 40 MG Oral Tablet [Lasix] 10/10/2019 12:00:00 AM EDT [place] ([facility]) Metformin hydrochloride 1000 MG Oral Tablet 10/10/2019 12:00:00 AM EDT [place] ([facility]) Losartan Potassium 25 MG Oral Tablet 10/10/2019 12:00:00 AM EDT [place] ([facility]) Sumatriptan 50 MG Oral Tablet [Imitrex] 10/10/2019 12:00:00 AM EDT [place] ([facility]) montelukast 10 MG Oral Tablet [Singulair] 10/10/2019 12:00:00 AM ED T [place] ([facility]) Spironolactone 25 MG Oral Tablet 10/10/2019 12:00:00 AM EDT [place] ([facility]) Fluticasone Propionate 50 MCG/ACT Nasal Suspension 10/10/2019 12 :00:00 AM EDT [place] ([facility]) Docusate Sodium 100 MG Oral Capsule [Dulcolax Stool So ftener] 10/10/2019 12:00:00 AM EDT [place] ([facility]) cetirizine hydrochloride 10 MG Oral Tablet 10/10/2019 12:00:00 AM E DT [place] ([facility]) Lancets Ultra Fine Miscellaneous 10/10/2019 12:00:00 AM EDT [place] ([facility]) 200 ACTUAT Albuterol 0.09 MG/ACTUAT Metered Dose Inhal er [Ventolin] 10/03/2019 12:00:00 AM EDT [place] ([facility]) Nystatin 100 UNT/MG Topical Powder 10/03/2019 12:00:00 AM EDT [place] ([facility]) OneTouch Ultra In Vitro Strip 09/26/2019 12:00:00 AM EDT [place] ([facility]) Methocarbamol 750 MG Oral Tablet [Robaxin] 08/30/2019 12:00:00 AM E DT eCW1 ([facility]) Methocarbamol 750 MG Oral Tablet [Robaxin] 08/30/2019 12:00:00 AM E DT eCW1 ([facility]) Methocarbamol 750 MG Oral Tablet [Robaxin] 08/30/2019 12:00:00 AM E DT eCW1 ([facility]) Methocarbamol 750 MG Oral Tablet [Robaxin] 08/30/2019 12:00:00 AM E DT eCW1 ([facility]) Methocarbamol 750 MG Oral Tablet [Robaxin] 08/30/2019 12:00:00 AM E DT eCW1 ([facility]) Ketorolac Tromethamine 10 MG Oral Tablet 08/30/2019 12:00:00 AM EDT eCW1 ([facility]) tizanidine 4 MG Oral Tablet 07/31/2019 12:00:00 AM EDT eCW1 ([facility]) Cyclobenzaprine hydrochloride 10 MG Oral Tablet 07/27/2019 12:00:00 AM EDT eCW1 ([facility]) Cyclobenzaprine hydrochloride 10 MG Oral Tablet 07/27/2019 12:00:00 AM EDT eCW1 ([facility]) Ciprofloxacin 250 MG Oral Tablet [Cipro] 07/18/2019 12:00:00 AM EDT [place] ([facility]) Sumatriptan 50 MG Oral Tablet [Imitrex] 07/11/2019 12:00:00 AM EDT [place] ([facility]) Metformin hydrochloride 1000 MG Oral Tablet 07/11/2019 12:00:00 AM EDT [place] ([facility]) Lancets Ultra Fine Miscellaneous 07/11/2019 12:00:00 AM EDT [place] ([facility]) Losartan Potassium 25 MG Oral Tablet 07/11/2019 12:00:00 AM EDT [place] ([facility]) Furosemide 40 MG Oral Tablet [Lasix] 07/11/2019 12:00:00 AM EDT [place] ([facility]) Fluticasone Propionate 50 MCG/ACT Nasal Suspension 07/11/2019 12 :00:00 AM EDT [place] ([facility]) OneTouch Ultra Blue In Vitro Strip 07/11/2019 12:00:00 AM EDT [place] ([facility]) montelukast 10 MG Oral Tablet [Singulair] 07/11/2019 12:00:00 AM ED T [place] ([facility]) Nystatin 100 UNT/MG Topical Powder 07/11/2019 12:00:00 AM EDT [place] ([facility]) cetirizine hydrochloride 10 MG Oral Tablet 07/11/2019 12:00:00 AM E DT [place] ([facility]) Docusate Sodium 100 MG Oral Capsule [Dulcolax Stool So ftener] 07/11/2019 12:00:00 AM EDT [place] ([facility]) Spironolactone 25 MG Oral Tablet 07/11/2019 12:00:00 AM EDT [place] ([facility]) Evelyn Jaramillo Lancets 33G Miscellaneous 07/03/2019 12:00:00 AM ED T [place] ([facility]) 200 ACTUAT Albuterol 0.09 MG/ACTUAT Metered Dose Inhal er [Ventolin] 07/03/2019 12:00:00 AM EDT [place] ([facility]) Clonidine Hydrochloride 0.1 MG Oral Tablet 06/28/2019 12:00:00 AM E DT eCW1 ([facility]) OneTouch Ultra Blue In Vitro Strip 05/29/2019 12:00:00 AM EST [place] ([facility]) Oxycodone Hydrochloride 5 MG Oral Tablet 05/24/2019 12:00:00 AM EST eCW1 ([facility]) Morphine Sulfate 15 MG Extended Release Oral Tablet 05/24/19 12:00:00 AM EST eCW1 ([facility]) Oxycodone Hydrochloride 5 MG Oral Tablet 05/17/2019 12:00:00 AM EST eCW1 ([facility]) 200 ACTUAT Albuterol 0.09 MG/ACTUAT Metered Dose Inhal er [Ventolin] 04/10/2019 12:00:00 AM EST [place] ([facility]) Spironolactone 25 MG Oral Tablet 04/10/2019 12:00:00 AM EST [place] ([facility]) montelukast 10 MG Oral Tablet [Singulair] 04/10/2019 12:00:00 AM ES T [place] ([facility]) Nystatin 100 UNT/MG Topical Powder 04/10/2019 12:00:00 AM EST [place] ([facility]) OneTouch Ultra Blue In Vitro Strip 04/10/2019 12:00:00 AM EST [place] ([facility]) Lancets Ultra Fine Miscellaneous 04/10/2019 12:00:00 AM EST [place] ([facility]) Furosemide 40 MG Oral Tablet [Lasix] 04/10/2019 12:00:00 AM EST [place] ([facility]) Sumatriptan 50 MG Oral Tablet [Imitrex] 04/10/2019 12:00:00 AM EST [place] ([facility]) Losartan Potassium 25 MG Oral Tablet 04/10/2019 12:00:00 AM EST [place] ([facility]) Metformin hydrochloride 1000 MG Oral Tablet 04/10/2019 12:00:00 AM EST [place] ([facility]) cetirizine hydrochloride 10 MG Oral Tablet 04/10/2019 12:00:[address] [place] ([facility]) Docusate Sodium 100 MG Oral Capsule [Dulcolax Stool So ftener] 04/10/2019 12:00:00 AM EST [place] ([facility]) Fluticasone Propionate 50 MCG/ACT Nasal Suspension 04/10/2019 12 :00:00 AM EST [facility] Morphine Sulfate 15 MG Extended Release Oral Tablet 03/27/20 19 12:00:00 AM EST [facility] ([facility]) Oxycodone Hydrochloride 5 MG Oral Tablet 03/27/2019 12:00:00 AM EST [facility] ([facility]) Morphine Sulfate 15 MG Extended Release Oral Tablet 03/23/20 19 12:00:00 AM EST [facility] ([facility]) Oxycodone Hydrochloride 5 MG Oral Tablet 03/15/2019 12:00:00 AM EST [facility] ([facility]) Metformin hydrochloride 1000 MG Oral Tablet 02/06/2019 12:00:00 AM EDT [place] ([facility]) 200 ACTUAT Albuterol 0.09 MG/ACTUAT Metered Dose Inhal er [Ventolin] 02/06/2019 12:00:00 AM EDT [place] ([facility]) Losartan Potassium 25 MG Oral Tablet 02/06/2019 12:00:00 AM EDT [place] ([facility]) Nystatin 100 UNT/MG Topical Powder 02/06/2019 12:00:00 AM EDT [place] ([facility]) Sumatriptan 50 MG Oral Tablet [Imitrex] 02/06/2019 12:00:00 AM EDT [place] ([facility]) Spironolactone 25 MG Oral Tablet 02/06/2019 12:00:00 AM EDT [place] ([facility]) montelukast 10 MG Oral Tablet [Singulair] 02/06/2019 12:00:00 AM ED T [place] ([facility]) OneTouch Ultra Blue In Vitro Strip 02/06/2019 12:00:00 AM EDT [place] ([facility]) OneTouch Delica Lancets Fine Miscellaneous 02/06/2019 12:00:00 AM E DT [place] ([facility]) cetirizine hydrochloride 10 MG Oral Tablet 02/06/2019 12:00:00 AM E DT [place] ([facility]) Fluticasone Propionate 50 MCG/ACT Nasal Suspension 02/06/2019 12 :00:00 AM EDT [place] ([facility]) Furosemide 40 MG Oral Tablet [Lasix] 02/06/2019 12:00:00 AM EDT [place] ([facility]) Docusate Sodium 100 MG Oral Capsule [Dulcolax Stool So ftener] 02/06/2019 12:00:00 AM EDT [place] ([facility])
[2020-04-30] MEDS ORDERED: NS 1,000 ML IV ONE (16:45)
[2020-04-30] MEDS ORDERED: ONDANSETRON 4MG/2ML VIAL IV ONE (16:45)
[2020-04-30] MEDS ORDERED: PANTOPRAZOLE 40MG VIAL (C9113 PER 1) IV ONE (16:45)
--- NOTE | 2020-04-30 17:46 | REP ---
INDICATION: Abdominal Pain. COMPARISON: None. FINDINGS: Supine and upright views of the abdomen show the intestinal gas pattern to be nonspecific. There are a few gas-filled mildly dilated small bowel loops. There is no evidence of free intraperitoneal air. The organ silhouettes insofar as delineated appear unremarkable. No abdominal calcific densities are seen within the abdomen or pelvis. The accompanying single frontal view of the chest shows no free subdiaphragmatic air, cardiomegaly, infiltrates or effusions. IMPRESSION: Nonspecific intestinal gas pattern. Possible early mild ileus. <Electronically signed by Philippe Chong > 04/30/20 1996
[2020-04-30 18:07] LABS: BASO % 0.3 % (0.0-1.0); EOS # 0.3 10^3/uL (0.0-0.5); EOS % 2.1 % (0.0-3.0); HEMATOCRIT 43.6 % (36.0-47.0); HEMOGLOBIN 14.1 g/dl (12.0-15.5); LYMPH # 4.5 10^3/uL (1.5-5.0); LYMPH % 36.2 % (24.0-44.0); MEAN CORPUSCULAR HEMOGLOBIN 30.3 pg (27.0-33.0); MEAN CORPUSCULAR HGB CONC 32.3 g/dl (32.0-36.5); MEAN CORPUSCULAR VOLUME 93.6 fl (80.0-96.0); MONO # 0.8 10^3/uL (0.0-0.8); MONO % 6.6 % (0.0-5.0); NEUTROPHILS # 6.7 10^3/uL (1.5-8.5); NEUTROPHILS % 54.4 % (36.0-66.0); PLATELET COUNT, AUTOMATED 452 10^3/uL (150-450); RED BLOOD COUNT 4.66 10^6/uL (4.00-5.40); WHITE BLOOD COUNT 12.4 10^3/uL (4.0-10.0)
--- OUTSIDE RECORDS SUMMARY | 2020-04-30 18:16 | CCD ---
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 Role Phone Abdirahman Howell MD Unavailable [...] Unavailable Mil Linares MD Unavailable Unavailable Mil Linarse MD Unavailable Unavailable Mil Linares MD Unavailable [...] Unavailable BIRD, LANDY PA Unavailable Unavailable BIRD, LADNY PA Unavailable Unavailable BIRD, LANDY PA Unavailable [...] Unavailable Unavailable BIRD, LANDY PA Unavailable Unavailable Hodge, Neetu DIRECT MAIL COORDINATOR Unavailable Unavailable Hodge, Neetu DIRECT MAIL COORDINATOR Unavailable Unavailable Hodge, Neetu DIRECT MAIL COORDINATOR Unavailable Unavailable Hodge, Neetu DIRECT MAIL COORDINATOR Unavailable Unavailable Hodge, Neetu DIRECT MAIL COORDINATOR Unavailable Unavailable Hodge, Neetu DIRECT MAIL COORDINATOR Unavailable Unavailable Hodge, Neetu DIRECT MAIL COORDINATOR Unavailable Unavailable Hodge, Neetu DIRECT MAIL COORDINATOR Unavailable Unavailable Hodge, Neetu DIRECT MAIL COORDINATOR Unavailable Unavailable Hodge, Neetu DIRECT MAIL COORDINATOR Unavailable Unavailable Hodge, Neetu DIRECT MAIL COORDINATOR Unavailable Unavailable Bre Christensen MD Unavailable Unavailable [...] Bre Villegas MD Unavailable Unavailable Amparo, Bre Villgeas MD Unavailable Unavailable Amparo, Bre Villegas MD [...] Bre Villegas MD Unavailable Unavailable Amparo, Bre Vilelgas MD Unavailable Unavailable Amparo, Bre Villegas MD [...] Unavailable Unavailable Orville Iverson MD Unavailable Unavailable ZyaraOrville MD Unavailable Unavailable ZayraOrville MD Unavailable Unavailable ZayraOrville MD Unavailable Unavailable Zayra, Orville MEYERS Unavailable Unavailable Zayra, Orville MEYERS Unavailable Unavailable Zayra, Orville MEYERS Unavailable Unavailable Fareed Alcarazto Unavailable KieranFareedto Unavailable ZayraOrville ruiz MD Unavailable Unavailable ZayraOrville MD Unavailable Unavailable ZayraOrville MD Unavailable Unavailable Zayra, Orville MEYERS Unavailable Unavailable Zayra, Orvilel MEYERS Unavailable Unavailable Zayra, Orville MEYERS Unavailable [...] Unavailable Unavailable Zayra, Orville MEYERS Unavailable Unavailable Azyra, Orville MEYERS Unavailable Unavailable Zayra, Orville MEYERS [...] Zayra, Orville MEYERS Unavailable Unavailable Zayra, Orville EMYERS Unavailable Unavailable Zayra, Orville MEYERS Unavailable Unavailable [...] Glynn MD Unavailable Unavailable Steward, M Clarisa DIRECT MAIL COORDINATOR Unavailable Unavailable Steward, M Clarisa DIRECT MAIL COORDINATOR Unavailable Unavailable Steward, M Clarisa DIRECT MAIL COORDINATOR Unavailable Unavailable Steward, M Clarisa DIRECT MAIL COORDINATOR Unavailable Unavailable Steward, M Clarisa DIRECT MAIL COORDINATOR Unavailable Unavailable Steward, M Clarisa DIRECT MAIL COORDINATOR Unavailable Unavailable Steward, M Clarisa DIRECT MAIL COORDINATOR Unavailable Unavailable Steward, M Clarisa DIRECT MAIL COORDINATOR Unavailable Unavailable Steward, M Clarisa DIRECT MAIL COORDINATOR Unavailable Unavailable Steward, M Clarisa DIRECT MAIL COORDINATOR Unavailable Unavailable Steward, M Clarisa DIRECT MAIL COORDINATOR Unavailable Unavailable Steward, M Clarisa DIRECT MAIL COORDINATOR Unavailable Unavailable Steward, M Clarisa DIRECT MAIL COORDINATOR Unavailable Unavailable Steward, M Clarisa DIRECT MAIL COORDINATOR Unavailable Unavailable Steward, M Clarisa DIRECT MAIL COORDINATOR Unavailable Unavailable Steward, M Clarisa DIRECT MAIL COORDINATOR Unavailable Unavailable Steward, M Clarisa DIRECT MAIL COORDINATOR Unavailable Unavailable Steward, M Clarisa DIRECT MAIL COORDINATOR Unavailable Unavailable Steward, M Clarisa DIRECT MAIL COORDINATOR Unavailable Unavailable Steward, M Clarisa DIRECT MAIL COORDINATOR Unavailable Unavailable Steward, M Clarisa DIRECT MAIL COORDINATOR Unavailable Unavailable Steward, M Clarisa DIRECT MAIL COORDINATOR Unavailable Unavailable Steward, M Clarisa DIRECT MAIL COORDINATOR Unavailable Unavailable Steward, M Clarisa DIRECT MAIL COORDINATOR Unavailable Unavailable Steward, M Clarisa DIRECT MAIL COORDINATOR Unavailable Unavailable Steward, M Clarisa DIRECT MAIL COORDINATOR Unavailable Unavailable Steward, M Clarisa DIRECT MAIL COORDINATOR Unavailable Unavailable Steward, M Clarisa DIRECT MAIL COORDINATOR Unavailable Unavailable Steward, M Clarisa DIRECT MAIL COORDINATOR Unavailable Unavailable Steward, M Clarisa DIRECT MAIL COORDINATOR Unavailable Unavailable MACQUEEN, RADHA DIRECT MAIL COORDINATOR Unavailable Unavailable MACQUEEN, RADHA DIRECT MAIL COORDINATOR Unavailable Unavailable MACQUEEN, RADHA DIRECT MAIL COORDINATOR Unavailable Unavailable MACQUEEN, RADHA DIRECT MAIL COORDINATOR Unavailable Unavailable MACQUEEN, RADHA DIRECT MAIL COORDINATOR Unavailable Unavailable MACQUEEN, RADHA DIRECT MAIL COORDINATOR Unavailable Unavailable MACQUEEN, RADHA DIRECT MAIL COORDINATOR Unavailable Unavailable MACQUEEN, RADHA DIRECT MAIL COORDINATOR Unavailable Unavailable MACQUEEN, RADHA DIRECT MAIL COORDINATOR Unavailable Unavailable MACQUEEN, RADHA DIRECT MAIL COORDINATOR Unavailable Unavailable MACQUEEN, RADHA DIRECT MAIL COORDINATOR Unavailable Unavailable Sanders, Lashay Funmi PA Unavailable [...] (WLS) BABITA Unavailable Unavailable Parish, L Bell DIRECT MAIL COORDINATOR Unavailable Unavailable Parish, L Bell DIRECT MAIL COORDINATOR Unavailable Unavailable Parish, L Bell DIRECT MAIL COORDINATOR Unavailable Unavailable Parish, L Bell DIRECT MAIL COORDINATOR Unavailable Unavailable Parish, L Bell DIRECT MAIL COORDINATOR Unavailable Unavailable Parish, L Bell DIRECT MAIL COORDINATOR Unavailable Unavailable Parish, L Bell DIRECT MAIL COORDINATOR Unavailable Unavailable Parish, L Bell DIRECT MAIL COORDINATOR Unavailable Unavailable Parish, L Bell DIRECT MAIL COORDINATOR Unavailable Unavailable Parish, L Bell DIRECT MAIL COORDINATOR Unavailable Unavailable Parish, L Bell DIRECT MAIL COORDINATOR Unavailable Unavailable Parish, L Bell DIRECT MAIL COORDINATOR Unavailable Unavailable Parish, L Bell DIRECT MAIL COORDINATOR Unavailable Unavailable Parish, L Bell DIRECT MAIL COORDINATOR Unavailable Unavailable Parish, L Bell DIRECT MAIL COORDINATOR Unavailable Unavailable Parish, L Bell DIRECT MAIL COORDINATOR Unavailable Unavailable Parish, L Bell DIRECT MAIL COORDINATOR Unavailable Unavailable Parish, L Bell DIRECT MAIL COORDINATOR Unavailable Unavailable Parish, L Bell DIRECT MAIL COORDINATOR Unavailable Unavailable Parish, L Bell DIRECT MAIL COORDINATOR Unavailable Unavailable Parish, L Bell DIRECT MAIL COORDINATOR Unavailable Unavailable Parish, L Bell DIRECT MAIL COORDINATOR Unavailable Unavailable Re-disclosure Warning The records that [...] is protected by Article 27-F of the [facility] Public Health law. If you continue you may have access to information: Regarding HIV / AIDS; Provided by facilities licensed or operated by the [facility] Office of Mental Health; or Provided by the [facility] Office for People With Developmental Disabilities. If such information is present, then the following [facility] mandated warning applies: This information has been [...] law may result in a fine or shelter sentence or both. A general authorization for the release of medical or other information is NOT sufficient authorization for further disc losure. Allergies and Adverse Reactions Type Description Substance Reaction Status Data Source(s ) CLASS SULFA (sulfonamide) SULFA (sulfonamide) RASH [facility] NSAIDS NSAIDS NSAIDS gastric bypass Active eCW1 ([facility]) Sulfa (for allergy use only) Sulfa (for allergy use only) Steele lfa (for allergy use only) Rash Active eCW1 ([facility]) NSAIDS NSAIDS NSAIDS gastric bypass Active eCW1 ([facility]) Sulfa (for allergy use only) Sulfa (for allergy use only) Steele lfa (for allergy use only) Rash Active eCW1 ([facility]) NSAIDS NSAIDS NSAIDS gastric bypass Active eCW1 ([facility]) Sulfa (for allergy use only) Sulfa (for allergy use only) Steele lfa (for allergy use only) Rash Active eCW1 ([facility]) NSAIDS NSAIDS NSAIDS gastric bypass Active eCW1 ([facility]) Sulfa (for allergy use only) Sulfa (for allergy use only) Steele lfa (for allergy use only) Rash Active eCW1 ([facility]) NSAIDS NSAIDS NSAIDS gastric bypass Active eCW1 ([facility]) Sulfa (for allergy use only) Sulfa (for allergy use only) Steele lfa (for allergy use only) Rash Active eCW1 ([facility]) NSAIDS NSAIDS NSAIDS gastric bypass Active eCW1 ([facility]) Sulfa (for allergy use only) Sulfa (for allergy use only) Steele lfa (for allergy use only) Rash Active eCW1 ([facility]) NSAIDS NSAIDS NSAIDS gastric bypass Active eCW1 ([facility]) Sulfa (for allergy use only) Sulfa (for allergy use only) Steele lfa (for allergy use only) Rash Active eCW1 ([facility]) NSAIDS NSAIDS NSAIDS gastric bypass Active eCW1 ([facility]) Sulfa (for allergy use only) Sulfa (for allergy use only) Steele lfa (for allergy use only) Rash Active eCW1 ([facility]) NSAIDS NSAIDS NSAIDS gastric bypass Active eCW1 ([facility]) Sulfa (for allergy use only) Sulfa (for allergy use only) Steele lfa (for allergy use only) Rash Active eCW1 ([facility]) NSAIDS NSAIDS NSAIDS gastric bypass Active eCW1 ([facility]) Sulfa (for allergy use only) Sulfa (for allergy use only) Steele lfa (for allergy use only) Rash Active eCW1 ([facility]) Family History Family Member Name Family Member Gender Family Member Status Date o f Status Description Data Source(s) Unknown Unknown Problem MEDENT ([facility]) Encounters Encounter Providers Location Date Indications Data Source(s ) Extended Individual Psychotherapy - 45 min Attender: Fareed Alcaraz [facility] 04/26/2020 03:00:00 AM EST - 04/26/2020 03:00:00 AM EST [facility] ([facility]) Attender: Alvin Alcaraz 04/26/2020 12:00:00 AM EST [facility] ([facility]) Outpatient Attender: Funmi mattson 04/23/2020 02:15:00 PM EST MEDENT ([facility]) Outpatient Attender: Maninder Howell MD Main Office 04/23/2020 11:45:00 AM EST MEDENT ([facility]) Outpatient Attender: RADHA NIX NP [facility] 04/17/2020 11:30:00 AM EST - 04/17/2020 11:30:00 AM EST [facility] ([facility]) Attender: RADHA NIX NP 04/17/2020 12:00:00 AM EST [facility] ([facility]) Outpatient Attender: Nicole DEL ROSARIO Physical Therapy 12:00:00 PM EST [facility] Attender: Alvin Alcaraz 04/02/2020 12:00:00 AM EST [facility] ([facility]) Extended Individual Psychotherapy - 45 min Attender: Fareed Alcaraz [facility] 04/01/2020 02:00:00 AM EST - 04/01/2020 02:00:00 AM EST [facility] ([facility]) Outpatient Attender: Siddharth DEL ROSARIO [facility] 03/27/2020 09:40:00 AM EST MEDENT ([facility]) Outpatient [address] [facility] [phone] 03/27/2020 12:00:00 AM EST eCW1 ([facility]) Psychiatric Diagnostic Evaluation (Non-Medical) Attender: Yusuf Alcaraz [facility] 03/20/2020 12:00:00 PM EST - 03/20/2020 12:00:00 PM EST [facility] ([facility]) Attender: Alvin Alcaraz 03/20/2020 12:00:00 AM EST [facility] ([facility]) Outpatient Attender: Maninder Howell MD Main Office 03/19/2020 12:00:00 PM EST MEDENT ([facility]) Outpatient [address] [facility] [id number] 03/19/2020 12:00:00 AM EST eCW1 ([facility]) Office Visit, Est Pt., Level 4 PC [address] [place] [address] 03/13/2020 12:00:00 AM EST eCW1 ([facility]) (PN Proc 45) Pain Procedure 45 [address] [place] [address] 03/05/2020 12:00:00 AM EST eCW1 ([facility]) Unknown [address] [facility] [place] [address] 03/04/2020 12:00:00 AM EST eCW1 ([facility]) Brief Individual Psychotherapy - 30 min Attender: Danii velarde [facility] 02/28/2020 09:00:00 AM EST - 02/28/2020 09:00:00 AM EST [facility] ([facility]) Attender: Daini Christianson 02/28/2020 12:00:00 AM EST [facility] ([facility]) Outpatient Attender: AMELIA DEL ROSARIO Physical Therapy 02/27/2020 0 1:30:00 PM EST MEDENT ([facility]) Outpatient [address] [facility] [id number] 02/14/2020 12:00:00 AM EDT eCW1 ([facility]) Unknown [address] [facility] [id number] 02/13/2020 12:00:00 AM EDT eCW1 ([facility]) Outpatient [address] [facility] [id number] 01/31/2020 12:00:00 AM EDT eCW1 ([facility]) Office Visit Attender: AMELIA DEL ROSARIO Physical Therapy 2019 03:00:00 PM EDT MEDENT ([facility]) Outpatient Attender: Jamie Still/Patricia/Yg/Tanvi zimmer 01/24/2020 10:15:00 AM EDT MEDENT ([facility] Unknown [address] [facility] [address] 01/16/2020 12:00:00 AM EDT eCW1 ([facility]) Outpatient<td ID="encounterTypeDescripti onID0">EXTENDED VISIT</td><td>Nelly Christensen MD</td><td>[facility]</td><td>01/09/2020</td><td>9:43AM</td><td>10/25/2019 11:59PM</td> <td></td> Attender: Nelly Christensen MD [facility] 09:43:00 AM EDT - 10/25/2019 11:59:00 PM EDT SOFIA ([facility]) Outpatient Attender: AMELIA DEL ROSARIO Physical Therapy 12/28/2019 0 1:15:00 PM EDT MEDENT ([facility] ) Outpatient Attender: AMELIA DEL ROSARIO Physical Therapy 11/23/2019 0 9:40:00 AM EDT MEDENT ([facility] ) [facility] [place] [address] [facility] [address] 11/20/2019 12:00:00 AM EDT eCW1 ([facility]) Unknown [address] [facility] [address] 11/09/2019 12:00:00 AM EDT eCW1 ([facility]) Outpatient<td ID="encounterTypeDescripti onID1">EXTENDED VISIT</td><td>Orville Iverson MD</td><td>[facility]</td><td>10/25/2019</td><td>2:00PM</td><td>3:09PM</td><td><content ID="encounterDiagnosisID1-0">Assessment of Current Smoker</content>, <content ID="encounterDiagnosisID1-1">Diabetes Mellitus Type 2</content>, <content ID="encounterDiagnosisID1-2">Essential Hypertension</content>, <content ID="encounterDiagnosisID1-3">Pyelonephritis Acute Bacterial</content></td> Attender: Orville Iverson MD [facility] 10/25/2019 02:00:00 PM EDT - 10/25/2019 03:09:00 PM EDT Pyelonephritis Acute BacterialPyelonephr itis Acute BacterialPyelonephritis Acute BacterialDiabetes Mellitus Type 2Assessment of Current SmokerDiabetes Mellitus Type 2Assessment of Current SmokerDiabetes Mellitus Type 2Assessment of Current SmokerEssential HypertensionEssential HypertensionEssential Hypertension SOFIA ([facility]) Pyelonephritis Acute Bacterial Pyelonephritis Acute Bacterial Pyelonephritis Acute Bacterial Diabetes Mellitus Type 2 Assessment of Current Smoker Diabetes Mellitus Type 2 Assessment of Current Smoker Diabetes Mellitus Type 2 Assessment of Current Smoker Essential Hypertension Essential Hypertension Essential Hypertension TEMPMHCTelemed 30" Psychotherapy Attender: Octavio Brown [facility] 10/19/2019 04:45:00 AM EDT - 10/19/2019 04:45:00 AM EDT [facility] ([facility]) Attender: Octavio Brown 10/19/2019 12:00:00 AM EDT [facility] ([facility]) Outpatient Attender: AMELIA DEL ROSARIO Physical Therapy 10/17/2019 0 1:45:00 PM EDT MEDENT ([facility] ) Outpatient Attender: Orville Iverson MD Referrer: Orville Iverson MDConsultant: Nelly Christensen MD 10/10/2019 04:06:00 PM EDT - 10/10/2019 04:16:0 0 PM EDT [facility] Outpatient<td ID="encounterTypeDescripti onID2">EXTENDED VISIT</td><td>Orville Iverson MD</td><td>[facility],</td><td>10/10/2019</td><td>9:54AM</td><td>11:34AM</td><td><content ID="encounterDiagnosisID2-0">Assessment of Current Smoker</content>, <content ID="encounterDiagnosisID2-1">Diabetes Mellitus Type 2</content>, <content ID="encounterDiagnosisID2-2">Essential Hypertension</content>, <content ID="encounterDiagnosisID2-3">Hyperlipidemia</content>, <content ID="encounterDiagnosisID2-4">Urinary Tract Infection</content>, <content ID="encounterDiagnosisID2-5">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 Attender: RADHA NIX NP 10/05/2019 12:00:00 AM EDT [facility] ([facility]) [facility] [address] [place] [phone] 10/04/2019 12:00:00 AM EDT eCW1 ([facility]) TEMPMHCTelemed 30" Psychotherapy Attender: Octavio Brwon [facility] 10/03/2019 11:30:00 AM EDT - 10/03/2019 11:30:00 AM EDT [facility] ([facility]) Outpatient Referrer: Clarisa Steward NP 10/03/2019 06:23:00 AM EDT [facility] Attender: Octavio Brown 10/03/2019 12:00:00 AM EDT [facility] ([facility]) Outpatient Attender: LANDY prieto 10/02/2019 04:40:00 PM EDT MEDENT ([facility]) Outpatient Attender: Neetu montalvo 10/01/2019 10:35:00 AM EDT MEDENT [facility] Outpatient Attender: Glynn Wiseman MD Main office - [place] 09/28/2019 10:45:00 AM EDT MEDENT ([facility]) Outpatient<td ID="encounterTypeDescripti onID3">[Patient Encounter]</td><td>Orville Iverson MD</td><td></td><td>09/26/2019</td><td>07/11/2019 1:50PM</td><td>07/11/2019 11:59PM</td><td></td> Attender: Orville Iverson MD 0 01:50:00 PM EDT - 07/11/2019 11:59:00 PM EDT SOFIA ([facility]) [facility] [address] [place] [phone] 09/18/2019 12:00:00 AM EDT eCW1 [facility] [address] [place] [phone] 09/18/2019 12:00:00 AM EDT eCW1 ([facility]) [facility] [address] [place] [phone] 09/15/2019 12:00:00 AM EDT [facility]CW1 [facility] Outpatient Referrer: Clarisa Steward NP 09/14/2019 06:08:00 AM EDT [facility] Outpatient Attender: RADHA NIX NP [facility] 09/13/2019 09:30:00 AM EDT - 09/13/2019 09:30:00 AM EDT [facility] ([facility]) Attender: RADHA NIX NP 09/13/2019 12:00:00 AM EDT [facility] ([facility] [address] [place] [phone] 09/04/2019 12:00:00 AM EDT eCW1 ([facility]) [facility] [place] [address] [place] [phone] 09/04/2019 12:00:00 AM EDT [facility]CW[facility] [address] [place] [phone] 08/30/2019 12:00:00 AM EDT eCW1 ([facility]) [facility] [address] [place] [phone] 08/24/2019 12:00:00 AM EDT eCW1 ([facility]) [facility] [address] [place] [phone] 08/23/2019 12:00:00 AM EDT eCW1 ([facility]) Outpatient Attender: AMELIA DEL ROSARIO Physical Therapy 08/17/2019 0 9:30:00 AM EDT MEDENT ([facility]) Outpatient Referrer: Clarisa Steward NP 08/04/2019 04:54:00 AM EDT [facility] [address] [place] [phone] 07/31/2019 12:00:00 AM EDT eCW1 ([facility]) [facility] [address] [place] [phone] 07/28/2019 12:00:00 AM EDT eCW1 [facility] [address] [place] [phone] 07/27/2019 12:00:00 AM EDT eCW1 ([facility]) Outpatient<td ID="encounterTypeDescripti onID4">CLINICAL USE ONLY</td><td>Nelly Christensen MD</td><td>[facility]</td><td>07/24/2019</td><td>07/11/2019 4:16PM</td><td>07/11/2019 11:59PM</td><td></td> Attender: Nelly Christensen MD [facility] 07/24/2019 04:16:00 PM EDT - 07/11/2019 11:59:00 PM EDT SOF[facility] ([facility]) TEMPMHCTelemed 20" psychotherapy Attender: Octavio Brown [facility] 07/24/2019 01:45:00 AM EDT - 07/24/2019 01:45:00 AM EDT [facility] ([facility]) [facility] [address] [place] [address] 07/24/2019 12:00:00 AM EDT eCW1 ([facility]) Attender: Octavio Brown 07/24/2019 12:00:00 AM EDT [facility] ([facility]) TEMPMHCTelemed 30" Psychotherapy Attender: Octavio Brown [facility] 07/19/2019 11:30:00 AM EDT - 07/19/2019 11:30:00 AM EDT [facility] ([facility]) Attender: Octavio LaBdomenic 07/19/2019 12:00:00 AM EDT [facility] ([facility]) Outpatient<td ID="encounterTypeDescripti onID5">RX UPDATE</td><td>Nelly Christensen MD</td><td>[facility]</td><td>07/18/2019</td><td>07/11/2019 10:53AM</td><td>07/11/2019 11:59PM</td><td></td> Attender: Nelly Christensen MD [facility] 07/18/2019 10:53:00 AM EDT - 07/11/2019 11:59:00 PM EDT ODESSA ([facility]) Outpatient Attender: RADHA NIX NP [facility] 07/12/2019 09:00:00 AM EDT - 07/12/2019 09:00:00 AM EDT [facility] ([facility]) Attender: RADHA NIX NP 07/12/2019 12:00:00 AM EDT [facility] ([facility]) Outpatient Attender: Orville Iverson MD Referrer: Orville Iverson MDConsultant: Nelly Christensen MD 07/11/2019 03:28:00 PM EDT - 07/11/2019 03:38:0 0 PM EDT [facility] Outpatient Attender: Orville Iverson MD 07/11/2019 10:00:0 0 AM EDT 0 [facility] N10 Outpatient<td ID="encounterTypeDescripti onID6">EXTENDED VISIT</td><td>Orville Iverson MD</td><td>[facility]</td><td>07/11/2019</td><td>9:39AM</td><td>10:58AM</td><td><content ID="encounterDiagnosisID6-0">Assessment of Current Smoker</content>, <content ID="encounterDiagnosisID6-1">Diabetes Mellitus Type 2</content>, <content ID="encounterDiagnosisID6-2">Essential Hypertension</content>, <content ID="encounterDiagnosisID6-3">Hyperlipidemia</content>, <content ID="encounterDiagnosisID6-4">Skin Abscess of Left Axilla</content></td> Attender: Orville Iverson MD [facility] 07/11/2019 09:39:00 AM EDT - [...] SmokerHyperlipidemiaEssential HypertensionHyperlip idemiaEssential HypertensionHyperlipidemiaEssential HypertensionHyperlipidemiaEssential HypertensionHyperlipidemiaEssential Hypertension [place] ([facility]) Skin Abscess of Left Axilla Skin Abscess [...] Hypertension Hyperlipidemia Essential Hypertension Hyperlipidemia Essential Hypertension [facility] Pain Center [address] [place] [phone] 07/11/2019 12:00:00 AM EDT eCW1 ([facility]) [facility] Pain Center [address] [place] [phone] 07/11/2019 12:00:00 AM EDT eCW1 ([facility]) [facility] Pain Center [address] [place] [phone] 07/10/2019 12:00:00 AM EDT eCW1 ([facility]) TEMPMHCTelemed 30" Psychotherapy Attender: Octavio Brown [facility] 07/07/2019 11:30:00 AM EDT - 07/07/2019 11:30:00 AM EDT [facility] ([facility]) Attender: Octavio Brown 07/07/2019 12:00:00 AM EDT [facility] ([facility]) Outpatient Attender: Neetu montalvo 07/03/2019 01:50:00 PM EDT [facility] Outpatient<td ID="encounterTypeDescripti onID7">RX UPDATE</td><td>Orville Iverson MD</td><td>[facility]</td><td>07/03/2019</td><td>05/30/2019 9:47AM</td><td>05/30/2019 11:59PM</td><td></td> Attender: Orville Iverson MD [facility] 07/03/2019 09:47:00 AM EDT - 05/30/2019 11:59:00 PM EST SOFIA ([facility]) Outpatient Attender: Bell Lugo DIRECT MAIL COORDINATOR Main Office 07/03/2019 09:45:00 AM EDT MEDENT ([facility] [address] [phone] 07/03/2019 12:00:00 AM EDT [facility] Pain Center [address] [place] [phone] 06/28/2019 12:00:00 AM EDT [facility] [address] [phone] 06/26/2019 12:00:00 AM EDT eCW1 ([facility]) [facility] Pain Center [address] [place] [phone] 06/26/2019 12:00:00 AM EDT eCW1 [facility]) Outpatient Attender: NURY VALLES MDAdmi tter: NURY VALLES MDReferrer: NURY VALLES MD 06/19/2019 12:00:00 AM EST Elevated white blood cell count, unspecified [facility] Elevated white blood cell count, unspeci fied [address] [phone] 06/19/2019 12:00:00 AM EST [facility]CW1 [facility]) Brief Individual Psychotherapy - 30 min Attender: Octavio Myrick [facility] 06/14/2019 11:30:00 AM EST - 06/14/2019 11:30:00 AM EST [facility] ([facility]) [facility] Pain Center [address] [place] [address] 06/14/2019 12:00:00 AM EST eCW1 ([facility]) Attender: Octavio LaBarge 06/14/2019 12:00:00 AM EST [facility] ([facility]) [facility] [address] [facility], [facility] [address] 06/13/2019 12:00:00 AM EST eCW1 ([facility]) [facility] [address] [facility], [facility] [address] 06/05/2019 12:00:00 AM EST eCW1 ([facility]) Outpatient Attender: Orville Iverson MD Referrer: Orville Iverson MDConsultant: Nelly Christensen MD 05/30/2019 08:20:00 PM EST - 05/30/2019 08:30:0 0 PM EST [facility] Patient discharged. Outpatient Attender: Orville Iverson MD 05/30/2019 04:45:0 0 PM EST 0 [facility] N1 Outpatient<td ID="encounterTypeDescripti onID8">EMERGENCY ROOM FOLLOW- UP</td><td>Orville Iverson MD</td><td>[facility]</td><td>05/30/2019</td><td>3:50PM</td><td>4:47PM</td><td><content ID="encounterDiagnosisID8-0">Diabetes Mellitus Type 2</content>, <content ID="encounterDiagnosisID8-1">Essential Hypertension</content>, <content ID="encounterDiagnosisID8-2">Hyperlipidemia</content>, <content ID="encounterDiagnosisID8-3">Urinary Tract Infection</content>, <content ID="encounterDiagnosisID8-4">Assessment of Current Smoker</content>, <content ID="encounterDiagnosisID8-5">Diabetes Mellitus Type 2</content>, <content ID="encounterDiagnosisID8-6">Essential Hypertension</content>, <content ID="encounterDiagnosisID8-7">Pyelonephritis Acute Bacterial</content></td> Attender: Orville Iverson MD [facility], 05/30/2019 03:50:00 PM EST - 05/30/2019 04:47:00 [...] HypertensionEssential HypertensionHyperlipidemiaEssential HypertensionEssential HypertensionHyperlipidemiaEssential HypertensionEssential HypertensionHyperlipidemiaEssential Hypertension [place] ([facility]) Pyelonephritis Acute Bacterial Pyelonephritis Acute Bacterial Pyelonephritis [...] Essential Hypertension Outpatient<td ID="encounterTypeDescripti onID9">RX UPDATE</td><td>Orville Iverson MD</td><td>[facility],</td><td>05/29/2019</td><td>04/10/2019 12:00PM</td><td>04/10/2019 11:59PM</td><td></td> Attender: Orville Iverson MD [facility], 05/29/2019 12:00:00 PM EST - 04/10/2019 11:59:00 PM EST SOFIA ([facility]) Outpatient Referrer: Clarisa Steward NP 05/25/2019 09:26:00 PM EST [facility] [address] 05/24/2019 12:00:00 AM EST eCW1 ([facility]) [address] [phone] 05/24/2019 12:00:00 AM EST [facility] Pain [address] [address] 05/24/2019 12:00:00 AM EST eCW1 ([facility] [address] [address] 05/24/2019 12:00:00 AM EST eCW1 [facility] Outpatient Referrer: Clarisa Steward NP 05/19/2019 09:27:00 AM EST [facility] Brief Individual Psychotherapy - 30 min Attender: Octavio sheth [facility] 05/17/2019 10:30:00 AM EST - 05/17/2019 10:30:00 AM EST [facility] ([facility]) [facility] Pain Center [address] [place] [phone] 05/17/2019 12:00:00 AM EST eCW1 ([facility]) Attender: Octavio LaBarge 05/17/2019 12:00:00 AM EST [facility] ([facility]) [facility] [address] [facility], [facility] [address] 05/17/2019 12:00:00 AM EST eCW1 ([facility]) Outpatient Referrer: Clarisa Steward NP 05/15/2019 01:31:00 PM EST [facility] Pain Center [address] [place] [address] 05/10/2019 12:00:00 AM EST eCW1 ([facility]) Outpatient Attender: AMELIA DEL ROSARIO Physical Therapy 05/02/2019 0 7:30:00 AM EST MEDENT ([facility]) Brief Individual Psychotherapy - 30 min Attender: [facility] 05/02/2019 02:15:00 AM EST - 05/02/2019 02:15:00 AM EST [facility] ([facility]) Attender: [facility] 05/02/2019 12:00:00 AM EST [facility] ([facility]) Outpatient Attender: ADEEL PONCE [facility] Office 04/19 01:00:00 PM EST MEDENT ([facility] Brief Individual Psychotherapy - 30 min Attender: Octavio [facility] 04/17/2019 03:15:00 AM EST - 04/17/2019 03:15:00 AM EST [facility] ([facility]) [facility] 04/17/2019 12:00:00 AM EST [facility] ([facility]) Outpatient Attender: RADHA NIX NP [facility] 04/13/2019 09:00:00 AM EST - 04/13/2019 09:00:00 AM EST [facility] ([facility]) Attender: RADHA NIX NP 04/13/2019 12:00:00 AM EST [facility] ([facility]) Outpatient<td ID="encounterTypeDescripti onID10">EXTENDED VISIT</td><td>Orville Iverson MD</td><td>[facility]</td><td>04/10/2019</td><td>10:45AM</td><td>11:25AM</td><td><content ID="[id number]">Diabetes Mellitus Type 2</content>, <content ID="[id number]">Essential Hypertension</content>, <content ID="[id number]">Hyperlipidemia</content></td> Attender: Orville Iverson MD [facility] 04/10/2019 10:45:00 AM EST - 04/10/2019 11:25:00 AM EST Diabetes Mellitus Type 2Diabetes Mellitu s Type 2Diabetes Mellitus Type 2Diabetes Mellitus Type 2Diabetes Mellitus Type 2Diabetes Mellitus Type 2Diabetes Mellitus Type 2Diabetes Mellitus Type 2HyperlipidemiaEssential HypertensionHyperlipidemiaEssential HypertensionHyperlipidemiaEssential HypertensionHyperlipidemiaEssential HypertensionHyperlipidemiaEssential HypertensionHyperlipidemiaEssential HypertensionHyperlipidemiaEssential HypertensionHyperlipidemiaEssential Hypertension [place] ([facility]) Diabetes Mellitus Type 2 Diabetes Mellitus Type [...] Psychotherapy - 30 min Attender: Octavio sheth [facility] 04/05/2019 09:45:00 AM EST - 04/05/2019 09:45:00 AM EST [facility] Attender: Octavio Brown 04/05/2019 12:00:00 AM EST [facility] ([facility]) [facility] [address] [place] [phone] 03/27/2019 12:00:00 AM EST eCW1 ([facility]) Brief Individual Psychotherapy - 30 min Attender: Octavio sheth [facility] 03/22/2019 09:45:00 AM EST - 03/22/2019 09:45:00 AM EST [facility] ([facility]) [facility] Pain Center [address] [place] [phone] 03/22/2019 12:00:00 AM EST eCW1 ([facility]) Attender: Octavio LaBarge 03/22/2019 12:00:00 AM EST [facility] ([facility]) Outpatient Attender: BABITA DEL ROSARIO 03/18/2019 03:56 :44 PM EST [facility] Outpatient Attender: BABITA DEL ROSARIO 03/15/2019 08:54 :40 PM EST [facility] Outpatient Attender: BABITA DEL ROSARIO 03/15/2019 08:46 :33 PM EST [facility] Outpatient Attender: BABITA DEL ROSARIO 03/15/2019 08:40 :02 PM EST [facility] Outpatient Attender: BABITA DEL ROSARIO 03/15/2019 08:16 :52 PM EST [facility] Outpatient Attender: BABITA DEL ROSARIO 03/15/2019 08:16 :52 PM EST [facility] Outpatient Attender: BABITA DEL ROSARIO 03/15/2019 08:16 :52 PM EST [facility] Outpatient Attender: BABITA DEL ROSARIO 03/15/2019 08:16 :52 PM EST [facility] Outpatient Attender: BABITA DEL ROSARIO 03/15/2019 08:16 :52 PM EST [facility] Outpatient Attender: BABITA DEL ROSARIO 03/15/2019 08:16 :52 PM EST [facility] Outpatient Attender: BABITA DEL ROSARIO 03/15/2019 07:57 :09 PM EST [facility] Outpatient Attender: BABITA DEL ROSARIO 03/15/2019 07:55 :09 PM EST [facility] Pain Center [address] [place] [phone] 03/15/2019 12:00:00 AM EST eCW1 ([facility]) [facility] Dermatology [address] [place] [address] 03/13/2019 12:00:00 AM EST eCW1 ([facility]) [facility] [address] [facility] [address] 03/13/2019 12:00:00 AM EST eCW1 ([facility]) Outpatient Referrer: Clarisa Steward NP 03/10/2019 09:23:00 PM EST [facility] Pain Center [address] [place] [address] 03/08/2019 12:00:00 AM EST eCW1 ([facility]) Outpatient Referrer: Clarisa Steward NP 03/07/2019 08:07:00 PM EST [facility] Pain Center [address] [place] [address] 03/07/2019 12:00:00 AM EST eCW1 ([facility]) Brief Individual Psychotherapy - 30 min Attender: Octavio sheth [facility] 03/06/2019 09:00:00 AM EST - 03/06/2019 09:00:00 AM EST [facility] ([facility]) Attender: Octavio Brown 03/06/2019 12:00:00 AM EST [facility] ([facility]) Outpatient Attender: RADHA NIX NP [facility] 03/02/2019 11:00:00 AM EST - 03/02/2019 11:00:00 AM EST [facility] ([facility]) Outpatient Attender: AMELIA DEL ROSARIO Physical Therapy 03/02/2019 0 8:30:00 AM EST MEDENT ([facility]) Attender: RADHA NIX NP 03/02/2019 12:00:00 AM EST [facility] ([facility]) Functional Status Immunizations Vaccine Date Status Description Data Source(s) TB Skin test is not vaccine. 10/02/2019 05:03:00 PM EDT completed MEDENT ([facility]) Medications Medication Brand Name Start Date Product [...] 04/23/2020 12:00:00 AM EST TOPICAL active MEDENT ([facility]) 33 gauge 04/22/2020 12:00:00 [...] AM EST ORAL active MEDENT ([facility]) 0.25 mg 04/08/2020 12:00:00 AM EST tablet [...] FOOD OR MILK NEEDED SOLD: 03/19/2020 [facility] Ketorolac Tromethamine 10 MG Oral Tablet Ketorolac Trometham ine 10 MG 03/19/2020 12:00:00 AM EST active Ketorola c Tromethamine 10 MG eCW1 ([facility]) Ketorolac Tromethamine 10 MG Oral Tablet Ketorolac Trometham ine 10 MG 03/19/2020 12:00:00 AM EST active Ketorola c Tromethamine 10 MG eCW1 ([facility]) Ketorolac Tromethamine 10 MG Oral Tablet Ketorolac Trometham ine 10 MG 03/19/2020 12:00:00 AM EST active Ketorola c Tromethamine 10 MG eCW1 ([facility]) BLOOD SUGAR DIAGNOSTIC 03/15/2020 12:00:00 AM EST [...] CAPSULE BY MOUTH EVERY EVENING SOLD: 03/07/2020 [facility] buspirone hydrochloride 15 MG Oral Tablet [...] CAPSULE BY MOUTH EVERY EVENING SOLD: 04/07/2020 [facility] buspirone hydrochloride 15 MG Oral Tablet buspirone 2019 12:00:00 AM EST 15 mg by mouth completed [id number] buspirone by mouth [id number] 88 03/06/2020 06/04/2020 twice a day 30 15 mg tablet [id number] Li mckinleya SilverioQueen [id number] [facility] ([facility]) buspirone hydrochloride 15 MG Oral Tablet buspirone 2019 12:00:00 AM EST 15 mg by mouth completed [id number] buspirone by mouth C382 88 03/06/2020 06/04/2020 twice a day 30 15 mg tablet 54845 [id number] Li nda MacQueen [id number] [facility] ([facility]) buspirone hydrochloride 15 MG Oral Tablet buspirone 2019 12:00:00 AM EST 15 mg by mouth completed [id number] buspirone by mouth C382 88 03/06/2020 06/04/2020 twice a day 30 15 mg tablet 36557 [id number] Li nda MacQueen [id number] [facility] ([facility]) 30 mg 03/06/2020 12:00:00 AM EST capsule,delayed [...] MOUTH EVERY 8 HOURS NEEDED SOLD: 03/29/2020 [facility] gabapentin 800 MG [...] 12:00:00 A M EDT ORAL active MEDENT ([facility], ) 50 mg 01/25/2020 12:00:00 AM EDT [...] 01/24/2020 12:00:00 AM EDT ORAL active MEDENT ([facility], ) Niacin Flush Free 01/24/2020 12:00:00 AM EDT ORAL active MEDENT ([facility], ) 300-60 mg 01/21/2020 12:00:00 AM [...] active Acetamino phen-Codeine #4 300-60 MG eCW1 ([facility]) Acetaminophen 300 MG / Codeine Phosphate 60 MG Oral Tablet Acetaminophen-Codeine #4 300-60 MG Acetaminophen-Codeine #4 300-60 MG 01/17/2020 12:00:00 AM EDT 1.0 {tablet_as_needed} active Acetamino phen-Codeine #4 300-60 MG eCW1 ([facility]) Acetaminophen 300 MG / Codeine Phosphate 60 MG Oral Tablet Acetaminophen-Codeine #4 300-60 MG Acetaminophen-Codeine #4 300-60 MG 01/17/2020 12:00:00 AM EDT 1.0 {tablet_as_needed} active Acetamino phen-Codeine #4 300-60 MG eCW1 ([facility]) Nystatin 100 UNT/MG Topical Powder 100,000 unit/gram [...] active cetirizine hydrochloride 10 MG Oral Tablet [place] ([facility]) Sumatriptan 50 MG Oral Tablet [Imitrex] Imitrex 50 MG Oral Tablet Imitrex 50 MG Oral Tablet 01/09/2020 12:00:00 AM EDT active sumatriptan 50 MG Oral Tablet [Imitrex] [place] ([facility]) Docusate Sodium 100 MG Oral Capsule [Dul colax Stool Softener] Dulcolax Stool Softener 100 MG Oral Capsule Dulcolax Stool Softener 100 MG Oral Capsule 01/09/2020 12:00:00 AM EDT active docusate sodium 100 MG Oral Capsule [Dulcolax Stool Softener] [facility]) Fluticasone Propionate 50 MCG/ACT Nasal Suspension Flu ticasone Propionate 50 MCG/ACT Nasal Suspension 01/09/2020 12:00:00 AM EDT active fluticasone propionate 0.05 MG/ACTUAT Metered Dose Nasal [facility]) montelukast 10 MG Oral Tablet [Singulair] Singulair 10 MG Oral Tablet Singulair 10 MG Oral Tablet 01/09/2020 12:00:00 AM EDT active montelukast 10 MG Oral Tablet [Singulair] [facility]) Furosemide 40 MG Oral Tablet [Lasix] Lasix 40 MG Oral Tablet Lasix 40 MG Oral Tablet 01/09/2020 12:00:00 AM EDT active furosemide 40 MG Oral Tablet [Lasix] [facility]) Losartan Potassium 25 MG Oral Tablet Losartan Potassium 25 M G Oral Tablet 01/09/2020 12:00:00 AM EDT active losartan potassium 25 MG Oral Tablet [facility]) 200 ACTUAT Albuterol 0.09 MG/ACTUAT Mete red Dose Inhaler [Ventolin] Ventolin HFA 108 (90 Base) MCG/ACT Inhalation Aerosol Solution Ventolin HFA 108 (90 Base) MCG/ACT Inhalation Aerosol Solution 01/09/2020 12:00:00 AM EDT 18 active [id number] 200 ACTUAT albuterol 0.09 MG/ACTUAT Metered Dose Inhaler [Ventolin] [facility]) OneTouch Delica Lancets 33G Miscellaneous OneTouch Del ica Lancets 33G Miscellaneous 01/09/2020 12:00:00 AM EDT acti ve OneTouch Delica Lancets 33G [facility]) OneTouch Ultra In Vitro Strip OneTouch Ultra In Vitro Strip 01/09/2020 12:00:00 AM EDT active OneTouch Ultra GR EENWAY ([facility]) Nystatin 100 UNT/MG Topical Powder Nystatin [id number] UNI T/GM External Powder Nystatin [id number] UNIT/GM External Powder 01/09/2020 12:00:00 AM EDT active nystatin 100 UNT/MG Topical Powd er [place] ([facility]) Spironolactone 25 MG Oral Tablet Spironolactone 25 MG Oral T ablet 01/09/2020 12:00:00 AM EDT 1 active spironol actone 25 MG Oral Tablet [facility]) Metformin hydrochloride 1000 MG Oral Tablet metFORMIN HCl 1000 MG Oral Tablet metFORMIN HCl 1000 MG Oral Tablet 01/09/2020 12:00:00 AM EDT active metformin hydrochloride 1000 MG Oral Tablet [facility]) Amitriptyline Hydrochloride 25 MG Oral T ablet Amitriptyline HCl 25 MG Oral Tablet Amitriptyline HCl 25 MG Oral Tablet 01/09/2020 12:00:00 AM EDT 1 active amitriptyline hydrochloride 25 M G Oral Tablet [facility]) buspirone hydrochloride 10 MG Oral Tablet busPIRone HC l 10 MG Oral Tablet busPIRone HCl 10 MG Oral Tablet 01/09/2020 12:00:00 AM EDT active buspirone hydrochloride 10 MG Oral Tablet [facility]) 24 HR Oxybutynin chloride 10 MG Extended Release Oral Tablet [Ditropan] Ditropan XL 10 MG Oral Tablet Extended Release 24 Hour Ditropan XL 10 MG Oral Tablet Extended Release 24 Hour 01/09/2020 12:00:00 AM EDT active 24 HR oxybutynin chloride 10 MG Extended Release Oral Tablet [Ditropan] [facility]) duloxetine 60 MG Delayed Release Oral Ca psule DULoxetine HCl 60 MG Oral Capsule Delayed Release Particles DULoxetine HCl 60 MG Oral Capsule Delaye d Release Particles 01/09/2020 12:00:00 AM EDT active duloxetine 60 MG Delayed Release Oral Capsule [facility]) duloxetine 30 MG Delayed Release Oral Ca psule DULoxetine HCl 30 MG Oral Capsule Delayed Release Particles DULoxetine HCl 30 MG Oral Capsule Delaye d Release Particles 01/09/2020 12:00:00 AM EDT active duloxetine 30 MG Delayed Release Oral Capsule [place] ([facility]) pregabalin 200 MG Oral Capsule [Lyrica] Lyrica 200 MG Oral Capsule Lyrica 200 MG Oral Capsule 01/09/2020 12:00:00 AM EDT acti ve pregabalin 200 MG Oral Capsule [Lyrica] [place]DES[place] ([facility]) Lancets Ultra Fine Miscellaneous Lancets Ultra Fine Miscella neous 01/09/2020 12:00:00 AM EDT active Lancets Ultra Fine [place] ([facility]) 300-60 mg 12/22/2019 12:00:00 AM EDT tablet [...] TABLET BY MOUTH EVERY EVENING SOLD: 02/06/2020 [facility] 75 mg 12/08/2019 12:00:00 AM EDT [...] DAY SOLD: 12/09/2019 [facility] 11/06/2019 12:00:00 AM EDT misc 100 USE TO TEST 3 TIMES A DAY USE TO TEST 3 TIMES A DAY SOLD: 01/08/2020 [facility] 11/06/2019 12:00:00 AM EDT misc 100 USE [...] nitrofurantoin, macrocrystals 50 MG Oral Capsule SOFIA ([facility]) 50 mg 10/25/2019 12:00:00 AM EDT capsule [...] 12:00:00 AM EDT ORAL active MEDENT ([facility]) 300-30 mg 10/17/2019 12:00:00 AM [...] ampicil bridget 500 MG Oral Capsule SOFIA ([facility]) 25 mg 10/10/2019 12:00:00 AM EDT [...] 12:00:00 AM EDT aborted Lancets Ultra Fine ODES[place] ([facility]) montelukast 10 MG Oral Tablet [Singulair] Singulair 10 MG Oral Tablet Singulair 10 MG Oral Tablet 10/10/2019 12:00:00 AM EDT aborted montelukast 10 MG Oral Tablet [Singulair] [place] ([facility]) Furosemide 40 MG Oral Tablet [Lasix] Lasix 40 MG Oral Tablet Lasix 40 MG Oral Tablet 10/10/2019 12:00:00 AM EDT aborted furosemide 40 MG Oral Tablet [Lasix] [place] ([facility]) OneTouch Delica Lancets 33G Miscellaneous OneTouch Del ica Lancets 33G Miscellaneous 10/10/2019 12:00:00 AM EDT abor rubi OneTouch Delica Lancets 33G [place] ([facility]) 25 mg 10/10/2019 12:00:00 AM EDT tablet 30 TAKE ONE TABLET BY MOUTH EVERY DAY TAKE ONE TABLET BY MOUTH EVERY DAY SOLD: 10/17/2019 [facility] Metformin hydrochloride 1000 MG Oral Tablet metFORMIN HCl 1000 MG Oral Tablet metFORMIN HCl 1000 MG Oral Tablet 10/10/2019 12:00:00 AM EDT aborted metformin hydrochloride 1000 MG Oral Tab let [facility]) Losartan Potassium 25 MG Oral Tablet Losartan Potassium 25 M G Oral Tablet 10/10/2019 12:00:00 AM EDT aborted losartan potassium 25 MG Oral Tablet [facility]) 25 mg 10/10/2019 12:00:00 AM EDT [...] aborted spirono lactone 25 MG Oral Tablet [facility]) Sumatriptan 50 MG Oral Tablet [Imitrex] Imitrex 50 MG Oral Tablet Imitrex 50 MG Oral Tablet 10/10/2019 12:00:00 AM EDT aborte d sumatriptan 50 MG Oral Tablet [Imitrex] [facility]) Docusate Sodium 100 MG Oral Capsule [Dul colax Stool Softener] Dulcolax Stool Softener 100 MG Oral Capsule Dulcolax Stool Softener 100 MG Oral Capsule 10/10/2019 12:00:00 AM EDT aborted docusate sodium 100 MG Oral Capsule [Dulcolax Stool Softener] [facility]) 50 mcg/actuation 10/10/2019 12:00:00 AM EDT spray,suspension 16 SPRAY TWO SPRAYS IN EACH NOSTRIL EVERY DAY DIRECTED SPRAY TWO SPRAYS IN EACH NOSTRIL EVERY DAY DIRECTED SOLD: 11/14/2019 [facility] Fluticasone Propionate 50 MCG/ACT Nasal Suspension Flu ticasone Propionate 50 MCG/ACT Nasal Suspension 10/10/2019 12:00:00 AM EDT aborted fluticasone propionate 0.05 MG/ACTUAT Metered Dose Nasal [facility]) cetirizine hydrochloride 10 MG Oral Tablet Cetirizine HCl 10 MG Oral Tablet Cetirizine HCl 10 MG Oral Tablet 10/10/2019 12:00:00 AM EDT aborted cetirizine hydrochloride 10 MG Oral Tablet [facility]) Losartan Potassium 25 MG Oral Tablet LOSARTAN POTASSIUM 12:00:00 AM EDT tablet 30 TAKE ONE TABLET BY MOUTH AKBAR RY DAY TAKE ONE TABLET BY MOUTH EVERY DAY SOLD: 12/13/2019 [facility] 100 mg 10/10/2019 12:00:00 AM [...] s Nystatin 100 UNT/MG Topical Powder Nystatin 823660 UNI T/GM External Powder Nystatin 451705 UNIT/GM External Powder 10/03/2019 12:00:00 AM EDT aborted nystatin 100 UNT/MG Topical Powd er ODESSA ([facility]) 200 ACTUAT Albuterol 0.09 MG/ACTUAT Mete red Dose Inhaler [Ventolin] Ventolin HFA 108 (90 Base) MCG/ACT Inhalation Aerosol Solution Ventolin HFA 108 (90 Base) MCG/ACT Inhalation Aerosol Solution 10/03/2019 12:00:00 AM EDT 18 aborted [id number] 200 ACTUAT albuterol 0.09 MG/ACTUAT Metered Dose Inhaler [Ventolin] ODESSA ([facility]) PPD- TB Intradermal Test 10/02/2019 12:00:00 AM EDT completed MEDENT ([facility], [facility]) Medication administered onsite 100 mg 10/01/2019 12:00:00 [...] Prednisone 10/01/2019 12:00:00 AM EDT active MEDENT ([facility], [facility]) NITROFURANTOIN, MACROCRYSTALS 25 MG / Ni trofurantoin, Monohydrate 75 MG Oral Capsule Nitrofurantoin Monohyd Macro 10/01/2019 12:00:00 AM EDT ORAL active MEDENT ([facility], [facility]) 0.25 mg 09/29/2019 12:00:00 AM EDT tablet [...] 12:00:00 AM EDT ORAL active MEDENT ( [facility]) OneTouch Ultra In Vitro Strip OneTouch Ultra In Vitro Strip 09/26/2019 12:00:00 AM EDT aborted [facility] 200 mg 09/19/2019 12:00:00 AM EDT capsule [...] active Ketorol ac Tromethamine 10 MG eCW1 ([facility]) Methocarbamol 750 MG Oral Tablet [Robaxin] Robaxin-750 750 MG Robaxin-750 750 MG 08/30/2019 12:00:00 AM EDT 1.0 {tablet} active Robaxin-750 750 MG eCW1 ([facility]) 750 mg 08/30/2019 12:00:00 AM EDT tablet 90 TAKE ONE TABLET BY MOUTH EVERY 8 HOURS NEEDED TAKE ONE TABLET BY MOUTH EVERY 8 HOURS NEEDED SOLD: 08/30/2019 [facility] Ketorolac Tromethamine 10 MG Oral Tablet Ketorolac Trometham ine 10 MG 08/30/2019 12:00:00 AM EDT active Ketorol ac Tromethamine 10 MG eCW1 ([facility]) Ketorolac Tromethamine 10 MG Oral Tablet Ketorolac Trometham ine 10 MG 08/30/2019 12:00:00 AM EDT active Ketorol ac Tromethamine 10 MG eCW1 ([facility]) Ketorolac Tromethamine 10 MG Oral Tablet Ketorolac Trometham ine 10 MG 08/30/2019 12:00:00 AM EDT suspended Keto rolac Tromethamine 10 MG eCW1 ([facility]) Methocarbamol 750 MG Oral Tablet [Robaxin] Robaxin-750 750 MG Robaxin-750 750 MG 08/30/2019 12:00:00 AM EDT 1.0 {tablet} active Robaxin-750 750 MG eCW1 ([facility]) Ketorolac Tromethamine 10 MG Oral Tablet Ketorolac Trometham ine 10 MG 08/30/2019 12:00:00 AM EDT suspended Keto rolac Tromethamine 10 MG eCW1 ([facility]) Ketorolac Tromethamine 10 MG Oral Tablet Ketorolac Trometham ine 10 MG 08/30/2019 12:00:00 AM EDT active Ketorol ac Tromethamine 10 MG eCW1 ([facility]) Ketorolac Tromethamine 10 MG Oral Tablet Ketorolac Trometham ine 10 MG 08/30/2019 12:00:00 AM EDT suspended 1 ta blet with food or milk as needed eCW1 ([facility]) Ketorolac Tromethamine 10 MG Oral Tablet Ketorolac Trometham ine 10 MG 08/30/2019 12:00:00 AM EDT active 1 table t with food or milk as needed eCW1 ([facility]) Methocarbamol 750 MG Oral Tablet [Robaxin] Robaxin-750 750 MG Robaxin-750 750 MG 08/30/2019 12:00:00 AM EDT 1.0 {tablet} active Robaxin-750 750 MG eCW1 ([facility]) Methocarbamol 750 MG Oral Tablet [Robaxin] Robaxin-750 750 MG Robaxin-750 750 MG 08/30/2019 12:00:00 AM EDT active 1 tablet eCW1 ([facility]) Methocarbamol 750 MG Oral Tablet [Robaxin] Robaxin-750 750 MG Robaxin-750 750 MG 08/30/2019 12:00:00 AM EDT active 1 tablet eCW1 ([facility]) Ketorolac Tromethamine 10 MG Oral Tablet Ketorolac Trometham ine 10 MG 08/30/2019 12:00:00 AM EDT suspended Keto rolac Tromethamine 10 MG eCW1 ([facility]) Methocarbamol 750 MG Oral Tablet [Robaxin] Robaxin-750 750 MG Robaxin-750 750 MG 08/30/2019 12:00:00 AM EDT active 1 tablet eCW1 ([facility]) Methocarbamol 750 MG Oral Tablet [Robaxin] Robaxin-750 750 MG Robaxin-750 750 MG 08/30/2019 12:00:00 AM EDT 1.0 {tablet} active Robaxin-750 750 MG eCW1 ([facility]) Ketorolac Tromethamine 10 MG Oral Tablet Ketorolac Trometham ine 10 MG 08/30/2019 12:00:00 AM EDT active 1 table t with food or milk as needed eCW1 ([facility]) Methocarbamol 750 MG Oral Tablet [Robaxin] Robaxin-750 750 MG Robaxin-750 750 MG 08/30/2019 12:00:00 AM EDT 1.0 {tablet} active Robaxin-750 750 MG eCW1 ([facility]) Methocarbamol 750 MG Oral Tablet [Robaxin] Robaxin-750 750 MG Robaxin-750 750 MG 08/30/2019 12:00:00 AM EDT 1.0 {tablet} active Robaxin-750 750 MG eCW1 ([facility]) Methocarbamol 750 MG Oral Tablet [Robaxin] Robaxin-750 750 MG Robaxin-750 750 MG 08/30/2019 12:00:00 AM EDT 1.0 {tablet} active Robaxin-750 750 MG eCW1 ([facility]) Methocarbamol 750 MG Oral Tablet [Robaxin] Robaxin-750 750 MG Robaxin-750 750 MG 08/30/2019 12:00:00 AM EDT 1.0 {tablet} active Robaxin-750 750 MG eCW1 ([facility]) Ketorolac Tromethamine 10 MG Oral Tablet Ketorolac Trometham ine 10 MG 08/30/2019 12:00:00 AM EDT suspended Keto rolac Tromethamine 10 MG eCW1 ([facility]) Ketorolac Tromethamine 10 MG Oral Tablet Ketorolac Trometham ine 10 MG 08/30/2019 12:00:00 AM EDT active Ketorol ac Tromethamine 10 MG eCW1 ([facility]) Methocarbamol 750 MG Oral Tablet [Robaxin] Robaxin-750 750 MG Robaxin-750 750 MG 08/30/2019 12:00:00 AM EDT 1.0 {tablet} active Robaxin-750 750 MG eCW1 ([facility]) Ketorolac Tromethamine 10 MG Oral Tablet Ketorolac Trometham ine 10 MG 08/30/2019 12:00:00 AM EDT suspended Keto rolac Tromethamine 10 MG eCW1 ([facility]) 750 mg 08/30/2019 12:00:00 AM EDT tablet [...] 1.0 {tablet} active Robaxin-750 750 MG eCW1 ([facility]) 30 mg 08/24/2019 12:00:00 AM EDT capsule,delayed [...] AM EDT active 1 tablet as needed [facility] ([facility]) 4 mg 07/31/2019 12:00:00 AM EDT tablet [...] 12:00:00 AM EDT active 1 TAB eCW1 ([facility]) Cyclobenzaprine hydrochloride 10 MG Oral Tablet Cyclob enzaprine HCl 10 MG Cyclobenzaprine HCl 10 MG 07/27/2019 12:00:00 AM EDT active 1 TAB eCW1 ([facility]) Ciprofloxacin 250 MG Oral Tablet [Cipro] Cipro 250 MG Oral Tablet Cipro 250 MG Oral Tablet 07/18/2019 12:00:00 AM EDT aborte d ciprofloxacin 250 MG Oral Tablet [Cipro] [facility]) 250 mg 07/18/2019 12:00:00 AM EDT tablet 20 TAKE TWO TABLETS BY MOUTH TWICE A DAY FOR 5 DAYS TAKE TWO TABLETS BY MOUTH TWICE A DAY FOR 5 DAYS SOLD: 07/18/2019 [facility] buspirone hydrochloride 10 MG Oral Tablet [...] aborted spirono lactone 25 MG Oral Tablet [facility]) montelukast 10 MG Oral Tablet [Singulair] Singulair 10 MG Oral Tablet Singulair 10 MG Oral Tablet 07/11/2019 12:00:00 AM EDT aborted montelukast 10 MG Oral Tablet [Singulair] ODESSA ([facility]) Fluticasone Propionate 50 MCG/ACT Nasal Suspension Flu ticasone Propionate 50 MCG/ACT Nasal Suspension 07/11/2019 12:00:00 AM EDT aborted fluticasone propionate 0.05 MG/ACTUAT Metered Dose Nasal [facility]) Nystatin 100 UNT/MG Topical Powder 100,000 [...] aborted cetirizine hydrochloride 10 MG Oral Tablet ODESSA ([facility]) Docusate Sodium 100 MG Oral Capsule [Dul colax Stool Softener] Dulcolax Stool Softener 100 MG Oral Capsule Dulcolax Stool Softener 100 MG Oral Capsule 07/11/2019 12:00:00 AM EDT aborted docusate sodium 100 MG Oral Capsule [Dulcolax Stool Softener] [facility]) 100 mg 07/11/2019 12:00:00 AM EDT capsule 90 TAKE ONE CAPSULE BY MOUTH THREE TIMES A DAY TAKE ONE CAPSULE BY MOUTH THREE TIMES A DAY SOLD: 09/10/2019 [facility] Lancets Ultra Fine Miscellaneous Lancets Ultra Fine Miscella neous 07/11/2019 12:00:00 AM EDT aborted Lancets Ultra Fine [facility]) 10 mg 07/11/2019 12:00:00 AM EDT tablet 30 TAKE ONE TABLET BY MOUTH EVERY DAY TAKE ONE TABLET BY MOUTH EVERY DAY SOLD: 07/14/2019 [facility] Losartan Potassium 25 MG Oral Tablet Losartan Potassium 25 M G Oral Tablet 07/11/2019 12:00:00 AM EDT aborted losartan potassium 25 MG Oral Tablet ODESSA ([facility]) Metformin hydrochloride 1000 MG Oral Tablet metFORMIN HCl 1000 MG Oral Tablet metFORMIN HCl 1000 MG Oral Tablet 07/11/2019 12:00:00 AM EDT aborted metformin hydrochloride 1000 MG Oral Tab let [facility]) 100 mg 07/11/2019 12:00:00 AM EDT [...] sumatriptan 50 MG Oral Tablet [Imitrex] SOFIA ([facility]) OneTouch Ultra Blue In Vitro Strip OneTouch Ultra Blue In Vi tro Strip 07/11/2019 12:00:00 AM EDT aborted OneTou ch Ultra Blue ODESSA ([facility]) Nystatin 100 UNT/MG Topical Powder Nystatin 767648 UNI T/GM External Powder Nystatin 113347 UNIT/GM External Powder 07/11/2019 12:00:00 AM EDT aborted nystatin 100 UNT/MG Topical Powd er ODESSA ([facility]) Furosemide 40 MG Oral Tablet [Lasix] Lasix 40 MG Oral Tablet Lasix 40 MG Oral Tablet 07/11/2019 12:00:00 AM EDT aborted furosemide 40 MG Oral Tablet [Lasix] [facility]) 50 mcg/actuation 07/11/2019 12:00:00 AM EDT [...] Solution 07/03/2019 12:00:00 AM EDT 18 aborted [id number] 200 ACTUAT albuterol 0.09 MG/ACTUAT Metered Dose Inhaler [Ventolin] ODESSA ([facility]) OneTouch Delica Lancets 33G Miscellaneous OneTouch Del ica Lancets 33G Miscellaneous 07/03/2019 12:00:00 AM EDT abor rubi OneTouch Delica Lancets 33G ODESSA ([facility]) 33 gauge 07/03/2019 12:00:00 AM EDT misc [...] 07/03/2019 12:00:00 AM EDT ORAL completed MEDENT ([facility]) Prednisone 20 MG Oral Tablet Prednisone 07/03/2019 12:00:00 AM EDT completed MEDENT ([facility]) 90 mcg/actuation 07/03/2019 12:00:00 AM EDT [...] tablet 15 TAKE ONE TABLET BY MOUTH AKBAR RY 8 HOURS NEEDED FOR 5 DAYS TAKE ONE TABLET BY MOUTH EVERY 8 HOURS NEEDED FOR 5 DAYS SOLD: 06/29/2019 [facility] Clonidine Hydrochloride 0.1 MG Oral Tablet Clonidine H Cl 0.1 MG Clonidine HCl 0.1 MG 06/28/2019 12:00:00 AM EDT suspended 1 tablet eCW1 ([facility]) Clonidine Hydrochloride 0.1 MG Oral Tablet Clonidine H Cl 0.1 MG Clonidine HCl 0.1 MG 06/28/2019 12:00:00 AM EDT 1.0 {tablet} suspe nded Clonidine HCl 0.1 MG eCW1 ([facility]) Clonidine Hydrochloride 0.1 MG Oral Tablet Clonidine H Cl 0.1 MG Clonidine HCl 0.1 MG 06/28/2019 12:00:00 AM EDT 1.0 {tablet} suspe nded Clonidine HCl 0.1 MG eCW1 ([facility]) Clonidine Hydrochloride 0.1 MG Oral Tablet Clonidine H Cl 0.1 MG Clonidine HCl 0.1 MG 06/28/2019 12:00:00 AM EDT suspended 1 tablet eCW1 ([facility]) Clonidine Hydrochloride 0.1 MG Oral Tablet Clonidine H Cl 0.1 MG Clonidine HCl 0.1 MG 06/28/2019 12:00:00 AM EDT 1.0 {tablet} suspe nded Clonidine HCl 0.1 MG eCW1 ([facility]) Clonidine Hydrochloride 0.1 MG Oral Tablet Clonidine H Cl 0.1 MG Clonidine HCl 0.1 MG 06/28/2019 12:00:00 AM EDT 1.0 {tablet} suspe nded Clonidine HCl 0.1 MG eCW1 ([facility]) Clonidine Hydrochloride 0.1 MG Oral Tablet Clonidine H Cl 0.1 MG Clonidine HCl 0.1 MG 06/28/2019 12:00:00 AM EDT 1.0 {tablet} suspe nded Clonidine HCl 0.1 MG eCW1 ([facility]) Clonidine Hydrochloride 0.1 MG Oral Tablet Clonidine H Cl 0.1 MG Clonidine HCl 0.1 MG 06/28/2019 12:00:00 AM EDT 1.0 {tablet} suspe nded Clonidine HCl 0.1 MG eCW1 ([facility]) Clonidine Hydrochloride 0.1 MG Oral Tablet Clonidine H Cl 0.1 MG Clonidine HCl 0.1 MG 06/28/2019 12:00:00 AM EDT 1.0 {tablet} suspe nded Clonidine HCl 0.1 MG eCW1 ([facility]) Clonidine Hydrochloride 0.1 MG Oral Tablet Clonidine H Cl 0.1 MG Clonidine HCl 0.1 MG 06/28/2019 12:00:00 AM EDT 1.0 {tablet} suspe nded Clonidine HCl 0.1 MG eCW1 ([facility]) Clonidine Hydrochloride 0.1 MG Oral Tablet Clonidine H Cl 0.1 MG Clonidine HCl 0.1 MG 06/28/2019 12:00:00 AM EDT active 1 tablet eCW1 ([facility]) Clonidine Hydrochloride 0.1 MG Oral Tablet Clonidine H Cl 0.1 MG Clonidine HCl 0.1 MG 06/28/2019 12:00:00 AM EDT suspended 1 tablet eCW1 ([facility]) Clonidine Hydrochloride 0.1 MG Oral Tablet Clonidine H Cl 0.1 MG Clonidine HCl 0.1 MG 06/28/2019 12:00:00 AM EDT suspended 1 tablet eCW1 ([facility]) Clonidine Hydrochloride 0.1 MG Oral Tablet Clonidine H Cl 0.1 MG Clonidine HCl 0.1 MG 06/28/2019 12:00:00 AM EDT 1.0 {tablet} suspe nded Clonidine HCl 0.1 MG eCW1 ([facility]) Clonidine Hydrochloride 0.1 MG Oral Tablet Clonidine H Cl 0.1 MG Clonidine HCl 0.1 MG 06/28/2019 12:00:00 AM EDT active 1 tablet eCW1 ([facility]) Clonidine Hydrochloride 0.1 MG Oral Tablet Clonidine H Cl 0.1 MG Clonidine HCl 0.1 MG 06/28/2019 12:00:00 AM EDT 1.0 {tablet} activ e Clonidine HCl 0.1 MG eCW1 ([facility]) 100 mg 06/23/2019 12:00:00 AM EST capsule [...] AM EST aborted OneTou Ultra Blue SOFIA ([facility]) 40 mg 05/27/2019 12:00:00 AM EST tablet [...] SHOULD LAST FOR 30 DAYS) SOLD: 06/22/2019 [facility] 10 mg 05/25/2019 12:00:00 AM EST tablet 30 TAKE ONE TABLET BY MOUTH EVERY 8 HOURS DIRECTED NEEDED FOR PAIN (30 TABLETS SHOULD LAST FOR 30 DAYS) TAKE ONE TABLET BY MOUTH EVERY 8 HOURS DIRECTED NEEDED FOR PAIN (30 TABLETS SHOULD LAST FOR 30 DAYS) SOLD: 07/18/2019 [facility] 200 mg 05/25/2019 12:00:00 AM EST capsule 90 TAKE ONE CAPSULE BY MOUTH THREE TIMES A DAY EVERY 8 HOURS MAXIMUM DAILY DOSE = 3 CAPSULES TAKE ONE CAPSULE BY MOUTH THREE TIMES A DAY EVERY 8 HOURS MAXIMUM DAILY DOSE = 3 CAPSULES SOLD: 08/13/2019 [facility] 10 mg 05/25/2019 12:00:00 AM EST tablet 30 TAKE ONE TABLET BY MOUTH EVERY 8 HOURS DIRECTED NEEDED FOR PAIN (30 TABLETS SHOULD LAST FOR 30 DAYS) TAKE ONE TABLET BY MOUTH EVERY 8 HOURS DIRECTED NEEDED FOR PAIN (30 TABLETS SHOULD LAST FOR 30 DAYS) SOLD: 05/25/2019 [facility] Oxycodone Hydrochloride 5 MG Oral Tablet Oxycodone HCl 5 MG Oxycodone HCl 5 MG 05/24/2019 12:00:00 AM EST 1.0 {tablet_as_needed} suspended Oxycodone HCl 5 MG eCW1 ([facility]) Oxycodone Hydrochloride 5 MG Oral Tablet Oxycodone HCl 5 MG Oxycodone HCl 5 MG 05/24/2019 12:00:00 AM EST 1.0 {tablet_as_needed} suspended Oxycodone HCl 5 MG eCW1 ([facility]) Morphine Sulfate 15 MG Extended Release Oral Tablet Mo rphine Sulfate ER 15 MG Morphine Sulfate ER 15 MG 05/24/2019 12:00:00 AM EST suspended 1 tablet eCW1 ([facility]) Morphine Sulfate 15 MG Extended Release Oral Tablet Mo rphine Sulfate ER 15 MG Morphine Sulfate ER 15 MG 05/24/2019 12:00:00 AM EST 1.0 {tablet} suspended Morphine Sulfate ER 15 MG eCW1 ( [facility]) Morphine Sulfate 15 MG Extended Release Oral Tablet Mo rphine Sulfate ER 15 MG Morphine Sulfate ER 15 MG 05/24/2019 12:00:00 AM EST 1.0 {tablet} suspended Morphine Sulfate ER 15 MG eCW1 ( [facility]) Morphine Sulfate 15 MG Extended Release Oral Tablet Mo rphine Sulfate ER 15 MG Morphine Sulfate ER 15 MG 05/24/2019 12:00:00 AM EST 1.0 {tablet} suspended Morphine Sulfate ER 15 MG eCW1 ( [facility]) Oxycodone Hydrochloride 5 MG Oral Tablet Oxycodone HCl 5 MG Oxycodone HCl 5 MG 05/24/2019 12:00:00 AM EST 1.0 {tablet_as_needed} suspended Oxycodone HCl 5 MG eCW1 ([facility]) Morphine Sulfate 15 MG Extended Release Oral Tablet Mo rphine Sulfate ER 15 MG Morphine Sulfate ER 15 MG 05/24/2019 12:00:00 AM EST suspended 1 tablet eCW1 ([facility]) Oxycodone Hydrochloride 5 MG Oral Tablet Oxycodone HCl 5 MG Oxycodone HCl 5 MG 05/24/2019 12:00:00 AM EST suspended 1 tablet as needed eCW1 ([facility]) Morphine Sulfate 15 MG Extended Release Oral Tablet Mo rphine Sulfate ER 15 MG Morphine Sulfate ER 15 MG 05/24/2019 12:00:00 AM EST 1.0 {tablet} suspended Morphine Sulfate ER 15 MG eCW1 ( [facility]) Morphine Sulfate 15 MG Extended Release Oral Tablet Mo rphine Sulfate ER 15 MG Morphine Sulfate ER 15 MG 05/24/2019 12:00:00 AM EST active 1 tablet eCW1 ([facility]) Morphine Sulfate 15 MG Extended Release Oral Tablet Mo rphine Sulfate ER 15 MG Morphine Sulfate ER 15 MG 05/24/2019 12:00:00 AM EST 1.0 {tablet} suspended Morphine Sulfate ER 15 MG eCW1 ( [facility]) Oxycodone Hydrochloride 5 MG Oral Tablet Oxycodone HCl 5 MG Oxycodone HCl 5 MG 05/24/2019 12:00:00 AM EST 1.0 {tablet_as_needed} suspended Oxycodone HCl 5 MG eCW1 ([facility]) Morphine Sulfate 15 MG Extended Release Oral Tablet Mo rphine Sulfate ER 15 MG Morphine Sulfate ER 15 MG 05/24/2019 12:00:00 AM EST suspended 1 tablet eCW1 ([facility]) Morphine Sulfate 15 MG Extended Release Oral Tablet Mo rphine Sulfate ER 15 MG Morphine Sulfate ER 15 MG 05/24/2019 12:00:00 AM EST suspended 1 tablet eCW1 ([facility]) Oxycodone Hydrochloride 5 MG Oral Tablet Oxycodone HCl 5 MG Oxycodone HCl 5 MG 05/24/2019 12:00:00 AM EST 1.0 {tablet_as_needed} suspended Oxycodone HCl 5 MG eCW1 ([facility]) Oxycodone Hydrochloride 5 MG Oral Tablet Oxycodone HCl 5 MG Oxycodone HCl 5 MG 05/24/2019 12:00:00 AM EST active 1 tablet as needed eCW1 ([facility]) Morphine Sulfate 15 MG Extended Release Oral Tablet Mo rphine Sulfate ER 15 MG Morphine Sulfate ER 15 MG 05/24/2019 12:00:00 AM EST 1.0 {tablet} suspended Morphine Sulfate ER 15 MG eCW1 ( [facility]) Oxycodone Hydrochloride 5 MG Oral Tablet Oxycodone HCl 5 MG Oxycodone HCl 5 MG 05/24/2019 12:00:00 AM EST active 1 tablet as needed eCW1 ([facility]) Oxycodone Hydrochloride 5 MG Oral Tablet Oxycodone HCl 5 MG Oxycodone HCl 5 MG 05/24/2019 12:00:00 AM EST 1.0 {tablet_as_needed} suspended Oxycodone HCl 5 MG eCW1 ([facility]) Oxycodone Hydrochloride 5 MG Oral Tablet Oxycodone HCl 5 MG Oxycodone HCl 5 MG 05/24/2019 12:00:00 AM EST 1.0 {tablet_as_needed} suspended Oxycodone HCl 5 MG eCW1 ([facility]) Oxycodone Hydrochloride 5 MG Oral Tablet Oxycodone HCl 5 MG Oxycodone HCl 5 MG 05/24/2019 12:00:00 AM EST 1.0 {tablet_as_needed} suspended Oxycodone HCl 5 MG eCW1 ([facility]) Morphine Sulfate 15 MG Extended Release Oral Tablet Mo rphine Sulfate ER 15 MG Morphine Sulfate ER 15 MG 05/24/2019 12:00:00 AM EST 1.0 {tablet} suspended Morphine Sulfate ER 15 MG eCW1 ( [facility]) Oxycodone Hydrochloride 5 MG Oral Tablet Oxycodone HCl 5 MG Oxycodone HCl 5 MG 05/24/2019 12:00:00 AM EST suspended 1 tablet as needed eCW1 ([facility]) Morphine Sulfate 15 MG Extended Release Oral Tablet Mo rphine Sulfate ER 15 MG Morphine Sulfate ER 15 MG 05/24/2019 12:00:00 AM EST 1.0 {tablet} suspended Morphine Sulfate ER 15 MG eCW1 ( [facility]) Morphine Sulfate 15 MG Extended Release Oral Tablet Mo rphine Sulfate ER 15 MG Morphine Sulfate ER 15 MG 05/24/2019 12:00:00 AM EST 1.0 {tablet} suspended Morphine Sulfate ER 15 MG eCW1 ( [facility]) Morphine Sulfate 15 MG Extended Release Oral Tablet Mo rphine Sulfate ER 15 MG Morphine Sulfate ER 15 MG 05/24/2019 12:00:00 AM EST suspended 1 tablet eCW1 ([facility]) Oxycodone Hydrochloride 5 MG Oral Tablet Oxycodone HCl 5 MG Oxycodone HCl 5 MG 05/24/2019 12:00:00 AM EST 1.0 {tablet_as_needed} suspended Oxycodone HCl 5 MG eCW1 ([facility]) Oxycodone Hydrochloride 5 MG Oral Tablet Oxycodone HCl 5 MG Oxycodone HCl 5 MG 05/24/2019 12:00:00 AM EST suspended 1 tablet as needed eCW1 ([facility]) Oxycodone Hydrochloride 5 MG Oral Tablet Oxycodone HCl 5 MG Oxycodone HCl 5 MG 05/24/2019 12:00:00 AM EST suspended 1 tablet as needed eCW1 ([facility]) Oxycodone Hydrochloride 5 MG Oral Tablet Oxycodone HCl 5 MG Oxycodone HCl 5 MG 05/24/2019 12:00:00 AM EST suspended 1 tablet as needed eCW1 ([facility]) Morphine Sulfate 15 MG Extended Release Oral Tablet Mo rphine Sulfate ER 15 MG Morphine Sulfate ER 15 MG 05/24/2019 12:00:00 AM EST 1.0 {tablet} suspended Morphine Sulfate ER 15 MG eCW1 ( [facility]) Morphine Sulfate 15 MG Extended Release Oral Tablet Mo rphine Sulfate ER 15 MG Morphine Sulfate ER 15 MG 05/24/2019 12:00:00 AM EST active 1 tablet eCW1 ([facility]) Oxycodone Hydrochloride 5 MG Oral Tablet Oxycodone HCl 5 MG Oxycodone HCl 5 MG 05/24/2019 12:00:00 AM EST 1.0 {tablet_as_needed} suspended Oxycodone HCl 5 MG eCW1 ([facility]) 10 mg 05/21/2019 12:00:00 AM EST tablet [...] EST active 1 tablet as needed eC1 ([facility]) 10 mg 05/04/2019 12:00:00 AM EST tablet [...] SOLD: 10/01/2019 [facility] Inject Dexamthosone Phosphate 92923-482-50 04/28/2019 12:00:00 A M EST completed MEDENT ([facility] Medication administered onsite Inject Triamcinolone Acetonide 10 ML, [facility] 7698-5493-27 04/28/2019 12:00:00 AM EST completed MEDENT ([facility] [...] BY MOUTH TWICE A DAY SOLD: 08/08/2019 [facility] 5 mg 04/14/2019 12:00:00 AM EST [...] MORNING AND REMOVE AT BEDTIME SOLD: 05/13/2019 [facility] duloxetine 60 MG Delayed Release Oral Capsule [Cymbalta] Cym [facility]igre 04/13/2019 12:00:00 AM EST 60 mg completed [id number] Cymbalta 04/13/2019 60 mg capsule,delayed release(DR/EC) [id number] Radha Nix [id number] [facility] Accume [facility] ([facility]) 21 mg/24 hr 04/13/2019 12:00:00 AM EST patch 24 hour 28 APPLY 1 PATCH TO SKIN ONCE DAILY IN THE MORNING AND REMOVE AT BEDTIME APPLY 1 PATCH TO SKIN ONCE DAILY IN THE MORNING AND REMOVE AT BEDTIME SOLD: 04/14/2019 [facility] duloxetine 30 MG Delayed Release Oral Capsule [Cymbalta] Cym tigre 04/13/2019 12:00:00 AM EST 30 mg completed [id number] Cymbalta 04/13/2019 30 mg capsule,delayed release(DR/EC) [id number] 1 [id number] Radha Nix [id number] [facility]ume dic ([facility]) duloxetine 60 MG Delayed Release Oral Capsule [Cymbalta] Cym tigre 04/13/2019 12:00:00 AM EST 60 mg completed [id number] Cymbalta 04/13/2019 60 mg capsule,delayed release(DR/EC) [id number] [id number] 1 [id number] Radha Nix [id number] Psychiatric/Mental Health Accume dic ([facility]) duloxetine 30 MG Delayed Release Oral Capsule [Cymbalta] Cym tigre 04/13/2019 12:00:00 AM EST 30 mg completed [id number] Cymbalta 04/13/2019 30 mg capsule,delayed release(DR/EC) 53917 [id number] 1 [id number] Radha Nix [id number] [facility] ([facility]) Lancets Ultra Fine Miscellaneous Lancets Ultra Fine Miscella neous 04/10/2019 12:00:00 AM EST aborted Lancets Ultra Fine SOFIA ([facility]) OneTouch Ultra Blue In Vitro Strip OneTouch Ultra Blue In Vi tro Strip 04/10/2019 12:00:00 AM EST aborted OneTou ch Ultra Blue SOFIA ([facility]) Nystatin 100 UNT/MG Topical Powder Nystatin [id number] UNI T/GM External Powder Nystatin [id number] UNIT/GM External Powder 04/10/2019 12:00:00 AM EST aborted nystatin 100 UNT/MG Topical Powd er ODESSA ([facility]) Spironolactone 25 MG Oral Tablet Spironolactone 25 MG Oral T ablet 04/10/2019 12:00:00 AM EST 1 aborted spirono lactone 25 MG Oral Tablet ODESSA ([facility]) montelukast 10 MG Oral Tablet [Singulair] Singulair 10 MG Oral Tablet Singulair 10 MG Oral Tablet 04/10/2019 12:00:00 AM EST aborted montelukast 10 MG Oral Tablet [Singulair] ODESSA ([facility]) Furosemide 40 MG Oral Tablet [Lasix] Lasix 40 MG Oral Tablet Lasix 40 MG Oral Tablet 04/10/2019 12:00:00 AM EST aborted furosemide 40 MG Oral Tablet [Lasix] ODESSA ([facility]) Losartan Potassium 25 MG Oral Tablet Losartan Potassium 25 M G Oral Tablet 04/10/2019 12:00:00 AM EST aborted losartan potassium 25 MG Oral Tablet [facility]) 200 ACTUAT Albuterol 0.09 MG/ACTUAT Mete red Dose Inhaler [Ventolin] Ventolin HFA 108 (90 Base) MCG/ACT Inhalation Aerosol Solution Ventolin HFA 108 (90 Base) MCG/ACT Inhalation Aerosol Solution 04/10/2019 12:00:00 AM EST 18 aborted [id number] 200 ACTUAT albuterol 0.09 MG/ACTUAT Metered Dose Inhaler [Ventolin] [facility]) Fluticasone Propionate 50 MCG/ACT Nasal Suspension Flu ticasone Propionate 50 MCG/ACT Nasal Suspension 04/10/2019 12:00:00 AM EST aborted fluticasone propionate 0.05 MG/ACTUAT Metered Dose Nasal Freeman [facility]) Sumatriptan 50 MG Oral Tablet [Imitrex] Imitrex 50 MG Oral Tablet Imitrex 50 MG Oral Tablet 04/10/2019 12:00:00 AM EST aborte d sumatriptan 50 MG Oral Tablet [Imitrex] [facility]) Metformin hydrochloride 1000 MG Oral Tablet metFORMIN HCl 1000 MG Oral Tablet metFORMIN HCl 1000 MG Oral Tablet 04/10/2019 12:00:00 AM EST aborted metformin hydrochloride 1000 MG Oral Tab let [facility]) Docusate Sodium 100 MG Oral Capsule [Dul colax Stool Softener] Dulcolax Stool Softener 100 MG Oral Capsule Dulcolax Stool Softener 100 MG Oral Capsule 04/10/2019 12:00:00 AM EST aborted docusate sodium 100 MG Oral Capsule [Dulcolax Stool Softener] [facility]) cetirizine hydrochloride 10 MG Oral Tablet Cetirizine HCl 10 MG Oral Tablet Cetirizine HCl 10 MG Oral Tablet 04/10/2019 12:00:00 AM EST aborted cetirizine hydrochloride 10 MG Oral Tablet ODESSA ([facility]) Oxycodone Hydrochloride 5 MG Oral Tablet Oxycodone HCl 5 MG Oxycodone HCl 5 MG 03/27/2019 12:00:00 AM EST active 1 tablet as needed eCW1 ([facility]) Oxycodone Hydrochloride 5 MG Oral Tablet Oxycodone HCl 5 MG Oxycodone HCl 5 MG 03/27/2019 12:00:00 AM EST active 1 tablet as needed eC ([facility]) Morphine Sulfate 15 MG Extended Release Oral Tablet Mo rphine Sulfate ER 15 MG Morphine Sulfate ER 15 MG 03/27/2019 12:00:00 AM EST active 1 tablet eCW1 ([facility]) Morphine Sulfate 15 MG Extended Release Oral Tablet Mo rphine Sulfate ER 15 MG Morphine Sulfate ER 15 MG 03/27/2019 12:00:00 AM EST active 1 tablet eCW1 ([facility]) 15 mg 03/24/2019 12:00:00 AM EST tablet extended release 60 TAKE ONE TABLET BY MOUTH EVERY 12 HOURS MAXIMUM DAILY DOSE = 2 TABLETS TAKE ONE TABLET BY MOUTH EVERY 12 HOURS MAXIMUM DAILY DOSE = 2 TABLETS SOLD: 03/25/2019 [employer] Morphine Sulfate 15 MG Extended Release Oral Tablet Mo rphine Sulfate ER 15 MG Morphine Sulfate ER 15 MG 03/23/2019 12:00:00 AM EST active 1 tablet eCW1 ([facility]) 20 mg 03/17/2019 12:00:00 AM EST capsule,delayed [...] EST active 1 tablet as needed eCW1 ([facility]) 800 mg 03/15/2019 12:00:00 AM EST tablet [...] aborted spirono lactone 25 MG Oral Tablet [facility]) Nystatin 100 UNT/MG Topical Powder Nystatin 101924 UNI T/GM External Powder Nystatin [id number] UNIT/GM External Powder 02/06/2019 12:00:00 AM EDT aborted nystatin 100 UNT/MG Topical Powd er ODESSA ([facility]) Sumatriptan 50 MG Oral Tablet [Imitrex] Imitrex 50 MG Oral Tablet Imitrex 50 MG Oral Tablet 02/06/2019 12:00:00 AM EDT aborte d sumatriptan 50 MG Oral Tablet [Imitrex] [facility]) Furosemide 40 MG Oral Tablet [Lasix] Lasix 40 MG Oral Tablet Lasix 40 MG Oral Tablet 02/06/2019 12:00:00 AM EDT aborted furosemide 40 MG Oral Tablet [Lasix] [facility]) 100,000 unit/gram 02/06/2019 12:00:00 AM EDT [...] montelukast 10 MG Oral Tablet [Singulair] SOFIA ([facility]) OneTouch Ultra Blue In Vitro Strip OneTouch Ultra Blue In Vi tro Strip 02/06/2019 12:00:00 AM EDT aborted OneTou ch Ultra Blue SOFIA ([facility]) OneTouch Delica Lancets Fine Miscellaneous OneTouch De lica Lancets Fine Miscellaneous 02/06/2019 12:00:00 AM EDT abor rubi OneTouch Delica Lancets Fine SOFIA ([facility]) cetirizine hydrochloride 10 MG Oral Tablet Cetirizine HCl 10 MG Oral Tablet Cetirizine HCl 10 MG Oral Tablet 02/06/2019 12:00:00 AM EDT aborted cetirizine hydrochloride 10 MG Oral Tablet SOFIA ([facility]) Docusate Sodium 100 MG Oral Capsule [Dul colax Stool Softener] Dulcolax Stool Softener 100 MG Oral Capsule Dulcolax Stool Softener 100 MG Oral Capsule 02/06/2019 12:00:00 AM EDT aborted docusate sodium 100 MG Oral Capsule [Dulcolax Stool Softener] ODESSA ([facility]) Losartan Potassium 25 MG Oral Tablet Losartan Potassium 25 M G Oral Tablet 02/06/2019 12:00:00 AM EDT aborted losartan potassium 25 MG Oral Tablet ODESSA ([facility]) 200 ACTUAT Albuterol 0.09 MG/ACTUAT Mete red Dose Inhaler [Ventolin] Ventolin HFA 108 (90 Base) MCG/ACT Inhalation Aerosol Solution Ventolin HFA 108 (90 Base) MCG/ACT Inhalation Aerosol Solution 02/06/2019 12:00:00 AM EDT 18 aborted [id number] 200 ACTUAT albuterol 0.09 MG/ACTUAT Metered Dose Inhaler [Ventolin] SOFIA ([facility]) Metformin hydrochloride 1000 MG Oral Tablet metFORMIN HCl 1000 MG Oral Tablet metFORMIN HCl 1000 MG Oral Tablet 02/06/2019 12:00:00 AM EDT aborted metformin hydrochloride 1000 MG Oral Tab let SOFIA ([facility]) Fluticasone Propionate 50 MCG/ACT Nasal Suspension Flu ticasone Propionate 50 MCG/ACT Nasal Suspension 02/06/2019 12:00:00 AM EDT aborted fluticasone propionate 0.05 MG/ACTUAT Metered Dose Nasal [place] SOFIA ([facility]) 10 mg 02/06/2019 12:00:00 AM EDT tablet [...] amitriptyline hydrochloride 25 M G Oral Tablet [facility]) 24 HR Oxybutynin chloride 10 MG Extended Release Oral Tablet [Ditropan] Ditropan XL 10MG Oral Tablet Extended Release 24 Hour Ditropan XL 10MG Oral Tablet Extended Release 24 Hour 10/18/2018 12:00:00 AM EDT aborted 24 HR oxybutynin chloride 10 MG Extended Release Oral Tablet [Ditropan] ODESSA ([facility]) BLOOD SUGAR DIAGNOSTIC 10/11/2018 12:00:00 AM EDT strip 100 TEST THREE TIMES A DAY TEST THREE TIMES A DAY SOLD: 10/17/2019 [employer] Losartan Potassium 25 MG Oral Tablet LOSARTAN [...] 30 MG Delayed Release Oral Capsule SOFIA ([facility]) duloxetine 60 MG Delayed Release Oral Ca psule DULoxetine HCl 60MG Oral Capsule Delayed Release Particles DULoxetine HCl 60MG Oral Capsule Delayed Release Particles 08/23/2018 12:00:00 AM EDT aborted duloxetine 60 MG Delayed Release Oral Capsule SOFIA ([facility]) buspirone hydrochloride 10 MG Oral Tablet busPIRone HC l 10MG Oral Tablet busPIRone HCl 10MG Oral Tablet 08/23/2018 12:00:00 AM EDT aborted buspirone hydrochloride 10 MG Oral Tablet ODESSA ([facility]) aripiprazole 5 MG Oral Tablet [Abilify] Abilify 5MG Or al Tablet Abilify 5MG Oral Tablet 08/23/2018 12:00:00 AM EDT aborted aripiprazole 5 MG Oral Tablet [Abilify] SOFIA ([facility]) Oxycodone Hydrochloride 5 MG Oral Capsule oxyCODONE HC l 5MG Oral Capsule oxyCODONE HCl 5MG Oral Capsule 08/23/2018 12:00:00 AM EDT aborted oxycodone hydrochloride 5 MG Oral Capsule ODESSA ([facility]) 12 HR Bupropion Hydrochloride 100 MG Ext ended Release Oral Tablet [Wellbutrin] Wellbutrin SR 100MG Oral Tablet Extended Release 12 Hour Wellbutrin SR 100MG Oral Tablet Extended Release 12 Hour 08/23/2018 12:00:00 AM EDT aborted 12 HR bupropion hydr ochloride 100 MG Extended Release Oral Tablet [Wellbutrin] ODESSA ([facility]) pregabalin 200 MG Oral Capsule [Lyrica] Lyrica 200MG O ral Capsule Lyrica 200MG Oral Capsule 08/23/2018 12:00:00 AM EDT abort ed pregabalin 200 MG Oral Capsule [Lyrica] SOFIA ([facility]) Insurance Providers Payer name Policy type / Coverage type Policy ID Covered constitution party ID Covered constitution party's relationship to robin Policy Robin Plan Information [employer] COMMUNITY PLAN MCDO [id number] SP [id number] [employer] COMMUNITY PLAN MCDHMO [id number] SP [id number] [facility]) O [id number] S [id number] [id number] [id number] UN AMERICHOICE XIX -O [id number] 18 [id number] [facility] [id number] SP [id number] [facility] I [id number] Self [id number] [facility] Individual Policy [id number] S elf [id number] [facility] Individual Policy [id number] S elf [id number] [facility] Individual Policy [id number] S elf [id number] [facility]-Med[facility] [id number] [facility]-Med[facility] [id number] [facility]-Medicaid [id number] [employer] Medicaid Medicaid [id number] Self [id number] [facility]-Medicaid [id number] [facility] [id number] Self [id number] ANSI-Medicaid [id number] ANSI-Medicaid [id number] [facility] Individual Policy [id number] S elf [id number] ANSI-Medicaid [id number] ANSI-Medicaid [id number] ANSI-Medicaid [id number] [facility] Community Plan Medigap Part B [id number] Self [id number] [facility] Community Plan Commercial [id number] Self [id number] ANSI-Medicaid [id number] [facility] COMMUNITY PLAN MCDHMO [id number] SP [id number] ANSI-Medicaid [id number] ANSI-Medicaid [id number] ANSI-Medicaid [id number] ANSI-Medicaid [id number] ANSI-Medicaid [id number] ANSI-Medicaid [id number] ANSI-Medicaid [id number] ANSI-Medicaid [id number] ANSI-Medicaid [id number] ANSI-Medicaid [id number] ANSI-Medicaid [id number] ANSI-Medicaid [id number] ANSI-Medicaid [id number] ANSI-Medicaid [id number] ANSI-Medicaid [id number] ANSI-Medicaid [id number] ANSI-Medicaid [id number] [facility] Health Maintenance Organization [place] [id number] Self [id number] [facility] Individual Policy [id number] S elf [id number] ANSI-Medicaid [id number] ANSI-Medicaid [id number] ANSI-Medicaid [id number] ANSI-Medicaid [id number] ANSI-Medicaid [id number] ANSI-Medicaid [id number] ANSI-Medicaid [id number] ANSI-Medicaid [id number] ANSI-Medicaid [id number] ANSI-Medicaid [id number] ANSI-Medicaid [id number] ANSI-Medicaid [id number] [facility] COMMUNITY [facility] [id number] ANSI-Medicaid [id number] [facility] Health Individual Policy [address] ANSI-Medicaid [id number] ANSI-Medicaid [id number] [facility] Individual Policy [address] [facility] [id number] ANSI-Medicaid [id number] ANSI-Medicaid [id number] [facility] Community Plan Medigap Part B [id number] Self [id number] [facility] Community Plan Commercial [id number] Self [id number] [facility] Behavioral Health Individual Policy [id number] S el [id number] ANSI-Medicaid [id number] ANSI-Medicaid [id number] [facility] Individual Policy [id number] S [facility] [id number] ANSI-Medicaid [id number] ANSI-Medicaid [id number] [facility] Community Scionhealthgap Part B [id number] Self [id number] [facility] Community Plan Commercial [id number] Self [id number] ANSI-Medicaid [id number] ANSI-Medicaid [id number] ANSI-Medicaid [id number] [facility] Community Plan Medigap Part B [id number] Self [id number] [facility] Community Plan Commercial [id number] Self [id number] [facility] Community Plan Medigap Part B [id number] Self [id number] [facility] Community Plan Commercial [id number] Self [id number] ANSI-Medicaid [id number] ANSI-Medicaid [id number] ANSI-Medicaid [id number] ANSI-Medicaid [id number] [facility] Individual Policy [id number] S elf [id number] ANSI-Medicaid [id number] ANSI-Medicaid [id number] [facility] Community Plan Medigap Part B [id number] Self [id number] [facility] Community Plan Commercial [id number] Self [id number] ANSI-Medicaid [id number] ANSI-Medicaid [id number] ANSI-Medicaid [id number] ANSI-Medicaid [id number] ANSI-Medicaid [id number] [facility] Individual Policy [id number] S elf [id number] [facility] MEDICAID [id number] S [id number] [facility] MEDICAID [id number] S [id number] [facility] Community Plan Medigap Part B [id number] Self [id number] [facility] Community Plan Commercial [id number] Self [id number] [facility] Individual Policy [id number] S elf [id number] [facility] Community Plan Medigap Part B [id number] Self [id number] [facility] Community Plan Commercial [id number] Self [id number] [facility] Maintenance Organization (HMO) [id number] Self [id number] [facility] Maintenance Organization (HMO) [id number] Self [id number] [facility] Community Plan Medigap Part B [id number] Self [id number] [facility] Community Plan Commercial [id number] Self [id number] [facility] Individual Policy [id number] S elf [id number] [facility]al Health Individual Policy [id number] S elf [id number] UNHC AMERICHOICE XIX -HMO [id number] 18 [id number] UNHC COMMUNITY PLAN MCDHMO [id number] SP [id number] [facility] Community Plan Medigap Part B [id number] Self [id number] [facility] Community Plan Commercial [id number] Self [id number] [facility] Behavioral Health Individual Policy [id number] S elf [id number] [facility] MEDICAID [place] HMO [id number] S [id number] [facility] Health Maintenance Organization (HMO) [id number] Self [id number] [facility] Individual Policy [id number] S elf [id number] [employer] COMMUNITY PLAN XIX -RECURRING [id number] 18 [id number] [facility] [id number] [facility] Community Plan Medigap Part B [id number] Self [id number] [facility] Community Plan Commercial [id number] Self [id number] [employer] COMMUNITY PLAN MCDHMO [id number] SP [id number] [facility] Maintenance Organization (HMO) Self [facility] Hmo Commercial Self [facility] Community Plan Commercial Self [facility] Community Plan Commercial Self [id number] UNAVAILABLE UNAVAILA BLE [facility] Health Maintenance Organization (HMO) Self [employer] [facility] MCRHMO [id number] SP [id number] MEDICAID [place] [id number] S [id number] [facility](MCAID) O [id number] S [id number] [facility] COMMUNITY PLAN MCDHMO [id number] SP [id number] [facility] [id number] SP [id number] [facility] Medicaid Medicaid Self BLUE CROSS GARDNER PLAN [id number] SP [id number] MEDICAID [id number] SP [id number] MEDICAID [id number] SP [id number] MEDICAID [id number] SP [id number] [facility] Hmo Commercial Self C MEDICAID [id number] Geovanna [id number] 21 O UNAVAILABLE UNAVAILA BLE [facility] Community Plan Commercial Self [facility] COMMUNITY PLAN MCDHMO [id number] SP [id number] MEDICAID-O/P [id number] [employer] BCBS P [id number] S [id number] BLUE CROSS BLUE SHIELD-O/P [id number] Problems, Conditions, and Diagnoses Code Display Name Description Problem Type Effective Dates Data Source(s) F12.10 Cannabis abuse, uncomplicated Cannabis Use Disorder, M ild Condition 04/26/2020 12:00:00 AM EST [facility] ([facility]) F17.200 Nicotine dependence, unspecified, uncomp licated Tobacco Use Disorder, Moderate Condition 04/26/2020 12:00:00 AM EST [facility] ([facility]) F33.1 Major depressive disorder, recurrent, mo derate Major Depressive Disorder, Recurrent episode, Moderate Condition 04/26/2020 12:00:00 AM EST [facility] ([facility]) 883547505 Gastroesophageal reflux disease Gastroesophageal reflux disease Problem 04/23/2020 12:00:00 AM EST [facility] 809438744 Bariatric operative procedure Bariatric operative proc edure Problem 03/27/2020 12:00:00 AM EST [facility] ([facility]) 253571650 Tobacco user Tobacco user Problem 03/27/2020 12:00:00 A M EST [facility] ([facility]) 13749783 Obstructive sleep apnea syndrome Obstructive sle ep apnea syndrome Problem 03/27/2020 12:00:00 AM EST [facility] ([facility]) 86131509 Depressive disorder Depressive disorder Problem 1 05/28/2019 12:00:00 AM EST [facility] ([facility]) 90046238 Anxiety Anxiety Problem 03/27/2020 12:00:00 AM ES T [facility] ([facility]) 67248728 Migraine Migraine Problem 03/27/2020 12:00:00 AM ES T [facility] ([facility]) 305323003 Gastroesophageal reflux disease Gastroesophageal reflux disease Problem 03/27/2020 12:00:00 AM EST [facility] ([facility]) 15460754 Type 2 diabetes mellitus Type 2 diabetes mellitus Prob isabelle 03/27/2020 12:00:00 AM EST [facility] ([facility]) D22.61 094356694 Melanocytic nevi of right upper limb, including shoulder Problem 03/13/2020 12:00:00 AM EST eCW1 ([facility]) D22.62 [id number] Melanocytic nevi of left upper l imb, including shoulder Problem 03/13/2020 12:00:00 AM EST eCW1 ([facility]) D22.71 730580392 Melanocytic nevi of right lower limb, inc luding hip Problem 03/13/2020 12:00:00 AM EST eCW1 ([facility]) D22.72 [id number] Melanocytic nevi of left lower l imb, including hip Problem 03/13/2020 12:00:00 AM EST eCW1 ([facility]) D22.21 [id number] Melanocytic nevi of right ear Problem 03/13/2020 12:00:00 AM EST eCW1 ([facility]) D22.22 [id number] Melanocytic nevi of left ear Problem 03/13/2020 12:00:00 AM EST eCW1 ([facility]) [id number] Essential hypertension Essential hypertension Problem 02/20/2020 12:00:00 AM EST MEDENT ([facility]) M46.1 [id number] Bilateral sacroiliitis Problem 02/14/2020 12:00:00 AM EDT eCW1 ([facility]) [id number] Migraine without aura, not refractory Mi graine without aura, not refractory Problem 09/28/2019 12:00:00 AM EDT MEDENT ([facility], ) 590.10 Pyelonephritis Acute Bacterial Pyelonephritis Acute Ba cterial Problem 05/30/2019 12:00:00 AM EST SOFIA ([facility]) 590.10 Pyelonephritis Acute Bacterial Pyelonephritis Acute Ba cterial Problem 05/30/2019 12:00:00 AM EST SOFIA ([facility]) 590.10 Pyelonephritis Acute Bacterial Pyelonephritis Acute Ba cterial Problem 05/30/2019 12:00:00 AM EST SOFIA ([facility]) 590.10 Pyelonephritis Acute Bacterial Pyelonephritis Acute Ba cterial Problem 05/30/2019 12:00:00 AM EST SOFIA ([facility]) 590.10 Pyelonephritis Acute Bacterial Pyelonephritis Acute Ba cterial Problem 05/30/2019 12:00:00 AM EST SOFIA ([facility]) 590.10 Pyelonephritis Acute Bacterial Pyelonephritis Acute Ba cterial Problem 05/30/2019 12:00:00 AM EST SOFIA ([facility]) 590.10 Pyelonephritis Acute Bacterial Pyelonephritis Acute Ba cterial Problem 05/30/2019 12:00:00 AM EST SOFIA ([facility]) [id number] Plantar fascial fibromatosis Plantar fascial fibromato sis Problem 05/15/2019 12:00:00 AM EST MEDENT ([facility] M47.816 [id number] Spondylosis without myelopathy or radiculopathy, lumbar region Problem 03/07/2019 12:00:00 AM EST eCW1 ([facility]) M47.817 [id number] Spondylosis without myelopathy or radiculopathy, lumbosacral region Problem 03/07/2019 12:00:00 AM EST eCW1 ([facility]) N390 Urinary tract infection, site not specif ied Urinary tract infection, site not specified Diagnosis 10/10/2019 04:06:00 PM EDT [facility] N10 Acute pyelonephritis Acute pyelonephritis Diagnosis 07/11/2019 03:28:00 PM EDT [facility] D72.829 Elevated white blood cell count, unspeci fied Elevated white blood cell count, unspecified Diagnosis 06/19/2019 10:26:35 AM EST [facility] Surgeries/Procedures Procedure Description Date Indications Data Source(s) Extended Individual Psychotherapy - 45 min 04/26/2020 12:00:00 AM EST - 04/26/2020 12:00:00 AM EST [facility] ([facility]) Extended Individual Psychotherapy - 45 min 1 12:00:00 AM EST [facility] ([facility]) MHC Telemed E/M Lvl 3--Est pt 04/17/2020 12:00:00 AM EST - 04/17/2020 12:00:00 AM EST [facility] ([facility]) MHC Telemed E/M Lvl 3--Est pt 04/17/2020 12:00:[address] [facility] ([facility]) ARTHROCENTESIS ASPIR&/INJECTION MAJOR JT/BURSA 020 12:00:00 AM EST MEDENT ([facility]) Extended Individual Psychotherapy - 45 min 04/02/2020 12:00:00 AM EST - 04/02/2020 12:00:00 AM EST [facility] ([facility]) Extended Individual Psychotherapy - 45 min 0 12:00:00 AM EST [facility] ([facility]) Psychiatric Diagnostic Evaluation (Non-Medical) 03/20/2020 12:00:00 AM EST - 03/20/2020 12:00:00 AM EST [facility] ([facility]) Psychiatric Diagnostic Evaluation (Non-Medical) 2019 12:00:00 AM EST [facility] ([facility]) Pain Procedure Log 03/19/2020 12:00:00 AM EST eCW1 ([facility]) PARING/CUTTING BENIGN HYPERKERATOTIC LESION 2-4 2019 12:00:00 AM EST MEDENT ([facility] DEBRIDEMENT NAIL ANY METHOD > 03/11/2020 12:00:00 AM EST MEDENT ([facility] Medication: Benadryl Tab 25mg Orally (Diphenhydramine) 03/05/2020 12:00:00 AM EST eCW1 ([facility]) Medication: Oxycodone HCL Tab 10mg Orally 03/05/2020 1 2:00:00 AM EST eCW1 ([facility]) Unclassified drugs 03/05/2020 12:00:00 AM EST eCW1 ([facility]) Brief Individual Psychotherapy - 30 min 02/28/2020 12:00:00 AM EST - 02/28/2020 12:00:00 AM EST [facility] ([facility]) Brief Individual Psychotherapy - 30 min 02/28/2020 12: 00:00 AM EST [facility] ([facility]) RADEX WRIST COMPLETE MINIMUM 3 VIEWS 02/27/2020 12:00: 00 AM EST MEDENT ([facility] ) RADEX WRIST COMPLETE MINIMUM 3 VIEWS 02/27/2020 12:00: 00 AM EST MEDENT ([facility] ) X-Ray Hip Unilateral With Pelvis 2-3 Views 01/29/2020 12:00:00 AM EDT MEDENT ([facility] ) DEBRIDEMENT NAIL ANY METHOD > 01/02/2020 12:00:00 AM EDT MEDENT ([facility] X-Ray Hip Unilateral With Pelvis 2-3 Views 12/28/2019 12:00:00 AM EDT MEDENT ([facility]) TEMPMHCTelemed 30" Psychotherapy 020 12:00:00 AM EDT - 10/19/2019 12:00:00 AM EDT [facility] ([facility]) TEMPMHCTelemed 30" Psychotherapy 10/19/2019 12:00:00 A M EDT [facility] ([facility]) X-Ray Hip Unilateral With Pelvis 2-3 Views 10/17/2019 12:00:00 AM EDT MEDENT ([facility]) MHC Telemed E/M Lvl 3--Est pt 10/05/2019 12:00:00 AM EDT - 10/05/2019 12:00:00 AM EDT [facility] ([facility]) MHC Telemed E/M Lvl 3--Est pt 10/05/2019 12:00:00 AM E DT [facility] ([facility]) TEMPMHCTelemed 30" Psychotherapy 12:00:00 AM EDT - 10/03/2019 12:00:00 AM EDT [facility] ([facility]) TEMPMHCTelemed 30" Psychotherapy 10/03/2019 12:00:00 A M EDT [facility] ([facility]) PARING/CUTTING BENIGN HYPERKERATOTIC LESION 2-4 2019 12:00:00 AM EDT MEDENT ([facility] DEBRIDEMENT NAIL ANY METHOD 6/> 09/22/2019 12:00:00 AM EDT MED[facility] ([facility] INJ PARAVERT F JNT L/S 1 LEV 09/18/2019 12:00:00 AM ED T eCW1 ([facility]) INJ PARAVERT F JNT L/S 2 LEV 09/18/2019 12:00:00 AM ED T eCW1 ([facility]) MHC Telemed E/M Lvl 3--Est pt 09/13/2019 12:00:00 AM EDT - 09/13/2019 12:00:00 AM EDT [facility] ([facility]) MHC Telemed E/M Lvl 3--Est pt 09/13/2019 12:00:00 AM E DT [facility] ([facility]) ESTABILISHED PATIENT [facility] FACILITY CHARGE 12:00:00 AM EDT eCW1 ([facility]) Eligible professional attests to figueroa morrison in the medical record they obtained, updated, or reviewed the patient's current medications 09/04/2019 12:00:00 AM EDT eCW1 ([facility]) Pain assessment documented as positive u sing a standardized tool and a follow-up plan is documented 09/04/2019 12:00:00 AM EDT e CW1 ([facility]) X-Ray Hips Bilateral With Pelvis 3-4 Views 08/17/2019 12:00:00 AM EDT DORA ([facility] ) PHYSICIAN TELEPHONE EVALUATION 11-20 MIN 07/31/2019 12 :00:00 AM EDT eCW1 ([facility]) TEMPMHCTelemed 20" psychotherapy 12:00:00 AM EDT - 07/24/2019 12:00:00 AM EDT [facility] ([facility]) TEMPMHCTelemed 20" psychotherapy 07/24/2019 12:00:00 A M EDT [facility] ([facility]) TEMPMHCTelemed 30" Psychotherapy 12:00:00 AM EDT - 07/19/2019 12:00:00 AM EDT [facility] ([facility]) TEMPMHCTelemed 30" Psychotherapy 07/19/2019 12:00:00 A M EDT [facility] ([facility]) MHC Telemed E/M Lvl 3--Est pt 07/12/2019 12:00:00 AM EDT - 07/12/2019 12:00:00 AM EDT [facility] ([facility]) MHC Telemed E/M Lvl 3--Est pt 07/12/2019 12:00:00 AM E DT [facility] ([facility]) Lumbar/Sacral w/ Imaging 07/11/2019 12:00:00 AM EDT eCW1 ([facility]) RADXPS IN END [id number] PXD 07/11/2019 12:00:00 AM ED T eCW1 ([facility]) TEMPMHCTelemed 30" Psychotherapy 020 12:00:00 AM EDT - 07/07/2019 12:00:00 AM EDT [facility] ([facility]) TEMPMHCTelemed 30" Psychotherapy 07/07/2019 12:00:00 A M EDT [facility] ([facility]) FLOW CYTOMETRY CELL CYCLE/DNA BHARATHI LEUKEMIA / LYMPHOM A PHENOTYPE, PERIPHERAL BLOOD Routine 06/19/2019 12:36 PM EST 06/19/2019 05:36 :00 PM [facility] Brief Individual Psychotherapy - 30 min 06/14/2019 12:00:00 AM EST - 06/14/2019 12:00:00 AM EST [facility] ([facility]) Brief Individual Psychotherapy - 30 min 06/14/2019 12: 00:00 AM EST [facility] ([facility]) Brief Individual Psychotherapy - 30 min 05/17/2019 12:00:00 AM EST - 05/17/2019 12:00:00 AM EST [facility] ([facility]) Brief Individual Psychotherapy - 30 min 05/17/2019 12: 00:00 AM EST [facility] ([facility]) Brief Individual Psychotherapy - 30 min 05/02/2019 12:00:00 AM EST - 05/02/2019 12:00:00 AM EST [facility] ([facility]) Brief Individual Psychotherapy - 30 min 05/02/2019 12: 00:00 AM EST [facility] ([facility]) DEBRIDEMENT NAIL ANY METHOD 6/> 04/28/2019 12:00:00 AM EST MEDENT ([facility] INJECTION 1 TENDON SHEATH/LIGAMENT APONEUROSIS 020 12:00:00 AM EST MEDENT ([facility] Brief Individual Psychotherapy - 30 min 04/17/2019 12:00:00 AM EST - 04/17/2019 12:00:00 AM EST [facility] ([facility]) Brief Individual Psychotherapy - 30 min 04/17/2019 12: 00:00 AM EST [facility] ([facility]) OFFICE OUTPATIENT VISIT 15 MINUTES 04/13 12:00:00 AM EST - 04/13/2019 12:00:00 AM EST [facility] ([facility]) OFFICE OUTPATIENT VISIT 15 MINUTES 04/13/2019 12:00:00 AM EST [facility] ([facility]) Brief Individual Psychotherapy - 30 min 04/05/2019 12:00:00 AM EST - 04/05/2019 12:00:00 AM EST [facility] ([facility]) Brief Individual Psychotherapy - 30 min 04/05/2019 12: 00:00 AM EST [facility] ([facility]) Brief Individual Psychotherapy - 30 min 03/22/2019 12:00:00 AM EST - 03/22/2019 12:00:00 AM EST [facility] ([facility]) Brief Individual Psychotherapy - 30 min 03/22/2019 12: 00:00 AM EST [facility] ([facility]) Brief Individual Psychotherapy - 30 min 03/06/2019 12:00:00 AM EST - 03/06/2019 12:00:00 AM EST [facility] ([facility]) Brief Individual Psychotherapy - 30 min 03/06/2019 12: 00:00 AM EST [facility] ([facility]) OFFICE OUTPATIENT VISIT 15 MINUTES 03/02 12:00:00 AM EST - 03/02/2019 12:00:00 AM EST [facility] ([facility]) OFFICE OUTPATIENT VISIT 15 MINUTES 03/02/2019 12:00:00 AM EST [facility] ([facility]) Results ID Date Data Source [id number] 04/28/2020 10:00:00 AM EST [facility] Name Value Range Interpretation Code Description Data Teresa rce(s) Supporting Document(s) SARS coronavirus 2 RNA Not Detected [facility] [place] This lab was ordered by [facility] and reported by [facility]. ID Date Data Source [id number] 04/24/2020 02:00:00 PM EST [facility] Name Value Range Interpretation Code Description Data Teresa rce(s) Supporting Document(s) SARS coronavirus 2 RNA Not Detected [facility] [place] This lab was ordered by [facility] and reported by [facility]. ID Date Data Source [id number] 04/06/2020 10:30:00 AM EST MEDENT ([facility]) Name Value Range Interpretation Code Description Data Teresa rce(s) Supporting Document(s) Surgical pathology study Laboratory test result [facility] ([facility]) 04/08/2020957 PERPHERAL SMEAR REVIEW Peripheral smear: Leukocytosis associated with neutrophilia, monocytosis and lymphocytopenia. Erythrocytes appear normal in number and are overall normochromic. Platelet count within normal limits. 04/08/2020957 Signed LISA CABRERA MD 04/08/2020 1004 ID Date Data Source [id number] 04/06/2020 09:58:00 AM EST MEDENT ([facility]) Name Value Range Interpretation Code Description Data [facility] rce(s) Supporting Document(s) Hemoglobin 13.0 g/dL 12.0-15.5 Normal (applies to non-numeric resul ts) [facility] ([facility]) Red Blood Count 4.35 10 4.00-5.40 Normal (applies to non-numeric results) [facility] ([facility]) White Blood Count 17.6 10 4.0-10.0 Above high normal [facility] ([facility]) Mean Corpuscular Volume 95.4 fl 80.0-96.0 Normal ( applies to non-numeric results) [facility] ([facility]) Mean Corpuscular Hemoglobin 29.9 pg 27.0-33.0 Norm al (applies to non-numeric results) [facility] ([facility]) Hematocrit 41.5 % 36.0-47.0 Normal (applies to non-numeric resul ts) [facility] ([facility]) Red Cell Distribution Width 14.0 % 11.5-14.5 Norm al (applies to non-numeric results) MEDENT ([facility]) Platelet Count, Automated 395 10 150-450 Normal (applies to non-numeric results) [facility] ([facility]) Mean Corpuscular HGB Conc 31.3 g/dL 32.0-36.5 Below low normal [facility] ([facility]) Lymph % 17.4 % 24.0-44.0 Below low normal MEDENT ( [facility]) Neutrophils % 74.6 % 36.0-66.0 Above high normal MEDE NT ([facility]) [place] % 6.6 % 0.0-5.0 Above high normal [facility] ([facility]) Baso % 0.3 % 0.0-1.0 Normal (applies to non-numeric resul ts) [facility] ([facility]) Eos % 0.1 % 0.0-3.0 Normal (applies to non-numeric resul ts) [facility] ([facility]) Immature Granulocyte % 1.0 % 0-3.0 Normal (applies to non-n umeric results) [facility] ([facility]) Nucleated Red Blood Cell % 0.0 % 0-0 Normal (applies to n on-numeric results) [facility] ([facility]) Lymph # 3.1 10 1.5-5.0 Normal (applies to non-numeric resul ts) [facility] ([facility]) Neutrophils # 13.1 10 1.5-8.5 Above high normal MEDE NT ([facility]) [place] # 1.2 10 0.0-0.8 Above high normal MED[facility] ([facility]) Baso # 0.1 10 0.0-0.2 Normal (applies to non-numeric resul ts) [facility] ([facility]) Eos # 0.0 10 0.0-0.5 Normal (applies to non-numeric resul ts) [facility] ([facility]) ID Date Data Source [id number] 04/06/2020 09:58:00 AM EST MEDENT ([facility]) Name Value Range Interpretation Code Description Data Teresa rce(s) Supporting Document(s) Triglycerides Level 91 mg/dL Normal (applies to non-nume cecilia results) [facility] ([facility]) Cholesterol Level 172 mg/dL Normal (applies to non-numeri c results) [facility] ([facility]) HDL Cholesterol 55 mg/dL Normal (applies to non-numeric results) [facility] ([facility]) Non-HDL-C 117 mg/dL Normal (applies to non-numeric resul ts) [facility] ([facility]) LDL Cholesterol 99 mg/dL Normal (applies to non-numeric results) [facility] ([facility]) Cholesterol Risk Ratio 3.127 Normal (applies to non-n umeric results) [facility] ([facility]) ID Date Data Source [id number] 04/06/2020 09:58:00 AM EST [facility]) Name Value Range Interpretation Code Description Data Teresa rce(s) Supporting Document(s) Slide Review Laboratory test result Normal (applies to non -numeric results) [facility]) Slide and/or specimen referred to Pathol ogist for review. Results of the review are located in the EMR Pathology module under Peripheral Smear when completed. Source Laboratory test result Normal (applies to non-n umeric results) [facility] ([facility]) PERIPHERAL SMEAR Reason For Review Laboratory test result Normal (applies to non-numeric results) [facility] ([facility]) ID Date Data Source [id number] 04/06/2020 09:58:00 AM EST MEDENT ([facility]) Name Value Range Interpretation Code Description Data Teresa rce(s) Supporting Document(s) Calcidiol [Mass/volume] in Serum or Plasma 67.5 ng/mL 30.0- 100.0 Normal (applies to non-numeric results) [facility] ([facility]) ID Date Data Source [id number] 04/06/2020 09:58:00 AM EST MEDENT ([facility]) Name Value Range Interpretation Code Description Data Teresa rce(s) Supporting Document(s) Vitamin B12 Level 1352 pg/mL Normal (applies to non-numeri c results) [facility] ([facility]) VITAMIN B12 NORMAL RANGE NORMAL 247 - 911 PG/ML INDETERMINATE 211 - 246 PG/ML DEFICIENT LESS THAN 211 PG/ML Folate 10.0 ng/mL Normal (applies to non-numeric resul ts) [facility] ([facility]) FOLATE NORMAL RANGE NORMAL GREATER THAN 5.4 NG/ML INDETERMINATE 3.4-5.4 NG/ML DEFICIENT LESS THAN 3.4 NG/ML ID Date Data Source [id number] 04/06/2020 09:58:00 AM EST MEDENT ([facility]) Name Value Range Interpretation Code Description Data Teresa rce(s) Supporting Document(s) Free T4 0.95 ng/dL 0.76-1.46 Normal (applies to non-numeric resul ts) [facility] ([facility]) Thyroid Stimulating Hormone 0.409 uIU/ML 0.358-3.740 Norm al (applies to non- numeric results) [facility] ([facility]) ID Date Data Source [id number] 04/06/2020 09:58:00 AM EST MEDENT ([facility]) Name Value Range Interpretation Code Description Data Teresa rce(s) Supporting Document(s) Hemoglobin A1c 6.5 % Normal (applies to non-numeric r esults) [facility] ([facility]) <content>REFERENCE RANGES:</content><br/ ><content></content>
<content><=5.6% NORMAL</content>
<content>5.7-6.4% SUGGESTS IMPAIRED GLUCOSE METABOLISM/PREDIABETIC</content>
<content>>= 6.5% ABNORMAL</content>
<content></content> Estimated Average Glucose 140 mg/dL 60-110 Above high normal [facility] ([facility]) ID Date Data Source [id number] 04/06/2020 09:58:00 AM EST MEDENT ([facility]) Name Value Range Interpretation Code Description Data Teresa rce(s) Supporting Document(s) Iron (Fe) 53 ug/dL 50-170 Normal (applies to non-numeric resul ts) [facility] ([facility]) Total Iron Binding Capacity 279 ug/dL 250-450 Norm al (applies to non-numeric results) [facility] ([facility]) Percent Saturation 19.0 % 13.2-45.0 Normal (applies to non-numer ic results) [facility] ([facility]) ID Date Data Source [id number] 04/06/2020 09:58:00 AM EST [facility] ([facility]) Name Value Range Interpretation Code Description Data Teresa rce(s) Supporting Document(s) Glucose, Fasting 182 mg/dL 70-100 Above high normal [facility] Glomerular Filtration Rate Laboratory test result Normal (applies to non- numeric results) [facility] ([facility]) <content>Units are mL/min/1.73 m2</content>
<content></content>
<content>Chronic Kidney Disease Staging per NKF:</content>
<content></content>
<content>Stage I & II GFR >=60 Normal to Mildly Decreased</content>
<content>Stage III GFR 30- 59 Moderately Decreased</content>
<content>Stage IV GFR 15-29 Severely Decreased</content>
<content>Stage V GFR <15 Very Little GFR Left</content>
<content>ESRD GFR <15 on GAS WE[employer] PUMPER</content>
<content></content> Blood Urea Nitrogen 12 mg/dL 7-18 Normal (applies to non-nume cecilia results) [facility] ([facility]) Creatinine For GFR 0.79 mg/dL 0.55-1.30 Normal (applies to non -numeric results) [facility] ([facility]) Chloride Level 107 meq/L 98-107 Normal (applies to non-numeric r esults) [facility] ([facility]) Potassium Serum 4.1 meq/L 3.5-5.1 Normal (applies to non-numeric results) [facility] ([facility]) Sodium Level 141 meq/L 136-145 Normal (applies to non-numeric res ults) [facility] ([facility]) Carbon Dioxide Level 26 meq/L 21-32 Normal (applies to non-num chinmay results) [facility] ([facility]) Anion Gap 8 meq/L 8-16 Normal (applies to non-numeric resul ts) [facility] ([facility]) Ast/Sgot 6 U/L 7-37 Below low normal [facility] ( [facility]) Alkaline Phosphatase 84 U/L 45-117 Normal (applies to non-num chinmay results) [facility] ([facility]) Alt/SGPT 24 U/L 12-78 Normal (applies to non-numeric resul ts) [facility] ([facility]) Calcium Level 9.1 mg/dL 8.5-10.1 Normal (applies to non-numeric re sults) [facility] ([facility]) Total Protein 7.0 GM/DL 6.4-8.2 Normal (applies to non-numeric re sults) [facility] ([facility]) Bilirubin,Total 0.2 mg/dL 0.2-1.0 Normal (applies to non-numeric results) [facility] ([facility]) Albumin 3.2 GM/DL 3.2-5.2 Normal (applies to non-numeric resul ts) [facility] ([facility]) Albumin/Globulin Ratio 0.8 1.2-2.2 Below low normal [facility] ([facility]) ID Date Data Source [id number] 03/27/2020 11:59:00 AM EST [facility] ([facility]) Name Value Range Interpretation Code Description Data Teresa rce(s) Supporting Document(s) Inhouse Leukocytes Laboratory test result [facility] ([facility]) Inhouse Urobilinogen Laboratory test result [facility] ([facility]) Inhouse Protein Laboratory test result [facility] ([facility]) Inhouse Nitrite Laboratory test result [facility] ([facility]) Inhouse Specific [place] 1.010 [facility] ([facility]) Inhouse PH 8 [facility] ([facility]) Inhouse Hemoglobin Laboratory test result [facility] ([facility]) Inhouse Glucose Laboratory test result [facility] ([facility]) Inhouse Ketones Laboratory test result [facility] ([facility]) Inhouse Bilirubin Laboratory test result [facility] ([facility]) ID Date Data Source [id number] 03/04/2020 12:00:00 AM EST [facility] Amelia DEL ROSARIO Patient Name: DOMONIQUE TAVERAS [facility] Date of : 1975[place] [address] Date of Exam: 03/04/2020#: Fax: [phone] EXAM: [...] rce(s) Supporting Document(s) ID Date Data Source [id number] 03/04/2020 12:00:00 AM EST [facility] Amelia DEL ROSARIO Patient Name: DOMONIQUE TAVERAS [facility] Date [place] : 1975[place] [address] Date of Exam: 03/04/2020PH#: Fax: [phone] EXAM: [...] rce(s) Supporting Document(s) ID Date Data Source [id number] 02/29/2020 01:00:00 PM EST [facility] Name Value Range Interpretation Code Description Data Teresa rce(s) Supporting Document(s) SARS coronavirus 2 RNA [facility] This lab was ordered by [facility] and reported by [facility]. ID Date Data Source [id number] 02/06/2020 03:25:08 PM EDT Laboratory [place] [...] - CORE MPV 8.4 fL (7.1-10.7) Laboratory [place] [facility] - CORE NEUT % 49.9 % (35.0-75.0) [facility] - CORE LYMPH % 38.7 % (16.0-52.0) [facility] - CORE MONO % 7.1 % (0.0-8.0) Laboratory [place] [facility] - CORE EOS % 4.1 % (0.0-5.0) [facility] [place] [facility] - CORE BASO % 0.2 % (0.0-4.0) Laboratory [place] [facility] - CORE NEUT # 6.1 10*3/uL (1.8-7.7) [facility] - [facility] LYMPH # 4.7 10*3/uL (1.2-4.8) [facility] - CORE MONO # 0.9 10*3/uL (0.0-0.8) H [facility] - CORE Eosinophils [#/volume] in Blood by Automated count 0.5 10*3/uL (0.0-0 .5) Laboratory [place] [facility] - CORE BASO # 0.0 10*3/uL (0.0-0.2) [facility] - CORE ID Date Data Source [id number] 02/06/2020 03:31:53 PM EDT Laboratory [facility] [facility] Name Value Range Interpretation Code Description Data Teresa rce(s) Supporting Document(s) HEMOGLOBIN A1C @ 6.5 % (4.0-6.0) H [facility] [facility] Performed using Siemens Hallowell immunoassa y.Care must be taken when interpreting [id number] in patients with a hemoglobin variantor decreased erythrocyte lifespan. Values 5.7 - 6.4% suggest prediabetes.Values >=6.5% are diagnostic for diabetes.REFERENCE: DIABETES CARE 2018: 41(S13-S27). EST AVERAGE GLUCOSE 140 mg/dL [facility] [place] [facility] [place] [facility] ID Date Data Source [id number] 02/06/2020 03:53:28 PM EDT [facility] Name Value Range Interpretation Code Description Data Teresa rce(s) Supporting Document(s) VITAMIN B12 @ 1396 pg/mL (193-986) H [facility] [facility] ID Date Data Source [id number] 02/06/2020 03:53:28 PM EDT [facility] Name Value Range Interpretation Code Description Data Teresa rce(s) Supporting Document(s) SODIUM 143 mmol/L (136-145) [facility] [place] [facility] [facility] POTASSIUM 4.5 mmol/L (3.6-5.2) [facility] [place] [facility] [facility] CHLORIDE 109 mmol/L (100-108) H [facility] [place] [facility] [facility] CO2 30 mmol/L (22-31) [facility] [place] [facility] ANION GAP 4 mmol/L (7-16) L [facility] [place] [facility] [facility] UREA NITROGEN 10 mg/dL (7-24) [facility] [facility] CREATININE 0.75 mg/dL (0.60-1.00) [facility] [facility] BUN/CREAT RATIO 13.3 RATIO (10.0-20.0) [facility] [place] [facility] [place] [facility] GLUCOSE 108 mg/dL (70-99) H [facility] [place] [facility] [facility] CALCIUM 9.0 mg/dL (8.4-10.2) [facility] [place] [facility] [facility] TOTAL PROTEIN 6.6 g/dL (6.4-8.2) [facility] [facility] ALBUMIN 3.2 g/dL (3.5-4.6) L [facility] [place] [facility] [facility] GLOBULIN 3.4 g/dL (2.7-4.3) [facility] [place] [facility] [place] [facility] ALB/GLOB RATIO 0.9 RATIO [facility] ALKALINE PHOSPHATASE 86 U/L (45-117) Laborator [facility] [place] [facility] [place] [facility] BILIRUBIN,TOTAL 0.2 mg/dL (0.0-1.0) [facility] PLEASE NOTE:Total bilirubin results may be falselyelevated in patients taking Eltrombopag. AST (SGOT) 13 U/L (11-39) [facility] [place] [facility] [place] [facility] ALT (SGPT) 23 U/L (12-78) [facility] [place] [facility] GFR >60 ml/min/1.73m2 (>59) [facility] [facility] GFR ( AMER) >60 ml/min/1.73m2 (>59) [facility] [place] [facility] [place] [facility] GFR INTERPRETATION [facility] [place] [facility] --NORMAL KIDNEY FUNCTION OR MILD DISEASE - GFR >OR= 60CHRONIC KIDNEY DISEASE - GFR 15 - 59RENAL FAILURE - GFR <15 Est. GFR calculation based on the MDRDstudy equation, which assumes a steadystate for creatinine. Est. GFR should notbe used for medication dosing. ID Date Data Source [id number] 02/06/2020 03:53:28 PM EDT Laboratory [facility] [employer] - C[facility] Name Value Range Interpretation Code Description Data Teresa rce(s) Supporting Document(s) IRON,TOTAL @ 49 ug/dL (35-150) Laboratory [facility] - C[facility] UIBC @ 201 ug/dL (130-375) [facility] [place] [facility] [employer] - C[facility] TIBC @ 250 ug/dL (250-450) [facility] [place] [facility] [employer] - [facility] % SATURATION 20 % (12-50) Laboratory [facility] [employer] - C[facility] ID Date Data Source [id number] 02/06/2020 03:53:28 PM EDT Laboratory [facility] [employer] - [facility] Name Value Range Interpretation Code Description Data Teresa rce(s) Supporting Document(s) MAGNESIUM 2.3 mg/dL (1.7-2.4) [facility] [place] [facility] [employer] - C[facility] ID Date Data Source [id number] 02/06/2020 03:53:28 PM EDT Laboratory [facility] [employer] - [facility] Name Value Range Interpretation Code Description Data Teresa rce(s) Supporting Document(s) PHOSPHORUS 3.4 mg/dL (2.5-4.5) [facility] [place] [facility] [employer] - C[facility] ID Date Data Source [id number] 02/06/2020 03:53:28 PM EDT [facility] [employer] - [facility] Name Value Range Interpretation Code Description Data Teresa rce(s) Supporting Document(s) FERRITIN @ 51 ng/mL (8-252) [facility] [place] [facility] [employer] - C[facility] ID Date Data Source [id number] 02/06/2020 04:18:55 PM EDT Laboratory [facility] [employer] - [facility] Name Value Range Interpretation Code Description Data Teresa rce(s) Supporting Document(s) 25 HYDROXY VIT D @ 55 ng/mL (31-100) Laboratory [place] [facility] A REVIEW OF THE LITERATURE SUGGESTS THEF OLLOWING RANGES FOR THE CLASSIFICATIONOF 25-OH VITAMIN D STATUS: VITAMIN D STATUS 25-OH VITAMIN D DEFICIENCY <20 NG/MLINSUFFICIENCY 20-30 NG/MLSUFFICIENCY 31 - 100 NG/MLTOXICITY > 100 NG/ML A PEDIATRIC REFERENCE RANGE HAS NOT BEENESTABLISHED USING THIS METHOD. ID Date Data Source [id number] 02/09/2020 06:25:31 AM EDT Laboratory [facility] Name Value Range Interpretation Code Description Data Teresa rce(s) Supporting Document(s) SR HCT 37.9 % Laboratory [place] [facility] FOLATE RBC Laboratory [place] [facility] See NoteReference range: >=366 RBC FOLAT E result is greater than 1236 ng/mL Performed By: [employer] [address] [place] [id number] [employer] Machine: Annamaria Jennings MD ID Date Data Source [id number] 11/06/2019 12:00:00 AM EDT [facility] Amleia DEL ROSARIO Patient Name: STELLA TAVERAS [id number] [facility] Date of : 1975[place] [address] Date of Exam: 11/06/2019#: Fax: [phone] EXAM: MRI HIP LEFT WITHOUT CONTRASTCLINICAL INFORMATION: Left hip pain x 3 months. No trauma.There are no prior left hip MRI's for comparison.3T multiplanar MRI imaging of the left hip was obtained using varioussequences.Standard large rlger-qo-zeet T1 and STIR imaging of the pelvis [...] a change whencompared to the prior large lghrk-fz-evax images. There is left hipmarginal osteophytosis which has developed. There is an unchangedincidental synovial herniation pit on the left. There is T2 hypersignal inthe left hip trochanteric tendinobursal region. Degenerative changes areseen involving the imaged portion of the spine. The sacroiliac joints areunchanged.Dedicated small bmzux-wv-sosy magnified images of the left hip show [...] findings and limitationsas described above.Accredited by the [employer] in MR.DARRICK Andrade/Edda you for referring STELLA TAVERAS to our office. Electronically Signed - MARTHA DANIELS DO 11/07/19 11:59 Name Value Range Interpretation Code Description Data Teresa rce(s) Supporting Document(s) ID Date Data Source [id number] 11/02/2019 02:00:00 PM PAUL BLACK ([facility]) Name Value Range Interpretation Code Description Data Teresa rce(s) Supporting Document(s) Reported Physicians See Note Reported Physici saima BLACK ([facility]) Note: Reported Physicians:Ordering: Amelia [id number]: Christopher Woo To: Christopher Woo To: Orville Iverson ID Date Data Source [id number] 11/02/2019 02:00:00 PM EDT [place] ([facility]) Name Value Range Interpretation Code Description Data Teresa rce(s) Supporting Document(s) CORONAVIRUS 2019 NASOPHARYGEAL See Note CORON AVIRUS 2019 NASOPHARYGEAL [place] ([facility]) Note: Testing was performed using the nc bas(R) SARS-CoV-2 test.This test was developed and its performance characteristicsdetermined by [employer]. This test has not beenFDA cleared or [...] in this ass ay.Performed at: - [facility] [place] [id number] Director: Eufemia Simpson MD, Phone: [phone] Detected Notes [TIMP] See Note NOTES [place] ([facility]) Note: Comments: COVID TEST ID Date Data Source [id number] 11/02/2019 02:00:00 PM EDT [facility] Name Value Range Interpretation Code Description Data Teresa rce(s) Supporting Document(s) SARS coronavirus 2 RNA [facility] This lab was ordered by [facility] and reported by [facility]. ID Date Data Source [id number] 10/10/2019 10:15:00 AM EDT [place] ([facility]) Name Value Range Interpretation Code Description Data Teresa rce(s) Supporting Document(s) Reported Physicians See Note Reported Physici ans [place] ([facility]) Note: Reported Physicians:Ordering: Cirilo on, Orville MAttending: ZAYRA, LAWRENCEReferring: ZAYRA, LAWRENCEConsulting: AMPARO, JOCELYNCopy To: Zayra, LawrenceCopy To: Amparo, Nelly ID Date Data Source [id number] 10/10/2019 10:15:00 AM EDT [place] ([facility]) Name Value Range Interpretation Code Description Data Teresa rce(s) Supporting Document(s) CULTURE URINE See Note CULTURE URINE [place] ([facility]) Note: _CULTURE URINE_ $[id number]$$[id number]$$895243$$382390$$261349$$849500$$234596$$999430$$191702$$326533$$078395$$ 30$$983999$$245508$$008062$$421482$$549306 332388$$357800$$408489$$916045 -- Continued on next page --Patient: DARCY Ferreira Order: [id number] Page 2Culture: CULTURE URINE Status: Final ====$$[id number]$$[id number] DATE/TIME: 10/13/2019 07:06Culture: CULTURE URINE Status: FinalUrine Culture,Comprehensive: N0Xeuts urogenital flora10,000-25,000 colony forming units per mLIsolate [...] group B Flag: AP1 Test performed by: [facility] #: [id number] [address] [place] [address] [id number] [facility] [phone] Director : Calvin Jaeger MD NPI #:Car Pre Cooler : [email or web address] REF ID Date Data Source [id number] 10/13/2019 09:12:00 AM EDT [facility] Name Value Range Interpretation Code Description Data Teresa rce(s) Supporting Document(s) CULTURE URINE [facility] _CULTURE URINE_$$[id number]$$[id number]$$144809$$225855$$531516$$475897$$723829$$509483$$432831$$ 993483$$150183$$268333$$263755$$999956$$880708$$294877$$618488$$168565$$280427$$ 753003$$632574$$802244$$033068$$498926$$208185$$107737$$774149 -- Continued on next page --Patient: DARCY Ferreira Order: [id number] Page 2Culture: CULTURE URINE Status: Final ====$$[id number]$$[id number] DATE/TIME: 10/13/2019 07:06Culture: CULTURE URINE Status: FinalUrine Culture,Comprehensive: A2Oetlr urogenital flora10,000-25,000 colony forming units per mLIsolate [...] group B Flag: AP1 Test performed by: [facility] #: [id number] [address] [place] [address] [id number] [facility] [phone] Director : Calvin Jaeger MD NPI #:Car Pre Cooler : [email or web address] REF ID Date Data Source [id number] 10/01/2019 11:19:00 AM EDT [facility] ([facility]) Name Value Range Interpretation Code Description Data Teresa rce(s) Supporting Document(s) Bacteria identified in Urine by Culture Laboratory test result [facility] ([facility]) rx nitrofurantioin ID Date Data Source [id number] 09/15/2019 12:00:00 AM EDT [place] ([facility]) Name Value Range Interpretation Code Description Data Teresa rce(s) Supporting Document(s) Reported Physicians See Note Reported Physici ans [place] ([facility]) Note: Reported Physicians:Ordering: Amelia Tenorio [id number]: Christopher oWo To: Christopher Woo To: Orville Iverson ID Date Data Source [id number] 09/15/2019 12:00:00 AM EDT [place] ([facility]) Name Value Range Interpretation Code Description Data Teresa rce(s) Supporting Document(s) CORONAVIRUS 2019 NASOPHARYGEAL See Note CORON AVIRUS 2019 NASOPHARYGEAL [place] ([facility]) Note: This test was developed and its pe rformance characteristicsdetermined by [employer]. This test has not beenFDA cleared or [...] (not detected) result in this assay.Performed at: [place] [id number] Director: Eufemia Simpson MD, Phone: [phone] Detected Notes [TIMP] See Note NOTES [place] ([facility]) Note: Comments: COVID TESTING ID Date Data Source [id number] 09/15/2019 12:00:00 AM EDT [facility] Name Value Range Interpretation Code Description Data Teresa rce(s) Supporting Document(s) SARS CORONAVIRUS 2 RNA [facility] This lab was ordered by [facility] and reported by [facility]. ID Date Data Source [id number] 09/08/2019 10:29:00 AM EDT [place] ([facility]) Name Value Range Interpretation Code Description Data Teresa rce(s) Supporting Document(s) Reported Physicians See Note Reported Graciela BLACK ([facility]) Note: Reported Physicians:Ordering: Taye lipscomb [id number]: Darnell Handy To: Darnell Handy To: Orville Iverson ID Date Data Source [id number] 09/08/2019 10:29:00 AM EDT [place] ([facility]) Name Value Range Interpretation Code Description Data Teresa rce(s) Supporting Document(s) TOTAL 25(OH) VITAMIN D 63.5 NG/ML Normal TOTAL 25(OH) VITAMIN D [facility]) ID Date Data Source [id number] 09/08/2019 10:29:00 AM EDT [place] ([facility]) Name Value Range Interpretation Code Description Data Teresa rce(s) Supporting Document(s) Reported Physicians See Note Reported Physici ans [place] ([facility]) Note: Reported Physicians:Ordering: Taye er [id number] AAttending: Darnell Handy To: Darnell Handy To: Orville Iverson ID Date Data Source [id number] 09/08/2019 10:29:00 AM EDT [place] ([facility]) Name Value Range Interpretation Code Description Data Teresa rce(s) Supporting Document(s) PHOSPHORUS LEVEL 2.7 MG/DL Normal PHOSPHORUS LEVEL [facility]) ID Date Data Source [id number] 09/08/2019 10:29:00 AM EDT [place] ([facility]) Name Value Range Interpretation Code Description Data Teresa rce(s) Supporting Document(s) Reported Physicians See Note Reported Physici ans [place] ([facility]) Note: Reported Physicians:Ordering: Taye er [id number] Fieldstending: Darnell Handy To: Darnell Handy To: Orville Iverson ID Date Data Source [id number] 09/08/2019 10:29:00 AM EDT [place] ([facility]) Name Value Range Interpretation Code Description Data Teresa rce(s) Supporting Document(s) IRON (FE) 84 UG/DL Normal IRON (FE) [place] ([facility]) TOTAL IRON BINDING CAPACITY 224 UG/DL Below low nor mal TOTAL IRON BINDING CAPACITY [place] ([facility]) PERCENT SATURATION 37.5 % Normal PERCENT SATURATIO N [facility]) ID Date Data Source [id number] 09/08/2019 10:29:00 AM EDT [place] ([facility]) Name Value Range Interpretation Code Description Data Teresa rce(s) Supporting Document(s) Reported Physicians See Note Reported [facility] ([facility]) Note: Reported Physicians:Ordering: Anabellb er [id number], uT Lane: Darnell Handy To: Darnell Handy To: Orville Iverson ID Date Data Source [id number] 09/08/2019 10:29:00 AM EDT [place] ([facility]) Name Value Range Interpretation Code Description Data Teresa rce(s) Supporting Document(s) Ferritin [Interpretation] in Blood 50 NG/ML Normal F ERRITIN [place] ([facility]) ID Date Data Source [id number] 09/08/2019 10:29:00 AM EDT [place] ([facility]) Name Value Range Interpretation Code Description Data Teresa rce(s) Supporting Document(s) Reported Physicians See Note Reported [facility] ([facility]) Note: Reported Physicians:Ordering: Taye er [id number], Tu Lane: Darnell Handy To: Darnell Handy To: Orville Iverson ID Date Data Source [id number] 09/08/2019 10:29:00 AM EDT [place] ([facility]) Name Value Range Interpretation Code Description Data Teresa rce(s) Supporting Document(s) Hemoglobin A1c in Blood 6.3 % Normal HEMOGLOBIN A [address] [place] [address] ([facility]) Note: REFERENCE RANGES: 4.5-5.6% NOR MAL 5.7-6.4% SUGGESTS IMPAIRED GLUCOSE METABOLISM >= 6.5% ABNORMAL Glucose mean value [Moles/volume] in Blood Estimated f rom glycated hemoglobin 134 MG/DL Above high normal ESTIMATED AVERAGE GLUCOSE YOKO ESPINO ([facility]) ID Date Data Source [id number] 09/08/2019 10:29:00 AM EDT [place] ([facility]) Name Value Range Interpretation Code Description Data Teresa rce(s) Supporting Document(s) Reported Physicians See Note Reported [facility] ([facility]) Note: Reported Physicians:Ordering: Anabellb er [id number], Tu Zuletatengema: Darnell Handy To: Darnell Handy To: Orville Iverson ID Date Data Source [id number] 09/08/2019 10:29:00 AM EDT [place] ([facility]) Name Value Range Interpretation Code Description Data Teresa rce(s) Supporting Document(s) WHITE BLOOD COUNT 13.5 3/uL Above high normal WHITE BLOOD COUNT [facility]) RED BLOOD COUNT 4.42 6/uL Normal RED BLOOD COUNT GREE [facility]) Hemoglobin [Mass/volume] in Mixed venous blood by Oximetry 14.2 g/d l Normal HEMOGLOBIN [facility]) Hematocrit [Pure volume fraction] of Blood by Automated count 41.2 % Normal HEMATOCRIT [facility]) MEAN CORPUSCULAR VOLUME 93.2 fl Normal MEAN CORPUSC ULAR VOLUME [facility]) MEAN CORPUSCULAR HEMOGLOBIN 32.1 pg Normal MEAN COR PUSCULAR HEMOGLOBIN [facility]) MEAN CORPUSCULAR HGB CONC 34.5 g/dl Normal MEAN CORPU SCULAR HGB CONC [facility]) RED CELL DISTRIBUTION WIDTH 13.6 % Normal RED CELL DISTRIBUTION WIDTH [facility]) PLATELET COUNT, AUTOMATED 351 3/uL Normal PLATELET C OUNT, AUTOMATED [place] ([facility]) NUCLEATED RED BLOOD CELL % 0.0 % Normal NUCLEATED RED BLOOD CELL % [place] ([facility]) ID Date Data Source [id number] 09/08/2019 10:29:00 AM EDT [place] ([facility]) Name Value Range Interpretation Code Description Data Teresa rce(s) Supporting Document(s) Reported Physicians See Note Reported Physici ans [facility]) Note: Reported Physicians:Ordering: Taye lipscomb [id number], Tu AAttending: Darnell Handy To: Darnell Handy To: Orville Iverson ID Date Data Source [id number] 09/08/2019 10:29:00 AM EDT [place] ([facility]) Name Value Range Interpretation Code Description Data Teresa rce(s) Supporting Document(s) NEUTROPHILS % 55.8 % Normal NEUTROPHILS % [place] ([facility]) LYMPH % 33.4 % Normal LYMPH % [place] ([facility]) MONO % 5.8 % Above high normal MONO % [place] ([facility]) EOS % 4.1 % Above high normal EOS % [place] ([facility]) BASO % 0.4 % Normal BASO % [place] ([facility]) IMMATURE GRANULOCYTE % 0.5 % Normal IMMATURE GRAN ULOCYTE % [place] ([facility]) NEUTROPHILS # 7.5 3/uL Normal NEUTROPHILS # [place] ([facility]) LYMPH # 4.5 3/uL Normal LYMPH # [place] ([facility]) MONO # 0.8 3/uL Normal MONO # [place] ([facility]) EOS # 0.6 3/uL Above high normal EOS # [place] ([facility]) BASO # 0.1 3/uL Normal BASO # [place] ([facility]) ID Date Data Source [id number] 09/08/2019 10:29:00 AM EDT [place] ([facility]) Name Value Range Interpretation Code Description Data Teresa rce(s) Supporting Document(s) Reported Physicians See Note Reported Physici ans [place] ([facility]) Note: Reported Physicians:Ordering: Taye lipscomb [id number] AAttending: Darnell Handy To: Darnell Handy To: Orville Iverson ID Date Data Source [id number] 09/08/2019 10:29:00 AM EDT [place] ([facility]) Name Value Range Interpretation Code Description Data Teresa rce(s) Supporting Document(s) GLUCOSE, FASTING 147 MG/DL Above high normal GLUCOSE, FAS TING [place] ([facility]) BLOOD UREA NITROGEN 8 MG/DL Normal BLOOD UREA NITRO GEN [place] ([facility]) CREATININE FOR GFR 0.68 MG/DL Normal CREATININE FOR GF R [place] ([facility]) GLOMERULAR FILTRATION RATE > 60.0 Normal GLOMERULA R FILTRATION RATE [place] ([facility]) Note: Units are mL/min/1.73 m2 Chroni c Kidney Disease Staging per NKF: Stage I & II GFR >=60 Normal to Mildly Decreased Stage III GFR 30- 59 Moderately Decreased Stage IV GFR 15-29 Severely Decreased Stage V GFR <15 Very Little GFR Left ESRD GFR <15 on GAS WELL PUMPER SODIUM LEVEL 141 MEQ/L Normal SODIUM LEVEL [place] ( [facility]) POTASSIUM SERUM 3.7 MEQ/L Normal POTASSIUM SERUM [facility] ([facility]) CHLORIDE LEVEL 108 MEQ/L Above high normal CHLORIDE LEVEL [place] ([facility]) CARBON DIOXIDE LEVEL 26 MEQ/L Normal CARBON DIOXIDE LEVEL [place] ([facility]) Anion gap in Body fluid 7 MEQ/L Below low normal ANION GAP [place] ([facility]) CALCIUM LEVEL 8.8 MG/DL Normal CALCIUM LEVEL [place] ([facility]) AST/SGOT 9 U/L Normal AST/SGOT [place] ([facility]) ALT/SGPT 18 U/L Normal ALT/SGPT [place] ([facility]) Alkaline phosphatase [Enzymatic activity/volume] in Se rum, Plasma or Blood 83 U/L Normal ALKALINE PHOSPHATASE [facility]) BILIRUBIN,TOTAL 0.5 MG/DL Normal [facility],TOTAL [facility]) TOTAL PROTEIN 6.7 GM/DL Normal TOTAL PROTEIN [place] ([facility]) Albumin [Mass/volume] in Blood by Bromocresol purple ( BCP) dye binding method 3.2 GM/DL Normal ALBUMIN [facility]) ALBUMIN/GLOBULIN RATIO 0.9 Below low normal ALBUMIN /GLOBULIN RATIO [place] ([facility]) ID Date Data Source [id number] 09/08/2019 10:29:00 AM EDT [place] ([facility]) Name Value Range Interpretation Code Description Data Teresa rce(s) Supporting Document(s) Reported Physicians See Note Reported Physici ans [place] ([facility]) Note: Reported Physicians:Ordering: Taye lipscomb [phone]: Darnell Handy To: Darnell Handy To: Orville Iverson ID Date Data Source [id number] 09/08/2019 10:29:00 AM EDT [place] ([facility]) Name Value Range Interpretation Code Description Data Teresa rce(s) Supporting Document(s) MAGNESIUM LEVEL 1.9 MG/DL Normal MAGNESIUM LEVEL YOKO ESPINO [facility]) ID Date Data Source [id number] 09/08/2019 10:29:00 AM EDT [place] ([facility]) Name Value Range Interpretation Code Description Data Teresa rce(s) Supporting Document(s) Reported Physicians See Note Reported Physic ans [place] ([facility]) Note: Reported Physicians:Ordering: Taye er [id number], Tu Lane: Darnell Handy To: Darnell Handy To: Orville Iverson ID Date Data Source [id number] 09/08/2019 10:29:00 AM EDT [place] ([facility]) Name Value Range Interpretation Code Description Data Teresa rce(s) Supporting Document(s) VITAMIN B12 LEVEL 1656 PG/ML Above high normal VITAMIN B12 LEVEL [facility]) Note: VITAMIN B12 NORMAL RANGE NORMAL 247 - 911 PG/ML INDETERMINATE 211 - 246 PG/ML DEFICIENT LESS THAN 211 PG/ML ID Date Data Source [id number] 09/08/2019 10:29:00 AM EDT [place] ([facility]) Name Value Range Interpretation Code Description Data Teresa rce(s) Supporting Document(s) Reported Physicians See Note Reported Physic ans [place] ([facility]) Note: Reported Physicians:Ordering: Anabellb er [id number], uT AAttending: Darnell Handy To: Darnell Handy To: Orville Iverson ID Date Data Source [id number] 09/08/2019 10:29:00 AM EDT [place] ([facility]) Name Value Range Interpretation Code Description Data Teresa rce(s) Supporting Document(s) Hematocrit [Pure volume fraction] of Blood by Automated count 41.5 % Normal HEMATOCRIT [place] ([facility]) RBC FOLATE 607 NG/ML Normal RBC FOLATE [place] ([facility]) ID Date Data Source [id number] 08/21/2019 12:50:00 PM EDT [place] ([facility]) Name Value Range Interpretation Code Description Data Teresa rce(s) Supporting Document(s) Reported Physicians See Note Reported Physici ans [place] ([facility]) Note: Reported Physicians:Ordering: Nelly Kumar AAttending: Renee Christensen To: Renee Christensen To: Orville Iverson ID Date Data Source [id number] 08/21/2019 12:50:00 PM EDT [place] ([facility]) Name Value Range Interpretation Code Description Data Teresa rce(s) Supporting Document(s) APPEARANCE, URINE CLEAR Normal APPEARANCE, URINE SOFIA ([facility]) COLOR, URINE YELLOW Normal COLOR, URINE SOFIA ( [facility]) PH,URINE 7.0 UNITS Normal PH,URINE SOFIA ([facility]) SPECIFIC GRAVITY URINE AUTO 1.004 Normal SPECIFIC GRAVITY URINE AUTO SOFIA ([facility]) PROTEIN, URINE AUTO NEGATIVE mg/dL Normal PROTEIN, URI NE AUTO SOFIA ([facility]) GLUCOSE, URINE (UA) AUTO NEGATIVE mg/dL Normal GLUCOSE , URINE (UA) AUTO SOFIA ([facility]) KETONE, URINE AUTO NEGATIVE mg/dL Normal KETONE, URINE AUTO SOFIA ([facility]) UROBILINOGEN, URINE AUTO 0.2 mg/dL Normal UROBILINOGE N, URINE AUTO SOFIA ([facility]) BILIRUBIN, URINE AUTO NEGATIVE Normal BILIRUBIN, URI NE AUTO SOFIA ([facility]) NITRITE, URINE AUTO NEGATIVE Normal NITRITE, URINE A UTO SOFIA ([facility]) LEUKOCYTE ESTERASE, URINE AUTO NEGATIVE Normal LEUKO CYTE ESTERASE, URINE AUTO SOFIA ([facility]) BLOOD, URINE BLOOD NEGATIVE Normal BLOOD, URINE BLOO D SOFIA ([facility]) WBC, URINE AUTO 1 /HPF Normal WBC, URINE AUTO GREE NW ([facility]) RBC, URINE AUTO 0 /HPF Normal RBC, URINE AUTO GREE NW ([facility]) BACTERIA, URINE AUTO NEGATIVE Normal BACTERIA, URINE AUTO SFOIA ([facility]) SQUAMOUS EPITHELIAL CELL UR AU 1 /HPF Normal SQUAM OUS EPITHELIAL CELL UR AU SOFIA ([facility]) HYALINE CAST, URINE AUTO 0 /LPF Normal HYALINE FREDERICK T, URINE AUTO SOFIA ([facility]) ID Date Data Source [id number] 08/21/2019 12:50:00 PM EDT ODES[place] ([facility]) Name Value Range Interpretation Code Description Data Teresa rce(s) Supporting Document(s) Reported Physicians See Note Reported Physici ans [place] ([facility]) Note: Reported Physicians:Ordering: Nelly Kumar AAttending: Tamica ChristensenynCopy To: More ChristensencelynCopy To: Orville Iverson ID Date Data Source [id number] 08/21/2019 12:50:00 PM EDT [place] ([facility]) Name Value Range Interpretation Code Description Data Teresa rce(s) Supporting Document(s) URINE CULTURE See Note Normal URINE CULTURE [place] ([facility]) Note: FULL REPORT IN LAB NOTES (eCW and Medent).NO GROWTH CLINICAL SIGNIFICANCE 1 ORGANISM ID Date Data Source [id number] 07/11/2019 10:00:00 AM EDT [place] ([facility]) Name Value Range Interpretation Code Description Data Teresa rce(s) Supporting Document(s) Reported Physicians See Note Reported Physici ans [place] ([facility]) Note: Reported Physicians:Ordering: Orville Felix MAttending: ORVILLE IVERSONReferring: ORVILLE IVERSONConsulting: AMPARO JOCELYNCopy To: Orville IversonCopnava To: Nelly Christensen ID Date Data Source [id number] 07/11/2019 10:00:00 AM EDT [place] ([facility]) Name Value Range Interpretation Code Description Data Teresa rce(s) Supporting Document(s) Bilirubin [Presence] in Peritoneal fluid NEG BILIRUBIN SOFIA ([facility]) Note: Responsible Observer: (NH) Blood [Presence] in Urine by Visual NEG BLOOD [place] ([facility]) Note: Responsible Observer: (NH) Clarity of Pleural fluid from Fetus clear CLARITY SOFIA ([facility]) Note: Responsible Observer: (NH) Color of Exudate from wound yellow COLOR SOFIA ([facility]) Note: Responsible Observer: (NH) Glucose [Mass/volume] in Urine collected for unspecified duration N ORM GLUCOSE SOFIA ([facility]) Note: Responsible Observer: (NH) KETONE NEG KETONE [place] ([facility]) Note: Responsible Observer: (NH) LEUK EST NEG LEUK EST SOF[place] ([facility]) Note: Responsible Observer: (NH) MICROSCOPIC Not Indicate MICROSCOPIC SOFIA ([facility]) Note: Responsible Observer: (NH) Nitrite [Presence] in Urine by Test strip NEG NITRITE [place] ([facility]) Note: Responsible Observer: (NH) pH of Vaginal fluid by Test strip 7 pH SOFIA ([facility]) Note: Responsible Observer: (NH) Protein [Mass/volume] in Saliva (oral fluid) NEG PROTEIN SOFIA ([facility]) Note: Responsible Observer: (NH) SPEC GRAVITY 1.010 SPEC GRAVITY [place] ([facility]) Note: Responsible Observer: (NH) Urobilinogen [Presence] in Urine by Automated test strip NOR UROBILINOGEN [place] ([facility]) Note: Responsible Observer: (NH) SOURCE R SOURCE SOFIA ([facility]) Note: Responsible Observer: (NH) URINALYSIS See Note URINALYSIS SOFIA ([facility]) Note: URINALYSISResponsible Observer : (NH) ID Date Data Source [id number] 07/11/2019 10:00:00 AM EDT [place] ([facility]) Name Value Range Interpretation Code Description Data Teresa rce(s) Supporting Document(s) Reported Physicians See Note Reported Physici ans [place] ([facility]) Note: Reported Physicians:Ordering: Orville Felixding: Artur Iverson [facility]: [facility] ID Date Data Source [id number] 07/11/2019 10:00:00 AM EDT [place] ([facility]) Name Value Range Interpretation Code Description Data Teresa rce(s) Supporting Document(s) Gram Negative Panel 4 See Note Susceptibl e. Indicates for microbiology susceptibilities only. Gram Negative Panel 4 [place] ([facility]) Note: SUSCEPTIBLE -Cefepime [Susceptibility] by Minimum inhibitory [...] concentration (JACK) >32 ID Date Data Source [id number] 07/11/2019 10:00:00 AM [facility] Name Value Range Interpretation Code Description Data Teresa rce(s) Supporting Document(s) Bacteria identified in Urine by Culture See Note Bacteria Ur Cult [place] ([facility]) Note: ENTCLOENTEROBACTER [id number] 607ENTEROBACTER CLOACAE [place] count [#/volume] in Implant device by Culture Greater than 1 00,000 [place] count [facility]) Notes [TIMP] See Note NOTES [place] ([facility]) Note: @07/13/19 0755: Urine ID Charge ad ded. RFLXG = CHGURID. ID Date Data Source [id number] 07/11/2019 10[facility]00:00 [facility] Name Value Range Interpretation Code Description Data Teresa rce(s) Supporting Document(s) Reported Physicians See Note Reported Physici ans SOFIA ([facility]) Note: Reported Physicians:Ordering: Orville Felix MAttending: ORVILLE IVERSONReferring: ORVILLE IVERSONConsulting: Renee CHRISTENSEN To: Artur Iverson To: Nelly Christensen ID Date Data Source [id number] 07/11/2019 10:00:00 AM [facility] ([facility]) Name Value Range Interpretation Code Description Data Teresa rce(s) Supporting Document(s) [facility] URINE CULTURE See Note [facility] URINE CULT [facility] ([facility]) Note: _CULTURE URINE_ Result: [place] [address] CLIA# [id number] SEE SCANNED REPORT Responsible Observer: (KAY) ID Date Data Source [id number] 07/13/2019 09:52:00 PM EDT [facility] Name Value Range Interpretation Code Description Data Teresa rce(s) Supporting Document(s) [facility] URINE CULTURE [facility] _CULTURE URINE_ Result: [place] [address] CLIA# [id number] SEE SCANNED REPORT ID Date Data Source [id number] 07/11/2019 03:54:00 PM EDT [facility] Name Value Range Interpretation Code Description Data Teresa rce(s) Supporting Document(s) URINALYSIS [facility] k[facility] URINALYSIS SOURCE R [facility] COLOR yellow NORMAL: Yellow [facility] CLARITY clear NORMAL: Clear [facility] Specific gravity of Urine by Test strip 1.010 1.001 - 1.030 [facility] pH 7 5 - [facility] Glucose [Mass/volume] in Urine by Test strip NORM NORMAL: Negat zora [facility] Bilirubin.total [Presence] in Urine by Test strip NEG NORMAL: Negative [facility] Ketones [Presence] in Urine by Test strip NEG NORMAL: Negative [facility] Protein [Mass/volume] in Urine by Test strip NEG NORMAL: Negat zora [facility] Nitrite [Presence] in Urine by Test strip NEG NORMAL: Negative [facility] BLOOD NEG NORMAL: Negative [facility] Leukocyte esterase [Presence] in Urine by Test strip NEG MIRIAM L: Negative [facility] Urobilinogen [Mass/volume] in Urine by Test strip NOR less malka n 1.0 mg/dL [facility] MICROSCOPIC Not Indicate [facility] ID Date Data Source [id number] 06/19/2019 12:43:00 PM EST SOF[place] ([facility]) Name Value Range Interpretation Code Description Data Teresa rce(s) Supporting Document(s) Reported Physicians See Note [facility]) Note: Reported Physicians:Ordering: МАРИЯ BOWERS [id number] MDAttending: Surjit PRATT To: Surjit PRATT To: Orville Iverson ID Date Data Source [id number] 06/19/2019 12:43:00 PM EST SOF[place] ([facility]) Name Value Range Interpretation Code Description Data Teresa rce(s) Supporting Document(s) FLOW CYTOMETRY FOR SEND OUT See Pathology Report Miriam l FLOW CYTOMETRY FOR SEND OUT [place] ([facility]) Note: Testing performed at reference lab . Report copy to follow on a separate form. 07/04/19 REF LAB#:[id number] ID Date Data Source [id number] 06/19/2019 12:37:00 PM EST [place] ([facility]) Name Value Range Interpretation Code Description Data Teresa rce(s) Supporting Document(s) Reported Physicians See Note Reported Physic ans [place] ([facility]) Note: Reported Physicians:Ordering: МАРИЯ OBWERS [id number], LENO MDAttending: Surjit PRATT To: Surjit PRATT To: Orville Iverson ID Date Data Source [id number] 06/19/2019 12:37:00 PM EST [place] ([facility]) Name Value Range Interpretation Code Description Data Teresa rce(s) Supporting Document(s) Ferritin [Interpretation] in Blood 82 NG/ML Normal F ERRITIN [place] ([facility]) ID Date Data Source [id number] 06/19/2019 12:37:00 PM EST [place] ([facility]) Name Value Range Interpretation Code Description Data Teresa rce(s) Supporting Document(s) Reported Physicians See Note Reported Physici ans [place] ([facility]) Note: Reported Physicians:Ordering: МАРИЯ BOWERS [id number], CAROL MDAttending: Surjit PRATT To: Surjit PRATT To: Orville Iverson ID Date Data Source [id number] 06/19/2019 12:37:00 PM EST [place] ([facility]) Name Value Range Interpretation Code Description Data Teresa rce(s) Supporting Document(s) IRON (FE) 99 UG/DL Normal IRON (FE) SOFIA ([facility]) TOTAL IRON BINDING CAPACITY 241 UG/DL Below low nor mal TOTAL IRON BINDING CAPACITY [place] ([facility]) PERCENT SATURATION 41.1 % Normal PERCENT SATURATIO N [place] ([facility]) ID Date Data Source [id number] 06/22/2019 01:17:00 PM [facility] Hematopathology ReportName: CARMEN TAVERAS KMRN: [id number] Number: [id number] Date: 06/19/2019 12:36Received Date: 06/20/2019 14:02Physician(s): NURY VALLES MD, YILIN MDCopy To:[facility]imen(s) ReceivedA: Blood, Flow Cytometry; received 2 green peripheral blood and 2 EDTAperipheral blood to MolecularClinical [id number] female with leukocytosis and lymphocytosis DiagnosisPeripheral blood [...] diagnosis. Microscopic DescriptionPERIPHERAL BLOOD: CBC performed at [facility] on 06/19/2019 White blood cell *13.3 K/uL Red blood cell 4.16 M/uL Hemoglobin 12.9 g/dL Hematocrit 39.5 % Mean cell volume 95 fL Mean cell hemoglobin 31 pg Mean cell Hgb conc 32.7 g/dL Red cell dist width 13.5 % Platelet count 311 K/uLDifferential count (automated):43.9 % Neutrophils 4.4 % Eosinophils 0.5 % Fikrfdtih91.5 % Lymphocytes 6.3 % Monocytes 0.4 % Immature granulocytes--------100.0 %PERIPHERAL BLOOD SMEAR: Leukocytosis with absolute lymphocytosis andslight absolute eosinophilia. Otherwise unremarkable peripheral bloodsmear. ProceduresFlow Cytometry Date Ordered:06/20/2019 Status: Signed Out06/21/2019 InterpretationLymphoid Panel: asterindira Terry [id number] 06/19/2019The following markers were assayed: CD45 (gate), CD2, CD3, CD4, CD5, CD7,CD8, CD10, CD11c, CD19, CD20, CD22, CD23, CD25, CD38, CD56, CD57, CD103,Radnor, Lambda, and FMC7.# events:[id number]: 94%Flow Cytometry Differential (CD45/SSC)Lymphocyte [place]: 36%CD45 dim [place]: 0%Monocyte [place]: 5%Granulocyte [place]: 56%Nucleated/Erythroid [place]: 0%The lymphocyte gate showsB-cells (CD19): 19%Radnor/Lambda Ratio: 1.4T-cells (CD3): 70%NK-cells (CD3- /CD56+): 9%CD4/CD8 Ratio: 8.9Results: (expressed as % of lymphocyte gate)T-cell Markers: CD2 = 79, CD3 = 70, CD3/CD4 = 62, CD3/CD8 = 7, CD5 = 68,CD7 = 76, CD3/57 = 3B-cell markers: Radnor = 11, Lambda = 7, CD19 = 19, CD20 = 20, CD19/10 = 1,CD19/CD5 = 1,CD38/CD20 = 11, CD22 = 20, CD19/CD23 = 11, FMC7 = 16Light chain as % of B-Cells: CD19/Radnor = 54, CD19/Lambda = 38CD19/CD5/Radnor = 3, CD19/CD5/Lambda = 2CD19/CD10/Radnor = 4, CD19/CD10/Lambda = 4CD38 on CD19/5 [...] 7, CD7= 15, CD3/57 = 0B-cell markers: Radnor = 0, Lambda = 0, CD19 = 0, CD20 = 0, CD19/10 = 0,CD19/CD5 = 0,CD38/CD20 = 0, CD22 = 1, CD19/CD23 = 0, FMC7 = 0Light chain as % of B-Cells: CD19/Radnor = 0, CD19/Lambda = 0CD19/CD5/Radnor = 0, CD19/CD5/Lambda = 0CD19/CD10/Radnor = 0, CD19/CD10/Lambda = 0NK cell Markers: [...] were developed and theirperformance characteristics determined by [facility] Pathology department.Th ey have not been cleared or approved by the US Food and DrugAdministration. The FDA has determined that such clearance or approval isnot necessary. Name Value Range Interpretation Code Description Data Teresa rce(s) Supporting Document(s) ID Date Data Source [id number] 06/20/2019 03:22:14 PM EST [facility] Name Value Range Interpretation Code Description Data Teresa rce(s) Supporting Document(s) Flow cytometry study [facility] ID Date Data Source [id number] 06/19/2019 10:15:00 AM EST SOF[place] ([facility]) Name Value Range Interpretation Code Description Data Teresa rce(s) Supporting Document(s) Reported Physicians See Note Reported Physici ans SOF[place] ([facility]) Note: Reported Physicians:Ordering: МАРИЯ BOWERS [id number], CAROL Mckinnonending: Surjit PRATT To: Surjit PRATT To: Orville Iverson ID Date Data Source [id number] 06/19/2019 10:15:00 AM EST [place] ([facility]) Name Value Range Interpretation Code Description Data Teresa rce(s) Supporting Document(s) NEUTROPHILS % 43.9 % Normal NEUTROPHILS % SOFIA ([facility]) LYMPH % 44.5 % Above high normal LYMPH % [place] ([facility]) MONO % 6.3 % Above high normal MONO % SOF[place] ([facility]) EOS % 4.4 % Above high normal EOS % SOF[place] ([facility]) BASO % 0.5 % Normal BASO % [place] ([facility]) IMMATURE GRANULOCYTE % 0.4 % Normal IMMATURE GRAN ULOCYTE % SOF[place] ([facility]) NEUTROPHILS # 5.9 3/uL Normal NEUTROPHILS # SOF[place] ([facility]) LYMPH # 5.9 3/uL Above high normal LYMPH # [place] ([facility]) MONO # 0.8 3/uL Normal MONO # [place] ([facility]) EOS # 0.6 3/uL Above high normal EOS # SOF[place] ([facility]) BASO # 0.1 3/uL Normal BASO # [place] ([facility]) ID Date Data Source [id number] 06/19/2019 10:15:00 AM EST [place] ([facility]) Name Value Range Interpretation Code Description Data Teresa rce(s) Supporting Document(s) Reported Physicians See Note Reported Physici saima [place] ([facility]) Note: Reported Physicians:Ordering: МАРИЯ BOWERS [id number]: Surjit PRATT To: Surjit PRATT To: Orville Iverson ID Date Data Source [id number] 06/19/2019 10:15:00 AM [facility] ([facility]) Name Value Range Interpretation Code Description Data Teresa rce(s) Supporting Document(s) GLUCOSE, FASTING 84 MG/DL Normal [facility] BLOOD UREA NITROGEN 8 MG/DL Normal BLOOD UREA NITRO GEN [place] ([facility]) CREATININE FOR GFR 0.85 MG/DL Normal CREATININE FOR GF R [place] ([facility]) GLOMERULAR FILTRATION RATE > 60.0 Normal GLOMERULA R FILTRATION RATE [place] ([facility]) Note: Units are mL/min/1.73 m2 Chroni c Kidney Disease Staging per NKF: Stage I & II GFR >=60 Normal to Mildly Decreased Stage III GFR 30- 59 Moderately Decreased Stage IV GFR 15-29 Severely Decreased Stage V GFR <15 Very Little GFR Left ESRD GFR <15 on GAS WELL PUMPER SODIUM LEVEL 138 MEQ/L Normal SODIUM LEVEL [facility]) POTASSIUM SERUM 3.3 MEQ/L Below low normal POTASSIUM SERU M [place] ([facility]) CHLORIDE LEVEL 103 MEQ/L Normal CHLORIDE LEVEL [facility]) CARBON DIOXIDE LEVEL 34 MEQ/L Above high normal CARBON D IOXIDE LEVEL [facility]) Anion gap in Body fluid 1 MEQ/L Below low normal ANION GAP [facility]) CALCIUM LEVEL 9.3 MG/DL Normal CALCIUM LEVEL [facility]) AST/SGOT 10 U/L Normal AST/SGOT [place] ([facility]) ALT/SGPT 21 U/L Normal ALT/SGPT [place] ([facility]) Alkaline phosphatase [Enzymatic activity/volume] in Se rum, Plasma or Blood 79 U/L Normal ALKALINE PHOSPHATASE [place] ([facility]) BILIRUBIN,TOTAL 0.4 MG/DL Normal BILIRUBIN,TOTAL GREE [facility] ([facility]) TOTAL PROTEIN 7.2 GM/DL Normal TOTAL PROTEIN [place] ([facility]) Albumin [Mass/volume] in Blood by Bromocresol purple ( BCP) dye binding method 3.1 GM/DL Below low normal ALBUMIN [place] ([facility]) ALBUMIN/GLOBULIN RATIO 0.76 Below low normal ALBUMIN /GLOBULIN RATIO [place] ([facility]) ID Date Data Source [id number] 06/19/2019 10:15:00 AM EST [facility] ([facility]) Name Value Range Interpretation Code Description Data Treesa rce(s) Supporting Document(s) Reported Physicians See Note Reported Physici ans [place] ([facility]) Note: Reported Physicians:Ordering: МАРИЯ BOWERS [id number] MDAttending: Surjit PRATT To: Surjit PRATT To: Orville Iverson ID Date Data Source [id number] 06/19/2019 10:15:00 AM EST [place] ([facility]) Name Value Range Interpretation Code Description Data Teresa rce(s) Supporting Document(s) APPEARANCE, URINE CLEAR Normal APPEARANCE, URINE [place] ([facility]) COLOR, URINE STRAW Normal COLOR, URINE [place] ([facility]) PH,URINE 7.0 UNITS Normal PH,URINE [place] ([facility]) SPECIFIC GRAVITY URINE AUTO 1.004 Normal SPECIFIC GRAVITY URINE AUTO [place] ([facility]) PROTEIN, URINE AUTO NEGATIVE mg/dL Normal PROTEIN, URI NE AUTO [place] ([facility]) GLUCOSE, URINE (UA) AUTO NEGATIVE mg/dL Normal GLUCOSE , URINE (UA) AUTO [place] ([facility]) KETONE, URINE AUTO NEGATIVE mg/dL Normal KETONE, URINE AUTO [place] ([facility]) UROBILINOGEN, URINE AUTO 0.2 mg/dL Normal UROBILINOGE N, URINE AUTO [place] ([facility]) BILIRUBIN, URINE AUTO NEGATIVE Normal BILIRUBIN, URI NE AUTO [place] ([facility]) NITRITE, URINE AUTO NEGATIVE Normal NITRITE, URINE A UTO [place] ([facility]) LEUKOCYTE ESTERASE, URINE AUTO TRACE Above high normal LEUKOCYTE ESTERASE, URINE AUTO [place] ([facility]) BLOOD, URINE BLOOD NEGATIVE Normal BLOOD, URINE BLOO D [place] ([facility]) WBC, URINE AUTO 13 /HPF Above high normal WBC, URINE AU TO [place] ([facility]) RBC, URINE AUTO 1 /HPF Normal RBC, URINE AUTO GREE NW ([facility]) BACTERIA, URINE AUTO 1+ Above high normal BACTERIA , URINE AUTO [place] ([facility]) SQUAMOUS EPITHELIAL CELL UR AU 0 /HPF Normal SQUAM OUS EPITHELIAL CELL UR AU [place] ([facility]) MUCUS, URINE SMALL Normal MUCUS, URINE [place] ([facility]) HYALINE CAST, URINE AUTO 0 /LPF Normal HYALINE FREDERICK T, URINE AUTO [place] ([facility]) ID Date Data Source [id number] 06/19/2019 10:15:00 AM EST [place] ([facility]) Name Value Range Interpretation Code Description Data Teresa rce(s) Supporting Document(s) Reported Physicians See Note Reported Physici ans [place] ([facility]) Note: Reported Physicians:Ordering: МАРИЯ BOWERS [id number]: Surjit PRATT To: Surjit PRATT To: Orville Iverson ID Date Data Source [id number] 06/19/2019 10:15:00 AM [facility] ([facility]) Name Value Range Interpretation Code Description Data Teresa rce(s) Supporting Document(s) WHITE BLOOD COUNT 13.3 3/uL Above high normal WHITE BLOOD COUNT [place] ([facility]) Note: A Pathologist review of this diffe rential can help in the evaluation of a differential diagnosis. Please order a Pathologist Review (PATHREVCOMP) if deemed necessary. Results are subject to change if a Pathologist Review is performed. RED BLOOD COUNT 4.16 6/uL Normal RED BLOOD COUNT GREE [facility] ([facility]) Hemoglobin [Mass/volume] in Mixed venous blood by Oximetry 12.9 g/d l Normal HEMOGLOBIN [place] ([facility]) Hematocrit [Pure volume fraction] of Blood by Automated count 39.5 % Normal HEMATOCRIT [facility]) MEAN CORPUSCULAR VOLUME 95.0 fl Normal MEAN CORPUSC ULAR VOLUME [place] ([facility]) MEAN CORPUSCULAR HEMOGLOBIN 31.0 pg Normal MEAN COR PUSCULAR HEMOGLOBIN [facility]) MEAN CORPUSCULAR HGB CONC 32.7 g/dl Normal MEAN CORPU SCULAR HGB CONC [place] ([facility]) RED CELL DISTRIBUTION WIDTH 13.5 % Normal RED CELL DISTRIBUTION WIDTH [place] ([facility]) PLATELET COUNT, AUTOMATED 311 3/uL Normal PLATELET C OUNT, AUTOMATED [place] ([facility]) NUCLEATED RED BLOOD CELL % 0.0 % Normal NUCLEATED RED BLOOD CELL % [place] ([facility]) ID Date Data Source [id number] 06/19/2019 10:15:00 AM [facility] ([facility]) Name Value Range Interpretation Code Description Data Teresa rce(s) Supporting Document(s) Reported Physicians See Note Reported Physici ans [facility]) Note: Reported Physicians:Ordering: CAROL WEATHERS [id number]: Surjit PRATT To: Surjit PRATT To: Orville Iverson ID Date Data Source [id number] 06/19/2019 10:15:00 AM [facility] ([facility]) Name Value Range Interpretation Code Description Data Teresa rce(s) Supporting Document(s) URINE CULTURE See Note Normal URINE CULTURE [facility]) Note: FULL REPORT IN LAB NOTES [...] NEGATIVE FOR ESBL ID Date Data Source [id number] 06/06/2019 10:47:00 AM [facility] ([facility]) Name Value Range Interpretation Code Description Data Teresa rce(s) Supporting Document(s) Reported Physicians See Note Reported Graciela landaverde [place] ([facility]) Note: Reported Physicians:Ordering: Orville Felixtending: Orville IversonCopnava To: Orville Iverson ID Date Data Source [id number] 06/06/2019 10:47:00 AM [facility] ([facility]) Name Value Range Interpretation Code Description Data Teresa rce(s) Supporting Document(s) Hemoglobin A1c in Blood 5.9 % Normal HEMOGLOBIN A [address] [place] [address] ([facility]) Note: REFERENCE RANGES: 4.5-5.6% NOR MAL 5.7-6.4% SUGGESTS IMPAIRED GLUCOSE METABOLISM >= 6.5% ABNORMAL Glucose mean value [Moles/volume] in Blood Estimated f rom glycated hemoglobin 123 MG/DL Above high normal ESTIMATED AVERAGE GLUCOSE YOKO ESPINO ([facility]) ID Date Data Source [id number] 06/02/2019 10:17:00 AM [facility] [id number] Name Value Range Interpretation Code Description Data Teresa rce(s) Supporting Document(s) Bacteria identified in Urine by Culture [facility] ID Date Data Source [id number] 05/30/2019 04:45:00 PM EST SOFIA ([facility]) Name Value Range Interpretation Code Description Data Teresa rce(s) Supporting Document(s) Reported Physicians See Note Reported Physici ans ODESSA ([facility]) Note: Reported Physicians:Ordering: Cirilo onOrvilletending: Artur Iverson To: [facility] ID Date Data Source [id number] 05/30/2019 04:45:00 PM EST [place] ([facility]) Name Value Range Interpretation Code Description Data Teresa rce(s) Supporting Document(s) Bacteria identified in Urine by Culture See Note Bacteria Ur Cult [facility] ([facility]) Note: NGNo growth.L1NG Notes [TIMP] See Note NOTES [place] ([facility]) Note: [id number] ID Date Data Source [id number] 05/30/2019 04:45:00 PM [facility] ([facility]) Name Value Range Interpretation Code Description Data Teresa rce(s) Supporting Document(s) Reported Physicians See Note Reported Physici [facility] ([facility]) Note: Reported Physicians:Ordering: Cirilo onOrville MAttending: ORVILLE IVERSONReferring: ORVILLE IVERSONConsulting: Renee CHRISTENSEN To: Artur Iverson To: Nelly Christensen ID Date Data Source [id number] 05/30/2019 04:45:00 PM [facility] ([facility]) Name Value Range Interpretation Code Description Data Teresa rce(s) Supporting Document(s) [facility] URINE CULTURE See Note [facility] URINE CULT [facility] ([facility]) Note: _CULTURE URINE_ Result: [place] [address] CLIA# [id number] SEE SCANNED REPORT Responsible Observer: (MD) ID Date Data Source [id number] 06/03/2019 02:00:00 PM [facility] Name Value Range Interpretation Code Description Data Teresa rce(s) Supporting Document(s) [facility] URINE CULTURE [facility] _CULTURE URINE_ Result: [place] [address] CLIA# [id number] SEE SCANNED REPORT ID Date Data Source [id number] 05/20/2019 05:58:00 AM [facility] ([facility]) Name Value Range Interpretation Code Description Data Teresa rce(s) Supporting Document(s) Reported Physicians See Note Reported Clarkei saima [facility] ([facility]) Note: Reported Physicians:Ordering: GEE MORAN [id number]: Arely BROCKitting: Jaren LEE To: Shayan BROCK To: Jaren LEE To: Orville Iverson ID Date Data Source [id number] 05/20/2019 05:58:00 AM EST [place] ([facility]) Name Value Range Interpretation Code Description Data Teresa rce(s) Supporting Document(s) WHITE BLOOD COUNT 15.6 3/uL Above high normal WHITE BLOOD COUNT [facility]) RED BLOOD COUNT 4.40 6/uL Normal RED BLOOD COUNT YOKO ESPINO [facility]) Hemoglobin [Mass/volume] in Mixed venous blood by Oximetry 13.2 g/d l Normal HEMOGLOBIN [facility]) Hematocrit [Pure volume fraction] of Blood by Automated count 40.8 % Normal HEMATOCRIT [facility]) MEAN CORPUSCULAR VOLUME 92.7 fl Normal MEAN CORPUSC ULAR VOLUME [facility] ([facility]) MEAN CORPUSCULAR HEMOGLOBIN 30.0 pg Normal MEAN COR PUSCULAR HEMOGLOBIN [facility]) MEAN CORPUSCULAR HGB CONC 32.4 g/dl Normal MEAN CORPU SCULAR HGB CONC [facility] ([facility]) RED CELL DISTRIBUTION WIDTH 14.0 % Normal RED CELL DISTRIBUTION WIDTH [facility]) PLATELET COUNT, AUTOMATED 255 3/uL Normal PLATELET C OUNT, AUTOMATED [facility] ([facility]) NUCLEATED RED BLOOD CELL % 0.0 % Normal NUCLEATED RED BLOOD CELL % [facility] ([facility]) ID Date Data Source [id number] 05/20/2019 05:58:00 AM [facility] ([facility]) Name Value Range Interpretation Code Description Data Teresa rce(s) Supporting Document(s) Reported Physicians See Note Reported Physici ans [facility] ([facility]) Note: Reported Physicians:Ordering: GEE MORAN [id number], ARIANNA MDAttending: RICK BROCKAdmitting: Jaren LEE To: Shayan BROCK To: ARIANNA LEECopnava To: Orville Iverson ID Date Data Source [id number] 05/20/2019 05:58:00 AM [facility] ([facility]) Name Value Range Interpretation Code Description Data Teresa rce(s) Supporting Document(s) CPK CREATINE PHOSPHOKINASE 34 U/L Normal [facility] CK-MB VALUE MASS < 1.0 NG/ML Normal [facility] MB/CK RELATIVE INDEX 2.94 Normal MB/CK RELATIVE INDEX [facility]) Note: DIAGNOSIS CRITERIA MMB ng/ml Relative Index (RI) NON-AMI < or = 5 N/A PAGAN ZONE > 5 < or = 4 AMI > 5 > 4 TROPONIN I < 0.02 NG/ML Normal TROPONIN I [place] ([facility]) Note: Troponin I Reference Interval for Siemens [place] LOCI: 99th Percentile= 0.00-0.045 ng/ml Risk Stratification: <= 0.10 ng/ml Decreased Risk for Adverse Clinical Events. 0.10-1.50 ng/ml Increased Risk for Adverse Clinical Events. Evaluation of additional criterion and/or repeat testing in 2-6 hours is suggested to rule out myocardial damage. >= 1.50 ng/ml Indicative of Myocardial Injury. ID Date Data Source [id number] 05/20/2019 05:58:00 AM EST [place] ([facility]) Name Value Range Interpretation Code Description Data Teresa rce(s) Supporting Document(s) Reported Physicians See Note Reported Physici ans [place] ([facility]) Note: Reported Physicians:Ordering: GEE MROAN [id number], ARIANNA MDAttending: RICK BROCKAdmitting: ARIANNA LEECopnava To: JUSTIN BROCKSHCopy To: DUKE LEEITACopnava To: Orville Iverson ID Date Data Source [id number] 05/20/2019 05:58:00 AM EST [place] ([facility]) Name Value Range Interpretation Code Description Data Teresa rce(s) Supporting Document(s) GLUCOSE, FASTING 117 MG/DL Above high normal GLUCOSE, FAS TING [facility] ([facility]) BLOOD UREA NITROGEN 12 MG/DL Normal BLOOD UREA NITRO GEN [facility] ([facility]) CREATININE FOR GFR 0.77 MG/DL Normal CREATININE FOR GF R [facility] ([facility]) GLOMERULAR FILTRATION RATE > 60.0 Normal GLOMERULA R FILTRATION RATE [facility] ([facility]) Note: Units are mL/min/1.73 m2 Chroni c Kidney Disease Staging per NKF: Stage I & II GFR >=60 Normal to Mildly Decreased Stage III GFR 30- 59 Moderately Decreased Stage IV GFR 15-29 Severely Decreased Stage V GFR <15 Very Little GFR Left ESRD GFR <15 on GAS WELL PUMPER SODIUM LEVEL 141 MEQ/L Normal SODIUM LEVEL [facility]) POTASSIUM SERUM 3.7 MEQ/L Normal POTASSIUM SERUM [facility] ([facility]) CHLORIDE LEVEL 110 MEQ/L Above high normal CHLORIDE LEVEL [place] ([facility]) CARBON DIOXIDE LEVEL 26 MEQ/L Normal CARBON DIOXIDE LEVEL [facility] ([facility]) Anion gap in Body fluid 5 MEQ/L Below low normal ANION GAP [facility]) CALCIUM LEVEL 8.4 MG/DL Below low normal CALCIUM LEVEL GR [facility] ([facility]) ID Date Data Source [id number] 05/19/2019 11:13:00 PM [facility] ([facility]) Name Value Range Interpretation Code Description Data Teresa rce(s) Supporting Document(s) Reported Physicians See Note Reported Physici ans [place] ([facility]) Note: Reported Physicians:Ordering: SIN Sandra [id number] MDAttending: RICK BROCKAdmitting: Jaren LEE To: RICK BROCKCopnava To: ARIANNA LEECopy To: Orville Iverson ID Date Data Source [id number] 05/19/2019 11:13:00 PM [facility]) Name Value Range Interpretation Code Description Data Teresa rce(s) Supporting Document(s) CPK CREATINE PHOSPHOKINASE 40 U/L Normal CPK CREAT INE PHOSPHOKINASE [facility]) CK-MB VALUE MASS < 1.0 NG/ML Normal [facility] MB/CK RELATIVE INDEX 2.50 Normal MB/CK RELATIVE INDEX [facility]) Note: DIAGNOSIS CRITERIA MMB ng/ml Relative Index (RI) NON-AMI < or = 5 N/A PAGAN ZONE > 5 < or = 4 AMI > 5 > 4 TROPONIN I < 0.02 NG/ML Normal TROPONIN I [place] ([facility]) Note: Troponin I Reference Interval for Siemens [place] LOCI: 99th Percentile= 0.00-0.045 ng/ml Risk Stratification: <= 0.10 ng/ml Decreased Risk for Adverse Clinical Events. 0.10-1.50 ng/ml Increased Risk for Adverse Clinical Events. Evaluation of additional criterion and/or repeat testing in 2-6 hours is suggested to rule out myocardial damage. >= 1.50 ng/ml Indicative of Myocardial Injury. ID Date Data Source [id number] 05/19/2019 07:53:00 PM EST [place] ([facility]) Name Value Range Interpretation Code Description Data Teresa rce(s) Supporting Document(s) Reported Physicians See Note Reported [facility] ans [facility] ([facility]) Note: Reported Physicians:Ordering: SIN Sandra [id number], VIJESH MDAttending: VINOD, TRACEYJESHAdmitting: LWANGA, ANITACopy To: TRACEY BROCKJESHCopy To: SUSANA, ANITACopy To: Orville Iverson ID Date Data Source [id number] 05/19/2019 07:53:00 PM EST [place] ([facility]) Name Value Range Interpretation Code Description Data Teresa rce(s) Supporting Document(s) BEDSIDE GLUCOSE 174 MG/DL Above high normal BEDSIDE GLUCO SE [facility] ([facility]) ID Date Data Source [id number] 05/19/2019 06:07:00 PM EST [place] ([facility]) Name Value Range Interpretation Code Description Data Teresa rce(s) Supporting Document(s) Reported Physicians See Note Reported [facility] ([facility]) Note: Reported Physicians:Ordering: SIN Sandra [phone], VIJESH MDAttending: BROCK, VIJESHAdmitting: LWANGA, ANITACopy To: BROCK, VIJESHCopy To: JOSEANGA, ANITACopy To: Orville Iverson ID Date Data Source [id number] 05/19/2019 06:07:00 PM EST [place] ([facility]) Name Value Range Interpretation Code Description Data Teresa rce(s) Supporting Document(s) CPK CREATINE PHOSPHOKINASE 125 U/L Normal CPK CREAT INE PHOSPHOKINASE [facility] ([facility]) CK-MB VALUE MASS < 1.0 NG/ML Normal CK[facility]UE [facility] MB/CK RELATIVE INDEX 0.80 Normal MB/CK RELATIVE INDEX [facility]) Note: DIAGNOSIS CRITERIA MMB ng/ml Relative Index (RI) NON-AMI < or = 5 N/A PAGAN ZONE > 5 < or = 4 AMI > 5 > 4 TROPONIN I < 0.02 NG/ML Normal TROPONIN I [facility]) Note: Troponin I Reference Interval for [employer] LOCI: 99th Percentile= 0.00-0.045 ng/ml Risk Stratification: <= 0.10 ng/ml Decreased Risk for Adverse Clinical Events. 0.10-1.50 ng/ml Increased Risk for Adverse Clinical Events. Evaluation of additional criterion and/or repeat testing in 2-6 hours is suggested to rule out myocardial damage. >= 1.50 ng/ml Indicative of Myocardial Injury. ID Date Data Source [id number] 05/19/2019 04:28:00 PM EST [place] ([facility]) Name Value Range Interpretation Code Description Data Teresa rce(s) Supporting Document(s) Reported Physicians See Note Reported Physici ans [place] ([facility]) Note: Reported Physicians:Ordering: SIN Sandra [id number], RICK MDAttending: RICK BROCKAdmitting: LWANGA, ANITACopy To: RICK BROCKCopy To: JESUS ANITACopy To: Orville Iverson ID Date Data Source [id number] 05/19/2019 04:28:00 PM EST [place] ([facility]) Name Value Range Interpretation Code Description Data Teresa rce(s) Supporting Document(s) BEDSIDE GLUCOSE 124 MG/DL Above high normal BEDSIDE GLUCO SE [facility] ([facility]) ID Date Data Source [id number] 05/19/2019 01:54:00 PM EST [place] ([facility]) Name Value Range Interpretation Code Description Data Teresa rce(s) Supporting Document(s) Reported Physicians See Note Reported Physici ans [place] ([facility]) Note: Reported Physicians:Ordering: RICK LUND [id number]: RICK BROCKAdmitting: LWANGA ANITACopy To: RICK BROCKCopy To: SUSANA, ANITACopy To: Zayra Orville ID Date Data Source [id number] 05/19/2019 01:54:00 PM EST [place] ([facility]) Name Value Range Interpretation Code Description Data Teresa rce(s) Supporting Document(s) URINE CULTURE See Note Normal URINE CULTURE [place] ([facility]) Note: FULL REPORT IN LAB NOTES (eCW and [employer]).NO GROWTH Notes [TIMP] See Note NOTES [place] ([facility]) Note: Urine Culture Indication Severe Se psis Comments: Abnormal UA with a fever; not severe sepsis ID Date Data Source [id number] 05/19/2019 11:35:00 AM [facility] ([facility]) Name Value Range Interpretation Code Description Data Teresa rce(s) Supporting Document(s) Reported Physicians See Note Reported Physici ans [place] ([facility]) Note: Reported Physicians:Ordering: VOGT Boaz [id number], TRACEYJESH MDAttending: RICK BROCKAdmitting: LWANGA, ANITACopy To: JUSTIN BROCKSHCopy To: SUSANA, ANITACopy To: Zayra Orville ID Date Data Source [id number] 05/19/2019 11:35:00 AM EST [place] ([facility]) Name Value Range Interpretation Code Description Data Teresa rce(s) Supporting Document(s) BEDSIDE GLUCOSE 127 MG/DL Above high normal BEDSIDE GLUCO SE [facility] ([facility]) ID Date Data Source [id number] 05/19/2019 05:09:00 AM EST [place] ([facility]) Name Value Range Interpretation Code Description Data Teresa rce(s) Supporting Document(s) Reported Physicians See Note Reported Physici ans [place] ([facility]) Note: Reported Physicians:Ordering: LWDUKE MORAN [id number], ARIANNA MDAttending: LWANGA, ANITAAdmitting: LWANGA, ANITACopy To: JESUS, ANITACopy To: Orville Iverson ID Date Data Source [id number] 05/19/2019 05:09:00 AM [facility] ([facility]) Name Value Range Interpretation Code Description Data Tereas rce(s) Supporting Document(s) GLUCOSE, FASTING 118 MG/DL Above high normal GLUCOSE, FAS TING [place] ([facility]) BLOOD UREA NITROGEN 9 MG/DL Normal BLOOD UREA NITRO GEN [place] ([facility]) CREATININE FOR GFR 0.72 MG/DL Normal CREATININE FOR GF R [facility] ([facility]) GLOMERULAR FILTRATION RATE > 60.0 Normal GLOMERULA R FILTRATION RATE [facility] ([facility]) Note: Units are mL/min/1.73 m2 Chroni c Kidney Disease Staging per NKF: Stage I & II GFR >=60 Normal to Mildly Decreased Stage III GFR 30- 59 Moderately Decreased Stage IV GFR 15-29 Severely Decreased Stage V GFR <15 Very Little GFR Left ESRD GFR <15 on GAS WELL PUMPER SODIUM LEVEL 140 MEQ/L Normal SODIUM LEVEL [facility]) POTASSIUM SERUM 3.8 MEQ/L Normal [facility] CHLORIDE LEVEL 105 MEQ/L Normal CHLORIDE LEVEL [facility] ([facility]) CARBON DIOXIDE LEVEL 30 MEQ/L Normal CARBON DIOXIDE LEVEL [facility] ([facility]) Anion gap in Body fluid 5 MEQ/L Below low normal ANION GAP [facility]) CALCIUM LEVEL 8.3 MG/DL Below low normal [facility] ID Date Data Source [id number] 05/19/2019 05:09:00 AM [facility] ([facility]) Name Value Range Interpretation Code Description Data Teresa rce(s) Supporting Document(s) Reported Physicians See Note Reported Physici ans [place] ([facility]) Note: Reported Physicians:Ordering: GEE MORAN [id number], ARIANNA MDAttending: ARIANNA LEEAdmitting: JOSEANGA ANITACopy To: JESUS, ANITACopy To: Orville Iverson ID Date Data Source [id number] 05/19/2019 05:09:00 AM EST [employer] ([facility]) Name Value Range Interpretation Code Description Data Teresa rce(s) Supporting Document(s) WHITE BLOOD COUNT 16.5 3/uL Above high normal WHITE BLOOD COUNT [facility]) RED BLOOD COUNT 4.24 6/uL Normal RED BLOOD COUNT YOKO VALDEMAR [facility]) Hemoglobin [Mass/volume] in Mixed venous blood by Oximetry 13.1 g/d l Normal HEMOGLOBIN [facility] ([facility]) Hematocrit [Pure volume fraction] of Blood by Automated count 39.2 % Normal HEMATOCRIT [facility]) MEAN CORPUSCULAR VOLUME 92.5 fl Normal MEAN CORPUSC ULAR VOLUME [facility] ([facility]) MEAN CORPUSCULAR HEMOGLOBIN 30.9 pg Normal MEAN COR PUSCULAR HEMOGLOBIN [facility]) MEAN CORPUSCULAR HGB CONC 33.4 g/dl Normal MEAN CORPU SCULAR HGB CONC [place] ([facility]) RED CELL DISTRIBUTION WIDTH 13.9 % Normal RED CELL DISTRIBUTION WIDTH [facility]) PLATELET COUNT, AUTOMATED 279 3/uL Normal PLATELET C OUNT, AUTOMATED [place] ([facility]) NUCLEATED RED BLOOD CELL % 0.0 % Normal NUCLEATED RED BLOOD CELL % [facility] ([facility]) ID Date Data Source [id number] 05/19/2019 05:09:00 AM [employer] ([facility]) Name Value Range Interpretation Code Description Data Teresa rce(s) Supporting Document(s) Reported Physicians See Note Reported Physici ans [place] ([facility]) Note: Reported Physicians:Ordering: GEE MORAN [id number], ARIANNA MDAttending: ARIANNA LEEAdmitting: ARIANNA LEECopnava To: ARIANNA LEECopy To: Orville Iverson ID Date Data Source [id number] 05/19/2019 05:09:00 AM EST [employer] ([facility]) Name Value Range Interpretation Code Description Data Teresa rce(s) Supporting Document(s) PLATELET ESTIMATE NORMAL Normal PLATELET ESTIMATE [facility]) ID Date Data Source [id number] 05/19/2019 05:09:00 AM EST [facility] ([facility]) Name Value Range Interpretation Code Description Data Teresa rce(s) Supporting Document(s) Reported Physicians See Note Reported Physici ans [place] ([facility]) Note: Reported Physicians:Ordering: GEE MORAN [id number], ARIANNA MDAttending: LWANGA, ANITAAdmitting: LWANGA, ANITACopy To: JOSEANGA, ANITACopy To: Orville Iverson ID Date Data Source [id number] 05/19/2019 05:09:00 AM EST [place] ([facility]) Name Value Range Interpretation Code Description Data Teresa rce(s) Supporting Document(s) Neutrophils [#] in Body fluid by Manual count 64 % N ormal NEUTROPHILS [facility] ([facility]) Lymphocytes [#] in Body fluid by Manual count 27 % N ormal LYMPHOCYTES [facility] ([facility]) Monocytes [#/volume] in Cord blood 4 % Normal M ONOCYTES [place] ([facility]) Eosinophils [#] in Body fluid by Manual count 1 % N ormal EOSINOPHILS [facility] ([facility]) ATYPICAL LYMPH 4 % Normal ATYPICAL LYMPH [facility] ([facility]) RBC MORPHOLOGY NORMAL Normal RBC MORPHOLOGY [facility] ([facility]) ID Date Data Source [id number] 05/19/2019 01:32:00 AM EST [facility] ([facility]) Name Value Range Interpretation Code Description Data Teresa rce(s) Supporting Document(s) Reported Physicians See Note Reported Physici ans [facility] ([facility]) Note: Reported Physicians:Ordering: GEE MORAN [id number] ARIANNA MDAttending: LWANGA, ANITAAdmitting: LWANGA, ANITACopy To: JOSEANGA, ANITACopy To: Orville Iverson ID Date Data Source [id number] 05/19/2019 01:32:00 AM EST [facility] ([facility]) Name Value Range Interpretation Code Description Data Teresa rce(s) Supporting Document(s) BEDSIDE GLUCOSE 117 MG/DL Above high normal BEDSIDE GLUCO SE [facility] ([facility]) ID Date Data Source [id number] 05/19/2019 01:13:00 AM EST [facility] ([facility]) Name Value Range Interpretation Code Description Data Teresa rce(s) Supporting Document(s) Reported Physicians See Note Reported [facility] ([facility]) Note: Reported Physicians:Ordering: GEE MORAN [id number], ARIANNA MDAttending: LWANGA ANITAAdmitting: LWMARGOT ANITACopy To: DUKE LEEITACopy To: Orville Iverson ID Date Data Source [id number] 05/19/2019 01:13:00 AM [facility] ([facility]) Name Value Range Interpretation Code Description Data Teresa rce(s) Supporting Document(s) LACTIC ACID SEPSIS PROTOCOL 1.0 MMOL/L Normal LACTIC A SAMIA SEPSIS PROTOCOL [facility] ([facility]) Notes [TIMP] See Note NOTES [facility] ([facility]) Note: Y/N query for Sepsis Lactate Rule: Y ID Date Data Source [id number] 05/18/2019 08:40:00 PM [facility] ([facility]) Name Value Range Interpretation Code Description Data Teresa rce(s) Supporting Document(s) Reported Physicians See Note Reported [facility] ([facility]) Note: Reported Physicians:Ordering: ROLANDO JONES [phone]: JUSTIN BROCKSHAdmitting: LWANGA, ANITACopy To: TRACEY BROCKJESHCopy To: ROLANDO AHUMADACopnava To: Jerrell CoonipCopy To: Orville Iverson ID Date Data Source [id number] 05/18/2019 08:40:00 PM [facility] ([facility]) Name Value Range Interpretation Code Description Data Teresa rce(s) Supporting Document(s) BLOOD CULTURE See Note BLOOD CULTURE [place] ([facility]) Note: No growth after 72 hours . All spe cimens observedfor 5 days. Results final at that time.No growth after 48 hours . All specimens observedfor 5 days. Results final at that time.No growth after 24 hours . All specimens observedfor 5 days. Results final at that time.NO GROWTH AFTER 5 DAYS Notes [TIMP] See Note NOTES [facility] ([facility]) Note: Culture Source: BLOOD ID Date Data Source [id number] 05/18/2019 08:39:00 PM EST [facility] ([facility]) Name Value Range Interpretation Code Description Data Teresa rce(s) Supporting Document(s) Reported Physicians See Note Reported Physici ans [facility] ([facility]) Note: Reported Physicians:Ordering: Orquidea Brock [id number] DavidAttending: Seven Coon To: Seven Coon To: Orville Iverson ID Date Data Source [id number] 05/18/2019 08:39:00 PM EST [facility] ([facility]) Name Value Range Interpretation Code Description Data Teresa rce(s) Supporting Document(s) iSTAT HCT 39.0 % Normal iSTAT HCT [place] ([facility]) iSTAT GLUCOSE 124 MG/DL Above high normal iSTAT GLUCOSE [facility] ([facility]) iSTAT SODIUM 136 MEQ/L Normal iSTAT SODIUM [facility] ( [facility]) iSTAT POTASSIUM 4.1 MEQ/L Normal [facility] iSTAT CA++ 4.3 MG/DL Below low normal iSTAT CA++ [facility] ([facility]) iSTAT CHLORIDE 98 MEQ/L Normal iSTAT CHLORIDE [facility] ([facility]) iSTAT CO2 27.0 MM/L Normal iSTAT CO2 [facility] ([facility]) iSTAT BUN 11 MG/DL Normal iSTAT BUN [facility] ([facility]) iSTAT CREATININE 0.7 MG/DL Normal iSTAT [facility] ID Date Data Source [id number] 05/18/2019 08:36:00 PM EST [facility] ([facility]) Name Value Range Interpretation Code Description Data Teresa rce(s) Supporting Document(s) Reported Physicians See Note Reported Physici ans [place] ([facility]) Note: Reported Physicians:Ordering: Orquidea Brock [id number] DavidAttending: Seven Coon To: Seven Coon To: Orville Iverson ID Date Data Source [id number] 05/18/2019 08:36:00 PM [facility] ([facility]) Name Value Range Interpretation Code Description Data Teresa rce(s) Supporting Document(s) BEDSIDE GLUCOSE 128 MG/DL Above high normal BEDSIDE GLUCO SE [facility] ([facility]) ID Date Data Source [id number] 05/18/2019 08:20:00 PM [facility] ([facility]) Name Value Range Interpretation Code Description Data Teresa rce(s) Supporting Document(s) Reported Physicians See Note Reported Physici ans [place] ([facility]) Note: Reported Physicians:Ordering: RICK LUND [id number]: RICK BROCKAdmitting: LWANGA, ANITACopy To: RICK BROCKCopnava To: JESUS ANITACopy To: Orville Iverson ID Date Data Source [id number] 05/18/2019 08:20:00 PM [facility] ([facility]) Name Value Range Interpretation Code Description Data Teresa rce(s) Supporting Document(s) URINE CULTURE See Note Normal URINE CULTURE [place] ([facility]) Note: FULL REPORT IN LAB NOTES [...] S Notes [TIMP] See Note NOTES [place] ([facility]) Note: Urine Culture Indication Severe Se psis Comments: Abnormal UA with a fever; not severe sepsis ID Date Data Source [id number] 05/18/2019 08:10:00 PM [facility] ([facility]) Name Value Range Interpretation Code Description Data Teresa rce(s) Supporting Document(s) Reported Physicians See Note Reported Graciela BLACK ([facility]) Note: Reported Physicians:Ordering: GEE MORAN [id number], ARIANNA MDAttending: ARIANNA LEEAdmitting: ARIANNA LEECopnava To: ARIANNA LEECopnava To: Orville Iverson ID Date Data Source [id number] 05/18/2019 08:10:00 PM [facility] ([facility]) Name Value Range Interpretation Code Description Data Teresa rce(s) Supporting Document(s) Hemoglobin A1c in Blood 6.2 % Normal HEMOGLOBIN A [address] [place] [address] ([facility]) Note: REFERENCE RANGES: 4.5-5.6% NOR MAL 5.7-6.4% SUGGESTS IMPAIRED GLUCOSE METABOLISM >= 6.5% ABNORMAL Glucose mean value [Moles/volume] in Blood Estimated f rom glycated hemoglobin 131 MG/DL Above high normal ESTIMATED AVERAGE GLUCOSE YOKO ESPINO ([facility]) ID Date Data Source [id number] 05/18/2019 08:10:00 PM [facility]) Name Value Range Interpretation Code Description Data Teresa rce(s) Supporting Document(s) Reported Physicians See Note Reported Graciela landaverde SOFIA ([facility]) Note: Reported Physicians:Ordering: SIXTO MELÉNDEZ [id number], ROLANDO OdellAttending: Seven Coon To: Seven Coon To: Katie AHUMADA To: Orville Iverson ID Date Data Source [id number] 05/18/2019 08:10:00 PM EST SOF[place] ([facility]) Name Value Range Interpretation Code Description Data Teresa rce(s) Supporting Document(s) APPEARANCE, URINE HAZY Normal APPEARANCE, URINE [place] ([facility]) COLOR, URINE YELLOW Normal COLOR, URINE [place] ( [facility]) PH,URINE 7.0 UNITS Normal PH,URINE [place] ([facility]) SPECIFIC GRAVITY URINE AUTO 1.011 Normal SPECIFIC GRAVITY URINE AUTO [place] ([facility]) PROTEIN, URINE AUTO NEGATIVE mg/dL Normal PROTEIN, URI NE AUTO [place] ([facility]) GLUCOSE, URINE (UA) AUTO NEGATIVE mg/dL Normal GLUCOSE , URINE (UA) AUTO [place] ([facility]) KETONE, URINE AUTO NEGATIVE mg/dL Normal KETONE, URINE AUTO [place] ([facility]) UROBILINOGEN, URINE AUTO 0.2 mg/dL Normal UROBILINOGE N, URINE AUTO [place] ([facility]) BILIRUBIN, URINE AUTO NEGATIVE Normal BILIRUBIN, URI NE AUTO [place] ([facility]) NITRITE, URINE AUTO POSITIVE Normal NITRITE, URINE A UTO [place] ([facility]) LEUKOCYTE ESTERASE, URINE AUTO TRACE Above high normal LEUKOCYTE ESTERASE, URINE AUTO [place] ([facility]) BLOOD, URINE BLOOD NEGATIVE Normal BLOOD, URINE BLOO D [place] ([facility]) WBC, URINE AUTO 20 /HPF Above high normal WBC, URINE AU TO [place] ([facility]) RBC, URINE AUTO 7 /HPF Above high normal RBC, URINE AU TO [place] ([facility]) BACTERIA, URINE AUTO 3+ Above high normal BACTERIA , URINE AUTO [place] ([facility]) SQUAMOUS EPITHELIAL CELL UR AU 0 /HPF Normal SQUAM OUS EPITHELIAL CELL UR AU [place] ([facility]) MUCUS, URINE SMALL Normal MUCUS, URINE [place] ([facility]) HYALINE CAST, URINE AUTO 0 /LPF Normal HYALINE FREDERICK T, URINE AUTO [place] ([facility]) ID Date Data Source [id number] 05/18/2019 08:10:00 PM EST [place] ([facility]) Name Value Range Interpretation Code Description Data Teresa rce(s) Supporting Document(s) Reported Physicians See Note Reported Physici ans [place] ([facility]) Note: Reported Physicians:Ordering: SIXTO MELÉNDEZ [id number]: Seven Coon To: Seven Coon To: Katie AHUMADA To: Orville Iverson ID Date Data Source [id number] 05/18/2019 08:10:00 PM EST [place] ([facility]) Name Value Range Interpretation Code Description Data Teresa rce(s) Supporting Document(s) VENOUS PH 7.542 UNITS Above high normal VENOUS PH [facility]) VENOUS PARTIAL PRESSURE CO2 32.3 mmHg Below low nor mal VENOUS PARTIAL PRESSURE CO2 [facility]) VENOUS PARTIAL PRESSURE O2 131.0 mmHg Above high nor mal VENOUS PARTIAL PRESSURE O2 [facility]) VENOUS TOTAL CO2 28.1 MEQ/L Above high normal VENOUS TOTAL CO2 [facility]) VENOUS HCO3 27.1 MEQ/L Above high normal VENOUS HCO3 [facility]) VENOUS BASE EXCESS 5.0 Above high normal VENOUS BAS E EXCESS [place] ([facility]) VENOUS STANDARD HCO3 29.0 MEQ/L Normal VENOUS STANDARD HCO3 [place] ([facility]) VENOUS O2 SATURATION 98.8 % Above high normal VENOUS O 2 SATURATION [facility]) ID Date Data Source [id number] 05/18/2019 08:10:00 PM EST [place] ([facility]) Name Value Range Interpretation Code Description Data Teresa rce(s) Supporting Document(s) Reported Physicians See Note Reported Physici ans [place] ([facility]) Note: Reported Physicians:Ordering: ROLANDO JONES [id number]: RICK BROCKAdmitting: Jaren LEE To: RICK BROCKCopy To: Katie AHUMADA To: Seven Coon To: Orville Iverson ID Date Data Source [id number] 05/18/2019 08:10:00 PM [facility]) Name Value Range Interpretation Code Description Data Teresa rce(s) Supporting Document(s) BLOOD CULTURE See Note BLOOD CULTURE [place] ([facility]) Note: No growth after 72 hours . All spe cimens observedfor 5 days. Results final at that time.No growth after 48 hours . All specimens observedfor 5 days. Results final at that time.No growth after 24 hours . All specimens observedfor 5 days. Results final at that time.NO GROWTH AFTER 5 DAYS Notes [TIMP] See Note NOTES [place] ([facility]) Note: Culture Source: BLOOD ID Date Data Source [id number] 05/18/2019 07:53:00 PM [facility] Name Value Range Interpretation Code Description Data Teresa rce(s) Supporting Document(s) Reported Physicians See Note Reported Physici ans [place] ([facility]) Note: Reported Physicians:Ordering: SIXTO MELÉNDEZ [id number] WolfAttending: Seven Coon To: Seven oCon To: Katie AHUMADA To: Orville Iverson ID Date Data Source [id number] 05/18/2019 07:53:00 PM [facility]) Name Value Range Interpretation Code Description Data [facility] rce(s) Supporting Document(s) HCG, SERUM QUANTITATIVE 7 MIU/ML Normal HCG, SERUM Q UANTITATIVE [place] ([facility]) Note: GESTATIONAL AGE APPRO XIMATE HCG RANGE [...] monitoring the treatment of cancer patients. Siemens Hallowell methodology. ID Date Data Source [id number] 05/18/2019 07:53:00 PM [facility] ([facility]) Name Value Range Interpretation Code Description Data Teresa rce(s) Supporting Document(s) Reported Physicians See Note Reported Physici ans [facility]) Note: Reported Physicians:Ordering: SIXTO MELÉNDEZ [id number] WolfAttending: Seven Coon To: Seven Coon To: Katie AHUMADA To: Orville Iverson ID Date Data Source [id number] 05/18/2019 07:53:00 PM [facility] ([facility]) Name Value Range Interpretation Code Description Data Teresa rce(s) Supporting Document(s) WHITE BLOOD COUNT 20.0 3/uL Above high normal WHITE BLOOD COUNT [facility]) Note: A Pathologist review of this diffe rential can help in the evaluation of a differential diagnosis. Please order a Pathologist Review (PATHREVCOMP) if deemed necessary. Results are subject to change if a Pathologist Review is performed. RED BLOOD COUNT 4.26 6/uL Normal RED BLOOD COUNT JEREMYE [facility] ([facility]) Hemoglobin [Mass/volume] in Mixed venous blood by Oximetry 13.0 g/d l Normal HEMOGLOBIN [place] ([facility]) Hematocrit [Pure volume fraction] of Blood by Automated count 39.4 % Normal HEMATOCRIT [facility]) MEAN CORPUSCULAR VOLUME 92.5 fl Normal MEAN CORPUSC ULAR VOLUME [place] ([facility]) MEAN CORPUSCULAR HEMOGLOBIN 30.5 pg Normal MEAN COR PUSCULAR HEMOGLOBIN [place] ([facility]) MEAN CORPUSCULAR HGB CONC 33.0 g/dl Normal MEAN CORPU SCULAR HGB CONC [place] ([facility]) RED CELL DISTRIBUTION WIDTH 13.8 % Normal RED CELL DISTRIBUTION WIDTH [place] ([facility]) PLATELET COUNT, AUTOMATED 287 3/uL Normal PLATELET C OUNT, AUTOMATED [place] ([facility]) NUCLEATED RED BLOOD CELL % 0.0 % Normal NUCLEATED RED BLOOD CELL % [place] ([facility]) ID Date Data Source [id number] 05/18/2019 07:53:00 PM [facility] ([facility]) Name Value Range Interpretation Code Description Data Teresa rce(s) Supporting Document(s) Reported Physicians See Note Reported Physici ans [place] ([facility]) Note: Reported Physicians:Ordering: SIXTO MELÉNDEZ [id number] WolfAttending: Seven Coon To: Seven Coon To: Katie AHUMADA To: Orville Iverson ID Date Data Source [id number] 05/18/2019 07:53:00 PM [facility] ([facility]) Name Value Range Interpretation Code Description Data Teresa rce(s) Supporting Document(s) AST/SGOT 9 U/L Normal AST/SGOT [place] ([facility]) ALT/SGPT 22 U/L Normal ALT/SGPT [place] ([facility]) Alkaline phosphatase [Enzymatic activity/volume] in Se rum, Plasma or Blood 88 U/L Normal ALKALINE PHOSPHATASE [place] ([facility]) BILIRUBIN,TOTAL 0.4 MG/DL Normal BILIRUBIN,TOTAL GREE [facility] ([facility]) BILIRUBIN,DIRECT 0.1 MG/DL Normal BILIRUBIN,DIRECT GR [facility] ([facility]) TOTAL PROTEIN 6.3 GM/DL Below low normal TOTAL PROTEIN GR [facility] ([facility]) Albumin [Mass/volume] in Blood by Bromocresol purple ( BCP) dye binding method 3.1 GM/DL Below low normal ALBUMIN [place] ([facility]) ALBUMIN/GLOBULIN RATIO 0.97 Below low normal ALBUMIN /GLOBULIN RATIO [place] ([facility]) ID Date Data Source [id number] 05/18/2019 07:53:00 PM EST [place] ([facility]) Name Value Range Interpretation Code Description Data Teresa rce(s) Supporting Document(s) Reported Physicians See Note Reported Physici ans [place] ([facility]) Note: Reported Physicians:Ordering: SIXTO MELÉNDEZ [id number] WolfAttending: Seven Coon To: Seven Coon To: Katie AHUMADA To: Orville Iverson ID Date Data Source [id number] 05/18/2019 07:53:00 PM EST [place] ([facility]) Name Value Range Interpretation Code Description Data Teresa rce(s) Supporting Document(s) LIPASE 58 U/L Below low normal LIPASE [place] ([facility]) ID Date Data Source [id number] 05/18/2019 07:53:00 PM EST [place] ([facility]) Name Value Range Interpretation Code Description Data Teresa rce(s) Supporting Document(s) Reported Physicians See Note Reported Physici ans [place] ([facility]) Note: Reported Physicians:Ordering: SIXTO MELÉNDEZ [id number] VillatoroAttending: Seven Coon To: Seven Coon To: Katie AHUMADA To: Orville Iverson ID Date Data Source [id number] 05/18/2019 07:53:00 PM EST [place] ([facility]) Name Value Range Interpretation Code Description Data Teresa rce(s) Supporting Document(s) Neutrophils [#] in Body fluid by Manual count 59 % N ormal NEUTROPHILS [place] ([facility]) BANDS 1 % Normal BANDS [place] ([facility]) Lymphocytes [#] in Body fluid by Manual count 29 % N ormal LYMPHOCYTES [place] ([facility]) Monocytes [#/volume] in Cord blood 6 % Above high n ormal MONOCYTES [place] ([facility]) Eosinophils [#] in Body fluid by Manual count 2 % N ormal EOSINOPHILS [place] ([facility]) Metamyelocytes [#] in Body fluid by Manual count 1 % Above high normal METAMYELOCYTES [place] ([facility]) ATYPICAL LYMPH 2 % Normal ATYPICAL LYMPH [facility] ([facility]) HYPOCHROMASIA 1+ Normal HYPOCHROMASIA [place] ([facility]) Anisocytosis [Presence] in Blood by Light microscopy 1+ Normal ANISOCYTOSIS [place] ([facility]) TEAR DROP CELLS 1+ Normal TEAR DROP CELLS GREE NWVALDEMAR ([facility]) ID Date Data Source [id number] 05/18/2019 07:53:00 PM EST [place] ([facility]) Name Value Range Interpretation Code Description Data Teresa rce(s) Supporting Document(s) Reported Physicians See Note Reported Physici ans [place] ([facility]) Note: Reported Physicians:Ordering: SIXOT MELÉNDEZ [id number]: Seven Coon To: Seven Coon To: Katie AHUMADA To: Orville Iverson ID Date Data Source [id number] 05/18/2019 07:53:00 PM EST [place] ([facility]) Name Value Range Interpretation Code Description Data Teresa rce(s) Supporting Document(s) PLATELET ESTIMATE NORMAL Normal PLATELET ESTIMATE [place] ([facility]) ID Date Data Source [id number] 05/18/2019 07:08:00 PM EST [place] ([facility]) Name Value Range Interpretation Code Description Data Teresa rce(s) Supporting Document(s) Reported Physicians See Note Reported Physici [facility] ([facility]) Note: Reported Physicians:Ordering: Paige Royding: Seven Coon To: Seven Coon To: Cliff PEARL To: Orville Iverson ID Date Data Source [id number] 05/18/2019 07:08:00 PM EST [place] ([facility]) Name Value Range Interpretation Code Description Data Teresa rce(s) Supporting Document(s) INFLUENZA A AMPLIFICATION NEGATIVE Normal INFLUENZA A AMPLIFICATION [place] ([facility]) Note: Negative results do not preclude i nfluenza or RSV virus infection and should not be used as the sole basis for treatment or other patient management decisions. INFLUENZA B AMPLIFICATION NEGATIVE Normal INFLUENZA B AMPLIFICATION [place] ([facility]) Note: Negative results do not preclude i nfluenza or RSV virus infection and should not be used as the sole basis for treatment or other patient management decisions. ID Date Data Source [id number] 05/14/2019 01:02:00 PM EST [place] ([facility]) Name Value Range Interpretation Code Description Data Teresa rce(s) Supporting Document(s) Reported Physicians See Note Reported Physici ans [place] ([facility]) Note: Reported Physicians:Ordering: HEYDI MONROE [id number] ScottAttending: Frankie SALAZAR To: Frankie SALAZAR To: Orville Iverson ID Date Data Source [id number] 05/14/2019 01:02:00 PM EST [place] ([facility]) Name Value Range Interpretation Code Description Data Teresa rce(s) Supporting Document(s) iSTAT B-hCG 15.1 Normal iSTAT B-hCG [place] ([facility]) Note: QUANTITATIVE RESULT QUALI TATIVE INTERPRETATION <5.0 IU/L NEGATIVE 5.0 - 25.0 IU/L INDETERMINATE > 25.0 IU/L POSITIVE ID Date Data Source [id number] 05/14/2019 12:59:00 PM EST [place] ([facility]) Name Value Range Interpretation Code Description Data Teresa rce(s) Supporting Document(s) Reported Physicians See Note Reported Physici ans [place] ([facility]) Note: Reported Physicians:Ordering: HEYDI MONROE [id number] ScottAttending: Frankie SALAZAR To: Frankie SALAZAR To: Orville Iverson ID Date Data Source [id number] 05/14/2019 12:59:00 PM EST [place] ([facility]) Name Value Range Interpretation Code Description Data Teresa rce(s) Supporting Document(s) iSTAT HCT 46.0 % Normal iSTAT HCT [place] ([facility]) iSTAT GLUCOSE 92 MG/DL Normal iSTAT GLUCOSE [place] ([facility]) iSTAT SODIUM 140 MEQ/L Normal iSTAT SODIUM [place] ( [facility]) iSTAT POTASSIUM 4.5 MEQ/L Normal iSTAT POTASSIUM GREE [place] ([facility]) iSTAT CA++ 4.3 MG/DL Below low normal iSTAT CA++ [place] ([facility]) iSTAT CHLORIDE 103 MEQ/L Normal iSTAT CHLORIDE [place] ([facility]) iSTAT CO2 31.0 MM/L Above high normal iSTAT CO2 [place] ([facility]) iSTAT BUN 11 MG/DL Normal iSTAT BUN [place] ([facility]) iSTAT CREATININE 0.7 MG/DL Normal [facility] ID Date Data Source [id number] 03/15/2019 07:55:09 PM EST Laboratory [facility] Name Value Range Interpretation Code Description Data Teresa rce(s) Supporting Document(s) HEMOGLOBIN A1C @ 5.8 % (4.0-6.0) [facility] - CORE Performed using Siemens Hallowell immunoassa y.Care must be taken when interpreting [id number] in patients with a hemoglobin variantor decreased erythrocyte lifespan. Values 5.7 - 6.4% suggest prediabetes.Values >=6.5% are diagnostic for diabetes.REFERENCE: DIABETES CARE 2018: 41(S13-S27). EST AVERAGE GLUCOSE 120 mg/dL Laboratory [place] [facility] ID Date Data Source [id number] 03/15/2019 08:16:50 PM EST Laboratory [facility] Name Value Range Interpretation Code Description Data Teresa rce(s) Supporting Document(s) VITAMIN B12 @ 1491 pg/mL (193-986) H Laboratory [facility] ID Date Data Source [id number] 03/15/2019 08:16:50 PM EST [facility] Name Value Range Interpretation Code Description Data Teresa rce(s) Supporting Document(s) SODIUM 141 mmol/L (136-145) [facility] [place] [facility] POTASSIUM 3.8 mmol/L (3.6-5.2) [facility] [place] [facility] CHLORIDE 106 mmol/L (100-108) [facility] [place] [facility] CO2 30 mmol/L (22-31) [facility] [place] [facility] ANION GAP 5 mmol/L (7-16) L [facility] [place] [facility] - [facility] UREA NITROGEN 7 mg/dL (7-24) [facility] CREATININE 0.69 mg/dL (0.60-1.00) [facility] BUN/CREAT RATIO 10.1 RATIO (10.0-20.0) [facility] [place] [facility] - [facility] GLUCOSE 96 mg/dL (70-99) [facility] [place] [facility] - [facility] CALCIUM 9.2 mg/dL (8.4-10.2) [facility] [place] [facility] TOTAL PROTEIN 7.0 g/dL (6.4-8.2) [facility] ALBUMIN 3.5 g/dL (3.5-4.6) [facility] [place] [facility] - C[facility] GLOBULIN 3.5 g/dL (2.7-4.3) [facility] [place] [facility] - [facility] ALB/GLOB RATIO 1.0 RATIO Laboratory [facility] - [facility] ALKALINE PHOSPHATASE 81 U/L (45-117) Laborator [facility] [place] [facility] - [facility] BILIRUBIN,TOTAL 0.4 mg/dL (0.0-1.0) [facility] [place] [facility] [facility] AST (SGOT) 13 U/L (11-39) [facility] [place] [facility] ALT (SGPT) 21 U/L (12-78) [facility] [place] [facility] - [facility] GFR >60 ml/min/1.73m2 (>59) [facility] - C[facility] GFR ( AMER) >60 ml/min/1.73m2 (>59) [facility] [place] [facility] GFR INTERPRETATION [facility] [place] [facility] - [facility] --NORMAL KIDNEY FUNCTION OR MILD DISEASE - GFR >OR= 60CHRONIC KIDNEY DISEASE - GFR 15 - 59RENAL FAILURE - GFR <15 Est. GFR calculation based on the MDRDstudy equation, which assumes a steadystate for creatinine. Est. GFR should notbe used for medication dosing. ID Date Data Source [id number] 03/15/2019 08:16:50 PM EST Laboratory [facility] Name Value Range Interpretation Code Description Data Teresa rce(s) Supporting Document(s) FERRITIN @ 85 ng/mL (8-252) Laboratory [place] [facility] ID Date Data Source [id number] 03/15/2019 08:16:50 PM EST [facility] Name Value Range Interpretation Code Description Data Teresa rce(s) Supporting Document(s) MAGNESIUM 1.9 mg/dL (1.7-2.4) Laboratory [place] [facility] ID Date Data Source [id number] 03/15/2019 08:16:50 PM EST [facility] Name Value Range Interpretation Code Description Data Teresa rce(s) Supporting Document(s) IRON,TOTAL @ 96 ug/dL (35-150) Laboratory [facility] UIBC @ 153 ug/dL (130-375) Laboratory [place] [facility] TIBC @ 249 ug/dL (250-450) L Laboratory [place] [facility] % SATURATION 39 % (12-50) Laboratory [facility] ID Date Data Source [id number] 03/15/2019 08:16:50 PM EST [facility] Name Value Range Interpretation Code Description Data Teresa rce(s) Supporting Document(s) PHOSPHORUS 2.7 mg/dL (2.5-4.5) Laboratory [place] [facility] ID Date Data Source [id number] 03/15/2019 08:40:01 PM EST [facility] Name Value Range Interpretation Code Description Data Teresa rce(s) Supporting Document(s) 25 HYDROXY VIT D @ 63 ng/mL (31-100) [facility] [place] [facility] - [facility] A REVIEW OF THE LITERATURE SUGGESTS THEF OLLOWING RANGES FOR THE CLASSIFICATIONOF 25-OH VITAMIN D STATUS: VITAMIN D STATUS 25-OH VITAMIN D DEFICIENCY <20 NG/MLINSUFFICIENCY 20-30 NG/MLSUFFICIENCY 31 - 100 NG/MLTOXICITY > 100 NG/ML A PEDIATRIC REFERENCE RANGE HAS NOT BEENESTABLISHED USING THIS METHOD. ID Date Data Source [id number] 03/15/2019 08:46:33 PM EST Laboratory [facility] [...] - CORE MPV 8.8 fL (7.1-10.7) [facility] [place] [facility] - C[facility] NEUT % 42.0 % (35.0-75.0) [facility] - [facility] BAND % 1.0 % (0.0-11.0) [facility] [place] [facility] - CORE LYMPH % 43.0 % (16.0-52.0) [facility] - [facility] ATYP LYMPH % 2.0 % (0.0-5.0) [facility] - CORE MONO % 7.0 % (0.0-8.0) [facility] [place] [facility] - C[facility] EOS % 5.0 % (0.0-5.0) [facility] [place] [facility] - CORE NEUT # 4.7 [...] count 0.6 10*3/uL (0.0-0 .5) H [facility] [place] [facility] - CORE ANISO 1+ [facility] [place] [facility] - CORE LARGE PLT 1+ [facility] [place] [facility] - CORE DIFF COMMENT [facility] ID Date Data Source [id number] 03/18/2019 03:56:43 PM EST [facility] Name Value Range Interpretation Code Description Data Teresa rce(s) Supporting Document(s) SR HCT 41.2 % [facility] [place] [facility] - [facility] FOLATE RBC 1075 ng/mL [facility] Reference range: >=366 Performed by [employer], [address] [place] [id number] [email or web address], Delta Mendoza MD, Lab. Director Procedure Social History Code Duration Value Status Description Data Source(s ) Smoking 04/26/2020 12:00:00 AM EST Unknown if ever smoked comp leted Unknown if ever smoked [facility] ([facility]) Smoking 04/17/2020 12:00:00 AM EST Unknown if ever smoked comp leted Unknown if ever smoked [facility] ([facility]) Smoking 04/02/2020 12:00:00 AM EST Unknown if ever smoked comp leted Unknown if ever smoked [facility] ([facility]) Smoking 03/20/2020 12:00:00 AM EST Unknown if ever smoked comp leted Unknown if ever smoked [facility] ([facility]) Smoking 03/19/2020 12:00:00 AM EST Current Smoker completed Curre nt Smoker eCW1 ([facility]) Smoking 03/19/2020 12:00:00 AM EST Current Smoker completed Curre nt Smoker eCW1 ([facility] - [place]) Smoking 03/19/2020 12:00:00 AM EST Current Smoker completed Curre nt Smoker eCW1 ([facility] [place]) Smoking 03/05/2020 12:00:00 AM EST Current Smoker completed Curre nt Smoker eCW1 ([facility] [place]) Smoking 02/28/2020 12:00:00 AM EST Unknown if ever smoked comp leted Unknown if ever smoked [facility] ([facility]) Smoking 02/14/2020 12:00:00 AM EDT Current Smoker completed Curre nt Smoker eCW1 ([facility] [place]) Smoking 02/14/2020 12:00:00 AM EDT Current Smoker completed Curre nt Smoker eCW1 ([facility] [place]) Smoking 02/14/2020 12:00:00 AM EDT Current Smoker completed Curre nt Smoker eCW1 ([facility] [place]) Smoking 01/31/2020 12:00:00 AM EDT Current Smoker completed Curre nt Smoker eCW1 ([facility] [place]) Smoking 11/07/2019 12:00:00 AM EDT Current Smoker completed Curre nt Smoker eCW1 ([facility] [place]) Smoking 11/07/2019 12:00:00 AM EDT Current Smoker completed Curre nt Smoker eCW1 ([facility] [place]) Smoking 10/19/2019 12:00:00 AM EDT Unknown if ever smoked comp leted Unknown if ever smoked [facility] ([facility]) Smoking 10/05/2019 12:00:00 AM EDT Unknown if ever smoked comp leted Unknown if ever smoked [facility] ([facility]) Smoking 10/03/2019 12:00:00 AM EDT Unknown if ever smoked comp leted Unknown if ever smoked [facility] ([facility]) Smoking 09/13/2019 12:00:00 AM EDT Unknown if ever smoked comp leted Unknown if ever smoked [facility] ([facility]) Smoking 07/24/2019 12:00:00 AM EDT Unknown if ever smoked comp leted Unknown if ever smoked [facility] ([facility]) Smoking 07/19/2019 12:00:00 AM EDT Unknown if ever smoked comp leted Unknown if ever smoked [facility] ([facility]) Smoking 07/12/2019 12:00:00 AM EDT Unknown if ever smoked comp leted Unknown if ever smoked [facility] ([facility]) Smoking 07/07/2019 12:00:00 AM EDT Unknown if ever smoked comp leted Unknown if ever smoked [facility] ([facility]) Smoking 06/14/2019 12:00:00 AM EST Unknown if ever smoked comp leted Unknown if ever smoked [facility] ([facility]) Smoking 05/17/2019 12:00:00 AM EST Unknown if ever smoked comp leted Unknown if ever smoked [facility] ([facility]) Smoking 05/02/2019 12:00:00 AM EST Unknown if ever smoked comp leted Unknown if ever smoked [facility] ([facility]) Smoking 04/17/2019 12:00:00 AM EST Unknown if ever smoked comp leted Unknown if ever smoked [facility] ([facility]) Smoking 04/13/2019 12:00:00 AM EST Unknown if ever smoked comp leted Unknown if ever smoked [facility] ([facility]) Smoking 04/05/2019 12:00:00 AM EST Unknown if ever smoked comp leted Unknown if ever smoked [facility] ([facility]) Smoking 03/22/2019 12:00:00 AM EST Unknown if ever smoked comp leted Unknown if ever smoked [facility] ([facility]) Smoking 03/06/2019 12:00:00 AM EST Unknown if ever smoked comp leted Unknown if ever smoked [facility] ([facility]) Smoking 03/02/2019 12:00:00 AM EST Unknown if ever smoked comp leted Unknown if ever smoked [facility] ([facility]) Vital Signs ID Date Data Source UNK Name Value Range Interpretation Code Description Data Source(s) Body mass index (BMI) [Ratio] 55.7 kg/m2 55.7 k g/m2 MEDENT ([facility] [place], [facility]) Body height 61 [in_i] 61 [in_i] MEDENT ([facility], [facility]) 5'1" Body weight 295.00 [lb_av] 295.00 [lb_av] MEDEN T ([facility], [facility]) Body temperature 98.6 [degF] 98.6 [degF] MEDENT ([facility], [facility]) Oxygen saturation in Arterial blood by Pulse oximetry 99 % 99 % [facility] ([facility], [facility]) Respiratory rate 16 /min 16 /min MEDENT ( [facility], [facility]) Heart rate 99 /min 99 /min MEDENT ([facility] [place], [facility]) Diastolic blood pressure 77 mm[Hg] 77 mm[Hg] MEDENT ([facility], [facility]) Systolic blood pressure 144 mm[Hg] 144 mm[Hg] M EDENT ([facility] [place], [facility]) Body temperature 97.2 [degF] 97.2 [degF] MEDENT ([facility]) Body weight 133.812 kg 133.812 kg MEDENT ([facility]) Body mass index (BMI) [Ratio] 55.7 kg/m2 55.7 k g/m2 MEDENT ([facility]) Heart rate 93 /min 93 /min [facility] ([facility]) Diastolic blood pressure 77 mm[Hg] 77 mm[Hg] MEDENT ([facility]) Systolic blood pressure 137 mm[Hg] 137 mm[Hg] M EDENT ([facility]) Body weight 295.00 [lb_av] 295.00 [lb_av] MEDEN T ([facility]) Body height 61 [in_i] 61 [in_i] MEDENT ([facility]) 5'1" Diastolic blood pressure 0 mm[Hg] Normal (applies to non-numeric results) 0 mm[Hg] [facility] ([facility]) Systolic blood pressure 0 mm[Hg] Normal (applies t o non-numeric results) 0 mm[Hg] [facility] ([facility]) Body mass index (BMI) [Ratio] 0.00 kg/m2 No rmal (applies to non-numeric results) 0.00 kg/m2 [facility] ([facility]) Body weight Measured 0.00 lbs Normal (applies to n on-numeric results) 0.00 lbs [facility] ([facility]) Body height 0.00 in Normal (applies to non-numeric resu lts) 0.00 in [facility] ([facility]) [place] body weight 105 [lb_av] 105 [lb_av] MEDEN T ([facility]) Oxygen saturation in Arterial blood by Pulse oximetry 99 % 99 % [facility] ([facility]) Body temperature 97.1 [degF] 97.1 [degF] [facility] ([facility]) Respiratory rate 24 /min 24 /min MEDENT ( [facility]) Heart rate 92 /min 92 /min [facility] ([facility]) Body mass index (BMI) [Ratio] 55.9 kg/m2 55.9 k g/m2 MEDENT ([facility]) Body weight 299.00 [lb_av] 299.00 [lb_av] MEDEN T ([facility]) Body height 61.3 [in_i] 61.3 [in_i] MEDENT ([facility]) 5'1.30" Diastolic blood pressure 80 mm[Hg] 80 mm[Hg] MEDENT ([facility]) Systolic blood pressure 126 mm[Hg] 126 mm[Hg] M EDENT ([facility]) Body mass index (BMI) [Ratio] 57.31 kg/m2 57.31 kg/m2 W1 ([facility]) Body height 60.5 [in_i] 60.5 [in_i] W1 ([facility]) Body weight 298.4 [lb_av] 298.4 [lb_av] W1 ([facility]) [place] body weight 105 [lb_av] 105 [lb_av] MEDEN T ([facility]) Oxygen saturation in Arterial blood by Pulse oximetry 97 % 97 % MEDENT ([facility]) Body temperature 98.1 [degF] 98.1 [degF] MEDENT ([facility]) Respiratory rate 20 /min 20 /min MEDENT ( [facility]) Heart rate 104 /min 104 /min MEDENT ([facility]) Body mass index (BMI) [Ratio] 56.1 kg/m2 56.1 k g/m2 MEDENT ([facility]) Body weight 300.00 [lb_av] 300.00 [lb_av] MEDEN T ([facility]) Body height 61.3 [in_i] 61.3 [in_i] MEDENT ([facility]) 5'1.30" Diastolic blood pressure 68 mm[Hg] 68 mm[Hg] MEDENT ([facility]) Systolic blood pressure 136 mm[Hg] 136 mm[Hg] M EDENT ([facility]) Diastolic blood pressure 67 mm[Hg] 67 mm[Hg] eCW1 ([facility]) Systolic blood pressure 119 mm[Hg] 119 mm[Hg] e CW1 ([facility]) Body temperature 96.7 [degF] 96.7 [degF] eCW1 ( [facility] [place]) Respiratory rate 18 /min 18 /min eCW1 ([facility]) Heart rate 98 /min 98 /min eCW1 ([facility]) Body mass index (BMI) [Ratio] 56.24 kg/m2 56.24 kg/m2 eCW1 ([facility] [place]) Body height 60.5 [in_i] 60.5 [in_i] eCW1 ([facility]) Body weight 292.8 [lb_av] 292.8 [lb_av] eCW1 ([facility]) Body temperature 97.0 [degF] 97.0 [degF] MEDENT ([facility]) Body weight 132.451 kg 132.451 kg MEDENT ([facility]) Body mass index (BMI) [Ratio] 55.2 kg/m2 [...] blood pressure 72 mm[Hg] 72 mm[Hg] eCW1 ([facility] [place]) Systolic blood pressure 118 mm[Hg] 118 mm[Hg] e CW1 ([facility] [place]) Body mass index (BMI) [Ratio] 55.70 kg/m2 55.70 kg/m2 eCW1 ([facility] [place]) Body height 60.5 [in_i] 60.5 [in_i] eCW1 ([facility]) Body weight 290 [lb_av] 290 [lb_av] eCW1 ([facility]) Diastolic blood pressure 79 mm[Hg] 79 mm[Hg] eCW1 ([facility] [place]) Systolic blood pressure 134 mm[Hg] 134 mm[Hg] e CW1 ([facility] [place]) Body temperature 97.9 [degF] 97.9 [degF] eCW1 ( [facility] [place]) Respiratory rate 18 /min 18 /min eCW1 ([facility]) Heart rate 103 /min 103 /min eCW1 ([facility]) Body mass index (BMI) [Ratio] 56.74 kg/m2 56.74 kg/m2 eCW1 ([facility] [place]) Body height 60.5 [in_i] 60.5 [in_i] eCW1 ([facility]) Body weight 295.4 [lb_av] 295.4 [lb_av] eCW1 ([facility]) Body temperature 96.8 [degF] 96.8 [degF] MEDENT ([facility] ) Body mass index (BMI) [Ratio] 55.5 kg/m2 55.5 k g/m2 MEDENT ([facility]) Body weight 294.00 [lb_av] 294.00 [lb_av] MEDEN T ([facility]) Body height 61 [in_i] 61 [in_i] MEDENT ([facility]) 5'1" Body temperature 968.0 [degF] 968.0 [degF] MEDE NT ([facility]) Diastolic blood pressure 69 mm[Hg] 69 mm[Hg] eCW1 ([facility]) Systolic blood pressure 140 mm[Hg] 140 mm[Hg] e CW1 ([facility] [place]) Body temperature 96.7 [degF] 96.7 [degF] eCW1 ( [facility] [place]) Respiratory rate 18 /min 18 /min eCW1 ([facility]) Heart rate 97 /min 97 /min eCW1 ([facility]) Body mass index (BMI) [Ratio] 56.43 kg/m2 56.43 kg/m2 eCW1 ([facility]) Body height 60.5 [in_i] 60.5 [in_i] eCW1 ([facility]) Body weight 293.8 [lb_av] 293.8 [lb_av] eCW1 ([facility]) Diastolic blood pressure 75 mm[Hg] 75 mm[Hg] eCW1 ([facility]) Systolic blood pressure 126 mm[Hg] 126 mm[Hg] e CW1 ([facility]) Body temperature 97.8 [degF] 97.8 [degF] eCW1 ( [facility]) Respiratory rate 18 /min 18 /min eCW1 ([facility]) Heart rate 98 /min 98 /min eCW1 ([facility]) Body mass index (BMI) [Ratio] 59.73 kg/m2 59.73 kg/m2 eCW1 ([facility]) Body height 60.5 [in_i] 60.5 [in_i] eCW1 ([facility]) Body weight 311 [lb_av] 311 [lb_av] eCW1 ([facility]) Body mass index (BMI) [Ratio] 57.5 kg/m2 57.5 k g/m2 MEDENT ([facility]) Body weight 304.50 [lb_av] 304.50 [lb_av] MEDEN T ([facility]) Body height 61 [in_i] 61 [in_i] MEDENT ([facility]) 5'1" Body temperature 97.5 [degF] 97.5 [degF] MEDENT ([facility]) Body surface area Derived from formula 2.26 m2 2.26 m2 [facility] ([facility]) Body weight 138.348 kg 138.348 kg [facility] ([facility]) [place] body weight 105 [lb_av] 105 [lb_av] MEDEN T ([facility]) Body mass index (BMI) [Ratio] 57.6 kg/m2 57.6 k g/m2 [facility] ([facility]) Body weight 305.00 [lb_av] 305.00 [lb_av] MEDEN T ([facility]) Body height 61 [in_i] 61 [in_i] [facility] ([facility]) 5'1" Diastolic blood pressure 86 mm[Hg] 86 mm[Hg] ODESSA ([facility]) Systolic blood pressure 150 mm[Hg] 150 mm[Hg] [facility] ([facility]) Inhaled oxygen concentration 21 % 21 % O[facility] ([facility]) Inhaled oxygen flow rate 0 L/min 0 L/min O[facility] ([facility]) Oxygen saturation in Arterial blood by Pulse oximetry 97 % 97 % [facility] ([facility]) Body surface area Derived from formula 2.27 m2 2.27 m2 O[facility] ([facility]) Body mass index (BMI) [Ratio] 58.2 kg/m2 58.2 k g/m2 ODESSA ([facility]) Body weight 308 [lb_av] 308 [lb_av] SOFIA ([facility]) Body height 61 [in_i] 61 [in_i] ODESSA ([facility]) Body temperature 96.4 [degF] 96.4 [degF] [place] ([facility]) Respiratory rate 24 /min 24 /min [facility] ([facility]) Heart rate 101 /min 101 /min O[facility]SA ([facility]) Diastolic blood pressure 86 mm[Hg] 86 mm[Hg] O[facility] ([facility]) Systolic blood pressure 136 mm[Hg] 136 mm[Hg] [facility] ([facility]) Inhaled oxygen concentration 21 % 21 % [facility] ([facility]) Inhaled oxygen flow rate 0 L/min 0 L/min [facility] ([facility]) Oxygen saturation in Arterial blood by Pulse oximetry 99 % 99 % [facility] ([facility]) Body surface area Derived from formula 2.26 m2 2.26 m2 [facility] ([facility]) Body mass index (BMI) [Ratio] 57.6 kg/m2 57.6 k g/m2 [facility] ([facility]) Body weight 305 [lb_av] 305 [lb_av] ODESSA ([facility]) Body height 61 [in_i] 61 [in_i] ODESSA ([facility]) Body temperature 97.8 [degF] 97.8 [degF] [place] ([facility]) Respiratory rate 24 /min 24 /min O[facility] ([facility]) Heart rate 97 /min 97 /min ODESSA ([facility]) Diastolic blood pressure 80 mm[Hg] 80 mm[Hg] [facility] ([facility]) Systolic blood pressure 130 mm[Hg] 130 mm[Hg] [facility] ([facility]) Oxygen saturation in Arterial blood by Pulse oximetry 95 % 95 % [facility] ([facility]) Body surface area Derived from formula 2.24 m2 2.24 m2 [facility] ([facility]) Body mass index (BMI) [Ratio] 56.7 kg/m2 56.7 k g/m2 [facility] ([facility]) Body weight 300 [lb_av] 300 [lb_av] ODESSA ([facility]) Body height 61 [in_i] 61 [in_i] SOFIA ([facility]) Body temperature 98.7 [degF] 98.7 [degF] [facility] ([facility]) Respiratory rate 24 /min 24 /min SOFIA ([facility]) Heart rate 108 /min 108 /min SOFIA ([facility]) Diastolic blood pressure 0 mm[Hg] Normal (applies to non-numeric results) 0 mm[Hg] [facility] ([facility]) Systolic blood pressure 0 mm[Hg] Normal (applies t o non-numeric results) 0 mm[Hg] [facility] ([facility]) Body mass index (BMI) [Ratio] 0.00 kg/m2 No rmal (applies to non-numeric results) 0.00 kg/m2 [facility] ([facility]) Body weight Measured 0.00 lbs Normal (applies to n on-numeric results) 0.00 lbs [facility] ([facility]) Body height 0.00 in Normal (applies to non-numeric resu lts) 0.00 in [facility] ([facility]) Body temperature 98.8 [degF] 98.8 [degF] MEDENT ([facility] [place], [facility]) Oxygen saturation in Arterial blood by Pulse oximetry 98 % 98 % MEDENT ([facility] [place], [facility]) Respiratory rate 18 /min 18 /min MEDENT ( [facility] [place], [facility]) Heart rate 82 /min 82 /min MEDENT ([facility], [facility]) Diastolic blood pressure 76 mm[Hg] 76 mm[Hg] MEDENT ([facility] [place], [facility]) Systolic blood pressure 143 mm[Hg] 143 mm[Hg] M EDENT ([facility], [facility]) Body mass index (BMI) [Ratio] 55.7 kg/m2 55.7 k g/m2 MEDENT ([facility], [facility]) Body height 61 [in_i] 61 [in_i] MEDENT ([facility], [facility]) 5'1" Body weight 295.00 [lb_av] 295.00 [lb_av] MEDEN T ([facility], [facility]) Body mass index (BMI) [Ratio] 55.5 kg/m2 55.5 k g/m2 MEDENT ([facility], [facility]) Body height 61 [in_i] 61 [in_i] MEDENT ([facility] [place], [facility]) 5'1" Body weight 294.00 [lb_av] 294.00 [lb_av] MEDEN T ([facility], [facility]) Body temperature 99.2 [degF] 99.2 [degF] MEDENT ([facility] [place], [facility]) Oxygen saturation in Arterial blood by Pulse oximetry 98 % 98 % MEDENT ([facility], [facility]) Respiratory rate 17 /min 17 /min MEDENT ( [facility], [facility]) Heart rate 85 /min 85 /min MEDENT ([facility] [place], [facility]) Diastolic blood pressure 79 mm[Hg] 79 mm[Hg] MEDENT ([facility] [place], [facility]) Systolic blood pressure 115 mm[Hg] 115 mm[Hg] M EDENT ([facility] [place], [facility]) Diastolic blood pressure 71 mm[Hg] 71 mm[Hg] eCW1 ([facility]) Systolic blood pressure 145 mm[Hg] 145 mm[Hg] e CW1 ([facility]) Body temperature 98.2 [degF] 98.2 [degF] eCW1 ( [facility] [place]) Respiratory rate 18 /min 18 /min eCW1 ([facility]) Heart rate 95 /min 95 /min eCW1 ([facility]) Body mass index (BMI) [Ratio] 57.08 kg/m2 57.08 kg/m2 eCW1 ([facility]) Body height 60.5 [in_us] 60.5 [in_us] eCW1 ([facility]) Body weight Measured 297.2 [lb_av] 297.2 [lb_av ] eCW1 ([facility] [place]) Diastolic blood pressure 82 mm[Hg] 82 mm[Hg] eCW1 ([facility] [place]) Systolic blood pressure 145 mm[Hg] 145 mm[Hg] e CW1 ([facility]) Body temperature 98.7 [degF] 98.7 [degF] eCW1 ( [facility] [place]) Respiratory rate 18 /min 18 /min eCW1 ([facility]) Heart rate 111 /min 111 /min eCW1 ([facility]) Body mass index (BMI) [Ratio] 56.47 kg/m2 56.47 kg/m2 eCW1 ([facility] [place]) Body height 60.5 [in_us] 60.5 [in_us] eCW1 ([facility]) Body weight Measured 294 [lb_av] 294 [lb_av] eC W1 ([facility]) Diastolic blood pressure 83 mm[Hg] 83 mm[Hg] eCW1 ([facility] [place]) Systolic blood pressure 158 mm[Hg] 158 mm[Hg] e CW1 ([facility]) Body temperature 95.6 [degF] 95.6 [degF] eCW1 ( [facility]) Respiratory rate 18 /min 18 /min eCW1 ([facility]) Heart rate 117 /min 117 /min eCW1 ([facility]) Body mass index (BMI) [Ratio] 56.16 kg/m2 56.16 kg/m2 eCW1 ([facility]) Body height 60.5 [in_us] 60.5 [in_us] eCW1 ([facility]) Body weight Measured 292.4 [lb_av] 292.4 [lb_av ] eCW1 ([facility]) Diastolic blood pressure 0 mm[Hg] Normal (applies to non-numeric results) 0 mm[Hg] [facility] ([facility]) Systolic blood pressure 0 mm[Hg] Normal (applies t o non-numeric results) 0 mm[Hg] [facility] ([facility]) Body mass index (BMI) [Ratio] 0.00 kg/m2 No rmal (applies to non-numeric results) 0.00 kg/m2 [facility] ([facility]) Body weight Measured 0.00 lbs Normal (applies to n on-numeric results) 0.00 lbs [facility] ([facility]) Body height 0.00 in Normal (applies to non-numeric resu lts) [facility] Diastolic blood pressure 92 mm[Hg] 92 mm[Hg] eCW1 ([facility]) Systolic blood pressure 161 mm[Hg] 161 mm[Hg] e CW1 ([facility]) Body temperature 96.0 [degF] 96.0 [degF] eCW1 ( [facility]) Respiratory rate 18 /min 18 /min eCW1 ([facility]) Heart rate 76 /min 76 /min eCW1 ([facility]) Body mass index (BMI) [Ratio] 53.01 kg/m2 53.01 kg/m2 eCW1 ([facility]) Body height 60.5 [in_us] 60.5 [in_us] eCW1 ([facility]) Body weight Measured 276 [lb_av] 276 [lb_av] eC W1 ([facility]) Diastolic blood pressure 90 mm[Hg] 90 mm[Hg] O[facility] ([facility]) Systolic blood pressure 134 mm[Hg] 134 mm[Hg] [facility] Oxygen saturation in Arterial blood by Pulse oximetry 98 % 98 % [facility] ([facility]) Body surface area Derived from formula 2.19 m2 2.19 m2 [facility] ([facility]) Body mass index (BMI) [Ratio] 53.3 kg/m2 53.3 k g/m2 [facility] ([facility]) Body weight 282 [lb_av] 282 [lb_av] O[facility]SA ([facility]) Body height 61 [in_i] 61 [in_i] ODESSA ([facility]) Body temperature 98.7 [degF] 98.7 [degF] [place] [facility] ([facility]) Respiratory rate 24 /min 24 /min O[facility] ([facility]) Heart rate 112 /min 112 /min ODESSA ([facility]) Body mass index (BMI) [Ratio] 54.6 kg/m2 54.6 k g/m2 MEDENT ([facility] [place], [facility]) Body height 61 [in_i] 61 [in_i] MEDENT ([facility] [place], [facility]) 5'1" Body weight 289.00 [lb_av] 289.00 [lb_av] MEDEN T ([facility], [facility]) Body temperature 99.3 [degF] 99.3 [degF] MEDENT ([facility], [facility]) Oxygen saturation in Arterial blood by Pulse oximetry 96 % 96 % MEDENT ([facility], [facility]) Respiratory rate 12 /min 12 /min MEDENT ( [facility], [facility]) Heart rate 98 /min 98 /min MEDENT ([facility] [place], [facility]) Diastolic blood pressure 78 mm[Hg] 78 mm[Hg] MEDENT ([facility], [facility]) Systolic blood pressure 117 mm[Hg] 117 mm[Hg] M EDENT ([facility], [facility]) Body mass index (BMI) [Ratio] 55.51 kg/m2 55.51 kg/m2 eCW1 ([facility]) Body height 60.5 [in_us] 60.5 [in_us] eCW1 ([facility]) Body weight Measured 289 [lb_av] 289 [lb_av] eC W1 ([facility]) Body mass index (BMI) [Ratio] 53.6 kg/m2 [...] blood pressure 81 mm[Hg] 81 mm[Hg] eCW1 ([facility]) Systolic blood pressure 135 mm[Hg] 135 mm[Hg] e CW1 ([facility]) Body temperature 98.1 [degF] 98.1 [degF] eCW1 ( [facility]) Respiratory rate 18 /min 18 /min eCW1 ([facility]) Heart rate 81 /min 81 /min eCW1 ([facility]) Body mass index (BMI) [Ratio] 55.51 kg/m2 55.51 kg/m2 eCW1 ([facility]) Body height 60.5 [in_us] 60.5 [in_us] eCW1 ([facility]) Body weight Measured 289.0 [lb_av] 289.0 [lb_av ] eCW1 ([facility]) Diastolic blood pressure 60 mm[Hg] 60 mm[Hg] SOFIA ([facility]) Systolic blood pressure 110 mm[Hg] 110 mm[Hg] [facility] Inhaled oxygen concentration 21 % 21 % ODESSA ([facility]) Inhaled oxygen flow rate 0 L/min 0 L/min ODESSA ([facility]) Oxygen saturation in Arterial blood by Pulse oximetry 97 % 97 % ODESSA ([facility]) Body surface area Derived from formula 2.21 m2 2.21 m2 ODESSA ([facility]) Body mass index (BMI) [Ratio] 54.6 kg/m2 54.6 k g/m2 ODESSA ([facility]) Body weight 289 [lb_av] 289 [lb_av] ODESSA ([facility]) Body height 61 [in_i] 61 [in_i] SOFIA ([facility]) Respiratory rate 22 /min 22 /min SOFIA ([facility]) Heart rate 75 /min 75 /min SOFIA ([facility]) Diastolic blood pressure 76 mm[Hg] 76 mm[Hg] eCW1 ([facility]) Systolic blood pressure 131 mm[Hg] 131 mm[Hg] e CW1 ([facility]) Body temperature 97.2 [degF] 97.2 [degF] eCW1 ( [facility]) Respiratory rate 18 /min 18 /min eCW1 ([facility]) Heart rate 92 /min 92 /min eCW1 ([facility]) Body mass index (BMI) [Ratio] 55.66 kg/m2 55.66 kg/m2 eCW1 ([facility]) Body height 60.5 [in_us] 60.5 [in_us] eCW1 ([facility]) Body weight Measured 289.8 [lb_av] 289.8 [lb_av ] eCW1 ([facility]) Diastolic blood pressure 84 mm[Hg] 84 mm[Hg] eCW1 ([facility]) Systolic blood pressure 141 mm[Hg] 141 mm[Hg] e CW1 ([facility]) Body temperature 97.5 [degF] 97.5 [degF] eCW1 ( [facility]) Respiratory rate 18 /min 18 /min eCW1 ([facility]) Heart rate 90 /min 90 /min eCW1 ([facility]) Body mass index (BMI) [Ratio] 55.43 kg/m2 55.43 kg/m2 eCW1 ([facility]) Body height 60.5 [in_us] 60.5 [in_us] eCW1 ([facility]) Body weight Measured 288.6 [lb_av] 288.6 [lb_av ] eCW1 ([facility]) Diastolic blood pressure 0 mm[Hg] Normal (applies to non-numeric results) 0 mm[Hg] Accumedic ([facility]) Systolic blood pressure 0 mm[Hg] Normal (applies t o non-numeric results) 0 mm[Hg] Accumedic ([facility]) Body mass index (BMI) [Ratio] 0.00 kg/m2 No rmal (applies to non-numeric results) 0.00 kg/m2 Accumedic ([facility]) Body weight Measured 0.00 lbs Normal (applies to n on-numeric results) 0.00 lbs Accumed[facility] ([facility]) Body height 0.00 in Normal (applies to non-numeric resu lts) 0.00 in Accumedic ([facility]) Diastolic blood pressure 78 mm[Hg] 78 mm[Hg] ODESSA ([facility]) Systolic blood pressure 126 mm[Hg] 126 mm[Hg] [facility] Inhaled oxygen concentration 21 % 21 % ODESSA ([facility]) Inhaled oxygen flow rate 0 L/min 0 L/min ODESSA ([facility]) Oxygen saturation in Arterial blood by Pulse oximetry 99 % 99 % ODESSA ([facility]) Body surface area Derived from formula 2.21 m2 2.21 m2 ODESSA ([facility]) Body mass index (BMI) [Ratio] 54.6 kg/m2 54.6 k g/m2 ODESSA ([facility]) Body weight 289 [lb_av] 289 [lb_av] ODESSA ([facility]) Body height 61 [in_i] 61 [in_i] ODESSA ([facility]) Body temperature 97.8 [degF] 97.8 [degF] GREENW ([facility]) Respiratory rate 24 /min 24 /min SOFIA ([facility]) Heart rate 96 /min 96 /min ODESSA [facility]) Diastolic blood pressure 66 mm[Hg] 66 mm[Hg] eCW1 ([facility]) Systolic blood pressure 112 mm[Hg] 112 mm[Hg] e CW1 ([facility]) Body temperature 96.2 [degF] 96.2 [degF] eCW1 ( [facility]) Respiratory rate 18 /min 18 /min eCW1 ([facility]) Heart rate 94 /min 94 /min eCW1 ([facility]) Body mass index (BMI) [Ratio] 57.27 kg/m2 57.27 kg/m2 eCW1 ([facility]) Body height 60.5 [in_us] 60.5 [in_us] eCW1 ([facility]) Body weight Measured 298.2 [lb_av] 298.2 [lb_av ] eCW1 ([facility]) Body mass index (BMI) [Ratio] 56.47 kg/m2 56.47 kg/m2 eCW1 ([facility]) Body height 60.5 [in_us] 60.5 [in_us] eCW1 ([facility]) Body weight Measured 294 [lb_av] 294 [lb_av] eC W1 ([facility]) Diastolic blood pressure 68 mm[Hg] 68 mm[Hg] eCW1 ([facility]) Systolic blood pressure 122 mm[Hg] 122 mm[Hg] e CW1 ([facility]) Body temperature 98.4 [degF] 98.4 [degF] eCW1 ( [facility]) Respiratory rate 18 /min 18 /min eCW1 ([facility]) Heart rate 66 /min 66 /min eCW1 ([facility]) Body mass index (BMI) [Ratio] 56.51 kg/m2 56.51 kg/m2 eCW1 ([facility]) Body height 60.5 [in_us] 60.5 [in_us] eCW1 ([facility]) Body weight Measured 294.2 [lb_av] 294.2 [lb_av ] eCW1 ([facility]) Diastolic blood pressure 0 mm[Hg] Normal (applies to non-numeric results) 0 mm[Hg] Accumedic ([facility]) Systolic blood pressure 0 mm[Hg] Normal (applies t o non-numeric results) 0 mm[Hg] Accumed[facility] ([facility]) Body mass index (BMI) [Ratio] 0.00 kg/m2 No rmal (applies to non-numeric results) 0.00 kg/m2 Accumed[facility] ([facility]) Body weight Measured 292.00 lbs Normal (applies to n on-numeric results) 292.00 lbs Accumedic ([facility]) Body height 0.00 in Normal (applies to non-numeric resu lts) 0.00 in [facility] ([facility]) Patient Treatment Plan of Care Planned Activity Planned Date Details Description Data Source (s) Ketorolac Tromethamine 10 MG Oral Tablet 03/19/2020 12:00:00 AM EST eCW1 ([facility]) Ketorolac Tromethamine 10 MG Oral Tablet 03/19/2020 12:00:00 AM EST eCW1 ([facility]) Ketorolac Tromethamine 10 MG Oral Tablet 03/19/2020 12:00:00 AM EST eCW1 ([facility]) Acetaminophen 300 MG / Codeine Phosphate 60 MG Oral Ta blet 01/17/2020 12:00:00 AM EDT eCW1 ([facility]) Acetaminophen 300 MG / Codeine Phosphate 60 MG Oral Ta blet 01/17/2020 12:00:00 AM EDT eCW1 ([facility]) Acetaminophen 300 MG / Codeine Phosphate 60 MG Oral Ta blet 01/17/2020 12:00:00 AM EDT eCW1 ([facility]) Furosemide 40 MG Oral Tablet [Lasix] 01/09/2020 12:00:00 AM EDT SOFIA ([facility]) Losartan Potassium 25 MG Oral Tablet 01/09/2020 12:00:00 AM EDT SFOIA ([facility]) 200 ACTUAT Albuterol 0.09 MG/ACTUAT Metered Dose Inhal er [Ventolin] 01/09/2020 12:00:00 AM EDT SOFIA ([facility]) montelukast 10 MG Oral Tablet [Singulair] 01/09/2020 12:00:00 AM ED T SOFIA ([facility]) Spironolactone 25 MG Oral Tablet 01/09/2020 12:00:00 AM EDT SOFIA ([facility]) Sumatriptan 50 MG Oral Tablet [Imitrex] 01/09/2020 12:00:00 AM EDT ODESSA ([facility]) cetirizine hydrochloride 10 MG Oral Tablet 01/09/2020 12:00:00 AM E DT ODESSA ([facility]) Fluticasone Propionate 50 MCG/ACT Nasal Suspension 01/09/2020 12 :00:00 AM EDT ODESSA ([facility]) Docusate Sodium 100 MG Oral Capsule [Dulcolax Stool So ftener] 01/09/2020 12:00:00 AM EDT ODESSA ([facility]) Metformin hydrochloride 1000 MG Oral Tablet 01/09/2020 12:00:00 AM EDT ODESSA ([facility]) Lancets Ultra Fine Miscellaneous 01/09/2020 12:00:00 AM EDT ODESSA ([facility]) Nystatin 100 UNT/MG Topical Powder 01/09/2020 12:00:00 AM EDT ODESSA ([facility]) OneTouch Ultra In Vitro Strip 01/09/2020 12:00:00 AM EDT ODESSA ([facility]) OneTouch Delica Lancets 33G Miscellaneous 01/09/2020 12:00:00 AM ED T ODESSA ([facility]) NITROFURANTOIN, MACROCRYSTALS 50 MG Oral Capsule 10/25/2019 12:00:0 0 AM EDT ODESSA ([facility]) Ampicillin 500 MG Oral Capsule 10/16/2019 12:00:00 AM EDT ODESSA ([facility]) OneTouch Delica Lancets 33G Miscellaneous 10/10/2019 12:00:00 AM ED T ODESSA ([facility]) Furosemide 40 MG Oral Tablet [Lasix] 10/10/2019 12:00:00 AM EDT ODESSA ([facility]) Metformin hydrochloride 1000 MG Oral Tablet 10/10/2019 12:00:00 AM EDT ODESSA ([facility]) Losartan Potassium 25 MG Oral Tablet 10/10/2019 12:00:00 AM EDT ODESSA ([facility]) Sumatriptan 50 MG Oral Tablet [Imitrex] 10/10/2019 12:00:00 AM EDT ODESSA ([facility]) montelukast 10 MG Oral Tablet [Singulair] 10/10/2019 12:00:00 AM ED T ODESSA ([facility]) Spironolactone 25 MG Oral Tablet 10/10/2019 12:00:00 AM EDT ODESSA ([facility]) Fluticasone Propionate 50 MCG/ACT Nasal Suspension 10/10/2019 12 :00:00 AM EDT ODESSA ([facility]) Docusate Sodium 100 MG Oral Capsule [Dulcolax Stool So ftener] 10/10/2019 12:00:00 AM EDT ODESSA ([facility]) cetirizine hydrochloride 10 MG Oral Tablet 10/10/2019 12:00:00 AM E DT ODESSA ([facility]) Lancets Ultra Fine Miscellaneous 10/10/2019 12:00:00 AM EDT ODESSA ([facility]) 200 ACTUAT Albuterol 0.09 MG/ACTUAT Metered Dose Inhal er [Ventolin] 10/03/2019 12:00:00 AM EDT ODESSA ([facility]) Nystatin 100 UNT/MG Topical Powder 10/03/2019 12:00:00 AM EDT ODESSA ([facility]) OneTouch Ultra In Vitro Strip 09/26/2019 12:00:00 AM EDT ODESSA ([facility]) Methocarbamol 750 MG Oral Tablet [Robaxin] 08/30/2019 12:00:00 AM E DT eCW1 ([facility]) Methocarbamol 750 MG Oral Tablet [Robaxin] 08/30/2019 12:00:00 AM E DT eCW1 ([facility]) Methocarbamol 750 MG Oral Tablet [Robaxin] 08/30/2019 12:00:00 AM E DT eCW1 ([facility]) Methocarbamol 750 MG Oral Tablet [Robaxin] 08/30/2019 12:00:00 AM E DT eCW1 ([facility]) Methocarbamol 750 MG Oral Tablet [Robaxin] 08/30/2019 12:00:00 AM E DT eCW1 ([facility]) Ketorolac Tromethamine 10 MG Oral Tablet 08/30/2019 12:00:00 AM EDT eCW1 ([facility]) tizanidine 4 MG Oral Tablet 07/31/2019 12:00:00 AM EDT eCW1 ([facility]) Cyclobenzaprine hydrochloride 10 MG Oral Tablet 07/27/2019 12:00:00 AM EDT eCW1 ([facility]) Cyclobenzaprine hydrochloride 10 MG Oral Tablet 07/27/2019 12:00:00 AM EDT eCW1 ([facility]) Ciprofloxacin 250 MG Oral Tablet [Cipro] 07/18/2019 12:00:00 AM EDT ODESSA ([facility]) Sumatriptan 50 MG Oral Tablet [Imitrex] 07/11/2019 12:00:00 AM EDT ODESSA ([facility]) Metformin hydrochloride 1000 MG Oral Tablet 07/11/2019 12:00:00 AM EDT ODESSA ([facility]) Lancets Ultra Fine Miscellaneous 07/11/2019 12:00:00 AM EDT ODESSA ([facility]) Losartan Potassium 25 MG Oral Tablet 07/11/2019 12:00:00 AM EDT ODESSA ([facility]) Furosemide 40 MG Oral Tablet [Lasix] 07/11/2019 12:00:00 AM EDT ODESSA ([facility]) Fluticasone Propionate 50 MCG/ACT Nasal Suspension 07/11/2019 12 :00:00 AM EDT ODESSA ([facility]) OneTouch Ultra Blue In Vitro Strip 07/11/2019 12:00:00 AM EDT ODESSA ([facility]) montelukast 10 MG Oral Tablet [Singulair] 07/11/2019 12:00:00 AM ED T ODESSA ([facility]) Nystatin 100 UNT/MG Topical Powder 07/11/2019 12:00:00 AM EDT ODESSA ([facility]) cetirizine hydrochloride 10 MG Oral Tablet 07/11/2019 12:00:00 AM E DT ODESSA ([facility]) Docusate Sodium 100 MG Oral Capsule [Dulcolax Stool So ftener] 07/11/2019 12:00:00 AM EDT SOFIA ([facility]) Spironolactone 25 MG Oral Tablet 07/11/2019 12:00:00 AM EDT SOFIA ([facility]) Evelyn Jaramillo Lancets 33G Miscellaneous 07/03/2019 12:00:00 AM ED T SOFIA ([facility]) 200 ACTUAT Albuterol 0.09 MG/ACTUAT Metered Dose Inhal er [Ventolin] 07/03/2019 12:00:00 AM EDT SOFIA ([facility]) Clonidine Hydrochloride 0.1 MG Oral Tablet 06/28/2019 12:00:00 AM E DT eCW1 ([facility]) OneTouch Ultra Blue In Vitro Strip 05/29/2019 12:00:00 AM EST SOFIA ([facility]) Oxycodone Hydrochloride 5 MG Oral Tablet 05/24/2019 12:00:00 AM EST eCW1 ([facility]) Morphine Sulfate 15 MG Extended Release Oral Tablet 05/24/19 12:00:00 AM EST eCW1 ([facility]) Oxycodone Hydrochloride 5 MG Oral Tablet 05/17/2019 12:00:00 AM EST eCW1 ([facility]) 200 ACTUAT Albuterol 0.09 MG/ACTUAT Metered Dose Inhal er [Ventolin] 04/10/2019 12:00:00 AM EST SOFIA ([facility]) Spironolactone 25 MG Oral Tablet 04/10/2019 12:00:00 AM EST SOFIA ([facility]) montelukast 10 MG Oral Tablet [Singulair] 04/10/2019 12:00:00 AM ES T SOFIA ([facility]) Nystatin 100 UNT/MG Topical Powder 04/10/2019 12:00:00 AM EST SOFIA ([facility]) OneTouch Ultra Blue In Vitro Strip 04/10/2019 12:00:00 AM EST SOFIA ([facility]) Lancets Ultra Fine Miscellaneous 04/10/2019 12:00:00 AM EST SOFIA ([facility]) Furosemide 40 MG Oral Tablet [Lasix] 04/10/2019 12:00:00 AM EST ODESSA ([facility]) Sumatriptan 50 MG Oral Tablet [Imitrex] 04/10/2019 12:00:00 AM EST ODESSA ([facility]) Losartan Potassium 25 MG Oral Tablet 04/10/2019 12:00:00 AM EST ODESSA ([facility]) Metformin hydrochloride 1000 MG Oral Tablet 04/10/2019 12:00:00 AM EST ODESSA ([facility]) cetirizine hydrochloride 10 MG Oral Tablet 04/10/2019 12:00:[address] ODESSA ([facility]) Docusate Sodium 100 MG Oral Capsule [Dulcolax Stool So ftener] 04/10/2019 12:00:00 AM EST ODESSA ([facility]) Fluticasone Propionate 50 MCG/ACT Nasal Suspension 04/10/2019 12 :00:00 AM EST [facility]) Morphine Sulfate 15 MG Extended Release Oral Tablet 03/27/20 19 12:00:00 AM EST [facility] ([facility]) Oxycodone Hydrochloride 5 MG Oral Tablet 03/27/2019 12:00:00 AM EST [facility] ([facility]) Morphine Sulfate 15 MG Extended Release Oral Tablet 03/23/20 19 12:00:00 AM EST [facility] ([facility]) Oxycodone Hydrochloride 5 MG Oral Tablet 03/15/2019 12:00:00 AM EST [facility] ([facility]) Metformin hydrochloride 1000 MG Oral Tablet 02/06/2019 12:00:00 AM EDT ODESSA ([facility]) 200 ACTUAT Albuterol 0.09 MG/ACTUAT Metered Dose Inhal er [Ventolin] 02/06/2019 12:00:00 AM EDT ODESSA ([facility]) Losartan Potassium 25 MG Oral Tablet 02/06/2019 12:00:00 AM EDT ODESSA ([facility]) Nystatin 100 UNT/MG Topical Powder 02/06/2019 12:00:00 AM EDT ODESSA ([facility]) Sumatriptan 50 MG Oral Tablet [Imitrex] 02/06/2019 12:00:00 AM EDT SOFIA ([facility]) Spironolactone 25 MG Oral Tablet 02/06/2019 12:00:00 AM EDT SOFIA ([facility]) montelukast 10 MG Oral Tablet [Singulair] 02/06/2019 12:00:00 AM ED T ODESSA ([facility]) OneTouch Ultra Blue In Vitro Strip 02/06/2019 12:00:00 AM EDT SOFIA ([facility]) OneTouch Delica Lancets Fine Miscellaneous 02/06/2019 12:00:00 AM E DT ODESSA ([facility]) cetirizine hydrochloride 10 MG Oral Tablet 02/06/2019 12:00:00 AM E DT ODESSA ([facility]) Fluticasone Propionate 50 MCG/ACT Nasal Suspension 02/06/2019 12 :00:00 AM EDT SOFIA ([facility]) Furosemide 40 MG Oral Tablet [Lasix] 02/06/2019 12:00:00 AM EDT SOFIA ([facility]) Docusate Sodium 100 MG Oral Capsule [Dulcolax Stool So ftener] 02/06/2019 12:00:00 AM EDT SOFIA ([facility])
[2020-04-30 18:52] LABS: ALBUMIN 3.7 GM/DL (3.2-5.2); ALT/SGPT 33 U/L (12-78); AMYLASE 21 U/L (25-115); BILIRUBIN,DIRECT 0.1 MG/DL (0.0-0.2); BILIRUBIN,TOTAL 0.4 MG/DL (0.2-1.0); BLOOD UREA NITROGEN 11 MG/DL (7-18); CALCIUM LEVEL 10.3 MG/DL (8.5-10.1); CARBON DIOXIDE LEVEL 24 MEQ/L (21-32); CHLORIDE LEVEL 110 MEQ/L (98-107); CREATININE FOR GFR 0.74 MG/DL (0.55-1.30); GLOMERULAR FILTRATION RATE > 60.0 (>58); GLUCOSE, FASTING 120 MG/DL (70-100); LIPASE 78 U/L (73-393); SODIUM LEVEL 140 MEQ/L (136-145); TOTAL PROTEIN 7.7 GM/DL (6.4-8.2)
[2020-04-30] MEDS ORDERED: ZOFR4TAB16 PO (20:18)
[2020-04-30 20:25] VITALS: BP 136/83
== END 2020-04-30 20:54 | disposition home or self-care (01) ==
LOC: M ED 16:06
DX: K52.9 Noninfective gastroenteritis and colitis, unspecified (principal); I51.9 Heart disease, unspecified; E11.9 Type 2 diabetes mellitus without complications; I10 Essential (primary) hypertension; K21.9 Gastro-esophageal reflux disease without esophagitis; F17.200 Nicotine dependence, unspecified, uncomplicated; Z79.84 Long term (current) use of oral hypoglycemic drugs; Z79.899 Other long term (current) drug therapy; Z88.6 Allergy status to analgesic agent; Z88.2 Allergy status to sulfonamides
CPT/HCPCS: 74021; 80048; 80076; 81001; 82150; 83690; 85025; 87088; 87186; 87486; 87581; 87633; 87798; 96361; 96374; 96375; 99284; C9113; J2405

== ENCOUNTER → 2020-05-10 | Outpatient (CLI) | payer OTHER ==
[~2020-05-10] MED LIST changes: +MONT10TA10 PO; -MONT5TAB2 PO; +ZOFR4TAB16 PO
--- NOTE | 2020-05-13 23:38 | ECWPNPC ---
PATIENT NAME: STELLA TAVERAS : 1975 GENDER: FEMALE VISIT DATE: 05/10/2020 DISCHARGE DATE: 05/10/20 1010 VISIT LOCKED DATE TIME: PHYSICIAN: PATRICIA MCNAMARA RESOURCE: PATRICIA MCNAMARA REASON FOR APPOINTMENT 1. BACK HISTORY OF PRESENT ILLNESS GENERAL: HERE FOR FOLLOW-UP OF GENERALIZED BACK PAIN. HAD TO BE RESCHEDULED FOR NECK AND UPPER BACK TRIGGER POINT INJECTIONS WHICH SHE WILL HAVE DONE NEXT WEDNESDAY. COMPLAINING OF SEVERE INCREASE IN LOW BACK PAIN LEFT GREATER THAN RIGHT. HAS RESPONDED WELL TO BILATERAL SACROILIAC JOINT INJECTIONS IN THE PAST. SHE IS UNABLE TO TAKE NONSTEROIDAL ANTI-INFLAMMATORY DRUGS DUE TO GASTRIC BYPASS. WE ARE NOT USING NARCOTIC PAIN MEDICATIONS DUE TO COMPLIANCE ISSUES IN THE PAST. SHE IS ASKING FOR SOMETHING FOR PAIN SHE'S HAVING DIFFICULTY SLEEPING DUE TO BACK PAIN. DISCUSSED MEDICATION AND TREATMENT PLAN.-. FALL RISK SCREENING: SCREENING :TWO OR MORE FALLS WITHOUT INJURY IN THE PAST YEAR PAIN SCREENING: PATIENT HAS A COMPLAINT OF ACUTE OR CHRONIC PAIN :YES LOCATION OF PAIN:LOW BACK, LEG(S) INTENSITY OF PAIN (SCALE OF 1 TO 10):8 WHAT DOES YOUR PAIN FEEL LIKE:STABBING, THROBBING, SHOOTING DURATION:CONTINOUS, CONSTANT PAIN IS INCREASED BY:ACTIVITIES PAIN IS DECREASED BY:USE OF PAIN MEDICATIONS TREATMENT/MEDICATIONS USED TO MANAGE PAIN:OPIOIDS LAYING DOWN LEVEL OF RELIEF FROM PAIN TREATMENTS IN THE PAST:0% PAIN HAS INTERFERED WITH THE FOLLOWING:BATHING/DRESSING, WALKING ABILITY, HOUSEWORK, SLEEP, TRANSPORTATION, TOILETING NURSING NOTE: -. 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 :YES 2010 C SECTION DO YOU TAKE A BLOOD THINNERS? :NO DO YOU HAVE ANY BLEEDING DISORDERS? :NO ANY NEW NUMBNESS OR WEAKNESS IN YOUR LEGS OR ARMS? :YES LEFT LEG ANY PACEMAKER,DEFIBRILLATOR, OR DORSAL COLUMN STIMULATOR? :NO DO YOU HAVE ANY RASHES OR OPEN SORES? :NO ARE YOU ALLERGIC TO IV DYE? :NO ARE YOU DIABETIC? :YES ANY NEW PROBLEMS WITH YOUR MEDICATIONS? :NO HAVE YOU RECEIVED A VACCINE IN THE PAST 30 DAYS? :NO DO YOU PLAN TO RECEIVE A VACCINE IN THE NEXT 21 DAYS? :NO DO YOU NEED ANY PRESCRIPTION? :YES NOT SURE DO YOU TAKE ANY IMMUNOSUPPRESSIVE MEDICATIONS? :NO IS THERE A CHANCE YOU COULD BE ? :NO ARE YOU BREAST FEEDING? :NO CURRENT MEDICATIONS TAKING IRON 325 MGS 1 TAB ORAL DAILY TAKING CYMBALTA 90 MG CAPSULE DELAYED RELEASE PARTICLES 1 CAPSULE ORALLY 30MG CAP AND 60 MG CAP DAILY TAKING VITAMIN D 1000 UNIT CAPSULE CAPSULE ORALLY ONCE A DAY TAKING FLONASE 50 MCG/ACT SUSPENSION 1 SPRAY IN EACH NOSTRIL NASALLY ONCE A DAY NEEDED TAKING SUMATRIPTAN SUCCINATE 100 MG TABLET 1 TABLET NEEDED ORALLY DIRECTED TAKING COLACE 100 MG CAPSULE 1 CAPSULE NEEDED ORALLY 3X/DAY TAKING SPIRONOLACTONE 25 MG TABLET 1 TABLET ORALLY DAILY TAKING MISOPROSTOL 200 MCG TABLET 1 TABLET WITH MEALS AND AT BEDTIME ORALLY FOUR TIMES A DAY TAKING FAMOTIDINE 20 MG TABLET DISINTEGRATING DIRECTED ORALLY BID TAKING PRAMIPEXOLE DIHYDROCHLORIDE 0.25 MG TABLET 1 TABLET ORALLY BID TAKING SUCRALFATE 1 GM TABLET 1 TABLET ON AN EMPTY STOMACH ORALLY FOUR TIMES DAILY TAKING CETIRIZINE HCL 10 MG TABLET ORALLY ONCE A DAY TAKING LOSARTAN POTASSIUM 25 MG TABLET ORALLY DAILY TAKING MONTELUKAST SODIUM 10 MG TABLET 1 TABLET ORALLY ONCE A DAY TAKING DITROPAN XL 10 MG TABLET EXTENDED RELEASE 24 HOUR 1 TABLET ORALLY ONCE A DAY TAKING OMEPRAZOLE 40 MG CAPSULE DELAYED RELEASE 1 CAPSULE ORALLY 2 TIMES DAILY TAKING VITAMIN B12 500 TABLET 500 MCG-2 TABS ORALLY DAILY TAKING MULTIVITAMIN 1 TABLET CHEWABLE 2 TABS ORALLY DAILY TAKING CALCIUM CITRATE + 630 MG TABLET 2 TABLET WITH MEALS ORALLY TWICE A DAY TAKING LASIX 40 MG TABLET ORALLY DAILY TAKING METFORMIN HCL 1000 MG TABLET 1 TABLET WITH MEALS ORALLY TWICE A DAY TAKING ROBAXIN-750 750 MG TABLET 1 TABLET ORALLY Q8H PRN TAKING GABAPENTIN 800 MG TABLET 1 CAPSULE ORALLY FOR PAIN TID TAKING AMITRIPTYLINE HCL 75 MG TABLET 1 TABLET ORALLY ONCE A DAY TAKING LYRICA 200 MG CAPSULE 1 CAPSULE ORALLY Q8H TID MDD3 TAKING SPIRONOLACTONE 50 MG TABLET 1 TABLET ORALLY ONCE A DAY TAKING NYSTATIN [id number] UNIT/GM POWDER APPLY TO AFFECTED AREA S UNDER BREAST AND GROIN TWO TIMES A DAY EXTERNAL NOT-TAKING FERROUS SULFATE 325 (65 FE) MG TABLET 1 TABLET ORALLY ONCE A DAY, NOTES: SEE ABOVE NOT-TAKING KETOROLAC TROMETHAMINE 10 MG TABLET 1 TABLET WITH FOOD OR MILK NEEDED ORALLY EVERY 6 HRS NOT-TAKING KETOROLAC TROMETHAMINE 10 MG TABLET 1 TABLET WITH FOOD OR MILK NEEDED ORALLY EVERY 6 HRS NOT-TAKING BUPRENORPHINE HCL 300 MCG FILM 1 FILM TO THE GUM BUCALLY EVERY 12 HRS, NOTES: HAS NOT STARTED YET NOT-TAKING CLONIDINE HCL 0.1 MG TABLET 1 TABLET ORALLY Q8H PRN NOT-TAKING WELLBUTRIN 100 MG TABLET 1 TABLET ORALLY TWICE A DAY NOT-TAKING MORPHINE SULFATE ER 15 MG TABLET EXTENDED RELEASE 1 TABLET ORALLY EVERY 12 HRS MDD2 NOT-TAKING OXYCODONE HCL 5 MG TABLET 1 TABLET NEEDED ORALLY Q8H PRN MDD3 #50 TAB SHOULD LAST 30 DAYS NOT-TAKING ABILIFY 5 MG TABLET 1 TABLET ORALLY ONCE A DAY NOT-TAKING CYCLOBENZAPRINE HCL 10 MG TABLET DIRECTED ORALLY Q8H PRN PAIN #30 TAB SHOULD LAST 30 DAYS MEDICATION LIST REVIEWED AND RECONCILED WITH THE PATIENT PAST MEDICAL HISTORY DIABETES HYPERTENSION HYPERCHOLESTEREMIA OBESITY GERD (GASTROESOPHAGEAL REFLUX DISEASE) GASTRIC BYPASS ANXIETY BACK PAIN RIGHT HIP AND KNEE PAIN ALLERGIES SULFA (FOR ALLERGY USE ONLY): RASH - ALLERGY NSAIDS: GASTRIC BYPASS - CONTRAINDICATION SOCIAL HISTORY GENERAL: TOBACCO USE ARE YOU A:CURRENT SMOKER ARE YOU INTERESTED IN QUITTING?NOT READY TO QUIT COUNSELED THE PATIENT ON SMOKING EFFECTS, EDUCATION [id number]/2021 HOW MANY CIGARETTES A DAY DO YOU SMOKE?11-20 HOW SOON AFTER YOU WAKE UP DO YOU SMOKE YOUR FIRST CIGARETTE?WITHIN 5 MIN HOW OFTEN DO YOU SMOKE CIGARETTES?EVERY DAY PATIENT COUNSELED ON THE DANGERS OF TOBACCO USE AND URGED TO QUIT:03/05/2020 SMOKING CESSATION INFORMATION GIVEN03/05/2020 PAMPHLET GIVEN 08/16/18 LATEX QUESTIONNAIRE LATEX ALLERGY : HAVE YOU EVER DEVELOPED ANY TYPE OF REACTION AFTER HANDLING LATEX PRODUCTS SUCH RUBBER GLOVES, CONDOMS, DIAPHRAGMS, BALLOONS, SOCKS, OR UNDERWEAR?NO LATEX ALLERGY : HAVE YOU EVER DEVELOPED ANY TYPE OF REACTION DURING OR AFTER DENTAL APPOINTMENT, VAGINAL/RECTAL EXAMINATION, SURGICAL PROCEDURE, OR ANY OTHER EXPOSURE?NO DATE ASKED : 05/02/2020 LATEX RISK : HAVE YOU EVER HAD ANY DIFFICULTY BREATHING OR HIVES AFTER EATING OR HANDLING ANY FRUITS, OR VEGETABLES; SUCH KIWI, BANANAS, STONE FRUITS, OR CHESTNUTSNO LATEX RISK : DO YOU HAVE A PREVIOUS PERSONAL HISTORY OF MORE THAN NINE SURGERIES, SPINA BIFIDA, OR REPEATED CATHERIZATIONS? NO LATEX RISK : ARE YOU FREQUENTLY EXPOSED TO LATEX PRODUCTS IN YOUR OCCUPATION?NO ALCOHOL SCREENING DID YOU HAVE A DRINK CONTAINING ALCOHOL IN THE PAST YEAR?NO POINTS0 INTERPRETATIONNEGATIVE RECREATIONAL DRUG USE DRUG USE?NO CAFFEINE CAFFEINE USE?YES HOW OFTEN AND HOW MUCH? 2 BOTTLES [place] DEW/DAY RELIGIOUS [id number] NONE LANGUAGE LANGUAGES SPOKEN:LAO EDUCATION LEVEL OF EDUCATION:NOT FINISHED COLLEGE LEARNING BARRIERS / SPECIAL NEEDS CHANGE FROM LAST VISIT?NO BARRIERS TO LEARNING?NO HEARING IMPAIRED?NO VISION IMPAIRED?YES WEARS GLASSES COGNITIVELY IMPAIRED?NO :CORRECTIVE LENSES READINESS TO LEARN?YES LEARNING PREFERENCES?NO LEARNING CAPABILITIES PRESENT?YES EMOTIONAL BARRIERS?NO SPECIAL DEVICES?YES :WALKER ELECTRICIAN SOUND NEEDED?NO DOMESTIC VIOLENCE DO YOU FEEL SAFE IN YOUR ENVIRONMENT?YES OCCUPATION: DISABLED. DIET: REGULAR. EXERCISE: WALKS. MARITAL STATUS: SINGLE. OTHERS AT HOME: CHILD, OTHER NON-RELATIVE. - PFS REFERRAL NEEDED?NO CLERGY REFERRAL NEEDED?NO PUBLIC HEALTH REFERRAL NEEDED?NO WAS THE PROVIDER NOTIFIED OF ANY PERTINENT INFO? N/A HAS THE PATIENT BEEN EDUCATED REGARDING HIS/HER PLAN OF CARE?YES HAS THE PATIENT BEEN EDUCATED REGARDING PAIN, THE RISK FOR PAIN, THE IMPORTANCE OF EFFECTIVE PAIN MANAGEMENT, AND THE PAIN ASSESSMENT PROCESS?YES ADVANCE DIRECTIVE ADVANCE DIRECTIVE DISCUSSED WITH PATIENT:YES HCP - ARNULFO TAVERAS [phone] AND BROOKLYN JENSEN REVIEW OF SYSTEMS CONSTITUTIONAL: ANY RECENT FEVER NO . CHILLS NO . WEIGHT CHANGE OF UNKNOWN REASONS NO . GASTROENTEROLOGY: NEW UNEXPLAINABLE CHANGES IN BOWEL CONTROL NO . CONSTIPATION NO . GENITOURINARY: ANY NEW CHANGE IN BLADDER CONTROL? NO . NEUROLOGY: NEW ONSET DIZZINESS OR NEUROLOGICAL CHANGES NOT MENTIONED NO . NEW NUMBNESS OR PAIN PATTERNS NOT MENTIONED AND PERTINENT TO TODAY'S VISIT NO . CARDIOLOGY: NEW CHEST PRESSURE NO . NEW CHEST PAIN NO . RESPIRATORY: UNEXPLAINABLE COUGH NO . NEW SHORTNESS OF BREATH NO . VITAL SIGNS WT 297 LBS, HT 60.5 IN, BMI 57.04 INDEX, BP 108/68 MM HG, HR 96 /MIN, RR 18 /MIN, TEMP 96.3 F, OXYGEN SAT % 97, SAFE IN ENV? (Y/N) Y, REVIEWED BY: EM. EXAMINATION GENERAL EXAMINATION: GENERAL AWAKE,ALERT ,PLEASANT . PSYCH AFFECT NORMAL . LUNGS: LUNG ARORA ARE CLEAR TO AUSCULTATION BILATERALLY. GOOD MOVEMENT OF AIR . HEART: S1, S2 IN A REGULAR RATE AND RHYTHM. NO SIGNIFICANT MURMURS, RUBS OR GALLOPS NOTED . LUMBAR:PALPATION: + FOR PAIN OVER L/S SPINE. + FOR PAIN OVER L/S PARASPINALS SPECIFIC POINT TENDERNESS NOTED OVER BILATERAL SIJ. DIAGNOSTIC TESTS REVIEWEDMRI L/S SPINE. 2019 . ASSESSMENTS SACROILIITIS, NOT ELSEWHERE CLASSIFIED - M46.1 (PRIMARY), RISK: (NULL) TREATMENT SACROILIITIS, NOT ELSEWHERE CLASSIFIED START SOMA TABLET, 350 MG, 1 TABLET NEEDED, ORALLY, TWICE A DAY NEEDED FOR PAIN, 5 DAYS, 10, REFILLS 0 NOTES: BILATERAL SACROILIAC JOINT BLOCK. PROCEDURE CODES [id number] ESTABILISHED PATIENT [facility] [facility]AC[facility] CHARGE DISPOSITION & COMMUNICATION FOLLOW UP POST PROCEDURE (REASON: BILATERAL SACROILIAC JOINT BLOCK) ELECTRONICALLY SIGNED BY STEPHAN DRAKE ON 05/13/2020 AT 10:06 AM EST DISCLAIMER : THIS IS A VISIT SUMMARY EXTRACTED FROM THE [employer] CHART. IT IS NOT A COPY OF THE [employer] PROGRESS NOTE. [email or web address]
== END ==
LOC: M PAIN 09:30
PROVIDERS: ATTEND Nurse Practitioner Family
DX: M46.1 Sacroiliitis, not elsewhere classified (principal); E11.9 Type 2 diabetes mellitus without complications; K21.9 Gastro-esophageal reflux disease without esophagitis; F17.210 Nicotine dependence, cigarettes, uncomplicated; Z86.14 Personal history of Methicillin resistant Staphylococcus aureus infection; Z98.84 Bariatric surgery status; Z86.59 Personal history of other mental and behavioral disorders; Z88.2 Allergy status to sulfonamides; Z88.6 Allergy status to analgesic agent; E66.01 Morbid (severe) obesity due to excess calories; Z68.43 Body mass index [BMI] 50.0-59.9, adult; Z79.84 Long term (current) use of oral hypoglycemic drugs; Z79.899 Other long term (current) drug therapy

== ENCOUNTER → 2020-05-12 | Outpatient (CLI) | payer OTHER | LOC: M LABSMTC 11:18 | PROVIDERS: ATTEND Anesthesiology | DX: Z20.822 Contact with and (suspected) exposure to COVID-19 (principal) ==

== ENCOUNTER → 2020-05-17 | Outpatient (CLI) | payer OTHER ==
[~2020-05-17] MED LIST changes: -MONT10TA10 PO; +MONT5TAB2 PO
== END ==
LOC: M LABSMTC 11:35
PROVIDERS: ATTEND Anesthesiology
DX: Z01.812 Encounter for preprocedural laboratory examination (principal); Z20.822 Contact with and (suspected) exposure to COVID-19

== ENCOUNTER → 2020-05-17 | Outpatient (CLI) | payer OTHER ==
[~2020-05-17] MED LIST changes: +BUPIVACAINE HCL 0.25% 10ML VIAL As Ordered ONE; +BUPIVACAINE HCL 0.25% 30ML VIAL As Ordered ONE; +TRIAMCINOLONE ACETONIDE SUSP 40 MG/ML VIAL (J3301) As Ordered ONE; +diazePAM 5MG TABLET As Ordered ONE; +diphenhydrAMINE 25MG CAP As Ordered ONE; +oxyCODONE 5MG TAB As Ordered ONE
--- NOTE | 2020-05-21 02:48 | ECWPNPC ---
PATIENT NAME: STELLA TAVERAS : 1975 GENDER: FEMALE VISIT DATE: 05/17/2020 DISCHARGE DATE: 05/17/20 1437 VISIT LOCKED DATE TIME: PHYSICIAN: AMELIA LAI MD RESOURCE: AMELIA LAI MD REASON FOR APPOINTMENT 1. TRIGGER POINT INJECTIONS BILATERAL NECK AND BILATERAL SHOULDERS HISTORY OF PRESENT ILLNESS GENERAL: -. FALL RISK SCREENING: SCREENING :TWO OR MORE FALLS WITHOUT INJURY IN THE PAST YEAR PAIN SCREENING: PATIENT HAS A COMPLAINT OF ACUTE OR CHRONIC PAIN :YES LOCATION OF PAIN:LOW BACK, LEG(S) INTENSITY OF PAIN (SCALE OF 1 TO 10):9 WHAT DOES YOUR PAIN FEEL LIKE:ACHING, STABBING, THROBBING, SHOOTING DURATION:CONTINOUS, CONSTANT PAIN IS INCREASED BY:ACTIVITIES PAIN IS DECREASED BY:USE OF PAIN MEDICATIONS TREATMENT/MEDICATIONS USED TO MANAGE PAIN:OPIOIDS LAYING DOWN LEVEL OF RELIEF FROM PAIN TREATMENTS IN THE PAST:50% PAIN HAS INTERFERED WITH THE FOLLOWING:BATHING/DRESSING, WALKING ABILITY, HOUSEWORK, SLEEP, TRANSPORTATION, TOILETING PLAN/GOALS/TREATMENT/INTERVENTION/FOLLOW UP:SEE PLAN PAIN CENTER INTAKE QUESTIONS: DO YOU HAVE A HISTORY OF MRSA? :YES WOUND-C SECTION INCISION DO YOU TAKE A BLOOD THINNERS? :NO DO YOU HAVE ANY BLEEDING DISORDERS? :NO ANY NEW NUMBNESS OR WEAKNESS IN YOUR LEGS OR ARMS? :YES NEW TINGLING SENSATION IN BOTH FEET ANY PACEMAKER,DEFIBRILLATOR, OR DORSAL COLUMN STIMULATOR? :NO DO YOU HAVE ANY RASHES OR OPEN SORES? :NO ARE YOU ALLERGIC TO IV DYE? :NO ARE YOU DIABETIC? :YES FSBS 152 AT 1045 PER PT ANY NEW PROBLEMS WITH YOUR MEDICATIONS? :NO HAVE YOU RECEIVED A VACCINE IN THE PAST 30 DAYS? :NO DO YOU PLAN TO RECEIVE A VACCINE IN THE NEXT 21 DAYS? :NO DO YOU TAKE ANY IMMUNOSUPPRESSIVE MEDICATIONS? :NO ANY HISTORY OF SEIZURES? :NO ANY HISTORY OF CARDIAC ISSUES OR EVENTS? :NO DO YOU HAVE SLEEP APNEA? :NO ANY RECENT HEAD INJURY? :NO DO YOU HAVE ANY NEW INFECTIONS? :NO IS THERE A CHANCE YOU COULD BE ? :NO ARE YOU BREAST FEEDING? :NO WHEN DID YOU LAST EAT? : -05/16/20 2100 WHEN DID YOU LAST DRINK? : -05/17/20 1100 WHAT DID YOU LAST DRINK? : -WATER NAME OF PERSON DRIVING YOU HOME? : [place]OOK[place]N DO YOU HAVE ANY OTHER QUESTIONS OR CONCERNS? : -NO CURRENT MEDICATIONS TAKING IRON 325 MGS 1 TAB ORAL DAILY TAKING CYMBALTA 90 MG CAPSULE DELAYED RELEASE PARTICLES 1 CAPSULE ORALLY 30MG CAP AND 60 MG CAP DAILY TAKING VITAMIN D 1000 UNIT CAPSULE CAPSULE ORALLY ONCE A DAY TAKING FLONASE 50 MCG/ACT SUSPENSION 1 SPRAY IN EACH NOSTRIL NASALLY ONCE A DAY NEEDED TAKING SUMATRIPTAN SUCCINATE 100 MG TABLET 1 TABLET NEEDED ORALLY DIRECTED TAKING COLACE 100 MG CAPSULE 1 CAPSULE NEEDED ORALLY 3X/DAY TAKING SPIRONOLACTONE 25 MG TABLET 1 TABLET ORALLY DAILY, NOTES: 05/16/20899 TAKING MISOPROSTOL 200 MCG TABLET 1 TABLET WITH MEALS AND AT BEDTIME ORALLY FOUR TIMES A DAY TAKING FAMOTIDINE 20 MG TABLET DISINTEGRATING DIRECTED ORALLY BID TAKING PRAMIPEXOLE DIHYDROCHLORIDE 0.25 MG TABLET 1 TABLET ORALLY BID TAKING SUCRALFATE 1 GM TABLET 1 TABLET ON AN EMPTY STOMACH ORALLY FOUR TIMES DAILY TAKING CETIRIZINE HCL 10 MG TABLET ORALLY ONCE A DAY TAKING LOSARTAN POTASSIUM 25 MG TABLET ORALLY DAILY, NOTES: 05/16/20899 TAKING MONTELUKAST SODIUM 10 MG TABLET 1 TABLET ORALLY ONCE A DAY TAKING DITROPAN XL 10 MG TABLET EXTENDED RELEASE 24 HOUR 1 TABLET ORALLY ONCE A DAY TAKING OMEPRAZOLE 40 MG CAPSULE DELAYED RELEASE 1 CAPSULE ORALLY 2 TIMES DAILY TAKING VITAMIN B12 500 TABLET 500 MCG-2 TABS ORALLY DAILY TAKING MULTIVITAMIN 1 TABLET CHEWABLE 2 TABS ORALLY DAILY TAKING CALCIUM CITRATE + 630 MG TABLET 2 TABLET WITH MEALS ORALLY TWICE A DAY TAKING LASIX 40 MG TABLET ORALLY DAILY, NOTES: 05/16/20899 TAKING METFORMIN HCL 1000 MG TABLET 1 TABLET WITH MEALS ORALLY TWICE A DAY, NOTES: 05/16/202129 TAKING ROBAXIN-750 750 MG TABLET 1 TABLET ORALLY Q8H PRN TAKING GABAPENTIN 800 MG TABLET 1 CAPSULE ORALLY FOR PAIN TID TAKING AMITRIPTYLINE HCL 75 MG TABLET 1 TABLET ORALLY ONCE A DAY TAKING LYRICA 200 MG CAPSULE 1 CAPSULE ORALLY Q8H TID MDD3 TAKING NYSTATIN [id number] UNIT/GM POWDER APPLY TO AFFECTED AREA S UNDER BREAST AND GROIN TWO TIMES A DAY EXTERNAL NOT-TAKING SPIRONOLACTONE 50 MG TABLET 1 TABLET ORALLY ONCE A DAY NOT-TAKING SOMA 350 MG TABLET 1 TABLET NEEDED ORALLY TWICE A DAY NEEDED FOR PAIN, NOTES: 5 DAY SUPPLY ONLY NOT-TAKING FERROUS SULFATE 325 (65 FE) MG TABLET 1 TABLET ORALLY ONCE A DAY, NOTES: SEE ABOVE NOT-TAKING KETOROLAC TROMETHAMINE 10 MG TABLET 1 TABLET WITH FOOD OR MILK NEEDED ORALLY EVERY 6 HRS NOT-TAKING KETOROLAC TROMETHAMINE 10 MG TABLET 1 TABLET WITH FOOD OR MILK NEEDED ORALLY EVERY 6 HRS NOT-TAKING BUPRENORPHINE HCL 300 MCG FILM 1 FILM TO THE GUM BUCALLY EVERY 12 HRS, NOTES: HAS NOT STARTED YET NOT-TAKING CLONIDINE HCL 0.1 MG TABLET 1 TABLET ORALLY Q8H PRN NOT-TAKING WELLBUTRIN 100 MG TABLET 1 TABLET ORALLY TWICE A DAY NOT-TAKING MORPHINE SULFATE ER 15 MG TABLET EXTENDED RELEASE 1 TABLET ORALLY EVERY 12 HRS MDD2 NOT-TAKING OXYCODONE HCL 5 MG TABLET 1 TABLET NEEDED ORALLY Q8H PRN MDD3 #50 TAB SHOULD LAST 30 DAYS NOT-TAKING ABILIFY 5 MG TABLET 1 TABLET ORALLY ONCE A DAY NOT-TAKING CYCLOBENZAPRINE HCL 10 MG TABLET DIRECTED ORALLY Q8H PRN PAIN #30 TAB SHOULD LAST 30 DAYS MEDICATION LIST REVIEWED AND RECONCILED WITH THE PATIENT PAST MEDICAL HISTORY DIABETES HYPERTENSION HYPERCHOLESTEREMIA OBESITY GERD (GASTROESOPHAGEAL REFLUX DISEASE) GASTRIC BYPASS ANXIETY BACK PAIN RIGHT HIP AND KNEE PAIN ALLERGIES SULFA (FOR ALLERGY USE ONLY): RASH - ALLERGY NSAIDS: GASTRIC BYPASS - CONTRAINDICATION SOCIAL HISTORY GENERAL: TOBACCO USE ARE YOU A:CURRENT SMOKER HOW OFTEN DO YOU SMOKE CIGARETTES?EVERY DAY HOW SOON AFTER YOU WAKE UP DO YOU SMOKE YOUR FIRST CIGARETTE?WITHIN 5 MIN HOW MANY CIGARETTES A DAY DO YOU SMOKE?11-20 ARE YOU INTERESTED IN QUITTING?NOT READY TO QUIT PATIENT COUNSELED ON THE DANGERS OF TOBACCO USE AND URGED TO QUIT:03/05/2020 COUNSELED THE PATIENT ON SMOKING EFFECTS, EDUCATION [id number]/22/2021 SMOKING CESSATION INFORMATION GIVEN03/05/2020 PAMPHLET GIVEN 08/16/18 LATEX QUESTIONNAIRE LATEX ALLERGY : HAVE YOU EVER DEVELOPED ANY TYPE OF REACTION AFTER HANDLING LATEX PRODUCTS SUCH RUBBER GLOVES, CONDOMS, DIAPHRAGMS, BALLOONS, SOCKS, OR UNDERWEAR?NO LATEX ALLERGY : HAVE YOU EVER DEVELOPED ANY TYPE OF REACTION DURING OR AFTER DENTAL APPOINTMENT, VAGINAL/RECTAL EXAMINATION, SURGICAL PROCEDURE, OR ANY OTHER EXPOSURE?NO DATE ASKED : 05/02/2020 LATEX RISK : HAVE YOU EVER HAD ANY DIFFICULTY BREATHING OR HIVES AFTER EATING OR HANDLING ANY FRUITS, OR VEGETABLES; SUCH KIWI, BANANAS, STONE FRUITS, OR CHESTNUTSNO LATEX RISK : DO YOU HAVE A PREVIOUS PERSONAL HISTORY OF MORE THAN NINE SURGERIES, SPINA BIFIDA, OR REPEATED CATHERIZATIONS? NO LATEX RISK : ARE YOU FREQUENTLY EXPOSED TO LATEX PRODUCTS IN YOUR OCCUPATION?NO ALCOHOL SCREENING DID YOU HAVE A DRINK CONTAINING ALCOHOL IN THE PAST YEAR?NO POINTS0 INTERPRETATIONNEGATIVE RECREATIONAL DRUG USE DRUG USE?NO CAFFEINE CAFFEINE USE?YES HOW OFTEN AND HOW MUCH? 2 BOTTLES [place] DEW/DAY CHRISTIAN [id number] NONE LANGUAGE LANGUAGES SPOKEN:GUYANESE EDUCATION LEVEL OF EDUCATION:NOT FINISHED COLLEGE LEARNING BARRIERS / SPECIAL NEEDS CHANGE FROM LAST VISIT?NO BARRIERS TO LEARNING?NO HEARING IMPAIRED?YES RIGHT EAR HEARING AID VISION IMPAIRED?YES WEARS GLASSES :CORRECTIVE LENSES COGNITIVELY IMPAIRED?NO READINESS TO LEARN?YES LEARNING PREFERENCES?NO LEARNING CAPABILITIES PRESENT?YES EMOTIONAL BARRIERS?NO SPECIAL DEVICES?YES :WALKER AFLOAT CRYPTOLOGIC MANAGER NEEDED?NO DOMESTIC VIOLENCE DO YOU FEEL SAFE IN YOUR ENVIRONMENT?YES OCCUPATION: DISABLED. DIET: REGULAR. EXERCISE: WALKS. MARITAL STATUS: SINGLE. OTHERS AT HOME: CHILD, OTHER NON-RELATIVE. - PFS REFERRAL NEEDED?NO CLERGY REFERRAL NEEDED?NO PUBLIC HEALTH REFERRAL NEEDED?NO WAS THE PROVIDER NOTIFIED OF ANY PERTINENT INFO? N/A HAS THE PATIENT BEEN EDUCATED REGARDING HIS/HER PLAN OF CARE?YES HAS THE PATIENT BEEN EDUCATED REGARDING PAIN, THE RISK FOR PAIN, THE IMPORTANCE OF EFFECTIVE PAIN MANAGEMENT, AND THE PAIN ASSESSMENT PROCESS?YES ADVANCE DIRECTIVE ADVANCE DIRECTIVE DISCUSSED WITH PATIENT:YES HCP - ARNULFO TAVERAS [phone] AND BROOK[place]N JENSEN VITAL SIGNS WT 295.8 LBS, HT 60.5 IN, BMI 56.81 INDEX, BP 116/92 MM HG, HR 97 /MIN, RR 18 /MIN, TEMP 96.5 F, OXYGEN SAT % 97%, SAFE IN ENV? (Y/N) YES, [place] [address]REVIEWED. 05/17/20 1257 Crystal HIGGINS RN. EXAMINATION GENERAL EXAMINATION: THE PATIENT IS ALERT, ORIENTED TIMES THREE AND COOPERATIVE. LUNGS ARE CLEAR TO AUSCULTATION. HEART SHOWS REGULAR RHYTHM, NO MURMURS AND NO GALLOPS. ASSESSMENTS MYALGIA - M79.1 (PRIMARY) TREATMENT MYALGIA MEDICATION: VALIUM TAB 5MG ORALLY (DIAZEPAM)LYLY PRATT 05/17/2020 1:34:42 PM > VERIFIED. STEPHANIE HIGGINS RN 05/17/2020 1:42:23 PM > ADMINISTERED. MEDICATION: OXYCODONE HCL TAB 10MG ORALLYLYLY PRATT 05/17/2020 1:34:20 PM > VERIFIED. STEPHANIE HIGGINS RN 05/17/2020 1:42:40 PM > ADMINISTERED. COMPLETION OF PROCEDURAL VISIT WHEN MEETS CRITERIA MEDICATION: (PAIN) BENADRYL TAB 25MG ORALLY (DIPHENHYDRAMINE)LYLY PRATT 05/17/2020 1:34:01 PM > VERIFIED. STEPHANIE HIGGINS RN 05/17/2020 1:42:58 PM > ADMINISTERED. PROCEDURES PAIN NURSING RECORD PROCEDURE PHYSICIAN IN ROOM 1402, START 1408, FINISH 1411, PHYSICIAN OUT OF ROOM 1413, OUT OF ROOM 1435, ECG N/A, PATIENT SHIELDED YES, SAFETY STRAP N/A, PREP ALCOHOL DR. LAI, DRESSING TEGADERM Jose PRATT RN LOC: 1422, 1. ALERT, ORIENTED RESP: 1422, 1. REGULAR, NO DYSPNEA COLOR: 1422, 1. PINK SKIN: 1422, 1. WARM, DRY POSITION: 1422, 5. SITTING VITALS: 1422 80-16 119/77 97% NOTES Crystal HIGGINS RN COMPLETION OF PROCEDURE APPOINTMENT: POST PAIN 2, DRESSING SITE DRY AND INTACT, IV N/A, GAIT OTHER WALKER, TEACHING COMPLETED, PATIENT ACKNOWLEDGES UNDERSTANDING YES, PROCEDURE APPOINTMENT COMPLETED AT 1435 PN TRIGGER POINT INJECTION WITH STEROIDS PRE PROCEDURE DIAGNOSIS 1. MYALGIA 2. PAIN AT BILATERAL NECK AREA AND BILATERAL SHOULDER AREA POST PROCEDURE DIAGNOSIS 1. MYALGIA 2. PAIN AT BILATERAL NECK AREA AND BILATERAL SHOULDER AREA PROCEDURE TRIGGER POINT INJECTION AT BILATERAL NECK AREA AND BILATERAL SHOULDER AREA SURGEON DR. AMELIA LAI PRESS WORKER HELPER NONE ANESTHESIA LOCAL PRE PROCEDURE NOTE THE PATIENT HAS A HISTORY OF CHRONIC PAIN AT THE RIGHT AND LEFT NECK AREA AND RIGHT AND LEFT SHOULDER AREA. I EVALUATED THE PATIENT AND REVIEWED THE CHART. THERE IS EVIDENCE OF BANDS OF TISSUE WITH RESTRICTION OF MOVEMENT AND PRESENCE OF TRIGGER POINT AT THE RIGHT AND LEFT NECK AREA AND RIGHT AND LEFT SHOULDER AREA. I WENT OVER THE RISKS, ALTERNATIVES, AND BENEFITS ASSOCIATED WITH THIS PROCEDURE. THE PATIENT WOULD LIKE TO PROCEED AND GIVE CONSENT TO PERFORMED THE PROCEDURE. THE PATIENT DENIES UNEXPLAINABLE WEIGHT LOSS, FEVER, CHILLS, OR NEW CHANGES IN URINARY OR BOWEL CONTROL. THE PATIENT IS COVID-19 NEGATIVE DESCRIPTION OF PROCEDURE THE PATIENT WAS BROUGHT TO THE PROCEDURE ROOM AND PLACED IN THE SITTING POSITION. THE AREA WAS CLEANED WITH ALCOHOL. THE PROCEDURE WAS DONE USING ASEPTIC STERILE TECHNIQUE. A TIMEOUT WAS PERFORMED WHERE THE CONSENTED SITE WAS VERIFIED WITH EVERYONE IN THE ROOM. USING A 25-GAUGE NEEDLE, TRIGGER POINTS WERE INJECTED AT THE RIGHT AND LEFT NECK AREA AND RIGHT AND LEFT SHOULDER AREA WITH A TOTAL OF 40 ML OF BUPIVACAINE 0.25% AND KENALOG 40 MG. THE MEDICATIONS WERE VERIFIED WITH THE NURSE. THERE WAS NO EVIDENCE OF BLOOD OR PARESTHESIA DURING THE PROCEDURE. THE PATIENT WAS SENT TO THE RECOVERY ROOM. THE PATIENT WAS MOVING THE EXTREMITIES AND DOING WELL. THERE WERE NO COMPLICATIONS DURING THE PROCEDURE. ESTIMATED BLOOD LOSS WAS LESS THAN 5 ML POST PROCEDURE NOTE THE PROCEDURE DONE WAS DISCUSSED WITH THE PATIENT. THE PATIENT WILL BE SEEN IN A FOLLOW UP IN THE NEXT FEW WEEKS. I AM LOOKING FOR LONG LASTING PAIN RELIEF FOR THE PATIENT WITH THIS INTERVENTION. INSTRUCTIONS WERE GIVEN, QUESTIONS WERE ANSWERED, AND THE PATIENT EXPRESSED UNDERSTANDING AND AGREES WITH THE PLAN. I, FANY ESPINAL, DOCUMENTED THE ABOVE INFORMATION ACTING A SCRIBE FOR DR. LAI. I HAVE REVIEWED THE ABOVE DOCUMENT, WRITTEN BY FANY ESPINAL, PALLIATIVE CARE SPECIALIST, AND I VERIFY THAT IT IS ACCURATE PROCEDURE CODES 65820 INJECT TRIGGER POINTS 3/> DISPOSITION & COMMUNICATION FOLLOW UP FOLLOW UP WITH STAMPING MILL TENDER (REASON: POST TRIGGER POINT INJECTIONS BILATERAL NECK AND BILATERAL SHOULDERS ) ELECTRONICALLY SIGNED BY AMELIA LAI MD, MD ON 05/20/2020 AT 03:03 PM EST DISCLAIMER : THIS IS A VISIT SUMMARY EXTRACTED FROM THE [employer] CHART. IT IS NOT A COPY OF THE [employer] PROGRESS NOTE. [employer]
== END ==
LOC: M PAIN 13:00
PROVIDERS: ATTEND Anesthesiology
DX: M79.18 Myalgia, other site (principal); E11.9 Type 2 diabetes mellitus without complications; I10 Essential (primary) hypertension; E78.00 Pure hypercholesterolemia, unspecified; E66.9 Obesity, unspecified; Z68.43 Body mass index [BMI] 50.0-59.9, adult; K21.9 Gastro-esophageal reflux disease without esophagitis; F41.9 Anxiety disorder, unspecified; M25.551 Pain in right hip; M25.561 Pain in right knee; F17.210 Nicotine dependence, cigarettes, uncomplicated; Z79.84 Long term (current) use of oral hypoglycemic drugs; Z79.899 Other long term (current) drug therapy; Z88.2 Allergy status to sulfonamides; Z88.6 Allergy status to analgesic agent
CPT/HCPCS: 20553; J3301

== ENCOUNTER 2020-05-22 12:04 | Day surgery (SDC) | payer OTHER ==
[~2020-05-22] VITALS: Ht 154.9 cm; Wt 134.3 kg
[~2020-05-22 12:04] MED LIST changes: -BUPIVACAINE HCL 0.25% 10ML VIAL As Ordered ONE; -BUPIVACAINE HCL 0.25% 30ML VIAL As Ordered ONE; +NS 1,000 ML IV ONE; -TRIAMCINOLONE ACETONIDE SUSP 40 MG/ML VIAL (J3301) As Ordered ONE; -diazePAM 5MG TABLET As Ordered ONE; -diphenhydrAMINE 25MG CAP As Ordered ONE; -oxyCODONE 5MG TAB As Ordered ONE
[2020-05-22] MEDS ORDERED: propofoL 200 MG/20 ML VIAL As Ordered ONE (13:39)
[2020-05-22] MEDS ORDERED: LIDOCAINE 2% 100MG/5ML SDV (FOR ANES.) As Ordered ONE (13:39)
[2020-05-22] MEDS ORDERED: fentaNYL 100 MCG/2 ML INJECTION (J3010) As Ordered ONE (13:40)
--- NOTE | 2020-05-22 14:20 | ROOR ---
Patient Name: Mara Mccray Procedure Date: 05/22/2020 2:01 PM Date of : 1975 Age: 45 Room: [facility] Gender: Female Note Status: Finalized Procedure: Upper Endoscopy + Biopsies Indications: Heartburn, Exclusion of Orr's esophagus Providers: Maninder Howell MD Referring MD: Marlene PEDROZA DO Requestpascual Provider: Medicines: Monitored Anesthesia Care Complications: No immediate complications. Procedure: Pre-Anesthesia Assessment: - The heart rate, respiratory rate, oxygen saturations, blood pressure, adequacy of pulmonary ventilation, and response to care were monitored throughout the procedure. The Endoscope was introduced through the mouth, and advanced to the second part of duodenum. The upper GI endoscopy was accomplished without difficulty. The patient tolerated the procedure well. Findings: The Z-line was regular and was found 35 cm from the incisors. Multiple biopsies were obtained with cold forceps for evaluation to rule out Orr's Esophagus randomly at the gastroesophageal junction. Evidence of a gastric bypass was found. A gastric pouch with a medium size was found. The gastrojejunal anastomosis was characterized by healthy appearing mucosa. The exam was otherwise without abnormality. Impression: - Z-line regular, 35 cm from the incisors. - Gastric bypass with a medium-sized pouch. Gastrojejunal anastomosis characterized by healthy appearing mucosa. - The examination was otherwise normal. - Multiple biopsies were obtained at the gastroesophageal junction. - The examination was otherwise normal. Recommendation: - Patient has a contact number available for emergencies. The signs and symptoms of potential delayed complications were discussed with the patient. Return to normal activities tomorrow. Written discharge instructions were provided to the patient. - Resume previous diet. - Discharge patient to home. - Follow an antireflux regimen. - Continue present medications. - Await pathology results. - Telephone GI clinic for pathology results in 1 week. - Return to referring physician. - The findings and recommendations were discussed with the patient. Procedure Code(s): --- Professional --- 91576, Esophagogastroduodenoscopy, flexible, transoral; with biopsy, single or multiple Diagnosis Code(s): --- Professional --- Z98.84, Bariatric surgery status R12, Heartburn CPT copyright 2019 [employer]. All rights reserved. The codes documented in this report are preliminary and upon pricer review may be revised to meet current compliance requirements. Maninder Howell MD Maninder Howell MD 05/22/2020 2:19:46 PM Electronically signed by Maninder Howell MD Number of Addenda: 0 Note Initiated On: 05/22/2020 2:01 PM Estimated Blood Loss: Estimated blood loss: none.
[2020-05-22 14:42] VITALS: BP 135/81
== END 2020-05-22 14:53 | disposition home or self-care (01) ==
LOC: M OPP 12:04
PROVIDERS: ATTEND Internal Medicine Gastroenterology
DX: R12 Heartburn (principal); D13.0 Benign neoplasm of esophagus; Z98.84 Bariatric surgery status; I10 Essential (primary) hypertension; E78.5 Hyperlipidemia, unspecified; R60.0 Localized edema; E11.9 Type 2 diabetes mellitus without complications; Z86.14 Personal history of Methicillin resistant Staphylococcus aureus infection; F41.9 Anxiety disorder, unspecified; F32.9 Major depressive disorder, single episode, unspecified; G43.909 Migraine, unspecified, not intractable, without status migrainosus; J44.9 Chronic obstructive pulmonary disease, unspecified; G47.30 Sleep apnea, unspecified; F17.210 Nicotine dependence, cigarettes, uncomplicated; Z88.2 Allergy status to sulfonamides; Z88.6 Allergy status to analgesic agent; Z79.84 Long term (current) use of oral hypoglycemic drugs; Z79.899 Other long term (current) drug therapy
CPT/HCPCS: 43239; 88305; J3010

== ENCOUNTER → 2020-05-29 | Outpatient (CLI) | payer OTHER ==
[~2020-05-29] MED LIST changes: +MONT10TA10 PO; -MONT5TAB2 PO; -NS 1,000 ML IV ONE
== END ==
LOC: M LABSMTC 10:07
PROVIDERS: ATTEND Anesthesiology
DX: Z20.828 Contact with and (suspected) exposure to other viral communicable diseases (principal)

== ENCOUNTER → 2020-05-30 | Outpatient (CLI) | payer OTHER ==
--- NOTE | 2020-06-02 23:14 | ECWPNPC ---
PATIENT NAME: STELLA TAVERAS : 1975 GENDER: FEMALE VISIT DATE: 05/30/2020 DISCHARGE DATE: 05/30/20 1035 VISIT LOCKED DATE TIME: PHYSICIAN: PATRICIA MCNAMARA RESOURCE: PATRICIA MCNAMARA REASON FOR APPOINTMENT 1. NBP HIP HISTORY OF PRESENT ILLNESS GENERAL: HERE FOR US TO EVALUATE CHRONIC LEFT HIP PAIN PER REFERRAL OF [facility].LONG HISTORY OF BILATERAL HIP PAIN.DENIES PRECIPITATING EVENT.HAD STEROID INJECTION INTO LEFT HIP FOR SIGNIFICANT INCREASE IN PAIN OVER THE PAST FEW MONTHS.PATIENT REPORTS THAT IT WASNT HELPFUL.PAIN IS AGGREVATED BY WALKING AND RELIEVED SOMEWHAT AT REST.SHE IS VERY UNCOMFORTABLE TODAY.WALKS WITH ASSIST OF WALKER WITH LIMP OVER LEFT LEG.REVIEWED MRI LEFT HIP AND DISCUSSED TREATMENT OPTIONS. -. FALL RISK SCREENING: SCREENING :TWO OR MORE FALLS WITHOUT INJURY IN THE PAST YEAR PAIN SCREENING: PATIENT HAS A COMPLAINT OF ACUTE OR CHRONIC PAIN :YES LOCATION OF PAIN:NECK, BOTH SHOULDERS, LEFT HIP SHOULDER PAIN AND NECK INTENSITY OF PAIN (SCALE OF 1 TO 10):100 WHAT DOES YOUR PAIN FEEL LIKE:SHARP, STABBING, SHOOTING DURATION:CONTINOUS, CONSTANT, ALL DAY PAIN IS INCREASED BY:ACTIVITIES PAIN IS DECREASED BY:OTHERS SITTING STILL AND LAYING DOWN NURSING NOTE: -. 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 :YES 2010 C SECTION DO YOU TAKE A BLOOD THINNERS? :NO DO YOU HAVE ANY BLEEDING DISORDERS? :NO ANY NEW NUMBNESS OR WEAKNESS IN YOUR LEGS OR ARMS? :YES LEFT LEG ANY PACEMAKER,DEFIBRILLATOR, OR DORSAL COLUMN STIMULATOR? :NO DO YOU HAVE ANY RASHES OR OPEN SORES? :NO ARE YOU ALLERGIC TO IV DYE? :NO ARE YOU DIABETIC? :YES ANY NEW PROBLEMS WITH YOUR MEDICATIONS? :NO HAVE YOU RECEIVED A VACCINE IN THE PAST 30 DAYS? :NO DO YOU PLAN TO RECEIVE A VACCINE IN THE NEXT 21 DAYS? :NO DO YOU NEED ANY PRESCRIPTION? :YES GABAPENTIN DO YOU TAKE ANY IMMUNOSUPPRESSIVE MEDICATIONS? :NO IS THERE A CHANCE YOU COULD BE ? :NO ARE YOU BREAST FEEDING? :NO CURRENT MEDICATIONS TAKING IRON 325 MGS 1 TAB ORAL DAILY TAKING CYMBALTA 90 MG CAPSULE DELAYED RELEASE PARTICLES 1 CAPSULE ORALLY 30MG CAP AND 60 MG CAP DAILY TAKING VITAMIN D 1000 UNIT CAPSULE CAPSULE ORALLY ONCE A DAY TAKING FLONASE 50 MCG/ACT SUSPENSION 1 SPRAY IN EACH NOSTRIL NASALLY ONCE A DAY NEEDED TAKING SUMATRIPTAN SUCCINATE 100 MG TABLET 1 TABLET NEEDED ORALLY DIRECTED TAKING COLACE 100 MG CAPSULE 1 CAPSULE NEEDED ORALLY 3X/DAY TAKING SPIRONOLACTONE 25 MG TABLET 1 TABLET ORALLY DAILY, NOTES: 05/16/20899 TAKING MISOPROSTOL 200 MCG TABLET 1 TABLET WITH MEALS AND AT BEDTIME ORALLY FOUR TIMES A DAY TAKING FAMOTIDINE 20 MG TABLET DISINTEGRATING DIRECTED ORALLY BID TAKING PRAMIPEXOLE DIHYDROCHLORIDE 0.25 MG TABLET 1 TABLET ORALLY BID TAKING SUCRALFATE 1 GM TABLET 1 TABLET ON AN EMPTY STOMACH ORALLY FOUR TIMES DAILY TAKING CETIRIZINE HCL 10 MG TABLET ORALLY ONCE A DAY TAKING LOSARTAN POTASSIUM 25 MG TABLET ORALLY DAILY, NOTES: 05/16/20899 TAKING MONTELUKAST SODIUM 10 MG TABLET 1 TABLET ORALLY ONCE A DAY TAKING DITROPAN XL 10 MG TABLET EXTENDED RELEASE 24 HOUR 1 TABLET ORALLY ONCE A DAY TAKING OMEPRAZOLE 40 MG CAPSULE DELAYED RELEASE 1 CAPSULE ORALLY 2 TIMES DAILY TAKING VITAMIN B12 500 TABLET 500 MCG-2 TABS ORALLY DAILY TAKING MULTIVITAMIN 1 TABLET CHEWABLE 2 TABS ORALLY DAILY TAKING CALCIUM CITRATE + 630 MG TABLET 2 TABLET WITH MEALS ORALLY TWICE A DAY TAKING LASIX 40 MG TABLET ORALLY DAILY, NOTES: 05/16/20899 TAKING METFORMIN HCL 1000 MG TABLET 1 TABLET WITH MEALS ORALLY TWICE A DAY, NOTES: 05/16/202129 TAKING ROBAXIN-750 750 MG TABLET 1 TABLET ORALLY Q8H PRN TAKING GABAPENTIN 800 MG TABLET 1 CAPSULE ORALLY FOR PAIN TID TAKING AMITRIPTYLINE HCL 75 MG TABLET 1 TABLET ORALLY ONCE A DAY TAKING NYSTATIN 280232 UNIT/GM POWDER APPLY TO AFFECTED AREA S UNDER BREAST AND GROIN TWO TIMES A DAY EXTERNAL TAKING LYRICA 200 MG CAPSULE 1 CAPSULE ORALLY Q8H TID MDD3 NOT-TAKING SPIRONOLACTONE 50 MG TABLET 1 TABLET ORALLY ONCE A DAY NOT-TAKING SOMA 350 MG TABLET 1 TABLET NEEDED ORALLY TWICE A DAY NEEDED FOR PAIN, NOTES: 5 DAY SUPPLY ONLY NOT-TAKING FERROUS SULFATE 325 (65 FE) MG TABLET 1 TABLET ORALLY ONCE A DAY, NOTES: SEE ABOVE NOT-TAKING KETOROLAC TROMETHAMINE 10 MG TABLET 1 TABLET WITH FOOD OR MILK NEEDED ORALLY EVERY 6 HRS NOT-TAKING KETOROLAC TROMETHAMINE 10 MG TABLET 1 TABLET WITH FOOD OR MILK NEEDED ORALLY EVERY 6 HRS NOT-TAKING BUPRENORPHINE HCL 300 MCG FILM 1 FILM TO THE GUM BUCALLY EVERY 12 HRS, NOTES: HAS NOT STARTED YET NOT-TAKING CLONIDINE HCL 0.1 MG TABLET 1 TABLET ORALLY Q8H PRN NOT-TAKING WELLBUTRIN 100 MG TABLET 1 TABLET ORALLY TWICE A DAY NOT-TAKING MORPHINE SULFATE ER 15 MG TABLET EXTENDED RELEASE 1 TABLET ORALLY EVERY 12 HRS MDD2 NOT-TAKING OXYCODONE HCL 5 MG TABLET 1 TABLET NEEDED ORALLY Q8H PRN MDD3 #50 TAB SHOULD LAST 30 DAYS NOT-TAKING ABILIFY 5 MG TABLET 1 TABLET ORALLY ONCE A DAY NOT-TAKING CYCLOBENZAPRINE HCL 10 MG TABLET DIRECTED ORALLY Q8H PRN PAIN #30 TAB SHOULD LAST 30 DAYS MEDICATION LIST REVIEWED AND RECONCILED WITH THE PATIENT PAST MEDICAL HISTORY DIABETES HYPERTENSION HYPERCHOLESTEREMIA OBESITY GERD (GASTROESOPHAGEAL REFLUX DISEASE) GASTRIC BYPASS ANXIETY BACK PAIN RIGHT HIP AND KNEE PAIN ALLERGIES SULFA (FOR ALLERGY USE ONLY): RASH - ALLERGY NSAIDS: GASTRIC BYPASS - CONTRAINDICATION SOCIAL HISTORY GENERAL: TOBACCO USE ARE YOU A:CURRENT SMOKER ARE YOU INTERESTED IN QUITTING?NOT READY TO QUIT COUNSELED THE PATIENT ON SMOKING EFFECTS, EDUCATION TIQFMUHV23/11/2021 HOW MANY CIGARETTES A DAY DO YOU SMOKE?11-20 HOW SOON AFTER YOU WAKE UP DO YOU SMOKE YOUR FIRST CIGARETTE?WITHIN 5 MIN HOW OFTEN DO YOU SMOKE CIGARETTES?EVERY DAY PATIENT COUNSELED ON THE DANGERS OF TOBACCO USE AND URGED TO QUIT:03/05/2020 SMOKING CESSATION INFORMATION GIVEN03/05/2020 PAMPHLET GIVEN 08/16/18 LATEX QUESTIONNAIRE LATEX ALLERGY : HAVE YOU EVER DEVELOPED ANY TYPE OF REACTION AFTER HANDLING LATEX PRODUCTS SUCH RUBBER GLOVES, CONDOMS, DIAPHRAGMS, BALLOONS, SOCKS, OR UNDERWEAR?NO LATEX ALLERGY : HAVE YOU EVER DEVELOPED ANY TYPE OF REACTION DURING OR AFTER DENTAL APPOINTMENT, VAGINAL/RECTAL EXAMINATION, SURGICAL PROCEDURE, OR ANY OTHER EXPOSURE?NO LATEX RISK : HAVE YOU EVER HAD ANY DIFFICULTY BREATHING OR HIVES AFTER EATING OR HANDLING ANY FRUITS, OR VEGETABLES; SUCH KIWI, BANANAS, STONE FRUITS, OR CHESTNUTSNO LATEX RISK : DO YOU HAVE A PREVIOUS PERSONAL HISTORY OF MORE THAN NINE SURGERIES, SPINA BIFIDA, OR REPEATED CATHERIZATIONS? NO LATEX RISK : ARE YOU FREQUENTLY EXPOSED TO LATEX PRODUCTS IN YOUR OCCUPATION?NO DATE ASKED : 05/30/2020 ALCOHOL USE: NO. ALCOHOL SCREENING DID YOU HAVE A DRINK CONTAINING ALCOHOL IN THE PAST YEAR?NO POINTS0 INTERPRETATIONNEGATIVE RECREATIONAL DRUG USE DRUG USE?NO CAFFEINE CAFFEINE USE?YES HOW OFTEN AND HOW MUCH? 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 DIET: REGULAR. EXERCISE: WALKS. MARITAL STATUS: SINGLE. OTHERS AT HOME: CHILD, OTHER NON-RELATIVE. - PFS REFERRAL NEEDED?NO CLERGY REFERRAL NEEDED?NO PUBLIC HEALTH REFERRAL NEEDED?NO WAS THE PROVIDER NOTIFIED OF ANY PERTINENT INFO? N/A HAS THE PATIENT BEEN EDUCATED REGARDING HIS/HER PLAN OF CARE?YES HAS THE PATIENT BEEN EDUCATED REGARDING PAIN, THE RISK FOR PAIN, THE IMPORTANCE OF EFFECTIVE PAIN MANAGEMENT, AND THE PAIN ASSESSMENT PROCESS?YES ADVANCE DIRECTIVE ADVANCE DIRECTIVE DISCUSSED WITH PATIENT:YES HCP - ARNULFO TAVERAS [phone] AND BROOK[place] JENSEN REVIEW OF SYSTEMS CONSTITUTIONAL: ANY RECENT FEVER NO . CHILLS NO . WEIGHT CHANGE OF UNKNOWN REASONS NO . GASTROENTEROLOGY: NEW UNEXPLAINABLE CHANGES IN BOWEL CONTROL NO . CONSTIPATION NO . GENITOURINARY: ANY NEW CHANGE IN BLADDER CONTROL? NO . NEUROLOGY: NEW ONSET DIZZINESS OR NEUROLOGICAL CHANGES NOT MENTIONED NO . NEW NUMBNESS OR PAIN PATTERNS NOT MENTIONED AND PERTINENT TO TODAY'S VISIT NO . CARDIOLOGY: NEW CHEST PRESSURE NO . NEW CHEST PAIN NO . RESPIRATORY: UNEXPLAINABLE COUGH NO . NEW SHORTNESS OF BREATH NO . VITAL SIGNS WT 300 LBS, HT 60.5 IN, BMI 57.62 INDEX, BP 121/67 MM HG, HR 74 /MIN, RR 18 /MIN, TEMP 96.5 F, OXYGEN SAT % 98%, SAFE IN ENV? (Y/N) YEST.CARINA ZULUAGA. EXAMINATION GENERAL EXAMINATION: GENERAL MORBID OBESITY,APPEARS VERY UNCOMFORTABLE. PSYCHAPPROPRIATE MOOD AND AFFECT . NECK:NO LYMPHADENOPATHY, SUPPLE. LUNGS:CLEAR TO AUSCULTATION BILATERALLY, NO WHEEZES, RHONCHI, RALES. HEART:NO MURMURS, REGULAR RATE AND RHYTHM. MUSCULOSKELETAL: MARKED TENDERNESS NOTED OVER LEFT HIP. DIAGNOSTIC TESTS REVIEWED MRI LEFT HIP. 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 PROCEDURE CODES FA211 ESTABILISHED PATIENT [facility] CHARGE DISPOSITION & COMMUNICATION FOLLOW UP POST PROC. (REASON: LEFT TROCHANTERIC BURSAL STEROID BLOCK) ELECTRONICALLY SIGNED BY STEPHAN DRAKE ON 06/02/2020 AT 06:30 PM EST DISCLAIMER : THIS IS A VISIT SUMMARY EXTRACTED FROM THE [employer] CHART. IT IS NOT A COPY OF THE [employer] PROGRESS NOTE. JUSTUS
== END ==
LOC: M PAIN 09:15
PROVIDERS: ATTEND Nurse Practitioner Family
DX: M70.62 Trochanteric bursitis, left hip (principal); G89.29 Other chronic pain; E11.9 Type 2 diabetes mellitus without complications; K21.9 Gastro-esophageal reflux disease without esophagitis; F17.210 Nicotine dependence, cigarettes, uncomplicated; Z86.14 Personal history of Methicillin resistant Staphylococcus aureus infection; Z98.84 Bariatric surgery status; Z86.59 Personal history of other mental and behavioral disorders; Z88.2 Allergy status to sulfonamides; Z88.6 Allergy status to analgesic agent; E66.01 Morbid (severe) obesity due to excess calories; Z68.43 Body mass index [BMI] 50.0-59.9, adult; Z79.84 Long term (current) use of oral hypoglycemic drugs; Z79.899 Other long term (current) drug therapy

== ENCOUNTER → 2020-06-03 | Outpatient (CLI) | payer OTHER ==
[~2020-06-03] MED LIST changes: +BUPIVACAINE HCL 0.25% 30ML VIAL As Ordered ONE; +ISOVUE-M 300 61% 15ML VIAL As Ordered ONE; +LIDOCAINE 1% SDV 30ML VIAL As Ordered ONE; +TRIAMCINOLONE ACETONIDE SUSP 40 MG/ML VIAL (J3301) As Ordered ONE; +diazePAM 5MG TABLET As Ordered ONE; +diphenhydrAMINE 25MG CAP As Ordered ONE; +oxyCODONE 5MG TAB As Ordered ONE
--- NOTE | 2020-06-03 12:14 | REP ---
INDICATION: PAIN. COMPARISON: None. TECHNIQUE: Three views lateral projection left hip. 27 seconds of fluoroscopy time is reported. FINDINGS: A sequence of 3 last image hold fluoroscopically obtained spot radiographs document needle position associated with injection procedure. IMPRESSION: Procedural imaging. <Electronically signed by Caden Bui > 06/03/20 [id number]
--- NOTE | 2020-06-12 04:13 | ECWPNPC ---
PATIENT NAME: STELLA TAVERAS : 1975 GENDER: FEMALE VISIT DATE: 06/03/2020 DISCHARGE DATE: 06/03/20 1238 VISIT LOCKED DATE TIME: PHYSICIAN: AMELIA LAI MD RESOURCE: AMELIA LAI MD REASON FOR APPOINTMENT 1. LEFT GREATER TROCHANTER OF THE FEMUR BURSAL INJECTION HISTORY OF PRESENT ILLNESS GENERAL: -. FALL RISK SCREENING: SCREENING :ONE FALL WITH INJURY IN THE PAST YEAR ONE FALL WITHOUT INJURY PAIN SCREENING: PATIENT HAS A COMPLAINT OF ACUTE OR CHRONIC PAIN :YES LOCATION OF PAIN:LEFT HIP INTENSITY OF PAIN (SCALE OF 1 TO 10):10 WHAT DOES YOUR PAIN FEEL LIKE:CONTINOUS, SHARP, STABBING, TENDER, THROBBING, SORE, SHOOTING DURATION:CONTINOUS, CONSTANT PAIN IS INCREASED BY:ACTIVITIES, PROLONGED STANDING PAIN IS DECREASED BY:USE OF PAIN MEDICATIONS, OTHERS RESTING NURSING NOTE: -. 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 :YES 2010 C SECTION INCISION DO YOU TAKE A BLOOD THINNERS? :NO DO YOU HAVE ANY BLEEDING DISORDERS? :NO ANY NEW NUMBNESS OR WEAKNESS IN YOUR LEGS OR ARMS? :NO ANY PACEMAKER,DEFIBRILLATOR, OR DORSAL COLUMN STIMULATOR? :NO DO YOU HAVE ANY RASHES OR OPEN SORES? :NO ARE YOU ALLERGIC TO IV DYE? :NO ARE YOU DIABETIC? :YES ANY NEW PROBLEMS WITH YOUR MEDICATIONS? :NO HAVE YOU RECEIVED A VACCINE IN THE PAST 30 DAYS? :NO DO YOU PLAN TO RECEIVE A VACCINE IN THE NEXT 21 DAYS? :NO DO YOU TAKE ANY IMMUNOSUPPRESSIVE MEDICATIONS? :NO ANY HISTORY OF SEIZURES? :NO ANY HISTORY OF CARDIAC ISSUES OR EVENTS? :NO DO YOU HAVE SLEEP APNEA? :YES DO YOU WEAR A CPAP?YES ANY RECENT HEAD INJURY? :NO DO YOU HAVE ANY NEW INFECTIONS? :NO IS THERE A CHANCE YOU COULD BE ? :NO ARE YOU BREAST FEEDING? :NO WHEN DID YOU LAST EAT? : 06/02/201999 WHEN DID YOU LAST DRINK? : 06/03/20899 WHAT DID YOU LAST DRINK? : WATER NAME OF PERSON DRIVING YOU HOME? : -PETER DO YOU HAVE ANY OTHER QUESTIONS OR CONCERNS? : NO CURRENT MEDICATIONS TAKING IRON 325 MGS 1 TAB ORAL DAILY TAKING CYMBALTA 90 MG CAPSULE DELAYED RELEASE PARTICLES 1 CAPSULE ORALLY 30MG CAP AND 60 MG CAP DAILY TAKING VITAMIN D 1000 UNIT CAPSULE CAPSULE ORALLY ONCE A DAY TAKING FLONASE 50 MCG/ACT SUSPENSION 1 SPRAY IN EACH NOSTRIL NASALLY ONCE A DAY NEEDED TAKING SUMATRIPTAN SUCCINATE 100 MG TABLET 1 TABLET NEEDED ORALLY DIRECTED TAKING COLACE 100 MG CAPSULE 1 CAPSULE NEEDED ORALLY 3X/DAY TAKING SPIRONOLACTONE 25 MG TABLET 1 TABLET ORALLY DAILY TAKING MISOPROSTOL 200 MCG TABLET 1 TABLET WITH MEALS AND AT BEDTIME ORALLY FOUR TIMES A DAY TAKING FAMOTIDINE 20 MG TABLET DISINTEGRATING DIRECTED ORALLY BID TAKING PRAMIPEXOLE DIHYDROCHLORIDE 0.25 MG TABLET 1 TABLET ORALLY BID TAKING SUCRALFATE 1 GM TABLET 1 TABLET ON AN EMPTY STOMACH ORALLY FOUR TIMES DAILY TAKING CETIRIZINE HCL 10 MG TABLET ORALLY ONCE A DAY TAKING LOSARTAN POTASSIUM 25 MG TABLET ORALLY DAILY TAKING MONTELUKAST SODIUM 10 MG TABLET 1 TABLET ORALLY ONCE A DAY TAKING DITROPAN XL 10 MG TABLET EXTENDED RELEASE 24 HOUR 1 TABLET ORALLY ONCE A DAY TAKING OMEPRAZOLE 40 MG CAPSULE DELAYED RELEASE 1 CAPSULE ORALLY 2 TIMES DAILY TAKING VITAMIN B12 500 TABLET 500 MCG-2 TABS ORALLY DAILY TAKING MULTIVITAMIN 1 TABLET CHEWABLE 2 TABS ORALLY DAILY TAKING CALCIUM CITRATE + 630 MG TABLET 2 TABLET WITH MEALS ORALLY TWICE A DAY TAKING LASIX 40 MG TABLET ORALLY DAILY TAKING METFORMIN HCL 1000 MG TABLET 1 TABLET WITH MEALS ORALLY TWICE A DAY TAKING ROBAXIN-750 750 MG TABLET 1 TABLET ORALLY Q8H PRN TAKING GABAPENTIN 800 MG TABLET 1 CAPSULE ORALLY FOR PAIN TID TAKING AMITRIPTYLINE HCL 75 MG TABLET 1 TABLET ORALLY ONCE A DAY TAKING NYSTATIN [id number] UNIT/GM POWDER APPLY TO AFFECTED AREA S UNDER BREAST AND GROIN TWO TIMES A DAY EXTERNAL TAKING LYRICA 200 MG CAPSULE 1 CAPSULE ORALLY Q8H TID MDD3 TAKING SOMA 350 MG TABLET 1 TABLET NEEDED ORALLY Q8H NEEDEDFOR LEFT HIP PAIN MDD3, NOTES: 5 DAY SUPPLY ONLY NOT-TAKING SPIRONOLACTONE 50 MG TABLET 1 TABLET ORALLY ONCE A DAY NOT-TAKING FERROUS SULFATE 325 (65 FE) MG TABLET 1 TABLET ORALLY ONCE A DAY, NOTES: SEE ABOVE NOT-TAKING KETOROLAC TROMETHAMINE 10 MG TABLET 1 TABLET WITH FOOD OR MILK NEEDED ORALLY EVERY 6 HRS NOT-TAKING KETOROLAC TROMETHAMINE 10 MG TABLET 1 TABLET WITH FOOD OR MILK NEEDED ORALLY EVERY 6 HRS NOT-TAKING BUPRENORPHINE HCL 300 MCG FILM 1 FILM TO THE GUM BUCALLY EVERY 12 HRS, NOTES: HAS NOT STARTED YET NOT-TAKING CLONIDINE HCL 0.1 MG TABLET 1 TABLET ORALLY Q8H PRN NOT-TAKING WELLBUTRIN 100 MG TABLET 1 TABLET ORALLY TWICE A DAY NOT-TAKING MORPHINE SULFATE ER 15 MG TABLET EXTENDED RELEASE 1 TABLET ORALLY EVERY 12 HRS MDD2 NOT-TAKING OXYCODONE HCL 5 MG TABLET 1 TABLET NEEDED ORALLY Q8H PRN MDD3 #50 TAB SHOULD LAST 30 DAYS NOT-TAKING ABILIFY 5 MG TABLET 1 TABLET ORALLY ONCE A DAY NOT-TAKING CYCLOBENZAPRINE HCL 10 MG TABLET DIRECTED ORALLY Q8H PRN PAIN #30 TAB SHOULD LAST 30 DAYS MEDICATION LIST REVIEWED AND RECONCILED WITH THE PATIENT PAST MEDICAL HISTORY DIABETES HYPERTENSION HYPERCHOLESTEREMIA OBESITY GERD (GASTROESOPHAGEAL REFLUX DISEASE) GASTRIC BYPASS ANXIETY BACK PAIN RIGHT HIP AND KNEE PAIN ALLERGIES SULFA (FOR ALLERGY USE ONLY): RASH - ALLERGY NSAIDS: GASTRIC BYPASS - CONTRAINDICATION SURGICAL HISTORY GASTRIC BYPASS 06/2015 BILAT CARPAL TUNNEL C SECTION CHOLECYSTECTOMY TONSILLECTOMY & ADENOIDECTOMY D&C 10/2017 ENDOSCOPY 11/2018 FAMILY HISTORY FATHER: , DIAGNOSED WITH UNSPECIFIED HEART DISEASE MOTHER: ALIVE, HYPERTENSION, DIABETES 2 BROTHER(S) . 1 SON(S) - HEALTHY. 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 SOCIAL HISTORY GENERAL: TOBACCO USE ARE YOU A:CURRENT SMOKER ARE YOU INTERESTED IN QUITTING?NOT READY TO QUIT COUNSELED THE PATIENT ON SMOKING EFFECTS, EDUCATION [id number]/11/2021 HOW MANY CIGARETTES A DAY DO YOU SMOKE?11-20 HOW SOON AFTER YOU WAKE UP DO YOU SMOKE YOUR FIRST CIGARETTE?WITHIN 5 MIN HOW OFTEN DO YOU SMOKE CIGARETTES?EVERY DAY PATIENT COUNSELED ON THE DANGERS OF TOBACCO USE AND URGED TO QUIT:03/05/2020 SMOKING CESSATION INFORMATION GIVEN03/05/2020 PAMPHLET GIVEN 08/16/18 LATEX QUESTIONNAIRE LATEX ALLERGY : HAVE YOU EVER DEVELOPED ANY TYPE OF REACTION AFTER HANDLING LATEX PRODUCTS SUCH RUBBER GLOVES, CONDOMS, DIAPHRAGMS, BALLOONS, SOCKS, OR UNDERWEAR?NO LATEX ALLERGY : HAVE YOU EVER DEVELOPED ANY TYPE OF REACTION DURING OR AFTER DENTAL APPOINTMENT, VAGINAL/RECTAL EXAMINATION, SURGICAL PROCEDURE, OR ANY OTHER EXPOSURE?NO LATEX RISK : HAVE YOU EVER HAD ANY DIFFICULTY BREATHING OR HIVES AFTER EATING OR HANDLING ANY FRUITS, OR VEGETABLES; SUCH KIWI, BANANAS, STONE FRUITS, OR CHESTNUTSNO LATEX RISK : DO YOU HAVE A PREVIOUS PERSONAL HISTORY OF MORE THAN NINE SURGERIES, SPINA BIFIDA, OR REPEATED CATHERIZATIONS? NO LATEX RISK : ARE YOU FREQUENTLY EXPOSED TO LATEX PRODUCTS IN YOUR OCCUPATION?NO DATE ASKED : 05/31/2020 ALCOHOL USE: NO. ALCOHOL SCREENING DID YOU HAVE A DRINK CONTAINING ALCOHOL IN THE PAST YEAR?NO POINTS0 INTERPRETATIONNEGATIVE RECREATIONAL DRUG USE DRUG USE?NO CAFFEINE CAFFEINE USE?YES HOW OFTEN AND HOW MUCH? 2 BOTTLES [place] DEW/DAY ZOROASTRIANISM [id number] NONE LANGUAGE LANGUAGES SPOKEN:OCCITAN EDUCATION LEVEL OF EDUCATION:NOT FINISHED COLLEGE LEARNING BARRIERS / SPECIAL NEEDS CHANGE FROM LAST VISIT?NO BARRIERS TO LEARNING?NO HEARING IMPAIRED?YES RIGHT EAR HEARING AID VISION IMPAIRED?YES WEARS GLASSES :CORRECTIVE LENSES COGNITIVELY IMPAIRED?NO READINESS TO LEARN?YES LEARNING PREFERENCES?NO LEARNING CAPABILITIES PRESENT?YES EMOTIONAL BARRIERS?NO SPECIAL DEVICES?YES :WALKER IT INSTRUCTOR NEEDED?NO DOMESTIC VIOLENCE DO YOU FEEL SAFE IN YOUR ENVIRONMENT?YES OCCUPATION: DISABLED. DIET: REGULAR. EXERCISE: WALKS. MARITAL STATUS: SINGLE. OTHERS AT HOME: CHILD, OTHER NON-RELATIVE. - PFS REFERRAL NEEDED?NO CLERGY REFERRAL NEEDED?NO PUBLIC HEALTH REFERRAL NEEDED?NO WAS THE PROVIDER NOTIFIED OF ANY PERTINENT INFO? N/A HAS THE PATIENT BEEN EDUCATED REGARDING HIS/HER PLAN OF CARE?YES HAS THE PATIENT BEEN EDUCATED REGARDING PAIN, THE RISK FOR PAIN, THE IMPORTANCE OF EFFECTIVE PAIN MANAGEMENT, AND THE PAIN ASSESSMENT PROCESS?YES ADVANCE DIRECTIVE ADVANCE DIRECTIVE DISCUSSED WITH PATIENT:YES HCP - ARNULFO TAVERAS [phone] AND [facility]ITALIZATION/MAJOR DIAGNOSTIC PROCEDURE SURGERIES "FLUID ON LEGS" DEC OR 2018 KIDNEY INFECTION 05/18/2019 VITAL SIGNS WT 305.4 LBS, HT 60.5 IN, BMI 58.66 INDEX, BP 134/65 MM HG, HR 104 /MIN, RR 18 /MIN, TEMP 95.5 F, OXYGEN SAT % 99%, BLOOD GLUCOSE LEVEL 108, SAFE IN ENV? (Y/N) YES, NA INITIALS AW 1100, REVIEWED BY: Jose PRATT PRINTED CIRCUIT BOARDS CONTACT PRINTER. EXAMINATION GENERAL EXAMINATION: THE PATIENT IS ALERT, ORIENTED TIMES THREE AND COOPERATIVE. LUNGS ARE CLEAR TO AUSCULTATION. HEART SHOWS REGULAR RHYTHM, NO MURMURS AND NO GALLOPS. ASSESSMENTS GREATER TROCHANTERIC BURSITIS - M70.60 (PRIMARY) TREATMENT GREATER TROCHANTERIC BURSITIS [facility] FLUORO GUIDANCE (PAIN)[id number] MEDICATION: VALIUM TAB 5MG ORALLY (DIAZEPAM)TIFFANY MONROY 06/03/2020 11:20:45 AM > VERIFIED LYLY PRATT 06/03/2020 11:35:34 AM > ADMINISTERED AT 1122. MEDICATION: OXYCODONE HCL TAB 10MG ORALLYTIFFANY MONROY 06/03/2020 11:20:27 AM > VERIFIED LYLY PRATT 06/03/2020 11:35:56 AM > ADMINISTERED AT 1122. COMPLETION OF PROCEDURAL VISIT WHEN MEETS CRITERIA MED: PAIN BENADRYL TAB 25MG ORALLY DIPHENHYDRAMINETIFFANY MONROY 06/03/2020 11:20:59 AM > VERIFIED LYLY PRATT 06/03/2020 11:36:27 AM > ADMINISTERED AT 1122. OTHERS NOTES: PAT COMPLETED 05/31/20 M ANNE ACEVEDO. PROCEDURES PAIN NURSING RECORD PROCEDURE IN ROOM 1143, PHYSICIAN IN ROOM 1150, START 1155, FINISH 1204, PHYSICIAN OUT OF ROOM 1205, OUT OF ROOM 1213, ECG NORMAL SINUS, PATIENT SHIELDED YES, SAFETY STRAP YES, PREP CHLOROPREP Crystal ALEXANDER PRINTED CIRCUIT BOARDS CONTACT PRINTER, DRESSING TEGADERM DR. LAI LOC: LYLY PRATT 06/03/2020 11:43:47 AM > 1. ALERT, ORIENTED RESP: LYLY PRATT 06/03/2020 11:43:47 AM > 1. REGULAR, NO DYSPNEA COLOR: LYLY PRATT 06/03/2020 11:43:47 AM > 1. PINK SKIN: LYLY PRATT 06/03/2020 11:43:47 AM > 1. WARM, DRY POSITION: LYLY PRATT 06/03/2020 11:43:47 AM > 3. LATERAL, RIGHT SIDE DOWN, FACING REDEVELOPMENT SPECIALIST., LEFT SIDE UPWARDS TOWARDS PROVIDER. VITALS: LYLY PRATT 06/03/2020 11:45:10 AM > 123/80, 72, 96% RA. LYLY PRATT 06/03/2020 12:00:24 PM > 114/70, 70, 97% RA. NOTES LYLY PRATT 06/03/2020 11:49:46 AM > MEDICATIONS DRAWN UP BY Des RN. Jose PRATT RN VERIFIED CORRECT MEDICATION AND DOSE. MEDICATIONS REVERIFIED DURING TIME OUT BY DR. LAI PRIOR TO PROCEDURE. COMPLETION OF PROCEDURE APPOINTMENT: POST PAIN 5/10, DRESSING SITE DRY AND INTACT, IV N/A, GAIT STEADY PATIENT USES ROLLING WATER AT BASELINE, TEACHING COMPLETED, PATIENT ACKNOWLEDGES UNDERSTANDING YES, PROCEDURE APPOINTMENT COMPLETED AT BY: Jose PRATT RN AT 1230. PRE PROCEDURE DIAGNOSIS BURSITIS AT THE LEFT GREATER TROCHANTER OF THE FEMUR POST PROCEDURE DIAGNOSIS BURSITIS AT THE LEFT GREATER TROCHANTER OF THE FEMUR PROCEDURE INJECTION AT THE BURSA OF THE LEFT GREATER TROCHANTER OF THE FEMUR UNDER FLUOROSCOPIC GUIDANCE. SURGEON DR. AMELIA LAI PONY RIDE OPERATOR NONE ANESTHESIA LOCAL PRE PROCEDURE NOTE THE PATIENT HAS A HISTORY OF LEFT HIP PAIN. I EVALUATED THE PATIENT AND REVIEWED THE CHART. WE BOTH AGREE ON INJECTING OVER THE BURSA OF THE LEFT GREATER TROCHANTER OF THE FEMUR. I DISCUSSED THE RISKS, BENEFITS AND ALTERNATIVES ASSOCIATED WITH THIS PROCEDURE. THE PATIENT WOULD LIKE TO PROCEED AND GAVE CONSENT TO PERFORM THE PROCEDURE. THE PATIENT DENIES UNEXPLAINABLE WEIGHT LOSS, FEVERS, CHILLS, OR CHANGES IN HIS URINARY OR BOWEL CONTROL. THE PATIENT IS COVID-19 NEGATIVE DESCRIPTION OF PROCEDURE AFTER CONSENT WAS TAKEN, THE PATIENT WAS BROUGHT TO THE PROCEDURE ROOM AND PLACED IN THE RIGHT LATERAL DECUBITUS POSITION. THE LEFT HIP AREA WAS CLEANED WITH CHLORAPREP SOLUTION AND DRAPED ASEPTICALLY. THE PROCEDURE WAS DONE UNDER STERILE CONDITIONS. A TIMEOUT WAS PERFORMED WHERE THE CONSENTED SITE WAS VERIFIED WITH EVERYONE IN THE ROOM. UNDER FLUOROSCOPIC GUIDANCE, TARGET WAS SELECTED AT THE LEFT GREATER TROCHANTER OF THE FEMUR. I CONFIRMED AGAIN THE SITE OF THE TARGET. LIDOCAINE WAS USED TO NUMB THE SKIN AND THE SUBCUTANEOUS TISSUE BELOW IT. SPINAL NEEDLE, 22-GAUGE, WAS ADVANCED UNDER FLUOROSCOPIC GUIDANCE AND FOLLOWING PATIENT FEEDBACK UNTIL THE TARGET WAS TOUCHED. POSITION OF THE NEEDLE WAS VERIFIED WITH AP AND LATERAL VIEWS. AFTER PROPER POSITION OF THE NEEDLE WAS ACHIEVED, ISOVUE-M 30%, 1.0 ML, WAS INJECTED SHOWING ADEQUATE SPREAD OF THE DYE. KENALOG 40 MG WAS INJECTED. THEN, A SOLUTION OF 30 ML OF BUPIVACAINE 0.125% WAS USED TO FLUSH THE SITE. THE MEDICATIONS WERE VERIFIED WITH THE NURSE. THERE WAS NO EVIDENCE OF BLOOD OR PARESTHESIA. THE PATIENT WAS SENT TO THE RECOVERY ROOM. THE PATIENT WAS MOVING THE EXTREMITIES AND DOING WELL. THERE WERE NO COMPLICATIONS DURING THE PROCEDURE. ESTIMATED BLOOD LOSS WAS LESS THAN 5 ML. FLUOROSCOPIC TIME WAS 27 SECONDS POST PROCEDURE NOTE IF THE PATIENT IS STILL HAVING PAIN IN THE GROIN AREA, CONSIDER A HIP INJECTION. I DISCUSSED THE PROCEDURE WITH THE PATIENT. WE WILL SEE THE PATIENT BACK IN SEVERAL WEEKS FOR FOLLOWUP. I AM LOOKING FOR LONG-LASTING PAIN RELIEF WITH THIS INTERVENTION. I, FANY ESPINAL, DOCUMENTED THE ABOVE INFORMATION ACTING A SCRIBE FOR DR. LAI. I HAVE REVIEWED THE ABOVE DOCUMENT, WRITTEN BY FANY ESPINAL, SENIOR CATERING SALES MANAGER, AND I VERIFY THAT IT IS ACCURATE PROCEDURE CODES [id number] DRAIN/INJ JOINT/BURSA W/O US, MODIFIERS: [place] [id number] NEEDLE LOCALIZATION BY XRAY, MODIFIERS: 26 DISPOSITION & COMMUNICATION FOLLOW UP FOLLOW UP WITH RECEIVING MANAGER (REASON: POST LEFT GREATER TROCHANTER OF THE FEMUR BURSAL INJECTION) ELECTRONICALLY SIGNED BY AMELIA LAI MD, MD ON 06/11/2020 AT 01:14 PM EST DISCLAIMER : THIS IS A VISIT SUMMARY EXTRACTED FROM THE [employer] CHART. IT IS NOT A COPY OF THE [employer] PROGRESS NOTE. JUSTUS
== END ==
LOC: M PAIN 11:00
PROVIDERS: ATTEND Anesthesiology
DX: M70.62 Trochanteric bursitis, left hip (principal); E11.9 Type 2 diabetes mellitus without complications; I10 Essential (primary) hypertension; E78.00 Pure hypercholesterolemia, unspecified; E66.9 Obesity, unspecified; K21.9 Gastro-esophageal reflux disease without esophagitis; F41.9 Anxiety disorder, unspecified; M25.551 Pain in right hip; M25.561 Pain in right knee; M54.9 Dorsalgia, unspecified; F17.210 Nicotine dependence, cigarettes, uncomplicated; Z98.84 Bariatric surgery status; Z79.899 Other long term (current) drug therapy; Z88.2 Allergy status to sulfonamides; Z88.6 Allergy status to analgesic agent; Z68.43 Body mass index [BMI] 50.0-59.9, adult
CPT/HCPCS: 20610; 77002; J3301; Q9967

== ENCOUNTER → 2020-06-24 | Outpatient (CLI) | payer OTHER ==
[~2020-06-24] MED LIST changes: -BUPIVACAINE HCL 0.25% 30ML VIAL As Ordered ONE; -ISOVUE-M 300 61% 15ML VIAL As Ordered ONE; -LIDOCAINE 1% SDV 30ML VIAL As Ordered ONE; -TRIAMCINOLONE ACETONIDE SUSP 40 MG/ML VIAL (J3301) As Ordered ONE; -diazePAM 5MG TABLET As Ordered ONE; -diphenhydrAMINE 25MG CAP As Ordered ONE; -oxyCODONE 5MG TAB As Ordered ONE
--- NOTE | 2020-06-26 02:40 | ECWPNPC ---
PATIENT NAME: STELLA TAVERAS : 1975 GENDER: FEMALE VISIT DATE: 06/24/2020 DISCHARGE DATE: 06/24/20 1115 VISIT LOCKED DATE TIME: PHYSICIAN: PATRICIA MCNAMARA RESOURCE: PATRICIA MCNAMARA REASON FOR APPOINTMENT 1. POST TROCHANTERIC HIP INJECTION HISTORY OF PRESENT ILLNESS GENERAL: HERE FOR POST PROCEDURE FOLLOW-UP. HAD LEFT GREATER TROCHANTERIC BURSAL INJECTION. REPORTS SIGNIFICANT REDUCTION IN PAIN UP UNTIL A FEW DAYS AGO. STATES THIS PROCEDURE DID NOT HELP WITH LEFT GROIN PAIN. PAIN IS LOCATED ACROSS HER LOWER BACK AND RADIATES INTO THE LEFT LATERAL THIGH AND GROIN. I WOULD LIKE HER TO SEE DR. LAI TO ESTABLISH TREATMENT PLAN FOR INJECTIONS. STATES THAT SHE'S BEEN ABLE TO SLEEP WHEN SHE WAS ON SOMA BUT NOW IS AWAKENING IN PAIN. I'VE AGREED TO PRESCRIBE SOMA 350 MG 1 AT BEDTIME.-. FALL RISK SCREENING: SCREENING : NO FALLS REPORTED IN THE LAST YEAR. PAIN SCREENING: PATIENT HAS A COMPLAINT OF ACUTE OR CHRONIC PAIN :YES LOCATION OF PAIN:LEFT HIP INTENSITY OF PAIN (SCALE OF 1 TO 10):10 WHAT DOES YOUR PAIN FEEL LIKE:ACHING, BURNING, STABBING, THROBBING, SHOOTING DURATION:CONTINOUS, CONSTANT, ALL DAY PAIN IS INCREASED BY:ACTIVITIES PAIN IS DECREASED BY:USE OF PAIN MEDICATIONS NURSING NOTE: -. 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 :YES 2010 C SECTION DO YOU TAKE A BLOOD THINNERS? :NO DO YOU HAVE ANY BLEEDING DISORDERS? :NO ANY NEW NUMBNESS OR WEAKNESS IN YOUR LEGS OR ARMS? :YES LEFT LEG ANY PACEMAKER,DEFIBRILLATOR, OR DORSAL COLUMN STIMULATOR? :NO DO YOU HAVE ANY RASHES OR OPEN SORES? :NO ARE YOU ALLERGIC TO IV DYE? :NO ARE YOU DIABETIC? :YES ANY NEW PROBLEMS WITH YOUR MEDICATIONS? :NO HAVE YOU RECEIVED A VACCINE IN THE PAST 30 DAYS? :NO DO YOU PLAN TO RECEIVE A VACCINE IN THE NEXT 21 DAYS? :NO DO YOU NEED ANY PRESCRIPTION? :YES SOMA DO YOU TAKE ANY IMMUNOSUPPRESSIVE MEDICATIONS? :NO IS THERE A CHANCE YOU COULD BE ? :NO ARE YOU BREAST FEEDING? :NO CURRENT MEDICATIONS TAKING IRON 325 MGS 1 TAB ORAL DAILY TAKING CYMBALTA 90 MG CAPSULE DELAYED RELEASE PARTICLES 1 CAPSULE ORALLY 30MG CAP AND 60 MG CAP DAILY TAKING VITAMIN D 1000 UNIT CAPSULE CAPSULE ORALLY ONCE A DAY TAKING FLONASE 50 MCG/ACT SUSPENSION 1 SPRAY IN EACH NOSTRIL NASALLY ONCE A DAY NEEDED TAKING SUMATRIPTAN SUCCINATE 100 MG TABLET 1 TABLET NEEDED ORALLY DIRECTED TAKING COLACE 100 MG CAPSULE 1 CAPSULE NEEDED ORALLY 3X/DAY TAKING SPIRONOLACTONE 25 MG TABLET 1 TABLET ORALLY DAILY TAKING MISOPROSTOL 200 MCG TABLET 1 TABLET WITH MEALS AND AT BEDTIME ORALLY FOUR TIMES A DAY TAKING FAMOTIDINE 20 MG TABLET DISINTEGRATING DIRECTED ORALLY BID TAKING PRAMIPEXOLE DIHYDROCHLORIDE 0.25 MG TABLET 1 TABLET ORALLY BID TAKING SUCRALFATE 1 GM TABLET 1 TABLET ON AN EMPTY STOMACH ORALLY FOUR TIMES DAILY TAKING CETIRIZINE HCL 10 MG TABLET ORALLY ONCE A DAY TAKING LOSARTAN POTASSIUM 25 MG TABLET ORALLY DAILY TAKING MONTELUKAST SODIUM 10 MG TABLET 1 TABLET ORALLY ONCE A DAY TAKING DITROPAN XL 10 MG TABLET EXTENDED RELEASE 24 HOUR 1 TABLET ORALLY ONCE A DAY TAKING OMEPRAZOLE 40 MG CAPSULE DELAYED RELEASE 1 CAPSULE ORALLY 2 TIMES DAILY TAKING VITAMIN B12 500 TABLET 500 MCG-2 TABS ORALLY DAILY TAKING MULTIVITAMIN 1 TABLET CHEWABLE 2 TABS ORALLY DAILY TAKING CALCIUM CITRATE + 630 MG TABLET 2 TABLET WITH MEALS ORALLY TWICE A DAY TAKING LASIX 40 MG TABLET ORALLY DAILY TAKING METFORMIN HCL 1000 MG TABLET 1 TABLET WITH MEALS ORALLY TWICE A DAY TAKING AMITRIPTYLINE HCL 75 MG TABLET 1 TABLET ORALLY ONCE A DAY TAKING NYSTATIN 285488 UNIT/GM POWDER APPLY TO AFFECTED AREA S UNDER BREAST AND GROIN TWO TIMES A DAY EXTERNAL TAKING LYRICA 200 MG CAPSULE 1 CAPSULE ORALLY Q8H TID MDD3 TAKING GABAPENTIN 800 MG TABLET 1 CAPSULE ORALLY FOR PAIN TID TAKING ROBAXIN-750 750 MG TABLET 1 TABLET ORALLY Q8H PRN TAKING SOMA 350 MG TABLET 1 TABLET NEEDED ORALLY Q8H NEEDEDFOR LEFT HIP PAIN MDD3, NOTES: 5 DAY SUPPLY ONLY NOT-TAKING SPIRONOLACTONE 50 MG TABLET 1 TABLET ORALLY ONCE A DAY NOT-TAKING FERROUS SULFATE 325 (65 FE) MG TABLET 1 TABLET ORALLY ONCE A DAY, NOTES: SEE ABOVE NOT-TAKING KETOROLAC TROMETHAMINE 10 MG TABLET 1 TABLET WITH FOOD OR MILK NEEDED ORALLY EVERY 6 HRS NOT-TAKING KETOROLAC TROMETHAMINE 10 MG TABLET 1 TABLET WITH FOOD OR MILK NEEDED ORALLY EVERY 6 HRS NOT-TAKING BUPRENORPHINE HCL 300 MCG FILM 1 FILM TO THE GUM BUCALLY EVERY 12 HRS, NOTES: HAS NOT STARTED YET NOT-TAKING CLONIDINE HCL 0.1 MG TABLET 1 TABLET ORALLY Q8H PRN NOT-TAKING WELLBUTRIN 100 MG TABLET 1 TABLET ORALLY TWICE A DAY NOT-TAKING MORPHINE SULFATE ER 15 MG TABLET EXTENDED RELEASE 1 TABLET ORALLY EVERY 12 HRS MDD2 NOT-TAKING OXYCODONE HCL 5 MG TABLET 1 TABLET NEEDED ORALLY Q8H PRN MDD3 #50 TAB SHOULD LAST 30 DAYS NOT-TAKING ABILIFY 5 MG TABLET 1 TABLET ORALLY ONCE A DAY NOT-TAKING CYCLOBENZAPRINE HCL 10 MG TABLET DIRECTED ORALLY Q8H PRN PAIN #30 TAB SHOULD LAST 30 DAYS MEDICATION LIST REVIEWED AND RECONCILED WITH THE PATIENT PAST MEDICAL HISTORY DIABETES HYPERTENSION HYPERCHOLESTEREMIA OBESITY GERD (GASTROESOPHAGEAL REFLUX DISEASE) GASTRIC BYPASS ANXIETY BACK PAIN RIGHT HIP AND KNEE PAIN ALLERGIES SULFA (FOR ALLERGY USE ONLY): RASH - ALLERGY NSAIDS: GASTRIC BYPASS - CONTRAINDICATION SOCIAL HISTORY GENERAL: TOBACCO USE ARE YOU A:CURRENT SMOKER HOW OFTEN DO YOU SMOKE CIGARETTES?EVERY DAY HOW SOON AFTER YOU WAKE UP DO YOU SMOKE YOUR FIRST CIGARETTE?WITHIN 5 MIN HOW MANY CIGARETTES A DAY DO YOU SMOKE?11-20 ARE YOU INTERESTED IN QUITTING?NOT READY TO QUIT PATIENT COUNSELED ON THE DANGERS OF TOBACCO USE AND URGED TO QUIT:03/05/2020 COUNSELED THE PATIENT ON SMOKING EFFECTS, EDUCATION [id number]/11/2021 SMOKING CESSATION INFORMATION GIVEN03/05/2020 PAMPHLET GIVEN 08/16/18 LATEX QUESTIONNAIRE LATEX ALLERGY : HAVE YOU EVER DEVELOPED ANY TYPE OF REACTION AFTER HANDLING LATEX PRODUCTS SUCH RUBBER GLOVES, CONDOMS, DIAPHRAGMS, BALLOONS, SOCKS, OR UNDERWEAR?NO LATEX ALLERGY : HAVE YOU EVER DEVELOPED ANY TYPE OF REACTION DURING OR AFTER DENTAL APPOINTMENT, VAGINAL/RECTAL EXAMINATION, SURGICAL PROCEDURE, OR ANY OTHER EXPOSURE?NO LATEX RISK : HAVE YOU EVER HAD ANY DIFFICULTY BREATHING OR HIVES AFTER EATING OR HANDLING ANY FRUITS, OR VEGETABLES; SUCH KIWI, BANANAS, STONE FRUITS, OR CHESTNUTSNO LATEX RISK : DO YOU HAVE A PREVIOUS PERSONAL HISTORY OF MORE THAN NINE SURGERIES, SPINA BIFIDA, OR REPEATED CATHERIZATIONS? NO LATEX RISK : ARE YOU FREQUENTLY EXPOSED TO LATEX PRODUCTS IN YOUR OCCUPATION?NO DATE ASKED : 06/24/2020 ALCOHOL USE: NO. ALCOHOL SCREENING DID YOU HAVE A DRINK CONTAINING ALCOHOL IN THE PAST YEAR?NO POINTS0 INTERPRETATIONNEGATIVE RECREATIONAL DRUG USE DRUG USE?NO CAFFEINE CAFFEINE USE?YES HOW OFTEN AND HOW MUCH? 2 BOTTLES [place] DEW/DAY CAODAISM [id number] NONE LANGUAGE LANGUAGES SPOKEN:YORUBA EDUCATION LEVEL OF EDUCATION:NOT FINISHED COLLEGE LEARNING BARRIERS / SPECIAL NEEDS CHANGE FROM LAST VISIT?NO BARRIERS TO LEARNING?NO HEARING IMPAIRED?YES RIGHT EAR HEARING AID VISION IMPAIRED?YES WEARS GLASSES COGNITIVELY IMPAIRED?NO :CORRECTIVE LENSES READINESS TO LEARN?YES LEARNING PREFERENCES?NO LEARNING CAPABILITIES PRESENT?YES EMOTIONAL BARRIERS?NO SPECIAL DEVICES?YES :WALKER ANIMAL THERAPIST NEEDED?NO DOMESTIC VIOLENCE DO YOU FEEL SAFE IN YOUR ENVIRONMENT?YES OCCUPATION: DISABLED. DIET: REGULAR. EXERCISE: WALKS. MARITAL STATUS: SINGLE. OTHERS AT HOME: CHILD, OTHER NON-RELATIVE. - PFS REFERRAL NEEDED?NO CLERGY REFERRAL NEEDED?NO PUBLIC HEALTH REFERRAL NEEDED?NO WAS THE PROVIDER NOTIFIED OF ANY PERTINENT INFO? N/A HAS THE PATIENT BEEN EDUCATED REGARDING HIS/HER PLAN OF CARE?YES HAS THE PATIENT BEEN EDUCATED REGARDING PAIN, THE RISK FOR PAIN, THE IMPORTANCE OF EFFECTIVE PAIN MANAGEMENT, AND THE PAIN ASSESSMENT PROCESS?YES ADVANCE DIRECTIVE ADVANCE DIRECTIVE DISCUSSED WITH PATIENT:YES HCP - ARNULFO TAVERAS [phone] AND [facility]ENS[facility] REVIEW OF SYSTEMS CONSTITUTIONAL: ANY RECENT FEVER NO . CHILLS NO . WEIGHT CHANGE OF UNKNOWN REASONS NO . GASTROENTEROLOGY: NEW UNEXPLAINABLE CHANGES IN BOWEL CONTROL NO . CONSTIPATION NO . GENITOURINARY: ANY NEW CHANGE IN BLADDER CONTROL? NO . NEUROLOGY: NEW ONSET DIZZINESS OR NEUROLOGICAL CHANGES NOT MENTIONED NO . NEW NUMBNESS OR PAIN PATTERNS NOT MENTIONED AND PERTINENT TO TODAY'S VISIT NO . CARDIOLOGY: NEW CHEST PRESSURE NO . PATIENT DENIES NO . RESPIRATORY: UNEXPLAINABLE COUGH NO . NEW SHORTNESS OF BREATH NO . VITAL SIGNS WT 304.4 LBS, HT 60.5 IN, BMI 58.46 INDEX, BP 122/62 MM HG, HR 89 /MIN, RR 18 /MIN, TEMP 96.0 F, OXYGEN SAT % 100%, SAFE IN ENV? (Y/N) YES, NA INITIALS AW [id number].CARINA ZULUAGA. EXAMINATION GENERAL EXAMINATION: GENERAL AWAKE,ALERT ,PLEASANT . PSYCH AFFECT NORMAL . LUNGS: LUNG ARORA ARE CLEAR TO AUSCULTATION BILATERALLY. GOOD MOVEMENT OF AIR . HEART: S1, S2 IN A REGULAR RATE AND RHYTHM. NO SIGNIFICANT MURMURS, RUBS OR GALLOPS NOTED . MUSCULOSKELETAL:MARKED WEAKNESS NOTED BILATERAL LOWER EXTREMITIES LEFT GREATER THAN RIGHT . EXTREMITIES:TENDERNESS OVER LEFT GROIN AREA THAT RADIATES INTO LEFT HIP . 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 NO IMPROVEMENT LEFT GROIN PAIN. NOTES: FOLLOW-UP WITH DR. LAI TO CONSIDER INTERVENTIONAL THERAPY I.E. LEFT FEMORAL CUTANEOUS BLOCK, L3 LESI AND/OR REPEAT LEFT HIP TROCHANTERIC BURSAL INJECTION. PROCEDURE CODES FA211 ESTABILISHED PATIENT [facility] CHARGE DISPOSITION & COMMUNICATION FOLLOW UP 2 MONTHS ADRIANE MGMNT-SOMA (REASON: FOLLOW-UP WITH DR. LAI TO CONSIDER INTERVENTIONAL THERAPY I.E. LEFT FEMORAL CUTANEOUS BLOCK, L3 LESI AND/OR REPEAT LEFT HIP TROCHANTERIC BURSAL INJECTION) ELECTRONICALLY SIGNED BY STEPHAN DRAKE ON 06/25/2020 AT 01:07 PM EST DISCLAIMER : THIS IS A VISIT SUMMARY EXTRACTED FROM THE [employer] CHART. IT IS NOT A COPY OF THE [employer] PROGRESS NOTE. JUSTUS
== END ==
LOC: M PAIN 10:15
PROVIDERS: ATTEND Nurse Practitioner Family
DX: G89.29 Other chronic pain (principal); M70.62 Trochanteric bursitis, left hip; M47.816 Spondylosis without myelopathy or radiculopathy, lumbar region; E11.9 Type 2 diabetes mellitus without complications; I10 Essential (primary) hypertension; E78.00 Pure hypercholesterolemia, unspecified; E66.9 Obesity, unspecified; K21.9 Gastro-esophageal reflux disease without esophagitis; F41.9 Anxiety disorder, unspecified; Z98.84 Bariatric surgery status; F17.210 Nicotine dependence, cigarettes, uncomplicated; Z68.43 Body mass index [BMI] 50.0-59.9, adult; Z79.899 Other long term (current) drug therapy; Z88.2 Allergy status to sulfonamides; Z88.6 Allergy status to analgesic agent

== ENCOUNTER → 2020-07-05 | Outpatient (CLI) | payer OTHER ==
--- NOTE | 2020-07-06 00:37 | ECWPNPC ---
PATIENT NAME: SETLLA TAVERAS : 1975 GENDER: FEMALE VISIT DATE: 07/05/2020 DISCHARGE DATE: 07/05/20 1200 VISIT LOCKED DATE TIME: PHYSICIAN: AMELIA LAI MD RESOURCE: AMELIA LAI MD REASON FOR APPOINTMENT 1. FOLLOW-UP WITH DR. LAI TO CONSIDER INTERVENTIONAL THERAPY I.E. LEFT FEMORAL CUTANEOUS BLOCK, L3 LESI AND/OR REPEAT LEFT HIP TROCHANTERIC BURSAL INJECTION HISTORY OF PRESENT ILLNESS GENERAL: 45-YEAR-OLD FEMALE PATIENT WITH A HISTORY OF CHRONIC LOW BACK AND MAINLY LEFT HIP PAIN. THE PATIENT DESCRIBES THE PAIN STABBING, SHOOTING AND CONTINUOUS WITH A PAIN SCORE RANGING FROM 8-10/10 IN THE BACK WITH RADIATION OVER THE LEFT LEG. THE PATIENT ALSO REPORTS PAIN OVER THE LEFT HIP. THE PATIENT HAS RECEIVED BACK AND LEFT HIP INJECTIONS WITH SOME PAIN RELIEF BUT THE PATIENT IS NOT SURE WHICH INJECTION HELPS HER MORE. THE PATIENT IS HAVING DIFFICULTY MOVING AROUND, SLEEPING, GETTING AROUND HER HOUSE AND CLEANING. SHE USES A WALKER TO AMBULATE. THE PATIENT IS FOLLOWING MEDICATION MANAGEMENT WITH THE NURSE PRACTITIONER. FALL RISK SCREENING: SCREENING PATIENT REPORTS TWO OR MORE FALLS IN THE PAST YEAR, MOST RECENTLY A WEEK AGO, RESULTING IN LACERATION TO LEG. PATIENT REPORTS BEING HALF ASLEEP.. PAIN SCREENING: PATIENT HAS A COMPLAINT OF ACUTE OR CHRONIC PAIN :YES LOCATION OF PAIN: LEFT LOW BACK, LEFT HIP, LEFT LEG RADIATING INTO FOOT. INTENSITY OF PAIN (SCALE OF 1 TO 10): 10+ WHAT DOES YOUR PAIN FEEL LIKE:STABBING, SHOOTING, CONTINOUS DURATION:CONSTANT, AWAKENS FROM SLEEP PAIN IS INCREASED BY:ACTIVITIES, PROLONGED STANDING PAIN IS DECREASED BY:USE OF PAIN MEDICATIONS PAIN HAS INTERFERED WITH THE FOLLOWING: INTERFERES WITH ALL ADLS. PLAN/GOALS/TREATMENT/INTERVENTION/FOLLOW UP:SEE PLAN NURSING NOTE: -. 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 :YES 2009 C SECTION DO YOU TAKE A BLOOD THINNERS? :NO DO YOU HAVE ANY BLEEDING DISORDERS? :NO ANY NEW NUMBNESS OR WEAKNESS IN YOUR LEGS OR ARMS? :YES LEFT LEG ANY PACEMAKER,DEFIBRILLATOR, OR DORSAL COLUMN STIMULATOR? :NO DO YOU HAVE ANY RASHES OR OPEN SORES? :NO ARE YOU ALLERGIC TO IV DYE? :NO ARE YOU DIABETIC? :YES ANY NEW PROBLEMS WITH YOUR MEDICATIONS? :NO HAVE YOU RECEIVED A VACCINE IN THE PAST 30 DAYS? :NO DO YOU PLAN TO RECEIVE A VACCINE IN THE NEXT 21 DAYS? :NO DO YOU NEED ANY PRESCRIPTION? :NO DO YOU TAKE ANY IMMUNOSUPPRESSIVE MEDICATIONS? :NO IS THERE A CHANCE YOU COULD BE ? :NO ARE YOU BREAST FEEDING? :NO CURRENT MEDICATIONS TAKING IRON 325 MGS 1 TAB ORAL DAILY TAKING CYMBALTA 60 MG CAPSULE DELAYED RELEASE PARTICLES 2 CAPSULES ORALLY ONCE A DAY TAKING VITAMIN D 1000 UNIT CAPSULE CAPSULE ORALLY ONCE A DAY TAKING FLONASE 50 MCG/ACT SUSPENSION 1 SPRAY IN EACH NOSTRIL NASALLY ONCE A DAY NEEDED TAKING SUMATRIPTAN SUCCINATE 100 MG TABLET 1 TABLET NEEDED ORALLY DIRECTED TAKING COLACE 100 MG CAPSULE 1 CAPSULE NEEDED ORALLY 3X/DAY TAKING SPIRONOLACTONE 25 MG TABLET 1 TABLET ORALLY DAILY TAKING MISOPROSTOL 200 MCG TABLET 1 TABLET WITH MEALS AND AT BEDTIME ORALLY FOUR TIMES A DAY TAKING FAMOTIDINE 20 MG TABLET DISINTEGRATING DIRECTED ORALLY BID TAKING PRAMIPEXOLE DIHYDROCHLORIDE 0.25 MG TABLET 1 TABLET ORALLY BID TAKING SUCRALFATE 1 GM TABLET 1 TABLET ON AN EMPTY STOMACH ORALLY FOUR TIMES DAILY TAKING CETIRIZINE HCL 10 MG TABLET ORALLY ONCE A DAY TAKING LOSARTAN POTASSIUM 25 MG TABLET ORALLY DAILY TAKING MONTELUKAST SODIUM 10 MG TABLET 1 TABLET ORALLY ONCE A DAY TAKING DITROPAN XL 10 MG TABLET EXTENDED RELEASE 24 HOUR 1 TABLET ORALLY ONCE A DAY TAKING OMEPRAZOLE 40 MG CAPSULE DELAYED RELEASE 1 CAPSULE ORALLY 2 TIMES DAILY TAKING VITAMIN B12 500 TABLET 500 MCG-2 TABS ORALLY DAILY TAKING MULTIVITAMIN 1 TABLET CHEWABLE 2 TABS ORALLY DAILY TAKING CALCIUM CITRATE + 630 MG TABLET 2 TABLET WITH MEALS ORALLY TWICE A DAY TAKING LASIX 40 MG TABLET ORALLY DAILY TAKING METFORMIN HCL 1000 MG TABLET 1 TABLET WITH MEALS ORALLY TWICE A DAY TAKING AMITRIPTYLINE HCL 75 MG TABLET 1 TABLET ORALLY ONCE A DAY TAKING NYSTATIN [id number] UNIT/GM POWDER APPLY TO AFFECTED AREA S UNDER BREAST AND GROIN TWO TIMES A DAY EXTERNAL TAKING LYRICA 200 MG CAPSULE 1 CAPSULE ORALLY Q8H TID MDD3 TAKING GABAPENTIN 800 MG TABLET 1 CAPSULE ORALLY FOR PAIN TID TAKING ROBAXIN-750 750 MG TABLET 1 TABLET ORALLY Q8H PRN TAKING SOMA 350 MG TABLET 1 TABLET NEEDED ORALLY Q8H NEEDEDFOR LEFT HIP PAIN MDD3, NOTES: 5 DAY SUPPLY ONLY NOT-TAKING SPIRONOLACTONE 50 MG TABLET 1 TABLET ORALLY ONCE A DAY NOT-TAKING FERROUS SULFATE 325 (65 FE) MG TABLET 1 TABLET ORALLY ONCE A DAY, NOTES: SEE ABOVE NOT-TAKING KETOROLAC TROMETHAMINE 10 MG TABLET 1 TABLET WITH FOOD OR MILK NEEDED ORALLY EVERY 6 HRS NOT-TAKING KETOROLAC TROMETHAMINE 10 MG TABLET 1 TABLET WITH FOOD OR MILK NEEDED ORALLY EVERY 6 HRS NOT-TAKING BUPRENORPHINE HCL 300 MCG FILM 1 FILM TO THE GUM BUCALLY EVERY 12 HRS, NOTES: HAS NOT STARTED YET NOT-TAKING CLONIDINE HCL 0.1 MG TABLET 1 TABLET ORALLY Q8H PRN NOT-TAKING WELLBUTRIN 100 MG TABLET 1 TABLET ORALLY TWICE A DAY NOT-TAKING MORPHINE SULFATE ER 15 MG TABLET EXTENDED RELEASE 1 TABLET ORALLY EVERY 12 HRS MDD2 NOT-TAKING OXYCODONE HCL 5 MG TABLET 1 TABLET NEEDED ORALLY Q8H PRN MDD3 #50 TAB SHOULD LAST 30 DAYS NOT-TAKING ABILIFY 5 MG TABLET 1 TABLET ORALLY ONCE A DAY NOT-TAKING CYCLOBENZAPRINE HCL 10 MG TABLET DIRECTED ORALLY Q8H PRN PAIN #30 TAB SHOULD LAST 30 DAYS MEDICATION LIST REVIEWED AND RECONCILED WITH THE PATIENT PAST MEDICAL HISTORY DIABETES HYPERTENSION HYPERCHOLESTEREMIA OBESITY GERD (GASTROESOPHAGEAL REFLUX DISEASE) GASTRIC BYPASS ANXIETY BACK PAIN RIGHT HIP AND KNEE PAIN ALLERGIES SULFA (FOR ALLERGY USE ONLY): RASH - ALLERGY NSAIDS: GASTRIC BYPASS - CONTRAINDICATION SURGICAL HISTORY GASTRIC BYPASS 06/2015 BILAT CARPAL TUNNEL C SECTION CHOLECYSTECTOMY TONSILLECTOMY & ADENOIDECTOMY D&C 10/2017 ENDOSCOPY 11/2018 REVIEW OF SYSTEMS CONSTITUTIONAL: ANY RECENT FEVER NO . CHILLS NO . WEIGHT CHANGE OF UNKNOWN REASONS NO . GASTROENTEROLOGY: NEW UNEXPLAINABLE CHANGES IN BOWEL CONTROL NO . CONSTIPATION NO . GENITOURINARY: ANY NEW CHANGE IN BLADDER CONTROL? NO . NEUROLOGY: NEW ONSET DIZZINESS OR NEUROLOGICAL CHANGES NOT MENTIONED NO . NEW NUMBNESS OR PAIN PATTERNS NOT MENTIONED AND PERTINENT TO TODAY'S VISIT NO . CARDIOLOGY: NEW CHEST PRESSURE NO . PATIENT DENIES NO . RESPIRATORY: UNEXPLAINABLE COUGH NO . NEW SHORTNESS OF BREATH NO . VITAL SIGNS WT 303.8 LBS, HT 60.5 IN, BMI 58.35 INDEX, BP 121/66 MM HG, HR 90 /MIN, RR 20 /MIN, TEMP 96.8 F, OXYGEN SAT % 99%, BLOOD GLUCOSE LEVEL NOT ASSESSED., SAFE IN ENV? (Y/N) YES, NA INITIALS MA 10:47, REVIEWED BY: Jose PRATT LICENSED THERAPIST. EXAMINATION GENERAL EXAMINATION: THE PATIENT IS ALERT, ORIENTED TIMES THREE AND COOPERATIVE. SHE IS OBESE. SHE HAS A HARD TIME STANDING UP. SHE NEEDS A WALKER TO AMBULATE. SHE HAS PITTING EDEMA IN BOTH LEGS. SHE LIMPS FROM THE LEFT LEG. TENDERNESS IN THE BACK IN THE PARASPINAL MUSCLE GROUP. THE PATIENT CANNOT MOVE THE HIP ONTO THE BED. THE BED IS TOO HIGH FOR THE PATIENT. THE PATIENT HAS DIFFICULTY GETTING ONTO THE BED, WAY MORE DIFFICULTLY WITH THE LEFT HIP. TENDERNESS OVER THE INGUINAL AREA. I TRIED TO INDUCE STRAIGHT LEG RAISING OVER THE LEFT LEG BUT IT IS DIFFICULT TO ACERTAIN IF IT IS COMING FROM HER BACK OR HIP. LUMBAR MRI DATED 02/20/2019 IS SHOWING DISC PROTRUSION L4-L5 WITH CENTRAL CANAL STENOSIS, FACET ARTHROPATHY CHANGES, L2-L3 ALSO SHOWS SOME CENTRAL CANAL STENOSIS. LEFT HIP MRI IS SHOWING SOME EDEMA WITH SOME DEGENERATIVE CHANGES. 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 Jose PRATT RN BSN. CLINICAL NOTES: I DISCUSSED ALTERNATIVES WITH THE PATIENT. THE PATIENT WAS ADVISED BY [facility] TO HAVE A RIGHT HIP SURGERY BUT SHE WILL NEED TO LOSE WEIGHT FIRST. SHE HAS A HISTORY OF A GASTRIC BYPASS. WE WILL DISCUSS THE CASE WITH HER PRIMARY CARE PHYSICIAN TO SEE IF IT IS ADVISABLE TO REFER HER FOR A REVISION GASTRIC BYPASS FOR BETTER CONTROL OF HER PAIN AND HER GENERAL WELL BEING. IN THE FUTURE, WE CAN CONSIDER DOING A COOL RF, BUT WE ARE NOT CURRENTLY PERFORMING THAT AND WE ARE NOT READY FOR THAT. AT THE MOMENT, I WILL DO AN EPIDURAL WHERE I WILL ASSESS HER LEFT HIP PAIN AFTER. SUBSEQUENTLY, I WOULD LIKE TO DO A LEFT HIP INJECTION TO SEE IF THAT BETTER CONTROLS HER PAIN. I WOULD LIKE TO SEE HER 1 WEEK AFTER BOTH OF THOSE INJECTIONS. I WOULD LIKE TO DISCUSS THE AMELIA GURROLA WHO SAW THE PATIENT. IF THE PATIENT IS APPROVED FOR THE REVISION GASTRIC BYPASS, SHE WILL NEED TO MENTALLY PREPARE FOR THIS. I WILL REQUEST AUTHORIZATION FOR A LUMBAR EPIDURAL STEROID INJECTION L4-L5 BASED ON THE MRI. SHE EXPLAINED TO ME THAT SHE DOES NOT HAVE ANY MEDICATIONS TO HELP HER WITH HER PAIN DURING THE DAY. . I WILL REFER HER BACK TO PATRICIA MCNAMARA FOR MEDICATION MANAGEMENT. THE PATIENT REPORTS UNDERSTANDING AND AGREES WITH THE PLAN. I, FANY ESPINAL, DOCUMENTED THE ABOVE INFORMATION ACTING A SCRIBE FOR DR. LAI. I HAVE REVIEWED THE ABOVE DOCUMENT, WRITTEN BY FANY ESPINAL, HORSE SHOW MANAGER, AND I VERIFY THAT IT IS ACCURATE. PROCEDURE CODES FA211 ESTABILISHED PATIENT [facility] CHARGE [id number] OFFICE/OUTPATIENT VISIT EST DISPOSITION & COMMUNICATION FOLLOW UP REQUEST AUTH FOR LUMBAR EPIDURAL STEROID INJECTION (REASON: REQUEST AUTH FOR LUMBAR EPIDURAL STEROID INJECTION, FOLLOW UP 1 WEEK AFTER INJECTION WITH DR. LAI ) ELECTRONICALLY SIGNED BY AMELIA LAI MD, MD ON 07/05/2020 AT 02:55 PM EDT DISCLAIMER : THIS IS A VISIT SUMMARY EXTRACTED FROM THE [employer] CHART. IT IS NOT A COPY OF THE [employer] PROGRESS NOTE. JUSTUS
== END ==
LOC: M PAIN 11:00
PROVIDERS: ATTEND Anesthesiology
DX: M48.061 Spinal stenosis, lumbar region without neurogenic claudication (principal); M51.16 Intervertebral disc disorders with radiculopathy, lumbar region; M94.252 Chondromalacia, left hip; E11.9 Type 2 diabetes mellitus without complications; I10 Essential (primary) hypertension; E78.00 Pure hypercholesterolemia, unspecified; E66.9 Obesity, unspecified; K21.9 Gastro-esophageal reflux disease without esophagitis; F41.9 Anxiety disorder, unspecified; Z98.84 Bariatric surgery status; Z68.43 Body mass index [BMI] 50.0-59.9, adult; Z88.2 Allergy status to sulfonamides; Z88.6 Allergy status to analgesic agent; Z79.84 Long term (current) use of oral hypoglycemic drugs; Z79.899 Other long term (current) drug therapy

== ENCOUNTER → 2020-07-11 | Outpatient (CLI) | payer OTHER ==
--- NOTE | 2020-07-18 01:55 | ECWPNPC ---
PATIENT NAME: STELLA TAVERAS : 1975 GENDER: FEMALE VISIT DATE: 07/11/2020 DISCHARGE DATE: 07/11/20 1123 VISIT LOCKED DATE TIME: PHYSICIAN: PATRICIA MCNAMARA RESOURCE: PATRICIA MCNAMARA REASON FOR APPOINTMENT 1. MED MANAGEMENT PER DR. LAI HISTORY OF PRESENT ILLNESS GENERAL: HERE FOR MEDICATION MANAGEMENT PER DR. LAI REFERRAL. SPOKE WITH DR. LAI REGARDING HER SITUATION. PATIENT CONTINUES TO USE MARIJUANA FOR PAIN CONTROL. CONTINUES TO BE IN EXTREME PAIN. CANNOT HAVE NSAIDS DUE TO GASTRIC BYPASS. CANNOT HAVE NARCOTIC PAIN MEDICATIONS DUE TO MARIJUANA USE. WE HAVE TRIED THIS SEVERAL TIMES IN THE PAST WITH ABNORMAL URINE TOXICOLOGY'S. DR. LAI IS WORKING WITH HER AND IS CONSIDERING DORSAL COLUMN STIMULATOR. HE HAS AGREED TO FOLLOW HER FOR INTERVENTIONS AND I INFORMED HER THAT I WOULD BE HANDLING MEDICATION AND NOT DR. LAI. ALL QUESTIONS REGARDING MEDICATIONS SHOULD COME TO ME. DISCUSSED USE OF SOMA. SHE HAS BEEN GETTING RELIEF AT NIGHTTIME WITH THIS MEDICATION.-. FALL RISK SCREENING: SCREENING : NO FALLS REPORTED IN THE LAST YEAR. PAIN SCREENING: PATIENT HAS A COMPLAINT OF ACUTE OR CHRONIC PAIN :YES LOCATION OF PAIN:LOW BACK INTENSITY OF PAIN (SCALE OF 1 TO 10):10 WHAT DOES YOUR PAIN FEEL LIKE:ACHING, SHARP, STABBING, THROBBING, SHOOTING DURATION:CONTINOUS, CONSTANT, ALL DAY PAIN IS INCREASED BY:ACTIVITIES PAIN IS DECREASED BY:USE OF PAIN MEDICATIONS NURSING NOTE: -. 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 :YES 2010 C SECTION DO YOU TAKE A BLOOD THINNERS? :NO DO YOU HAVE ANY BLEEDING DISORDERS? :NO ANY NEW NUMBNESS OR WEAKNESS IN YOUR LEGS OR ARMS? :YES IN RIGHT HIP ANY PACEMAKER,DEFIBRILLATOR, OR DORSAL COLUMN STIMULATOR? :NO DO YOU HAVE ANY RASHES OR OPEN SORES? :NO ARE YOU ALLERGIC TO IV DYE? :NO ARE YOU DIABETIC? :YES ANY NEW PROBLEMS WITH YOUR MEDICATIONS? :NO HAVE YOU RECEIVED A VACCINE IN THE PAST 30 DAYS? :NO DO YOU PLAN TO RECEIVE A VACCINE IN THE NEXT 21 DAYS? :NO DO YOU NEED ANY PRESCRIPTION? :NO DO YOU TAKE ANY IMMUNOSUPPRESSIVE MEDICATIONS? :NO IS THERE A CHANCE YOU COULD BE ? :NO ARE YOU BREAST FEEDING? :NO CURRENT MEDICATIONS TAKING IRON 325 MGS 1 TAB ORAL DAILY TAKING CYMBALTA 60 MG CAPSULE DELAYED RELEASE PARTICLES 2 CAPSULES ORALLY ONCE A DAY TAKING VITAMIN D 1000 UNIT CAPSULE CAPSULE ORALLY ONCE A DAY TAKING FLONASE 50 MCG/ACT SUSPENSION 1 SPRAY IN EACH NOSTRIL NASALLY ONCE A DAY NEEDED TAKING SUMATRIPTAN SUCCINATE 100 MG TABLET 1 TABLET NEEDED ORALLY DIRECTED TAKING COLACE 100 MG CAPSULE 1 CAPSULE NEEDED ORALLY 3X/DAY TAKING SPIRONOLACTONE 25 MG TABLET 1 TABLET ORALLY DAILY TAKING MISOPROSTOL 200 MCG TABLET 1 TABLET WITH MEALS AND AT BEDTIME ORALLY FOUR TIMES A DAY TAKING FAMOTIDINE 20 MG TABLET DISINTEGRATING DIRECTED ORALLY BID TAKING PRAMIPEXOLE DIHYDROCHLORIDE 0.25 MG TABLET 1 TABLET ORALLY BID TAKING SUCRALFATE 1 GM TABLET 1 TABLET ON AN EMPTY STOMACH ORALLY FOUR TIMES DAILY TAKING CETIRIZINE HCL 10 MG TABLET ORALLY ONCE A DAY TAKING LOSARTAN POTASSIUM 25 MG TABLET ORALLY DAILY TAKING MONTELUKAST SODIUM 10 MG TABLET 1 TABLET ORALLY ONCE A DAY TAKING DITROPAN XL 10 MG TABLET EXTENDED RELEASE 24 HOUR 1 TABLET ORALLY ONCE A DAY TAKING OMEPRAZOLE 40 MG CAPSULE DELAYED RELEASE 1 CAPSULE ORALLY 2 TIMES DAILY TAKING VITAMIN B12 500 TABLET 500 MCG-2 TABS ORALLY DAILY TAKING MULTIVITAMIN 1 TABLET CHEWABLE 2 TABS ORALLY DAILY TAKING CALCIUM CITRATE + 630 MG TABLET 2 TABLET WITH MEALS ORALLY TWICE A DAY TAKING LASIX 40 MG TABLET ORALLY DAILY TAKING METFORMIN HCL 1000 MG TABLET 1 TABLET WITH MEALS ORALLY TWICE A DAY TAKING AMITRIPTYLINE HCL 75 MG TABLET 1 TABLET ORALLY ONCE A DAY TAKING NYSTATIN [id number] UNIT/GM POWDER APPLY TO AFFECTED AREA S UNDER BREAST AND GROIN TWO TIMES A DAY EXTERNAL TAKING LYRICA 200 MG CAPSULE 1 CAPSULE ORALLY Q8H TID MDD3 TAKING GABAPENTIN 800 MG TABLET 1 CAPSULE ORALLY FOR PAIN TID TAKING ROBAXIN-750 750 MG TABLET 1 TABLET ORALLY Q8H PRN TAKING SOMA 350 MG TABLET 1 TABLET NEEDED ORALLY Q8H NEEDEDFOR LEFT HIP PAIN MDD3, NOTES: 5 DAY SUPPLY ONLY NOT-TAKING SPIRONOLACTONE 50 MG TABLET 1 TABLET ORALLY ONCE A DAY NOT-TAKING FERROUS SULFATE 325 (65 FE) MG TABLET 1 TABLET ORALLY ONCE A DAY, NOTES: SEE ABOVE NOT-TAKING KETOROLAC TROMETHAMINE 10 MG TABLET 1 TABLET WITH FOOD OR MILK NEEDED ORALLY EVERY 6 HRS NOT-TAKING KETOROLAC TROMETHAMINE 10 MG TABLET 1 TABLET WITH FOOD OR MILK NEEDED ORALLY EVERY 6 HRS NOT-TAKING BUPRENORPHINE HCL 300 MCG FILM 1 FILM TO THE GUM BUCALLY EVERY 12 HRS, NOTES: HAS NOT STARTED YET NOT-TAKING CLONIDINE HCL 0.1 MG TABLET 1 TABLET ORALLY Q8H PRN NOT-TAKING WELLBUTRIN 100 MG TABLET 1 TABLET ORALLY TWICE A DAY NOT-TAKING MORPHINE SULFATE ER 15 MG TABLET EXTENDED RELEASE 1 TABLET ORALLY EVERY 12 HRS MDD2 NOT-TAKING OXYCODONE HCL 5 MG TABLET 1 TABLET NEEDED ORALLY Q8H PRN MDD3 #50 TAB SHOULD LAST 30 DAYS NOT-TAKING ABILIFY 5 MG TABLET 1 TABLET ORALLY ONCE A DAY NOT-TAKING CYCLOBENZAPRINE HCL 10 MG TABLET DIRECTED ORALLY Q8H PRN PAIN #30 TAB SHOULD LAST 30 DAYS MEDICATION LIST REVIEWED AND RECONCILED WITH THE PATIENT PAST MEDICAL HISTORY DIABETES HYPERTENSION HYPERCHOLESTEREMIA OBESITY GERD (GASTROESOPHAGEAL REFLUX DISEASE) GASTRIC BYPASS ANXIETY BACK PAIN RIGHT HIP AND KNEE PAIN ALLERGIES SULFA (FOR ALLERGY USE ONLY): RASH - ALLERGY NSAIDS: GASTRIC BYPASS - CONTRAINDICATION SOCIAL HISTORY GENERAL: TOBACCO USE ARE YOU A:CURRENT SMOKER ARE YOU INTERESTED IN QUITTING?NOT READY TO QUIT COUNSELED THE PATIENT ON SMOKING EFFECTS, EDUCATION [id number]/25/2021 HOW MANY CIGARETTES A DAY DO YOU SMOKE?11-20 HOW SOON AFTER YOU WAKE UP DO YOU SMOKE YOUR FIRST CIGARETTE?WITHIN 5 MIN HOW OFTEN DO YOU SMOKE CIGARETTES?EVERY DAY PATIENT COUNSELED ON THE DANGERS OF TOBACCO USE AND URGED TO QUIT:03/05/2020 SMOKING CESSATION INFORMATION GIVEN03/05/2020 PAMPHLET GIVEN 08/16/18 LATEX QUESTIONNAIRE LATEX ALLERGY : HAVE YOU EVER DEVELOPED ANY TYPE OF REACTION AFTER HANDLING LATEX PRODUCTS SUCH RUBBER GLOVES, CONDOMS, DIAPHRAGMS, BALLOONS, SOCKS, OR UNDERWEAR?NO LATEX ALLERGY : HAVE YOU EVER DEVELOPED ANY TYPE OF REACTION DURING OR AFTER DENTAL APPOINTMENT, VAGINAL/RECTAL EXAMINATION, SURGICAL PROCEDURE, OR ANY OTHER EXPOSURE?NO LATEX RISK : HAVE YOU EVER HAD ANY DIFFICULTY BREATHING OR HIVES AFTER EATING OR HANDLING ANY FRUITS, OR VEGETABLES; SUCH KIWI, BANANAS, STONE FRUITS, OR CHESTNUTSNO LATEX RISK : DO YOU HAVE A PREVIOUS PERSONAL HISTORY OF MORE THAN NINE SURGERIES, SPINA BIFIDA, OR REPEATED CATHERIZATIONS? NO LATEX RISK : ARE YOU FREQUENTLY EXPOSED TO LATEX PRODUCTS IN YOUR OCCUPATION?NO DATE ASKED : 07/11/2020 ALCOHOL USE: NO. ALCOHOL SCREENING DID YOU HAVE A DRINK CONTAINING ALCOHOL IN THE PAST YEAR?NO POINTS0 INTERPRETATIONNEGATIVE RECREATIONAL DRUG USE DRUG USE?NO CAFFEINE CAFFEINE USE?YES HOW OFTEN AND HOW MUCH? 2 BOTTLES [place]/DAY QUAKER [id number] NONE LANGUAGE LANGUAGES SPOKEN:[place] EDUCATION LEVEL OF EDUCATION:NOT FINISHED COLLEGE LEARNING BARRIERS / SPECIAL NEEDS CHANGE FROM LAST VISIT?NO BARRIERS TO LEARNING?NO HEARING IMPAIRED?YES RIGHT EAR HEARING AID VISION IMPAIRED?YES WEARS GLASSES :CORRECTIVE LENSES COGNITIVELY IMPAIRED?NO READINESS TO LEARN?YES LEARNING PREFERENCES?NO LEARNING CAPABILITIES PRESENT?YES EMOTIONAL BARRIERS?NO SPECIAL DEVICES?YES :WALKER BOILER RIVETER NEEDED?NO DOMESTIC VIOLENCE DO YOU FEEL SAFE IN YOUR ENVIRONMENT?YES OCCUPATION: DISABLED. DIET: REGULAR. EXERCISE: WALKS. MARITAL STATUS: SINGLE. OTHERS AT HOME: CHILD, OTHER NON-RELATIVE. - PFS REFERRAL NEEDED?NO CLERGY REFERRAL NEEDED?NO PUBLIC HEALTH REFERRAL NEEDED?NO WAS THE PROVIDER NOTIFIED OF ANY PERTINENT INFO? N/A HAS THE PATIENT BEEN EDUCATED REGARDING HIS/HER PLAN OF CARE?YES HAS THE PATIENT BEEN EDUCATED REGARDING PAIN, THE RISK FOR PAIN, THE IMPORTANCE OF EFFECTIVE PAIN MANAGEMENT, AND THE PAIN ASSESSMENT PROCESS?YES ADVANCE DIRECTIVE ADVANCE DIRECTIVE DISCUSSED WITH PATIENT:YES HCP - ARNULFO TAVERAS [phone] AND [place] JENSEN REVIEW OF SYSTEMS CONSTITUTIONAL: ANY RECENT FEVER NO . CHILLS NO . WEIGHT CHANGE OF UNKNOWN REASONS NO . GASTROENTEROLOGY: NEW UNEXPLAINABLE CHANGES IN BOWEL CONTROL NO . CONSTIPATION NO . GENITOURINARY: ANY NEW CHANGE IN BLADDER CONTROL? NO . NEUROLOGY: NEW ONSET DIZZINESS OR NEUROLOGICAL CHANGES NOT MENTIONED NO . NEW NUMBNESS OR PAIN PATTERNS NOT MENTIONED AND PERTINENT TO TODAY'S VISIT NO . CARDIOLOGY: NEW CHEST PRESSURE NO . PATIENT DENIES NO . RESPIRATORY: UNEXPLAINABLE COUGH NO . NEW SHORTNESS OF BREATH NO . VITAL SIGNS WT 203 LBS, HT 60.5 IN, BMI 38.99 INDEX, BP 130/76 MM HG, HR 89 /MIN, RR 20 /MIN, TEMP 96.5 F, OXYGEN SAT % 99%, SAFE IN ENV? (Y/N) YEST.CARINA ZULUAGA. EXAMINATION GENERAL EXAMINATION: GENERAL AWAKE,ALERT ,PLEASANT . PSYCH AFFECT NORMAL . LUNGS: LUNG ARORA ARE CLEAR TO AUSCULTATION BILATERALLY. GOOD MOVEMENT OF AIR . HEART: S1, S2 IN A REGULAR RATE AND RHYTHM. NO SIGNIFICANT MURMURS, RUBS OR GALLOPS NOTED . MUSCULOSKELETAL:MARKED WEAKNESS NOTED BILATERAL LOWER EXTREMITIES LEFT GREATER THAN RIGHT . EXTREMITIES:TENDERNESS OVER LEFT GROIN AREA THAT RADIATES INTO LEFT HIP . 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 IT IS NOT A COPY OF THE [employer] PROGRESS NOTE. JUSTUS
== END ==
LOC: M PAIN 10:45
PROVIDERS: ATTEND Nurse Practitioner Family
DX: M70.62 Trochanteric bursitis, left hip (principal); M47.816 Spondylosis without myelopathy or radiculopathy, lumbar region; E11.9 Type 2 diabetes mellitus without complications; I10 Essential (primary) hypertension; E78.00 Pure hypercholesterolemia, unspecified; E66.9 Obesity, unspecified; K21.9 Gastro-esophageal reflux disease without esophagitis; F41.9 Anxiety disorder, unspecified; Z98.84 Bariatric surgery status; F17.210 Nicotine dependence, cigarettes, uncomplicated; Z68.38 Body mass index [BMI] 38.0-38.9, adult; Z79.84 Long term (current) use of oral hypoglycemic drugs; Z79.899 Other long term (current) drug therapy; Z88.2 Allergy status to sulfonamides; Z88.6 Allergy status to analgesic agent

== ENCOUNTER → 2020-07-12 | Outpatient (CLI) | payer OTHER | LOC: M LABSMTC 12:40 | PROVIDERS: ATTEND Anesthesiology | DX: Z01.812 Encounter for preprocedural laboratory examination (principal); Z20.822 Contact with and (suspected) exposure to COVID-19 ==

== ENCOUNTER → 2020-07-22 | Outpatient (REF) | payer OTHER ==
[2020-07-22 16:32] LABS: BASO # 0.1 10^3/uL (0.0-0.2); BASO % 0.5 % (0.0-1.0); EOS # 0.9 10^3/uL (0.0-0.5); EOS % 6.7 % (0.0-3.0); HEMATOCRIT 43.8 % (36.0-47.0); HEMOGLOBIN 14.1 g/dl (12.0-15.5); LYMPH # 5.1 10^3/uL (1.5-5.0); LYMPH % 37.6 % (24.0-44.0); MEAN CORPUSCULAR HGB CONC 32.2 g/dl (32.0-36.5); MEAN CORPUSCULAR VOLUME 96.3 fl (80.0-96.0); MONO # 0.9 10^3/uL (0.0-0.8); MONO % 6.4 % (2.0-8.0); NEUTROPHILS # 6.6 10^3/uL (1.5-8.5); NEUTROPHILS % 48.4 % (36.0-66.0); PLATELET COUNT, AUTOMATED 328 10^3/uL (150-450); RED BLOOD COUNT 4.55 10^6/uL (4.00-5.40)
[2020-07-22 16:33] LABS: WHITE BLOOD COUNT 13.7 10^3/uL (4.0-10.0)
[2020-07-22 17:12] LABS: BLOOD UREA NITROGEN 18 MG/DL (7-18); CALCIUM LEVEL 9.6 MG/DL (8.5-10.1); CARBON DIOXIDE LEVEL 27 MEQ/L (21-32); CHLORIDE LEVEL 108 MEQ/L (98-107); CREATININE FOR GFR 0.89 MG/DL (0.55-1.30); GLOMERULAR FILTRATION RATE > 60.0 (>58); GLUCOSE, FASTING 138 MG/DL (70-100); POTASSIUM SERUM 4.1 MEQ/L (3.5-5.1); SODIUM LEVEL 142 MEQ/L (136-145)
[2020-07-22 18:19] LABS: HEMOGLOBIN A1c 6.2 %
== END ==
LOC: M LABDRAWC 15:59
PROVIDERS: ATTEND Physician Assistant
DX: E11.9 Type 2 diabetes mellitus without complications (principal); D72.9 Disorder of white blood cells, unspecified

== ENCOUNTER 2020-07-29 12:00 | Outpatient (RCR) | payer OTHER ==
[2020-07-31] MEDS ORDERED: METH-1165 PO (14:31)
== END 2020-08-16 ==
LOC: M PT 12:00
PROVIDERS: ATTEND Family Medicine
DX: I89.0 Lymphedema, not elsewhere classified (principal)

== ENCOUNTER → 2020-08-31 | Outpatient (CLI) | payer OTHER ==
[~2020-08-31] MED LIST changes: +GABA-283 PO; -GABA-845 PO; +METH-1165 PO
--- NOTE | 2020-08-31 09:43 | REP ---
INDICATION: LUMBAGO WITH SCIATICA, LEFT SIDE. COMPARISON: Chest 03/29/2020. TECHNIQUE: AP and lateral views thoracic spine. FINDINGS: There is no acute compression fracture. The vertebral bodies are normal in height and well aligned with normal thoracic kyphosis. There is a mild diffuse spurring. There is mild disc space narrowing and subchondral sclerosis at virtually all levels. Posterior elements are intact. IMPRESSION: Mild diffuse degenerative changes. <Electronically signed by Scott Pagan > 08/31/20 0939
--- NOTE | 2020-08-31 09:43 | REP ---
INDICATION: LUMBAGO WITH SCIATICA, LEFT SIDE. COMPARISON: 06/23/2017. TECHNIQUE: Two views lumbosacral spine. FINDINGS: There is no compression fracture. There is minimal anterolisthesis of L4 on L5 likely due to posterior facet arthropathy. There is mild to moderate diffuse spurring. There is moderate disc space narrowing and subchondral sclerosis at all levels except for mild disc space narrowing at L5-S1. There is sclerosis and spurring at the posterior facet joints diffusely. The posterior elements are intact. IMPRESSION: Moderate diffuse degenerative changes. <Electronically signed by Scott Pagan > 08/31/20 0939
--- NOTE | 2020-08-31 09:45 | REP ---
INDICATION: LUMBAGO WITH SCIATICA, LEFT SIDE. COMPARISON: None. TECHNIQUE: Three AP and lateral views the cervical spine. FINDINGS: There is no compression fracture. There is straightening of the normal cervical lordosis. There is no prevertebral soft tissue swelling. There is mild spurring of C4. There is moderate spurring of C5 through C7. There is moderate disc space narrowing and subchondral sclerosis at C4-5, C5-6 and C6-7. There is diffuse sclerosis at the posterior facet joints. IMPRESSION: Degenerative changes with straightening of the normal lordosis. <Electronically signed by Scott Pagan > 08/31/20 0933
== END ==
LOC: M RAD 09:08
PROVIDERS: ATTEND Chiropractor
DX: M54.42 Lumbago with sciatica, left side (principal); M99.03 Segmental and somatic dysfunction of lumbar region; M54.13 Radiculopathy, cervicothoracic region; M99.01 Segmental and somatic dysfunction of cervical region; M51.36 Other intervertebral disc degeneration, lumbar region; M51.37 Other intervertebral disc degeneration, lumbosacral region

== ENCOUNTER → 2020-10-11 | Outpatient (CLI) | payer OTHER ==
[~2020-10-11] MED LIST changes: -DOXY100C37 PO; +DOXY1CAP62 PO; +OMEP40CA4; +OMEP40CA4 PO; -OMEP40CA97; -OMEP40CA97 PO
== END ==
LOC: M LABSMTC 13:38
PROVIDERS: ATTEND Anesthesiology
DX: Z01.812 Encounter for preprocedural laboratory examination (principal); Z20.822 Contact with and (suspected) exposure to COVID-19

== ENCOUNTER → 2020-10-16 | Outpatient (CLI) | payer OTHER ==
[~2020-10-16] MED LIST changes: +ISOVUE-M 300 61% 15ML VIAL As Ordered ONE; +LIDOCAINE 1% SDV 30ML VIAL As Ordered ONE; +diazePAM 5MG TABLET As Ordered ONE; +diphenhydrAMINE 25MG CAP As Ordered ONE; +methylPREDNISolone SUSP 40MG/ML 1ML VIAL (DEPO MEDROL) As Ordered ONE; +oxyCODONE 5MG TAB As Ordered ONE
--- NOTE | 2020-10-16 13:52 | REP ---
INDICATION: LUMBAR EPIDURAL STEROID INJECTION. COMPARISON: None. TECHNIQUE: Two views. 14.6 seconds of fluoroscopy time is reported. FINDINGS: A sequence of 2 last image hold fluoroscopically obtained spot radiograph(s) of the lumbar spine document(s) needle position(s) and contrast injection associated with injection procedure. IMPRESSION: Procedural imaging. <Electronically signed by Caden Bui > 10/16/20 [id number]
--- NOTE | 2020-10-17 02:14 | ECWPNPC ---
PATIENT NAME: STELLA TAVERAS : 1975 GENDER: FEMALE VISIT DATE: 10/16/2020 DISCHARGE DATE: 10/16/20 1418 VISIT LOCKED DATE TIME: PHYSICIAN: AMELIA LAI MD RESOURCE: AMELIA LAI MD REASON FOR APPOINTMENT 1. LUMBAR EPIDURAL STEROID INJECTION HISTORY OF PRESENT ILLNESS GENERAL: -. FALL RISK SCREENING: SCREENING : 1 FALL REPORTED IN THE LAST YEAR - DISCUSSED PREVIOUSLY. PAIN SCREENING: PATIENT HAS A COMPLAINT OF ACUTE OR CHRONIC PAIN :YES LOCATION OF PAIN:LOW BACK, LEFT HIP, RIGHT HIP, LEG(S) INTENSITY OF PAIN (SCALE OF 1 TO 10):8 WHAT DOES YOUR PAIN FEEL LIKE:ACHING, CONTINOUS, SHARP, SHOOTING DURATION:CONTINOUS, CONSTANT, ALL DAY PAIN IS INCREASED BY:ACTIVITIES, PROLONGED STANDING, OTHERS PROLONGED WALKING PAIN IS DECREASED BY:USE OF PAIN MEDICATIONS, OTHERS MUSCLE RELAXER, REST, HEAT NURSING NOTE: -. 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 :YES 11 YEARS AGO IN [place] DO YOU TAKE A BLOOD THINNERS? :NO DO YOU HAVE ANY BLEEDING DISORDERS? :NO ANY NEW NUMBNESS OR WEAKNESS IN YOUR LEGS OR ARMS? :YES NUMBNESS TO BOTH LEGS, ESPECIALLY WHEN WALKING A LOT ANY PACEMAKER,DEFIBRILLATOR, OR DORSAL COLUMN STIMULATOR? :NO DO YOU HAVE ANY RASHES OR OPEN SORES? :NO ARE YOU ALLERGIC TO IV DYE? :NO ARE YOU DIABETIC? :YES FSBS:138 ANY NEW PROBLEMS WITH YOUR MEDICATIONS? :NO HAVE YOU RECEIVED A VACCINE IN THE PAST 30 DAYS? :NO DO YOU PLAN TO RECEIVE A VACCINE IN THE NEXT 21 DAYS? :NO DO YOU TAKE ANY IMMUNOSUPPRESSIVE MEDICATIONS? :NO ANY HISTORY OF SEIZURES? :NO ANY HISTORY OF CARDIAC ISSUES OR EVENTS? :NO DO YOU HAVE ANY KIDNEY OR LIVER DISEASE? :NO DO YOU HAVE SLEEP APNEA? :YES DO YOU WEAR A CPAP?YES ANY RECENT HEAD INJURY? :NO DO YOU HAVE ANY NEW INFECTIONS? :NO IS THERE A CHANCE YOU COULD BE ? :NO ARE YOU BREAST FEEDING? :NO WHEN DID YOU LAST EAT? : 10/15/2020 2200 WHEN DID YOU LAST DRINK? : 10/15/2020 1000 WHAT DID YOU LAST DRINK? : WATER NAME OF PERSON DRIVING YOU HOME? : PETER DO YOU HAVE ANY OTHER QUESTIONS OR CONCERNS? : NO CURRENT MEDICATIONS TAKING IRON 325 MGS 1 TAB ORAL DAILY TAKING CYMBALTA 60 MG CAPSULE DELAYED RELEASE PARTICLES 2 CAPSULES ORALLY ONCE A DAY TAKING VITAMIN D 1000 UNIT CAPSULE CAPSULE ORALLY ONCE A DAY TAKING FLONASE 50 MCG/ACT SUSPENSION 1 SPRAY IN EACH NOSTRIL NASALLY ONCE A DAY NEEDED TAKING SUMATRIPTAN SUCCINATE 100 MG TABLET 1 TABLET NEEDED ORALLY DIRECTED TAKING COLACE 100 MG CAPSULE 1 CAPSULE NEEDED ORALLY 3X/DAY TAKING SPIRONOLACTONE 25 MG TABLET 1 TABLET ORALLY DAILY, NOTES: ON HOLD CURRENTLY TAKING MISOPROSTOL 200 MCG TABLET 2 TABLET WITH MEALS AND AT BEDTIME ORALLY FOUR TIMES A DAY TAKING FAMOTIDINE 20 MG TABLET DISINTEGRATING DIRECTED ORALLY BID TAKING PRAMIPEXOLE DIHYDROCHLORIDE 0.25 MG TABLET 1 TABLET ORALLY BID TAKING SUCRALFATE 1 GM TABLET 1 TABLET ON AN EMPTY STOMACH ORALLY FOUR TIMES DAILY TAKING CETIRIZINE HCL 10 MG TABLET ORALLY ONCE A DAY TAKING LOSARTAN POTASSIUM 25 MG TABLET ORALLY DAILY, NOTES: ON HOLD CURRENTLY TAKING MONTELUKAST SODIUM 10 MG TABLET 1 TABLET ORALLY ONCE A DAY TAKING OMEPRAZOLE 40 MG CAPSULE DELAYED RELEASE 1 CAPSULE ORALLY 2 TIMES DAILY TAKING VITAMIN B12 500 TABLET 500 MCG-2 TABS ORALLY DAILY TAKING MULTIVITAMIN 1 TABLET CHEWABLE 2 TABS ORALLY DAILY TAKING CALCIUM CITRATE + 630 MG TABLET 2 TABLET WITH MEALS ORALLY TWICE A DAY TAKING LASIX 40 MG TABLET ORALLY DAILY, NOTES: ON HOLD CURRENTLY TAKING METFORMIN HCL 1000 MG TABLET 1 TABLET WITH MEALS ORALLY TWICE A DAY, NOTES: 10/15/2020 2200 TAKING ALBUTEROL SULFATE HFA 108 (90 BASE) MCG/ACT AEROSOL SOLUTION 1 PUFF NEEDED INHALATION EVERY 4 HRS TAKING OXYBUTYNIN CHLORIDE ER 10 MG TABLET EXTENDED RELEASE 24 HOUR 1 TABLET ORALLY ONCE A DAY TAKING BUSPIRONE HCL 15 MG TABLET 1 TABLET ORALLY TWICE A DAY TAKING AMITRIPTYLINE HCL 75 MG TABLET 1 TABLET ORALLY ONCE A DAY, NOTES: 10/15/2020 PM TAKING GABAPENTIN 800 MG TABLET 1 CAPSULE ORALLY FOR PAIN TID, NOTES: 10/16/2020 0630 TAKING ROBAXIN-750 750 MG TABLET 1 TABLET ORALLY Q8H PRN, NOTES: 10/13/2020 TAKING LYRICA 200 MG CAPSULE 1 CAPSULE ORALLY Q8H TID MDD3 NOT-TAKING DITROPAN XL 10 MG TABLET EXTENDED RELEASE 24 HOUR 1 TABLET ORALLY ONCE A DAY NOT-TAKING NYSTATIN [id number] UNIT/GM POWDER APPLY TO AFFECTED AREA S UNDER BREAST AND GROIN TWO TIMES A DAY EXTERNAL NOT-TAKING SOMA 350 MG TABLET 1/2 TO 1 TAB BID ORALLY BID MDD2, NOTES: 5 DAY SUPPLY ONLY NOT-TAKING CIPRO 500 MG TABLET 1 TABLET ORALLY EVERY 8 HRS FOR 10 DAYS NOT-TAKING SPIRONOLACTONE 50 MG TABLET 1 TABLET ORALLY ONCE A DAY NOT-TAKING FERROUS SULFATE 325 (65 FE) MG TABLET 1 TABLET ORALLY ONCE A DAY, NOTES: SEE ABOVE NOT-TAKING KETOROLAC TROMETHAMINE 10 MG TABLET 1 TABLET WITH FOOD OR MILK NEEDED ORALLY EVERY 6 HRS NOT-TAKING KETOROLAC TROMETHAMINE 10 MG TABLET 1 TABLET WITH FOOD OR MILK NEEDED ORALLY EVERY 6 HRS NOT-TAKING BUPRENORPHINE HCL 300 MCG FILM 1 FILM TO THE GUM BUCALLY EVERY 12 HRS, NOTES: HAS NOT STARTED YET NOT-TAKING CLONIDINE HCL 0.1 MG TABLET 1 TABLET ORALLY Q8H PRN NOT-TAKING WELLBUTRIN 100 MG TABLET 1 TABLET ORALLY TWICE A DAY NOT-TAKING MORPHINE SULFATE ER 15 MG TABLET EXTENDED RELEASE 1 TABLET ORALLY EVERY 12 HRS MDD2 NOT-TAKING OXYCODONE HCL 5 MG TABLET 1 TABLET NEEDED ORALLY Q8H PRN MDD3 #50 TAB SHOULD LAST 30 DAYS NOT-TAKING ABILIFY 5 MG TABLET 1 TABLET ORALLY ONCE A DAY NOT-TAKING CYCLOBENZAPRINE HCL 10 MG TABLET DIRECTED ORALLY Q8H PRN PAIN #30 TAB SHOULD LAST 30 DAYS MEDICATION LIST REVIEWED AND RECONCILED WITH THE PATIENT PAST MEDICAL HISTORY DIABETES HYPERTENSION HYPERCHOLESTEREMIA OBESITY GERD (GASTROESOPHAGEAL REFLUX DISEASE) GASTRIC BYPASS ANXIETY BACK PAIN RIGHT HIP AND KNEE PAIN ALLERGIES SULFA (FOR ALLERGY USE ONLY): RASH - ALLERGY NSAIDS: GASTRIC BYPASS - CONTRAINDICATION SURGICAL HISTORY GASTRIC BYPASS 06/2015 BILAT CARPAL TUNNEL C SECTION CHOLECYSTECTOMY TONSILLECTOMY & ADENOIDECTOMY D&C 10/2017 ENDOSCOPY 11/2018 APPENDECTOMY 09/20/20 SOCIAL HISTORY GENERAL: TOBACCO USE ARE YOU A:CURRENT SMOKER ARE YOU INTERESTED IN QUITTING?NOT READY TO QUIT COUNSELED THE PATIENT ON SMOKING EFFECTS, EDUCATION [id number]/25/2021 HOW MANY CIGARETTES A DAY DO YOU SMOKE?11-20 HOW SOON AFTER YOU WAKE UP DO YOU SMOKE YOUR FIRST CIGARETTE?WITHIN 5 MIN HOW OFTEN DO YOU SMOKE CIGARETTES?EVERY DAY PATIENT COUNSELED ON THE DANGERS OF TOBACCO USE AND URGED TO QUIT:03/05/2020 SMOKING CESSATION INFORMATION GIVEN03/05/2020 PAMPHLET GIVEN 08/16/18 LATEX QUESTIONNAIRE LATEX ALLERGY : HAVE YOU EVER DEVELOPED ANY TYPE OF REACTION AFTER HANDLING LATEX PRODUCTS SUCH RUBBER GLOVES, CONDOMS, DIAPHRAGMS, BALLOONS, SOCKS, OR UNDERWEAR?NO LATEX ALLERGY : HAVE YOU EVER DEVELOPED ANY TYPE OF REACTION DURING OR AFTER DENTAL APPOINTMENT, VAGINAL/RECTAL EXAMINATION, SURGICAL PROCEDURE, OR ANY OTHER EXPOSURE?NO LATEX RISK : HAVE YOU EVER HAD ANY DIFFICULTY BREATHING OR HIVES AFTER EATING OR HANDLING ANY FRUITS, OR VEGETABLES; SUCH KIWI, BANANAS, STONE FRUITS, OR CHESTNUTSNO LATEX RISK : DO YOU HAVE A PREVIOUS PERSONAL HISTORY OF MORE THAN NINE SURGERIES, SPINA BIFIDA, OR REPEATED CATHERIZATIONS? NO LATEX RISK : ARE YOU FREQUENTLY EXPOSED TO LATEX PRODUCTS IN YOUR OCCUPATION?NO DATE ASKED : 10/11/2020 ALCOHOL USE: NO. ALCOHOL SCREENING DID YOU HAVE A DRINK CONTAINING ALCOHOL IN THE PAST YEAR?NO POINTS0 INTERPRETATIONNEGATIVE RECREATIONAL DRUG USE DRUG USE?NO CAFFEINE CAFFEINE USE?YES HOW OFTEN AND HOW MUCH? 2 BOTTLES [place]/DAY [facility] [id number] NONE NO ALEVISM BELIEFS THAT WOULD IMPACT HEALTH CARE. LANGUAGE LANGUAGES SPOKEN:SETSWANA EDUCATION LEVEL OF EDUCATION:NOT FINISHED COLLEGE LEARNING BARRIERS / SPECIAL NEEDS CHANGE FROM LAST VISIT?NO BARRIERS TO LEARNING?NO HEARING IMPAIRED?YES RIGHT EAR HEARING AID VISION IMPAIRED?YES WEARS GLASSES :CORRECTIVE LENSES COGNITIVELY IMPAIRED?NO READINESS TO LEARN?YES LEARNING PREFERENCES?NO LEARNING CAPABILITIES PRESENT?YES EMOTIONAL BARRIERS?NO SPECIAL DEVICES?YES :WALKER COUTURE DRESSMAKER NEEDED?NO DOMESTIC VIOLENCE DO YOU FEEL SAFE IN YOUR ENVIRONMENT?YES OCCUPATION: DISABLED. DIET: REGULAR. EXERCISE: WALKS. MARITAL STATUS: SINGLE. OTHERS AT HOME: CHILD, OTHER NON-RELATIVE. - PFS REFERRAL NEEDED?NO CLERGY REFERRAL NEEDED?NO PUBLIC HEALTH REFERRAL NEEDED?NO WAS THE PROVIDER NOTIFIED OF ANY PERTINENT INFO? N/A HAS THE PATIENT BEEN EDUCATED REGARDING HIS/HER PLAN OF CARE?YES HAS THE PATIENT BEEN EDUCATED REGARDING PAIN, THE RISK FOR PAIN, THE IMPORTANCE OF EFFECTIVE PAIN MANAGEMENT, AND THE PAIN ASSESSMENT PROCESS?YES ADVANCE DIRECTIVE ADVANCE DIRECTIVE DISCUSSED WITH PATIENT:YES HCP - ARNULFO TAVERAS [phone] [facility]JOR DIAGNOSTIC PROCEDURE SURGERIES "FLUID ON LEGS" DEC OR 2018 KIDNEY INFECTION 05/18/2019 SURGERY 09/20/20 VITAL SIGNS WT 292 LBS, HT 61 IN, BMI 55.17 INDEX, BP 143/76 MM HG, HR 97 /MIN, RR 20 /MIN, TEMP 98.1 F, OXYGEN SAT % 99%, BLOOD GLUCOSE LEVEL 138, SAFE IN ENV? (Y/N) YES, NA INITIALS JH, REVIEWED BY: Talia BLACKWOOD RN. EXAMINATION GENERAL: THE PATIENT IS ALERT, ORIENTED TIMES THREE AND COOPERATIVE. LUNGS ARE CLEAR TO AUSCULTATION. HEART SHOWS REGULAR RHYTHM, NO MURMURS AND NO GALLOPS. ASSESSMENTS INTERVERTEBRAL DISC DISORDERS WITH RADICULOPATHY, LUMBAR REGION - M51.16 (PRIMARY) TREATMENT INTERVERTEBRAL DISC DISORDERS WITH RADICULOPATHY, LUMBAR REGION [facility] FLUORO GUIDE SPINE INJECTION (PAIN)[id number] MEDICATION: VALIUM TAB 5MG ORALLY (DIAZEPAM)VINCE RODRÍGUEZ 10/16/2020 12:28:48 PM > VERIFIED TIFFANY MONROY 10/16/2020 12:33:15 PM > ADMINISTERED OXYGEN AT 2 LITERS PER NASAL CANNULABITA POLLOCK 10/16/2020 2:01:51 PM > PLACED ON THE PATIENT AT THE START OF THE PROCEDURE PT WAS SOB PT ALSO HAS A PRODUCTIVE COUGH MEDICATION: OXYCODONE HCL TAB 10MG [facility]ALLY[facility]URMAN,[facility] 10/16/2020 12:29:08 PM > VERIFIED TIFFANY MONROY 10/16/2020 12:34:43 PM > ADMISTERED COMPLETION OF PROCEDURAL VISIT WHEN MEETS CRITERIACLINTONCHARLOTTEBITA 10/16/2020 1:54:03 PM > CRITERIA MET MED: PAIN BENADRYL TAB 25MG ORALLY DIPHENHYDRAMINERMAN,[facility] 10/16/2020 12:29:23 PM > VERIFIED TIFFANY MONROY 10/16/2020 12:33:37 PM > ADMINISTERED OTHERS NOTES: 10/11/20 1240 PAT COMPLETED. Josue PEDERSON RN. PROCEDURES PAIN NURSING RECORD PROCEDURE IN ROOM 1315, PHYSICIAN IN ROOM 1325, START 1327, FINISH 1333, PHYSICIAN OUT OF ROOM 1335, OUT OF ROOM 1345, ECG NORMAL SINUS, PATIENT SHIELDED YES, SAFETY STRAP YES, PREP BETADINE Sherice POLLOCK RN, DRESSING TEGADERM DR. LAI LOC: 1. ALERT, ORIENTED MARISBITA 10/16/2020 1:26:32 PM > RESP: 1. REGULAR, NO DYSPNEA MARISBITA 10/16/2020 1:26:37 PM > COLOR: 1. PINK BITA POLLOCK 10/16/2020 1:26:43 PM > SKIN: 1. WARM, DRY BITA POLLOCK 10/16/2020 1:26:48 PM > POSITION: 1. PRONE BITA POLLOCK 10/16/2020 1:26:53 PM > VITALS: TIFFANY MONROY 10/16/2020 1250 120/61-86-18-97% IN ROOM 1315 132/56 66 96% ON RA PT VERBALIZES SHE IS SHORT OF BREATH "ALLERGIES" PLACED 2 LITER NC ON FOR FIRST 5 MINUTES IN ROOM UNTIL SETTLED.. THEN REMOVED.99% ON RA 1330 142/54 76 100 ON RA 18 RESPIRATIONS. MARIELLA ACEVEDO POST PREOCEDURE VITALS: 99T, 16R, 96% ON RA, 83, 130/78 MOISES GRAHAM 10/16/2020 1:53:25 PM > COMPLETION OF PROCEDURE APPOINTMENT: POST PAIN 5, DRESSING SITE DRY AND INTACT, IV N/A, GAIT OTHER PT IS USING A WALKERWHICH SHE WAS USING PRIOR TO PROCEDURE, PROCEDURE APPOINTMENT COMPLETED AT 1407 PRE PROCEDURE DIAGNOSIS LUMBAR DISC DISORDER WITH RADICULOPATHY POST PROCEDURE DIAGNOSIS LUMBAR DISC DISORDER WITH RADICULOPATHY PROCEDURE LUMBAR EPIDURAL STEROID INJECTION UNDER FLUOROSCOPIC GUIDANCE SURGEON DR. AMELIA LAI HEADER BOSS NONE ANESTHESIA LOCAL PRE PROCEDURE NOTE THE PATIENT HAS A HISTORY OF CHRONIC LOW BACK PAIN. I EVALUATED THE PATIENT AND REVIEWED THE CHART. I WENT OVER THE RISKS, ALTERNATIVES, AND BENEFITS ASSOCIATED WITH THIS PROCEDURE. THE PATIENT WOULD LIKE TO PROCEED AND GIVE CONSENT TO PERFORMED THE PROCEDURE. THE PATIENT DENIES UNEXPLAINABLE WEIGHT LOSS, FEVER, CHILLS, OR NEW CHANGES IN URINARY OR BOWEL CONTROL. THE PATIENT IS COVID-19 NEGATIVE DESCRIPTION OF PROCEDURE THE PATIENT WAS BROUGHT TO THE PROCEDURE ROOM AND PLACED IN THE PRONE POSITION. THE LUMBOSACRAL AREA WAS CLEANED WITH BETADINE SOLUTION AND DRAPED ASEPTICALLY. THE PROCEDURE WAS DONE UNDER STERILE CONDITIONS. A TIMEOUT WAS PERFORMED WHERE THE CONSENTED SITE WAS VERIFIED WITH EVERYONE IN THE ROOM. UNDER FLUOROSCOPIC GUIDANCE, THE TARGET POINT WAS SELECTED AT THE INTERLAMINAR LEVEL OF L4-L5. I CONFIRMED AGAIN THE SITE OF TARGET. LIDOCAINE WAS USED TO NUMB THE SKIN AND THE SUBCUTANEOUS TISSUE BELOW IT. EPIDURAL TUOHY NEEDLE, 17-GAUGE, WAS ADVANCED UNDER FLUOROSCOPIC GUIDANCE AND FOLLOWING PATIENT FEEDBACK UNTIL THE EPIDURAL SPACE WAS REACHED 12 CM DEEP INTO THE SKIN BY THE LOSS OF RESISTANCE TECHNIQUE. ISOVUE-M DYE 30%, 0.25 ML, WAS INJECTED SHOWING ADEQUATE SPREAD OF THE DYE. THEN, A SOLUTION OF 3 ML OF NORMAL SALINE WITH DEPO-MEDROL 40 MG WAS INJECTED SLOWLY FOLLOWING PATIENT FEEDBACK. THE MEDICATIONS WERE VERIFIED WITH THE NURSE. THERE WAS NO EVIDENCE OF BLOOD, PARESTHESIA OR CEREBROSPINAL FLUID DURING THE PROCEDURE. THE PATIENT WAS SENT TO THE RECOVERY ROOM. THE PATIENT WAS MOVING THE EXTREMITIES AND DOING WELL. THERE WERE NO COMPLICATIONS DURING THE PROCEDURE. ESTIMATED BLOOD LOSS WAS LESS THAN 5 ML. FLUOROSCOPY TIME WAS 14 SECONDS POST PROCEDURE NOTE WHILE INJECTING, THE SPACE WAS VERY TIGHT. THE PATIENT MAY BE A CANDADITE FOR MILD OR VERTIFLEX. THE PATIENT WILL BE SEEN IN A FOLLOW UP IN THE NEXT FEW WEEKS. I AM LOOKING FOR LONG LASTING RELIEF FOR THE PATIENT WITH THIS INTERVENTION. INSTRUCTIONS WERE GIVEN, QUESTIONS WERE ANSWERED, AND THE PATIENT EXPRESSED UNDERSTANDING AND AGREES WITH THE PLAN. I, FANY ESPINAL, DOCUMENTED THE ABOVE INFORMATION ACTING A SCRIBE FOR DR. LAI. I HAVE REVIEWED THE ABOVE DOCUMENT, WRITTEN BY FANY ESPINAL, TAR AND AMMONIA PUMP OPERATOR, AND I VERIFY THAT IT IS ACCURATE PROCEDURE CODES 17196 LUMBAR/SACRAL W/ IMAGING DISPOSITION & COMMUNICATION FOLLOW UP FOLLOW UP WITH 2ND PRESSMAN (REASON: POST LUMBAR EPIDURAL STEROID INJECTION) ELECTRONICALLY SIGNED BY AMELIA LAI MD, MD ON 10/16/2020 AT 04:07 PM EDT DISCLAIMER : THIS IS A VISIT SUMMARY EXTRACTED FROM THE [employer] CHART. IT IS NOT A COPY OF THE [employer] PROGRESS NOTE. JUSTUS
== END ==
LOC: M PAIN 11:20
PROVIDERS: ATTEND Anesthesiology
DX: M51.16 Intervertebral disc disorders with radiculopathy, lumbar region (principal); E11.9 Type 2 diabetes mellitus without complications; G47.30 Sleep apnea, unspecified; K21.9 Gastro-esophageal reflux disease without esophagitis; F17.210 Nicotine dependence, cigarettes, uncomplicated; Z86.14 Personal history of Methicillin resistant Staphylococcus aureus infection; Z86.59 Personal history of other mental and behavioral disorders; Z98.84 Bariatric surgery status; Z88.2 Allergy status to sulfonamides; Z88.6 Allergy status to analgesic agent; E66.01 Morbid (severe) obesity due to excess calories; Z68.43 Body mass index [BMI] 50.0-59.9, adult; Z79.84 Long term (current) use of oral hypoglycemic drugs; Z79.899 Other long term (current) drug therapy
CPT/HCPCS: 62323; J1030; Q9967

== ENCOUNTER → 2020-10-24 | Outpatient (REF) | payer OTHER ==
[~2020-10-24] MED LIST changes: -ISOVUE-M 300 61% 15ML VIAL As Ordered ONE; -LIDOCAINE 1% SDV 30ML VIAL As Ordered ONE; -diazePAM 5MG TABLET As Ordered ONE; -diphenhydrAMINE 25MG CAP As Ordered ONE; -methylPREDNISolone SUSP 40MG/ML 1ML VIAL (DEPO MEDROL) As Ordered ONE; -oxyCODONE 5MG TAB As Ordered ONE
== END ==
LOC: M LAB REF 20:05
PROVIDERS: ATTEND Physician Assistant
DX: L02.412 Cutaneous abscess of left axilla (principal)

== ENCOUNTER → 2020-10-30 | Outpatient (CLI) | payer OTHER ==
--- NOTE | 2020-11-01 05:15 | ECWPNPC ---
PATIENT NAME: STELLA TAVERAS : 1975 GENDER: FEMALE VISIT DATE: 10/30/2020 DISCHARGE DATE: 10/30/20 145 VISIT LOCKED DATE TIME: PHYSICIAN: PATRICIA MCNAMARA RESOURCE: PATRICIA MCNAMARA REASON FOR APPOINTMENT 1. POST LUMBAR EPIDURAL STEROID INJECTION HISTORY OF PRESENT ILLNESS DEPRESSION SCREENING: PHQ-9 LITTLE INTEREST OR PLEASURE IN DOING THINGSMORE THAN HALF THE DAYS FEELING DOWN, DEPRESSED, OR HOPELESSMORE THAN HALF THE DAYS TROUBLE FALLING OR STAYING ASLEEP, OR SLEEPING TOO MUCHSEVERAL DAYS FEELING TIRED OR HAVING LITTLE ENERGYNEARLY EVERY DAY POOR APPETITE OR OVEREATING NOT AT ALL FEELING BAD ABOUT YOURSELF-OR THAT YOU ARE A FAILURE OR HAVE LET YOURSELF OR YOUR FAMILY DOWN SEVERAL DAYS TROUBLE CONCENTRATING ON THINGS, SUCH READING THE NEWSPAPER OR WATCHING TELEVISION SEVERAL DAYS MOVING OR SPEAKING SO SLOWLY THAT OTHER PEOPLE COULD HAVE NOTICED. OR THE OPPOSITE- BEING SO FIDGETY OR RESTLESS THAT YOU HAVE BEEN MOVING AROUND A LOT MORE THAN USUALSEVERAL DAYS THOUGHTS THAT YOU WOULD BE BETTER OFF , OR OF HURTING YOURSELF IN SOME WAY?NOT AT ALL TOTAL SCORE:11 INTERPRETATIONMODERATE DEPRESSION PHQ-2 (2015 EDITION) LITTLE INTEREST OR PLEASURE IN DOING THINGS?MORE THAN HALF THE DAYS FEELING DOWN, DEPRESSED, OR HOPELESS?MORE THAN HALF THE DAYS TOTAL SCORE4 GENERAL: HERE FOR POST PROCEDURE FOLLOW-UP. HAD LUMBAR EPIDURAL STEROID INJECTION ON 10/16/2020. REPORTING NO SIGNIFICANT IMPROVEMENT IN PAIN POSTPROCEDURE. DR. LAI HAD RECOMMENDED EVALUATION FOR VERTIFLEX FOR MILD PROCEDURE. USING SOMA 350 MG PERIODICALLY FOR SEVERE PAIN EPISODES. PATIENT BRINGS HER MEDICATION IN WHICH SHOWS APPROPRIATE USE. SHE LAST FILLED THIS MEDICATION IN JUNE. DISCUSSED TREATMENT PLAN. -. FALL RISK SCREENING: SCREENING ONE FALL IN THE BEGIN OF THE YEAR, PATIENT STATED THAT SHE DID NOT GO THE ER. JUST HAD A CUT ON HER RIGHT LEG. PAIN SCREENING: PATIENT HAS A COMPLAINT OF ACUTE OR CHRONIC PAIN :YES LOCATION OF PAIN:LOW BACK INTENSITY OF PAIN (SCALE OF 1 TO 10):8 WHAT DOES YOUR PAIN FEEL LIKE:ACHING, CONTINOUS, SORE, SHOOTING DURATION:CONTINOUS, CONSTANT, ALL DAY PAIN IS INCREASED BY:ACTIVITIES, PROLONGED STANDING PAIN IS DECREASED BY:USE OF PAIN MEDICATIONS NURSING NOTE: -. 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 :NO DO YOU TAKE A BLOOD THINNERS? :NO DO YOU HAVE ANY BLEEDING DISORDERS? :NO ANY NEW NUMBNESS OR WEAKNESS IN YOUR LEGS OR ARMS? :YES LEFT LEG WEAKNESS, AT NIGHT IN BOTH FEET THERE IS A TINGLY AND NUMBNESS ANY PACEMAKER,DEFIBRILLATOR, OR DORSAL COLUMN STIMULATOR? :NO DO YOU HAVE ANY RASHES OR OPEN SORES? :NO ARE YOU ALLERGIC TO IV DYE? :NO ARE YOU DIABETIC? :YES ANY NEW PROBLEMS WITH YOUR MEDICATIONS? :NO HAVE YOU RECEIVED A VACCINE IN THE PAST 30 DAYS? :NO DO YOU PLAN TO RECEIVE A VACCINE IN THE NEXT 21 DAYS? :NO DO YOU NEED ANY PRESCRIPTION? :YES DO YOU TAKE ANY IMMUNOSUPPRESSIVE MEDICATIONS? :NO DO YOU HAVE ANY KIDNEY OR LIVER DISEASE? :NO IS THERE A CHANCE YOU COULD BE ? :NO ARE YOU BREAST FEEDING? :NO CURRENT MEDICATIONS TAKING IRON 325 MGS 1 TAB ORAL DAILY TAKING CYMBALTA 60 MG CAPSULE DELAYED RELEASE PARTICLES 2 CAPSULES ORALLY ONCE A DAY TAKING VITAMIN D 1000 UNIT CAPSULE CAPSULE ORALLY ONCE A DAY TAKING FLONASE 50 MCG/ACT SUSPENSION 1 SPRAY IN EACH NOSTRIL NASALLY ONCE A DAY NEEDED TAKING SUMATRIPTAN SUCCINATE 100 MG TABLET 1 TABLET NEEDED ORALLY DIRECTED TAKING COLACE 100 MG CAPSULE 1 CAPSULE NEEDED ORALLY 3X/DAY TAKING SPIRONOLACTONE 25 MG TABLET 1 TABLET ORALLY DAILY, NOTES: ON HOLD CURRENTLY TAKING MISOPROSTOL 200 MCG TABLET 2 TABLET WITH MEALS AND AT BEDTIME ORALLY FOUR TIMES A DAY TAKING FAMOTIDINE 20 MG TABLET DISINTEGRATING DIRECTED ORALLY BID TAKING PRAMIPEXOLE DIHYDROCHLORIDE 0.25 MG TABLET 1 TABLET ORALLY BID TAKING SUCRALFATE 1 GM TABLET 1 TABLET ON AN EMPTY STOMACH ORALLY FOUR TIMES DAILY TAKING CETIRIZINE HCL 10 MG TABLET ORALLY ONCE A DAY TAKING LOSARTAN POTASSIUM 25 MG TABLET ORALLY DAILY, NOTES: ON HOLD CURRENTLY TAKING MONTELUKAST SODIUM 10 MG TABLET 1 TABLET ORALLY ONCE A DAY TAKING OMEPRAZOLE 40 MG CAPSULE DELAYED RELEASE 1 CAPSULE ORALLY 2 TIMES DAILY TAKING VITAMIN B12 500 TABLET 500 MCG-2 TABS ORALLY DAILY TAKING MULTIVITAMIN 1 TABLET CHEWABLE 2 TABS ORALLY DAILY TAKING CALCIUM CITRATE + 630 MG TABLET 2 TABLET WITH MEALS ORALLY TWICE A DAY TAKING LASIX 40 MG TABLET ORALLY DAILY, NOTES: ON HOLD CURRENTLY TAKING METFORMIN HCL 1000 MG TABLET 1 TABLET WITH MEALS ORALLY TWICE A DAY TAKING ALBUTEROL SULFATE HFA 108 (90 BASE) MCG/ACT AEROSOL SOLUTION 1 PUFF NEEDED INHALATION EVERY 4 HRS TAKING OXYBUTYNIN CHLORIDE ER 10 MG TABLET EXTENDED RELEASE 24 HOUR 1 TABLET ORALLY ONCE A DAY TAKING BUSPIRONE HCL 15 MG TABLET 1 TABLET ORALLY TWICE A DAY TAKING AMITRIPTYLINE HCL 75 MG TABLET 1 TABLET ORALLY ONCE A DAY TAKING GABAPENTIN 800 MG TABLET 1 CAPSULE ORALLY FOR PAIN TID TAKING ROBAXIN-750 750 MG TABLET 1 TABLET ORALLY Q8H PRN TAKING LYRICA 200 MG CAPSULE 1 CAPSULE ORALLY Q8H TID MDD3 TAKING SOMA 350 MG TABLET 1.5 TABLET NEEDED ORALLY TWO TIMES A DAY PRN NOT-TAKING DITROPAN XL 10 MG TABLET EXTENDED RELEASE 24 HOUR 1 TABLET ORALLY ONCE A DAY NOT-TAKING NYSTATIN [id number] UNIT/GM POWDER APPLY TO AFFECTED AREA S UNDER BREAST AND GROIN TWO TIMES A DAY EXTERNAL NOT-TAKING SOMA 350 MG TABLET 1/2 TO 1 TAB BID ORALLY BID MDD2, NOTES: 5 DAY SUPPLY ONLY NOT-TAKING CIPRO 500 MG TABLET 1 TABLET ORALLY EVERY 8 HRS FOR 10 DAYS NOT-TAKING SPIRONOLACTONE 50 MG TABLET 1 TABLET ORALLY ONCE A DAY NOT-TAKING FERROUS SULFATE 325 (65 FE) MG TABLET 1 TABLET ORALLY ONCE A DAY, NOTES: SEE ABOVE NOT-TAKING KETOROLAC TROMETHAMINE 10 MG TABLET 1 TABLET WITH FOOD OR MILK NEEDED ORALLY EVERY 6 HRS NOT-TAKING KETOROLAC TROMETHAMINE 10 MG TABLET 1 TABLET WITH FOOD OR MILK NEEDED ORALLY EVERY 6 HRS NOT-TAKING BUPRENORPHINE HCL 300 MCG FILM 1 FILM TO THE GUM BUCALLY EVERY 12 HRS, NOTES: HAS NOT STARTED YET NOT-TAKING CLONIDINE HCL 0.1 MG TABLET 1 TABLET ORALLY Q8H PRN NOT-TAKING WELLBUTRIN 100 MG TABLET 1 TABLET ORALLY TWICE A DAY NOT-TAKING MORPHINE SULFATE ER 15 MG TABLET EXTENDED RELEASE 1 TABLET ORALLY EVERY 12 HRS MDD2 NOT-TAKING OXYCODONE HCL 5 MG TABLET 1 TABLET NEEDED ORALLY Q8H PRN MDD3 #50 TAB SHOULD LAST 30 DAYS NOT-TAKING ABILIFY 5 MG TABLET 1 TABLET ORALLY ONCE A DAY NOT-TAKING CYCLOBENZAPRINE HCL 10 MG TABLET DIRECTED ORALLY Q8H PRN PAIN #30 TAB SHOULD LAST 30 DAYS MEDICATION LIST REVIEWED AND RECONCILED WITH THE PATIENT PAST MEDICAL HISTORY DIABETES HYPERTENSION HYPERCHOLESTEREMIA OBESITY GERD (GASTROESOPHAGEAL REFLUX DISEASE) GASTRIC BYPASS ANXIETY BACK PAIN RIGHT HIP AND KNEE PAIN ONE FALL IN THE BEGIN OF THE YEAR, PATIENT STATED THAT SHE DID NOT GO THE ER. JUST HAD A CUT ON HER RIGHT LEG. ALLERGIES SULFA (FOR ALLERGY USE ONLY): RASH - ALLERGY NSAIDS: GASTRIC BYPASS - CONTRAINDICATION SURGICAL HISTORY GASTRIC BYPASS 06/2015 BILAT CARPAL TUNNEL C SECTION CHOLECYSTECTOMY TONSILLECTOMY & ADENOIDECTOMY D&C 10/2017 ENDOSCOPY 11/2018 APPENDECTOMY 09/20/20 SOCIAL HISTORY GENERAL: TOBACCO USE ARE YOU A:CURRENT SMOKER HOW OFTEN DO YOU SMOKE CIGARETTES?EVERY DAY HOW SOON AFTER YOU WAKE UP DO YOU SMOKE YOUR FIRST CIGARETTE?WITHIN 5 MIN HOW MANY CIGARETTES A DAY DO YOU SMOKE?11-20 ARE YOU INTERESTED IN QUITTING?NOT READY TO QUIT PATIENT COUNSELED ON THE DANGERS OF TOBACCO USE AND URGED TO QUIT:03/05/2020 COUNSELED THE PATIENT ON SMOKING EFFECTS, EDUCATION PYSLHTYC77/25/2021 SMOKING CESSATION INFORMATION GIVEN03/05/2020 PAMPHLET GIVEN 08/16/18 LATEX QUESTIONNAIRE LATEX ALLERGY : HAVE YOU EVER DEVELOPED ANY TYPE OF REACTION AFTER HANDLING LATEX PRODUCTS SUCH RUBBER GLOVES, CONDOMS, DIAPHRAGMS, BALLOONS, SOCKS, OR UNDERWEAR?NO LATEX ALLERGY : HAVE YOU EVER DEVELOPED ANY TYPE OF REACTION DURING OR AFTER DENTAL APPOINTMENT, VAGINAL/RECTAL EXAMINATION, SURGICAL PROCEDURE, OR ANY OTHER EXPOSURE?NO DATE ASKED : 10/11/2020 LATEX RISK : HAVE YOU EVER HAD ANY DIFFICULTY BREATHING OR HIVES AFTER EATING OR HANDLING ANY FRUITS, OR VEGETABLES; SUCH KIWI, BANANAS, STONE FRUITS, OR CHESTNUTSNO LATEX RISK : DO YOU HAVE A PREVIOUS PERSONAL HISTORY OF MORE THAN NINE SURGERIES, SPINA BIFIDA, OR REPEATED CATHERIZATIONS? NO LATEX RISK : ARE YOU FREQUENTLY EXPOSED TO LATEX PRODUCTS IN YOUR OCCUPATION?NO ALCOHOL USE: NO. ALCOHOL SCREENING DID YOU HAVE A DRINK CONTAINING ALCOHOL IN THE PAST YEAR?NO POINTS0 INTERPRETATIONNEGATIVE RECREATIONAL DRUG USE DRUG USE?NO CAFFEINE CAFFEINE USE?YES HOW OFTEN AND HOW MUCH? 2 BOTTLES [place]/DAY YAZDANISM [id number] NONE NO JAIN BELIEFS THAT WOULD IMPACT HEALTH CARE. 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 DIET: REGULAR. EXERCISE: WALKS. MARITAL STATUS: SINGLE. OTHERS AT HOME: CHILD, OTHER NON-RELATIVE. - PFS REFERRAL NEEDED?NO CLERGY REFERRAL NEEDED?NO PUBLIC HEALTH REFERRAL NEEDED?NO WAS THE PROVIDER NOTIFIED OF ANY PERTINENT INFO? N/A HAS THE PATIENT BEEN EDUCATED REGARDING HIS/HER PLAN OF CARE?YES HAS THE PATIENT BEEN EDUCATED REGARDING PAIN, THE RISK FOR PAIN, THE IMPORTANCE OF EFFECTIVE PAIN MANAGEMENT, AND THE PAIN ASSESSMENT PROCESS?YES ADVANCE DIRECTIVE ADVANCE DIRECTIVE DISCUSSED WITH PATIENT:YES HCP - ARNULFO TAVERAS [phone] [facility]JOR DIAGNOSTIC PROCEDURE SURGERIES "FLUID ON LEGS" DEC OR 2018 KIDNEY INFECTION 05/18/2019 SURGERY 09/20/20 REVIEW OF SYSTEMS CONSTITUTIONAL: ANY RECENT FEVER NO . CHILLS NO . WEIGHT CHANGE OF UNKNOWN REASONS NO . GASTROENTEROLOGY: NEW UNEXPLAINABLE CHANGES IN BOWEL CONTROL NO . CONSTIPATION NO . GENITOURINARY: ANY NEW CHANGE IN BLADDER CONTROL? NO . NEUROLOGY: NEW ONSET DIZZINESS OR NEUROLOGICAL CHANGES NOT MENTIONED NO . NEW NUMBNESS OR PAIN PATTERNS NOT MENTIONED AND PERTINENT TO TODAY'S VISIT NO . CARDIOLOGY: NEW CHEST PRESSURE NO . PATIENT DENIES NO . RESPIRATORY: UNEXPLAINABLE COUGH NO . NEW SHORTNESS OF BREATH NO . VITAL SIGNS WT 297.6 LBS, HT 61 IN, BMI 56.22 INDEX, BP 138/80 MM HG, HR 83 /MIN, RR 20 /MIN, TEMP 97.6 F, OXYGEN SAT % 98%, SAFE IN ENV? (Y/N) YES, NA INITIALS [place] 14:16T.CARINA ZULUAGA. EXAMINATION GENERAL EXAMINATION: GENERALAWAKE,ALERT ,PLEASANT . PSYCHAFFECT NORMAL . LUNGS:LUNG ARORA ARE CLEAR TO AUSCULTATION BILATERALLY. GOOD MOVEMENT OF AIR . HEART:S1, S2 IN A REGULAR RATE AND RHYTHM. NO SIGNIFICANT MURMURS, RUBS OR GALLOPS NOTED . ASSESSMENTS OTHER CHRONIC PAIN - G89.29 (PRIMARY) INTERVERTEBRAL DISC DISORDERS WITH RADICULOPATHY, LUMBAR REGION - M51.16 TREATMENT OTHER CHRONIC PAIN REFILL AMITRIPTYLINE HCL TABLET, 75 MG, 1 TABLET, ORALLY, ONCE A DAY, 30 DAYS, 30 TABLET, REFILLS 2 REFILL GABAPENTIN TABLET, 800 MG, 1 CAPSULE, ORALLY FOR PAIN, TID, 30 DAYS, 90 CAPSULE, REFILLS 2 REFILL ROBAXIN-750 TABLET, 750 MG, 1 TABLET, ORALLY, Q8H PRN, 30 DAYS, 90, REFILLS 2 REFILL LYRICA CAPSULE, 200 MG, 1 CAPSULE, ORALLY, Q8H TID MDD3, 30 DAYS, 90, REFILLS 2 REFILL SOMA TABLET, 350 MG, 1 TAB, ORALLY, TWO TIMES A DAY PRN FOR SEVERE PAIN EPISODES.#30 TAB SHOULD LAST 30 DAYS, 30 DAYS, 30, REFILLS 2 PAIN PROCEDURE LOGDATE OF PROCEDURE1PROCEDURE:LUMBAR EPIDURAL STEROID INJECTIONAMOUNT OF PRE SEDATEVALIUM 5MG, OXYCODONE 10MG, BENADRYL 25MGRESULT:NO IMPROVEMENT NOTES: ISTOP REGISTRY REVIEWED AND DEMONSTRATES COMPLLIANCE. PROCEDURE CODES FA211 ESTABILISHED PATIENT [facility] FACILITY CHARGE DISPOSITION & COMMUNICATION FOLLOW UP [address] LAI TO DISCUSS VERTIFLEX/MILD (REASON: LOW BACK PAIN) ELECTRONICALLY SIGNED BY STEPHAN DRAKE ON 10/31/2020 AT 09:21 AM EDT DISCLAIMER : THIS IS A VISIT SUMMARY EXTRACTED FROM THE [employer] CHART. IT IS NOT A COPY OF THE [employer] PROGRESS NOTE. [email or web address]
== END ==
LOC: M PAIN 14:30
PROVIDERS: ATTEND Nurse Practitioner Family
DX: M51.16 Intervertebral disc disorders with radiculopathy, lumbar region (principal); G89.29 Other chronic pain; E11.9 Type 2 diabetes mellitus without complications; K21.9 Gastro-esophageal reflux disease without esophagitis; F17.210 Nicotine dependence, cigarettes, uncomplicated; Z98.84 Bariatric surgery status; Z86.59 Personal history of other mental and behavioral disorders; Z88.2 Allergy status to sulfonamides; Z88.6 Allergy status to analgesic agent; E66.01 Morbid (severe) obesity due to excess calories; Z68.43 Body mass index [BMI] 50.0-59.9, adult; Z79.84 Long term (current) use of oral hypoglycemic drugs; Z79.899 Other long term (current) drug therapy

== ENCOUNTER → 2020-12-25 | Outpatient (CLI) | payer OTHER | LOC: M PAIN 14:00 | PROVIDERS: ATTEND Anesthesiology | DX: M48.062 Spinal stenosis, lumbar region with neurogenic claudication (principal); M51.16 Intervertebral disc disorders with radiculopathy, lumbar region; E11.9 Type 2 diabetes mellitus without complications; I10 Essential (primary) hypertension; E78.00 Pure hypercholesterolemia, unspecified; E66.9 Obesity, unspecified; K21.9 Gastro-esophageal reflux disease without esophagitis; Z98.84 Bariatric surgery status; F41.9 Anxiety disorder, unspecified; F17.210 Nicotine dependence, cigarettes, uncomplicated; Z68.43 Body mass index [BMI] 50.0-59.9, adult; Z79.84 Long term (current) use of oral hypoglycemic drugs; Z79.899 Other long term (current) drug therapy; Z88.2 Allergy status to sulfonamides; Z88.6 Allergy status to analgesic agent ==

== ENCOUNTER → 2021-01-02 | Outpatient (CLI) | payer OTHER | LOC: M LABSMTC 09:58 | PROVIDERS: ATTEND Anesthesiology | DX: Z11.52 Encounter for screening for COVID-19 (principal); Z20.822 Contact with and (suspected) exposure to COVID-19 ==

== ENCOUNTER → 2021-01-07 | Outpatient (CLI) | payer OTHER ==
[~2021-01-07] MED LIST changes: +ISOVUE-M 300 61% 15ML VIAL As Ordered ONE; +LIDOCAINE 1% SDV 30ML VIAL As Ordered ONE; +diazePAM 5MG TABLET As Ordered ONE; +diphenhydrAMINE 25MG CAP As Ordered ONE; +methylPREDNISolone SUSP 40MG/ML 1ML VIAL (DEPO MEDROL) As Ordered ONE; +oxyCODONE 5MG TAB As Ordered ONE
--- NOTE | 2021-01-07 14:01 | REP ---
INDICATION: LUMBAR EPIDURAL STEROID INJECTION. COMPARISON: None. TECHNIQUE: A single views. 16.2 seconds of fluoroscopy time is reported. FINDINGS: A single last image hold fluoroscopically obtained spot radiograph(s) of the lumbar spine document(s) needle position(s) and contrast injection associated with injection procedure. IMPRESSION: Procedural imaging. <Electronically signed by Caden Bui > 01/07/21 [id number]
== END ==
LOC: M PAIN 13:20
PROVIDERS: ATTEND Anesthesiology
DX: M48.062 Spinal stenosis, lumbar region with neurogenic claudication (principal); E11.9 Type 2 diabetes mellitus without complications; G47.30 Sleep apnea, unspecified; K21.9 Gastro-esophageal reflux disease without esophagitis; F17.210 Nicotine dependence, cigarettes, uncomplicated; Z98.84 Bariatric surgery status; Z86.59 Personal history of other mental and behavioral disorders; Z88.2 Allergy status to sulfonamides; Z88.6 Allergy status to analgesic agent; E66.01 Morbid (severe) obesity due to excess calories; Z68.43 Body mass index [BMI] 50.0-59.9, adult; Z79.84 Long term (current) use of oral hypoglycemic drugs; Z79.899 Other long term (current) drug therapy
CPT/HCPCS: 62323; J1030; Q9967

== ENCOUNTER → 2021-01-17 | Outpatient (CLI) | payer OTHER ==
[~2021-01-17] MED LIST changes: -ISOVUE-M 300 61% 15ML VIAL As Ordered ONE; -LIDOCAINE 1% SDV 30ML VIAL As Ordered ONE; -diazePAM 5MG TABLET As Ordered ONE; -diphenhydrAMINE 25MG CAP As Ordered ONE; -methylPREDNISolone SUSP 40MG/ML 1ML VIAL (DEPO MEDROL) As Ordered ONE; -oxyCODONE 5MG TAB As Ordered ONE
== END ==
LOC: M LABSMTC 10:38
DX: Z01.812 Encounter for preprocedural laboratory examination (principal); R63.5 Abnormal weight gain; Z98.84 Bariatric surgery status; Z11.52 Encounter for screening for COVID-19

== ENCOUNTER → 2021-01-31 | Outpatient (CLI) | payer OTHER ==
[2021-01-31 11:42] LABS: BASO # 0.1 10^3/uL (0.0-0.2); BASO % 0.5 % (0.0-1.0); EOS # 0.6 10^3/uL (0.0-0.5); EOS % 5.8 % (0.0-3.0); HEMATOCRIT 40.9 % (36.0-47.0); HEMOGLOBIN 13.6 g/dl (12.0-15.5); LYMPH # 4.5 10^3/uL (1.5-5.0); MEAN CORPUSCULAR HEMOGLOBIN 32.1 pg (27.0-33.0); MEAN CORPUSCULAR HGB CONC 33.3 g/dl (32.0-36.5); MEAN CORPUSCULAR VOLUME 96.5 fl (80.0-96.0); MONO # 0.5 10^3/uL (0.0-0.8); MONO % 4.7 % (2.0-8.0); NEUTROPHILS # 4.6 10^3/uL (1.5-8.5); NEUTROPHILS % 44.7 % (36.0-66.0); PLATELET COUNT, AUTOMATED 343 10^3/uL (150-450); RED BLOOD COUNT 4.24 10^6/uL (4.00-5.40); WHITE BLOOD COUNT 10.3 10^3/uL (4.0-10.0)
[2021-01-31 12:09] LABS: ALBUMIN 3.3 GM/DL (3.2-5.2); ALT/SGPT 17 U/L (12-78); BILIRUBIN,TOTAL 0.3 MG/DL (0.2-1.0); BLOOD UREA NITROGEN 11 MG/DL (7-18); CARBON DIOXIDE LEVEL 24 MEQ/L (21-32); CHLORIDE LEVEL 109 MEQ/L (98-107); CREATININE FOR GFR 0.78 MG/DL (0.55-1.30); GLOMERULAR FILTRATION RATE > 60.0 (>58); GLUCOSE, FASTING 127 MG/DL (70-100); POTASSIUM SERUM 4.1 MEQ/L (3.5-5.1); SODIUM LEVEL 141 MEQ/L (136-145); TOTAL PROTEIN 6.8 GM/DL (6.4-8.2)
== END ==
LOC: M LAB 09:17
DX: R63.5 Abnormal weight gain (principal); Z98.84 Bariatric surgery status

== ENCOUNTER → 2021-01-31 | Outpatient (CLI) | payer OTHER | LOC: M LABSMTC 10:08 | DX: R63.5 Abnormal weight gain (principal); Z98.84 Bariatric surgery status ==

== ENCOUNTER → 2021-02-20 | Outpatient (CLI) | payer OTHER ==
[~2021-02-20] MED LIST changes: +DOXY-443 PO; -DOXY1CAP62 PO
== END ==
LOC: M PAIN 11:00
PROVIDERS: ATTEND Anesthesiology
DX: G89.29 Other chronic pain (principal); M48.062 Spinal stenosis, lumbar region with neurogenic claudication; M51.16 Intervertebral disc disorders with radiculopathy, lumbar region; E11.9 Type 2 diabetes mellitus without complications; I10 Essential (primary) hypertension; E78.00 Pure hypercholesterolemia, unspecified; E66.9 Obesity, unspecified; K21.9 Gastro-esophageal reflux disease without esophagitis; F41.9 Anxiety disorder, unspecified; F17.210 Nicotine dependence, cigarettes, uncomplicated; Z79.84 Long term (current) use of oral hypoglycemic drugs; Z79.899 Other long term (current) drug therapy; Z88.2 Allergy status to sulfonamides; Z88.6 Allergy status to analgesic agent; Z68.43 Body mass index [BMI] 50.0-59.9, adult

== ENCOUNTER → 2021-03-11 | Outpatient (REF) ==
[2021-03-11 11:31] LABS: RSV AMPLIFICATION NEGATIVE (NEGATIVE)
== END ==
LOC: M LAB 09:01
DX: Z20.822 Contact with and (suspected) exposure to COVID-19 (principal)